=== PATIENT | female | born 1975 | race Caucasian/White ===

== ENCOUNTER → 2018-08-21 13:44 | Outpatient (CLI) | payer MEDICAID, SELFPAY ==
[2017-06-13 12:41] VITALS: BMI 36.0
--- NOTE | 2018-08-21 13:48 | RAD_ITS ---
STUDY: X-RAY - LEFT KNEE REASON FOR EXAM: Female, 43 years old. Pain TECHNIQUE: 5 view(s) of the knee. COMPARISON: 03/28/2015 FINDINGS: Spurring along the lateral femoral tibial compartment, femoral notch and tibial spine. Extensive lateral tilting of the patella. There is demineralization of osseous structures. Normal proximal tibiofibular articulation. There is mild degenerative arthrosis of the medial femorotibial compartment. There is mild degenerative arthrosis of the lateral femorotibial compartment. There is moderate degenerative arthrosis of the patellofemoral articulation. There is a soft tissue prominence in the suprapatellar region suggesting a small volume joint effusion. The soft tissue structures are unremarkable. RAD/Knee 4 or More Views IMPRESSION: Extensive tilting of the patella laterally with subluxation, significant degenerative changes of the lateral patellar femoral joint, small effusion without significant interval change. Electronically Signed: Marce Olivier MD at 4:30 EST , Service support ,
--- OUTSIDE RECORDS SUMMARY | 2018-10-16 18:20 | XMS RPT_ITS | Clinical Summary ---
:1975 Author Organization [employer] [facility], [facility] Address [address] [place] [address] Phone Care Team Providers Name Role Phone Lucretia Peña Unavailable Conditions or Problems Problem Name Problem Onset Status Entry Provider Comment Standard Annotate Code Date Date Description History of 30180835048 Active Linus Smiley History of total knee 05 (SNOMED 11/13 Ish total knee arthroplasty CT) arthroplasty Orthopaedic 556755127 Active Linus Smiley Aftercare aftercare (SNOMED CT) 11/13 Ish Knee pain, 55354073 Active Linus Smiley Knee pain right (SNOMED CT) 09/25 Ish OA of right 786857737 Active Linus Smiley Localized, knee (SNOMED CT) 09/25 Ish primary osteoarthritis Knee pain, 86383800 Resolved Taye A Knee pain right (SNOMED CT) 09/25 09/25 Millie DO Tobacco use 553953748 Active Taye A Tobacco user (SNOMED CT) 06/08 06/08 Millie DO COPD 66427151 Active Taye A Chronic (SNOMED CT) 06/08 06/08 [facility] obstructive DO lung disease Substance 59950057 Active Taye A Substance abuse abuse (SNOMED CT) 05/19 05/19 Millie DO Menorrhagia 003851705 Resolved Taye A Menorrhagia (SNOMED CT) 04/01 04/01 Millie DO Constipation 94223727 Active Taye A Constipation (SNOMED CT) 05/09 05/09 Millie DO Pelvic pain 25197029 Active Taye A Pain in pelvis (SNOMED CT) 05/09 05/09 Millie DO Obesity 960530120 Active Taye A Obesity (SNOMED CT) 04/01 04/01 Millie DO Menorrhagia 522878399 Removed Taye A Menorrhagia (SNOMED CT) 04/01 04/01 Millie DO Degenerative 59602776 Active Taye A Intervertebral disc (SNOMED CT) 04/01 04/01 Millie disc disorder disease, 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, with myelopathy myelopathy Biceps 268885907 Active Linus S Biceps tendinitis (SNOMED CT) 02/02 02/02 Ish tendinitis Rotator cuff S43.429A Active Lara E Sprain of (capsule) (ICD-10-CM) 01/24 01/31 Frase unspecified sprain rotator cuff capsule, initial encounter IMPINGEMENT, 726.2 Active Lara E Other SHOULDER (ICD-9-CM) 01/24 01/31 Frase affections of shoulder region, not elsewhere classified Shoulder 719.41 Active Sandra Stoner Pain in joint pain, left (ICD-9-CM) 01/24 01/24 Gaviria involving shoulder region OTHER 509714034 Active Linus Smiley Follow-up ORTHOPEDIC (SNOMED CT) 10/13 10/16 Ish orthopedic AFTERCARE assessment Unspecified 41466127 Active Linus Smiley Derangement of internal (SNOMED CT) 09/25 09/25 Ish knee derangement of knee OSTEOARTHRIT 684744457 Active Linus S Osteoarthritis IS, KNEE (SNOMED CT) 09/25 09/25 Ish of knee Knee pain, 01747242 Removed Linus S Knee pain right (SNOMED CT) 09/25 09/25 Ish Medications Medication Instructions Start Stop Generic Name NDC Provider Date Date AZITHROMYCIN 250 2 PO on day 1 AZITHROMYCIN 74758800770 Taye A MG TABS then 1 PO daily /11/02 Millie on days 2-5 DO GABAPENTIN 300 MG One tablet by GABAPENTIN 51501158435 Taye A CAPS mouth three Millie times daily as DO needed for pain CYCLOBENZAPRINE One tablet by CYCLOBENZAPRINE 84520961383 Taye A HCL 10 MG TABS mouth daily at HCL Millie night as needed DO for muscle pain COMMIT 2 MG LOZG 1 PO hourly as NICOTINE 04014902685 Taye A needed for POLACRILEX Millie cravings DO BUPROPION HCL ER One tablet by BUPROPION HCL 51752600094 Taye A (SMOKING DET) 150 mouth twice / (SMOKING DETER) Millie MG [id number] daily for DO smoking cessation OXYCODONE-ACETAMIN One tablet as OXYCODONE-ACETAMI 47035552143 Taye A OPHEN 10-325 MG [facility] 05/[facility] TABS hours for DO severe pain CYCLOBENZAPRINE 1-2 tablets CYCLOBENZAPRINE 23901499198 Taye A HCL 5 MG TABS three times a HCL day as needed DO OXYCODONE-ACETAMIN One tablet as OXYCODONE-ACETAMI 04901593759 Taye A OPHEN 10-325 MG needed every 04/16 NOPHEN Millie TABS hours for DO severe pain up to 5 tablets daily OXYCODONE-ACETAMIN One tablet by OXYCODONE-ACETAMI 05938464313 Taye A OPHEN 7.5-325 MG mouth every 04/06 NOPHEN Millie TABS hours as needed DO for severe pain NAPROSYN 500 MG One tablet by NAPROXEN 10507573897 Linus S TABS mouth Ish times daily NAPROSYN 500 MG One tablet by NAPROXEN 52112656370 Taye A TABS mouth 04/08 Millie times daily DO CYCLOBENZAPRINE 1-2 tablets CYCLOBENZAPRINE 78684677827 Taye A HCL 5 MG TABS three times 04/08 HCL Millie day as needed DO TRAMADOL HCL 50 MG One tablet by TRAMADOL HCL 93362797095 Taye A TABS mouth four Millie times daily DO TRAMADOL HCL 50 MG One tablet by TRAMADOL HCL 77231583755 Taye A TABS mouth 05/19 Millie times daily DO IBUPROFEN 200 MG 4 tablets three IBUPROFEN 27863873893 Taye A TABS times a day / Millie DO Medications Administered No information available. Allergies, Adverse Reactions, Alerts Allergy Name Reaction Description Start Date Severity Status Provider MICHAELLE Itchy rash Moderate Active Taye A Millie DO Results Date Name Value Unit Range Flag Description Lab Report: CBCD ABS PMNS 7.0 X10 3/UL {Cells}/uL 2.0-7.7 N Absolute Neutrophil count Lab Report: Prothrombin Time w/INR INR 0.9 international normalized ratio (INR) PT RATIO 12.3 SECONDS 11.7-14.9 prothrombin time, actual/normal, ratio Lab Report: Partial Thromboplast Time ACTIV PTT 33.0 s 24.1-36.2 activated partial thromboplastin time (aPTT) Lab Report: CBC W/Diff, Automated LYMPHCT AUTO 1.15 X10 3/UL 10*3/mm3 0.83-4.51 lymphocyte count, blood, automated ANC 3.4 X10 3/UL 10*3/mm3 2.0-7.7 neutrophil count, blood IMM GRANU % 0.000 % 0.0-0.9 immature granulocytes, percentage of total cells, blood BASOPHIL % 1.0 % 0-1 basophils as percent of blood leukocytes EOSINOPHIL % 4.2 % 0-5 eosinophils as percent of blood leukocytes MONOCYTE % 7.1 % 0-10 monocytes as percent of blood leukocytes LYMPHS % 22.1 % 19-41 lymphocytes as percent of blood leukocytes PMN % 65.6 % 47-70 neutrophils as percent of blood leukocytes Lab Report: Alcohol, Blood (Medical)-Serum ALCOHOL, BLD 6.0 mg/dL alcohol, blood Replaced Document: (P) ,Serum,hCG Quali. BETA-HCG QL NEGATIVE 0-9 Nonpreg beta HCG, serum, qualitative Lab Report: ,Serum,hCG Quali. BETA-HCG QN < 1 mIU/mL m[iU]/mL =>Qualitative beta HCG, serum, quantitative Lab Report: Urinalysis, Complete CAITLYN SED UR 3+ amorphous sediment, urine MUCUS URINE 0 SEEN <or=2+ mucus on urinalysis BACTURMICRO 0 SEEN /hpf /[HPF] None Seen bacteria, urine, microscopic EPI CELL UR 0-5 SEEN /[LPF] 5-10 epithelial cells, urine RBCS MICRO U 0 SEEN 0-5 RBC urine by microscopy U/A,WBS,C&S 0 SEEN 0-5 Urinalysis, white blood cells, culture and sensitivity Lab Report: Urine Drug Screen (VISTA) THC URINE POSITIVE ng/mL < 50 ng/mL H cannabinoid screen, urine PHENCY SCR U NEGATIVE < 25 ng/mL phencyclidine screen, urine OPIATES UR POSITIVE < 300 ng/mL H opiates, urine, semiquantitative METHADONEURN NEGATIVE < 300 ng/mL Methadone screen, urine ECSTASYURINE NEGATIVE < 500 ng/mL Ecstasy (MDMA) Screen, urine COCAINE UR POSITIVE < 300 ng/mL H cocaine, urine BENZODIAZ UR NEGATIVE < 200 ng/mL benzodiazepine screen, urine BARBITURA UR NEGATIVE < 200 ng/mL barbiturates screen, urine AMPHETAMI UR NEGATIVE <1000 ng/mL amphetamine screen, urine Lab Report: Urinalysis, Routine (Dipstick) WBC DIPSTK U Negative Negative leukocyte esterase, urine, by dipstick OCC BLD UR Negative Negative Occult Blood, urine NITRITE UA Negative Negative Nitrite Urine UROBILIURDIP Normal mg/dL Normal urobilinogen, urine, by dipstick PROTEIN, URN Negative Negative Albumin [Presence] in Urine PH URINE 6.0 5.0 - 8.0 pH, urine, semiquantitative SPEC GR URIN 1.015 1.002-1.030 specific gravity, urine KETONES URN Negative Negative ketones, urine, by test strip BILIRUBIN UR Negative Negative bilirubin, urine GLUCOSE UA Normal mg/dL Normal Glucose Urine CLARITY UR Clear Clear clarity, urine, point UA COLOR Yellow Yellow urine color Microbiology: MRSA/SAID SCREEN [id number] . GE use only - for [employer] import when terms are not otherwise specified Lab Report: CBC-Complete Blood Cnt No Diff MPV 9.3 fL 6.2-12.0 mean platelet volume PLATELETS 294 10*3/mm3 150-450 platelet count RDW-SD 46.9 fL 35.1-43.9 H red blood cell distribution width, size density RDW 13.5 % 11.6-14.6 red blood cell distribution width MCHC RBC 33.1 G/GL g/dL 32-36 mean corpuscular hemoglobin concentration, RBC MCH 31.8 pg 27.0-32.0 mean corpuscular hemoglobin, RBC MCV 96.1 fL 81-99 mean corpuscular volume, RBC HCT 36.9 % 37-47 L hematocrit, blood HGB 12.2 g/dL 12.0-15.0 hemoglobin, blood RBC M/UL 3.84 10*6/uL 4.2-5.4 L red blood count WBC BLOOD 14.6 10*9/L 4.4-11.0 H leukocyte (white blood cells) count, blood Lab Report: Basic Metabolic Profile (BMP) ANION GAP 9 5-15 anion gap, serum CO2 27.0 mmol/L 21.0-32.0 carbon dioxide, venous blood CHLORIDE 98 mmol/L 98-107 chloride, serum POTASSIUM 3.7 mmol/L 3.5-5.1 potassium, serum SODIUM 134 mmol/L 136-145 L sodium, serum CALCIUM 7.7 mg/dL 8.5-10.1 L calcium, serum BUN/CREAT 12.2 RATIO 10-20 urea nitrogen/creatinine ratio, serum CCVCREABSA 92.00 mL/min calculated corrected value of creatinine clearance with body surface area GFRAA 99 mL/min >60 Glomerular Filtration rate GFR EST 82 mL/min >60 estimated glomerular filtration rate CREATININE 0.82 mg/dL 0.55-1.02 creatinine, serum BUN 10 mg/dL 7-18 urea nitrogen, blood GLUCOSE SER 109 mg/dL 70-110 blood glucose Office Visit MEDS REVIEW Done Documentation of current medications (procedure) 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 Dietary management education, guidance, and counseling (procedure) SMOK ADVICE yes Smoking cessation education (procedure) ORALTOBACUSE Never Tobacco smoking status NHIS SMOK STATUS Current every day smoker Tobacco use [facility] Plan of Care Type Date Detail Referral Transition of Care Florecita Johnson MD, [address] [facility], [address], [place], [address] Referral Transition of Care Florecita Johnson MD, [address] [facility], [facility] [address], [place], [address] Referral Physical [facility], [address] [place] [address], [address] Referral [facility] Therapy [facility], [address] [place] [address], [address] Referral [facility] Therapy [facility], [address] [place] [address], [address] Referral Physical Therapy [facility] [address] [place] [address], [address] Referral Pain Management Traci Solano, [address] [place] [address], [address], [place], [address] Referral [facility] Therapy [facility], [address] [place] [address], [address] Pending order X-Ray, Knee Pending order X-Ray, Knee Pending order X-Ray, Knee Pending order MRI Joint Upper Extremity Pending order X-Ray, Shoulder Pending order X-Ray, Knee Procedures Code Procedure Name Date Entry Date CPT-19135 X-Ray, Knee Pain Management Pain Management Physical Therapy Physical Therapy General CPT-57016 MRI Joint Upper Extremity CPT-06190 X-Ray, Shoulder CPT-93524 Arthrocentesis, aspiration/injection; major joint shoulder, hip, knee CPT-27453 X-Ray, Knee Vital Signs Date Name Value Unit Description BMI (Body Mass Index) 32.63 kg/m2 Body Mass Index [Ratio] Body Temperature 98.4 [degF] temperature E&M BP Diastolic 82 mm[Hg] blood pressure, diastolic - 8462-4 BP Systolic 136 mm[Hg] blood pressure, systolic - 8480-6 Heart Rate 70 /min pulse rate E&M - 8867-4 Respiratory Rate 16 /min respiratory rate E&M - 9279-1 Weight Measured 214.6 [lb_av] weight E&M - 3141-9 BSA (Body Surface Area) 2.14 body surface area O2 % BldC Oximetry 100 % oxygen saturation, oximetry Height 68 [in_us] height E&M - 8302-2
--- OUTSIDE RECORDS SUMMARY | 2018-10-16 18:20 | XMS RPT_ITS ---
:1975 Author Organization [facility] Care Team Providers Name Role Phone MARQUES OJEDA MD Attending Unavailable DR. DARREL PINTO DO Primary Care Unavailable Samantha Allen Attending Unavailable Darrel Pinto Referring Unavailable Samantha Allen Attending Unavailable Samantha Allen Referring Unavailable Darrel Pinto Primary Care Unavailable PROBLEMS PROBLEMS DATE TYPE CONDITION / CODE ATTENDING STATUS SOURCE 08/21/2018 Unknown M25.562 - Pain in [place], Active [place] left knee / [facility] M25.562(ICD-10) Hospital Repository 08/21/2018 Unknown M17.12 - [place], Active [place] Unilateral [facility] osteoarthritis, Repository left knee / M17.12(ICD-10) PROCEDURES PROCEDURES No Procedure Records FoundRESULTS RESULTS ORTHOPEDIC VISIT Observed: 09/03/2018 Status: F Source: [place] REPORT 5:46 PM [facility] REPOSITORY [facility] [address] [place] [address] Road [address] [place] [address] OFFICE VISIT Date of Service: 08/21/18 MR#: [id number] Acct: [id number] Name: KATARZYNA GRIMM Rep #: [id number] : 1975 Provider: Samantha Allen DO Age/Sex: 43/F Location: [facility] Status: Signed Intake Intake Visit Reasons: LEFT KNEE Is patient in pain?: Yes Allergies hydrocodone bitartrate [From Vicodin] Allergy (Verified 08/21/18 13:37) Itching PFSH Social History Smoking Status: Never smoker HPI LEFT KNEE: Details: KATARZYNA GRIMM is a 43 year old F here today for left knee pain. She states she has had knee pain for the past 6 weeks. She denies any known injury. Patient has increased pain over her anterior knee and around her patella. Patient has popping and clicking. She is unable to squat or kneel due to her pain. Patient denies any xrays, MRI, injections or physical therapy. She states that she takes ibuprofen for pain. ROS Const Reports system reviewed and no additional complaints, except as docu Eyes Reports system reviewed and no additional complaints, except as docu ENT Reports system reviewed and no additional complaints, except as docu Card Reports system reviewed and no additional complaints, except as docu Resp Reports system reviewed and no additional complaints, except as docu GI Reports system reviewed and no additional complaints, except as docu Reports system reviewed and no additional complaints, except as docu Musc Reports joint pain, Reports joint swelling, Reports limited joint movement Skin/Breast Reports system reviewed and no additional complaints, except as docu Neuro Yes system reviewed and no additional complaints, except as docu Psych Reports system reviewed and no additional complaints, except as docu Endo Reports system reviewed and no additional complaints, except as docu Ortho Exam Left Knee Skin/Wound: Yes CDI Contralateral Normal: No Swelling: Yes Homans Sign: No Knee ROM: Yes ROM-Extension -20 to 0, Yes ROM-Flexion 0-140 (120) Examination: Yes med jt line tenderness, No Balaji's Test, Yes Lat jt line tenderness, Yes Pain with flexion, No Crepitus Office Procedures Ortho Injections Injections Yes Knee Left Details: Obtained consent for injection. Under sterile conditions, aspirated 4cc and injected the patients left knee with a 10cc cocktail of 8cc bupivacaine and 2cc kenalog . The patient tolerated the injection well without any noted complication. Patient should call our office if redness develops, pain worsens or if they have any concerns. Office Freddys Mayra Performing Provider: Samantha Allen DO Administered by: Samantha Allen DO on 08/21/18 14:00 Dose Route Admin Location Lot Number Expiration DateNDC Sewage Screen Operator 80 mg Intra-Articularleft knee [id number] 08/23/19 4431-2077-31 [facility] Assessment AND Plan 1. Primary osteoarthritis of left knee M17.12 Plan xrays show left knee oa, see chart for further details. Explained that her treatment options are do nothing, injections, PT or bracing. Reviewed the risks and benefits of injection today. Patient elects to proceed with injection today. Explained that Dr Orozco can consult with her if the injection fails. Gave the [facility] knee program for HEP. Follow up as needed or sooner if pain, swelling, numbness or associated symptoms, or concerns develop. All questions answered. Patient in agreement of plan. Orders Orders: Medications Discontinued: Kenalog Discontinued Reason: Office Medic80 mg (2 mL) Intra-Articular ONCE 2 mL 0RF NS ation has been Documented as given Plan Detail Other Orders Orders: Coding Level of Care Code Off vis,est,level 4 Diagnoses Primary osteoarthritis of left knee M17.12 Osteoarthritis type: primary Additional Codes railroad hand.knee (01801) 09/03/18 6616 <Electronically signed by Samantha Allen DO> Date Samantha Allen DO Cosigner Signature: Date (if applicable) CC: KNEE 4 OR MORE Observed: 08/21/2018 Status: F Source: MARIAMA RAPP 1:48 PM [facility] REPOSITORY [facility] Imaging Services [facility] [place] [address] Knee 4 or More Views MR#: [id number] Acct: [id number] Name: KATARZYNA GRIMM Rep #: [id number] : 1975 F 43 From: Marce Olivier MD PCP: Darrel Pinto DO Status: REG CLI Study: Knee 4 or More Views Date of Exam: 08/21/18 Exam# [id number] Ordering Dr: Samantha Allen DO STUDY: X-RAY - LEFT KNEE REASON FOR EXAM: Female, 43 years old. Pain TECHNIQUE: 5 view(s) of the knee. COMPARISON: 03/28/2015 FINDINGS: Spurring along the lateral femoral tibial compartment, femoral notch and tibial spine. Extensive lateral tilting of the patella. There is demineralization of osseous structures. Normal proximal tibiofibular articulation. There is mild degenerative arthrosis of the medial femorotibial compartment. There is mild degenerative arthrosis of the lateral femorotibial compartment. There is moderate degenerative arthrosis of the patellofemoral articulation. There is a soft tissue prominence in the suprapatellar region suggesting a small volume joint effusion. The soft tissue structures are unremarkable. RAD/Knee 4 or More Views IMPRESSION: Extensive tilting of the patella laterally with subluxation, significant degenerative changes of the lateral patellar femoral joint, small effusion without significant interval change. Electronically Signed: Marce Olivier MD at 4:30 EST , Service support , CC: Samantha Allen DO; Darrel Pinto DO Car Sealer: Signed ALLERGIES ALLERGIES DATE TYPE / CODE NAME / CODE REACTION SEVERITY SOURCE 08/21/2018 Drug hydrocodone Itching Unknown [place] Allergy/416 bitartrate/[id number] [facility] 393143[facility] ED CT) Repository ENCOUNTERS ENCOUNTERS ADMIT/DISCHARGE ACCOUNT NUMBER ADMITTING ENCOUNTER LOCATION SOURCE CLASS 08/21/2018 [id number] Ambulatory [place] Mari[facility] ding:HPRAD Repository 08/21/2018/08/21/20 [id number] [place] [address] [facility] Repository 08/12/2018/08/12/20 [id number] Emergency BBuilding:ER [address] Repository PAYERS PAYERS ENCOUNTER GUARANTOR PAYER SUBSCRIBER SOURCE 08/21/2018 KATARZYNA Osorio Primary KATARZYNA Osorio [place] [id number] [place] Insurance:CARESOURCEP WEAVERDOB: [facility] Number: [id number] [id number] Repository [address]Omz: (330) Date:2018-08-21P O [phone] () [address]ATTN: [place] [address]JY: 08/21/2018 Secondary NOT GIVENUNK [place] Insurance:SELF PAY [facility] [place] Number: Effective Repository Date:2018-08-21 08/21/2018 KATARZYNA Osorio [facility] KATARZYNA [facility] [id number] [place] Insurance:CARESOURCEP WEAVERDOB: [facility] Number: [id number] [id number] Repository [address]Ztu: ([phone]) Date:2018-07-30 O [phone] () [address]ATTN: [place] [address]CU: 08/21/2018 Secondary NOT GIVENUNK [place] Insurance:SELF PAY [facility] [place] Number: Effective Repository Date:2018-08-21 08/12/2018 KATARZYNA Osorio [facility] Insurance:CARESOURCE WEAVERDOB: [facility] [id number] [employer] Number: [id number] Repository [place] [id number] 2 [place] [facility] [place] Date:2018-08-12 - [place], [place] [address]Ecf: [phone] [id number]: () Name:[phone] [place] [address] ()Tel: [phone]: () [phone]
== END ==
PROVIDERS: Family Provider Family Medicine; PCP Family Medicine; Referring Provider Orthopaedic Surgery; Visit Provider Orthopaedic Surgery
DX: M25.562 Pain in left knee (principal)
CPT/HCPCS: 73564

== ENCOUNTER 2019-02-13 01:37 | Inpatient (IN) | payer SELFPAY ==
[2019-02-13] VITALS (15 sets, daily range): BP systolic 122–144; BP diastolic 78–86; PULSE 66–85; RESP 15–21; TEMP 36.4–36.9; O2SAT 96–100; BMI 32.0
--- NOTE | 2019-02-13 01:45 | ED.RN ---
CALLED FOR EKG PER RN REQUEST, PULLED OLD EKGS FOR
--- NOTE | 2019-02-13 01:54 | EKG12_ITS ---
Test Reason : CHEST PAIN Blood Pressure : / mmHG Vent. Rate : 080 BPM Atrial Rate : 080 BPM P-R Int : 120 ms QRS Dur : 108 ms QT Int : 380 ms P-R-T Axes : 082 078 064 degrees QTc Int : 438 ms Normal sinus rhythm Normal ECG Confirmed by HANNAH HERMOSILLO ([id number]), development editor DALILA RICE ([id number]) on 02/19/2019 8:48:18 AM Referred By: CHULA Confirmed By:HANNAH HERMOSILLO
--- NOTE | 2019-02-13 01:54 | RAD_ITS ---
STUDY: X-RAY CHEST REASON FOR EXAM: Female, 44 years old. Chest pain. TECHNIQUE: PA and lateral views of the chest. COMPARISON: Chest radiograph dated May 07, 2017. FINDINGS: Cardiac monitoring leads are present. The lungs are clear and hyperexpanded. There is no demonstrated pleural abnormality. Normal size heart. Normal mediastinum and lissa. There is prominence of the pulmonary hilar arteries without peripheral pulmonary vascular congestion, suggesting pulmonary hypertension. There is atherosclerotic tortuosity of the aortic arch and descending thoracic aorta. There is demineralization of the osseous structures. Normal visualized ribs, clavicles, and shoulders. There is no demonstrated abnormality of the visualized soft tissue structures of the upper abdomen. RAD/Chest PA and Lateral IMPRESSION: No radiographic evidence of acute cardiopulmonary disease. Electronically Signed: Dary Hadley MD at 3:23 EDT , Service support ,
[2019-02-13] MEDS: LORazepam 2 MG/ML Syringe IV (02:05)
[2019-02-13] MEDS: Aspirin 81 MG TAB.CHEW 324 MG PO (02:05)
[2019-02-13 02:15] LABS: Absolute Lymphocyte Count 2.59 X10^3/ul (0.83-4.51); Basophil# 0.06 X10^3/uL; Basophil% 0.8 % (0-1); Eosinophils% 2.7 % (0-5); Hematocrit 37.3 % (37-47); Hemoglobin 13.3 g/dl (12.0-15.0); Lymphocyte # 2.59 X10^3/ul (4.0); Mean Corp Hgb Conc 35.7 g/gl (32-36); Mean Corpuscular Hgb 32.4 pg (27.0-32.0); Mean Platelet Vol. 10.1 fl (6.2-12.0); Monocyte# 0.57 X10^3/uL; Monocyte% 7.7 % (0-10); Neutrophil # 3.97 X10^3/uL (2.7-7.7); Neutrophil % 53.7 % (47-70); Platelet Count 221 K/mm3 (150-450); RBC Distribution Width CV 12.4 % (11.6-14.6); RBC Distribution Width SD 40.8 fl (35.1-43.9); White Blood Count 7.4 K/mm3 (4.4-11.0)
[2019-02-13 02:16] LABS: POSITIVE COUNT NO; POSITIVE DIFFERENTIAL NO; POSITIVE MORPHOLOGY NO
[2019-02-13 02:28] LABS: AST(SGOT) 12 U/L (15-37); Alanine Aminotransfer ALT/SGPT 16 U/L (13-56); Albumin, Serum 3.3 g/dL (3.2-5.0); Alkaline Phosphatase 89 U/L (45-117); Anion Gap 7 (5-15); BUN 14 mg/dL (7-18); BUN/Creat Ratio 18.6 RATIO (10-20); Bilirubin, Direct 0.13 mg/dL (0.00-0.30); Calcium,Total 8.2 mg/dL (8.5-10.1); Chloride 108 mmol/L (98-107); Creatinine, Serum 0.75 mg/dL (0.55-1.02); EST Glomerular Filtration Rate 90 mL/min (>60); Est Glom Filt Rate - Afr Amer 108 mL/min (>60); Estimated Creatinine Clearance 97.57 ml/min; Globulin 3.2 g/dL (2.2-4.2); Glucose 119 mg/dL (74-106); Potassium 3.5 mmol/L (3.5-5.1); Protein, Total 6.5 g/dL (6.4-8.2); Sodium Level 140 mmol/L (136-145)
[2019-02-13 02:42] LABS: Alcohol, Blood (Medical)-Serum < 3.0 mg/dL
--- NOTE | 2019-02-13 02:44 | ED.VISSUMM ---
- ER Visit Summary Date of Service: 02/13/19 Chief Complaint: Chest pain History of Present Illness: The patient is a 44 F who presents with chest pain. This began about 18 hours before presentation. She states she first noticed pain around 9 AM yesterday. She describes it as a heaviness in the center of her chest. She also reports nausea and dry heaving and diarrhea. She is an alcoholic and normally drinks 20-30 beers a day. Her last drink was 9 AM yesterday. She also had reported possible seizure. She states that she woke up on the floor. However this was actually prior to her most recent drink and she states she drank normally the day before and that night. Physical Examination: Afebrile vitals normal Patient tremulous and anxious Mild diaphoresis Heart regular rate and rhythm Lungs clear Abdomen soft 2+ radial pulses Test Results: EKG shows sinus rhythm at a rate of 80. Alcohol is negative. CBC BMP hepatic function unremarkable and troponin is negative. Chest x-ray shows no acute process. Emergency Department Course and Treatment: Work-up as above unremarkable. Patient does appear to be in alcohol withdrawal. Her CIWA score is 22. I do feel she requires medical hospitalization for alcohol withdrawal. Patient will be discussed with the hospitalist and admitted. Treatment Plan: [] Disposition: Admit Impression: Alcohol withdrawal Chest pain This note was generated with [employer] dictation software. It may contain incorrect words, spelling, and punctuation that were not noted in review of the chart prior to signing ED Disposition - Plan for ED Patient: Referrals: Taye Pinto DO [Primary Care Provider] -
--- NOTE | 2019-02-13 03:22 | HP.PCM_ITS ---
Problem List (1) Chest pain Status: Acute (2) Dental abscess Status: Resolved (3) Suicidal ideation Status: Resolved (4) Depression Status: Chronic (5) Alcohol withdrawal Status: Acute (6) Alcohol abuse Status: Chronic History of Present Illness Date of Admission: 02/13/19 Chief Complaint: Chest pain with alcohol withdrawal symptoms The patient is a 44 year old F with history of severe alcohol use and dependence about 20-30 beers daily, last drink was 9 AM on 02/12 came to ER initially with chest pain, persistent, midsternal with radiation to back. It was soon found that patient is in alcohol withdrawal with nausea, dry heaving and diarrhea. She also reported possible seizure. This all history is from the ER physician note and RN who took care of patient. As by the time I went to see the patient, she was already given Ativan and sedated. Patient hardly wakes up with a strong voice and tactile stools but soon falls to sleep. She was last admitted in 2017 for alcohol withdrawal when she left the hospital peripheral IV line and montserrat Story was called. On she herself removed IV line and was located by the police walking on the street. She has history of multiple ER visits for suicidal ideation, depression and alcohol use and withdrawal. Past Medical History Past Medical History (Chronic Problems): Chronic Problems Depression (Chronic) Alcohol abuse (Chronic) Allergies hydrocodone bitartrate [From Vicodin] Allergy (Verified 02/13/19 01:41) Itching Home Medications: Ambulatory Orders Medication Instructions Recorded NK 02/13/19 Surgical History: cholecystectomy, - - section. 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 Alcohol withdrawal syndrome VTE Information - Inpt Only VTE Present on Admission: No VTE Mechan Device Prophylaxis: None VTE Pharm Prophylaxis ordered?: Yes Patient Problems: Active and Suspected Problems Chest pain (Acute) - Physical Exam General: - - Sedated with Ativan. Obtunded HEENT: Atraumatic, PERRLA, EOMI, Normocephalic Oral: Dry Mucosa Neck: Supple, No JVD, Negative Carotid Bruits Lungs: Clear to auscultation, Normal air movement, No rhonchi, No wheeze, No rales Cardiovascular: Regular rate, Regular Rhythm, Normal S1, Normal S2, No murmurs Abdomen: Bowel Sounds Present, Soft, Non Tender, Non-Distended Extremities: No edema, Capillary Refill Less than 3 Seconds Skin: No rashes, No breakdown Musculoskeletal: No Tenderness to Palpation of Joints or Extremities Neurological: Cranial nerves II-XII grossly intact Psych/Mental Status: Agitated, Anxious, Depressed, Restless Vital Signs Temp Pulse Resp BP Pulse Ox 98.2 F 78 19 H 138/80 H 100 02/13/19 01:38 02/13/19 03:00 02/13/19 03:00 02/13/19 03:00 02/13/19 03:00 Oxygen Flow Rate (L/min) 2 Oxygen Delivery Method Nasal Cannula Weight: 210 lb 12.191 oz Body Mass Index (BMI) 32.0 Laboratory Tests Past 24 Hrs 02/13/19 02/13/19 02/13/19 01:50 01:50 02:09 WBC 7.4 RBC 4.10 L Hgb 13.3 Hct 37.3 MCV 91.0 MCH 32.4 H MCHC 35.7 RDW 12.4 RDW Differential 40.8 Plt Count 221 MPV 10.1 Immature Gran % (Auto) 0.100 Neut % (Auto) 53.7 Lymph % (Auto) 35.0 [place] % (Auto) 7.7 Eos % (Auto) 2.7 Baso % (Auto) 0.8 Absolute Neuts (auto) 4.0 Absolute Lymphs (auto) 2.59 Total Counted Not Reportable Sodium 140 Potassium 3.5 Chloride 108 H Carbon Dioxide 25.0 Anion Gap 7 BUN 14 Creatinine 0.75 Estim Creat Clear Calc 97.57 Est GFR (MDRD) Af Amer 108 Est GFR (MDRD) Non-Af 90 BUN/Creatinine Ratio 18.6 Glucose 119 H Calcium 8.2 L Total Bilirubin 0.40 Direct Bilirubin 0.13 AST 12 L ALT 16 Alkaline Phosphatase 89 Troponin I < 0.015 Total Protein 6.5 Albumin 3.3 Globulin 3.2 Ethyl Alcohol < 3.0 Assessment/Plan All Active Problems Chest pain (Acute) Dental abscess (Resolved) Suicidal ideation (Resolved) Alcohol withdrawal (Acute) The patient is a 44 year old F with history of severe alcohol use and dependence about 20-30 beers daily, last drink was 9 AM on 02/12 came to ER initially with chest pain, persistent, midsternal with radiation to back. It was soon found that patient is in alcohol withdrawal with nausea, dry heaving and diarrhea. She also reported possible seizure. In ED, she was found to have CIWA score 22. EKG shows normal sinus rhythm at 80 bpm with no significant change from previous EKG of May 07, 2017. Troponin is normal. 1. Acute alcohol withdrawal syndrome and seizure with history of chronic alcohol use and dependence: Patient is being admitted in PCU as she had chest pain. On CIWA protocol with Ativan as needed and Librium p.o. schedule and then taper as per [facility] protocol. On IV fluid normal saline. Repeat electrolytes tomorrow morning. GGT ordered. Right upper quadrant sonogram ordered. 2. Atypical chest pain, persistent most probably related to anxiety/panic attack: Serial troponin enzymes. 2D echo is ordered patient is chronic alcoholic with dependence and to rule out wall motion abnormality. Patient is is in alcohol withdrawal and not stable and cognitive intact for stress test 3. Alcohol withdrawal seizure: Ativan protocol. 4. Anxiety, depression with history of suicidal ideation in the past. Consult [facility] correctional case manager, Lara. Patient will need further rehab. Patient relapsed after she was last admitted in 2016 for alcohol withdrawal syndrome. DVT prophylaxis: On Lovenox 40 mg subcu daily. Discontinue if platelet count drops less than 50,000 or hemoglobin less than 8 g% Code Visit Inpatient E&M: 36250 Init Hosp L3
--- NOTE | 2019-02-13 03:29 | EKG12_ITS ---
Test Reason : CP ADMIT Blood Pressure : / mmHG Vent. Rate : 071 BPM Atrial Rate : 071 BPM P-R Int : 126 ms QRS Dur : 100 ms QT Int : 380 ms P-R-T Axes : 076 076 058 degrees QTc Int : 412 ms Normal sinus rhythm Normal ECG When compared with ECG of 13-FEB-2019 01:42, MANUAL COMPARISON REQUIRED, DATA IS UNCONFIRMED Confirmed by KAROLINA IRELAND, RONALD ([id number]), editor continuity and script JESSE ROMERO ([id number]) on 02/18/2019 12:07:36 PM Referred By: DR SILVERIO Confirmed By:RONALD TURCIOS MD
[2019-02-13 03:45] LABS: Internal QC Validated? YES +Cl - CLEAR BKGD; Pregnancy, Serum, hCG Quali. NEGATIVE Negative
[2019-02-13] MEDS: 0.9% Normal Saline 1,000 ML 100 ML IV ×2 (04:13→14:28)
--- NOTE | 2019-02-13 04:22 | NURSING ---
This RN was unable to assess patients CIWA due to her not being able to stay awake long enough to answer questions or assess patient.
[2019-02-13] MEDS: chlordiazePOXIDE 25 MG Capsule 50 MG PO ×3 (04:29→15:15)
[2019-02-13 05:13] LABS: Absolute Lymphocyte Count 2.47 X10^3/ul (0.83-4.51); Absolute Neutrophil Count 3.3 X10^3/uL (2.0-7.7); Basophil# 0.05 X10^3/uL; Basophil% 0.8 % (0-1); Eosinophil# 0.23 X10^3/uL; Eosinophils% 3.5 % (0-5); Hematocrit 36.9 % (37-47); Hemoglobin 12.8 g/dl (12.0-15.0); Lymphocyte # 2.47 X10^3/ul (4.0); Lymphocyte % 37.4 % (19-41); Mean Corp Hgb Conc 34.7 g/gl (32-36); Mean Corpuscular Hgb 31.8 pg (27.0-32.0); Mean Corpuscular Volume 91.8 fL (81-99); Mean Platelet Vol. 9.7 fl (6.2-12.0); Monocyte# 0.58 X10^3/uL; Monocyte% 8.8 % (0-10); Neutrophil # 3.25 X10^3/uL (2.7-7.7); Neutrophil % 49.2 % (47-70); Platelet Count 191 K/mm3 (150-450); RBC Distribution Width CV 12.7 % (11.6-14.6); RBC Distribution Width SD 41.9 fl (35.1-43.9); Red Blood Count 4.02 M/mm3 (4.2-5.4); White Blood Count 6.6 K/mm3 (4.4-11.0)
[2019-02-13 05:14] LABS: POSITIVE COUNT NO; POSITIVE DIFFERENTIAL NO; POSITIVE MORPHOLOGY NO
[2019-02-13 05:24] LABS: Prothrombin Time (Protime)PT. 13.4 SECONDS (11.7-14.9)
[2019-02-13 05:38] LABS: Cholesterol 147 mg/dL (200); GGTP 16 U/L (5-55); High Density Lipoprotein 49 mg/dL; Magnesium 2.4 mg/dL (1.6-2.6); Thyroid Stim Hormone (TSH) 1.51 uIU/mL (0.358-3.74); Triglycerides 114 mg/dL; Very Low Density Lipoprotein 23 mg/dL (5-40)
--- NOTE | 2019-02-13 05:55 | US_ITS ---
STUDY: ABDOMINAL ULTRASOUND - RIGHT UPPER QUADRANT REASON FOR VISIT: Female, 44 years old. History of alcoholic hepatitis. TECHNIQUE: Ultrasound evaluation of the right upper quadrant was performed with real-time and static sharma-scale imaging. TECHNICAL QUALITY: Adequate. COMPARISON: None. FINDINGS: Liver: The liver measures 13.1 cm. There is increased echogenicity consistent with fatty infiltration. The bile ducts are within normal limits. There is hepatic color flow. The direction of portal flow is hepatopetal. There is no demonstrated mass lesion. Gallbladder: The patient is status post cholecystectomy. Common Bile Duct (C.B.D.): The common bile duct is dilated and measures 9.8 mm. Pancreas: Normal size of the head, body and tail of the pancreas. There is normal echogenicity of the pancreas. There is no demonstrated pancreatic mass or cyst. Right Kidney: Normal size of the right kidney. The right kidney measures 10.7 cm x 4.4 cm x 4.4 cm. Normal renal cortex. The right cortex measures 1.3 cm. There is no demonstrated renal mass or cyst. There is no right hydronephrosis. US/Abdomen Limited IMPRESSION: Heterogeneous appearance of the liver. Status post cholecystectomy. Dilated common bile duct. Electronically Signed: David Laird, at 10:57 EDT , Service support ,
--- NOTE | 2019-02-13 05:55 | ECHOD_ITS ---
Reason For Study: Chest Pain Procedure This was a 2D Doppler, Color Flow transthoracic echocardiogram. Technically difficult study, patient was unable to hold still for testing. The study was technically difficult. Exam performed portable in patient room. Left Ventricle Normal LV size. Left ventricular systolic function is normal. The estimated ejection fraction is 60 %. No evidence for diastolic dysfunction. No regional wall motion abnormalities noted. Right Ventricle Normal RV size. Normal systolic function. Atria Normal left atrium. Normal right atrium. No doppler evidence for ASD. Mitral Valve There is no mitral annular calcification. Normal mitral valve. Trivial mitral valve insufficiency. Tricuspid Valve Normal tricuspid valve. Trivial tricuspid valve insufficiency. Right ventricular systolic pressure estimated to be 29 mmHg. Aortic Valve Trisinus/trileaflet aortic valve. Normal aortic valve. Pulmonic Valve The pulmonic valve is not well visualized. Great Vessels The aortic root is not well visualized. Pericardium/Pleural No pericardial effusion. MMode/2D Measurements & Calculations LVIDd: 4.7 cm IVSd: 1.1 cm LA dimension: 2.9 cm LVIDs: 3.1 cm LVPWd: 0.93 cm FS: 33.4 % LAV(MOD-sp4): 27.6 ml LA A4 area: 13.6 cm2 RA A4 area: 12.2 cm2 Time Measurements MV dec time: 0.19 sec Doppler Measurements & Calculations MV E max harjit: 87.2 cm/sec Lat Peak E' Harjit: 14.5 cm/sec Med Peak E' Harjit: 12.8 cm/sec MV A max harjit: 73.2 cm/sec E/E' lat: 6.0 E/E' med: 6.8 MV E/A: 1.2 MV V2 max: 102.1 cm/sec MV P1/2t max harjit: 101.1 cm/sec Ao V2 max: 126.2 cm/sec MV max P.2 mmHg MV P1/2t: 114.0 msec Ao max P.4 mmHg MV V2 mean: 62.0 cm/sec MV dec slope: 259.9 cm/sec2 MV mean P.8 mmHg MVA(P1/2t): 1.9 cm2 MV V2 VTI: 31.9 cm LV V1 max: 98.9 cm/sec PA V2 max: 88.6 cm/sec TR max harjit: 253.3 cm/sec LV V1 max P.9 mmHg TR max P.7 mmHg Interpretation Summary The study was technically difficult. Left ventricular systolic function is normal. The estimated ejection fraction is 60 %. Trivial mitral valve insufficiency. Trivial tricuspid valve insufficiency. Right ventricular systolic pressure estimated to be 29 mmHg. No evidence for diastolic dysfunction. Ordering Physician: Sathish Pike Referring Physician: Taye Pinto Performed By: Hubert Kemp RCS
[2019-02-13 06:21] LABS: Bedside Glucose 86 mg/dL (70-110)
[2019-02-13] MEDS: Folic Acid 1 MG Tablet PO (10:41)
[2019-02-13] MEDS: Enoxaparin 40 MG/0.4 ML Syringe SC (10:41)
[2019-02-13] MEDS: Pantoprazole Sodium 40 MG Tablet PO (10:41)
[2019-02-13] MEDS: Multivitamins,Therapeutic Tablet 1 TABLET PO (10:42)
[2019-02-13] MEDS: Thiamine Hydrochloride 100 MG Tablet PO (10:42)
--- NOTE | 2019-02-13 13:23 | PN_ITS ---
<Sandra Cardoso - Last Filed: 02/13/19 13:24> Patient Problems: Active and Suspected Problems Chest pain (Acute) Subjective: Patient seen and examined. Lethargic. Arouses briefly. Nursing reports patient arouses intermittently and is mildly combative. - Physical Exam General: Lethargic HEENT: Atraumatic, PERRLA, EOMI, Normocephalic Oral: Dry Mucosa Neck: Supple, No JVD, Negative Carotid Bruits Lungs: Clear to auscultation, Normal air movement Cardiovascular: Regular rate, Regular Rhythm, Normal S1, Normal S2, No murmurs Abdomen: Bowel Sounds Present, Soft, Non Tender, Non-Distended, Obese Extremities: No clubbing, No cyanosis, No edema, Capillary Refill Less than 3 Seconds Skin: No rashes, No breakdown Musculoskeletal: No Tenderness to Palpation of Joints or Extremities Neurological: Cranial nerves II-XII grossly intact, Neuro grossly intact Psych/Mental Status: Impulsive, - - Intermittently agitated Vital Signs Temp Pulse Resp BP Pulse Ox 98.0 F 68 18 142/80 H 96 02/13/19 11:09 02/13/19 11:09 02/13/19 11:09 02/13/19 11:09 02/13/19 11:09 Oxygen Flow Rate (L/min) 2.5 Oxygen Delivery Method Room Air Weight: 210 lb 8.663 oz Body Mass Index (BMI) 32.0 Intake and Output for Last 24 Hours 02/11/19 02/12/19 02/13/19 23:59 23:59 23:59 Intake Total 223 / 223 Balance 223 / 223 Laboratory Tests Past 24 Hrs 02/13/19 02/13/19 02/13/19 01:50 01:50 02:09 WBC 7.4 RBC 4.10 L Hgb 13.3 Hct 37.3 MCV 91.0 MCH 32.4 H MCHC 35.7 RDW 12.4 RDW Differential 40.8 Plt Count 221 MPV 10.1 Immature Gran % (Auto) 0.100 Neut % (Auto) 53.7 Lymph % (Auto) 35.0 [place] % (Auto) 7.7 Eos % (Auto) 2.7 Baso % (Auto) 0.8 Absolute Neuts (auto) 4.0 Absolute Lymphs (auto) 2.59 Total Counted Not Reportable PT INR Sodium 140 Potassium 3.5 Chloride 108 H Carbon Dioxide 25.0 Anion Gap 7 BUN 14 Creatinine 0.75 Estim Creat Clear Calc 97.57 Est GFR (MDRD) Af Amer 108 Est GFR (MDRD) Non-Af 90 BUN/Creatinine Ratio 18.6 Glucose 119 H Calcium 8.2 L Magnesium Total Bilirubin 0.40 Direct Bilirubin 0.13 GGT AST 12 L ALT 16 Alkaline Phosphatase 89 Troponin I < 0.015 Total Protein 6.5 Albumin 3.3 Globulin 3.2 Triglycerides Cholesterol LDL Cholesterol VLDL Cholesterol HDL Cholesterol TSH Serum , Qual Ethyl Alcohol < 3.0 02/13/19 02/13/19 02/13/19 02:09 05:04 05:04 WBC 6.6 RBC 4.02 L Hgb 12.8 Hct 36.9 L MCV 91.8 MCH 31.8 MCHC 34.7 RDW 12.7 RDW Differential 41.9 Plt Count 191 MPV 9.7 Immature Gran % (Auto) 0.300 Neut % (Auto) 49.2 Lymph % (Auto) 37.4 [place] % (Auto) 8.8 Eos % (Auto) 3.5 Baso % (Auto) 0.8 Absolute Neuts (auto) 3.3 Absolute Lymphs (auto) 2.47 Total Counted Not Reportable PT 13.4 INR 1.0 Sodium Potassium Chloride Carbon Dioxide Anion Gap BUN Creatinine Estim Creat Clear Calc Est GFR (MDRD) Af Amer Est GFR (MDRD) Non-Af BUN/Creatinine Ratio Glucose Calcium Magnesium Total Bilirubin Direct Bilirubin GGT AST ALT Alkaline Phosphatase Troponin I Total Protein Albumin Globulin Triglycerides Cholesterol LDL Cholesterol VLDL Cholesterol HDL Cholesterol TSH Serum , Qual NEGATIVE Ethyl Alcohol 02/13/19 02/13/19 05:04 07:33 WBC RBC Hgb Hct MCV MCH MCHC RDW RDW Differential Plt Count MPV Immature Gran % (Auto) Neut % (Auto) Lymph % (Auto) [place] % (Auto) Eos % (Auto) Baso % (Auto) Absolute Neuts (auto) Absolute Lymphs (auto) Total Counted PT INR Sodium Potassium Chloride Carbon Dioxide Anion Gap BUN Creatinine Estim Creat Clear Calc Est GFR (MDRD) Af Amer Est GFR (MDRD) Non-Af BUN/Creatinine Ratio Glucose Calcium Magnesium 2.4 Total Bilirubin Direct Bilirubin GGT 16 AST ALT Alkaline Phosphatase Troponin I < 0.015 < 0.015 Total Protein Albumin Globulin Triglycerides 114 Cholesterol 147 LDL Cholesterol 75 VLDL Cholesterol 23 HDL Cholesterol 49 TSH 1.51 Serum , Qual Ethyl Alcohol POC Glucose 02/13/19 06:13 POC Glucose 86 Medical Necessity - Tobacco Use Smoking Status: Current every day smoker Tobacco Use: Cigarettes Assessment/Plan All Active Problems Chest pain (Acute) Dental abscess (Resolved) Suicidal ideation (Resolved) Alcohol withdrawal (Acute) 1. Acute alcohol withdrawal on chronic alcohol abuse with acute alcohol withdrawal seizure- CIWA/Ativan protocol. Abdominal ultrasound completed due to history of alcoholic hepatitis and showed heterogeneous appearance of the liver, status post cholecystectomy, dilated common bile duct. Medical stabilization per protocol. Continue Librium taper, as needed somatic regimen, thiamine, folic acid, multivitamin supplementation. Seizure precautions. GGT within normal limits. 2. Chest pain-suspect secondary to #1. EKG without ST-T changes. Troponin negative. Echocardiogram ordered. Pending echo results, patient may require further stress test when she is through alcohol withdrawal. 3. History of multiple ER visits for suicidal ideation-no current suicidal ideations. 4. Depression-untreated, not on regimen. Recommend outpatient follow-up. 5. Obesity- encouraged diet and lifestyle modifications. DVT prophylaxis-Lovenox subcu This patient was seen by KARAN Can under the supervision of Dr. Chahal. <Cari Chahal - Last Filed: 02/13/19 16:59> - Physical Exam Vital Signs Temp Pulse Resp BP Pulse Ox 98.0 F 68 18 142/80 H 96 02/13/19 11:09 02/13/19 11:09 02/13/19 11:09 02/13/19 11:09 02/13/19 11:09 Oxygen Flow Rate (L/min) 2.5 Oxygen Delivery Method Room Air Weight: 210 lb 8.663 oz Body Mass Index (BMI) 32.0 Intake and Output for Last 24 Hours 02/11/19 02/12/19 02/13/19 23:59 23:59 23:59 Intake Total 919 / 919 Balance 919 / 919 Laboratory Tests Past 24 Hrs 02/13/19 02/13/19 02/13/19 01:50 01:50 02:09 WBC 7.4 RBC 4.10 L Hgb 13.3 Hct 37.3 MCV 91.0 MCH 32.4 H MCHC 35.7 RDW 12.4 RDW Differential 40.8 Plt Count 221 MPV 10.1 Immature Gran % (Auto) 0.100 Neut % (Auto) 53.7 Lymph % (Auto) 35.0 [place] % (Auto) 7.7 Eos % (Auto) 2.7 Baso % (Auto) 0.8 Absolute Neuts (auto) 4.0 Absolute Lymphs (auto) 2.59 Total Counted Not Reportable PT INR Sodium 140 Potassium 3.5 Chloride 108 H Carbon Dioxide 25.0 Anion Gap 7 BUN 14 Creatinine 0.75 Estim Creat Clear Calc 97.57 Est GFR (MDRD) Af Amer 108 Est GFR (MDRD) Non-Af 90 BUN/Creatinine Ratio 18.6 Glucose 119 H Calcium 8.2 L Magnesium Total Bilirubin 0.40 Direct Bilirubin 0.13 GGT AST 12 L ALT 16 Alkaline Phosphatase 89 Troponin I < 0.015 Total Protein 6.5 Albumin 3.3 Globulin 3.2 Triglycerides Cholesterol LDL Cholesterol VLDL Cholesterol HDL Cholesterol TSH Serum , Qual Ethyl Alcohol < 3.0 02/13/19 02/13/19 02/13/19 02:09 05:04 05:04 WBC 6.6 RBC 4.02 L Hgb 12.8 Hct 36.9 L MCV 91.8 MCH 31.8 MCHC 34.7 RDW 12.7 RDW Differential 41.9 Plt Count 191 MPV 9.7 Immature Gran % (Auto) 0.300 Neut % (Auto) 49.2 Lymph % (Auto) 37.4 [place] % (Auto) 8.8 Eos % (Auto) 3.5 Baso % (Auto) 0.8 Absolute Neuts (auto) 3.3 Absolute Lymphs (auto) 2.47 Total Counted Not Reportable PT 13.4 INR 1.0 Sodium Potassium Chloride Carbon Dioxide Anion Gap BUN Creatinine Estim Creat Clear Calc Est GFR (MDRD) Af Amer Est GFR (MDRD) Non-Af BUN/Creatinine Ratio Glucose Calcium Magnesium Total Bilirubin Direct Bilirubin GGT AST ALT Alkaline Phosphatase Troponin I Total Protein Albumin Globulin Triglycerides Cholesterol LDL Cholesterol VLDL Cholesterol HDL Cholesterol TSH Serum , Qual NEGATIVE Ethyl Alcohol 02/13/19 02/13/19 05:04 07:33 WBC RBC Hgb Hct MCV MCH MCHC RDW RDW Differential Plt Count MPV Immature Gran % (Auto) Neut % (Auto) Lymph % (Auto) [place] % (Auto) Eos % (Auto) Baso % (Auto) Absolute Neuts (auto) Absolute Lymphs (auto) Total Counted PT INR Sodium Potassium Chloride Carbon Dioxide Anion Gap BUN Creatinine Estim Creat Clear Calc Est GFR (MDRD) Af Amer Est GFR (MDRD) Non-Af BUN/Creatinine Ratio Glucose Calcium Magnesium 2.4 Total Bilirubin Direct Bilirubin GGT 16 AST ALT Alkaline Phosphatase Troponin I < 0.015 < 0.015 Total Protein Albumin Globulin Triglycerides 114 Cholesterol 147 LDL Cholesterol 75 VLDL Cholesterol 23 HDL Cholesterol 49 TSH 1.51 Serum , Qual Ethyl Alcohol POC Glucose 02/13/19 06:13 POC Glucose 86 Assessment/Plan Patient seen by Sandra RUSSO under my supervision. Patient was admitted for acute alcohol withdrawal. Patient seen and examined. Patient pulled her sheets tightly over her head and refused to answer any questions or to that she is overhead. Unable to do review of systems. She however did allow examination. o/e: Vital Signs Height 5 ft 8 in Weight: 210 lb 8.663 oz Weight in Pounds 210.5 lbs Pulse Ox 98 Temperature 98.5 F Pulse Rate 74 Respiratory Rate 21 Blood Pressure 138/81 Blood Pressure Position Supine - Physical Exam General: Lethargic HEENT: Atraumatic, PERRLA, EOMI, Normocephalic Oral: Dry Mucosa Neck: Supple, No JVD, Negative Carotid Bruits Lungs: Clear to auscultation, Normal air movement Cardiovascular: Regular rate, Regular Rhythm, Normal S1, Normal S2, No murmurs Abdomen: Bowel Sounds Present, Soft, Non Tender, Non-Distended, Obese Extremities: No clubbing, No cyanosis, No edema, Capillary Refill Less than 3 Seconds Skin: No rashes, No breakdown Musculoskeletal: No Tenderness to Palpation of Joints or Extremities Neurological: Cranial nerves II-XII grossly intact, Neuro grossly intact Psych/Mental Status: Impulsive, not very cooperative Plan is continue acute alcohol withdrawal protocol with Ativan. Chest pain which she also came in with has resolved. EKG showed no acute ST changes and troponins were negative. Echocardiogram ordered and is pending. She may benefit from stress test when she is through acute alcohol withdrawal phase. Rest of management as per KARAN Can's note which I have reviewed and endorsed. Code Visit Inpatient E&M: 70237 Subs Hosp L2
[2019-02-13 18:04] LABS: Amphetamine Urine VISTA POSITIVE (<1000 ng/mL); Barbiturate Urine VISTA NEGATIVE (< 200 ng/mL); Benzodiazepine Urine VISTA POSITIVE (< 200 ng/mL); Cocaine Urine VISTA NEGATIVE (< 300 ng/mL); Ecstacy Urine VISTA NEGATIVE (< 500 ng/mL); Methadone Urine VISTA NEGATIVE (< 300 ng/mL); PCP Urine VISTA NEGATIVE (< 25 ng/mL); THC Urine VISTA POSITIVE (< 50 ng/mL); Vista UDS pH Range 6
[2019-02-13] MEDS: LORazepam 2 MG/ML Syringe 1 MG IV ×2 (18:38→23:55)
[2019-02-13] MEDS: 0.9% NaCl Peripheral Flush Adult/Peds IV ×2 (18:40→23:53)
[2019-02-13] MEDS: Methocarbamol 750 MG Tablet PO (20:19)
[2019-02-13] MEDS: Loperamide 2 MG Capsule PO (20:19)
--- NOTE | 2019-02-13 21:51 | NURSING ---
This RN went in to administer librium per the MAR, the patient refused the medication. This RN attempted to explain the reason for the medication but the patient began yelling/screaming. The staff has reapplied the cardiac tele monitor on the patient numerous times but she refuses to keep it on. The patient threw the cardiac tele on the floor. This RN tried to do patients vital signs but the patient refused to allow this RN to asses her at this time. The patient also tore her IV out and refused to have another one inserted.
[2019-02-14] VITALS (8 sets, daily range): BP systolic 115–150; BP diastolic 68–82; PULSE 66–82; RESP 16–20; TEMP 36.4–36.8; O2SAT 95–100
[2019-02-14] MEDS: Buprenorphine HCl 2 MG TAB.SUBL SL ×2 (00:47→17:31)
[2019-02-14 06:47] LABS: Anion Gap 2 (5-15); BUN 11 mg/dL (7-18); BUN/Creat Ratio 18.8 RATIO (10-20); Chloride 112 mmol/L (98-107); Creatinine, Serum 0.58 mg/dL (0.55-1.02); EST Glomerular Filtration Rate 119 mL/min (>60); Est Glom Filt Rate - Afr Amer 145 mL/min (>60); Estimated Creatinine Clearance 126.16 ml/min; Glucose 91 mg/dL (74-106); Magnesium 2.1 mg/dL (1.6-2.6); Potassium 3.9 mmol/L (3.5-5.1); Sodium Level 142 mmol/L (136-145)
[2019-02-14] MEDS: 0.9% Normal Saline 1,000 ML 100 ML IV ×2 (08:48→19:10)
--- NOTE | 2019-02-14 09:00 | NURSING ---
pt lethargic will respond with touch/shaking and loud verbal but will fall back to sleep with snoring. VSS. Morning medications held. will continue to monitor.
--- NOTE | 2019-02-14 10:34 | CASEMGMT ---
SOCIAL WORK DISCUSSED CASE WITH PATIENT'S NURSE. PATIENT LETHARGIC AND UNABLE TO COMPLETE SOCIAL WORK ASSESSMENT AT THIS TIME. EDWARD HAHN, ONSITE HEALTH COACH, EDUCATIONAL AID.
--- NOTE | 2019-02-14 10:35 | PCM.PROGNOTE ---
<Sandra Cardoso - Last Filed: 02/14/19 10:39> Patient Problems: Active and Suspected Problems Chest pain (Acute) Subjective: Patient seen and examined. Remains lethargic. Arouses briefly with light touch and verbal cues. No acute events overnight per nursing. - Physical Exam General: Lethargic HEENT: Atraumatic, PERRLA, EOMI, Normocephalic Oral: Dry Mucosa Neck: Supple, No JVD, Negative Carotid Bruits Lungs: Clear to auscultation, Normal air movement Cardiovascular: Regular rate, Regular Rhythm, Normal S1, Normal S2, No murmurs Abdomen: Bowel Sounds Present, Soft, Non Tender, Non-Distended, Obese Extremities: No clubbing, No cyanosis, No edema, Capillary Refill Less than 3 Seconds Skin: No rashes, No breakdown Musculoskeletal: No Tenderness to Palpation of Joints or Extremities Neurological: Cranial nerves II-XII grossly intact, Neuro grossly intact Psych/Mental Status: Restless - Intermittent Vital Signs Temp Pulse Resp BP Pulse Ox 98.2 F 72 18 121/68 H 97 02/14/19 08:50 02/14/19 08:50 02/14/19 08:50 02/14/19 08:50 02/14/19 08:50 Oxygen Flow Rate (L/min) 2.5 Oxygen Delivery Method Room Air Weight: 210 lb 8.663 oz Body Mass Index (BMI) 32.0 Intake and Output for Last 24 Hours 02/12/19 02/13/19 02/14/19 23:59 23:59 23:59 Intake Total 1374 / 1374 959 / 959 Balance 1374 / 1374 959 / 959 Laboratory Tests Past 24 Hrs 02/13/19 02/14/19 17:22 05:50 Sodium 142 Potassium 3.9 Chloride 112 H Carbon Dioxide 28.0 Anion Gap 2 L BUN 11 Creatinine 0.58 Estim Creat Clear Calc 126.16 Est GFR (MDRD) Af Amer 145 Est GFR (MDRD) Non-Af 119 BUN/Creatinine Ratio 18.8 Glucose 91 Calcium 8.0 L Magnesium 2.1 Urine Opiates Screen POSITIVE H Urine Methadone Screen NEGATIVE Ur Barbiturates Screen NEGATIVE Ur Phencyclidine Scrn NEGATIVE Ur Amphetamines Screen POSITIVE H U Methamphetamin-MDMA NEGATIVE U Benzodiazepines Scrn POSITIVE H Urine Cocaine Screen NEGATIVE U Cannabinoids Screen POSITIVE H Ur Drug Screen Comment Medical Necessity - Tobacco Use Smoking Status: Current every day smoker Tobacco Use: Cigarettes Assessment/Plan All Active Problems Chest pain (Acute) Dental abscess (Resolved) Suicidal ideation (Resolved) Alcohol withdrawal (Acute) 1. Acute alcohol withdrawal on chronic alcohol abuse with acute alcohol withdrawal seizure- CIWA/Ativan protocol. Abdominal ultrasound completed due to history of alcoholic hepatitis and showed heterogeneous appearance of the liver, status post cholecystectomy, dilated common bile duct. Medical stabilization per protocol. Continue Librium taper, as needed somatic regimen, thiamine, folic acid, multivitamin supplementation. Seizure precautions. GGT within normal limits. Urine tox screen positive for opiates, amphetamines, benzodiazepines, cannabinoids. 2. Chest pain-suspect secondary to #1. EKG without ST-T changes. Troponin negative. Echocardiogram showed EF of 60%, RVSP estimated be 29 mmHg. Patient may require further stress test when she is through alcohol withdrawal. 3. History of multiple ER visits for suicidal ideation-no current suicidal ideations. 4. Depression-untreated, not on regimen. Recommend outpatient follow-up. 5. Obesity- encouraged diet and lifestyle modifications. DVT prophylaxis-Lovenox subcu This patient was seen by KARAN Can under the supervision of Dr. Chahal. <Cari Chahal - Last Filed: 02/14/19 13:15> - Physical Exam Vital Signs Temp Pulse Resp BP Pulse Ox 98.0 F 66 16 137/82 H 95 02/14/19 12:18 02/14/19 12:18 02/14/19 12:18 02/14/19 12:18 02/14/19 12:18 Oxygen Flow Rate (L/min) 2.5 Oxygen Delivery Method Room Air Weight: 210 lb 8.663 oz Body Mass Index (BMI) 32.0 Intake and Output for Last 24 Hours 02/12/19 02/13/19 02/14/19 23:59 23:59 23:59 Intake Total 1374 / 1374 1583 / 1583 Balance 1374 / 1374 1583 / 1583 Laboratory Tests Past 24 Hrs 02/13/19 02/14/19 17:22 05:50 Sodium 142 Potassium 3.9 Chloride 112 H Carbon Dioxide 28.0 Anion Gap 2 L BUN 11 Creatinine 0.58 Estim Creat Clear Calc 126.16 Est GFR (MDRD) Af Amer 145 Est GFR (MDRD) Non-Af 119 BUN/Creatinine Ratio 18.8 Glucose 91 Calcium 8.0 L Magnesium 2.1 Urine Opiates Screen POSITIVE H Urine Methadone Screen NEGATIVE Ur Barbiturates Screen NEGATIVE Ur Phencyclidine Scrn NEGATIVE Ur Amphetamines Screen POSITIVE H U Methamphetamin-MDMA NEGATIVE U Benzodiazepines Scrn POSITIVE H Urine Cocaine Screen NEGATIVE U Cannabinoids Screen POSITIVE H Ur Drug Screen Comment Assessment/Plan Patient seen by Sandra RUSSO under my supervision. Patient was admitted for acute alcohol withdrawal. Patient seen and examined. Patient is still uncooperative and would not remove his sheets from his face just like yesterday. She wanted to be left alone to sleep. However allowed for physical examination. Review of systems otherwise negative. o/e: Vital Signs Height 5 ft 8 in Weight: 210 lb 8.663 oz Weight in Pounds 210.5 lbs Pulse Ox 95 Temperature 98.0 F Pulse Rate 66 Respiratory Rate 16 Blood Pressure 137/82 Blood Pressure Position Semi-Fowlers - Physical Exam General: alert, uncooperative HEENT: Atraumatic, PERRLA, EOMI, Normocephalic Oral: Dry Mucosa Neck: Supple, No JVD, Negative Carotid Bruits Lungs: Clear to auscultation, Normal air movement Cardiovascular: Regular rate, Regular Rhythm, Normal S1, Normal S2, No murmurs Abdomen: Bowel Sounds Present, Soft, Non Tender, Non-Distended, Obese Extremities: No clubbing, No cyanosis, No edema, Capillary Refill Less than 3 Seconds Skin: No rashes, No breakdown Musculoskeletal: No Tenderness to Palpation of Joints or Extremities Neurological: Cranial nerves II-XII grossly intact, Neuro grossly intact Psych/Mental Status: Impulsive, not very cooperative Plan is continue acute alcohol withdrawal protocol with librium. . Echocardiogram done showed EF of 60% with RVSP of 20 mmHg and normal left ventricular function and systolic function. To complete acute alcohol withdrawal protocol. Rest of management as per KARAN Can's note which I have reviewed and endorsed. Code Visit Inpatient E&M: 78055 Subs Hosp L2
[2019-02-14] MEDS: Multivitamins,Therapeutic Tablet 1 TABLET PO (12:28)
[2019-02-14] MEDS: Folic Acid 1 MG Tablet PO (12:28)
[2019-02-14] MEDS: Thiamine Hydrochloride 100 MG Tablet PO (12:28)
[2019-02-14] MEDS: Enoxaparin 40 MG/0.4 ML Syringe SC (12:28)
[2019-02-14] MEDS: Ibuprofen 400 MG Tablet PO (12:28)
[2019-02-14] MEDS: Pantoprazole Sodium 40 MG Tablet PO (12:28)
--- NOTE | 2019-02-14 15:56 | NURSING ---
pt lethargic did not wake while taking vital signs. Will open eye with light pain touch but falls back to sleep, snoring. will continue to monitor.
[2019-02-14] MEDS: Ondansetron ODT 4 MG Tablet PO (17:30)
[2019-02-14] MEDS: Methocarbamol 750 MG Tablet PO (17:30)
[2019-02-14] MEDS: Acetaminophen 500 MG Tablet PO (17:31)
--- NOTE | 2019-02-14 20:12 | NURSING ---
Patient refusing telemetry monitoring at this time. sales and marketing specialist aware
[2019-02-15] VITALS (10 sets, daily range): BP systolic 99–135; BP diastolic 50–73; PULSE 72–80; RESP 14–18; TEMP 36.3–36.9; O2SAT 97–100
[2019-02-15] MEDS: Buprenorphine HCl 2 MG TAB.SUBL SL ×3 (00:07→16:14)
[2019-02-15] MEDS: 0.9% Normal Saline 1,000 ML 100 ML IV ×2 (04:42→16:14)
--- NOTE | 2019-02-15 07:32 | NURSING ---
PATIENT REMAINS ASLEEP, AROUSABLE TO VOICE, ORIENTED X4. PATIENT CONTINUES TO REFUSE TELEMETRY. KNIFE SETTER GRINDER MACHINE IS AWARE.
[2019-02-15] MEDS: Multivitamins,Therapeutic Tablet 1 TABLET PO (09:24)
[2019-02-15] MEDS: Folic Acid 1 MG Tablet PO (09:24)
[2019-02-15] MEDS: Thiamine Hydrochloride 100 MG Tablet PO (09:25)
[2019-02-15] MEDS: Pantoprazole Sodium 40 MG Tablet PO (09:25)
[2019-02-15] MEDS: Enoxaparin 40 MG/0.4 ML Syringe SC (09:25)
--- NOTE | 2019-02-15 12:49 | PN_ITS ---
<Sandra Cardoso - Last Filed: 02/15/19 12:49> Patient Problems: Active and Suspected Problems Chest pain (Acute) Subjective: Patient seen and examined. Awake and alert today. Very tearful and states she does not have any vertigo at discharge and wants to maintain sobriety. States she is currently homeless and has no family that she can stay with. Denies any current withdrawal symptoms. - Physical Exam General: Alert, Oriented x3, Cooperative HEENT: Atraumatic, PERRLA, EOMI, Normocephalic Oral: - - Poor dentition Neck: Supple, No JVD, Negative Carotid Bruits Lungs: Clear to auscultation, Normal air movement Cardiovascular: Regular rate, Regular Rhythm, Normal S1, Normal S2, No murmurs Abdomen: Bowel Sounds Present, Soft, Non Tender, Non-Distended, Obese Extremities: No clubbing, No cyanosis, No edema, Capillary Refill Less than 3 Seconds Skin: No rashes, No breakdown Musculoskeletal: No Tenderness to Palpation of Joints or Extremities Neurological: Cranial nerves II-XII grossly intact, Neuro grossly intact Psych/Mental Status: Depressed, - - Tearful Vital Signs Temp Pulse Resp BP Pulse Ox 98.1 F 79 14 135/73 H 100 02/15/19 09:58 02/15/19 09:58 02/15/19 09:58 02/15/19 09:58 02/15/19 09:31 Oxygen Flow Rate (L/min) 2.5 Oxygen Delivery Method Room Air Weight: 210 lb 8.663 oz Body Mass Index (BMI) 32.0 Intake and Output for Last 24 Hours 02/13/19 02/14/19 02/15/19 23:59 23:59 23:59 Intake Total 1374 / 1374 2543 / 2543 4511 / 4511 Balance 1374 / 1374 2543 / 2543 4511 / 4511 Medical Necessity - Tobacco Use Smoking Status: Current every day smoker Tobacco Use: Cigarettes Assessment/Plan All Active Problems Chest pain (Acute) Dental abscess (Resolved) Suicidal ideation (Resolved) Alcohol withdrawal (Acute) 1. Acute alcohol withdrawal on chronic alcohol abuse with acute alcohol withdrawal seizure/opioid withdrawal- CIWA/Ativan protocol. Abdominal ultrasound completed due to history of alcoholic hepatitis and showed heterogeneous appearance of the liver, status post cholecystectomy, dilated common bile duct. Medical stabilization per protocol. Continue Librium taper, as needed somatic regimen, thiamine, folic acid, multivitamin supplementation. Seizure precautions. GGT within normal limits. Urine tox screen positive for opiates, amphetamines, benzodiazepines, cannabinoids. Now that patient is more alert, she reports to using IV heroin over the past 2 months as well. Tearful during assessment today and states that she is homeless and has no where to go at discharge. Will offer resources including [facility] as well as [employer]. Librium taper, [facility] protocol will complete tomorrow. 2. Chest pain-suspect secondary to #1. EKG without ST-T changes. Troponin negative. Echocardiogram showed EF of 60%, RVSP estimated be 29 mmHg. Patient may require further stress test when she is through alcohol withdrawal. Patient now states she came to the emergency room due to having no vertigo and denies previous chest pain. Do not feel the stress test is necessary. 3. History of multiple ER visits for suicidal ideation-now that she is alert today, reports she wants to although she reports she is not going to commit suicide and has no suicidal ideations. 4. Depression-untreated, not on regimen. Recommend outpatient follow-up. 5. Obesity- encouraged diet and lifestyle modifications. DVT prophylaxis-Lovenox subcu Discharge planning: Discharge tomorrow with outpatient resources. This patient was seen by KARAN Can under the supervision of Dr. Chahal. <Cari Chahal - Last Filed: 02/15/19 15:07> - Physical Exam Vital Signs Temp Pulse Resp BP Pulse Ox 98.1 F 79 14 135/73 H 100 02/15/19 14:00 02/15/19 14:00 02/15/19 14:02/15/19 14:00 02/15/19 09:31 Oxygen Flow Rate (L/min) 2.5 Oxygen Delivery Method Room Air Weight: 210 lb 8.663 oz Body Mass Index (BMI) 32.0 Intake and Output for Last 24 Hours 02/13/19 02/14/19 02/15/19 23:59 23:59 23:59 Intake Total 1374 / 1374 2543 / 2543 4511 / 4511 Balance 1374 / 1374 2543 / 2543 4511 / 4511 Assessment/Plan Patient seen by Sandra Walker DORMITORY COUNSELOR-C under my supervision. Patient was admitted for acute alcohol withdrawal. Patient seen and examined. Patient is much more cooperative today. She had no complaints. Review of systems otherwise negative. Labs and vitals reviewed. o/e: Vital Signs Height 5 ft 8 in Weight: 210 lb 8.663 oz Weight in Pounds 210.5 lbs Pulse Ox 100 Temperature 98.1 F Pulse Rate 79 Respiratory Rate 14 Blood Pressure 135/73 Blood Pressure Position Semi-Fowlers - Physical Exam General: alert, uncooperative HEENT: Atraumatic, PERRLA, EOMI, Normocephalic Oral: Dry Mucosa Neck: Supple, No JVD, Negative Carotid Bruits Lungs: Clear to auscultation, Normal air movement Cardiovascular: Regular rate, Regular Rhythm, Normal S1, Normal S2, No murmurs Abdomen: Bowel Sounds Present, Soft, Non Tender, Non-Distended, Obese Extremities: No clubbing, No cyanosis, No edema, Capillary Refill Less than 3 Seconds Skin: No rashes, No breakdown Musculoskeletal: No Tenderness to Palpation of Joints or Extremities Neurological: Cranial nerves II-XII grossly intact, Neuro grossly intact Psych/Mental Status: Impulsive, not very cooperative Plan is continue acute alcohol withdrawal protocol with librium. . Echocardiogram done showed EF of 60% with RVSP of 20 mmHg and normal left ventricular function and systolic function. To complete acute alcohol withdrawal protocol tomorrow; for likely discharge tomorrow Rest of management as per KARAN Can's note which I have reviewed and endorsed. Code Visit Inpatient E&M: 62059 Subs Hosp L2
[2019-02-15] MEDS: Ibuprofen 400 MG Tablet PO (16:21)
--- NOTE | 2019-02-15 18:00 | NURSING ---
PATIENT IS AGITATED, STATES THAT STAFF IS STANDING OUTSIDE OF HER ROOM LAUGHING AND POINTING FINGERS. PATIENT STATES THAT EVERYONE IN THIS TOWN JUDGES HER. PATIENT STATES THAT SHE NEEDS ATIVAN FOR HER 20-YEAR HISTORY OF ALCOHOL ABUSE. PATIENT STATES THAT SHE WANTS TO SIGN OUT AMA. I TOLD PATIENT THAT I WOULD PAGE THE DOCTOR AND NOTIFY HER OF THIS. PATIENT IS AGREEABLE TO STAYING AT LEAST UNTIL I HEAR BACK FROM DR. FERRIS.
[2019-02-15] MEDS: hydrOXYzine PAM 25 MG Capsule 50 MG PO (20:29)
--- NOTE | 2019-02-15 20:30 | NURSING ---
Pt still refusing to wear tele monitor at this time. rn case manager hospice aware.
[2019-02-16] VITALS (10 sets, daily range): BP systolic 106–119; BP diastolic 51–65; PULSE 65–77; RESP 14–20; TEMP 36.6–37.2; O2SAT 96–99
[2019-02-16] MEDS: 0.9% Normal Saline 1,000 ML 100 ML IV (00:41)
[2019-02-16] MEDS: Buprenorphine HCl 2 MG TAB.SUBL SL ×2 (03:21→16:33)
--- NOTE | 2019-02-16 07:27 | NURSING ---
pt still refusing to wear heart monitor at this time.
--- NOTE | 2019-02-16 07:45 | NURSING ---
Patient very angry in room. Verbally abusive to Dr. Chahal and Ryan RN. Patient yelling she wants to stay and get better but they are releasing her Patient yelling that she is homeless with nowhere to go and is going to leave and score some heroin because we won't help her Patient is calling Dr. Chahal and Ryan inappropriate names and is using very inappropriate language. Dr. Chahal tried to reason with patient that she is not discharging her today and that [facility] staff would not be able to see pt until tomorrow because of today being a holiday. Patient unreasonable, irrational, angry, still yelling, and refusing any care. Patient has ripped out her IV and is throwing things. Security called. Patient getting dressed. This RN and charge nurse Tyra RN with patient, and able to get patient to calm down and stay to see [facility] staff tomorrow in hopes to have help for current living situation. Patient states she is scared because she has never been this angry and aggressive with previous withdrawals and is concerned it is the medicine. patient agreeable to have assessment completed now and will take Vistaril. Patient wants to sleep and have nothing else done for a while. This RN will assume as primary nurse and will let patient rest and try to give daily medicine and get vitals at lunchtime.
[2019-02-16] MEDS: hydrOXYzine PAM 25 MG Capsule 50 MG PO (08:19)
[2019-02-16] MEDS: Pantoprazole Sodium 40 MG Tablet PO (13:42)
[2019-02-16] MEDS: Multivitamins,Therapeutic Tablet 1 TABLET PO (13:43)
--- NOTE | 2019-02-16 14:10 | PCM.PN.HOSP ---
Patient Problems: Active and Suspected Problems Chest pain (Acute) Subjective: Patient seen and examined. Patient has completed 3 days of acute alcohol withdrawal with Librium protocol. Patient however refuses to leave as she has not been evaluated by [facility] wants to go to an inpatient rehab unit because she is homeless and has no vertigo. During review patient got very aggressive and racially and verbally abused hospitalist because she was upset that the [facility] staff would not be here to evaluate her. Despite attempts to explain to patient that because it was a holiday and had been the weekend, [facility] staff were not available, patient would not understand and got very agitated and aggressive. Security had to be called to calm patient down. Patient threatened to leave AMA even though she stated that she had no way to go and hence was her reason for refusing to be discharged. Patient was having counseled that she could follow-up with [facility] on outpatient basis to be set up for an inpatient rehab facility but patient would be no mind and continued abusing hospitalist verbally and racially. Charge nurse managed to convince patient to stay in the best interest of her own health. Vitals/I&O's: Vital Signs Temp Pulse Resp BP Pulse Ox 98.1 F 77 20 H 119/65 98 02/16/19 13:40 02/16/19 13:40 02/16/19 13:40 02/16/19 13:40 02/16/19 13:40 Oxygen Flow Rate (L/min) 2.5 Oxygen Delivery Method Room Air Weight: 210 lb 8.663 oz Body Mass Index (BMI) 32.0 Intake and Output for Last 24 Hours 02/14/19 02/15/19 02/16/19 23:59 23:59 23:59 Intake Total 2543 / 2543 6051 / 6051 1838 183 Balance 2543 / 2543 6051 / 6051 1838 General: alert, uncooperative, very combative, aggressive and abusive HEENT: Atraumatic, PERRLA, EOMI, Normocephalic Oral: Dry Mucosa Neck: Supple, No JVD, Negative Carotid Bruits Lungs: Clear to auscultation, Normal air movement Cardiovascular: Regular rate, Regular Rhythm, Normal S1, Normal S2, No murmurs Abdomen: Bowel Sounds Present, Soft, Non Tender, Non-Distended, Obese Extremities: No clubbing, No cyanosis, No edema, Capillary Refill Less than 3 Seconds Skin: No rashes, No breakdown Musculoskeletal: No Tenderness to Palpation of Joints or Extremities Neurological: Cranial nerves II-XII grossly intact, Neuro grossly intact Psych/Mental Status: Impulsive, agitated, combative, aggressive, not cooperative. Current Medications Acetaminophen (Tylenol) 500 mg PO Q4H PRN PRN PRN Reason: Temp > 100.4 F Last Admin: 02/14/19 17:31 Dose: 500 mg Al Hydroxide/Mg Hydroxide (Mylanta Ii) 30 ml PO Q6H PRN PRN PRN Reason: dyspesia Bisacodyl (Dulcolax) 10 mg RECTAL DAILY PRN PRN PRN Reason: Constipation Buprenorphine HCl (Buprenorphine Hcl) 2 mg SL Q12H [facility]; Taper Stop: 02/17/19 04:14 Last Admin: 02/16/19 03:21 Dose: 2 mg Clonidine (Catapres) 0.1 mg PO Q2H PRN PRN PRN Reason: Hot/Cold Sweats or Anxiety Dicyclomine HCl (Bentyl) 20 mg PO Q6H PRN PRN PRN Reason: abdominal discomfort Enoxaparin Sodium (Lovenox) 40 mg SC DAILY [facility] Last Admin: 02/16/19 13:43 Dose: Not Given Hydroxyzine HCl (Vistaril Vial) 50 mg IM Q6H PRN PRN PRN Reason: Breakthrough Anxiety Hydroxyzine Pamoate (Vistaril Pamoate Capsule) 50 mg PO Q6H PRN PRN PRN Reason: Mild Anxiety Last Admin: 02/16/19 08:19 Dose: 50 mg Sodium Chloride () 1,000 mls @ 100 mls/hr IV .Q10H CLARA Last Admin: 02/16/19 11:32 Dose: Not Given Ibuprofen (Motrin) 400 mg PO Q8H PRN PRN PRN Reason: Mild-Moderate Pain (1-5/10) Last Admin: 02/15/19 16:21 Dose: 400 mg Loperamide HCl (Imodium) 2 - 4 mg PO UD PRN PRN Reason: LOOSE STOOLS Last Admin: 02/13/19 20:19 Dose: 2 mg Lorazepam (Ativan) 2 mg IV X1 PRN PRN Reason: Seizure Lorazepam (Ativan) 1 mg IV Q2H PRN PRN PRN Reason: Severe Anxiety Last Admin: 02/13/19 23:55 Dose: 1 mg Methocarbamol (Methocarbamol) 750 mg PO Q6H PRN PRN PRN Reason: Muscle Aches Last Admin: 02/14/19 17:30 Dose: 750 mg [facility]it[facility] ([facility]itamin) [facility] Last Admin: 02/16/19 13:43 Dose: 1 tablet Nicotine (Nicoderm Cq (Pbkc)) 21 mg TRANSDERM. DAILY [facility] Last Admin: 02/16/19 13:42 Dose: 21 mg Ondansetron HCl (Zofran Odt) 4 mg PO Q6H PRN PRN PRN Reason: NAUSEA Last Admin: 02/14/19 17:30 Dose: 4 mg Pantoprazole Sodium (Protonix) 40 mg PO DAILY [facility] Last Admin: 02/16/19 13:42 Dose: 40 mg Pramipexole Dihydrochloride (Mirapex) 0.25 mg PO Q12H PRN PRN PRN Reason: Restless Legs Senna (Senokot) 1 tablet PO QHS PRN PRN PRN Reason: Constipation Sodium Chloride () 5 - 15 ml IV UD PRN PRN Reason: SALINE FLUSH Last Admin: 02/13/19 23:53 Dose: 10 ml Trazodone HCl (Desyrel) 50 mg PO QHS [facility] Last Admin: 02/15/19 20:49 Dose: Not Given Medical Necessity - Tobacco Use Smoking Status: Current every day smoker Tobacco Use: Cigarettes Assessment/Plan All Active Problems Chest pain (Acute) Dental abscess (Resolved) Suicidal ideation (Resolved) Alcohol withdrawal (Acute) 1. Acute alcohol withdrawal has completed 3 days of alcohol abuse patient refusing to leave, and is angry that the [facility] staff are not available to see her over the weekend. Patient says it is because people like us dont care about drug addicts like her, that is why the town is in the state it is in. Patient counseled that she would not be discharged till she is evaluated by [facility] tomorrow. Patient is even more agitated, and verbally and racially abusive to hospitalist. patient to be evaluated by [facility] tomorrow, for inpatient rehab placement. urine tox was positive for opiates, amphetamines, benzodiazepines and cannabinoids 2. Chest pain: Resolved on admission it was likely due to acute alcohol withdrawal. Echo done showed EF of 60% was essentially normal. Patient has not had any chest pain since admission has been completely stable. To follow-up with her primary care doctor for further work-up and outpatient stress test as needed. 3. Depression: not on any treatment: to follow up with her PCP. DVT prophylaxis: lovenox Code Visit Inpatient E&M: 98566 Subs Hosp L2
--- NOTE | 2019-02-16 14:14 | PN_ITS ---
Patient Problems: Active and Suspected Problems Chest pain (Acute) Subjective: Patient seen and examined. Patient has completed 3 days of acute alcohol withdrawal with Librium protocol. Patient however refuses to leave as she has not been evaluated by [facility] wants to go to an inpatient rehab unit because she is homeless and has no vertigo. During review patient got very aggressive and racially and verbally abused hospitalist because she was upset that the [facility] staff would not be here to evaluate her. Despite attempts to explain to patient that because it was a holiday and had been the weekend, [facility] staff were not available, patient would not understand and got very agitated and aggressive. Security had to be called to calm patient down. Patient threatened to leave AMA even though she stated that she had no way to go and hence was her reason for refusing to be discharged. Patient was having counseled that she could follow-up with [facility] on outpatient basis to be set up for an inpatient rehab facility but patient would be no mind and continued abusing hospitalist verbally and racially. Charge nurse managed to convince patient to stay in the best interest of her own health. Vitals/I&O's: Vital Signs Temp Pulse Resp BP Pulse Ox 98.1 F 77 20 H 119/65 98 02/16/19 13:40 02/16/19 13:40 02/16/19 13:40 02/16/19 13:40 02/16/19 13:40 Oxygen Flow Rate (L/min) 2.5 Oxygen Delivery Method Room Air Weight: 210 lb 8.663 oz Body Mass Index (BMI) 32.0 Intake and Output for Last 24 Hours 02/14/19 02/15/19 02/16/19 23:59 23:59 23:59 Intake Total 2543 / 2543 6051 / 6051 1838 183 Balance 2543 / 2543 6051 / 6051 1838 General: alert, uncooperative, very combative, aggressive and abusive HEENT: Atraumatic, PERRLA, EOMI, Normocephalic Oral: Dry Mucosa Neck: Supple, No JVD, Negative Carotid Bruits Lungs: Clear to auscultation, Normal air movement Cardiovascular: Regular rate, Regular Rhythm, Normal S1, Normal S2, No murmurs Abdomen: Bowel Sounds Present, Soft, Non Tender, Non-Distended, Obese Extremities: No clubbing, No cyanosis, No edema, Capillary Refill Less than 3 Seconds Skin: No rashes, No breakdown Musculoskeletal: No Tenderness to Palpation of Joints or Extremities Neurological: Cranial nerves II-XII grossly intact, Neuro grossly intact Psych/Mental Status: Impulsive, agitated, combative, aggressive, not cooperative. Current Medications Acetaminophen (Tylenol) 500 mg PO Q4H PRN PRN PRN Reason: Temp > 100.4 F Last Admin: 02/14/19 17:31 Dose: 500 mg Al Hydroxide/Mg Hydroxide (Mylanta Ii) 30 ml PO Q6H PRN PRN PRN Reason: dyspesia Bisacodyl (Dulcolax) 10 mg RECTAL DAILY PRN PRN PRN Reason: Constipation Buprenorphine HCl (Buprenorphine Hcl) 2 mg SL Q12H [facility]; Taper Stop: 02/17/19 04:14 Last Admin: 02/16/19 03:21 Dose: 2 mg Clonidine (Catapres) 0.1 mg PO Q2H PRN PRN PRN Reason: Hot/Cold Sweats or Anxiety Dicyclomine HCl (Bentyl) 20 mg PO Q6H PRN PRN PRN Reason: abdominal discomfort Enoxaparin Sodium (Lovenox) 40 mg SC DAILY [facility] Last Admin: 02/16/19 13:43 Dose: Not Given Hydroxyzine HCl (Vistaril Vial) 50 mg IM Q6H PRN PRN PRN Reason: Breakthrough Anxiety Hydroxyzine Pamoate (Vistaril Pamoate Capsule) 50 mg PO Q6H PRN PRN PRN Reason: Mild Anxiety Last Admin: 02/16/19 08:19 Dose: 50 mg Sodium Chloride () 1,000 mls @ 100 mls/hr IV .Q10H [facility] Last Admin: 02/16/19 11:32 Dose: Not Given Ibuprofen (Motrin) 400 mg PO Q8H PRN PRN PRN Reason: Mild-Moderate Pain (1-5/10) Last Admin: 02/15/19 16:21 Dose: 400 mg Loperamide HCl (Imodium) 2 - 4 mg PO UD PRN PRN Reason: LOOSE STOOLS Last Admin: 02/13/19 20:19 Dose: 2 mg Lorazepam (Ativan) 2 mg IV X1 PRN PRN Reason: Seizure Lorazepam (Ativan) 1 mg IV Q2H PRN PRN PRN Reason: Severe Anxiety Last Admin: 02/13/19 23:55 Dose: 1 mg Methocarbamol (Methocarbamol) 750 mg PO Q6H PRN PRN PRN Reason: Muscle Aches Last Admin: 02/14/19 17:30 Dose: 750 mg [facility]) [facility] Last Admin: 02/16/19 13:43 Dose: 1 tablet Nicotine (Nicoderm Cq (Pbkc)) 21 mg TRANSDERM. DAILY [facility] Last Admin: 02/16/19 13:42 Dose: 21 mg Ondansetron HCl (Zofran Odt) 4 mg PO Q6H PRN PRN PRN Reason: NAUSEA Last Admin: 02/14/19 17:30 Dose: 4 mg Pantoprazole Sodium (Protonix) 40 mg PO DAILY [facility] Last Admin: 02/16/19 13:42 Dose: 40 mg Pramipexole Dihydrochloride (Mirapex) 0.25 mg PO Q12H PRN PRN PRN Reason: Restless Legs Senna (Senokot) 1 tablet PO QHS PRN PRN PRN Reason: Constipation Sodium Chloride () 5 - 15 ml IV UD PRN PRN Reason: SALINE FLUSH Last Admin: 02/13/19 23:53 Dose: 10 ml Trazodone HCl (Desyrel) 50 mg PO QHS [facility] Last Admin: 02/15/19 20:49 Dose: Not Given Medical Necessity - Tobacco Use Smoking Status: Current every day smoker Tobacco Use: Cigarettes Assessment/Plan All Active Problems Chest pain (Acute) Dental abscess (Resolved) Suicidal ideation (Resolved) Alcohol withdrawal (Acute) 1. Acute alcohol withdrawal * has completed 3 days of alcohol abuse * patient refusing to leave, and is angry that the [facility] staff are not available to see her over the weekend. Patient says it is because people like us dont care about drug addicts like her, that is why the town is in the state it is in. Patient counseled that she would not be discharged till she is evaluated by [facility] tomorrow. Patient is even more agitated, and verbally and racially abusive to hospitalist. * patient to be evaluated by [facility] tomorrow, for inpatient rehab placement. * urine tox was positive for opiates, amphetamines, benzodiazepines and cannabinoids 2. Chest pain: * Resolved on admission it was likely due to acute alcohol withdrawal. Echo done showed EF of 60% was essentially normal. Patient has not had any chest pain since admission has been completely stable. * To follow-up with her primary care doctor for further work-up and outpatient stress test as needed. * 3. Depression: not on any treatment: to follow up with her PCP. DVT prophylaxis: lovenox Code Visit Inpatient E&M: 95921 Subs Hosp L2
--- NOTE | 2019-02-16 18:00 | NURSING ---
Went to do another CIWA and withdrawal assessment on patient and to get an additional set of vital signs. Also brought in a PRN dose of Senokot the pt had requested previously in the day. Patient stated to get the hell out of her room and let her sleep. Told her I had the Senokot and she said I don't want that shit, just leave me alone. Senokot returned to Accudose.
--- NOTE | 2019-02-17 01:00 | NURSING ---
Pt refusing vital sign assessment at this time. Not cooperative with CIWA assessment, refusing ativan. Drowsy at this time. Respirations are even and unlabored. No s/s of distress, will continue to monitor.
--- NOTE | 2019-02-17 02:00 | NURSING ---
Pt refusing vital sign assessment at this time. Not coooperative with CIWA assessment, refusing ativan.
--- NOTE | 2019-02-17 05:00 | NURSING ---
Pt refusing vital signs at this time. Wants to sleep. Will attempt prior to going off shift. Appears to be in no distress, respirations appear even and unlabored.
[2019-02-17 07:40] VITALS: O2SAT 96
--- NOTE | 2019-02-17 08:24 | DCINST_ITS ---
- Discharge Diagnoses Current Active Problems: Current Active and Chronic Problems Chest pain (Acute) You will use the following diet at home:: Regular Your food should be the consistency of: Regular Your liquids should be the consistency of: Regular/Thin Discharge Activity: Return to Normal Activity, No Restrictions Call your doctor if you observe: Fever of 101 or Higher, Shortness of breath, Dizziness, Fainting spells, Swelling in the ankles, Chest pain, Increased palpitations (irregular heartbeat) Additional Instructions: Follow-up with a mental and behavioral health specialist if an inpatient rehab unit cannot be located. Allergies/Adverse Reactions: Allergies hydrocodone bitartrate [From Vicodin] Allergy (Verified 02/13/19 01:41) Itching Medications to take at Discharge NK 02/13/19 Primary Care Physician: Taye Pinto DO [Primary Care Provider] - Please follow up with your Primary Care Physician in: 3-5 days Test Results: Test results from this visit will be discussed in further detail at your follow- up appointment, if applicable.
--- NOTE | 2019-02-17 08:26 | PCM.DC.SUM ---
Discharge Date and Diagnosis - Problem List Patient Problems: Active and Suspected Problems Chest pain (Acute) Date of Admission: 02/13/19 Date of Discharge: 02/17/19 - Primary Discharge Diagnosis Active and Suspected Problems Chest pain (Acute) - Secondary Discharge Diagnosis Chronic Problems Depression (Chronic) Alcohol abuse (Chronic) Hospital Course and Treatment Imaging Results: CXR: IMPRESSION: No radiographic evidence of acute cardiopulmonary disease. US of Abdomen: IMPRESSION: Heterogeneous appearance of the liver. Status post cholecystectomy. Dilated common bile duct. Consultations 02/15/19 12:58 Consult: Mental Health/Crisis Routine Reason for consult?: severe depression Date Notified:: 02/15/19 Time notified:: 13:00 Operations: None, - - MARISSA/RSO Procedures: 2-D Echocardiogram - Interpretation Summary The study was technically difficult. Left ventricular systolic function is normal. The estimated ejection fraction is 60 %. Trivial mitral valve insufficiency. Trivial tricuspid valve insufficiency. Right ventricular systolic pressure estimated to be 29 mmHg. No evidence for diastolic dysfunction. Summary of Care Provided: Per HPI: The patient is a 44 year old F with history of severe alcohol use and dependence about 20-30 beers daily, last drink was 9 AM on 02/12 came to ER initially with chest pain, persistent, midsternal with radiation to back. It was soon found that patient is in alcohol withdrawal with nausea, dry heaving and diarrhea. She also reported possible seizure. This all history is from the ER physician note and RN who took care of patient. As by the time I went to see the patient, she was already given Ativan and sedated. Patient hardly wakes up with a strong voice and tactile stools but soon falls to sleep. She was last admitted in 2017 for alcohol withdrawal when she left the hospital peripheral IV line and montserrat Story was called. On she herself removed IV line and was located by the police walking on the street. She has history of multiple ER visits for suicidal ideation, depression and alcohol use and withdrawal. Hospital Course: 1. Acute alcohol withdrawal/chest [id number]-old female with a history of alcohol abuse drinking 20-30 beers a day, presented to the ER with withdrawal-like symptoms and wanted to go through detox. She completed the alcohol withdrawal protocol over the weekend however she became extremely abusive both verbally and physically because she had not seen [facility] and it was explained to her that [facility] would likely not be available on the weekend. She was kept an extra day after her last dose so she could see [facility] and attempt to get her placed in an inpatient unit. However today she kicked the [facility] mill representative out of her room and was externally combative inversely verbally abusive again and threw multiple things around her room. She decided to leave without speaking with [facility]. Of note her chest pain resolved as her withdrawal symptoms improved. She had an echo performed which was normal and an abdominal ultrasound for pain which was also normal, and her common bile duct was dilated but this is not abnormal after having a cholecystectomy. Patient Problems: Active and Suspected Problems Chest pain (Acute) - Physical Exam General: Alert, Oriented x3, Cooperative, No apparent distress HEENT: Atraumatic, PERRLA, EOMI, Normocephalic Oral: Moist Mucosa Neck: Supple, No JVD Lungs: Clear to auscultation, Normal air movement, No rhonchi, No wheeze, No rales Cardiovascular: Regular rate, Regular Rhythm, Normal S1, Normal S2, No murmurs Abdomen: Soft, Non Tender, Non-Distended, No Hepato-splenomegaly, Obese Extremities: No edema, Capillary Refill Less than 3 Seconds Skin: No rashes, No breakdown Neurological: Neuro grossly intact, Sensory exam intact to light touch and pain Psych/Mental Status: Normal Affect, Agitated Vital Signs Temp Pulse Resp BP Pulse Ox 98.9 F 71 16 115/65 96 02/16/19 21:03 02/16/19 21:03 02/16/19 21:03 02/16/19 21:03 02/17/19 07:40 Oxygen Flow Rate (L/min) 2.5 Oxygen Delivery Method Room Air Weight: 210 lb 8.663 oz Body Mass Index (BMI) 32.0 Intake and Output for Last 24 Hours 02/15/19 02/16/19 02/17/19 23:59 23:59 23:59 Intake Total 6051 / 6051 2078 Balance 6051 / 6051 2078 Discharge Activity: Return to Normal Activity, No Restrictions Call your doctor if you observe: Fever of 101 or Higher, Shortness of breath, Dizziness, Fainting spells, Swelling in the ankles, Chest pain, Increased palpitations (irregular heartbeat) Home Medications: Medications to take at Discharge NK 02/13/19 Primary Care Physician: Taye Pinto DO [Primary Care Provider] - Please follow up with your Primary Care Physician in: 3-5 days Minutes spent on discharge:: 35 Patient Condition:: Stable Medical Necessity - Tobacco Use Smoking Status: Current every day smoker Tobacco Use: Cigarettes Meaningful Use Info Meaningful Use Diagnoses (Choose all that apply): None applicable Code Visit Inpatient E&M: 68731 Disch Hosp
--- NOTE | 2019-02-17 09:15 | CASEMGMT ---
Lara from [facility] did go to see pt, however pt is not willing to make a phone call to look into going to [facility]. SW did give RN a brochure for [facility] [employer] to give to pt, SW available should pt express more interest in getting assist with resources for recovery. GINA Paula
--- NOTE | 2019-02-17 13:30 | [facility] ---
[facility] discussed aftercare planning. Patient quickly became upset, using profanity. Patient was offered the phone number and instructions on use of the white phone in her room to call [facility] for emergency residential care at the woman's long term and or to enter into [facility]. Patient stated that no one cares about her, no one would help her ignoring the options given. Patient was also offered the phone number for [facility] to re-establish her Medicaid, patient refused again complaining of incompetence of [facility] agency and reported that she was leaving the hospital immediately.
== END 2019-02-17 09:30 | disposition home or self-care (01) | DRG 897 ==
LOC: ED 02:09 → PCU 03:17
PROVIDERS: Admitting Provider Internal Medicine; Emergency Provider Emergency Medicine; Family Provider Family Medicine; PCP Family Medicine; Visit Provider Family Medicine
DX: F10.239 Alcohol dependence with withdrawal, unspecified (principal); F17.210 Nicotine dependence, cigarettes, uncomplicated; R07.89 Other chest pain; F32.9 Major depressive disorder, single episode, unspecified; F41.9 Anxiety disorder, unspecified; E66.9 Obesity, unspecified; Z68.32 Body mass index [BMI] 32.0-32.9, adult; Z71.3 Dietary counseling and surveillance; Z59.0 Homelessness
CPT/HCPCS: 36415; 71046; 76705; 80048; 80061; 80076; 80307; 80320; 82962; 82977; 83735; 84443; 84484; 84703; 85025; 85610; 93005; 93306; 99285; 99406; J7030; Q9957; A4216; G0480; J3490

== ENCOUNTER 2019-03-18 07:27 | Observation (INO) | payer SELFPAY ==
[2019-03-18] VITALS (9 sets, daily range): BP systolic 98–140; BP diastolic 69–83; PULSE 80–94; RESP 17–25; TEMP 36.6–36.8; O2SAT 98–100; BMI 31.9; BMI 31.1; BMI 31.2
--- NOTE | 2019-03-18 07:45 | CT_ITS ---
STUDY: CT BRAIN WITHOUT CONTRAST REASON FOR EXAM: Female, 44 years old. RADIATION DOSAGE (If Supplied By Facility): CTDIvol = ( 44.99 ) mGy, DLP = ( 745.49 ) mGycm TECHNIQUE: Transaxial CT imaging of the brain was performed without administration of intravenous contrast material. Individualized dose optimization techniques were used for this CT. COMPARISON: No relevant priors. FINDINGS: Normal soft tissue structures. Normal calvarium. Normal size ventricles and extra-axial spaces for the patient's age. Normal white matter tracts of the cerebral hemispheres. Normal basal ganglia and thalami. Normal brainstem. Normal cerebellum. There is no intracranial hemorrhage. There are no findings of an acute ischemic infarction. Normal visualized paranasal sinuses and mastoid air cells The skull base and cranial vault are intact. CT/Brain/Head without Contrast IMPRESSION: Normal unenhanced CT scan of the brain. Electronically Signed: Glenda Lopez, at 9:20 EDT Tel , Service support ,
--- NOTE | 2019-03-18 07:45 | EKG12_ITS ---
Test Reason : CP Blood Pressure : / mmHG Vent. Rate : 091 BPM Atrial Rate : 091 BPM P-R Int : 122 ms QRS Dur : 098 ms QT Int : 370 ms P-R-T Axes : 082 072 061 degrees QTc Int : 455 ms Normal sinus rhythm Incomplete right bundle branch block Borderline ECG Confirmed by JEFFREY IRELAND, MARILU ([id number]), graphic editor CHAVA ESTES ([id number]) on 03/20/2019 10:38:07 AM Referred By: ANJELICA Confirmed By:GAY MURPHY MD
--- NOTE | 2019-03-18 07:47 | ED.VIS.CHEST ---
History of Present Illness Chief Complaint: Chest Pain Informant: Patient, Friend Onset: Today - 3-4 hrs ago Timing: Continuous Quality: Pressure Location: Substernal Current Severity: Moderate Maximum Severity: Moderate Worsened By: Nothing Relieved By: Nothing Associated Symptoms: Nausea. Negative for: Vomiting, Diaphoresis, Dyspnea, Cough, Fever Narrative: Patient states she was walking through her kitchen at 4 AM this morning when she suddenly woke up on the floor with chest discomfort that has persisted. It is nonpleuritic. She is admittedly an alcoholic and states that she stopped drinking cold turkey yesterday because she is trying to detox herself, she has never been through any official detox before. She feels like she is in withdrawal now, very shaky. She is concerned that she may have had a seizure. She did not soil her pants or bite her tongue, nor has she necessarily had a seizure before. She denies a headache. She denies pain elsewhere. She does not feel well. She is tearful and regretful about her drug use. States she has had an itchy rash since she used methamphetamine a week ago with her roommate. Prior Similar Symptoms: No Recent Illness/Hospitalization: No CVD Risk Factors: Smoking. Negative for: Hypertension, Diabetes, Hypercholesterolemia, Family History 1' </=55 PE Risk Factors: Negative for: Recent Travel/Surgery, Recenet Immobilization, Prior DVT or PE, Cancer, OCP + Smoking + >/=35 Past Medical History - Allergies and Home Meds Allergies/Adverse Reactions: Allergies No Known Allergies Allergy (Verified 03/18/19 07:32) Primary Care Physician: Care Physician,No Primary [Primary Care Provider] - Past Medical History: None - but doesn't see outpt physicians Surgical History: no surgical history Lives: Roommate Smoking Status: Current every day smoker Alcohol: Heavy - 30-pk of beer per day for 20-30 years Drugs: Heroin - daily for about 1 month, last use last night, - - methamphetamine - last use 1 week ago Review of Systems General: Reports: Malaise. Denies: Chills, Fever, Sweats Eyes: Denies: Visual changes - bilaterally, Diplopia ENT: Denies: Rhinorrhea, Sore throat Cardiovascular: Denies: Chest pain, Palpitations Respiratory: Denies: Dyspnea, Cough, Dyspnea on exertion Gastrointestinal: Reports: Nausea. Denies: Abdominal pain, Vomiting, Diarrhea, Melena, Hematochezia Genitourinary: Denies: Dysuria, Hematuria, Frequency Musculoskeletal: Reports: Myalgias. Denies: Back pain, Swelling, Extremity Pain Skin: Reports: Rash - pruritic x 1 week - started on left foot, now on breasts also. Denies: Wounds Neurological: Denies: Headache, Weakness, Numbness Psych: Reports: Anxiety. Denies: Suicidal thoughts, Suicidal ideations Hematologic: Denies: Easy bruising, Easy bleeding Physical Exam Vital Signs/Narrative: Vital Signs Temp Pulse Resp BP Pulse Ox 03/18/19 07:28 98.2 F 94 25 H 113/73 99 Diagnostic/Tx/Re-eval Laboratory Tests 03/18/19 03/18/19 03/18/19 Range/Units 09:20 09:20 08:36 WBC (4.4-11.0) K/mm3 RBC (4.2-5.4) M/mm3 Hgb (12.0-15.0) g/dl Hct (37-47) % MCV (81-99) fL MCH (27.0-32.0) pg MCHC (32-36) g/gl RDW (11.6-14.6) % RDW Differential (35.1-43.9) fl Plt Count (150-450) K/mm3 MPV (6.2-12.0) fl Immature Gran % (Auto) (0.0-0.9) % Neut % (Auto) (47-70) % Lymph % (Auto) (19-41) % Charles % (Auto) (0-10) % Eos % (Auto) (0-5) % Baso % (Auto) (0-1) % Absolute Neuts (auto) (2.0-7.7) X10^3/uL Absolute Lymphs (auto) (0.83-4.51) X10^3/ul Total Counted Sodium 139 Potassium 3.5 Chloride 106 Carbon Dioxide 28.0 Anion Gap 5 BUN 7 Creatinine 0.68 Estim Creat Clear Calc 107.61 Est GFR (MDRD) Af Amer 121 Est GFR (MDRD) Non-Af 100 BUN/Creatinine Ratio 10.2 Glucose 94 Calcium 8.5 Troponin I < 0.015 Urine Test Negative Negative Urine Opiates Screen NEGATIVE (< 300 ng/mL) Urine Methadone Screen NEGATIVE (< 300 ng/mL) Ur Barbiturates Screen NEGATIVE (< 200 ng/mL) Ur Phencyclidine Scrn NEGATIVE (< 25 ng/mL) Ur Amphetamines Screen POSITIVE H (<1000 ng/mL) U Methamphetamin-MDMA NEGATIVE (< 500 ng/mL) U Benzodiazepines Scrn NEGATIVE (< 200 ng/mL) Urine Cocaine Screen NEGATIVE (< 300 ng/mL) U Cannabinoids Screen POSITIVE H (< 50 ng/mL) Ur Drug Screen Comment Ethyl Alcohol 03/18/19 03/18/19 03/18/19 Range/Units 08:36 08:00 08:00 WBC (4.4-11.0) K/mm3 RBC (4.2-5.4) M/mm3 Hgb (12.0-15.0) g/dl Hct (37-47) % MCV (81-99) fL MCH (27.0-32.0) pg MCHC (32-36) g/gl RDW (11.6-14.6) % RDW Differential (35.1-43.9) fl Plt Count (150-450) K/mm3 MPV (6.2-12.0) fl Immature Gran % (Auto) (0.0-0.9) % Neut % (Auto) (47-70) % Lymph % (Auto) (19-41) % Charles % (Auto) (0-10) % Eos % (Auto) (0-5) % Baso % (Auto) (0-1) % Absolute Neuts (auto) (2.0-7.7) X10^3/uL Absolute Lymphs (auto) (0.83-4.51) X10^3/ul Total Counted Sodium Cancelled Potassium Cancelled Chloride Cancelled Carbon Dioxide Cancelled Anion Gap Cancelled BUN Cancelled Creatinine Cancelled Estim Creat Clear Calc Cancelled Est GFR (MDRD) Af Amer Cancelled Est GFR (MDRD) Non-Af Cancelled BUN/Creatinine Ratio Cancelled Glucose Cancelled Calcium Cancelled Troponin I Cancelled Urine Test Negative Urine Opiates Screen (< 300 ng/mL) Urine Methadone Screen (< 300 ng/mL) Ur Barbiturates Screen (< 200 ng/mL) Ur Phencyclidine Scrn (< 25 ng/mL) Ur Amphetamines Screen (<1000 ng/mL) U Methamphetamin-MDMA (< 500 ng/mL) U Benzodiazepines Scrn (< 200 ng/mL) Urine Cocaine Screen (< 300 ng/mL) U Cannabinoids Screen (< 50 ng/mL) Ur Drug Screen Comment Ethyl Alcohol 5.0 Cancelled 03/18/19 Range/Units 08:00 WBC 6.3 (4.4-11.0) K/mm3 RBC 4.41 (4.2-5.4) M/mm3 Hgb 14.1 (12.0-15.0) g/dl Hct 41.0 (37-47) % MCV 93.0 (81-99) fL MCH 32.0 (27.0-32.0) pg MCHC 34.4 (32-36) g/gl RDW 12.4 (11.6-14.6) % RDW Differential 41.8 (35.1-43.9) fl Plt Count 242 (150-450) K/mm3 MPV 9.5 (6.2-12.0) fl Immature Gran % (Auto) 0.200 (0.0-0.9) % Neut % (Auto) 59.5 (47-70) % Lymph % (Auto) 30.2 (19-41) % Charles % (Auto) 6.6 (0-10) % Eos % (Auto) 3.0 (0-5) % Baso % (Auto) 0.5 (0-1) % Absolute Neuts (auto) 3.8 (2.0-7.7) X10^3/uL Absolute Lymphs (auto) 1.91 (0.83-4.51) X10^3/ul Total Counted Not Reportable Sodium Potassium Chloride Carbon Dioxide Anion Gap BUN Creatinine Estim Creat Clear Calc Est GFR (MDRD) Af Amer Est GFR (MDRD) Non-Af BUN/Creatinine Ratio Glucose Calcium Troponin I Urine Test Negative Urine Opiates Screen (< 300 ng/mL) Urine Methadone Screen (< 300 ng/mL) Ur Barbiturates Screen (< 200 ng/mL) Ur Phencyclidine Scrn (< 25 ng/mL) Ur Amphetamines Screen (<1000 ng/mL) U Methamphetamin-MDMA (< 500 ng/mL) U Benzodiazepines Scrn (< 200 ng/mL) Urine Cocaine Screen (< 300 ng/mL) U Cannabinoids Screen (< 50 ng/mL) Ur Drug Screen Comment Ethyl Alcohol Clinical Impression(s) from Imaging Studies Brain CT 03/18/19 07:45 IMPRESSION: Normal unenhanced CT scan of the brain. Electronically Signed: Glenda Lopez, at 9:20 EDT Tel , Service support , Chest X-Ray 03/18/19 09:10 IMPRESSION: Normal x-ray examination of the chest. Electronically Signed: Glenda Lopez, at 10:14 EDT Tel , Service support , - Rhythm Strip Rhythm Strip: Sinus Rhythm Rate: 91 Ectopy: None - EKG Initial EKG Interpretation: Sinus Rhythm, No Acute Injury Pattern, RBBB - incomplete Prior: No Prior Treatment: GI Cocktail Repeat Eval: Pain Free - Medical Decision Making Patient is feeling somewhat improved after Ativan. Her chest discomfort is gone after a GI cocktail. Her EKG shows no acute injury, there is no old for comparison of her incomplete right bundle branch block, her troponin is negative. She had no seizure activity in the emergency department. Her alcohol level is almost 0, her drug screen is showing substances she admitted to using recently. Plan is for medical admission for alcohol withdrawal and also consult detox as well. I spoke with [facility], as well as a hospital social work. I filled out a CIWA, her score is 24. Social work discussed with her because she has no insurance, and gave her a phone number to call. ED Disposition - Plan for ED Patient: Disposition: Acute Care Hospital [facility] Diagnosis: Alcohol withdrawal, Chest pain, unspecified, Alcohol withdrawal seizure Referrals: Care Physician,No Primary [Primary Care Provider] -
[2019-03-18 08:11] LABS: Absolute Lymphocyte Count 1.91 X10^3/ul (0.83-4.51); Absolute Neutrophil Count 3.8 X10^3/uL (2.0-7.7); Basophil# 0.03 X10^3/uL; Basophil% 0.5 % (0-1); Eosinophil# 0.19 X10^3/uL; Hemoglobin 14.1 g/dl (12.0-15.0); Lymphocyte # 1.91 X10^3/ul (4.0); Lymphocyte % 30.2 % (19-41); Mean Corp Hgb Conc 34.4 g/gl (32-36); Mean Platelet Vol. 9.5 fl (6.2-12.0); Monocyte# 0.42 X10^3/uL; Monocyte% 6.6 % (0-10); Neutrophil # 3.76 X10^3/uL (2.7-7.7); Neutrophil % 59.5 % (47-70); POSITIVE COUNT NO; POSITIVE DIFFERENTIAL NO; POSITIVE MORPHOLOGY NO; Platelet Count 242 K/mm3 (150-450); RBC Distribution Width CV 12.4 % (11.6-14.6); RBC Distribution Width SD 41.8 fl (35.1-43.9); Red Blood Count 4.41 M/mm3 (4.2-5.4); White Blood Count 6.3 K/mm3 (4.4-11.0)
[2019-03-18] MEDS: Mag Hydrox/Al Hydrox/Simeth 30 ML UDC PO (08:53)
[2019-03-18] MEDS: Aspirin 81 MG TAB.CHEW 324 MG PO (08:53)
[2019-03-18] MEDS: Ondansetron 4 MG/2 ML Vial IV (08:53)
[2019-03-18] MEDS: 0.9% Normal Saline 1,000 ML 1000 ML IV (08:53)
[2019-03-18] MEDS: LORazepam 2 MG/ML Syringe 1 MG IV ×2 (08:53→12:22)
[2019-03-18 08:59] LABS: Anion Gap 5 (5-15); BUN 7 mg/dL (7-18); BUN/Creat Ratio 10.2 RATIO (10-20); Calcium,Total 8.5 mg/dL (8.5-10.1); Chloride 106 mmol/L (98-107); Creatinine, Serum 0.68 mg/dL (0.55-1.02); EST Glomerular Filtration Rate 100 mL/min (>60); Est Glom Filt Rate - Afr Amer 121 mL/min (>60); Estimated Creatinine Clearance 107.61 ml/min; Glucose 94 mg/dL (74-106); Potassium 3.5 mmol/L (3.5-5.1); Sodium Level 139 mmol/L (136-145)
--- NOTE | 2019-03-18 09:10 | RAD_ITS ---
STUDY: X-RAY CHEST REASON FOR EXAM: Female, 44 years old. - TECHNIQUE: 2 views COMPARISON: None. FINDINGS: The lungs are clear and expanded. There is no demonstrated pleural abnormality. Normal size heart. Normal mediastinum and lissa. Normal visualized pulmonary arteries. Normal visualized aortic arch and descending thoracic aorta. There is mild scoliosis of the thoracolumbar junction convexity to the right could be position. Normal visualized ribs, clavicles, and shoulders. There is no demonstrated abnormality of the visualized soft tissue structures of the upper abdomen. RAD/Chest PA and Lateral IMPRESSION: Normal x-ray examination of the chest. Electronically Signed: Glenda Lopez, at 10:14 EDT Tel , Service support ,
[2019-03-18 09:32] LABS: Internal QC Validated? YES +Cl - CLEAR BKGD; Pregnancy, Urine Negative Negative
[2019-03-18 09:48] LABS: Amphetamine Urine VISTA POSITIVE (<1000 ng/mL); Barbiturate Urine VISTA NEGATIVE (< 200 ng/mL); Benzodiazepine Urine VISTA NEGATIVE (< 200 ng/mL); Cocaine Urine VISTA NEGATIVE (< 300 ng/mL); Ecstacy Urine VISTA NEGATIVE (< 500 ng/mL); Methadone Urine VISTA NEGATIVE (< 300 ng/mL); PCP Urine VISTA NEGATIVE (< 25 ng/mL); THC Urine VISTA POSITIVE (< 50 ng/mL); Vista UDS pH Range 7
--- NOTE | 2019-03-18 10:02 | HP.PCM_ITS ---
Problem List (1) Polysubstance (including opioids) dependence, daily use Status: Chronic (2) Nicotine dependence Status: Chronic Qualifiers: Nicotine product type: cigarettes Substance use status: unspecified nicotine-induced disorder Qualified Code(s): F17.219 - Nicotine dependence, cigarettes, with unspecified nicotine-induced disorders (3) Alcohol abuse Status: Chronic (4) Alcohol withdrawal Status: Acute Qualifiers: Complication of substance-induced condition: uncomplicated Qualified Code(s): F10.230 - Alcohol dependence with withdrawal, uncomplicated History of Present Illness Date of Admission: 03/18/19 Chief Complaint: Seizure, chest pain - 1 day The patient is a 44 year old F with past medical history of polysubstance use, alcohol use disorder who comes in with complaints of possible seizure, as well as chest discomfort. Patient states she stopped drinking cold turkey. She drinks about 30 pack of beer every day. She admits to snorting a long row of heroin daily. She cannot tell me how many grams. She also smokes 1/2 - 1 pack per day. She was in her kitchen at 4 AM in the morning when she suddenly woke up on the floor. She is not sure how she got to the floor. She also has some chest discomfort which was nonpleuritic, and was relieved in the emergency department with Mylanta. She is saying she is tired of being in an overdosed state and is looking for help for substance withdrawal. He complains of leg cramps, nausea but no vomiting. Chest discomfort is improved. Vitals in the ED showed temperature of 98.2 F, heart rate 94, blood pressure 11 3/73, RR 25, SPO2 is 99% on room air. Admitting blood work was unremarkable. Troponins was negative. Urine test negative. Urine tox positive for amphetamines and cannabinoids Past Medical History Past Medical History (Chronic Problems): Chronic Problems Polysubstance (including opioids) dependence, daily use (Chronic) Nicotine dependence (Chronic) Alcohol abuse (Chronic) Allergies No Known Allergies Allergy (Verified 03/18/19 07:32) Home Medications: Ambulatory Orders Medication Instructions Recorded NK 03/18/19 Surgical History: no surgical history Psychiatric History: No pertinent psych hx [employer] History: No pertinent [employer] history Lives: With Family, Roommate Smoking Status: Current every day smoker Alcohol: Heavy - 30-pk of beer per day for 20-30 years Drugs: Heroin - daily for about 1 month, last use last night, - - methamphetamine - last use 1 week ago Review of Systems Constitutional: Reports: Anorexia, Malaise, Weakness, Fatigue. Denies: Chills, Fever, Weight Change Eyes: Denies: Blurred vision, Cataracts, Conjunctivae Inflammation, Pain, Redness HEENT: Denies: Difficulty Hearing, Difficulty Swallowing, Head Aches, Hearing Changes, Sinus Congestion, Sinus Drainage Cardiovascular: Reports: Chest Pain. Denies: Claudication, Orthopnea, Palpitations, Paroxysmal Noc. Dyspnea Respiratory: Denies: Cough, Hemoptysis, Shortness of breath at rest, Shortness of breath upon exertion, Sputum production Gastrointestinal: Reports: Nausea, Vomiting. Denies: Abdominal Pain, Constipation Genitourinary: Denies: Dysuria, Frequency Musculoskeletal: Denies: Joint Pain, Joint Tenderness Skin: Denies: Rash, Wounds Neurological: Reports: Tremor. Denies: Focal weakness, Numbness, Tingling Psychiatric: Denies: Anxiety, Depression, Homicidal Ideations, Suicidal Ideations Hematologic/ Lymphatic: Denies: Easy Bruising, Easy Bleeding VTE Information - Inpt Only VTE Present on Admission: No VTE Pharm Prophylaxis ordered?: Yes Patient Problems: Active and Suspected Problems Alcohol withdrawal (Acute) Chest pain, unspecified (Acute) Alcohol withdrawal seizure (Acute) - Physical Exam General: Alert, Oriented x3, Cooperative, No apparent distress, - - restless HEENT: Atraumatic, PERRLA, EOMI, Normocephalic Oral: Moist Mucosa Neck: Supple Lungs: Clear to auscultation, Normal air movement Cardiovascular: Regular rate, Regular Rhythm, Normal S1, Normal S2, No murmurs Abdomen: Bowel Sounds Present, Soft, Non Tender, Non-Distended, No Hepato- splenomegaly Extremities: No edema Skin: No rashes, No breakdown Musculoskeletal: No Tenderness to Palpation of Joints or Extremities Lymphatic: No Cervical, Supraclavicular, or Inguinal Adenopathy Neurological: Cranial nerves II-XII grossly intact Psych/Mental Status: Normal Affect, Anxious, Restless Vital Signs Temp Pulse Resp BP Pulse Ox 98.2 F 89 21 H 110/71 100 03/18/19 07:28 03/18/19 09:00 03/18/19 09:00 03/18/19 09:00 03/18/19 09:00 Oxygen Delivery Method Room Air Weight: 95.254 kg Body Mass Index (BMI) 31.9 Laboratory Tests Past 24 Hrs 03/18/19 03/18/19 03/18/19 08:00 08:00 08:00 WBC 6.3 RBC 4.41 Hgb 14.1 Hct 41.0 MCV 93.0 MCH 32.0 MCHC 34.4 RDW 12.4 RDW Differential 41.8 Plt Count 242 MPV 9.5 Immature Gran % (Auto) 0.200 Neut % (Auto) 59.5 Lymph % (Auto) 30.2 [place] % (Auto) 6.6 Eos % (Auto) 3.0 Baso % (Auto) 0.5 Absolute Neuts (auto) 3.8 Absolute Lymphs (auto) 1.91 Total Counted Not Reportable Sodium Cancelled Potassium Cancelled Chloride Cancelled Carbon Dioxide Cancelled Anion Gap Cancelled BUN Cancelled Creatinine Cancelled Estim Creat Clear Calc Cancelled Est GFR (MDRD) Af Amer Cancelled Est GFR (MDRD) Non-Af Cancelled BUN/Creatinine Ratio Cancelled Glucose Cancelled Calcium Cancelled Troponin I Cancelled Urine Test Urine Opiates Screen Urine Methadone Screen Ur Barbiturates Screen Ur Phencyclidine Scrn Ur Amphetamines Screen U Methamphetamin-MDMA U Benzodiazepines Scrn Urine Cocaine Screen U Cannabinoids Screen Ur Drug Screen Comment Ethyl Alcohol Cancelled 03/18/19 03/18/19 03/18/19 08:36 08:36 09:20 WBC RBC Hgb Hct MCV MCH MCHC RDW RDW Differential Plt Count MPV Immature Gran % (Auto) Neut % (Auto) Lymph % (Auto) [place] % (Auto) Eos % (Auto) Baso % (Auto) Absolute Neuts (auto) Absolute Lymphs (auto) Total Counted Sodium 139 Potassium 3.5 Chloride 106 Carbon Dioxide 28.0 Anion Gap 5 BUN 7 Creatinine 0.68 Estim Creat Clear Calc 107.61 Est GFR (MDRD) Af Amer 121 Est GFR (MDRD) Non-Af 100 BUN/Creatinine Ratio 10.2 Glucose 94 Calcium 8.5 Troponin I < 0.015 Urine Test Urine Opiates Screen NEGATIVE Urine Methadone Screen NEGATIVE Ur Barbiturates Screen NEGATIVE Ur Phencyclidine Scrn NEGATIVE Ur Amphetamines Screen POSITIVE H U Methamphetamin-MDMA NEGATIVE U Benzodiazepines Scrn NEGATIVE Urine Cocaine Screen NEGATIVE U Cannabinoids Screen POSITIVE H Ur Drug Screen Comment Ethyl Alcohol 5.0 03/18/19 09:20 WBC RBC Hgb Hct MCV MCH MCHC RDW RDW Differential Plt Count MPV Immature Gran % (Auto) Neut % (Auto) Lymph % (Auto) [place] % (Auto) Eos % (Auto) Baso % (Auto) Absolute Neuts (auto) Absolute Lymphs (auto) Total Counted Sodium Potassium Chloride Carbon Dioxide Anion Gap BUN Creatinine Estim Creat Clear Calc Est GFR (MDRD) Af Amer Est GFR (MDRD) Non-Af BUN/Creatinine Ratio Glucose Calcium Troponin I Urine Test Negative Urine Opiates Screen Urine Methadone Screen Ur Barbiturates Screen Ur Phencyclidine Scrn Ur Amphetamines Screen U Methamphetamin-MDMA U Benzodiazepines Scrn Urine Cocaine Screen U Cannabinoids Screen Ur Drug Screen Comment Ethyl Alcohol Assessment/Plan All Active Problems Alcohol withdrawal (Acute) Chest pain, unspecified (Acute) Alcohol withdrawal seizure (Acute) 44 year old F with past medical history of polysubstance use, alcohol use disorder who comes in with complaints of possible seizure, as well as chest discomfort. Patient states she stopped drinking cold turkey. She drinks about 30 pack of beer every day. She admits to snorting a long row of heroin daily. She also smokes 1/2 - 1 pack per day. 1. Acute alcohol withdrawal in a patient with chronic alcohol use disorder, admitting CIWA score in the ED was 24, Reportedly possible seizure, likely alcohol related Patient is not a candidate for [facility] as she has no insurance. Plan: Admit to MedSurg, seizure precaution, monitor per alcohol withdrawal protocol, Ativan taper, thiamine, folic acid, 2. Possible seizure disorder likely alcohol-related, on Ativan taper, seizure precautions in place, continue to monitor 3. Reported heroin use disorder, urine tox negative for opioids, will resume clonidine and other medications for symptom management, will hold off treating with buprenorphine for now, we will continue to monitor 4. Nicotine dependence, on replacement 5. DVt PPx- early ambulation Code Visit OBSV E&M: 79492 Initial observation care L3
--- NOTE | 2019-03-18 10:05 | NURSING ---
MED SURG SEIZURE/ALCOHOL WITHDRAWAL, CP PAINTSIL
--- NOTE | 2019-03-18 10:30 | CM.ED ---
Social Work Assessment Referral Date: 03/18/19 Date of Assessment: 03/18/19 Informant: DR. DEJESUS Reason for Consult: NO INSURANCE/NO PCP Information obtained from: PATIENT Living Arrangements: PATIENT REPORTS LIVES HOME WITH FRIEND IN AN APARTMENT DME: NONE Employment/Financial: UNEMPLOYED/NO INCOME PER PATIENT Supports: PATIENT REPORTS LIMITED SUPPORT Mental Health History: PATIENT REPORTS HX OF ANXIETY AND DEPRESSION, NOT TREATED. PATIENT STATES, IT'S WHY I DRINK. Substance Abuse History: PATIENT ADMITS TO HX OF SUBSTANCE ABUSE. Substance(s) of choice: ALCOHOL, HEROIN Last use: DAILY USE Interventions: SOCIAL SERVICE ASSESSMENT EDUCATION ON TREATMENT OPTIONS EDUCATION ON MEDICAID PATIENT DOES NOT HAVE INSURANCE. PATIENT REPORTS HAS APPLIED FOR MEDICAID, I'M WAITING ON SOMETHING. PATIENT PROVIDED WITH CONTACT NUMBER FOR MEDICAID HOTLINE, AND ENCOURAGED TO CALL TO FOLLOW UP ON STATUS. Assessment: PATIENT IS A 44 Y/O FEMALE WHO PRESENTS TO ED WITH CHEST PAIN. PATIENT IS SELF-PAY. INTRODUCED ROLE AND REASON FOR REFERRAL BY ED PHYSICIAN. PATIENT EDUCATED ON MEDICAID PROCESS AND PROVIDED WITH CONTACT INFORMATION FOR MEDICAID. PATIENT REPORTS LIVES HOME WITH FRIEND IN AN APARTMENT. PATIENT STATES FRIEND HELPS SUPPORT HER. PATIENT ADMITS TO DAILY USE OF ALCOHOL AND HEROIN. OPTIONS DISCUSSED. PER PHYSICIAN, PATIENT WILL BE ADMITTED. ENCOURAGED PATIENT TO FOLLOW UP WITH MEDICAID TO CHECK ON STATUS OF APPLICATION, PATIENT REPORTS HAS ALREADY APPLIED. PLAN: ADMIT
[2019-03-18] MEDS: Ketorolac 15 MG/ML Vial IV (10:52)
[2019-03-18] MEDS: 0.9% Normal Saline 1,000 ML 100 ML IV ×2 (11:39→20:52)
[2019-03-18] MEDS: Acetaminophen 325 MG Tablet 650 MG PO (11:39)
[2019-03-18] MEDS: Methocarbamol 750 MG Tablet PO (12:23)
[2019-03-18] MEDS: hydrOXYzine PAM 25 MG Capsule 50 MG PO (12:23)
[2019-03-18] MEDS: LORazepam 1 MG Tablet PO ×2 (12:43→15:01)
[2019-03-18] MEDS: Thiamine Hydrochloride 100 MG Tablet PO (12:44)
[2019-03-18] MEDS: Folic Acid 1 MG Tablet PO (12:44)
--- NOTE | 2019-03-18 12:54 | NEWVISION ---
Patient does not have medical insurance. Patient reports that having mental health and or AOD counseling is probably useless because the moment I am stressed I use something to not have to deal with it. Patient unsure if she wants any other help other than social work to help her obtain insurance.
[2019-03-18] MEDS: Buprenorphine HCl 2 MG TAB.SUBL 4 MG SL (15:00)
[2019-03-18] MEDS: cloNIDine HCl 0.1 MG Tablet PO (15:01)
[2019-03-18] MEDS: Dicyclomine 10 MG Capsule 20 MG PO (15:01)
[2019-03-18] MEDS: Pramipexole Di-HCl 0.25 MG Tablet PO (15:01)
--- NOTE | 2019-03-18 21:08 | NURSING ---
Pt very drowsy at this time. Allowed this RN to do a set of vitals, but yelled get the fuck out of here, let me sleep when trying to give scheduled medications and do assessment. Charted against scheduled meds, will continue to monitor.
[2019-03-19] VITALS (13 sets, daily range): BP systolic 109–131; BP diastolic 67–82; PULSE 75–88; RESP 16–18; TEMP 36.6–37.2; O2SAT 98–100
[2019-03-19] MEDS: LORazepam 1 MG Tablet PO ×4 (01:20→20:36)
[2019-03-19] MEDS: cloNIDine HCl 0.1 MG Tablet PO ×2 (01:20→20:35)
[2019-03-19] MEDS: Pramipexole Di-HCl 0.25 MG Tablet PO (03:44)
[2019-03-19] MEDS: Ibuprofen 600 MG Tablet PO (03:44)
[2019-03-19] MEDS: 0.9% Normal Saline 1,000 ML 100 ML IV ×2 (06:13→17:51)
--- NOTE | 2019-03-19 09:13 | PN_ITS ---
Patient Problems: Active and Suspected Problems Alcohol withdrawal (Acute) Chest pain, unspecified (Acute) Alcohol withdrawal seizure (Acute) Subjective: Patient was seen and examined. She complains of feeling lousy, has generalised aches, strongly says she is withdrawing from snorting and using IV heroin. She feels restless, cannot get comfortable, has cramps. Objective: Physical Exam General: Alert, Oriented x3, Cooperative, No apparent distress, - - restless HEENT: Atraumatic, PERRLA, EOMI, Normocephalic Oral: Moist Mucosa Neck: Supple Lungs: Clear to auscultation, Normal air movement Cardiovascular: Regular rate, Regular Rhythm, Normal S1, Normal S2, No murmurs Abdomen: Bowel Sounds Present, Soft, Non Tender, Non-Distended, No Hepato- splenomegaly Extremities: No edema Skin: No rashes, No breakdown Musculoskeletal: No Tenderness to Palpation of Joints or Extremities Lymphatic: No Cervical, Supraclavicular, or Inguinal Adenopathy Neurological: Cranial nerves II-XII grossly intact Psych/Mental Status: Normal Affect, Anxious, Restless Vitals/I&O's: Vital Signs Temp Pulse Resp BP Pulse Ox 97.8 F 78 16 116/67 99 03/19/19 01:17 03/19/19 07:27 03/19/19 01:17 03/19/19 01:17 03/18/19 18:00 Oxygen Delivery Method Room Air Weight: 92.4 kg Body Mass Index (BMI) 31.1 Intake and Output for Last 24 Hours 03/17/19 03/18/19 03/19/19 23:59 23:59 23:59 Intake Total 1216 / 1216 636 / 636 Output Total 500 / 500 Balance 1216 / 1216 136 / 136 Laboratory Results 03/18/19 09:20: Urine Opiates Screen NEGATIVE, Urine Methadone Screen NEGATIVE, Ur Barbiturates Screen NEGATIVE, Ur Phencyclidine Scrn NEGATIVE, Ur Amphetamines Screen POSITIVE H, U Methamphetamin-MDMA NEGATIVE, U Benzodiazepines Scrn NEGATIVE, Urine Cocaine Screen NEGATIVE, U Cannabinoids Screen POSITIVE H, Ur Drug Screen Comment 03/18/19 09:20: Urine Test Negative 03/18/19 11:50: Troponin I < 0.015 03/18/19 14:50: Troponin I < 0.015 Current Medications Acetaminophen (Tylenol) 500 mg PO Q4H PRN PRN PRN Reason: Temp > 100.4 F Aspirin (Ecotrin) 81 mg PO DAILY@0800 [facility] Bisacodyl (Dulcolax) 10 mg RECTAL DAILY PRN PRN Reason: Constipation Clonidine (Catapres) 0.1 mg PO Q2H PRN PRN PRN Reason: Hot/Cold Sweats or Anxiety Last Admin: 03/19/19 01:20 Dose: 0.1 mg Documented by: Dicyclomine HCl (Bentyl) 20 mg PO Q6H PRN PRN PRN Reason: abdominal discomfort Last Admin: 03/18/19 15:01 Dose: 20 mg Documented by: Folic Acid (Folic Acid) 1 mg PO DAILYCM [facility] Stop: 03/20/19 08:01 Last Admin: 03/18/19 12:44 Dose: 1 mg Documented by: Hydroxyzine Pamoate (Vistaril Pamoate Capsule) 50 mg PO Q6H PRN PRN PRN Reason: Mild Anxiety (score 1/3) Last Admin: 03/18/19 12:23 Dose: 50 mg Documented by: Sodium Chloride () 1,000 mls @ 100 mls/hr IV .Q10H [facility]ARA Last Admin: 03/19/19 06:13 Dose: 100 mls/hr Documented by: Ibuprofen (Motrin) 600 mg PO Q8H PRN PRN PRN Reason: Mild-Moderate Pain (1-5/10) Last Admin: 03/19/19 03:44 Dose: 600 mg Documented by: Loperamide HCl (Imodium) 2 - 4 mg PO UD PRN PRN Reason: LOOSE STOOLS Lorazepam (Ativan) 1 mg IV Q4H PRN PRN PRN Reason: Severe Anxiety Last Admin: 03/18/19 12:22 Dose: 1 mg Documented by: Lorazepam (Ativan) 2 mg IV X1 PRN PRN Reason: Seizure Lorazepam (Ativan) 1 mg PO Q6H [facility]ARA; Taper Stop: 03/21/19 15:59 Last Admin: 03/19/19 03:45 Dose: 1 mg Documented by: Methocarbamol (Methocarbamol) 750 mg PO Q6H PRN PRN PRN Reason: Muscle Aches Last Admin: 03/18/19 12:23 Dose: 750 mg Documented by: [facility] Nicotine (Nicoderm Cq (Pbkc)) 21 mg TRANSDERM. DAILY [facility] Last Admin: 03/18/19 15:03 Dose: 21 mg Documented by: Nitroglycerin (Nitrostat) 0.4 mg SUBLINGUAL Q5M PRN PRN Reason: CHEST PAIN Pramipexole Dihydrochloride (Mirapex) 0.25 mg PO Q12H PRN PRN PRN Reason: Restless Legs Last Admin: 03/19/19 03:44 Dose: 0.25 mg Documented by: Senna (Senokot) 1 tablet PO QHS PRN PRN Reason: Constipation Sodium Chloride () 5 - 15 ml IV UD PRN PRN Reason: SALINE FLUSH Thiamine HCl (Vitamin B1) [facility] Stop: 03/20/19 08:01 Last Admin: 03/18/19 12:44 Dose: 100 mg Documented by: Trazodone HCl (Desyrel) 50 mg PO QHS [facility] Last Admin: 03/19/19 00:26 Dose: Not Given Documented by: Medical Necessity - Tobacco Use Smoking Status: Current every day smoker Assessment/Plan All Active Problems Alcohol withdrawal (Acute) Chest pain, unspecified (Acute) Alcohol withdrawal seizure (Acute) 44 year old F with past medical history of polysubstance use, alcohol use disorder who comes in with complaints of possible seizure, as well as chest discomfort. Patient states she stopped drinking cold turkey. She drinks about 30 pack of beer every day. She admits to snorting a long row of heroin daily. She also smokes 1/2 - 1 pack per day. 1. Acute alcohol withdrawal in a patient with chronic alcohol use disorder, admitting CIWA score in the ED was 24, Reportedly possible seizure, likely alcohol related, patient is not a candidate for [facility] as she has no insurance. CIWA score today is 3. Continue with seizure precaution, monitor per alcohol withdrawal protocol, Ativan taper, thiamine, folic acid, 2. Possible seizure disorder likely alcohol-related, on Ativan taper, seizure precautions in place, continue to monitor 3. Reported heroin use disorder, urine tox negative for opioids, will continue on opioid withdrawal protocol, Subutex taper 4. Nicotine dependence, on replacement 5. DVt PPx- early ambulation Code Visit Inpatient E&M: 43834 Subs Hosp L2
[2019-03-19] MEDS: Multivitamins,Therapeutic Tablet 1 TABLET PO (09:30)
[2019-03-19] MEDS: Aspirin E.C. 81 MG Tablet PO (09:31)
[2019-03-19] MEDS: Folic Acid 1 MG Tablet PO (09:31)
[2019-03-19] MEDS: Buprenorphine HCl 2 MG TAB.SUBL SL ×2 (11:37→20:35)
[2019-03-19] MEDS: Thiamine Hydrochloride 100 MG Tablet PO (14:13)
--- NOTE | 2019-03-19 15:24 | CASEMGMT ---
SW went to check in with patient. She was sleeping sitting up in bed with her lunch tray in front of her. Her hand was actually on her sandwich. SW said her name and she did wake up. PAPITO introduced self. PAPITO asked her about Medicaid application and phone number given to her by ED SW. She said this is the most she has been awake since she has been here. She did not have much to say other than this is the most I have been awake. SW will attempt to stop by another time to see if she has any other needs. Saadia HARRIS [employer]
[2019-03-19] MEDS: Acetaminophen 500 MG Tablet PO (20:36)
[2019-03-19] MEDS: Nitroglycerin (INPATIENT USE) 0.4 MG TAB.SUBL SUBLINGUAL (21:05)
[2019-03-20 02:25] VITALS: BP 113/70; PULSE 72; RESP 20; TEMP 36.3
[2019-03-20] MEDS: LORazepam 1 MG Tablet PO ×4 (02:28→23:43)
[2019-03-20] MEDS: Buprenorphine HCl 2 MG TAB.SUBL SL ×3 (02:28→18:03)
[2019-03-20] MEDS: 0.9% NaCl Peripheral Flush Adult/Peds IV (02:28)
[2019-03-20 02:58] VITALS: PULSE 79
[2019-03-20] MEDS: 0.9% Normal Saline 1,000 ML 100 ML IV (03:30)
[2019-03-20 07:59] VITALS: PULSE 63
[2019-03-20 08:35] VITALS: BP 110/72; PULSE 76; RESP 14; TEMP 36.4
[2019-03-20] MEDS: Acetaminophen 500 MG Tablet PO ×2 (08:40→21:36)
[2019-03-20] MEDS: hydrOXYzine PAM 25 MG Capsule 50 MG PO ×2 (08:40→15:56)
[2019-03-20] MEDS: Aspirin E.C. 81 MG Tablet PO (08:41)
[2019-03-20] MEDS: Folic Acid 1 MG Tablet PO (08:41)
[2019-03-20] MEDS: cloNIDine HCl 0.1 MG Tablet PO ×2 (08:41→21:36)
--- NOTE | 2019-03-20 09:45 | PN_ITS ---
Patient Problems: Active and Suspected Problems Alcohol withdrawal (Acute) Chest pain, unspecified (Acute) Alcohol withdrawal seizure (Acute) Subjective: Patient was seen and examined. She is feeling much better. Denies any nausea or vomiting. Seen sitting up in her bed and eating breakfast. Objective: Physical Exam General: Alert, Oriented x3, Cooperative, No apparent distress, - - restless HEENT: Atraumatic, PERRLA, EOMI, Normocephalic Oral: Moist Mucosa Neck: Supple Lungs: Clear to auscultation, Normal air movement Cardiovascular: Regular rate, Regular Rhythm, Normal S1, Normal S2, No murmurs Abdomen: Bowel Sounds Present, Soft, Non Tender, Non-Distended, No Hepato- splenomegaly Extremities: No edema Skin: No rashes, No breakdown Musculoskeletal: No Tenderness to Palpation of Joints or Extremities Lymphatic: No Cervical, Supraclavicular, or Inguinal Adenopathy Neurological: Cranial nerves II-XII grossly intact Psych/Mental Status: Normal Affect, Anxious, Restless Vitals/I&O's: Vital Signs Temp Pulse Resp BP Pulse Ox 97.3 F L 79 20 H 113/70 98 03/20/19 02:25 03/20/19 02:58 03/20/19 02:25 03/20/19 02:25 03/19/19 18:02 Oxygen Delivery Method Room Air Weight: 91.8 kg Body Mass Index (BMI) 31.1 Intake and Output for Last 24 Hours 03/18/19 03/19/19 03/20/19 23:59 23:59 23:59 Intake Total 1216 / 1216 3497 / 3497 616 / 616 Output Total 1800 / 1800 Balance 1216 / 1216 1697 / 1697 616 / 616 Current Medications Acetaminophen (Tylenol) 500 mg PO Q4H PRN PRN PRN Reason: Temp > 100.4 F Last Admin: 03/20/19 08:40 Dose: 500 mg Documented by: Aspirin (Ecotrin) 81 mg PO DAILY@0800 [facility] Last Admin: 03/20/19 08:41 Dose: 81 mg Documented by: Bisacodyl (Dulcolax) 10 mg RECTAL DAILY PRN PRN Reason: Constipation Buprenorphine HCl (Buprenorphine Hcl) 4 mg SL Q8H [facility]ARA; Taper Stop: 03/22/19 14:14 Last Admin: 03/20/19 02:28 Dose: 4 mg Documented by: Clonidine (Catapres) 0.1 mg PO Q2H PRN PRN PRN Reason: Hot/Cold Sweats or Anxiety Last Admin: 03/20/19 08:41 Dose: 0.1 mg Documented by: Dicyclomine HCl (Bentyl) 20 mg PO Q6H PRN PRN PRN Reason: abdominal discomfort Last Admin: 03/18/19 15:01 Dose: 20 mg Documented by: Hydroxyzine Pamoate (Vistaril Pamoate Capsule) 50 mg PO Q6H PRN PRN PRN Reason: Mild Anxiety (score 1/3) Last Admin: 03/20/19 08:40 Dose: 50 mg Documented by: Sodium Chloride () 1,000 mls @ 100 mls/hr IV .Q10H [facility] Last Admin: 03/20/19 03:30 Dose: 100 mls/hr Documented by: Ibuprofen (Motrin) 600 mg PO Q8H PRN PRN PRN Reason: Mild-Moderate Pain (1-5/10) Last Admin: 03/19/19 03:44 Dose: 600 mg Documented by: Loperamide HCl (Imodium) 2 - 4 mg PO UD PRN PRN Reason: LOOSE STOOLS Lorazepam (Ativan) 1 mg IV Q4H PRN PRN PRN Reason: Severe Anxiety Last Admin: 03/18/19 12:22 Dose: 1 mg Documented by: Lorazepam (Ativan) 2 mg IV X1 PRN PRN Reason: Seizure Lorazepam (Ativan) 1 mg PO Q8H [facility]; Taper Stop: 03/21/19 15:59 Last Admin: 03/20/19 08:41 Dose: 1 mg Documented by: Methocarbamol (Methocarbamol) 750 mg PO Q6H PRN PRN PRN Reason: Muscle Aches Last Admin: 03/18/19 12:23 Dose: 750 mg Documented by: Multivitamins (Multivitamin) 1 tablet PO DAILYCM [facility] Last Admin: 03/19/19 09:30 Dose: 1 tablet Documented by: Nicotine (Nicoderm Cq (Pbkc)) 21 mg TRANSDERM. DAILY [facility] Last Admin: 03/20/19 08:40 Dose: 21 mg Documented by: Nitroglycerin (Nitrostat) 0.4 mg SUBLINGUAL Q5M PRN PRN Reason: CHEST PAIN Last Admin: 03/19/19 21:05 Dose: 0.4 mg Documented by: Pramipexole Dihydrochloride (Mirapex) 0.25 mg PO Q12H PRN PRN PRN Reason: Restless Legs Last Admin: 03/19/19 03:44 Dose: 0.25 mg Documented by: Senna (Senokot) 1 tablet PO QHS PRN PRN Reason: Constipation Sodium Chloride () 5 - 15 ml IV UD PRN PRN Reason: SALINE FLUSH Last Admin: 03/20/19 02:28 Dose: 10 ml Documented by: Trazodone HCl (Desyrel) 50 mg PO QHS [facility] Last Admin: 03/19/19 21:58 Dose: Not Given Documented by: Medical Necessity - Tobacco Use Smoking Status: Current every day smoker Assessment/Plan All Active Problems Alcohol withdrawal (Acute) Chest pain, unspecified (Acute) Alcohol withdrawal seizure (Acute) 44 year old F with past medical history of polysubstance use, alcohol use d isorder who comes in with complaints of possible seizure, as well as chest discomfort. Patient states she stopped drinking cold turkey. She drinks about 30 pack of beer every day. She admits to snorting a long row of heroin daily. She also smokes 1/2 - 1 pack per day. 1. Acute alcohol withdrawal in a patient with chronic alcohol use disorder, improving, continue with seizure precaution, monitor per alcohol withdrawal protocol, Ativan taper, thiamine, folic acid, 2. Possible seizure disorder likely alcohol-related, on Ativan taper, seizure precautions in place, continue to monitor 3. Reported heroin use disorder, urine tox negative for opioids, on Subutex taper 4. Nicotine dependence, on replacement 5. DVt PPx- early ambulation Code Visit Inpatient E&M: 37834 Subs Hosp L2
[2019-03-20] MEDS: Methocarbamol 750 MG Tablet PO (10:07)
[2019-03-20] MEDS: Dicyclomine 10 MG Capsule 20 MG PO (10:07)
--- NOTE | 2019-03-20 12:26 | CASEMGMT ---
Addendum entered by Rachele Diaz 03/20/19 15:03: Pt is still soundly sleeping at this time. SW spoke w/Lara from [facility], Lara did give pt resources in regard to her substance abuse. SW will try to see pt again if time allows. GINA Paula Original Note: SW did attempt to speak w/pt today, she is sleeping soundly and not waking to SW voice. SW will try again later today to see pt as time allows. GINA Paula
--- NOTE | 2019-03-20 15:49 | CASEMGMT ---
SW spoke w/pt briefly in the room in regard to financial status and assist for drug and alcohol use. SW gave pt resources including [employer], [employer], [facility], [facility] assist, and food [place] in the area. SW also gave pt information on [facility]. SW explained that they have a sliding scale at [facility]. SW inquired if she has ever been there before, pt states she has, states it's been a long time. Pt tearful, saying she wants to go somewhere away from [place] or she is just going to keep using. Though she has an [place] address she stays in [place]. SW explained that unfortunately since she does not have insurance there are not many options of inpt places to go. SW explained that if she follows up w/[facility] they may be able to assist, explained that they do have a correction house. SW also asked pt about [facility], if she would be interested in going there. Pt states no, it's on [facility], she does not want to go there. She also is not interested in going to a [place] with [facility]. Pt states nobody will help her because she is poor, and that everyone just wants her go back to using drugs. SW attempted to encourage pt to follow up on her Medicaid, as she had told the ED SW she needed to follow up on something with it, and had not done so. Pt did state she has not really followed through. SW tried to explain to pt that it may be good to follow up w/Medicaid as this may open up more opportunities for her. Pt then told SW that SW is making her feel worse and asked SW to leave. RN did follow up on w/pt regarding her mental status, pt denies to RN being suicidal. SW did call [facility], message left to see if they know of any other options for someone who is self pay. GINA Paula
[2019-03-20] MEDS: Ibuprofen 600 MG Tablet PO (15:56)
[2019-03-20] MEDS: Thiamine Hydrochloride 100 MG Tablet PO (15:57)
[2019-03-20] MEDS: Multivitamins,Therapeutic Tablet 1 TABLET PO (15:57)
[2019-03-20 16:00] VITALS: BP 126/66; PULSE 79; RESP 18; TEMP 36.4
[2019-03-20 21:20] VITALS: BP 114/71; PULSE 83; RESP 18; TEMP 36.6
[2019-03-20] MEDS: Senna Tablet 1 TABLET PO (21:36)
--- NOTE | 2019-03-21 00:58 | NURSING ---
pt set off bed exit nurse in to assist asked to wait for assist as we dont wont her to fall. pt yelled im gonna go off! Get the fuck out of here, get the other nurse! shut the bathroom door now! continues to yell swear words at staff and not allow staff to monitor her for safety, primary rn aware. call light in bathroom in reach.
[2019-03-21 02:37] VITALS: BP 106/61; PULSE 89; RESP 16; TEMP 36.6
[2019-03-21] MEDS: Buprenorphine HCl 2 MG TAB.SUBL SL (02:41)
[2019-03-21] MEDS: Ibuprofen 600 MG Tablet PO (02:41)
--- NOTE | 2019-03-21 07:50 | DCINST_ITS ---
- Discharge Diagnoses Current Active Problems: Current Active and Chronic Problems Alcohol withdrawal (Acute) Chest pain, unspecified (Acute) Alcohol withdrawal seizure (Acute) Polysubstance (including opioids) dependence, daily use (Chronic) Nicotine dependence (Chronic) Alcohol abuse (Chronic) Reason(s) for Visit for Discharge Instructions: Acute alcohol withdrawal You will use the following diet at home:: Regular Your food should be the consistency of: Regular Your liquids should be the consistency of: Regular/Thin Discharge Activity: Return to Normal Activity Additional Instructions: You are strongly advised to quit drinking and using heroin, methamphetamines. Continue with an outpatient drug rehab program from resources given to you. Allergies/Adverse Reactions: Allergies No Known Allergies Allergy (Verified 03/18/19 07:32) Medications to take at Discharge NK 03/18/19 Primary Care Physician: Care Physician,No Primary [Primary Care Provider] - Please follow up with your Primary Care Physician in: within 1-2 weeks Test Results: Test results from this visit will be discussed in further detail at your follow- up appointment, if applicable. Proposed Discharge Date: 03/21/19
--- NOTE | 2019-03-21 07:52 | DS.PCM_ITS ---
Discharge Date and Diagnosis Date of Admission: 03/18/19 Date of Discharge: 03/21/19 - Primary Discharge Diagnosis Active and Suspected Problems Alcohol withdrawal (Acute) Chest pain, unspecified (Acute) Alcohol withdrawal seizure (Acute) Nicotine dependence Acute opiate withdrawal - Secondary Discharge Diagnosis Chronic Problems Polysubstance (including opioids) dependence, daily use (Chronic) Nicotine dependence (Chronic) Alcohol abuse (Chronic) Hospital Course and Treatment Imaging Results: Clinical Impression(s) from Imaging Studies Brain CT 03/18/19 07:45 IMPRESSION: Normal unenhanced CT scan of the brain. Electronically Signed: Glenda Lopez, at 9:20 EDT Tel , Service support , Chest X-Ray 03/18/19 09:10 IMPRESSION: Normal x-ray examination of the chest. Electronically Signed: Glenda Lopez, at 10:14 EDT Tel , Service support , Soft Tissue Ultrasound 03/21/19 09:58 IMPRESSION: Large mildly complex left popliteal cyst. Electronically Signed: Jeff Marie MD at 10:39 EDT , Service support , None Operations: None Procedures: None Summary of Care Provided: 44 year old F with past medical history of polysubstance use, alcohol use disorder who comes in with complaints of possible seizure, as well as chest discomfort. Patient states she stopped drinking cold turkey. She drinks about 30 pack of beer every day. She admits to snorting a long row of heroin daily. She also smokes 1/2 - 1 pack per day. Her management was as follows: Acute alcohol withdrawal in a patient with chronic alcohol use disorder, managed with seizure precaution,alcohol withdrawal protocol, Ativan taper, thiamine, folic acid, with improvement. Suggest with noted. She was also treated for opioid withdrawal with Subutex. She had intermittent episodes of agitation on the floor. She did not require security intervention. On the day of discharge patient complains of swelling in the left popliteal fossa, that has been present for weeks. Ultrasound of the knee showed complex popliteal cyst. Patient was started to be agitated and had walked out of the floor before showing her the results of her ultrasound. Subjective: On the day of discharge, patient complains of pain in the left popliteal knee, which has been going on for weeks. She states she cannot stand on it. Asked PT and OT to see her, but patient was seen ambulating in the halls with no issues. Objective: Physical Exam General: Alert, Oriented x3, Cooperative, No apparent distress Oral: Moist Mucosa Neck: Supple Lungs: Clear to auscultation, Normal air movement Cardiovascular: Regular rate, Regular Rhythm, Normal S1, Normal S2, No murmurs Abdomen: Bowel Sounds Present, Soft, Non Tender, Non-Distended, No Hepato- splenomegaly Extremities: No edema Skin: No rashes, No breakdown Musculoskeletal: No Tenderness to Palpation of Joints or Extremities Lymphatic: No Cervical, Supraclavicular, or Inguinal Adenopathy Neurological: Cranial nerves II-XII grossly intact Psych/Mental Status: Normal Affect, Anxious, Restless - Physical Exam Vital Signs Temp Pulse Resp BP Pulse Ox 98 F 89 16 106/61 98 03/21/19 02:37 03/21/19 02:37 03/21/19 02:37 03/21/19 02:37 03/19/19 18:02 Oxygen Delivery Method Room Air Weight: 91.8 kg Body Mass Index (BMI) 31.1 Intake and Output for Last 24 Hours 03/19/19 03/20/19 03/21/19 23:59 23:59 23:59 Intake Total 3497 / 3497 2300 / 2300 400 / 400 Output Total 1800 / 1800 Balance 1697 / 1697 2300 / 2300 400 / 400 Discharge Diet: No Restrictions Discharge Activity: Return to Normal Activity Home Medications: Medications to take at Discharge NK 03/18/19 Primary Care Physician: Care Physician,No Primary [Primary Care Provider] - Please follow up with your Primary Care Physician in: within 1-2 weeks Disposition: Home Minutes spent on discharge:: 40 Patient Condition:: Stable Medical Necessity - Tobacco Use Smoking Status: Current every day smoker Tobacco Use: Cigarettes Meaningful Use Info Meaningful Use Diagnoses (Choose all that apply): None applicable Code Visit Inpatient E&M: 26170 Disch Hosp
[2019-03-21 08:24] VITALS: BP 98/61; PULSE 75; RESP 14; TEMP 36.4; O2SAT 100
[2019-03-21 08:27] VITALS: BP 106/61; PULSE 75; RESP 14; TEMP 36.4
--- NOTE | 2019-03-21 08:37 | NURSING ---
back into room to give scheduled and prn meds as pt requests something for headache-. pt labile with mood. just get out of my fucking room. I don't want any of my fucking meds, other than my tylenol. reinforced med ordered and inquired about pt nicotine patch, pt replies i dont want any of my fucking my meds, why does everyone have to be so fucking member service representative around here. I don't even want my fucking tylenol now, just get the fuck out of my room. informed pt she has discharge orders/papers if she would like to leave due to displeasure.
--- NOTE | 2019-03-21 09:47 | NURSING ---
in to provide discharge teaching- pt declines any teaching, instructions. informs nurse to get out my room. i want to see my doctor. informed pt will page md and let her know pt would like to speak with her.
--- NOTE | 2019-03-21 09:58 | US_ITS ---
STUDY: SUPERFICIAL ULTRASOUND - POPLITEAL FOSSA REASON FOR EXAM: Female, 44 years old. Palpable abnormality of the popliteal fossa TECHNIQUE: A superficial ultrasound was performed with real-time and static sharma-scale imaging. COMPARISON: None. FINDINGS: There is a large (7.8 x 5.6 x 4.8 cm) cystic mass with internal spectral foci, minimal septations. However, no solid vascular component is seen. US/Ext Non Vasc Limited/Soft Tiss IMPRESSION: Large mildly complex left popliteal cyst. Electronically Signed: Jeff Marie MD at 10:39 EDT , Service support ,
--- NOTE | 2019-03-21 11:15 | NURSING ---
physical therapy in to see pt- pt asks him to leave. pt states she needs to go to restroom, physical therapy offers to assist her, pt refuses. P.T. informs pt they will get nurse to assist. Said nurse to room. pt yells you are the bitch who was in here earlier. informed pt i am here to assist as pt reports she needs to use the bathroom pt yells again you are the bitch, like i said. side rail put down. pt ambulates to bathroom per self, gait steady. Karen Fernández at bedside as well for nurse safety d/t pt yelling. pt continues to yell at nurses while pt is in the bathroom. Pt states she would like to speak the doctor- Karen Rn notified Dr. Cuello. pt comes out of the bathroom and yells to nurses i didn't wash my hands, now see me hands, i bet you don't want me to touch you pt holding hands up to her face palm side out towards nurses and takes step towards nurse. pt states i want my clothes. pt ambulates to the side of room where closet is, pt gets her pants out of closet. pt states my stuff is locked up. pt moves to side of bed. said nurse unlocks top cupboard and belongings given to pt. pt continues to yell and argumentative with staff. staff closed pt door- call to security and call to md. able to hear pt yelling even with door closed.
--- NOTE | 2019-03-21 11:17 | NURSING ---
Koby with therapy attempted to enter room. Pt refused to work with him and stated she needs to go to the bathroom and requested staff. Gretchen RN in room when this RN walked up. Pt yelling at Gretchen upon her entry into room. pt stomping around room and into bathroom. Requested her belongings, which Gretchen assisted with getting to her. Pt yelled and stated that she doesn't need any help and that she will dress herself and demanded that we get out. Pt states that this could easily happen to anyone including you and gestured to both Gretchen and this RN. She then yelled- and I hope that it does happen to you!! She states she worked for 20years before this and didn't plan to be this way. For staff safety- both Gretchen and this RN in room with pt and left together. Security was called and Emiliano came to unit to be here when pt exited building. During shift superintendent caustic cresylate report that pt was attempting to say that one staff member was saying rude things to her- while Alecia was reminding pt that never happened. Pt paranoid during shift superintendent caustic cresylate per report and exhibited same behavior this morning prior to d/c. Pt yelling in her room while changing and again stomping her feet. Upon entering room exited wrong way and this RN notified pt that exit was the other way. Pt continued to yell at staff and say that she hopes it does happen to you! Pt then entered elevator and left unit. Emiliano here observing exit from [facility].
--- NOTE | 2019-03-21 11:37 | NURSING ---
see notes entered from both AFSANEH Godinez and this RN---
--- NOTE | 2019-03-21 12:05 | NURSING ---
This RN called patient's cell phone number and left a message that she had left before results of Ultrasound of knee returned. Notified that she could call back to hospital, gave charge nurse cell phone #, but that she needs to follow up with her primary care physician.
[2019-03-30 09:51] VITALS: BMI 30.1
== END 2019-03-21 11:26 | disposition home or self-care (01) ==
LOC: ED 10:02 → MS2 10:50
PROVIDERS: Admitting Provider Internal Medicine; Emergency Provider Emergency Medicine; Family Provider Family Medicine; PCP Family Medicine; Visit Provider Internal Medicine
DX: R07.89 Other chest pain (principal); F11.23 Opioid dependence with withdrawal; F10.239 Alcohol dependence with withdrawal, unspecified; F17.210 Nicotine dependence, cigarettes, uncomplicated; I45.19 Other right bundle-branch block
CPT/HCPCS: 36415; 70450; 71046; 76882; 80048; 80307; 80320; 81025; 84484; 85025; 93005; 96361; 96374; 96375; 96376; 99218; 99282; J7030; A4216; G0378; G0480; J2405

== ENCOUNTER 2019-03-30 03:16 | Observation (INO) | payer MEDICAID, SELFPAY ==
[2019-02-13 03:39] VITALS: BMI 32.0
[2019-03-30 03:18] VITALS: BP 137/122; PULSE 84; RESP 22; TEMP 36.5; O2SAT 96; BMI 30.4
--- NOTE | 2019-03-30 05:24 | CT_ITS ---
STUDY: CT BRAIN WITHOUT CONTRAST REASON FOR EXAM: Female, 44 years old. Patient fell RADIATION DOSAGE (If Supplied By Facility): CTDIvol = ( 44.99 ) mGy, DLP = ( 745.49 ) mGycm TECHNIQUE: Transaxial CT imaging of the brain was performed without administration of intravenous contrast material. Individualized dose optimization techniques were used for this CT. COMPARISON: No relevant priors. FINDINGS: Normal soft tissue structures. Normal calvarium. Normal size ventricles and extra-axial spaces for the patient's age. Normal white matter tracts of the cerebral hemispheres. Normal basal ganglia and thalami. Normal brainstem. Normal cerebellum. There is no intracranial hemorrhage. There are no findings of an acute ischemic infarction. Normal visualized paranasal sinuses. CT/Brain/Head without Contrast IMPRESSION: Normal unenhanced CT scan of the brain. No acute findings in the brain Electronically Signed: Douglas Long MD at 6:27 EDT Tel , Service support ,
--- NOTE | 2019-03-30 05:25 | EKG12_ITS ---
Test Reason : SYNCOPE Blood Pressure : / mmHG Vent. Rate : 088 BPM Atrial Rate : 088 BPM P-R Int : 124 ms QRS Dur : 100 ms QT Int : 380 ms P-R-T Axes : 078 065 062 degrees QTc Int : 459 ms Normal sinus rhythm RSR' or QR pattern in V1 suggests right ventricular conduction delay Borderline ECG Confirmed by KAROLINA IRELNAD, RONALD ([id number]), editor publications CHAVA ESTES ([id number]) on 03/31/2019 1:35:27 PM Referred By: ANJELICA Confirmed By:RONALD TURCIOS MD
[2019-03-30] MEDS: 0.9% Normal Saline 1,000 ML 1000 ML IV (05:47)
[2019-03-30] MEDS: LORazepam 2 MG/ML Syringe 1 MG IV ×2 (05:47→07:17)
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
[2019-03-30 06:07] LABS: Bacteria 0 SEEN /hpf (None Seen); Red Blood Cells-Urine 0 SEEN /hpf (0-5); White Blood Cells 0 SEEN /hpf (0-5)
[2019-03-30 06:12] LABS: Absolute Lymphocyte Count 1.16 X10^3/ul (0.83-4.51); Absolute Neutrophil Count 3.8 X10^3/uL (2.0-7.7); Basophil# 0.03 X10^3/uL; Basophil% 0.6 % (0-1); Eosinophil# 0.14 X10^3/uL; Eosinophils% 2.6 % (0-5); Hemoglobin 12.1 g/dl (12.0-15.0); Lymphocyte # 1.16 X10^3/ul (4.0); Lymphocyte % 21.4 % (19-41); Mean Corp Hgb Conc 34.6 g/gl (32-36); Mean Corpuscular Hgb 31.4 pg (27.0-32.0); Mean Corpuscular Volume 90.9 fL (81-99); Mean Platelet Vol. 9.5 fl (6.2-12.0); Monocyte# 0.26 X10^3/uL; Monocyte% 4.8 % (0-10); Neutrophil # 3.82 X10^3/uL (2.7-7.7); Neutrophil % 70.6 % (47-70); Platelet Count 223 K/mm3 (150-450); RBC Distribution Width CV 12.3 % (11.6-14.6); RBC Distribution Width SD 40.1 fl (35.1-43.9); Red Blood Count 3.85 M/mm3 (4.2-5.4); White Blood Count 5.4 K/mm3 (4.4-11.0)
[2019-03-30 06:13] LABS: Color, Urine Yellow (Yellow); Glucose, Dipstick Normal (Normal); Ketone-Dipstick 5 mg/dl (Negative); Leukocyte Esterase-Dipstick 25 /ul (Negative); Nitrite-Dipstick Negative (Negative); Occult Blood-Urine Negative /ul (Negative); Protein-Dipstick Negative (Negative); Urine Bilirubin Dipstick Negative (Negative); Urine Clarity Sl. Cloudy (Clear); Urine Urobilinogen Normal (Normal)
[2019-03-30 06:16] LABS: International Normalized Ratio 1.1; Prothrombin Time (Protime)PT. 14.1 SECONDS (11.7-14.9)
[2019-03-30 06:18] LABS: POSITIVE COUNT NO; POSITIVE DIFFERENTIAL NO; POSITIVE MORPHOLOGY NO
[2019-03-30 06:24] LABS: Mucous, Urine 2+ /hpf (<or=2+); Squamous Epithelial Cells - UA 50-100 SEEN /hpf (5-10)
[2019-03-30 06:28] LABS: ALB/GLOB Ratio 1.1 RATIO (0.9-2.4); AST(SGOT) 150 U/L (15-37); Alanine Aminotransfer ALT/SGPT 105 U/L (13-56); Albumin, Serum 3.1 g/dL (3.2-5.0); Alkaline Phosphatase 146 U/L (45-117); Anion Gap 10 (5-15); BUN 5 mg/dL (7-18); BUN/Creat Ratio 7.2 RATIO (10-20); Chloride 112 mmol/L (98-107); Creatinine, Serum 0.69 mg/dL (0.55-1.02); EST Glomerular Filtration Rate 99 mL/min (>60); Est Glom Filt Rate - Afr Amer 119 mL/min (>60); Estimated Creatinine Clearance 106.05 ml/min; Globulin 2.9 g/dL (2.2-4.2); Glucose 79 mg/dL (74-106); Potassium 3.4 mmol/L (3.5-5.1); Sodium Level 145 mmol/L (136-145)
[2019-03-30 06:43] LABS: Amphetamine Urine VISTA POSITIVE (<1000 ng/mL); Barbiturate Urine VISTA NEGATIVE (< 200 ng/mL); Benzodiazepine Urine VISTA NEGATIVE (< 200 ng/mL); Cocaine Urine VISTA NEGATIVE (< 300 ng/mL); Ecstacy Urine VISTA POSITIVE (< 500 ng/mL); Methadone Urine VISTA NEGATIVE (< 300 ng/mL); PCP Urine VISTA NEGATIVE (< 25 ng/mL); THC Urine VISTA POSITIVE (< 50 ng/mL); Vista UDS pH Range 6
[2019-03-30 07:41] VITALS: RESP 18
[2019-03-30 09:51] VITALS: BMI 30.1
[2019-03-30 09:52] VITALS: BP 133/83; PULSE 94; RESP 18; TEMP 36.9; O2SAT 99
--- NOTE | 2019-03-30 10:14 | CASEMGMT ---
Social Work Note Per Lara with [facility] pt doesn't have insurance so pt is not [facility]. SW will follow up with pt tomorrow in regards to substance abuse. Coco Mendez HISTOTECHNOLOGIST, ANALYST [employer]
[2019-03-30 10:19] VITALS: RESP 20
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
--- NOTE | 2019-03-30 10:25 | NURSING ---
Patient very familiar to this RN- after assessing pt, noticed cyst behind left knee. Reviewed census sheet as this RN remembered what room pt had been in. This RN assisted in discharging this patient on 03/21/19 after pt stayed in this same room. Patient was confronted regarding situation and states that she used her mother's maiden name for her last stay and that she changed it to her real name this stay because she didn't think we would admit her if she didn't. Dr. Bender was notified, John, construction administrative assistant for [facility] notified (stated he would notify Deo Clement), Lara with [facility] notified, case management notified and central registration notified.
--- NOTE | 2019-03-30 10:30 | NURSING ---
charge auditor admitted pt and pt seemingly familiar to staff. denies being just here but in more interrogation with pt stated that cheney is maiden name and that used mothers maiden name at last admission and used different name this time because didnt think would take her again charge aware and dr. barnes and myrtle morton. pt became aggitated and stated, 'well hell i may as well just leave then
[2019-03-30] MEDS: Methocarbamol 750 MG Tablet PO (10:52)
[2019-03-30] MEDS: Pramipexole Di-HCl 0.25 MG Tablet PO (10:52)
[2019-03-30] MEDS: chlordiazePOXIDE 25 MG Capsule 50 MG PO (10:52)
--- NOTE | 2019-03-30 10:57 | SUR.OPER ---
pt given meds for withdrawal score accordingly and stated, dont you get subutex for heroin withdrawal? i was given that last time . charge nurse aware. rufino from [facility] up to floor and unable to admit under [facility]. wade called and registration to see how to proceed. dr. barnes aware that pt was upset over not getting subutex.
--- NOTE | 2019-03-30 11:03 | CASEMGMT ---
RN CM Note: call to PAPITO Hernandez to notify pt admitted for ETOH withdrawal and is not under [facility]. Therese LANDRYN RN ACM
--- NOTE | 2019-03-30 11:26 | NURSING ---
pt called out and states that the medication made her legs worse. notified pt that she received her medications and that she needs to give it time for them to work. Pt became angry and began yelling. She said at least the last time you weren't a bunch of jackasses. I am laying here in misery, is this what I have to do lay in here in misery? Again reminded pt that she received her medications ordered by physician. This RN offered snacks, warm blanket and asked if she needed anything- pt denied. Notified Minda, primary RN.
--- NOTE | 2019-03-30 11:32 | [facility] ---
[facility] met with patient and asked her if she was aware that her [employer] / ?.?? insurance was inactive. Patient reported that she is aware. Patient was very restless and anxious. [facility] to provide referral options later today once patient is feeling better.
--- NOTE | 2019-03-30 11:58 | NURSING ---
pt called out and c/o legs hurting and said, at least last time you guys treated me with respect. 10 morphine is not going to hurt anyone. told pt that noone being treated for withdrawal would ever be prescribed moprhine and that has protocol that follows. stated, yea i need subutex for heroin withdrawal not alcholol! pt offered motrin or tylenol as ordered prn for pain but stated, that aint going to fucking do anything pt then closed eyes and refusing to talk to rn any further.
--- NOTE | 2019-03-30 12:53 | NURSING ---
pt out in hallway pacing and looking for staff. this rn and charge put pt back in room. pt demanding to talk with someone about how being treated and dissrespected. stated, the way you all look at me makes me feel like im a piece of shit and its worse than when im out on the streets pt kicked ashvin out of room stating that wants to talk to someone other than her and that i dont want her back in my room pt again refusing any further meds for pain as ordered and wanting to be treated for heroin withdrawal like last time pt changing story now about how much alcholol consumes and stated, since doing heroin i dont drink like that anymore dr. barnes aware and to room. pt crying and wanting to just leave because you people keep looking at me like that and im sitting here and im not going to be just miserable! pt wanting to leave ama but refusing to sign ama form. stated, im not signing shit sharifa sharp rn unit and aware. pt dressing and left out of main elevators off unit at [id number]. and churn operator aware.
--- NOTE | 2019-03-30 13:12 | PCM.DC.SUM ---
Discharge Date and Diagnosis - Problem List Patient Problems: Active and Suspected Problems Alcohol dependence (Acute) Opiate dependence (Acute) Opiate withdrawal (Acute) Alcohol withdrawal (Acute) Date of Admission: 03/30/19 Date of Discharge: 03/30/19 - Primary Discharge Diagnosis Active and Suspected Problems Alcohol dependence (Acute) Opiate dependence (Acute) Opiate withdrawal (Acute) Alcohol withdrawal (Acute) - Secondary Discharge Diagnosis Chronic Problems Alcoholism (Chronic) Depression (Chronic) Alcohol abuse (Chronic) Hospital Course and Treatment Imaging Results: 03/30/19 05:24 Brain/Head without Contrast [CT] Stat Operations: None, - - MARISSA/RSO Summary of Care Provided: The patient is a 44 year old F Leena seeking treatment for polysubstance abuse. Patient had stated initially that she was drinking 30 beers per day and then injecting heroin. Patient was started on a Librium taper. Later, patient was asking about something for pain in her legs and was offered Tylenol as well as ibuprofen but stated that would not be sufficient was want to be put on buprenorphine. Explained to the patient that we would not be giving her the buprenorphine as she was already on Librium and the risk of overdose be very concerning for that. Patient then changed her story saying that she does not drink every day and that she would really want to be on the buprenorphine. Again did state that she would not be receiving that and I would continue with the Librium. Patient became very upset and tearful and stated that she was going to be leaving AGAINST MEDICAL ADVICE. Of note, patient was admitted to at the end of February with last negative normal [place], same first name and date of . [] Patient Problems: Active and Suspected Problems Alcohol dependence (Acute) Opiate dependence (Acute) Opiate withdrawal (Acute) Alcohol withdrawal (Acute) - Physical Exam Vital Signs Temp Pulse Resp BP Pulse Ox 36.9 C 94 20 H 133/83 H 99 03/30/19 09:52 03/30/19 09:52 03/30/19 10:19 03/30/19 09:52 03/30/19 09:52 Oxygen Delivery Method Room Air Weight: 89.9 kg Body Mass Index (BMI) 30.1 Finger Stick Blood Glucose 223 Laboratory Tests Past 24 Hrs 03/30/19 03/30/19 03/30/19 05:50 05:50 05:50 WBC 5.4 RBC 3.85 L Hgb 12.1 Hct 35.0 L MCV 90.9 MCH 31.4 MCHC 34.6 RDW 12.3 RDW Differential 40.1 Plt Count 223 MPV 9.5 Immature Gran % (Auto) 0.000 Neut % (Auto) 70.6 H Lymph % (Auto) 21.4 [place] % (Auto) 4.8 Eos % (Auto) 2.6 Baso % (Auto) 0.6 Absolute Neuts (auto) 3.8 Absolute Lymphs (auto) 1.16 Total Counted Not Reportable PT 14.1 INR 1.1 Sodium 145 Potassium 3.4 L Chloride 112 H Carbon Dioxide 23.0 Anion Gap 10 BUN 5 L Creatinine 0.69 Estim Creat Clear Calc 106.05 Est GFR (MDRD) Af Amer 119 Est GFR (MDRD) Non-Af 99 BUN/Creatinine Ratio 7.2 L Glucose 79 Calcium 8.0 L Total Bilirubin 0.40 AST 150 H ALT 105 H Alkaline Phosphatase 146 H Troponin I < 0.015 Total Protein 6.0 L Albumin 3.1 L Globulin 2.9 Albumin/Globulin Ratio 1.1 Urine Color Urine Clarity Urine pH Ur Specific [place] Urine Protein Urine Glucose (UA) Urine Ketones Urine Occult Blood Urine Nitrite Urine Bilirubin Urine Urobilinogen Ur Leukocyte Esterase Urine RBC Urine WBC Ur Squamous Epith Cells Urine Bacteria Urine Mucus Urine Opiates Screen Urine Methadone Screen Ur Barbiturates Screen Ur Phencyclidine Scrn Ur Amphetamines Screen U Methamphetamin-MDMA U Benzodiazepines Scrn Urine Cocaine Screen U Cannabinoids Screen Ur Drug Screen Comment Ethyl Alcohol 03/30/19 03/30/19 03/30/19 05:50 05:55 05:55 WBC RBC Hgb Hct MCV MCH MCHC RDW RDW Differential Plt Count MPV Immature Gran % (Auto) Neut % (Auto) Lymph % (Auto) [place] % (Auto) Eos % (Auto) Baso % (Auto) Absolute Neuts (auto) Absolute Lymphs (auto) Total Counted PT INR Sodium Potassium Chloride Carbon Dioxide Anion Gap BUN Creatinine Estim Creat Clear Calc Est GFR (MDRD) Af Amer Est GFR (MDRD) Non-Af BUN/Creatinine Ratio Glucose Calcium Total Bilirubin AST ALT Alkaline Phosphatase Troponin I Total Protein Albumin Globulin Albumin/Globulin Ratio Urine Color Yellow Urine Clarity Sl. Cloudy Urine pH 6.0 Ur Specific [place] 1.020 Urine Protein Negative Urine Glucose (UA) Normal Urine Ketones 5 H Urine Occult Blood Negative Urine Nitrite Negative Urine Bilirubin Negative Urine Urobilinogen Normal Ur Leukocyte Esterase 25 H Urine RBC 0 SEEN Urine WBC 0 SEEN Ur Squamous Epith Cells 50-100 SEEN Urine Bacteria 0 SEEN Urine Mucus 2+ Urine Opiates Screen NEGATIVE Urine Methadone Screen NEGATIVE Ur Barbiturates Screen NEGATIVE Ur Phencyclidine Scrn NEGATIVE Ur Amphetamines Screen POSITIVE H U Methamphetamin-MDMA POSITIVE H U Benzodiazepines Scrn NEGATIVE Urine Cocaine Screen NEGATIVE U Cannabinoids Screen POSITIVE H Ur Drug Screen Comment Ethyl Alcohol 35.0 Home Medications: Medications to take at Discharge NK 02/13/19 Primary Care Physician: Taye Pinto DO [Primary Care Provider] - Minutes spent on discharge:: 40 Patient Condition:: Stable Medical Necessity - Tobacco Use Smoking Status: Light Smoker (<10/day) Tobacco Use: Cigarettes Meaningful Use Info Meaningful Use Diagnoses (Choose all that apply): None applicable Code Visit OBSV E&M: 10443 Observ/hosp same date L3
== END 2019-03-30 12:58 | disposition left against medical advice (07) | DRG 894 ==
LOC: ED 07:35 → MS2 09:12
PROVIDERS: Emergency Provider Emergency Medicine; Family Provider Family Medicine; PCP Family Medicine
DX: F10.239 Alcohol dependence with withdrawal, unspecified (principal); F11.23 Opioid dependence with withdrawal; F32.9 Major depressive disorder, single episode, unspecified; F15.90 Other stimulant use, unspecified, uncomplicated; F12.90 Cannabis use, unspecified, uncomplicated; F17.210 Nicotine dependence, cigarettes, uncomplicated
CPT/HCPCS: 70450; 80053; 80307; 80320; 81001; 84484; 85025; 85610; 93005; 99218; 99285; A4216; G0378; G0480

== ENCOUNTER 2019-08-05 09:05 | Inpatient (IN) | payer MEDICAID, SELFPAY ==
[2019-08-05 09:05] VITALS: BMI 31.1
[2019-08-05 09:06] VITALS: BP 117/82; PULSE 105; RESP 20; TEMP 36.7; O2SAT 99; BMI 27.3
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
[2019-08-05 10:04] LABS: Internal QC Validated? YES +Cl - CLEAR BKGD; Pregnancy, Serum, hCG Quali. NEGATIVE Negative
[2019-08-05 10:12] LABS: AST(SGOT) 86 U/L (15-37); Alanine Aminotransfer ALT/SGPT 101 U/L (13-56); Albumin, Serum 3.4 g/dL (3.2-5.0); Alkaline Phosphatase 278 U/L (45-117); Anion Gap 6 (5-15); BUN 10 mg/dL (7-18); BUN/Creat Ratio 12.9 RATIO (10-20); Calcium,Total 8.5 mg/dL (8.5-10.1); Chloride 102 mmol/L (98-107); Creatinine, Serum 0.78 mg/dL (0.55-1.02); EST Glomerular Filtration Rate 86 mL/min (>60); Est Glom Filt Rate - Afr Amer 104 mL/min (>60); Estimated Creatinine Clearance 93.81 ml/min; Globulin 4.2 g/dL (2.2-4.2); Glucose 82 mg/dL (74-106); Potassium 3.3 mmol/L (3.5-5.1); Protein, Total 7.6 g/dL (6.4-8.2); Sodium Level 137 mmol/L (136-145)
[2019-08-05 10:18] LABS: Color, Urine Yellow (Yellow); Glucose, Dipstick Normal (Normal); Ketone-Dipstick 5 mg/dl (Negative); Leukocyte Esterase-Dipstick 500 /ul (Negative); Nitrite-Dipstick Negative (Negative); Occult Blood-Urine 10 /ul (Negative); Protein-Dipstick 15 mg/dl (Negative); Urine Clarity Cloudy (Clear); Urine Urobilinogen 4 mg/dl (Normal)
[2019-08-05 10:18] LABS: Absolute Neutrophil Count 2.7 X10^3/uL (2.0-7.7); Basophil# 0.03 X10^3/uL; Basophil% 0.7 % (0-1); Eosinophil# 0.11 X10^3/uL; Eosinophils% 2.7 % (0-5); Hematocrit 48.2 % (37-47); Hemoglobin 16.2 g/dL (12.0-15.0); Lymphocyte % 24.8 % (19-41); Mean Corp Hgb Conc 33.6 g/dL (32-36); Mean Corpuscular Hgb 31.3 pg (27.0-32.0); Mean Corpuscular Volume 93.1 fL (81-99); Monocyte# 0.22 X10^3/uL; Monocyte% 5.5 % (0-10); NRBC Flagged by Analyzer 0 % (0-5); Neutrophil # 2.66 X10^3/uL (2.7-7.7); Neutrophil % 66.1 % (47-70); Platelet Count 159 K/mm3 (150-450); RBC Distribution Width CV 13.1 % (11.6-14.6); RBC Distribution Width SD 44.4 fl (35.1-43.9); Red Blood Count 5.18 M/mm3 (4.2-5.4)
[2019-08-05 10:22] LABS: Urine Bilirubin Dipstick 1 mg/dL (Negative)
[2019-08-05 10:25] LABS: Alcohol, Blood (Medical)-Serum < 3.0 mg/dL
[2019-08-05 10:31] LABS: Red Blood Cells-Urine 0-5 SEEN /hpf (0-5); Squamous Epithelial Cells - UA 5-10 SEEN /hpf (5-10); White Blood Cells 25-50 SEEN /hpf (0-5)
[2019-08-05 10:32] LABS: Bacteria 1+ /hpf (None Seen); Calcium Oxalate Crystals Ur RARE /hpf (<or=2+); Mucous, Urine 2+ /hpf (<or=2+)
[2019-08-05 10:38] LABS: Amphetamine Urine VISTA POSITIVE (<1000 ng/mL); Barbiturate Urine VISTA POSITIVE (< 200 ng/mL); Benzodiazepine Urine VISTA NEGATIVE (< 200 ng/mL); Cocaine Urine VISTA NEGATIVE (< 300 ng/mL); Ecstacy Urine VISTA NEGATIVE (< 500 ng/mL); Methadone Urine VISTA NEGATIVE (< 300 ng/mL); PCP Urine VISTA NEGATIVE (< 25 ng/mL); THC Urine VISTA POSITIVE (< 50 ng/mL); Vista UDS pH Range 6
[2019-08-05] MEDS: 0.9% Normal Saline 1,000 ML 150 ML IV (10:45)
[2019-08-05 11:16] VITALS: RESP 18
--- NOTE | 2019-08-05 11:24 | NURSING ---
DR MCDANIEL FOR DR MCCAULEY
--- NOTE | 2019-08-05 11:28 | NURSING ---
MED SURG DETOX [facility]
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
[2019-08-05] MEDS: Smz/Tmp Ds Tablet 1 TABLET PO (11:49)
[2019-08-05] MEDS: Ceftriaxone 500 MG Vial 250 MG IM (11:49)
[2019-08-05] MEDS: Azithromycin 250 MG Tablet 1000 MG PO (11:49)
[2019-08-05 12:24] VITALS: BMI 26.9
[2019-08-05] MEDS: Buprenorphine HCl 2 MG TAB.SUBL SL ×2 (12:57→22:08)
[2019-08-05] MEDS: Dicyclomine 10 MG Capsule 20 MG PO (12:57)
[2019-08-05] MEDS: cloNIDine HCl 0.1 MG Tablet PO (12:57)
[2019-08-05] MEDS: Ondansetron 4 MG/2 ML Vial IV (12:57)
[2019-08-05] MEDS: hydrOXYzine PAM 25 MG Capsule 50 MG PO (12:58)
[2019-08-05 13:08] VITALS: BP 106/64; PULSE 79; RESP 16; TEMP 36.7; O2SAT 100
[2019-08-05 13:31] LABS: Chlamydia Trachomatis by PCR Negative (Negative); Neisserai gonorrhoeae by PCR Negative (Negative); Probe Check PASS; Sample Adequacy Control PASS; Specimen Processing Control PASS
[2019-08-05 14:22] LABS: HIV - WCH Non-Reactive (Nonreactive)
[2019-08-05 17:57] VITALS: BP 94/54; PULSE 77; RESP 14; TEMP 36.9; O2SAT 100
[2019-08-05] MEDS: 0.9% Normal Saline 1,000 ML 100 ML IV (18:02)
[2019-08-05 22:00] VITALS: BP 103/56; PULSE 85; RESP 18; TEMP 36.8; O2SAT 97
[2019-08-05] MEDS: Pramipexole Di-HCl 0.25 MG Tablet PO (22:08)
[2019-08-05] MEDS: Methocarbamol 750 MG Tablet PO (22:09)
[2019-08-06 02:00] VITALS: BP 126/65; PULSE 67; RESP 18; TEMP 36.7; O2SAT 95
[2019-08-06] MEDS: 0.9% Normal Saline 1,000 ML 100 ML IV ×2 (04:02→13:24)
[2019-08-06 05:00] VITALS: BP 104/62; PULSE 72; RESP 18; TEMP 36.6; O2SAT 97
[2019-08-06 05:06] LABS: Hepatitis A IgM Antibody Negative (Negative); Hepatitis B Core AB IgM Positive (Negative)
[2019-08-06] MEDS: Methocarbamol 750 MG Tablet PO (05:32)
[2019-08-06] MEDS: Buprenorphine HCl 2 MG TAB.SUBL SL ×3 (05:33→20:37)
[2019-08-06 09:33] VITALS: BP 111/55; PULSE 72; RESP 14; TEMP 36.5; O2SAT 95
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
--- NOTE | 2019-08-06 11:20 | CASEMGMT ---
Social Work Note Pt is at [facility] for detox. SW reviewed chart and pt has history of fentanyl, Heroin, Methamphetamine and alcohol use. SW met with pt and introduced self and role at [facility]. Pt is sleeping but woke up when this worker entered the room. SW asked pt emotional and mentally how she is doing and handling recent events. Pt states I am doing ok. SW asked pt about plans for treatment for drug use after she leaves [facility]. Pt states well I had an appointment with Gabriella today but will need to reschedule that. SW provided pt with [facility] number and brochure and encouraged pt to call and reschedule appointment. Pt states she plans on following up with Gabriella at discharge. SW also provided pt with additional treatment options and packet of information. SW asked pt about mental health history. Pt states that she has a history of depression. Pt states she thinks that her depression is part of the reason why she uses drugs. SW informed pt that mental health and substance abuse use does coincide with each other. SW asked pt about any history of suicidal thoughts/plans/ideations. Pt states she does have history of suicidal thoughts/plans/ideations and attempts but denied any current suicidal thoughts/plans/ideations. Pt then states you know I really don't like talking to people who haven't been through what I have been through like drug use. Pt states you are too bubbly and preppy and bobbing your pony tail and you are irritating me. Pt then asked this worker to leave her room and states she doesn't want to talk to this worker anymore. SW then left pt's room. SW to remain available if pt wishes to speak with this worker again but at this time pt doesn't want to speak to this worker anymore. Pt was provided resources for treatment options and does plan to follow up with Gabriella at discharge. Coco Mendez MOTOR BLOCK MECHANIC, CIRCUIT MANAGER
[2019-08-06 11:36] LABS: HEPATITIS B SURFACE AG Positive (Negative); Hep C Antibodies >11.0 s/co ratio (0.0-0.9)
--- NOTE | 2019-08-06 11:45 | NURSING ---
This RN heard objects hitting newby and yelling. Entered room and found patient visibly upset. Patient complained of Boppy Blonde with a ponytail and very upset with how she was treated. Was upset that this person was too friendly and smiling too much to be in her room and that this upset her. Objects observed to be laying around room. Asked patient to stop throwing items and offered medication intervention. Lights also dimmed, and room temperature turned down. Music turned on TV to promote relaxation.
[2019-08-06 12:08] VITALS: BP 109/62; PULSE 74; RESP 18; TEMP 36.6; O2SAT 100
[2019-08-06] MEDS: cloNIDine HCl 0.1 MG Tablet PO (12:10)
[2019-08-06] MEDS: Pramipexole Di-HCl 0.25 MG Tablet PO (12:10)
--- NOTE | 2019-08-06 12:15 | NURSING ---
While doing med pass, I noted a pill cup with a pill in it. The pill had the same number markings as the subutex I was about to give. This pill was removed from the room and with homa Jones RN and we wasted the pill in the pharmacological disposal in med room. Current dose of subutex was observed to dissolve in patient's mouth.
[2019-08-06 17:38] VITALS: BP 97/60; PULSE 71; RESP 18; TEMP 36.5; O2SAT 100
--- NOTE | 2019-08-06 17:55 | PCA ---
answered patient call light. Went in to see patient and she was upset and crying because they forgot butter on tray. so i went to get patinet some butter came back into her room and she was mad and throwing her sour cream packets cause she cant open them, I reasurred patient that i will assist her which then she was more calm.
[2019-08-06] MEDS: 0.9% Saline Lock 10 ML Syringe IV (18:18)
[2019-08-06 20:45] VITALS: BP 102/58; PULSE 80; RESP 16; TEMP 37; O2SAT 98
[2019-08-07] MEDS: 0.9% Normal Saline 1,000 ML 100 ML IV ×2 (00:15→09:38)
[2019-08-07] MEDS: Buprenorphine HCl 2 MG TAB.SUBL SL ×2 (05:15→17:14)
[2019-08-07 05:16] VITALS: BP 112/63; PULSE 66; RESP 16; TEMP 36.7; O2SAT 99
[2019-08-07 09:03] VITALS: BP 103/57; PULSE 72; RESP 16; TEMP 36.7; O2SAT 97
--- NOTE | 2019-08-07 10:49 | NURSING ---
Efraín Darden called in at this time stating that pt is not answering her phone and would like to leave a message. He states that he is a volunteer with the counseling center and that he will be providing pt with transportation tomorrow after discharge. He states his phone number is [phone]. He states that when she is discharged we may fax discharge information to [facility] at [phone] and that she has a follow up appointment with [facility] on Saturday at 1030.
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
[2019-08-07] MEDS: Fluconazole 100 MG Tablet 200 MG PO (13:14)
[2019-08-07] MEDS: hydrOXYzine PAM 25 MG Capsule 50 MG PO (13:16)
--- NOTE | 2019-08-07 13:35 | US_ITS ---
STUDY: ABDOMINAL ULTRASOUND - RIGHT UPPER QUADRANT REASON FOR VISIT: Female, 44 years old elevated LFTs TECHNIQUE: Ultrasound evaluation of the right upper quadrant was performed with real-time and static sharma-scale imaging. TECHNICAL QUALITY: Adequate. COMPARISON: None. FINDINGS: Liver: The liver measures 18.3 cm. There is normal echogenicity of the liver. The bile ducts are within normal limits. There is hepatic color flow. The direction of portal flow is hepatopetal. There is no demonstrated mass lesion. Gallbladder: The patient is status post cholecystectomy. Common Bile Duct (C.B.D.): The common bile duct measures 9 mm. Pancreas: Normal size of the head, body and tail of the pancreas. There is normal echogenicity of the pancreas. There is no demonstrated pancreatic mass or cyst. Right Kidney: Normal size of the right kidney. The right kidney measures 10.5 x 4.5 x 3.8 cm. Normal renal cortex. The right cortex measures 1.4 cm. There is no demonstrated renal mass or cyst. There is no right hydronephrosis. US/Liver IMPRESSION: Borderline hepatomegaly, no discrete lesion Previous cholecystectomy Electronically Signed: Jose Elias Verduzco MD at 15:53 EST , Service support ,
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
--- NOTE | 2019-08-07 13:44 | CASEMGMT ---
Social Work Note SW asked RN to ask pt if pt would like to speak to this worker again or not. RN Will do so. SW to follow in the event pt wishes to speak to this worker again. Coco Mendez ACOUSTICAL TILE [employer]ENTERS SUPERVISOR, INDEX CLERK
--- NOTE | 2019-08-07 14:22 | NURSING ---
Hannah called from Ultrasound- requesting to know if pt has been NPO for a liver US. Jennifer primary RN states pt has not eaten anything all day but has had some water and cheryl bob throughout AM. US plans to complete liver US at 1700
[2019-08-07 14:24] VITALS: BP 105/61; PULSE 72; RESP 16; TEMP 36.6; O2SAT 99
--- NOTE | 2019-08-07 15:05 | NURSING ---
pt to u/s in bed.
--- NOTE | 2019-08-07 15:07 | NURSING ---
Pt off unit at this time for liver US
--- NOTE | 2019-08-07 15:10 | CHAPLAIN ---
Type of Pastoral Visit _x__ Initial Visit ___ Follow-up Visit ___ On-call Visit ___ General Patient Visit ___ Spiritual Assessment ___ Family Conference ___ Bereavement ___ Rapid Response ___ Code Blue ___ Other (describe below) Pastoral Care Referral From _x__ Patient ___ Family ___ Nurse ___ Physician ___ Digital Photographic Printer ___ Dairy Store Manager ___ Other (describe below) Sacrament/Intervention ___ Active listening ___ Anointing ___ Taoism ___ Bereavement ___ Communion ___ Phuong exploration ___ ___ Life review ___ Prayer ___ Reconciliation ___ Sacrament of Sick ___ Supportive presence ___ Wedding ___ Other (describe below) Pastoral Comments attempt to visit; patient was on telephone and stated that I don't want to talk right now
[2019-08-07 20:37] VITALS: BP 111/51; PULSE 72; RESP 14; TEMP 36.6; O2SAT 99
[2019-08-08 04:34] VITALS: BP 105/53; PULSE 68; RESP 18; TEMP 36.8; O2SAT 96
[2019-08-08] MEDS: Buprenorphine HCl 2 MG TAB.SUBL SL (04:37)
[2019-08-08] MEDS: hydrOXYzine PAM 25 MG Capsule 50 MG PO (04:37)
--- NOTE | 2019-08-08 07:29 | DCINST_ITS ---
- Discharge Diagnoses Current Active Problems: Current Active and Chronic Problems (This Medical Record has been edited. Action required.) Desire for detoxification (Acute) STD (female) (Acute) Cystitis (Acute) You will use the following diet at home:: Regular Your food should be the consistency of: Regular Your liquids should be the consistency of: Regular/Thin Discharge Activity: Return to Normal Activity Call your doctor if you observe: Fever of 101 or Higher, Shortness of breath, Dizziness, Fainting spells, Swelling in the ankles, Chest pain, Increased palpitations (irregular heartbeat) Allergies/Adverse Reactions: Allergies hydrocodone bitartrate [From Vicodin] Allergy (Verified 08/05/19 09:05) Itching Medications to take at Discharge NK 02/13/19 Primary Care Physician: Taye Pinto DO [Primary Care Provider] - Please follow up with your Primary Care Physician in: 3-5 days Test Results: Test results from this visit will be discussed in further detail at your follow- up appointment, if applicable. Please Follow Up With: [facility] When: OLGA Please Follow Up With: Yvon Aquino MD When: 4 weeks
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
--- NOTE | 2019-08-08 09:46 | NURSING ---
This nurse called [phone] which was the number provided to this nurse to call when pt discharged. Despite pt not wanting to stay until Volunteer from [facility] notified, this nurse attempted to notify of this. When called above number, it said the mailbox was full and could not leave a message and then hung up automatically.
[2019-08-09 04:09] LABS: HCV Quant. RNA PCR 20 IU/mL (.)
[2019-08-10 13:48] LABS: Hepatitis A AB, Total Negative (Negative)
[2019-08-10 14:39] LABS: HCV log 10 1.301 (.)
--- NOTE | 2019-08-10 15:41 | CASEMGMT ---
AFSANEH CM DC PHONE CALL DC DATE: 08.08.19 DC Disposition: Home Diagnosis on Discharge: Desire for Detox LACE/STRATA: 03/01 Phone call deferred. SW gave pt resources. Therese LANDRYN RN ACM
[2019-08-10 16:24] LABS: Hepatitis Be Ag Positive (Negative)
== END 2019-08-08 08:30 | disposition home or self-care (01) | DRG 773 ==
LOC: ED 11:34 → MS3 11:47
PROVIDERS: Internal Medicine Infectious Disease; Admitting Provider Family Medicine; Emergency Provider Emergency Medicine; Family Provider Family Medicine; PCP Family Medicine; Referring Provider Family Medicine; Visit Provider Family Medicine
DX: F11.23 Opioid dependence with withdrawal (principal); F17.210 Nicotine dependence, cigarettes, uncomplicated; B19.10 Unspecified viral hepatitis B without hepatic coma; F32.9 Major depressive disorder, single episode, unspecified; F10.10 Alcohol abuse, uncomplicated; N89.8 Other specified noninflammatory disorders of vagina; N30.90 Cystitis, unspecified without hematuria; A64 Unspecified sexually transmitted disease; F19.20 Other psychoactive substance dependence, uncomplicated; B19.20 Unspecified viral hepatitis C without hepatic coma; T76.21XA Adult sexual abuse, suspected, initial encounter
CPT/HCPCS: 36415; 76705; 80048; 80074; 80076; 80307; 80320; 81001; 84703; 85025; 86703; 86708; 87350; 87491; 87522; 87591; 97802; 99285; 99406; J7030; A4216; G0480; J2405

== ENCOUNTER 2019-08-15 12:27 | Inpatient (IN) | payer MEDICAID, SELFPAY ==
[2019-08-05 12:24] VITALS: BMI 26.9
[2019-08-15] VITALS (7 sets, daily range): BP systolic 99–155; BP diastolic 59–77; PULSE 63–104; RESP 18–20; TEMP 36.3–38.9; O2SAT 91–99; BMI 27.3; BMI 28.7
--- NOTE | 2019-08-15 12:40 | EKG12_ITS ---
Test Reason : ILLNESS Blood Pressure : / mmHG Vent. Rate : 065 BPM Atrial Rate : 065 BPM P-R Int : 126 ms QRS Dur : 096 ms QT Int : 368 ms P-R-T Axes : 078 073 076 degrees QTc Int : 382 ms Normal sinus rhythm Normal ECG Confirmed by KAROLINA IRELAND, RONALD ([id number]), commercial production editor CHAVA ESTES ([id number]) on 08/18/2019 10:02:20 AM Referred By: Cari Chahal Confirmed By:RONALD TURCIOS MD
--- NOTE | 2019-08-15 12:40 | RAD_ITS ---
STUDY: X-RAY CHEST REASON FOR EXAM: Female, 44 years old. Cyanosis TECHNIQUE: AP COMPARISON: 02/13/2019 FINDINGS: EKG leads project over the chest. The lungs are clear and expanded. There is no demonstrated pleural abnormality. Normal size heart. Normal mediastinum and lissa. Normal visualized pulmonary arteries. Normal visualized aortic arch and descending thoracic aorta. Normal visualized thoracic spine. Normal visualized ribs, clavicles, and shoulders. There is no demonstrated abnormality of the visualized soft tissue structures of the upper abdomen. RAD/Chest 1 View (Portable) IMPRESSION: Stable, nonacute portable x-ray examination of the chest. Electronically Signed: Jeff Marie MD (Brooks) at 13:15 EST , Service support ,
[2019-08-15 13:16] LABS: Absolute Lymphocyte Count 0.52 X10^3/uL (0.83-4.51); Basophil# 0.03 X10^3/uL; Basophil% 0.6 % (0-1); Differential Indicated SCAN CRITERIA MET; Eosinophil# 0.03 X10^3/uL; Eosinophils% 0.6 % (0-5); Hematocrit 40.7 % (37-47); Hemoglobin 13.6 g/dL (12.0-15.0); Lymphocyte # 0.52 X10^3/ul (4.0); Lymphocyte % 11.1 % (19-41); Mean Corp Hgb Conc 33.4 g/dL (32-36); Mean Corpuscular Hgb 31.3 pg (27.0-32.0); Mean Corpuscular Volume 93.6 fL (81-99); Mean Platelet Vol. 9.6 fl (6.2-12.0); Monocyte# 0.06 X10^3/uL; Monocyte% 1.3 % (0-10); NRBC Flagged by Analyzer 0 % (0-5); Neutrophil # 4.01 X10^3/uL (2.7-7.7); POSITIVE DIFFERENTIAL YES; POSITIVE MORPHOLOGY YES; Platelet Count 137 K/mm3 (150-450); RBC Distribution Width CV 12.6 % (11.6-14.6); RBC Distribution Width SD 43.2 fl (35.1-43.9); Red Blood Count 4.35 M/mm3 (4.2-5.4); White Blood Count 4.7 K/mm3 (4.4-11.0)
[2019-08-15 13:23] LABS: Internal QC Validated? YES +Cl - CLEAR BKGD; Pregnancy, Serum, hCG Quali. NEGATIVE Negative
[2019-08-15 13:24] LABS: International Normalized Ratio 1.3; Prothrombin Time (Protime)PT. 15.8 SECONDS (11.7-14.9)
[2019-08-15 13:25] LABS: Partial Thromboplast Time 33.8 Seconds (24.1-36.2)
--- NOTE | 2019-08-15 13:27 | ED.DCSUM_ITS ---
History of Present Illness Chief Complaint: Overdose Informant: Patient, Significant Other Onset: Today Context: Sudden Onset Timing: Continuous Quality: Not feeling well after injecting fentanyl Location: [facility] Current Severity: Moderate Maximum Severity: Severe Worsened by: Intravenous fentanyl Relieved by: Nothing Associated Symptoms: Cold, nausea, trouble breathing, paresthesia Narrative: Patient is a 44-year-old woman who within the past week was discharged from a detox program. She apparently lives on [address] and when she is not on the she is at a drug house according to . They are non-domicile. She does admit to smoking and drug use. She occasionally uses alcohol. She states she has hepatitis C. She is HIV negative. States she injected left antecubital fossa. She denies headache, visual, ocular auditory symptoms. She denies neck pain. Denies back pain. She denies chest pain. She does report mild shortness of breath. She does report nausea without vomiting. She denies diarrhea. She denies black or maroon-colored stool. She denies urinary symptoms. She was unaware that her extremities are purple and mottled. Prior similar symptoms: Yes Recent Illness/Hospitalization: Yes - Past Medical History (1) Alcohol dependence Status: Acute (2) Opiate dependence Status: Acute (3) STD (female) Status: Acute (4) Nicotine dependence Status: Chronic Past Medical History - Allergies and Home Meds Allergies/Adverse Reactions: Allergies hydrocodone bitartrate [From Vicodin] Allergy (Verified 08/05/19 09:05) Itching Primary Care Physician: Taye Pinto DO [Primary Care Provider] - Prior records reviewed: Yes Surgical History: cholecystectomy, hysterectomy Lives: Spouse/ Significant Other, Homeless Smoking Status: Current every day smoker Alcohol: Rare Drugs: Heroin - Family History Maternal Family History: Reports: No pertinent history Paternal Family History: Reports: No pertinent history Review of Systems General: Reports: Chills, Malaise, Sweats, Weight loss. Denies: Fever, Subjective Eyes: Denies: Visual changes - bilaterally, Blurred Vision - bilaterally ENT: Reports: - - Decreased hearing or ringing or ears.. Denies: Bilateral ear pain, Rhinorrhea, Sore throat Cardiovascular: Denies: Chest pain, Palpitations, Heart racing Respiratory: Reports: Dyspnea, Cough. Denies: Sputum, Dyspnea on exertion, Orthopnea Gastrointestinal: Reports: Nausea. Denies: Abdominal pain, Vomiting, Diarrhea, Melena, Hematochezia Genitourinary: Denies: Dysuria, Hematuria, Frequency Musculoskeletal: Reports: Extremity Pain. Denies: Myalgias, Arthralgias, Neck pain, Back pain, Swelling Skin: Denies: Rash, Wounds Neurological: Reports: Weakness, Parasthesia. Denies: Headache, Numbness Psych: Reports: Depression Endocrine: Denies: Polyuria, Polydipsia Hematologic: Denies: Easy bruising, Easy bleeding Physical Exam Vital Signs/Narrative: Vital Signs Temp Pulse Resp BP Pulse Ox 08/15/19 12:28 97.4 F L 63 20 H 155/77 H 99 Inital Vital Signs reviewed: Yes General: Well developed, Cachectic, - - Melchor looks much older than age. She is cyanotic. She does not appear well.. Negative for: Well nourished Eyes: Perrl, EOMI. Negative for: Pale conjunctiva, Scleral icterus ENT: No rhinorrhea, TM's clear, Dry mucous membranes, - - Heel is midline. Posterior pharynx unremarkable.. Negative for: Moist mucous membranes, Nasal congestion, Sinus tenderness Neck: Supple, Nontender, No lymphadenopathy, No JVD, - - Is midline. There is no stridor. Cardiovascular: Regular rate, Regular rhythm, No murmurs, Normal S1, Normal S2 Respiratory: No distress, CTA bilaterally, Chest nontender Abdomen: Soft, Nontender, Nondistended, No masses, Hypoactive bowel sounds. Negative for: Normal bowel sounds Rectal: Deferred Back: Nontender Extremities: Nontender, No edema Skin: Cyanosis, No Trauma, - - Melchor has cyanosis distal upper and lower extremities. There is mottling. Skin is cold to touch. Capillary refill is de layed.. Negative for: Normal color, No rash, Diaphoresis, Jaundice Neurological: Alert, Oriented x3, Cranial nerves II-XII grossly intact, Normal Strength, Normal Sensation, Normal DTR - No clonus or Babinski sign.. Negative for: Normal Gait - Gait was not tested Psychological: Depressed Diagnostic/Tx/Re-eval Chest X-Ray - ED: 1 View, Read by ED Physician, Normal, Heart, Mediastinum, Bony Structures, No Acute Disease, Chronic Changes Total bili is up at 1.5. ALT and AST are greater than 900. Alk phos is also elevated. Patient states she was recently diagnosed with the hepatitis C. He states she drank heavily yesterday. This may be secondary to alcohol use versus combination of all of her problems. There is no coagulopathy. The PT/INR and PTT were normal. Lactate elevated 2.3. Also lactic acidosis uncertain. Presently there is no evidence of infection. Impressions Chest X-Ray 08/15/19 12:40 IMPRESSION: Stable, nonacute portable x-ray examination of the chest. Electronically Signed: Jeff Marie MD (Brooks) at 13:15 EST , Service support , 08/15/19 12:40 Chest 1 View (Portable) [RAD] Stat Laboratory Results 08/15/19 08/15/19 08/15/19 13:01 13:01 13:01 WBC 4.7 RBC 4.35 Hgb 13.6 Hct 40.7 MCV 93.6 MCH 31.3 MCHC 33.4 RDW Std Deviation 43.2 RDW Coeff of Katie 12.6 Plt Count 137 L MPV 9.6 Immature Gran % (Auto) 0.400 Neut % (Auto) 86.0 H Lymph % (Auto) 11.1 L [place] % (Auto) 1.3 Eos % (Auto) 0.6 Baso % (Auto) 0.6 Absolute Neuts (auto) 4.0 Absolute Lymphs (auto) 0.52 L Nucleated RBC % 0 PT 15.8 H INR 1.3 APTT 33.8 Specimen Type Sample Site VBG pH VBG pO2 VBG O2 Sat (Calc) VBG O2 Content VBG Base Excess POC Mix VBG pCO2 Pt Tmp O2 Delivery Device Blood Gas Notified Whom Blood Gas Notified Time Sodium 135 L Potassium 3.2 L Chloride 101 Carbon Dioxide 26.0 Anion Gap 8 BUN 8 Creatinine 0.65 Estim Creat Clear Calc 112.58 Est GFR (MDRD) Af Amer 128 Est GFR (MDRD) Non-Af 106 BUN/Creatinine Ratio 12.4 Glucose 84 Lactic Acid Calcium 7.8 L Total Bilirubin 1.50 H AST 919 H ALT 866 H Alkaline Phosphatase 442 H Total Protein 6.9 Albumin 3.1 L Globulin 3.8 Albumin/Globulin Ratio 0.8 L Serum , Qual Urine Color Urine Clarity Urine pH Ur Specific [place] Urine Protein Urine Glucose (UA) Urine Ketones Urine Occult Blood Urine Nitrite Urine Bilirubin Urine Urobilinogen Ur Leukocyte Esterase Urine RBC Urine WBC Ur Squamous Epith Cells Urine Bacteria Urine Mucus Urine Opiates Screen Urine Methadone Screen Ur Barbiturates Screen Ur Phencyclidine Scrn Ur Amphetamines Screen U Methamphetamin-MDMA U Benzodiazepines Scrn Urine Cocaine Screen U Cannabinoids Screen Ur Drug Screen Comment Ethyl Alcohol 08/15/19 08/15/19 08/15/19 13:01 13:01 13:01 WBC RBC Hgb Hct MCV MCH MCHC RDW Std Deviation RDW Coeff of Katie Plt Count MPV Immature Gran % (Auto) Neut % (Auto) Lymph % (Auto) [place] % (Auto) Eos % (Auto) Baso % (Auto) Absolute Neuts (auto) Absolute Lymphs (auto) Nucleated RBC % PT INR APTT Specimen Type Sample Site VBG pH VBG pO2 VBG O2 Sat (Calc) VBG O2 Content VBG Base Excess POC Mix VBG pCO2 Pt Tmp O2 Delivery Device Blood Gas Notified Whom Blood Gas Notified Time Sodium Potassium Chloride Carbon Dioxide Anion Gap BUN Creatinine Estim Creat Clear Calc Est GFR (MDRD) Af Amer Est GFR (MDRD) Non-Af BUN/Creatinine Ratio Glucose Lactic Acid 2.3 H Calcium Total Bilirubin AST ALT Alkaline Phosphatase Total Protein Albumin Globulin Albumin/Globulin Ratio Serum , Qual NEGATIVE Urine Color Urine Clarity Urine pH Ur Specific [place] Urine Protein Urine Glucose (UA) Urine Ketones Urine Occult Blood Urine Nitrite Urine Bilirubin Urine Urobilinogen Ur Leukocyte Esterase Urine RBC Urine WBC Ur Squamous Epith Cells Urine Bacteria Urine Mucus Urine Opiates Screen Urine Methadone Screen Ur Barbiturates Screen Ur Phencyclidine Scrn Ur Amphetamines Screen U Methamphetamin-MDMA U Benzodiazepines Scrn Urine Cocaine Screen U Cannabinoids Screen Ur Drug Screen Comment Ethyl Alcohol < 3.0 08/15/19 08/15/19 08/15/19 13:26 14:03 14:03 WBC RBC Hgb Hct MCV MCH MCHC RDW Std Deviation RDW Coeff of Katie Plt Count MPV Immature Gran % (Auto) Neut % (Auto) Lymph % (Auto) [place] % (Auto) Eos % (Auto) Baso % (Auto) Absolute Neuts (auto) Absolute Lymphs (auto) Nucleated RBC % PT INR APTT Specimen Type WU Sample Site OTHER VBG pH 7.38 VBG pO2 24 L VBG O2 Sat (Calc) 41 L VBG O2 Content 27 VBG Base Excess 1 POC Mix VBG pCO2 Pt Tmp 43.4 O2 Delivery Device Room Air Blood Gas Notified Whom ED Blood Gas Notified Time 1324 Sodium Potassium Chloride Carbon Dioxide Anion Gap BUN Creatinine Estim Creat Clear Calc Est GFR (MDRD) Af Amer Est GFR (MDRD) Non-Af BUN/Creatinine Ratio Glucose Lactic Acid Calcium Total Bilirubin AST ALT Alkaline Phosphatase Total Protein Albumin Globulin Albumin/Globulin Ratio Serum , Qual Urine Color Yellow Urine Clarity Clear Urine pH 6.0 Ur Specific [place] 1.020 Urine Protein 30 H Urine Glucose (UA) Normal Urine Ketones 5 H Urine Occult Blood 10 H Urine Nitrite Negative Urine Bilirubin 1 H Urine Urobilinogen 4 H Ur Leukocyte Esterase 500 H Urine RBC 0 SEEN Urine WBC 25-50 SEEN Ur Squamous Epith Cells 0-5 SEEN Urine Bacteria 0 SEEN Urine Mucus 0 SEEN Urine Opiates Screen POSITIVE H Urine Methadone Screen NEGATIVE Ur Barbiturates Screen POSITIVE H Ur Phencyclidine Scrn NEGATIVE Ur Amphetamines Screen POSITIVE H U Methamphetamin-MDMA POSITIVE H U Benzodiazepines Scrn NEGATIVE Urine Cocaine Screen NEGATIVE U Cannabinoids Screen POSITIVE H Ur Drug Screen Comment Ethyl Alcohol Tox is markedly positive. This probably is contributed to how she feels and may contribute to some of her findings. Urine is a good specimen and reveals pyuria with leukoesterase and blood. There is no nitrites. Bilirubin is elevated. Urine culture was sent. Will give 1 dose of Rocephin. Since she appears ill mottled cyanotic with elevated lactate will contact hospitalist for observation PCU - Rhythm Strip Rhythm Strip: Sinus Rhythm Rate: 71 Ectopy: None - EKG Initial EKG Interpretation: Sinus Rhythm - Sinus rhythm with a ventricular rate of 65. SD interval 126 ms. QS duration 96 ms. QT duration 368 ms. [place] is normal. EKG is normal. Prior: Unchanged - Medical Decision Making With cyanosis ill appearance metabolic infectious work-up was undertaken. ABG was ordered. Respiratory therapist is unable to get ABG. This was changed to a VBG. EKG was obtained to assess for ischemia. Chest x-ray was obtained to assess for pneumonia/aspiration etc. Patient has lactic acidosis presented mottled with cyanosis hospitalist was called for admission/observation status to PCU. ED Disposition - Plan for ED Patient: Disposition: [facility] Diagnosis: Lactic acidosis, Acrocyanosis, Pyuria, IVDU (intravenous drug user), Elevated liver enzymes Referrals: Taye Pinto DO [Primary Care Provider] -
[2019-08-15 13:28] LABS: ALB/GLOB Ratio 0.8 RATIO (0.9-2.4); AST(SGOT) 919 U/L (15-37); Alanine Aminotransfer ALT/SGPT 866 U/L (13-56); Albumin, Serum 3.1 g/dL (3.2-5.0); Alkaline Phosphatase 442 U/L (45-117); Anion Gap 8 (5-15); BUN 8 mg/dL (7-18); BUN/Creat Ratio 12.4 RATIO (10-20); Calcium,Total 7.8 mg/dL (8.5-10.1); Chloride 101 mmol/L (98-107); Creatinine, Serum 0.65 mg/dL (0.55-1.02); EST Glomerular Filtration Rate 106 mL/min (>60); Est Glom Filt Rate - Afr Amer 128 mL/min (>60); Estimated Creatinine Clearance 112.58 ml/min; Globulin 3.8 g/dL (2.2-4.2); Glucose 84 mg/dL (74-106); Potassium 3.2 mmol/L (3.5-5.1); Protein, Total 6.9 g/dL (6.4-8.2); Sodium Level 135 mmol/L (136-145)
[2019-08-15 13:31] LABS: Blood Gas Specimen Type VEN; O2 Delivery Device Room Air; SITE OTHER; Time Given 1324; VBG BASE EXCESS 1 mmol/L (-1.0-3.5); VBG Bicarbonate 26 mmol/L (22-26); VBG Oxygen Content 27 mmol/L (23-33); VBG PO2 24 mmHg (25-40); VBG SO2 41 % (50-70); VBG pCO2 43.4 mmHg (41-51); VBG pH 7.38 (7.32-7.42)
[2019-08-15 14:11] LABS: Bacteria 0 SEEN /hpf (None Seen); Mucous, Urine 0 SEEN /hpf (<or=2+); Red Blood Cells-Urine 0 SEEN /hpf (0-5)
[2019-08-15 14:14] LABS: Color, Urine Yellow (Yellow); Glucose, Dipstick Normal (Normal); Ketone-Dipstick 5 mg/dl (Negative); Leukocyte Esterase-Dipstick 500 /ul (Negative); Nitrite-Dipstick Negative (Negative); Occult Blood-Urine 10 /ul (Negative); Protein-Dipstick 30 mg/dl (Negative); Urine Clarity Clear (Clear); Urine Urobilinogen 4 mg/dl (Normal)
[2019-08-15 14:20] LABS: Urine Bilirubin Dipstick 1 mg/dL (Negative)
[2019-08-15 14:21] LABS: Alcohol, Blood (Medical)-Serum < 3.0 mg/dL
[2019-08-15 14:23] LABS: Squamous Epithelial Cells - UA 0-5 SEEN /hpf (5-10); White Blood Cells 25-50 SEEN /hpf (0-5)
[2019-08-15 14:26] LABS: Amphetamine Urine VISTA POSITIVE (<1000 ng/mL); Barbiturate Urine VISTA POSITIVE (< 200 ng/mL); Benzodiazepine Urine VISTA NEGATIVE (< 200 ng/mL); Cocaine Urine VISTA NEGATIVE (< 300 ng/mL); Ecstacy Urine VISTA POSITIVE (< 500 ng/mL); Methadone Urine VISTA NEGATIVE (< 300 ng/mL); PCP Urine VISTA NEGATIVE (< 25 ng/mL); THC Urine VISTA POSITIVE (< 50 ng/mL); Vista UDS pH Range 6
--- NOTE | 2019-08-15 14:36 | HP.PCM_ITS ---
History of Present Illness Date of Admission: 08/15/19 Chief Complaint: Abdominal pain The patient is a 44 year old F with a past medical history of polysubstance abuse including alcohol, heroin and barbiturates. She was admitted through the ED on 08/15/2019 complaint of abdominal pain and general feeling of unwellness. Patient states she took short of what she felt was heroin today, and is not really sure that it was heroin because she started feeling very unwell afterwards. She felt nauseous and lightheaded and started having right upper quadrant abdominal pain so he decided to come into the ED. She has not had such pain before. She had assisted fever and chills and nausea as well as vomiting but denied any diarrhea. Review of systems otherwise negative. Patient is currently homeless and denies any history of hepatitis. In the ED, vitals were essentially stable. Chemistry showed sodium of 135 and potassium of 3.2. Lactic acid was 2.3 and calcium was 7.8 with total bilirubin of 1.5, AST of 919 and ALT of 866 with ALP of 442. Lipase was not checked. CBC showed normal leukocytosis. Chest x-ray showed no acute cardiopulmonary process. She has been admitted to be managed for acute hepatitis. [] Past Medical History Past Medical History (Chronic Problems): Chronic Problems (This Medical Record has been edited. Action required.) Alcoholism (Chronic) Polysubstance (including opioids) dependence, daily use (Chronic) Nicotine dependence (Chronic) Alcohol abuse (Chronic) Polysubstance (including opioids) dependence, daily use (Chronic) Nicotine dependence (Chronic) Alcohol abuse (Chronic) Depression (Chronic) Alcohol abuse (Chronic) Allergies hydrocodone bitartrate [From Vicodin] Allergy (Verified 08/05/19 09:05) Itching Home Medications: Ambulatory Orders Medication Instructions Recorded NK 02/13/19 Surgical History: cholecystectomy, hysterectomy Psychiatric History: Depression, No pertinent psych hx, Prior suicide attempt 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 Denies: Night Sweats Eyes: Denies: Blurred vision HEENT: Denies: Head Aches, Sinus Congestion, Sinus Drainage Cardiovascular: Denies: Chest Pain, Orthopnea, Palpitations Respiratory: Denies: Cough, Shortness of Breath, Shortness of breath at rest, Shortness of breath upon exertion, Sputum production Gastrointestinal: Reports: Abdominal Pain, Nausea, Vomiting. Denies: Diarrhea, Dyspepsia, Hematemesis, Hematochezia Genitourinary: Denies: Dysuria Musculoskeletal: Denies: Joint Pain, Joint Tenderness Skin: Denies: Rash, Wounds Neurological: Denies: Numbness, Tingling, Focal weakness Psychiatric: Denies: Anxiety, Depression, Homicidal Ideations, Suicidal Ideations Hematologic/ Lymphatic: Denies: Easy Bruising, Easy Bleeding VTE Information - Inpt Only VTE Present on Admission: No VTE Pharm Prophylaxis ordered?: No Reason prophylaxis not ordered:: Medical Contraindication - deranged liver enzymes Patient Problems: Active and Suspected Problems (This Medical Record has been edited. Action required.) Lactic acidosis (Acute) Acrocyanosis (Acute) Pyuria (Acute) IVDU (intravenous drug user) (Acute) Elevated liver enzymes (Acute) - Physical Exam Vitals/I&O's: Vital Signs Temp Pulse Resp BP Pulse Ox 97.4 F L 63 20 H 155/77 H 99 08/15/19 12:28 08/15/19 12:28 08/15/19 12:28 08/15/19 12:28 08/15/19 12:28 Weight: 180 lb Body Mass Index (BMI) 27.3 Finger Stick Blood Glucose 223 General: Alert, Oriented x3, Cooperative, - - in moderate distress due to pain HEENT: Atraumatic, PERRLA, EOMI, Normocephalic, - - tinge of jaundice in sclera Oral: Dry Mucosa Neck: Supple, No JVD, Negative Carotid Bruits Lungs: Clear to auscultation, Normal air movement, No rhonchi, No wheeze, No rales Cardiovascular: Regular rate, Regular Rhythm, Normal S1, Normal S2, No murmurs Abdomen: Bowel Sounds Present, Soft, - - marked RUQ tenderness, with guarding. unable to check for Jordan's sign o.a of severe abdominal tenderness Extremities: No edema, Capillary Refill Less than 3 Seconds Skin: No rashes, No breakdown Musculoskeletal: No Tenderness to Palpation of Joints or Extremities Lymphatic: No Cervical, Supraclavicular, or Inguinal Adenopathy Neurological: Cranial nerves II-XII grossly intact, Neuro grossly intact, Motor Exam 5/5 strength throughout Psych/Mental Status: Agitated, Anxious, Alert and oriented to time, place, person, mood and affect Laboratory Results 08/15/19 13:01: WBC 4.7, RBC 4.35, Hgb 13.6, Hct 40.7, MCV 93.6, MCH 31.3, MCHC 33.4, RDW Std Deviation 43.2, RDW Coeff of Katie 12.6, Plt Count 137 L, MPV 9.6, Immature Gran % (Auto) 0.400, Neut % (Auto) 86.0 H, Lymph % (Auto) 11.1 L, [place] % (Auto) 1.3, Eos % (Auto) 0.6, Baso % (Auto) 0.6, Absolute Neuts (auto) 4.0, A bsolute Lymphs (auto) 0.52 L, Nucleated RBC % 0 08/15/19 13:01: PT 15.8 H, INR 1.3, APTT 33.8 08/15/19 13:01: Sodium 135 L, Potassium 3.2 L, Chloride 101, Carbon Dioxide 26.0, Anion Gap 8, BUN 8, Creatinine 0.65, Estim Creat Clear Calc 112.58, Est GFR (MDRD) Af Amer 128, Est GFR (MDRD) Non-Af 106, BUN/Creatinine Ratio 12.4, Glucose 84, Calcium 7.8 L, Total Bilirubin 1.50 H, AST 919 H, ALT 866 H, A lkaline Phosphatase 442 H, Total Protein 6.9, Albumin 3.1 L, Globulin 3.8, Albumin/Globulin Ratio 0.8 L 08/15/19 13:01: Lactic Acid 2.3 H 08/15/19 13:01: Serum , Qual NEGATIVE 08/15/19 13:01: Ethyl Alcohol < 3.0 08/15/19 13:26: Specimen Type WU, Sample Site OTHER, VBG pH 7.38, VBG pO2 24 L, VBG O2 Sat (Calc) 41 L, VBG O2 Content 27, VBG Base Excess 1, POC Mix VBG pCO2 Pt Tmp 43.4, O2 Delivery Device Room Air, Blood Gas Notified Whom ED MD, Blood Gas Notified Time 1324 08/15/19 14:03: Urine Color Yellow, Urine Clarity Clear, Urine pH 6.0, Ur Specific [place] 1.020, Urine Protein 30 H, Urine Glucose (UA) Normal, Urine Ketones 5 H, Urine Occult Blood 10 H, Urine Nitrite Negative, Urine Bilirubin 1 H, Urine Urobilinogen 4 H, Ur Leukocyte Esterase 500 H, Urine RBC 0 SEEN, Urine WBC 25-50 SEEN, Ur Squamous Epith Cells 0-5 SEEN, Urine Bacteria 0 SEEN, Urine Mucus 0 SEEN 08/15/19 14:03: Urine Opiates Screen POSITIVE H, Urine Methadone Screen NEGATIVE, Ur Barbiturates Screen POSITIVE H, Ur Phencyclidine Scrn NEGATIVE, Ur Amphetamines Screen POSITIVE H, U Methamphetamin-MDMA POSITIVE H, U Benzodiazepines Scrn NEGATIVE, Urine Cocaine Screen NEGATIVE, U Cannabinoids Screen POSITIVE H, Ur Drug Screen Comment Diagnostic Data Chest X-Ray 08/15/19 12:40 IMPRESSION: Stable, nonacute portable x-ray examination of the chest. Electronically Signed: Jeff Marie MD (Brooks) at 13:15 EST , Service support , Current Medications Ceftriaxone Sodium (Rocephin) 1 gm in 50 mls @ 100 mls/hr IV X1 ONE Stop: 08/15/19 14:59 Assessment/Plan All Active Problems (This Medical Record has been edited. Action required.) Chest pain (Acute) Alcohol dependence (Acute) Opiate dependence (Acute) Opiate withdrawal (Acute) Desire for detoxification (Acute) STD (female) (Acute) Cystitis (Acute) Lactic acidosis (Acute) Acrocyanosis (Acute) Pyuria (Acute) IVDU (intravenous drug user) (Acute) Elevated liver enzymes (Acute) Alcohol withdrawal (Acute) Chest pain, unspecified (Acute) Alcohol withdrawal seizure (Acute) Alcohol withdrawal (Acute) Chest pain, unspecified (Acute) Alcohol withdrawal seizure (Acute) Dental abscess (Resolved) Suicidal ideation (Resolved) Alcohol withdrawal (Acute) 44 y/o female admitted with a complaint of abdominal pain 1. Acute hepatitis likely due to acute hepatitis B * admit to PCU with telemetry * total bilirubin is 1.5, AST/ALT is 919/866, with ALP of 442. AST/ALT were 86/101 two weeks ago, ALP was 278 2 weeks ago. * lactic acid is 2.3 * INR is 1.3, urine tox was positive for opiates, barbiturates, amphetamines, cannabinoids. alcohol level was <3 * keep NPO; hydrate with IVF NS * hepatitis serology (08/07/19): positive HepB surface antigen, HepB e antigen, and positive IgM, indicating acute Hep B infection. Hep C antibody elevated. * stat CT abdomen with contrast: diffuse periportal edema with trace amount of ascites adjacent liver, with surgical clips consistent with prior cholecystectomy. No intrahepatic bile duct dilation; portal vein is patent, normal spleen and pancreas. * give IV cefepime * acute hepatitis B has 95% chance of spontaneous recovery, so I think it is reasonable to admit patient here and monitor. * patient counseled that if liver enzymes worsen, or she deteriorates, she will need to be emergently transferred to tertiary center for hepatology and gastroenterology evaluation * * 2. Sepsis * likely due to acute hepatitis. * serology positive for acute hepatitis B picture * on admission to floor, temperature spiked, and SIRS criteria was 3/4 (fever, tachypnea and leucocytosis) * will order blood cultures * urine culture pending * will start IV vancomycin and IV cefepime, though I do think the symptoms are due to a systemic reaction from acute hepatitis * low threshold for transfer if patient deteriorates * 3. Hypokalemia: K is 3.2. will replace and monitor 4. polysubstance abuse * urine tox as under 1 * will put on opiate withdrawal protocol. monitor CINA score * DVT prophylaxis: SCDs Code Visit Inpatient E&M: 80056 Init Hosp L3
[2019-08-15] MEDS: Ceftriaxone 1 GM/50 ML BAG IV (14:43)
--- NOTE | 2019-08-15 14:58 | CT_ITS ---
STUDY: CT ABDOMEN WITH CONTRAST REASON FOR EXAM: Female, 44 years old. Hepatitis, acute; polysubstance abuse RADIATION DOSAGE (If Supplied By Facility): CTDIvol = ( 14.57 ) mGy, DLP = ( 851.69 ) mGycm TECHNIQUE: Transaxial images were obtained post I.V. administration of IV Isovue 300 100, and without oral contrast. Sagittal and coronal images were reconstructed. Individualized dose optimization techniques were used for this CT. COMPARISON: None. FINDINGS: The visualized lung bases are unremarkable. The visualized portions of the heart are within normal limits. No hepatic masses. Periportal edema noted diffusely. Trace amount of ascites adjacent to the liver and in the upper visualized pelvis. There are surgical clips in the gallbladder fossa consistent with a prior cholecystectomy. No intrahepatic bile duct dilation. Portal vein is patent. Normal spleen. Normal pancreas. Normal bilateral adrenal glands. Normal right kidney. Normal left kidney. Normal visualized stomach. Normal small intestine. Normal colon. The appendix is visualized and appears normal. Minimal atherosclerosis of the lower abdominal aorta. Normal inferior vena cava. Normal retroperitoneum. Normal abdominal wall. There are diffuse degenerative changes of the visualized lumbar spine. Mild levoscoliosis. There is a Schmorl's node at superior L2 endplate. CT/Abdomen WITH IV Contrast IMPRESSION: 1. Periportal edema in the liver with trace ascites compatible with history provided of hepatitis. No biliary dilation. No hepatic masses. Electronically Signed: Jeff Marie MD (Brooks) at 16:32 EST , Service support ,
[2019-08-15] MEDS: 0.9% Normal Saline 1,000 ML 150 ML IV (17:38)
--- NOTE | 2019-08-15 18:50 | NURSING ---
Attempted to give patient medications x several attempts. Patient will cry and call out for when she needs to use the bathroom. When she returns to bed and RN attempts to give patient medications, she will not respond to RN.
[2019-08-15 19:28] LABS: Lactic Acid 1.1 mmol/L (0.4-2.0)
--- NOTE | 2019-08-15 20:15 | NURSING ---
Addendum entered by Trish Lebron 08/15/19 20:43: Offered oral swabs to moisten mouth, pt refused. Original Note: Pt agitated and demanding something to drink. This RN explained why she is npo, ensured pt is getting appropriate hydration. Pt states she is going to pull out her iv and leave. Then closes eyes and begins snoring. Wakes up to tell this RN to leave her alone and leave. No further needs at this time.
[2019-08-15] MEDS: Potassium Chloride 10mEq/100mL 10 MEQ/100 ML IV.SOLN. 100 MEQ IV BOLUS ×2 (20:40→21:59)
[2019-08-15] MEDS: Buprenorphine HCl 2 MG TAB.SUBL 4 MG SL (23:39)
[2019-08-15] MEDS: Potassium Chloride 10mEq/100mL 10 MEQ/100 ML IV.SOLN. 75 MEQ IV BOLUS (23:40)
[2019-08-16] MEDS: 0.9% Normal Saline 1,000 ML 150 ML IV ×2 (01:15→08:23)
[2019-08-16] MEDS: Potassium Chloride 10mEq/100mL 10 MEQ/100 ML IV.SOLN. 75 MEQ IV BOLUS (01:16)
[2019-08-16 03:00] VITALS: BP 107/54; PULSE 76; PULSE 81; RESP 18; TEMP 37; O2SAT 96
--- NOTE | 2019-08-16 06:05 | NURSING ---
Pt belligerent with supervisor laboratory, refusing lab draw. This RN explained importance of lab tests this am. Pt speaking inappropriately with expletives to supervisor laboratory. Discussed with pt that her behavior is not acceptable. Pt agreed to have supervisor laboratory attempt lab draw one time only. biomedical technician successful.
[2019-08-16 06:31] LABS: Absolute Neutrophil Count 2.4 X10^3/uL (2.0-7.7); Basophil# 0.05 X10^3/uL; Basophil% 1.3 % (0-1); Hematocrit 34.3 % (37-47); Hemoglobin 11.5 g/dL (12.0-15.0); Lymphocyte % 28.6 % (19-41); Mean Corp Hgb Conc 33.5 g/dL (32-36); Mean Corpuscular Hgb 31.3 pg (27.0-32.0); Mean Corpuscular Volume 93.5 fL (81-99); Monocyte# 0.26 X10^3/uL; Monocyte% 6.8 % (0-10); NRBC Flagged by Analyzer 0 % (0-5); Neutrophil # 2.42 X10^3/uL (2.7-7.7); POSITIVE MORPHOLOGY YES; Platelet Count 121 K/mm3 (150-450); RBC Distribution Width CV 13.2 % (11.6-14.6); RBC Distribution Width SD 45.4 fl (35.1-43.9); Red Blood Count 3.67 M/mm3 (4.2-5.4); White Blood Count 3.8 K/mm3 (4.4-11.0)
[2019-08-16 06:47] LABS: Differential Indicated SCAN CRITERIA MET
[2019-08-16 07:07] LABS: ALB/GLOB Ratio 0.8 RATIO (0.9-2.4); AST(SGOT) 1012 U/L (15-37); Alanine Aminotransfer ALT/SGPT 855 U/L (13-56); Albumin, Serum 2.3 g/dL (3.2-5.0); Alkaline Phosphatase 325 U/L (45-117); Anion Gap 5 (5-15); BUN 8 mg/dL (7-18); BUN/Creat Ratio 17.4 RATIO (10-20); Calcium,Total 7.5 mg/dL (8.5-10.1); Chloride 107 mmol/L (98-107); Creatinine, Serum 0.46 mg/dL (0.55-1.02); EST Glomerular Filtration Rate 157 mL/min (>60); Est Glom Filt Rate - Afr Amer 190 mL/min (>60); Estimated Creatinine Clearance 159.07 ml/min; Glucose 65 mg/dL (74-106); Potassium 3.8 mmol/L (3.5-5.1); Protein, Total 5.3 g/dL (6.4-8.2); Sodium Level 136 mmol/L (136-145)
[2019-08-16 07:29] VITALS: PULSE 75
[2019-08-16] MEDS: Buprenorphine HCl 2 MG TAB.SUBL 4 MG SL (08:23)
[2019-08-16 08:30] VITALS: BP 108/68; PULSE 71; RESP 14; TEMP 36.1; O2SAT 97
[2019-08-16 12:24] LABS: AST(SGOT) 1171 U/L (15-37); Alanine Aminotransfer ALT/SGPT 950 U/L (13-56); Albumin, Serum 2.2 g/dL (3.2-5.0); Alkaline Phosphatase 324 U/L (45-117); Bilirubin, Direct 1.97 mg/dL (0.00-0.30); Globulin 3.2 g/dL (2.2-4.2); Protein, Total 5.4 g/dL (6.4-8.2)
[2019-08-16 12:51] VITALS: BP 105/56; PULSE 77; RESP 14; TEMP 37.1; O2SAT 97
--- NOTE | 2019-08-16 13:35 | DS.PCM_ITS ---
Discharge Date and Diagnosis - Problem List Patient Problems: Active and Suspected Problems (This Medical Record has been edited. Action required.) Lactic acidosis (Acute) Acrocyanosis (Acute) Pyuria (Acute) IVDU (intravenous drug user) (Acute) Elevated liver enzymes (Acute) Date of Admission: 08/15/19 Date of Discharge: 08/16/19 - Primary Discharge Diagnosis Active and Suspected Problems (This Medical Record has been edited. Action required.) Lactic acidosis (Acute) Acrocyanosis (Acute) Pyuria (Acute) IVDU (intravenous drug user) (Acute) Elevated liver enzymes (Acute) acute hepatitis B infection sepsis - Secondary Discharge Diagnosis Chronic Problems (This Medical Record has been edited. Action required.) Alcoholism (Chronic) Polysubstance (including opioids) dependence, daily use (Chronic) Nicotine dependence (Chronic) Alcohol abuse (Chronic) Polysubstance (including opioids) dependence, daily use (Chronic) Nicotine dependence (Chronic) Alcohol abuse (Chronic) Depression (Chronic) Alcohol abuse (Chronic) Hospital Course and Treatment Imaging Results: Diagnostic Data Chest X-Ray 08/15/19 12:40 IMPRESSION: Stable, nonacute portable x-ray examination of the chest. Electronically Signed: Jeff Marie MD (Brooks) at 13:15 EST , Service support , Abdomen CT 08/15/19 14:58 IMPRESSION: 1. Periportal edema in the liver with trace ascites compatible with history provided of hepatitis. No biliary dilation. No hepatic masses. Electronically Signed: Jeff Marie MD (Brooks) at 16:32 EST , Service support , Operations: None Procedures: None Summary of Care Provided: The patient is a 44 year old F with a past medical history of polysubstance abuse including alcohol, heroin and barbiturates. She was admitted through the ED on 08/15/2019 complaint of abdominal pain and general feeling of unwellness. Patient states she took short of what she felt was heroin today, and is not really sure that it was heroin because she started feeling very unwell afterwards. She felt nauseous and lightheaded and started having right upper quadrant abdominal pain so he decided to come into the ED. She has not had such pain before. She had assisted fever and chills and nausea as well as vomiting but denied any diarrhea. Review of systems otherwise negative. Patient is currently homeless and denies any history of hepatitis. In the ED, vitals were essentially stable. Chemistry showed sodium of 135 and potassium of 3.2. Lactic acid was 2.3 and calcium was 7.8 with total bilirubin of 1.5, AST of 919 and ALT of 866 with ALP of 442. Lipase was not checked. CBC showed normal leukocytosis. Chest x-ray showed no acute cardiopulmonary process. She was admitted to be managed for acute hepatitis B infection. Labs show that test done August 07, 2019 showed acute hepatitis B infection with positive E antigen and positive IgM antibody. On admission to the floor, patient triggered sepsis criteria with temperature peaking at 102 Fahrenheit she also became tachypneic has some tachycardia. She was started on IV vancomycin and Zosyn and blood cultures were obtained. Source of infection was not clear but in light of her history of IV use she was started on broad-spectrum antibiotics. Patient symptoms improved by the next day and had abdominal pain had improved. However liver enzymes worsened with total bilirubin trending up to 2. and AST and ALT also trending upwards. AST peaked at 1171 and ALT peaked at 950 with ALP being 324. In light of the be no engineering test specialist and patient being at risk of fulminant liver failure if liver enzymes were sent, decision was made to transfer patient to facility with gastroenterology and hepatology service. [facility] accepted patient that she was admitted under the care of Dr. Vides. Patient seen and examined prior to discharge. She did feel better, and abdominal pain had improved. She denied any nausea or vomiting. Review of systems otherwise negative. Labs and vitals reviewed. Home medication reviewed and reconciled. o/e: Vital Signs Height 5 ft 8.11 in Weight: 189 lb 6.033 oz Weight in Pounds 189.4 lbs Pulse Ox 97 Temperature 98.8 F Pulse Rate 77 Respiratory Rate 14 Blood Pressure 105/56 Blood Pressure Position Semi-Fowlers General: Alert, Oriented x3, Cooperative, HEENT: Atraumatic, PERRLA, EOMI, Normocephalic, - - tinge of jaundice in sclera Oral: Dry Mucosa Neck: Supple, No JVD, Negative Carotid Bruits Lungs: Clear to auscultation, Normal air movement, No rhonchi, No wheeze, No rales Cardiovascular: Regular rate, Regular Rhythm, Normal S1, Normal S2, No murmurs Abdomen: Bowel Sounds Present, Soft, - -minimal RUQ tenderness, no guarding or rebound tenderness. Extremities: No edema, Capillary Refill Less than 3 Seconds Skin: No rashes, No breakdown Musculoskeletal: No Tenderness to Palpation of Joints or Extremities Lymphatic: No Cervical, Supraclavicular, or Inguinal Adenopathy Neurological: Cranial nerves II-XII grossly intact, Neuro grossly intact, Motor Exam 5/5 strength throughout Psych/Mental Status: Agitated, Anxious, Alert and oriented to time, place, person, mood and affect Plan is for transfer to [facility] for gastroenterology and hepatology evaluation. Patient Problems: Active and Suspected Problems (This Medical Record has been edited. Action required.) Lactic acidosis (Acute) Acrocyanosis (Acute) Pyuria (Acute) IVDU (intravenous drug user) (Acute) Elevated liver enzymes (Acute) - Physical Exam Vitals/I&O's: Vital Signs Temp Pulse Resp BP Pulse Ox 98.8 F 77 14 105/56 L 97 08/16/19 12:51 08/16/19 12:51 08/16/19 12:51 08/16/19 12:51 08/16/19 12:51 Oxygen Delivery Method Room Air Weight: 189 lb 6.033 oz Body Mass Index (BMI) 28.7 Finger Stick Blood Glucose 223 Intake and Output for Last 24 Hours 08/14/19 08/15/19 08/16/19 23:59 23:59 23:59 Intake Total 2040.75 / 2040.75 2324.25 / 2324.25 Balance 2040.75 / 2040.75 2324.25 / 2324.25 Laboratory Results 08/15/19 13:01: Lactic Acid Cancelled 08/15/19 13:01: Ethyl Alcohol < 3.0 08/15/19 14:03: Urine Color Yellow, Urine Clarity Clear, Urine pH 6.0, Ur Specific Buchanan 1.020, Urine Protein 30 H, Urine Glucose (UA) Normal, Urine Ketones 5 H, Urine Occult Blood 10 H, Urine Nitrite Negative, Urine Bilirubin 1 H, Urine Urobilinogen 4 H, Ur Leukocyte Esterase 500 H, Urine RBC 0 SEEN, Urine WBC 25-50 SEEN, Ur Squamous Epith Cells 0-5 SEEN, Urine Bacteria 0 SEEN, Urine Mucus 0 SEEN 08/15/19 14:03: Urine Opiates Screen POSITIVE H, Urine Methadone Screen NEGATIVE, Ur Barbiturates Screen POSITIVE H, Ur Phencyclidine Scrn NEGATIVE, Ur Amphetamines Screen POSITIVE H, U Methamphetamin-MDMA POSITIVE H, U Benzodiazepines Scrn NEGATIVE, Urine Cocaine Screen NEGATIVE, U Cannabinoids Screen POSITIVE H, Ur Drug Screen Comment 08/15/19 17:30: Lactic Acid Cancelled 08/15/19 18:54: Lactic Acid 1.1 08/16/19 05:54: WBC 3.8 L, RBC 3.67 L, Hgb 11.5 L, Hct 34.3 L, MCV 93.5, MCH 31.3, MCHC 33.5, RDW Std Deviation 45.4 H, RDW Coeff of Katie 13.2, Plt Count 121 L, MPV 10.0, Immature Gran % (Auto) 0.300, Neut % (Auto) 63.0, Lymph % (Auto) 28.6, Tyler % (Auto) 6.8, Eos % (Auto) 0.0, Baso % (Auto) 1.3 H, Absolute Neuts (auto) 2.4, Absolute Lymphs (auto) 1.10, Nucleated RBC % 0 08/16/19 05:54: Sodium 136, Potassium 3.8, Chloride 107, Carbon Dioxide 24.0, Anion Gap 5, BUN 8, Creatinine 0.46 L, Estim Creat Clear Calc 159.07, Est GFR (MDRD) Af Amer 190, Est GFR (MDRD) Non-Af 157, BUN/Creatinine Ratio 17.4, Glucose 65 L, Calcium 7.5 L, Total Bilirubin 2.50 H, AST 1012 H, ALT 855 H, Alkaline Phosphatase 325 H, Total Protein 5.3 L, Albumin 2.3 L, Globulin 3.0, Albumin/Globulin Ratio 0.8 L 08/16/19 11:20: Total Bilirubin 2.50 H, Direct Bilirubin 1.97 H, AST 1171 H, ALT 950 H, Alkaline Phosphatase 324 H, Total Protein 5.4 L, Albumin 2.2 L, Globulin 3.2 Current Medications Buprenorphine HCl (Buprenorphine Hcl) 4 mg SL Q8H CLARA; Taper Stop: 08/18/19 20:29 Last Admin: 08/16/19 08:23 Dose: 4 mg Documented by: Clonidine (Catapres) 0.1 mg PO Q2H PRN PRN PRN Reason: Hot/Cold Sweats or Anxiety Dextrose (D50w Syringe) 0 gm IV X1 PRN; Protocol PRN Reason: Hypoglycemia Dicyclomine HCl (Bentyl) 20 mg PO Q6H PRN PRN PRN Reason: Abdomnial Discomfort Glucagon () 1 mg IM .X1 PRN PRN Reason: Hypoglycemia Hydroxyzine HCl (Vistaril Vial) 50 mg IM Q6H PRN PRN PRN Reason: Breakthrough Anxiety Hydroxyzine Pamoate (Vistaril Pamoate Capsule) 50 mg PO Q6H PRN PRN PRN Reason: Mild Anxiety Sodium Chloride () 250 mls @ 15 mls/hr IV .[id number] PRN PRN Reason: Saline Flush Last Infusion: 08/16/19 05:38 Dose: 0 mls/hr Documented by: Cefepime HCl 1 gm/ Sodium (Chloride) 50 mls @ 100 mls/hr IV Q8 CLARA Last Infusion: 08/16/19 06:08 Dose: Infused Documented by: Vancomycin IV Pharmacy to Dose (1 ea/ Sodium Chloride) 500 mls @ 250 mls/hr IV X1 PRN; Protocol PRN Reason: Rx to Dose Ibuprofen (Motrin) 400 mg PO Q6H PRN PRN PRN Reason: FEVER Methocarbamol (Methocarbamol) 750 mg PO Q6H PRN PRN PRN Reason: Muscle Aches Ondansetron HCl (Zofran) 4 mg IV Q8H PRN PRN PRN Reason: NAUSEA/VOMITING Pramipexole Dihydrochloride (Mirapex) 0.25 mg PO Q12H PRN PRN PRN Reason: Restless Legs Sodium Chloride () 10 - 40 ml IV UD PRN PRN Reason: SALINE FLUSH Discharge Diet: Low fat/ Low Cholesterol Home Medications: Medications to take at Discharge NK 02/13/19 Primary Care Physician: Taye Pinto DO [Primary Care Provider] - Please follow up with your Primary Care Physician in: one week Disposition: Acute care Hospital Minutes spent on discharge:: 40 Patient Condition:: Fair Medical Necessity - Tobacco Use Smoking Status: Current every day smoker Tobacco Use: Cigarettes Meaningful Use Info Meaningful Use Diagnoses (Choose all that apply): None applicable Code Visit Inpatient E&M: 08155 Disch Hosp
== END 2019-08-16 13:42 | disposition short-term general hospital (02) | DRG 720 ==
LOC: ED 14:38 → PCU 14:56
PROVIDERS: Admitting Provider Student in an Organized Health Care Education/Training Program; Emergency Provider Emergency Medicine; Family Provider Family Medicine; PCP Family Medicine; Referring Provider Student in an Organized Health Care Education/Training Program; Visit Provider Student in an Organized Health Care Education/Training Program
DX: A41.9 Sepsis, unspecified organism (principal); B16.9 Acute hepatitis B without delta-agent and without hepatic coma; E87.6 Hypokalemia; E87.2 Acidosis; I73.89 Other specified peripheral vascular diseases; F32.9 Major depressive disorder, single episode, unspecified; Z59.0 Homelessness; F19.20 Other psychoactive substance dependence, uncomplicated; F17.210 Nicotine dependence, cigarettes, uncomplicated
CPT/HCPCS: 36415; 71045; 74160; 80053; 80076; 80307; 80320; 81001; 82803; 83605; 84703; 85025; 85610; 85730; 87040; 87086; 93005; 99285; J7030; J7040; J7050; Q9967; A4216; G0480

== ENCOUNTER 2019-08-25 09:31 | Emergency (ER) | payer MEDICAID, SELFPAY ==
[2019-08-15 15:37] VITALS: BMI 28.7
[2019-08-25] VITALS (13 sets, daily range): BP systolic 102–145; BP diastolic 60–87; PULSE 77–92; RESP 15–18; TEMP 36.5; O2SAT 93–100; BMI 26.6
--- NOTE | 2019-08-25 09:46 | EKG12_ITS ---
Test Reason : CP Blood Pressure : / mmHG Vent. Rate : 083 BPM Atrial Rate : 083 BPM P-R Int : 116 ms QRS Dur : 104 ms QT Int : 384 ms P-R-T Axes : 081 053 054 degrees QTc Int : 451 ms Normal sinus rhythm Inferior-posterior infarct , age undetermined , cannot be excluded Abnormal ECG Confirmed by BRAIN IRELAND, SANDER ([id number]), editor managing newspaper DALILA RICE ([id number]) on 08/26/2019 1:05:43 PM Referred By: TRACEY/YA Confirmed By:SANDER DE LA PAZ MD
--- NOTE | 2019-08-25 09:47 | ED.VISSUMM ---
- ER Visit Summary Date of Service: 08/25/19 Chief Complaint: Feels well. Indigestion. Nausea vomiting. History of Present Illness: The patient is a 44 F history of hepatitis B and C secondary to IV drug abuse and 2 weeks of jaundice. Recent was admitted here and and sent to [facility] and discharged from there. They listed her chest pain she states she had indigestion. States she just has not felt well since she was discharged in the hospital. She has known liver disease. States that chest pain was across her chest. Not associated with exertion. She has no cardiac history. No history of DVT or PE. No leg pain or swelling. No hemoptysis. Is not pleuritic. Physical Examination: Middle-aged female obviously jaundiced. Vital signs are stable afebrile. Pulse ox 100% on room air no signs of hypoxia. Heart rate 86. HEENT exam scleral icterus. Poor dentition multiple missing teeth. Neck nontender. No JVD. No lymphadenopathy. Lungs clear to auscultation bilaterally. Heart regular rhythm no murmur. Abdomen is soft and nontender normal bowel sounds no peritoneal signs. Chest wall nontender. Patient is moving all 4 extremities. Neurovascular intact. Calves are nontender without edema or cords. Neurologically she is awake and alert with no focal motor deficits. Skin jaundice. Test Results: See normal white count of 5. Hemoglobin 13. Electrolytes show potassium of 2.9 which is most likely the cause of her chest discomfort. BUN/creatinine normal. Troponin normal. EKG sinus rhythm rate 83 no acute signs of [place] or ischemia. Chest x-ray chronic changes no acute process read both by myself and the radiologist. His portable 1 view. Liver enzymes all elevated worse than they have been before. Her total bilirubin 17 and direct is 13. Emergency Department Course and Treatment: Clinically I do not think this is cardiac even though she had chest discomfort last time she had just discovered due to her potassium being low. She undergo cardiac work-up. I will also do hepatic enzymes due to her jaundice. Treatment Plan: I discussed with the patient she is being treated with IV potassium and oral potassium for her hypokalemia. Otherwise she is resting comfortably. She and I discussed further evaluation and work-up for her fulminant liver failure and she would like to be transferred to a tertiary or quaternary center. Given options she wanted me to try [facility]. Disposition: Spoke to the [facility] transfer line. The patient's been accepted and we are awaiting transfer for. Impression: Acute liver failure Hypokalemia Atypical chest pain Jaundice secondary to hepatitis B and C History of IV heroin abuse This note was generated with [employer] dictation software. It may contain incorrect words, spelling, and punctuation that were not noted in review of the chart prior to signing ED Disposition - Plan for ED Patient: Referrals: Taye Pinto DO [Primary Care Provider] -
[2019-08-25 09:58] LABS: Absolute Lymphocyte Count 1.68 X10^3/uL (0.83-4.51); Absolute Neutrophil Count 3.2 X10^3/uL (2.0-7.7); Basophil# 0.07 X10^3/uL; Basophil% 1.3 % (0-1); Eosinophil# 0.09 X10^3/uL; Eosinophils% 1.6 % (0-5); Hematocrit 41.6 % (37-47); Hemoglobin 13.9 g/dL (12.0-15.0); Lymphocyte # 1.68 X10^3/ul (4.0); Lymphocyte % 30.5 % (19-41); Mean Corp Hgb Conc 33.4 g/dL (32-36); Mean Corpuscular Hgb 31.5 pg (27.0-32.0); Mean Corpuscular Volume 94.3 fL (81-99); Mean Platelet Vol. 10.6 fl (6.2-12.0); Monocyte# 0.48 X10^3/uL; Monocyte% 8.7 % (0-10); NRBC Flagged by Analyzer 0 % (0-5); Neutrophil # 3.16 X10^3/uL (2.7-7.7); Neutrophil % 57.4 % (47-70); POSITIVE MORPHOLOGY YES; Platelet Count 171 K/mm3 (150-450); RBC Distribution Width CV 14.6 % (11.6-14.6); RBC Distribution Width SD 50.6 fl (35.1-43.9); Red Blood Count 4.41 M/mm3 (4.2-5.4); White Blood Count 5.5 K/mm3 (4.4-11.0)
[2019-08-25 10:03] LABS: Differential Indicated SCAN CRITERIA MET
[2019-08-25 10:20] LABS: AST(SGOT) 841 U/L (15-37); Alanine Aminotransfer ALT/SGPT 920 U/L (13-56); Albumin, Serum 2.7 g/dL (3.2-5.0); Alkaline Phosphatase 282 U/L (45-117); Anion Gap 7 (5-15); BUN 7 mg/dL (7-18); BUN/Creat Ratio 8.1 RATIO (10-20); Bilirubin, Direct 13.11 mg/dL (0.00-0.30); Calcium,Total 8.5 mg/dL (8.5-10.1); Chloride 98 mmol/L (98-107); Creatinine, Serum 0.86 mg/dL (0.55-1.02); EST Glomerular Filtration Rate 76 mL/min (>60); Est Glom Filt Rate - Afr Amer 92 mL/min (>60); Estimated Creatinine Clearance 85.09 ml/min; Globulin 4.2 g/dL (2.2-4.2); Glucose 124 mg/dL (74-106); Potassium 2.9 mmol/L (3.5-5.1); Protein, Total 6.9 g/dL (6.4-8.2); Sodium Level 135 mmol/L (136-145)
[2019-08-25 10:22] LABS: Atypical Lymphocyte RARE %
--- NOTE | 2019-08-25 10:25 | RAD_ITS ---
STUDY: X-RAY CHEST REASON FOR EXAM: Female, 44 years old. Chest pain. TECHNIQUE: Single AP portable view of the chest. COMPARISON: Comparison is made with prior study dated August 15, 2019. FINDINGS: EKG electrodes are seen. Hyperinflation. The lungs are clear. There is no demonstrated pleural abnormality. Normal size heart. Normal mediastinum and lissa. Normal visualized pulmonary arteries. Normal visualized aortic arch and descending thoracic aorta. There are mild degenerative changes of the visualized thoracic spine. Normal visualized ribs, clavicles, and shoulders. There is no demonstrated abnormality of the visualized soft tissue structures of the upper abdomen. RAD/Chest 1 View (Portable) IMPRESSION: Hyperinflation. The lungs are clear. Electronically Signed: David Laird, at 10:43 EST , Service support ,
[2019-08-25] MEDS: Potassium Chloride 10mEq/100mL 10 MEQ/100 ML IV.SOLN. 100 MEQ IV BOLUS ×4 (10:55→14:16)
--- NOTE | 2019-08-25 11:08 | NURSING ---
CALLING [facility] FOR TRANSFER
--- NOTE | 2019-08-25 11:31 | NURSING ---
WAS ON HOLD 22 MIN WITH [facility]. HUNG UP
--- NOTE | 2019-08-25 11:38 | NURSING ---
DR WEBB TALKING TO [facility] TRANSFER LINE
--- NOTE | 2019-08-25 11:39 | NURSING ---
ASK RADIOLOGY TO PUSH RADS TO [facility]
--- NOTE | 2019-08-25 11:41 | NURSING ---
ACCEPTED AT [facility] ER
[2019-08-25 11:48] LABS: International Normalized Ratio 1.4; Prothrombin Time (Protime)PT. 17.4 SECONDS (11.7-14.9)
[2019-08-25 11:49] LABS: Partial Thromboplast Time 45.1 Seconds (24.1-36.2)
--- NOTE | 2019-08-25 12:40 | NURSING ---
CALLED NUMEROUS COMPANIES FOR TRANSPORT. [facility] WILL COME FOR PATIENT AOBUT 1900
[2019-08-25] MEDS: Acetaminophen 325 MG Tablet 650 MG PO (19:24)
--- NOTE | 2019-08-25 19:51 | ED.RN ---
[facility] CONTACTED AND INFORMED OF PT DEPARTURE.
== END 2019-08-25 19:50 | disposition short-term general hospital (02) ==
PROVIDERS: Emergency Provider Emergency Medicine; Family Provider Family Medicine; PCP Family Medicine
DX: K72.00 Acute and subacute hepatic failure without coma (principal); E87.6 Hypokalemia; R07.89 Other chest pain; B19.10 Unspecified viral hepatitis B without hepatic coma; B19.20 Unspecified viral hepatitis C without hepatic coma; F11.10 Opioid abuse, uncomplicated; Z72.0 Tobacco use
CPT/HCPCS: 71045; 80048; 80076; 84484; 85025; 85610; 85730; 93005; 96365; 96366; 99284; A4216

== ENCOUNTER 2019-09-09 21:20 | Emergency (ER) | payer MEDICAID, SELFPAY ==
[2019-08-25 09:32] VITALS: BMI 26.6
[2019-09-09 21:21] VITALS: BP 149/69; PULSE 80; RESP 18; TEMP 36.4; O2SAT 97; BMI 28.5
--- NOTE | 2019-09-09 22:02 | ED.VIS.GEN ---
History of Present Illness Chief Complaint: Edema Detail of Chief Complaint: Hepatitis A, B and C Informant: Patient, Significant Other Onset: Weeks Context: Gradual Onset Timing: Continuous Quality: Liver failure secondary to hepatitis with jaundice and lymphedema Location: Hepatic/lower extremity Current Severity: Moderate Maximum Severity: Moderate Worsened by: History of alcohol use, hepatitis and drug use Relieved by: Nothing Associated Symptoms: Leg pain secondary to swelling and difficulty ambulating Narrative: Patient is a 44-year-old woman with liver failure secondary to hepatitis A, B and C due to alcoholism and IV drug use. She presents because of increased swelling of her legs, difficulty ambulating and malaise. She was recently discharged from [facility]. She denies fever, chills night sweats. She denies ocular, visual auditory symptoms. She denies cardiac respiratory symptoms. She does have history of ascites. She denies abdominal pain. She denies dysuria, frequency or hematuria. She denies bruising easily. Prior similar symptoms: Yes Recent Illness/Hospitalization: Yes - Past Medical History (1) Jaundice due to hepatitis Status: Acute (2) Liver failure Status: Acute (3) Alcohol dependence Status: Acute (4) Opiate dependence Status: Acute (5) Alcohol abuse Status: Chronic (6) Depression Status: Chronic Past Medical History - Allergies and Home Meds Allergies/Adverse Reactions: Allergies hydrocodone bitartrate [From Vicodin] Allergy (Verified 08/25/19 09:35) Itching Primary Care Physician: Taye Pinto DO [Primary Care Provider] - Prior records reviewed: Yes Surgical History: cholecystectomy, hysterectomy Lives: Spouse/ Significant Other, Homeless, - Smoking Status: Current every day smoker Alcohol: Occasional Drugs: - - History of polysubstance abuse - Family History Maternal Family History: Reports: No pertinent history Paternal Family History: Reports: No pertinent history Review of Systems General: Reports: Malaise. Denies: Chills, Fever, Sweats Eyes: Denies: Visual changes - bilaterally, Blurred Vision - bilaterally ENT: Denies: Rhinorrhea, Sore throat Cardiovascular: Denies: Chest pain, Palpitations Respiratory: Denies: Dyspnea, Cough, Dyspnea on exertion Gastrointestinal: Denies: Abdominal pain, Nausea, Vomiting, Diarrhea, Melena, Hematochezia Genitourinary: Denies: Dysuria, Hematuria, Frequency Musculoskeletal: Reports: Swelling, Extremity Pain. Denies: Back pain Skin: Denies: Rash, Wounds Neurological: Reports: Weakness. Denies: Parasthesia, Numbness Psych: Reports: Depression Hematologic: Denies: Easy bruising, Easy bleeding Physical Exam Vital Signs/Narrative: Vital Signs Temp Pulse Resp BP Pulse Ox 09/09/19 21:21 97.5 F L 80 18 149/69 H 97 Inital Vital Signs reviewed: Yes General: Well developed, - - Patient is jaundiced and appears ill Head: Normocephalic, Atraumatic Eyes: Perrl, EOMI, Pale conjunctiva, Scleral icterus ENT: Moist mucous membranes, No rhinorrhea Neck: Supple, Nontender, No lymphadenopathy, No JVD Cardiovascular: Regular rate, Regular rhythm, No murmurs, Normal S1, Normal S2 Respiratory: No distress, CTA bilaterally, Chest nontender Abdomen: Soft, Nontender, Nondistended, Normal bowel sounds, No masses Rectal: Deferred Back: Nontender, Normal Inspection Extremities: Tenderness, Edema Skin: No rash, Jaundice, No Trauma. Negative for: Cyanosis, Diaphoresis Neurological: Alert, Oriented x3, Cranial nerves II-XII grossly intact, Normal Strength, Normal Sensation. Negative for: Normal Gait Psychological: Depressed Diagnostic/Tx/Re-eval Laboratory Results 09/09/19 09/09/19 09/09/19 22:05 22:05 22:10 WBC 5.7 RBC 3.73 L Hgb 11.5 L Hct 33.0 L MCV 88.5 MCH 30.8 MCHC 34.8 RDW Std Deviation 53.3 H RDW Coeff of Katie 16.3 H Plt Count 218 MPV 9.9 Immature Gran % (Auto) 0.500 Neut % (Auto) 60.8 Lymph % (Auto) 20.1 [place]eton % (Auto) 13.7 H Eos % (Auto) 3.5 Baso % (Auto) 1.4 H Absolute Neuts (auto) 3.5 Absolute Lymphs (auto) 1.15 Nucleated RBC % 0 PT 18.8 H INR 1.6 APTT 43.3 H Sodium 135 L Potassium 2.7 L* Chloride 99 Carbon Dioxide 29.0 Anion Gap 7 BUN 10 Creatinine 0.58 Estim Creat Clear Calc 126.16 Est GFR (MDRD) Af Amer 145 Est GFR (MDRD) Non-Af 120 BUN/Creatinine Ratio 17.2 Glucose 102 Lactic Acid Calcium 7.5 L Total Bilirubin 22.60 H* AST 228 H ALT 211 H Alkaline Phosphatase 179 H Total Protein 6.4 Albumin 2.4 L Globulin 4.0 Albumin/Globulin Ratio 0.6 L 09/09/19 22:10 WBC RBC Hgb Hct MCV MCH MCHC RDW Std Deviation RDW Coeff of Katie Plt Count MPV Immature Gran % (Auto) Neut % (Auto) Lymph % (Auto) [place]eton % (Auto) Eos % (Auto) Baso % (Auto) Absolute Neuts (auto) Absolute Lymphs (auto) Nucleated RBC % PT INR APTT Sodium Potassium Chloride Carbon Dioxide Anion Gap BUN Creatinine Estim Creat Clear Calc Est GFR (MDRD) Af Amer Est GFR (MDRD) Non-Af BUN/Creatinine Ratio Glucose Lactic Acid 1.5 Calcium Total Bilirubin AST ALT Alkaline Phosphatase Total Protein Albumin Globulin Albumin/Globulin Ratio Potassium was 2.7. She was given 40 mEq p.o. Bilirubin is 22.6. AST ALT and alk phos are also elevated. - Medical Decision Making Baseline blood work was obtained to assess liver function, liver enzymes and electrolytes. Also to assess albumin and total protein which may be contributing to her bilateral lymphedema. Patient's meld score is 23. Her 3-month mortality is 52.3%. Meld score using sodium adjust her 3-month mortality 19.6%. ED Disposition - Plan for ED Patient: Disposition: Home or Assisted Living Diagnosis: Jaundice, Liver failure, Hypokalemia, Hepatitis A, History of hepatitis B, History of hepatitis C, History of polysubstance abuse Instructions: Lymphedema, Hypokalemia Prescriptions: Potassium Cloride Effervescent [Potassium Chl 25 Meq Eff (For Liquid)] 25 meq PO DAILY #30 tablet.eff Prescription Printed Referrals: Taye Pinto DO [Primary Care Provider] - 3-5 Days
[2019-09-09 22:11] LABS: Absolute Lymphocyte Count 1.15 X10^3/uL (0.83-4.51); Absolute Neutrophil Count 3.5 X10^3/uL (2.0-7.7); Basophil# 0.08 X10^3/uL; Basophil% 1.4 % (0-1); Eosinophils% 3.5 % (0-5); Hemoglobin 11.5 g/dL (12.0-15.0); Lymphocyte # 1.15 X10^3/ul (4.0); Lymphocyte % 20.1 % (19-41); Mean Corp Hgb Conc 34.8 g/dL (32-36); Mean Corpuscular Hgb 30.8 pg (27.0-32.0); Mean Corpuscular Volume 88.5 fL (81-99); Mean Platelet Vol. 9.9 fl (6.2-12.0); Monocyte# 0.78 X10^3/uL; Monocyte% 13.7 % (0-10); NRBC Flagged by Analyzer 0 % (0-5); Neutrophil # 3.47 X10^3/uL (2.7-7.7); Neutrophil % 60.8 % (47-70); Platelet Count 218 K/mm3 (150-450); RBC Distribution Width CV 16.3 % (11.6-14.6); RBC Distribution Width SD 53.3 fl (35.1-43.9); Red Blood Count 3.73 M/mm3 (4.2-5.4); White Blood Count 5.7 K/mm3 (4.4-11.0)
[2019-09-09 22:28] LABS: International Normalized Ratio 1.6; Prothrombin Time (Protime)PT. 18.8 SECONDS (11.7-14.9)
[2019-09-09 22:29] LABS: Partial Thromboplast Time 43.3 Seconds (24.1-36.2)
[2019-09-09 22:37] VITALS: BP 120/74; PULSE 90; RESP 16; O2SAT 93
[2019-09-09 22:42] LABS: Lactic Acid 1.5 mmol/L (0.4-1.9)
[2019-09-09 22:47] LABS: ALB/GLOB Ratio 0.6 RATIO (0.9-2.4); AST(SGOT) 228 U/L (15-37); Alanine Aminotransfer ALT/SGPT 211 U/L (13-56); Albumin, Serum 2.4 g/dL (3.2-5.0); Alkaline Phosphatase 179 U/L (45-117); Anion Gap 7 (5-15); BUN 10 mg/dL (7-18); BUN/Creat Ratio 17.2 RATIO (10-20); Calcium,Total 7.5 mg/dL (8.5-10.1); Chloride 99 mmol/L (98-107); Creatinine, Serum 0.58 mg/dL (0.55-1.02); EST Glomerular Filtration Rate 120 mL/min (>60); Est Glom Filt Rate - Afr Amer 145 mL/min (>60); Estimated Creatinine Clearance 126.16 ml/min; Glucose 102 mg/dL (74-106); Potassium 2.7 mmol/L (3.5-5.1); Protein, Total 6.4 g/dL (6.4-8.2); Sodium Level 135 mmol/L (136-145)
[2019-09-09 23:45] VITALS: BP 119/77; PULSE 70; O2SAT 93
--- NOTE | 2019-09-10 00:09 | ED.RN ---
pt in room yelling at nurse to get out of room when attempting to help pt get dressed. pt yelling at volunteer, Donny who brought her in. states she can get dressed per self and does not want any help from nurse. pt refusing all medication. fire control officer at room to escort pt out of depart.
== END 2019-09-10 00:20 | disposition home or self-care (01) ==
PROVIDERS: Emergency Provider Emergency Medicine; Family Provider Family Medicine; PCP Family Medicine
DX: K70.40 Alcoholic hepatic failure without coma (principal); F10.20 Alcohol dependence, uncomplicated; Y90.9 Presence of alcohol in blood, level not specified; B15.9 Hepatitis A without hepatic coma; B19.10 Unspecified viral hepatitis B without hepatic coma; B19.20 Unspecified viral hepatitis C without hepatic coma; E87.6 Hypokalemia; I89.0 Lymphedema, not elsewhere classified; F32.9 Major depressive disorder, single episode, unspecified; F17.200 Nicotine dependence, unspecified, uncomplicated; F11.20 Opioid dependence, uncomplicated; Z59.0 Homelessness
CPT/HCPCS: 36415; 80053; 83605; 85025; 85610; 85730; 99285; A4216

== ENCOUNTER 2019-10-26 09:43 | Inpatient (IN) | payer MEDICAID, SELFPAY ==
[2019-10-26] VITALS (7 sets, daily range): BP systolic 127–131; BP diastolic 56–90; PULSE 74–93; RESP 16–18; TEMP 36.9–38.1; O2SAT 96–100; BMI 27.3; BMI 25.7
--- NOTE | 2019-10-26 10:06 | ED.VISSUMM ---
- ER Visit Summary Date of Service: 10/26/19 Chief Complaint: Right facial swelling and pain History of Present Illness: The patient is a 44 F to liver failure and hepatitis. Patient states that she had a pimple on the right corner of her mouth and she popped that on Saturday. Started having right facial pain, redness and swelling on Saturday is progressively gotten worse. Mother states she had a fever as high as 101. She denies no trauma. She is on no blood pressure medications. Physical Examination: White female no acute distress. Vital signs are stable afebrile. Does not EENT exam right facial swelling around her right eye cheek and right face. Is a prior area where she expressed pus from an abscess in the corner of her mouth. She saw she is swelling of her right cheek. Currently that she has no trouble breathing or swallowing. Neck is nontender without lymphadenopathy. Lungs clear to auscultation. Heart regular rhythm no murmur rate about 90. Abdomen soft. Nondistended. Normal bowel sounds. No peritoneal signs. She reportedly has liver failure but currently there is no significant amount of abdominal ascites. Remedies moves all 4. Trace edema in her lower extremities which is her baseline. Neurologically she is awake alert with no focal motor deficits. Back nontender. Test Results: CBC shows no acute abnormality. White count 7. Hemoglobin 12. No bands. Electrolytes unremarkable normal creatinine and gap. Emergency Department Course and Treatment: Patient has right facial swelling secondary to cellulitis. She is immunocompromise due to liver failure. She was started on IV Unasyn. Due to the amount of swelling and timeline of progression I do think she will need to be admitted. Repeat exam patient is doing well at 10:56 AM. She is currently receiving her IV antibiotics. I have the hospitalist on page. Treatment Plan: Speak to the hospitalist about admission. Disposition: Admission Impression: Acute right facial swelling secondary to acute cellulitis History hepatitis with liver failure This note was generated with [employer] dictation software. It may contain incorrect words, spelling, and punctuation that were not noted in review of the chart prior to signing ED Disposition - Plan for ED Patient: Referrals: Taye Pinto DO [Primary Care Provider] -
[2019-10-26 10:35] LABS: Absolute Lymphocyte Count 1.11 X10^3/uL (0.83-4.51); Absolute Neutrophil Count 5.9 X10^3/uL (2.0-7.7); Basophil# 0.05 X10^3/uL; Basophil% 0.6 % (0-1); Eosinophil# 0.14 X10^3/uL; Eosinophils% 1.8 % (0-5); Hematocrit 36.9 % (37-47); Hemoglobin 12.8 g/dL (12.0-15.0); Lymphocyte # 1.11 X10^3/ul (4.0); Lymphocyte % 14.2 % (19-41); Mean Corp Hgb Conc 34.7 g/dL (32-36); Mean Corpuscular Hgb 33.4 pg (27.0-32.0); Mean Corpuscular Volume 96.3 fL (81-99); Mean Platelet Vol. 9.8 fl (6.2-12.0); Monocyte# 0.62 X10^3/uL; Monocyte% 7.9 % (0-10); NRBC Flagged by Analyzer 0 % (0-5); Neutrophil # 5.89 X10^3/uL (2.7-7.7); Neutrophil % 75.2 % (47-70); Platelet Count 182 K/mm3 (150-450); RBC Distribution Width SD 49.6 fl (35.1-43.9); Red Blood Count 3.83 M/mm3 (4.2-5.4); White Blood Count 7.8 K/mm3 (4.4-11.0)
[2019-10-26 10:54] LABS: Anion Gap 3 (5-15); BUN 6 mg/dL (7-18); BUN/Creat Ratio 8.8 RATIO (10-20); Calcium,Total 8.7 mg/dL (8.5-10.1); Chloride 107 mmol/L (98-107); Creatinine, Serum 0.68 mg/dL (0.55-1.02); EST Glomerular Filtration Rate 100 mL/min (>60); Est Glom Filt Rate - Afr Amer 121 mL/min (>60); Estimated Creatinine Clearance 107.61 ml/min; Glucose 117 mg/dL (74-106); Sodium Level 136 mmol/L (136-145)
--- NOTE | 2019-10-26 11:53 | HP.PCM_ITS ---
Problem List (1) Acute right facial cellulitis Status: Acute (2) Opiate dependence Status: Chronic (3) Opiate withdrawal Status: Acute (4) IVDU (intravenous drug user) Status: Chronic (5) Elevated liver enzymes Status: Chronic (6) Liver failure Status: Chronic (7) Polysubstance (including opioids) dependence, daily use Status: Chronic (8) Depression Status: Chronic (9) Alcohol abuse Status: Chronic History of Present Illness Date of Admission: 10/26/19 Chief Complaint: Right facial pain and swelling. The patient is a 44 year old F patient with past medical history as mentioned above presented to the emergency room because of swelling and pain on the right side of her face. Her symptoms started 2 days ago with small pimple at the right corner of the mouth, started having dull aching pain on the right side of her face, mild pain, 3-4 out of 10 in severity, not radiating, associated with rapidly progressive increasing of the right side of the face and without aggravating relieving factors. Yesterday, swelling Significantly worse and she had a fever of 101 Fahrenheit. She denied tooth ache or discharge. She denied ear pain or discharge. Patient history of opiate abuse and she underwent medical stabilization in the past but she relapsed. She was admitted to the hospital on August 15, 2019 for acute hepatic failure due to infectious hepatitis and she was transferred to [facility]. Patient mentioned that she quit drinking alcohol 4 months ago but she is still using IV fentanyl. She showed interest in getting detoxification and medical stabilization for acute opiate withdrawal. She mentioned that she used IV fentanyl yesterday and that was her last use. In the emergency department, her vital signs were stable. Her routine blood work was unremarkable. She is being admitted for acute right facial cellulitis and acute opioid withdrawal for medical stabilization. Past Medical History Past Medical History (Chronic Problems): Chronic Problems Opiate dependence (Chronic) IVDU (intravenous drug user) (Chronic) Elevated liver enzymes (Chronic) Liver failure (Chronic) Polysubstance (including opioids) dependence, daily use (Chronic) Polysubstance (including opioids) dependence, daily use (Chronic) Nicotine dependence (Chronic) Depression (Chronic) Alcohol abuse (Chronic) Allergies hydrocodone bitartrate [From Vicodin] Allergy (Verified 10/26/19 09:44) Itching Surgical History: cholecystectomy, hysterectomy Psychiatric History: Depression, No pertinent psych hx, Prior suicide attempt 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 Denies: Anorexia, Chills, Weakness Eyes: Denies: Blurred vision, Cataracts, Double vision, Drainage, Redness HEENT: Denies: Difficulty Hearing, Dysphasia, Ear Pain, Eye Pain, Nasal Congestion, Sore Throat Cardiovascular: Denies: Chest Pain, Claudication, Chest Pressure, Chest Tightness, Heaviness, Light Headedness, Palpitations, Syncope Respiratory: Denies: Cough, Pleuritic Pain, Shortness of Breath, Sputum production, Wheezing Gastrointestinal: Denies: Abdominal Pain, Constipation, Diarrhea, Nausea, Vomiting Genitourinary: Denies: Dysuria, Frequency, Hematuria Musculoskeletal: Denies: Arm Pain, Back Pain, Foot Pain Skin: Denies: Dryness, Rash Neurological: Denies: Balance problems, Blurred vision, Double vision, Change in Speech, Slurred speech, Confusion, Headaches, Incoordination, Numbness Psychiatric: Reports: Depression. Denies: Anxiety Endocrine: Denies: Change in Body Habitus, Polydipsia, Polyuria VTE Information - Inpt Only VTE Present on Admission: No VTE Mechan Device Prophylaxis: None VTE Pharm Prophylaxis ordered?: No Patient Problems: Active and Suspected Problems (This Medical Record has been edited. Action required.) Acute right facial cellulitis (Acute) - Physical Exam Vitals/I&O's: Vital Signs Temp Pulse Resp BP Pulse Ox 98.7 F 78 18 130/82 H 96 10/26/19 11:48 10/26/19 11:48 10/26/19 11:48 10/26/19 11:48 10/26/19 11:48 Oxygen Delivery Method Room Air Weight: 169 lb 1.513 oz Body Mass Index (BMI) 25.7 Finger Stick Blood Glucose 223 Intake and Output for Last 24 Hours 10/24/19 10/25/19 10/26/19 23:59 23:59 23:59 Intake Total 112 / 112 Balance 112 / 112 General: Alert, Oriented x3, Cooperative, No apparent distress HEENT: Atraumatic, PERRLA, EOMI, Normocephalic, - - Right face: Diffuse swelling involving the whole right face from the right thigh down to the angle of the mandible and right side of the mouth, small pimple on the right corner of the mouth, mild erythema around it. Oral: Moist Mucosa, No Gingival or Mucosal Lesions/ Ulcerations Neck: Supple, No JVD, Negative Carotid Bruits, Trachea Midline, Thyroid Normal Size and Texture Lungs: Clear to auscultation, Normal air movement, No rhonchi, No wheeze, No rales, Diminished Cardiovascular: Regular rate, Regular Rhythm, Normal S1, Normal S2, No murmurs, PMI Normal Abdomen: Bowel Sounds Present, Soft, Non Tender, Non-Distended, No Hepato- splenomegaly Extremities: No clubbing, No cyanosis, No edema Skin: No rashes, No breakdown Lymphatic: No Cervical, Supraclavicular, or Inguinal Adenopathy Neurological: Cranial nerves II-XII grossly intact, Motor Exam 5/5 strength throughout Psych/Mental Status: Normal Affect, Appropriate, Alert and oriented to time, place, person, mood and affect Laboratory Results 10/26/19 10:20: WBC 7.8, RBC 3.83 L, Hgb 12.8, Hct 36.9 L, MCV 96.3, MCH 33.4 H, MCHC 34.7, RDW Std Deviation 49.6 H, RDW Coeff of Katie 14.0, Plt Count 182, MPV 9.8, Immature Gran % (Auto) 0.300, Neut % (Auto) 75.2 H, Lymph % (Auto) 14.2 L, Stark % (Auto) 7.9, Eos % (Auto) 1.8, Baso % (Auto) 0.6, Absolute Neuts (auto) 5.9, Absolute Lymphs (auto) 1.11, Nucleated RBC % 0 10/26/19 10:20: Sodium 136, Potassium 4.0, Chloride 107, Carbon Dioxide 26.0, Anion Gap 3 L, BUN 6 L, Creatinine 0.68, Estim Creat Clear Calc 107.61, Est GFR (MDRD) Af Amer 121, Est GFR (MDRD) Non-Af 100, BUN/Creatinine Ratio 8.8 L, Glucose 117 H, Calcium 8.7 Current Medications Sodium Chloride () 250 mls @ 15 mls/hr IV .[id number] PRN PRN Reason: Saline Flush Sodium Chloride () 250 mls @ 15 mls/hr IV .[id number] PRN PRN Reason: Additional IVPB Infusion Sodium Chloride () 10 - 40 ml IV UD PRN PRN Reason: SALINE FLUSH Assessment/Plan All Active Problems (This Medical Record has been edited. Action required.) Acute right facial cellulitis (Acute) Opiate withdrawal (Acute) This is a 44 years old female patient presented to the emergency room because of right facial pain and swelling, being admitted for acute right facial cellulitis for treatment and she showed interest in getting detoxification and medical stabilization for acute opioid withdrawal. #1 acute right facial cellulitis: Without evidence of sepsis or severe sepsis. Her vital signs are stable, afebrile. She has significant and massive swelling on the right side of her face, right eye almost closed because of swelling. Plan: Admit to Medr floor, start IV Unasyn, Motrin PRN for pain, IV antiemetics PRN, cold compresses if needed. #2 acute opiate withdrawal: Patient has been using IV fentanyl, last used yesterday. She was admitted in the past for medical stabilization but she relapsed. She mentioned that when she had the liver failure, she was informed that she has 3 months to live and she mentioned that since then, she has been not caring. Plan: Blood alcohol level, urine drug screen, serum test, check LFT, serum lipase, initiate protocol with tapering course of Subutex, PRN Catapres, Bentyl, Vistaril, methocarbamol, Zofran, Mirapex and trazodone. #3 recent history of acute liver failure: Due to hepatitis B and C as well as alcohol abuse. Patient stated that she has been sober and did not drink for the last 4 months. She was transferred recently to [facility] for treatment for full metabolic failure, she was treated conservatively. Plan: Check LFT, serum lipase, avoid Tylenol, antiemetics if needed. #4 hepatitis B/hepatitis C: Due to IV drug use. Never been treated for it. Recommend follow-up with infectious disease as outpatient after treatment of opiate abuse. #5 polysubstance abuse: Plan as above, urine drug screen, blood alcohol level. #6 alcohol abuse: Patient said that she is sober for the last 4 months, will check blood alcohol level. #7 depression: She is not on medications. Will start trazodone as above. #8 DVT prophylaxis: Low risk patient, no prophylaxis indicated. This note was generated with OSIX dictation software. It may contain incorrect words, spelling, and punctuation that were not noted in checking the note before signing. Code Visit Inpatient E&M: 93702 Init Hosp L2
--- NOTE | 2019-10-26 11:57 | NURSING ---
Pt reports using fentanyl and meth last night around 2200.
[2019-10-26 15:30] LABS: International Normalized Ratio 1.1
[2019-10-26 15:39] LABS: Internal QC Validated? YES +Cl - CLEAR BKGD; Pregnancy, Serum, hCG Quali. NEGATIVE Negative
[2019-10-26 15:40] LABS: AST(SGOT) 25 U/L (15-37); Alanine Aminotransfer ALT/SGPT 24 U/L (13-56); Albumin, Serum 2.9 g/dL (3.2-5.0); Alkaline Phosphatase 105 U/L (45-117); Amylase 25 U/L (25-115); Globulin 4.3 g/dL (2.2-4.2); Protein, Total 7.2 g/dL (6.4-8.2)
[2019-10-26 15:45] LABS: Alcohol, Blood (Medical)-Serum < 3.0 mg/dL
[2019-10-26] MEDS: Buprenorphine HCl 2 MG TAB.SUBL SL ×2 (16:09→22:40)
[2019-10-26] MEDS: 0.9% Saline Lock 10 ML Syringe IV ×2 (16:13→16:26)
[2019-10-26 17:03] LABS: Amphetamine Urine VISTA POSITIVE (<1000 ng/mL); Barbiturate Urine VISTA NEGATIVE (< 200 ng/mL); Benzodiazepine Urine VISTA NEGATIVE (< 200 ng/mL); Cocaine Urine VISTA NEGATIVE (< 300 ng/mL); Ecstacy Urine VISTA NEGATIVE (< 500 ng/mL); Methadone Urine VISTA NEGATIVE (< 300 ng/mL); PCP Urine VISTA NEGATIVE (< 25 ng/mL); THC Urine VISTA POSITIVE (< 50 ng/mL); Vista UDS pH Range 7
[2019-10-26 18:26] LABS: Bacteria 0 SEEN /hpf (None Seen); Mucous, Urine 0 SEEN /hpf (<or=2+)
[2019-10-26 18:28] LABS: Color, Urine Yellow (Yellow); Glucose, Dipstick Normal (Normal); Ketone-Dipstick Negative (Negative); Leukocyte Esterase-Dipstick 500 /ul (Negative); Nitrite-Dipstick Negative (Negative); Occult Blood-Urine Negative /ul (Negative); Protein-Dipstick Negative (Negative); Urine Bilirubin Dipstick Negative (Negative); Urine Clarity Sl. Cloudy (Clear); Urine Urobilinogen Normal (Normal)
[2019-10-26 18:42] LABS: Red Blood Cells-Urine 0-5 SEEN /hpf (0-5); Squamous Epithelial Cells - UA 0-5 SEEN /hpf (5-10); White Blood Cells 5-10 SEEN /hpf (0-5)
[2019-10-26] MEDS: Dicyclomine 10 MG Capsule 20 MG PO (21:06)
[2019-10-26] MEDS: Ibuprofen 400 MG Tablet PO (21:06)
[2019-10-26] MEDS: cloNIDine HCl 0.1 MG Tablet PO (21:07)
[2019-10-27 03:14] VITALS: BP 99/58; PULSE 80; RESP 16; TEMP 36.6; O2SAT 99
[2019-10-27] MEDS: Buprenorphine HCl 2 MG TAB.SUBL SL ×3 (06:09→22:19)
[2019-10-27 07:57] VITALS: O2SAT 95
--- NOTE | 2019-10-27 09:19 | PN_ITS ---
Patient Problems: Active and Suspected Problems (This Medical Record has been edited. Action required.) Acute right facial cellulitis (Acute) Subjective: Chief complaint: Follow-up after admission for acute right facial cellulitis and acute opioid withdrawal. Patient seen and examined. No acute events overnight. She complained of dull aching pain on the right side of her face, swelling on the right side of the face is slightly worsened than yesterday. She is having spikes of low-grade fever. Other vital signs are stable. - Physical Exam Vitals/I&O's: Vital Signs Temp Pulse Resp BP Pulse Ox 98 F 80 16 99/58 L 95 10/27/19 03:14 10/27/19 03:14 10/27/19 03:14 10/27/19 03:14 10/27/19 07:57 Oxygen Delivery Method Room Air Weight: 169 lb 1.513 oz Body Mass Index (BMI) 25.7 Finger Stick Blood Glucose 223 Intake and Output for Last 24 Hours 10/25/19 10/26/19 10/27/19 23:59 23:59 23:59 Intake Total 936.25 / 936.25 809.5 / 809.5 Balance 936.25 / 936.25 809.5 / 809.5 General: Alert, Oriented x3, Cooperative, No apparent distress HEENT: Atraumatic, PERRLA, EOMI, Normocephalic, - - Face: Right side is swollen, firm, minimal tenderness. Oral: Moist Mucosa, No Gingival or Mucosal Lesions/ Ulcerations Neck: Supple, No JVD, Negative Carotid Bruits, Trachea Midline, Thyroid Normal Size and Texture Lungs: Clear to auscultation, Normal air movement, No rhonchi, No wheeze, No rales Cardiovascular: Regular rate, Regular Rhythm, Normal S1, Normal S2, PMI Normal Abdomen: Bowel Sounds Present, Soft, Non Tender, Non-Distended, No Hepato- splenomegaly Extremities: No clubbing, No cyanosis, No edema Skin: No rashes, No breakdown Lymphatic: No Cervical, Supraclavicular, or Inguinal Adenopathy Neurological: Cranial nerves II-XII grossly intact, Motor Exam 5/5 strength throughout Psych/Mental Status: Normal Affect, Appropriate, Alert and oriented to time, place, person, mood and affect Laboratory Results 10/26/19 10:20: WBC 7.8, RBC 3.83 L, Hgb 12.8, Hct 36.9 L, MCV 96.3, MCH 33.4 H, MCHC 34.7, RDW Std Deviation 49.6 H, RDW Coeff of Katie 14.0, Plt Count 182, MPV 9.8, Immature Gran % (Auto) 0.300, Neut % (Auto) 75.2 H, Lymph % (Auto) 14.2 L, Placer % (Auto) 7.9, Eos % (Auto) 1.8, Baso % (Auto) 0.6, Absolute Neuts (auto) 5.9, Absolute Lymphs (auto) 1.11, Nucleated RBC % 0 10/26/19 10:20: Sodium 136, Potassium 4.0, Chloride 107, Carbon Dioxide 26.0, Anion Gap 3 L, BUN 6 L, Creatinine 0.68, Estim Creat Clear Calc 107.61, Est GFR (MDRD) Af Amer 121, Est GFR (MDRD) Non-Af 100, BUN/Creatinine Ratio 8.8 L, Glucose 117 H, Calcium 8.7 10/26/19 15:10: Total Bilirubin 2.10 H, Direct Bilirubin 1.30 H, AST 25, ALT 24, Alkaline Phosphatase 105, Total Protein 7.2, Albumin 2.9 L, Globulin 4.3 H, Amylase 25 10/26/19 15:10: Ethyl Alcohol < 3.0 10/26/19 15:10: Serum , Qual NEGATIVE 10/26/19 15:10: PT 14.0, INR 1.1 10/26/19 16:20: Urine Opiates Screen NEGATIVE, Urine Methadone Screen NEGATIVE, Ur Barbiturates Screen NEGATIVE, Ur Phencyclidine Scrn NEGATIVE, Ur Amphetamines Screen POSITIVE H, U Methamphetamin-MDMA NEGATIVE, U Benzodiazepines Scrn NEGATIVE, Urine Cocaine Screen NEGATIVE, U Cannabinoids Screen POSITIVE H, Ur Drug Screen Comment 10/26/19 16:20: Urine Color Yellow, Urine Clarity Sl. Cloudy, Urine pH 8.0, Ur Specific Enterprise 1.010, Urine Protein Negative, Urine Glucose (UA) Normal, Urine Ketones Negative, Urine Occult Blood Negative, Urine Nitrite Negative, Urine Bilirubin Negative, Urine Urobilinogen Normal, Ur Leukocyte Esterase 500 H, Urine RBC 0-5 SEEN, Urine WBC 5-10 SEEN, Ur Squamous Epith Cells 0-5 SEEN, Urine Bacteria 0 SEEN, Urine Mucus 0 SEEN Current Medications Buprenorphine HCl (Buprenorphine Hcl) 4 mg SL Q8H CLRAA; Taper Stop: 10/29/19 18:59 Last Admin: 10/27/19 06:09 Dose: 4 mg Documented by: Clonidine (Catapres) 0.1 mg PO Q2H PRN PRN PRN Reason: Hot/Cold Sweats or Anxiety Last Admin: 10/26/19 21:07 Dose: 0.1 mg Documented by: Dicyclomine HCl (Bentyl) 20 mg PO Q6H PRN PRN PRN Reason: Abdomnial Discomfort Last Admin: 10/26/19 21:06 Dose: 20 mg Documented by: Hydroxyzine Pamoate (Vistaril Pamoate Capsule) 50 mg PO Q6H PRN PRN PRN Reason: Mild Anxiety Ampicillin Sodium/Sulbactam (Sodium 3 gm/ Sodium Chloride) 112 mls @ 150 mls/hr IV Q8 CLARA Last Infusion: 10/27/19 07:04 Dose: Infused Documented by: Sodium Chloride () 250 mls @ 15 mls/hr IV .[id number] PRN PRN Reason: Saline Flush Last Infusion: 10/27/19 07:04 Dose: 15 mls/hr Documented by: Ibuprofen (Motrin) 400 mg PO Q4H PRN PRN PRN Reason: Pain Score 1-3/Temp > 100.7 F Last Admin: 10/26/19 21:06 Dose: 400 mg Documented by: Methocarbamol (Methocarbamol) 750 mg PO Q6H PRN PRN PRN Reason: Muscle Aches Nicotine (Nicoderm Cq (Pbkc)) 21 mg TRANSDERM. DAILY [facility] Last Admin: 10/26/19 16:10 Dose: Not Given Documented by: Ondansetron HCl (Zofran Odt) 4 mg PO Q6H PRN PRN PRN Reason: NAUSEA Pramipexole Dihydrochloride (Mirapex) 0.25 mg PO Q12H PRN PRN PRN Reason: Restless Legs Senna/Docusate Sodium (Senokot-S, Rosalinda-Colace) 2 tablet PO BID PRN PRN PRN Reason: Constipation Sodium Chloride () 10 - 40 ml IV UD PRN PRN Reason: SALINE FLUSH Last Admin: 10/26/19 16:26 Dose: 10 ml Documented by: Trazodone HCl (Desyrel) 50 mg PO QHS CLARA Last Admin: 10/26/19 21:01 Dose: Not Given Documented by: Zolpidem Tartrate (Ambien (Generic)) 5 mg PO QHS PRN PRN PRN Reason: INSOMNIA Medical Necessity - Tobacco Use Smoking Status: Current every day smoker Tobacco Use: Cigarettes Assessment/Plan All Active Problems (This Medical Record has been edited. Action required.) Acute right facial cellulitis (Acute) Opiate withdrawal (Acute) This is a 44 years old female patient presented to the emergency room because of right facial pain and swelling, being admitted for acute right facial cellulitis for treatment and she showed interest in getting detoxification and medical stabilization for acute opioid withdrawal. #1 acute right facial cellulitis: She is on IV Unasyn. She still having spikes of low-grade fever, other vital signs are stable. Swelling on the right face slightly worsened than yesterday. Plan: Continue same treatment, will do CT scan of the facial bones. #2 acute opiate withdrawal: She is on tapering Subutex, PRN Catapres, Bentyl, Vistaril, methocarbamol, Zofran, Mirapex and trazodone. Patient has been using IV fentanyl, last used the day before admission. Urine drug screen is positive for amphetamines and cannabinoids. Blood alcohol level less than 3. Serum is negative. Plan to continue same treatment. #3 recent history of acute liver failure: Due to hepatitis B and C as well as alcohol abuse. Patient stated that she has been sober and did not drink for the last 4 months. She was transferred recently to [facility] for treatment for full metabolic failure, she was treated conservatively. LFT revealed total bilirubin of 2.1, direct bili was 1.3, liver transaminases and alkaline phosphatase are normal. Pro time and INR were normal. Her LFT s ignificantly improved compared to LFT that was done on August,. #4 hepatitis B/hepatitis C: Due to IV drug use. Never been treated for it. Recommend follow-up with infectious disease as outpatient after treatment of opiate abuse. #5 polysubstance abuse: Plan as above, urine drug screen and blood alcohol level reviewed as above. #6 alcohol abuse: Patient said that she is sober for the last 4 months, blood alcohol of less than 3. #7 depression: She is not on medications. Continue trazodone. #8 DVT prophylaxis: Low risk patient, no prophylaxis indicated. This note was generated with PPTV dictation software. It may contain incorrect words, spelling, and punctuation that were not noted in checking the note before signing. Code Visit Inpatient E&M: 77180 Subs Hosp L2
--- NOTE | 2019-10-27 09:25 | CT_ITS ---
STUDY: CT FACIAL BONES WITH CONTRAST REASON FOR EXAM: Female, 44 years old. RT SIDE FACIAL CELLULITIS, RT FACIAL PAIN AND SWELLING, HX-IV DRUG USE/ALCOHOL ABUSE, ACUTE OPIATE WITHDRAWAL RADIATION DOSAGE (If Supplied By Facility): CTDIvol = ( 29.38 ) mGy, DLP = ( 584.19 ) mGycm TECHNIQUE: The patient was scanned in a multi detector CT scanner. Transaxial imaging was performed following the intravenous administration of IV 100mL Isovue-300. Sagittal and coronal images were reconstructed. Individualized dose optimization techniques were used for this CT. COMPARISON: None. FINDINGS: Diffuse soft tissue swelling overlying the mandible as well as the right mandibular and maxillary regions. There is evidence of a 1.4 cm x 0.8 cm hypodensity with thickened rim suggestive of focal abscess. Anterior to this, there is a similar appearing hypodensity measuring 8 mm. Findings are in keeping with the small abscesses within an area of diffuse skin thickening and subcutaneous swelling. No bony destruction is seen. Normal orbital newby and orbital contents. Normal nasal bones and anterior nasal spine. Normal facial bones. There is no demonstrated fracture. Normal visualized paranasal sinuses. CT/Sinus/Facial Bone WITH Contras IMPRESSION: Soft tissue swelling along the mandibular as well as the right maxillary region with the findings suggestive of 2 circumscribed abscesses within the subcutaneous tissues. No bony destruction is seen. Electronically Signed: David Laird, at 11:08 EST , Service support ,
[2019-10-27 09:59] VITALS: BP 104/59; PULSE 72; RESP 16; TEMP 36.6; O2SAT 99
[2019-10-27] MEDS: 0.9% Saline Lock 10 ML Syringe IV ×2 (10:02→13:48)
--- NOTE | 2019-10-27 11:48 | CASEMGMT ---
Social Work Note Pt reports to RN using Fentanyl and Meth. Pt listed as self-pay. SW in to speak with pt. SW asked pt about insurance. Pt states [facility] have [facility], [facility] that [facility] up my insurance. SW informed pt that this worker had called [facility] to come speak with pt regarding self-pay status. SW asked pt about recent substance abuse use. Pt confirms that she used Fentanyl and Meth the day before she was admitted to [facility]. Pt states that she is not currently seeing a counselor at [facility] but is agreeable to this worker calling [facility] to arrange an appointment with a counselor. SW informed pt that this worker will call [facility] to make appointment. Pt denied additional needs or concerns at this time. PAPITO placed a call to [facility] and arranged appointment with pt's counselor Thien for SaturdayNovember 02 at 11:00am. PAPITO wrote down pt's appointment and left appointment on pt's table in room as when this worker went back to update pt on appointment, pt was sleeping and didn't wake up when this worker entered the room. Plan: Pt as an appointment with [facility] to get linked up with a counselor. Coco Mendez SENIOR SECURITY ANALYST, MEMORIAL ADVISER
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
[2019-10-27 13:52] VITALS: BP 111/61; PULSE 81; RESP 16; TEMP 36.9; O2SAT 98
--- NOTE | 2019-10-27 15:50 | NURSING ---
This nurse into room to give 1500 scheduled dose of buprenorphine. Pt was awakened by this nurse, had previously been sleeping soundly. When awakened, pt agitated and raising voice at this nurse. While this nurse was logging into computer, patient states Are you going to give it to me already? This nurse informed patient of need to log into computer and scan her wristband, medication and verify everything was accurate for safety. When given the medication, patient upset that she is only receiving 2mg dose now, as per taper order. Patient threw med cup on floor after taking pill. Pt stated that the room was too hot, this nurse adjusted thermostat for comfort. Patient asked. What are they going to do about my fing face? This nurse reminded patient we were waiting for Dr. Guthrie to see the patient. Pt stated if You aren't going to fing do anything, I'm just to fing leave. This nurse educated patient on IV antibiotics. Patient then got out of bed, trying to find an outlet to charge her cell phone. Then patient states, I don't know why no one won't help me tie my gown. You like to see me looking like a fool. This nurse offered to tie patient's lower tie on gown, pt declined. Pt offered prn vistaril for anxiety, pt declined stating It won't help, you'll just be wasting the pills. Pt yelling at this nurse as a visitor had brought her a frappe from [facility] and that he didn't wake her up. Also yelling that she cannot drink thru the straw. This nurse suggested patient could try to use a spoon. No further needs voiced, will monitor.
--- NOTE | 2019-10-27 17:20 | PCM.CONS.GEN ---
Reason for Consult Date of Consultation: 10/27/19 Reason for Consultation: Acute right facial cellulitus History of Present Illness: The patient is a 44 year old Female admitted yesterday for what she describes as a small pimple starting in the right commissure of the lip. She states her swelling went upto the right eye but this has decreased since admission. Past Medical History Past Medical History (Chronic Problems): Chronic Problems Opiate dependence (Chronic) IVDU (intravenous drug user) (Chronic) Elevated liver enzymes (Chronic) Liver failure (Chronic) Polysubstance (including opioids) dependence, daily use (Chronic) Polysubstance (including opioids) dependence, daily use (Chronic) Nicotine dependence (Chronic) Depression (Chronic) Alcohol abuse (Chronic) Allergies hydrocodone bitartrate [From Vicodin] Allergy (Verified 10/26/19 09:44) Itching Surgical History: cholecystectomy, hysterectomy Psychiatric History: Depression, No pertinent psych hx, Prior suicide attempt 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 Action required.) Acute right facial cellulitis (Acute) - Physical Exam Vitals/I&O's: Vital Signs Temp Pulse Resp BP Pulse Ox 98.4 F 81 16 111/61 98 10/27/19 13:52 10/27/19 13:52 10/27/19 13:52 10/27/19 13:52 10/27/19 13:52 Oxygen Delivery Method Room Air Weight: 76.7 kg Body Mass Index (BMI) 25.7 Finger Stick Blood Glucose 223 Intake and Output for Last 24 Hours 10/25/19 10/26/19 10/27/19 23:59 23:59 23:59 Intake Total 936.25 / 936.25 1011.75 / 1011.75 Balance 936.25 / 936.25 1011.75 / 1011.75 General: Alert, Oriented x3, Cooperative, No apparent distress HEENT: Atraumatic, PERRLA, EOMI, Normocephalic Oral: Moist Mucosa Neck: Supple, No Nodes, Trachea Midline Neurological: Cranial nerves II-XII grossly intact Psych/Mental Status: Normal Affect Laboratory Results 10/26/19 16:20: Urine Color Yellow, Urine Clarity Sl. Cloudy, Urine pH 8.0, Ur Specific [place] 1.010, Urine Protein Negative, Urine Glucose (UA) Normal, Urine Ketones Negative, Urine Occult Blood Negative, Urine Nitrite Negative, Urine Bilirubin Negative, Urine Urobilinogen Normal, Ur Leukocyte Esterase 500 H, Urine RBC 0-5 SEEN, Urine WBC 5-10 SEEN, Ur Squamous Epith Cells 0-5 SEEN, Urine Bacteria 0 SEEN, Urine Mucus 0 SEEN Current Medications Buprenorphine HCl (Buprenorphine Hcl) 2 mg SL Q8H CLARA; Taper Stop: 10/29/19 18:59 Last Admin: 10/27/19 15:50 Dose: 2 mg Documented by: Clonidine (Catapres) 0.1 mg PO Q2H PRN PRN PRN Reason: Hot/Cold Sweats or Anxiety Last Admin: 10/26/19 21:07 Dose: 0.1 mg Documented by: Dicyclomine HCl (Bentyl) 20 mg PO Q6H PRN PRN PRN Reason: Abdomnial Discomfort Last Admin: 10/26/19 21:06 Dose: 20 mg Documented by: Hydroxyzine Pamoate (Vistaril Pamoate Capsule) 50 mg PO Q6H PRN PRN PRN Reason: Mild Anxiety Ampicillin Sodium/Sulbactam (Sodium 3 gm/ Sodium Chloride) 112 mls @ 150 mls/hr IV Q8 CLARA Last Admin: 10/27/19 13:46 Dose: 150 mls/hr Documented by: Sodium Chloride () 250 mls @ 15 mls/hr IV .[id number] PRN PRN Reason: Saline Flush Last Infusion: 10/27/19 10:33 Dose: Infused Documented by: Ibuprofen (Motrin) 400 mg PO Q4H PRN PRN PRN Reason: Pain Score 1-3/Temp > 100.7 F Last Admin: 10/26/19 21:06 Dose: 400 mg Documented by: Methocarbamol (Methocarbamol) 750 mg PO Q6H PRN PRN PRN Reason: Muscle Aches Nicotine (Nicoderm Cq (Pbkc)) 21 mg TRANSDERM. DAILY CLARA Last Admin: 10/27/19 10:02 Dose: Not Given Documented by: Ondansetron HCl (Zofran Odt) 4 mg PO Q6H PRN PRN PRN Reason: NAUSEA Pramipexole Dihydrochloride (Mirapex) 0.25 mg PO Q12H PRN PRN PRN Reason: Restless Legs Senna/Docusate Sodium (Senokot-S, Rosalinda-Colace) 2 tablet PO BID PRN PRN PRN Reason: Constipation Sodium Chloride () 10 - 40 ml IV UD PRN PRN Reason: SALINE FLUSH Last Admin: 10/27/19 13:48 Dose: 10 ml Documented by: Trazodone HCl (Desyrel) 50 mg PO QHS CLARA Last Admin: 10/26/19 21:01 Dose: Not Given Documented by: Zolpidem Tartrate (Ambien (Generic)) 5 mg PO QHS PRN PRN PRN Reason: INSOMNIA Assessment/Plan All Active Problems (This Medical Record has been edited. Action required.) Acute right facial cellulitis (Acute) Opiate withdrawal (Acute) The swelling is mostly localized to the right cheek and right commissure of the lip where I believe the infectious process has started. I do not feel as though this is dental in origin. The patients teeth are not in good repair but she has no dental pain. Maybe a insect bite etc. At this time there is no ocular extension or significant fear of orbital involvement with impending cavernous sinus involvement. I would continue present management of antibiotics and fluids. Would only apply heat only no ice at this time. If no noticeable improvement over the next day then consider OR for I and D
[2019-10-27] MEDS: hydrOXYzine PAM 25 MG Capsule 50 MG PO (17:26)
[2019-10-27] MEDS: Methocarbamol 750 MG Tablet PO (17:26)
[2019-10-27] MEDS: Pramipexole Di-HCl 0.25 MG Tablet PO (17:27)
[2019-10-27] MEDS: Ibuprofen 400 MG Tablet PO (17:27)
[2019-10-27] MEDS: cloNIDine HCl 0.1 MG Tablet PO ×2 (17:27→22:19)
[2019-10-27 18:34] VITALS: BP 120/68; PULSE 88; RESP 18; TEMP 37.2; O2SAT 98
[2019-10-27] MEDS: Zolpidem Tartrate 5 MG Tablet PO (22:19)
[2019-10-27 22:27] VITALS: BP 149/95; PULSE 82; RESP 16; TEMP 37.1; O2SAT 100
[2019-10-28] MEDS: 0.9% Saline Lock 10 ML Syringe IV (06:21)
[2019-10-28] MEDS: Buprenorphine HCl 2 MG TAB.SUBL SL (06:21)
--- NOTE | 2019-10-28 06:34 | NURSING ---
Addendum entered by Ayanna Troncoso 10/28/19 07:27: Ede RN was going to remove IV but patient removed it herself. Original Note: When this RN went into room for am rounding and medications, pt yelling and being rude to staff. PT became more upset and irrational. She started throwing things in her room and demanding that staff pick it up. PT refused to have vitals taken or IV antibiotic given. PT later called out want to leave AMA, IV removed by Ede SHELBY. PT refused to sign AMA form. Hospitalist Dr. Heard notified.
--- NOTE | 2019-10-28 06:36 | PCM.PN.BLA ---
Progress Note Was notified but patient has left AMA
--- NOTE | 2019-10-28 06:37 | NURSING ---
Patient yelling at staff at this time. Refused am labs, refused am antibiotics. She was yelling my room is a mess and threw everything off of her bedside table onto the floor. Pulled out her own IV and refused to sign AMA paperwork. Kept yelling, If i were anyone else they would treat my face swelling, but not me because I am a junkie. Dr. Heard aware of AMA
--- NOTE | 2019-10-28 10:50 | PCM.DC.SUM ---
Discharge Date and Diagnosis Date of Admission: 10/26/19 Date of Discharge: 10/28/19 - Primary Discharge Diagnosis #1 acute right submandibular/right maxillary abscess/facial cellulitis. #2 acute opiate withdrawal. - Secondary Discharge Diagnosis Chronic Problems Opiate dependence (Chronic) IVDU (intravenous drug user) (Chronic) Elevated liver enzymes (Chronic) Liver failure (Chronic) Polysubstance (including opioids) dependence, daily use (Chronic) Polysubstance (including opioids) dependence, daily use (Chronic) Nicotine dependence (Chronic) Depression (Chronic) Alcohol abuse (Chronic) Hospital Course and Treatment Imaging Results: Clinical Impression(s) from Imaging Studies Facial/Sinus 10/27/19 09:25 IMPRESSION: Soft tissue swelling along the mandibular as well as the right maxillary region with the findings suggestive of 2 circumscribed abscesses within the subcutaneous tissues. No bony destruction is seen. Electronically Signed: David Sisi, at 11:08 EST , Service support , Dr. SEQUEIRA, maxillofacial surgery. Operations: None Procedures: None Summary of Care Provided: The patient is a 44 year old F patient presented to the emergency room because of swelling and pain on the right side of her face. She was admitted because of acute right facial cellulitis, started on IV antibiotics. Patient has been using IV fentanyl and she was interested in starting detoxification program. She was started on tapering course of Subutex. She was continued on IV antibiotics for right facial cellulitis. Her routine blood work was unremarkable. 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 LFT during this admission revealed slightly related to the bilirubin which is significantly better than her LFTs on August,. Her liver transaminases were normal as well as pro time and INR. CT scan of the facial bones done and revealed right mandibular/right maxillary abscess without evidence of bony destruction. Dr. Guthrie, the oral surgeon, consulted and recommended to continue IV antibiotics and patient may need to go for surgery if no improvement. Today morning and before patient was evaluated, she was upset and she left AGAINST MEDICAL ADVICE. - Physical Exam Vitals/I&O's: Vital Signs Temp Pulse Resp BP Pulse Ox 98.7 F 82 16 149/95 H 100 10/27/19 22:27 10/27/19 22:27 10/27/19 22:27 10/27/19 22:27 10/27/19 22:27 Oxygen Delivery Method Room Air Weight: 169 lb 1.513 oz Body Mass Index (BMI) 25.7 Finger Stick Blood Glucose 223 Intake and Output for Last 24 Hours 10/26/19 10/27/19 10/28/19 23:59 23:59 23:59 Intake Total 936.25 / 936.25 1585.75 / 1585.75 Balance 936.25 / 936.25 1585.75 / 1585.75 Primary Care Physician: Taye Pinto DO [Primary Care Provider] - Disposition: Against Medical Advice Medical Necessity - Tobacco Use Smoking Status: Current every day smoker Tobacco Use: Cigarettes Meaningful Use Info Meaningful Use Diagnoses (Choose all that apply): None applicable
== END 2019-10-28 06:35 | disposition left against medical advice (07) | DRG 603 ==
LOC: ED 10:41 → MS3 11:34
PROVIDERS: Admitting Provider Hospitalist; Emergency Provider Emergency Medicine; PCP Family Medicine; Visit Provider Hospitalist
DX: L03.211 Cellulitis of face (principal); B19.10 Unspecified viral hepatitis B without hepatic coma; F11.23 Opioid dependence with withdrawal; F17.210 Nicotine dependence, cigarettes, uncomplicated; B19.20 Unspecified viral hepatitis C without hepatic coma; F32.9 Major depressive disorder, single episode, unspecified; R74.8 Abnormal levels of other serum enzymes; F10.10 Alcohol abuse, uncomplicated; Z87.19 Personal history of other diseases of the digestive system; Y90.0 Blood alcohol level of less than 20 mg/100 ml
CPT/HCPCS: 36415; 70487; 80048; 80076; 80307; 80320; 81001; 82150; 84703; 85025; 85610; 97802; 99285; J7030; J7050; Q9967; A4216; G0480; J0295

== ENCOUNTER 2020-02-06 14:04 | Observation (INO) | payer MEDICAID, SELFPAY ==
[2019-10-26 11:40] VITALS: BMI 25.7
[2020-02-06 14:05] VITALS: BP 136/96; PULSE 104; RESP 16; TEMP 36.9; O2SAT 93; BMI 28.3
[2020-02-06 14:14] VITALS: O2SAT 100
--- NOTE | 2020-02-06 15:00 | ED.RN ---
pt continues to be uncomfortable in bed.
--- NOTE | 2020-02-06 15:02 | ED.VISSUMM ---
- ER Visit Summary Date of Service: 02/06/20 Chief Complaint: Opiate overdose History of Present Illness: The patient is a [address] Pinto. She reports that she injected what she thought was heroin intravenously. Next thing she knew she was on her way here. Police gave 2 doses of 2 mg of Narcan nasally. EMS gave a third nasally. She is now awake and appropriate. Review of systems: General: No fever, cold sweats. Cardiovascular: No chest pain, palpitations. Respiratory: No cough, shortness of breath, dyspnea on exertion. Gastrointestinal: No abdominal pain, nausea, vomiting, diarrhea, melena, or hematochezia. Genitourinary: No dysuria, frequency, hematuria. Skin: No rash. Neuro: No headache, numbness, weakness. Physical Examination: Vitals: Stable. Afebrile. General: Well-nourished and well-developed. Head: Normocephalic atraumatic. Neck: Supple, no lymphadenopathy. No JVD. Nontender. Cardiovascular: Tachycardic regular rhythm. No murmurs. Respiratory: No respiratory distress. Clear to auscultation bilaterally. Abdominal: Soft, nontender, nondistended, normal bowel sounds. No guarding, rebound, or peritoneal signs. Back: Nontender. Extremities: Nontender, no edema. Injection sites the right forearm with no evidence of infection. There is no erythema, warmth, or induration. Skin: Normal color, no rash. Neurologic: Alert and oriented ?3. Cranial nerves II through XII are intact. Normal strength and sensation. Psych: Normal affect. Emergency Department Course and Treatment: Patient was observed over the course of an hour in the emergency department. When I went back and talked her about going home and following up at 180 she asked to be admitted for opiate abuse. Treatment Plan: Patient was discussed with Dr. Slaughter. She will be admitted to the hospital for further evaluation and treatment. Disposition: Admitted in improved condition. Impression: 1. Opiate overdose. 2. Opiate abuse. This note was generated with [employer] software. It may contain incorrect words, spelling, and punctuation that were not noted in review of the chart prior to signing ED Disposition - Plan for ED Patient: Instructions: ED Overdose Opiate Referrals: Taye Pinto DO [Primary Care Provider] - [facility] [STAFF PHYSICIAN] - As soon as possible
[2020-02-06 15:50] VITALS: BP 129/74; PULSE 89; RESP 15; TEMP 36.5; O2SAT 98
--- NOTE | 2020-02-06 15:56 | PCM.HP.STD ---
Problem List (1) Opiate dependence Status: Chronic (2) Opiate withdrawal Status: Acute (3) IVDU (intravenous drug user) Status: Chronic (4) Polysubstance (including opioids) dependence, daily use Status: Chronic (5) Nicotine dependence Status: Chronic Qualifiers: (6) Depression Status: Chronic (7) Alcohol abuse Status: Chronic History of Present Illness Date of Admission: 02/06/20 Chief Complaint: Opioid overdose. The patient is a 44 year old F with past medical history as mentioned above presented to the emergency room by police because of opioid overdose. Reportedly, police gave the patient 2 doses of Narcan nasally and she received another dose of nasal Narcan by EMS and upon arrival to ED, she was alert, oriented and appropriate. Patient informed the ER physician that she used IV heroin today and next thing she knows that she is on her way to the hospital. She told me that she used half a gram of IV fentanyl and she has been using IV fentanyl daily for the 6 months. She was admitted in the past for medical stabilization for opioid withdrawal as well as alcohol withdrawal but she relapsed using IV opioids. She has been supple and not drinking alcohol for the last several months. Although she came in for overdose of IV fentanyl, she complained of shakiness, restlessness and she mentioned that her withdrawal symptoms can come back very quick even within couple of hours and she is interested and admission for medical stabilization. I had a discussion with the patient regarding admission for medical stabilization/detoxification given her history of admission for the same problem and same treatment but she relapsed using IV opioids. Patient started crying and she mentioned that she is not interested in using drugs anymore and she is interested and residential treatment at [address] [place] [address]. During her last admission on October,, she was admitted for acute right facial cellulitis as well as acute opioid withdrawal but she left the hospital AGAINST MEDICAL ADVICE. She will history of alcohol abuse and she mentioned that she has been sober for the last several months. She has history of depression and currently, she is not taking any medications. She tested hepatitis B and hepatitis C due to IV drug use and also history of liver failure, she never been treated for B and C and her LFT returning back to normal on October,. In the emergency department, her vital signs were stable. No routine blood work done in the ED. She is being admitted for acute opioid overdose/withdrawal for medical stabilization. Past Medical History Past Medical History (Chronic Problems): Chronic Problems Opiate dependence (Chronic) IVDU (intravenous drug user) (Chronic) Elevated liver enzymes (Chronic) Liver failure (Chronic) Polysubstance (including opioids) dependence, daily use (Chronic) Nicotine dependence (Chronic) Depression (Chronic) Alcohol abuse (Chronic) Allergies hydrocodone bitartrate [From Vicodin] Allergy (Verified 02/06/20 14:09) Itching Home Medications: Ambulatory Orders Medication Instructions Recorded NK 02/06/20 Surgical History: cholecystectomy, hysterectomy Psychiatric History: Depression, No pertinent psych hx, Prior suicide attempt [employer]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 Denies: Anorexia, Chills, Fever, Weakness Eyes: Denies: Blurred vision, Double vision, Drainage, Redness HEENT: Denies: Difficulty Hearing, Ear Pain, Eye Pain, Nasal Congestion, Sore Throat Cardiovascular: Denies: Chest Pain, Claudication, Chest Pressure, Edema, Heaviness, Palpitations, Syncope Respiratory: Denies: Cough, Pleuritic Pain, Shortness of Breath, Sputum production, Wheezing Gastrointestinal: Reports: Abdominal Pain. Denies: Constipation, Diarrhea, Nausea, Vomiting Genitourinary: Denies: Dysuria, Frequency, Hematuria Musculoskeletal: Denies: Arm Pain, Back Pain, Foot Pain Skin: Denies: Dryness, Rash Neurological: Reports: Tremor. Denies: Balance problems, Double vision, Change in Speech, Slurred speech, Confusion, Headaches, Numbness Psychiatric: Reports: Depression. Denies: Anxiety Endocrine: Denies: Change in Body Habitus, Polydipsia, Polyuria VTE Information - Inpt Only VTE Present on Admission: Yes VTE Mechan Device Prophylaxis: None VTE Pharm Prophylaxis ordered?: No - Physical Exam Vitals/I&O's: Vital Signs Temp Pulse Resp BP Pulse Ox 97.7 F L 89 15 129/74 H 98 02/06/20 15:50 02/06/20 15:50 02/06/20 15:50 02/06/20 15:50 02/06/20 15:50 Oxygen Delivery Method Room Air Weight: 186 lb 8.177 oz Body Mass Index (BMI) 28.3 Finger Stick Blood Glucose 223 General: Alert, Oriented x3, Cooperative, - - Restless, anxious. HEENT: Atraumatic, PERRLA, EOMI, Normocephalic Oral: Moist Mucosa, No Gingival or Mucosal Lesions/ Ulcerations Neck: Supple, No JVD, Negative Carotid Bruits, Trachea Midline, Thyroid Normal Size and Texture Lungs: Clear to auscultation, Normal air movement, No rhonchi, No wheeze, No rales Cardiovascular: Regular rate, Regular Rhythm, Normal S1, Normal S2, PMI Normal Abdomen: Bowel Sounds Present, Soft, Non Tender, Non-Distended, No Hepato-splenomegaly Extremities: No clubbing, No cyanosis, No edema Skin: No rashes, No breakdown Lymphatic: No Cervical, Supraclavicular, or Inguinal Adenopathy Neurological: Cranial nerves II-XII grossly intact, Motor Exam 5/5 strength throughout Psych/Mental Status: Anxious, Restless, Alert and oriented to time, place, person, mood and affect Assessment/Plan All Active Problems (This Medical Record has been edited. Action required.) Opiate withdrawal (Acute) This is a 44 years old female patient presented to the emergency room by police because she overdosed on opioids, she informed the ER physician that she used IV heroin and informed me that she used IV fentanyl and she mentioned that her withdrawal symptoms comes in very quickly probably within couple of hours and she is interested for admission for medical stabilization. #1 acute opiate withdrawal: Patient overdosed on IV fentanyl/? IV heroin this morning, received nasal Narcan x3 and now she is alert and oriented. Patient has history of admission to the hospital for detoxification but she relapsed. She stated that her withdrawal symptoms comes on very quickly and she was crying and very anxious to be admitted for detoxification. Plan: Admit to [facility] floor, stat CBC, CMP, blood alcohol level, urine drug screen, serum assist, start opioid stabilization program with tapering Subutex, PRN Tylenol, Catapres, Bentyl, Neurontin, Vistaril, Imodium, methocarbamol, Zofran and trazodone nightly. Patient is interested in residential treatment at [facility], they will be contacted. #2 History of liver failure: Due to hepatitis B and C as well as alcohol abuse. During the last admission, LFT revealed slightly elevated bilirubin but liver transaminases and alkaline phosphatase was normal. Will check LFT. 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 Never been treated for it. Recommend follow-up with infectious disease as outpatient after treatment of opiate abuse. #4 polysubstance abuse: Plan as above, urine drug screen, blood alcohol level. #5 alcohol abuse: Currently, she is not drinking, has been sober for several months. will check blood alcohol level. #6 depression: She is not on medications. Will start trazodone as above. #7 DVT prophylaxis: Low risk patient, no prophylaxis indicated. This note was generated with [employer] dictation software. It may contain incorrect words, spelling, and punctuation that were not noted in checking the note before signing. Inpatient E&M: [id number] Init Hosp L2
[2020-02-06 16:07] VITALS: BP 135/87; PULSE 87; RESP 18; O2SAT 95
[2020-02-06 16:53] VITALS: BMI 27.4
[2020-02-06 16:57] VITALS: BMI 27.4
[2020-02-06 17:10] VITALS: BP 126/74; PULSE 84; RESP 16; TEMP 36.6; O2SAT 96
[2020-02-06 17:26] LABS: Absolute Lymphocyte Count 0.96 X10^3/uL (0.83-4.51); Absolute Neutrophil Count 3.6 X10^3/uL (2.0-7.7); Basophil# 0.03 X10^3/uL; Basophil% 0.6 % (0-1); Eosinophil# 0.21 X10^3/uL; Hematocrit 34.5 % (37-47); Hemoglobin 11.4 g/dL (12.0-15.0); Lymphocyte # 0.96 X10^3/ul (4.0); Lymphocyte % 18.5 % (19-41); Mean Corpuscular Hgb 31.8 pg (27.0-32.0); Mean Corpuscular Volume 96.4 fL (81-99); Mean Platelet Vol. 9.2 fl (6.2-12.0); Monocyte# 0.36 X10^3/uL; Monocyte% 6.9 % (0-10); NRBC Flagged by Analyzer 0 % (0-5); Neutrophil # 3.62 X10^3/uL (2.7-7.7); Neutrophil % 69.8 % (47-70); Platelet Count 162 K/mm3 (150-450); RBC Distribution Width CV 12.6 % (11.6-14.6); Red Blood Count 3.58 M/mm3 (4.2-5.4); White Blood Count 5.2 K/mm3 (4.4-11.0)
[2020-02-06 17:39] LABS: Internal QC Validated? YES +Cl - CLEAR BKGD; Pregnancy, Serum, hCG Quali. NEGATIVE Negative
[2020-02-06 17:48] LABS: ALB/GLOB Ratio 0.7 RATIO (0.9-2.4); AST(SGOT) 49 U/L (15-37); Alanine Aminotransfer ALT/SGPT 46 U/L (13-56); Alkaline Phosphatase 139 U/L (45-117); Anion Gap 5 (5-15); BUN 11 mg/dL (7-18); BUN/Creat Ratio 20.9 RATIO (10-20); Calcium,Total 8.4 mg/dL (8.5-10.1); Chloride 103 mmol/L (98-107); Creatinine, Serum 0.53 mg/dL (0.55-1.02); EST Glomerular Filtration Rate 134 mL/min (>60); Est Glom Filt Rate - Afr Amer 162 mL/min (>60); Estimated Creatinine Clearance 138.06 ml/min; Globulin 4.1 g/dL (2.2-4.2); Glucose 95 mg/dL (74-106); Potassium 3.5 mmol/L (3.5-5.1); Protein, Total 7.1 g/dL (6.4-8.2); Sodium Level 137 mmol/L (136-145)
[2020-02-06 17:56] LABS: Alcohol, Blood (Medical)-Serum < 3.0 mg/dL
[2020-02-06 19:48] VITALS: BP 110/61; PULSE 81; RESP 18; TEMP 36.8; O2SAT 98
[2020-02-07 02:00] LABS: Amphetamine Urine VISTA POSITIVE (<1000 ng/mL); Barbiturate Urine VISTA NEGATIVE (< 200 ng/mL); Benzodiazepine Urine VISTA NEGATIVE (< 200 ng/mL); Cocaine Urine VISTA NEGATIVE (< 300 ng/mL); Ecstacy Urine VISTA NEGATIVE (< 500 ng/mL); Methadone Urine VISTA NEGATIVE (< 300 ng/mL); PCP Urine VISTA NEGATIVE (< 25 ng/mL); THC Urine VISTA POSITIVE (< 50 ng/mL); Vista UDS pH Range 6
[2020-02-07 02:13] VITALS: BP 95/62; PULSE 70; RESP 17; TEMP 36.6; O2SAT 96
[2020-02-07] MEDS: Buprenorphine HCl 2 MG TAB.SUBL SL ×3 (02:15→18:18)
--- NOTE | 2020-02-07 07:49 | PN_ITS ---
Subjective: Chief complaint: Follow-up after admission for acute opioid withdrawal. Patient seen and examined. No acute events overnight. Small, she is feeling better, was able to sleep last night. Still having some abdominal cramps and shakiness but started to improve. Her vital signs are stable. - Physical Exam Vitals/I&O's: Vital Signs Temp Pulse Resp BP Pulse Ox 97.9 F 70 17 95/62 96 02/07/20 02:13 02/07/20 02:13 02/07/20 02:13 02/07/20 02:13 02/07/20 02:13 Oxygen Delivery Method Room Air Weight: 180 lb 5.41 oz Body Mass Index (BMI) 27.4 Finger Stick Blood Glucose 223 Intake and Output for Last 24 Hours 02/05/20 02/06/20 02/07/20 23:59 23:59 23:59 Intake Total 720 / 720 Output Total 900 / 900 Balance -180 / -180 General: Alert, Oriented x3, Cooperative, No apparent distress HEENT: Atraumatic, PERRLA, EOMI, Normocephalic Oral: Moist Mucosa, No Gingival or Mucosal Lesions/ Ulcerations Neck: Supple, No JVD, Negative Carotid Bruits, Trachea Midline, Thyroid Normal Size and Texture Lungs: Clear to auscultation, Normal air movement, No rhonchi, No wheeze, No rales Cardiovascular: Regular rate, Regular Rhythm, Normal S1, Normal S2, PMI Normal Abdomen: Bowel Sounds Present, Soft, Non Tender, Non-Distended, No Hepato- splenomegaly Extremities: No clubbing, No cyanosis, No edema Skin: No rashes, No breakdown Lymphatic: No Cervical, Supraclavicular, or Inguinal Adenopathy Neurological: Cranial nerves II-XII grossly intact, Neuro grossly intact Psych/Mental Status: Normal Affect, Appropriate, Alert and oriented to time, place, person, mood and affect Laboratory Results 02/06/20 17:18: Serum , Qual NEGATIVE 02/06/20 17:18: WBC 5.2, RBC 3.58 L, Hgb 11.4 L, Hct 34.5 L, MCV 96.4, MCH 31.8, MCHC 33.0, RDW Std Deviation 45.0 H, RDW Coeff of Katie 12.6, Plt Count 162, MPV 9.2, Immature Gran % (Auto) 0.200, Neut % (Auto) 69.8, Lymph % (Auto) 18.5 L, [place] % (Auto) 6.9, Eos % (Auto) 4.0, Baso % (Auto) 0.6, Absolute Neuts (auto) 3.6, Absolute Lymphs (auto) 0.96, Nucleated RBC % 0 02/06/20 17:18: Sodium 137, Potassium 3.5, Chloride 103, Carbon Dioxide 29.0, Anion Gap 5, BUN 11, Creatinine 0.53 L, Estim Creat Clear Calc 138.06, Est GFR (MDRD) Af Amer 162, Est GFR (MDRD) Non-Af 134, BUN/Creatinine Ratio 20.9 H, Glucose 95, Calcium 8.4 L, Total Bilirubin 0.70, AST 49 H, ALT 46, Alkaline Phosphatase 139 H, Total Protein 7.1, Albumin 3.0 L, Globulin 4.1, Albumin/G lobulin Ratio 0.7 L 02/06/20 17:18: Ethyl Alcohol < 3.0 02/06/20 23:05: Urine Opiates Screen NEGATIVE, Urine Methadone Screen NEGATIVE, Ur Barbiturates Screen NEGATIVE, Ur Phencyclidine Scrn NEGATIVE, Ur Amphetamines Screen POSITIVE H, U Methamphetamin-MDMA NEGATIVE, U Benzodiazepines Scrn NEGATIVE, Urine Cocaine Screen NEGATIVE, U Cannabinoids Screen POSITIVE H, Ur Drug Screen Comment Current Medications Acetaminophen (Tylenol) 500 mg PO Q4H PRN PRN PRN Reason: Temp > 100.4 F Buprenorphine HCl (Buprenorphine Hcl) 4 mg SL Q8H CLARA; Taper Stop: 02/10/20 01:29 Last Admin: 02/07/20 02:15 Dose: 4 mg Documented by: Clonidine (Catapres) 0.1 mg PO Q8H PRN PRN PRN Reason: RESTLESSNESS Dicyclomine HCl (Bentyl) 20 mg PO Q6H PRN PRN PRN Reason: Abdominal Discomfort Gabapentin (Neurontin) 300 mg PO Q8H PRN PRN PRN Reason: moderate to severe anxiety Hydroxyzine Pamoate (Vistaril Pamoate Capsule) 50 mg PO Q6H PRN PRN PRN Reason: mild anxiety Loperamide HCl (Imodium) 2 mg PO Q4H PRN PRN PRN Reason: LOOSE STOOLS Methocarbamol (Methocarbamol) 1,500 mg PO Q6H PRN PRN PRN Reason: MUSCLE SPASM Nicotine (Nicoderm Cq (Pbkc)) 21 mg TRANSDERM. DAILY CLARA Ondansetron HCl (Zofran) 8 mg PO Q8H PRN PRN PRN Reason: NAUSEA Trazodone HCl (Desyrel) 100 mg PO QHS PRN PRN PRN Reason: INSOMNIA Medical Necessity - Tobacco Use Smoking Status: Heavy Smoker (>10/day) Tobacco Use: Cigarettes Assessment/Plan All Active Problems (This Medical Record has been edited. Action required.) Opiate withdrawal (Acute) This is a 44 years old female patient presented to the emergency room by police because she overdosed on opioids, she informed the ER physician that she used IV heroin and informed me that she used IV fentanyl and she mentioned that her withdrawal symptoms comes in very quickly probably within couple of hours and she is interested for admission for medical stabilization. #1 acute opiate withdrawal: She is on tapering course of Subutex, PRN Tylenol, Catapres, Bentyl, Neurontin, Vistaril, Imodium, methocarbamol, Zofran and trazodone nightly. Routine blood work was remarkable for hemoglobin of 11.4 g/dL, otherwise normal. LFT was unremarkable. Serum test was negative. Urine drug screen was positive for amphetamines and cannabinoids. Blood alcohol level is less than 3. Patient is interested in residential treatment at [facility] after she completes the medical stabilization. Plan to continue same treatment. #2 History of liver failure: Due to hepatitis B and C as well as alcohol abuse. LFT was unremarkable, stable. 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 Never been treated for it. Recommend follow-up with infectious disease as outpatient after treatment of opiate abuse. #4 polysubstance abuse: Urine drug screen was positive for amphetamines and cannabinoids. Blood alcohol level was less than 3. #5 alcohol abuse: Currently, she is not drinking, has been sober for several months. Blood alcohol level was less than 3. #6 depression: She is not on medications. She is on trazodone. #7 DVT prophylaxis: Low risk patient, no prophylaxis indicated. This note was generated with SecureAlertation software. It may contain incorrect words, spelling, and punctuation that were not noted in checking the note before signing. Inpatient E&M: 84663 Subs Hosp L2
[2020-02-07 10:24] VITALS: BP 107/60; PULSE 81; RESP 16; TEMP 36.7; O2SAT 98
[2020-02-07] MEDS: cloNIDine HCl 0.1 MG Tablet PO (10:34)
[2020-02-07] MEDS: Methocarbamol 750 MG Tablet 1500 MG PO (10:34)
[2020-02-07] MEDS: hydrOXYzine PAM 25 MG Capsule 50 MG PO (10:35)
--- NOTE | 2020-02-07 16:03 | NURSING ---
Offered prn's, pt refused.
--- NOTE | 2020-02-07 18:42 | NURSING ---
Scheduled subutex given. This nurse attempted to give Catapress, Vistaril, and methocarbanol but pt refused.
[2020-02-07 20:05] VITALS: BP 108/64; PULSE 78; RESP 16; TEMP 37; O2SAT 100
[2020-02-07 20:07] VITALS: RESP 16; O2SAT 100
[2020-02-08] MEDS: Buprenorphine HCl 2 MG TAB.SUBL SL ×3 (01:45→16:42)
[2020-02-08 01:46] VITALS: BP 104/59; PULSE 69; RESP 16; TEMP 36.9; O2SAT 99
[2020-02-08 09:00] VITALS: BP 109/64; PULSE 74; RESP 16; TEMP 36.6; O2SAT 98
--- NOTE | 2020-02-08 09:01 | CASEMGMT ---
Social Work Note Pt is at [facility] for Opiate withdrawal. SW placed a call to Sarah at [facility] and left message that pt will need to be seen. Coco Mendez SALES TRAINER, [employer]ACER
--- NOTE | 2020-02-08 12:20 | PN_ITS ---
Subjective: Seen and examined. She has no complaints. He has been managed for acute opioid withdrawal. Review systems otherwise negative. Vitals/I&O's: Vital Signs Temp Pulse Resp BP Pulse Ox 97.9 F 74 16 109/64 98 02/08/20 09:00 02/08/20 09:00 02/08/20 09:00 02/08/20 09:00 02/08/20 09:00 Oxygen Delivery Method Room Air Weight: 180 lb 5.41 oz Body Mass Index (BMI) 27.4 Finger Stick Blood Glucose 223 Intake and Output for Last 24 Hours 02/06/20 02/07/20 02/08/20 23:59 23:59 23:59 Intake Total 1500 / 1700 300 / 300 Output Total 900 / 900 Balance 600 / 800 300 / 300 General: Alert, Oriented x3, Cooperative, No apparent distress HEENT: Atraumatic, PERRLA, EOMI, Normocephalic Oral: Moist Mucosa Neck: Supple, No JVD, Negative Carotid Bruits Lungs: Clear to auscultation, Normal air movement, No rhonchi, No wheeze, No rales Cardiovascular: Regular rate, Regular Rhythm, Normal S1, Normal S2, No murmurs Abdomen: Bowel Sounds Present, Soft, Non Tender, Non-Distended, No Hepato- splenomegaly Extremities: No clubbing, No cyanosis, No edema, Capillary Refill Less than 3 Seconds Skin: No rashes, No breakdown Musculoskeletal: No Tenderness to Palpation of Joints or Extremities Lymphatic: No Cervical, Supraclavicular, or Inguinal Adenopathy Neurological: Cranial nerves II-XII grossly intact, Neuro grossly intact, Motor Exam 5/5 strength throughout Psych/Mental Status: Normal Affect, Appropriate, Alert and oriented to time, place, person, mood and affect Current Medications Acetaminophen (Tylenol) 500 mg PO Q4H PRN PRN PRN Reason: Temp > 100.4 F Buprenorphine HCl (Buprenorphine Hcl) 2 mg SL Q8H CLARA; Taper Stop: 02/10/20 01:29 Last Admin: 02/08/20 08:53 Dose: 2 mg Documented by: Clonidine (Catapres) 0.1 mg PO Q8H PRN PRN PRN Reason: RESTLESSNESS Last Admin: 02/07/20 10:34 Dose: 0.1 mg Documented by: Dicyclomine HCl (Bentyl) 20 mg PO Q6H PRN PRN PRN Reason: Abdominal Discomfort Gabapentin (Neurontin) 300 mg PO Q8H PRN PRN PRN Reason: moderate to severe anxiety Hydroxyzine Pamoate (Vistaril Pamoate Capsule) 50 mg PO Q6H PRN PRN PRN Reason: mild anxiety Last Admin: 02/07/20 10:35 Dose: 50 mg Documented by: Loperamide HCl (Imodium) 2 mg PO Q4H PRN PRN PRN Reason: LOOSE STOOLS Methocarbamol (Methocarbamol) 1,500 mg PO Q6H PRN PRN PRN Reason: MUSCLE SPASM Last Admin: 02/07/20 10:34 Dose: 1,500 mg Documented by: Nicotine (Nicoderm Cq (Pbkc)) 21 mg TRANSDERM. DAILY CLARA Last Admin: 02/08/20 08:53 Dose: Not Given Documented by: Ondansetron HCl (Zofran) 8 mg PO Q8H PRN PRN PRN Reason: NAUSEA Trazodone HCl (Desyrel) 100 mg PO QHS PRN PRN PRN Reason: INSOMNIA STROKE Vital Signs/Narrative: Vital Signs Temp Pulse Resp BP Pulse Ox 02/08/20 09:00 97.9 F 74 16 109/64 98 Medical Necessity - Tobacco Use Smoking Status: Heavy Smoker (>10/day) Tobacco Use: Cigarettes Assessment/Plan All Active Problems (This Medical Record has been edited. Action required.) Opiate withdrawal (Acute) 1. Acute opioid withdrawal * Opioid withdrawal protocol was repeated often. * Urine tox screen was positive for cannabinoids and amphetamines. * Patient wishes to go to [facility] residential treatment after she is done with medical stabilization. * Case management on board. * CINA score today is 2 * . History of liver failure: Due to hepatitis B and C as well as alcohol abuse. Currently stable. 3. Hepatitis B and C: Due to IV drug use. Is treatment na?ve. Counseled that she would need to quit using IV drugs to qualify for treatment. 4. Depression: Not on any medications on outpatient basis. Follow-up with primary care doctor as needed. DVT prophylaxis: Low risk. Encourage ambulation. Inpatient E&M: 42371 Subs Hosp L2
--- NOTE | 2020-02-08 14:33 | ADDICTION ---
This telegraphic typewriter mechanic attempted to meet with patient, in her room, to complete ASAM assessment and begin discharge planning. Patient stated that I just want to get out of here and reported that she is feeling increasing symptoms of anxiety. She reported willingness to engage with [facility] upon discharge and verbally consented to Residential referral following medical withdrawal management. patient shared that if she leaves the hospital today, she will likely use heroin despite her overdose//Narcan episode on 02/06/2020. She requested to end this conversation prior to completed full assessment/discharge planning because I need to get out of here. I need to get meds for anxiety. my nurse needs to get in here!. This telegraphic typewriter mechanic attempted to keep patient engaged but patient was emotionally dysregulated and did not respond positively to this telegraphic typewriter mechanic's attempts at engagement. Patient reported the following active withdrawal symptoms: cramping, nausea, severe anxiety, restless leg, sweating, agitation. She appears appropriate for the 4.0 Medically Managed Intensive Inpatient LOC at this time based on active withdrawal symptoms. This telegraphic typewriter mechanic will inform hospital drug abuse social worker that client declined further participation in this meeting and that this telegraphic typewriter mechanic will attempt to engage tomorrow.
[2020-02-08] MEDS: Gabapentin 300 MG Capsule PO (14:36)
[2020-02-08] MEDS: Dicyclomine 10 MG Capsule 20 MG PO (14:36)
[2020-02-08 15:00] VITALS: BP 104/70; PULSE 75; RESP 16; TEMP 36.6; O2SAT 98
[2020-02-08] MEDS: hydrOXYzine PAM 25 MG Capsule 50 MG PO (16:42)
[2020-02-09 00:47] VITALS: BP 100/53; PULSE 79; RESP 18; TEMP 36.7; O2SAT 97
[2020-02-09] MEDS: Buprenorphine HCl 2 MG TAB.SUBL SL (00:50)
[2020-02-09] MEDS: Gabapentin 300 MG Capsule PO (00:52)
[2020-02-09] MEDS: Dicyclomine 10 MG Capsule 20 MG PO (00:52)
[2020-02-09 01:00] VITALS: PULSE 79
[2020-02-09 11:52] VITALS: BP 137/79; PULSE 90; RESP 18; TEMP 36.6; O2SAT 99
--- NOTE | 2020-02-09 11:52 | PCM.DC.SUM ---
Discharge Date and Diagnosis Date of Admission: 02/06/20 Date of Discharge: 02/09/20 - Primary Discharge Diagnosis acute opioid withdrawal - Secondary Discharge Diagnosis Chronic Problems Opiate dependence (Chronic) IVDU (intravenous drug user) (Chronic) Elevated liver enzymes (Chronic) Liver failure (Chronic) Polysubstance (including opioids) dependence, daily use (Chronic) Nicotine dependence (Chronic) Depression (Chronic) Alcohol abuse (Chronic) Hospital Course and Treatment Operations: None Procedures: None Summary of Care Provided: The patient is a 45 year old F with a past medical history as above who was admitted through the ED by police because of opiate overdose. She was found unresponsive and received 2 doses of Narcan nasally which revived her. On arrival in the ED, she was alert and oriented and to the ED physician she had used IV heroine the day of admission. She also used half a gram of IV fentanyl. She was admitted and managed for acute opioid withdrawal. She has been admitted in the past for opioid withdrawal as well as alcohol withdrawal. She was started on opioid withdrawal protocol with buprenorphine. Patient tolerated detox process and was due to be discharged on 02/09/2020 go to [facility]. However she had refused to talk to the [facility] rehab route salesperson when they came in to talk to her and was awaiting them to come in and talk to her on the day of discharge.. However before patient could be discharged to go to the [facility] rehab facility, patient signed out AGAINST MEDICAL ADVICE. She was seen and examined prior to discharge. She had no complaints plan and felt well. Review of systems otherwise negative. Labs and vitals reviewed. Home medication reviewed and reconciled. o/e: Vital Signs Temp Pulse Resp BP Pulse Ox 97.9 F 90 18 137/79 H 99 02/09/20 11:52 02/09/20 11:52 02/09/20 11:52 02/09/20 11:52 02/09/20 11:52 [] General: Alert, Oriented x3, Cooperative, No apparent distress HEENT: Atraumatic, PERRLA, EOMI, Normocephalic Oral: Moist Mucosa Neck: Supple, No JVD, Negative Carotid Bruits Lungs: Clear to auscultation, Normal air movement, No rhonchi, No wheeze, No rales Cardiovascular: Regular rate, Regular Rhythm, Normal S1, Normal S2, No murmurs Abdomen: Bowel Sounds Present, Soft, Non Tender, Non-Distended, No Hepato-splenomegaly Extremities: No clubbing, No cyanosis, No edema, Capillary Refill Less than 3 Seconds Skin: No rashes, No breakdown Musculoskeletal: No Tenderness to Palpation of Joints or Extremities Lymphatic: No Cervical, Supraclavicular, or Inguinal Adenopathy Neurological: Cranial nerves II-XII grossly intact, Neuro grossly intact, Motor Exam 5/5 strength throughout Psych/Mental Status: Normal Affect, Appropriate, Alert and oriented to time, place, person, mood and affect Patient Signed out AGAINST MEDICAL ADVICE. - Physical Exam Vitals/I&O's: Vital Signs Temp Pulse Resp BP Pulse Ox 98.1 F 79 18 100/53 L 97 02/09/20 00:47 02/09/20 01:00 02/09/20 00:47 02/09/20 00:47 02/09/20 00:47 Oxygen Delivery Method Room Air Weight: 180 lb 5.41 oz Body Mass Index (BMI) 27.4 Finger Stick Blood Glucose 223 Intake and Output for Last 24 Hours 02/07/20 02/08/20 02/09/20 23:59 23:59 23:59 Intake Total 1500 / 1700 300 / 500 200 / 200 Output Total 900 / 900 Balance 600 / 800 300 / 500 200 / 200 Home Medications: Medications to take at Discharge NK 02/06/20 Primary Care Physician: Taye Pinto DO [Primary Care Provider] - [employer] [STAFF PHYSICIAN] - As soon as possible Patient Instructions: ED Overdose Opiate Disposition: Against Medical Advice Minutes spent on discharge:: 35 Patient Condition:: Stable Medical Necessity - Tobacco Use Smoking Status: Heavy Smoker (>10/day) Tobacco Use: Cigarettes Meaningful Use Info Meaningful Use Diagnoses (Choose all that apply): None applicable Inpatient E&M: 50216 Disch Hosp
== END 2020-02-09 10:38 | disposition left against medical advice (07) | DRG 770 ==
LOC: ED 15:41 → MS3 02-08 07:38
PROVIDERS: Admitting Provider Hospitalist; Emergency Provider Emergency Medicine; PCP Family Medicine; Visit Provider Student in an Organized Health Care Education/Training Program
DX: F11.23 Opioid dependence with withdrawal (principal); T40.2X1A Poisoning by other opioids, accidental (unintentional), initial encounter; R40.20 Unspecified coma; K70.40 Alcoholic hepatic failure without coma; B19.10 Unspecified viral hepatitis B without hepatic coma; B19.20 Unspecified viral hepatitis C without hepatic coma; F10.10 Alcohol abuse, uncomplicated; Y90.9 Presence of alcohol in blood, level not specified; F32.9 Major depressive disorder, single episode, unspecified; F15.10 Other stimulant abuse, uncomplicated; F12.10 Cannabis abuse, uncomplicated; F17.210 Nicotine dependence, cigarettes, uncomplicated
CPT/HCPCS: 36415; 80053; 80307; 80320; 84703; 85025; 99218; 99285; 99406; H0012; G0378; G0480

== ENCOUNTER 2020-04-11 03:08 | Emergency (ER) | payer MEDICAID, SELFPAY ==
[2020-04-11 03:11] VITALS: BP 150/95; PULSE 84; RESP 11; TEMP 37; O2SAT 97; BMI 26.6
--- NOTE | 2020-04-11 03:24 | EKG12_ITS ---
Test Reason : CP Blood Pressure : / mmHG Vent. Rate : 078 BPM Atrial Rate : 078 BPM P-R Int : 132 ms QRS Dur : 102 ms QT Int : 396 ms P-R-T Axes : 059 062 057 degrees QTc Int : 451 ms Normal sinus rhythm Normal ECG Confirmed by HANNAH HERMOSILLO ([id number]), television news video editor CHAVA ESTES ([id number]) on 04/14/2020 2:46:54 PM Referred By: YA Confirmed By:HANNAH HERMOSILLO
--- NOTE | 2020-04-11 03:24 | RAD_ITS ---
STUDY: X-RAY CHEST REASON FOR EXAM: Female, 45 years old. lt sided cp for one day TECHNIQUE: Frontal view COMPARISON: August 25, 2019 FINDINGS: The lungs are clear and expanded. There is no demonstrated pleural abnormality. Normal size heart. Normal mediastinum and lissa. Normal visualized pulmonary arteries. Normal visualized aortic arch and descending thoracic aorta. Normal visualized thoracic spine. Normal visualized ribs, clavicles, and shoulders. There is no demonstrated abnormality of the visualized soft tissue structures of the upper abdomen. RAD/Chest 1 View (Portable) IMPRESSION: Normal x-ray examination of the chest. Electronically Signed: Alex Sanchez MD at 3:51 EDT , Service support ,
--- NOTE | 2020-04-11 03:25 | ED.DCSUM_ITS ---
History of Present Illness Chief Complaint: Chest Pain Informant: Patient Narrative: Stated last 24 hours she has had sharp left upper chest pain. Seems to be per patient that is in her chest wall. She has muscle spasms. She is felt like warm for the last few days but has not taken her temperature. She denies any cough. She denies any shortness of breath. She went to [facility] and had a chest x-ray and work-up. She stated the remainder of her and she does not know the results of her testing. She denies any history of acute coronary syndrome PE or dissection. She does have a history of hepatitis and liver failure. She is an IV drug abuser. Her last usage of heroin was yesterday afternoon. Comes in for further evaluation - Past Medical History (1) Opiate withdrawal Status: Acute (2) Alcohol abuse Status: Chronic (3) Depression Status: Chronic (4) Elevated liver enzymes Status: Chronic (5) IVDU (intravenous drug user) Status: Chronic (6) Liver failure Status: Chronic (7) Nicotine dependence Status: Chronic (8) Opiate dependence Status: Chronic (9) Polysubstance (including opioids) dependence, daily use Status: Chronic Past Medical History - Allergies and Home Meds Allergies/Adverse Reactions: Allergies hydrocodone bitartrate [From Vicodin] Allergy (Verified 04/11/20 03:16) Itching Primary Care Physician: Taye Pinto DO [Primary Care Provider] - Prior records reviewed: Yes Past Medical History: - - See problem list Surgical History: cholecystectomy, hysterectomy Smoking Status: Current every day smoker Alcohol: None Drugs: Heroin - Family History Maternal Family History: Reports: No pertinent history Paternal Family History: Reports: No pertinent history Review of Systems General: Reports: Chills. Denies: Fever, Sweats Eyes: Denies: Visual changes - bilaterally, Diplopia ENT: Denies: Rhinorrhea, Sore throat Cardiovascular: Reports: Chest pain. Denies: Palpitations Respiratory: Denies: Dyspnea, Cough, Dyspnea on exertion Gastrointestinal: Denies: Abdominal pain, Nausea, Vomiting, Diarrhea, Melena, Hematochezia Genitourinary: Denies: Dysuria, Hematuria, Frequency Musculoskeletal: Denies: Back pain, Extremity Pain Skin: Denies: Rash, Wounds Neurological: Reports: Weakness. Denies: Headache, Numbness Physical Exam Vital Signs/Narrative: Vital Signs Temp Pulse Resp BP Pulse Ox 04/11/20 03:11 98.6 F 84 11 L 150/95 H 97 General: Well nourished, Well developed, No Acute Distress Head: Normocephalic, Atraumatic Eyes: Perrl, EOMI ENT: Moist mucous membranes, No rhinorrhea Neck: Supple, Nontender Cardiovascular: Regular rate, Regular rhythm, No murmurs Respiratory: No distress, CTA bilaterally, Chest nontender Abdomen: Soft, Nontender, Nondistended, Normal bowel sounds Back: Nontender, Normal Inspection Extremities: Nontender, No edema Skin: Normal color, No rash Neurological: Alert, Oriented x3, Cranial nerves II-XII grossly intact, Normal Strength, Normal Sensation Psychological: Normal affect, Normal Mood Diagnostic/Tx/Re-eval - Medical Decision Making Patient given a dose of Norflex for what she feels is muscle spasms in her whole body. Lab work EKG and chest x-ray obtained. She took aspirin and ibuprofen today. EKG obtained shows sinus rhythm at a rate of 80 with no acute ischemia or arrhythmia. Troponin negative. CBC shows no significant acute abnormalities. BMP shows mildly low potassium. I do not feel it needs replaced. At this time chest x-ray was negative as well. I do not think she is having acute coronary syndrome PE or dissection. She is PERC negative. I feel she can follow-up as an outpatient. She will take anti-inflammatories On discharge the patient asked if she could detox from opiates again. I do not feel she is in withdrawal. This was discussed with the hospitalist however. Hospitalist and I feel that the patient can follow-up with [facility] as an outpatient. This was discussed with the patient. She will return if she goes through withdrawal however. She has used narcotics yesterday and shows no signs of withdrawal. ED Disposition - Plan for ED Patient: Diagnosis: Chest pain, Narcotic addiction Instructions: ED Chest Pain NonCardiac Referrals: Taye Pinto DO [Primary Care Provider] -
[2020-04-11 03:31] LABS: Absolute Lymphocyte Count 1.27 X10^3/uL (0.83-4.51); Basophil# 0.03 X10^3/uL; Basophil% 0.4 % (0-1); Eosinophil# 0.13 X10^3/uL; Eosinophils% 1.8 % (0-5); Hematocrit 34.6 % (37-47); Hemoglobin 11.9 g/dL (12.0-15.0); Lymphocyte # 1.27 X10^3/ul (4.0); Lymphocyte % 17.8 % (19-41); Mean Corp Hgb Conc 34.4 g/dL (32-36); Mean Corpuscular Hgb 31.3 pg (27.0-32.0); Mean Corpuscular Volume 91.1 fL (81-99); Mean Platelet Vol. 10.1 fl (6.2-12.0); Monocyte# 0.68 X10^3/uL; Monocyte% 9.5 % (0-10); NRBC Flagged by Analyzer 0 % (0-5); Neutrophil # 4.99 X10^3/uL (2.7-7.7); Neutrophil % 70.1 % (47-70); Platelet Count 151 K/mm3 (150-450); RBC Distribution Width SD 39.9 fl (35.1-43.9); White Blood Count 7.1 K/mm3 (4.4-11.0)
[2020-04-11] MEDS: Orphenadrine 60 MG/2 ML Ampul IM (03:32)
[2020-04-11 03:46] LABS: Anion Gap 5 (5-15); BUN 12 mg/dL (7-18); BUN/Creat Ratio 20.8 RATIO (10-20); Calcium,Total 8.1 mg/dL (8.5-10.1); Chloride 108 mmol/L (98-107); Creatinine, Serum 0.58 mg/dL (0.55-1.02); EST Glomerular Filtration Rate 121 mL/min (>60); Est Glom Filt Rate - Afr Amer 146 mL/min (>60); Estimated Creatinine Clearance 124.86 ml/min; Glucose 103 mg/dL (74-106); Potassium 3.4 mmol/L (3.5-5.1); Sodium Level 137 mmol/L (136-145)
--- NOTE | 2020-04-11 04:10 | ED.RN ---
pt requesting detox services at this time. made aware.
--- NOTE | 2020-04-11 04:17 | PCM.HP.STD ---
History of Present Illness Date of Admission: 04/11/20 Chief Complaint: Acute Opiate Withdrawal The patient is a 45 year old F [] Past Medical History Past Medical History (Chronic Problems): Chronic Problems Opiate dependence (Chronic) IVDU (intravenous drug user) (Chronic) Elevated liver enzymes (Chronic) Liver failure (Chronic) Polysubstance (including opioids) dependence, daily use (Chronic) Nicotine dependence (Chronic) Depression (Chronic) Alcohol abuse (Chronic) Allergies hydrocodone bitartrate [From Vicodin] Allergy (Verified 04/11/20 03:16) Itching Home Medications: Ambulatory Orders Medication Instructions Recorded NK 02/06/20 Surgical History: cholecystectomy, hysterectomy Psychiatric History: Depression, No pertinent psych hx, Prior suicide attempt NON DESTRUCTIVE TESTING ENGINEER History: No pertinent NON DESTRUCTIVE TESTING ENGINEER history Smoking Status: Current every day smoker Alcohol: None Drugs: Heroin - *Family History Maternal History Items: No pertinent history Paternal History Items: No pertinent history Patient Problems: Active and Suspected Problems (This Medical Record has been edited. Action required.) Chest pain (Acute) - Physical Exam Vitals/I&O's: Vital Signs Temp Pulse Resp BP Pulse Ox 98.6 F 84 11 L 150/95 H 97 04/11/20 03:11 04/11/20 03:11 04/11/20 03:11 04/11/20 03:11 04/11/20 03:11 Oxygen Delivery Method Room Air Weight: 175 lb 0.752 oz Body Mass Index (BMI) 26.6 Finger Stick Blood Glucose 223 Laboratory Results 04/11/20 03:18: WBC 7.1, RBC 3.80 L, Hgb 11.9 L, Hct 34.6 L, MCV 91.1, MCH 31.3, MCHC 34.4, RDW Std Deviation 39.9, RDW Coeff of Katie 12.0, Plt Count 151, MPV 10.1, Immature Gran % (Auto) 0.400, Neut % (Auto) 70.1 H, Lymph % (Auto) 17.8 L, [place] % (Auto) 9.5, Eos % (Auto) 1.8, Baso % (Auto) 0.4, Absolute Neuts (auto) 5.0, Absolute Lymphs (auto) 1.27, Nucleated RBC % 0 04/11/20 03:18: Sodium 137, Potassium 3.4 L, Chloride 108 H, Carbon Dioxide 24.0, Anion Gap 5, BUN 12, Creatinine 0.58, Estim Creat Clear Calc 124.86, Est GFR (MDRD) Af Amer 146, Est GFR (MDRD) Non-Af 121, BUN/Creatinine Ratio 20.8 H, Glucose 103, Calcium 8.1 L, Troponin I < 0.015 Assessment/Plan All Active Problems (This Medical Record has been edited. Action required.) Chest pain (Acute) Opiate withdrawal (Acute)
[2020-04-11 04:41] VITALS: BP 137/84; PULSE 86; RESP 17; O2SAT 98
--- NOTE | 2020-04-11 04:42 | ED.RN ---
site observed no reaction noted by this rn. pt d/c.
== END 2020-04-11 04:42 | disposition home or self-care (01) ==
PROVIDERS: Emergency Provider Emergency Medicine; PCP Family Medicine
DX: R07.9 Chest pain, unspecified (principal); F11.20 Opioid dependence, uncomplicated; F10.10 Alcohol abuse, uncomplicated; M62.838 Other muscle spasm; K72.90 Hepatic failure, unspecified without coma; R74.8 Abnormal levels of other serum enzymes; F17.200 Nicotine dependence, unspecified, uncomplicated; F32.9 Major depressive disorder, single episode, unspecified; Z86.19 Personal history of other infectious and parasitic diseases; Z90.710 Acquired absence of both cervix and uterus; Z90.49 Acquired absence of other specified parts of digestive tract
CPT/HCPCS: 71045; 80048; 84484; 85025; 93005; 96372; 99284; A4216

== ENCOUNTER 2020-04-12 16:24 | Emergency (ER) | payer MEDICAID, SELFPAY ==
[2020-04-11 03:11] VITALS: BMI 26.6
[2020-04-12] VITALS (8 sets, daily range): BP systolic 121–151; BP diastolic 66–100; PULSE 75–95; RESP 19–28; TEMP 36.4; O2SAT 95–100; BMI 29.5
--- NOTE | 2020-04-12 16:29 | EKG12_ITS ---
Test Reason : CP Blood Pressure : / mmHG Vent. Rate : 080 BPM Atrial Rate : 080 BPM P-R Int : 126 ms QRS Dur : 104 ms QT Int : 382 ms P-R-T Axes : 085 065 065 degrees QTc Int : 440 ms Normal sinus rhythm Normal ECG Confirmed by KAROLINA IRELAND, RONALD ([id number]), editorial manager DALILA RICE ([id number]) on 04/13/2020 9:05:56 AM Referred By: AMY Confirmed By:RONALD TURCIOS MD
--- NOTE | 2020-04-12 16:33 | ED.VIS.GEN ---
History of Present Illness Chief Complaint: Chest Pain Informant: Patient Onset: Days Context: Gradual Onset Timing: Continuous Current Severity: Severe Maximum Severity: Severe Narrative: The patient is a 45-year-old female with medical history significant for alcohol abuse, heroin abuse and dependence, and hepatitis that presents to the emergency department chest pain. Patient states she is been having chest pain for the past 4 days. She describes a sharp, stabbing sensation in her central chest that radiates everywhere. The patient states that she stopped using yesterday. She is been mildly nauseated. She denies fever chills. She denies having history of heart disease. The patient was actually seen here on the and evaluated for her chest pain. Her work-up was rather unremarkable. She was discharged home to follow-up with outpatient detox services. She states she has not followed up yet. Prior similar symptoms: Yes Recent Illness/Hospitalization: Yes Past Medical History - Allergies and Home Meds Allergies/Adverse Reactions: Allergies hydrocodone bitartrate [From Vicodin] Allergy (Verified 04/11/20 03:16) Itching Primary Care Physician: Taye Pinto DO [Primary Care Provider] - Prior records reviewed: Yes Past Medical History: - - Hepatitis, drug dependence Surgical History: cholecystectomy, hysterectomy Smoking Status: Current every day smoker - Family History Maternal Family History: Reports: No pertinent history Paternal Family History: Reports: No pertinent history Review of Systems General: Denies: Chills, Fever, Sweats Eyes: Denies: Visual changes - bilaterally, Diplopia ENT: Denies: Rhinorrhea, Sore throat Cardiovascular: Reports: Chest pain. Denies: Palpitations Respiratory: Denies: Dyspnea, Cough, Dyspnea on exertion Gastrointestinal: Reports: Nausea. Denies: Abdominal pain, Vomiting, Diarrhea, Melena, Hematochezia Genitourinary: Denies: Dysuria, Hematuria, Frequency Musculoskeletal: Denies: Back pain, Extremity Pain Skin: Denies: Rash, Wounds Neurological: Denies: Headache, Weakness, Numbness Physical Exam Vital Signs/Narrative: Vital Signs Temp Pulse Resp BP Pulse Ox 04/12/20 16:26 97.5 F L 78 20 H 148/80 H 98 Inital Vital Signs reviewed: Yes General: Well nourished, Well developed, No Acute Distress Head: Normocephalic, Atraumatic Eyes: Perrl, EOMI ENT: Moist mucous membranes, No rhinorrhea Neck: Supple, Nontender Cardiovascular: Regular rate, Regular rhythm, No murmurs Respiratory: No distress, CTA bilaterally, Chest nontender Abdomen: Soft, Nontender, Nondistended, Normal bowel sounds Back: Nontender, Normal Inspection Extremities: Nontender, No edema Skin: Normal color, No rash Neurological: Alert, Oriented x3, Cranial nerves II-XII grossly intact, Normal Strength, Normal Sensation Psychological: Normal affect, Normal Mood Diagnostic/Tx/Re-eval Clinical Impression(s) from Imaging Studies Chest X-Ray 04/12/20 16:50 IMPRESSION: Left basilar alveolar disease and atelectasis. Electronically Signed: Hasmukh Felix MD at 17:05 EDT Tel , Service support , Chest CTA 04/12/20 17:24 IMPRESSION: No pulmonary embolus. Confluent ill-defined soft tissue attenuation is noted extending throughout the mediastinum and lissa, not present on prior study. This does not have the appearance of a single distinct mass or adenopathy. Differential could include entities such as mediastinitis (acute or fibrosing) and lymphoma. Mild multifocal right lower lobe and left upper lobe pneumonia. More confluent left lower lobe pneumonia. Left pleural effusion. Electronically Signed: Hasmukh Felix MD at 18:51 EDT Tel , Service support , ADDENDUM: 04/12/20 191 IMPRESSION: No pulmonary embolus. Confluent ill-defined soft tissue attenuation is noted extending throughout the mediastinum and lissa, not present on prior study. This does not have the appearance of a single distinct mass or adenopathy. Differential could include entities such as mediastinitis (acute or fibrosing) and lymphoma. Mild multifocal right lower lobe and left upper lobe pneumonia. More confluent left lower lobe pneumonia. Left pleural effusion. N.B. : The above information has been verbally conveyed by Hasmukh Felix MD to Linus Lagos MD, on 04/12/2020 19:04:15 (ET). Electronically Signed: Hasmukh Felix MD at 18:51 EDT Tel , Service support , Abnormal Lab Results 04/12/20 04/12/20 04/12/20 16:40 16:40 16:40 WBC 13.0 H RBC 3.86 L Hgb 12.1 Hct 35.3 L MCV 91.5 MCH 31.3 MCHC 34.3 RDW Std Deviation 41.1 RDW Coeff of Katie 12.3 Plt Count 134 L MPV 9.9 Immature Gran % (Auto) 0.400 Neut % (Auto) 90.9 H Lymph % (Auto) 3.9 L Comanche % (Auto) 4.1 Eos % (Auto) 0.2 Baso % (Auto) 0.5 Absolute Neuts (auto) 11.8 H Absolute Lymphs (auto) 0.51 L Nucleated RBC % 0 Differential Comment SEE COMMENT Platelet Estimate SLT DEC RBC Morphology N CHROM Anisocytosis RARE Macrocytosis RARE D-Dimer Quant (PE/DVT) 1.97 H* Sodium 137 Potassium 3.0 L Chloride 106 Carbon Dioxide 25.0 Anion Gap 6 BUN 12 Creatinine 0.73 Estim Creat Clear Calc 88.49 Est GFR (MDRD) Af Amer 112 Est GFR (MDRD) Non-Af 93 BUN/Creatinine Ratio 16.5 Glucose 206 H Calcium 8.0 L Total Bilirubin 1.00 AST 19 ALT 24 Alkaline Phosphatase 172 H Troponin I < 0.015 Total Protein 7.1 Albumin 2.6 L Globulin 4.5 H Albumin/Globulin Ratio 0.6 L - Medical Decision Making The patient presents with recurrent chest pain. She does have history of IV drug abuse. She is markedly tender palpation along the chest. EKG was obtained which was sinus rhythm without acute ischemia. Screening labs do show leukocytosis of 13,000. She is also mildly hypokalemic which was replaced orally. I did obtain a d-dimer which was elevated. With this, the patient underwent CTA of chest. This does show patchy bilateral upper lobe infiltrates, consolidation in the left lower lobe, and atypical mediastinal mass which is concerning for mediastinitis. With her history of IV drug abuse, she was covered with broad-spectrum antibiotics. I do feel the patient is going to require tertiary care facility. She has been admitted at [facility] before and is requesting to go there. I have talked with the transfer line. Impression 1. Chest pain 2. Multifocal pneumonia 3. Mediastinitis 4. History of IV drug abuse ED Disposition - Plan for ED Patient: Referrals: Taye Pinto DO [Primary Care Provider] -
[2020-04-12 16:48] LABS: Absolute Lymphocyte Count 0.51 X10^3/uL (0.83-4.51); Absolute Neutrophil Count 11.8 X10^3/uL (2.0-7.7); Basophil# 0.07 X10^3/uL; Basophil% 0.5 % (0-1); Eosinophil# 0.03 X10^3/uL; Eosinophils% 0.2 % (0-5); Hematocrit 35.3 % (37-47); Hemoglobin 12.1 g/dL (12.0-15.0); Lymphocyte # 0.51 X10^3/ul (4.0); Lymphocyte % 3.9 % (19-41); Mean Corp Hgb Conc 34.3 g/dL (32-36); Mean Corpuscular Hgb 31.3 pg (27.0-32.0); Mean Corpuscular Volume 91.5 fL (81-99); Mean Platelet Vol. 9.9 fl (6.2-12.0); Monocyte# 0.54 X10^3/uL; Monocyte% 4.1 % (0-10); NRBC Flagged by Analyzer 0 % (0-5); Neutrophil # 11.84 X10^3/uL (2.7-7.7); Neutrophil % 90.9 % (47-70); POSITIVE DIFFERENTIAL YES; POSITIVE MORPHOLOGY YES; Platelet Count 134 K/mm3 (150-450); RBC Distribution Width CV 12.3 % (11.6-14.6); RBC Distribution Width SD 41.1 fl (35.1-43.9); Red Blood Count 3.86 M/mm3 (4.2-5.4)
--- NOTE | 2020-04-12 16:50 | RAD_ITS ---
STUDY: X-RAY CHEST REASON FOR EXAM: Female, 45 years old. Chest pain. TECHNIQUE: Frontal and lateral views of the chest. COMPARISON: 04/11/2020 FINDINGS: Left basilar alveolar disease and atelectasis. There is no demonstrated pleural abnormality. Normal size heart. Normal mediastinum and lissa. Normal visualized pulmonary arteries. Normal visualized aortic arch and descending thoracic aorta. Normal visualized thoracic spine. Normal visualized ribs, clavicles, and shoulders. Cholecystectomy clips. RAD/Chest PA and Lateral IMPRESSION: Left basilar alveolar disease and atelectasis. Electronically Signed: Hasmukh Felix MD at 17:05 EDT Tel , Service support ,
[2020-04-12 16:51] LABS: Differential Indicated SCAN CRITERIA MET
[2020-04-12] MEDS: 0.9% Normal Saline 1,000 ML 1000 ML IV (16:55)
[2020-04-12] MEDS: Ketorolac 15 MG/ML Vial IV (16:55)
[2020-04-12 17:07] LABS: ALB/GLOB Ratio 0.6 RATIO (0.9-2.4); AST(SGOT) 19 U/L (15-37); Alanine Aminotransfer ALT/SGPT 24 U/L (13-56); Albumin, Serum 2.6 g/dL (3.2-5.0); Alkaline Phosphatase 172 U/L (45-117); Anion Gap 6 (5-15); BUN 12 mg/dL (7-18); BUN/Creat Ratio 16.5 RATIO (10-20); Chloride 106 mmol/L (98-107); Creatinine, Serum 0.73 mg/dL (0.55-1.02); EST Glomerular Filtration Rate 93 mL/min (>60); Est Glom Filt Rate - Afr Amer 112 mL/min (>60); Estimated Creatinine Clearance 88.49 ml/min; Globulin 4.5 g/dL (2.2-4.2); Glucose 206 mg/dL (74-106); Protein, Total 7.1 g/dL (6.4-8.2); Sodium Level 137 mmol/L (136-145)
[2020-04-12 17:17] LABS: D-Dimer Quantitative (DVT/PE) 1.97 FEU/ug/m (0.27-0.49)
--- NOTE | 2020-04-12 17:24 | CT_ITS ---
We are attempting to reach an attending provider to discuss findings. An addendum with communication details will be sent when the communication is complete. STUDY: CTA CHEST REASON FOR EXAM: Female, 45 years old. PE? CHEST PAIN. POLYSUBSTANCE ABUSE RADIATION DOSAGE (If Supplied By Facility): CTDIvol = ( 11.75 ) mGy, DLP = ( 373.92 ) mGycm TECHNIQUE: The examination was performed with the intravenous administration of 100ML ISOVUE. Post-processing of the angiographic images was performed, with multiplanar reformation and 3D reconstruction. Individualized dose optimization techniques were used for this CT. COMPARISON: 05/07/2017 FINDINGS: Normal enhancement of the main pulmonary artery and right and left pulmonary arteries. Normal enhancement of the bilateral peripheral pulmonary arteries. There is no demonstrated pulmonary embolism. Normal thoracic aorta and visualized great vessels. There is no demonstrated aortic dissection. Normal heart and pericardium. Confluent ill-defined soft tissue attenuation is noted extending throughout the mediastinum and lissa, not present on prior study. This does not have the appearance of a single distinct mass or adenopathy. Of note, the great vessels remain patent. Normal visualized trachea and bronchi. Mild multifocal right lower lobe and left upper lobe pneumonia. More confluent left lower lobe pneumonia with associated atelectasis. Left pleural effusion. Normal pleura. Normal chest wall structures. Normal osseous structures. Normal visualized upper abdomen. CT/CTA Chest W/WO Contrast IMPRESSION: No pulmonary embolus. Confluent ill-defined soft tissue attenuation is noted extending throughout the mediastinum and lissa, not present on prior study. This does not have the appearance of a single distinct mass or adenopathy. Differential could include entities such as mediastinitis (acute or fibrosing) and lymphoma. Mild multifocal right lower lobe and left upper lobe pneumonia. More confluent left lower lobe pneumonia. Left pleural effusion. Electronically Signed: Hasmukh Felix MD at 18:51 EDT Tel , Service support ,
[2020-04-12 17:39] LABS: Platelet Estimate SLT DEC (ADEQ); Red Cell Morphology N CHROM NORMAL (NORM C&C)
[2020-04-12 17:40] LABS: Anisocytosis RARE; Macrocytosis RARE
[2020-04-12] MEDS: Morphine 4 MG/ML Syringe IV ×2 (19:17→20:21)
[2020-04-12 20:14] LABS: Lactic Acid 3.5 mmol/L (0.4-1.9)
[2020-04-12] MEDS: HYDROmorphone 0.5 MG/0.5 ML SYRINGE IV (21:32)
[2020-04-12 23:32] LABS: Reflex Lactate? Y
[2020-04-12] MEDS: fentaNYL 100 MCG/2 ML Ampul 50 MCG IV (23:40)
[2020-04-12] MEDS: LORazepam 2 MG/ML Syringe 1 MG IV (23:40)
--- NOTE | 2020-04-13 11:02 | ED.RN ---
MICROBIOLOGY CALLED WITH POSITIVE BLOOD CULTURES. PT WAS TRANSFERRED TO [facility]. [facility] CALLED AND TALKED TO ED CHARGE NURSE WHERE PT IS CURRENTLY BEING HELD AND INFORMED OF RESULTS.
--- NOTE | 2020-04-13 13:18 | ED.RN ---
microbiology called to inform that pt's blood culture was positive for mrsa. [facility] called and pt's nurse cesar was informed of results.
== END 2020-04-12 23:50 | disposition short-term general hospital (02) ==
PROVIDERS: Emergency Provider Emergency Medicine; PCP Family Medicine
DX: J18.9 Pneumonia, unspecified organism (principal); R07.9 Chest pain, unspecified; J98.51 Mediastinitis; F11.20 Opioid dependence, uncomplicated; F10.10 Alcohol abuse, uncomplicated; F17.200 Nicotine dependence, unspecified, uncomplicated; Z86.19 Personal history of other infectious and parasitic diseases
CPT/HCPCS: 71046; 71275; 80053; 83605; 84484; 85025; 85379; 87040; 87077; 87149; 87186; 87635; 93005; 96361; 96365; 96366; 96367; 96375; 96376; 99285; G2023; J7030; J7050; Q9967; A4216; U0003

== ENCOUNTER 2020-05-04 00:43 | Emergency (ER) | payer MEDICAID, SELFPAY ==
[2020-04-12 16:26] VITALS: BMI 29.5
[2020-05-04 00:44] VITALS: BP 119/78; PULSE 103; RESP 18; TEMP 36.6; O2SAT 98; BMI 26.9
--- NOTE | 2020-05-04 00:49 | ED.RN ---
PT STATES SHE WAS RELEASED FROM [facility] INTO A CUSTODIAL WHERE SHE WAS TO CONTINUE VANCOMYCIN AND OTHER MEDS. SHE SIGNED OUT AMA D/T POOR TREATMENT. PT HASN'T HAD SUBOXONE SINCE SHE LEFT THE CUSTODIAL. PT IS WORKING WITH [employer], SHE IS HOMELESS. PT ADMITS TO IV DRUG USE.
--- NOTE | 2020-05-04 03:13 | ED.DCSUM_ITS ---
- ER Visit Summary Date of Service: 05/04/20 Chief Complaint: Abnormal laboratory studies History of Present Illness: The patient is a 45 F who comes in with a complaint of abnormal laboratory studies. She states that somebody from [facility] called her emergency contact today looking for her. Apparently she had abnormal laboratory studies and needed to return to [facility]. The emergency contact was not sure what was abnormal. He states that the patient is homeless and he found her today and they came in here. The patient has a history of IV drug abuse. She was admitted at the end of March at [facility] for thoracic spine osteomyelitis, MRSA bacteremia, vertebral abscess and mediastinal abscess. It appears that she did not have any surgeries. She was discharged on April 30 with instructions to continue vancomycin through a PICC line until into May. She went to a jail. On May 01 she went to another hospital telling them that she did not want the PICC line anymore. She had this PICC line removed at [facility] and came back to the [facility]. She states that she is now taking oral clindamycin instead of the IV vancomycin. She denies having fevers. She feels weak and achy all over. She states that she has not used any IV drugs recently. She has not taken her Suboxone since she left the jail. Physical Examination: Vital signs reviewed. HEENT exam unremarkable. Heart is tachycardic and regular rhythm without murmurs. Lungs are clear to auscultation. Abdomen is soft and nontender. Extremities reveal no edema. Skin exam shows evidence of previous IV drug use. Neurologic exam normal. She moves all extremities equally. Her GCS is 15. Test Results: CBC and basic are pending Emergency Department Course and Treatment: I called the [facility] transfer line. They were able to see that the patient was called by the infectious disease clinic. However, they are not sure what the abnormal lab results were and I cannot find them in the system. This is a very complex patient who likely still needs for IV vancomycin. The suggestion from the transfer line was to wait until the morning when the clinic opens and we can find out some more information from the staff there. The patient is hemodynamically stable. She is afebrile. I will obtain basic laboratory studies. I will sign this patient out to the oncoming physician to contact to the infectious disease clinic at [facility] for further disposition Disposition: Pending Impression: Medication noncompliance, abnormal laboratory studies from outside facility This note was generated with [employer] dictation software. It may contain incorrect words, spelling, and punctuation that were not noted in review of the chart prior to signing ED Disposition - Plan for ED Patient: Referrals: Taye Pinto DO [Primary Care Provider] -
[2020-05-04 03:15] VITALS: BP 112/64; PULSE 84; RESP 16; O2SAT 97
[2020-05-04 03:54] LABS: Anion Gap 6 (5-15); BUN 13 mg/dL (7-18); BUN/Creat Ratio 21.1 RATIO (10-20); Calcium,Total 8.3 mg/dL (8.5-10.1); Chloride 101 mmol/L (98-107); Creatinine, Serum 0.62 mg/dL (0.55-1.02); EST Glomerular Filtration Rate 112 mL/min (>60); Est Glom Filt Rate - Afr Amer 135 mL/min (>60); Estimated Creatinine Clearance 116.81 ml/min; Glucose 90 mg/dL (74-106); Potassium 3.3 mmol/L (3.5-5.1); Sodium Level 136 mmol/L (136-145)
[2020-05-04 04:00] LABS: Basophil# 0.04 X10^3/uL; Eosinophil# 0.29 X10^3/uL; Hematocrit 29.6 % (37-47); Hemoglobin 9.8 g/dL (12.0-15.0); Lymphocyte % 33.7 % (19-41); Mean Corp Hgb Conc 33.1 g/dL (32-36); Mean Corpuscular Hgb 30.9 pg (27.0-32.0); Mean Corpuscular Volume 93.4 fL (81-99); Monocyte% 9.6 % (0-10); NRBC Flagged by Analyzer 0 % (0-5); Neutrophil # 2.02 X10^3/uL (2.7-7.7); Neutrophil % 48.5 % (47-70); Platelet Count 230 K/mm3 (150-450); RBC Distribution Width CV 13.1 % (11.6-14.6); RBC Distribution Width SD 44.9 fl (35.1-43.9); Red Blood Count 3.17 M/mm3 (4.2-5.4); White Blood Count 4.2 K/mm3 (4.4-11.0)
[2020-05-04 05:00] VITALS: RESP 18
--- NOTE | 2020-05-04 08:16 | ED.VISSUMM ---
- ER Visit Summary Date of Service: 05/04/20 Chief Complaint: [Addendum to initial dictation by Dr. Cardenas] History of Present Illness: The patient is a 45 F [who presented at the request of her infectious disease specialist out of [place] for possibly abnormal labs. Patient apparently had a complicated history of osteomyelitis of her spine and mediastinal abscess for which she was admitted and treated in [place] and subsequently patient was given a PICC line and transferred to a snf facility which she left. Patient then was admitted to another hospital and left AMA. Her work-up in the department was essentially unremarkable but there was no way to know what the lab abnormalities that were of concern to infectious disease without calling this morning at 8 AM to find out. Evening physician turned over care to me to discuss with her infectious disease specialist to their concerns. Nursing staff did call the office and they were told that there were no lab abnormalities only that they wanted to make sure the patient's PICC line had been removed which patient has had already removed. If there were no further concerns I was told patient could be discharged to home by the initial evaluating physician.] Physical Examination: [See primary physician's dictation] Test Results: [The primary physician's dictation] Emergency Department Course and Treatment: [See primary physician's dictation] Treatment Plan: [] Disposition: [Discharged home in stable condition. Patient advised to continue with her current medications. Patient to follow-up with her infectious disease specialist as instructed.] Impression: [Concern for abnormal labs-none Concern for PICC line removal-removal had already taken place.] This note was generated with [employer] dictation software. It may contain incorrect words, spelling, and punctuation that were not noted in review of the chart prior to signing ED Disposition - Plan for ED Patient: Referrals: Taye Pinto DO [Primary Care Provider] -
--- NOTE | 2020-05-04 08:21 | ED.DEP ---
ED Disposition - Plan for ED Patient: Instructions: ED Screening Exam Medical Nonurgent Referrals: Taye Pinto DO [Primary Care Provider] - 5-7 Days
[2020-05-04 09:51] VITALS: BP 102/60; O2SAT 100
== END 2020-05-04 09:52 | disposition home or self-care (01) ==
LOC: ED 02:17
PROVIDERS: Emergency Provider Emergency Medicine; PCP Family Medicine
DX: Z91.14 Patient's other noncompliance with medication regimen (principal); Z86.14 Personal history of Methicillin resistant Staphylococcus aureus infection; Z72.0 Tobacco use
CPT/HCPCS: 36415; 80048; 85025; 99282

== ENCOUNTER 2021-01-18 15:28 | Emergency (ER) | payer MEDICAID, SELFPAY ==
[2020-12-28 08:22] VITALS: BMI 25.8
[2021-01-18] VITALS (14 sets, daily range): BP systolic 121–154; BP diastolic 60–72; PULSE 79–102; RESP 17–24; TEMP 36.6–39.4; O2SAT 18–100; BMI 26.6
--- NOTE | 2021-01-18 15:50 | MRI_ITS ---
STUDY: MRI LUMBAR SPINE WITH AND WITHOUT CONTRAST REASON FOR EXAM: Female, 45 years old. IV drug use, neurologic deficit as previously desc TECHNIQUE: Standardized fat and water weighted pulse sequences were obtained in the sagittal and axial planes. iv dotarem 15 cc was administered for the contrast portion of the examination. COMPARISON: None FINDINGS: T12-L1: Normal endplates. Normal disc height, hydration and morphology. Normal bilateral facet joints. Normal central canal and bilateral lateral recesses. Normal bilateral intervertebral neural foramina. Normal lumbar lordosis. There is moderate to severe levo scoliosis. Normal conus medullaris that terminates at T12-L1 L1-2: Normal endplates. Narrowed disc space with desiccation of the disc and minor annular bulge.. Normal bilateral facet joints. Normal central canal and bilateral lateral recesses. Normal bilateral intervertebral neural foramina. L2-3: Normal endplates. Normal disc height, hydration and mild annular bulge.. Normal bilateral facet joints. Normal central canal and bilateral lateral recesses. Mild bilateral neuroforaminal encroachment. L3-4: Degenerative endplate changes.. Normal disc height, hydration and minor annular bulge with small right posterolateral/foraminal disc protrusion.. Bilateral facet arthropathy greater on the right. Normal central canal and bilateral lateral recesses. Mild left neuroforaminal stenosis and moderate to severe narrowing on the right L4-5: Normal endplates. Normal disc height, desiccation and minor bulging annulus. Bilateral facet arthropathy and thickening of ligamenta flava greater on the left. Normal central canal. Moderate left lateral recess and neuroforaminal stenosis with mild narrowing of the right nerve root foramen L5-S1: Normal endplates. Normal disc height, hydration and morphology. Facet arthropathy and mild thickening of ligamenta flava on the left.. Normal central canal and bilateral lateral recesses. Normal bilateral intervertebral neural foramina. Normal visualized sacral ala. Normal visualized paraspinous soft tissue structures. No abnormal enhancement following contrast administration. MRI/Spine Lumbar W/WO Contrast IMPRESSION: Scoliosis and degenerative changes. Multilevel spinal stenosis secondary to disc disease and bony hypertrophy most severe at L3-4 and L4-5. Findings as above Electronically Signed: Dmitri Genao MD at 21:44 EDT , Service support ,
--- NOTE | 2021-01-18 15:50 | MRI_ITS ---
STUDY: MRI CERVICAL SPINE WITH AND WITHOUT CONTRAST REASON FOR EXAM: Female, 45 years old. Areflexia, no rectal tone, bilateral Babinski and TECHNIQUE: Standardized fat and water weighted pulse sequences were obtained in the sagittal and axial following administration of 15cc iv dotarem. COMPARISON: None FINDINGS: Normal foramen magnum and brainstem-cervical cord junction. Normal craniovertebral junction. Normal anterior atlantoaxial articulation. Normal odontoid process. Decreased cervical lordosis. Normal vertebral bodies and posterior osseous elements. C2-3: Normal endplates. Normal disc height, signal and morphology. Normal central canal and intervertebral neural foramina. C3-4: Grade 1 spondylolisthesis. Narrowed disc space and minor bulging disc osteophyte complex.. Normal central canal and intervertebral neural foramina. C4-5: Normal endplates. Normal disc height, signal and minor bulging disc osteophyte complex.. Mild narrowing of the central canal. Moderate bilateral neuroforaminal stenosis secondary to bony hypertrophy. C5-6: Normal endplates. Narrowed disc space and minor bulging disc osteophyte complex with small central disc protrusion.. Narrowing of the central canal and impingement upon the cord.. Severe right neuroforaminal stenosis and moderate narrowing on the left C6-7: Narrowed disc space with minor bulging disc osteophyte complex and tiny central disc protrusion. Mild narrowing of the central canal. Mild to moderate right neuroforaminal stenosis C7-T1: Normal endplates. Normal disc height, signal and morphology. Normal central canal and intervertebral neural foramina. Normal cervical cord. No abnormal enhancement following contrast administration. Normal visualized soft tissue structures. MRI/Spine Cervical W/WO Contrast IMPRESSION: No evidence for acute fracture or other significant bony pathology.. Moderate spondylosis and multilevel spinal stenosis secondary to disc disease and bony hypertrophy. No significant cord compression or focal cord lesions. Electronically Signed: Dmitri Genao MD at 21:35 EDT , Service support ,
--- NOTE | 2021-01-18 15:50 | MRI_ITS ---
STUDY: MRI THORACIC SPINE WITH AND WITHOUT CONTRAST REASON FOR EXAM: Female, 45 years old. No pinprick until T4 dermatome TECHNIQUE: IV 15 cc dotarem was administered for the contrast portion of the examination. COMPARISON: None. FINDINGS: Normal kyphosis of the thoracic spine. There is no substantial scoliosis. T1-2, T2-3, T3-4, T4-5, T5-6, T6-7, T7-8, T8-9, T9-10, T10-11, T11-12: Normal endplates. Mild multilevel disc degeneration but no significant disc protrusion. Normal central canal and intervertebral neural foramina at the corresponding levels. Normal visualized thoracic cord. Normal conus medullaris that terminates at T12-L1 The soft tissue structures are unremarkable. There is no enhancing abnormality. MRI/Spine Thoracic W/WO Contrast IMPRESSION: No evidence for acute fracture or other significant bony pathology. Mild multilevel disc degeneration but no focal disc protrusion or spinal stenosis Normal thoracic cord Electronically Signed: Dmitri Genao MD at 21:38 EDT , Service support ,
--- NOTE | 2021-01-18 15:51 | EKG12_ITS ---
Test Reason : Blood Pressure : / mmHG Vent. Rate : 092 BPM Atrial Rate : 092 BPM P-R Int : 116 ms QRS Dur : 096 ms QT Int : 372 ms P-R-T Axes : 072 065 063 degrees QTc Int : 460 ms Normal sinus rhythm Normal ECG Confirmed by BRAIN IRELAND, SANDER ([id number]), senior technical editor DALILA RICE ([id number]) on 01/20/2021 10:03:39 AM Referred By: SLICK Confirmed By:SANDER DE LA PAZ MD
--- NOTE | 2021-01-18 15:58 | EX.ED.DYSGE1 ---
HPI History of Present Illness Chief Complaint: Lower Extremity Injury Informant: patient Onset/Context/Timing Onset: Yesterday Context: Sudden Onset Timing: Continuous Quality: No feeling in the legs and cannot move her legs Location: Lower extremity Current Severity: Severe Worsened by: Unknown Relieved by: Nothing Associated Symptoms Associated Symptoms: Severe neck pain and low back pain Narrative Narrative: Patient is a 45-year-old woman who has history of alcohol and drug dependency. She does admit to IV drug use. She does admit to sweats. She denies weight gain or weight loss. She states since last evening she has had no sensation in her legs and she cannot move her legs. She does not recall the last time she had a bowel movement or urinated. She reports severe neck pain and also reports low back pain. She denies cough but does complain of shortness of breath. She denies tingling of her face or hands. She denies chest pain. She does have a cough which is nonproductive. She denies nausea, vomiting or diarrhea. She denies rash. Prior similar symptoms: No Recent Illness/Hospitalization: Yes [facility] Medical History Alcohol abuse Asthma Depression Hepatitis IVDU (intravenous drug user) Opiate dependence Polysubstance (including opioids) dependence, daily use Smoker Home Medications NK 02/06/20 [History Last Taken Unknown] Allergy/AdvReac Type Severity Reaction Status Date / Time hydrocodone bitartrate Allergy Itching Verified 12/28/20 08:21 [From Vicodin] Surgical History (Updated 01/18/21 @ 16:51 by Alana Mejia) History of cholecystectomy Social History Smoking Status: Current every day smoker ROS ROS ED Review of Systems ROS Unobtainable: due to mental condition Constitutional Constitutional ED: Reports sweats; Denies chills, fever(s) or subjective Eyes Eyes: Denies blurry vision, change in vision or diplopia ENT ENT ED: Denies ear pain, rhinorrhea or sore throat Cardiovascular Cardiovascular: Denies chest pain, orthopnea, palpitations or racing heartbeat Respiratory/Chest Respiratory/Chest: Reports cough and dyspnea; Denies dyspnea on exertion, orthopnea or sputum Gastrointestinal Gastrointestinal: Denies abdominal pain, constipation, diarrhea, nausea or vomiting Genitourinary Genitourinary ED: Denies dysuria, hematuria or urinary frequency Musculoskeletal Musculoskeletal: Denies arthralgias, myalgias or neck pain Integumentary Denies abscess or rash Neurologic Neurologic: Reports paresthesias, weakness and other Details: Patient states she is not able to move her legs. She denies loss of bowel control or inability to urinate. ; Denies headache(s) Psychiatric Psychiatric: Reports depression; Denies suicidal thoughts Endocrine Endocrinology: Denies polydipsia, polyphagia or polyuria Allergic/Immunologic Allergic/Immunologic ED: Denies mouth swelling, tongue swelling or urticaria EXAM Physical Exam Const Vital Signs: 01/18/21 15:29 01/18/21 16:47 01/18/21 16:56 Temperature 97.8 F 102.8 F H 103 F H Temperature Source Temporal Core Core Pulse Rate 98 91 Respiratory Rate 24 H 23 H Blood Pressure 121/61 H 154/72 H Blood Pressure Mean 81 99 Pulse Ox 100 98 Oxygen Delivery Method Room Air Room Air 01/18/21 17:15 01/18/21 17:32 01/18/21 17:34 Temperature 101.8 F H 103 F H Temperature Source Oral Core Pulse Rate 89 102 H Respiratory Rate 17 18 Blood Pressure 147/72 H 153/70 H Blood Pressure Mean 97 97 Pulse Ox 97 97 Oxygen Delivery Method Room Air Room Air 01/18/21 18:00 01/18/21 19:12 01/18/21 19:57 Temperature Temperature Source Pulse Rate 90 84 80 Respiratory Rate 22 H 18 18 Blood Pressure 144/71 H 132/68 H 132/60 H Blood Pressure Mean 95 89 84 Pulse Ox 95 94 93 Oxygen Delivery Method Room Air Room Air Room Air 01/18/21 21:00 01/18/21 21:52 Temperature 101 F H Temperature Source Core Pulse Rate 86 Respiratory Rate 18 Blood Pressure 132/67 H Blood Pressure Mean 88 Pulse Ox 18 97 Oxygen Delivery Method Room Air Room Air Positive well nourished and well developed General Appearance ED: well developed and other Patient does not appear well. She is tachypneic. ; Negative for cyanotic or diaphoretic HEENT Reports TM's clear and dry mucous membranes HEENT Narrative: Negative Chvostek sign. Negative for trauma or tenderness Tympanic Membrane ED: Yes TM's clear Mouth ED: Yes dry mucous membranes Mouth: dry mucous membranes Eyes PERRL and EOMs intact bilaterally General Eye ED: Yes other Other Details: There is no nystagmus. ; Negative for pale conjunctiva or scleral icterus Neck no lymphadenopathy and no JVD Neck Narrative: Patient has pain to percussion over the spinous process of C6 and 7. Patient complains of pain with passive flexion extension. General: other; Negative for tenderness Lymph Lymphatic Narrative: There is no cervical lymphadenopathy. Trachea is midline. Chest Wall inspection of chest normal and palpation of chest normal Resp No normal respiratory effort and clear to auscultation bilaterally Auscultation: diminished lung sounds Cardio regular rate, regular rhythm, S1 normal heart sound, S2 normal heart sound and no murmurs GI non-tender, non-distended and no masses Auscultation: normoactive bowel sounds Palpation: soft Narrative: External genitalia normal. Back/Spine no CVA tenderness Cervical Spine: cervical spine tenderness Thoracic Spine / Upper Back: thoracic spinal tenderness Extremity Extremity Narrative: Patient has several tattoos lower extremity. DP and PT pulse are palpable. General Extremety ED: Yes edema and other findings General Extremity: edema and other findings Neuro oriented x3 and CN's II-XII intact bilaterally Neuro Narrative: Patient has no strength lower extremity and no sensation to pinprick Sensorium / Orientation: alert and other Patella and ankle reflexes are absent. Bilateral Babinski sign. No rectal tone. No perineal sensation to pinprick. She does have weakness in the upper extremities as well. Possible plus minus bicep reflex right and left. Sensory Exam: sensory level loss detected Location: T4 Motor Exam: strength abnormal; Negative for strength 5/5 throughout Psych Mood & Affect: depressed Skin no rashes or lesions noted MDM MDM MDM Narrative Medical decision making narrative: With history of IV drug use absent reflexes bilateral Pinsky sign no rectal tone need to rule out epidural abscess. Since patient has severe pain to percussion over the cervical as well as lumbar region MRI with and without contrast of the cervical, thoracic and lumbar spine were obtained. Blood cultures were obtained. Patient was treated with Zosyn and vancomycin. If patient does have an epidural abscess she will require transfer to a tertiary center. Also need to evaluate for transverse myelitis, with dyspnea and need to evaluate for Guillain-Dillard?. Since patient's MRI of the cervical, thoracic and lumbar spine revealed no hope abnormality to explain her neurologic deficits CT of the head was obtained to evaluate for abscess. CT of the head with and without contrast was ordered. Lab Data Labs: Laboratory Results - last 24 hr 01/18/21 01/18/21 01/18/21 16:10 16:10 16:10 WBC 10.7 RBC 3.83 L Hgb 11.4 L Hct 33.9 L MCV 88.5 MCH 29.8 MCHC 33.6 RDW Std Deviation 45.3 H RDW Coeff of Katie 14.1 Plt Count 210 MPV 9.4 Immature Gran % (Auto) 0.600 Neut % (Auto) 89.7 H Lymph % (Auto) 3.0 L [place] % (Auto) 6.2 Eos % (Auto) 0.0 Baso % (Auto) 0.5 Absolute Neuts (auto) 9.6 H Absolute Lymphs (auto) 0.32 L Nucleated RBC % 0 Differential Comment SCANNED PT 15.2 H INR 1.3 APTT 30.3 Sodium 125 L Potassium 3.7 Chloride 94 L Carbon Dioxide 25.0 Anion Gap 6 BUN 14 Creatinine 0.68 Estim Creat Clear Calc 106.50 Est GFR (MDRD) Af Amer 120 Est GFR (MDRD) Non-Af 99 BUN/Creatinine Ratio 20.5 H Glucose 116 H Lactic Acid Calcium 8.3 L Total Bilirubin 1.20 H AST 50 H ALT 28 Alkaline Phosphatase 127 H Total Protein 7.4 Albumin 2.9 L Globulin 4.5 H Albumin/Globulin Ratio 0.6 L Serum , Qual Urine Color Urine Clarity Urine pH Ur Specific [place] Urine Protein Urine Glucose (UA) Urine Ketones Urine Occult Blood Urine Nitrite Urine Bilirubin Urine Urobilinogen Ur Leukocyte Esterase Urine RBC Urine WBC Ur Squamous Epith Cells Urine Bacteria Urine Mucus Urine Opiates Screen Urine Methadone Screen Ur Barbiturates Screen Ur Phencyclidine Scrn Ur Amphetamines Screen U Methamphetamin-MDMA U Benzodiazepines Scrn Urine Cocaine Screen U Cannabinoids Screen Ur Drug Screen Comment Ethyl Alcohol 01/18/21 01/18/21 01/18/21 16:10 16:10 16:10 WBC RBC Hgb Hct MCV MCH MCHC RDW Std Deviation RDW Coeff of Katie Plt Count MPV Immature Gran % (Auto) Neut % (Auto) Lymph % (Auto) [place] % (Auto) Eos % (Auto) Baso % (Auto) Absolute Neuts (auto) Absolute Lymphs (auto) Nucleated RBC % Differential Comment PT INR APTT Sodium Potassium Chloride Carbon Dioxide Anion Gap BUN Creatinine Estim Creat Clear Calc Est GFR (MDRD) Af Amer Est GFR (MDRD) Non-Af BUN/Creatinine Ratio Glucose Lactic Acid 2.3 H* Calcium Total Bilirubin AST ALT Alkaline Phosphatase Total Protein Albumin Globulin Albumin/Globulin Ratio Serum , Qual NEGATIVE Urine Color Urine Clarity Urine pH Ur Specific [place] Urine Protein Urine Glucose (UA) Urine Ketones Urine Occult Blood Urine Nitrite Urine Bilirubin Urine Urobilinogen Ur Leukocyte Esterase Urine RBC Urine WBC Ur Squamous Epith Cells Urine Bacteria Urine Mucus Urine Opiates Screen Urine Methadone Screen Ur Barbiturates Screen Ur Phencyclidine Scrn Ur Amphetamines Screen U Methamphetamin-MDMA U Benzodiazepines Scrn Urine Cocaine Screen U Cannabinoids Screen Ur Drug Screen Comment Ethyl Alcohol 9.0 01/18/21 01/18/21 01/18/21 16:45 16:45 21:06 WBC RBC Hgb Hct MCV MCH MCHC RDW Std Deviation RDW Coeff of Katie Plt Count MPV Immature Gran % (Auto) Neut % (Auto) Lymph % (Auto) [place] % (Auto) Eos % (Auto) Baso % (Auto) Absolute Neuts (auto) Absolute Lymphs (auto) Nucleated RBC % Differential Comment PT INR APTT Sodium Potassium Chloride Carbon Dioxide Anion Gap BUN Creatinine Estim Creat Clear Calc Est GFR (MDRD) Af Amer Est GFR (MDRD) Non-Af BUN/Creatinine Ratio Glucose Lactic Acid 1.0 Calcium Total Bilirubin AST ALT Alkaline Phosphatase Total Protein Albumin Globulin Albumin/Globulin Ratio Serum , Qual Urine Color Yellow Urine Clarity Clear Urine pH 7.0 Ur Specific [place] 1.010 Urine Protein 30 H Urine Glucose (UA) Normal Urine Ketones Negative Urine Occult Blood 25 H Urine Nitrite Negative Urine Bilirubin Negative Urine Urobilinogen 1 H Ur Leukocyte Esterase Negative Urine RBC 0 SEEN Urine WBC 0 SEEN Ur Squamous Epith Cells 0 SEEN Urine Bacteria 1+ Urine Mucus 0 SEEN Urine Opiates Screen POSITIVE H Urine Methadone Screen NEGATIVE Ur Barbiturates Screen NEGATIVE Ur Phencyclidine Scrn NEGATIVE Ur Amphetamines Screen POSITIVE H U Methamphetamin-MDMA NEGATIVE U Benzodiazepines Scrn NEGATIVE Urine Cocaine Screen NEGATIVE U Cannabinoids Screen POSITIVE H Ur Drug Screen Comment Ethyl Alcohol Arterial blood gases performed on room air reveals a pH of 7.53, PCO2 27.7, PaO2 98.9, bicarb 23.2, base excess of 0.5 and saturation of 98.5% blood gas reveals a respiratory alkalosis. ABG Data ABG results: ABG 01/18/21 16:32 Specimen Type ART Sample Site L Radial pH 7.53 H Bicarbonate Actual 23.2 Total CO2 24 Base Excess 1 O2 Saturation 99 ABG pCO2 27.7 L ABG pO2 99 Gee Test Positive O2 Delivery Device Room Air Radiography Diagnostic Testing: Radiology Impression Cervical Spine MRI 01/18/21 15:50 IMPRESSION: No evidence for acute fracture or other significant bony pathology.. Moderate spondylosis and multilevel spinal stenosis secondary to disc disease and bony hypertrophy. No significant cord compression or focal cord lesions. Electronically Signed: Dmitri Genao MD at 21:35 EDT , Service support , Lumbar Spine MRI 01/18/21 15:50 IMPRESSION: Scoliosis and degenerative changes. Multilevel spinal stenosis secondary to disc disease and bony hypertrophy most severe at L3-4 and L4-5. Findings as above Electronically Signed: Dmitri Genao MD at 21:44 EDT , Service support , Thoracic Spine MRI 01/18/21 15:50 IMPRESSION: No evidence for acute fracture or other significant bony pathology. Mild multilevel disc degeneration but no focal disc protrusion or spinal stenosis Normal thoracic cord Electronically Signed: Dmitri Genao MD at 21:38 EDT , Service support , EKG Initial EKG: Interpretation: Sinus Rhythm (Normal sinus rhythm with ventricular rate 92. ME interval 216 ms. Cures duration 96 ms. QT duration 3 and 72 ms. [place] is normal.) Critical Care Time Critical Care Time: Yes Critical care time (excluding procedures): 30-74 minutes (Total time 37 minutes which includes obtaining history, physical exam, documentation, review of prior records, initiation of care), Discussing w/Patient &/or Family/[facility]eterans Services Specialist, Discussing w/Consultants and Arranging Admission or Transfer Discharge Plan Triage Chief Complaint: Lower Extremity Injury ED Provider: Bradly Eden Dx/Rx/DC Orders Clinical Impression: Fever of unknown origin (FUO), Active intravenous drug use, Upper motor neuron lesion, Acute hyponatremia Prescriptions: No Action NK RF: 0 Primary Care Provider: Taye Pinto Referrals: Taye Pinto DO [Primary Care Provider] - Disposition Disposition: Acute Care Hospital Discharge Location: Other Acute Care Hospital
[2021-01-18] MEDS: 0.9% Normal Saline 1,000 ML 1000 ML IV (16:11)
[2021-01-18] MEDS: Ondansetron 4 MG/2 ML Vial IV (16:11)
[2021-01-18 16:38] LABS: Absolute Lymphocyte Count 0.32 X10^3/uL (0.83-4.51); Absolute Neutrophil Count 9.6 X10^3/uL (2.0-7.7); Basophil# 0.05 X10^3/uL; Basophil% 0.5 % (0-1); Hematocrit 33.9 % (37-47); Hemoglobin 11.4 g/dL (12.0-15.0); Lymphocyte # 0.32 X10^3/ul (0.83-4.51); Mean Corp Hgb Conc 33.6 g/dL (32-36); Mean Corpuscular Hgb 29.8 pg (27.0-32.0); Mean Corpuscular Volume 88.5 fL (81-99); Mean Platelet Vol. 9.4 fl (6.2-12.0); Monocyte# 0.66 X10^3/uL; Monocyte% 6.2 % (0-10); NRBC Flagged by Analyzer 0 % (0-5); Neutrophil # 9.62 X10^3/uL (2.7-7.7); Neutrophil % 89.7 % (47-70); POSITIVE DIFFERENTIAL YES; Platelet Count 210 K/mm3 (150-450); RBC Distribution Width CV 14.1 % (11.6-14.6); RBC Distribution Width SD 45.3 fl (35.1-43.9); Red Blood Count 3.83 M/mm3 (4.2-5.4); White Blood Count 10.7 K/mm3 (4.4-11.0)
[2021-01-18 16:40] LABS: Allen Test Positive; Base Excess 1 mmol/L (-2 to +2); Bicarbonate 23.2 mmol/L (22-26); Blood Gas Specimen Type ART; O2 Delivery Device Room Air; PO2 99 mmHG (75-100); SITE L Radial; SO2 99 % (95-99); Total Carbon Dioxide 24 mmol/L; pCO2 27.7 mmHg (35-45); pH 7.53 (7.35-7.45)
[2021-01-18 16:40] LABS: Internal QC Validated? YES +Cl - CLEAR BKGD; Pregnancy, Serum, hCG Quali. NEGATIVE Negative
[2021-01-18 16:46] LABS: ALB/GLOB Ratio 0.6 RATIO (0.9-2.4); AST(SGOT) 50 U/L (15-37); Alanine Aminotransfer ALT/SGPT 28 U/L (13-56); Albumin, Serum 2.9 g/dL (3.2-5.0); Alkaline Phosphatase 127 U/L (45-117); Anion Gap 6 (5-15); BUN 14 mg/dL (7-18); BUN/Creat Ratio 20.5 RATIO (10-20); Calcium,Total 8.3 mg/dL (8.5-10.1); Chloride 94 mmol/L (98-107); Creatinine, Serum 0.68 mg/dL (0.55-1.02); EST Glomerular Filtration Rate 99 mL/min (>60); Est Glom Filt Rate - Afr Amer 120 mL/min (>60); Globulin 4.5 g/dL (2.2-4.2); Glucose 116 mg/dL (74-106); Potassium 3.7 mmol/L (3.5-5.1); Protein, Total 7.4 g/dL (6.4-8.2); Sodium Level 125 mmol/L (136-145)
[2021-01-18 16:54] LABS: Lactic Acid 2.3 mmol/L (0.4-1.9)
[2021-01-18 17:03] LABS: International Normalized Ratio 1.3; Prothrombin Time (Protime)PT. 15.2 SECONDS (11.7-14.9)
[2021-01-18 17:04] LABS: Partial Thromboplast Time 30.3 Seconds (24.1-36.2)
[2021-01-18] MEDS: Acetaminophen 650 MG Suppository RC (17:05)
[2021-01-18 17:10] LABS: Amphetamine Urine VISTA POSITIVE (<1000 ng/mL); Barbiturate Urine VISTA NEGATIVE (< 200 ng/mL); Benzodiazepine Urine VISTA NEGATIVE (< 200 ng/mL); Cocaine Urine VISTA NEGATIVE (< 300 ng/mL); Ecstacy Urine VISTA NEGATIVE (< 500 ng/mL); Methadone Urine VISTA NEGATIVE (< 300 ng/mL); PCP Urine VISTA NEGATIVE (< 25 ng/mL); THC Urine VISTA POSITIVE (< 50 ng/mL); Vista UDS pH Range 6
[2021-01-18 17:15] LABS: Differential Indicated SCAN CRITERIA MET
[2021-01-18 17:36] LABS: Differential Comment SCANNED
[2021-01-18] MEDS: HYDROmorphone 1 MG/ML Syringe IV ×3 (18:33→19:55)
[2021-01-18 20:13] LABS: Reflex Lactate? Y
--- NOTE | 2021-01-18 21:48 | CT_ITS ---
STUDY: CT BRAIN WITH AND WITHOUT CONTRAST REASON FOR EXAM: Female, 45 years old. Temperature 103.2, IV drug use and neural deficits -- MRI of the cervical, thoracic and lumbar spine neg RADIATION DOSAGE (If Supplied By Facility): CTDIvol = ( 44.99 ) mGy, DLP = ( 1547.23 ) mGycm TECHNIQUE: Transaxial CT imaging of the brain was performed pre and post contrast administration. The examination was performed with intravenous administration of IV 50mL Isovue-370. Individualized dose optimization techniques were used for this CT. COMPARISON: None. FINDINGS: Normal soft tissue structures. Normal calvarium. Normal size ventricles and extra-axial spaces for the patient''s age. Normal white matter tracts of the cerebral hemispheres. Normal basal ganglia and thalami. Normal brainstem. Normal cerebellum. There is no intracranial hemorrhage. There are no findings of an acute ischemic infarction. Normal visualized paranasal sinuses. CT/Brain/Head W/WO Contrast IMPRESSION: Normal unenhanced and enhanced CT scan of the brain. MRI of the brain may be helpful for further evaluation if clinically warranted. Electronically Signed: Dmitri Genao MD at 22:59 EDT , Service support ,
[2021-01-18 21:57] LABS: Mucous, Urine 0 SEEN /hpf (<or=2+); Red Blood Cells-Urine 0 SEEN /hpf (0-5); Squamous Epithelial Cells - UA 0 SEEN /hpf (5-10); White Blood Cells 0 SEEN /hpf (0-5)
[2021-01-18 22:00] LABS: Color, Urine Yellow (Yellow); Glucose, Dipstick Normal (Normal); Ketone-Dipstick Negative (Negative); Leukocyte Esterase-Dipstick Negative /ul (Negative); Nitrite-Dipstick Negative (Negative); Occult Blood-Urine 25 /ul (Negative); Protein-Dipstick 30 mg/dl (Negative); Urine Bilirubin Dipstick Negative (Negative); Urine Clarity Clear (Clear); Urine Urobilinogen 1 mg/dl (Normal)
[2021-01-18 22:08] LABS: Bacteria 1+ /hpf (None Seen)
--- NOTE | 2021-01-19 05:03 | ED.RN ---
spoke with rohit turn machine operator nurse at [facility] and notifed of positive blood cultures results. copy of results faxed to [facility] at this time
== END 2021-01-18 23:35 | disposition short-term general hospital (02) ==
PROVIDERS: Emergency Provider Emergency Medicine; PCP Family Medicine
DX: R50.9 Fever, unspecified (principal); E87.1 Hypo-osmolality and hyponatremia; G12.29 Other motor neuron disease; F11.20 Opioid dependence, uncomplicated; F10.20 Alcohol dependence, uncomplicated; J45.909 Unspecified asthma, uncomplicated; F17.200 Nicotine dependence, unspecified, uncomplicated
CPT/HCPCS: 36600; 51702; 70470; 72156; 72157; 72158; 80053; 80307; 81001; 82077; 82803; 83605; 84703; 85025; 85610; 85730; 87040; 87077; 87086; 87088; 87149; 87186; 87426; 93005; 96365; 96368; 96374; 96375; 99285; A9575; J7030; J7040; A4216; J2405

== ENCOUNTER → 2022-10-08 | Outpatient (REF) | payer MEDICAID, SELFPAY ==
[2022-10-08 09:01] LABS: Hematocrit 45.1 % (37-47); Hemoglobin 14.7 g/dL (12.0-15.0); Mean Corp Hgb Conc 32.6 g/dL (32-36); Mean Corpuscular Hgb 32.7 pg (27.0-32.0); Mean Corpuscular Volume 100.2 fL (81-99); Mean Platelet Vol. 10.9 fl (6.2-12.0); Platelet Count 216 K/mm3 (150-450); RBC Distribution Width CV 13.4 % (11.6-14.6); RBC Distribution Width SD 49.8 fl (35.1-43.9); White Blood Count 6.6 K/mm3 (4.4-11.0)
[2022-10-08 09:14] LABS: Anion Gap 8 (5-15); BUN 15 mg/dL (7-18); BUN/Creat Ratio 18.9 RATIO (10-20); Calcium,Total 8.9 mg/dL (8.5-10.1); Chloride 105 mmol/L (98-107); Creatinine, Serum 0.79 mg/dL (0.55-1.02); EST Glomerular Filtration Rate 83 mL/min (>60); Est Glom Filt Rate - Afr Amer 100 mL/min (>60); Glucose 92 mg/dL (74-106); Potassium 3.6 mmol/L (3.5-5.1); Sodium Level 142 mmol/L (136-145)
== END | disposition home or self-care (01) ==
LOC: OLS.SW 04:00
PROVIDERS: PCP Family Medicine; Referring Provider Family Medicine; Visit Provider Family Medicine
DX: Z47.33 Aftercare following explantation of knee joint prosthesis (principal); M17.11 Unilateral primary osteoarthritis, right knee; I82.409 Acute embolism and thrombosis of unspecified deep veins of unspecified lower extremity
CPT/HCPCS: 36415; 80048; 85027

== ENCOUNTER → 2022-11-05 | Outpatient (REF) | payer MEDICAID, SELFPAY ==
[2022-11-05 08:54] LABS: Hematocrit 42.1 % (37-47); Hemoglobin 13.8 g/dL (12.0-15.0); Mean Corp Hgb Conc 32.8 g/dL (32-36); Mean Corpuscular Hgb 32.4 pg (27.0-32.0); Mean Corpuscular Volume 98.8 fL (81-99); Mean Platelet Vol. 11.4 fl (6.2-12.0); Platelet Count 178 K/mm3 (150-450); RBC Distribution Width CV 13.1 % (11.6-14.6); RBC Distribution Width SD 46.7 fl (35.1-43.9); Red Blood Count 4.26 M/mm3 (4.2-5.4); White Blood Count 6.6 K/mm3 (4.4-11.0)
[2022-11-05 09:06] LABS: Anion Gap 4 (5-15); BUN 24 mg/dL (7-18); BUN/Creat Ratio 28.8 RATIO (10-20); Calcium,Total 9.1 mg/dL (8.5-10.1); Chloride 107 mmol/L (98-107); Creatinine, Serum 0.83 mg/dL (0.55-1.02); EST Glomerular Filtration Rate 78 mL/min (>60); Est Glom Filt Rate - Afr Amer 95 mL/min (>60); Glucose 104 mg/dL (74-106); Potassium 3.4 mmol/L (3.5-5.1); Sodium Level 144 mmol/L (136-145)
== END | disposition home or self-care (01) ==
LOC: OLS.SW 04:00
PROVIDERS: PCP Family Medicine; Referring Provider Family Medicine; Visit Provider Family Medicine
DX: B17.10 Acute hepatitis C without hepatic coma (principal); B18.1 Chronic viral hepatitis B without delta-agent; R53.81 Other malaise; I82.409 Acute embolism and thrombosis of unspecified deep veins of unspecified lower extremity; Z86.16 Personal history of COVID-19
CPT/HCPCS: 36415; 80048; 85027

== ENCOUNTER → 2022-12-03 | Outpatient (REF) | payer MEDICAID, SELFPAY ==
[2022-12-03 08:00] LABS: Hematocrit 45.8 % (37-47); Mean Corp Hgb Conc 32.8 g/dL (32-36); Mean Corpuscular Hgb 32.5 pg (27.0-32.0); Mean Corpuscular Volume 99.3 fL (81-99); Mean Platelet Vol. 11.5 fl (6.2-12.0); Platelet Count 171 K/mm3 (150-450); RBC Distribution Width CV 12.8 % (11.6-14.6); RBC Distribution Width SD 46.7 fl (35.1-43.9); Red Blood Count 4.61 M/mm3 (4.2-5.4); White Blood Count 6.9 K/mm3 (4.4-11.0)
[2022-12-03 08:19] LABS: Anion Gap 5 (5-15); BUN 20 mg/dL (7-18); BUN/Creat Ratio 26.7 RATIO (10-20); Calcium,Total 8.9 mg/dL (8.5-10.1); Chloride 105 mmol/L (98-107); Creatinine, Serum 0.75 mg/dL (0.55-1.02); EST Glomerular Filtration Rate 88 mL/min (>60); Est Glom Filt Rate - Afr Amer 107 mL/min (>60); Glucose 95 mg/dL (74-106); Potassium 3.9 mmol/L (3.5-5.1); Sodium Level 140 mmol/L (136-145)
== END | disposition home or self-care (01) ==
LOC: OLS.SW 05:00
PROVIDERS: PCP Family Medicine; Visit Provider Family Medicine
DX: B17.10 Acute hepatitis C without hepatic coma (principal); B18.1 Chronic viral hepatitis B without delta-agent
CPT/HCPCS: 36415; 80048; 85027

== ENCOUNTER → 2022-12-31 | Outpatient (REF) | payer MEDICAID, SELFPAY ==
[2022-12-31 07:46] LABS: Anion Gap 2 (5-15); BUN 17 mg/dL (7-18); BUN/Creat Ratio 19.8 RATIO (10-20); Chloride 104 mmol/L (98-107); Creatinine, Serum 0.86 mg/dL (0.55-1.02); EST Glomerular Filtration Rate 76 mL/min (>60); Est Glom Filt Rate - Afr Amer 91 mL/min (>60); Glucose 104 mg/dL (74-106); Hematocrit 41.6 % (37-47); Hemoglobin 13.6 g/dL (12.0-15.0); Mean Corp Hgb Conc 32.7 g/dL (32-36); Mean Corpuscular Hgb 32.4 pg (27.0-32.0); Mean Platelet Vol. 11.1 fl (6.2-12.0); Platelet Count 182 K/mm3 (150-450); Potassium 3.4 mmol/L (3.5-5.1); RBC Distribution Width SD 47.3 fl (35.1-43.9); Sodium Level 140 mmol/L (136-145); White Blood Count 6.1 K/mm3 (4.4-11.0)
== END | disposition home or self-care (01) ==
LOC: OLS.SW 05:00
PROVIDERS: PCP Family Medicine; Visit Provider Family Medicine
DX: B18.1 Chronic viral hepatitis B without delta-agent (principal); B17.10 Acute hepatitis C without hepatic coma
CPT/HCPCS: 36415; 80048; 85027

== ENCOUNTER → 2023-01-28 | Outpatient (REF) | payer MEDICAID, SELFPAY ==
[2023-01-28 09:25] LABS: Hematocrit 42.4 % (37-47); Hemoglobin 14.1 g/dL (12.0-15.0); Mean Corp Hgb Conc 33.3 g/dL (32-36); Mean Corpuscular Hgb 32.5 pg (27.0-32.0); Mean Corpuscular Volume 97.7 fL (81-99); Mean Platelet Vol. 11.4 fl (6.2-12.0); Platelet Count 173 K/mm3 (150-450); RBC Distribution Width SD 46.4 fl (35.1-43.9); Red Blood Count 4.34 M/mm3 (4.2-5.4); White Blood Count 7.4 K/mm3 (4.4-11.0)
[2023-01-28 09:40] LABS: Anion Gap 7 (5-15); BUN 16 mg/dL (7-18); BUN/Creat Ratio 23.4 RATIO (10-20); Calcium,Total 8.6 mg/dL (8.5-10.1); Chloride 109 mmol/L (98-107); Creatinine, Serum 0.68 mg/dL (0.55-1.02); EST Glomerular Filtration Rate 98 mL/min (>60); Est Glom Filt Rate - Afr Amer 119 mL/min (>60); Glucose 111 mg/dL (74-106); Sodium Level 139 mmol/L (136-145)
== END | disposition home or self-care (01) ==
LOC: OLS.SW 05:00
PROVIDERS: PCP Family Medicine; Visit Provider Family Medicine
DX: B18.1 Chronic viral hepatitis B without delta-agent (principal); B17.10 Acute hepatitis C without hepatic coma
CPT/HCPCS: 36415; 80048; 85027

== ENCOUNTER 2023-02-06 21:11 | Emergency (ER) | payer MEDICAID, SELFPAY ==
[2023-02-06 21:12] VITALS: BP 114/75; PULSE 99; RESP 18; TEMP 36.4; O2SAT 102; BMI 42.7
--- NOTE | 2023-02-06 21:42 | RAD_ITS ---
INDICATION: trauma EXAMINATION/TECHNIQUE: X-RAY - LEFT XR Tibia/Fibula 2 Views : AP and lateral tibia-fibula COMPARISON: Ankle radiograph on same day FINDINGS: SOFT TISSUES: No soft tissue swelling or gas. No radiopaque foreign body. BONES/JOINTS: Comminuted nondisplaced proximal tibial fracture extending vertically from the medial tibial plateau into the metadiaphysis. Comminuted fracture proximal fibular metadiaphysis. No distal tibial or fibular fracture.. Normal alignment. Preservation of the joint space.. No sclerotic or destructive changes observed.
--- NOTE | 2023-02-06 21:50 | RAD_ITS ---
INDICATION: trauma EXAMINATION/TECHNIQUE: X-RAY - LEFT XR Ankle Min 3 Views 3 VIEWS COMPARISON: Tibiofibular radiograph on same day FINDINGS: SOFT TISSUES: Mild ankle edema. No radiopaque foreign body. BONES/JOINTS: No acute fracture or talar osteochondral defect.. Normal alignment and mortise spacing. Calcaneal plantar enthesophyte. . No sclerotic or destructive changes observed. RAD/Ankle min 3 Views IMPRESSION: Ankle edema without evidence of underlying osseous injury fracture.. Electronically Signed: Sotero Hanna MD at 22:41 EDT ,
--- NOTE | 2023-02-06 22:33 | EDS_ITS ---
HPI History of Present Illness Chief Complaint: Lower Extremity Injury Informant: patient Narrative Narrative: Patient was sent in for tib-fib fracture seen on x-ray. This patient is at [facility]. 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 She is slowly improving. She occasionally can walk a few steps with a walker. On Saturday she was walking and she put weight down on her leg and just fell on it. She states she has pain somewhere in the left lower extremity a little bit above the ankle. She does still have sensation in the legs but is not totally normal. She denies any other pain. She never hit her head. She is not on any anticoagulation. Evidently x-rays were done as an outpatient but I do not have access to these. [facility] Medical History Alcohol abuse Asthma Depression Hepatitis IVDU (intravenous drug user) Opiate dependence Polysubstance (including opioids) dependence, daily use Smoker Home Medications NK 02/06/20 [History Last Taken Unknown] Allergy/AdvReac Type Severity Reaction Status Date / Time hydrocodone bitartrate Allergy Itching Verified 02/06/23 21:17 [From Vicodin] Surgical History History of cholecystectomy Social History Smoking Status: Current every day smoker tobacco type: cigarettes ROS ROS ED Constitutional Constitutional ED: Denies chills or fever(s) ENT ENT ED: Denies sore throat Cardiovascular Cardiovascular: Denies chest pain Respiratory/Chest Respiratory/Chest: Denies cough or dyspnea Gastrointestinal Gastrointestinal: Denies nausea or vomiting Musculoskeletal Musculoskeletal: Reports arthralgias; Denies back pain or neck pain Integumentary Denies rash Neurologic Neurologic: Reports paresthesias, weakness and other Details: History of paraplegia Hematologic/Lymphatic Hematologic/Lymphatic: Denies easy bleeding or easy bruising Allergic/Immunologic Allergic/Immunologic ED: Denies urticaria EXAM Physical Exam Narrative Exam Narrative: Patient with alert no acute distress sitting in bed. HEENT shows no sign of trauma mucous membranes are moist. Neck is nontender. Lungs are clear bilaterally. She is running about 96 to 7% saturation on room air on the monitor showing no hypoxia. Heart is regular with a rate about 90. Monitor shows a rate of about 85-95 with no ectopy. Abdomen is obese but otherwise benign Extremities do not show any deformity. He is hard to isolate where she actually has focal tenderness but it seems to be in the mid shins area. She feels that it is lower but it seems to be tender higher. No tenderness or pain in the foot knee or above. Neurologically she is awake alert appropriate. She does have some degree of expected weakness and slight sensory changes consistent with her paraplegia. Const Vital Signs: 02/06/23 21:12 02/06/23 21:12 02/06/23 22:44 Temperature 97.5 F L Temperature Source Temporal Pulse Rate 99 Respiratory Rate 18 Blood Pressure 114/75 Blood Pressure Mean 88 Pulse Ox 102 84 Oxygen Delivery Method Room Air Room Air Oxygen Flow Rate (L/min) 02/06/23 22:44 Temperature Temperature Source Pulse Rate Respiratory Rate Blood Pressure Blood Pressure Mean Pulse Ox 94 Oxygen Delivery Method Nasal Cannula Oxygen Flow Rate (L/min) 2 MDM MDM MDM Narrative Medical decision making narrative: My independent interpretation of the three-view x-ray of the ankle shows no acute process. My independent interpretation of her 3 view tib-fib does show a proximal tibia- fibula fracture. Tibia fracture extends into the knee. But positioning is excellent. Final reading of x-rays is pending. Final reading comes back showing proximal fibular fracture and proximal tibial fracture with intra-articular component consistent with my reading. Ankle does not show any acute process. I discussed the case, the patient's unique condition, and the x-ray findings with Dr. Hadley on-call for orthopedics. Our concern about doing surgery is that she has had MRSA, she has decreased sensation and paraplegia, and she also has some osteopenia because of this. Her bones are in excellent position. If we can splint these and hold these in position she should heal quite well. I discussed this with her also. She was okay with this plan. We will work to get her in a posterior splint and then sugar-tong. She does not have the smallest leg and this is a somewhat difficult process. We will get several people to help to avoid moving her leg is much as possible. Procedure: Posterior and sugar-tong long-leg splint left lower extremity: We received help from nurses Sim and Mily. This was done to minimize motion of her leg. We placed a 5 inch posterior splint and wrapped it with gauze gently. We then used a 3 inch sugar-tong from each side of the leg wrapping around the ankle going as high as we could on the thigh. It is difficult to get high up on her leg due to shape and size. The final wrapping was done with orestes wrap. She tolerated this quite well. During the exam we did note that it seemed like she had a slightly shorter leg on the left. Patient did have good capillary refill and her baseline sensation checked after splint placement. There is no deformity below the knee. She is denying hip pain but I am going to get an x-ray of the hip just to make sure there is no other acute issue. As long as this is okay, she will go back to the [facility] facility and follow-up with orthopedics. Independent interpretation the patient's three-view left hip shows no hip/femur fracture. But she does appear to have superior and inferior pubic rami fracture. There seems to be significant callus formation around superior pubic ramus. Inferior could be new or old. But patient denies pain in this area even with weightbearing. Although her sensation is decreased she still does have sensation there. She has more in that area than she does in the lower extremities. In either case, this would be conservative management. With her lower extremity already splinted, this does not alter her care even if acute. Of note, I did look back over multiple films including prior spine films and abdominal CTs and none of these show this area for comparison views. Radiography Diagnostic Testing: Clinical Impression(s) from Imaging Studies Tibia/Fibula X-Ray 02/06/23 21:42 IMPRESSION: Proximal intra-articular tibial fracture extending into the medial tibial plateau. Proximal fibular metadiaphyseal fracture.. Electronically Signed: Sotero Hanna MD at 22:40 EDT , Ankle X-Ray 02/06/23 21:50 IMPRESSION: Ankle edema without evidence of underlying osseous injury fracture.. Electronically Signed: Sotero Hanna MD at 22:41 EDT , Procedures Lower Extremity Splints Lower Extremity Splint: Orthoglass and Long leg Splint Fabrication: Fabricated Location: Left (See MDM.) Discharge Plan Triage Chief Complaint: Lower Extremity Injury ED Provider: Iron Keith Dx/Rx/DC Orders Clinical Impression: Fall at correction, Fracture of proximal end of tibia and fibula, Paraplegia, incomplete, Osteopenia Instructions: ED Fracture, Lower Extremity Prescriptions: No Action NK Primary Care Provider: Dawit Abreu Referrals: Dawit Abreu MD [Primary Care Provider] - Jaden Hadley MD [Med Staff - Active Staff] - As soon as possible Disposition Disposition: Shelter Facility Discharge Location: [facility]
[2023-02-06 22:44] VITALS: O2SAT 84; O2SAT 94
--- NOTE | 2023-02-07 00:30 | RAD_ITS ---
INDICATION: trauma EXAMINATION/TECHNIQUE: X-RAY - XR Hip Unilateral with Pelvis when performed; 2-3 Views COMPARISON: August 15, 2019. FINDINGS: PELVIC BONES: Age-indeterminate, likely subacute left superior and inferior pubic ramus fracture, new from August 15, 2019, with suggested callus at the superior pubic ramus. No visible iliac or sacral fracture. Note that overlapping bowel shadows may however obscure fine detail. No sacroiliac joint displacement. No widening of the pubic symphysis. HIPS: Normal bilateral hip alignment with preserved joint spacing and minimal osteophyte formation. . SOFT TISSUES: No soft tissue swelling or gas. Right pelvic coarse calcification. RAD/HIP, UNI W/ Pelvis 2-3 Views IMPRESSION: Age-indeterminate left superior and inferior pubic ramus fracture with suggestion of callus at the superior pubic ramus fracture. CT could further characterize as indicated. Electronically Signed: Sotero Hanna MD at 1:46 EDT ,
[2023-02-07 00:57] VITALS: BP 101/67; PULSE 75; RESP 18; O2SAT 95
--- NOTE | 2023-02-07 01:24 | ED.RN ---
0124: Report called to Komal SHELBY at [facility].
== END 2023-02-07 02:56 | disposition skilled nursing facility (03) ==
PROVIDERS: Emergency Provider Emergency Medicine; PCP Family Medicine; Visit Provider Emergency Medicine
DX: S82.102A Unspecified fracture of upper end of left tibia, initial encounter for closed fracture (principal); G82.22 Paraplegia, incomplete; F17.210 Nicotine dependence, cigarettes, uncomplicated; M85.80 Other specified disorders of bone density and structure, unspecified site; W18.39XA Other fall on same level, initial encounter; Y92.129 Unspecified place in nursing home as the place of occurrence of the external cause; S82.832A Other fracture of upper and lower end of left fibula, initial encounter for closed fracture; Z90.49 Acquired absence of other specified parts of digestive tract; F10.10 Alcohol abuse, uncomplicated; J45.909 Unspecified asthma, uncomplicated; F32.9 Major depressive disorder, single episode, unspecified
CPT/HCPCS: 29505; 73502; 73590; 73610; 99284

== ENCOUNTER → 2023-02-25 04:00 | Outpatient (REF) | payer MEDICAID, SELFPAY ==
[2023-02-25 09:06] LABS: Hematocrit 40.7 % (37-47); Hemoglobin 13.2 g/dL (12.0-15.0); Mean Corp Hgb Conc 32.4 g/dL (32-36); Mean Corpuscular Hgb 33.2 pg (27.0-32.0); Mean Corpuscular Volume 102.3 fL (81-99); Mean Platelet Vol. 10.7 fl (6.2-12.0); Platelet Count 213 K/mm3 (150-450); RBC Distribution Width CV 13.3 % (11.6-14.6); RBC Distribution Width SD 50.1 fl (35.1-43.9); Red Blood Count 3.98 M/mm3 (4.2-5.4); White Blood Count 6.2 K/mm3 (4.4-11.0)
[2023-02-25 09:14] LABS: Anion Gap 2 (5-15); BUN 14 mg/dL (7-18); BUN/Creat Ratio 26.4 RATIO (10-20); Calcium,Total 8.4 mg/dL (8.5-10.1); Chloride 109 mmol/L (98-107); Creatinine, Serum 0.53 mg/dL (0.55-1.02); EST Glomerular Filtration Rate 131 mL/min (>60); Est Glom Filt Rate - Afr Amer 159 mL/min (>60); Glucose 85 mg/dL (74-106); Potassium 3.5 mmol/L (3.5-5.1); Sodium Level 143 mmol/L (136-145)
== END ==
LOC: OLS.SW 04:00
PROVIDERS: PCP Family Medicine; Referring Provider Family Medicine; Visit Provider Family Medicine
DX: G82.50 Quadriplegia, unspecified (principal); Z79.899 Other long term (current) drug therapy
CPT/HCPCS: 36415; 80048; 85027

== ENCOUNTER → 2023-03-03 | Outpatient (REF) | payer MEDICAID, SELFPAY ==
[2023-03-03 11:23] LABS: Mucous, Urine 0 SEEN /hpf (<or=2+); Red Blood Cells-Urine 0 SEEN /hpf (0-5); Squamous Epithelial Cells - UA 0 SEEN /hpf (5-10)
[2023-03-03 11:43] LABS: Color, Urine Yellow (Yellow); Glucose, Dipstick Normal (Normal); Ketone-Dipstick Negative (Negative); Leukocyte Esterase-Dipstick 500 /ul (Negative); Nitrite-Dipstick Positive (Negative); Occult Blood-Urine Negative /ul (Negative); Protein-Dipstick 15 mg/dl (Negative); Specific Gravity, Urine 1.015 (1.002-1.030); Urine Bilirubin Dipstick Negative (Negative); Urine Clarity Clear (Clear); Urine Urobilinogen Normal (Normal)
[2023-03-03 12:00] LABS: Bacteria 1+ /hpf (None Seen); White Blood Cells 5-10 SEEN /hpf (0-5)
== END | disposition home or self-care (01) ==
LOC: OLS.SW 04:00
PROVIDERS: PCP Family Medicine; Visit Provider Family Medicine
DX: N39.0 Urinary tract infection, site not specified (principal)
CPT/HCPCS: 81001; 87077; 87086; 87088; 87186

== ENCOUNTER → 2023-03-17 10:41 | Outpatient (REF) | payer MEDICAID, SELFPAY | LOC: OLS.SW 10:41 | PROVIDERS: PCP Family Medicine; Visit Provider Family Medicine | DX: R52 Pain, unspecified (principal) | CPT/HCPCS: 87070; 87077; 87101; 87186; 87205 ==

== ENCOUNTER → 2023-03-25 04:00 | Outpatient (REF) | payer MEDICAID, SELFPAY ==
[2023-03-25 09:28] LABS: Hematocrit 42.2 % (37-47); Hemoglobin 13.9 g/dL (12.0-15.0); Mean Corp Hgb Conc 32.9 g/dL (32-36); Mean Corpuscular Hgb 32.9 pg (27.0-32.0); Mean Platelet Vol. 10.8 fl (6.2-12.0); Platelet Count 195 K/mm3 (150-450); RBC Distribution Width CV 12.4 % (11.6-14.6); RBC Distribution Width SD 45.6 fl (35.1-43.9); Red Blood Count 4.22 M/mm3 (4.2-5.4); White Blood Count 5.4 K/mm3 (4.4-11.0)
[2023-03-25 09:32] LABS: Anion Gap 1 (5-15); BUN 16 mg/dL (7-18); BUN/Creat Ratio 24.2 RATIO (10-20); Calcium,Total 8.3 mg/dL (8.5-10.1); Chloride 108 mmol/L (98-107); Creatinine, Serum 0.66 mg/dL (0.55-1.02); EST Glomerular Filtration Rate 102 mL/min (>60); Est Glom Filt Rate - Afr Amer 123 mL/min (>60); Glucose 88 mg/dL (74-106); Potassium 3.6 mmol/L (3.5-5.1); Sodium Level 141 mmol/L (136-145)
== END ==
LOC: OLS.SW 04:00
PROVIDERS: PCP Family Medicine; Referring Provider Family Medicine; Visit Provider Family Medicine
DX: B18.1 Chronic viral hepatitis B without delta-agent (principal)
CPT/HCPCS: 36415; 80048; 85027

== ENCOUNTER → 2023-04-22 05:00 | Outpatient (REF) | payer MEDICAID, SELFPAY ==
[2023-04-22 08:59] LABS: Hematocrit 42.9 % (37-47); Mean Corp Hgb Conc 32.6 g/dL (32-36); Mean Corpuscular Hgb 32.8 pg (27.0-32.0); Mean Corpuscular Volume 100.5 fL (81-99); Platelet Count 173 K/mm3 (150-450); RBC Distribution Width CV 12.4 % (11.6-14.6); RBC Distribution Width SD 45.8 fl (35.1-43.9); Red Blood Count 4.27 M/mm3 (4.2-5.4); White Blood Count 6.4 K/mm3 (4.4-11.0)
[2023-04-22 09:16] LABS: Anion Gap 2 (5-15); BUN 15 mg/dL (7-18); BUN/Creat Ratio 21.9 RATIO (10-20); Calcium,Total 8.9 mg/dL (8.5-10.1); Chloride 108 mmol/L (98-107); Creatinine, Serum 0.68 mg/dL (0.55-1.02); EST Glomerular Filtration Rate 98 mL/min (>60); Est Glom Filt Rate - Afr Amer 118 mL/min (>60); Glucose 96 mg/dL (74-106); Potassium 3.4 mmol/L (3.5-5.1); Sodium Level 140 mmol/L (136-145)
== END ==
LOC: OLS.SW 05:00
PROVIDERS: PCP Family Medicine; Visit Provider Internal Medicine
DX: B17.10 Acute hepatitis C without hepatic coma (principal)
CPT/HCPCS: 36415; 80048; 85027

== ENCOUNTER → 2023-04-30 03:00 | Outpatient (REF) | payer MEDICAID, SELFPAY | LOC: OLS.SW 03:00 | PROVIDERS: PCP Family Medicine; Visit Provider Family Medicine | DX: N89.8 Other specified noninflammatory disorders of vagina (principal) | CPT/HCPCS: 87070; 87077; 87186; 87205 ==

== ENCOUNTER → 2023-05-01 01:00 | Outpatient (REF) | payer MEDICAID, SELFPAY | LOC: OLS.SW 01:00 | PROVIDERS: PCP Family Medicine; Visit Provider Family Medicine | DX: N89.8 Other specified noninflammatory disorders of vagina (principal) | CPT/HCPCS: 87077; 87086; 87088; 87186 ==

== ENCOUNTER 2023-05-17 06:03 | Emergency (ER) | payer MEDICAID, SELFPAY ==
[2023-05-17 06:04] VITALS: BP 116/74; PULSE 67; RESP 16; TEMP 36; O2SAT 98; BMI 43.8
--- NOTE | 2023-05-17 06:14 | CT_ITS ---
STUDY: CT BRAIN WITHOUT CONTRAST REASON FOR EXAM: Female, 48 years old. Trauma RADIATION DOSAGE (If Supplied By Facility): CTDIvol = ( 44.99 ) mGy, DLP = ( 779.24 ) mGycm TECHNIQUE: Transaxial CT imaging of the brain was performed without administration of intravenous contrast material. Individualized dose optimization techniques were used for this CT. COMPARISON: No relevant priors. FINDINGS: There is right frontal superficial soft tissue edema a small focus of skin irregularity compatible with the given history.. Normal calvarium. Normal size ventricles and extra-axial spaces for the patient''s age. Normal white matter tracts of the cerebral hemispheres. Normal basal ganglia and thalami. Normal brainstem. Normal cerebellum. There is no intracranial hemorrhage. There are no findings of an acute ischemic infarction. Normal visualized paranasal sinuses. CT/Brain/Head without Contrast IMPRESSION: Mild right frontal superficial soft tissue edema. No visualized acute hemorrhage infarct or edema. Electronically Signed: Nia Gonzales MD at 7:25 EDT ,
--- NOTE | 2023-05-17 06:14 | CT_ITS ---
STUDY: CT CERVICAL SPINE WITHOUT CONTRAST REASON FOR EXAM: Female, 48 years old. Rolled out of bed hitting head on trashcan, laceration to right forehead, paraplegia, cervical fusion RADIATION DOSAGE (If Supplied By Facility): CTDIvol = ( 3638 ) mGy, DLP = ( 746.95 ) mGycm TECHNIQUE: High resolution transaxial imaging was performed without contrast material. Sagittal and coronal images were reconstructed. Study is limited. There is visualized substantial motion artifact limiting the study. Individualized dose optimization techniques were used for this CT. COMPARISON: 10/27/2019 CT scan Facial bones partial visualization of the cervical spine, there are no recent postoperative comparisons.. FINDINGS: There is a visualized cervical spine fusion from an anterior approach at the level of C2-C3. There has been a laminectomy from C2 to at least the C5 allowing for motion artifact. There are degenerative changes of the anterior atlantoaxial articulation. Normal odontoid process. There is visualized posterior hardware from the level of the facet at the level of C2-T2. There are bilateral spinal rods. At the left side of C3, and C5 and C6. At the screw extends out beyond the level of the anterior aspect of the cerebellum. On the left side the C3 There is straightening of the normal cervical lordosis. Normal vertebral bodies and posterior osseous elements. C2-3: There is disc space narrowing mild neural foramina narrowing no significant central stenosis. There is bilateral laminectomy. C3-4: Normal endplates. Normal disc height and morphology. Normal central canal and intervertebral neuroforamina. C4-5: There is disc space narrowing. Normal disc height and morphology. Normal central canal and intervertebral neuroforamina. There has been a laminectomy. C5-6: There is disc space narrowing mild right neural foramina narrowing. Narrowing there is no significant neural foramina narrowing or central stenosis. C6-7: There is visualized spondylosis disc space narrowing.. Normal disc height and morphology. Normal central canal and intervertebral neuroforamina. C7-T1: Normal endplates. Normal disc height and morphology. Normal central canal and intervertebral neuroforamina. Normal visualized soft tissue structures. CT/Spine Cervical without Contras IMPRESSION: Interval extensive spinal fusion and laminectomy when compared to prior study January 18, 2021. A more recent postoperative study would be helpful to establish stability.There is no apparent acute loss of height or alignment allowing for technique. Electronically Signed: Nia Gonzales MD at 7:37 EDT Reading Location ID and State: [facility] / [place] Tel , Service support ,
--- NOTE | 2023-05-17 06:16 | EX.ED.GENINJ ---
HPI History of Present Illness Chief Complaint: Head Injury Detail of Chief Complaint: Forehead laceration after rolling out of bed. Informant: patient Onset/Context/Timing Onset: Today and Hours Mechanism/Context: Blunt Injury, Fall and Incised Quality of Pain: Dull and Aching Current Severity: Mild Maximum Severity: Mild Associated Symptoms Associated Symptoms: Negative for Parasthesias, Weakness or Loss of function Length of loss of consciousness: No LOC. Narrative Narrative: 48-year-old female history of IV drug abuse. Paraplegic and unable to walk. She still can move her lower extremities and has sensation. She was asleep in bed rolled out of bed when she fell she lacerated her forehead at the hairline. She is also complaining of neck pain. No LOC. Denies being on a blood. Tetanus Immunization: Unknown Prior similar symptoms: No Recent Illness/Hospitalization: No PFSH PFSH Medical History Alcohol abuse Asthma Bipolar 1 disorder Depression Hepatitis IVDU (intravenous drug user) Muscle weakness (generalized) Opiate dependence Polysubstance (including opioids) dependence, daily use Smoker Home Medications albuterol sulfate 90 mcg/actuation aerosol inhaler (Ventolin HFA) 2 puff inhalation PRN SOB 05/17/23 [History Last Taken Unknown] amitriptyline 10 mg tablet 10 mg PO QHS 05/17/23 [History Last Taken Unknown] baclofen 20 mg tablet 60 mg PO DAILY 05/17/23 [History Last Taken Unknown] clonazepam 0.5 mg tablet (Klonopin) 0.5 mg PO QHS PRN 05/17/23 [History Last Taken Unknown] dantrolene 25 mg capsule 25 mg PO BID 05/17/23 [History Last Taken Unknown] duloxetine 30 mg capsule,delayed release 30 mg PO BID 05/17/23 [History Last Taken Unknown] famotidine 20 mg tablet 20 mg PO BID 05/17/23 [History Last Taken Unknown] fluorometholone 0.1 % eye drops,suspension 1 drp ophthalmic (eye) DAILY 05/17/23 [History Last Taken Unknown] furosemide 20 mg tablet (Lasix) 20 mg PO DAILY 05/17/23 [History Last Taken Unknown] gabapentin 400 mg capsule 400 mg PO DAILY 05/17/23 [History Last Taken Unknown] gabapentin 800 mg tablet 800 mg PO QHS 05/17/23 [History Last Taken Unknown] ibuprofen 800 mg tablet 800 mg PO DAILY PRN pain 05/17/23 [History Last Taken Unknown] loratadine 10 mg tablet 10 mg PO DAILY 05/17/23 [History Last Taken Unknown] methocarbamol 500 mg tablet 1,000 mg PO TID 05/17/23 [History Last Taken Unknown] nystatin 100,000 unit/gram topical powder 1 applic topical DAILY 05/17/23 [History Last Taken Unknown] oxybutynin chloride 10 mg tablet,extended release 24 hr 10 mg PO DAILY 05/17/23 [History Last Taken Unknown] promethazine 25 mg tablet 25 mg PO Q4H PRN 05/17/23 [History Last Taken Unknown] tizanidine 4 mg tablet 8 mg PO QHS 05/17/23 [History Last Taken Unknown] Allergy/AdvReac Type Severity Reaction Status Date / Time hydrocodone bitartrate Allergy Itching Verified 05/17/23 06:09 [From Vicodin] Surgical History History of cholecystectomy Social History Smoking Status: Current every day smoker tobacco type: cigarettes ROS ROS ED ROS Narrative Denies recent illness. Review of Systems ROS Unobtainable: Denies due to encephalopathy Constitutional Constitutional ED: Denies chills or fever(s) Eyes Eyes: Denies blurry vision ENT ENT ED: Denies ear pain Cardiovascular Cardiovascular: Denies chest pain Respiratory/Chest Respiratory/Chest: Denies cough Gastrointestinal Gastrointestinal: Denies abdominal pain, nausea or vomiting Genitourinary Genitourinary ED: Denies dysuria Musculoskeletal Musculoskeletal: Denies arthralgias Integumentary Denies abscess Neurologic Neurologic: Denies headache(s) Psychiatric Psychiatric: Denies anxiety Endocrine Endocrinology: Denies cold intolerance Hematologic/Lymphatic Hematologic/Lymphatic: Denies easy bleeding Allergic/Immunologic Allergic/Immunologic ED: Denies mouth swelling EXAM Physical Exam Narrative Exam Narrative: 48-year-old female vital signs stable afebrile. H EENT exam given reactive to light. She has about 3 inch laceration to the top of her forehead and hairline. I will need suture repaired. There is mild bleeding. Small hematoma. Given reactive light. No other facial trauma. Scalp nontender. She does complain of C-spine discomfort. There is tenderness. Trachea midline. Lungs clear to auscultation bilaterally. Chest wall nontender. Heart regular rate and rhythm no murmur. Rate about 70. No crepitance or subcu air to the chest wall. Abdomen soft nontender. Pelvic girdle intact. She has normal 5 and 5 reproductive endocrinologist strength both hands. Shoulders, elbows and wrists are nontender no deformity. She is able to do dorsi and plantarflexion of both feet. However her legs are weak. There is no deformity or tenderness to the hips, knees or ankles. Neurologically she is awake and alert. Answering questions following commands. Const Vital Signs: 05/17/23 06:04 05/17/23 06:06 Temperature 96.8 F L Temperature Source Temporal Pulse Rate 67 Respiratory Rate 16 Respiratory Effort Normal Blood Pressure 116/74 Blood Pressure Mean 88 Pulse Ox 98 Oxygen Delivery Method Room Air Positive well nourished, well developed and obese; Negative for cachectic, contractures or unkempt General Appearance ED: well developed and NAD; Negative for unkempt, cachectic or contractures Nutritional Appearance: obese; Negative for cachectic HEENT HEENT Narrative: Laceration along the hairline of the anterior scalp. Small bleeding. Small hematoma. trauma and tenderness; Negative for atraumatic Eyes PERRL and EOMs intact bilaterally Neck No full ROM Neck Narrative: C-spine tenderness. General: tenderness Chest Wall inspection of chest normal and palpation of chest normal Breast/Axilla Inspection: Negative for other Resp normal respiratory effort and clear to auscultation bilaterally Effort and Inspection: Negative for pain with movement Auscultation: Negative for rales, rhonchi or wheezes Cardio regular rhythm, S1 normal heart sound, S2 normal heart sound and no murmurs Jugular Venous Distention: Negative for other Palpation: Negative for palpable S3 Rate: regular rate Rhythm: Negative for abnormal rhythm GI normal to inspection, nondistended, normoactive bowel sounds, non-tender and non-distended Auscultation: normoactive bowel sounds Palpation: soft; Negative for tender or guarding Extremity normal to inspection; Negative for full ROM Extremity Narrative: Bilateral lower extremity weakness. Dorsi plantarflexion intact. Does have sensation. Partial paraplegia. No bony tenderness or deformity. Neuro oriented x3, moves all extremities and No no focal motor deficits Neuro Narrative: Bilateral lower extremity we did partial paraplegia. Sensorium / Orientation: alert, oriented to person, oriented to place and oriented to time Motor Exam: strength abnormal Psych mental status grossly normal and thought process normal Appearance: Negative for unkempt Attitude: No agitated Mood & Affect: Negative for depressed, anxious or tearful Skin no rashes or lesions noted, No no wounds, skin turgor normal and no jaundice Skin Narrative: Forehead laceration. PROC Procedures Lacerations Forehead laceration repair:: Length: 3 in Depth: Sub Q Shape: Linear Laceration repair: Lidocaine with epi and Local Number of Sutures/Jesus Alberto: 5 Suture Information: Ethilon, Simple and 5-0 Comment: Forehead laceration at the hairline. Linear. Approximately 3 inches. Small bleeding. Small hematoma. Local anesthetized with lidocaine with epinephrine. Cleaned with Shur-Clens. Washed and irrigated with saline. Explored. Closed using 5 simple interrupted 5-0 Ethilon sutures. Proper hemostasis wound closure obtained. Patient tolerated procedure well. MDM MDM MDM Narrative Medical decision making narrative: 48-year-old female resident of an area jail facility due to paraplegia. Fell to bed as a laceration of her forehead when she will need repaired. She is also complaining neck pain so I will obtain a CT of her brain and neck. Tetanus will be updated. Wound to be locally anesthetized and closed. Patient was placed in a c-collar due to mechanism of the fall and complaining of neck pain. Prior to going to CAT scan. Discharge Plan Triage Chief Complaint: Head Injury ED Provider: Renato Henson Dx/Rx/DC Orders Clinical Impression: History of paraplegia, Closed head injury, Laceration of forehead, Fall Instructions: ED Head Injury (Adult), ED Laceration: All Closures Prescriptions: No Action albuterol sulfate [Ventolin HFA] 90 mcg/actuation HFA aerosol inhaler 2 puff INHALATION PRN (Reason: SOB) amitriptyline 10 mg tablet 10 mg PO QHS baclofen 20 mg tablet 60 mg PO DAILY dantrolene 25 mg capsule 25 mg PO BID duloxetine 30 mg capsule,delayed release(DR/EC) 30 mg PO BID famotidine 20 mg tablet 20 mg PO BID fluorometholone 0.1 % drops,suspension 1 drp ophthalmic (eye) DAILY gabapentin 400 mg capsule 400 mg PO DAILY gabapentin 800 mg tablet 800 mg PO QHS ibuprofen 800 mg tablet 800 mg PO DAILY PRN (Reason: pain) clonazepam [Klonopin] 0.5 mg tablet 0.5 mg PO QHS PRN furosemide [Lasix] 20 mg tablet 20 mg PO DAILY loratadine 10 mg tablet 10 mg PO DAILY methocarbamol 500 mg tablet 1,000 mg PO TID nystatin 100,000 unit/gram powder 1 applic TOPICAL DAILY oxybutynin chloride 10 mg tablet extended release 24hr 10 mg PO DAILY promethazine 25 mg tablet 25 mg PO Q4H PRN tizanidine 4 mg tablet 8 mg PO QHS Primary Care Provider: Dawit Abreu Referrals: Dawit Abreu MD [Primary Care Provider] - 7 Days for suture removal Activity Restrictions/Additional Instructions: Clean wound daily with soap and water or peroxide and water. Stitches out in 7 days. Watch for any signs of infection is seen needs evaluated. Tetanus was updated. Head injury instructions. Tylenol for pain. Ice to the forehead 3 times a day for 30 minutes each time for the next 2 days. Disposition Disposition: Home, Self Care
[2023-05-17] MEDS: Lidocaine 1% /Epi 1:100 (20ml) 20 ML Vial 10 ML INFILT (06:21)
[2023-05-17] MEDS: Diphth,Pertuss(Acell),Tet Vac 0.5 ML Vial IM (06:22)
[2023-05-17] MEDS: Acetaminophen 500 MG Tablet 1000 MG PO (07:09)
[2023-05-17 07:50] VITALS: BP 118/67; PULSE 64; RESP 16; O2SAT 99
--- NOTE | 2023-05-17 07:56 | NURSING ---
called for ride, eta 20 min
== END 2023-05-17 08:38 | disposition home or self-care (01) ==
PROVIDERS: Emergency Provider Emergency Medicine; PCP Family Medicine; Visit Provider Emergency Medicine
DX: S01.81XA Laceration without foreign body of other part of head, initial encounter (principal); G82.20 Paraplegia, unspecified; F17.210 Nicotine dependence, cigarettes, uncomplicated; F32.A Depression, unspecified; Z79.899 Other long term (current) drug therapy; J45.909 Unspecified asthma, uncomplicated; S09.8XXA Other specified injuries of head, initial encounter; W06.XXXA Fall from bed, initial encounter; Y92.129 Unspecified place in nursing home as the place of occurrence of the external cause; Z23 Encounter for immunization
CPT/HCPCS: 12004; 70450; 72125; 90471; 90715; 99285

== ENCOUNTER → 2023-05-20 | Outpatient (REF) | payer MEDICAID, SELFPAY ==
[2023-05-20 07:44] LABS: Hemoglobin 13.9 g/dL (12.0-15.0); Mean Corp Hgb Conc 31.6 g/dL (32-36); Mean Corpuscular Hgb 32.7 pg (27.0-32.0); Mean Corpuscular Volume 103.5 fL (81-99); Platelet Count 170 K/mm3 (150-450); RBC Distribution Width CV 12.9 % (11.6-14.6); RBC Distribution Width SD 49.1 fl (35.1-43.9); Red Blood Count 4.25 M/mm3 (4.2-5.4); White Blood Count 6.4 K/mm3 (4.4-11.0)
[2023-05-20 07:55] LABS: Anion Gap 0 (5-15); BUN 22 mg/dL (7-18); BUN/Creat Ratio 28.2 RATIO (10-20); Calcium,Total 9.1 mg/dL (8.5-10.1); Chloride 108 mmol/L (98-107); Creatinine, Serum 0.78 mg/dL (0.55-1.02); EST Glomerular Filtration Rate 84 mL/min (>60); Est Glom Filt Rate - Afr Amer 102 mL/min (>60); Glucose 95 mg/dL (74-106); Sodium Level 141 mmol/L (136-145)
== END | disposition home or self-care (01) ==
LOC: OLS.SW 05:00
PROVIDERS: PCP Family Medicine; Visit Provider Family Medicine
DX: E66.9 Obesity, unspecified (principal)
CPT/HCPCS: 36415; 80048; 85027

== ENCOUNTER → 2023-06-04 | Outpatient (REF) | payer MEDICAID, SELFPAY ==
[2023-06-04 08:44] LABS: AST(SGOT) 8 U/L (15-37); Alanine Aminotransfer ALT/SGPT 12 U/L (13-56); Alkaline Phosphatase 108 U/L (45-117); Bilirubin, Direct 0.08 mg/dL (0.00-0.30); Globulin 3.9 g/dL (2.2-4.2); Protein, Total 6.9 g/dL (6.4-8.2)
[2023-06-04 08:46] LABS: Hemoglobin A1c 4.9 % (3.8-5.6)
== END | disposition home or self-care (01) ==
LOC: OLS.SW 05:00
PROVIDERS: PCP Family Medicine; Visit Provider Family Medicine
DX: E11.9 Type 2 diabetes mellitus without complications (principal)
CPT/HCPCS: 36415; 80076; 83036

== ENCOUNTER → 2023-06-17 | Outpatient (REF) | payer MEDICAID, SELFPAY ==
[2023-06-17 08:39] LABS: Hematocrit 42.1 % (37-47); Hemoglobin 13.8 g/dL (12.0-15.0); Mean Corp Hgb Conc 32.8 g/dL (32-36); Mean Corpuscular Hgb 32.5 pg (27.0-32.0); Mean Corpuscular Volume 99.3 fL (81-99); Mean Platelet Vol. 10.6 fl (6.2-12.0); Platelet Count 160 K/mm3 (150-450); RBC Distribution Width SD 47.4 fl (35.1-43.9); Red Blood Count 4.24 M/mm3 (4.2-5.4); White Blood Count 6.1 K/mm3 (4.4-11.0)
[2023-06-17 08:54] LABS: Anion Gap 14 (5-15); BUN 15 mg/dL (7-18); BUN/Creat Ratio 21.8 RATIO (10-20); Calcium,Total 7.4 mg/dL (8.5-10.1); Chloride 104 mmol/L (98-107); Creatinine, Serum 0.69 mg/dL (0.55-1.02); EST Glomerular Filtration Rate 97 mL/min (>60); Est Glom Filt Rate - Afr Amer 118 mL/min (>60); Glucose 85 mg/dL (74-106); Potassium 3.4 mmol/L (3.5-5.1); Sodium Level 140 mmol/L (136-145)
== END | disposition home or self-care (01) ==
LOC: OLS.SW 04:00
PROVIDERS: PCP Family Medicine; Visit Provider Family Medicine
DX: B18.1 Chronic viral hepatitis B without delta-agent (principal)
CPT/HCPCS: 36415; 80048; 85027

== ENCOUNTER → 2023-07-15 | Outpatient (REF) | payer MEDICAID, SELFPAY ==
[2023-07-15 08:38] LABS: Hematocrit 44.1 % (37-47); Hemoglobin 14.1 g/dL (12.0-15.0); Mean Corpuscular Hgb 32.4 pg (27.0-32.0); Mean Corpuscular Volume 101.4 fL (81-99); Mean Platelet Vol. 10.7 fl (6.2-12.0); Platelet Count 189 K/mm3 (150-450); RBC Distribution Width CV 13.2 % (11.6-14.6); RBC Distribution Width SD 49.1 fl (35.1-43.9); Red Blood Count 4.35 M/mm3 (4.2-5.4)
[2023-07-15 08:56] LABS: Anion Gap 3 (5-15); BUN 18 mg/dL (7-18); BUN/Creat Ratio 22.8 RATIO (10-20); Calcium,Total 8.7 mg/dL (8.5-10.1); Chloride 105 mmol/L (98-107); Creatinine, Serum 0.79 mg/dL (0.55-1.02); EST Glomerular Filtration Rate 83 mL/min (>60); Est Glom Filt Rate - Afr Amer 100 mL/min (>60); Glucose 123 mg/dL (74-106); Potassium 3.6 mmol/L (3.5-5.1); Sodium Level 141 mmol/L (136-145)
== END | disposition home or self-care (01) ==
LOC: OLS.SW 05:00
PROVIDERS: PCP Family Medicine; Visit Provider Family Medicine
DX: K75.9 Inflammatory liver disease, unspecified (principal)
CPT/HCPCS: 36415; 80048; 85027

== ENCOUNTER → 2023-08-12 | Outpatient (REF) | payer MEDICAID, SELFPAY ==
[2023-08-12 09:00] LABS: Hematocrit 42.5 % (37-47); Hemoglobin 13.7 g/dL (12.0-15.0); Mean Corp Hgb Conc 32.2 g/dL (32-36); Mean Corpuscular Hgb 32.6 pg (27.0-32.0); Mean Corpuscular Volume 101.2 fL (81-99); Platelet Count 172 K/mm3 (150-450); RBC Distribution Width CV 13.1 % (11.6-14.6); RBC Distribution Width SD 48.5 fl (35.1-43.9); White Blood Count 5.9 K/mm3 (4.4-11.0)
[2023-08-12 09:05] LABS: Anion Gap 5 (5-15); BUN 17 mg/dL (7-18); BUN/Creat Ratio 21.7 RATIO (10-20); Calcium,Total 8.6 mg/dL (8.5-10.1); Chloride 107 mmol/L (98-107); Creatinine, Serum 0.78 mg/dL (0.55-1.02); EST Glomerular Filtration Rate 84 mL/min (>60); Est Glom Filt Rate - Afr Amer 101 mL/min (>60); Glucose 102 mg/dL (74-106); Potassium 3.7 mmol/L (3.5-5.1); Sodium Level 145 mmol/L (136-145)
== END | disposition home or self-care (01) ==
LOC: OLS.SW 05:00
PROVIDERS: PCP Family Medicine; Visit Provider Family Medicine
DX: Z79.899 Other long term (current) drug therapy (principal)
CPT/HCPCS: 36415; 80048; 85027

== ENCOUNTER → 2023-11-18 | Outpatient (CLI) | payer MEDICAID, SELFPAY ==
[2023-11-18 15:32] LABS: Absolute Lymphocyte Count 1.97 X10^3/uL (0.83-4.51); Absolute Neutrophil Count 5.5 X10^3/uL (2.0-7.7); Basophil# 0.06 X10^3/uL; Basophil% 0.7 % (0-1); Eosinophil# 0.17 X10^3/uL; Hemoglobin 13.8 g/dL (12.0-15.0); Lymphocyte # 1.97 X10^3/ul (0.83-4.51); Lymphocyte % 23.5 % (19-41); Mean Corp Hgb Conc 32.9 g/dL (32-36); Mean Corpuscular Hgb 31.7 pg (27.0-32.0); Mean Corpuscular Volume 96.3 fL (81-99); Mean Platelet Vol. 10.9 fl (6.2-12.0); Monocyte# 0.59 X10^3/uL; NRBC Flagged by Analyzer 0 % (0-5); Neutrophil # 5.53 X10^3/uL (2.7-7.7); Neutrophil % 66.2 % (47-70); Platelet Count 246 K/mm3 (150-450); RBC Distribution Width CV 12.9 % (11.6-14.6); RBC Distribution Width SD 45.6 fl (35.1-43.9); Red Blood Count 4.36 M/mm3 (4.2-5.4); White Blood Count 8.4 K/mm3 (4.4-11.0)
[2023-11-18 15:43] LABS: Prothrombin Time (Protime)PT. 13.2 SECONDS (11.7-14.9)
[2023-11-18 16:06] LABS: Vitamin B12 403 pg/mL (211-911); Vitamin D,25 Hydroxy 31.2 ng/mL
[2023-11-18 16:24] LABS: ALB/GLOB Ratio 0.8 RATIO (0.9-2.4); AST(SGOT) 16 U/L (15-37); Alanine Aminotransfer ALT/SGPT 14 U/L (13-56); Albumin, Serum 3.4 g/dL (3.2-5.0); Alkaline Phosphatase 122 U/L (45-117); Anion Gap 6 (5-15); BUN 8 mg/dL (7-18); BUN/Creat Ratio 8.4 RATIO (10-20); Chloride 104 mmol/L (98-107); Cholesterol 157 mg/dL (200); Creatinine, Serum 0.95 mg/dL (0.55-1.02); EST Glomerular Filtration Rate 67 mL/min (>60); Est Glom Filt Rate - Afr Amer 81 mL/min (>60); Globulin 4.4 g/dL (2.2-4.2); Glucose 90 mg/dL (74-106); High Density Lipoprotein 48 mg/dL; Potassium 3.1 mmol/L (3.5-5.1); Protein, Total 7.8 g/dL (6.4-8.2); Sodium Level 138 mmol/L (136-145); T4 Free Direct 1.16 ng/dL (0.76-1.46); Triglycerides 147 mg/dL; Very Low Density Lipoprotein 29 mg/dL (5-40)
[2023-11-20 20:08] LABS: AFP, Tumor Marker 2.3 ng/mL (0.0-6.4); HCV Quant. RNA PCR HCV Not Detected IU/mL (.)
== END | disposition home or self-care (01) ==
LOC: BFHLAB 13:59
PROVIDERS: PCP Family Medicine; Visit Provider Family Medicine
DX: K72.90 Hepatic failure, unspecified without coma (principal); G62.9 Polyneuropathy, unspecified; R53.83 Other fatigue; E78.5 Hyperlipidemia, unspecified; B19.20 Unspecified viral hepatitis C without hepatic coma
CPT/HCPCS: 36415; 80053; 80061; 82105; 82306; 82607; 84439; 84443; 85025; 85610; 87522

== ENCOUNTER → 2023-11-22 | Outpatient (CLI) | payer MEDICAID, SELFPAY ==
[2023-11-22 18:12] LABS: AST(SGOT) 17 U/L (15-37); Alanine Aminotransfer ALT/SGPT 19 U/L (13-56); Albumin, Serum 3.3 g/dL (3.2-5.0); Alkaline Phosphatase 106 U/L (45-117); Bilirubin, Direct 0.13 mg/dL (0.00-0.30); Globulin 4.2 g/dL (2.2-4.2); Protein, Total 7.5 g/dL (6.4-8.2)
[2023-11-22 18:17] LABS: Hepatitis B Surface Antibody Reactive; Hepatitis B Surface Antigen Non-Reactive (Nonreactive)
[2023-11-24 08:08] LABS: AFP, Tumor Marker 2.4 ng/mL (0.0-6.4)
== END | disposition home or self-care (01) ==
LOC: MTLAB 15:20
PROVIDERS: PCP Family Medicine; Referring Provider Internal Medicine Gastroenterology; Visit Provider Internal Medicine Gastroenterology
DX: B18.1 Chronic viral hepatitis B without delta-agent (principal); I48.91 Unspecified atrial fibrillation
CPT/HCPCS: 36415; 80076; 82105; 86706; 87340

== ENCOUNTER 2023-12-07 04:38 | Emergency (ER) | payer MEDICAID, SELFPAY ==
[2023-12-07 04:39] VITALS: BP 109/83; PULSE 74; RESP 16; TEMP 35.7; O2SAT 98; BMI 49.9
--- NOTE | 2023-12-07 04:53 | EDS_ITS ---
HPI History of Present Illness Chief Complaint: Lower Extremity Injury Informant: patient Onset/Context/Timing Onset: Yesterday Narrative Narrative: Patient presents via EMS from [facility]. She states she is currently in assisted living and fell yesterday around noon. She states she will usually stand from a chair, turn to pivot, and sit in a wheelchair. As she was doing this yesterday her legs gave out on her and she fell injuring her right ankle. She states she had right tib-fib x-rays done via portable service yesterday afternoon and the report showed a tibia/fibula fracture. Patient states they encouraged her to come to the emergency room but she was afraid that she would be forced to go back to her retirement. She called EMS early this morning secondary to pain. PFSH PFSH Medical History Alcohol abuse Asthma Bipolar 1 disorder Depression Hepatitis IVDU (intravenous drug user) Muscle weakness (generalized) Opiate dependence Polysubstance (including opioids) dependence, daily use Smoker Home Medications albuterol sulfate 90 mcg/actuation aerosol inhaler (Ventolin HFA) 2 puff inhalation PRN SOB 05/17/23 [History Last Taken Unknown] amitriptyline 10 mg tablet 10 mg PO QHS 05/17/23 [History Last Taken Unknown] baclofen 20 mg tablet 60 mg PO DAILY 05/17/23 [History Last Taken Unknown] clonazepam 0.5 mg tablet (Klonopin) 0.5 mg PO QHS PRN 05/17/23 [History Last Taken Unknown] dantrolene 25 mg capsule 25 mg PO BID 05/17/23 [History Last Taken Unknown] duloxetine 30 mg capsule,delayed release 30 mg PO BID 05/17/23 [History Last Taken Unknown] famotidine 20 mg tablet 20 mg PO BID 05/17/23 [History Last Taken Unknown] fluorometholone 0.1 % eye drops,suspension 1 drp ophthalmic (eye) DAILY 05/17/23 [History Last Taken Unknown] furosemide 20 mg tablet (Lasix) 20 mg PO DAILY 05/17/23 [History Last Taken Unknown] gabapentin 400 mg capsule 400 mg PO DAILY 05/17/23 [History Last Taken Unknown] gabapentin 800 mg tablet 800 mg PO QHS 05/17/23 [History Last Taken Unknown] ibuprofen 800 mg tablet 800 mg PO DAILY PRN pain 05/17/23 [History Last Taken Unknown] loratadine 10 mg tablet 10 mg PO DAILY 05/17/23 [History Last Taken Unknown] methocarbamol 500 mg tablet 1,000 mg PO TID 05/17/23 [History Last Taken Unknown] nystatin 100,000 unit/gram topical powder 1 applic topical DAILY 05/17/23 [History Last Taken Unknown] oxybutynin chloride 10 mg tablet,extended release 24 hr 10 mg PO DAILY 05/17/23 [History Last Taken Unknown] promethazine 25 mg tablet 25 mg PO Q4H PRN 05/17/23 [History Last Taken Unknown] tizanidine 4 mg tablet 8 mg PO QHS 05/17/23 [History Last Taken Unknown] oxycodone 5 mg tablet 5 mg PO Q6H PRN pain 3 days #14 tabs 12/07/23 [Rx Last Taken Unknown] Allergy/AdvReac Type Severity Reaction Status Date / Time hydrocodone bitartrate Allergy Itching Verified 12/07/23 04:39 [From Vicodin] Surgical History History of cholecystectomy Social History Smoking Status: Current every day smoker tobacco type: cigarettes ROS ROS ED Constitutional Constitutional ED: Denies chills or fever(s) Eyes Eyes: Denies change in vision or discharge from eye(s) ENT ENT ED: Denies discharge from eye(s), rhinorrhea or sore throat Cardiovascular Cardiovascular: Denies chest pain or palpitations Respiratory/Chest Respiratory/Chest: Denies cough or dyspnea Gastrointestinal Gastrointestinal: Denies abdominal pain, nausea or vomiting Genitourinary Genitourinary ED: Denies dysuria Musculoskeletal Musculoskeletal: Reports extremity pain; Denies back pain Integumentary Denies Abrasions or rash Neurologic Neurologic: Reports weakness; Denies headache(s) Allergic/Immunologic Allergic/Immunologic ED: Denies lip swelling or urticaria EXAM Physical Exam Const Vital Signs: 12/07/23 04:39 12/07/23 05:23 12/07/23 07:59 Temperature 96.3 F L Temperature Source Temporal Pulse Rate 74 68 Respiratory Rate 16 19 H 16 Blood Pressure 109/83 H 98/59 L 106/58 L Blood Pressure Mean 91 72 74 Pulse Ox 98 95 95 Oxygen Delivery Method Room Air Room Air Positive well nourished and well developed General Appearance ED: well developed HEENT Reports moist mucous membranes Eyes EOMs intact bilaterally Chest Wall inspection of chest normal and palpation of chest normal Resp normal respiratory effort and clear to auscultation bilaterally Cardio regular rate and regular rhythm GI non-tender Palpation: soft Extremity Extremity Narrative: Mild edema noted to the left ankle with tenderness. No tenderness of the foot itself. No tenderness at the knee or proximal fibula. No abrasions or open wounds. Psych mental status grossly normal MDM MDM MDM Narrative Medical decision making narrative: Patient given a dose of oxycodone here. Patient does have a history of polysubstance abuse. I did address this with her and she states she has been clean for the last 3 years. We discussed that she has a legitimate reason for pain at this time and she is now in a controlled environment. I am not able to see the x-rays that she had performed yesterday afternoon so right ankle x-rays will be repeated at this time. Radiography Diagnostic Testing: Clinical Impression(s) from Imaging Studies Ankle X-Ray 12/07/23 05:00 IMPRESSION: 1. Moderate soft tissue swelling. 2. At least medial and lateral malleoli acute fractures. 3. Small displaced fracture fragment in the lateral joint. 4. Asymmetry of the tibiotalar joint on the lateral view, but an additional posterior malleolus fracture is not clearly seen. Advanced demineralization for age. Electronically Signed: Janel Mera MD at 6:44 EDT , Treatment and Re-Evaluation :: Right ankle x-rays per my interpretation appear to show medial and lateral malleoli fractures. Radiology interpretation is reviewed and they, that the posterior cannot be seen well. CT scan of the right ankle is obtained and confirms both medial and lateral fractures. I spoke with Dr. Price who reviewed her images. Given her poor bone density and limited mobility at baseline, plan will be to treat this nonoperatively. Patient is placed in a splint at this time and when she follows up in the office will be switched out to a cast. Patient was asked multiple times if she feels that she can get around at home with not putting any weight on her right leg and she is insistent that she can do this. I will give her prescription for analgesics. She is to call Dr. Price's office on Saturday for follow-up. Procedures Lower Extremity Splints Lower Extremity Splint: Orthoglass and - (Posterior splint with sugar-tong) Splint Fabrication: Fabricated Location: Right Discharge Plan Triage Chief Complaint: Lower Extremity Injury ED Provider: Sarah Saucedo Dx/Rx/DC Orders Clinical Impression: Bimalleolar ankle fracture Instructions: ED Ankle Fracture Prescriptions: New oxycodone 5 mg tablet 5 mg PO Q6H PRN (Reason: pain) 3 Days Qty: 14 0RF No Action albuterol sulfate [Ventolin HFA] 90 mcg/actuation HFA aerosol inhaler 2 puff INHALATION PRN (Reason: SOB) amitriptyline 10 mg tablet 10 mg PO QHS baclofen 20 mg tablet 60 mg PO DAILY dantrolene 25 mg capsule 25 mg PO BID duloxetine 30 mg capsule,delayed release(DR/EC) 30 mg PO BID famotidine 20 mg tablet 20 mg PO BID fluorometholone 0.1 % drops,suspension 1 drp ophthalmic (eye) DAILY gabapentin 400 mg capsule 400 mg PO DAILY gabapentin 800 mg tablet 800 mg PO QHS ibuprofen 800 mg tablet 800 mg PO DAILY PRN (Reason: pain) clonazepam [Klonopin] 0.5 mg tablet 0.5 mg PO QHS PRN furosemide [Lasix] 20 mg tablet 20 mg PO DAILY loratadine 10 mg tablet 10 mg PO DAILY methocarbamol 500 mg tablet 1,000 mg PO TID nystatin 100,000 unit/gram powder 1 applic TOPICAL DAILY oxybutynin chloride 10 mg tablet extended release 24hr 10 mg PO DAILY promethazine 25 mg tablet 25 mg PO Q4H PRN tizanidine 4 mg tablet 8 mg PO QHS Primary Care Provider: Taye Pinto Referrals: Linus Price DPM [Med Staff - Active Staff] - 5-7 Days Taye Pinto DO [Primary Care Provider] - Disposition Disposition: Home, Self Care
[2023-12-07] MEDS: oxyCODONE 5 MG Tablet PO (04:58)
--- NOTE | 2023-12-07 05:00 | RAD_ITS ---
EXAM: XR RIGHT ANKLE COMPLETE, 3 OR MORE VIEWS CLINICAL INDICATION: injury TECHNIQUE: Frontal, lateral and oblique views of the right ankle. COMPARISON: No relevant prior studies available. FINDINGS: BONES/JOINTS: Transverse fracture through the mid medial malleolus and short oblique fracture at the base of the lateral malleolus, both best seen on the oblique view. Displaced fragment between the lateral malleolus and the talus on the mortise view. Diffuse prominent demineralization. Asymmetry of the tibiotalar joint on the lateral view, narrowed posteriorly. No sclerotic or destructive changes observed. SOFT TISSUES: Medial and lateral moderate soft tissue swelling at the ankle. No radiopaque foreign body. RAD/Ankle min 3 Views IMPRESSION: 1. Moderate soft tissue swelling. 2. At least medial and lateral malleoli acute fractures. 3. Small displaced fracture fragment in the lateral joint. 4. Asymmetry of the tibiotalar joint on the lateral view, but an additional posterior malleolus fracture is not clearly seen. Advanced demineralization for age. Electronically Signed: Janel Mera MD at 6:44 EDT ,
[2023-12-07 05:23] VITALS: BP 98/59; RESP 19; O2SAT 95
--- NOTE | 2023-12-07 06:54 | CT_ITS ---
STUDY: CT RIGHT ANKLE WITHOUT CONTRAST REASON FOR EXAM: Female, 48 years old. Ankle fracture RADIATION DOSAGE (If Supplied By Facility): CTDIvol = ( 15.35 ) mGy, DLP = ( 326.9 ) mGycm TECHNIQUE: Thin section transaxial imaging of the ankle was obtained, with sagittal and coronal reconstructed images. Individualized dose optimization techniques were used for this CT. COMPARISON: X-ray of the right ankle dated December 07, 2023 FINDINGS: An acute mildly displaced horizontal fracture is present throughout the full width of the proximal medial malleolus. Redemonstration of an acute oblique fracture of the distal one third lateral fibula/lateral malleolar junction with mild displacement/cortical offset. The adjacent soft tissues are mildly to moderately swollen. No additional acute fractures of the remaining ankle bony structures are present. The bony structures are demineralized. Small corticated ossicle at the dorsal surface of the calcaneocuboid articulation is likely an unfused apophysis. Normal tibiotalar articulation and talar dome. Normal talus, calcaneus, navicular and cuboid tarsal bones. Normal subtalar, talonavicular and calcaneocuboid articulations. Normal navicular-cuneiform, cuneiform tarsal bones and intercuneiform articulations. Normal tarsometatarsal articulations and visualized metatarsi. CT/Extremity Lower without Contra IMPRESSION: 1. Acute displaced fracture of the medial malleolus 2. Acute distal one third fibular/lateral malleolar junction fracture Electronically Signed: Masoud Duncan MD at 8:33 EDT ,
[2023-12-07 07:59] VITALS: BP 106/58; PULSE 68; RESP 16; O2SAT 95
--- NOTE | 2023-12-07 08:33 | ED.RN ---
pt unable to maneuver out of a regular wc d/t how low it is. uses elevated scooter at home. now nonweight bearing d/t fractures.
--- NOTE | 2023-12-07 08:36 | ED.RN ---
FRANC CALLEDPREET WITHIN THE HOUR (BEFORE 0935)
[2023-12-07 08:37] VITALS: BP 118/76; PULSE 66; RESP 16; TEMP 36.6; O2SAT 98
== END 2023-12-07 09:29 | disposition home or self-care (01) ==
PROVIDERS: Emergency Provider Emergency Medicine; PCP Family Medicine; Visit Provider Emergency Medicine
DX: S82.841A Displaced bimalleolar fracture of right lower leg, initial encounter for closed fracture (principal); F17.210 Nicotine dependence, cigarettes, uncomplicated; K75.9 Inflammatory liver disease, unspecified; F32.A Depression, unspecified; Z79.899 Other long term (current) drug therapy; Z90.49 Acquired absence of other specified parts of digestive tract; W17.89XA Other fall from one level to another, initial encounter; Y93.89 Activity, other specified; Y92.89 Other specified places as the place of occurrence of the external cause
CPT/HCPCS: 73610; 73700; 99282; A4216

== ENCOUNTER 2024-01-19 21:07 | Emergency (ER) | payer MEDICAID, SELFPAY ==
[2024-01-19 21:07] VITALS: BP 107/73; PULSE 83; RESP 16; TEMP 36.8; O2SAT 98
--- NOTE | 2024-01-19 21:15 | EDS_ITS ---
HPI History of Present Illness Chief Complaint: Schmitt C/O Detail of Chief Complaint: Concern patient's suprapubic catheter is not working well and that she has Informant: patient Onset/Context/Timing Onset: Days Context: Sudden Onset Timing: Intermittent Quality: Incontinence with irritation of the vaginal region. Current Severity: Mild Maximum Severity: Moderate Worsened by: Urinary incontinence Relieved by: Nothing Associated Symptoms Associated Symptoms: Subjective fever yesterday without chills Narrative Narrative: patient is a 48-year-old morbidly obese female who has a suprapubic catheter in place. Has not been changed for 2 months. She states her significant mount of debris. She also reporting concern regarding drainage. She has had incontinence and irritation of the genital region. She reported subjective fever yesterday. She did not have chills. She denies nausea, vomiting diarrhea. She denies low back pain or flank pain. She denies skin rash on her abdomen or back. She has no other complaints. Prior similar symptoms: Yes Recent Illness/Hospitalization: No PFSH PFSH Medical History Acute embolism and thrombosis of unspecified deep veins of left lower extremity Alcohol abuse Arthropathy Asthma Bipolar 1 disorder Cognitive communication deficit Depression Functional dyspepsia Hepatitis IVDU (intravenous drug user) Muscle weakness (generalized) Opiate dependence Polysubstance (including opioids) dependence, daily use Smoker Home Medications albuterol sulfate 90 mcg/actuation aerosol inhaler (Ventolin HFA) 2 puff inhalation PRN SOB 05/17/23 [History Last Taken Unknown] amitriptyline 10 mg tablet 10 mg PO QHS 05/17/23 [History Last Taken Unknown] baclofen 20 mg tablet 60 mg PO DAILY 05/17/23 [History Last Taken Unknown] clonazepam 0.5 mg tablet (Klonopin) 0.5 mg PO QHS PRN 05/17/23 [History Last Taken Unknown] dantrolene 25 mg capsule 25 mg PO BID 05/17/23 [History Last Taken Unknown] duloxetine 30 mg capsule,delayed release 30 mg PO BID 05/17/23 [History Last Taken Unknown] famotidine 20 mg tablet 20 mg PO BID 05/17/23 [History Last Taken Unknown] fluorometholone 0.1 % eye drops,suspension 1 drp ophthalmic (eye) DAILY 05/17/23 [History Last Taken Unknown] furosemide 20 mg tablet (Lasix) 20 mg PO DAILY 05/17/23 [History Last Taken Unknown] gabapentin 400 mg capsule 400 mg PO DAILY 05/17/23 [History Last Taken Unknown] gabapentin 800 mg tablet 800 mg PO QHS 05/17/23 [History Last Taken Unknown] ibuprofen 800 mg tablet 800 mg PO DAILY PRN pain 05/17/23 [History Last Taken Unknown] loratadine 10 mg tablet 10 mg PO DAILY 05/17/23 [History Last Taken Unknown] methocarbamol 500 mg tablet 1,000 mg PO TID 05/17/23 [History Last Taken Unknown] nystatin 100,000 unit/gram topical powder 1 applic topical DAILY 05/17/23 [History Last Taken Unknown] oxybutynin chloride 10 mg tablet,extended release 24 hr 10 mg PO DAILY 05/17/23 [History Last Taken Unknown] promethazine 25 mg tablet 25 mg PO Q4H PRN 05/17/23 [History Last Taken Unknown] tizanidine 4 mg tablet 8 mg PO QHS 05/17/23 [History Last Taken Unknown] oxycodone 5 mg tablet 5 mg PO Q6H PRN pain 3 days #14 tabs 12/07/23 [Rx Last Taken Unknown] atorvastatin 20 mg tablet 20 mg PO DAILY 01/19/24 [History Last Taken Unknown] coenzyme Q10 100 mg capsule 100 mg PO DAILY 01/19/24 [History Last Taken Unknown] docusate sodium 100 mg tablet (DOK) 100 mg PO DAILY 01/19/24 [History Last Taken Unknown] multivitamin 1 tab PO DAILY 01/19/24 [History Last Taken Unknown] pantoprazole 40 mg tablet,delayed release 40 mg PO DAILY 01/19/24 [History Last Taken Unknown] Allergy/AdvReac Type Severity Reaction Status Date / Time hydrocodone bitartrate Allergy Itching Verified 01/19/24 21:10 [From Vicodin] Surgical History Chronic suprapubic catheter History of cholecystectomy Social History Smoking Status: Current every day smoker tobacco type: cigarettes ROS ROS ED Constitutional Constitutional ED: Reports fever(s) and subjective; Denies chills or sweats Eyes Eyes: Denies blurry vision or change in vision Gastrointestinal Gastrointestinal: Denies abdominal pain, nausea or vomiting Genitourinary Genitourinary ED: Reports dysuria, urinary frequency and other Details: Also complains of incontinence. ; Denies hematuria Musculoskeletal Musculoskeletal: Denies arthralgias, back pain or myalgias Integumentary Reports rash Hematologic/Lymphatic Hematologic/Lymphatic: Reports systems reviewed and no addt'l complaints, except as documented EXAM Physical Exam Const Vital Signs: 01/19/24 21:07 01/19/24 22:33 Temperature 98.3 F Temperature Source Temporal Pulse Rate 83 81 Respiratory Rate 16 20 H Blood Pressure 107/73 130/69 H Blood Pressure Mean 84 89 Pulse Ox 98 99 Oxygen Delivery Method Room Air Room Air Positive well nourished, well developed and obese General Appearance ED: well developed and NAD; Negative for cyanotic or diaphoretic Nutritional Appearance: obese HEENT Reports moist mucous membranes HEENT Narrative: Atraumatic normocephalic. Ears normal. Eyes PERRL and EOMs intact bilaterally General Eye ED: Negative for scleral icterus Resp normal respiratory effort and clear to auscultation bilaterally Cardio regular rate and regular rhythm GI normal to inspection, nondistended, normoactive bowel sounds, non-tender, non- distended and no masses; Negative for hepatosplenomegaly Narrative: External genitalia reveals a yeast infection. There is slight irritation of the urethra opening. There is no [place] lymphadenopathy. There is no evidence of cellulitis. 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 Also nurse was asked to get a 24 Bulgarian three-way for me to replace her suprapubic catheter since it is full of debris. Will obtain CBC to assess white count differential. BMP to assess renal function, glucose CO2 anion gap. UA was obtained because of concern for infection. Differential for dysuria is urinary tract infection, chemical dermatitis due to incontinence, vaginal/pelvic infection. Lab Data Attestation: I reviewed the patient's lab results. Lab results narrative: CBC and differential are normal. H&H is normal. Basic metabolic panel reveals elevated CO2. Patient had elevated CO2 in the past. Basic metabolic panel is otherwise unremarkable. Macro urinalysis is remarkable for protein, occult blood and leukoesterase. Negative for nitrites. Microscopic is pending. Microscopic reveals 0-5 RBCs with 50-100 WBCs and 3+ bacteria. Culture was sent. Review of prior culture and sensitivities indicates patient had Pseudomonas aeruginosa, MRSA, Morganella. Review of sensitivity reports for prior infections it was noted that prior organisms were sensitive to Bactrim. Therefore we will treat with Bactrim since she does not have contraindication. Labs: Laboratory Results - last 24 hr 01/19/24 01/19/24 22:11 22:46 WBC 6.9 RBC 4.46 Hgb 14.3 Hct 42.8 MCV 96.0 MCH 32.1 H MCHC 33.4 RDW Std Deviation 43.5 RDW Coeff of Katie 12.3 Plt Count 225 MPV 10.4 Immature Gran % (Auto) 0.300 Neut % (Auto) 58.3 Lymph % (Auto) 30.9 Lyon % (Auto) 7.4 Eos % (Auto) 2.2 Baso % (Auto) 0.9 Absolute Neuts (auto) 4.0 Absolute Lymphs (auto) 2.12 Nucleated RBC % 0 Sodium 138 Potassium 3.3 L Chloride 101 Carbon Dioxide 34.0 H Anion Gap 3 L BUN 16 Creatinine 0.90 Est GFR (MDRD) Af Amer 86 Est GFR (MDRD) Non-Af 71 BUN/Creatinine Ratio 17.9 Glucose 88 Calcium 9.0 Urine Color Yellow Urine Clarity Cloudy Urine pH 7.0 Ur Specific [place] 1.010 Urine Protein 100 H Urine Glucose (UA) Normal Urine Ketones Negative Urine Occult Blood 150 H Urine Nitrite Negative Urine Bilirubin Negative Urine Urobilinogen Normal Ur Leukocyte Esterase 500 H Urine RBC 0-5 SEEN Urine WBC 50-100 SEEN Ur Squamous Epith Cells 0 SEEN Ur Transition Epith Cell 0-5 SEEN Urine Bacteria 3+ Urine Mucus 0 SEEN Procedures Other Procedures Procedure(s): Exchanged suprapubic catheter. Patient had a 24 Bulgarian three-way was replaced with a 24 Bulgarian three-way. This was done with the assistance of the nurse without complication. Discharge Plan Triage Chief Complaint: Schmitt C/O ED Provider: Bradly Eden Dx/Rx/DC Orders Clinical Impression: Encounter for suprapubic catheter care, Yeast vaginitis, Complicated urinary tract infection, History of chronic carbon dioxide retention, Elevated blood pressure reading without diagnosis of hypertension Prescriptions: No Action albuterol sulfate [Ventolin HFA] 90 mcg/actuation HFA aerosol inhaler 2 puff INHALATION PRN (Reason: SOB) amitriptyline 10 mg tablet 10 mg PO QHS baclofen 20 mg tablet 60 mg PO DAILY dantrolene 25 mg capsule 25 mg PO BID duloxetine 30 mg capsule,delayed release(DR/EC) 30 mg PO BID famotidine 20 mg tablet 20 mg PO BID fluorometholone 0.1 % drops,suspension 1 drp ophthalmic (eye) DAILY gabapentin 400 mg capsule 400 mg PO DAILY gabapentin 800 mg tablet 800 mg PO QHS ibuprofen 800 mg tablet 800 mg PO DAILY PRN (Reason: pain) clonazepam [Klonopin] 0.5 mg tablet 0.5 mg PO QHS PRN furosemide [Lasix] 20 mg tablet 20 mg PO DAILY loratadine 10 mg tablet 10 mg PO DAILY methocarbamol 500 mg tablet 1,000 mg PO TID nystatin 100,000 unit/gram powder 1 applic TOPICAL DAILY oxybutynin chloride 10 mg tablet extended release 24hr 10 mg PO DAILY promethazine 25 mg tablet 25 mg PO Q4H PRN tizanidine 4 mg tablet 8 mg PO QHS multivitamin Tablet 1 tab PO DAILY atorvastatin 20 mg tablet 20 mg PO DAILY pantoprazole 40 mg tablet,delayed release (DR/EC) 40 mg PO DAILY docusate sodium [DOK] 100 mg tablet 100 mg PO DAILY coenzyme Q10 100 mg capsule 100 mg PO DAILY oxycodone 5 mg tablet 5 mg PO Q6H PRN (Reason: pain) 3 Days Qty: 14 0RF Primary Care Provider: Taye Pinot Referrals: Taye Pinto DO [Primary Care Provider] - 3-5 Days if not improving Disposition Disposition: Home, Self Care
--- NOTE | 2024-01-19 22:16 | ED.RN ---
2210: SUPRAPUBIC CATHETER PLACED BY David KRUGER REPLACED WITH 3-WAY.
[2024-01-19 22:32] LABS: Anion Gap 3 (5-15); BUN 16 mg/dL (7-18); BUN/Creat Ratio 17.9 RATIO (10-20); Chloride 101 mmol/L (98-107); EST Glomerular Filtration Rate 71 mL/min (>60); Est Glom Filt Rate - Afr Amer 86 mL/min (>60); Glucose 88 mg/dL (74-106); Potassium 3.3 mmol/L (3.5-5.1); Sodium Level 138 mmol/L (136-145)
[2024-01-19 22:33] VITALS: BP 130/69; PULSE 81; RESP 20; O2SAT 99
[2024-01-19 22:34] LABS: Absolute Lymphocyte Count 2.12 X10^3/uL (0.83-4.51); Basophil# 0.06 X10^3/uL; Basophil% 0.9 % (0-1); Eosinophil# 0.15 X10^3/uL; Eosinophils% 2.2 % (0-5); Hematocrit 42.8 % (37-47); Hemoglobin 14.3 g/dL (12.0-15.0); Lymphocyte # 2.12 X10^3/ul (0.83-4.51); Lymphocyte % 30.9 % (19-41); Mean Corp Hgb Conc 33.4 g/dL (32-36); Mean Corpuscular Hgb 32.1 pg (27.0-32.0); Mean Platelet Vol. 10.4 fl (6.2-12.0); Monocyte# 0.51 X10^3/uL; Monocyte% 7.4 % (0-10); NRBC Flagged by Analyzer 0 % (0-5); Neutrophil # 3.99 X10^3/uL (2.7-7.7); Neutrophil % 58.3 % (47-70); Platelet Count 225 K/mm3 (150-450); RBC Distribution Width CV 12.3 % (11.6-14.6); RBC Distribution Width SD 43.5 fl (35.1-43.9); Red Blood Count 4.46 M/mm3 (4.2-5.4); White Blood Count 6.9 K/mm3 (4.4-11.0)
[2024-01-19] MEDS: Fluconazole 100 MG Tablet 200 MG PO (22:44)
[2024-01-19 22:50] LABS: Mucous, Urine 0 SEEN /hpf (<or=2+); Squamous Epithelial Cells - UA 0 SEEN /hpf (5-10)
[2024-01-19 22:52] LABS: Color, Urine Yellow (Yellow); Glucose, Dipstick Normal (Normal); Ketone-Dipstick Negative (Negative); Leukocyte Esterase-Dipstick 500 /ul (Negative); Nitrite-Dipstick Negative (Negative); Occult Blood-Urine 150 /ul (Negative); Protein-Dipstick 100 mg/dl (Negative); Urine Bilirubin Dipstick Negative (Negative); Urine Clarity Cloudy (Clear); Urine Urobilinogen Normal (Normal)
--- NOTE | 2024-01-19 23:19 | ED.RN ---
attempted to call report to [facility] Sahil, no answer. I left a voicemail for a call back
[2024-01-19 23:24] LABS: Bacteria 3+ /hpf (None Seen); Red Blood Cells-Urine 0-5 SEEN /hpf (0-5); Transitional Epithelial - Ur 0-5 SEEN /hpf (0-5); White Blood Cells 50-100 SEEN /hpf (0-5)
--- NOTE | 2024-01-19 23:39 | ED.RN ---
call pt and left message that the pt needs antibiotics and need to notify us reguarding where she would like the rx to be sent if [facility] rx is not to her liking.Advised her to call back.
--- NOTE | 2024-01-19 23:40 | ED.RN ---
2338: patient left prior to discharge instructions, unable to receive antibiotics at this time d/t elopement. 2341: [facility] called, nurses aid answered phone. No nurses in the building at this time. He informed me I will leave a note for the nurses
== END 2024-01-19 23:45 | disposition home or self-care (01) ==
PROVIDERS: Emergency Provider Emergency Medicine; PCP Family Medicine; Visit Provider Emergency Medicine
DX: T83.018A Breakdown (mechanical) of other urinary catheter, initial encounter (principal); E66.01 Morbid (severe) obesity due to excess calories; B37.31 Acute candidiasis of vulva and vagina; F17.210 Nicotine dependence, cigarettes, uncomplicated; F32.A Depression, unspecified; Z90.49 Acquired absence of other specified parts of digestive tract; N39.0 Urinary tract infection, site not specified; R03.0 Elevated blood-pressure reading, without diagnosis of hypertension
CPT/HCPCS: 80048; 81001; 85025; 87077; 87086; 87088; 87186; 99282; A4216

== ENCOUNTER 2024-03-12 16:19 | Emergency (ER) | payer MEDICAID, SELFPAY ==
[2024-03-12 16:20] VITALS: BP 126/90; PULSE 95; RESP 16; TEMP 36.3; O2SAT 95; BMI 45.6
--- NOTE | 2024-03-12 16:50 | EX.ED.DYSGE1 ---
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 Patient denies any systemic symptoms or fever/chills. PFSH PFSH Medical History Functional dyspepsia Acute embolism and thrombosis of unspecified deep veins of left lower extremity Cognitive communication deficit Arthropathy Bipolar 1 disorder Muscle weakness (generalized) Hepatitis Smoker Asthma IVDU (intravenous drug user) Polysubstance (including opioids) dependence, daily use Opiate dependence Depression Alcohol abuse Home Medications ?Medication ?Instructions ?Recorded ?Last Taken ?Type albuterol sulfate 90 mcg/actuation 2 puff inhalation PRN SOB 05/17/23 Unknown History aerosol inhaler (Ventolin HFA) amitriptyline 10 mg tablet 10 mg PO QHS 05/17/23 Unknown History baclofen 20 mg tablet 60 mg PO DAILY 05/17/23 Unknown History clonazepam 0.5 mg tablet (Klonopin) 0.5 mg PO QHS PRN 05/17/23 Unknown History dantrolene 25 mg capsule 25 mg PO BID 05/17/23 Unknown History duloxetine 30 mg capsule,delayed 30 mg PO BID 05/17/23 Unknown History release famotidine 20 mg tablet 20 mg PO BID 05/17/23 Unknown History fluorometholone 0.1 % eye 1 drp ophthalmic (eye) DAILY 05/17/23 Unknown History drops,suspension furosemide 20 mg tablet (Lasix) 20 mg PO DAILY 05/17/23 Unknown History gabapentin 400 mg capsule 400 mg PO DAILY 05/17/23 Unknown History gabapentin 800 mg tablet 800 mg PO QHS 05/17/23 Unknown History ibuprofen 800 mg tablet 800 mg PO DAILY PRN pain 05/17/23 Unknown History loratadine 10 mg tablet 10 mg PO DAILY 05/17/23 Unknown History methocarbamol 500 mg tablet 1,000 mg PO TID 05/17/23 Unknown History nystatin 100,000 unit/gram topical 1 applic topical DAILY 05/17/23 Unknown History powder oxybutynin chloride 10 mg 10 mg PO DAILY 05/17/23 Unknown History tablet,extended release 24 hr promethazine 25 mg tablet 25 mg PO Q4H PRN 05/17/23 Unknown History tizanidine 4 mg tablet 8 mg PO QHS 05/17/23 Unknown History oxycodone 5 mg tablet 5 mg PO Q6H PRN pain 3 days #14 12/07/23 Unknown Rx tabs atorvastatin 20 mg tablet 20 mg PO DAILY 01/19/24 Unknown History coenzyme Q10 100 mg capsule 100 mg PO DAILY 01/19/24 Unknown History docusate sodium 100 mg tablet (DOK) 100 mg PO DAILY 01/19/24 Unknown History multivitamin 1 tab PO DAILY 01/19/24 Unknown History pantoprazole 40 mg tablet,delayed 40 mg PO DAILY 01/19/24 Unknown History release cephalexin 500 mg capsule 500 mg PO Q6 #28 CAPSULES 01/24/24 Unknown Rx sulfamethoxazole 800 1 tab PO BID #20 TABLETS 03/12/24 Unknown Rx mg-trimethoprim 160 mg tablet Allergy/AdvReac Type Severity Reaction Status Date / Time hydrocodone bitartrate (From Allergy Itching Verified 03/12/24 16:20 Vicodin) Surgical History Chronic suprapubic catheter History of cholecystectomy Social History household members: none Smoking Status: Current every day smoker tobacco type: cigarettes ROS ROS ED Constitutional Constitutional ED: Denies chills or fever(s) Gastrointestinal Gastrointestinal: Denies nausea or vomiting Musculoskeletal Musculoskeletal: Reports extremity pain Integumentary Reports abscess EXAM Physical Exam Const Vital Signs: 03/12/24 16:20 Temperature 97.3 F L Temperature Source Temporal Pulse Rate 95 Respiratory Rate 16 Blood Pressure 126/90 H Blood Pressure Mean 102 Pulse Ox 95 Oxygen Delivery Method Room Air Positive well nourished, well developed and obese General Appearance ED: well developed and NAD Nutritional Appearance: obese Eyes PERRL and EOMs intact bilaterally Neck supple Resp normal respiratory effort Extremity Extremity Narrative: Left posterior thigh 5-6 cm indurated fluctuant abscess without spontaneous drainage at this time, surrounding erythema, tender. Neuro oriented x3 Psych mental status grossly normal Skin Skin Narrative: Abscess left posterior thigh oh compartment soft and nondistended MDM MDM MDM Narrative Medical decision making narrative: Abscess was anesthetized and drained see the procedure note, and she was started on Bactrim. Given this cavity which is fairly large it was packed and started on antibiotics to cover MRSA. The foreign body was removed and I ran into no other foreign material in the cavity. Given appropriate discharge instructions for her nursing and LPNs to follow at assisted living. Procedures Other Procedures Procedure(s): Complex abscess I&D: Obtain consent for I&D of abscess on posterior left thigh. The area is prepped and draped in sterile fashion with chlorhexidine, anesthetized locally with 5 cc of plain 1% lidocaine, incised centrally with a #10 blade, compared with the size of the cavity relatively small amount of purulent material was drained, the area was loculated and I deloculated it with Kellys and multiple areas, irrigated the cavity with saline, and packed it with quarter inch sterile gauze. Tolerated well no complications. Dressed with bacitracin. Discharge Plan Triage Chief Complaint: Wound Check ED Provider: Souleymane Fragoso Dx/Rx/DC Orders Clinical Impression: Abscess of left thigh Instructions: ED Abscess Incision And Drainage Prescriptions: New sulfamethoxazole-trimethoprim 800-160 mg tablet 1 tab PO BID Qty: 20 0RF No Action albuterol sulfate [Ventolin HFA] 90 mcg/actuation HFA aerosol inhaler 2 puff INHALATION PRN (Reason: SOB) amitriptyline 10 mg tablet 10 mg PO QHS baclofen 20 mg tablet 60 mg PO DAILY dantrolene 25 mg capsule 25 mg PO BID duloxetine 30 mg capsule,delayed release(DR/EC) 30 mg PO BID famotidine 20 mg tablet 20 mg PO BID fluorometholone 0.1 % drops,suspension 1 drp ophthalmic (eye) DAILY gabapentin 400 mg capsule 400 mg PO DAILY gabapentin 800 mg tablet 800 mg PO QHS ibuprofen 800 mg tablet 800 mg PO DAILY PRN (Reason: pain) clonazepam [Klonopin] 0.5 mg tablet 0.5 mg PO QHS PRN furosemide [Lasix] 20 mg tablet 20 mg PO DAILY loratadine 10 mg tablet 10 mg PO DAILY methocarbamol 500 mg tablet 1,000 mg PO TID nystatin 100,000 unit/gram powder 1 applic TOPICAL DAILY oxybutynin chloride 10 mg tablet extended release 24hr 10 mg PO DAILY promethazine 25 mg tablet 25 mg PO Q4H PRN tizanidine 4 mg tablet 8 mg PO QHS multivitamin Tablet 1 tab PO DAILY atorvastatin 20 mg tablet 20 mg PO DAILY pantoprazole 40 mg tablet,delayed release (DR/EC) 40 mg PO DAILY docusate sodium [DOK] 100 mg tablet 100 mg PO DAILY coenzyme Q10 100 mg capsule 100 mg PO DAILY cephalexin [cephalexin] 500 mg capsule 500 mg PO Q6 Qty: 28 0RF oxycodone 5 mg tablet 5 mg PO Q6H PRN (Reason: pain) 3 Days Qty: 14 0RF Primary Care Provider: Taye Pinto Referrals: Taye Pinto DO [Primary Care Provider] - 3-5 Days if not improving (Or may return to ER for reevaluation if you have any concerns about it not healing) Activity Restrictions/Additional Instructions: Try to leave packing intact for 48 hours and then simply remove by pulling completely out and discard. If it falls out earlier than that, do not worry about it, just continue dressing changes. If there is any water that gets into the area after a shower or what not, you may gently apply pressure to the surrounding area to express it prior to a new dressing change. Antibiotic ointment on the area with these dressing changes okay as well. Dressings may need to be changed frequently in the first 48 hours due to minor bleeding and discharge, may stop dressing changes when there is no more blood or discharge on dressings. If you are concerned about it recurring or getting worse, return to the ER for reevaluation. Print Language: Nepali Disposition Disposition: Home, Self Care
[2024-03-12] MEDS: Lidocaine 1% (20 ml mdv) 20 ML Vial INFILT (16:59)
[2024-03-12] MEDS: Smz/Tmp Ds Tablet 1 TABLET PO (16:59)
[2024-03-12 18:39] VITALS: BP 125/74; PULSE 82; RESP 16; TEMP 37; O2SAT 95
== END 2024-03-12 18:42 | disposition home or self-care (01) ==
PROVIDERS: Emergency Provider Emergency Medicine; PCP Family Medicine; Visit Provider Emergency Medicine
DX: L02.416 Cutaneous abscess of left lower limb (principal); F31.9 Bipolar disorder, unspecified; F17.210 Nicotine dependence, cigarettes, uncomplicated; Z79.899 Other long term (current) drug therapy; Z90.49 Acquired absence of other specified parts of digestive tract
CPT/HCPCS: 10060; 99282

== ENCOUNTER 2024-06-03 15:00 | Outpatient (RCR) | payer MEDICAID, SELFPAY ==
--- NOTE | 2024-05-28 16:14 | HP.PTEVAL_ITS ---
Patient's Visit Information Visit Information Visit Information: KATARZYNA GRIMM is a 49 year old F referred to Physical Therapy by Dr. Taye Pinto DO with a diagnosis of Difficulty in walking.. Date of Evaluation: 05/28/24 Physical Therapist: Nick Solomon, DPT, OCS, CSCS Visit Plan Frequency: 2x /Week Duration: 4-6 Weeks Plan: 2x/week for 4-6 to start for. 1. Teach mat and parallel bar based LE and core strength with pics for HEP 2. Work on standing balance with decreasing support 3. Work on wh walker ambulation distance adn progressions to tolerance. Subjective Subjective: I want to strengthen my legs and walk more. Currently walks in room taking 20 30 steps with wh walker or rollator(has bth), Legs then start to feel weird and legs spasms. Broke each leg in the last couple years when legs gave out and she fell with walker. 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 All of it has come back except requires catheter now and control bowels is tough. Has movement in legs and wants to work on losing weight, lost 30# in 4 months with diet. No regular exercises. Sleep is not great due to spasms but that is normal since 2020, on meds for these spasms. has to wait a second upon standing..4-5 per night interrupted. Sleeps on couch lying on back. Uses WC to get around most of time. Gets on couch in apartment. No stairs to climb. Spends day watching TV. Lives alone in assisted living, Dresses self and bathroom self but help to clean up if has accident. Bathes in handicap shower. , Meals are provided but she cooks her own. Currently walk with wh walker at home 4-5x day to couch about 15 feet each day, does not go without walker. Gets on floor 1x/day adn back up with help of couch , no other active exercises, wathces a lot of tv Objective Objective: Powered wheelchair self propelled back to eval room mod I. Sit to stand trasnfer from chair including getting catheter and footholds out of way, I in two tries with UE. Sit edge of wheelchair I with fair trunk strength. hip strength 3+ abd and ext and flexion B, knee flexiona nd ext 3+ L and 4- R, ankle strength 3+ B all directions. AROM WFL, tightness in psoas and gastroc and HS B but funcitonal. Subjectively able to get on and off the floor at home with UE assist at couch. reflexes 0/3 patella adn achilles B. Sensation LE WNL to gross light touch B. coordination at deficit in reciprocal heel tapping. Stand balance without AD I and good with ec and good with head movements. Does not have a great trust of legs. Can march in place slowly and laboriously with one hand on walker but will not try it without. walks 20 feet self limited today with wh walker mod I, short steps and poor weight shift but able, Limited by distrust of LE. Stand to sit Mod I into WC. Balance/Special Test Scores Lower Extremity Functional Score: 28 Goals Goal 1:: I appropriate standing and mat ex for core and LE strength to maximize funciton. Goal Time Frame: 4-6 Weeks Goal 2:: Walk 100 feet with wh walker mod I consistentlya dn cofiednetly Goal Time Frame: 4-6 Weeks Goal 3:: stand and march I without hesitation 10 steps safely No AD Goal Time Frame: 4-6 Weeks Rehabilitation Potential Physical Therapy Diagnosis: weakness and distrust of LE limiting mobility at home Anticipated Interventions Patient/Client Instruction: Educate patient on: Condition and Plan of Care For the Purpose of:: To improve nutrient delivery to tissue, To increase tolerance to activity/condition/position and To improve gait and locomotor functions Therapeutic Exercise to Include: Strength training and Gait and locomotor training For the Purpose of:: To decrease pain, To increase ROM, To improve nutrient d elivery to tissue and To improve gait and locomotor functions Text: Thank you for the opportunity to evaluate your patient. For Medicare and Medicare HMO plans, please review the plan of care and approve it. It will need to be FAXED BACK to us at [phone] for Medicare purposes. For Medicare only, by signing this I certify the plan of care. Please let me know if there are questions or concerns regarding this plan of care. Physician Signature: Date:
--- NOTE | 2024-07-30 16:30 | HP.PT.NRP ---
Patient Information Patient Information: KATARZYNA GRIMM was seen in my office for initial evaluation on 05/28/24. The following Plan of Care was established for this patient: POC Established Initial Frequency: 2x /Week Initial Duration: 4-6 Weeks Anticipated Interventions Patient/Client Instruction: Educate patient on: Condition and Plan of Care For the Purpose of:: To improve nutrient delivery to tissue, To increase tolerance to activity/condition/position and To improve gait and locomotor functions Therapeutic Exercise to Include: Strength training and Gait and locomotor training For the Purpose of:: To decrease pain, To increase ROM, To improve nutrient delivery to tissue and To improve gait and locomotor functions Last Seen Last Seen: This patient was last seen in our office 05/28/24. Pertinent comments regarding their Physical therapy will appear below: Pt seen for IE and cancelled and no showed the rest stating she was sick at one point and wanting chart to be discharged. At this point I will be discontinuing this patient from physical therapy. I would be happy to see this patient again in the future if found appropriate by the physician. Thank you! Nick Solomon, DPT, OCS, CSCS Balance/Gait/Functional tests Balance/Special Test Scores Lower Extremity Functional Score: 28
== END 2024-06-03 19:00 | disposition home or self-care (01) ==
LOC: PT 15:00
PROVIDERS: PCP Family Medicine; Referring Provider Family Medicine; Visit Provider Family Medicine
DX: R26.2 Difficulty in walking, not elsewhere classified (principal); G62.9 Polyneuropathy, unspecified
CPT/HCPCS: 97110; 97162

== ENCOUNTER → 2024-09-11 | Outpatient (CLI) | payer MEDICAID, SELFPAY ==
[2024-09-11 17:35] LABS: Absolute Lymphocyte Count 1.89 X10^3/uL (0.83-4.51); Basophil# 0.06 X10^3/uL; Basophil% 0.9 % (0-1); Eosinophil# 0.09 X10^3/uL; Eosinophils% 1.4 % (0-5); Hematocrit 46.1 % (37-47); Lymphocyte # 1.89 X10^3/ul (0.83-4.51); Lymphocyte % 28.8 % (19-41); Mean Corp Hgb Conc 32.5 g/dL (32-36); Mean Corpuscular Hgb 31.6 pg (27.0-32.0); Mean Corpuscular Volume 97.3 fL (81-99); Mean Platelet Vol. 10.9 fl (6.2-12.0); Monocyte# 0.53 X10^3/uL; Monocyte% 8.1 % (0-10); NRBC Flagged by Analyzer 0 % (0-5); Neutrophil # 3.99 X10^3/uL (2.7-7.7); Neutrophil % 60.6 % (47-70); Platelet Count 222 K/mm3 (150-450); RBC Distribution Width CV 12.8 % (11.6-14.6); RBC Distribution Width SD 45.7 fl (35.1-43.9); Red Blood Count 4.74 M/mm3 (4.2-5.4); White Blood Count 6.6 K/mm3 (4.4-11.0)
[2024-09-11 18:08] LABS: AST(SGOT) 27 U/L (15-37); Alanine Aminotransfer ALT/SGPT 69 U/L (13-56); Albumin, Serum 3.8 g/dL (3.2-5.0); Alkaline Phosphatase 115 U/L (45-117); Anion Gap 5 (5-15); BUN 12 mg/dL (7-18); BUN/Creat Ratio 12.7 RATIO (10-20); Calcium,Total 9.3 mg/dL (8.5-10.1); Chloride 102 mmol/L (98-107); Creatinine, Serum 0.95 mg/dL (0.55-1.02); EST Glomerular Filtration Rate 67 mL/min (>60); Est Glom Filt Rate - Afr Amer 81 mL/min (>60); Glucose 84 mg/dL (74-106); Potassium 4.2 mmol/L (3.5-5.1); Protein, Total 7.8 g/dL (6.4-8.2); Sodium Level 137 mmol/L (136-145); Thyroid Stim Hormone (TSH) 0.989 uIU/mL (0.358-3.740)
== END | disposition home or self-care (01) ==
LOC: BFHLAB 15:48
PROVIDERS: PCP Family Medicine; Visit Provider Family Medicine
DX: I95.9 Hypotension, unspecified (principal)
CPT/HCPCS: 36415; 80053; 84443; 85025

== ENCOUNTER 2024-09-25 08:45 | Emergency (ER) | payer MEDICAID, SELFPAY ==
[2024-09-25 08:48] VITALS: BP 124/89; PULSE 89; RESP 20; TEMP 36.3; O2SAT 95; BMI 37.0
--- NOTE | 2024-09-25 09:19 | RAD_ITS ---
EXAM: XR CHEST, 1 VIEW CLINICAL INDICATION: chest pain TECHNIQUE: Frontal view of the chest. COMPARISON: XR Chest dated 04/12/2020 FINDINGS: LUNGS AND PLEURAL SPACES: Normal. No consolidation or edema. No pneumothorax. No effusion. HEART: Normal heart size. MEDIASTINUM: No mediastinal or hilar mass. BONES/JOINTS: No acute abnormality. RAD/Chest 1 View (Portable) IMPRESSION: No acute cardiopulmonary abnormality. Electronically Signed: David Domínguez MD at 9:46 EST ,
--- NOTE | 2024-09-25 09:19 | EKG12_ITS ---
Test Reason : Blood Pressure : */* mmHG Vent. Rate : 89 BPM Atrial Rate : 89 BPM P-R Int : 122 ms QRS Dur : 106 ms QT Int : 370 ms P-R-T Axes : 46 73 -6 degrees QTcB Int : 450 ms Normal sinus rhythm Inferior-posterior infarct , age undetermined T wave abnormality, consider lateral ischemia Abnormal ECG Confirmed by KAROLINA IRELAND, RONALD ([id number]), editorial specialist ERICK WIGGINS ([id number]) on 09/28/2024 7:59:44 AM Referred By: Confirmed By: RONALD TURCIOS MD
--- NOTE | 2024-09-25 09:19 | ED.VIS.CHEST ---
HPI History of Present Illness Chief Complaint: Chest Pain Informant: patient and EMS Narrative Narrative: 49-year-old female sent by EMS from residential because of chest discomfort. She states it is gone right now. She states she has been in residential for about a week, but the symptoms have been coming and going for weeks. She states today it went into her left shoulder and upper arm a little. When it occurs in her chest that is on the left side without radiation usually. Sometimes has some mild dyspnea. Today she states someone at the residential checked her blood pressure and it was 70/40, she did not feel presyncopal but maybe a little lightheaded, she states this has happened in the past and not necessarily related to her chest discomfort. She states because of these episodes her doctor's office has been trying to contact her to schedule a stress test. She does not have any history of a heart problem. 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 PFSH PFSH Medical History Functional dyspepsia Acute embolism and thrombosis of unspecified deep veins of left lower extremity Cognitive communication deficit Arthropathy Bipolar 1 disorder Muscle weakness (generalized) Hepatitis Smoker Asthma IVDU (intravenous drug user) Polysubstance (including opioids) dependence, daily use Opiate dependence Depression Alcohol abuse Home Medications ?Medication ?Instructions ?Recorded ?Last Taken ?Type albuterol sulfate 90 mcg/actuation 2 puff inhalation PRN SOB 05/17/23 Unknown History aerosol inhaler (Ventolin HFA) amitriptyline 10 mg tablet 10 mg PO QHS 05/17/23 Unknown History baclofen 20 mg tablet 60 mg PO DAILY 05/17/23 Unknown History clonazepam 0.5 mg tablet (Klonopin) 0.5 mg PO QHS PRN 05/17/23 Unknown History dantrolene 25 mg capsule 25 mg PO BID 05/17/23 Unknown History duloxetine 30 mg capsule,delayed 30 mg PO BID 05/17/23 Unknown History release famotidine 20 mg tablet 20 mg PO BID 05/17/23 Unknown History fluorometholone 0.1 % eye 1 drp ophthalmic (eye) DAILY 05/17/23 Unknown History drops,suspension gabapentin 400 mg capsule 400 mg PO DAILY 05/17/23 Unknown History gabapentin 800 mg tablet 800 mg PO QHS 05/17/23 Unknown History ibuprofen 800 mg tablet 800 mg PO DAILY PRN pain 05/17/23 Unknown History loratadine 10 mg tablet 10 mg PO DAILY 05/17/23 Unknown History methocarbamol 500 mg tablet 1,000 mg PO TID 05/17/23 Unknown History nystatin 100,000 unit/gram topical 1 applic topical DAILY 05/17/23 Unknown History powder oxybutynin chloride 10 mg 10 mg PO DAILY 05/17/23 Unknown History tablet,extended release 24 hr promethazine 25 mg tablet 25 mg PO Q4H PRN 05/17/23 Unknown History tizanidine 4 mg tablet 8 mg PO QHS 05/17/23 Unknown History oxycodone 5 mg tablet 5 mg PO Q6H PRN pain 3 days #14 12/07/23 Unknown Rx tabs atorvastatin 20 mg tablet 20 mg PO DAILY 01/19/24 Unknown History coenzyme Q10 100 mg capsule 100 mg PO DAILY 01/19/24 Unknown History docusate sodium 100 mg tablet (DOK) 100 mg PO DAILY 01/19/24 Unknown History multivitamin 1 tab PO DAILY 01/19/24 Unknown History pantoprazole 40 mg tablet,delayed 40 mg PO DAILY 01/19/24 Unknown History release cephalexin 500 mg capsule 500 mg PO Q6 #28 CAPSULES 01/24/24 Unknown Rx sulfamethoxazole 800 1 tab PO BID #20 TABLETS 03/12/24 Unknown Rx mg-trimethoprim 160 mg tablet potassium chloride 20 mEq 20 meq PO BID #10 tabs 09/25/24 Unknown Rx tablet,extended release Allergy/AdvReac Type Severity Reaction Status Date / Time hydrocodone bitartrate (From Allergy Itching Verified 09/25/24 08:52 Vicodin) Surgical History Chronic suprapubic catheter History of cholecystectomy Social History household members: none Smoking Status: Current every day smoker tobacco type: cigarettes ROS ROS ED Constitutional Constitutional ED: Denies chills or fever(s) Eyes Eyes: Denies change in vision or diplopia ENT ENT ED: Denies rhinorrhea or sore throat Cardiovascular Cardiovascular: Reports as per HPI, chest pain and radiating jaw, neck or arm pain; Denies orthopnea or palpitations Respiratory/Chest Respiratory/Chest: Reports dyspnea; Denies cough, dyspnea on exertion or orthopnea Gastrointestinal Gastrointestinal: Denies abdominal pain, diarrhea, nausea or vomiting Genitourinary Genitourinary ED: Denies dysuria or hematuria Musculoskeletal Musculoskeletal: Denies back pain or neck pain Integumentary Denies abscess or rash Neurologic Neurologic: Reports paresthesias and weakness; Denies headache(s) Psychiatric Psychiatric: Denies anxiety or suicidal thoughts EXAM Physical Exam Const Vital Signs: 09/25/24 08:48 09/25/24 08:52 09/25/24 09:45 Temperature 97.3 F L Temperature Source Oral Pulse Rate 89 84 Respiratory Rate 20 H 18 Respiratory Effort Normal Non-Labored Blood Pressure 124/89 H 117/75 Blood Pressure Mean 100 89 Pulse Ox 95 95 Oxygen Delivery Method Room Air Room Air 09/25/24 09:51 09/25/24 11:00 Temperature Temperature Source Pulse Rate 84 91 Respiratory Rate 19 H 18 Respiratory Effort Blood Pressure 115/82 H 124/78 H Blood Pressure Mean 93 93 Pulse Ox 96 96 Oxygen Delivery Method Room Air Room Air Positive well nourished, well developed and obese General Appearance ED: well developed and NAD Nutritional Appearance: obese HEENT Reports moist mucous membranes normocephalic and atraumatic Eyes PERRL and EOMs intact bilaterally Neck full ROM and supple Resp normal respiratory effort and clear to auscultation bilaterally Cardio regular rate, regular rhythm and no murmurs Peripheral Pulses: pulses 2+ throughout GI non-tender and non-distended Auscultation: normoactive bowel sounds Palpation: soft Back/Spine no CVA tenderness General Back: other FROM Extremity normal to inspection General Extremety ED: Negative for edema, pulses abnormal or tenderness General Extremity: Negative for edema or pulses abnormal Neuro oriented x3 and CN's II-XII intact bilaterally Neuro Narrative: Weak and partial sensory loss in both lower extremities at baseline per patient. No weakness in arms. Sensorium / Orientation: awake and alert Psych mental status grossly normal Skin no rashes or lesions noted and no wounds Heart Score History: Moderately Suspicious ECG: Nonspecific Repolarization Age: >45 - <65 years Risk Factors: 1 or 2 Risk Factors (Smoking) Troponin: </= Normal Limit Score: 4 MDM MDM MDM Narrative Medical decision making narrative: The patient's EKG has some subtle changes. However, she has 2 sequential troponin measurements that are within normal limits and the second actually decreased. She was very hypokalemic, she has been on daily Lasix, and in speaking with her further, she is in assisted living, and states that she has been on the Lasix ever since she was quadriplegic and had edema in her legs and less use of them but she is using them a lot better now. She is concerned about the episodes of hypotension she has had in the past. She developed none of that here. I offered admission for further treatment and evaluation such as a stress test, she refuses and wants to go home. My recommendation would be to discontinue the Lasix until further notice, and prescribing her some additional potassium, we started replacing that here, and she states she will follow-up with her doctor to schedule outpatient stress test as planned. Lab Data Attestation: I reviewed the patient's lab results. Labs: Laboratory Results - last 24 hr 09/25/24 09/25/24 08:56 11:34 WBC 6.6 RBC 5.57 H Hgb 17.7 H Hct 51.7 H MCV 92.8 MCH 31.8 MCHC 34.2 RDW Std Deviation 41.2 RDW Coeff of Katie 12.0 Plt Count 208 MPV 11.8 Immature Gran % (Auto) 0.200 Neut % (Auto) 55.0 Lymph % (Auto) 30.9 [place] % (Auto) 9.8 Eos % (Auto) 2.4 Baso % (Auto) 1.7 H Absolute Neuts (auto) 3.6 Absolute Lymphs (auto) 2.03 Nucleated RBC % 0 Sodium 134 L Potassium 2.6 L* Chloride 92 L Carbon Dioxide 32.0 Anion Gap 10 BUN 8 Creatinine 1.12 H Estim Creat Clear Calc 80.12 Est GFR (MDRD) Af Amer 67 Est GFR (MDRD) Non-Af 55 L BUN/Creatinine Ratio 7.1 L Glucose 77 Calcium 10.4 H Troponin I High Sens 14 13 Radiography Diagnostic Testing: Clinical Impression(s) from Imaging Studies Chest X-Ray 09/25/24 09:19 IMPRESSION: No acute cardiopulmonary abnormality. Electronically Signed: David Domínguez MD at 9:46 EST , 1 view chest x-ray on my interpretation normal with narrow mediastinum Rhythm Strip Rhythm Strip: Sinus Rhythm Rate: 89 Ectopy: None EKG Initial EKG: Attestation: I personally reviewed and interpreted this EKG as follows: Interpretation: Sinus Rhythm, No Acute Injury Pattern and Non-Specific ST Changes (inf and septal precord leads) Prior EKG tracings: available for review Prior: Changed Discharge Plan Triage Chief Complaint: Chest Pain ED Provider: Souleymane Fragoso Dx/Rx/DC Orders Clinical Impression: Intermittent left-sided chest pain, Transient hypotension Instructions: ED Chest Pain, Uncertain Cause Prescriptions: New potassium chloride 20 mEq tablet extended release 20 meq PO BID Qty: 10 0RF Continued albuterol sulfate [Ventolin HFA] 90 mcg/actuation HFA aerosol inhaler 2 puff INHALATION PRN (Reason: SOB) amitriptyline 10 mg tablet 10 mg PO QHS baclofen 20 mg tablet 60 mg PO DAILY dantrolene 25 mg capsule 25 mg PO BID duloxetine 30 mg capsule,delayed release(DR/EC) 30 mg PO BID famotidine 20 mg tablet 20 mg PO BID fluorometholone 0.1 % drops,suspension 1 drp ophthalmic (eye) DAILY gabapentin 400 mg capsule 400 mg PO DAILY gabapentin 800 mg tablet 800 mg PO QHS ibuprofen 800 mg tablet 800 mg PO DAILY PRN (Reason: pain) clonazepam [Klonopin] 0.5 mg tablet 0.5 mg PO QHS PRN loratadine 10 mg tablet 10 mg PO DAILY methocarbamol 500 mg tablet 1,000 mg PO TID nystatin 100,000 unit/gram powder 1 applic TOPICAL DAILY oxybutynin chloride 10 mg tablet extended release 24hr 10 mg PO DAILY promethazine 25 mg tablet 25 mg PO Q4H PRN tizanidine 4 mg tablet 8 mg PO QHS multivitamin Tablet 1 tab PO DAILY atorvastatin 20 mg tablet 20 mg PO DAILY pantoprazole 40 mg tablet,delayed release (DR/EC) 40 mg PO DAILY docusate sodium [DOK] 100 mg tablet 100 mg PO DAILY coenzyme Q10 100 mg capsule 100 mg PO DAILY cephalexin 500 mg capsule 500 mg PO Q6 Qty: 28 0RF oxycodone 5 mg tablet 5 mg PO Q6H PRN (Reason: pain) 3 Days Qty: 14 0RF Held sulfamethoxazole-trimethoprim 800-160 mg tablet 1 tab PO BID Qty: 20 0RF Hold Instructions: while on potassium, unless finished, january d/c Discontinued furosemide [Lasix] 20 mg tablet 20 mg PO DAILY Primary Care Provider: Taye Pinto Referrals: Taye Pinto, [Primary Care Provider] - As soon as possible Print Language: Mongolian Disposition Disposition: Home, Self Care
[2024-09-25 09:31] LABS: Absolute Lymphocyte Count 2.03 X10^3/uL (0.83-4.51); Absolute Neutrophil Count 3.6 X10^3/uL (2.0-7.7); Basophil# 0.11 X10^3/uL; Basophil% 1.7 % (0-1); Eosinophil# 0.16 X10^3/uL; Eosinophils% 2.4 % (0-5); Hematocrit 51.7 % (37-47); Hemoglobin 17.7 g/dL (12.0-15.0); Lymphocyte # 2.03 X10^3/ul (0.83-4.51); Lymphocyte % 30.9 % (19-41); Mean Corp Hgb Conc 34.2 g/dL (32-36); Mean Corpuscular Hgb 31.8 pg (27.0-32.0); Mean Corpuscular Volume 92.8 fL (81-99); Mean Platelet Vol. 11.8 fl (6.2-12.0); Monocyte# 0.64 X10^3/uL; Monocyte% 9.8 % (0-10); NRBC Flagged by Analyzer 0 % (0-5); Neutrophil # 3.61 X10^3/uL (2.7-7.7); Platelet Count 208 K/mm3 (150-450); RBC Distribution Width SD 41.2 fl (35.1-43.9); Red Blood Count 5.57 M/mm3 (4.2-5.4); White Blood Count 6.6 K/mm3 (4.4-11.0)
[2024-09-25 09:45] VITALS: BP 117/75; PULSE 84; RESP 18; O2SAT 95
[2024-09-25 09:51] VITALS: BP 115/82; PULSE 84; RESP 19; O2SAT 96
[2024-09-25 09:59] LABS: Anion Gap 10 (5-15); BUN 8 mg/dL (7-18); BUN/Creat Ratio 7.1 RATIO (10-20); Calcium,Total 10.4 mg/dL (8.5-10.1); Chloride 92 mmol/L (98-107); Creatinine, Serum 1.12 mg/dL (0.55-1.02); EST Glomerular Filtration Rate 55 mL/min (>60); Est Glom Filt Rate - Afr Amer 67 mL/min (>60); Estimated Creatinine Clearance 80.12 ml/min; Glucose 77 mg/dL (74-106); Potassium 2.6 mmol/L (3.5-5.1); Sodium Level 134 mmol/L (136-145); Troponin-I HS (w/2H Reflex) 14 pg/mL (3.0-54.0)
[2024-09-25] MEDS: Potassium Chloride 10mEq/100mL 10 MEQ/100 ML IV.SOLN. 100 MEQ IV BOLUS (10:47)
[2024-09-25] MEDS: Potassium Chloride Oral Tablet 20 MEQ PO (10:47)
[2024-09-25 11:00] VITALS: BP 124/78; PULSE 91; RESP 18; O2SAT 96
[2024-09-25 11:24] LABS: Reflex Troponin-HS? (from REC) Y
[2024-09-25 12:08] LABS: Troponin-I HS 13 pg/mL (3.0-54.0)
== END 2024-09-25 12:30 | disposition home or self-care (01) ==
PROVIDERS: Emergency Provider Emergency Medicine; PCP Family Medicine; Visit Provider Emergency Medicine
DX: R07.9 Chest pain, unspecified (principal); F17.210 Nicotine dependence, cigarettes, uncomplicated; R03.1 Nonspecific low blood-pressure reading; F32.A Depression, unspecified; Z79.899 Other long term (current) drug therapy; Z90.49 Acquired absence of other specified parts of digestive tract
CPT/HCPCS: 71045; 80048; 84484; 85025; 93005; 96365; 99285

== ENCOUNTER → 2024-10-07 | Outpatient (CLI) | payer MEDICAID, SELFPAY ==
--- NOTE | 2024-10-07 12:00 | STRESSREP ---
Stress Test Report Pharmacologic myocardial perfusion stress test. 49-year-old lady with a history of chest pain Resting EKG demonstrates sinus bradycardia with a rate of 54 bpm. Resting blood pressure is 110/70 mmHg. 0.4 mg of regadenoson was infused per usual protocol followed by rapid intravenous saline flush injection. Continuous EKG monitoring was performed. The maximum heart rate was 79 bpm which was 45% of max impacted heart rate the maximum workload was 1 metabolic equivalent. At rest there were no ST or T wave changes noted to suggest ischemia and at peak infusion nonspecific ST changes were noted which did not meet the criteria for ischemia. No clinical angina is noted. The final blood pressure was 104/60 mmHg. Myocardial perfusion protocol. 15 mCi of technetium 99m sestamibi was injected at rest. 0.4 mg of regadenoson was infused per usual protocol. At peak infusion 45.1 mCi of technetium 99m sestamibi was injected stress images were obtained stress and rest images were reconstructed and compared in the short axis vertical long and horizontal long axis. Gated images were also obtained. Perfusion SPECT analysis: Review of the stress images demonstrate normal uptake of tracer noted in all areas of the myocardium. The resting images similar demonstrated normal uptake of tracer noted in all areas of the myocardium. No areas of reversibility are noted to suggest ischemia and no previous infarct is noted. Gated SPECT analysis: The gated ejection fraction is 70%. Conclusion: Normal pharmacologic myocardial perfusion stress test. Preserved ejection fraction.
== END | disposition home or self-care (01) ==
LOC: CVS 07:34
PROVIDERS: PCP Family Medicine; Referring Provider Family Medicine; Visit Provider Family Medicine
DX: R07.9 Chest pain, unspecified (principal)
CPT/HCPCS: 78452; 93017; A9500; A4216; J2785

== ENCOUNTER 2025-03-19 13:40 | Emergency (ER) | payer MEDICAID, SELFPAY ==
[2025-03-19 13:44] VITALS: BP 107/79; PULSE 88; RESP 18; TEMP 37.1; O2SAT 92; BMI 29.3
--- NOTE | 2025-03-19 13:58 | EX.ED.SAOD ---
HPI History of Present Illness Chief Complaint: Substance Abuse Informant: patient Onset/Context/Timing Onset: Days (3) Context: Gradual Onset Timing: Continuous Worsened by: Nothing Relieved by: Nothing Associated Symptoms Associated Symptoms: Negative for vomiting*, diarrhea*, fever*, rash*, seizure, tremor, palpatations, suicidal ideation or homicidal ideation Narrative Narrative: Patient presents with relapse from opioid use. Patient states she used 1 g of opiates 3 days ago. Patient is unsure if it was meth or opiates. Patient states she has not used any since then. Patient denies any nausea or vomiting. Patient denies any seizures or tremors. Patient denies any suicidal or homicidal ideations. Patient admits to some pain in her back. Patient is also concerned that she may be dehydrated or her electrolytes may be abnormal. PFSH PFSH Medical History Functional dyspepsia Acute embolism and thrombosis of unspecified deep veins of left lower extremity Cognitive communication deficit Arthropathy Bipolar 1 disorder Muscle weakness (generalized) Hepatitis Smoker Asthma IVDU (intravenous drug user) Polysubstance (including opioids) dependence, daily use Opiate dependence Depression Alcohol abuse Home Medications ?Medication ?Instructions ?Recorded ?Last Taken ?Type albuterol sulfate 90 mcg/actuation 2 puff inhalation Q4H PRN SOB 05/17/23 Unknown History aerosol inhaler (Ventolin HFA) amitriptyline 10 mg tablet 10 mg PO QHS 05/17/23 Unknown History baclofen 20 mg tablet 20 mg PO DAILY 05/17/23 Unknown History fluorometholone 0.1 % eye 1 drp ophthalmic (eye) BID 05/17/23 Unknown History drops,suspension gabapentin 800 mg tablet 800 mg PO 4X/DAY 05/17/23 Unknown History ibuprofen 800 mg tablet 800 mg PO Q8H PRN pain 05/17/23 Unknown History loratadine 10 mg tablet 10 mg PO DAILY PRN allergy symptoms 05/17/23 Unknown History nystatin 100,000 unit/gram topical 1 applic topical BID 05/17/23 Unknown History powder promethazine 25 mg tablet 12.5 mg PO Q4H PRN allergy symptoms 05/17/23 Unknown History atorvastatin 20 mg tablet 20 mg PO DAILY 01/19/24 Unknown History coenzyme Q10 100 mg capsule 100 mg PO DAILY 01/19/24 Unknown History multivitamin 1 tab PO DAILY 01/19/24 Unknown History pantoprazole 40 mg tablet,delayed 40 mg PO DAILY 01/19/24 Unknown History release acetaminophen 325 mg tablet 650 mg PO Q6H PRN fever or pain 03/19/25 Unknown History aluminum hydrox-magnesium carb 95 30 ml PO Q4H PRN dyspepsia 03/19/25 Unknown History mg-358 mg/15 mL oral suspension (Acid Gone Antacid) benztropine 0.5 mg tablet 0.5 mg PO QHS 03/19/25 Unknown History dextrose 40 % oral gel (Glutose-15) 15 g PO Q15M PRN hypoglycemia 03/19/25 Unknown History diazepam 10 mg tablet 10 mg PO DAILY PRN alcohol 03/19/25 Unknown History withdrawal diazepam 10 mg tablet 10 mg PO QHS 03/19/25 Unknown History duloxetine 60 mg capsule,delayed 120 mg PO BID 03/19/25 Unknown History release furosemide 20 mg tablet 20 mg PO DAILY 03/19/25 Unknown History glucagon 1 mg solution for 1 mg IM Q20M PRN hypoglycemia 03/19/25 Unknown History injection (Glucagon Emergency Kit) guaifenesin 100 mg/5 mL oral 200 mg PO Q4H PRN congestion 03/19/25 Unknown History liquid (Adult Tussin Chest Congestion) loperamide 2 mg capsule 2 mg PO Q6H PRN loose stool 03/19/25 Unknown History (Anti-Diarrheal (loperamide)) melatonin 5 mg tablet 10 mg PO QHS 03/19/25 Unknown History oxybutynin chloride 15 mg 15 mg PO DAILY 03/19/25 Unknown History tablet,extended release 24 hr polyvinyl alcohol-povidone 0.5 1 - 2 drp EACH EYE Q1H PRN dry 03/19/25 Unknown History %-0.6 % eye drops (Clear Eyes eye(s) Natural Tears) sennosides 8.6 mg-docusate sodium 2 tab-cap PO BID 03/19/25 Unknown History 50 mg capsule (Senna Plus) sulfamethoxazole 800 1 tab PO BID #6 TABLETS 03/19/25 Unknown Rx mg-trimethoprim 160 mg tablet Allergy/AdvReac Type Severity Reaction Status Date / Time hydrocodone bitartrate (From Allergy Itching Verified 03/19/25 13:42 Vicodin) Surgical History Chronic suprapubic catheter History of cholecystectomy Social History household members: none Smoking Status: Current every day smoker tobacco type: cigarettes ROS ROS ED Constitutional Constitutional ED: Denies chills or fever(s) Eyes Eyes: Denies blurry vision or change in vision ENT ENT ED: Denies rhinorrhea or sore throat Cardiovascular Cardiovascular: Denies chest pain or palpitations Respiratory/Chest Respiratory/Chest: Denies cough or dyspnea Gastrointestinal Gastrointestinal: Denies nausea or vomiting Genitourinary Genitourinary ED: Denies dysuria or hematuria Musculoskeletal Musculoskeletal: Reports back pain; Denies neck pain Integumentary Denies abscess or rash Neurologic Neurologic: Denies headache(s) or weakness Psychiatric Psychiatric: Denies suicidal ideation or suicidal thoughts Allergic/Immunologic Allergic/Immunologic ED: Denies mouth swelling or urticaria EXAM Physical Exam Const Vital Signs: 03/19/25 13:44 03/19/25 15:08 Temperature 98.7 F Temperature Source Oral Pulse Rate 88 71 Respiratory Rate 18 16 Blood Pressure 107/79 112/70 Blood Pressure Mean 88 84 Pulse Ox 92 99 Oxygen Delivery Method Room Air Room Air Positive well nourished and well developed General Appearance ED: well developed and NAD HEENT Reports moist mucous membranes atraumatic Neck supple and no JVD Resp normal respiratory effort and clear to auscultation bilaterally Cardio regular rate and regular rhythm GI soft to palpation, non-tender and non-distended Neuro oriented x3, CN's II-XII intact bilaterally and no sensory deficits noted Justin Coma Scale: document GCS findings Spontaneous Obeys Commands Oriented 15 Sensorium / Orientation: alert Speech: speech normal Motor Exam: strength 5/5 throughout Psych mental status grossly normal and thought process normal MDM MDM MDM Narrative Medical decision making narrative: Differential diagnosis includes dehydration, electrolyte abnormality, substance abuse, and urinary tract infection. CBC will be obtained to assess for leukocytosis and anemia. Comprehensive metabolic profile will be obtained to assess for hepatic function, renal function, and electrolyte abnormality. Serum hCG will be obtained to assess for . Urinalysis will be obtained to assess for urinary tract infection and hematuria. Serum alcohol level will be obtained to assess for alcohol intoxication. Urine drug screen will be obtained to assess for substance abuse. Lab Data Attestation: I reviewed the patient's lab results. Lab results narrative: CBC was reviewed. There is white blood cell count of 4.2. The remainder is essentially within normal limits. Comprehensive metabolic profile was reviewed and was essentially within normal limits. Serum alcohol level was reviewed and was less than 10.1. Serum hCG was reviewed and was negative. Urinalysis was reviewed. Leukocyte esterase was 500. Nitrites were positive. Labs: Laboratory Results - last 24 hr 03/19/25 03/19/25 14:15 14:30 WBC 4.2 L RBC 4.00 L Hgb 13.6 Hct 38.2 MCV 95.5 MCH 34.0 H MCHC 35.6 RDW Std Deviation 43.7 RDW Coeff of Katie 12.7 Plt Count 257 MPV 10.2 Immature Gran % (Auto) 0.000 Neut % (Auto) 56.7 Lymph % (Auto) 29.3 [place] % (Auto) 8.3 Eos % (Auto) 4.0 Baso % (Auto) 1.7 H Absolute Neuts (auto) 2.4 Absolute Lymphs (auto) 1.24 Nucleated RBC % 0 Sodium 139 Potassium 3.3 Chloride 97 L Carbon Dioxide 26.6 Anion Gap 15 BUN 7 Creatinine 0.62 L Estim Creat Clear Calc 122.96 Est GFR (MDRD) Non-Af 109 BUN/Creatinine Ratio 10.7 Glucose 90 Calcium 8.8 Total Bilirubin 0.62 AST 28 ALT 20 Alkaline Phosphatase 89 Total Protein 6.4 Albumin 3.4 L Globulin 3.0 Albumin/Globulin Ratio 1.1 Serum , Qual NEGATIVE Urine Color Yellow Urine Clarity Cloudy Urine pH 8.0 Ur Specific [place] 1.015 Urine Protein 30 H Urine Glucose (UA) Normal Urine Ketones Negative Urine Occult Blood 50 H Urine Nitrite Positive H Urine Bilirubin Negative Urine Urobilinogen 1 H Ur Leukocyte Esterase 500 H Ethyl Alcohol < 10.1 Treatment and Re-Evaluation Narrative: Patient was advised of her findings. Patient does not want to be admitted for opiate detox at this time. Patient was able to drink fluids. Patient was given a dose of Bactrim here. Patient was given a prescription for Bactrim. Patient was instructed to follow-up with her primary care physician in 5 to 7 days. Patient was also instructed to follow-up with 180 in 3 to 5 days. Patient was instructed to return if worse in any way. Patient understood and was agreeable with the plan. All questions were answered. Discharge Plan Triage Chief Complaint: Substance Abuse ED Provider: Nick Angelo Dx/Rx/DC Orders Clinical Impression: Urinary tract infection, Opiate withdrawal Instructions: ED Cystitis Female Adult Prescriptions: New sulfamethoxazole-trimethoprim 800-160 mg tablet 1 tab PO BID Qty: 6 0RF No Action albuterol sulfate [Ventolin HFA] 90 mcg/actuation HFA aerosol inhaler 2 puff INHALATION Q4H PRN (Reason: SOB) amitriptyline 10 mg tablet 10 mg PO QHS baclofen 20 mg tablet 20 mg PO DAILY fluorometholone 0.1 % drops,suspension 1 drp ophthalmic (eye) BID gabapentin 800 mg tablet 800 mg PO 4X/DAY ibuprofen 800 mg tablet 800 mg PO Q8H PRN (Reason: pain) Rx Instructions: WITH FOOD OR MILK loratadine 10 mg tablet 10 mg PO DAILY PRN (Reason: allergy symptoms) nystatin 100,000 unit/gram powder 1 applic TOPICAL BID promethazine 25 mg tablet 12.5 mg PO Q4H PRN (Reason: allergy symptoms) multivitamin Tablet 1 tab PO DAILY atorvastatin 20 mg tablet 20 mg PO DAILY pantoprazole 40 mg tablet,delayed release (DR/EC) 40 mg PO DAILY coenzyme Q10 100 mg capsule 100 mg PO DAILY benztropine 0.5 mg tablet 0.5 mg PO QHS diazepam 10 mg tablet 10 mg PO QHS duloxetine 60 mg capsule,delayed release(DR/EC) 120 mg PO BID furosemide 20 mg tablet 20 mg PO DAILY guaifenesin [Adult Tussin Chest Congestion] 100 mg/5 mL liquid 200 mg PO Q4H PRN (Reason: congestion) Glucagon Emergency Kit (human) 1 mg recon soln 1 mg IM Q20M PRN (Reason: hypoglycemia) Rx Instructions: until target blood sugar attained dextrose [Glutose-15] 40 % gel 15 g PO Q15M PRN (Reason: hypoglycemia) Rx Instructions: until symptoms of low blood sugar are controlled Acid Gone Antacid 95-358 mg/15 mL suspension 30 ml PO Q4H PRN (Reason: dyspepsia) melatonin 5 mg tablet 10 mg PO QHS oxybutynin chloride 15 mg tablet extended release 24hr 15 mg PO DAILY Senna Plus 8.6-50 mg capsule 2 tab-cap PO BID loperamide [Anti-Diarrheal (loperamide)] 2 mg capsule 2 mg PO Q6H PRN (Reason: loose stool) Rx Instructions: administer after each loose stool until symptoms controlled; do not exceed 8 mg per 24 hrs diazepam 10 mg tablet 10 mg PO DAILY PRN (Reason: alcohol withdrawal) Rx Instructions: IN ADDITION TO ROUTINE DOSE Clear Eyes Natural Tears 0.5-0.6 % drops 1 - 2 drp EACH EYE Q1H PRN (Reason: dry eye(s)) acetaminophen 325 mg tablet 650 mg PO Q6H PRN (Reason: fever or pain) Primary Care Provider: Taye Pinto Referrals: Taye Pinto DO [Primary Care Provider] - 5-7 Days [facility] [Non-Staff] - 3-5 Days Print Language: Pakistani Disposition Disposition: Home, Self Care
[2025-03-19 14:26] LABS: Absolute Lymphocyte Count 1.24 X10^3/uL (0.83-4.51); Absolute Neutrophil Count 2.4 X10^3/uL (2.0-7.7); Basophil# 0.07 X10^3/uL; Basophil% 1.7 % (0-1); Eosinophil# 0.17 X10^3/uL; Hematocrit 38.2 % (37-47); Hemoglobin 13.6 g/dL (12.0-15.0); Lymphocyte # 1.24 X10^3/ul (0.83-4.51); Lymphocyte % 29.3 % (19-41); Mean Corp Hgb Conc 35.6 g/dL (32-36); Mean Corpuscular Volume 95.5 fL (81-99); Mean Platelet Vol. 10.2 fl (6.2-12.0); Monocyte# 0.35 X10^3/uL; Monocyte% 8.3 % (0-10); NRBC Flagged by Analyzer 0 % (0-5); Neutrophil % 56.7 % (47-70); Platelet Count 257 K/mm3 (150-450); RBC Distribution Width CV 12.7 % (11.6-14.6); RBC Distribution Width SD 43.7 fl (35.1-43.9); White Blood Count 4.2 K/mm3 (4.4-11.0)
[2025-03-19 14:38] LABS: Mucous, Urine 0 SEEN /hpf (<or=2+)
[2025-03-19 14:39] LABS: Internal QC Validated? YES +Cl - CLEAR BKGD; Pregnancy, Serum, hCG Quali. NEGATIVE Negative; Record Kit Lot#, Serum Preg. 947241
[2025-03-19 14:57] LABS: ALB/GLOB Ratio 1.1 RATIO (0.9-2.4); AST(SGOT) 28 U/L (<=31); Alanine Aminotransfer ALT/SGPT 20 U/L (<=34); Albumin, Serum 3.4 g/dL (3.5-5.0); Alcohol, Blood (Medical)-Serum < 10.1 mg/dL (<=10.0); Alkaline Phosphatase 89 U/L (35-104); Anion Gap 15 (5-15); BUN 7 mg/dL (4-19); BUN/Creat Ratio 10.7 RATIO (10-20); Calcium,Total 8.8 mg/dL (7.6-11.0); Carbon Dioxide 26.6 mmol/L (21.0-32.0); Chloride 97 mmol/L (98-108); Creatinine, Serum 0.62 mg/dL (0.70-1.20); EST Glomerular Filtration Rate 109 (>60); Estimated Creatinine Clearance 122.96 ml/min (50-250); Glucose 90 mg/dL (70-99); Potassium 3.3 mmol/L (3.3-5.1); Protein, Total 6.4 g/dL (5.9-8.4); Sodium Level 139 mmol/L (133-145); Total Bilirubin 0.62 mg/dL (0.00-1.30)
[2025-03-19 15:08] VITALS: BP 112/70; PULSE 71; RESP 16; O2SAT 99
[2025-03-19 15:47] LABS: Color, Urine Yellow (Yellow); Glucose, Dipstick Normal (Normal); Ketone-Dipstick Negative (Negative); Leukocyte Esterase-Dipstick 500 /ul (Negative); Nitrite-Dipstick Positive (Negative); Occult Blood-Urine 50 /ul (Negative); Protein-Dipstick 30 mg/dl (Negative); Specific Gravity, Urine 1.015 (1.002-1.030); Urine Bilirubin Dipstick Negative (Negative); Urine Clarity Cloudy (Clear); Urine Urobilinogen 1 mg/dl (Normal)
[2025-03-19] MEDS: Smz/Tmp Ds Tablet 1 TABLET PO (16:28)
[2025-03-19 16:40] LABS: Amphetamine Urine PRESUMPTIVE POSITIVE (<1000 ng/mL); Barbiturate Urine NEGATIVE (< 200 ng/mL); Benzodiazepine Urine PRESUMPTIVE POSITIVE (< 200 ng/mL); Buprenorphine Urine NEGATIVE (< 200 ng/mL); Cocaine Urine NEGATIVE (< 300 ng/mL); Fentanyl, Urine NEGATIVE; Methadone Urine NEGATIVE (< 300 ng/mL); Opiates Urine NEGATIVE (< 300 ng/mL); Oxycodone, Urine NEGATIVE (< 100 ng/mL); PCP Urine NEGATIVE (< 25 ng/mL); THC Urine PRESUMPTIVE POSITIVE (< 50 ng/mL)
[2025-03-19 17:03] LABS: Bacteria 3+ /hpf (None Seen); Calcium Oxalate Crystals Ur 2+ /hpf (<or=2+); White Blood Cells 10-25 SEEN /hpf (0-5)
[2025-03-19 17:04] LABS: Amorphous Sediment 2+; Red Blood Cells-Urine 0-5 SEEN /hpf (0-5); Squamous Epithelial Cells - UA 0-5 SEEN /hpf (5-10)
== END 2025-03-19 20:18 | disposition home or self-care (01) ==
PROVIDERS: Emergency Provider Emergency Medicine; PCP Family Medicine; Visit Provider Emergency Medicine
DX: F11.23 Opioid dependence with withdrawal (principal); N39.0 Urinary tract infection, site not specified; F17.210 Nicotine dependence, cigarettes, uncomplicated; F32.A Depression, unspecified; Z79.899 Other long term (current) drug therapy; Z90.49 Acquired absence of other specified parts of digestive tract
CPT/HCPCS: 80053; 80307; 81001; 82077; 84703; 85025; 87077; 87086; 87088; 87186; 99284

== ENCOUNTER 2025-03-28 14:34 | Emergency (ER) | payer MEDICAID, SELFPAY ==
[2025-03-28 14:35] VITALS: BP 155/80; PULSE 86; RESP 16; TEMP 36.4; O2SAT 98
[2025-03-28 15:49] LABS: Hematocrit 33.9 % (37-47); Hemoglobin 12.0 g/dL (12.0-15.0); Immature Granulocytes Count 0.020 X10^3/uL (0.0-0.0); Mean Corp Hgb Conc 35.4 g/dL (32-36); Mean Corpuscular Volume 94.4 fL (81-99); Mean Platelet Vol. 10.4 fl (6.2-12.0); NRBC Flagged by Analyzer 0 % (0-5); Platelet Count 199 K/mm3 (150-450); RBC Distribution Width CV 13.0 % (11.6-14.6); RBC Distribution Width SD 44.5 fl (35.1-43.9); Red Blood Count 3.59 M/mm3 (4.2-5.4); White Blood Count 9.8 K/mm3 (4.4-11.0)
[2025-03-28 16:49] LABS: Anion Gap 18 (5-15); BUN 5 mg/dL (4-19); BUN/Creat Ratio 8.1 RATIO (10-20); Calcium,Total 9.0 mg/dL (7.6-11.0); Carbon Dioxide 21.4 mmol/L (21.0-32.0); Chloride 95 mmol/L (98-108); Glucose 85 mg/dL (70-99); Potassium 3.2 mmol/L (3.3-5.1)
[2025-03-28 17:00] LABS: Barbiturate Urine NEGATIVE (< 200 ng/mL); Benzodiazepine Urine PRESUMPTIVE POSITIVE (< 200 ng/mL); PCP Urine NEGATIVE (< 25 ng/mL); THC Urine PRESUMPTIVE POSITIVE (< 50 ng/mL)
== END 2025-03-28 17:55 | disposition home or self-care (01) ==
LOC: ED 15:50
PROVIDERS: Physician Assistant; Emergency Provider Emergency Medicine; PCP Family Medicine; Visit Provider Emergency Medicine
DX: F19.19 Other psychoactive substance abuse with unspecified psychoactive substance-induced disorder (principal); E87.6 Hypokalemia; F17.210 Nicotine dependence, cigarettes, uncomplicated
CPT/HCPCS: 80048; 80307; 85025; 99285; A4216

== ENCOUNTER 2025-04-01 11:21 | Emergency (ER) | payer MEDICAID, SELFPAY ==
[2025-04-01 11:22] VITALS: BP 92/62; PULSE 84; RESP 79; TEMP 36.5; O2SAT 100; BMI 27.6
--- NOTE | 2025-04-01 11:40 | CT_ITS ---
PROCEDURE: SOFT TISSUE NECK WITH CONTRAST 04/01/2025 REASON FOR EXAM: BILATERAL NECK SWELLING TECHNIQUE: SOFT TISSUE NECK WITH CONTRAST CONTRAST: Isovue-300 VOLUME: 100 mL One or more dose reduction techniques were used (e.g., Automated exposure control, adjustment of the mA and/or kV according to patient size, use of iterative reconstruction technique). RADIATION DOSE SUMMARY: CTDlvol: 18.78 mGy DLP: 530.25 mGycm COMPARISON: None FINDINGS: Airway: Midline and patent. Salivary glands: Fatty replacement of the parotid glands. Lymph nodes: No cervical lymphadenopathy. Thyroid: Unremarkable Vasculature: Unremarkable Orbits: Unremarkable at visualized levels. Paranasal sinuses and mastoids: Grossly clear at visualized levels. Lung apices: Clear. Upper mediastinum: Visualized mediastinum is unremarkable. Bones: Multilevel degenerative changes of the spine. Status post multilevel fusion with screw and plate fixation causing multiple beam hardening artifacts. Other: CT/Soft Tissue Neck WITH Contrast IMPRESSION: Limited study. No acute abnormality is seen. Reading Location: [place] [id number]
--- NOTE | 2025-04-01 11:42 | EX.ED.DYSGE1 ---
HPI History of Present Illness Chief Complaint: Edema Narrative Narrative: Patient is a 50-year-old female with past medical history of polysubstance abuse, bipolar 1 disorder, suprapubic catheter secondary to paraplegia per the patient, alcohol abuse who presented to the emergency department the chief complaint of neck swelling bilaterally. Patient states that she went to bed and when she woke up she had swelling in her neck on both sides and was concerned therefore she came here for further evaluation management. Patient did note that last time she used methamphetamine was on Saturday. She states that she developed paraplegia after developing staph infection in her back after using a dirty needle. Patient states that she feels like she is swallowing normally for self without any difficulty PFSH PFSH Medical History Functional dyspepsia Acute embolism and thrombosis of unspecified deep veins of left lower extremity Cognitive communication deficit Arthropathy Bipolar 1 disorder Muscle weakness (generalized) Hepatitis Smoker Asthma IVDU (intravenous drug user) Polysubstance (including opioids) dependence, daily use Opiate dependence Depression Alcohol abuse Home Medications ?Medication ?Instructions ?Recorded ?Last Taken ?Type albuterol sulfate 90 mcg/actuation 2 puff inhalation Q4H PRN SOB 05/17/23 Unknown History aerosol inhaler (Ventolin HFA) amitriptyline 10 mg tablet 10 mg PO QHS 05/17/23 Unknown History baclofen 20 mg tablet 20 mg PO DAILY 05/17/23 Unknown History fluorometholone 0.1 % eye 1 drp ophthalmic (eye) BID 05/17/23 Unknown History drops,suspension gabapentin 800 mg tablet 800 mg PO 4X/DAY 05/17/23 Unknown History ibuprofen 800 mg tablet 800 mg PO Q8H PRN pain 05/17/23 Unknown History loratadine 10 mg tablet 10 mg PO DAILY PRN allergy symptoms 05/17/23 Unknown History nystatin 100,000 unit/gram topical 1 applic topical BID 05/17/23 Unknown History powder promethazine 25 mg tablet 12.5 mg PO Q4H PRN allergy symptoms 05/17/23 Unknown History atorvastatin 20 mg tablet 20 mg PO DAILY 01/19/24 Unknown History coenzyme Q10 100 mg capsule 100 mg PO DAILY 01/19/24 Unknown History multivitamin 1 tab PO DAILY 01/19/24 Unknown History pantoprazole 40 mg tablet,delayed 40 mg PO DAILY 01/19/24 Unknown History release acetaminophen 325 mg tablet 650 mg PO Q6H PRN fever or pain 03/19/25 Unknown History aluminum hydrox-magnesium carb 95 30 ml PO Q4H PRN dyspepsia 03/19/25 Unknown History mg-358 mg/15 mL oral suspension (Acid Gone Antacid) benztropine 0.5 mg tablet 0.5 mg PO QHS 03/19/25 Unknown History dextrose 40 % oral gel (Glutose-15) 15 g PO Q15M PRN hypoglycemia 03/19/25 Unknown History diazepam 10 mg tablet 10 mg PO DAILY PRN alcohol 03/19/25 Unknown History withdrawal diazepam 10 mg tablet 10 mg PO QHS 03/19/25 Unknown History duloxetine 60 mg capsule,delayed 120 mg PO BID 03/19/25 Unknown History release furosemide 20 mg tablet 20 mg PO DAILY 03/19/25 Unknown History glucagon 1 mg solution for 1 mg IM Q20M PRN hypoglycemia 03/19/25 Unknown History injection (Glucagon Emergency Kit) guaifenesin 100 mg/5 mL oral 200 mg PO Q4H PRN congestion 03/19/25 Unknown History liquid (Adult Tussin Chest Congestion) loperamide 2 mg capsule 2 mg PO Q6H PRN loose stool 03/19/25 Unknown History (Anti-Diarrheal (loperamide)) melatonin 5 mg tablet 10 mg PO QHS 03/19/25 Unknown History oxybutynin chloride 15 mg 15 mg PO DAILY 03/19/25 Unknown History tablet,extended release 24 hr polyvinyl alcohol-povidone 0.5 1 - 2 drp EACH EYE Q1H PRN dry 03/19/25 Unknown History %-0.6 % eye drops (Clear Eyes eye(s) Natural Tears) sennosides 8.6 mg-docusate sodium 2 tab-cap PO BID 03/19/25 Unknown History 50 mg capsule (Senna Plus) sulfamethoxazole 800 1 tab PO BID #6 TABLETS 03/19/25 Unknown Rx mg-trimethoprim 160 mg tablet cephalexin 500 mg capsule 500 mg PO BID 5 days #10 caps 04/01/25 Unknown Rx Allergy/AdvReac Type Severity Reaction Status Date / Time hydrocodone bitartrate (From Allergy Itching Verified 04/01/25 11:22 Vicodin) Surgical History Chronic suprapubic catheter History of cholecystectomy Social History household members: none Smoking Status: Current every day smoker tobacco type: cigarettes ROS ROS ED ROS Narrative Constitutional: Denies any fevers, chills, headaches Eyes, ears, nose, throat: Denies change in vision double vision blurry vision denies and difficulty swallowing Neck: Complains of neck swelling as noted above Cardiovascular: Denies chest pain Respiratory: Denies shortness of breath Abdomen: Denies nausea vomit diarrhea : States that she has suprapubic catheter as noted above Musculoskeletal: Denies back pain Skin: Denies any rashes or lesions EXAM Physical Exam Narrative Exam Narrative: General: Patient lying in bed rest comfortably did not appear to be acute distress Head: Atraumatic, normocephalic Eyes: PERRL bilaterally, EOMI blood, no conjunctival injection noted, mucous membranes dry, posterior visualized uvula midline no concern for peritonsillar abscess, no sublingual swelling, no tenderness to palpation over the mastoids bilaterally Neck: Soft, trachea midline, patient does have swelling bilaterally noted just below her mandibular region no fluctuance noted, no concern for Ludewig's angina Cardiovascular: Regular rate and rhythm no murmurs gallops rubs noted Respiratory: Clear to auscultation bilaterally Abdomen: Soft, nondistended, nontender to palpation Extremities: Radial pulses +2/4 in the bilateral extremities, no pedal edema on exam Neurological: Patient follow commands knew that she was at [facility] year is 2024 Skin: Warm, dry, intact no rashes or lesions noted Const Vital Signs: 04/01/25 11:22 04/01/25 11:29 04/01/25 11:43 Temperature 97.7 F L Temperature Source Oral Pulse Rate 84 Respiratory Rate 79 H Respiratory Effort Normal Non-Labored Blood Pressure 92/62 Blood Pressure Mean 72 Pulse Ox 100 98 Oxygen Delivery Method Room Air Room Air 04/01/25 15:21 Temperature Temperature Source Pulse Rate 77 Respiratory Rate 28 H Respiratory Effort Blood Pressure 111/72 Blood Pressure Mean 85 Pulse Ox 100 Oxygen Delivery Method Room Air MDM MDM MDM Narrative Medical decision making narrative: Patient is a 50-year-old female who presented to the emergency department the chief complaint of swelling to her neck bilaterally. On the differential diagnosis includes but not limited to reactive lymph nodes, abscess, strep throat, dehydration. Once workup is obtained reviewed she will be reevaluated. Patient will given 30 cc/kg bolus of IV fluids 11:40 AM 2500 mL Patient's CBC was reviewed and showed no evidence leukocytosis white blood count 5.5, he was 13.2, platelet count of 212. Patient's INR normal at 1, PT of 13.6. Patient sodium normal 42, potassium is mildly low at 3.1 and she was given 40 mill equivalents orally, creatinine was noted to be 0.62. Patient lactic acid normal at 1.3, AST and ALT are 23 and 15 respectively total bilirubin normal at 0.73. Patient's urinalysis reviewed showed 500 leukocyte esterase positive nitrites with 1+ bacteria this sent for culture she was given a gram Rocephin she will be placed on Keflex. Patient's CT soft tissue neck did not show any acute findings. Social work notified me that her current assisted living facility is sending her to inpatient rehab and she has a bed waiting for her. Per social work she will be transported to the inpatient rehab center. Patient was notified is agreeable this plan all question concerns answered. Lab Data Labs: Laboratory Results - last 24 hr 04/01/25 04/01/25 12:19 14:05 WBC 5.5 RBC 3.96 L Hgb 13.2 Hct 38.9 MCV 98.2 MCH 33.3 H MCHC 33.9 RDW Std Deviation 47.3 H RDW Coeff of Katie 13.2 Plt Count 212 MPV 9.8 Immature Gran % (Auto) 0.400 Neut % (Auto) 78.9 H Lymph % (Auto) 12.1 L [place] % (Auto) 5.5 Eos % (Auto) 2.2 Baso % (Auto) 0.9 Absolute Neuts (auto) 4.3 Absolute Lymphs (auto) 0.66 L Nucleated RBC % 0 PT 13.6 INR 1.0 APTT 33.1 Sodium 142 Potassium 3.1 L Chloride 100 Carbon Dioxide 22.7 Anion Gap 19 H BUN 9 Creatinine 0.62 L Estim Creat Clear Calc 123.55 Est GFR (MDRD) Non-Af 109 BUN/Creatinine Ratio 13.8 Glucose 73 Lactic Acid 1.3 Calcium 8.8 Total Bilirubin 0.73 AST 23 ALT 15 Alkaline Phosphatase 90 Total Protein 6.4 Albumin 3.3 L Globulin 3.1 Albumin/Globulin Ratio 1.1 Urine Color Straw Urine Clarity Sl. Cloudy Urine pH 6.0 Ur Specific [place] 1.010 Urine Protein Negative Urine Glucose (UA) Normal Urine Ketones 50 H Urine Occult Blood 10 H Urine Nitrite Positive H Urine Bilirubin Negative Urine Urobilinogen Normal Ur Leukocyte Esterase 500 H Urine RBC 0 SEEN Urine WBC 5-10 SEEN Ur Squamous Epith Cells 0-5 SEEN Urine Bacteria 1+ Urine Mucus 0 SEEN Radiography Diagnostic Testing: Clinical Impression(s) from Imaging Studies Soft Tissue Neck CT 04/01/25 11:40 IMPRESSION: Limited study. No acute abnormality is seen. Reading Location: [facility] Discharge Plan Triage Chief Complaint: Edema ED Provider: Samuel Hodges Dx/Rx/DC Orders Clinical Impression: UTI (urinary tract infection), Polysubstance abuse, Neck swelling Prescriptions: New cephalexin 500 mg capsule 500 mg PO BID 5 Days Qty: 10 0RF No Action albuterol sulfate [Ventolin HFA] 90 mcg/actuation HFA aerosol inhaler 2 puff INHALATION Q4H PRN (Reason: SOB) amitriptyline 10 mg tablet 10 mg PO QHS baclofen 20 mg tablet 20 mg PO DAILY fluorometholone 0.1 % drops,suspension 1 drp ophthalmic (eye) BID gabapentin 800 mg tablet 800 mg PO 4X/DAY ibuprofen 800 mg tablet 800 mg PO Q8H PRN (Reason: pain) Rx Instructions: WITH FOOD OR MILK loratadine 10 mg tablet 10 mg PO DAILY PRN (Reason: allergy symptoms) nystatin 100,000 unit/gram powder 1 applic TOPICAL BID promethazine 25 mg tablet 12.5 mg PO Q4H PRN (Reason: allergy symptoms) multivitamin Tablet 1 tab PO DAILY atorvastatin 20 mg tablet 20 mg PO DAILY pantoprazole 40 mg tablet,delayed release (DR/EC) 40 mg PO DAILY coenzyme Q10 100 mg capsule 100 mg PO DAILY benztropine 0.5 mg tablet 0.5 mg PO QHS diazepam 10 mg tablet 10 mg PO QHS duloxetine 60 mg capsule,delayed release(DR/EC) 120 mg PO BID furosemide 20 mg tablet 20 mg PO DAILY guaifenesin [Adult Tussin Chest Congestion] 100 mg/5 mL liquid 200 mg PO Q4H PRN (Reason: congestion) Glucagon Emergency Kit (human) 1 mg recon soln 1 mg IM Q20M PRN (Reason: hypoglycemia) Rx Instructions: until target blood sugar attained dextrose [Glutose-15] 40 % gel 15 g PO Q15M PRN (Reason: hypoglycemia) Rx Instructions: until symptoms of low blood sugar are controlled Acid Gone Antacid 95-358 mg/15 mL suspension 30 ml PO Q4H PRN (Reason: dyspepsia) melatonin 5 mg tablet 10 mg PO QHS oxybutynin chloride 15 mg tablet extended release 24hr 15 mg PO DAILY Senna Plus 8.6-50 mg capsule 2 tab-cap PO BID loperamide [Anti-Diarrheal (loperamide)] 2 mg capsule 2 mg PO Q6H PRN (Reason: loose stool) Rx Instructions: administer after each loose stool until symptoms controlled; do not exceed 8 mg per 24 hrs diazepam 10 mg tablet 10 mg PO DAILY PRN (Reason: alcohol withdrawal) Rx Instructions: IN ADDITION TO ROUTINE DOSE Clear Eyes Natural Tears 0.5-0.6 % drops 1 - 2 drp EACH EYE Q1H PRN (Reason: dry eye(s)) acetaminophen 325 mg tablet 650 mg PO Q6H PRN (Reason: fever or pain) sulfamethoxazole-trimethoprim 800-160 mg tablet 1 tab PO BID Qty: 6 0RF Primary Care Provider: Taye Pinto Referrals: Taye Pinto DO [Primary Care Provider] - Activity Restrictions/Additional Instructions: Follow-up with your doctor in the outpatient setting. Take Keflex as prescribed follow-up on urine culture. Return with worsening symptoms or any concerns your blood work showed a mild hypokalemia therefore you were given potassium supplementation in the emergency department. Your CT of your neck did not show any acute findings today. Print Language: [place] Zealander Disposition Disposition: Home, Self Care
[2025-04-01 11:43] VITALS: O2SAT 98
[2025-04-01 12:36] LABS: Hematocrit 38.9 % (37-47); Hemoglobin 13.2 g/dL (12.0-15.0); Immature Granulocytes Count 0.020 X10^3/uL (0.0-0.0); Mean Corp Hgb Conc 33.9 g/dL (32-36); Mean Corpuscular Volume 98.2 fL (81-99); Mean Platelet Vol. 9.8 fl (6.2-12.0); NRBC Flagged by Analyzer 0 % (0-5); Platelet Count 212 K/mm3 (150-450); RBC Distribution Width CV 13.2 % (11.6-14.6); RBC Distribution Width SD 47.3 fl (35.1-43.9); Red Blood Count 3.96 M/mm3 (4.2-5.4); White Blood Count 5.5 K/mm3 (4.4-11.0)
[2025-04-01] MEDS: 0.9% Normal Saline (1000mL) 1,000 ML 999 ML IV ×3 (12:42→16:24)
[2025-04-01 12:54] LABS: Prothrombin Time (Protime)PT. 13.6 SECONDS (11.7-14.9)
[2025-04-01 12:55] LABS: Partial Thromboplast Time 33.1 Seconds (24.1-36.2)
[2025-04-01 13:25] LABS: AST(SGOT) 23 U/L (<=31); Alanine Aminotransfer ALT/SGPT 15 U/L (<=34); Albumin, Serum 3.3 g/dL (3.5-5.0); Alkaline Phosphatase 90 U/L (35-104); Anion Gap 19 (5-15); BUN 9 mg/dL (4-19); BUN/Creat Ratio 13.8 RATIO (10-20); Calcium,Total 8.8 mg/dL (7.6-11.0); Carbon Dioxide 22.7 mmol/L (21.0-32.0); Chloride 100 mmol/L (98-108); Estimated Creatinine Clearance 123.55 ml/min (50-250); Globulin 3.1 g/dL (2.2-4.2); Glucose 73 mg/dL (70-99); Potassium 3.1 mmol/L (3.3-5.1)
[2025-04-01 14:10] LABS: Mucous, Urine 0 SEEN /hpf (<or=2+); Red Blood Cells-Urine 0 SEEN /hpf (0-5)
[2025-04-01 14:19] LABS: Color, Urine Straw (Yellow); Glucose, Dipstick Normal (Normal); Ketone-Dipstick 50 mg/dl (Negative); Leukocyte Esterase-Dipstick 500 /ul (Negative); Nitrite-Dipstick Positive (Negative); Occult Blood-Urine 10 /ul (Negative); Protein-Dipstick Negative (Negative); Specific Gravity, Urine 1.010 (1.002-1.030); Urine Bilirubin Dipstick Negative (Negative)
[2025-04-01 14:40] LABS: Squamous Epithelial Cells - UA 0-5 SEEN /hpf (5-10)
[2025-04-01 15:21] VITALS: BP 111/72; PULSE 77; RESP 28; O2SAT 100
[2025-04-01] MEDS: Potassium Chloride Oral Tablet 20 MEQ 40 MEQ PO (15:40)
--- NOTE | 2025-04-01 15:50 | CM.ED ---
Social work SW received a call from Roxanne So (ph: [phone]) with [facility] and [facility]. Roxanne stated knowing that patient was in the [facility] ED and had been for a couple of hours; this was accurate information at the time of the call. Roxanne stated needing to know information regarding discharge due to patient needing to go to [facility] in [place] for rehabilitation. Reportedly, patient chose to go to rehab and [facility] was the only place that would accommodate patient's power wheelchair. If patient did not go today, then patient would lose the bed. SW expressed understanding the situation, but needing to check with the doctor and nurse regarding discharge timeline as SW was not sure based on patient still needing test results. Roxanne stated needing to drive to [place] to retrieve the bus for transporting patient to [place]. About 1515, SW received knowledge from doctor that patient could be discharged and SW called Roxanne to update. Roxanne stated it would still be about 3 hours before being able to arrive to pick up operator patient and stated patient could be discharged back to [facility]. PAPITO told Elif SHELBY this information and no further needs identified at this time. Rosmery Goode, TALENT MANAGEMENT SPECIALIST, EXCEPTIONAL NEEDS TEACHER
[2025-04-01 16:43] VITALS: BP 119/64; PULSE 62; RESP 25; TEMP 36.6; O2SAT 96
--- NOTE | 2025-04-01 17:14 | CM.ED ---
Social work This SW was approached by Elif SHELBY to verify patient's ride back to [facility]. Per patient to Elif SHELBY, patient provided [facility]'s main desk number (ph: [phone]). This SW called and spoke with Carrie, explaining the other SW note's conversation with Roxanne from [facility] and [facility] earlier. Carrie clarified that patient should be sent back to [facility] where Roxanne will pick patient up and take patient to [place]. Elif SHELBY updated. Patient intends to be picked up via [facility] between [id number]. Rosmery Goode, SWATCH CUTTER, STOCK BLENDER
== END 2025-04-01 19:48 | disposition home or self-care (01) ==
PROVIDERS: Emergency Provider Emergency Medicine; PCP Family Medicine; Referring Provider Emergency Medicine; Visit Provider Emergency Medicine
DX: R22.1 Localized swelling, mass and lump, neck (principal); F19.19 Other psychoactive substance abuse with unspecified psychoactive substance-induced disorder; N39.0 Urinary tract infection, site not specified; F17.210 Nicotine dependence, cigarettes, uncomplicated; F32.A Depression, unspecified; Z79.899 Other long term (current) drug therapy; Z90.49 Acquired absence of other specified parts of digestive tract
CPT/HCPCS: 70491; 80053; 81001; 83605; 85025; 85610; 85730; 87040; 87086; 87088; 87651; 93005; 96361; 96365; 99285; Q9967; A4216

== ENCOUNTER 2025-04-12 16:42 | Emergency (ER) | payer MEDICAID, SELFPAY ==
[2025-04-12 16:44] VITALS: BP 132/102; PULSE 101; RESP 16; TEMP 36.9; O2SAT 100; BMI 27.3
--- NOTE | 2025-04-12 16:57 | EDS_ITS ---
HPI HPI - Female History of Present Illness Chief Complaint: Complaint Informant: patient Narrative Narrative: 50-year-old female history of DVT, history of neurogenic bladder for which is a chronic suprapubic catheter which she has had for years. Follows up with urologist at the [facility]. She also has a history of polysubstance abuse, bipolar and prior MRSA infection for which she has decreased sensation from mid chest down. She is able to ambulate however. Believes a suprapubic catheter may be clogged. States she has had limited output today. She is also had nausea and vomiting. Also complains of her urethra is painful. Prior similar symptoms: Yes Recent Illness/Hospitalization: No PFSH PFSH Medical History Functional dyspepsia Acute embolism and thrombosis of unspecified deep veins of left lower extremity Cognitive communication deficit Arthropathy Bipolar 1 disorder Muscle weakness (generalized) Hepatitis Smoker Asthma IVDU (intravenous drug user) Polysubstance (including opioids) dependence, daily use Opiate dependence Depression Alcohol abuse Home Medications ?Medication ?Instructions ?Recorded ?Last Taken ?Type albuterol sulfate 90 mcg/actuation 2 puff inhalation Q 4H PRN SOB 05/17/23 Unknown History aerosol inhaler (Ventolin HFA) amitriptyline 10 mg tablet 10 mg PO QHS 05/17/23 Unkno wn History baclofen 20 mg tablet 20 mg PO DAILY 05/17/23 Unkn own History fluorometholone 0.1 % eye 1 drp ophthalmic (eye) BID 0 05/17/23 Unknown History drops,suspension gabapentin 800 mg tablet 800 mg PO 4X/DAY 05/17/23 Un known History ibuprofen 800 mg tablet 800 mg PO Q8H PRN pain 05/17 Unknown History loratadine 10 mg tablet 10 mg PO DAILY PRN allergy s ymptoms 05/17/23 Unknown History nystatin 100,000 unit/gram topical 1 applic topical BI D 05/17/23 Unknown History powder promethazine 25 mg tablet 12.5 mg PO Q4H PRN allergy s ymptoms 05/17/23 Unknown History atorvastatin 20 mg tablet 20 mg PO DAILY 01/19/24 Unkn own History coenzyme Q10 100 mg capsule 100 mg PO DAILY 01/19/24 U nknown History multivitamin 1 tab PO DAILY 01/19/24 Unkn own History pantoprazole 40 mg tablet,delayed 40 mg PO DAILY 01/18 Unknown History release acetaminophen 325 mg tablet 650 mg PO Q6H PRN fever or pain 03/19/25 Unknown History aluminum hydrox-magnesium carb 95 30 ml PO Q4H PRN dys pepsia 03/19/25 Unknown History mg-358 mg/15 mL oral suspension (Acid Gone Antacid) benztropine 0.5 mg tablet 0.5 mg PO QHS 03/19/25 Unkno wn History dextrose 40 % oral gel (Glutose-15) 15 g PO Q15M PRN h ypoglycemia 03/19/25 Unknown History diazepam 10 mg tablet 10 mg PO DAILY PRN alcohol 0 03/19/25 Unknown History withdrawal diazepam 10 mg tablet 10 mg PO QHS 03/19/25 Unknow n History duloxetine 60 mg capsule,delayed 120 mg PO BID 5 Unknown History release furosemide 20 mg tablet 20 mg PO DAILY 03/19/25 Unkn own History glucagon 1 mg solution for 1 mg IM Q20M PRN hypoglycem ia 03/19/25 Unknown History injection (Glucagon Emergency Kit) guaifenesin 100 mg/5 mL oral 200 mg PO Q4H PRN congest ion 03/19/25 Unknown History liquid (Adult Tussin Chest Congestion) loperamide 2 mg capsule 2 mg PO Q6H PRN loose stool 03/19/25 Unknown History (Anti-Diarrheal (loperamide)) melatonin 5 mg tablet 10 mg PO QHS 03/19/25 Unknow n History oxybutynin chloride 15 mg 15 mg PO DAILY 03/19/25 Unkn own History tablet,extended release 24 hr polyvinyl alcohol-povidone 0.5 1 - 2 drp EACH EYE Q1H PRN dry 03/19/25 Unknown History %-0.6 % eye drops (Clear Eyes eye(s) Natural Tears) sennosides 8.6 mg-docusate sodium 2 tab-cap PO BID Unknown History 50 mg capsule (Senna Plus) sulfamethoxazole 800 1 tab PO BID #6 TABLETS 02/22 04/16 Unknown Rx mg-trimethoprim 160 mg tablet cephalexin 500 mg capsule 500 mg PO BID 5 days #10 cap s 04/01/25 Unknown Rx cephalexin 500 mg capsule 500 mg PO Q8H 7 days #21 cap s 04/12/25 Unknown Rx Allergy/AdvReac Type Severity Reaction Status Date / Time hydrocodone bitartrate (From Allergy Itching Verified 04/12/25 16:48 Vicodin) Surgical History Chronic suprapubic catheter History of cholecystectomy Social History household members: none Smoking Status: Current every day smoker tobacco type: cigarettes ROS ROS ED ROS Narrative Nausea vomiting. Urethral pain. Constitutional Constitutional ED: Denies chills or fever(s) Eyes Eyes: Denies blurry vision ENT ENT ED: Denies ear pain Cardiovascular Cardiovascular: Denies chest pain Respiratory/Chest Respiratory/Chest: Denies cough Gastrointestinal Gastrointestinal: Reports nausea and vomiting; Denies abdominal pain Genitourinary Genitourinary ED: Denies dysuria or hematuria Musculoskeletal Musculoskeletal: Denies arthralgias Integumentary Denies abscess Neurologic Neurologic: Denies headache(s) Psychiatric Psychiatric: Denies anxiety Endocrine Endocrinology: Denies heat intolerance Hematologic/Lymphatic Hematologic/Lymphatic: Denies easy bleeding Allergic/Immunologic Allergic/Immunologic ED: Denies mouth swelling EXAM Physical Exam Narrative Exam Narrative: 50-year-old female sitting upright in bed. Vital signs stable afebrile. No acute distress. No one is present in the room. H EENT exam pupils round react to light. Moist pink members. Neck nontender no JVD. Back nontender. Lungs clear to auscultation bilaterally. Heart regular rhythm rate about 100 no murmu r. Chest wall ribs nontender. Abdomen soft nondistended normal bowel sounds without peritoneal signs. Suprapubic catheter in place. Clear dark yellow urine about 100 to 200 cc in the catheter. Moves all 4 extremities. Neurologically she is awake and alert. Decreased sensation from the waist down but is able to move her legs. Const Vital Signs: 04/12/25 16:44 Temperature 98.4 F Temperature Source Oral Pulse Rate 101 H Respiratory Rate 16 Blood Pressure 132/102 H Blood Pressure Mean 112 Pulse Ox 100 Oxygen Delivery Method Room Air Positive well nourished, well developed and obese; Negative for cachectic, contractures or unkempt General Appearance ED: well developed and NAD; Negative for unkempt, cachectic or contractures Nutritional Appearance: obese; Negative for cachectic HEENT Reports moist mucous membranes Eyes PERRL and EOMs intact bilaterally Neck no lymphadenopathy, supple and no JVD Chest Wall inspection of chest normal and palpation of chest normal Resp normal respiratory effort and clear to auscultation bilaterally Cardio regular rate, regular rhythm, S1 normal heart sound, no murmurs and no JVD GI normal to inspection, nondistended, normoactive bowel sounds, soft to palpation, non-tender and non-distended GI Narrative: Suprapubic catheter in place. Palpation: Negative for tender, guarding or mass Back/Spine no CVA tenderness Extremity normal to inspection and full ROM Neuro oriented x3, CN's II-XII intact bilaterally and No no sensory deficits noted Sensorium / Orientation: alert, oriented to person, oriented to place and oriented to time Motor Exam: strength 5/5 throughout Psych mental status grossly normal Appearance: Negative for unkempt Skin no rashes or lesions noted and no wounds MDM MDM MDM Narrative Medical decision making narrative: 50-year-old female concerned that her suprapubic catheter may be obstructed. Nu rse will irrigate. Will check a UA chemistries and CBC due to her nausea and vomiting to be given a liter of fluid and Zofran. History & Record Review Discussion w/independent historian: Patient (With a an employee's representative that was with him.) Additional record(s) reviewed:: No prior records Procedures Lacerations Left thumb laceration repair:: Length: 2 in Depth: Sub Q Shape: Linear Laceration repair: Irrigated, Lidocaine, Local and Skin sutures Number of Sutures/[place]: 3 Suture Information: Ethilon, Simple and 4-0 Comment: Left thumb laceration. Dorsum between the MCP and PIP. About 2 inches in length. Locally anesthetized lidocaine. Cleaned with Shur-Clens. Washed and irrigated with saline. Explored. I cannot actually see the tendon because it is a laceration that undermines the skin and it is not wide enough for me to see into the tendon but he cannot extend the distal phalanx I expect he has a laceration of the extensor tendon. Area was irrigated with saline. Closed using 3 simple erupted 4-0 Ethilon sutures. He will be referred to plastic surgery for follow-up. For tendon repair. Discharge Plan Triage Chief Complaint: Complaint ED Provider: Renato Henson Dx/Rx/DC Orders Clinical Impression: Laceration of left thumb, Extensor tendon laceration, finger, open wound, Encounter related to worker's compensation claim Instructions: ED Laceration, Hand: All Closures, ED Tendon Laceration Prescriptions: New cephalexin 500 mg capsule 500 mg PO Q8H 7 Days Qty: 21 0RF No Action albuterol sulfate [Ventolin HFA] 90 mcg/actuation HFA aerosol inhaler 2 puff INHALATION Q4H PRN (Reason: SOB) amitriptyline 10 mg tablet 10 mg PO QHS baclofen 20 mg tablet 20 mg PO DAILY fluorometholone 0.1 % drops,suspension 1 drp ophthalmic (eye) BID gabapentin 800 mg tablet 800 mg PO 4X/DAY ibuprofen 800 mg tablet 800 mg PO Q8H PRN (Reason: pain) Rx Instructions: WITH FOOD OR MILK loratadine 10 mg tablet 10 mg PO DAILY PRN (Reason: allergy symptoms) nystatin 100,000 unit/gram powder 1 applic TOPICAL BID promethazine 25 mg tablet 12.5 mg PO Q4H PRN (Reason: allergy symptoms) multivitamin Tablet 1 tab PO DAILY atorvastatin 20 mg tablet 20 mg PO DAILY pantoprazole 40 mg tablet,delayed release (DR/EC) 40 mg PO DAILY coenzyme Q10 100 mg capsule 100 mg PO DAILY benztropine 0.5 mg tablet 0.5 mg PO QHS diazepam 10 mg tablet 10 mg PO QHS duloxetine 60 mg capsule,delayed release(DR/EC) 120 mg PO BID furosemide 20 mg tablet 20 mg PO DAILY guaifenesin [Adult Tussin Chest Congestion] 100 mg/5 mL liquid 200 mg PO Q4H PRN (Reason: congestion) Glucagon Emergency Kit (human) 1 mg recon soln 1 mg IM Q20M PRN (Reason: hypoglycemia) Rx Instructions: until target blood sugar attained dextrose [Glutose-15] 40 % gel 15 g PO Q15M PRN (Reason: hypoglycemia) Rx Instructions: until symptoms of low blood sugar are controlled Acid Gone Antacid 95-358 mg/15 mL suspension 30 ml PO Q4H PRN (Reason: dyspepsia) melatonin 5 mg tablet 10 mg PO QHS oxybutynin chloride 15 mg tablet extended release 24hr 15 mg PO DAILY Senna Plus 8.6-50 mg capsule 2 tab-cap PO BID loperamide [Anti-Diarrheal (loperamide)] 2 mg capsule 2 mg PO Q6H PRN (Reason: loose stool) Rx Instructions: administer after each loose stool until symptoms controlled; do not exceed 8 mg per 24 hrs diazepam 10 mg tablet 10 mg PO DAILY PRN (Reason: alcohol withdrawal) Rx Instructions: IN ADDITION TO ROUTINE DOSE Clear Eyes Natural Tears 0.5-0.6 % drops 1 - 2 drp EACH EYE Q1H PRN (Reason: dry eye(s)) acetaminophen 325 mg tablet 650 mg PO Q6H PRN (Reason: fever or pain) sulfamethoxazole-trimethoprim 800-160 mg tablet 1 tab PO BID Qty: 6 0RF cephalexin 500 mg capsule 500 mg PO BID 5 Days Qty: 10 0RF Primary Care Provider: Taye Pinto Referrals: Renato Henson MD [Emergency Provider] - Taye Pinto DO [Primary Care Provider] - Yvon Schaeffer MD [Med Staff - Active Staff] - As soon as possible (Call their office tomorrow morning. Tell them you are in the ER. You have a extensor tendon laceration of your left thumb that needs repaired and followed up.) Activity Restrictions/Additional Instructions: Keep the thumb laceration dry and clean. You can clean it off but then it is to be dry thoroughly. Do not soak in any water. Motrin and Tylenol for pain. Ice and elevate. Follow-up with Dr. Yvon Mckay plastic surgery to evaluate your thumb for an extensor tendon laceration. The antibiotic Keflex 3 times a day to prevent infection. Print Language: Icelandic Disposition Disposition: Home, Self Care
[2025-04-12 17:15] LABS: Hematocrit 34.3 % (37-47); Hemoglobin 11.7 g/dL (12.0-15.0); Immature Granulocytes Count 0.050 X10^3/uL (0.0-0.0); Mean Corp Hgb Conc 34.1 g/dL (32-36); Mean Corpuscular Volume 96.3 fL (81-99); Mean Platelet Vol. 10.0 fl (6.2-12.0); NRBC Flagged by Analyzer 0 % (0-5); Platelet Count 260 K/mm3 (150-450); RBC Distribution Width CV 13.0 % (11.6-14.6); RBC Distribution Width SD 45.2 fl (35.1-43.9); Red Blood Count 3.56 M/mm3 (4.2-5.4); White Blood Count 9.2 K/mm3 (4.4-11.0)
[2025-04-12] MEDS: 0.9% Normal Saline (1000mL) 1,000 ML 1000 ML IV (17:33)
[2025-04-12 17:36] LABS: Anion Gap 12 (5-15); BUN 11 mg/dL (4-19); BUN/Creat Ratio 17.2 RATIO (10-20); Calcium,Total 9.0 mg/dL (7.6-11.0); Carbon Dioxide 26.0 mmol/L (21.0-32.0); Chloride 101 mmol/L (98-108); Estimated Creatinine Clearance 117.25 ml/min (50-250); Glucose 101 mg/dL (70-99); Potassium 3.2 mmol/L (3.3-5.1)
[2025-04-12 18:04] LABS: Mucous, Urine 0 SEEN /hpf (<or=2+)
[2025-04-12 18:42] LABS: Color, Urine Straw (Yellow); Glucose, Dipstick Normal (Normal); Ketone-Dipstick Negative (Negative); Leukocyte Esterase-Dipstick 500 /ul (Negative); Nitrite-Dipstick Positive (Negative); Occult Blood-Urine 25 /ul (Negative); Protein-Dipstick 30 mg/dl (Negative); Specific Gravity, Urine 1.005 (1.002-1.030); Urine Bilirubin Dipstick Negative (Negative)
[2025-04-12 18:58] VITALS: BP 121/56; PULSE 62; RESP 16; O2SAT 100
[2025-04-12 18:58] LABS: Red Blood Cells-Urine 0-5 SEEN /hpf (0-5); Squamous Epithelial Cells - UA 0-5 SEEN /hpf (5-10); Transitional Epithelial - Ur 0-5 SEEN /hpf (0-5)
[2025-04-12 19:36] VITALS: BP 121/61; PULSE 64; RESP 18; TEMP 36.9; O2SAT 99
--- OUTSIDE RECORDS SUMMARY | 2025-04-12 21:30 | XMS RPT_ITS | CCD ---
Author Organization [facility] [employer] Care Team Providers Care Bindery Technician Name Role Phone Lucretia Peña Unavailable DARREL VELOZ A Primary Care Unavailable SAM PLATA Attending Unavailable SAM PLATA Referring Unavailable DARREL VELOZ A Primary Care Unavailable SLICK, BRADLY Referring Unavailable CONSULT, NEUROLOGY Consulting Unavailable SAM PLATA Admitting Unavailable SAM PLATA Attending Unavailable Unavailable Primary Care Provider Unavailabl e Unavailable Primary Care Provider Unavailabl e Unavailable Primary Care Provider Unavailabl e Darrel Veloz A Primary Care Provider Geoff Alcatnar MD Unavailable [phone] DARREL VELOZ Primary Care Unavailable GEOFF ALCANTAR Attending Unavailable Unavailable Primary Care Provider Unavailabl e Darrel Veloz DO A Primary Care Provider Darrel Veloz A Primary Care Provider [phone] Dr. Darrel Veloz DO Primary Care Provider Dr. Nick Angelo DO Emergency Provider Dr. Nick Angelo DO Attending Provider [phone] Dr. Renato Henson MD Emergency Provider [phone] Dr. Samuel Hodges DO Referring Provider [phone] Dr. Samuel Hodges DO Emergency Provider DARREL VELOZ A Primary Care Unavailable ROSELIA, DARREL A Primary Care Unavailable ROSELIA, DARREL A Primary Care Unavailable ROSELIA, DARREL A Primary Care Unavailable ROSELIA, DARREL A Primary Care Unavailable RUSH MAXWELL Referring Unavailable ROSELIA, DARREL A Primary Care Unavailable ROSELIA, DARREL A Primary Care Unavailable ROSELIA, DARREL A Primary Care Unavailable ROSELIA, DARREL A Primary Care Unavailable MAXWELL, RUSH Attending Unavailable ROSELIA, DARREL A Primary Care Unavailable Physician, No Pcp Primary Care Provider Unavaila ble Roselia, Darrel Referring Unavailable Homar Wiley Attending Unavailable Roselia, Darrel Primary Care Unavailable Roselia, Darrel Consulting Unavailable Roselia, Darrel Referring Unavailable Roselia, Darrel Primary Care Unavailable Roselia, Darrel Attending Unavailable Roselia, Darrel Primary Care Unavailable Roselia, Darrel Attending Unavailable Roselia, Darrel Attending Unavailable Roselia, Darrel Referring Unavailable Roselia, Darrel Primary Care Unavailable Roselia, Darrel Attending Unavailable Roselia, Darrel Primary Care Unavailable Souleymane Fragoso Attending Unavailable Roselia, Darrel Primary Care Unavailable Nick Angelo Attending Unavailable Roselia, Darrel Primary Care Unavailable Renato Henson Attending Unavailable Roselia, Darrel Primary Care Unavailable Samuel Hodges Referring Unavailable Roselia, Darrel Primary Care Unavailable Samuel Hodges Attending Unavailable PHYSICIAN, NO PCP Primary Care Unavailable KALEY FOUNTAIN [phone] Atte nding Unavailable Sixto IRELAND, Dr. Gross Attending Provider Dr. Samuel Hodges DO Attending Provider [phone] Allergies Allergy Classification Reported Allergen(s) Allergy Type Date of Onset Reaction(s) Facility (1 source) acetaminophen / HYDROcodone drug allergy Itchy rash [facility] [employer] [facility] Work Phone: (20 sources) Acetaminophen / HYDROcodone; Translations: [HYDROCODONE-ACET AMINOPHEN] Drug Allergy 5 Vomiting [facility] Work Phone: (20 sources) traMADol; Translations: [TRAMADOL HCL] Drug Allergy 5 Mental Status Change [facility] (5 sources) HYDROcodone; Translations: [hydrocodone bitartrate] Drug Allergy 1 Itching [facility] (14 sources) traMADol Drug Allergy 5 [facility] Medications Current Medications Medication Drug Class(es) Dates Sig (Normalized) Sig (Original) acetaminophen 325 mg oral tablet (20 sources) Start: 03-19-2025 take 2 tablets by mouth every six hours as needed for pain Acetaminophen 325 mg tablet Active 650 mg PO EVERY 6 HOURS as needed for fever or pain March 19, 2025 12:00am Start: 02-16-2022 take 325-650 mg by m outh every six hours as needed acetaminophen (TYLENOL) 325 mg tablet Take 1-2 tablets by mouth every 6 hours as needed for pain or fever (specify). 02/16/2022 Active take 650 mg rectal r oute every four hours as needed acetaminophen (TYLENOL) 650 mg suppository 650 mg by RECTAL route every 4 hours as needed for fever (specify) or pain. Active take 2 tablets by mo uth every four hours as needed for pain acetaminophen (Tylenol) 325 MG tablet Take 650 mg by mouth every 4 hours as needed for mild pain (1-3). 0 Active Comment on above: Take 1-2 tablets by mouth every 6 hours as needed for pain or fever (specify). 650 mg by RECTAL rou te every 4 hours as needed for fever (specify) or pain. [id number] 200 actuat albuterol 0.09 mg/actuat metered dose inhaler (20 sources) beta2-Adrenergic Agonist Start: 05-17-2023 Albuterol Sulfate (Ventolin Hfa) 90 mcg/actuation HFA aerosol inhaler Active 2 NMA INHALATION Q4H as needed for SOB May 17, 2023 12:00am Start: 05-17-2023 Albuterol Sulf ate (Albuterol Sulfate 90 Mcg/Actuation Aerosol Inhaler) 90 mcg/actuation HFA aerosol inhaler Active 2 PUFF INHALATION May 17, 2023 12:00am take 2 puff(s) by in halation every four hours as needed for wheezing albuterol HFA (PROVENTIL HFA, VENTOLIN HFA) 90 mcg/actuation inhaler Inhale 2 Puffs as instructed every 4 hours as needed for wheezing/shortness of breath. Active Albuterol Sulfat e 108 (90 Base) MCG/ACT aerosol powder Inhale 2 puffs. 0 Active Comment on above: Inhale 2 Puffs as in structed every 4 hours as needed for wheezing/shortness of breath. albuterol 0.833 mg/ml / ipratropium bromide 0.167 mg/ml inhalation solution (20 sources) Anticholinergic, beta2-Adrenergic Agonist Start: 07-31-2022 End: 07-31-2023 ipratropium-albuterol (Duo-Neb) 0.5-2.5 mg/3 mL nebulizer solution Take 3 mL by nebulization every 6 hours as needed for shortness of breath. 180 mL 11 07/31/2022 Active Start: 02-16-2022 take 3 mL by inhalat ion every four hours as needed ipratropium-albuterol (DUONEB) 0.5 mg-3 mg(2.5 mg base)/3 mL nebu Inhale 3 mL as instructed every 4 hours as needed for wheezing/shortness of breath. 02/16/2022 Active Comment on above: Inhale 3 mL as instr ucted every 4 hours as needed for wheezing/shortness of breath. aluminum hydroxide 6.33 mg/ml / magnesium carbonate 23.9 mg/ml oral suspension (4 sources) Start: 03-19-20 take 1 mL by mouth every four hours as needed Aluminum Hydrox-Magnesium Carb (Acid Gone Antacid) 95-358 mg/15 mL suspension Active 30 mL PO Q4H as needed for dyspepsia March 19, 2025 12:00am aluminum hydroxide 40 mg/ml / magnesium hydroxide 40 mg/ml / simethicone 4 mg/ml oral suspension (20 sources) Start: 02-17-20 take 30 mL by mouth every four hours as needed aluminum-magnesium hydroxide-simethic one (MAALOX,MYLANTA,MA G-AL PLUS) 200-200-20 mg/5 mL suspension Take 30 mL by mouth every 4 hours as needed (indigestion). 02/16/2022 Active take 30 mL by mouth every six hours as needed for gastroesophageal reflux disease aluminum & magnesium hydroxide-simethico ne (Mylanta) 200-200-20 MG/5ML oral suspension Take 30 mL by mouth every 6 hours as needed for indigestion or heartburn. 0 Active Comment on above: Take 30 mL by mouth every 4 hours as needed (indigestion). amitriptyline hydrochloride 10 mg oral tablet (20 sources) Tricyclic Antidepressant Start: 05-17-20 23 take 1 tablet by mouth at bedtime Amitriptyline 10 mg tablet Active 10 mg PO AT BEDTIME May 17, 2023 12:00am Start: 11-07-2022 End: 12-07-2022 take 1 tablet by mouth once daily at bedtime amitriptyline (ELAVIL) 10 mg tablet Take 1 tablet by mouth daily at bedtime. 30 tablet 11/07/2022 Active Comment on above: Take 1 tablet by emma th daily at bedtime. ARTIFICIAL TEAR OP (13 sources) ARTIFICIAL TEAR OP Administer 1 drop into affected eye(s). 0 Active atorvastatin 20 mg oral tablet (5 sources) HMG-CoA Reductase Inhibitor Start: 4 take 1 tablet by mouth once daily Atorvastatin 20 mg tablet Active 20 mg PO DAILY January 19, 2024 12:00am baclofen 20 mg oral tablet (20 sources) gamma-Aminobutyric Acid-ergic Agonist Start: 3 take 1 tablet by mouth once daily Baclofen 20 mg tablet Active 20 mg PO DAILY May 17, 2023 12:00am Start: 05-17-2023 take 60 mg by mouth once daily Baclofen Active 60 MG PO DAILY May 17, 2023 12:00am Start: 02-16-2022 take 1 tablet by emma th three times daily, then take 2 tablets by mouth at bedtime baclofen (LIORESAL) 20 mg tablet Take 1 tablet by mouth three times a day and 2 tablets by mouth at bedtime. 150 tablet 2 02/16/2022 Active Comment on above: Take 1 tablet by emma th three times a day and 2 tablets by mouth at bedtime. benztropine mesylate 0.5 mg oral tablet (4 sources) Anticholinergic, Antihistamine Start: 03-19-20 take 1 tablet by mouth at bedtime Benztropine 0.5 mg tablet Active 0.5 mg PO AT BEDTIME March 19, 2025 12:00am bisacodyl 10 mg rectal suppository (20 sources) Stimulant Laxative Start: 02-17-20 bisacodyl (DULCOLAX, BISACODYL,) 10 mg supp 1 Suppository by RECTAL route once daily as needed for constipation. 02/16/2022 Active Comment on above: 1 Suppository by REC LAUREN route once daily as needed for constipation. calcium citrate 1500 mg / cholecalciferol 200 unt oral tablet (20 sources) Vitamin D Start: 02-17-20 take 1 tablet by mouth twice daily at mealtime calcium citrate-vitamin D3 (CALCIUM CITRATE + D) 315 mg-5 mcg (200 unit) tab Take 1 tablet by mouth twice daily with meals. 02/16/2022 Active Comment on above: Take 1 tablet by emma th twice daily with meals. cephalexin 500 mg oral capsule (20 sources) Cephalosporin Antibacterial Start: 04-12-20 take 1 capsule by mouth every eight hours Cephalexin 500 mg capsule Active 500 mg PO Q8H 21 7 0 April 12, 2025 12:00am Start: 04-01-2025 take 1 capsule by mo uth twice daily Cephalexin 500 mg capsule Active 500 mg PO TWICE A DAY 10 5 0 April 01, 2025 12:00am Start: 01-24-2024 End: 03-19-2025 take 1 capsule by mouth every six hours Cephalexin 500 mg capsule Discontinued 500 mg PO EVERY 6 HOURS 28 0 January 24, 2024 12:00am March 19, 2025 2:07pm Start: 06-13-2017 End: 08-21-2018 take 1 capsule by mouth four times daily Cephalexin 500 MG capsule Discontinued 500 mg PO 4 TIMES DAILY 30 0 June 13, 2017 12:00am August 21, 2018 2:38pm cranberry fruit (CRANBERRY) 450 mg tab (20 sources) take 1 tablet by emma th once daily cranberry fruit (CRANBERRY) 450 mg tab Take 450 mg by mouth once daily. Active take 1 tablet by mouth once yohana y cranberry fruit (CRANBERRY) 450 mg tab Take 450 mg by mouth once daily. 0 Active Comment on above: Take 450 mg by mouth once daily. cranberry preparation 450 mg oral capsule (13 sources) Non-Standardized Food Allergenic Extract, Non-Standardized Plant Allergenic Extract take 1 capsule by mouth at bedtime Cranberry 450 MG capsule Take 450 mg by mouth before bedtime. 0 Active dexamethasone 6 mg oral tablet (13 sources) Corticosteroid Start: 07-31-20 take 1 tablet by mouth in the morning dexAMETHasone (Decadron) 6 MG tablet Take 1 tablet (6 mg) by mouth in the morning for 7 days. 7 tablet 0 07/31/2022 Active diazePAM 10 mg oral tablet (20 sources) Benzodiazepine Start: 03-19-20 take 1 tablet by mouth at bedtime Diazepam 10 mg tablet Active 10 mg PO AT BEDTIME March 19, 2025 12:00am Start: 06-14-2024 take 1 tablet by emma th every twenty-four hours as needed diazePAM (VALIUM) 5 mg tablet Take 5 mg by mouth at bedtime as needed. 06/14/2024 Active docusate sodium 50 mg / sennosides, longterm 8.6 mg oral capsule (4 sources) Start: 03-19-2025 Sennosides-Docusate Sodium (Senna Plus) 8.6-50 mg capsule Active 2 NMA PO TWICE A DAY March 19, 2025 12:00am Drainage Bag 2,000 mL misc (17 sources) Start: 12-13-2023 Drainage Bag 2,000 mL misc Indications: Atonic neurogenic bladder 1 Bag every other week. 2 Each 12/13/2023 Active DULoxetine 60 mg delayed release oral capsule (20 sources) Serotonin and Norepinephrine Reuptake Inhibitor Start: 03-19-2025 take 2 capsules by mouth twice daily Duloxetine 60 mg capsule,delayed release(DR/EC) Active 120 mg PO TWICE A DAY March 19, 2025 12:00am Start: 07-31-2022 End: 03-19-2025 take 1 capsule by mouth twice daily Duloxetine 30 mg capsule,delayed release(DR/EC) Discontinued 30 mg PO TWICE A DAY May 17, 2023 12:00am March 19, 2025 1:59pm Start: 02-16-2022 take 1 capsule by [facility] twice daily DULoxetine (DRIZALMA SPRINKLE) 30 mg capsule, delayed release sprinkle Take 1 capsule (30 mg) by mouth twice daily. 02/16/2022 Active Comment on above: Take 1 capsule (30 m g) by mouth twice daily. fluconazole 150 mg oral tablet (13 sources) Azole Antifungal fluconazole (Di flucan) 150 MG tablet Take 200 mg by mouth daily. 0 Active fluorometholone 1 mg/ml ophthalmic suspension (20 sources) Corticosteroid Start: 05-17-2023 Fluorometholone 0.1 % drops,suspension Active 1 NMA OPHTHALMIC TWICE A DAY May 17, 2023 12:00am Start: 05-17-2023 Fluorometholon e Active 1 DRP OPHTHALMIC DAILY May 17, 2023 12:00am fluorometholone (FML) 0.1 % ophthalmic ointment Apply to both eyes 2 times daily. 0 Active fluticasone propionate 0.05 mg/actuat metered dose nasal spray (20 sources) Corticosteroid Start: 02-16-2022 take 2 spray(s) nasal route once daily fluticasone (FLONASE ALLERGY RELIEF) 50 mcg/actuation nasal spray Use 2 Sprays in each nostril once daily. 02/16/2022 Active Comment on above: Use 2 Sprays in each nostril once daily. furosemide 20 mg oral tablet (20 sources) Loop Diuretic Start: 03-19-2025 take 1 tablet by mouth once daily Furosemide 20 mg tablet Active 20 mg PO DAILY March 19, 2025 12:00am Start: 05-17-2023 End: 09-25-2024 take 1 tablet by mouth once daily Furosemide (Lasix) 20 mg tablet Discontinued 20 mg PO DAILY May 17, 2023 12:00am September 25, 2024 1:21pm Comment on above: Take 20 mg by mouth once daily. For edema gabapentin 800 mg oral tablet (20 sources) Anti-epileptic Agent Start: 05-17-2023 take 1 tablet by mouth four times daily Gabapentin 800 mg tablet Active 800 mg PO 4 TIMES DAILY May 17, 2023 12:00am Start: 05-17-2023 take 800 mg by mouth at bedtim e Gabapentin Active 800 MG PO AT BEDTIME May 17, 2023 12:00am Start: 05-17-2023 End: 03-19-2025 take 1 capsule by mouth once daily Gabapentin 400 mg capsule Discontinued 400 mg PO DAILY May 17, 2023 12:00am March 19, 2025 2:07pm Start: 07-31-2022 gabapentin 50 MG tablet Take 400 mg by mouth in the morning and 400 mg at noon and 400 mg in the evening and 400 mg before bedtime. 120 tablet 0 07/31/2022 Active Start: 07-31-2022 End: 07-31-2023 gabapentin 50 MG tablet Take 400 mg by mouth in the morning and 400 mg at noon and 400 mg in the evening and 400 mg before bedtime. 120 tablet 0 07/31/2022 07/31/2023 Active Start: 02-16-2022 End: 05-19-2022 take 1 capsule by mouth three times daily, then take 2 capsules by mouth at bedtime gabapentin (NEURONTIN) 400 mg capsule Take 1 capsule by mouth three times a day and 2 capsules by mouth at bedtime. 150 capsule 2 02/16/2022 Active Start: 06-08-2015 take 1 tablet by emma th three times daily as needed for pain GABAPENTIN 300 MG CAPS One tablet by mouth three times daily as needed for pain GABAPENTIN [id number] Darrel Veloz Comment on above: Take 1 capsule by [facility] three times a day and 2 capsules by mouth at bedtime. Take 800 mg by mouth daily at bedtime. glucagon (rdna) 1 mg injection (20 sources) Antihypoglycemic Agent Start: 03-19-2025 Glucagon (Glucagon Emergency Kit (Human)) 1 mg recon soln Active 1 mg IM Q20M as needed for hypoglycemia March 19, 2025 12:00am until target blood sugar attained glucagon 1 mg/mL injection Inject 1 mg intramuscularly as needed (for symptomatic hypoglycemia). Active Comment on above: Inject 1 mg intramus cularly as needed (for symptomatic hypoglycemia). glucose 0.4 mg/mg oral gel (20 sources) Start: 03-19-2025 Dextrose (Glutose-15) 40 % gel Active 15 g PO Q15M as needed for hypoglycemia March 19, 2025 12:00am until symptoms of low blood sugar are controlled dextrose (GLUCOS E GEL ORAL) Take by mouth as needed (for Hypoglycemic episode). Active dextrose (GLUCOS E GEL ORAL) Take by mouth as needed (for Hypoglycemic episode). 0 Active Comment on above: Take by mouth as nee ded (for Hypoglycemic episode). guaiFENesin 20 mg/ml oral solution (20 sources) Start: 02-17-20 take 200 mg by mouth every four hours as needed for congestion Guaifenesin (Adult Tussin Chest Congestion) 100 mg/5 mL liquid Active 200 mg PO Q4H as needed for congestion March 19, 2025 12:00am Comment on above: Take 10 mL by mouth every 4 hours as needed for cough. ibuprofen 800 mg oral tablet (20 sources) Nonsteroidal Anti-inflammatory Drug Start: 05-17-20 23 take 1 tablet by mouth every eight hours as needed for pain Ibuprofen 800 mg tablet Active 800 mg PO Q8H as needed for pain May 17, 2023 12:00am WITH FOOD OR MILK Start: 05-17-2023 take 800 mg by mouth once yohana y Ibuprofen Active 800 MG PO DAILY May 17, 2023 12:00am Start: 05-29-2016 End: 08-23-2016 take 1 tablet by mouth every six hours as needed Ibuprofen 400 MG tablet Discontinued 400 mg PO EVERY 6 HOURS NEEDED as needed for toothache 0 0 May 29, 2016 12:00am August 23, 2016 10:01am Start: 04-01-2015 IBUPROFEN 200 MG TABS 4 tablets three times a day IBUPROFEN [id number] Darrel Veloz DO Start: 09-11-2005 End: 02-16-2022 MOTRIN 800 MG TAB Take one ( 1) tablet three(3) times daily as needed. 0 09/11/2005 02/16/2022 Discontinued (Discontinued by another Health Care Provider) ibuprofen 800 MG tablet Take 400 mg by mouth 3 times daily. 0 Active Comment on above: Take one (1) tablet three(3) times daily as needed. Take 800 mg by mouth every 8 hours as needed for pain. loperamide hydrochloride 2 mg oral capsule (20 sources) Opioid Agonist Start: 03-19-2025 Loperamide (Anti-Diarrheal (Loperamide)) 2 mg capsule Active 2 mg PO EVERY 6 HOURS as needed for loose stool March 19, 2025 12:00am administer after each loose stool until symptoms controlled; do not exceed 8 mg per 24 hrs Start: 02-16-2022 take 1 tablet by emma th once as needed for diarrhea loperamide HCl (IMODIUM A-D) 2 mg tab Take 1 tablet by mouth as needed (diarrhea). 02/16/2022 Active Comment on above: Take 1 tablet by emma th as needed (diarrhea). loratadine 10 mg oral tablet (20 sources) Start: 02-17-20 take 1 tablet by mouth once daily as needed Loratadine 10 mg tablet Active 10 mg PO DAILY as needed for allergy symptoms May 17, 2023 12:00am Comment on above: Take 1 tablet by emma th once daily. magnesium hydroxide 80 mg/ml oral suspension (20 sources) Start: 02-17-20 take 30 mL by mouth once daily as needed for constipation magnesium hydroxide (MILK OF MAGNESIA) 400 mg/5 mL suspension Take 30 mL by mouth once daily as needed for constipation. 02/16/2022 Active Comment on above: Take 30 mL by mouth once daily as needed for constipation. melatonin 5 mg oral tablet (20 sources) Start: 03-19-20 take 2 tablets by mouth at bedtime Melatonin 5 mg tablet Active 10 mg PO AT BEDTIME March 19, 2025 12:00am Start: 02-16-2022 take 2 capsules by m outh once daily at bedtime Melatonin 5 mg cap Take 2 capsules by mouth daily at bedtime. 02/16/2022 Active take 2 tablets by mo uth once daily as needed melatonin 5 MG tablet Take 10 mg by mouth Nightly as needed. 0 Active Comment on above: Take 2 capsules by m outh daily at bedtime. Multiple Vitamin (multivitamin) tablet (13 sources) take 1 tablet by mouth once daily Multiple Vitamin (multivitamin) tablet Take 1 tablet by mouth daily. 0 Active Multivitamin preparation (1 source) Start: 4 take 1 tablet by mouth once daily Multivitamin Active 1 TABLET PO DAILY January 19, 2024 12:00am multivitamin tablet (20 sources) Start: 2 take 1 tablet by mouth once daily multivitamin tablet Take 1 tablet by mouth once daily. 02/16/2022 Active Start: 02-16-2022 take 1 tablet by emma th once daily multivitamin tablet Take 1 tablet by mouth once daily. 0 02/16/2022 Active Comment on above: Take 1 tablet by emma th once daily. Multivitamin tablet (4 sources) Start: 01-19-2024 Multivitamin tablet Active 1 {tbl} PO DAILY January 19, 2024 12:00am Pearson (Nk) (4 sources) Start: 02-06-2020 Pearson (Nk) Active February 06, 2020 12:00am Start: 02-06-2020 Pearson (Nk) A ctive February 05, 2020 11:00pm Non-Adherent Bandage (EXCILON DRAIN) 4 X 4 spge (20 sources) Start: 09-02-2023 Non-Adherent B andage (EXCILON DRAIN) 4 X 4 spge Indications: Atonic neurogenic bladder , Chronic suprapubic catheter (HCC) Apply 1 application to affected area once daily. 30 Each 09/02/2023 Active Comment on above: Apply 1 application to affected area once daily. nystatin 100 unt/mg topical powder (20 sources) Polyene Antifungal Start: 05-17-2023 Nystatin Ac tive 1 APPLIC TOPICAL DAILY May 17, 2023 12:00am Start: 02-16-2022 Nystatin 100,0 00 unit/gram powder Active 1 NMA TOPICAL TWICE A DAY May 17, 2023 12:00am Comment on above: Apply 1 application to affected area twice daily. 24 hr oxybutynin chloride 15 mg extended release oral tablet (20 sources) Cholinergic Muscarinic Antagonist Start: 08-31-2024 take 1 tablet by mouth once daily Oxybutynin Chloride 15 mg tablet extended release 24hr Active 15 mg PO DAILY March 19, 2025 12:00am Start: 08-25-2024 take 1 tablet by emma th once daily oxybutynin ER (DITROPAN XL) 15 mg 24 hr Extended Rel Tab Indications: Painful bladder spasm Take 1 tablet by mouth once daily. 90 tablet 3 08/25/2024 Active Start: 05-17-2023 End: 03-19-2025 take 1 tablet by mouth once daily Oxybutynin Chloride 10 mg tablet extended release 24hr Discontinued 10 mg PO DAILY May 17, 2023 12:00am March 19, 2025 2:03pm Comment on above: Take 10 mg by mouth once daily. For bladder spasms pantoprazole 40 mg delayed release oral tablet (5 sources) Proton Pump Inhibitor Start: take 1 tablet by mouth once daily Pantoprazole 40 mg tablet,delayed release (DR/EC) Active 40 mg PO DAILY January 19, 2024 12:00am polyvinyl alcohol 0.005 ml/ml / povidone 6 mg/ml ophthalmic solution (20 sources) Start: Polyvinyl Alcohol-Povidone (Clear Eyes Natural Tears) 0.5-0.6 % drops Active 1 - 2 NMA EACH EYE Q1H as needed for dry eye(s) March 19, 2025 12:00am polyvinyl alcoho l/povidone (ARTIFICIAL TEARS OPHTHALMIC) Use in eyes as needed. Active polyvinyl alcoho l/povidone (ARTIFICIAL TEARS OPHTHALMIC) Use in eyes as needed. 0 Active Comment on above: Use in eyes as neede d. promethazine hydrochloride 25 mg oral tablet (20 sources) Phenothiazine Start: 05-17-2023 Promethazine 25 mg tablet Active 12.5 mg PO Q4H as needed for allergy symptoms May 17, 2023 12:00am Start: 02-16-2022 take 1 tablet by emma th every four hours as needed promethazine (PHENERGAN) 25 mg tablet Take 1 tablet by mouth every 4 hours as needed for nausea/vomiting. 02/16/2022 Active take 1 tablet by emma th every six hours as needed for nausea and vomiting promethazine (Phenergan) 25 MG tablet Take 25 mg by mouth every 6 hours as needed for nausea or vomiting. 0 Active Comment on above: Take 1 tablet by emma th every 4 hours as needed for nausea/vomiting. sennosides, longterm 8.6 mg oral tablet (20 sources) Start: 2021 take 2 tablets by mouth once daily senna (SENNA) 8.6 mg tab Take 2 tablets by mouth once daily. 02/16/2022 Active Comment on above: Take 2 tablets by [facility] once daily. sodium chloride 0.154 meq/ml irrigation solution (18 sources) Start: 2022 NaCl 0.9% irrigation solution sodium phosphate, dibasic 59.3 mg/ml / sodium phosphate, monobasic 161 mg/ml enema (20 sources) Start: 2021 take 133 mL rectal route once daily as needed for constipation sodium phosphate-sodium bisphosphate (FLEET ENEMA) enema 133 mL by RECTAL route once daily as needed for constipation. 02/16/2022 Active Comment on above: 133 mL by RECTAL rou te once daily as needed for constipation. sulfamethoxazole 800 mg / trimethoprim 160 mg oral tablet (20 sources) Dihydrofolate Reductase Inhibitor Antibacterial, Sulfonamide Antimicrobial Start: 2023 End: 2024 Sulfamethoxazole- Trimethoprim 800-160 mg tablet Active 1 {tbl} PO TWICE A DAY 6 0 March 19, 2025 12:00am Start: 01-19-2024 take 1 tablet by emma th twice daily Sulfamethoxazole-Trimethoprim Active 1 T ABLET PO TWICE A DAY January 19, 2024 12:00am Start: 06-13-2017 End: 08-21-2018 Sulfamethoxazole-Trimethopri m 1 TABLET tablet Discontinued 1 {tbl} PO TWICE A DAY 14 June 13, 2017 12:00am August 21, 2018 2:38pm Start: 06-13-2017 End: 08-21-2018 take 1 tablet by mouth twice daily Sulfamethoxazole-Trimethoprim Discontinu ed 1 TABLET PO TWICE A DAY June 13, 2017 12:00am August 21, 2018 2:38pm ubidecarenone 100 mg oral capsule (5 sources) Start: 01-19-2024 take 10 capsules by mouth once daily Coenzyme Q10 100 mg capsule Active 100 mg PO DAILY January 19, 2024 12:00am Completed/Discontinued Medications Medication Drug Class(es) Dates Sig (Normalized) Sig (Original) acetaminophen 325 mg / oxyCODONE hydrochloride 5 mg oral tablet (18 sources) Opioid Agonist Start: 06-13-2017 End: 08-21-2018 Oxycodone-Acetamino phen 1 TABLET tablet Discontinued 1 {tbl} PO EVERY 6 HOURS NEEDED as needed for Pain 10 June 13, 2017 12:00am August 21, 2018 2:38pm Start: 06-13-2017 End: 08-21-2018 take 1 tablet by mouth every six hours as needed Oxycodone-Acetaminophen Discontinued 1 TABLET PO EVERY 6 HOURS NEEDED June 13, 2017 12:00am August 21, 2018 2:38pm Start: 05-09-2015 End: 05-17-2015 OXYCODONE-ACETAMINOPHEN 10-3 25 MG TABS One tablet as needed every 4 hours for severe pain OXYCODONE-ACETAMINOPHEN [id number] Darrel Veloz DO Start: 04-08-2015 End: 04-16-2015 OXYCODONE-ACETAMINOPHEN 10-3 25 MG TABS One tablet as needed every 4 hours for severe pain up to 5 tablets daily OXYCODONE-ACETAMINOPHEN [id number] Darrel Veloz DO Start: 04-01-2015 End: 04-06-2015 take 1 tablet by mouth every four hours as needed for pain OXYCODONE-ACETAMINOPHEN 7.5-325 MG TABS One tablet by mouth every 4 hours as needed for severe pain OXYCODONE-ACETAMINOPHEN [id number] Darrel Veloz DO azithromycin 250 mg oral tablet (1 source) Macrolide Antimicrobial Start: 10-28-2015 End: 11-02-2015 take 2 tablets by mouth once, then take 1 tablet by mouth once daily, then take 2-5 tablets by mouth AZITHROMYCIN 250 MG TABS 2 PO on day 1 then 1 PO daily on days 2-5 AZITHROMYCIN [id number] Darrel Veloz DO onabotulinumtoxina 100 unt injection (2 sources) Acetylcholine Release Inhibitor Start: 08-09-2022 End: 08-09-2022 onabotulinum toxin type A 400 Units injection (BOTOX) Start: 03-21-2022 End: 03-21-2022 onabotulinum toxin type A 40 0 Units injection (BOTOX) smoking cessation 12 hr buPROPion hydrochloride 150 mg extended release oral tablet (1 source) Aminoketone Start: 06-08-2015 take 1 tablet by mouth twice daily BUPROPION HCL ER (SMOKING DET) 150 MG [id number] One tablet by mouth twice daily for smoking cessation BUPROPION HCL (SMOKING DETER) [id number] Darrel Veloz DO clonazePAM 0.5 mg oral tablet (20 sources) Benzodiazepine Start: 04-26-2022 End: 03-19-2025 take 1 tablet by mouth at bedtime as needed Clonazepam (Klonopin) 0.5 mg tablet Discontinued 0.5 mg PO AT BEDTIME NEEDED May 17, 2023 12:00am March 19, 2025 2:08pm Comment on above: Take 0.5mg Klonopin QHS PRN cyclobenzaprine hydrochloride 10 mg oral tablet (3 sources) Muscle Relaxant Start: 04-08-2015 take 1 tablet by mouth once daily as needed for pain CYCLOBENZAPRINE HCL 10 MG TABS One tablet by mouth daily at night as needed for muscle pain CYCLOBENZAPRINE HCL [id number] Darrel Veloz DO Start: 04-01-2015 End: 04-08-2015 CYCLOBENZAPRINE HCL 5 MG TAB S 1-2 tablets three times a day as needed CYCLOBENZAPRINE HCL [id number] Darrel Veloz DO dantrolene sodium 25 mg oral capsule (20 sources) Skeletal Muscle Relaxant Start: 04-26-2022 End: 03-19-2025 take 1 capsule by mouth twice daily Dantrolene 25 mg capsule Discontinued 25 mg PO TWICE A DAY May 17, 2023 12:00am March 19, 2025 2:07pm Comment on above: Take 1 capsule by [facility] twice daily. docusate sodium 100 mg oral tablet (20 sources) Start: 01-19-2024 End: 03-19-2025 take 1 tablet by mouth once daily Docusate Sodium (Dok) 100 mg tablet Discontinued 100 mg PO DAILY January 19, 2024 12:00am March 19, 2025 2:07pm take 1 capsule by mouth twice [place] docusate sodium (COLACE) 100 mg capsule Take 100 mg by mouth twice daily. Active Comment on above: Take 100 mg by mouth twice daily. famotidine 20 mg oral tablet (20 sources) Histamine-2 Receptor Antagonist Start: 02-17-20 End: 03-19-20 take 1 tablet by mouth twice daily Famotidine 20 mg tablet Discontinued 20 mg PO TWICE A DAY May 17, 2023 12:00am March 19, 2025 2:07pm Comment on above: Take 1 tablet by [facility] twice daily. LORazepam 1 mg oral tablet (1 source) Benzodiazepine Start: 09-19-20 End: 02-17-20 ATIVAN 1 MG TAB Take one(1) tablet daily at bedtime. 30 2 09/19/2005 02/16/2022 Discontinued (Discontinued by another Health Care Provider) Comment on above: Take one(1) tablet d aily at bedtime. methocarbamol 500 mg oral tablet (20 sources) Muscle Relaxant Start: 05-17-20 take 1000 mg by mouth three times daily Methocarbamol Active 1000 MG PO THREE TIMES A DAY May 17, 2023 12:00am Start: 02-16-2022 End: 03-19-2025 take 2 tablets by mouth three times daily Methocarbamol 500 mg tablet Discontinued 1000 mg PO THREE TIMES A DAY May 17, 2023 12:00am March 19, 2025 2:07pm take 2 tablets by mo ut once daily as needed for muscle spasms methocarbamol (Robaxin) 500 MG tablet Take 1,000 mg by mouth Nightly as needed for muscle spasms. 0 Active Comment on above: Take 2 tablets by mo uth three times daily. naproxen 500 mg oral tablet (2 sources) Nonsteroidal Anti-inflammatory Drug Start: 07-26-20 14 End: 04-08-20 15 take 1 tablet by mouth four times daily NAPROSYN 500 MG TABS One tablet by mouth four times daily NAPROXEN [id number] Linus Deng nicotine 2 mg chewing gum (1 source) Cholinergic Nicotinic Agonist Start: 06-08-20 15 COMMIT 2 MG LOZG 1 PO hourly as needed for cravings NICOTINE POLACRILEX [id number] Darrel Veloz DO oxyCODONE hydrochloride 5 mg oral tablet (20 sources) Opioid Agonist Start: 12-07-19 End: 03-19-20 take 1 tablet by mouth every six hours as needed for pain Oxycodone 5 mg tablet Discontinued 5 mg PO EVERY 6 HOURS as needed for pain 14 3 0 December 07, 2023 March 19, 2025 2:07pm Bimalleolar fracture Start: 08-30-2016 End: 08-30-2016 Oxycodone (Oxycontin) 15 MG tablet Discontinued 30 mg PO Q12H 14 0 August 30, 2016 1:00am August 30, 2016 8:37am potassium chloride 20 meq extended release oral tablet (4 sources) Start: 09-25-2024 End: 03-19-2025 take 1 tablet by mouth twice daily Potassium Chloride 20 mEq tablet extended release Discontinued 20 meq PO TWICE A DAY 10 0 September 25, 2024 1:00am March 19, 2025 2:07pm sertraline 100 mg oral tablet (15 sources) Serotonin Reuptake Inhibitor Start: 06-13-2017 End: 08-21-2018 take 1 tablet by mouth once daily Sertraline 100 MG tablet Discontinued 100 mg PO DAILY June 13, 2017 12:00am August 21, 2018 2:38pm tiZANidine 4 mg oral tablet (20 sources) Central alpha-2 Adrenergic Agonist Start: 05-17-2023 take 8 mg by mouth at bedtime Tizanidine Active 8 MG PO AT BEDTIME May 17, 2023 12:00am Start: 04-26-2022 End: 03-19-2025 take 2 tablets by mouth at bedtime Tizanidine 4 mg tablet Discontinued 8 mg PO AT BEDTIME May 17, 2023 12:00am March 19, 2025 2:03pm Start: 03-21-2022 take 1 tablet by emma th once daily at bedtime tiZANidine (ZANAFLEX) 4 mg tablet Take 1 tablet by mouth daily at bedtime. 30 tablet 0 03/21/2022 Active Comment on above: Take 1 tablet by emma th daily at bedtime. Take 2 tablets by mo uth daily at bedtime. traMADol hydrochloride 50 mg oral tablet (3 sources) Opioid Agonist Start: 5 End: 5 take 1 tablet by mouth four times daily TRAMADOL HCL 50 MG TABS One tablet by mouth four times daily TRAMADOL HCL [id number] Darrel Veloz DO Start: 09-11-2005 End: 02-16-2022 ULTRAM 50 MG TAB Indications : Pain in joint, lower leg Take one tablet every six(6) hours as needed for pain. 40 1 09/11/2005 02/16/2022 Discontinued (Discontinued by another Health Care Provider) Comment on above: Take one tablet ever y six(6) hours as needed for pain. Problems Active Problems Problem Classification Problem Date Documented Date Episodic/Chronic Administrative/social admission (5 sources) Other reduced mobility; Translations: [Other specified conditions influencing health status] Onset: 07-18-2023 Episodic Alcohol-related disorders (20 sources) Alcohol abuse; Translations: [Alcohol abuse, uncomplicated] Onset: 08-17-2019 01-18-2021 Chronic Anxiety disorders (1 source) Anxiety; Translations: [Anxiety disorder, unspecified] Chronic Chronic obstructive pulmonary disease and bronchiectasis (1 source) Chronic obstructive lung disease; Translations: [Chronic obstructive pulmonary disease, unspecified] Onset: 06-08-2015 06-08-2015 Chronic Complication of device; implant or graft (1 source) Disorder of cystostomy catheter; Translations: [Breakdown (mechanical) of cystostomy catheter, initial encounter] 04-12-2025 Episodic E Codes: Fall (20 sources) Fall in group home; Translations: [Unspecified fall, initial encounter] 02-15-2023 Episodic Epilepsy; convulsions (20 sources) Generalized convulsive epilepsy; Translations: [Generalized idiopathic epilepsy and epileptic syndromes, not intractable, without status epilepticus] Onset: 09-19-2005 09-19-2005 Chronic Esophageal disorders (8 sources) Gastroesophageal reflux disease without esophagitis; Translations: [Gastro-esophageal reflux disease without esophagitis] Onset: 07-18-2023 07-18-2023 Chronic Fever of unknown origin (15 sources) Pyrexia of unknown origin; Translations: [Fever, unspecified] 01-19-2021 Episodic Fluid and electrolyte disorders (20 sources) Acute hyponatremia; Translations: [Hypo-osmolality and hyponatremia] Onset: 09-28-2024 01-19-2021 Episodic Fracture of lower limb (18 sources) Fracture of tibia AND fibula ; Translations: [Unspecified fracture of upper end of unspecified tibia, initial encounter for closed fracture] 02-15-2023 Episodic Fracture of upper limb (15 sources) Fracture of greater tuberosity of humerus; Translations: [Displaced fracture of greater tuberosity of unspecified humerus, initial encounter for closed fracture] 12-28-2020 Episodic Gastritis and duodenitis (8 sources) Chronic superficial gastritis; Translations: [Chronic superficial gastritis without bleeding] Onset: 08-11-2023 08-11-2023 Chronic Genitourinary symptoms and ill-defined conditions (8 sources) Patient encounter status; Translations: [Encounter for attention to cystostomy] Onset: 04-08-2025 01-19-2024 Chronic Genitourinary symptoms and ill-defined conditions (5 sources) Blood in urine; Translations: [Hematuria, unspecified] Onset: 02-02-2025 06-30-2024 Episodic Hepatitis (14 sources) Chronic hepatitis C; Translations: [Chronic viral hepatitis C] Onset: 08-17-2019 07-09-2022 Chronic Hepatitis (20 sources) Viral hepatitis, type A; Translations: [Hepatitis A without hepatic coma] Onset: 08-17-2019 09-11-2019 Episodic Joint disorders and dislocations; trauma-related (1 source) Derangement of knee; Translations: [Unspecified internal derangement of unspecified knee] Onset: 07-26-2014 07-26-2014 Chronic Menstrual disorders (2 sources) Menorrhagia; Translations: [Excessive and frequent menstruation with regular cycle] Onset: 04-01-2015 Resolved: 05-09-2015 05-09-2015 Chronic Mood disorders (20 sources) Depressive disorder; Translations: [Depression, unspecified depression type] Onset: 06-02-2017 Chronic Mycoses (5 sources) Candidiasis of vagina; Translations: [Candidiasis of vagina] 01-19-2024 Episodic Nonspecific chest pain (20 sources) Chest pain; Translations: [Chest pain, unspecified] Onset: 11-02-2024 04-12-2020 Episodic Open wounds of head; neck; and trunk (11 sources) Laceration of forehead; Translations: [Laceration without foreign body of other part of head, initial encounter] 05-17-2023 Episodic Osteoarthritis (20 sources) Localized, primary osteoarthritis; Translations: [Osteoarthritis of knee] Onset: 09-19-2005 07-26-2016 Chronic Other acquired deformities (1 source) Contracture of multiple joints; Translations: [Contracture, unspecified joint] Chronic Other bone disease and musculoskeletal deformities (12 sources) Osteopenia; Translations: [Other specified disorders of bone density and structure, unspecified site] 02-15-2023 Episodic Other circulatory disease (5 sources) Elevated blood-pressure reading without diagnosis of hypertension; Translations: [Elevated blood-pressure reading, without diagnosis of hypertension] 01-19-2024 Episodic Other circulatory disease (4 sources) Transient hypotension; Translations: [Hypotension, unspecified] 10-03-2024 Episodic Other connective tissue disease (1 source) History of total knee arthroplasty; Translations: [Presence of unspecified artificial knee joint] Onset: 09-12-2016 09-20-2016 Chronic Other connective tissue disease (2 sources) Spasticity; Translations: [Cramp and spasm] Episodic Other diseases of bladder and urethra (20 sources) Neurogenic bladder; Translations: [Neuromuscular dysfunction of bladder, unspecified] Onset: 11-03-2021 07-09-2022 Chronic Other diseases of bladder and urethra (2 sources) Flaccid neurogenic bladder; 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, not elsewhere classified] 07-26-2023 Chronic Other diseases of bladder and urethra (2 sources) Spasm of bladder; Translations: [Other specified disorders of bladder] 06-30-2024 Chronic Other diseases of bladder and urethra (1 source) Neuromuscular dysfunction of bladder, unspecified; Translations: [Neurogenic bladder] Onset: 08-25-2024 Chronic Other hematologic conditions (15 sources) Raised cardiac enzyme or marker; Translations: [Other specified abnormal findings of blood chemistry] Onset: 07-30-2022 07-30-2022 Episodic Other hereditary and degenerative nervous system conditions (15 sources) Upper motor neuron disease; 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] 01-19-2021 Chronic Other infections; including parasitic (15 sources) History of hepatitis B; Translations: [Personal history of other infectious and parasitic diseases] 09-11-2019 Episodic Other infections; including parasitic (15 sources) History of hepatitis C; Translations: [Personal history of other infectious and parasitic diseases] 09-11-2019 Episodic Other injuries and conditions due to external causes (11 sources) Closed injury of head; Translations: [Unspecified injury of head, initial encounter] 05-17-2023 Episodic Other liver diseases (15 sources) Jaundice; Translations: [Unspecified jaundice] 09-11-2019 Episodic Other liver diseases (15 sources) Elevated liver enzymes level; Translations: [Abnormal levels of other serum enzymes] 10-26-2019 Episodic Other liver diseases (20 sources) Hepatic failure; Translations: [Hepatic failure, unspecified without coma] Onset: 08-17-2019 10-26-2019 Episodic Other nervous system disorders (1 source) Difficulty in walking, not elsewhere classified; Translations: [Difficulty in walking, not elsewhere classified] Onset: 07-31-2024 Chronic Other nervous system disorders (1 source) Polyneuropathy, unspecified; Translations: [Polyneuropathy, unspecified] Onset: 07-31-2024 Chronic Other nervous system disorders (4 sources) Abnormal gait; Translations: [Unspecified abnormalities of gait and mobility] Episodic Other nervous system disorders (11 sources) History of clinical finding in subject; Translations: [Personal history of other diseases of the nervous system and sense organs] 05-17-2023 Episodic Other nutritional; endocrine; and metabolic disorders (1 source) Obesity; Translations: [Obesity, unspecified] Onset: 04-01-2015 04-01-2015 Chronic Other nutritional; endocrine; and metabolic disorders (6 sources) Body mass index 40+ - severely obese; Translations: [Morbid (severe) obesity due to excess calories] 07-18-2023 Chronic Other nutritional; endocrine; and metabolic disorders (13 sources) Morbid obesity; Translations: [Morbid (severe) obesity due to excess calories] Onset: 07-12-2023 07-12-2023 Chronic Other nutritional; endocrine; and metabolic disorders (2 sources) Morbid (severe) obesity due to excess calories; Translations: [Morbid (severe) obesity due to excess calories (HCC)] Onset: 07-18-2023 Chronic Other nutritional; endocrine; and metabolic disorders (2 sources) Body mass index (BMI) 45.0-49.9, adult; Translations: [Body mass index (BMI) 45.0-49.9, adult (HCC)] Onset: 07-18-2023 Chronic Other skin disorders (2 sources) Neck swelling; Translations: [Localized swelling, mass and lump, neck] 04-01-2025 Episodic Other skin disorders (1 source) Localized swelling, mass and lump, neck; Translations: [Localized swelling, mass and lump, neck] Onset: 04-08-2025 Episodic Paralysis (20 sources) Spastic tetraplegia; Translations: [Quadriplegia, unspecified] Onset: 02-22-2022 Chronic Residual codes; unclassified (6 sources) Dependence on wheelchair; Translations: [Dependence on wheelchair] 07-18-2023 Chronic Residual codes; unclassified (2 sources) Dependence on wheelchair; Translations: [Dependence on wheelchair] Onset: 07-18-2023 Chronic Residual codes; unclassified (7 sources) Tobacco use and exposure - finding; Translations: [Tobacco use] Onset: 07-18-2023 07-18-2023 Episodic Residual codes; unclassified (1 source) Tobacco use; Translations: [Tobacco use] Onset: 07-18-2023 Episodic Residual codes; unclassified (5 sources) H/O: respiratory disease; Translations: [Other specified personal risk factors, not elsewhere classified] 01-19-2024 Episodic Screening or history of mental health and substance abuse (1 source) Tobacco user; Translations: [Tobacco use] Onset: 06-08-2015 06-08-2015 Chronic Sexually transmitted infections (not HIV or hepatitis) (15 sources) Sexually transmitted infectious disease; Translations: [Unspecified sexually transmitted disease] 10-26-2019 Episodic Skin and subcutaneous tissue infections (4 sources) Abscess of left thigh; Translations: [Cutaneous abscess of left lower limb] 03-20-2024 Episodic Spondylosis; intervertebral disc disorders; other back problems (1 source) Intervertebral disc disorder of lumbar region with myelopathy; Translations: [Intervertebral disc disorders with myelopathy, lumbar region] Onset: 04-01-2015 04-01-2015 Chronic Spondylosis; intervertebral disc disorders; other back problems (20 sources) Backache; Translations: [Dorsalgia, unspecified] Onset: 07-18-2023 07-18-2023 Episodic Substance-related disorders (20 sources) Substance abuse; Translations: [Nicotine dependence] Onset: 05-19-2015 05-19-2015 Chronic Substance-related disorders (20 sources) Opioid withdrawal; Translations: [Opioid use, unspecified with withdrawal] 03-30-2019 Episodic Suicide and intentional self-inflicted injury (20 sources) Suicidal thoughts; Translations: [Suicidal ideations] 12-28-2020 Episodic Unclassified (1 source) Aftercare ; Translations: [Encounter for other orthopedic aftercare] Onset: 09-12-2016 09-20-2016 Urinary tract infections (11 sources) Urinary tract infectious disease; Translations: [Urinary tract infection, site not specified] 01-19-2024 Episodic Past or Other Problems Problem Classification Problem Date Documented Da te Episodic/Chronic Abdominal pain (1 source) Pain in pelvis; Translations: [Pelvic and perineal pain] Onset: 05-09-2015 05-09-2015 Episodic Other aftercare (1 source) Follow-up orthopedic assessment; Translations: [Encounter for other orthopedic aftercare] Onset: 08-13-2014 08-16-2014 Episodic Other circulatory disease (1 source) Hypotension, unspecified; Translations: [Hypotension, unspecified] Onset: 10-15-2024 Episodic Other MOTORMAN/WOMAN infection and poliomyelitis (20 sources) Spinal epidural abscess; Translations: [Intraspinal abscess and granuloma] Onset: 02-22-2022 Episodic Other connective tissue disease (2 sources) Other affections of shoulder region, not elsewhere classified; Translations: [Biceps tendinitis] Onset: 01-24-2015 01-31-2015 Episodic Other gastrointestinal disorders (1 source) Constipation; Translations: [Constipation, unspecified] Onset: 05-09-2015 05-09-2015 Episodic Other injuries and conditions due to external causes (20 sources) History of spinal cord injury; Translations: [Personal history of other (healed) physical injury and trauma] Onset: 02-22-2022 Episodic Other lower respiratory disease (14 sources) Dyspnea; Translations: [Shortness of breath] Onset: 04-11-2020 07-09-2022 Episodic Other non-traumatic joint disorders (4 sources) Pain in joint, shoulder region; Translations: [Knee pain] Onset: 07-26-2014 Resolved: 06-08-2015 01-24-2015 Episodic Poisoning by other medications and drugs (14 sources) Poisoning by unspecified drugs, medicaments and biological substances, accidental (unintentional), initial encounter; Translations: [Poisoning by unspecified drug or medicinal substance] Onset: 10-25-2021 07-09-2022 Episodic Respiratory failure; insufficiency; arrest (adult) (14 sources) Respiratory arrest; Translations: [Respiratory arrest] Onset: 10-25-2021 07-09-2022 Episodic Sprains and strains (1 source) Sprain of unspecified rotator cuff capsule, initial encounter; Translations: [Sprain of unspecified rotator cuff capsule, initial encounter] Onset: 01-24-2015 01-31-2015 Episodic Results Test Name Value Interpretation Reference Range Facility Absolute lymphocyte countOrd ered By: Renato Henson on 04-12-2025 Lymphocytes Auto (Unsp spec) [#/Vol] 2.22 10*3/uL 0.83-4.51 [facility] Absolute neutrophil countOrd ered By: Renato Henson on 04-12-2025 Neutrophils (Bld) [#/Vol] 6.2 10*3/uL 2.0-7.7 [facility] Anion gap in Serum or Plasma Ordered By: Renato Henson on 04-12-2025 Anion gap [Moles/Vol] 12 mmol/L 5-15 [facility] Automated lymphocyte count a s percentage of total leukocytesOrdered By: Renato Henson on 04-12-2025 Lymphocytes/100 WBC Auto (Unsp spec) 24.0 % 19-41 [facility] BUN/creatinine ratioOrdered By: Renato Henson on 04-12-2025 Urea nitrogen/Creatinine [Mass ratio] 17.2 mg/mg 10-20 [facility] Basophil percentageOrdered B y: Renato Henson on 04-12-2025 Basophils/100 WBC (Bld) 0.6 % 0-1 [facility] Bilirubin Test strip Ql (U)O rdered By: Renato Henson on 04-12-2025 Bilirubin Ql (U) Negative Negative [facility] Carbon dioxide, total [Moles /volume] in Central venous bloodOrdered By: Renato Henson on 04-12-2025 CO2 [Moles/Vol] 26.0 mmol/L 21.0-32.0 [facility] Chloride assayOrdered By: Kwadwo Henson on 04-12-2025 Chloride [Moles/Vol] 101 mmol/L 98-108 [facility] Eosinophil percentageOrdered By: Renato Henson on 04-12-2025 Eosinophils/100 WBC (Bld) 2.5 % 0-5 [facility] Erythrocyte distribution wid th ratioOrdered By: Renato Henson on 04-12-2025 Erythrocyte distribution width (RBC) [Ratio] 13.0 % 11.6-14.6 [facility] Erythrocyte distribution wid th standard deviationOrdered By: Renato Henson on 04-12-2025 Erythrocyte distribution width (RBC) [Ratio] 45.2 fl High 35.1-43.9 [facility] Glomerular filtration rate ( GFR) estimation/1.73 sq m using serum, plasma, or whole bOrdered By: Renato Henson on 04-12-2025 GFR/1.73 sq M.predicted among non-blacks MDRD (S/P/Bld) [Vol rate/Area] 108 mL/min/{1.73_m2} >60 [facility] Comment on above: mL/min/1.73m2 CKD-EP I Creatinine Equation (2020) Hematocrit Auto (Bld) [Volum e fraction]Ordered By: Renato Henson on 04-12-2025 Hematocrit (Bld) [Volume fraction] 34.3 % Low 37-47 [facility] Hemoglobin measurementOrdere d By: Renato Henson on 04-12-2025 Hemoglobin (Bld) [Mass/Vol] 11.7 g/dL Low 12.0-15.0 [facility] Immature granulocytes/100 WB C Auto (Bld)Ordered By: Renato Henson on 04-12-2025 Immature granulocytes/100 WBC (Bld) 0.500 % 0.0-0.9 [facility] Comment on above: IG% - Immature Granu locytes (promyelocytes, myelocytes and metamyelocytes) > 1% indicates that a LEFT SHIFT is Present. Ketones Test strip Ql (U)Ord ered By: Renato Henson on 04-12-2025 Ketones Ql (U) Negative Negative [facility] MCV (mean corpuscular volume ) determinationOrdered By: Renato Henson on 04-12-2025 MCV (RBC) [Entitic vol] 96.3 fL 81-99 [facility] Mean corpuscular hemoglobin (MCH) determinationOrdered By: Renato Henson on 04-12-2025 MCH (RBC) [Entitic mass] 32.9 pg High 27.0-32.0 [facility] Mean corpuscular hemoglobin concentration (MCHC) determinationOrdered By: Renato Henson on 04-12-2025 MCHC (RBC) [Mass/Vol] 34.1 g/dL 32-36 [facility] Mean platelet volume determi nationOrdered By: Renato Henson on 04-12-2025 Platelet mean volume (Bld) [Entitic vol] 10.0 fL 6.2-12.0 [facility] Microscopic analysis of urin e for red blood cells (RBC)Ordered By: Renato Henson on 04-12-2025 Microscopic analysis of urine for red blood cells (RBC) 0-5 SEEN /hpf 0-5 [facility] Monocyte percentageOrdered B y: Renato Henson on 04-12-2025 Monocytes/100 WBC (Bld) 5.6 % 0-10 [facility] Mucus LM Ql (Urine sed)Order ed By: Renato Henson on 04-12-2025 Mucus Ql (Urine sed) 0 SEEN /hpf [facility] Neutrophil percentageOrdered By: Renato Henson on 04-12-2025 Neutrophils/100 WBC (Bld) 66.8 % 47-70 [facility] Nitrite Test strip Ql (U)Ord ered By: Renato Henson on 04-12-2025 Nitrite Ql (U) Positive High Negative [facility] Nucleated red blood cell per centageOrdered By: Renato Henson on 04-12-2025 Nucleated RBC/100 WBC (Bld) [Ratio] 0 % 0-5 [facility] Platelet countOrdered By: Kwadwo Henson on 04-12-2025 Platelets (Bld) [#/Vol] 260 10*3/uL 150-450 [facility] Potassium measurement (mass/ volume)Ordered By: Renato Henson on 04-12-2025 Potassium (Unsp spec) [Mass/Vol] 3.2 mmol/L Low 3.3-5.1 [facility] Protein Test strip Ql (U)Ord ered By: Renato Henson on 04-12-2025 Protein Ql (U) 30 mg/dl High Negative [facility] RBC Auto (Bld) [#/Vol]Ordere d By: Renato Henson on 04-12-2025 RBC (Bld) [#/Vol] 3.56 10*6/uL Low 4.2-5.4 [facility] Serum creatinine measurement (mass/volume)Ordered By: Renato Henson on 04-12-2025 Creatinine [Mass/Vol] 0.65 mg/dL Low 0.70-1.20 [facility] Serum glucose measurement (m ass/volume)Ordered By: Renato Henson on 04-12-2025 Glucose [Mass/Vol] 101 mg/dL High 70-99 [facility] Serum or plasma calcium heena urement (mass/volume)Ordered By: Renato Henson on 04-12-2025 Calcium [Mass/Vol] 9.0 mg/dL 7.6-11.0 [facility] Serum or plasma urea nitroge n measurement (mass/volume)Ordered By: Renato Henson on 04-12-2025 Urea nitrogen [Mass/Vol] 11 mg/dL 4-19 [facility] Sodium levelOrdered By: Renato Henson on 04-12-2025 Sodium [Moles/Vol] 139 mmol/L 133-145 [facility] Squamous epithelial cells de tection in urine sediment by light microscopyOrdered By: Renaot Henson on 04-12-2025 Epithelial cells.squamous LM Ql (Urine sed) 0-5 SEEN /hpf 5-10 [facility] Transitional cells detection in urine sediment by light microscopyOrdered By: Renato Henson on 04-12-2025 Transitional cells LM Ql (Urine sed) 0-5 SEEN /hpf 0-5 [facility] Urine clarityOrdered By: Jono Henson on 04-12-2025 Clarity (U) Clear Clear [facility] Urine color determinationOrd ered By: Renato Henson on 04-12-2025 Color (U) Straw Yellow [facility] Urine glucose detectionOrder ed By: Renato Henson on 04-12-2025 Glucose Ql (U) Normal mg/dl Normal [facility] Urine leukocyte esterase det ection by dipstickOrdered By: Renato Henson on 04-12-2025 Leukocyte esterase Test strip Ql (U) 500 /ul High Negative [facility] Urine pHOrdered By: Renato castañeda on 04-12-2025 pH (U) 7.0 [pH] 5.0 - 8.0 [facility] Urine sediment bacteria coun t by microscopy (number/high power field)Ordered By: Renato Henson on 04-12-2025 Bacteria LM.HPF (Urine sed) [#/Area] 2 /[HPF] None Seen [facility] Urine specific gravity measu rementOrdered By: Renato Henson on 04-12-2025 Specific gravity (U) [Rel density] 1.005 1.002-1.030 [facility] Urine urobilinogen measureme ntOrdered By: Renato Henson on 04-12-2025 Urobilinogen Ql (U) Normal mg/dl Normal [facility] White blood cell (WBC) count Ordered By: Renato Henson on 04-12-2025 WBC (Bld) [#/Vol] 9.2 10*3/uL 4.4-11.0 [facility] White blood cell countOrdere d By: Renato Henson on 04-12-2025 White blood cell count 10-25 SEEN /hpf 0-5 [facility] Laboratory - Specimen inform ationon 04-08-2025 Specimen source Nom (Unsp spec) Hold for add-ons. [employer] Comment on above: Auto resulted. No Panel Informationon 04-08 [employer] Urinalysis dipstick W Reflex Culture panel (U)on 04-08-2025 Bilirubin Ql (U) Negative Negative mg/dL [employer] Clarity (U) Clear Clear [employer] Color (U) Light Yellow Abnormal Yellow [employer] Epithelial cells.squamous LM.HPF (Urine sed) [#/Area] Occasional Abnormal None /LPF [employer] Glucose Ql (U) Normal Normal mg/dL [employer] Hemoglobin Ql (U) 1+ Abnormal Negative, Trace [employer] Interpretation and review of laboratory results Abnormal [employer] Ketones (U) [Mass/Vol] 20 mg/dL Abnormal Negative [employer] Leukocyte esterase Test strip Ql (U) 500 Abnormal Negative WBCs/mcL [employer] Mucus Ql (Urine sed) Rare Abnormal None /LPF [employer] Nitrite Ql (U) Negative Negative [employer] pH (U) 6.5 [pH] 5.0 - 8.0 pH [employer] Protein (U) [Mass/Vol] Negative Negative mg/dL [employer] RBC LM.HPF (Urine sed) [#/Area] 2 /[HPF] [employer] Specific gravity (U) [Rel density] 1.005 1.002 - 1.030 [facility] Urobilinogen (U) [Mass/Vol] Normal Normal mg/dL [facility] WBC LM.HPF (Urine sed) [#/Area] 12 /[HPF] High [facility] Bacteria identified Cx Nom (U) Culture, Urine Status = F See comment Normal [facility] Comment on above: Order Comment: Multi ple organisms greater than 100,000 CFU/ML. Results suggest improper specimen collection or delay in delivery. Performed By: #### 5 7019-2 #### [facility] [address] [place] [address] Culture, Blood (WB)on 2024 CUB Blood cultures x2, f rom two different sites No growth in 5 days. Normal [facility] Comment on above: Performed By: #### L 300.3900, M200.1000, L500.4050, L300.4310, L503.6005, L100.0100 #### [facility] [address] [place], [address] Urine Cultureon 04-02-2025 URC Mixed Gram Pos Gram Neg Org [place] Count >100,000 MIXC Mixed contaminants. Submit a new specimen if indicated. Normal [facility] Comment on above: Performed By: #### M 100.2200 #### [facility] [address] [place] [place], [address] Absolute lymphocyte countOrd ered By: Samuel Hodges on 04-01-2025 Lymphocytes Auto (Unsp spec) [#/Vol] 0.66 10*3/uL Low 0.83-4.51 [facility] Absolute neutrophil countOrd ered By: Samuel Hodges on 04-01-2025 Neutrophils (Bld) [#/Vol] 4.3 10*3/uL 2.0-7.7 [facility] Activated partial thrombopla stin time (aPTT) in platelet poor plasma by coagulation aOrdered By: Samuel Hodges on 04-01-2025 aPTT Coag (PPP) [Time] 33.1 s 24.1-36.2 [facility] Anion gap in Serum or Plasma Ordered By: Samuel Hodges on 04-01-2025 Anion gap [Moles/Vol] 19 mmol/L High 5-15 [facility] Automated lymphocyte count a s percentage of total leukocytesOrdered By: Samuel Hodges on 04-01-2025 Lymphocytes/100 WBC Auto (Unsp spec) 12.1 % Low 19-41 [facility] BUN/creatinine ratioOrdered By: Samuel Hodges on 04-01-2025 Urea nitrogen/Creatinine [Mass ratio] 13.8 mg/mg 10- [facility] Basophil percentageOrdered B y: Samuel Hodges on 04-01-2025 Basophils/100 WBC (Bld) 0.9 % 0- [facility] Bilirubin Test strip Ql (U)O rdered By: Samuel Hodges on 04-01-2025 Bilirubin Ql (U) Negative Negative [facility] Bilirubin, totalOrdered By: Samuel Hodges on 04-01-2025 Bilirubin [Mass/Vol] 0.73 mg/dL 0.00-1.30 [facility] Blood cultureOrdered By: Sandy Hodges on 04-01-2025 Bacteria identified Cx Nom (Bld) No growth in 5 days. [facility] Bacteria identified Cx Nom (Bld) No growth in 5 days. [facility] CBC W/Diff, Automatedon 03-23 Absolute Lymph 0.66 X10 3/uL Low 0.83-4.51 [facility] Comment on above: Performed By: #### L 300.3900, M200.1000, L500.4050, L300.4310, L503.6005, L100.0100 #### [facility] [address] [place], [address] Absolute Neut 4.3 X10 3/uL Normal 2.0-7.7 [facility] Comment on above: Performed By: #### L 300.3900, M200.1000, L500.4050, L300.4310, L503.6005, L100.0100 #### [facility] [address] [place], [address] Basophils/100 WBC (Bld) 0.9 % Normal 0-1 [facility] Comment on above: Performed By: #### L 300.3900, M200.1000, L500.4050, L300.4310, L503.6005, L100.0100 #### [facility] [address] [place], [address] Eosinophils/100 WBC (Bld) 2.2 % Normal 0-5 [facility] Comment on above: Performed By: #### L 300.3900, M200.1000, L500.4050, L300.4310, L503.6005, L100.0100 #### [facility] [address] [place], [address] Erythrocyte distribution width (RBC) [Ratio] 13.2 % Normal 11.6-14.6 [facility] Comment on above: Performed By: #### L 300.3900, M200.1000, L500.4050, L300.4310, L503.6005, L100.0100 #### [facility] [address] [place], [address] Hematocrit (Bld) [Volume fraction] 38.9 % Normal 37-47 [facility] Comment on above: Performed By: #### L 300.3900, M200.1000, L500.4050, L300.4310, L503.6005, L100.0100 #### [facility] [address] [place], [address] Hemoglobin (Bld) [Mass/Vol] 13.2 g/dL Normal 12.0-15.0 [facility] Comment on above: Performed By: #### L 300.3900, M200.1000, L500.4050, L300.4310, L503.6005, L100.0100 #### [facility] [address] [place], [address] IG% 0.400 Normal 0.0-0.9 [facility] Comment on above: Result Comment: IG% - Immature Granulocytes (promyelocytes, myelocytes and metamyelocytes) > 1% indicates that a LEFT SHIFT is Present. Performed By: #### L 300.3900, M200.1000, L500.4050, L300.4310, L503.6005, L100.0100 #### [facility] [address] [place], [address] Lymphocytes/100 WBC (Bld) 12.1 % Low 19-41 [facility] Comment on above: Performed By: #### L 300.3900, M200.1000, L500.4050, L300.4310, L503.6005, L100.0100 #### [facility] [address] [place], [address] MCH (RBC) [Entitic mass] 33.3 pg High 27.0-32.0 [facility] Comment on above: Performed By: #### L 300.3900, M200.1000, L500.4050, L300.4310, L503.6005, L100.0100 #### [facility] [address] [place], [address] MCHC (RBC) [Mass/Vol] 33.9 g/dL Normal 32-36 [facility] Comment on above: Performed By: #### L 300.3900, M200.1000, L500.4050, L300.4310, L503.6005, L100.0100 #### [facility] [address] [place], [address] MCV (RBC) [Entitic vol] 98.2 fL Normal 81-99 [facility] Comment on above: Performed By: #### L 300.3900, M200.1000, L500.4050, L300.4310, L503.6005, L100.0100 #### [facility] [address] [place], [address] Monocytes/100 WBC (Bld) 5.5 % Normal 0-10 [facility] Comment on above: Performed By: #### L 300.3900, M200.1000, L500.4050, L300.4310, L503.6005, L100.0100 #### [facility] [address] [place], [address] Neutrophils/100 WBC (Bld) 78.9 % High 47-70 [facility] Comment on above: Performed By: #### L 300.3900, M200.1000, L500.4050, L300.4310, L503.6005, L100.0100 #### [facility] [address] [place], [address] Nucleated RBC (Bld) [#/Vol] 0 10*3/uL Normal 0-5 [facility] Comment on above: Performed By: #### L 300.3900, M200.1000, L500.4050, L300.4310, L503.6005, L100.0100 #### [facility] [address] [place], [address] Platelet mean volume (Bld) [Entitic vol] 9.8 fL Normal 6.2-12.0 [facility] Comment on above: Performed By: #### L 300.3900, M200.1000, L500.4050, L300.4310, L503.6005, L100.0100 #### [facility] [address] [place], [address] Platelets (Bld) [#/Vol] 212 10*3/uL Normal 150-450 [facility] Comment on above: Performed By: #### L 300.3900, M200.1000, L500.4050, L300.4310, L503.6005, L100.0100 #### [facility] [address] [place], [address] RBC (Bld) [#/Vol] 3.96 10*6/uL Low 4.2-5.4 [facility] Comment on above: Performed By: #### L 300.3900, M200.1000, L500.4050, L300.4310, L503.6005, L100.0100 #### [facility] [address] [place], [address] RDW SD 47.3 fl High 35.1-43.9 [facility] Comment on above: Performed By: #### L 300.3900, M200.1000, L500.4050, L300.4310, L503.6005, L100.0100 #### [facility] [address] [place], [address] WBC (Bld) [#/Vol] 5.5 10*3/uL Normal 4.4-11.0 [facility] Comment on above: Performed By: #### L 300.3900, M200.1000, L500.4050, L300.4310, L503.6005, L100.0100 #### [facility] [address] [place], [address] Carbon dioxide, total [Moles /volume] in Central venous bloodOrdered By: Samuel Hodges on 04-01-2025 CO2 [Moles/Vol] 22.7 mmol/L 21.0-32.0 [facility] Chloride assayOrdered By: Leonard Hodges on 04-01-2025 Chloride [Moles/Vol] 100 mmol/L 98-108 [facility] Comprehensive Metabolic Prof ilon 04-01-2025 Albumin [Mass/Vol] 3.3 g/dL Low 3.5-5.0 [facility] Comment on above: Performed By: #### L 300.3900, M200.1000, L500.4050, L300.4310, L503.6005, L100.0100 #### [facility] [address] [place], [address] Albumin/Globulin [Mass ratio] 1.1 {ratio} Normal 0.9-2.4 [facility] Comment on above: Performed By: #### L 300.3900, M200.1000, L500.4050, L300.4310, L503.6005, L100.0100 #### [facility] [address] [place], [address] ALK PHOS 90 U/L Normal 35-104 [facility] Comment on above: Performed By: #### L 300.3900, M200.1000, L500.4050, L300.4310, L503.6005, L100.0100 #### [facility] [address] [place], [address] ALT [Catalytic activity/Vol] 15 U/L Normal <=34 [facility] Comment on above: Performed By: #### L 300.3900, M200.1000, L500.4050, L300.4310, L503.6005, L100.0100 #### [facility] [address] [place], [address] AST [Catalytic activity/Vol] 23 U/L Normal <=31 [facility] Comment on above: Performed By: #### L 300.3900, M200.1000, L500.4050, L300.4310, L503.6005, L100.0100 #### [facility] [address] [place], [address] Bilirubin [Mass/Vol] 0.73 mg/dL Normal 0.00-1.30 [facility] Comment on above: Performed By: #### L 300.3900, M200.1000, L500.4050, L300.4310, L503.6005, L100.0100 #### [facility] [address] [place], [address] BUN/CRE 13.8 RATIO Normal 10-20 [facility] Comment on above: Performed By: #### L 300.3900, M200.1000, L500.4050, L300.4310, L503.6005, L100.0100 #### [facility] [address] [place], [address] Calcium [Mass/Vol] 8.8 mg/dL Normal 7.6-11.0 [facility] Comment on above: Performed By: #### L 300.3900, M200.1000, L500.4050, L300.4310, L503.6005, L100.0100 #### [facility] [address] [place], [address] Chloride [Moles/Vol] 100 mmol/L Normal 98-108 [facility] Comment on above: Performed By: #### L 300.3900, M200.1000, L500.4050, L300.4310, L503.6005, L100.0100 #### [facility] [address] [place], [address] CO2 [Moles/Vol] 22.7 mmol/L Normal 21.0-32.0 [facility] Comment on above: Performed By: #### L 300.3900, M200.1000, L500.4050, L300.4310, L503.6005, L100.0100 #### [facility] [address] [place], [address] Creatinine [Mass/Vol] 0.62 mg/dL Low 0.70-1.20 [facility] Comment on above: Performed By: #### L 300.3900, M200.1000, L500.4050, L300.4310, L503.6005, L100.0100 #### [facility] [address] [place], [address] ECRCL 123.55 ml/min Normal 50-250 [facility] Comment on above: Performed By: #### L 300.3900, M200.1000, L500.4050, L300.4310, L503.6005, L100.0100 #### [facility] [address] [place], [address] GAP 19 High 5-15 [facility] Comment on above: Performed By: #### L 300.3900, M200.1000, L500.4050, L300.4310, L503.6005, L100.0100 #### [facility] [address] [place], [address] GFR/1.73 sq M.predicted among non-blacks MDRD (S/P/Bld) [Vol rate/Area] 109 mL/min/{1.73_m2} Normal >60 [facility] Comment on above: Result Comment: mL/m in/1.73m2 CKD-EPI Creatinine Equation (2020) Performed By: #### L 300.3900, M200.1000, L500.4050, L300.4310, L503.6005, L100.0100 #### [facility] [address] [place], [address] Globulin (S) [Mass/Vol] 3.1 g/dL Normal 2.2-4.2 [facility] Comment on above: Performed By: #### L 300.3900, M200.1000, L500.4050, L300.4310, L503.6005, L100.0100 #### [facility] [address] [place], [address] Glucose [Mass/Vol] 73 mg/dL Normal 70-99 [facility] Comment on above: Performed By: #### L 300.3900, M200.1000, L500.4050, L300.4310, L503.6005, L100.0100 #### [facility] [address] [place], [address] Potassium [Moles/Vol] 3.1 mmol/L Low 3.3-5.1 [facility] Comment on above: Performed By: #### L 300.3900, M200.1000, L500.4050, L300.4310, L503.6005, L100.0100 #### [facility] [address] [place], [address] Sodium [Moles/Vol] 142 mmol/L Normal 133-145 [facility] Comment on above: Performed By: #### L 300.3900, M200.1000, L500.4050, L300.4310, L503.6005, L100.0100 #### [facility] [address] [place], [address] T PROT 6.4 g/dL Normal 5.9-8.4 [facility] Comment on above: Performed By: #### L 300.3900, M200.1000, L500.4050, L300.4310, L503.6005, L100.0100 #### [facility] [address] [place], [address] Urea nitrogen [Mass/Vol] 9 mg/dL Normal 4-19 [facility] Comment on above: Performed By: #### L 300.3900, M200.1000, L500.4050, L300.4310, L503.6005, L100.0100 #### [facility] [address] [place], [address] Emergency Department Summary on 04-01-2025 Emergency Department Summary [facility] Medical Records Department [address] [place] [address] Emergency Department Summary 04/01/25 MR#: [id number] Acct: [id number] Name: KATARZYNA VARGAS Rep #: [id number] : 1975 50 From: Samuel Hodges DO PCP: Dr. Darrel Veloz DO Status:REG ER Location: ED ADDENDUM by Dr. Samuel Hodges DO on 04/01/25 at 1543 Patient's EKG reviewed showed sinus rhythm with a rate of 78 bpm. 04/01/25 1543 Cosigner Signature (if applicable): cc: Dr. Darrel Veloz DO * Signed HPI History of Present Illness Chief Complaint: Edema Narrative Narrative: Patient is a 50-year-old female with past medical history of polysubstance abuse, bipolar 1 disorder, suprapubic catheter secondary to paraplegia per the patient, alcohol abuse who presented to the emergency department the chief complaint of neck swelling bilaterally. Patient states that she went to bed and when she woke up she had swelling in her neck on both sides and was concerned therefore she came here for further evaluation management. Patient did note that last time she used methamphetamine was on Saturday. She states that she developed paraplegia after developing staph infection in her back after using a dirty needle. Patient states that she feels like she is swallowing normally for self without any difficulty PFSH PFSH Medical History Functional dyspepsia Acute embolism and thrombosis of unspecified deep veins of left lower extremity Cognitive communication deficit Arthropathy Bipolar 1 disorder Muscle weakness (generalized) Hepatitis Smoker Asthma IVDU (intravenous drug user) Polysubstance (including opioids) dependence, daily use Opiate dependence Depression Alcohol abuse Home Medications ???Medication ???Instructions ???Recorded ???Last Taken ???Type albuterol sulfate 90 mcg/actuation 2 puff inhalation Q4H PRN SOB Unknown History aerosol inhaler (Ventolin HFA) amitriptyline 10 mg tablet 10 mg PO QHS 05/17/23 Unknown Hist ory baclofen 20 mg tablet 20 mg PO DAILY 05/17/23 Unknown Hi story fluorometholone 0.1 % eye 1 drp ophthalmic (eye) BID 3 Unknown History drops,suspension gabapentin 800 mg tablet 800 mg PO 4X/DAY 05/17/23 Unknown History ibuprofen 800 mg tablet 800 mg PO Q8H PRN pain 05/17/23 Un known History loratadine 10 mg tablet 10 mg PO DAILY PRN allergy symptom s 05/17/23 Unknown History nystatin 100,000 unit/gram topical 1 applic topical BID 05/17/23 Un known History powder promethazine 25 mg tablet 12.5 mg PO Q4H PRN allergy symptom s 05/17/23 Unknown History atorvastatin 20 mg tablet 20 mg PO DAILY 01/19/24 Unknown Hi story coenzyme Q10 100 mg capsule 100 mg PO DAILY 01/19/24 Unknown H istory multivitamin 1 tab PO DAILY 01/19/24 Unknown Hi story pantoprazole 40 mg tablet,delayed 40 mg PO DAILY 01/19/24 Unknown H istory release acetaminophen 325 mg tablet 650 mg PO Q6H PRN fever or pain Unknown History aluminum hydrox-magnesium carb 95 30 ml PO Q4H PRN dyspepsia Unknown History mg-358 mg/15 mL oral suspension (Acid Gone Antacid) benztropine 0.5 mg tablet 0.5 mg PO QHS 03/19/25 Unknown His tory dextrose 40 % oral gel (Glutose-15) 15 g PO Q15M PRN hypoglycemia 0 03/19/25 Unknown History diazepam 10 mg tablet 10 mg PO DAILY PRN alcohol 5 Unknown History withdrawal diazepam 10 mg tablet 10 mg PO QHS 03/19/25 Unknown Hist ory duloxetine 60 mg capsule,delayed 120 mg PO BID 03/19/25 Unknown His tory release furosemide 20 mg tablet 20 mg PO DAILY 03/19/25 Unknown Hi story glucagon 1 mg solution for 1 mg IM Q20M PRN hypoglycemia 02/22 04/16 Unknown History injection (Glucagon Emergency Kit) guaifenesin 100 mg/5 mL oral 200 mg PO Q4H PRN congestion 03/19 Unknown History liquid (Adult Tussin Chest Congestion) loperamide 2 mg capsule 2 mg PO Q6H PRN loose stool Unknown History (Anti-Diarrheal (loperamide)) melatonin 5 mg tablet 10 mg PO QHS 03/19/25 Unknown Hist ory oxybutynin chloride 15 mg 15 mg PO DAILY 03/19/25 Unknown Hi story tablet,extended release 24 hr polyvinyl alcohol-povidone 0.5 1 - 2 drp EACH EYE Q1H PRN dry Unknown History %-0.6 % eye drops (Clear Eyes eye(s) Natural Tears) sennosides 8.6 mg-docusate sodium 2 tab-cap PO BID 03/19/25 Unknown History 50 mg capsule (Senna Plus) sulfamethoxazole 800 1 tab PO BID #6 TABLETS 03/19/25 U nknown Rx mg-trimethoprim 160 mg tablet cephalexin 500 mg capsule 500 mg PO BID 5 days #10 caps 03/23 Unknown Rx Allergy/AdvReac Type Severity Reaction Status Date / Time hydrocodone bitartrate (From Allergy Itching Verified 04/01/25 11:22 Vicodin) Surgical History ... Normal [facility] Eosinophil percentageOrdered By: Samuel Hodges on 04-01-2025 Eosinophils/100 WBC (Bld) 2.2 % 0-5 [facility] Erythrocyte distribution wid th ratioOrdered By: Samuel Hodges on 04-01-2025 Erythrocyte distribution width (RBC) [Ratio] 13.2 % 11.6-14.6 [facility] Erythrocyte distribution wid th standard deviationOrdered By: Samuel Hodges on 04-01-2025 Erythrocyte distribution width (RBC) [Ratio] 47.3 fl High 35.1-43.9 [facility] Glomerular filtration rate ( GFR) estimation/1.73 sq m using serum, plasma, or whole bOrdered By: Samuel Hodges on 04-01-2025 GFR/1.73 sq M.predicted among non-blacks MDRD (S/P/Bld) [Vol rate/Area] 109 mL/min/{1.73_m2} >60 [facility] Comment on above: mL/min/1.73m2 CKD-EP I Creatinine Equation (2020) Hematocrit Auto (Bld) [Volum e fraction]Ordered By: Samuel Hodges on 04-01-2025 Hematocrit (Bld) [Volume fraction] 38.9 % 37-47 [facility] Hemoglobin measurementOrdere d By: Samuel Hodges on 04-01-2025 Hemoglobin (Bld) [Mass/Vol] 13.2 g/dL 12.0-15.0 [facility] Immature granulocytes/100 WB C Auto (Bld)Ordered By: Samuel Hodges on 04-01-2025 Immature granulocytes/100 WBC (Bld) 0.400 % 0.0-0.9 [facility] Comment on above: IG% - Immature Granu locytes (promyelocytes, myelocytes and metamyelocytes) > 1% indicates that a LEFT SHIFT is Present. International normalized rat io (INR) calculationOrdered By: Samuel Hodges on 04-01-2025 INR Coag (Bld) [Relative time] 1.0 {INR} [facility] Ketones Test strip Ql (U)Ord ered By: Samuel Hodges on 04-01-2025 Ketones Ql (U) 50 mg/dl High Negative [facility] Laboratory - Chemistry and C hemistry - challengeOrdered By: Samuel Hodges on 04-01-2025 AST [Catalytic activity/Vol] 23 U/L <32 [facility] Lactic Acidon 04-01-2025 Lactate [Moles/Vol] 1.3 mmol/L Normal 0.0-2.0 [facility] Comment on above: Order Comment: Y Performed By: #### L 300.3900, M200.1000, L500.4050, L300.4310, L503.6005, L100.0100 #### [facility] Laboratory [address] [place], [address] Lactic acid measurementOrder ed By: Samuel Hodges on 04-01-2025 Lactate [Moles/Vol] 1.3 mmol/L 0.0-2.0 [facility] M100.677on 04-01-2025 M100.677 Negative Normal [facility] Comment on above: Performed By: #### M 100.2200 #### [facility] Laboratory [address] [place], [place], [id number] MCV (mean corpuscular volume ) determinationOrdered By: Samuel Hodges on 04-01-2025 MCV (RBC) [Entitic vol] 98.2 fL 81-99 [facility] Mean corpuscular hemoglobin (MCH) determinationOrdered By: Samuel Hodges on 04-01-2025 MCH (RBC) [Entitic mass] 33.3 pg High 27.0-32.0 [facility] Mean corpuscular hemoglobin concentration (MCHC) determinationOrdered By: Samuel Hodges on 04-01-2025 MCHC (RBC) [Mass/Vol] 33.9 g/dL 32-36 [facility] Mean platelet volume determi nationOrdered By: Samuel Hodges on 04-01-2025 Platelet mean volume (Bld) [Entitic vol] 9.8 fL 6.2-12.0 [facility] Microscopic analysis of urin e for red blood cells (RBC)Ordered By: Samuel Hodges on 04-01-2025 Microscopic analysis of urine for red blood cells (RBC) 0 SEEN /hpf 0- [facility] Monocyte percentageOrdered B y: Samuel Hodges on 04-01-2025 Monocytes/100 WBC (Bld) 5.5 % 0- [facility] Mucus LM Ql (Urine sed)Order ed By: Samuel Hodges on 04-01-2025 Mucus Ql (Urine sed) 0 SEEN /hpf [facility] Neutrophil percentageOrdered By: Samuel Hodges on 04-01-2025 Neutrophils/100 WBC (Bld) 78.9 % High 47-70 [facility] Nitrite Test strip Ql (U)Ord ered By: Samuel Hodges on 04-01-2025 Nitrite Ql (U) Positive High Negative [facility] Nucleated red blood cell per centageOrdered By: Samuel Hodges on 04-01-2025 Nucleated RBC/100 WBC (Bld) [Ratio] 0 % 0- [facility] Partial Thromboplast Timeon 04-01-2025 aPTT Coag (Bld) [Time] 33.1 s Normal 24.1-36.2 [facility] Comment on above: Performed By: #### L 300.3900, M200.1000, L500.4050, L300.4310, L503.6005, L100.0100 #### [facility] [address] [place], [place], [id number] Platelet countOrdered By: Leonard Hodges on 04-01-2025 Platelets (Bld) [#/Vol] 212 10*3/uL 150-450 [facility] Potassium measurement (mass/ volume)Ordered By: Samuel Hodges on 04-01-2025 Potassium (Unsp spec) [Mass/Vol] 3.1 mmol/L Low 3.3-5.1 [facility] Protein Test strip Ql (U)Ord ered By: Samuel Hodges on 04-01-2025 Protein Ql (U) Negative Negative [facility] Prothrombin Time w/INRon INR Coag (PPP) [Relative time] 1.0 {INR} Normal [facility] Comment on above: Performed By: #### L 300.3900, M200.1000, L500.4050, L300.4310, L503.6005, L100.0100 #### [facility] Laboratory [address] [place], [place], [id number] PT Coag (PPP) [Time] 13.6 s Normal 11.7-14.9 [facility] Comment on above: Performed By: #### L 300.3900, M200.1000, L500.4050, L300.4310, L503.6005, L100.0100 #### [facility] [address] [place], [place], [id number] Prothrombin timeOrdered By: Samuel Hodges on 04-01-2025 PT Coag (PPP) [Time] 13.6 s 11.7-14.9 [facility] RBC Auto (Bld) [#/Vol]Ordere d By: Samuel Hodges on 04-01-2025 RBC (Bld) [#/Vol] 3.96 10*6/uL Low 4.2-5.4 [facility] Serum creatinine measurement (mass/volume)Ordered By: Samuel Hodges on 04-01-2025 Creatinine [Mass/Vol] 0.62 mg/dL Low 0.70-1.20 [facility] Serum globulin measurementOr dered By: Samuel Hodges on 04-01-2025 Globulin (S) [Mass/Vol] 3.1 g/dL 2.2-4.2 [facility] Serum glucose measurement (m ass/volume)Ordered By: Samuel Hodges on 04-01-2025 Glucose [Mass/Vol] 73 mg/dL 70-99 [facility] Serum or plasma alanine hensley otransferase (ALT) measurementOrdered By: Samuel Hodges on 04-01-2025 ALT [Catalytic activity/Vol] 15 U/L <35 [facility] Serum or plasma albumin heena urement (mass/volume)Ordered By: Samuel Hodges on 04-01-2025 Albumin [Mass/Vol] 3.3 g/dL Low 3.5-5.0 [facility] Serum or plasma albumin/glob ulin mass ratioOrdered By: Samuel Hodges on 04-01-2025 Albumin/Globulin [Mass ratio] 1.1 {ratio} 0.9-2.4 [facility] Serum or plasma alkaline sandra sphatase measurementOrdered By: Samuel Hodges on 04-01-2025 ALP [Catalytic activity/Vol] 90 U/L 35-104 [facility] Serum or plasma calcium heena urement (mass/volume)Ordered By: Samuel Hodges on 04-01-2025 Calcium [Mass/Vol] 8.8 mg/dL 7.6-11.0 [facility] Serum or plasma urea nitroge n measurement (mass/volume)Ordered By: Samuel Hodges on 04-01-2025 Urea nitrogen [Mass/Vol] 9 mg/dL 4-19 [facility] Sodium levelOrdered By: Justine Hodges on 04-01-2025 Sodium [Moles/Vol] 142 mmol/L 133-145 [facility] Soft Tissue Neck WITH Contra ston 04-01-2025 Soft Tissue Neck WITH Contrast [facility] Imaging Services [facility] [place], [place] [id number] Soft Tissue Neck WITH Contrast MR#: [id number] Acct: [id number] Name: KATARZYNA VARGAS Rep #: [id number] : 1975 F 50 From: David pendleton MD PCP: Dr. Darrel Veloz, Status: REG ER Study: Soft Tissue Neck WITH Contrast Date of Exam: 0 04/01/25 Exam# [id number] Ordering Dr: Samuel Hodges DO PROCEDURE: SOFT TISSUE NECK WITH CONTRAST 04/01/2025 REASON FOR EXAM: BILATERAL NECK SWELLING TECHNIQUE: SOFT TISSUE NECK WITH CONTRAST CONTRAST: Isovue-300 VOLUME: 100 mL One or more dose reduction techniques were used (e.g., Automated exposure control, adjustment of the mA and/or kV according to patient size, use of iterative reconstruction technique). RADIATION DOSE SUMMARY: CTDlvol: 18.78 mGy DLP: 530.25 mGycm COMPARISON: None FINDINGS: Airway: Midline and patent. Salivary glands: Fatty replacement of the parotid glands. Lymph nodes: No cervical lymphadenopathy. Thyroid: Unremarkable Vasculature: Unremarkable Orbits: Unremarkable at visualized levels. Paranasal sinuses and mastoids: Grossly clear at visualized levels. Lung apices: Clear. Upper mediastinum: Visualized mediastinum is unremarkable. Bones: Multilevel degenerative changes of the spine. Status post multilevel fusion with screw and plate fixation causing multiple beam hardening artifacts. Other: CT/Soft Tissue Neck WITH Contrast IMPRESSION: Limited study. No acute abnormality is seen. Reading Location: [place] [address] CC: Dr. Darrel Veloz DO; Dr. Samuel Hodges DO Student Records Specialist: Signed Normal [facility] Squamous epithelial cells de tection in urine sediment by light microscopyOrdered By: Samuel Hodges on 04-01-2025 Epithelial cells.squamous LM Ql (Urine sed) 0-5 SEEN /hpf 01-30 [facility] Streptococcus pyogenes rRNA detection in throat by DNA probeOrdered By: Samuel Hodges on 04-01-2025 S. pyogenes rRNA Probe Ql (Throat) [facility] Total proteinOrdered By: Sandy Hodges on 04-01-2025 Protein [Mass/Vol] 6.4 g/dL 5.9-8.4 [facility] Urinalysis, Completeon 04-01 BACTERIA 1+ /hpf Normal None Seen [facility] Comment on above: Order Comment: COLLE CTOR TO SPECIFY Performed By: #### M 100.0 #### [facility] Laboratory [address] [place], [address] EPI,SQUAMOUS 0-5 SEEN Normal 01-30 [facility] Comment on above: Order Comment: COLLE CTOR TO SPECIFY Performed By: #### M 100.2200 #### [facility] Laboratory [address] [place], [address] WBC 5-10 SEEN Normal 0-5 [facility] Comment on above: Order Comment: KYAW CTOR TO SPECIFY Performed By: #### M 100.2200 #### [facility] Laboratory [address] [place], [address] Mucus Ql (Urine sed) 0 SEEN Normal [facility] Comment on above: Order Comment: KYAW CTOR TO SPECIFY Performed By: #### M 100.2200 #### [facility] [address] [place], [address] RBC 0 SEEN Normal 0-5 [facility] Comment on above: Order Comment: KYAW CTOR TO SPECIFY Performed By: #### M 100.2200 #### [facility] [address] [place], [address] Urine clarityOrdered By: Sandy Hodges on 04-01-2025 Clarity (U) Sl. Cloudy Clear [facility] Urine color determinationOrd ered By: Samuel Hdoges on 04-01-2025 Color (U) Straw Yellow [facility] Urine cultureOrdered By: Sandy Hodges on 04-01-2025 Bacteria identified Cx Nom (U) Mixed Gram Pos & Gram Neg Org Abnormal [facility] Urine glucose detectionOrder ed By: Samuel Hodges on 04-01-2025 Glucose Ql (U) Normal mg/dl Normal [facility] Urine leukocyte esterase det ection by dipstickOrdered By: Samuel Hodges on 04-01-2025 Leukocyte esterase Test strip Ql (U) 500 /ul High Negative [facility] Urine pHOrdered By: Samuel quan on 04-01-2025 pH (U) 6.0 [pH] 5.0 - 8.0 [facility] Urine sediment bacteria coun t by microscopy (number/high power field)Ordered By: Samuel Hodges on 04-01-2025 Bacteria LM.HPF (Urine sed) [#/Area] 1 /[HPF] None Seen [facility] Urine specific gravity measu rementOrdered By: Samuel Hodges on 04-01-2025 Specific gravity (U) [Rel density] 1.010 1.002-1.030 [facility] Urine urobilinogen measureme ntOrdered By: Samuel Hodges on 04-01-2025 Urobilinogen Ql (U) Normal mg/dl Normal [facility] White blood cell (WBC) count Ordered By: Samuel Hodges on 04-01-2025 WBC (Bld) [#/Vol] 5.5 10*3/uL 4.4-11.0 [facility] White blood cell countOrdere d By: Samuel Hodges on 04-01-2025 White blood cell count 5-10 SEEN /hpf 0-5 [facility] CNPNon 03-31-2025 CNPN Telephone (UROLWS) -------- KATARZYNA VARGAS ([id number]) 1975 F U[place] Date Time Provider Department 03/31/25 [facility]WELL During your visit today, we recorded the following information about you: Sarah Hager MA 03/31/2025 3:33 PM Signed Nurse from [facility] phones to request the ability to bead picker a suprapubic catheter for placement prior to patient being transferred to a rehabilitation facility for inpatient treatment tomorrow. Nurse reports asking due to fear that the rehab facility will deny the patient due to the catheter needing to be changed. Return nurse phone call to [phone] YAMILEX Ramos Kimberly, LPN 04/01/2025 8:23 AM Signed Called [facility] and spoke with staff. 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 A nurse from [facility] will be at clinic to bead picker catheter some time today. Order printed for catheter change for bead picker in event order is needed. Bambi Thomas LPN Allergies As of Date: 03/31/2025 Noted Allergy Reaction ULTRAM (TRAMADOL HCL) 09/21/2005 1 - Mental Status Change Comments: SEIZURE VICODIN (HYDROCODONE-ACETAMINOPH E*09/11/2005 11 - Vomiting Date Reviewed: 02/02/2025 Reviewed by: Yessy Mares MA - Fully Assessed Reason for Visit: Patient Question [1477] Prescriptions as of 04/01/2025 - oxybutynin ER (DITROPAN XL) 15 mg 24 hr Extended Rel Tab Take 1 tablet by mouth once daily. - diazePAM (VALIUM) 5 mg tablet Take 5 mg by mouth at bedtime as needed. - Drainage Bag 2,000 mL misc 1 Bag every other week. - Non-Adherent Bandage (EXCILON DRAIN) 4 X 4 spge Apply 1 application to affected area once daily. - gabapentin (NEURONTIN) 800 mg tablet Take 800 mg by mouth daily at bedtime. - acetaminophen (TYLENOL) 650 mg suppository 650 mg by RECTAL route every 4 hours as needed for fever (specify) or pain. - albuterol HFA (PROVENTIL HFA, VENTOLIN HFA) 90 mcg/actuation inhaler Inhale 2 Puffs as instructed every 4 hours as needed for wheezing/shortness of breath. - polyvinyl alcohol/povidone (ARTIFICIAL TEARS OPHTHALMIC) Use in eyes as needed. - cranberry fruit (CRANBERRY) 450 mg tab Take 450 mg by mouth once daily. - docusate sodium (COLACE) 100 mg capsule Take 100 mg by mouth twice daily. - glucagon 1 mg/mL injection Inject 1 mg intramuscularly as needed (for symptomatic hypoglycemia). - dextrose (GLUCOSE GEL ORAL) Take by mouth as needed (for Hypoglycemic episode). - ibuprofen (MOTRIN) 800 mg tablet Take 800 mg by mouth every 8 hours as needed for pain. - furosemide (LASIX) 20 mg tablet Take 20 mg by mouth once daily. For edema - amitriptyline (ELAVIL) 10 mg tablet Take 1 tablet by mouth daily at bedtime. - tiZANidine (ZANAFLEX) 4 mg tablet Take 2 tablets by mouth daily at bedtime. - dantrolene (DANTRIUM) 25 mg capsule Take 1 capsule by mouth twice daily. - clonazePAM (KLONOPIN) 0.5 mg tablet Take 0.5mg Klonopin QHS PRN - baclofen (LIORESAL) 20 mg tablet Take 1 tablet by mouth three times a day and 2 tablets by mouth at bedtime. - gabapentin (NEURONTIN) 400 mg capsule Take 1 capsule by mouth three times a day and 2 capsules by mouth at bedtime. - acetaminophen (TYLENOL) 325 mg tablet Take 1-2 tablets by mouth every 6 hours as needed for pain or fever (specify). - bisacodyl (DULCOLAX, BISACODYL,) 10 mg supp 1 Suppository by RECTAL route once daily as needed for constipation. - calcium citrate-vitamin D3 (CALCIUM CITRATE + D) 315 mg-5 mcg (200 unit) tab Take 1 tablet by mouth twice daily with meals. - DULoxetine (DRIZALMA SPRINKLE) 30 mg capsule, delayed release sprinkle Take 1 capsule (30 mg) by mouth twice daily. - famotidine (PEPCID) 20 mg tablet Take 1 tablet by mouth twice daily. - sodium phosphate-sodium bisphosphate (FLEET ENEMA) enema 133 mL by RECTAL route once daily as needed for constipation. - fluticasone (FLONASE ALLERGY RELIEF) 50 mcg/actuation nasal spray Use 2 Sprays in each nostril once daily. - guaiFENesin (ROBITUSSIN) 100 mg/5 mL syrup Take 10 mL by mouth every 4 hours as needed for cough. - loperamide HCl (IMODIUM A-D) 2 mg tab Take 1 tablet by mouth as needed (diarrhea). - ipratropium-albuterol (DUONEB) 0.5 mg-3 mg(2.5 mg base)/3 mL nebu Inhale 3 mL as instructed every 4 hours as needed for wheezing/shortness of breath. - loratadine (CLARITIN) 10 mg tablet Take 1 tablet by mouth once daily. - Melatonin 5 mg cap Take 2 capsules by mouth daily at bedtime. - methocarbamol (ROBAXIN) 500 mg tablet Take 2 tablets by mouth three times daily. - magnesium hydroxide (MILK OF MAGNESIA) 400 mg/5 mL suspension Take 30 mL by mouth once daily as needed for constipation. - multivitamin tablet Take 1 tablet by mouth once daily. - aluminum-magnesium hydroxide-simethicone (MAALOX,MYLANTA,MAG-AL PLUS) 200-200-20 mg/5 mL susp (more content not included)... Normal [facility] Absolute lymphocyte countOrd ered By: Ijeoma Garzon on 03-28-2025 Lymphocytes Auto (Unsp spec) [#/Vol] 1.04 10*3/uL 0.83-4.51 [facility] Absolute neutrophil countOrd ered By: Ijeoma Garzon on 03-28-2025 Neutrophils (Bld) [#/Vol] 7.7 10*3/uL 2.0-7.7 [facility] Amphetamine detection with 1 000 ng/mL as cutoffOrdered By: Ijeoma Garzon on 03-28-2025 Amphetamines Screen method >1000 ng/mL Ql (U) Positive <1000 ng/mL [facility] Comment on above: If confirmation test ing is needed, a separate order will be required to send out testing to the reference laboratory. Amphetamines Screen method >1000 ng/mL Ql (U) Negative < 200 ng/mL [facility] Anion gap in Serum or Plasma Ordered By: Ijeoma Garzon on 03-28-2025 Anion gap [Moles/Vol] 18 mmol/L High 5-15 [facility] Automated lymphocyte count a s percentage of total leukocytesOrdered By: Ijeoma Garzon on 03-28-2025 Lymphocytes/100 WBC Auto (Unsp spec) 10.6 % Low 19-41 [facility] BUN/creatinine ratioOrdered By: Ijeoma Garzon on 03-28-2025 Urea nitrogen/Creatinine [Mass ratio] 8.1 mg/mg Low 10-20 [facility] Basic Metabolic Profile (BMP )on 03-28-2025 BUN/CRE 8.1 RATIO Low 10-20 [facility] Comment on above: Performed By: #### L 100.0100, L500.2500 ####[facility] [address] [place], [address] Calcium [Mass/Vol] 9.0 mg/dL Normal 7.6-11.0 [facility] Comment on above: Performed By: #### L 100.0100, L500.2500 ####[facility] [address] [place], [address] Chloride [Moles/Vol] 95 mmol/L Low 98-108 [facility] Comment on above: Performed By: #### L 100.0100, L500.2500 ####[facility] [address] [place], [address] CO2 [Moles/Vol] 21.4 mmol/L Normal 21.0-32.0 [facility] Comment on above: Performed By: #### L 100.0100, L500.2500 ####[facility] [address] [place], [address] Creatinine [Mass/Vol] 0.62 mg/dL Low 0.70-1.20 [facility] Comment on above: Performed By: #### L 100.0100, L500.2500 ####[facility] [address] [place], [address] GAP 18 High 5-15 [facility] Comment on above: Performed By: #### L 100.0100, L500.2500 ####[facility] [address] [place], [address] GFR/1.73 sq M.predicted among non-blacks MDRD (S/P/Bld) [Vol rate/Area] 109 mL/min/{1.73_m2} Normal >60 [facility] Comment on above: Result Comment: mL/m in/1.73m2 CKD-EPI Creatinine Equation (2020) Performed By: #### L 100.0100, L500.2500 ####[facility] [address] [place], [address] Glucose [Mass/Vol] 85 mg/dL Normal 70-99 [facility] Comment on above: Performed By: #### L 100.0100, L500.2500 ####[facility] [address] [place], [address] Potassium [Moles/Vol] 3.2 mmol/L Low 3.3-5.1 [facility] Comment on above: Performed By: #### L 100.0100, L500.2500 ####[facility] [address] [place], [address] Sodium [Moles/Vol] 134 mmol/L Normal 133-145 [facility] Comment on above: Performed By: #### L 100.0100, L500.2500 ####[facility] [address] [place], [address] Urea nitrogen [Mass/Vol] 5 mg/dL Normal 4-19 [facility] Comment on above: Performed By: #### L 100.0100, L500.2500 ####[facility] [address] [place], [address] Basophil percentageOrdered B y: Ijeoma Garzon on 03-28-2025 Basophils/100 WBC (Bld) 0.5 % 0-1 [facility] CBC W/Diff, Automatedon 07-0 Absolute Lymph 1.04 X10 3/uL Normal 0.83-4.51 [facility] Comment on above: Performed By: #### L 100.0100, L500.2500 ####[facility] [address] [place], [address] Absolute Neut 7.7 X10 3/uL Normal 2.0-7.7 [facility] Comment on above: Performed By: #### L 100.0100, L500.2500 ####[facility] [address] [place], [address] Basophils/100 WBC (Bld) 0.5 % Normal 0-1 [facility] Comment on above: Performed By: #### L 100.0100, L500.2500 ####[facility] [address] [place], [address] Eosinophils/100 WBC (Bld) 2.4 % Normal 0-5 [facility] Comment on above: Performed By: #### L 100.0100, L500.2500 ####[facility] [address] [place], [address] Erythrocyte distribution width (RBC) [Ratio] 13.0 % Normal 11.6-14.6 [facility] Comment on above: Performed By: #### L 100.0100, L500.2500 ####[facility] [id number] [place], [address] Hematocrit (Bld) [Volume fraction] 33.9 % Low 37-47 [facility] Comment on above: Performed By: #### L 100.0100, L500.2500 ####[facility] [address] [place], [address] Hemoglobin (Bld) [Mass/Vol] 12.0 g/dL Normal 12.0-15.0 [facility] Comment on above: Performed By: #### L 100.0100, L500.2500 ####[facility] [address] [place], [address] IG% 0.200 Normal 0.0-0.9 [facility] Comment on above: Result Comment: IG% - Immature Granulocytes (promyelocytes, myelocytes and metamyelocytes) > 1% indicates that a LEFT SHIFT is Present. Performed By: #### L 100.0100, L500.2500 ####[facility] [address] [place], [address] Lymphocytes/100 WBC (Bld) 10.6 % Low 19-41 [facility] Comment on above: Performed By: #### L 100.0100, L500.2500 ####[facility] [address] [place], [address] MCH (RBC) [Entitic mass] 33.4 pg High 27.0-32.0 [facility] Comment on above: Performed By: #### L 100.0100, L500.2500 ####[facility] [address] [place], [address] MCHC (RBC) [Mass/Vol] 35.4 g/dL Normal 32-36 [facility] Comment on above: Performed By: #### L 100.0100, L500.2500 ####[facility] [address] [place], [address] MCV (RBC) [Entitic vol] 94.4 fL Normal 81-99 [facility] Comment on above: Performed By: #### L 100.0100, L500.2500 ####[facility] [address] [place], [address] Monocytes/100 WBC (Bld) 7.7 % Normal 0-10 [facility] Comment on above: Performed By: #### L 100.0100, L500.2500 ####[facility] [address] [place], [address] Neutrophils/100 WBC (Bld) 78.6 % High 47-70 [facility] Comment on above: Performed By: #### L 100.0100, L500.2500 ####[facility] [address] [place], [address] Nucleated RBC (Bld) [#/Vol] 0 10*3/uL Normal 0-5 [facility] Comment on above: Performed By: #### L 100.0100, L500.2500 ####[facility] [address] [place], [address] Platelet mean volume (Bld) [Entitic vol] 10.4 fL Normal 6.2-12.0 [facility] Comment on above: Performed By: #### L 100.0100, L500.2500 ####[facility] [address] [place], [address] Platelets (Bld) [#/Vol] 199 10*3/uL Normal 150-450 [facility] Comment on above: Performed By: #### L 100.0100, L500.2500 ####[facility] [address] [place], [address] RBC (Bld) [#/Vol] 3.59 10*6/uL Low 4.2-5.4 [facility] Comment on above: Performed By: #### L 100.0100, L500.2500 ####[facility] [address] [place], [address] RDW SD 44.5 fl High 35.1-43.9 [facility] Comment on above: Performed By: #### L 100.0100, L500.2500 ####[facility] [address] [place], [address] WBC (Bld) [#/Vol] 9.8 10*3/uL Normal 4.4-11.0 [facility] Comment on above: Performed By: #### L 100.0100, L500.2500 ####[facility] [address] [place], [address] Carbon dioxide, total [Moles /volume] in Central venous bloodOrdered By: Ijeoma Garzon on 03-28-2025 CO2 [Moles/Vol] 21.4 mmol/L 21.0-32.0 [facility] Chloride assayOrdered By: Julieth Garzon on 03-28-2025 Chloride [Moles/Vol] 95 mmol/L Low 98-108 [facility] Emergency Department Summary on 03-28-2025 Emergency Department Summary [facility] [place] [facility] Medical Records Department [address] [place] [address] Emergency Department Summary 03/28/25 MR#: [id number] Acct: [id number] Name: KATARZYNA VARGAS Rep #: [id number] : 1975 50 From: Ijeoma TENORIO PCP: Dr. Darrel Veloz, DO Status:DEP ER Location: ED HPI History of Present Illness Chief Complaint: Substance Abuse Narrative Narrative: 50-year-old female with past medical history of polysubstance abuse, neurogenic bladder secondary to IV drug use and MRSA spinal infection in 2020 presents after injecting meth. She is crying and it is hard to understand the history. States she is very angry at herself or using drugs. She states her neighbor at the assisted living facility is telling lies about her regarding her drug use. She states she does not want a be here anymore. She is tired of living her assisted living apartment once live somewhere else. She denies being suicidal. She states she has not been eating or drinking for for 5 days since she was using meth and she is worried she is dehydrated or her electrolytes are abnormal. PFSH PFSH Medical History Functional dyspepsia Acute embolism and thrombosis of unspecified deep veins of left lower extremity Cognitive communication deficit Arthropathy Bipolar 1 disorder Muscle weakness (generalized) Hepatitis Smoker Asthma IVDU (intravenous drug user) Polysubstance (including opioids) dependence, daily use Opiate dependence Depression Alcohol abuse Home Medications ???Medication ???Instructions ???Recorded ???Last Taken ???Type albuterol sulfate 90 mcg/actuation 2 puff inhalation Q4H PRN SOB Unknown History aerosol inhaler (Ventolin HFA) amitriptyline 10 mg tablet 10 mg PO QHS 05/17/23 Unknown Hist ory baclofen 20 mg tablet 20 mg PO DAILY 05/17/23 Unknown Hi story fluorometholone 0.1 % eye 1 drp ophthalmic (eye) BID 3 Unknown History drops,suspension gabapentin 800 mg tablet 800 mg PO 4X/DAY 05/17/23 Unknown History ibuprofen 800 mg tablet 800 mg PO Q8H PRN pain 05/17/23 Un known History loratadine 10 mg tablet 10 mg PO DAILY PRN allergy symptom s 05/17/23 Unknown History nystatin 100,000 unit/gram topical 1 applic topical BID 05/17/23 Un known History powder promethazine 25 mg tablet 12.5 mg PO Q4H PRN allergy symptom s 05/17/23 Unknown History atorvastatin 20 mg tablet 20 mg PO DAILY 01/19/24 Unknown Hi story coenzyme Q10 100 mg capsule 100 mg PO DAILY 01/19/24 Unknown H istory multivitamin 1 tab PO DAILY 01/19/24 Unknown Hi story pantoprazole 40 mg tablet,delayed 40 mg PO DAILY 01/19/24 Unknown H istory release acetaminophen 325 mg tablet 650 mg PO Q6H PRN fever or pain Unknown History aluminum hydrox-magnesium carb 95 30 ml PO Q4H PRN dyspepsia Unknown History mg-358 mg/15 mL oral suspension (Acid Gone Antacid) benztropine 0.5 mg tablet 0.5 mg PO QHS 03/19/25 Unknown His tory dextrose 40 % oral gel (Glutose-15) 15 g PO Q15M PRN hypoglycemia 0 03/19/25 Unknown History diazepam 10 mg tablet 10 mg PO DAILY PRN alcohol 5 Unknown History withdrawal diazepam 10 mg tablet 10 mg PO QHS 03/19/25 Unknown Hist ory duloxetine 60 mg capsule,delayed 120 mg PO BID 03/19/25 Unknown His tory release furosemide 20 mg tablet 20 mg PO DAILY 03/19/25 Unknown Hi story glucagon 1 mg solution for 1 mg IM Q20M PRN hypoglycemia 02/22 04/16 Unknown History injection (Glucagon Emergency Kit) guaifenesin 100 mg/5 mL oral 200 mg PO Q4H PRN congestion 03/19 Unknown History liquid (Adult Tussin Chest Congestion) loperamide 2 mg capsule 2 mg PO Q6H PRN loose stool Unknown History (Anti-Diarrheal (loperamide)) melatonin 5 mg tablet 10 mg PO QHS 03/19/25 Unknown Hist ory oxybutynin chloride 15 mg 15 mg PO DAILY 03/19/25 Unknown Hi story tablet,extended release 24 hr polyvinyl alcohol-povidone 0.5 1 - 2 drp EACH EYE Q1H PRN dry Unknown History %-0.6 % eye drops (Clear Eyes eye(s) Natural Tears) sennosides 8.6 mg-docusate sodium 2 tab-cap PO BID 03/19/25 Unknown History 50 mg capsule (Senna Plus) sulfamethoxazole 800 1 tab PO BID #6 TABLETS 03/19/25 U nknown Rx mg-trimethoprim 160 mg tablet Allergy/AdvReac Type Severity Reaction Status Date / Time hydrocodone bitartrate (From Allergy Itching Verified 03/28/25 14:35 Vicodin) Surgical History Chronic suprapubic catheter History of cholecystectomy Social History household members: none Smoking Status: Current every day smoker tobacco type: cigarettes ROS ROS ED ROS Narrative Constitutional: Negative for fever, (more content not included)... Normal [facility] Eosinophil percentageOrdered By: Ijeoma Garzon on 03-28-2025 Eosinophils/100 WBC (Bld) 2.4 % 0-5 [facility] Erythrocyte distribution wid th ratioOrdered By: Ijeoma Garzon on 03-28-2025 Erythrocyte distribution width (RBC) [Ratio] 13.0 % 11.6-14.6 [facility] Erythrocyte distribution wid th standard deviationOrdered By: Ijeoma Garzon on 03-28-2025 Erythrocyte distribution width (RBC) [Ratio] 44.5 fl High 35.1-43.9 [facility] Glomerular filtration rate ( GFR) estimation/1.73 sq m using serum, plasma, or whole bOrdered By: Ijeoma Garzon on 03-28-2025 GFR/1.73 sq M.predicted among non-blacks MDRD (S/P/Bld) [Vol rate/Area] 109 mL/min/{1.73_m2} >60 [facility] Comment on above: mL/min/1.73m2 CKD-EP I Creatinine Equation (2020) Hematocrit Auto (Bld) [Volum e fraction]Ordered By: Ijeoma Garzon on 03-28-2025 Hematocrit (Bld) [Volume fraction] 33.9 % Low 37-47 [facility] Hemoglobin measurementOrdere d By: Ijeoma Garzon on 03-28-2025 Hemoglobin (Bld) [Mass/Vol] 12.0 g/dL 12.0-15.0 [facility] Immature granulocytes/100 WB C Auto (Bld)Ordered By: Ijeoma Garzon on 03-28-2025 Immature granulocytes/100 WBC (Bld) 0.200 % 0.0-0.9 [facility] Comment on above: IG% - Immature Granu locytes (promyelocytes, myelocytes and metamyelocytes) > 1% indicates that a LEFT SHIFT is Present. MCV (mean corpuscular volume ) determinationOrdered By: Ijeoma Garzon on 03-28-2025 MCV (RBC) [Entitic vol] 94.4 fL 81-99 [facility] Mean corpuscular hemoglobin (MCH) determinationOrdered By: Ijeoma Garzon on 03-28-2025 MCH (RBC) [Entitic mass] 33.4 pg High 27.0-32.0 [facility] Mean corpuscular hemoglobin concentration (MCHC) determinationOrdered By: Ijeoma Garzon on 03-28-2025 MCHC (RBC) [Mass/Vol] 35.4 g/dL 32-36 [facility] Mean platelet volume determi nationOrdered By: Ijeoma Garzon on 03-28-2025 Platelet mean volume (Bld) [Entitic vol] 10.4 fL 6.2-12.0 [facility] Monocyte percentageOrdered B y: Ijeoma Garzon on 03-28-2025 Monocytes/100 WBC (Bld) 7.7 % 0-10 [facility] Neutrophil percentageOrdered By: Ijeoma Garzon on 03-28-2025 Neutrophils/100 WBC (Bld) 78.6 % High 47-70 [facility] No Panel InformationOrdered By: Ijeoma Garzon on 03-28-2025 Urine Buprenorphine Qualitative Negative < 200 ng/mL [facility] Urine Oxycodone Screen Negative < 100 ng/mL [facility] Nucleated red blood cell per centageOrdered By: Ijeoma Garzon on 03-28-2025 Nucleated RBC/100 WBC (Bld) [Ratio] 0 % 0-5 [facility] Platelet countOrdered By: Julieth Garzon on 03-28-2025 Platelets (Bld) [#/Vol] 199 10*3/uL 150-450 [facility] Potassium measurement (mass/ volume)Ordered By: Ijeoma Garzon on 03-28-2025 Potassium (Unsp spec) [Mass/Vol] 3.2 mmol/L Low 3.3-5.1 [facility] Quantitative urine opiates m easurementOrdered By: Ijeoma Garzon on 03-28-2025 Opiates Ql (U) Negative < 300 ng/mL [facility] RBC Auto (Bld) [#/Vol]Ordere d By: Ijeoma Garzon on 03-28-2025 RBC (Bld) [#/Vol] 3.59 10*6/uL Low 4.2-5.4 [facility] Screening urine fentanyl annie surementOrdered By: Ijeoma Garzon on 03-28-2025 fentaNYL Screen Ql (U) Negative [facility] Serum creatinine measurement (mass/volume)Ordered By: Ijeoma Garzon on 03-28-2025 Creatinine [Mass/Vol] 0.62 mg/dL Low 0.70-1.20 [facility] Serum glucose measurement (m ass/volume)Ordered By: Ijeoma Garzon on 03-28-2025 Glucose [Mass/Vol] 85 mg/dL 70-99 [facility] Serum or plasma calcium heena urement (mass/volume)Ordered By: Ijeoma Garzon on 03-28-2025 Calcium [Mass/Vol] 9.0 mg/dL 7.6-11.0 [facility] Serum or plasma urea nitroge n measurement (mass/volume)Ordered By: Iejoma Garzon on 03-28-2025 Urea nitrogen [Mass/Vol] 5 mg/dL 4-19 [facility] Sodium levelOrdered By: Ijeoma Garzon on 03-28-2025 Sodium [Moles/Vol] 134 mmol/L 133-145 [facility] Urine Drug Screen (VISTA)on 03-28-2025 AMPHETAMINES Positive Normal <1000 ng/mL [facility] Comment on above: Result Comment: If c onfirmation testing is needed, a separate order will be required to send out testing to the reference laboratory. Performed By: #### L 505.5000 ####[facility] [address] [place], [place], [id number] BARBITIURATES Negative Normal < 200 ng/mL [facility] Comment on above: Performed By: #### L 505.5000 ####[facility] [address] [place], [place], [id number] BENZODIAZIPINE Positive Normal < 200 ng/mL [facility] Comment on above: Result Comment: If c onfirmation testing is needed, a separate order will be required to send out testing to the reference laboratory. Performed By: #### L 505.5000 ####[facility] [address] [place] [address] BUP Ur Drug Scr Negative Normal < 200 ng/mL [facility] Comment on above: Performed By: #### L 505.5000 ####[facility] [address] [place] [address] COCAINE Negative Normal < 300 ng/mL [facility] Comment on above: Performed By: #### L 505.5000 ####[facility] [address] [place] [address] Fentanyl Negative Normal [facility] Comment on above: Performed By: #### L 505.5000 ####[facility] [address] [place] [address] METHADONE Negative Normal < 300 ng/mL [facility] Comment on above: Performed By: #### L 505.5000 ####[facility] [address] [place] [address] OPIATES Negative Normal < 300 ng/mL [facility] Comment on above: Performed By: #### L 505.5000 ####[facility] [address] [place] [address] OXYCODONE Negative Normal < 100 ng/mL [facility] Comment on above: Performed By: #### L 505.5000 ####[facility] [address] [place] [address] PCP Negative Normal < 25 ng/mL [facility] Comment on above: Performed By: #### L 505.5000 ####[facility] [address] [place] [address] THC Positive Normal < 50 ng/mL [facility] Comment on above: Result Comment: If c onfirmation testing is needed, a separate order will be required to send out testing to the reference laboratory. Performed By: #### L 505.5000 ####[facility] [address] [place], [address] Urine benzodiazepine levelOr dered By: Ijeoma Garzon on 03-28-2025 Benzodiazepines Ql (U) Positive < 200 ng/mL [facility] Comment on above: If confirmation test ing is needed, a separate order will be required to send out testing to the reference laboratory. Urine cocaine levelOrdered B y: Ijeoma Garzon on 03-28-2025 Cocaine Ql (U) Negative < 300 ng/mL [facility] Urine qhzrv-7-wecslysecnottl abinol (THC) measurementOrdered By: Ijeoma Garzon on 03-28-2025 Cannabinoids Screen Ql (U) Positive < 50 ng/mL [facility] Comment on above: If confirmation test ing is needed, a separate order will be required to send out testing to the reference laboratory. Urine phencyclidine (PCP) de tectionOrdered By: Ijeoma Garzon on 03-28-2025 Phencyclidine Ql (U) Negative < 25 ng/mL [facility] White blood cell (WBC) count Ordered By: Ijeoma Garzon on 03-28-2025 WBC (Bld) [#/Vol] 9.8 10*3/uL 4.4-11.0 [facility] Urine Cultureon 03-24-2025 URC #6 Gram positive nabila suggestive of a diphtheroid. Schmitt cath urine is not recommended. Growth may represent distal urethral carmela. Urine Culture Citrobacter braakii [place] Count >100,000 Providencia rettgeri Providencia rettgeri MORMOM [place] Count >100,000 Morganella morganii sp morgani [place] Count >100,000 Enterococcus faecalis Pseudomonas aeruginosa GPR [place] Count 1000-10,000 Enterococcus faecalis Cefepime Islt CHLOE <=0.12 cefTRIAXone Islt CHLOE <=0.25 S Gram positive nabila Gentamicin Islt CHLOE <=1 levoFLOXacin Islt CHLOE <=0.12 S Meropenem Islt CHLOE <=0.25 Nitrofurantoin Islt CHLOE <=16 S Pip+Tazo Islt CHLOE <=4 S TMP SMX Islt CHLOE <=20 S Providencia rettgeri: REACTION Ampicillin Islt CHLOE R Ampicillin+Sulbac Islt CHLOE 16 I Cefepime Islt CHLOE <=0.12 S cefTRIAXone Islt CHLOE <=0.25 S Ciprofloxacin Islt CHLOE <=0.06 S Gentamicin Islt CHLOE <=1 levoFLOXacin Islt CHLOE <=0.12 S Meropenem Islt CHLOE <=0.25 S Nitrofurantoin Islt CHLOE 256 R Pip+Tazo Islt CHLOE <=4 S TMP SMX Islt CHLOE <=20 S Morganella morganii sp morgani: REACTION Ampicillin Islt CHLOE R Ampicillin+Sulbac Islt CHLOE 4 S Ciprofloxacin Islt CHLOE <=0.06 S Gentamicin Islt CHLOE <=1 S levoFLOXacin Islt CHLOE <=0.12 S Meropenem Islt CHLOE 0.5 Nitrofurantoin Islt CHLOE 128 R Pip+Tazo Islt CHLOE <=4 S TMP SMX Islt CHLOE <=20 S Pseudomonas aeruginosa: REACTION Cefepime Islt CHLOE 0.25 S Ciprofloxacin Islt CHLOE <=0.06 S levoFLOXacin Islt CHLOE <=0.12 S Meropenem Islt CHLOE <=0.25 S Pip+Tazo Islt CHLOE <=4 S Enterococcus faecalis: REACTION Ampicillin Islt CHLOE <=2 S Ciprofloxacin Islt CHLOE >=8 R Gentamicin Synergy Susc Islt SYN-R R levoFLOXacin Islt CHLOE >=8 R Linezolid Islt CHLOE 2 S Nitrofurantoin Islt CHLOE <=16 Streptomycin High Pot Susc Islt SYN-S S Tetracycline Islt CHLOE >=16 R Vancomycin Islt CHLOE 1 S Normal [facility] Comment on above: Performed By: #### M 100.7593 #### [facility] Laboratory [address] [place], [place], [id number] Absolute lymphocyte countOrd ered By: Nick Angelo on 03-19-2025 Lymphocytes Auto (Unsp spec) [#/Vol] 1.24 10*3/uL 0.83-4.51 [facility] Absolute neutrophil countOrd ered By: Nick Angelo on 03-19-2025 Neutrophils (Bld) [#/Vol] 2.4 10*3/uL 2.0-7.7 [facility] Alcohol, Blood (Medical)-Ser umon 03-19-2025 SERUM ETOH < 10.1 Normal <=10.0 [facility] Comment on above: Result Comment: This test is for medical purposes only. The legal definition of intoxication varies according to local law. Performed By: #### M 100.2200 #### [facility] Laboratory [place], [address] Amorphous sediment detection in urine sediment by light microscopyOrdered By: Nick Angelo on 03-19-2025 Amorphous sediment LM Ql (Urine sed) 2+ [facility] Amphetamine detection with 1 000 ng/mL as cutoffOrdered By: Nick Angelo on 03-19-2025 Amphetamines Screen method >1000 ng/mL Ql (U) Positive <1000 ng/mL [facility] Comment on above: If confirmation test ing is needed, a separate order will be required to send out testing to the reference laboratory. Amphetamines Screen method >1000 ng/mL Ql (U) Negative < 200 ng/mL [facility] Anion gap in Serum or Plasma Ordered By: Nick Angelo on 03-19-2025 Anion gap [Moles/Vol] 15 mmol/L 5-15 [facility] Automated lymphocyte count a s percentage of total leukocytesOrdered By: Nick Angelo on 03-19-2025 Lymphocytes/100 WBC Auto (Unsp spec) 29.3 % 19-41 [facility] BUN/creatinine ratioOrdered By: Nick Angelo on 03-19-2025 Urea nitrogen/Creatinine [Mass ratio] 10.7 mg/mg 10-20 [facility] Basophil percentageOrdered B y: Nick Angelo on 03-19-2025 Basophils/100 WBC (Bld) 1.7 % High 0-1 [facility] Bilirubin Test strip Ql (U)O rdered By: Nick Angelo on 03-19-2025 Bilirubin Ql (U) Negative Negative [facility] Bilirubin, totalOrdered By: Nick Angelo on 03-19-2025 Bilirubin [Mass/Vol] 0.62 mg/dL 0.00-1.30 [facility] CBC W/Diff, Automatedon 02-22 Absolute Lymph 1.24 X10 3/uL Normal 0.83-4.51 [facility] Comment on above: Performed By: #### L 100.0100, L501.9100, L505.5000, L700.6800, L500.4050 ####[facility] [address] [place], [address] Absolute Neut 2.4 X10 3/uL Normal 2.0-7.7 [facility] Comment on above: Performed By: #### L 100.0100, L501.9100, L505.5000, L700.6800, L500.4050 ####[facility] [address] [place], [address] Basophils/100 WBC (Bld) 1.7 % High 0-1 [facility] Comment on above: Performed By: #### L 100.0100, L501.9100, L505.5000, L700.6800, L500.4050 ####[facility] [address] [place], [address] Eosinophils/100 WBC (Bld) 4.0 % Normal 0-5 [facility] Comment on above: Performed By: #### L 100.0100, L501.9100, L505.5000, L700.6800, L500.4050 ####[facility] [address] [place], [address] Erythrocyte distribution width (RBC) [Ratio] 12.7 % Normal 11.6-14.6 [facility] Comment on above: Performed By: #### L 100.0100, L501.9100, L505.5000, L700.6800, L500.4050 ####[facility] [address] [place], [address] Hematocrit (Bld) [Volume fraction] 38.2 % Normal 37-47 [facility] Comment on above: Performed By: #### L 100.0100, L501.9100, L505.5000, L700.6800, L500.4050 ####[facility] [address] [place], [address] Hemoglobin (Bld) [Mass/Vol] 13.6 g/dL Normal 12.0-15.0 [facility] Comment on above: Performed By: #### L 100.0100, L501.9100, L505.5000, L700.6800, L500.4050 ####[facility] [address] [place], [address] IG% 0.000 Normal 0.0-0.9 [facility] Comment on above: Result Comment: IG% - Immature Granulocytes (promyelocytes, myelocytes and metamyelocytes) > 1% indicates that a LEFT SHIFT is Present. Performed By: #### L 100.0100, L501.9100, L505.5000, L700.6800, L500.4050 ####[facility] [address] [place], [address] Lymphocytes/100 WBC (Bld) 29.3 % Normal 19-41 [facility] Comment on above: Performed By: #### L 100.0100, L501.9100, L505.5000, L700.6800, L500.4050 ####[facility] [address] [place], [address] MCH (RBC) [Entitic mass] 34.0 pg High 27.0-32.0 [facility] Comment on above: Performed By: #### L 100.0100, L501.9100, L505.5000, L700.6800, L500.4050 ####[facility] [address] [place], [address] MCHC (RBC) [Mass/Vol] 35.6 g/dL Normal 32-36 [facility] Comment on above: Performed By: #### L 100.0100, L501.9100, L505.5000, L700.6800, L500.4050 ####[facility] [address] [place], [address] MCV (RBC) [Entitic vol] 95.5 fL Normal 81-99 [facility] Comment on above: Performed By: #### L 100.0100, L501.9100, L505.5000, L700.6800, L500.4050 ####[facility] [address] [place], [address] Monocytes/100 WBC (Bld) 8.3 % Normal 0-10 [facility] Comment on above: Performed By: #### L 100.0100, L501.9100, L505.5000, L700.6800, L500.4050 ####[facility] [address] [place], [address] Neutrophils/100 WBC (Bld) 56.7 % Normal 47-70 [facility] Comment on above: Performed By: #### L 100.0100, L501.9100, L505.5000, L700.6800, L500.4050 ####[facility] [address] [place], [address] Nucleated RBC (Bld) [#/Vol] 0 10*3/uL Normal 0-5 [facility] Comment on above: Performed By: #### L 100.0100, L501.9100, L505.5000, L700.6800, L500.4050 ####[facility] [address] [place], [address] Platelet mean volume (Bld) [Entitic vol] 10.2 fL Normal 6.2-12.0 [facility] Comment on above: Performed By: #### L 100.0100, L501.9100, L505.5000, L700.6800, L500.4050 ####[facility] [address] [place], [address] Platelets (Bld) [#/Vol] 257 10*3/uL Normal 150-450 [facility] Comment on above: Performed By: #### L 100.0100, L501.9100, L505.5000, L700.6800, L500.4050 ####[facility] [address] [place], [address] RBC (Bld) [#/Vol] 4.00 10*6/uL Low 4.2-5.4 [facility] Comment on above: Performed By: #### L 100.0100, L501.9100, L505.5000, L700.6800, L500.4050 ####[facility] [address] [place], [address] RDW SD 43.7 fl Normal 35.1-43.9 [facility] Comment on above: Performed By: #### L 100.0100, L501.9100, L505.5000, L700.6800, L500.4050 ####[facility] [address] [place], [address] WBC (Bld) [#/Vol] 4.2 10*3/uL Low 4.4-11.0 [facility] Comment on above: Performed By: #### L 100.0100, L501.9100, L505.5000, L700.6800, L500.4050 ####[facility] [address] [place], [address] Calcium oxalate crystals det ection in urine sediment by light microscopyOrdered By: Nick Angelo on 03-19-2025 Calcium oxalate crystals LM Ql (Urine sed) 2+ /hpf [facility] Carbon dioxide, total [Moles /volume] in Central venous bloodOrdered By: Nick Angelo on 03-19-2025 CO2 [Moles/Vol] 26.6 mmol/L 21.0-32.0 [facility] Chloride assayOrdered By: Antonio Angelo on 03-19-2025 Chloride [Moles/Vol] 97 mmol/L Low 98-108 [facility] Comprehensive Metabolic Prof ilon 03-19-2025 Albumin [Mass/Vol] 3.4 g/dL Low 3.5-5.0 [facility] Comment on above: Performed By: #### L 100.0100, L501.9100, L505.5000, L700.6800, L500.4050 ####[facility] [address] [place], [address] Albumin/Globulin [Mass ratio] 1.1 {ratio} Normal 0.9-2.4 [facility] Comment on above: Performed By: #### L 100.0100, L501.9100, L505.5000, L700.6800, L500.4050 ####[facility] [address] [place], [address] ALK PHOS 89 U/L Normal 35-104 [facility] Comment on above: Performed By: #### L 100.0100, L501.9100, L505.5000, L700.6800, L500.4050 ####[facility] [address] [place], [address] ALT [Catalytic activity/Vol] 20 U/L Normal <=34 [facility] Comment on above: Performed By: #### L 100.0100, L501.9100, L505.5000, L700.6800, L500.4050 ####[facility] [address] [place], [address] AST [Catalytic activity/Vol] 28 U/L Normal <=31 [facility] Comment on above: Performed By: #### L 100.0100, L501.9100, L505.5000, L700.6800, L500.4050 ####[facility] [address] [place], [address] Bilirubin [Mass/Vol] 0.62 mg/dL Normal 0.00-1.30 [facility] Comment on above: Performed By: #### L 100.0100, L501.9100, L505.5000, L700.6800, L500.4050 ####[facility] [address] [place], [address] BUN/CRE 10.7 RATIO Normal 10-20 [facility] Comment on above: Performed By: #### L 100.0100, L501.9100, L505.5000, L700.6800, L500.4050 ####[facility] [address] [place], [address] Calcium [Mass/Vol] 8.8 mg/dL Normal 7.6-11.0 [facility] Comment on above: Performed By: #### L 100.0100, L501.9100, L505.5000, L700.6800, L500.4050 ####[facility] [address] [place], [address] Chloride [Moles/Vol] 97 mmol/L Low 98-108 [facility] Comment on above: Performed By: #### L 100.0100, L501.9100, L505.5000, L700.6800, L500.4050 ####[facility] [address] [place], [address] CO2 [Moles/Vol] 26.6 mmol/L Normal 21.0-32.0 [facility] Comment on above: Performed By: #### L 100.0100, L501.9100, L505.5000, L700.6800, L500.4050 ####[facility] [address] [place], [address] Creatinine [Mass/Vol] 0.62 mg/dL Low 0.70-1.20 [facility] Comment on above: Performed By: #### L 100.0100, L501.9100, L505.5000, L700.6800, L500.4050 ####[facility] [address] [place], [address] ECRCL 122.96 ml/min Normal 50-250 [facility] Comment on above: Performed By: #### L 100.0100, L501.9100, L505.5000, L700.6800, L500.4050 ####[facility] [address] [place], [address] GAP 15 Normal 5-15 [facility] Comment on above: Performed By: #### L 100.0100, L501.9100, L505.5000, L700.6800, L500.4050 ####[facility] [address] [place], [address] GFR/1.73 sq M.predicted among non-blacks MDRD (S/P/Bld) [Vol rate/Area] 109 mL/min/{1.73_m2} Normal >60 [facility] Comment on above: Result Comment: mL/m in/1.73m2 CKD-EPI Creatinine Equation (2020) Performed By: #### L 100.0100, L501.9100, L505.5000, L700.6800, L500.4050 ####[facility] [address] [place], [address] Globulin (S) [Mass/Vol] 3.0 g/dL Normal 2.2-4.2 [facility] Comment on above: Performed By: #### L 100.0100, L501.9100, L505.5000, L700.6800, L500.4050 ####[facility] [address] [place], [address] Glucose [Mass/Vol] 90 mg/dL Normal 70-99 [facility] Comment on above: Performed By: #### L 100.0100, L501.9100, L505.5000, L700.6800, L500.4050 ####[facility] [address] [place], [address] Potassium [Moles/Vol] 3.3 mmol/L Normal 3.3-5.1 [facility] Comment on above: Performed By: #### L 100.0100, L501.9100, L505.5000, L700.6800, L500.4050 ####[facility] [address] [place], [address] Sodium [Moles/Vol] 139 mmol/L Normal 133-145 [facility] Comment on above: Performed By: #### L 100.0100, L501.9100, L505.5000, L700.6800, L500.4050 ####[facility] [address] [place], [address] T PROT 6.4 g/dL Normal 5.9-8.4 [facility] Comment on above: Performed By: #### L 100.0100, L501.9100, L505.5000, L700.6800, L500.4050 ####[facility] [address] [place], [address] Urea nitrogen [Mass/Vol] 7 mg/dL Normal 4-19 [facility] Comment on above: Performed By: #### L 100.0100, L501.9100, L505.5000, L700.6800, L500.4050 ####[facility] [address] [place], [address] Emergency Department Summary on 03-19-2025 Emergency Department Summary [facility] Medical Records Department [address] [place] [address] Emergency Department Summary 03/19/25 MR#: [id number] Acct: [id number] Name: KATARZYNA VARGAS Rep #: [id number] : 1975 50 From: Nick Angelo DO PCP: Dr. Darrel Veloz, DO Status:REG ER Location: ED [facility] History of Present Illness Chief Complaint: Substance Abuse Informant: patient Onset/Context/Timing Onset: Days (3) Context: Gradual Onset Timing: Continuous Worsened by: Nothing Relieved by: Nothing Associated Symptoms Associated Symptoms: Negative for vomiting*, diarrhea*, fever*, rash*, seizure, tremor, palpatations, suicidal ideation or homicidal ideation Narrative Narrative: Patient presents with relapse from opioid use. Patient states she used 1 g of opiates 3 days ago. Patient is unsure if it was meth or opiates. Patient states she has not used any since then. Patient denies any nausea or vomiting. Patient denies any seizures or tremors. Patient denies any suicidal or homicidal ideations. Patient admits to some pain in her back. Patient is also concerned that she may be dehydrated or her electrolytes may be abnormal. PFSH PFSH Medical History Functional dyspepsia Acute embolism and thrombosis of unspecified deep veins of left lower extremity Cognitive communication deficit Arthropathy Bipolar 1 disorder Muscle weakness (generalized) Hepatitis Smoker Asthma IVDU (intravenous drug user) Polysubstance (including opioids) dependence, daily use Opiate dependence Depression Alcohol abuse Home Medications ???Medication ???Instructions ???Recorded ???Last Taken ???Type albuterol sulfate 90 mcg/actuation 2 puff inhalation Q4H PRN SOB Unknown History aerosol inhaler (Ventolin HFA) amitriptyline 10 mg tablet 10 mg PO QHS 05/17/23 Unknown Hist ory baclofen 20 mg tablet 20 mg PO DAILY 05/17/23 Unknown Hi story fluorometholone 0.1 % eye 1 drp ophthalmic (eye) BID 3 Unknown History drops,suspension gabapentin 800 mg tablet 800 mg PO 4X/DAY 05/17/23 Unknown History ibuprofen 800 mg tablet 800 mg PO Q8H PRN pain 05/17/23 Un known History loratadine 10 mg tablet 10 mg PO DAILY PRN allergy symptom s 05/17/23 Unknown History nystatin 100,000 unit/gram topical 1 applic topical BID 05/17/23 Un known History powder promethazine 25 mg tablet 12.5 mg PO Q4H PRN allergy symptom s 05/17/23 Unknown History atorvastatin 20 mg tablet 20 mg PO DAILY 01/19/24 Unknown Hi story coenzyme Q10 100 mg capsule 100 mg PO DAILY 01/19/24 Unknown H istory multivitamin 1 tab PO DAILY 01/19/24 Unknown Hi story pantoprazole 40 mg tablet,delayed 40 mg PO DAILY 01/19/24 Unknown H istory release acetaminophen 325 mg tablet 650 mg PO Q6H PRN fever or pain Unknown History aluminum hydrox-magnesium carb 95 30 ml PO Q4H PRN dyspepsia Unknown History mg-358 mg/15 mL oral suspension (Acid Gone Antacid) benztropine 0.5 mg tablet 0.5 mg PO QHS 03/19/25 Unknown His tory dextrose 40 % oral gel (Glutose-15) 15 g PO Q15M PRN hypoglycemia 0 03/19/25 Unknown History diazepam 10 mg tablet 10 mg PO DAILY PRN alcohol 5 Unknown History withdrawal diazepam 10 mg tablet 10 mg PO QHS 03/19/25 Unknown Hist ory duloxetine 60 mg capsule,delayed 120 mg PO BID 03/19/25 Unknown His tory release furosemide 20 mg tablet 20 mg PO DAILY 03/19/25 Unknown Hi story glucagon 1 mg solution for 1 mg IM Q20M PRN hypoglycemia 02/22 04/16 Unknown History injection (Glucagon Emergency Kit) guaifenesin 100 mg/5 mL oral 200 mg PO Q4H PRN congestion 03/19 Unknown History liquid (Adult Tussin Chest Congestion) loperamide 2 mg capsule 2 mg PO Q6H PRN loose stool Unknown History (Anti-Diarrheal (loperamide)) melatonin 5 mg tablet 10 mg PO QHS 03/19/25 Unknown Hist ory oxybutynin chloride 15 mg 15 mg PO DAILY 03/19/25 Unknown Hi story tablet,extended release 24 hr polyvinyl alcohol-povidone 0.5 1 - 2 drp EACH EYE Q1H PRN dry Unknown History %-0.6 % eye drops (Clear Eyes eye(s) Natural Tears) sennosides 8.6 mg-docusate sodium 2 tab-cap PO BID 03/19/25 Unknown History 50 mg capsule (Senna Plus) sulfamethoxazole 800 1 tab PO BID #6 TABLETS 03/19/25 U nknown Rx mg-trimethoprim 160 mg tablet Allergy/AdvReac Type Severity Reaction Status Date / Time hydrocodone bitartrate (From Allergy Itching Verified 03/19/25 13:42 Vicodin) Surgical History Chronic suprapubic catheter History of cholecystectomy Social History household members: none Smoking Status: Current every day smoker tobacco type: cigarettes ROS RO (more content not included)... Normal [facility] Eosinophil percentageOrdered By: Nick Angelo on 03-19-2025 Eosinophils/100 WBC (Bld) 4.0 % 0-5 [facility] Erythrocyte distribution wid th ratioOrdered By: Nick Angelo on 03-19-2025 Erythrocyte distribution width (RBC) [Ratio] 12.7 % 11.6-14.6 [facility] Erythrocyte distribution wid th standard deviationOrdered By: Nick Angelo on 03-19-2025 Erythrocyte distribution width (RBC) [Ratio] 43.7 fl 35.1-43.9 [facility] Glomerular filtration rate ( GFR) estimation/1.73 sq m using serum, plasma, or whole bOrdered By: Nick Angelo on 03-19-2025 GFR/1.73 sq M.predicted among non-blacks MDRD (S/P/Bld) [Vol rate/Area] 109 mL/min/{1.73_m2} >60 [facility] Comment on above: mL/min/1.73m2 CKD-EP I Creatinine Equation (2020) Hematocrit Auto (Bld) [Volum e fraction]Ordered By: Nick Angelo on 03-19-2025 Hematocrit (Bld) [Volume fraction] 38.2 % 37-47 [facility] Hemoglobin measurementOrdere d By: Nick Angelo on 03-19-2025 Hemoglobin (Bld) [Mass/Vol] 13.6 g/dL 12.0-15.0 [facility] Immature granulocytes/100 WB C Auto (Bld)Ordered By: Nick Angelo on 03-19-2025 Immature granulocytes/100 WBC (Bld) 0.000 % 0.0-0.9 [facility] Comment on above: IG% - Immature Granu locytes (promyelocytes, myelocytes and metamyelocytes) > 1% indicates that a LEFT SHIFT is Present. Ketones Test strip Ql (U)Ord ered By: Nick Angelo on 03-19-2025 Ketones Ql (U) Negative Negative [facility] Laboratory - Chemistry and C hemistry - challengeOrdered By: Nick Angelo on 03-19-2025 AST [Catalytic activity/Vol] 28 U/L <32 [facility] MCV (mean corpuscular volume ) determinationOrdered By: Nick Angelo on 03-19-2025 MCV (RBC) [Entitic vol] 95.5 fL 81-99 [facility] Mean corpuscular hemoglobin (MCH) determinationOrdered By: Nick Angelo on 03-19-2025 MCH (RBC) [Entitic mass] 34.0 pg High 27.0-32.0 [facility] Mean corpuscular hemoglobin concentration (MCHC) determinationOrdered By: Nick Angelo on 03-19-2025 MCHC (RBC) [Mass/Vol] 35.6 g/dL 32-36 [facility] Mean platelet volume determi nationOrdered By: Nick Angelo on 03-19-2025 Platelet mean volume (Bld) [Entitic vol] 10.2 fL 6.2-12.0 [facility] Microscopic analysis of urin e for red blood cells (RBC)Ordered By: Nick Angelo on 03-19-2025 Microscopic analysis of urine for red blood cells (RBC) 0-5 SEEN /hpf 0-5 [facility] Monocyte percentageOrdered B y: Nick Angelo on 03-19-2025 Monocytes/100 WBC (Bld) 8.3 % 0-10 [facility] Mucus LM Ql (Urine sed)Order ed By: Nick Angelo on 03-19-2025 Mucus Ql (Urine sed) 0 SEEN /hpf [facility] Neutrophil percentageOrdered By: Nick Angelo on 03-19-2025 Neutrophils/100 WBC (Bld) 56.7 % 47-70 [facility] Nitrite Test strip Ql (U)Ord ered By: Nick Angelo on 06-27-2025 Nitrite Ql (U) Positive High Negative [facility] No Panel InformationOrdered By: Nick Angelo on 03-19-2025 Urine Buprenorphine Qualitative Negative < 200 ng/mL [facility] Urine Oxycodone Screen Negative < 100 ng/mL [facility] Nucleated red blood cell per centageOrdered By: Nick Angelo on 03-19-2025 Nucleated RBC/100 WBC (Bld) [Ratio] 0 % 0-5 [facility] Platelet countOrdered By: Antonio Angelo on 03-19-2025 Platelets (Bld) [#/Vol] 257 10*3/uL 150-450 [facility] Potassium measurement (mass/ volume)Ordered By: Nick Angelo on 03-19-2025 Potassium (Unsp spec) [Mass/Vol] 3.3 mmol/L 3.3-5.1 [facility] ,Serum,hCG Quali.on 03-19-2025 HCG, SERUM QUAL Negative Normal [facility] Comment on above: Performed By: #### L 100.0100, L501.9100, L505.5000, L700.6800, L500.4050 ####[facility] [address] [place], [address] Protein Test strip Ql (U)Ord ered By: Nick Angelo on 03-19-2025 Protein Ql (U) 30 mg/dl High Negative [facility] Quantitative urine opiates m easurementOrdered By: Nick Angelo on 03-19-2025 Opiates Ql (U) Negative < 300 ng/mL [facility] RBC Auto (Bld) [#/Vol]Ordere d By: Nick Angelo on 03-19-2025 RBC (Bld) [#/Vol] 4.00 10*6/uL Low 4.2-5.4 [facility] Screening urine fentanyl annie surementOrdered By: Nick Angelo on 03-19-2025 fentaNYL Screen Ql (U) Negative [facility] Serum beta-hCG test, qualita tiveOrdered By: Nick Angelo on 03-19-2025 Beta HCG ( test) Ql Negative [facility] Serum creatinine measurement (mass/volume)Ordered By: Nick Angelo on 03-19-2025 Creatinine [Mass/Vol] 0.62 mg/dL Low 0.70-1.20 [facility] Serum globulin measurementOr dered By: Nick Angelo on 03-19-2025 Globulin (S) [Mass/Vol] 3.0 g/dL 2.2-4.2 [facility] Serum glucose measurement (m ass/volume)Ordered By: Nick Angelo on 03-19-2025 Glucose [Mass/Vol] 90 mg/dL 70-99 [facility] Serum or plasma alanine hensley otransferase (ALT) measurementOrdered By: Nick Angelo on 03-19-2025 ALT [Catalytic activity/Vol] 20 U/L <35 [facility] Serum or plasma albumin heena urement (mass/volume)Ordered By: Nick Angelo on 03-19-2025 Albumin [Mass/Vol] 3.4 g/dL Low 3.5-5.0 [facility] Serum or plasma albumin/glob ulin mass ratioOrdered By: Nick Angelo on 03-19-2025 Albumin/Globulin [Mass ratio] 1.1 {ratio} 0.9-2.4 [facility] Serum or plasma alkaline sandra sphatase measurementOrdered By: Nick Angelo 03-19-2025 ALP [Catalytic activity/Vol] 89 U/L 35-104 [facility] Serum or plasma calcium heena urement (mass/volume)Ordered By: Nick Angelo on 03-19-2025 Calcium [Mass/Vol] 8.8 mg/dL 7.6-11.0 [facility] Serum or plasma ethanol heena urement (mass/volume)Ordered By: Nick Angelo on 03-19-2025 Ethanol [Mass/Vol] mg/dL <10.1 [facility] Comment on above: This test is for med ical purposes only. The legal definition of intoxication varies according to local law. Serum or plasma urea nitroge n measurement (mass/volume)Ordered By: Nick Angelo on 03-19-2025 Urea nitrogen [Mass/Vol] 7 mg/dL 4-19 [facility] Sodium levelOrdered By: Nick Angelo on 03-19-2025 Sodium [Moles/Vol] 139 mmol/L 133-145 [facility] Squamous epithelial cells de tection in urine sediment by light microscopyOrdered By: Nick Angelo on 03-19-2025 Epithelial cells.squamous LM Ql (Urine sed) 0-5 SEEN /hpf 5-10 [facility] Total proteinOrdered By: Anamika Angelo on 03-19-2025 Protein [Mass/Vol] 6.4 g/dL 5.9-8.4 [facility] Urinalysis, Completeon 03-19 AMORPHOUS 2+ Normal [facility] Comment on above: Order Comment: CLEAN CATCH Performed By: #### L 400.0001 ####[facility] [address] [place], [address] EPI,SQUAMOUS 0-5 SEEN Normal 5- [facility] Comment on above: Order Comment: CLEAN CATCH Performed By: #### L 400.0001 ####[facility] [address] [facility] [address] RBC 0-5 SEEN Normal 0-5 [facility] Comment on above: Order Comment: CLEAN CATCH Performed By: #### L 400.0001 ####[facility] [address] [place], [address] BACTERIA 3+ /hpf Normal None Seen [facility] Comment on above: Order Comment: CLEAN CATCH Performed By: #### L 400.0001 ####[facility] [address] [place], [address] CA OX CRYSTAL 2+ /hpf Normal [facility] Comment on above: Order Comment: CLEAN CATCH Performed By: #### L 400.0001 ####[facility] [address] [place], [address] WBC 10-25 SEEN Normal 0-5 [facility] Comment on above: Order Comment: CLEAN CATCH Performed By: #### L 400.0001 ####[facility] [address] [place], [address] Mucus Ql (Urine sed) 0 SEEN Normal [facility] Comment on above: Order Comment: CLEAN CATCH Performed By: #### L 400.0001 ####[facility] [address] [place], [address] Urine Drug Screen (VISTA)on 03-19-2025 AMPHETAMINES Positive Normal <1000 ng/mL [facility] Comment on above: Result Comment: If c onfirmation testing is needed, a separate order will be required to send out testing to the reference laboratory. Performed By: #### M 100.2200 #### [facility] [address] [place], [address] BARBITIURATES Negative Normal < 200 ng/mL [facility] Comment on above: Performed By: #### M 100.2200 #### [facility] [address] [place], [address] BENZODIAZIPINE Positive Normal < 200 ng/mL [facility] Comment on above: Result Comment: If c onfirmation testing is needed, a separate order will be required to send out testing to the reference laboratory. Performed By: #### M 100.2200 #### [facility] [address] [place], [address] BUP Ur Drug Scr Negative Normal < 200 ng/mL [facility] Comment on above: Performed By: #### M 100.2200 #### [facility] [address] [place], [address] COCAINE Negative Normal < 300 ng/mL [facility] Comment on above: Performed By: #### M 100.2200 #### [facility] [address] [place], [address] Fentanyl Negative Normal [facility] Comment on above: Performed By: #### M 100.2200 #### [facility] [address] [place], [address] METHADONE Negative Normal < 300 ng/mL [facility] Comment on above: Performed By: #### M 100.2200 #### [facility] [address] [place], [address] OPIATES Negative Normal < 300 ng/mL [facility] Comment on above: Performed By: #### M 100.2200 #### [facility] [address] [place], [address] OXYCODONE Negative Normal < 100 ng/mL [facility] Comment on above: Performed By: #### M 100.2200 #### [facility] [facility] [address] [place], [address] PCP Negative Normal < 25 ng/mL [facility] Comment on above: Performed By: #### M [id number] #### [facility] [address] [place], [address] THC Positive Normal < 50 ng/mL [facility] Comment on above: Result Comment: If c onfirmation testing is needed, a separate order will be required to send out testing to the reference laboratory. Performed By: #### M [id number] #### [facility] [address] [place], [address] Urine benzodiazepine levelOr dered By: Nick Angelo on 03-19-2025 Benzodiazepines Ql (U) Positive < 200 ng/mL [facility] Comment on above: If confirmation test ing is needed, a separate order will be required to send out testing to the reference laboratory. Urine clarityOrdered By: Anamika Angelo on 03-19-2025 Clarity (U) Cloudy Clear [facility] Urine cocaine levelOrdered B y: Nick Angelo on 03-19-2025 Cocaine Ql (U) Negative < 300 ng/mL [facility] Urine color determinationOrd ered By: Nick Angelo on 03-19-2025 Color (U) Yellow Yellow [facility] Urine cultureOrdered By: Anamika Angelo on 03-19-2025 Bacteria identified Cx Nom (U) Citrobacter braakii Abnormal [facility] Bacteria identified Cx Nom (U) Providencia rettgeri Abnormal [facility] Bacteria identified Cx Nom (U) Morganella morganii sp morgani Abnormal [facility] Bacteria identified Cx Nom (U) Pseudomonas aeruginosa Abnormal [facility] Bacteria identified Cx Nom (U) Enterococcus faecalis Abnormal [facility] Bacteria identified Cx Nom (U) Positive Abnormal [facility] Urine [id number] abinol (THC) measurementOrdered By: Nick Angelo on 03-19-2025 Cannabinoids Screen Ql (U) Positive < 50 ng/mL [facility] Comment on above: If confirmation test ing is needed, a separate order will be required to send out testing to the reference laboratory. Urine glucose detectionOrder ed By: Nick Angelo on 03-19-2025 Glucose Ql (U) Normal mg/dl Normal [facility] Urine leukocyte esterase det ection by dipstickOrdered By: Nick Angelo on 03-19-2025 Leukocyte esterase Test strip Ql (U) 500 /ul High Negative [facility] Urine pHOrdered By: Nick jenkins on 03-19-2025 pH (U) 8.0 [pH] 5.0 - 8.0 [facility] Urine phencyclidine (PCP) de tectionOrdered By: Nick Angelo on 03-19-2025 Phencyclidine Ql (U) Negative < 25 ng/mL [facility] Urine sediment bacteria coun t by microscopy (number/high power field)Ordered By: Nick Angelo on 03-19-2025 Bacteria LM.HPF (Urine sed) [#/Area] 3 /[HPF] None Seen [facility] Urine specific gravity measu rementOrdered By: Nick Angelo on 03-19-2025 Specific gravity (U) [Rel density] 1.015 1.002-1.030 [facility] Urine urobilinogen measureme ntOrdered By: Nick Angelo on 03-19-2025 Urobilinogen Ql (U) 1 mg/dl High Normal [facility] White blood cell (WBC) count Ordered By: Nick Angelo on 03-19-2025 WBC (Bld) [#/Vol] 4.2 10*3/uL Low 4.4-11.0 [facility] White blood cell countOrdere d By: Nick Angelo on 03-19-2025 White blood cell count 10-25 SEEN /hpf 0-5 [facility] Ines 03-11-2025 [place] Telephone (UROLWS) -------- SIRISHAKATARZYNA M ([id number]) 1975 F [place] Date Time Provider Department 03/11/25 RUSH MAXWELL During your visit today, we recorded the following information about you: Bambi Thomas LPN 03/11/2025 2:56 PM Signed Received fax from [facility] that patient was concerned about urinary output. Spoke with SILVA Butler who states after she sent fax she was talking with patient and patient was uncertain if she woke up at night and emptied the drainage bag but has had 600 mL and 700 mL today and continues to drink fluids well without any signs/symptoms UTI. Bambi Thomas LPN Allergies As of Date: 03/11/2025 Noted Allergy Reaction ULTRAM (TRAMADOL HCL) 09/21/2005 1 - Mental Status Change Comments: SEIZURE VICODIN (HYDROCODONE-ACETAMINOPH E*09/11/2005 11 - Vomiting Date Reviewed: 02/02/2025 Reviewed by: Yessy Mares MA - Fully Assessed Reason for Visit: Returning Patient's Call [408] Prescriptions as of 03/11/2025 - oxybutynin ER (DITROPAN XL) 15 mg 24 hr Extended Rel Tab Take 1 tablet by mouth once daily. - diazePAM (VALIUM) 5 mg tablet Take 5 mg by mouth at bedtime as needed. - Drainage Bag 2,000 mL misc 1 Bag every other week. - Non-Adherent Bandage (EXCILON DRAIN) 4 X 4 spge Apply 1 application to affected area once daily. - gabapentin (NEURONTIN) 800 mg tablet Take 800 mg by mouth daily at bedtime. - acetaminophen (TYLENOL) 650 mg suppository 650 mg by RECTAL route every 4 hours as needed for fever (specify) or pain. - albuterol HFA (PROVENTIL HFA, VENTOLIN HFA) 90 mcg/actuation inhaler Inhale 2 Puffs as instructed every 4 hours as needed for wheezing/shortness of breath. - polyvinyl alcohol/povidone (ARTIFICIAL TEARS OPHTHALMIC) Use in eyes as needed. - cranberry fruit (CRANBERRY) 450 mg tab Take 450 mg by mouth once daily. - docusate sodium (COLACE) 100 mg capsule Take 100 mg by mouth twice daily. - glucagon 1 mg/mL injection Inject 1 mg intramuscularly as needed (for symptomatic hypoglycemia). - dextrose (GLUCOSE GEL ORAL) Take by mouth as needed (for Hypoglycemic episode). - ibuprofen (MOTRIN) 800 mg tablet Take 800 mg by mouth every 8 hours as needed for pain. - furosemide (LASIX) 20 mg tablet Take 20 mg by mouth once daily. For edema - amitriptyline (ELAVIL) 10 mg tablet Take 1 tablet by mouth daily at bedtime. - tiZANidine (ZANAFLEX) 4 mg tablet Take 2 tablets by mouth daily at bedtime. - dantrolene (DANTRIUM) 25 mg capsule Take 1 capsule by mouth twice daily. - clonazePAM (KLONOPIN) 0.5 mg tablet Take 0.5mg Klonopin QHS PRN - baclofen (LIORESAL) 20 mg tablet Take 1 tablet by mouth three times a day and 2 tablets by mouth at bedtime. - gabapentin (NEURONTIN) 400 mg capsule Take 1 capsule by mouth three times a day and 2 capsules by mouth at bedtime. - acetaminophen (TYLENOL) 325 mg tablet Take 1-2 tablets by mouth every 6 hours as needed for pain or fever (specify). - bisacodyl (DULCOLAX, BISACODYL,) 10 mg supp 1 Suppository by RECTAL route once daily as needed for constipation. - calcium citrate-vitamin D3 (CALCIUM CITRATE + D) 315 mg-5 mcg (200 unit) tab Take 1 tablet by mouth twice daily with meals. - DULoxetine (DRIZALMA SPRINKLE) 30 mg capsule, delayed release sprinkle Take 1 capsule (30 mg) by mouth twice daily. - famotidine (PEPCID) 20 mg tablet Take 1 tablet by mouth twice daily. - sodium phosphate-sodium bisphosphate (FLEET ENEMA) enema 133 mL by RECTAL route once daily as needed for constipation. - fluticasone (FLONASE ALLERGY RELIEF) 50 mcg/actuation nasal spray Use 2 Sprays in each nostril once daily. - guaiFENesin (ROBITUSSIN) 100 mg/5 mL syrup Take 10 mL by mouth every 4 hours as needed for cough. - loperamide HCl (IMODIUM A-D) 2 mg tab Take 1 tablet by mouth as needed (diarrhea). - ipratropium-albuterol (DUONEB) 0.5 mg-3 mg(2.5 mg base)/3 mL nebu Inhale 3 mL as instructed every 4 hours as needed for wheezing/shortness of breath. - loratadine (CLARITIN) 10 mg tablet Take 1 tablet by mouth once daily. - Melatonin 5 mg cap Take 2 capsules by mouth daily at bedtime. - methocarbamol (ROBAXIN) 500 mg tablet Take 2 tablets by mouth three times daily. - magnesium hydroxide (MILK OF MAGNESIA) 400 mg/5 mL suspension Take 30 mL by mouth once daily as needed for constipation. - multivitamin tablet Take 1 tablet by mouth once daily. - aluminum-magnesium hydroxide-simethicone (MAALOX,MYLANTA,MAG-AL PLUS) 200-200-20 mg/5 mL suspension Take 30 mL by mouth every 4 hours as needed (indigestion). - nystatin (MYCOSTATIN) powder Apply 1 application to affected area twice daily. - promethazine (PHENERGAN) 25 mg tablet Take 1 tablet by mouth every 4 hours as needed for nausea/vomiting. - senna (SENNA) 8.6 mg tab Take 2 tablets by mouth once daily. Problem List As Of Date 03/11/2025 (more content not included)... [facility] Nurse [facility] (UROLWS) -------- KATARZYNA VARGAS ([id number]) 1975 F [place] Date Time Provider Department 02/02/25 2:40 PM NURSE UROL [facility] During your visit today, we recorded the following information about you: Yessy Mares MA 02/02/2025 2:56 PM Signed In the supine position, the old suprapubic tube was removed with no difficulty. The area was prepped with betadine, and a new 24 Fr Schmitt with 30ml balloon was inserted through the stoma site into the bladder. The balloon was inflated with 20 cc's of sterile saline. The catheter was irrigated with sterile saline with good return. The pt tolerated the procedure well without complications. Follow up as discussed with ORALIA Ray MA Referring Provider: RUSH MAXWELL [[id number]] Allergies As of Date: 02/02/2025 Noted Allergy Reaction ULTRAM (TRAMADOL HCL) 09/21/2005 1 - Mental Status Change Comments: SEIZURE VICODIN (HYDROCODONE-ACETAMINOPH E*09/11/2005 11 - Vomiting Date Reviewed: 02/02/2025 Reviewed by: Yessy Mares MA - Fully Assessed Reason for Visit: SPT [346] Primary Visit Diagnosis:Neurogenic bladder [N31.9] Other Visit Diagnosis:Urinary retention [R33.9] Prescriptions as of 02/02/2025 - oxybutynin ER (DITROPAN XL) 15 mg 24 hr Extended Rel Tab Take 1 tablet by mouth once daily. - diazePAM (VALIUM) 5 mg tablet Take 5 mg by mouth at bedtime as needed. - Drainage Bag 2,000 mL misc 1 Bag every other week. - Non-Adherent Bandage (EXCILON DRAIN) 4 X 4 spge Apply 1 application to affected area once daily. - gabapentin (NEURONTIN) 800 mg tablet Take 800 mg by mouth daily at bedtime. - acetaminophen (TYLENOL) 650 mg suppository 650 mg by RECTAL route every 4 hours as needed for fever (specify) or pain. - albuterol HFA (PROVENTIL HFA, VENTOLIN HFA) 90 mcg/actuation inhaler Inhale 2 Puffs as instructed every 4 hours as needed for wheezing/shortness of breath. - polyvinyl alcohol/povidone (ARTIFICIAL TEARS OPHTHALMIC) Use in eyes as needed. - cranberry fruit (CRANBERRY) 450 mg tab Take 450 mg by mouth once daily. - docusate sodium (COLACE) 100 mg capsule Take 100 mg by mouth twice daily. - glucagon 1 mg/mL injection Inject 1 mg intramuscularly as needed (for symptomatic hypoglycemia). - dextrose (GLUCOSE GEL ORAL) Take by mouth as needed (for Hypoglycemic episode). - ibuprofen (MOTRIN) 800 mg tablet Take 800 mg by mouth every 8 hours as needed for pain. - furosemide (LASIX) 20 mg tablet Take 20 mg by mouth once daily. For edema - amitriptyline (ELAVIL) 10 mg tablet Take 1 tablet by mouth daily at bedtime. - tiZANidine (ZANAFLEX) 4 mg tablet Take 2 tablets by mouth daily at bedtime. - dantrolene (DANTRIUM) 25 mg capsule Take 1 capsule by mouth twice daily. - clonazePAM (KLONOPIN) 0.5 mg tablet Take 0.5mg Klonopin QHS PRN - baclofen (LIORESAL) 20 mg tablet Take 1 tablet by mouth three times a day and 2 tablets by mouth at bedtime. - gabapentin (NEURONTIN) 400 mg capsule Take 1 capsule by mouth three times a day and 2 capsules by mouth at bedtime. - acetaminophen (TYLENOL) 325 mg tablet Take 1-2 tablets by mouth every 6 hours as needed for pain or fever (specify). - bisacodyl (DULCOLAX, BISACODYL,) 10 mg supp 1 Suppository by RECTAL route once daily as needed for constipation. - calcium citrate-vitamin D3 (CALCIUM CITRATE + D) 315 mg-5 mcg (200 unit) tab Take 1 tablet by mouth twice daily with meals. - DULoxetine (DRIZALMA SPRINKLE) 30 mg capsule, delayed release sprinkle Take 1 capsule (30 mg) by mouth twice daily. - famotidine (PEPCID) 20 mg tablet Take 1 tablet by mouth twice daily. - sodium phosphate-sodium bisphosphate (FLEET ENEMA) enema 133 mL by RECTAL route once daily as needed for constipation. - fluticasone (FLONASE ALLERGY RELIEF) 50 mcg/actuation nasal spray Use 2 Sprays in each nostril once daily. - guaiFENesin (ROBITUSSIN) 100 mg/5 mL syrup Take 10 mL by mouth every 4 hours as needed for cough. - loperamide HCl (IMODIUM A-D) 2 mg tab Take 1 tablet by mouth as needed (diarrhea). - ipratropium-albuterol (DUONEB) 0.5 mg-3 mg(2.5 mg base)/3 mL nebu Inhale 3 mL as instructed every 4 hours as needed for wheezing/shortness of breath. - loratadine (CLARITIN) 10 mg tablet Take 1 tablet by mouth once daily. - Melatonin 5 mg cap Take 2 capsules by mouth daily at bedtime. - methocarbamol (ROBAXIN) 500 mg tablet Take 2 tablets by mouth three times daily. - magnesium hydroxide (MILK OF MAGNESIA) 400 mg/5 mL suspension Take 30 mL by mouth once daily as needed for constipation. - multivitamin tablet Take 1 tablet by mouth once daily. - aluminum-magnesium hydroxide-simethicone (MAALOX,MYLANTA,MAG-AL PLUS) 200-200-20 mg/5 mL suspension Take 30 mL by mouth every 4 hours as needed (indigestion). - nystatin (MYCOSTATIN) powder Apply 1 application to affected area twice (more content not included)... Normal [facility] 01-06-2025 [facility] Telephone (UROLWS) -------- KATARZYNA VARGAS ([id number]) 1975 F [place] Date Time Provider Department 01/06/25 RUSH MAXWELL During your visit today, we recorded the following information about you: Bambi Thomas LPN 01/06/2025 1:27 PM Signed Received fax from [facility] Faxed signed by Rush Maxwell PA-C order for drain bag with double back hanger. Bambi Thomas LPN Allergies As of Date: 01/06/2025 Noted Allergy Reaction ULTRAM (TRAMADOL HCL) 09/21/2005 1 - Mental Status Change Comments: SEIZURE VICODIN (HYDROCODONE-ACETAMINOPH E*09/11/2005 11 - Vomiting Date Reviewed: 01/05/2025 Reviewed by: Yessy Mares MA - Fully Assessed Reason for Visit: Orders [681] Prescriptions as of 01/06/2025 - oxybutynin ER (DITROPAN XL) 15 mg 24 hr Extended Rel Tab Take 1 tablet by mouth once daily. - diazePAM (VALIUM) 5 mg tablet Take 5 mg by mouth at bedtime as needed. - Drainage Bag 2,000 mL misc 1 Bag every other week. - Non-Adherent Bandage (EXCILON DRAIN) 4 X 4 spge Apply 1 application to affected area once daily. - gabapentin (NEURONTIN) 800 mg tablet Take 800 mg by mouth daily at bedtime. - acetaminophen (TYLENOL) 650 mg suppository 650 mg by RECTAL route every 4 hours as needed for fever (specify) or pain. - albuterol HFA (PROVENTIL HFA, VENTOLIN HFA) 90 mcg/actuation inhaler Inhale 2 Puffs as instructed every 4 hours as needed for wheezing/shortness of breath. - polyvinyl alcohol/povidone (ARTIFICIAL TEARS OPHTHALMIC) Use in eyes as needed. - cranberry fruit (CRANBERRY) 450 mg tab Take 450 mg by mouth once daily. - docusate sodium (COLACE) 100 mg capsule Take 100 mg by mouth twice daily. - glucagon 1 mg/mL injection Inject 1 mg intramuscularly as needed (for symptomatic hypoglycemia). - dextrose (GLUCOSE GEL ORAL) Take by mouth as needed (for Hypoglycemic episode). - ibuprofen (MOTRIN) 800 mg tablet Take 800 mg by mouth every 8 hours as needed for pain. - furosemide (LASIX) 20 mg tablet Take 20 mg by mouth once daily. For edema - amitriptyline (ELAVIL) 10 mg tablet Take 1 tablet by mouth daily at bedtime. - tiZANidine (ZANAFLEX) 4 mg tablet Take 2 tablets by mouth daily at bedtime. - dantrolene (DANTRIUM) 25 mg capsule Take 1 capsule by mouth twice daily. - clonazePAM (KLONOPIN) 0.5 mg tablet Take 0.5mg Klonopin QHS PRN - baclofen (LIORESAL) 20 mg tablet Take 1 tablet by mouth three times a day and 2 tablets by mouth at bedtime. - gabapentin (NEURONTIN) 400 mg capsule Take 1 capsule by mouth three times a day and 2 capsules by mouth at bedtime. - acetaminophen (TYLENOL) 325 mg tablet Take 1-2 tablets by mouth every 6 hours as needed for pain or fever (specify). - bisacodyl (DULCOLAX, BISACODYL,) 10 mg supp 1 Suppository by RECTAL route once daily as needed for constipation. - calcium citrate-vitamin D3 (CALCIUM CITRATE + D) 315 mg-5 mcg (200 unit) tab Take 1 tablet by mouth twice daily with meals. - DULoxetine (DRIZALMA SPRINKLE) 30 mg capsule, delayed release sprinkle Take 1 capsule (30 mg) by mouth twice daily. - famotidine (PEPCID) 20 mg tablet Take 1 tablet by mouth twice daily. - sodium phosphate-sodium bisphosphate (FLEET ENEMA) enema 133 mL by RECTAL route once daily as needed for constipation. - fluticasone (FLONASE ALLERGY RELIEF) 50 mcg/actuation nasal spray Use 2 Sprays in each nostril once daily. - guaiFENesin (ROBITUSSIN) 100 mg/5 mL syrup Take 10 mL by mouth every 4 hours as needed for cough. - loperamide HCl (IMODIUM A-D) 2 mg tab Take 1 tablet by mouth as needed (diarrhea). - ipratropium-albuterol (DUONEB) 0.5 mg-3 mg(2.5 mg base)/3 mL nebu Inhale 3 mL as instructed every 4 hours as needed for wheezing/shortness of breath. - loratadine (CLARITIN) 10 mg tablet Take 1 tablet by mouth once daily. - Melatonin 5 mg cap Take 2 capsules by mouth daily at bedtime. - methocarbamol (ROBAXIN) 500 mg tablet Take 2 tablets by mouth three times daily. - magnesium hydroxide (MILK OF MAGNESIA) 400 mg/5 mL suspension Take 30 mL by mouth once daily as needed for constipation. - multivitamin tablet Take 1 tablet by mouth once daily. - aluminum-magnesium hydroxide-simethicone (MAALOX,MYLANTA,MAG-AL PLUS) 200-200-20 mg/5 mL suspension Take 30 mL by mouth every 4 hours as needed (indigestion). - nystatin (MYCOSTATIN) powder Apply 1 application to affected area twice daily. - promethazine (PHENERGAN) 25 mg tablet Take 1 tablet by mouth every 4 hours as needed for nausea/vomiting. - senna (SENNA) 8.6 mg tab Take 2 tablets by mouth once daily. 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 Normal [facility] CNNURSEon 01-05-2025 CNNURSE Nurse Visit (UROLWS) -------- KATARZYNA VARGAS ([id number]) 1975 F [place] Date Time Provider Department 01/05/25 2:40 PM NURSE UROL [facility] During your visit today, we recorded the following information about you: Yessy Mares MA 01/05/2025 2:55 PM Signed Suprapubic catheter change performed as ordered. A [address] catheter with 30ml balloon was replaced using sterile technique without complications. Balloon inflated with 20cc of sterile saline. Patient tolerated procedure well. Irrigation preformed to insure proper placement with good return and without complication. Patient to follow up in 1 month. Patient to call in the interim with any problems or concerns. Yessy Mares Ma Allergies As of Date: 01/05/2025 Noted Allergy Reaction ULTRAM (TRAMADOL HCL) 09/21/2005 1 - Mental Status Change Comments: SEIZURE VICODIN (HYDROCODONE-ACETAMINOPH E*09/11/2005 11 - Vomiting Date Reviewed: 01/05/2025 Reviewed by: Yessy Mares MA - Fully Assessed Reason for Visit: SPT [346] Primary Visit Diagnosis:Neurogenic bladder [N31.9] Prescriptions as of 01/05/2025 - oxybutynin ER (DITROPAN XL) 15 mg 24 hr Extended Rel Tab Take 1 tablet by mouth once daily. - diazePAM (VALIUM) 5 mg tablet Take 5 mg by mouth at bedtime as needed. - Drainage Bag 2,000 mL misc 1 Bag every other week. - Non-Adherent Bandage (EXCILON DRAIN) 4 X 4 spge Apply 1 application to affected area once daily. - gabapentin (NEURONTIN) 800 mg tablet Take 800 mg by mouth daily at bedtime. - acetaminophen (TYLENOL) 650 mg suppository 650 mg by RECTAL route every 4 hours as needed for fever (specify) or pain. - albuterol HFA (PROVENTIL HFA, VENTOLIN HFA) 90 mcg/actuation inhaler Inhale 2 Puffs as instructed every 4 hours as needed for wheezing/shortness of breath. - polyvinyl alcohol/povidone (ARTIFICIAL TEARS OPHTHALMIC) Use in eyes as needed. - cranberry fruit (CRANBERRY) 450 mg tab Take 450 mg by mouth once daily. - docusate sodium (COLACE) 100 mg capsule Take 100 mg by mouth twice daily. - glucagon 1 mg/mL injection Inject 1 mg intramuscularly as needed (for symptomatic hypoglycemia). - dextrose (GLUCOSE GEL ORAL) Take by mouth as needed (for Hypoglycemic episode). - ibuprofen (MOTRIN) 800 mg tablet Take 800 mg by mouth every 8 hours as needed for pain. - furosemide (LASIX) 20 mg tablet Take 20 mg by mouth once daily. For edema - amitriptyline (ELAVIL) 10 mg tablet Take 1 tablet by mouth daily at bedtime. - tiZANidine (ZANAFLEX) 4 mg tablet Take 2 tablets by mouth daily at bedtime. - dantrolene (DANTRIUM) 25 mg capsule Take 1 capsule by mouth twice daily. - clonazePAM (KLONOPIN) 0.5 mg tablet Take 0.5mg Klonopin QHS PRN - baclofen (LIORESAL) 20 mg tablet Take 1 tablet by mouth three times a day and 2 tablets by mouth at bedtime. - gabapentin (NEURONTIN) 400 mg capsule Take 1 capsule by mouth three times a day and 2 capsules by mouth at bedtime. - acetaminophen (TYLENOL) 325 mg tablet Take 1-2 tablets by mouth every 6 hours as needed for pain or fever (specify). - bisacodyl (DULCOLAX, BISACODYL,) 10 mg supp 1 Suppository by RECTAL route once daily as needed for constipation. - calcium citrate-vitamin D3 (CALCIUM CITRATE + D) 315 mg-5 mcg (200 unit) tab Take 1 tablet by mouth twice daily with meals. - DULoxetine (DRIZALMA SPRINKLE) 30 mg capsule, delayed release sprinkle Take 1 capsule (30 mg) by mouth twice daily. - famotidine (PEPCID) 20 mg tablet Take 1 tablet by mouth twice daily. - sodium phosphate-sodium bisphosphate (FLEET ENEMA) enema 133 mL by RECTAL route once daily as needed for constipation. - fluticasone (FLONASE ALLERGY RELIEF) 50 mcg/actuation nasal spray Use 2 Sprays in each nostril once daily. - guaiFENesin (ROBITUSSIN) 100 mg/5 mL syrup Take 10 mL by mouth every 4 hours as needed for cough. - loperamide HCl (IMODIUM A-D) 2 mg tab Take 1 tablet by mouth as needed (diarrhea). - ipratropium-albuterol (DUONEB) 0.5 mg-3 mg(2.5 mg base)/3 mL nebu Inhale 3 mL as instructed every 4 hours as needed for wheezing/shortness of breath. - loratadine (CLARITIN) 10 mg tablet Take 1 tablet by mouth once daily. - Melatonin 5 mg cap Take 2 capsules by mouth daily at bedtime. - methocarbamol (ROBAXIN) 500 mg tablet Take 2 tablets by mouth three times daily. - magnesium hydroxide (MILK OF MAGNESIA) 400 mg/5 mL suspension Take 30 mL by mouth once daily as needed for constipation. - multivitamin tablet Take 1 tablet by mouth once daily. - aluminum-magnesium hydroxide-simethicone (MAALOX,MYLANTA,MAG-AL PLUS) 200-200-20 mg/5 mL suspension Take 30 mL by mouth every 4 hours as needed (indigestion). - nystatin (MYCOSTATIN) powder Apply 1 application to affected area twice daily. - promethazine (PHENERGAN) 25 mg tablet Take 1 tablet by mouth every 4 hours as needed for nause (more content not included)... [facility] KATARZYNA VARGAS ([id number]) 1975 F [place] Date Time Provider Department 12/08/24 2:40 PM NURSE UROL [facility] During your visit today, we recorded the following information about you: Bambi Thomas LPN 12/09/2024 9:57 AM Signed Verified name and date of . CC Supra pubic catheter in Place HPI: Katarzyna Vargas is a 49 year old female. The patient is here now for a supra pubic catheter change with diagnosis of atonic neurogenic bladder. Procedure: Performed a catheter change. Removed fluid from balloon in the schmitt. The indwelling supra pubic schmitt size 24 Fr was removed with catheter tip intact without difficulty. Inserted [address] catheter using aseptic technique. Irrigated with 60 mL 0.9% sodium chloride without difficulties. Very large amount of clear yellow return noted with sediment noted throughout. Bulb inflated with 20 mLs prefilled syringe- sterile water. Covered with t-sponge. Patient does not want secured with statlock. The patient tolerated the procedure well. Assessment/Plan: Successful catheter change. Return for catheter changes as planned. Bambi Thomas LPN Allergies As of Date: 12/08/2024 Noted Allergy Reaction ULTRAM (TRAMADOL HCL) 09/21/2005 1 - Mental Status Change Comments: SEIZURE VICODIN (HYDROCODONE-ACETAMINOPH E*09/11/2005 11 - Vomiting Date Reviewed: 11/03/2024 Reviewed by: Bambi Thomas LPN - Fully Assessed Reason for Visit: Nurse Visit [792] SPT [346] Primary Visit Diagnosis:Neurogenic bladder [N31.9] Prescriptions as of 12/09/2024 - oxybutynin ER (DITROPAN XL) 15 mg 24 hr Extended Rel Tab Take 1 tablet by mouth once daily. - diazePAM (VALIUM) 5 mg tablet Take 5 mg by mouth at bedtime as needed. - Drainage Bag 2,000 mL misc 1 Bag every other week. - Non-Adherent Bandage (EXCILON DRAIN) 4 X 4 spge Apply 1 application to affected area once daily. - gabapentin (NEURONTIN) 800 mg tablet Take 800 mg by mouth daily at bedtime. - acetaminophen (TYLENOL) 650 mg suppository 650 mg by RECTAL route every 4 hours as needed for fever (specify) or pain. - albuterol HFA (PROVENTIL HFA, VENTOLIN HFA) 90 mcg/actuation inhaler Inhale 2 Puffs as instructed every 4 hours as needed for wheezing/shortness of breath. - polyvinyl alcohol/povidone (ARTIFICIAL TEARS OPHTHALMIC) Use in eyes as needed. - cranberry fruit (CRANBERRY) 450 mg tab Take 450 mg by mouth once daily. - docusate sodium (COLACE) 100 mg capsule Take 100 mg by mouth twice daily. - glucagon 1 mg/mL injection Inject 1 mg intramuscularly as needed (for symptomatic hypoglycemia). - dextrose (GLUCOSE GEL ORAL) Take by mouth as needed (for Hypoglycemic episode). - ibuprofen (MOTRIN) 800 mg tablet Take 800 mg by mouth every 8 hours as needed for pain. - furosemide (LASIX) 20 mg tablet Take 20 mg by mouth once daily. For edema - amitriptyline (ELAVIL) 10 mg tablet Take 1 tablet by mouth daily at bedtime. - tiZANidine (ZANAFLEX) 4 mg tablet Take 2 tablets by mouth daily at bedtime. - dantrolene (DANTRIUM) 25 mg capsule Take 1 capsule by mouth twice daily. - clonazePAM (KLONOPIN) 0.5 mg tablet Take 0.5mg Klonopin QHS PRN - baclofen (LIORESAL) 20 mg tablet Take 1 tablet by mouth three times a day and 2 tablets by mouth at bedtime. - gabapentin (NEURONTIN) 400 mg capsule Take 1 capsule by mouth three times a day and 2 capsules by mouth at bedtime. - acetaminophen (TYLENOL) 325 mg tablet Take 1-2 tablets by mouth every 6 hours as needed for pain or fever (specify). - bisacodyl (DULCOLAX, BISACODYL,) 10 mg supp 1 Suppository by RECTAL route once daily as needed for constipation. - calcium citrate-vitamin D3 (CALCIUM CITRATE + D) 315 mg-5 mcg (200 unit) tab Take 1 tablet by mouth twice daily with meals. - DULoxetine (DRIZALMA SPRINKLE) 30 mg capsule, delayed release sprinkle Take 1 capsule (30 mg) by mouth twice daily. - famotidine (PEPCID) 20 mg tablet Take 1 tablet by mouth twice daily. - sodium phosphate-sodium bisphosphate (FLEET ENEMA) enema 133 mL by RECTAL route once daily as needed for constipation. - fluticasone (FLONASE ALLERGY RELIEF) 50 mcg/actuation nasal spray Use 2 Sprays in each nostril once daily. - guaiFENesin (ROBITUSSIN) 100 mg/5 mL syrup Take 10 mL by mouth every 4 hours as needed for cough. - loperamide HCl (IMODIUM A-D) 2 mg tab Take 1 tablet by mouth as needed (diarrhea). - ipratropium-albuterol (DUONEB) 0.5 mg-3 mg(2.5 mg base)/3 mL nebu Inhale 3 mL as instructed every 4 hours as needed for wheezing/shortness of breath. - loratadine (CLARITIN) 10 mg tablet Take 1 tablet by mouth once daily. - Melatonin 5 mg cap Take 2 capsules by mouth daily at bedtime. - methocarbamol (ROBAXIN) 500 mg tablet Take 2 tablets by mouth three times daily. - magnesium hydroxide (MILK OF MAGNESIA) 400 mg/5 mL suspensio (more content not included)... Normal [facility] -------- KATARZYNA VARGAS ([id number]) 1975 F [facility] Date Time Provider Department 11/03/24 2:40 PM NURSE [facility]OL [facility] UR[facility] During your visit today, we recorded the following information about you: Bambi Thomas LPN 11/03/2024 2:42 PM Signed Verified name and date of . CC Supra pubic catheter in Place HPI: Katarzyna Vargas is a 49 year old female. The patient is here now for a supra pubic catheter change with diagnosis of atonic neurogenic bladder. Procedure: Performed a catheter change. Removed fluid from balloon in the schmitt. The indwelling supra pubic schmitt size 24 Fr was removed with catheter tip intact without difficulty. Inserted [address] catheter using aseptic technique. Irrigated with 60 mL 0.9% sodium chloride without difficulties. Very large amount of clear yellow return noted with sediment noted throughout. Bulb inflated with 20 mLs prefilled syringe- sterile water. Covered with t-sponge. Patient does not want secured with statlock. The patient tolerated the procedure well. Assessment/Plan: Successful catheter change. Return for catheter changes as planned. Bambi Thomas LPN Allergies As of Date: 11/03/2024 Noted Allergy Reaction ULTRAM (TRAMADOL HCL) 09/21/2005 1 - Mental Status Change Comments: SEIZURE VICODIN (HYDROCODONE-ACETAMINOPH E*09/11/2005 11 - Vomiting Date Reviewed: 11/03/2024 Reviewed by: Bambi Thomas LPN - Fully Assessed Reason for Visit: Nurse Visit [792] Cmt: SPT change Primary Visit Diagnosis:Neurogenic bladder [N31.9] Prescriptions as of 11/03/2024 - oxybutynin ER (DITROPAN XL) 15 mg 24 hr Extended Rel Tab Take 1 tablet by mouth once daily. - diazePAM (VALIUM) 5 mg tablet Take 5 mg by mouth at bedtime as needed. - Drainage Bag 2,000 mL misc 1 Bag every other week. - Non-Adherent Bandage (EXCILON DRAIN) 4 X 4 spge Apply 1 application to affected area once daily. - gabapentin (NEURONTIN) 800 mg tablet Take 800 mg by mouth daily at bedtime. - acetaminophen (TYLENOL) 650 mg suppository 650 mg by RECTAL route every 4 hours as needed for fever (specify) or pain. - albuterol HFA (PROVENTIL HFA, VENTOLIN HFA) 90 mcg/actuation inhaler Inhale 2 Puffs as instructed every 4 hours as needed for wheezing/shortness of breath. - polyvinyl alcohol/povidone (ARTIFICIAL TEARS OPHTHALMIC) Use in eyes as needed. - cranberry fruit (CRANBERRY) 450 mg tab Take 450 mg by mouth once daily. - docusate sodium (COLACE) 100 mg capsule Take 100 mg by mouth twice daily. - glucagon 1 mg/mL injection Inject 1 mg intramuscularly as needed (for symptomatic hypoglycemia). - dextrose (GLUCOSE GEL ORAL) Take by mouth as needed (for Hypoglycemic episode). - ibuprofen (MOTRIN) 800 mg tablet Take 800 mg by mouth every 8 hours as needed for pain. - furosemide (LASIX) 20 mg tablet Take 20 mg by mouth once daily. For edema - amitriptyline (ELAVIL) 10 mg tablet Take 1 tablet by mouth daily at bedtime. - tiZANidine (ZANAFLEX) 4 mg tablet Take 2 tablets by mouth daily at bedtime. - dantrolene (DANTRIUM) 25 mg capsule Take 1 capsule by mouth twice daily. - clonazePAM (KLONOPIN) 0.5 mg tablet Take 0.5mg Klonopin QHS PRN - baclofen (LIORESAL) 20 mg tablet Take 1 tablet by mouth three times a day and 2 tablets by mouth at bedtime. - gabapentin (NEURONTIN) 400 mg capsule Take 1 capsule by mouth three times a day and 2 capsules by mouth at bedtime. - acetaminophen (TYLENOL) 325 mg tablet Take 1-2 tablets by mouth every 6 hours as needed for pain or fever (specify). - bisacodyl (DULCOLAX, BISACODYL,) 10 mg supp 1 Suppository by RECTAL route once daily as needed for constipation. - calcium citrate-vitamin D3 (CALCIUM CITRATE + D) 315 mg-5 mcg (200 unit) tab Take 1 tablet by mouth twice daily with meals. - DULoxetine (DRIZALMA SPRINKLE) 30 mg capsule, delayed release sprinkle Take 1 capsule (30 mg) by mouth twice daily. - famotidine (PEPCID) 20 mg tablet Take 1 tablet by mouth twice daily. - sodium phosphate-sodium bisphosphate (FLEET ENEMA) enema 133 mL by RECTAL route once daily as needed for constipation. - fluticasone (FLONASE ALLERGY RELIEF) 50 mcg/actuation nasal spray Use 2 Sprays in each nostril once daily. - guaiFENesin (ROBITUSSIN) 100 mg/5 mL syrup Take 10 mL by mouth every 4 hours as needed for cough. - loperamide HCl (IMODIUM A-D) 2 mg tab Take 1 tablet by mouth as needed (diarrhea). - ipratropium-albuterol (DUONEB) 0.5 mg-3 mg(2.5 mg base)/3 mL nebu Inhale 3 mL as instructed every 4 hours as needed for wheezing/shortness of breath. - loratadine (CLARITIN) 10 mg tablet Take 1 tablet by mouth once daily. - Melatonin 5 mg cap Take 2 capsules by mouth daily at bedtime. - methocarbamol (ROBAXIN) 500 mg tablet Take 2 tablets by mouth three times daily. - magnesium hydroxide (MILK OF MAGNESIA) 400 mg/5 mL suspe (more content not included)... Normal [facility] Stress Reporton 10-07-2024 Stress Report [facility] [address] [place] [address] MR#: [id number] Acct: [id number] Name: KATARZYNA VARGAS Rep #: [id number] : 1975 49 From: Homar Wiley MD Primary Care: Dr. Darrel Veloz DO Status: REG CLI Referring Dr: Darrel Veloz DO Sex: F C Stress Test Report Pharmacologic myocardial perfusion stress test. 49-year-old lady with a history of chest pain Resting EKG demonstrates sinus bradycardia with a rate of 54 bpm. Resting blood pressure is 110/70 mmHg. 0.4 mg of regadenoson was infused per usual protocol followed by rapid intravenous saline flush injection. Continuous EKG monitoring was performed. The maximum heart rate was 79 bpm which was 45% of max impacted heart rate the maximum workload was 1 metabolic equivalent. At rest there were no ST or T wave changes noted to suggest ischemia and at peak infusion nonspecific ST changes were noted which did not meet the criteria for ischemia. No clinical angina is noted. The final blood pressure was 104/60 mmHg. Myocardial perfusion protocol. 15 mCi of technetium 99m sestamibi was injected at rest. 0.4 mg of regadenoson was infused per usual protocol. At peak infusion 45.1 mCi of technetium 99m sestamibi was injected stress images were obtained stress and rest images were reconstructed and compared in the short axis vertical long and horizontal long axis. Gated images were also obtained. Perfusion SPECT analysis: Review of the stress images demonstrate normal uptake of tracer noted in all areas of the myocardium. The resting images similar demonstrated normal uptake of tracer noted in all areas of the myocardium. No areas of reversibility are noted to suggest ischemia and no previous infarct is noted. Gated SPECT analysis: The gated ejection fraction is 70%. Conclusion: Normal pharmacologic myocardial perfusion stress test. Preserved ejection fraction. 10/07/24 1202 Date Homar Wiley MD CC: Dr. Darrel Veloz, DO Date Dictated: 10/07/24 1200 Date Transcribed: 10/07/24 1200 Student Records Specialist: CO Signed Normal [facility] CNNURSEon 10-06-2024 CNNURSE Nurse Visit (UROLWS) -------- KATARZYNA VARGAS ([id number]) 1975 F [facility] Date Time Provider Department 10/06/24 2:40 PM NURSE UROL [facility] UROLWS During your visit today, we recorded the following information about you: Yessy Mares MA 10/06/2024 3:19 PM Signed In the modified supine position in the patient's automatic wheelchair, the old 24Fr suprapubic tube was removed without difficulty. The area was prepped with betadine, and a new 24 Fr Schmitt was inserted through the stoma site into the bladder. The balloon was inflated with 20 cc's of sterile saline. The catheter was irrigated with 60ml sterile saline with good return. The pt tolerated the procedure well without complications. 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 - diazePAM (VALIUM) 5 mg tablet Take 5 mg by mouth at bedtime as needed. - Drainage Bag 2,000 mL misc 1 Bag every other week. - Non-Adherent Bandage (EXCILON DRAIN) 4 X 4 spge Apply 1 application to affected area once daily. - gabapentin (NEURONTIN) 800 mg tablet Take 800 mg by mouth daily at bedtime. - acetaminophen (TYLENOL) 650 mg suppository 650 mg by RECTAL route every 4 hours as needed for fever (specify) or pain. - albuterol HFA (PROVENTIL HFA, VENTOLIN HFA) 90 mcg/actuation inhaler Inhale 2 Puffs as instructed every 4 hours as needed for wheezing/shortness of breath. - polyvinyl alcohol/povidone (ARTIFICIAL TEARS OPHTHALMIC) Use in eyes as needed. - cranberry fruit (CRANBERRY) 450 mg tab Take 450 mg by mouth once daily. - docusate sodium (COLACE) 100 mg capsule Take 100 mg by mouth twice daily. - glucagon 1 mg/mL injection Inject 1 mg intramuscularly as needed (for symptomatic hypoglycemia). - dextrose (GLUCOSE GEL ORAL) Take by mouth as needed (for Hypoglycemic episode). - ibuprofen (MOTRIN) 800 mg tablet Take 800 mg by mouth every 8 hours as needed for pain. - furosemide (LASIX) 20 mg tablet Take 20 mg by mouth once daily. For edema - amitriptyline (ELAVIL) 10 mg tablet Take 1 tablet by mouth daily at bedtime. - tiZANidine (ZANAFLEX) 4 mg tablet Take 2 tablets by mouth daily at bedtime. - dantrolene (DANTRIUM) 25 mg capsule Take 1 capsule by mouth twice daily. - clonazePAM (KLONOPIN) 0.5 mg tablet Take 0.5mg Klonopin QHS PRN - baclofen (LIORESAL) 20 mg tablet Take 1 tablet by mouth three times a day and 2 tablets by mouth at bedtime. - gabapentin (NEURONTIN) 400 mg capsule Take 1 capsule by mouth three times a day and 2 capsules by mouth at bedtime. - acetaminophen (TYLENOL) 325 mg tablet Take 1-2 tablets by mouth every 6 hours as needed for pain or fever (specify). - bisacodyl (DULCOLAX, BISACODYL,) 10 mg supp 1 Suppository by RECTAL route once daily as needed for constipation. - calcium citrate-vitamin D3 (CALCIUM CITRATE + D) 315 mg-5 mcg (200 unit) tab Take 1 tablet by mouth twice daily with meals. - DULoxetine (DRIZALMA SPRINKLE) 30 mg capsule, delayed release sprinkle Take 1 capsule (30 mg) by mouth twice daily. - famotidine (PEPCID) 20 mg tablet Take 1 tablet by mouth twice daily. - sodium phosphate-sodium bisphosphate (FLEET ENEMA) enema 133 mL by RECTAL route once daily as needed for constipation. - fluticasone (FLONASE ALLERGY RELIEF) 50 mcg/actuation nasal spray Use 2 Sprays in each nostril once daily. - guaiFENesin (ROBITUSSIN) 100 mg/5 mL syrup Take 10 mL by mouth every 4 hours as needed for cough. - loperamide HCl (IMODIUM A-D) 2 mg tab Take 1 tablet by mouth as needed (diarrhea). - ipratropium-albuterol (DUONEB) 0.5 mg-3 mg(2.5 mg base)/3 mL nebu Inhale 3 mL as instructed every 4 hours as needed for wheezing/shortness of breath. - loratadine (CLARITIN) 10 mg tablet Take 1 tablet by mouth once daily. - Melatonin 5 mg cap Take 2 capsules by mouth daily at bedtime. - methocarbamol (ROBAXIN) 500 mg tablet Take 2 tablets by mouth three times daily. - magnesium hydroxide (MILK OF MAGNESIA) 400 mg/5 mL suspension Take 30 mL by mouth once daily as needed for constipation. - multivitamin tablet Take 1 tablet by mouth once daily. - aluminum-magnesium hydroxide-simethicone (MAALOX,MYLANTA,MAG-AL PLUS) 200-200-20 mg/5 mL suspension Take 30 mL by mouth every 4 hours as needed (indigestion). - nystatin (MYCOSTATIN) powder Apply 1 application to affected area (more content not included)... Normal [facility] 12 Lead EKGon 09-25-2024 12 Lead EKG [facility] Cardi[facility] Services [address] [address] 12 Lead EKG 09/25/24 0900 MR#: [id number] Acct: [id number] Name: KATARZYNA VARGAS Rep #: [id number] : 1975 49 From: Homar Wiley MD Attending Dr: Status: DEP ER Ordering Dr: Souleymane Fragoso MD Date: 09/25/24 Location: ED Sex: F C Admitted: Test Reason : Blood Pressure : */* mmHG Vent. Rate : 89 BPM Atrial Rate : 89 BPM P-R Int : 122 ms QRS Dur : 106 ms QT Int : 370 ms P-R-T Axes : 46 73 -6 degrees QTcB Int : 450 ms Normal sinus rhythm Inferior-posterior infarct , age undetermined T wave abnormality, consider lateral ischemia Abnormal ECG Confirmed by KAROLINA IRELAND, HOMAR ([id number]), online content editor ERICK WIGGINS ([id number]) on 09/28/2024 7:59:44 AM Referred By: Confirmed By: HOMAR WILEY MD 09/28/24 0759 Date Homar Wiley MD CC: Dr. Souleymane Fragoso MD; Dr. Darrel Veloz, DO Signed Normal [facility] Basic Metabolic Profile (BMP )on 09-25-2024 BUN/CRE 7.1 RATIO Low 10-20 [facility] Comment on above: Order Comment: 1Y Performed By: #### L 501.5425, L100.0100, L500.2500 ####[facility] [address] [place], [address] CA,Total 10.4 mg/dL High 8.5-10.1 [facility] Comment on above: Order Comment: 1Y Performed By: #### L 501.5425, L100.0100, L500.2500 ####[facility] [address] [place], [address] Chloride [Moles/Vol] 92 mmol/L Low 98-107 [facility] Comment on above: Order Comment: 1Y Performed By: #### L 501.5425, L100.0100, L500.2500 ####[facility] [address] [place], [address] CO2 [Moles/Vol] 32.0 mmol/L Normal 21.0-32.0 [facility] Comment on above: Order Comment: 1Y Performed By: #### L 501.5425, L100.0100, L500.2500 ####[facility] [address] [place], [address] Creatinine [Mass/Vol] 1.12 mg/dL High 0.55-1.02 [facility] Comment on above: Order Comment: 1Y Result Comment: The validity of the calculated GFR GFRAA in patients over 70 years has not been determined. Clinical correlation is essential. Performed By: #### L 501.5425, L100.0100, L500.2500 ####[facility] [address] [place], [address] ECRCL 80.12 ml/min Normal [facility] Comment on above: Order Comment: 1Y Performed By: #### L 501.5425, L100.0100, L500.2500 ####[facility] [address] [place], [address] EST GFR - AA 67 mL/min Normal >60 [facility] Comment on above: Order Comment: 1Y Result Comment: Afri can Vietnamese GFR Calc Performed By: #### L 501.5425, L100.0100, L500.2500 ####[facility] [address] [place], [address] GAP 10 Normal 5-15 [facility] Comment on above: Order Comment: 1Y Performed By: #### L 501.5425, L100.0100, L500.2500 ####[facility] [address] [place], [address] GFR/1.73 sq M.predicted among non-blacks MDRD (S/P/Bld) [Vol rate/Area] 55 mL/min/{1.73_m2} Low >60 [facility] Comment on above: Order Comment: 1Y Result Comment: Non- GFR Calc Performed By: #### L 501.5425, L100.0100, L500.2500 ####[facility] [address] [place], [address] Glucose [Mass/Vol] 77 mg/dL Normal 74-106 [facility] Comment on above: Order Comment: 1Y Performed By: #### L 501.5425, L100.0100, L500.2500 ####[facility] [address] [place], [address] Potassium [Moles/Vol] 2.6 mmol/L Invalid Interpretation Code 3.5-5.1 [facility] Comment on above: Order Comment: 1Y Performed By: #### L 501.5425, L100.0100, L500.2500 ####[facility] [address] [place], [address] Sodium [Moles/Vol] 134 mmol/L Low 136-145 [facility] Comment on above: Order Comment: 1Y Performed By: #### L 501.5425, L100.0100, L500.2500 ####[facility] [address] [place], [address] Urea nitrogen [Mass/Vol] 8 mg/dL Normal 7-18 [facility] Comment on above: Order Comment: 1Y Performed By: #### L 501.5425, L100.0100, L500.2500 ####[facility] [address] [place], [address] CBC W/Diff, Automatedon 01-0 3-2025 Absolute Lymph 2.03 X10 3/uL Normal 0.83-4.51 [facility] Comment on above: Performed By: #### L 501.5425, L100.0100, L500.2500 #### [facility] [address] [place], [address] Absolute Neut 3.6 X10 3/uL Normal 2.0-7.7 [facility] Comment on above: Performed By: #### L 501.5425, L100.0100, L500.2500 #### [facility] [address] [place], [address] Basophils/100 WBC (Bld) 1.7 % High 0-1 [facility] Comment on above: Performed By: #### L 501.5425, L100.0100, L500.2500 #### [facility] [address] [place], [address] Eosinophils/100 WBC (Bld) 2.4 % Normal 0-5 [facility] Comment on above: Performed By: #### L 501.5425, L100.0100, L500.2500 #### [facility] [address] [place], [address] Erythrocyte distribution width (RBC) [Ratio] 12.0 % Normal 11.6-14.6 [facility] Comment on above: Performed By: #### L 501.5425, L100.0100, L500.2500 #### [facility] [address] [place], [address] Hematocrit (Bld) [Volume fraction] 51.7 % High 37-47 [facility] Comment on above: Performed By: #### L 501.5425, L100.0100, L500.2500 #### [facility] [address] [place], [address] Hemoglobin (Bld) [Mass/Vol] 17.7 g/dL High 12.0-15.0 [facility] Comment on above: Performed By: #### L 501.5425, L100.0100, L500.2500 #### [facility] [address] [place], [address] IG% 0.200 Normal 0.0-0.9 [facility] Comment on above: Result Comment: IG% - Immature Granulocytes (promyelocytes, myelocytes and metamyelocytes) > 1% indicates that a LEFT SHIFT is Present. Performed By: #### L 501.5425, L100.0100, L500.2500 #### [facility] [address] [place], [address] Lymphocytes/100 WBC (Bld) 30.9 % Normal 19-41 [facility] Comment on above: Performed By: #### L 501.5425, L100.0100, L500.2500 #### [facility] [address] [place], [address] MCH (RBC) [Entitic mass] 31.8 pg Normal 27.0-32.0 [facility] Comment on above: Performed By: #### L 501.5425, L100.0100, L500.2500 #### [facility] [address] [place], [address] MCHC (RBC) [Mass/Vol] 34.2 g/dL Normal 32-36 [facility] Comment on above: Performed By: #### L 501.5425, L100.0100, L500.2500 #### [facility] [address] [place], [address] MCV (RBC) [Entitic vol] 92.8 fL Normal 81-99 [facility] Comment on above: Performed By: #### L 501.5425, L100.0100, L500.2500 #### [facility] [address] [place], [address] Monocytes/100 WBC (Bld) 9.8 % Normal 0-10 [facility] Comment on above: Performed By: #### L 501.5425, L100.0100, L500.2500 #### [facility] [address] [place], [address] Neutrophils/100 WBC (Bld) 55.0 % Normal 47-70 [facility] Comment on above: Performed By: #### L 501.5425, L100.0100, L500.2500 #### [facility] [address] [place], [address] Nucleated RBC (Bld) [#/Vol] 0 10*3/uL Normal 0-5 [facility] Comment on above: Performed By: #### L 501.5425, L100.0100, L500.2500 #### [facility] [address] [place], [address] Platelet mean volume (Bld) [Entitic vol] 11.8 fL Normal 6.2-12.0 [facility] Comment on above: Performed By: #### L 501.5425, L100.0100, L500.2500 #### [facility] [address] [place], [address] Platelets (Bld) [#/Vol] 208 10*3/uL Normal 150-450 [facility] Comment on above: Performed By: #### L 501.5425, L100.0100, L500.2500 #### [facility] [address] [place], [address] RBC (Bld) [#/Vol] 5.57 10*6/uL High 4.2-5.4 [facility] Comment on above: Performed By: #### L 501.5425, L100.0100, L500.2500 #### [facility] [address] [place], [address] RDW SD 41.2 fl Normal 35.1-43.9 [facility] Comment on above: Performed By: #### L 501.5425, L100.0100, L500.2500 #### [facility] [address] [place], [address] WBC (Bld) [#/Vol] 6.6 10*3/uL Normal 4.4-11.0 [facility] Comment on above: Performed By: #### L 501.5425, L100.0100, L500.2500 #### [facility] [address] [place], [address] Chest 1 View (Portable)on Chest 1 View (Portable) [facility] [address] [facility] [place] [address] Chest 1 View (Portable) MR#: [id number] Acct: [id number] Name: KATARZYNA VARGAS Rep #: [id number] : 1975 F 49 From: David Domínguez MD PCP: Dr. Darrel Veloz DO Status: REG ER Study: Chest 1 View (Portable) Date of Exam: 09/25/24 Exam# [id number] Ordering Dr: Souleymane Fragoso MD [id number] EXAM: XR CHEST, 1 VIEW CLINICAL INDICATION: chest pain TECHNIQUE: Frontal view of the chest. COMPARISON: XR Chest dated 04/12/2020 FINDINGS: LUNGS AND PLEURAL SPACES: Normal. No consolidation or edema. No pneumothorax. No effusion. HEART: Normal heart size. MEDIASTINUM: No mediastinal or hilar mass. BONES/JOINTS: No acute abnormality. RAD/Chest 1 View (Portable) IMPRESSION: No acute cardiopulmonary abnormality. Electronically Signed: David Domínguez MD at 9:46 EST , CC: Dr. Souleymane Fragoso MD; Dr. Darrel Veloz DO Student Records Specialist: Signed Normal [facility] Emergency Department Summary on 09-25-2024 Emergency Department Summary [facility] Medical Records Department [address] [place] [address] Emergency Department Summary 09/25/24 MR#: [id number] Acct: [id number] Name: KATARZYNA VARGAS Rep #: [id number] : 1975 49 From: Souleymane Fragoso MD PCP: Dr. Darrel Veloz, DO Status:REG ER Location: ED HPI History of Present Illness Chief Complaint: Chest Pain Informant: patient and EMS Narrative Narrative: 49-year-old female sent by EMS from [facility] because of chest discomfort. She states it is gone right now. She states she has been in halfway for about a week, but the symptoms have been coming and going for weeks. She states today it went into her left shoulder and upper arm a little. When it occurs in her chest that is on the left side without radiation usually. Sometimes has some mild dyspnea. Today she states someone at the halfway checked her blood pressure and it was 70/40, she did not feel presyncopal but maybe a little lightheaded, she states this has happened in the past and not necessarily related to her chest discomfort. She states because of these episodes her doctor's office has been trying to contact her to schedule a stress test. She does not have any history of a heart problem. 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 [facility] Medical History Functional dyspepsia Acute embolism and thrombosis of unspecified deep veins of left lower extremity Cognitive communication deficit Arthropathy Bipolar 1 disorder Muscle weakness (generalized) Hepatitis Smoker Asthma IVDU (intravenous drug user) Polysubstance (including opioids) dependence, daily use Opiate dependence Depression Alcohol abuse Home Medications ???Medication ???Instructions ???Recorded ???Last Taken ???Type albuterol sulfate 90 mcg/actuation 2 puff inhalation PRN SOB 05/17/23 Unknown History aerosol inhaler (Ventolin HFA) amitriptyline 10 mg tablet 10 mg PO QHS 05/17/23 Unknown History baclofen 20 mg tablet 60 mg PO DAILY 05/17/23 Unknown History clonazepam 0.5 mg tablet (Klonopin) 0.5 mg PO QHS PRN 05/17/23 Unknown History dantrolene 25 mg capsule 25 mg PO BID 05/17/23 Unknown History duloxetine 30 mg capsule,delayed 30 mg PO BID 05/17/23 Unknown History release famotidine 20 mg tablet 20 mg PO BID 05/17/23 Unknown History fluorometholone 0.1 % eye 1 drp ophthalmic (eye) DAILY 05/17/23 Unknown History drops,suspension gabapentin 400 mg capsule 400 mg PO DAILY 05/17/23 Unknown History gabapentin 800 mg tablet 800 mg PO QHS 05/17/23 Unknown History ibuprofen 800 mg tablet 800 mg PO DAILY PRN pain 05/17/23 Unknown History loratadine 10 mg tablet 10 mg PO DAILY 05/17/23 Unknown History methocarbamol 500 mg tablet 1,000 mg PO TID 05/17/23 Unknown History nystatin 100,000 unit/gram topical 1 applic topical DAILY 05/17/23 Unknown History powder oxybutynin chloride 10 mg 10 mg PO DAILY 05/17/23 Unknown History tablet,extended release 24 hr promethazine 25 mg tablet 25 mg PO Q4H PRN 05/17/23 Unknown History tizanidine 4 mg tablet 8 mg PO QHS 05/17/23 Unknown History oxycodone 5 mg tablet 5 mg PO Q6H PRN pain 3 days #14 12/07/23 Unknown Rx tabs atorvastatin 20 mg tablet 20 mg PO DAILY 01/19/24 Unknown History coenzyme Q10 100 mg capsule 100 mg PO DAILY 01/19/24 Unknown History docusate sodium 100 mg tablet (DOK) 100 mg PO DAILY 01/19/24 Unknown History multivitamin 1 tab PO DAILY 01/19/24 Unknown History pantoprazole 40 mg tablet,delayed 40 mg PO DAILY 01/19/24 Unknown History release cephalexin 500 mg capsule 500 mg PO Q6 #28 CAPSULES 01/24/24 Unknown Rx sulfamethoxazole 800 1 tab PO BID #20 TABLETS 03/12/24 Unknown Rx mg-trimethoprim 160 mg tablet potassium chloride 20 mEq 20 meq PO BID #10 tabs 09/25/24 Unknown Rx tablet,extended release Allergy/AdvReac Type Severity Reaction Status Date / Time hydrocodone bitartrate (From Allergy Itching Verified 09/25/24 08:52 Vicodin) Surgical History Chronic suprapubic catheter History of cholecystectomy Social History household members: none Smoking Status: Current every day smoker tobacco type: cigarettes ROS ROS ED Constitutional Constitutional ED: Denies chills or fever(s) Eyes Eyes: Denies change in vision or diplopia ENT ENT ED: Denies rhinorrhea or sore throat Cardiovascular Cardiovascular: Reports as per HPI, chest pain and radiating jaw, neck or ar (more content not included)... Normal [facility] L501.4020on 09-25-2024 TROPONIN-I HS 13 pg/mL Normal 3.0-54.0 [facility] Comment on above: Result Comment: Plea se Note: New Test Units and Gender Specific Reference Ranges. For more information see Policy Stat Procedure [place] High Sensitivity Troponin (TNIH) and attachments. Performed By: #### L 501.4020 ####[facility] [id number] [place], [address] L501.5425on 09-25-2024 TROPONIN-I HS 14 pg/mL Normal 3.0-54.0 [facility] Comment on above: Order Comment: 1Y Result Comment: Crit ical Result(s) Called at: 09:58:02 09/25/2024 by: Ammy Hamm. Results read back by same. Please Note: New Test Units and Gender Specific Reference Ranges. For more information see Policy Stat Procedure [place] High Sensitivity Troponin (TNIH) and attachments. Performed By: #### L 501.5425, L100.0100, L500.2500 ####[facility] [id number] [place], [address] CBC W/Diff, Automatedon 12-2 Absolute Lymph 1.89 X10 3/uL Normal 0.83-4.51 [facility] Comment on above: Performed By: #### M 100.2200 #### [facility] [address] [place], [address] Absolute Neut 4.0 X10 3/uL Normal 2.0-7.7 [facility] Comment on above: Performed By: #### M 100.2200 #### [facility] [address] [place], [address] Basophils/100 WBC (Bld) 0.9 % Normal 0-1 [facility] Comment on above: Performed By: #### M 100.2200 #### [facility] [address] [place], [address] Eosinophils/100 WBC (Bld) 1.4 % Normal 0-5 [facility] Comment on above: Performed By: #### M 100.2200 #### [facility] [address] [place], [address] Erythrocyte distribution width (RBC) [Ratio] 12.8 % Normal 11.6-14.6 [facility] Comment on above: Performed By: #### M 100.2200 #### [facility] [address] [place], [address] Hematocrit (Bld) [Volume fraction] 46.1 % Normal 37-47 [facility] Comment on above: Performed By: #### M 100.2200 #### [facility] [address] [place], [address] Hemoglobin (Bld) [Mass/Vol] 15.0 g/dL Normal 12.0-15.0 [facility] Comment on above: Performed By: #### M 100.2200 #### [facility] [address] [place], [address] IG% 0.200 Normal 0.0-0.9 [facility] Comment on above: Result Comment: IG% - Immature Granulocytes (promyelocytes, myelocytes and metamyelocytes) > 1% indicates that a LEFT SHIFT is Present. Performed By: #### M 100.2200 #### [facility] [address] [place], [address] Lymphocytes/100 WBC (Bld) 28.8 % Normal 19-41 [facility] Comment on above: Performed By: #### M 100.2200 #### [facility] [address] [place], [address] MCH (RBC) [Entitic mass] 31.6 pg Normal 27.0-32.0 [facility] Comment on above: Performed By: #### M 100.2200 #### [facility] [address] [place], [address] MCHC (RBC) [Mass/Vol] 32.5 g/dL Normal 32-36 [facility] Comment on above: Performed By: #### M 100.2200 #### [facility] [address] [place], [address] MCV (RBC) [Entitic vol] 97.3 fL Normal 81-99 [facility] Comment on above: Performed By: #### M 100.2200 #### [facility] [address] [place], [address] Monocytes/100 WBC (Bld) 8.1 % Normal 0-10 [facility] Comment on above: Performed By: #### M 100.2200 #### [facility] [address] [place], [address] Neutrophils/100 WBC (Bld) 60.6 % Normal 47-70 [facility] Comment on above: Performed By: #### M 100.2200 #### [facility] [address] [place], [address] Nucleated RBC (Bld) [#/Vol] 0 10*3/uL Normal 0-5 [facility] Comment on above: Performed By: #### M 100.2200 #### [facility] [address] [place], [address] Platelet mean volume (Bld) [Entitic vol] 10.9 fL Normal 6.2-12.0 [facility] Comment on above: Performed By: #### M 100.2200 #### [facility] [address] [place], [address] Platelets (Bld) [#/Vol] 222 10*3/uL Normal 150-450 [facility] Comment on above: Performed By: #### M 100.2200 #### [facility] [address] [place], [address] RBC (Bld) [#/Vol] 4.74 10*6/uL Normal 4.2-5.4 [facility] Comment on above: Performed By: #### M 100.2200 #### [facility] [address] [place], [address] RDW SD 45.7 fl High 35.1-43.9 [facility] Comment on above: Performed By: #### M 100.2200 #### [facility] [address] [place], [address] WBC (Bld) [#/Vol] 6.6 10*3/uL Normal 4.4-11.0 [facility] Comment on above: Performed By: #### M 100.2200 #### [facility] [address] [place], [address] Comprehensive Metabolic Prof [facility] 09-11-2024 Albumin [Mass/Vol] 3.8 g/dL Normal 3.2-5.0 [facility] Comment on above: Performed By: #### M 100.2200 #### [facility] [address] [place], [address] Albumin/Globulin [Mass ratio] 1.0 {ratio} Normal 0.9-2.4 [facility] Comment on above: Performed By: #### M 100.2200 #### [facility] [address] [place], [address] ALK P 115 U/L Normal 45-117 [facility] Comment on above: Performed By: #### M 100.2200 #### [facility] [address] [place], [address] ALT [Catalytic activity/Vol] 69 U/L High 13-56 [facility] Comment on above: Performed By: #### M 100.2200 #### [facility] [address] [place], [address] AST [Catalytic activity/Vol] 27 U/L Normal 15-37 [facility] Comment on above: Performed By: #### M 100.2200 #### [facility] [address] [place], [address] Bilirubin [Mass/Vol] 0.80 mg/dL Normal 0.20-1.00 [facility] Comment on above: Result Comment: For patients on eltrombopag therapy, use of Dimension [place] TBIL is not recommended. Performed By: #### M 100.2200 #### [facility] [address] [place], [address] BUN/CRE 12.7 RATIO Normal 10-20 [facility] Comment on above: Performed By: #### M 100.2200 #### [facility] [address] [place], [address] CA,Total 9.3 mg/dL Normal 8.5-10.1 [facility] Comment on above: Performed By: #### M 100.2200 #### [facility] [address] [place], [address] Chloride [Moles/Vol] 102 mmol/L Normal 98-107 [facility] Comment on above: Performed By: #### M 100.2200 #### [facility] [address] [place], [address] CO2 [Moles/Vol] 30.0 mmol/L Normal 21.0-32.0 [facility] Comment on above: Performed By: #### M 100.2200 #### [facility] [address] [place], [address] Creatinine [Mass/Vol] 0.95 mg/dL Normal 0.55-1.02 [facility] Comment on above: Result Comment: The validity of the calculated GFR GFRAA in patients over 70 years has not been determined. Clinical correlation is essential. Performed By: #### M 100.2200 #### [facility] [address] [place], [address] EST GFR - AA 81 mL/min Normal >60 [facility] Comment on above: Result Comment: Afri can Vietnamese GFR Calc Performed By: #### M 100.2200 #### [facility] [address] [place], [address] GAP 5 Normal 5-15 [facility] Comment on above: Performed By: #### M 100.2200 #### [facility] [address] [place], [address] GFR/1.73 sq M.predicted among non-blacks MDRD (S/P/Bld) [Vol rate/Area] 67 mL/min/{1.73_m2} Normal >60 [facility] Comment on above: Result Comment: Non- GFR Calc Performed By: #### M 100.2200 #### [facility] [address] [place], [address] Globulin (S) [Mass/Vol] 4.0 g/dL Normal 2.2-4.2 [facility] Comment on above: Performed By: #### M 100.2200 #### [facility] [address] [place], [address] Glucose [Mass/Vol] 84 mg/dL Normal 74-106 [facility] Comment on above: Performed By: #### M 100.2200 #### [facility] [address] [place], [address] Potassium [Moles/Vol] 4.2 mmol/L Normal 3.5-5.1 [facility] Comment on above: Performed By: #### M 100.2200 #### [facility] [address] [place], [address] Sodium [Moles/Vol] 137 mmol/L Normal 136-145 [facility] Comment on above: Performed By: #### M 100.2200 #### [facility] [address] [place], [address] T PROT 7.8 g/dL Normal 6.4-8.2 [facility] Comment on above: Performed By: #### M 100.2200 #### [facility] [address] [place], [address] Urea nitrogen [Mass/Vol] 12 mg/dL Normal 7-18 [facility] Comment on above: Performed By: #### M 100.2200 #### [facility] [address] [place], [address] Thyroid Stim Hormone (TSH)on 09-11-2024 TSH 0.989 uIU/mL Normal 0.358-3.740 [facility] Comment on above: Performed By: #### M 100.2200 #### [facility] [address] [place], [address] CNNURSEon 08-25-2024 CNNURSE Nurse Visit (UROLWS) -------- KATARZYNA VARGAS ([id number]) 1975 F [facility] Date Time Provider Department 08/25/24 2:40 PM NURSE UROL [facility] UROLWS During your visit today, we recorded the following information about you: Bambi Thomas LPN 08/25/2024 3:12 PM Signed Verified name and date of . CC Supra pubic catheter in Place HPI: Katarzyna Vargas is a 49 year old female. The patient is here now for a supra pubic catheter change with diagnosis of atonic neurogenic bladder. Procedure: Performed a catheter change. Removed fluid from balloon in the schmitt. The indwelling supra pubic schmitt size 24 Fr was removed with catheter tip intact without difficulty. Inserted [address] catheter using aseptic technique. Approximately 30 mL amount of light yellow urine noted with sediment throughout. Irrigated with 60 mL 0.9% sodium chloride without difficulties. Very large amount of clear yellow urine return noted with sediment noted throughout. Bulb inflated with 20 mLs prefilled syringe- sterile water. Covered with t-sponge. Patient does not want secured with statlock. The patient tolerated the procedure well. Assessment/Plan: Successful catheter change. Return for catheter changes as planned. Bambi Thomas LPN Allergies As of Date: 08/25/2024 Noted Allergy Reaction ULTRAM (TRAMADOL HCL) 09/21/2005 1 - Mental Status Change Comments: SEIZURE VICODIN (HYDROCODONE-ACETAMINOPH E*09/11/2005 11 - Vomiting Date Reviewed: 08/25/2024 Reviewed by: Bambi Thomas LPN - Fully Assessed Reason for Visit: Nurse Visit [792] SPT Tube change [Other] Primary Visit Diagnosis:Neurogenic bladder [N31.9] Prescriptions as of 08/25/2024 - diazePAM (VALIUM) 5 mg tablet Take 5 mg by mouth at bedtime as needed. - oxybutynin ER (DITROPAN XL) 10 mg 24 hr tablet Take 1 tablet by mouth once daily. For bladder spasms - Drainage Bag 2,000 mL misc 1 Bag every other week. - Non-Adherent Bandage (EXCILON DRAIN) 4 X 4 spge Apply 1 application to affected area once daily. - gabapentin (NEURONTIN) 800 mg tablet Take 800 mg by mouth daily at bedtime. - acetaminophen (TYLENOL) 650 mg suppository 650 mg by RECTAL route every 4 hours as needed for fever (specify) or pain. - albuterol HFA (PROVENTIL HFA, VENTOLIN HFA) 90 mcg/actuation inhaler Inhale 2 Puffs as instructed every 4 hours as needed for wheezing/shortness of breath. - polyvinyl alcohol/povidone (ARTIFICIAL TEARS OPHTHALMIC) Use in eyes as needed. - cranberry fruit (CRANBERRY) 450 mg tab Take 450 mg by mouth once daily. - docusate sodium (COLACE) 100 mg capsule Take 100 mg by mouth twice daily. - glucagon 1 mg/mL injection Inject 1 mg intramuscularly as needed (for symptomatic hypoglycemia). - dextrose (GLUCOSE GEL ORAL) Take by mouth as needed (for Hypoglycemic episode). - ibuprofen (MOTRIN) 800 mg tablet Take 800 mg by mouth every 8 hours as needed for pain. - furosemide (LASIX) 20 mg tablet Take 20 mg by mouth once daily. For edema - amitriptyline (ELAVIL) 10 mg tablet Take 1 tablet by mouth daily at bedtime. - tiZANidine (ZANAFLEX) 4 mg tablet Take 2 tablets by mouth daily at bedtime. - dantrolene (DANTRIUM) 25 mg capsule Take 1 capsule by mouth twice daily. - clonazePAM (KLONOPIN) 0.5 mg tablet Take 0.5mg Klonopin QHS PRN - baclofen (LIORESAL) 20 mg tablet Take 1 tablet by mouth three times a day and 2 tablets by mouth at bedtime. - gabapentin (NEURONTIN) 400 mg capsule Take 1 capsule by mouth three times a day and 2 capsules by mouth at bedtime. - acetaminophen (TYLENOL) 325 mg tablet Take 1-2 tablets by mouth every 6 hours as needed for pain or fever (specify). - bisacodyl (DULCOLAX, BISACODYL,) 10 mg supp 1 Suppository by RECTAL route once daily as needed for constipation. - calcium citrate-vitamin D3 (CALCIUM CITRATE + D) 315 mg-5 mcg (200 unit) tab Take 1 tablet by mouth twice daily with meals. - DULoxetine (DRIZALMA SPRINKLE) 30 mg capsule, delayed release sprinkle Take 1 capsule (30 mg) by mouth twice daily. - famotidine (PEPCID) 20 mg tablet Take 1 tablet by mouth twice daily. - sodium phosphate-sodium bisphosphate (FLEET ENEMA) enema 133 mL by RECTAL route once daily as needed for constipation. - fluticasone (FLONASE ALLERGY RELIEF) 50 mcg/actuation nasal spray Use 2 Sprays in each nostril once daily. - guaiFENesin (ROBITUSSIN) 100 mg/5 mL syrup Take 10 mL by mouth every 4 hours as needed for cough. - loperamide HCl (IMODIUM A-D) 2 mg tab Take 1 tablet by mouth as needed (diarrhea). - ipratropium-albuterol (DUONEB) 0.5 mg-3 mg(2.5 mg base)/3 mL nebu Inhale 3 mL as instructed every 4 hours as needed for wheezing/shortness of breath. - loratadine (CLARITIN) 10 mg tablet Take 1 tablet by mouth once daily. - Melatonin 5 mg cap Take 2 capsules by mouth daily at bedtime. - methocarbamol (ROBAXIN) 500 mg tabl (more content not included)... Normal [facility] 08-25-2024 [facility] Telephone (UROLWS) -------- KATARZYNA VARGAS ([id number]) 1975 F [facility] Date Time Provider Department 08/25/24 RUSH MAXWELL During your visit today, we recorded the following information about you: Bambi Thomas LPN 08/25/2024 2:52 PM Signed Patient in for SPT tube change. She is asking if there is a medication that she can take along with the Ditropan to help with bladder spasms? She does have concerns about constipation which is ongoing. Patient drinks 192 mL of water daily, sometimes more. Please review and advise. SILVA Tian Brandon, PA-C 08/25/2024 6:03 PM Signed Increase to 15 [facility] SABINE Ray, MOORALIA Kimberly, LPN 08/26/2024 10:12 AM Signed Called patient. No answer- left message that medication increased. SILVA Tian Kimberly, LPN 08/28/2024 11:27 AM Signed Called patient. Verified name and date of . Patient notified- verbalizes understanding. SILVA Tian Jessica, LPN 08/31/2024 1:14 PM Signed Nurse called in from [facility] where this patient is residing and they need the Ditropan Rx sent to their [place] pharmacy at [phone]. SILVA Cook Laurie, MA 08/31/2024 1:27 PM Signed Addended by: YESSY MARES on: 08/31/2024 01:27 PM Modules accepted: Rush German PA-C 08/31/2024 4:27 PM Signed Addended by: RUSH MAXWELL on: 08/31/2024 04:27 PM Modules accepted: Yessy Friend MA 09/01/2024 4:04 PM Signed The following approved medication requests have been transmitted electronically. Requested Prescriptions Signed Prescriptions Disp Refills oxybutynin ER (DITROPAN XL) 15 mg 24 hr Extended Rel Tab 90 tablet 3 Sig: Take 1 tablet by mouth once daily. Authorizing Provider: RUSH MAXWELL MA Allergies As of Date: 08/25/2024 Noted Allergy Reaction ULTRAM (TRAMADOL HCL) 09/21/2005 1 - Mental Status Change Comments: SEIZURE VICODIN (HYDROCODONE-ACETAMINOPH E*09/11/2005 11 - Vomiting Date Reviewed: 08/25/2024 Reviewed by: Bambi Thomas LPN - Fully Assessed Reason for Visit: Patient Question [8737] Medication Problem [65] Orders [681] Primary Visit Diagnosis:Painful bladder spasm [R30.1] Other Visit Diagnosis:Bladder spasm [N32.89] Order(s):oxybutynin ER (DITROPAN XL) 15 mg 24 hr Extended Rel TabTake 1 tablet by mouth once daily.Disp: 90 tabletRfl: 3 Prescriptions as of 09/01/2024 - oxybutynin ER (DITROPAN XL) 15 mg 24 hr Extended Rel Tab Take 1 tablet by mouth once daily. - diazePAM (VALIUM) 5 mg tablet Take 5 mg by mouth at bedtime as needed. - Drainage Bag 2,000 mL misc 1 Bag every other week. - Non-Adherent Bandage (EXCILON DRAIN) 4 X 4 spge Apply 1 application to affected area once daily. - gabapentin (NEURONTIN) 800 mg tablet Take 800 mg by mouth daily at bedtime. - acetaminophen (TYLENOL) 650 mg suppository 650 mg by RECTAL route every 4 hours as needed for fever (specify) or pain. - albuterol HFA (PROVENTIL HFA, VENTOLIN HFA) 90 mcg/actuation inhaler Inhale 2 Puffs as instructed every 4 hours as needed for wheezing/shortness of breath. - polyvinyl alcohol/povidone (ARTIFICIAL TEARS OPHTHALMIC) Use in eyes as needed. - cranberry fruit (CRANBERRY) 450 mg tab Take 450 mg by mouth once daily. - docusate sodium (COLACE) 100 mg capsule Take 100 mg by mouth twice daily. - glucagon 1 mg/mL injection Inject 1 mg intramuscularly as needed (for symptomatic hypoglycemia). - dextrose (GLUCOSE GEL ORAL) Take by mouth as needed (for Hypoglycemic episode). - ibuprofen (MOTRIN) 800 mg tablet Take 800 mg by mouth every 8 hours as needed for pain. - furosemide (LASIX) 20 mg tablet Take 20 mg by mouth once daily. For edema - amitriptyline (ELAVIL) 10 mg tablet Take 1 tablet by mouth daily at bedtime. - tiZANidine (ZANAFLEX) 4 mg tablet Take 2 tablets by mouth daily at bedtime. - dantrolene (DANTRIUM) 25 mg capsule Take 1 capsule by mouth twice daily. - clonazePAM (KLONOPIN) 0.5 mg tablet Take 0.5mg Klonopin QHS PRN - baclofen (LIORESAL) 20 mg tablet Take 1 tablet by mouth three times a day and 2 tablets by mouth at bedtime. - gabapentin (NEURONTIN) 400 mg capsule Take 1 capsule by mouth three times a day and 2 capsules by mouth at bedtime. - acetaminophen (TYLENOL) 325 mg tablet Take 1-2 tablets by mouth every 6 hours as needed for pain or fever (specify). - bisacodyl (DULCOLAX, BISACODYL,) 10 mg supp 1 Suppository by RECTAL route once daily as needed for constipation. - calcium citrate-vitamin D3 (CALCIUM CITRATE + D) 315 mg-5 mcg (200 unit) tab Take 1 tablet by mouth twice daily with meals. - DULoxetine (DRIZALMA SPRINKLE) 30 mg capsule, delayed release sprinkle Take 1 capsule (30 mg) by mouth twice daily. - famotidine (PEPCID) 20 mg tablet Take 1 tablet by mouth twice daily. - sodium phosphate-s (more content not included)... [facility] -------- VARGASKATARZYNA ELLISON Jo ([id number]) 1975 F UPA Date Time Provider Department 07/28/24 2:40 PM NURSE UROL [facility] UROLWS During your visit today, we recorded the following information about you: Bambi Thomas LPN 07/28/2024 2:36 PM Signed Verified name and date of . CC Supra pubic catheter in Place HPI: Katarzyna Vargas is a 49 year old female. The patient is here now for a supra pubic catheter change with diagnosis of atonic neurogenic bladder. Procedure: Performed a catheter change. Removed fluid from balloon in the schmitt. The indwelling supra pubic schmitt size 24 Fr was removed with catheter tip intact without difficulty. Inserted [address] catheter using aseptic technique. Small amount of light yellow urine noted with sediment throughout. Irrigated with 60 mL 0.9% sodium chloride without difficulties. Very large amount of clear yellow urine return noted with sediment noted throughout. Bulb inflated with 20 mLs prefilled syringe- sterile water. Covered with t-sponge. Patient does not want secured with statlock. The patient tolerated the procedure well. Assessment/Plan: Successful catheter change. Return for catheter changes as planned. Bambi Thomas LPN Allergies As of Date: 07/28/2024 Noted Allergy Reaction ULTRAM (TRAMADOL HCL) 09/21/2005 1 - Mental Status Change Comments: SEIZURE VICODIN (HYDROCODONE-ACETAMINOPH E*09/11/2005 11 - Vomiting Date Reviewed: 06/30/2024 Reviewed by: Bambi Thomas LPN - Fully Assessed Reason for Visit: SPT Tube change [Other] Primary Visit Diagnosis:Neurogenic bladder [N31.9] Prescriptions as of 07/28/2024 - diazePAM (VALIUM) 5 mg tablet Take 5 mg by mouth at bedtime as needed. - oxybutynin ER (DITROPAN XL) 10 mg 24 hr tablet Take 1 tablet by mouth once daily. For bladder spasms - Drainage Bag 2,000 mL misc 1 Bag every other week. - Non-Adherent Bandage (EXCILON DRAIN) 4 X 4 spge Apply 1 application to affected area once daily. - gabapentin (NEURONTIN) 800 mg tablet Take 800 mg by mouth daily at bedtime. - acetaminophen (TYLENOL) 650 mg suppository 650 mg by RECTAL route every 4 hours as needed for fever (specify) or pain. - albuterol HFA (PROVENTIL HFA, VENTOLIN HFA) 90 mcg/actuation inhaler Inhale 2 Puffs as instructed every 4 hours as needed for wheezing/shortness of breath. - polyvinyl alcohol/povidone (ARTIFICIAL TEARS OPHTHALMIC) Use in eyes as needed. - cranberry fruit (CRANBERRY) 450 mg tab Take 450 mg by mouth once daily. - docusate sodium (COLACE) 100 mg capsule Take 100 mg by mouth twice daily. - glucagon 1 mg/mL injection Inject 1 mg intramuscularly as needed (for symptomatic hypoglycemia). - dextrose (GLUCOSE GEL ORAL) Take by mouth as needed (for Hypoglycemic episode). - ibuprofen (MOTRIN) 800 mg tablet Take 800 mg by mouth every 8 hours as needed for pain. - furosemide (LASIX) 20 mg tablet Take 20 mg by mouth once daily. For edema - amitriptyline (ELAVIL) 10 mg tablet Take 1 tablet by mouth daily at bedtime. - tiZANidine (ZANAFLEX) 4 mg tablet Take 2 tablets by mouth daily at bedtime. - dantrolene (DANTRIUM) 25 mg capsule Take 1 capsule by mouth twice daily. - clonazePAM (KLONOPIN) 0.5 mg tablet Take 0.5mg Klonopin QHS PRN - baclofen (LIORESAL) 20 mg tablet Take 1 tablet by mouth three times a day and 2 tablets by mouth at bedtime. - gabapentin (NEURONTIN) 400 mg capsule Take 1 capsule by mouth three times a day and 2 capsules by mouth at bedtime. - acetaminophen (TYLENOL) 325 mg tablet Take 1-2 tablets by mouth every 6 hours as needed for pain or fever (specify). - bisacodyl (DULCOLAX, BISACODYL,) 10 mg supp 1 Suppository by RECTAL route once daily as needed for constipation. - calcium citrate-vitamin D3 (CALCIUM CITRATE + D) 315 mg-5 mcg (200 unit) tab Take 1 tablet by mouth twice daily with meals. - DULoxetine (DRIZALMA SPRINKLE) 30 mg capsule, delayed release sprinkle Take 1 capsule (30 mg) by mouth twice daily. - famotidine (PEPCID) 20 mg tablet Take 1 tablet by mouth twice daily. - sodium phosphate-sodium bisphosphate (FLEET ENEMA) enema 133 mL by RECTAL route once daily as needed for constipation. - fluticasone (FLONASE ALLERGY RELIEF) 50 mcg/actuation nasal spray Use 2 Sprays in each nostril once daily. - guaiFENesin (ROBITUSSIN) 100 mg/5 mL syrup Take 10 mL by mouth every 4 hours as needed for cough. - loperamide HCl (IMODIUM A-D) 2 mg tab Take 1 tablet by mouth as needed (diarrhea). - ipratropium-albuterol (DUONEB) 0.5 mg-3 mg(2.5 mg base)/3 mL nebu Inhale 3 mL as instructed every 4 hours as needed for wheezing/shortness of breath. - loratadine (CLARITIN) 10 mg tablet Take 1 tablet by mouth once daily. - Melatonin 5 mg cap Take 2 capsules by mouth daily at bedtime. - methocarbamol (ROBAXIN) 500 mg tablet Take 2 tablets by mouth three (more content not included)... Normal [facility] Bacteria identified Cx Nom ( U)Ordered By: Roxanne Hyatt on 07-02-2024 Interpretation and review of laboratory results Abnormal [facility] CNPNon 07-02-2024 CNPN Telephone (UROLWS) -------- KATARZYNA VARGAS ([id number]) 1975 F UPA Date Time Provider Department 07/02/24 RUSH MAXWELL UROKRISTAL During your visit today, we recorded the following information about you: Yessy Mares MA 07/02/2024 8:16 AM Signed ----- Message from Rush Maxwell PA-C sent at 07/01/2024 5:40 PM EDT ----- No infection in the urine Rush Maxwell [facility] [place], Yessy Patino MA 07/02/2024 8:19 AM Signed Detailed message left to inform of negative results. Yessy Mares MA Allergies As of Date: 07/02/2024 Noted Allergy Reaction ULTRAM (TRAMADOL HCL) 09/21/2005 1 - Mental Status Change Comments: SEIZURE VICODIN (HYDROCODONE-ACETAMINOPH E*09/11/2005 11 - Vomiting Date Reviewed: 06/30/2024 Reviewed by: Bambi Thomas LPN - Fully Assessed Reason for Visit: Results [95] Prescriptions as of 07/02/2024 - diazePAM (VALIUM) 5 mg tablet Take 5 mg by mouth at bedtime as needed. - oxybutynin ER (DITROPAN XL) 10 mg 24 hr tablet Take 1 tablet by mouth once daily. For bladder spasms - Drainage Bag 2,000 mL misc 1 Bag every other week. - Non-Adherent Bandage (EXCILON DRAIN) 4 X 4 spge Apply 1 application to affected area once daily. - gabapentin (NEURONTIN) 800 mg tablet Take 800 mg by mouth daily at bedtime. - acetaminophen (TYLENOL) 650 mg suppository 650 mg by RECTAL route every 4 hours as needed for fever (specify) or pain. - albuterol HFA (PROVENTIL HFA, VENTOLIN HFA) 90 mcg/actuation inhaler Inhale 2 Puffs as instructed every 4 hours as needed for wheezing/shortness of breath. - polyvinyl alcohol/povidone (ARTIFICIAL TEARS OPHTHALMIC) Use in eyes as needed. - cranberry fruit (CRANBERRY) 450 mg tab Take 450 mg by mouth once daily. - docusate sodium (COLACE) 100 mg capsule Take 100 mg by mouth twice daily. - glucagon 1 mg/mL injection Inject 1 mg intramuscularly as needed (for symptomatic hypoglycemia). - dextrose (GLUCOSE GEL ORAL) Take by mouth as needed (for Hypoglycemic episode). - ibuprofen (MOTRIN) 800 mg tablet Take 800 mg by mouth every 8 hours as needed for pain. - furosemide (LASIX) 20 mg tablet Take 20 mg by mouth once daily. For edema - amitriptyline (ELAVIL) 10 mg tablet Take 1 tablet by mouth daily at bedtime. - tiZANidine (ZANAFLEX) 4 mg tablet Take 2 tablets by mouth daily at bedtime. - dantrolene (DANTRIUM) 25 mg capsule Take 1 capsule by mouth twice daily. - clonazePAM (KLONOPIN) 0.5 mg tablet Take 0.5mg Klonopin QHS PRN - baclofen (LIORESAL) 20 mg tablet Take 1 tablet by mouth three times a day and 2 tablets by mouth at bedtime. - gabapentin (NEURONTIN) 400 mg capsule Take 1 capsule by mouth three times a day and 2 capsules by mouth at bedtime. - acetaminophen (TYLENOL) 325 mg tablet Take 1-2 tablets by mouth every 6 hours as needed for pain or fever (specify). - bisacodyl (DULCOLAX, BISACODYL,) 10 mg supp 1 Suppository by RECTAL route once daily as needed for constipation. - calcium citrate-vitamin D3 (CALCIUM CITRATE + D) 315 mg-5 mcg (200 unit) tab Take 1 tablet by mouth twice daily with meals. - DULoxetine (DRIZALMA SPRINKLE) 30 mg capsule, delayed release sprinkle Take 1 capsule (30 mg) by mouth twice daily. - famotidine (PEPCID) 20 mg tablet Take 1 tablet by mouth twice daily. - sodium phosphate-sodium bisphosphate (FLEET ENEMA) enema 133 mL by RECTAL route once daily as needed for constipation. - fluticasone (FLONASE ALLERGY RELIEF) 50 mcg/actuation nasal spray Use 2 Sprays in each nostril once daily. - guaiFENesin (ROBITUSSIN) 100 mg/5 mL syrup Take 10 mL by mouth every 4 hours as needed for cough. - loperamide HCl (IMODIUM A-D) 2 mg tab Take 1 tablet by mouth as needed (diarrhea). - ipratropium-albuterol (DUONEB) 0.5 mg-3 mg(2.5 mg base)/3 mL nebu Inhale 3 mL as instructed every 4 hours as needed for wheezing/shortness of breath. - loratadine (CLARITIN) 10 mg tablet Take 1 tablet by mouth once daily. - Melatonin 5 mg cap Take 2 capsules by mouth daily at bedtime. - methocarbamol (ROBAXIN) 500 mg tablet Take 2 tablets by mouth three times daily. - magnesium hydroxide (MILK OF MAGNESIA) 400 mg/5 mL suspension Take 30 mL by mouth once daily as needed for constipation. - multivitamin tablet Take 1 tablet by mouth once daily. - aluminum-magnesium hydroxide-simethicone (MAALOX,MYLANTA,MAG-AL PLUS) 200-200-20 mg/5 mL suspension Take 30 mL by mouth every 4 hours as needed (indigestion). - nystatin (MYCOSTATIN) powder Apply 1 application to affected area twice daily. - promethazine (PHENERGAN) 25 mg tablet Take 1 tablet by mouth every 4 hours as needed for nausea/vomiting. - senna (SENNA) 8.6 mg tab Take 2 tablets by mouth once daily. Facility-Administered Medications as of 07/02/2024 - NaCl 0.9% irrigation solution Problem List As Of Date 07/02/2024 Noted Resolved GEN CONVUL EPI W/O MENTN INTRAC (more content not included)... Normal [facility] URINE CULTUREOrdered By: Pedro Luis Hyatt on 07-02-2024 Bacteria identified Cx Nom (U) 50,000-<100,000 CFU/ml Mixed microbiota including 5 different colony types, and no one type predominating. No further workup. Abnormal [facility] Bacteria Ur Culton Bacteria identified Cx Nom (U) ORGANISM ID: 1 50,000-<100,000 CFU/ml Mixed microbiota including 5 different colony types, and no one type predominating. No further workup. Normal [facility] Comment on above: Performed By: #### 6 30-4 ####[facility] LABPETER [id number] YEYORosemarie [place] [id number] [place] CNOVon 06-30-2024 CNOV Office Visit (UROLWS ) -------- KATARZYNA VARGAS ([id number]) 1975 F UPA Date Time Provider Department 06/30/24 3:30 PM RUSH MAXWELL UROLWS During your visit today, we recorded the following information about you: Temperature Pulse Respiration Blood pressure 97 degrees 64/minute 16/minute 108/70 Rush Maxwell PA-C 07/30/2024 10:35 PM Signed Verified name and date of . CC Supra pubic catheter in Place HPI: Katarzyna Vargas is a 49 year old female. The patient is here now for a supra pubic catheter change with diagnosis of atonic neurogenic bladder. Procedure: Performed a catheter change. Removed fluid from balloon in the schmitt. The indwelling supra pubic schmitt size 24 Fr was removed with catheter tip intact without difficulty. Inserted [address] catheter using aseptic technique. Large amount of light yellow urine noted with specks of blood throughout. Patient reports having extra amounts of sediment and blood noted throughout tubing and drainage bag. Irrigated with 60 mL 0.9% sodium chloride without difficulties. Very large amount of clear yellow urine return noted. Bulb inflated with 20 mLs prefilled syringe- sterile water. Covered with t-sponge. Patient does not want secured with statlock. The patient tolerated the procedure well. Assessment/Plan: Successful catheter change. Return for catheter changes as planned. Does have appointment scheduled with provider today. Bambi Thomas LPN Discussed SPT exchanges which have been uneventful and ordered [address] catheters Due to patient concerns of mucous and some small amount of blood and will get urine culture Follow-up monthly SPT exchanges as planned > 1 year Appt w/ [place]. SABINE Maxwell, [place], PAJosefinaC for annual follow-up and refills. Allergies As of Date: 06/30/2024 Noted Allergy Reaction ULTRAM (TRAMADOL HCL) 09/21/2005 1 - Mental Status Change Comments: SEIZURE VICODIN (HYDROCODONE-ACETAMINOPH E*09/11/2005 11 - Vomiting Date Reviewed: 06/30/2024 Reviewed by: Bambi Thomas LPN - Fully Assessed Reason for Visit: Follow Up [171] Neurogenic Bladder [397] Primary Visit Diagnosis:Neurogenic bladder [N31.9] Other Visit Diagnoses:Screening for genitourinary condition [Z13.89] Hematuria, unspecified type [R31.9] Bladder spasm [N32.89] Order(s):SUPRAPUBIC TUBE CHANGE [[id number]] Order #: [id number]: 99 STANDING URINE CULTURE [SQURCUL] Order #: [id number]. #:[id number] oxybutynin ER (DITROPAN XL) 10 mg 24 hr tabletTake 1 tablet by mouth once daily. For bladder spasmsDisp: 90 tabletRfl: 3 Prescriptions as of 07/30/2024 - diazePAM (VALIUM) 5 mg tablet Take 5 mg by mouth at bedtime as needed. - oxybutynin ER (DITROPAN XL) 10 mg 24 hr tablet Take 1 tablet by mouth once daily. For bladder spasms - Drainage Bag 2,000 mL misc 1 Bag every other week. - Non-Adherent Bandage (EXCILON DRAIN) 4 X 4 spge Apply 1 application to affected area once daily. - gabapentin (NEURONTIN) 800 mg tablet Take 800 mg by mouth daily at bedtime. - acetaminophen (TYLENOL) 650 mg suppository 650 mg by RECTAL route every 4 hours as needed for fever (specify) or pain. - albuterol HFA (PROVENTIL HFA, VENTOLIN HFA) 90 mcg/actuation inhaler Inhale 2 Puffs as instructed every 4 hours as needed for wheezing/shortness of breath. - polyvinyl alcohol/povidone (ARTIFICIAL TEARS OPHTHALMIC) Use in eyes as needed. - cranberry fruit (CRANBERRY) 450 mg tab Take 450 mg by mouth once daily. - docusate sodium (COLACE) 100 mg capsule Take 100 mg by mouth twice daily. - glucagon 1 mg/mL injection Inject 1 mg intramuscularly as needed (for symptomatic hypoglycemia). - dextrose (GLUCOSE GEL ORAL) Take by mouth as needed (for Hypoglycemic episode). - ibuprofen (MOTRIN) 800 mg tablet Take 800 mg by mouth every 8 hours as needed for pain. - furosemide (LASIX) 20 mg tablet Take 20 mg by mouth once daily. For edema - amitriptyline (ELAVIL) 10 mg tablet Take 1 tablet by mouth daily at bedtime. - tiZANidine (ZANAFLEX) 4 mg tablet Take 2 tablets by mouth daily at bedtime. - dantrolene (DANTRIUM) 25 mg capsule Take 1 capsule by mouth twice daily. - clonazePAM (KLONOPIN) 0.5 mg tablet Take 0.5mg Klonopin QHS PRN - baclofen (LIORESAL) 20 mg tablet Take 1 tablet by mouth three times a day and 2 tablets by mouth at bedtime. - gabapentin (NEURONTIN) 400 mg capsule Take 1 capsule by mouth three times a day and 2 capsules by mouth at bedtime. - acetaminophen (TYLENOL) 325 mg tablet Take 1-2 tablets by mouth every 6 hours as needed for pain or fever (specify). - bisacodyl (DULCOLAX, BISACODYL,) 10 mg supp 1 Suppository by RECTAL route once daily as needed for constipation. - calcium citrate-vitamin D3 (CALCIUM CITRATE + D) 315 mg-5 mcg (200 unit) tab Take 1 tablet by mouth twice daily with meals. - DULoxetine (DRIZALMA SPRINKLE) 3 (more content not included)... Normal [facility] Inital Evaluation (1) - PTon 05-28-2024 Inital Evaluation (1) - PT [facility] Physical Therapy [facility] [address] [place] [address] [address] [place] [address] / REHABILITATION SERVICES INITIAL EVALUATION MR#: [id number] Acct: [id number] Name: KATARZYNA VARGAS Rep #: [id number] : 1975 49 From: Nick Solomon DPT, OCS, CSCS Referring Dr.: Dr. Darrel Veloz DO Status: RE G RCR Insurance: MEDICAID SELF PAY INSURANCE Patient's Visit Information Visit Information Visit Information: KATARZYNA VARGAS is a 49 year old F referred to Physical Therapy by Dr. Darrel Veloz DO with a diagnosis of Difficulty in walking.. Date of Evaluation: 05/28/24 Physical Therapist: Nick Solomon, DPT, OCS, CSCS Visit Plan Frequency: 2x /Week Duration: 4-6 Weeks Plan: 2x/week for 4-6 to start for. 1. Teach mat and parallel bar based LE and core strength with pics for HEP 2. Work on standing balance with decreasing support 3. Work on wh walker ambulation distance adn progressions to tolerance. Subjective Subjective: I want to strengthen my legs and walk more. Currently walks in room taking 20 30 steps with wh walker or rollator(has bth), Legs then start to feel weird and legs spasms. Broke each leg in the last couple years when legs gave out and she fell with walker. 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 All of it has come back except requires catheter now and control bowels is tough. Has movement in legs and wants to work on losing weight, lost 30# in 4 months with diet. No regular exercises. Sleep is not great due to spasms but that is normal since 2020, on meds for these spasms. has to wait a second upon standing..4-5 per night interrupted. Sleeps on couch lying on back. Uses WC to get around most of time. Gets on couch in apartment. No stairs to climb. Spends day watching TV. Lives alone in assisted living, Dresses self and bathroom self but help to clean up if has accident. Bathes in handicap shower. , Meals are provided but she cooks her own. Currently walk with wh walker at home 4-5x day to couch about 15 feet each day, does not go without walker. Gets on floor 1x/day adn back up with help of couch, no other active exercises, wathces a lot of tv Objective Objective: Powered wheelchair self propelled back to eval room mod I. Sit to stand trasnfer from chair including getting catheter and footholds out of way, I in two tries with UE. Sit edge of wheelchair I with fair trunk strength. hip strength 3+ abd and ext and flexion B, knee flexiona nd ext 3+ L and 4- R, ankle strength 3+ B all directions. AROM WFL, tightness in psoas and gastroc and HS B but funcitonal. Subjectively able to get on and off the floor at home with UE assist at couch. reflexes 0/3 patella adn achilles B. Sensation LE WNL to gross light touch B. coordination at deficit in reciprocal heel tapping. Stand balance without AD I and good with ec and good with head movements. Does not have a great trust of legs. Can march in place slowly and laboriously with one hand on walker but will not try it without. walks 20 feet self limited today with wh walker mod I, short steps and poor weight shift but able, Limited by distrust of LE. Stand to sit Mod I into WC. Balance/Special Test Scores Lower Extremity Functional Score: 28 Goals Goal 1:: I appropriate standing and mat ex for core and LE strength to maximize funciton. Goal Time Frame: 4-6 Weeks Goal 2:: Walk 100 feet with wh walker mod I consistentlya dn cofiednetly Goal Time Frame: 4-6 Weeks Goal 3:: stand and march I without hesitation 10 steps safely No AD Goal Time Frame: 4-6 Weeks Rehabilitation Potential Physical Therapy Diagnosis: weakness and distrust of LE limiting mobility at home Anticipated Interventions Patient/Client Instruction: Educate patient on: Condition and Plan of Care For the Purpose of:: To improve nutrient delivery to tissue, To increase tolerance to activity/condition/posit ion and To improve gait and locomotor functions Therapeutic Exercise to Include: Strength training and Gait and locomotor training For the Purpose of:: To decrease pain, To increase ROM, To improve nutrient delivery to tissue and To improve gait and locomotor functions Text: Thank you for the opportunity to evaluate your patient. For Medicare and Medicare HMO plans, please review the plan of care and approve it. It will need to be FAXED BACK to us at [phone] for Medicare purposes. For Medicare only, by signing this I certify the plan of care. Please let me know if there are questions or concerns regarding this plan of care. Physician Signature: Date: ____ 05/28/24 1614 CC: Dr. Darrel Veloz DO LULÚ Signed Normal [facility] CNNURSEon 05-26-2024 CNNURSE Nurse Visit (UROLWS) -------- KATARZYNA VARGAS ([id number]) 1975 F U[place] Date Time Provider Department 05/26/24 2:40 PM [facility]URSE [facility]OL [facility] During your visit today, we recorded the following information about you: Bambi Thomas LPN 05/26/2024 3:11 PM Signed Verified name and date of . CC Supra pubic catheter in Place HPI: Katarzyna Vargas is a 49 year old female. The patient is here now for a supra pubic catheter change with diagnosis of atonic neurogenic bladder. Procedure: Performed a catheter change. Removed fluid from balloon in the schmitt. The indwelling supra pubic schmitt size 24 Fr was removed with catheter tip intact without difficulty. Spoke with supplies personnel and the 24 FR have not arrived due to being on back order. Spoke with provider, Rush Maxwell PA-C and it is okay to use a 22 FR 3-way that we have. Patient aware of use of 22 FR 3-way and reviewed with her how to irrigate and supplies sent home with her. She did validate understanding on how to irrigate if she needs to. Inserted [address] catheter using aseptic technique. Large amount of light yellow urine noted. Irrigated with 60 mL sterile water without difficulties. Very large amount of clear yellow urine return noted. Bulb inflated with 20 mLs prefilled syringe- sterile water. Patient states she does not want the full 30 mL balloon filled as it does cause discomfort. Covered with t-sponge. Patient does not want secured with statlock. The patient tolerated the procedure well. Assessment/Plan: Successful catheter change. Return for catheter changes as planned. Does have appointment scheduled with provider for next visit. Bambi Thomas LPN Allergies As of Date: 05/26/2024 Noted Allergy Reaction ULTRAM (TRAMADOL HCL) 09/21/2005 1 - Mental Status Change Comments: SEIZURE VICODIN (HYDROCODONE-ACETAMINOPH E*09/11/2005 11 - Vomiting Date Reviewed: 10/23/2023 Reviewed by: Sarah Haile RN - Fully Assessed Reason for Visit: Nurse Visit [792] SPT [346] Cmt: SPT change Primary Visit Diagnosis:Neurogenic bladder [N31.9] Prescriptions as of 05/26/2024 - Drainage Bag 2,000 mL misc 1 Bag every other week. - Non-Adherent Bandage (EXCILON DRAIN) 4 X 4 spge Apply 1 application to affected area once daily. - gabapentin (NEURONTIN) 800 mg tablet Take 800 mg by mouth daily at bedtime. - acetaminophen (TYLENOL) 650 mg suppository 650 mg by RECTAL route every 4 hours as needed for fever (specify) or pain. - albuterol HFA (PROVENTIL HFA, VENTOLIN HFA) 90 mcg/actuation inhaler Inhale 2 Puffs as instructed every 4 hours as needed for wheezing/shortness of breath. - polyvinyl alcohol/povidone (ARTIFICIAL TEARS OPHTHALMIC) Use in eyes as needed. - cranberry fruit (CRANBERRY) 450 mg tab Take 450 mg by mouth once daily. - docusate sodium (COLACE) 100 mg capsule Take 100 mg by mouth twice daily. - glucagon 1 mg/mL injection Inject 1 mg intramuscularly as needed (for symptomatic hypoglycemia). - dextrose (GLUCOSE GEL ORAL) Take by mouth as needed (for Hypoglycemic episode). - ibuprofen (MOTRIN) 800 mg tablet Take 800 mg by mouth every 8 hours as needed for pain. - furosemide (LASIX) 20 mg tablet Take 20 mg by mouth once daily. For edema - oxybutynin ER (DITROPAN XL) 10 mg 24 hr tablet Take 10 mg by mouth once daily. For bladder spasms - amitriptyline (ELAVIL) 10 mg tablet Take 1 tablet by mouth daily at bedtime. - tiZANidine (ZANAFLEX) 4 mg tablet Take 2 tablets by mouth daily at bedtime. - dantrolene (DANTRIUM) 25 mg capsule Take 1 capsule by mouth twice daily. - clonazePAM (KLONOPIN) 0.5 mg tablet Take 0.5mg Klonopin QHS PRN - baclofen (LIORESAL) 20 mg tablet Take 1 tablet by mouth three times a day and 2 tablets by mouth at bedtime. - gabapentin (NEURONTIN) 400 mg capsule Take 1 capsule by mouth three times a day and 2 capsules by mouth at bedtime. - acetaminophen (TYLENOL) 325 mg tablet Take 1-2 tablets by mouth every 6 hours as needed for pain or fever (specify). - bisacodyl (DULCOLAX, BISACODYL,) 10 mg supp 1 Suppository by RECTAL route once daily as needed for constipation. - calcium citrate-vitamin D3 (CALCIUM CITRATE + D) 315 mg-5 mcg (200 unit) tab Take 1 tablet by mouth twice daily with meals. - DULoxetine (DRIZALMA SPRINKLE) 30 mg capsule, delayed release sprinkle Take 1 capsule (30 mg) by mouth twice daily. - famotidine (PEPCID) 20 mg tablet Take 1 tablet by mouth twice daily. - sodium phosphate-sodium bisphosphate (FLEET ENEMA) enema 133 mL by RECTAL route once daily as needed for constipation. - fluticasone (FLONASE ALLERGY RELIEF) 50 mcg/actuation nasal spray Use 2 Sprays in each nostril once daily. - guaiFENesin (ROBITUSSIN) 100 mg/5 mL syrup Take 10 mL by mouth every 4 hours as needed for cough. - loperamide HCl (IMODIUM A-D) 2 mg tab Take 1 tablet by mo (more content not included)... Normal [facility] 04-07-2024 CNNURSE Nurse Visit (UROLWS) -------- KATARZYNA VARGAS ([id number]) 1975 F [facility] Date Time Provider Department 04/07/24 3:40 PM NURSE UROL [facility] UROLWS During your visit today, we recorded the following information about you: Bambi Thomas LPN 04/07/2024 4:52 PM Signed Verified name and date of . CC Supra pubic catheter in Place HPI: Katarzyna Vargas is a 49 year old female. The patient is here now for a supra pubic catheter change with diagnosis of atonic neurogenic bladder. Procedure: Performed a catheter change. Removed fluid from balloon in the schmitt. The indwelling supra pubic schmitt size 24 Fr was removed with catheter tip intact without difficulty. Inserted [address] catheter using aseptic technique. Large amount of light yellow urine noted. Irrigated with 60 mL sterile water without difficulties. Very large amount of clear yellow urine return noted. Bulb inflated with 20 mLs prefilled syringe- sterile water. Patient states she does not want the full 30 mL balloon filled as it does cause discomfort. Covered with t-sponge. Encouraged use of t-sponge due to skin folds moist and rubbing around supra pubic catheter. Patient does not want secured with statlock. Verbalizes that she drinks a lot of water and is doing well with catheter size. The patient tolerated the procedure well. Assessment/Plan: Successful catheter change. Return for catheter changes as planned. Bambi Thomas LPN Allergies As of Date: 04/07/2024 Noted Allergy Reaction ULTRAM (TRAMADOL HCL) 09/21/2005 1 - Mental Status Change Comments: SEIZURE VICODIN (HYDROCODONE-ACETAMINOPH E*09/11/2005 11 - Vomiting Date Reviewed: 10/23/2023 Reviewed by: Sarah Haile RN - Fully Assessed Reason for Visit: Nurse Visit [792] SPT Tube change [Other] Neurogenic Bladder [397] Primary Visit Diagnosis:Neurogenic bladder [N31.9] Prescriptions as of 04/07/2024 - Drainage Bag 2,000 mL misc 1 Bag every other week. - Non-Adherent Bandage (EXCILON DRAIN) 4 X 4 spge Apply 1 application to affected area once daily. - gabapentin (NEURONTIN) 800 mg tablet Take 800 mg by mouth daily at bedtime. - acetaminophen (TYLENOL) 650 mg suppository 650 mg by RECTAL route every 4 hours as needed for fever (specify) or pain. - albuterol HFA (PROVENTIL HFA, VENTOLIN HFA) 90 mcg/actuation inhaler Inhale 2 Puffs as instructed every 4 hours as needed for wheezing/shortness of breath. - polyvinyl alcohol/povidone (ARTIFICIAL TEARS OPHTHALMIC) Use in eyes as needed. - cranberry fruit (CRANBERRY) 450 mg tab Take 450 mg by mouth once daily. - docusate sodium (COLACE) 100 mg capsule Take 100 mg by mouth twice daily. - glucagon 1 mg/mL injection Inject 1 mg intramuscularly as needed (for symptomatic hypoglycemia). - dextrose (GLUCOSE GEL ORAL) Take by mouth as needed (for Hypoglycemic episode). - ibuprofen (MOTRIN) 800 mg tablet Take 800 mg by mouth every 8 hours as needed for pain. - furosemide (LASIX) 20 mg tablet Take 20 mg by mouth once daily. For edema - oxybutynin ER (DITROPAN XL) 10 mg 24 hr tablet Take 10 mg by mouth once daily. For bladder spasms - amitriptyline (ELAVIL) 10 mg tablet Take 1 tablet by mouth daily at bedtime. - tiZANidine (ZANAFLEX) 4 mg tablet Take 2 tablets by mouth daily at bedtime. - dantrolene (DANTRIUM) 25 mg capsule Take 1 capsule by mouth twice daily. - clonazePAM (KLONOPIN) 0.5 mg tablet Take 0.5mg Klonopin QHS PRN - baclofen (LIORESAL) 20 mg tablet Take 1 tablet by mouth three times a day and 2 tablets by mouth at bedtime. - gabapentin (NEURONTIN) 400 mg capsule Take 1 capsule by mouth three times a day and 2 capsules by mouth at bedtime. - acetaminophen (TYLENOL) 325 mg tablet Take 1-2 tablets by mouth every 6 hours as needed for pain or fever (specify). - bisacodyl (DULCOLAX, BISACODYL,) 10 mg supp 1 Suppository by RECTAL route once daily as needed for constipation. - calcium citrate-vitamin D3 (CALCIUM CITRATE + D) 315 mg-5 mcg (200 unit) tab Take 1 tablet by mouth twice daily with meals. - DULoxetine (DRIZALMA SPRINKLE) 30 mg capsule, delayed release sprinkle Take 1 capsule (30 mg) by mouth twice daily. - famotidine (PEPCID) 20 mg tablet Take 1 tablet by mouth twice daily. - sodium phosphate-sodium bisphosphate (FLEET ENEMA) enema 133 mL by RECTAL route once daily as needed for constipation. - fluticasone (FLONASE ALLERGY RELIEF) 50 mcg/actuation nasal spray Use 2 Sprays in each nostril once daily. - guaiFENesin (ROBITUSSIN) 100 mg/5 mL syrup Take 10 mL by mouth every 4 hours as needed for cough. - loperamide HCl (IMODIUM A-D) 2 mg tab Take 1 tablet by mouth as needed (diarrhea). - ipratropium-albuterol (DUONEB) 0.5 mg-3 mg(2.5 mg base)/3 mL nebu Inhale 3 mL as instructed every 4 hours as needed for wheezing/shortness of breath. - loratadine (CLARITIN) 10 mg tablet T (more content not included)... Normal [facility] Absolute lymphocyte countOrd ered By: Bradlykiera Eden on 01-19-2024 Lymphocytes Auto (Unsp spec) [#/Vol] 2.12 10*3/uL 0.83-4.51 [facility] Automated lymphocyte count a s percentage of total leukocytesOrdered By: Bradlykiera Eden on 01-19-2024 Lymphocytes/100 WBC Auto (Unsp spec) 30.9 % 19-41 [facility] Basophil percentageOrdered B y: [facility] 01-[facility] Basophil percentage 50-100 SEEN /hpf 0-5 [facility] Basophils/100 WBC (Bld) 0.9 % 0-1 [facility] Chloride [Moles/Vol] 101 mmol/L 98-107 [facility] Eosinophils/100 WBC (Bld) 2.2 % 0-5 [facility] Glucose [Mass/Vol] 88 mg/dL 74-106 [facility] Hemoglobin (Bld) [Mass/Vol] 14.3 g/dL 12.0-15.0 [facility] Monocytes/100 WBC (Bld) 7.4 % 0-10 [facility] Neutrophils (Bld) [#/Vol] 4.0 10*3/uL 2.0-7.7 [facility] Neutrophils/100 WBC (Bld) 58.3 % 47-70 [facility] Potassium [Moles/Vol] 3.3 mmol/L 3.5-5.1 [facility] Sodium [Moles/Vol] 138 mmol/L 136-145 [facility] WBC (Bld) [#/Vol] 6.9 10*3/uL 4.4-11.0 [facility] Bilirubin Test strip Ql (U)O rdered By: Bradly Eden on 01-19-2024 Bilirubin Ql (U) Negative Negative [facility] Determination of erythrocyte mean corpuscular volume (MCV)Ordered By: Bradlykiera Eden on 01-19-2024 MCV (RBC) [Entitic vol] 96.0 fL 81-99 [facility] Erythrocyte distribution wid th ratioOrdered By: [facility] on 01-19-2024 Erythrocyte distribution width (RBC) [Ratio] 12.3 % 11.6-14.6 [facility] Erythrocyte distribution wid th standard deviationOrdered By: [facility] on 01-19-2024 Erythrocyte distribution width (RBC) [Entitic vol] 43.5 fL 35.1-43.9 [facility] Hematocrit Auto (Bld) [Volum e fraction]Ordered By: Bradlykiera Eden on 01-19-2024 Hematocrit (Bld) [Volume fraction] 42.8 % 37-47 [facility] Immature granulocytes/100 WB C Auto (Bld)Ordered By: [facility] Slick on 01-19-2024 Immature granulocytes/100 WBC (Bld) 0.300 % 0.0-0.9 [facility] Comment on above: IG% - Immature Granu locytes (promyelocytes, myelocytes and metamyelocytes) > 1% indicates that a LEFT SHIFT is Present. Ketones Test strip Ql (U)Ord ered By: Bradly Eden on 01-19-2024 Ketones Ql (U) Negative Negative [facility] Laboratory - Chemistry and C hemistry - challengeOrdered By: Bradlykiera Eden on 01-19-2024 CO2 [Moles/Vol] 34.0 mmol/L 21.0-32.0 [facility] Urea nitrogen/Creatinine [Mass ratio] 17.9 mg/mg 10-20 [facility] Laboratory - Hematology and Cell countsOrdered By: Bradlykiera Eden on 01-19-2024 MCH (RBC) [Entitic mass] 32.1 pg 27.0-32.0 [facility] MCHC (RBC) [Mass/Vol] 33.4 g/dL 32-36 [facility] Nucleated RBC/100 WBC (Bld) [Ratio] 0 % 0-5 [facility] Platelet mean volume (Bld) [Entitic vol] 10.4 fL 6.2-12.0 [facility] Platelets (Bld) [#/Vol] 225 10*3/uL 150-450 [facility] Mucus LM Ql (Urine sed)Order ed By: Bradly Eden on 01-19-2024 Mucus Ql (Urine sed) 0 SEEN /hpf [facility] Nitrite Test strip Ql (U)Ord ered By: Bradly Eden on 01-19-2024 Nitrite Ql (U) Negative Negative [facility] No Panel InformationOrdered By: Bradly Eden on 01-19-2024 Urine RBC 0-5 SEEN /hpf 0-5 [facility] Estimated GFR (MDRD) Amer 86 mL/min >60 [facility] Comment on above: GFR Calc Estimated GFR (MDRD) Non-Af Amer 71 mL/min >60 [facility] Comment on above: Non- GFR Calc Protein Test strip Ql (U)Ord ered By: Bradly Eden on 01-19-2024 Protein Ql (U) 100 mg/dl Negative [facility] RBC Auto (Bld) [#/Vol]Ordere d By: Bradly Eden on 01-19-2024 RBC (Bld) [#/Vol] 4.46 10*6/uL 4.2-5.4 [facility] Serum or plasma calcium heena urement (mass/volume)Ordered By: Bradly Eden on 01-19-2024 Calcium [Mass/Vol] 9.0 mg/dL 8.5-10.1 [facility] Serum or plasma creatinine m easurement (mass/volume)Ordered By: Bradly Eden on 01-19-2024 Creatinine [Mass/Vol] 0.90 mg/dL 0.55-1.02 [facility] Comment on above: The validity of the calculated GFR & GFRAA in patients over 70 years has not been determined. Clinical correlation is essential. Serum or plasma urea nitroge n measurement (mass/volume)Ordered By: Bradly Eden on 01-19-2024 Urea nitrogen [Mass/Vol] 16 mg/dL 7-18 [facility] Squamous epithelial cells de tection in urine sediment by light microscopyOrdered By: Bradly Eden on 01-19-2024 Epithelial cells.squamous LM Ql (Urine sed) 0 SEEN /hpf 5-10 [facility] Thin prep Papanicolaou smear with manual screeningOrdered By: Bradly Eden on 01-19-2024 Thin prep Papanicolaou smear with manual screening 3 5-15 [facility] Transitional cells detection in urine sediment by light microscopyOrdered By: Bradly Eden on 01-19-2024 Transitional cells LM Ql (Urine sed) 0-5 SEEN /hpf 0-5 [facility] Urine blood detectionOrdered By: Bradly Eden on 01-19-2024 RBC Ql (U) 150 /ul Negative [facility] Urine clarityOrdered By: Bradly Eden on 01-19-2024 Clarity (U) Cloudy Clear [facility] Urine color determinationOrd ered By: Bradly Eden on 01-19-2024 Color (U) Yellow Yellow [facility] Urine glucose detectionOrder ed By: Bradly Eden on 01-19-2024 Glucose Ql (U) Normal mg/dl Normal [facility] Urine leukocyte esterase det ection by dipstickOrdered By: Bradly Eden on 01-19-2024 Leukocyte esterase Test strip Ql (U) 500 /ul Negative [facility] Urine pHOrdered By: Bradly qureshi on 01-19-2024 pH (U) 7.0 [pH] 5.0 - 8.0 [facility] Urine sediment bacteria coun t by microscopy (number/high power field)Ordered By: Bradly Eden on 01-19-2024 Bacteria LM.HPF (Urine sed) [#/Area] 3 /[HPF] None Seen [facility] Urine specific gravity measu rementOrdered By: Bradly Eden on 01-19-2024 Specific gravity (U) [Rel density] 1.010 1.002-1.030 [facility] Urine urobilinogen measureme ntOrdered By: Bradly Eden on 01-19-2024 Urobilinogen Ql (U) Normal mg/dl Normal [facility] Basophil percentageOrdered B y: Ruddy Minaya on 11-22-2023 Bilirubin [Mass/Vol] 0.80 mg/dL 0.20-1.00 [facility] Comment on above: For patients on eltr ombopag therapy, use of [place] TBIL is not recommended. Protein [Mass/Vol] 7.5 g/dL 6.4-8.2 [facility] Direct bilirubinOrdered By: Ruddy Minaya on 11-22-2023 Bilirubin.direct [Mass/Vol] 0.13 mg/dL 0.00-0.30 [facility] Laboratory - Chemistry and C hemistry - challengeOrdered By: Ruddy Minaya on 11-22-2023 ALP [Catalytic activity/Vol] 106 U/L 45-117 [facility] ALT [Catalytic activity/Vol] 19 U/L 13-56 [facility] Globulin (S) [Mass/Vol] 4.2 g/dL 2.2-4.2 [facility] No Panel InformationOrdered By: Ruddy Minaya on 11-22-2023 Hepatitis B Surface Antigen Non-Reactive Nonreactive [facility] Miscellaneous Test See comment [facility] Comment on above: TEST RESULTS LIMITSH BV Quant PCR Rfx to GenotypeHBV IU/mL HBV DNA not detected IU/mLlog10 HBV as IU/mLUnable to calculate result since non-numeric result obtained for component test.Test Information: The reportable range for this assay is 10 IU/mL to 1 billion IU/mL.HBV Genotype Not indicated TESTING PERFORMED AT [facility]. ORIGINAL REPORT ON FILE IN LAB CONTAINS ADDITIONAL TEST SITE INFORMATION. Tumor Marker Alpha Fetoprotein 2.4 ng/mL 0.0-6.4 [facility] Comment on above: [facility] El ectrochemiluminescence Immunoassay(ECLIA)Values obtained with different assay methods or kits cannotbe used interchangeably. Results cannot be interpreted asabsolute evidence of the presence or absence of malignantdisease.This test is not interpretable in females.Performed at: [facility] [id number] [place], [place] [id number] Director: Ruddy No PhD, Phone: [phone] Serum hepatitis B virus surf orestes antibody IgG detectionOrdered By: Ruddy Minaya on 11-22-2023 HBV surface IgG Ql (S) Reactive [facility] Comment on above: Non Reactive: Incons istent with immunity less than <10 mIU/mL Reactive: Consistent with immunity greater than or equal to 10 mIU/mL Thin prep Papanicolaou smear with manual screeningOrdered By: Ruddy Minaya on 11-22-2023 Thin prep Papanicolaou smear with manual screening 3.3 g/dL 3.2-5.0 [facility] Thin prep Papanicolaou smear with manual screening 17 U/L 15-37 [facility] Absolute lymphocyte countOrd ered By: Darrel Veloz on 11-18-2023 Lymphocytes Auto (Unsp spec) [#/Vol] 1.97 10*3/uL 0.83-4.51 [facility] Automated lymphocyte count a s percentage of total leukocytesOrdered By: Darrel Veloz on 11-18-2023 Lymphocytes/100 WBC Auto (Unsp spec) 23.5 % 19-41 [facility] Basophil percentageOrdered B y: Darrel Veloz on 11-18-[address] [facility] Comment on above: Test not performed Basophils/100 WBC (Bld) 0.7 % 0-1 [facility] Bilirubin [Mass/Vol] 0.70 mg/dL 0.20-1.00 [facility] Comment on above: For patients on eltr ombopag therapy, use of [place] TBIL is not recommended. Chloride [Moles/Vol] 104 mmol/L 98-107 [facility] Cholesterol [Mass/Vol] 157 mg/dL <200 [facility] Comment on above: <200 mg/dL Desirable 200-240 mg/dL Borderline >240 mg/dL High Risk Eosinophils/100 WBC (Bld) 2.0 % 0-5 [facility] Glucose [Mass/Vol] 90 mg/dL 74-106 [facility] Hemoglobin (Bld) [Mass/Vol] 13.8 g/dL 12.0-15.0 [facility] Monocytes/100 WBC (Bld) 7.0 % 0-10 [facility] Neutrophils (Bld) [#/Vol] 5.5 10*3/uL 2.0-7.7 [facility] Neutrophils/100 WBC (Bld) 66.2 % 47-70 [facility] Potassium [Moles/Vol] 3.1 mmol/L 3.5-5.1 [facility] Protein [Mass/Vol] 7.8 g/dL 6.4-8.2 [facility] Sodium [Moles/Vol] 138 mmol/L 136-145 [facility] Triglyceride [Mass/Vol] 147 mg/dL <199 [facility] Comment on above: The drugs N-Acetylcy steine and Metamizole may falsely depress this assay.Serum Triglycerides Reference Interval Normal <150 mg/dL Borderline high 150 - 199 mg/dL High 200 - 499 mg/dL Very High > or = 500 mg/dL WBC (Bld) [#/Vol] 8.4 10*3/uL 4.4-11.0 [facility] Determination of erythrocyte mean corpuscular volume (MCV)Ordered By: Darrel Veloz on 11-18-2023 MCV (RBC) [Entitic vol] 96.3 fL 81-99 [facility] Erythrocyte distribution wid th ratioOrdered By: Darrel Veloz on 11-18-2023 Erythrocyte distribution width (RBC) [Ratio] 12.9 % 11.6-14.6 [facility] Erythrocyte distribution wid th standard deviationOrdered By: Darrel Veloz on 11-18-2023 Erythrocyte distribution width (RBC) [Entitic vol] 45.6 fL 35.1-43.9 [facility] Hematocrit Auto (Bld) [Volum e fraction]Ordered By: Darrel Veloz on 11-18-2023 Hematocrit (Bld) [Volume fraction] 42.0 % 37-47 [facility] Immature granulocytes/100 WB C Auto (Bld)Ordered By: Darrel Veloz on 11-18-2023 Immature granulocytes/100 WBC (Bld) 0.600 % 0.0-0.9 [facility] Comment on above: IG% - Immature Granu locytes (promyelocytes, myelocytes and metamyelocytes) > 1% indicates that a LEFT SHIFT is Present. Laboratory - Chemistry and C hemistry - challengeOrdered By: Darrel Veloz on 11-18-2023 Albumin/Globulin [Mass ratio] 0.8 {ratio} 0.9-2.4 [facility] ALP [Catalytic activity/Vol] 122 U/L 45-117 [facility] ALT [Catalytic activity/Vol] 14 U/L 13-56 [facility] Cholesterol in HDL [Mass/Vol] 48 mg/dL >40 [facility] Comment on above: The drugs N-Acetylcy steine and Metamizole may falsely depress this assay. Reference Range HDL <40 mg/dL Low HDL Cholesterol HDL >or= 60 mg/dL High HDL Cholesterol Cholesterol in LDL [Mass/Vol] 80 mg/dL 0-130 [facility] CO2 [Moles/Vol] 28.0 mmol/L 21.0-32.0 [facility] Cobalamin (Vitamin B12) [Mass/Vol] 403 pg/mL 211-911 [facility] Globulin (S) [Mass/Vol] 4.4 g/dL 2.2-4.2 [facility] Urea nitrogen/Creatinine [Mass ratio] 8.4 mg/mg 10-20 [facility] Laboratory - CoagulationOrde red By: Darrel Veloz on 11-18-2023 INR Coag (Bld) [Relative time] 1.0 {INR} [facility] PT Coag (PPP) [Time] 13.2 s 11.7-14.9 [facility] Laboratory - Hematology and Cell countsOrdered By: Darrel Veloz on 11-18-2023 MCH (RBC) [Entitic mass] 31.7 pg 27.0-32.0 [facility] MCHC (RBC) [Mass/Vol] 32.9 g/dL 32-36 [facility] Nucleated RBC/100 WBC (Bld) [Ratio] 0 % 0-5 [facility] Platelet mean volume (Bld) [Entitic vol] 10.9 fL 6.2-12.0 [facility] Platelets (Bld) [#/Vol] 246 10*3/uL 150-450 [facility] No Panel InformationOrdered By: Darrel Veloz on 11-18-2023 Addendum Document Comment . [facility] Comment on above: The quantitative ran ge of this assay is 15 IU/mL to 100million IU/mL. Estimated GFR (MDRD) Amer 81 mL/min >60 [facility] Comment on above: GFR Calc Estimated GFR (MDRD) Non-Af Amer 67 mL/min >60 [facility] Comment on above: Non- GFR Calc Tumor Marker Alpha Fetoprotein 2.3 ng/mL 0.0-6.4 [facility] [facility] Comment on above: [employer] El ectrochemiluminescence Immunoassay(ECLIA)Values obtained with different assay methods or kits cannotbe used interchangeably. Results cannot be interpreted asabsolute evidence of the presence or absence of malignantdisease.This test is not interpretable in females.Performed at: - [facility] [id number] Director: Twin Moore MD, Phone: [phone] at: - [facility] [id number] Director: Ruddy No PhD, Phone: [phone] Vitamin D 25-Hydroxy 31.2 ng/mL [facility] Comment on above: Vitamin D 25(OH) Sta tus Range Deficiency <20 ng/mL (50nmol/L) Insufficiency 20 - 30 ng/mL (50 - 75 nmol/L) Sufficiency 30 - 100 ng/mL (75 - 250 nmol/L) Toxicity >100 ng/mL (>250 nmol/L) VLDL Cholesterol 29 mg/dL 5-40 [facility] RBC Auto (Bld) [#/Vol]Ordere d By: Darrel Veloz on 11-18-2023 RBC (Bld) [#/Vol] 4.36 10*6/uL 4.2-5.4 [facility] Serum or plasma calcium heena urement (mass/volume)Ordered By: Darrel Veloz on 11-18-2023 Calcium [Mass/Vol] 9.0 mg/dL 8.5-10.1 [facility] Serum or plasma creatinine m easurement (mass/volume)Ordered By: Darrel Veloz on 11-18-2023 Creatinine [Mass/Vol] 0.95 mg/dL 0.55-1.02 [facility] Comment on above: The validity of the calculated GFR & GFRAA in patients over 70 years has not been determined. Clinical correlation is essential. Serum or plasma hepatitis C virus RNA measurement by probe and target amplification mOrdered By: Darrel Veloz on 11-18-2023 HCV RNA CHACE+probe Qn Not detected . [facility] Serum or plasma thyroid stim ulating hormone (TSH) measurement (units/volume)Ordered By: Darrel Veloz on 11-18-2023 TSH Qn 1.70 uIU/mL 0.358-3.74 [facility] Serum or plasma urea nitroge n measurement (mass/volume)Ordered By: Darrel Veloz on 11-18-2023 Urea nitrogen [Mass/Vol] 8 mg/dL 7-18 [facility] Thin prep Papanicolaou smear with manual screeningOrdered By: Darrel Veloz on 11-18-2023 Thin prep Papanicolaou smear with manual screening 3.4 g/dL 3.2-5.0 [facility] Thin prep Papanicolaou smear with manual screening 16 U/L 15-37 [facility] Thin prep Papanicolaou smear with manual screening 6 5-15 [facility] Thin prep Papanicolaou smear with manual screening 1.16 ng/dL 0.76-1.46 [facility] 36on 09-25-2023 36 Left voicemail to se e if patient still interested in program. Normal [facility] 36 Left voicemail to se e if patient still interested in surgical program. Normal [facility] 36 EGD Orders sent back to [facility] after several unsuccessful attempts were made to reach patient to schedule EGD surgery. Routed to Reyna Naylor. Normal [facility] 36on 09-04-2023 36 Called patient left message about missed appointment. Requested a call back to reschedule. Normal [facility] Basophil percentageOrdered B y: Dawit Abreu on 08-12-2023 Chloride [Moles/Vol] 107 mmol/L 98-107 [facility] Glucose [Mass/Vol] 102 mg/dL 74-106 [facility] Comment on above: Fasting Glucose resu lt from 100 to 125 mg/dL suggests IMPAIRED HOMEOSTASIS per A.D.A. criteria. Potassium [Moles/Vol] 3.7 mmol/L 3.5-5.1 [facility] Sodium [Moles/Vol] 145 mmol/L 136-145 [facility] WBC (Bld) [#/Vol] 5.9 10*3/uL 4.4-11.0 [facility] Blood erythrocytes count (nu mber/volume)Ordered By: Dawit Abreu on 08-12-2023 RBC (Bld) [#/Vol] 4.20 10*6/uL 4.2-5.4 [facility] Blood hemoglobin measurement (mass/volume)Ordered By: Dawit Abreu on 08-12-2023 Hemoglobin (Bld) [Mass/Vol] 13.7 g/dL 12.0-15.0 [facility] Blood platelet mean volumeOr dered By: Dawit Abreu on 08-12-2023 Platelet mean volume (Bld) [Entitic vol] 11.0 fL 6.2-12.0 [facility] Determination of erythrocyte mean corpuscular volume (MCV)Ordered By: Dawit Abreu on 08-12-2023 MCV (RBC) [Entitic vol] 101.2 fL 81-99 [facility] Hematocrit Auto (Bld) [Volum e fraction]Ordered By: Dawit Abreu on 08-12-2023 Hematocrit (Bld) [Volume fraction] 42.5 % 37-47 [facility] Laboratory - Chemistry and C hemistry - challengeOrdered By: Dawit Abreu on 08-12-2023 CO2 [Moles/Vol] 33.0 mmol/L 21.0-32.0 [facility] Urea nitrogen/Creatinine [Mass ratio] 21.7 mg/mg - [facility] Laboratory - Hematology and Cell countsOrdered By: Dawit Abreu on 08-12-2023 Erythrocyte distribution width (RBC) [Entitic vol] 48.5 fL 35.1-43.9 [facility] Erythrocyte distribution width (RBC) [Ratio] 13.1 % 11.6-14.6 [facility] MCH (RBC) [Entitic mass] 32.6 pg 27.0-32.0 [facility] MCHC Auto (RBC) [Mass/Vol]Or dered By: Dawit Abreu on 08-12-2023 MCHC (RBC) [Mass/Vol] 32.2 g/dL 32-36 [facility] No Panel InformationOrdered By: Dawit Abreu on 08-12-2023 Estimated GFR (MDRD) Amer 101 mL/min >60 [facility] Comment on above: GFR Calc Estimated GFR (MDRD) Non-Af Amer 84 mL/min >60 [facility] Comment on above: Non- GFR Calc Platelets bldOrdered By: Yesica Abreu on 08-12-2023 Platelets (Bld) [#/Vol] 172 10*3/uL 150-450 [facility] Serum or plasma calcium heena urement (mass/volume)Ordered By: Dawit Abreu on 08-12-2023 Calcium [Mass/Vol] 8.6 mg/dL 8.5-10.1 [facility] Serum or plasma creatinine m easurement (mass/volume)Ordered By: Dawit Abreu on 08-12-2023 Creatinine [Mass/Vol] 0.78 mg/dL 0.55-1.02 [facility] Comment on above: The validity of the calculated GFR & GFRAA in patients over 70 years has not been determined. Clinical correlation is essential. Serum or plasma urea nitroge n measurement (mass/volume)Ordered By: Dawit Abreu on 08-12-2023 Urea nitrogen [Mass/Vol] 17 mg/dL 7-18 [facility] Thin prep Papanicolaou smear with manual screeningOrdered By: Dawit Abreu on 08-12-2023 Thin prep Papanicolaou smear with manual screening 5 5-15 [facility] 36on 07-24-2023 36 Pre op check list scanned to media, orders mailed. Normal [facility] 36on 07-23-2023 36 Orders added. EGD documentation encounter created. Checklist completed and provided with orders with clinical team for processing. BARIATRIC AND METABOLIC SURGERY [facility] PATIENT SUMMARY Katarzyna Alcantar 48 y.o. female with Body mass index is 47.1 kg/m?. Planned Procedures: Laparoscopic Sleeve Gastrectomy DM[] HTN[] MODESTO[] GERD[x] HL[] OA[] TOB[x] Date of Surgery: TBD ARABELLA ROJO Jennifer CASTROROSELIA INITIAL PRE-OP TESTING ORDERS/ RESULTS Labwork [x] CMP, TSH, Fasting Lipid Profile, Mg, Zinc, Vit B1 (whole blood), Vit B12, 25-OH Vit D, Fe, Ferritin, Folate, Hgb A1c EGD [x] Dx: [x] GERD [] Dyspepsia [] Other [] Not ordered Pathology [x] H. pylori [] Negative [] Positive [] Stool Antigen UGI [x] US Abdomen [] [x] S/p lisa [] Not ordered MODESTO eval [x] [] On CPAP / Obtain settings Toxicology [x] [x] Urine drug screen/ETOH [x] Nicotine Additional [] INITIAL CONSULTATIONS ORDERED CLEARANCE / MANAGEMENT Psychology [x] Dietitian [x] Cardiology [x] Pulmonary [x] Others [] []Heme/Onc []Pain mgmt []Other: PSD [x] Physician supervised diet: []None []3 mos [x]6 mos Preop diet [x] Preop low calorie diet: []1 wk [x]2 wks [] Other: FINAL PRE-OP TESTING ORDERS RESULTS Labwork [x] [x] CBC [x]BMP [x]Serum Nicotine / Cotinine EKG [x] CXR [] POST-OP MEDICATIONS Ulcer Ppx [] Omeprazole 20 mg PO []QD Gallstone Ppx [] Ursodiol 300 mg []BID DVT Ppx [] DVT prophylaxis per final preop visit estimated risk Estimated calculated risk: % Schedule final pre-operative office visit with surgeon, pre-operative education class, and pre-operative exercise class prior to date of surgery She has a daily tobacco user and as a result we will proceed with sleeve gastrectomy [facility] Progress Noteon 07-23-2023 Progress Note LVM #3 sending back to [facility] Progress Note LVM asking pt to dede french back to schedule EGD [facility] Progress Note EGD W BIOPSY schedul ed Date: 08/13 Time: 11:15 Place: [address] [place] [address] Patient notified via phone and MAIL [facility] Progress Note ENDOSCOPY ORDERS To be scheduled with: Dr. Alcantar Patient is: Pre-op/Pre-Bariatric Surgery CPT code: EGD with biopsy- CPT 06292 Diagnosis: GERD- K21.9 If pre-op, Diet & Exercise Requirements are, and started/scheduled on 09/04/23: 6 months Home O2: No Known Difficult Intubation: No Normal [facility] Progress Note LVM #2 Normal [facility] Progress Note Jo Mejia [facility] Clinical [employer] Att[employer] No show for EGD - please call to r/s - thanks! Normal [facility] Progress Note 09/17/23 Printed. NF Normal [facility] Progress Note printed [facility] Office Visiton 07-18-2023 Follow-up visit [id number] Lm Vargas Jo 1975 F Date Provider Department Center 07/18/2023 [id number] ALCANTAR BCC SURG None Family History Problem Relation Age of Onset Hypertension Mother Substance Abuse Mother Comments: Unintentional overdose Obesity Mother Alcohol abuse Father Stroke Maternal Grandmother Hypertension Maternal Grandmother Family Status - Relation Status Age at Mother Father Alive Other Notes: Committed Suicide Maternal Grandmother Alive Level of Service:38022 IN OFFICE/OUTPATIENT NEW MODERATE MDM 45-59 MINUTES Reason for Visit and Comments: Surgical Consult [878] - NEW [facility] Progress Noteon 07-18-2023 Progress [address] SURGICAL WEIGHT LOSS MANAGEMENT PROGRAM Rooming Note - INITIAL CONSULTATION Patient: Katarzyna Vargas Date of : 1975 Service Date: 07/18/2023 Patient is here today to discuss the possibility of weight loss surgery. This patient is alone for the evaluation today she is interested in discussing weight loss surgery. Physician Supervised D/E: 6 Weight Metrics: Vitals BP: 90/60 Heart Rate: 73 Resp: 16 Temp: 36.5 ?C (97.7 ?F) Baseline Measures Initial Height: 5' 8 (172.7 cm) Initial Weight: 309 lb 12.8 oz (141 kg) Initial BMI: 47.2 Initial EBW: 169 lb 12.8 oz (77 kg) Initial Waist Cricumference: 62 Initial Neck Circumference: 17.75 Falls Risk Assessment Patient does nottake medications which affect BP or mental status Patient does not have newly prescribed or changed dosage of medications within past 30 days which affect BP or mental status Patient has not fallen in the past 2 months Patient does demonstrate unsteady gait Patient uses the following ambulatory assistive devices: wheelchair, spinal cord injury Patient is moderate risk for falls. If high or moderate risk, patient instructed not to ambulate independently in the Center, and cord for call light placed within reach of patient. History of Difficult Intubation: No Patient is not on home O2 Completed by: Danielle Chambers LPN [facility] Progress Note [facility] SURGICAL PROGRAM INITIAL EVALUATION Patient: Katarzyna Vargas Date of : 1975 Service Date: 07/18/23 Patient History: The patient is a pleasant 48 y.o. year old female with morbid obesity, who stands Height: 5' 8 (172.7 cm) (per patient) tall with a weight of Weight: (!) 309 lb 12.8 oz (141 kg) , resulting in a BMI of Body mass index is 47.1 kg/m?.. She is interested in discussing weight loss surgery. The patient suffers from multiple co-morbidities as a result of morbid obesity, including: Office notes reviewed: Morenita - 06/18/23 PMHx: Past Medical History: Diagnosis Date Anxiety Arthritis Arthritis Asthma Back pain Depression Hepatitis Joint pain Morbid obesity, unspecified obesity type (HCC) 07/12/2023 Paralytic syndrome (CMS/HCC) (HCC) Co-Morbidity Assessment Co-Morbidity Initial Evaluation Today?s Visit Type 2 DM N HTN N MODESTO N GERD Y Elevated CHO/Lipids N Depression Y The patient denies a history of myocardia infarction, deep vein thrombosis, pulmonary embolism, renal failure, hepatic failure, stroke, and seizure. 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 PSHx: Past Surgical History: Procedure Laterality Date SECTION, LOW TRANSVERSE 2001 pfannenstiel HYSTERECTOMY [facility] - [place] KNEE ARTHROPLASTY 2005 [facility] LAP,CHOLECYSTECTOMY (HISTORICAL) 2003 SPINE SURGERY 01/19/2021 Social History: This patient is unaccompanied for the evaluation today, She does smoke, and does not drink alcohol. ROS: General: negative for - chills, fatigue, fever or malaise Ophthalmic: negative for - blurry vision, double vision or dry eyes ENT: negative for - headaches, hearing change, nasal congestion, sinus pain or sore throat Endocrine: negative for - hot flashes, polydipsia/polyuria or skin changes Respiratory: negative for - cough, shortness of breath or wheezing Cardiovascular: negative for - chest pain, dyspnea on exertion, irregular heartbeat, murmur, rapid heart rate or shortness of breath Gastrointestinal: negative for - change in bowel habits, hemoptysis, hematemesis, hematochezia, dysphagia, nausea, vomiting, diarrhea, constipation, weight loss Genito-Urinary: negative for - dysuria, hematuria, incontinence or nocturia Musculoskeletal: positive for - joint pain, joint stiffness, joint swelling, muscle pain or muscular weakness Neurological: negative for - confusion, dizziness, headaches or numbness/tingling Physical Examination: BP 90/60 Pulse 73 Temp 36.5 ?C (97.7 ?F) Resp 16 Ht 5' 8 (1.727 m) Comment: per patient Wt (!) 309 lb 12.8 oz (141 kg) BMI 47.10 kg/m? General: This patient is awake, alert, and oriented, and is in no apparent distress. Respiratory: Non-labored breathing Abdomen: Obese, soft, non-tender, non-distended, without masses. Incisions consistent with previous surgeries. Prior peg site, scars from lap lisa and pfannenstiel from hysterectomy and -suprapubic catheter in place. Head and Neck: Obese, normocephalic and atraumatic. Soft and supple. Healed tracheostomy site. Extremities: No cyanosis, clubbing, bilateral LE edema/ No calf tenderness/is in wheelchair, unable to stand Neurological: In wheelchair, LE weakness and spasticity - unable to walk - only bear weight with walker. Skin: No rashes or lesions noted. Rectal: Not Done Hernia: no hernias found on exam Assessment: The patient has failed multiple attempts at non-surgical weight loss, and is now seeking surgical intervention to promote permanent and consistent weight loss. She has chosen Laparoscopic Sleeve Gastrectomy. She is well educated regarding it, as she has recently viewed our weight loss surgery informational seminar . In anticipation of weight reductive surgery now or in the future, we spent a great deal of time discussing the risks and benefits of, including but not limited to injury to intra-abdominal organs, breakdown of the gastric staple line, the need for re-operative therapy, prolonged hospitalization, mechanical ventilation, and . We discussed the possibility of bleeding, the need for blood transfusions, blood clots, hospital-acquired and intra-abdominal infection, anastomotic stricture, and worsening GERD. And we discussed the need for post-operative visit compliance, behavior modifications and diet changes, protein and vitamin supplementation, as well as routine scheduled and dedicated exercise. We discussed the potential weight loss benefit of approximately 60-70% of her excess body weight at 12-18 months post-op (LRYGB) and 50% of her excess body weight loss at 12-18 months after a LSG, as well as the possibility of insufficient weight loss or weight gain after 2 years post-operative time. Upon completion of all required pre-operative testing we will submit for insurance pre-a (more content not included)... Normal [facility] Basophil percentageOrdered B y: Dawit Abreu on 07-15-2023 Chloride [Moles/Vol] 105 mmol/L 98-107 [facility] Glucose [Mass/Vol] 123 mg/dL 74-106 [facility] Comment on above: Fasting Glucose resu lt from 100 to 125 mg/dL suggests IMPAIRED HOMEOSTASIS per A.D.A. criteria. Potassium [Moles/Vol] 3.6 mmol/L 3.5-5.1 [facility] Sodium [Moles/Vol] 141 mmol/L 136-145 [facility] WBC (Bld) [#/Vol] 7.0 10*3/uL 4.4-11.0 [facility] Blood erythrocytes count (nu mber/volume)Ordered By: Dawit Abreu on 07-15-2023 RBC (Bld) [#/Vol] 4.35 10*6/uL 4.2-5.4 [facility] Blood hemoglobin measurement (mass/volume)Ordered By: Dawit Abreu on 07-15-2023 Hemoglobin (Bld) [Mass/Vol] 14.1 g/dL 12.0-15.0 [facility] Blood platelet mean volumeOr dered By: Dawit Abreu on 07-15-2023 Platelet mean volume (Bld) [Entitic vol] 10.7 fL 6.2-12.0 [facility] Determination of erythrocyte mean corpuscular volume (MCV)Ordered By: Dawit Abreu on 07-15-2023 MCV (RBC) [Entitic vol] 101.4 fL 81-99 [facility] Hematocrit Auto (Bld) [Volum e fraction]Ordered By: Dawit Abreu on 07-15-2023 Hematocrit (Bld) [Volume fraction] 44.1 % 37-47 [facility] Laboratory - Chemistry and C hemistry - challengeOrdered By: Dawit Abreu on 07-15-2023 CO2 [Moles/Vol] 33.0 mmol/L 21.0-32.0 [facility] Urea nitrogen/Creatinine [Mass ratio] 22.8 mg/mg 10-20 [facility] Laboratory - Hematology and Cell countsOrdered By: Dawit Abreu on 07-15-2023 Erythrocyte distribution width (RBC) [Entitic vol] 49.1 fL 35.1-43.9 [facility] Erythrocyte distribution width (RBC) [Ratio] 13.2 % 11.6-14.6 [facility] MCH (RBC) [Entitic mass] 32.4 pg 27.0-32.0 [facility] MCHC Auto (RBC) [Mass/Vol]Or dered By: Dawit Abreu on 07-15-2023 MCHC (RBC) [Mass/Vol] 32.0 g/dL 32-36 [facility] No Panel InformationOrdered By: Dawit Abreu on 07-15-2023 Estimated GFR (MDRD) Amer 100 mL/min >60 [facility] Comment on above: GFR Calc Estimated GFR (MDRD) Non-Af Amer 83 mL/min >60 [facility] Comment on above: Non- GFR Calc Platelets bldOrdered By: Yesica Abreu on 07-15-2023 Platelets (Bld) [#/Vol] 189 10*3/uL 150-450 [facility] Serum or plasma calcium heena urement (mass/volume)Ordered By: Dawit Abreu on 07-15-2023 Calcium [Mass/Vol] 8.7 mg/dL 8.5-10.1 [facility] Serum or plasma creatinine m easurement (mass/volume)Ordered By: Dawit Abreu on 07-15-2023 Creatinine [Mass/Vol] 0.79 mg/dL 0.55-1.02 [facility] Comment on above: The validity of the calculated GFR & GFRAA in patients over 70 years has not been determined. Clinical correlation is essential. Serum or plasma urea nitroge n measurement (mass/volume)Ordered By: Dawit Abreu on 07-15-2023 Urea nitrogen [Mass/Vol] 18 mg/dL 7-18 [facility] Thin prep Papanicolaou smear with manual screeningOrdered By: Dawit Abreu on 07-15-2023 Thin prep Papanicolaou smear with manual screening 3 5-15 [facility] Basophil percentageOrdered B y: Dawit Abreu on 06-17-2023 Chloride [Moles/Vol] 104 mmol/L 98-107 [facility] Glucose [Mass/Vol] 85 mg/dL 74-106 [facility] Potassium [Moles/Vol] 3.4 mmol/L 3.5-5.1 [facility] Sodium [Moles/Vol] 140 mmol/L 136-145 [facility] WBC (Bld) [#/Vol] 6.1 10*3/uL 4.4-11.0 [facility] Blood erythrocytes count (nu mber/volume)Ordered By: Dawit Abreu on 06-17-2023 RBC (Bld) [#/Vol] 4.24 10*6/uL 4.2-5.4 [facility] Blood hemoglobin measurement (mass/volume)Ordered By: Dawit Abreu on 06-17-2023 Hemoglobin (Bld) [Mass/Vol] 13.8 g/dL 12.0-15.0 [facility] Blood platelet mean volumeOr dered By: Dawit Abreu on 06-17-2023 Platelet mean volume (Bld) [Entitic vol] 10.6 fL 6.2-12.0 [facility] Determination of erythrocyte mean corpuscular volume (MCV)Ordered By: Dawit Abreu on 06-17-2023 MCV (RBC) [Entitic vol] 99.3 fL 81-99 [facility] Hematocrit Auto (Bld) [Volum e fraction]Ordered By: Dawit Abreu on 06-17-2023 Hematocrit (Bld) [Volume fraction] 42.1 % 37-47 [facility] Laboratory - Chemistry and C hemistry - challengeOrdered By: Dawit Abreu on 06-17-2023 CO2 [Moles/Vol] 22.0 mmol/L 21.0-32.0 [facility] Urea nitrogen/Creatinine [Mass ratio] 21.8 mg/mg 10-20 [facility] Laboratory - Hematology and Cell countsOrdered By: Dawit Abreu on 06-17-2023 Erythrocyte distribution width (RBC) [Entitic vol] 47.4 fL 35.1-43.9 [facility] Erythrocyte distribution width (RBC) [Ratio] 13.0 % 11.6-14.6 [facility] MCH (RBC) [Entitic mass] 32.5 pg 27.0-32.0 [facility] MCHC Auto (RBC) [Mass/Vol]Or dered By: Dawit Abreu on 06-17-2023 MCHC (RBC) [Mass/Vol] 32.8 g/dL 32-36 [facility] No Panel InformationOrdered By: Dawit Abreu on 06-17-2023 Estimated GFR (MDRD) Amer 118 mL/min >60 [facility] Comment on above: GFR Calc Estimated GFR (MDRD) Non-Af Amer 97 mL/min >60 [facility] Comment on above: Non- GFR Calc Platelets bldOrdered By: Yesica Abreu on 06-17-2023 Platelets (Bld) [#/Vol] 160 10*3/uL 150-450 [facility] Serum or plasma calcium heena urement (mass/volume)Ordered By: Dawit Abreu on 06-17-2023 Calcium [Mass/Vol] 7.4 mg/dL 8.5-10.1 [facility] Serum or plasma creatinine m easurement (mass/volume)Ordered By: Dawit Abreu on 06-17-2023 Creatinine [Mass/Vol] 0.69 mg/dL 0.55-1.02 [facility] Comment on above: The validity of the calculated GFR & GFRAA in patients over 70 years has not been determined. Clinical correlation is essential. Serum or plasma urea nitroge n measurement (mass/volume)Ordered By: Dawit Abreu on 06-17-2023 Urea nitrogen [Mass/Vol] 15 mg/dL 7-18 [facility] Thin prep Papanicolaou smear with manual screeningOrdered By: Dawit Abreu on 06-17-2023 Thin prep Papanicolaou smear with manual screening 14 5-15 [facility] Basophil percentageOrdered B y: Dawit Abreu on 06-04-2023 Bilirubin [Mass/Vol] 0.30 mg/dL 0.20-1.00 [facility] Comment on above: For patients on eltr ombopag therapy, use of [employer] [place] TBIL is not recommended. Protein [Mass/Vol] 6.9 g/dL 6.4-8.2 [facility] Direct bilirubinOrdered By: Dawit Abreu on 06-04-2023 Bilirubin.direct [Mass/Vol] 0.08 mg/dL 0.00-0.30 [facility] Laboratory - Chemistry and C hemistry - challengeOrdered By: Dawit Abreu on 06-04-2023 ALP [Catalytic activity/Vol] 108 U/L 45-117 [facility] ALT [Catalytic activity/Vol] 12 U/L 13-56 [facility] Globulin (S) [Mass/Vol] 3.9 g/dL 2.2-4.2 [facility] Serum or plasma albumin heena urement (mass/volume)Ordered By: Dawit Abreu on 06-04-2023 Albumin [Mass/Vol] 3.0 g/dL 3.2-5.0 [facility] Thin prep Papanicolaou smear with manual screeningOrdered By: Dawit Abreu on 06-04-2023 Thin prep Papanicolaou smear with manual screening 8 U/L 15-37 [facility] Whole blood hemoglobin A1c/t otal hemoglobin ratio (mass fraction)Ordered By: Dawit Abreu on 06-04-2023 HbA1c (Bld) [Mass fraction] 4.9 % 3.8-5.6 [facility] Comment on above: Normal < 5.7 % Predi abetic 5.7 - 6.4 % Diabetic >or= 6.5 % Please note range changes. Basophil percentageOrdered B y: Dawit Abreu on 05-20-2023 Chloride [Moles/Vol] 108 mmol/L 98-107 [facility] Glucose [Mass/Vol] 95 mg/dL 74-106 [facility] Potassium [Moles/Vol] 5.0 mmol/L 3.5-5.1 [facility] Comment on above: Slight Hemolysis, Re sult may be falsely increased. Sodium [Moles/Vol] 141 mmol/L 136-145 [facility] WBC (Bld) [#/Vol] 6.4 10*3/uL 4.4-11.0 [facility] Blood erythrocytes count (nu mber/volume)Ordered By: Dawit Abreu on 05-20-2023 RBC (Bld) [#/Vol] 4.25 10*6/uL 4.2-5.4 [facility] Blood hemoglobin measurement (mass/volume)Ordered By: Dawit Abreu on 05-20-2023 Hemoglobin (Bld) [Mass/Vol] 13.9 g/dL 12.0-15.0 [facility] Blood platelet mean volumeOr dered By: Dawit Abreu on 05-20-2023 Platelet mean volume (Bld) [Entitic vol] 11.0 fL 6.2-12.0 [facility] Determination of erythrocyte mean corpuscular volume (MCV)Ordered By: Dawit Abreu on 05-20-2023 MCV (RBC) [Entitic vol] 103.5 fL 81-99 [facility] Hematocrit Auto (Bld) [Volum e fraction]Ordered By: Dawit Abreu on 05-20-2023 Hematocrit (Bld) [Volume fraction] 44.0 % 37-47 [facility] Laboratory - Chemistry and C hemistry - challengeOrdered By: Dawit Abreu on 05-20-2023 CO2 [Moles/Vol] 33.0 mmol/L 21.0-32.0 [facility] Urea nitrogen/Creatinine [Mass ratio] 28.2 mg/mg 10-20 [facility] Laboratory - Hematology and Cell countsOrdered By: Dawit Abreu on 05-20-2023 Erythrocyte distribution width (RBC) [Entitic vol] 49.1 fL 35.1-43.9 [facility] Erythrocyte distribution width (RBC) [Ratio] 12.9 % 11.6-14.6 [facility] MCH (RBC) [Entitic mass] 32.7 pg 27.0-32.0 [facility] MCHC Auto (RBC) [Mass/Vol]Or dered By: Dawit Abreu on 05-20-2023 MCHC (RBC) [Mass/Vol] 31.6 g/dL 32-36 [facility] No Panel InformationOrdered By: Dawit Abreu on 05-20-2023 Estimated GFR (MDRD) Amer 102 mL/min >60 [facility] Comment on above: GFR Calc Estimated GFR (MDRD) Non-Af Amer 84 mL/min >60 [facility] Comment on above: Non- GFR Calc Platelets bldOrdered By: Yesica Abreu on 05-20-2023 Platelets (Bld) [#/Vol] 170 10*3/uL 150-450 [facility] Serum or plasma calcium heena urement (mass/volume)Ordered By: Dawit Abreu on 05-20-2023 Calcium [Mass/Vol] 9.1 mg/dL 8.5-10.1 [facility] Serum or plasma creatinine m easurement (mass/volume)Ordered By: Dawit Abreu on 05-20-2023 Creatinine [Mass/Vol] 0.78 mg/dL 0.55-1.02 [facility] Comment on above: The validity of the calculated GFR & GFRAA in patients over 70 years has not been determined. Clinical correlation is essential. Serum or plasma urea nitroge n measurement (mass/volume)Ordered By: Dawit Abreu on 05-20-2023 Urea nitrogen [Mass/Vol] 22 mg/dL 7-18 [facility] Thin prep Papanicolaou smear with manual screeningOrdered By: Dawit Abreu on 05-20-2023 Thin prep Papanicolaou smear with manual screening 0 5-15 [facility] Culture, urineOrdered By: Jona Abreu on 05-01-2023 Bacteria identified Cx Nom (U) Morganella morganii sp morgani [facility] Bacteria identified Cx Nom ( Wound)Ordered By: Dawit Abreu on 04-30-2023 Wound Culture Pseudomonas aeruginosa [facility] Wound Culture Achromobacter xylosoxidans [facility] Wound Culture Corynebacterium striatum [facility] Wound Culture Enterococcus faecalis [facility] Gram stain for investigation of transfusion reactionOrdered By: Dawit Abreu on 04-30-2023 Microscopic observation Gram stain Nom (Unsp spec) [facility] Basophil percentageOrdered B y: Iron Kimball on 04-22-2023 Chloride [Moles/Vol] 108 mmol/L 98-107 [facility] Glucose [Mass/Vol] 96 mg/dL 74-106 [facility] Potassium [Moles/Vol] 3.4 mmol/L 3.5-5.1 [facility] Sodium [Moles/Vol] 140 mmol/L 136-145 [facility] WBC (Bld) [#/Vol] 6.4 10*3/uL 4.4-11.0 [facility] Blood erythrocytes count (nu mber/volume)Ordered By: Iron Kimball on 04-22-2023 RBC (Bld) [#/Vol] 4.27 10*6/uL 4.2-5.4 [facility] Blood hemoglobin measurement (mass/volume)Ordered By: Iron Kimball on 04-22-2023 Hemoglobin (Bld) [Mass/Vol] 14.0 g/dL 12.0-15.0 [facility] Blood platelet mean volumeOr dered By: Iron Kimball on 04-22-2023 Platelet mean volume (Bld) [Entitic vol] 11.0 fL 6.2-12.0 [facility] Determination of erythrocyte mean corpuscular volume (MCV)Ordered By: Iron Kimball on 04-22-2023 MCV (RBC) [Entitic vol] 100.5 fL 81-99 [facility] Hematocrit Auto (Bld) [Volum e fraction]Ordered By: Iron Kimball on 04-22-2023 Hematocrit (Bld) [Volume fraction] 42.9 % 37-47 [facility] Laboratory - Chemistry and C hemistry - challengeOrdered By: Iron Kimball on 04-22-2023 CO2 [Moles/Vol] 30.0 mmol/L 21.0-32.0 [facility] Urea nitrogen/Creatinine [Mass ratio] 21.9 mg/mg 10-20 [facility] Laboratory - Hematology and Cell countsOrdered By: Iron Kimball on 04-22-2023 Erythrocyte distribution width (RBC) [Entitic vol] 45.8 fL 35.1-43.9 [facility] Erythrocyte distribution width (RBC) [Ratio] 12.4 % 11.6-14.6 [facility] MCH (RBC) [Entitic mass] 32.8 [facility].0-[facility] [[facility]/Vol]Or dered By: Iron Kimball on 04-22-2023 MCHC (RBC) [Mass/Vol] 32.6 g/dL 32-36 [facility] No Panel InformationOrdered By: Iron Kimball on 04-22-2023 Estimated GFR (MDRD) Amer 118 mL/min >60 [facility] Comment on above: GFR Calc Estimated GFR (MDRD) Non-Af Amer 98 mL/min >60 [facility] Comment on above: Non- GFR Calc Platelets bldOrdered By: Pet antonio Kimball on 04-22-2023 Platelets (Bld) [#/Vol] 173 10*3/uL 150-450 [facility] Serum or plasma calcium heena urement (mass/volume)Ordered By: Iron Kimball on 04-22-2023 Calcium [Mass/Vol] 8.9 mg/dL 8.5-10.1 [facility] Serum or plasma creatinine m easurement (mass/volume)Ordered By: Iron Kimball on 04-22-2023 Creatinine [Mass/Vol] 0.68 mg/dL 0.55-1.02 [facility] Comment on above: The validity of the calculated GFR & GFRAA in patients over 70 years has not been determined. Clinical correlation is essential. Serum or plasma urea nitroge n measurement (mass/volume)Ordered By: Iron Kimball on 04-22-2023 Urea nitrogen [Mass/Vol] 15 mg/dL 7-18 [facility] Thin prep Papanicolaou smear with manual screeningOrdered By: Iron Kimball on 04-22-2023 Thin prep Papanicolaou smear with manual screening 2 5-15 [facility] Basophil percentageOrdered B y: Dawit Abreu on 03-25-2023 Chloride [Moles/Vol] 108 mmol/L 98-107 [facility] Glucose [Mass/Vol] 88 mg/dL 74-106 [facility] Potassium [Moles/Vol] 3.6 mmol/L 3.5-5.1 [facility] Sodium [Moles/Vol] 141 mmol/L 136-145 [facility] WBC (Bld) [#/Vol] 5.4 10*3/uL 4.4-11.0 [facility] Blood erythrocytes count (nu mber/volume)Ordered By: Dawit Abreu on 03-25-2023 RBC (Bld) [#/Vol] 4.22 10*6/uL 4.2-5.4 [facility] Blood hemoglobin measurement (mass/volume)Ordered By: Dawit Abreu on 03-25-2023 Hemoglobin (Bld) [Mass/Vol] 13.9 g/dL 12.0-15.0 [facility] Blood platelet mean volumeOr dered By: Dawit Abreu on 03-25-2023 Platelet mean volume (Bld) [Entitic vol] 10.8 fL 6.2-12.0 [facility] Determination of erythrocyte mean corpuscular volume (MCV)Ordered By: Dwait Abreu on 03-25-2023 MCV (RBC) [Entitic vol] 100.0 fL 81-99 [facility] Hematocrit Auto (Bld) [Volum e fraction]Ordered By: Dawit Abreu on 03-25-2023 Hematocrit (Bld) [Volume fraction] 42.2 % 37-47 [facility] Laboratory - Chemistry and C hemistry - challengeOrdered By: Dawit Abreu on 03-25-2023 CO2 [Moles/Vol] 32.0 mmol/L 21.0-32.0 [facility] Urea nitrogen/Creatinine [Mass ratio] 24.2 mg/mg 10-20 [facility] Laboratory - Hematology and Cell countsOrdered By: Dawit Abreu on 03-25-2023 Erythrocyte distribution width (RBC) [Entitic vol] 45.6 fL 35.1-43.9 [facility] Erythrocyte distribution width (RBC) [Ratio] 12.4 % 11.6-14.6 [facility] MCH (RBC) [Entitic mass] 32.9 pg 27.0-32.0 [facility] MCHC Auto (RBC) [Mass/Vol]Or dered By: Dawit Abreu on 03-25-2023 MCHC (RBC) [Mass/Vol] 32.9 g/dL 32-36 [facility] No Panel InformationOrdered By: Dawit Abreu on 03-25-2023 Estimated GFR (MDRD) Amer 123 mL/min >60 [facility] Comment on above: GFR Calc Estimated GFR (MDRD) Non-Af Amer 102 mL/min >60 [facility] Comment on above: Non- GFR Calc Platelets bldOrdered By: Yesica Abreu on 03-25-2023 Platelets (Bld) [#/Vol] 195 10*3/uL 150-450 [facility] Serum or plasma calcium heena urement (mass/volume)Ordered By: Dawit Abreu on 03-25-2023 Calcium [Mass/Vol] 8.3 mg/dL 8.5-10.1 [facility] Serum or plasma creatinine m easurement (mass/volume)Ordered By: Dawit Abreu on 03-25-2023 Creatinine [Mass/Vol] 0.66 mg/dL 0.55-1.02 [facility] Comment on above: The validity of the calculated GFR & GFRAA in patients over 70 years has not been determined. Clinical correlation is essential. Serum or plasma urea nitroge n measurement (mass/volume)Ordered By: Dawit Abreu on 03-25-2023 Urea nitrogen [Mass/Vol] 16 mg/dL 7-18 [facility] Thin prep Papanicolaou smear with manual screeningOrdered By: Dawit Abreu on 03-25-2023 Thin prep Papanicolaou smear with manual screening 1 5-15 [facility] Bacteria identified Cx Nom ( Wound)Ordered By: Dawit Abreu on 03-17-2023 Wound Culture Pseudomonas aeruginosa [facility] Wound Culture Staphylococcus species [facility] Wound Culture Enterococcus faecalis [facility] Fungus cultureOrdered By: Jona Abreu on 03-17-2023 Fungus identified Cx Nom (Unsp spec) [facility] Gram stain for investigation of transfusion reactionOrdered By: Dawit Abreu on 03-17-2023 Microscopic observation Gram stain Nom (Unsp spec) [facility] Culture, urineOrdered By: Jona Abreu on 03-06-2023 Bacteria identified Cx Nom (U) Providencia rettgeri [facility] Bacteria identified Cx Nom (U) Pseudomonas aeruginosa [facility] Basophil percentageOrdered B y: Dawit Abreu on 03-03-2023 Basophil percentage 5-10 SEEN /hpf 0-5 [facility] Bilirubin Test strip Ql (U)O rdered By: Dawit Abreu on 03-03-2023 Bilirubin Ql (U) Negative Negative [facility] Culture, urineOrdered By: Jona Abreu on 03-03-2023 Bacteria identified Cx Nom (U) Providencia rettgeri [facility] Bacteria identified Cx Nom (U) Pseudomonas aeruginosa [facility] Ketones Test strip Ql (U)Ord ered By: Dawit Abreu on 03-03-2023 Ketones Ql (U) Negative Negative [facility] Mucus LM Ql (Urine sed)Order ed By: Dawit Abrue on 03-03-2023 Mucus Ql (Urine sed) 0 SEEN /hpf [facility] Nitrite Test strip Ql (U)Ord ered By: Dawit Abreu on 03-03-2023 Nitrite Ql (U) Positive Negative [facility] Protein Test strip Ql (U)Ord ered By: Dawit Abreu on 03-03-2023 Protein Ql (U) 15 mg/dl Negative [facility] Squamous epithelial cells de tection in urine sediment by light microscopyOrdered By: Dawit Abreu on 03-03-2023 Epithelial cells.squamous LM Ql (Urine sed) 0 SEEN /hpf 5-10 [facility] Urine blood detectionOrdered By: Dawit Abreu on 03-03-2023 RBC Ql (U) Negative Negative [facility] RBC Ql (U) 0 SEEN /hpf 0-5 [facility] Urine clarityOrdered By: Yesica Abreu on 03-03-2023 Clarity (U) Clear Clear [facility] Urine color determinationOrd ered By: Dawit Abreu on 03-03-2023 Color (U) Yellow Yellow [facility] Urine glucose detectionOrder ed By: Dawit Abreu on 03-03-2023 Glucose Ql (U) Normal mg/dl Normal [facility] Urine leukocyte esterase det ection by dipstickOrdered By: Dawit Abreu on 03-03-2023 Leukocyte esterase Test strip Ql (U) 500 /ul Negative [facility] Urine pHOrdered By: Dawit wen on 03-03-2023 pH (U) 8.0 [pH] 5.0 - 8.0 [facility] Urine sediment bacteria coun t by microscopy (number/high power field)Ordered By: Dawit Abreu on 03-03-2023 Bacteria LM.HPF (Urine sed) [#/Area] 1 /[HPF] None Seen [facility] Urine specific gravity measu rementOrdered By: Dawit Abreu on 03-03-2023 Specific gravity (U) [Rel density] 1.015 1.002-1.030 [facility] Urobilinogen Auto test strip Ql (U)Ordered By: Dawit Abreu on 03-03-2023 Urobilinogen Ql (U) Normal mg/dl Normal [facility] Basophil percentageOrdered B y: Dawit Abreu on 02-25-2023 Chloride [Moles/Vol] 109 mmol/L 98-107 [facility] Glucose [Mass/Vol] 85 mg/dL 74-106 [facility] Potassium [Moles/Vol] 3.5 mmol/L 3.5-5.1 [facility] Sodium [Moles/Vol] 143 mmol/L 136-145 [facility] WBC (Bld) [#/Vol] 6.2 10*3/uL 4.4-11.0 [facility] Blood erythrocytes count (nu mber/volume)Ordered By: Dawit Abreu on 02-25-2023 RBC (Bld) [#/Vol] 3.98 10*6/uL 4.2-5.4 [facility] Blood hemoglobin measurement (mass/volume)Ordered By: Dawit Abreu on 02-25-2023 Hemoglobin (Bld) [Mass/Vol] 13.2 g/dL 12.0-15.0 [facility] Blood platelet mean volumeOr dered By: Dawit Abreu on 02-25-2023 Platelet mean volume (Bld) [Entitic vol] 10.7 fL 6.2-12.0 [facility] Determination of erythrocyte mean corpuscular volume (MCV)Ordered By: Dawit Abreu on 02-25-2023 MCV (RBC) [Entitic vol] 102.3 fL 81-99 [facility] Hematocrit Auto (Bld) [Volum e fraction]Ordered By: Dawit Abreu on 02-25-2023 Hematocrit (Bld) [Volume fraction] 40.7 % 37-47 [facility] Laboratory - Chemistry and C hemistry - challengeOrdered By: Dawit Abreu on 02-25-2023 CO2 [Moles/Vol] 32.0 mmol/L 21.0-32.0 [facility] Urea nitrogen/Creatinine [Mass ratio] 26.4 mg/mg 10-20 [facility] Laboratory - Hematology and Cell countsOrdered By: Dawit Abreu on 02-25-2023 Erythrocyte distribution width (RBC) [Entitic vol] 50.1 fL 35.1-43.9 [facility] Erythrocyte distribution width (RBC) [Ratio] 13.3 % 11.6-14.6 [facility] MCH (RBC) [Entitic mass] 33.2 pg 27.0-32.0 [facility] MCHC Auto (RBC) [Mass/Vol]Or dered By: Dawit Abreu on 02-25-2023 MCHC (RBC) [Mass/Vol] 32.4 g/dL 32-36 [facility] No Panel InformationOrdered By: Dawit Abreu on 02-25-2023 Estimated GFR (MDRD) Amer 159 mL/min >60 [facility] Comment on above: GFR Calc Estimated GFR (MDRD) Non-Af Amer 131 mL/min >60 [facility] Comment on above: Non- GFR Calc Platelets bldOrdered By: Yesica Abreu on 02-25-2023 Platelets (Bld) [#/Vol] 213 10*3/uL 150-450 [facility] Serum or plasma calcium heena urement (mass/volume)Ordered By: Dawit Abreu on 02-25-2023 Calcium [Mass/Vol] 8.4 mg/dL 8.5-10.1 [facility] Serum or plasma creatinine m easurement (mass/volume)Ordered By: Dawit Abreu on 02-25-2023 Creatinine [Mass/Vol] 0.53 mg/dL 0.55-1.02 [facility] Comment on above: The validity of the calculated GFR & GFRAA in patients over 70 years has not been determined. Clinical correlation is essential. Serum or plasma urea nitroge n measurement (mass/volume)Ordered By: Dawit Abreu on 02-25-2023 Urea nitrogen [Mass/Vol] 14 mg/dL 7-18 [facility] Thin prep Papanicolaou smear with manual screeningOrdered By: Dawit Abreu on 02-25-2023 Thin prep Papanicolaou smear with manual screening 2 5-15 [facility] Basophil percentageOrdered B y: Dawit Abreu on 01-28-2023 Chloride [Moles/Vol] 109 mmol/L 98-107 [facility] Glucose [Mass/Vol] 111 mg/dL 74-106 [facility] Comment on above: Fasting Glucose resu lt from 100 to 125 mg/dL suggests IMPAIRED HOMEOSTASIS per A.D.A. criteria. Potassium [Moles/Vol] 4.0 mmol/L 3.5-5.1 [facility] Sodium [Moles/Vol] 139 mmol/L 136-145 [facility] WBC (Bld) [#/Vol] 7.4 10*3/uL 4.4-11.0 [facility] Blood erythrocytes count (nu mber/volume)Ordered By: Dawit Abreu on 01-28-2023 RBC (Bld) [#/Vol] 4.34 10*6/uL 4.2-5.4 [facility] Blood hemoglobin measurement (mass/volume)Ordered By: Dawit Abreu on 01-28-2023 Hemoglobin (Bld) [Mass/Vol] 14.1 g/dL 12.0-15.0 [facility] Blood platelet mean volumeOr dered By: Dawit Abreu on 01-28-2023 Platelet mean volume (Bld) [Entitic vol] 11.4 fL 6.2-12.0 [facility] Determination of erythrocyte mean corpuscular volume (MCV)Ordered By: Dawit Abreu on 01-28-2023 MCV (RBC) [Entitic vol] 97.7 fL 81-99 [facility] Hematocrit Auto (Bld) [Volum e fraction]Ordered By: Dawit Abreu on 01-28-2023 Hematocrit (Bld) [Volume fraction] 42.4 % 37-47 [facility] Laboratory - Chemistry and C hemistry - challengeOrdered By: Dawit Abreu on 01-28-2023 CO2 [Moles/Vol] 23.0 mmol/L 21.0-32.0 [facility] Urea nitrogen/Creatinine [Mass ratio] 23.4 mg/mg 10-20 [facility] Laboratory - Hematology and Cell countsOrdered By: Dawit Abreu on 01-28-2023 Erythrocyte distribution width (RBC) [Entitic vol] 46.4 fL 35.1-43.9 [facility] Erythrocyte distribution width (RBC) [Ratio] 13.0 % 11.6-14.6 [facility] MCH (RBC) [Entitic mass] 32.5 pg 27.0-32.0 [facility] MCHC Auto (RBC) [Mass/Vol]Or dered By: Dawit Abreu on 01-28-2023 MCHC (RBC) [Mass/Vol] 33.3 g/dL 32-36 [facility] No Panel InformationOrdered By: Dawit Abreu on 01-28-2023 Estimated GFR (MDRD) Amer 119 mL/min >60 [facility] Comment on above: GFR Calc Estimated GFR (MDRD) Non-Af Amer 98 mL/min >60 [facility] Comment on above: Non- GFR Calc Platelets bldOrdered By: Yesica Abreu on 01-28-2023 Platelets (Bld) [#/Vol] 173 10*3/uL 150-450 [facility] Serum or plasma calcium heena urement (mass/volume)Ordered By: Dawit Aberu on 01-28-2023 Calcium [Mass/Vol] 8.6 mg/dL 8.5-10.1 [facility] Serum or plasma creatinine m easurement (mass/volume)Ordered By: Dawit Abreu on 01-28-2023 Creatinine [Mass/Vol] 0.68 mg/dL 0.55-1.02 [facility] Comment on above: The validity of the calculated GFR & GFRAA in patients over 70 years has not been determined. Clinical correlation is essential. Serum or plasma urea nitroge n measurement (mass/volume)Ordered By: Dawit Abreu on 01-28-2023 Urea nitrogen [Mass/Vol] 16 mg/dL 7-18 [facility] Thin prep Papanicolaou smear with manual screeningOrdered By: Dawit Abreu on 01-28-2023 Thin prep Papanicolaou smear with manual screening 7 5-15 [facility] Basophil percentageOrdered B y: Dawit Abreu on 12-31-2022 Chloride [Moles/Vol] 104 mmol/L 98-107 [facility] Glucose [Mass/Vol] 104 mg/dL 74-106 [facility] Comment on above: Fasting Glucose resu lt from 100 to 125 mg/dL suggests IMPAIRED HOMEOSTASIS per A.D.A. criteria. Potassium [Moles/Vol] 3.4 mmol/L 3.5-5.1 [facility] Sodium [Moles/Vol] 140 mmol/L 136-145 [facility] WBC (Bld) [#/Vol] 6.1 10*3/uL 4.4-11.0 [facility] Blood erythrocytes count (nu mber/volume)Ordered By: Dawit Abreu on 12-31-2022 RBC (Bld) [#/Vol] 4.20 10*6/uL 4.2-5.4 [facility] Blood hemoglobin measurement (mass/volume)Ordered By: Dawit Abreu on 12-31-2022 Hemoglobin (Bld) [Mass/Vol] 13.6 g/dL 12.0-15.0 [facility] Blood platelet mean volumeOr dered By: Dawit Abreu on 12-31-2022 Platelet mean volume (Bld) [Entitic vol] 11.1 fL 6.2-12.0 [facility] Determination of erythrocyte mean corpuscular volume (MCV)Ordered By: Dawit Abreu on 12-31-2022 MCV (RBC) [Entitic vol] 99.0 fL 81-99 [facility] Hematocrit Auto (Bld) [Volum e fraction]Ordered By: Dawit Abreu on 12-31-2022 Hematocrit (Bld) [Volume fraction] 41.6 % 37-47 [facility] Laboratory - Chemistry and C hemistry - challengeOrdered By: Dwait Abreu on 12-31-2022 CO2 [Moles/Vol] 34.0 mmol/L 21.0-32.0 [facility] Urea nitrogen/Creatinine [Mass ratio] 19.8 mg/mg 10-20 [facility] Laboratory - Hematology and Cell countsOrdered By: Dawit Abreu on 12-31-2022 Erythrocyte distribution width (RBC) [Entitic vol] 47.3 fL 35.1-43.9 [facility] Erythrocyte distribution width (RBC) [Ratio] 13.0 % 11.6-14.6 [facility] MCH (RBC) [Entitic mass] 32.4 pg 27.0-32.0 [facility] [Mass/Vol]Or dered By: Dawit Abreu on 12-31-2022 MCHC (RBC) [Mass/Vol] 32.7 g/dL 32-36 [facility] No Panel InformationOrdered By: Dawit Abreu on 12-31-2022 Estimated GFR (MDRD) Amer 91 mL/min >60 [facility] Comment on above: GFR Calc Estimated GFR (MDRD) Non-Af Amer 76 mL/min >60 [facility] Comment on above: Non- GFR Calc Platelets bldOrdered By: Yesica Abreu on 12-31-2022 Platelets (Bld) [#/Vol] 182 10*3/uL 150-450 [facility] Serum or plasma calcium heena urement (mass/volume)Ordered By: Dawit Abreu on 12-31-2022 Calcium [Mass/Vol] 9.0 mg/dL 8.5-10.1 [facility] Serum or plasma creatinine m easurement (mass/volume)Ordered By: Dawit Abreu on 12-31-2022 Creatinine [Mass/Vol] 0.86 mg/dL 0.55-1.02 [facility] Comment on above: The validity of the calculated GFR & GFRAA in patients over 70 years has not been determined. Clinical correlation is essential. Serum or plasma urea nitroge n measurement (mass/volume)Ordered By: Dawit Abreu on 12-31-2022 Urea nitrogen [Mass/Vol] 17 mg/dL 7-18 [facility] Thin prep Papanicolaou smear with manual screeningOrdered By: Dawit Abreu on 12-31-2022 Thin prep Papanicolaou smear with manual screening 2 5-15 [facility] Basophil percentageOrdered B y: Dawit Abreu on 12-03-2022 Chloride [Moles/Vol] 105 mmol/L 98-107 [facility] Glucose [Mass/Vol] 95 mg/dL 74-106 [facility] Potassium [Moles/Vol] 3.9 mmol/L 3.5-5.1 [facility] Comment on above: Moderate Hemolysis, Result may be falsely increased. Sodium [Moles/Vol] 140 mmol/L 136-145 [facility] WBC (Bld) [#/Vol] 6.9 10*3/uL 4.4-11.0 [facility] Blood erythrocytes count (nu mber/volume)Ordered By: Dawit Abreu on 12-03-2022 RBC (Bld) [#/Vol] 4.61 10*6/uL 4.2-5.4 [facility] Blood hemoglobin measurement (mass/volume)Ordered By: Dawit Abreu on 12-03-2022 Hemoglobin (Bld) [Mass/Vol] 15.0 g/dL 12.0-15.0 [facility] Blood platelet mean volumeOr dered By: Dawit Abreu on 12-03-2022 Platelet mean volume (Bld) [Entitic vol] 11.5 fL 6.2-12.0 [facility] Determination of erythrocyte mean corpuscular volume (MCV)Ordered By: Dawit Abreu on 12-03-2022 MCV (RBC) [Entitic vol] 99.3 fL 81-99 [facility] Hematocrit Auto (Bld) [Volum e fraction]Ordered By: Dawit Abreu on 12-03-2022 Hematocrit (Bld) [Volume fraction] 45.8 % 37-47 [facility] Laboratory - Chemistry and C hemistry - challengeOrdered By: Dawit Abreu on 12-03-2022 CO2 [Moles/Vol] 30.0 mmol/L 21.0-32.0 [facility] Urea nitrogen/Creatinine [Mass ratio] 26.7 mg/mg 10-20 [facility] Laboratory - Hematology and Cell countsOrdered By: Dawit Abreu on 12-03-2022 Erythrocyte distribution width (RBC) [Entitic vol] 46.7 fL 35.1-43.9 [facility] Erythrocyte distribution width (RBC) [Ratio] 12.8 % 11.6-14.6 [facility] MCH (RBC) [Entitic mass] 32.5 pg 27.0-32.0 [facility] MCHC Auto (RBC) [Mass/Vol]Or dered By: Dawit Abreu on 12-03-2022 MCHC (RBC) [Mass/Vol] 32.8 g/dL 32-36 [facility] No Panel InformationOrdered By: Dawit Abreu on 12-03-2022 Estimated GFR (MDRD) Amer 107 mL/min >60 [facility] Comment on above: GFR Calc Estimated GFR (MDRD) Non-Af Amer 88 mL/min >60 [facility] Comment on above: Non- GFR Calc Platelets bldOrdered By: Yesica Abreu on 12-03-2022 Platelets (Bld) [#/Vol] 171 10*3/uL 150-450 [facility] Serum or plasma calcium heena urement (mass/volume)Ordered By: Dawit Abreu on 12-03-2022 Calcium [Mass/Vol] 8.9 mg/dL 8.5-10.1 [facility] Serum or plasma creatinine m easurement (mass/volume)Ordered By: Dawit Abreu on 12-03-2022 Creatinine [Mass/Vol] 0.75 mg/dL 0.55-1.02 [facility] Comment on above: The validity of the calculated GFR & GFRAA in patients over 70 years has not been determined. Clinical correlation is essential. Serum or plasma urea nitroge n measurement (mass/volume)Ordered By: Dawit Abreu on 12-03-2022 Urea nitrogen [Mass/Vol] 20 mg/dL 7-18 [facility] Thin prep Papanicolaou smear with manual screeningOrdered By: Dawit Abreu on 12-03-2022 Thin prep Papanicolaou smear with manual screening 5 5-15 [facility] Basophil percentageOrdered B y: Dawit Abreu on 11-05-2022 Chloride [Moles/Vol] 107 mmol/L 98-107 [facility] Glucose [Mass/Vol] 104 mg/dL 74-106 [facility] Comment on above: Fasting Glucose resu lt from 100 to 125 mg/dL suggests IMPAIRED HOMEOSTASIS per A.D.A. criteria. Potassium [Moles/Vol] 3.4 mmol/L 3.5-5.1 [facility] Sodium [Moles/Vol] 144 mmol/L 136-145 [facility] WBC (Bld) [#/Vol] 6.6 10*3/uL 4.4-11.0 [facility] Blood erythrocytes count (nu mber/volume)Ordered By: Dawit Abreu on 11-05-2022 RBC (Bld) [#/Vol] 4.26 10*6/uL 4.2-5.4 [facility] Blood hemoglobin measurement (mass/volume)Ordered By: Dawit Abreu on 11-05-2022 Hemoglobin (Bld) [Mass/Vol] 13.8 g/dL 12.0-15.0 [facility] Blood platelet mean volumeOr dered By: Dawit Abreu on 11-05-2022 Platelet mean volume (Bld) [Entitic vol] 11.4 fL 6.2-12.0 [facility] Determination of erythrocyte mean corpuscular volume (MCV)Ordered By: Dawit Abreu on 11-05-2022 MCV (RBC) [Entitic vol] 98.8 fL 81-99 [facility] Hematocrit Auto (Bld) [Volum e fraction]Ordered By: Dawit Abreu on 11-05-2022 Hematocrit (Bld) [Volume fraction] 42.1 % 37-47 [facility] Laboratory - Chemistry and C hemistry - challengeOrdered By: Dawit Abreu on 11-05-2022 CO2 [Moles/Vol] 33.0 mmol/L 21.0-32.0 [facility] Urea nitrogen/Creatinine [Mass ratio] 28.8 mg/mg 10-20 [facility] Laboratory - Hematology and Cell countsOrdered By: Dawit Abreu on 11-05-2022 Erythrocyte distribution width (RBC) [Entitic vol] 46.7 fL 35.1-43.9 [facility] Erythrocyte distribution width (RBC) [Ratio] 13.1 % 11.6-14.6 [facility] MCH (RBC) [Entitic mass] 32.4 pg 27.0-32.0 [facility] MCHC Auto (RBC) [Mass/Vol]Or dered By: Dawit Abreu on 11-05-2022 MCHC (RBC) [Mass/Vol] 32.8 g/dL 32-36 [facility] No Panel InformationOrdered By: Dawit Abreu on 11-05-2022 Estimated GFR (MDRD) Amer 95 mL/min >60 [facility] Comment on above: GFR Calc Estimated GFR (MDRD) Non-Af Amer 78 mL/min >60 [facility] Comment on above: Non- GFR Calc Platelets bldOrdered By: Yesica Abreu on 11-05-2022 Platelets (Bld) [#/Vol] 178 10*3/uL 150-450 [facility] Serum or plasma calcium heena urement (mass/volume)Ordered By: Dawit Abreu on 11-05-2022 Calcium [Mass/Vol] 9.1 mg/dL 8.5-10.1 [facility] Serum or plasma creatinine m easurement (mass/volume)Ordered By: Dawit Abreu on 11-05-2022 Creatinine [Mass/Vol] 0.83 mg/dL 0.55-1.02 [facility] Comment on above: The validity of the calculated GFR & GFRAA in patients over 70 years has not been determined. Clinical correlation is essential. Serum or plasma urea nitroge n measurement (mass/volume)Ordered By: Dawit Abreu on 11-05-2022 Urea nitrogen [Mass/Vol] 24 mg/dL 7-18 [facility] Thin prep Papanicolaou smear with manual screeningOrdered By: Dawit Abreu on 11-05-2022 Thin prep Papanicolaou smear with manual screening 4 5-15 [facility] 36on 10-31-2022 36 Recevied call from patient's nurse Carrie. She states they have to cancel patient's appointment due to lack of transportation. They are unable to secure transportation via transport services and patient's emergency contact is unable to transfer her as well. She states they are able to change SPT at facility and have an order to do so. Patient has no needs at this time. Appointment cancelled. Normal [facility] Basophil percentageOrdered B y: Dawit Abreu on 10-08-2022 Chloride [Moles/Vol] 105 mmol/L 98-107 [facility] Glucose [Mass/Vol] 92 mg/dL 74-106 [facility] Potassium [Moles/Vol] 3.6 mmol/L 3.5-5.1 [facility] Sodium [Moles/Vol] 142 mmol/L 136-145 [facility] WBC (Bld) [#/Vol] 6.6 10*3/uL 4.4-11.0 [facility] Blood erythrocytes count (nu mber/volume)Ordered By: Dawit Abreu on 10-08-2022 RBC (Bld) [#/Vol] 4.50 10*6/uL 4.2-5.4 [facility] Blood hemoglobin measurement (mass/volume)Ordered By: Dawit Abreu on 10-08-2022 Hemoglobin (Bld) [Mass/Vol] 14.7 g/dL 12.0-15.0 [facility] Blood platelet mean volumeOr dered By: Dawit Abreu on 10-08-2022 Platelet mean volume (Bld) [Entitic vol] 10.9 fL 6.2-12.0 [facility] Determination of erythrocyte mean corpuscular volume (MCV)Ordered By: Dawit Abreu on 10-08-2022 MCV (RBC) [Entitic vol] 100.2 fL 81-99 [facility] Hematocrit Auto (Bld) [Volum e fraction]Ordered By: Dawit Abreu on 10-08-2022 Hematocrit (Bld) [Volume fraction] 45.1 % 37-47 [facility] Laboratory - Chemistry and C hemistry - challengeOrdered By: Dawit Abreu on 10-08-2022 CO2 [Moles/Vol] 29.0 mmol/L 21.0-32.0 [facility] Urea nitrogen/Creatinine [Mass ratio] 18.9 mg/mg 10-20 [facility] Laboratory - Hematology and Cell countsOrdered By: Dawit Abreu on 10-08-2022 Erythrocyte distribution width (RBC) [Entitic vol] 49.8 fL 35.1-43.9 [facility] Erythrocyte distribution width (RBC) [Ratio] 13.4 % 11.6-14.6 [facility] MCH (RBC) [Entitic mass] 32.7 pg 27.0-32.0 [facility] MCHC Auto (RBC) [Mass/Vol]Or dered By: Dawit Abreu on 10-08-2022 MCHC (RBC) [Mass/Vol] 32.6 g/dL 32-36 [facility] No Panel InformationOrdered By: Dawit Abreu on 10-08-2022 Estimated GFR (MDRD) Amer 100 mL/min >60 [facility] Comment on above: GFR Calc Estimated GFR (MDRD) Non-Af Amer 83 mL/min >60 [facility] Comment on above: Non- GFR Calc Platelets bldOrdered By: Yesica Abreu on 10-08-2022 Platelets (Bld) [#/Vol] 216 10*3/uL 150-450 [facility] Serum or plasma calcium heena urement (mass/volume)Ordered By: Dawit Abreu on 10-08-2022 Calcium [Mass/Vol] 8.9 mg/dL 8.5-10.1 [facility] Serum or plasma creatinine m easurement (mass/volume)Ordered By: Daiwt Abreu on 10-08-2022 Creatinine [Mass/Vol] 0.79 mg/dL 0.55-1.02 [facility] Comment on above: The validity of the calculated GFR & GFRAA in patients over 70 years has not been determined. Clinical correlation is essential. Serum or plasma urea nitroge n measurement (mass/volume)Ordered By: Dawit Abreu on 10-08-2022 Urea nitrogen [Mass/Vol] 15 mg/dL 7-18 [facility] Thin prep Papanicolaou smear with manual screeningOrdered By: Dawit Abreu on 10-08-2022 Thin prep Papanicolaou smear with manual screening 8 5-15 [facility] 36on 10-02-2022 36 Phone call placed to facility spoke to Jhonathan. Appointment scheduled with JOSE . [facility] 36on 10-01-2022 36 Called [facility]. Sliver Cutter answered phone and transferred call to nurse Johnathan. Phone rang for 1 minute with no answer. Routing back to clinical to call again. Normal [facility] Calculi Analysis(Stone)on Calculi Composition See Note Normal [facility] Comment on above: Result Comment: Calc merly composed primarily of calcium phosphate (hydroxy- and carbonate- apatite). INTERPRETIVE INFORMATION: Calculi (Stone) analysis Calculi are the products of physiological processes that yield crystalline compounds in a matrix of biological compounds and blood. Matrix components are not reported. The clinically significant crystalline components identified in calculi specimens are reported. Gross description may not be consistent with composition determined by FTIR analysis. Performed By: [employer] [address] [place] [address] Pipe Caulker: Carolyne Siu MD Performed By: #### P T, APTT #### [address] [id number] Calculi Description See Note Normal [facility] Comment on above: Result Comment: Spec imen consists of numerous cespedes calculi fragments. Specimen was not received in the preferred dry state. The presence of liquid, blood, gel, or adhesive often delays analysis. The total weight is 1567 mg. Performed By: #### P T, APTT #### [facility] [address], [place] Calculi Mass 1567 mg Normal [facility] Comment on above: Performed By: #### P T, APTT #### [facility] [address], [place] Basic Metabolic Panelon 10-24-2021 Anion gap [Moles/Vol] 3 mmol/L Normal 3-13 [facility] Comment on above: Performed By: #### H EMOG BMP3M #### [place] [address] [address], [place] Calcium [Mass/Vol] 8.7 mg/dL Normal 8.4-10.4 [facility] Comment on above: Performed By: #### H EMOG BMP3M #### [facility] [address], [place] CO2 [Moles/Vol] 29 mmol/L Normal 22-30 [facility] Comment on above: Performed By: #### H EMOG BMP3M #### [place] [address] [address], [place] Glucose [Mass/Vol] 87 mg/dL Normal 70-100 [facility] Comment on above: Performed By: #### H EMOG BMP3M #### [place] [address] [address], [place] Urea nitrogen [Mass/Vol] 13 mg/dL Normal 9-20 [facility] Comment on above: Performed By: #### H EMOG BMP3M #### [place] [address] [address] [place], [place] Creatinine [Mass/Vol] 0.69 mg/dL Normal 0.52-1.25 [facility] Comment on above: Performed By: #### H EMOG BMP3M #### [address] eGFR OTHER > 90.0 Normal >60 [facility] Comment on above: Result Comment: KDIG O guidelines provide the following GFR categories: Stage GFR(ml/min/1.73 m2) Terms G1 >=90 Normal or high G2 60-89 Mildly decreased* G3a 45-59 Mildly to moderately decreased G3b 30-44 Moderately to severely decreased G4 15-29 Severely decreased G5 <15 Kidney failure *Relative to young adult level. In the absence of evidence of kidney damage, neither GFR category G1 nor G2 fulfill the criteria for CKD. The CKD-EPI equation is validated in individuals 18 years of age and older. Currently the best equation for estimating glomerular filtration rate (GFR) from serum creatinine in children is the Bedside Allen equation. It is less accurate in patients with extremes of muscle mass, restriction of dietary protein, ingestion of creatine, extra-renal metabolism of creatinine, or treatment with medications that affect renal tubular creatinine secretion. Performed By: #### H GAVI LOYOLA #### [address] GFR/1.73 sq M.predicted among blacks MDRD (S/P/Bld) [Vol rate/Area] mL/min/{1.73_m2} Normal >60 [facility] Comment on above: Performed By: #### H MOSES [id number] #### [address] Potassium [Moles/Vol] 3.7 mmol/L Normal 3.5-5.1 [facility] Comment on above: Performed By: #### H MOSES LOYOLA3M #### [address] Sodium [Moles/Vol] 136 mmol/L Normal 135-145 [facility] Comment on above: Performed By: #### H MOSES LOYOLA3M #### [address] Chloride [Moles/Vol] 103 mmol/L Normal 98-107 [facility] Comment on above: Performed By: #### H MOSES LOYOLA3M #### [facility] [address], [place] CULTURE URINEon 11-06-2021 CULTURE URINE CULTURE URINE --> Status: F No growth (<1,000 CFU/ml). Normal [facility] Comment on above: Performed By: #### P T, APTT #### [place] [address] [place], [place] Hemogramon 11-06-2021 Erythrocyte distribution width (RBC) [Ratio] 13.7 % Normal 11.5-14.5 [facility] Comment on above: Performed By: #### H EMOG BMP3M #### [address] Hematocrit (Bld) [Volume fraction] 35.9 % Normal 35.0-47.0 [facility] Comment on above: Performed By: #### H EMOG BMP3M #### [place] [address] [place], [place] Hemoglobin (Bld) [Mass/Vol] 11.9 g/dL Normal 11.7-16.0 [facility] Comment on above: Performed By: #### H EMOG BMP3M #### [address] MCH (RBC) [Entitic mass] 30.3 pg Normal 26.0-34.0 [facility] Comment on above: Performed By: #### H EMOG BMP3M #### [place] [address] [place], [place] MCHC 33.2 % Normal 32.0-36.0 [facility] Comment on above: Performed By: #### H EMOG BMP3M #### [address] MCV (RBC) [Entitic vol] 91.1 fL Normal 79.0-98.0 [facility] Comment on above: Performed By: #### H EMOG BMP3M #### [address] Platelet mean volume (Bld) [Entitic vol] 8.3 fL Normal 7.4-10.4 [facility] Comment on above: Performed By: #### H MOSES [id number] #### [facility] [address], [place] Platelets (Bld) [#/Vol] 200 10*3/uL Normal 140-440 [facility] Comment on above: Performed By: #### H MOSES [id number] #### [place] [address] [address] [place], [place] RBC (Bld) [#/Vol] 3.94 10*6/uL Normal 3.80-5.20 [facility] Comment on above: Performed By: #### H MOSES [id number] #### [place] [address] [address] [place], [place] WBC (Bld) [#/Vol] 4.4 10*3/uL Normal 3.6-10.7 [facility] Comment on above: Performed By: #### H MOSES [id number] #### [place] [address] [address] [place], [place] Basic Metabolic Panelon 10-24 Anion gap [Moles/Vol] 6 mmol/L Normal 3-13 [facility] Comment on above: Performed By: #### MOSES Daniel3Jo, HEMOG #### [place] [address] [address] [place], [place] Calcium [Mass/Vol] 8.9 mg/dL Normal 8.4-10.4 [facility] Comment on above: Performed By: #### Jo Orellana BMP3Jo, HEMOG #### [place] [address] [address], [place] CO2 [Moles/Vol] 28 mmol/L Normal 22-30 [facility] Comment on above: Performed By: #### Jo Orellana BMP3Jo, HEMOG #### [place] [address] [address] [place], [place] Glucose [Mass/Vol] 91 mg/dL Normal 70-100 [facility] Comment on above: Performed By: #### Jo Orellana BMP3M, HEMOG #### [facility] [address], [place] Urea nitrogen [Mass/Vol] 13 mg/dL Normal 9-20 [facility] Comment on above: Performed By: #### M MOSES Orellana3Jo, HEMOG #### [facility] [address], [place] Creatinine [Mass/Vol] 0.64 mg/dL Normal 0.52-1.25 [facility] Comment on above: Performed By: #### M GAVI Orellana, HEMOG #### [facility] [address], [place] eGFR OTHER > 90.0 Normal >60 [facility] Comment on above: Result Comment: KDIG O guidelines provide the following GFR categories: Stage GFR(ml/min/1.73 m2) Terms G1 >=90 Normal or high G2 60-89 Mildly decreased* G3a 45-59 Mildly to moderately decreased G3b 30-44 Moderately to severely decreased G4 15-29 Severely decreased G5 <15 Kidney failure *Relative to young adult level. In the absence of evidence of kidney damage, neither GFR category G1 nor G2 fulfill the criteria for CKD. The CKD-EPI equation is validated in individuals 18 years of age and older. Currently the best equation for estimating glomerular filtration rate (GFR) from serum creatinine in children is the Bedside Allen equation. It is less accurate in patients with extremes of muscle mass, restriction of dietary protein, ingestion of creatine, extra-renal metabolism of creatinine, or treatment with medications that affect renal tubular creatinine secretion. Performed By: #### M GAVI Orellana, HEMOG #### [facility] [address], [place] GFR/1.73 sq M.predicted among blacks MDRD (S/P/Bld) [Vol rate/Area] mL/min/{1.73_m2} Normal >60 [facility] Comment on above: Performed By: #### M GAVI Orellana, HEMOG #### [facility] [address], [place] Potassium [Moles/Vol] 3.2 mmol/L Low 3.5-5.1 [facility] Comment on above: Performed By: #### M G3, BMP3M, HEMOG #### [place] [address] [address] [place], [place] Sodium [Moles/Vol] 140 mmol/L Normal 135-145 [facility] Comment on above: Performed By: #### M G3, BMP3M, HEMOG #### [place] [address] [address] [place], [place] Chloride [Moles/Vol] 106 mmol/L Normal 98-107 [facility] Comment on above: Performed By: #### Jo G3, BMP3M, HEMOG #### [place] [address] [address], [place] Hemogramon 11-05-2021 Erythrocyte distribution width (RBC) [Ratio] 13.5 % Normal 11.5-14.5 [facility] Comment on above: Performed By: #### Jo G3, BMP3M, HEMOG #### [place] [address] [address] [place], [place] Hematocrit (Bld) [Volume fraction] 35.3 % Normal 35.0-47.0 [facility] Comment on above: Performed By: #### Jo G3, BMP3M, HEMOG #### [place] [address] [address] [place], [place] Hemoglobin (Bld) [Mass/Vol] 12.0 g/dL Normal 11.7-16.0 [facility] Comment on above: Performed By: #### Jo G3, BMP3M, HEMOG #### [place] [address] [address] [place], [place] MCH (RBC) [Entitic mass] 30.7 pg Normal 26.0-34.0 [facility] Comment on above: Performed By: #### Jo G3, BMP3M, HEMOG #### [place] [address] [address] [place], [place] MCHC 34.1 % Normal 32.0-36.0 [facility] Comment on above: Performed By: #### Jo G3, BMP3M, HEMOG #### [place] [address] [place] [id number] MCV (RBC) [Entitic vol] 90.1 fL Normal 79.0-98.0 [facility] Comment on above: Performed By: #### GAVI Daniel, HEMOG #### [place] [address] [address] [place], [place] Platelet mean volume (Bld) [Entitic vol] 8.5 fL Normal 7.4-10.4 [facility] Comment on above: Performed By: #### GAVI Daniel, HEMOG #### [place] [address] [address] [place], [place] Platelets (Bld) [#/Vol] 208 10*3/uL Normal 140-440 [facility] Comment on above: Performed By: #### GAVI Daniel, HEMOG #### [place] [address] [address] [place], [place] RBC (Bld) [#/Vol] 3.92 10*6/uL Normal 3.80-5.20 [facility] Comment on above: Performed By: #### GAVI Daniel, HEMOG #### [place] [address] [address] [place], [place] WBC (Bld) [#/Vol] 5.9 10*3/uL Normal 3.6-10.7 [facility] Comment on above: Performed By: #### GAVI Daniel, HEMOG #### [place] [address] [address] [place], [place] Magnesiumon 11-05-2021 Magnesium [Mass/Vol] 2.0 mg/dL Normal 1.6-2.3 [facility] Comment on above: Performed By: #### GAVI Daniel, HEMOG #### [place] [address] [address], [place] [id number] 11-05-2021 SARS-CoV-2 (COVID-19) RNA CHACE+probe Ql (Unsp spec) SARS-CoV-2 --> Status: F Not Detected. Expected result: Not Detected _ Method: Real-time, RT-PCR Negative results do not preclude SARS-CoV-2 infection and should not be used as the sole basis for treatment or other patient management decisions. This assay was developed by [employer] and distributed under an Emergency Use Authorization (EUA) granted by the FDA for the qualitative detection of SARS-CoV-2 nucleic acid. Provider and patient fact sheets can be found at https://www.[facility].gov/medi a/417973/download and https://www.[facility].gov/medi a/597300/download. Expected result: Not Detected _ Method: Real-time, RT-PCR Negative results do not preclude SARS-CoV-2 infection and should not be used as the sole basis for treatment or other patient management decisions. This assay was developed by [employer] and distributed under an Emergency Use Authorization (EUA) granted by the FDA for the qualitative detection of SARS-CoV-2 nucleic acid. Provider and patient fact sheets can be found at https://www.[facility].gov/medi a/890336/download and https://www.[facility].gov/medi a/928988/download. Normal [facility] Comment on above: Performed By: #### P T, APTT #### [facility] [facility] [address], [place] Basic Metabolic Panelon 10-24 Calcium [Mass/Vol] 8.6 mg/dL Normal 8.4-10.4 [facility] Comment on above: Performed By: #### B MP3M, HEMOG #### [facility] [address] [place] [address] Glucose [Mass/Vol] 140 mg/dL High 70-100 [facility] Comment on above: Performed By: #### B MP3M, HEMOG #### [facility] [address], [place] Anion gap [Moles/Vol] 5 mmol/L Normal 3-13 [facility] Comment on above: Performed By: #### B MP3M, HEMOG #### [place] [address], [place] CO2 [Moles/Vol] 27 mmol/L Normal 22-30 [facility] Comment on above: Performed By: #### B MP3M, HEMOG #### [address] Creatinine [Mass/Vol] 0.74 mg/dL Normal 0.52-1.25 [facility] Comment on above: Performed By: #### Frederick TILLMAN HEMOG #### [address] eGFR OTHER > 90.0 Normal >60 [facility] Comment on above: Result Comment: KDIG O guidelines provide the following GFR categories: Stage GFR(ml/min/1.73 m2) Terms G1 >=90 Normal or high G2 60-89 Mildly decreased* G3a 45-59 Mildly to moderately decreased G3b 30-44 Moderately to severely decreased G4 15-29 Severely decreased G5 <15 Kidney failure *Relative to young adult level. In the absence of evidence of kidney damage, neither GFR category G1 nor G2 fulfill the criteria for CKD. The CKD-EPI equation is validated in individuals 18 years of age and older. Currently the best equation for estimating glomerular filtration rate (GFR) from serum creatinine in children is the Bedside Allen equation. It is less accurate in patients with extremes of muscle mass, restriction of dietary protein, ingestion of creatine, extra-renal metabolism of creatinine, or treatment with medications that affect renal tubular creatinine secretion. Performed By: #### Frederick TILLMAN HEMOG #### [address] GFR/1.73 sq M.predicted among blacks MDRD (S/P/Bld) [Vol rate/Area] mL/min/{1.73_m2} Normal >60 [facility] Comment on above: Performed By: #### Frederick TILLMAN HEMOG #### [address] Urea nitrogen [Mass/Vol] 21 mg/dL High 9-20 [facility] Comment on above: Performed By: #### Frederick TILLMAN HEMOG #### [address] Chloride [Moles/Vol] 103 mmol/L Normal 98-107 [facility] Comment on above: Performed By: #### Frederick TILLMAN HEMOG #### [address] [place] Potassium [Moles/Vol] 4.0 mmol/L Normal 3.5-5.1 [facility] Comment on above: Performed By: #### B MP3M, HEMOG #### [place] [address], [place] Sodium [Moles/Vol] 135 mmol/L Normal 135-145 [facility] Comment on above: Performed By: #### B MP3M, HEMOG #### [place] [address], [place] Hemogramon 11-04-2021 Erythrocyte distribution width (RBC) [Ratio] 13.5 % Normal 11.5-14.5 [facility] Comment on above: Performed By: #### B MP3M, HEMOG #### [place] [address] [place], [place] Hematocrit (Bld) [Volume fraction] 35.8 % Normal 35.0-47.0 [facility] Comment on above: Performed By: #### B MP3M, HEMOG #### [place] [address], [place] Hemoglobin (Bld) [Mass/Vol] 12.1 g/dL Normal 11.7-16.0 [facility] Comment on above: Performed By: #### B MP3M, HEMOG #### [place] [address], [place] MCH (RBC) [Entitic mass] 30.3 pg Normal 26.0-34.0 [facility] Comment on above: Performed By: #### B MP3M, HEMOG #### [place] [address], [place] MCHC 33.6 % Normal 32.0-36.0 [facility] Comment on above: Performed By: #### B MP3M, HEMOG #### [place] [address], [place] MCV (RBC) [Entitic vol] 89.9 fL Normal 79.0-98.0 [facility] Comment on above: Performed By: #### B MP3M, HEMOG #### [facility] [address], [place] Platelet mean volume (Bld) [Entitic vol] 7.8 fL Normal 7.4-10.4 [facility] Comment on above: Performed By: #### B MP3M, HEMOG #### [facility] [address], [place] Platelets (Bld) [#/Vol] 229 10*3/uL Normal 140-440 [facility] Comment on above: Performed By: #### B MP3M, HEMOG #### [facility] [address], [place] RBC (Bld) [#/Vol] 3.98 10*6/uL Normal 3.80-5.20 [facility] Comment on above: Performed By: #### B MP3M, HEMOG #### [facility] [address], [place] WBC (Bld) [#/Vol] 7.5 10*3/uL Normal 3.6-10.7 [facility] Comment on above: Performed By: #### B MP3M, HEMOG #### [facility] [address], [place] APTTon 11-03-2021 aPTT Coag (Bld) [Time] 32.0 s High 20.0-30.5 [facility] Comment on above: Result Comment: NOTE : The therapeutic time for Heparin anticoagulation, based on Xa activity inhibition, is an APTT of 46-80 seconds. Performed By: #### P T, APTT #### [facility] [address], [place] Op Noteon 11-03-2021 Op Note PreOp Dx neurogenic bladder PostOp Dx Same and bladder stones Operation Cystoscopy, cystolitholapaxy and insertion of suprapubic tube Surgeon Brendon Coello MD Assist Jhon IRELAND EBL Minimal Drains none Schmitt 16 F SPT Specimen none Condition To PACU This is a 46 y.o. patient who presents with a neurogenic bladder, she desires SPT. Patient was brought to the operating room. A thorough time out was performed and everyone present was in agreement. Patient was placed on OR table. Anesthesia and lines were maintained by the anesthesia team. Patient was placed in the dorsal lithotomy position. Prepped and draped in usual fashion. Pressure points were padded. A cystourethroscope was inserted through the urethra and the bladder was inspected. 3 stones were seen in the base of the bladder, all approximately 1.0cm. The 500 micron fiber was needed to laser the stones and fragments them. They were soft, total of 3 stones were lasered approximately 3.0cm total. 2 fingerbreaths above the pubic symphysis a small incision was made. Spinal needle was used locate the tract to the bladder. campbells trocar was used and a 16F schmitt was placed as a Suprapubic tube. Hemostasis looked excellent. The bladder was emptied and patient awoken from anesthesia. Normal [facility] Prothrombin Timeon 2 INR 1.1 Normal 0.9-1.1 [facility] Comment on above: Result Comment: Tulio mmended Anticoagulant Therapy: SEE BELOW ----- INR of 2.0 - 3.0 : - Prophylaxis of Venous Thrombosis (high-risk surgery) - Treatment of Venous Thrombosis - Treatment of Pulmonary Embolism (Includes tissue heart valves, Acute Myocardial Infarction to prevent systemic embolism, Valvular Heart Disease, and Atrial Fibrillation) ----- INR of 2.5 - 3.5 : - Mechanical Prosthetic Valves (high risk) - If oral anticoagulant therapy is used to prevent Myocardial Infarction Performed By: #### P T, APTT #### [facility] [employer] [facility] [address] [place] [address] PT Coag (PPP) [Time] 11.3 s Normal 9.0-12.0 [facility] [employer] [facility] Comment on above: Result Comment: . Performed By: #### P T, APTT #### [facility] [employer] [facility] [address] [place] [address] Basic Metabolic Panelon Calcium [Mass/Vol] 8.6 mg/dL Normal 8.4-10.4 [facility] Comment on above: Performed By: #### P HOS3, MG3, HEMDF, LFT3, BMP3M #### [facility] [address] [place] [address] Anion gap [Moles/Vol] 5 mmol/L Normal 3-13 [facility] Comment on above: Performed By: #### P HOS3, MG3, HEMDF, LFT3, BMP3M #### [facility] [address] [place] [address] CO2 [Moles/Vol] 26 mmol/L Normal 22-30 [facility] Comment on above: Performed By: #### P HOS3, MG3, HEMDF, LFT3, BMP3M #### [facility] [address] [place] [address] Creatinine [Mass/Vol] 0.61 mg/dL Normal 0.52-1.25 [facility] Comment on above: Performed By: #### P HOS3, MG3, HEMDF, LFT3, BMP3M #### [facility] [address] [place] [address] eGFR OTHER > 90.0 Normal >60 [facility] Comment on above: Result Comment: KDIG O guidelines provide the following GFR categories: Stage GFR(ml/min/1.73 m2) Terms G1 >=90 Normal or high G2 60-89 Mildly decreased* G3a 45-59 Mildly to moderately decreased G3b 30-44 Moderately to severely decreased G4 15-29 Severely decreased G5 <15 Kidney failure *Relative to young adult level. In the absence of evidence of kidney damage, neither GFR category G1 nor G2 fulfill the criteria for CKD. The CKD-EPI equation is validated in individuals 18 years of age and older. Currently the best equation for estimating glomerular filtration rate (GFR) from serum creatinine in children is the Bedside Allen equation. It is less accurate in patients with extremes of muscle mass, restriction of dietary protein, ingestion of creatine, extra-renal metabolism of creatinine, or treatment with medications that affect renal tubular creatinine secretion. Performed By: #### P HOS3, MG3, HEMDF, LFT3, BMP3M #### [facility] [address] [place] [address] GFR/1.73 sq M.predicted among blacks MDRD (S/P/Bld) [Vol rate/Area] mL/min/{1.73_m2} Normal >60 [facility] Comment on above: Performed By: #### P HOS3, MG3, HEMDF, LFT3, BMP3M #### [facility] [address] [place] [address] Glucose [Mass/Vol] 74 mg/dL Normal 70-100 [facility] Comment on above: Performed By: #### P HOS3, MG3, HEMDF, LFT3, BMP3M #### [facility] [address] [place] [address] Urea nitrogen [Mass/Vol] 12 mg/dL Normal 9-20 [facility] Comment on above: Performed By: #### P HOS3, MG3, HEMDF, LFT3, BMP3M #### [facility] [address] [place] [address] Potassium [Moles/Vol] 3.4 mmol/L Low 3.5-5.1 [facility] Comment on above: Performed By: #### P HOS3, MG3, HEMDF, LFT3, BMP3M #### [facility] [address] [place] [address] Sodium [Moles/Vol] 137 mmol/L Normal 135-145 [facility] Comment on above: Performed By: #### P HOS3, MG3, HEMDF, LFT3, BMP3M #### [facility] [address] [place] [address] Chloride [Moles/Vol] 106 mmol/L Normal 98-107 [facility] Comment on above: Performed By: #### P HOS3, MG3, HEMDF, LFT3, BMP3M #### [facility] [address] [place] [address] CULTURE URINEon 10-27-2021 CULTURE URINE CULTURE URINE --> Status: F Multiple organisms, no one type predominant, suggestive of collection contamination or delayed transport to laboratory. Recollect if clinically indicated. collection contamination or delayed transport to laboratory. Recollect if clinically indicated. Normal [facility] Comment on above: Performed By: #### M G3, TROPN, LFT3, BMP3M, PHOS3, HEMDF #### [facility] [address] [place] [address] Hemogram w/ Autodiffon 10-27 Abs Baso Cnt 0.0 10*3/uL Normal 0.0-0.2 [facility] Comment on above: Performed By: #### P HOS3, MG3, HEMDF, LFT3, BMP3M #### [facility] [address] [place] [address] Abs Neutrophile Cnt 3.3 10*3/uL Normal 1.8-7.0 [facility] Comment on above: Performed By: #### P HOS3, MG3, HEMDF, LFT3, BMP3M #### [facility] [address] [place] [address] Basophils/100 WBC (Bld) 0.7 % Normal 0.0-2.0 [facility] Comment on above: Performed By: #### P HOS3, MG3, HEMDF, LFT3, BMP3M #### [facility] [address] [place] [address] Eosinophils (Bld) [#/Vol] 0.1 10*3/uL Normal 0.0-0.5 [facility] Comment on above: Performed By: #### P HOS3, MG3, HEMDF, LFT3, BMP3M #### [facility] [address] [place] [address] Eosinophils/100 WBC (Bld) 2.0 % Normal 1.0-6.0 [facility] Comment on above: Performed By: #### P HOS3, MG3, HEMDF, LFT3, BMP3M #### [facility] [address] [place] [address] Erythrocyte distribution width (RBC) [Ratio] 13.9 % Normal 11.5-14.5 [facility] Comment on above: Performed By: #### P HOS3, MG3, HEMDF, LFT3, BMP3M #### [facility] [address] [place] [address] Granulocytes/100 WBC (Bld) 60.7 % Normal 40.0-80.0 [facility] Comment on above: Performed By: #### P HOS3, MG3, HEMDF, LFT3, BMP3M #### [facility] [address] [place] [address] Hematocrit (Bld) [Volume fraction] 31.5 % Low 35.0-47.0 [facility] Comment on above: Performed By: #### P HOS3, MG3, HEMDF, LFT3, BMP3M #### [facility] [address] [place] [address] Hemoglobin (Bld) [Mass/Vol] 10.6 g/dL Low 11.7-16.0 [facility] Comment on above: Performed By: #### P HOS3, MG3, HEMDF, LFT3, BMP3M #### [facility] [address] [place] [address] Lymphocytes (Bld) [#/Vol] 1.7 10*3/uL Normal 1.0-4.3 [facility] Comment on above: Performed By: #### P HOS3, MG3, HEMDF, LFT3, BMP3M #### [place] [address] [place] [address] Lymphocytes/100 WBC (Bld) 31.2 % Normal 20.0-40.0 [facility] Comment on above: Performed By: #### P HOS3, MG3, HEMDF, LFT3, BMP3M #### [place] [address] [place] [address] MCH (RBC) [Entitic mass] 31.3 pg Normal 26.0-34.0 [facility] Comment on above: Performed By: #### P HOS3, MG3, HEMDF, LFT3, BMP3M #### [facility] [address] [place] [address] MCHC 33.7 % Normal 32.0-36.0 [facility] Comment on above: Performed By: #### P HOS3, MG3, HEMDF, LFT3, BMP3M #### [facility] [address] [place] [address] MCV (RBC) [Entitic vol] 93.0 fL Normal 79.0-98.0 [facility] Comment on above: Performed By: #### P HOS3, MG3, HEMDF, LFT3, BMP3M #### [place] [address] [place] [address] Monocytes (Bld) [#/Vol] 0.3 10*3/uL Normal 0.0-0.8 [facility] Comment on above: Performed By: #### P HOS3, MG3, HEMDF, LFT3, BMP3M #### [facility] [address] [place] [address] Monocytes/100 WBC (Bld) 5.4 % Normal 2.0-10.0 [facility] Comment on above: Performed By: #### P HOS3, MG3, HEMDF, LFT3, BMP3M #### [facility] [address] [place] [address] Platelet mean volume (Bld) [Entitic vol] 8.1 fL Normal 7.4-10.4 [facility] Comment on above: Performed By: #### P HOS3, MG3, HEMDF, LFT3, BMP3M #### [facility] [address] [place] [address] Platelets (Bld) [#/Vol] 165 10*3/uL Normal 140-440 [facility] Comment on above: Performed By: #### P HOS3, MG3, HEMDF, LFT3, BMP3M #### [facility] [address] [place] [address] RBC (Bld) [#/Vol] 3.38 10*6/uL Low 3.80-5.20 [facility] Comment on above: Performed By: #### P HOS3, MG3, HEMDF, LFT3, BMP3M #### [facility] [address] [place] [address] WBC (Bld) [#/Vol] 5.5 10*3/uL Normal 3.6-10.7 [facility] Comment on above: Performed By: #### P HOS3, MG3, HEMDF, LFT3, BMP3M #### [facility] [address] [place] [address] Hepatic Functionon 2 ALT [Catalytic activity/Vol] 24 U/L Normal 0-34 [facility] Comment on above: Result Comment: The ALT test is performed by an updated assay method. Please note that the reference intervals have been changed and are now sex specific. Performed By: #### M G3, TROPN, LFT3, BMP3M, PHOS3, HEMDF #### [facility] [address] [place] [address] ALP [Catalytic activity/Vol] 125 U/L Normal 38-126 [facility] Comment on above: Performed By: #### M G3, TROPN, LFT3, BMP3M, PHOS3, HEMDF #### [facility] [address] [place] [address] AST [Catalytic activity/Vol] 39 U/L Normal 15-46 [facility] Comment on above: Performed By: #### M G3, TROPN, LFT3, BMP3M, PHOS3, HEMDF #### [facility] [address] [place] [address] Bilirubin [Mass/Vol] 0.7 mg/dL Normal 0.2-1.3 [facility] Comment on above: Performed By: #### M G3, TROPN, LFT3, BMP3M, PHOS3, HEMDF #### [facility] [address] [place] [address] Bilirubin.indirect [Mass/Vol] 0.0 mg/dL Normal 0.0-0.3 [facility] Comment on above: Performed By: #### M G3, TROPN, LFT3, BMP3M, PHOS3, HEMDF #### [facility] [address] [place] [address] Protein [Mass/Vol] 6.2 g/dL Low 6.3-8.2 [facility] Comment on above: Performed By: #### M G3, TROPN, LFT3, BMP3M, PHOS3, HEMDF #### [facility] [address] [place] [address] Albumin [Mass/Vol] 3.1 g/dL Low 3.5-5.0 [facility] Comment on above: Performed By: #### M G3, TROPN, LFT3, BMP3M, PHOS3, HEMDF #### [facility] [address] [place] [address] Magnesiumon 10-27-2021 Magnesium [Mass/Vol] 1.8 mg/dL Normal 1.6-2.3 [facility] Comment on above: Performed By: #### P HOS3, MG3, HEMDF, LFT3, BMP3M #### [facility] [address] [place] [address] Phosphoruson 10-27-2021 Phosphate [Mass/Vol] 2.3 mg/dL Low 2.5-4.5 [facility] Comment on above: Performed By: #### P HOS3, MG3, HEMDF, LFT3, BMP3M #### [facility] [address] [place] [address] Basic Metabolic Panelon Calcium [Mass/Vol] 8.1 mg/dL Low 8.4-10.4 [facility] Comment on above: Performed By: #### M G3, TROPN, LFT3, BMP3M, PHOS3, HEMDF #### [facility] [address] [place] [address] Anion gap [Moles/Vol] 3 mmol/L Normal 3-13 [facility] Comment on above: Performed By: #### M G3, TROPN, LFT3, BMP3M, PHOS3, HEMDF #### [facility] [address] [place] [address] CO2 [Moles/Vol] 25 mmol/L Normal 22-30 [facility] Comment on above: Performed By: #### M G3, TROPN, LFT3, BMP3M, PHOS3, HEMDF #### [facility] [address] [place] [address] Glucose [Mass/Vol] 95 mg/dL Normal 70-100 [facility] Comment on above: Performed By: #### M G3, TROPN, LFT3, BMP3M, PHOS3, HEMDF #### [facility] [address] [place] [address] Urea nitrogen [Mass/Vol] 17 mg/dL Normal 9-20 [facility] Comment on above: Performed By: #### M G3, TROPN, LFT3, BMP3M, PHOS3, HEMDF #### [facility] [address] [place] [address] Creatinine [Mass/Vol] 0.68 mg/dL Normal 0.52-1.25 [facility] Comment on above: Performed By: #### M G3, TROPN, LFT3, BMP3M, PHOS3, HEMDF #### [facility] [address] [place] [address] eGFR OTHER > 90.0 Normal >60 [facility] Comment on above: Result Comment: KDIG O guidelines provide the following GFR categories: Stage GFR(ml/min/1.73 m2) Terms G1 >=90 Normal or high G2 60-89 Mildly decreased* G3a 45-59 Mildly to moderately decreased G3b 30-44 Moderately to severely decreased G4 15-29 Severely decreased G5 <15 Kidney failure *Relative to young adult level. In the absence of evidence of kidney damage, neither GFR category G1 nor G2 fulfill the criteria for CKD. The CKD-EPI equation is validated in individuals 18 years of age and older. Currently the best equation for estimating glomerular filtration rate (GFR) from serum creatinine in children is the Bedside Allen equation. It is less accurate in patients with extremes of muscle mass, restriction of dietary protein, ingestion of creatine, extra-renal metabolism of creatinine, or treatment with medications that affect renal tubular creatinine secretion. Performed By: #### M G3, TROPN, LFT3, BMP3M, PHOS3, HEMDF #### [facility] [address] [place] [address] GFR/1.73 sq M.predicted among blacks MDRD (S/P/Bld) [Vol rate/Area] mL/min/{1.73_m2} Normal >60 [facility] Comment on above: Performed By: #### M G3, TROPN, LFT3, BMP3M, PHOS3, HEMDF #### [facility] [address] [place] [address] Chloride [Moles/Vol] 106 mmol/L Normal 98-107 [facility] Comment on above: Performed By: #### M G3, TROPN, LFT3, BMP3M, PHOS3, HEMDF #### [facility] [address] [place] [address] Potassium [Moles/Vol] 3.6 mmol/L Normal 3.5-5.1 [facility] Comment on above: Performed By: #### M G3, TROPN, LFT3, BMP3M, PHOS3, HEMDF #### [facility] [address] [place] [address] Sodium [Moles/Vol] 134 mmol/L Low 135-145 [facility] Comment on above: Performed By: #### M G3, TROPN, LFT3, BMP3M, PHOS3, HEMDF #### [facility] [address] [place] [address] Fentanyl Screen, Urineon Fentanyl Screen, Urn Positive Normal Negative [facility] Comment on above: Result Comment: Fent anyl has been screened for by Immunoassay at a 1 ng/ml threshold. POSITIVE results are not confirmed by a more specific alternative method unless requested. If confirmation is needed, request confirmation under separate order. NOTE: These results are for medical treatment only. Analysis performed using non-forensic procedures. Performed By: #### M G3, TROPN, LFT3, BMP3M, PHOS3, HEMDF #### [facility] [address] [place] [address] Hemogram w/ Autodiffon 10-26 Abs Baso Cnt 0.1 10*3/uL Normal 0.0-0.2 [facility] Comment on above: Performed By: #### M G3, TROPN, LFT3, BMP3M, PHOS3, HEMDF #### [facility] [address] [place] [address] Abs Neutrophile Cnt 5.1 10*3/uL Normal 1.8-7.0 [facility] Comment on above: Performed By: #### M G3, TROPN, LFT3, BMP3M, PHOS3, HEMDF #### [facility] [address] [place] [address] Basophils/100 WBC (Bld) 0.6 % Normal 0.0-2.0 [facility] Comment on above: Performed By: #### M G3, TROPN, LFT3, BMP3M, PHOS3, HEMDF #### [facility] [address] [place] [address] Eosinophils (Bld) [#/Vol] 0.0 10*3/uL Normal 0.0-0.5 [facility] Comment on above: Performed By: #### M G3, TROPN, LFT3, BMP3M, PHOS3, HEMDF #### [facility] [address] [place] [address] Eosinophils/100 WBC (Bld) 0.2 % Low 1.0-6.0 [facility] Comment on above: Performed By: #### M G3, TROPN, LFT3, BMP3M, PHOS3, HEMDF #### [facility] [address] [place] [address] Erythrocyte distribution width (RBC) [Ratio] 13.7 % Normal 11.5-14.5 [facility] Comment on above: Performed By: #### M G3, TROPN, LFT3, BMP3M, PHOS3, HEMDF #### [facility] [address] [place] [address] Granulocytes/100 WBC (Bld) 64.2 % Normal 40.0-80.0 [facility] Comment on above: Performed By: #### M G3, TROPN, LFT3, BMP3M, PHOS3, HEMDF #### [facility] [address] [place] [address] Hematocrit (Bld) [Volume fraction] 32.2 % Low 35.0-47.0 [facility] Comment on above: Performed By: #### M G3, TROPN, LFT3, BMP3M, PHOS3, HEMDF #### [facility] [address] [place] [address] Hemoglobin (Bld) [Mass/Vol] 10.8 g/dL Low 11.7-16.0 [facility] Comment on above: Performed By: #### M G3, TROPN, LFT3, BMP3M, PHOS3, HEMDF #### [facility] [address] [place] [address] Lymphocytes (Bld) [#/Vol] 2.3 10*3/uL Normal 1.0-4.3 [facility] Comment on above: Performed By: #### M G3, TROPN, LFT3, BMP3M, PHOS3, HEMDF #### [facility] [address] [place] [address] Lymphocytes/100 WBC (Bld) 28.8 % Normal 20.0-40.0 [facility] Comment on above: Performed By: #### M G3, TROPN, LFT3, BMP3M, PHOS3, HEMDF #### [facility] [address] [place] [address] MCH (RBC) [Entitic mass] 31.0 pg Normal 26.0-34.0 [facility] Comment on above: Performed By: #### M G3, TROPN, LFT3, BMP3M, PHOS3, HEMDF #### [facility] [address] [place] [address] MCHC 33.4 % Normal 32.0-36.0 [facility] Comment on above: Performed By: #### M G3, TROPN, LFT3, BMP3M, PHOS3, HEMDF #### [facility] [address] [place] [address] MCV (RBC) [Entitic vol] 92.7 fL Normal 79.0-98.0 [facility] Comment on above: Performed By: #### M G3, TROPN, LFT3, BMP3M, PHOS3, HEMDF #### [facility] [address] [place] [address] Monocytes (Bld) [#/Vol] 0.5 10*3/uL Normal 0.0-0.8 [facility] Comment on above: Performed By: #### M G3, TROPN, LFT3, BMP3M, PHOS3, HEMDF #### [facility] [address] [place] [address] Monocytes/100 WBC (Bld) 6.2 % Normal 2.0-10.0 [facility] Comment on above: Performed By: #### M G3, TROPN, LFT3, BMP3M, PHOS3, HEMDF #### [facility] [address] [place] [address] Platelet mean volume (Bld) [Entitic vol] 7.9 fL Normal 7.4-10.4 [facility] Comment on above: Performed By: #### M G3, TROPN, LFT3, BMP3M, PHOS3, HEMDF #### [facility] [address] [place] [address] Platelets (Bld) [#/Vol] 222 10*3/uL Normal 140-440 [facility] Comment on above: Performed By: #### M G3, TROPN, LFT3, BMP3M, PHOS3, HEMDF #### [facility] [address] [place] [address] RBC (Bld) [#/Vol] 3.47 10*6/uL Low 3.80-5.20 [facility] Comment on above: Performed By: #### M G3, TROPN, LFT3, BMP3M, PHOS3, HEMDF #### [facility] [address] [place] [address] WBC (Bld) [#/Vol] 8.0 10*3/uL Normal 3.6-10.7 [facility] Comment on above: Performed By: #### M G3, TROPN, LFT3, BMP3M, PHOS3, HEMDF #### [facility] [address] [place] [address] Hepatic Functionon 2 ALP [Catalytic activity/Vol] 143 U/L High 38-126 [facility] Comment on above: Performed By: #### M G3, TROPN, LFT3, BMP3M, PHOS3, HEMDF #### [facility] [address] [place] [address] ALT [Catalytic activity/Vol] 29 U/L Normal 0-34 [facility] Comment on above: Result Comment: The ALT test is performed by an updated assay method. Please note that the reference intervals have been changed and are now sex specific. Performed By: #### M G3, TROPN, LFT3, BMP3M, PHOS3, HEMDF #### [facility] [address] [place] [address] AST [Catalytic activity/Vol] 44 U/L Normal 15-46 [facility] Comment on above: Performed By: #### M G3, TROPN, LFT3, BMP3M, PHOS3, HEMDF #### [facility] [address] [place] [address] Bilirubin [Mass/Vol] 0.3 mg/dL Normal 0.2-1.3 [facility] Comment on above: Performed By: #### M G3, TROPN, LFT3, BMP3M, PHOS3, HEMDF #### [facility] [address] [place] [address] Bilirubin.indirect [Mass/Vol] 0.0 mg/dL Normal 0.0-0.3 [facility] Comment on above: Performed By: #### M G3, TROPN, LFT3, BMP3M, PHOS3, HEMDF #### [facility] [address] [place] [address] Protein [Mass/Vol] 6.2 g/dL Low 6.3-8.2 [facility] Comment on above: Performed By: #### M G3, TROPN, LFT3, BMP3M, PHOS3, HEMDF #### [facility] [address] [place] [address] Albumin [Mass/Vol] 3.2 g/dL Low 3.5-5.0 [facility] Comment on above: Performed By: #### M G3, TROPN, LFT3, BMP3M, PHOS3, HEMDF #### [facility] [address] [place] [address] Lactic Acidon 10-26-2021 Lactate [Moles/Vol] 0.7 mmol/L Normal 0.7-2.0 [facility] Comment on above: Performed By: #### M G3, TROPN, LFT3, BMP3M, PHOS3, HEMDF #### [facility] [address] [place] [address] Magnesiumon 10-26-2021 Magnesium [Mass/Vol] 1.9 mg/dL Normal 1.6-2.3 [facility] Comment on above: Performed By: #### M G3, TROPN, LFT3, BMP3M, PHOS3, HEMDF #### [facility] [address] [place] [address] Phosphoruson 10-26-2021 Phosphate [Mass/Vol] 3.2 mg/dL Normal 2.5-4.5 [facility] Comment on above: Performed By: #### M G3, TROPN, LFT3, BMP3M, PHOS3, HEMDF #### [facility] [address] [place] [address] Troponin Ion 10-26-2021 Troponin I.cardiac [Mass/Vol] 0.314 ng/mL High 0.000-0.034 [facility] Comment on above: Result Comment: . Performed By: #### M G3, TROPN, LFT3, BMP3M, PHOS3, HEMDF #### [facility] [address] [place] [address] Troponin I.cardiac [Mass/Vol] 0.392 ng/mL High 0.000-0.034 [facility] Comment on above: Result Comment: . Performed By: #### Jo G3, TROPN, LFT3, BMP3M, PHOS3, HEMDF #### [facility] [address] [place] [address] CR Chest Portableon 10-25-19 22 CR Chest Portable Patient Name: KATARZYNA VARGAS Diagnostic Radiology ACCESSION EXAM DATE/TIME PROCEDURE ORDERING PROVIDER [id number] 10/25/2021 16:45 EST CR Chest Portable MD MATUTE JESSE CPT code 66785 Reason For Exam (CR Chest Portable) Short of breath Report CLINICAL INDICATION: Short of breath COMPARISON: 04/10/2020, 08/19/2019 TECHNIQUE: Single portable AP radiograph of the chest. FINDINGS: LUNGS/PLEURA:Clear with no acute infiltrate or effusion. No pneumothorax. The trachea is midline. MEDIASTINUM:Heart size and mediastinal contours are normal. VASCULARITY: Mild pulmonary vascular congestion. BONES:Unremarkable SUPPORT LINES: None OTHER: IMPRESSION: Lungs clear with no acute infiltrate or effusion. Mild pulmonary vascular congestion. Report Dictated on Final Dictating Physician: MD LANDA YUN ROBERT Signed Date and Time: 10/25/2021 5:09 pm Signed by: MD LANDA YUN ROBERT Transcribed Date and Time: 10/25/2021 5:11 Normal [facility] CT Head or Brain w/o Contras ton 10-25-2021 CT Head or Brain w/o Contrast [facility]: [id number] ACCESSION EXAM DATE/TIME PROCEDURE ORDERING PROVIDER [id number] 10/25/2021 17:[address] Head or Brain w/o MD GIOVANI, AYAH Contrast CPT code 71033 Reason For Exam (CT Head or Brain w/o Contrast) Headache Report CT BRAIN WITHOUT CONTRAST CLINICAL INDICATION: Headache TECHNIQUE: CT scan of the brain without IV contrast. Multiplanar reformations. COMPARISON: None. FINDINGS: Motion artifact limits examination somewhat. No apparent mass or mass effect, hemorrhage, midline shift or hydrocephalus. No evidence of acute cortical infarct. No abnormal, extra-axial fluid or air collection. Osseous calvarium grossly intact. IMPRESSION: 1. No acute intracranial findings. Report Dictated on Workstation: [id number] Final Dictating Physician: MD FARRELL WENDELL Signed Date and Time: 10/25/2021 5:21 pm Signed by: MD FARRELL WENDELL Transcribed Date and Time: 10/25/2021 5:22 Normal [facility] Comp Metabolic Panelon 10-25 ALT [Catalytic activity/Vol] 40 U/L High 0-34 [facility] Comment on above: Result Comment: The ALT test is performed by an updated assay method. Please note that the reference intervals have been changed and are now sex specific. Performed By: #### M G3, TROPN, LFT3, BMP3M, PHOS3, HEMDF #### [facility] [address] [place] [address] ALP [Catalytic activity/Vol] 169 U/L High 38-126 [facility] Comment on above: Performed By: #### M G3, TROPN, LFT3, BMP3M, PHOS3, HEMDF #### [facility] [address] [place] [address] AST [Catalytic activity/Vol] 66 U/L High 15-46 [facility] Comment on above: Performed By: #### M G3, TROPN, LFT3, BMP3M, PHOS3, HEMDF #### [facility] [address] [place] [address] Calcium [Mass/Vol] 8.9 mg/dL Normal 8.4-10.4 [facility] Comment on above: Performed By: #### M G3, TROPN, LFT3, BMP3M, PHOS3, HEMDF #### [facility] [address] [place] [address] Glucose [Mass/Vol] 243 mg/dL High 70-100 [facility] Comment on above: Performed By: #### M G3, TROPN, LFT3, BMP3M, PHOS3, HEMDF #### [facility] [address] [place] [address] Protein [Mass/Vol] 7.3 g/dL Normal 6.3-8.2 [facility] Comment on above: Performed By: #### M G3, TROPN, LFT3, BMP3M, PHOS3, HEMDF #### [facility] [address] [place] [address] Urea nitrogen [Mass/Vol] 20 mg/dL Normal 9-20 [facility] Comment on above: Performed By: #### M G3, TROPN, LFT3, BMP3M, PHOS3, HEMDF #### [facility] [address] [place] [address] Anion gap [Moles/Vol] 11 mmol/L Normal 3-13 [facility] Comment on above: Performed By: #### M G3, TROPN, LFT3, BMP3M, PHOS3, HEMDF #### [facility] [address] [place] [address] Bilirubin [Mass/Vol] 0.3 mg/dL Normal 0.2-1.3 [facility] Comment on above: Performed By: #### M G3, TROPN, LFT3, BMP3M, PHOS3, HEMDF #### [facility] [address] [place] [address] CO2 [Moles/Vol] 20 mmol/L Low 22-30 [facility] Comment on above: Performed By: #### M G3, TROPN, LFT3, BMP3M, PHOS3, HEMDF #### [facility] [address] [place] [address] Creatinine [Mass/Vol] 0.79 mg/dL Normal 0.52-1.25 [facility] Comment on above: Performed By: #### M G3, TROPN, LFT3, BMP3M, PHOS3, HEMDF #### [facility] [address] [place] [address] GFR/1.73 sq M.predicted among blacks MDRD (S/P/Bld) [Vol rate/Area] mL/min/{1.73_m2} Normal >60 [facility] Comment on above: Performed By: #### M G3, TROPN, LFT3, BMP3M, PHOS3, HEMDF #### [facility] [address] [place] [address] GFR/1.73 sq M.predicted among non-blacks MDRD (S/P/Bld) [Vol rate/Area] 90.0 mL/min/{1.73_m2} Normal >60 [facility] Comment on above: Result Comment: KDIG O guidelines provide the following GFR categories: Stage GFR(ml/min/1.73 m2) Terms G1 >=90 Normal or high G2 60-89 Mildly decreased* G3a 45-59 Mildly to moderately decreased G3b 30-44 Moderately to severely decreased G4 15-29 Severely decreased G5 <15 Kidney failure *Relative to young adult level. In the absence of evidence of kidney damage, neither GFR category G1 nor G2 fulfill the criteria for CKD. The CKD-EPI equation is validated in individuals 18 years of age and older. Currently the best equation for estimating glomerular filtration rate (GFR) from serum creatinine in children is the Bedside Allen equation. It is less accurate in patients with extremes of muscle mass, restriction of dietary protein, ingestion of creatine, extra-renal metabolism of creatinine, or treatment with medications that affect renal tubular creatinine secretion. Performed By: #### M G3, TROPN, LFT3, BMP3M, PHOS3, HEMDF #### [facility] [address] [place] [address] Albumin [Mass/Vol] 3.8 g/dL Normal 3.5-5.0 [facility] Comment on above: Performed By: #### M G3, TROPN, LFT3, BMP3M, PHOS3, HEMDF #### [facility] [address] [place] [address] Chloride [Moles/Vol] 104 mmol/L Normal 98-107 [facility] Comment on above: Performed By: #### M G3, TROPN, LFT3, BMP3M, PHOS3, HEMDF #### [facility] [address] [place] [address] Potassium [Moles/Vol] 3.6 mmol/L Normal 3.5-5.1 [facility] Comment on above: Performed By: #### M G3, TROPN, LFT3, BMP3M, PHOS3, HEMDF #### [facility] [address] [place] [address] Sodium [Moles/Vol] 136 mmol/L Normal 135-145 [facility] Comment on above: Performed By: #### M G3, TROPN, LFT3, BMP3M, PHOS3, HEMDF #### [facility] [address] [place] [address] Complete Urinalysison 2021 Bacteria Moderate (6-50) Abnormal Negative [facility] Comment on above: Result Comment: . Performed By: #### M G3, TROPN, LFT3, BMP3M, PHOS3, HEMDF #### [facility] [address] [place] [address] Mucous Threads Few Normal Negative [facility] Comment on above: Result Comment: . Performed By: #### M G3, TROPN, LFT3, BMP3M, PHOS3, HEMDF #### [facility] [address] [place] [address] RBC, Urine 3 - 5 Abnormal 0-2 [facility] Comment on above: Result Comment: . Performed By: #### M G3, TROPN, LFT3, BMP3M, PHOS3, HEMDF #### [facility] [address] [place] [address] Squamous Epithelial 0 - 2 Normal 3-5 [facility] Comment on above: Result Comment: . Performed By: #### M G3, TROPN, LFT3, BMP3M, PHOS3, HEMDF #### [facility] [address] [place] [address] VOLUME, URINE 8-12 ml Normal [facility] Comment on above: Result Comment: . Performed By: #### M G3, TROPN, LFT3, BMP3M, PHOS3, HEMDF #### [facility] [address] [place] [address] WBC, Urine 11 - 25 Abnormal 0-5 [facility] Comment on above: Result Comment: . Performed By: #### M G3, TROPN, LFT3, BMP3M, PHOS3, HEMDF #### [facility] [address] [place] [address] Appearance (U) Turbid Abnormal Clear [facility] Comment on above: Result Comment: . Performed By: #### M G3, TROPN, LFT3, BMP3M, PHOS3, HEMDF #### [facility] [address] [place] [address] Bilirubin,Urine Negative Normal Negative [facility] Comment on above: Result Comment: . Performed By: #### M G3, TROPN, LFT3, BMP3M, PHOS3, HEMDF #### [facility] [address] [place] [address] Color (U) YELLOW Normal Lt. Yellow [facility] Comment on above: Result Comment: . Performed By: #### M G3, TROPN, LFT3, BMP3M, PHOS3, HEMDF #### [facility] [address] [place] [address] Glucose Ql (U) Normal Normal Normal (<70) [facility] Comment on above: Result Comment: . Performed By: #### M G3, TROPN, LFT3, BMP3M, PHOS3, HEMDF #### [facility] [address] [place] [address] Ketone,Urine Negative Normal Negative [facility] Comment on above: Result Comment: . Performed By: #### M G3, TROPN, LFT3, BMP3M, PHOS3, HEMDF #### [facility] [address] [place] [address] Leukocytes,Urine 500 Natali/uL Abnormal Negative [facility] Comment on above: Result Comment: . Performed By: #### M G3, TROPN, LFT3, BMP3M, PHOS3, HEMDF #### [facility] [address] [place] [address] Nitrites,Urine Positive Abnormal Negative [facility] Comment on above: Result Comment: . Performed By: #### M G3, TROPN, LFT3, BMP3M, PHOS3, HEMDF #### [facility] [address] [place] [address] Occult Blood,Urine Negative Normal Negative [facility] Comment on above: Result Comment: . Performed By: #### M G3, TROPN, LFT3, BMP3M, PHOS3, HEMDF #### [facility] [address] [place] [address] pH,Urine 5.5 Normal 5.0-8.0 [facility] Comment on above: Result Comment: . Performed By: #### M G3, TROPN, LFT3, BMP3M, PHOS3, HEMDF #### [facility] [address] [place] [address] Protein (U) [Mass/Vol] 50 mg/dL Abnormal Negative [facility] Comment on above: Result Comment: . Performed By: #### M G3, TROPN, LFT3, BMP3M, PHOS3, HEMDF #### [facility] [address] [place] [address] Specific [place],Urine 1.016 Normal 1.005 - 1.030 [facility] Comment on above: Result Comment: . Performed By: #### M G3, TROPN, LFT3, BMP3M, PHOS3, HEMDF #### [facility] [address] [place] [address] Urobilinogen,Urine Normal Normal Normal (0-1) [facility] Comment on above: Result Comment: . Performed By: #### M G3, TROPN, LFT3, BMP3M, PHOS3, HEMDF #### [facility] [address] [place] [address] Drugs of Abuseon 10-25-2021 Phencyclidine (PCP), Ur Negative Normal [facility] Comment on above: Result Comment: The expected value for all of the drugs listed above is Negative. The following drugs or drug groups have been screened for by Immunoassay at the following thresholds: Amphetamine class (1000 ng/mL), Barbiturates (200 ng/mL), Benzodiazepines (200 ng/mL), Cocaine (300 ng/mL), Methadone (300 ng/mL), Opiates (300 ng/mL), Oxycodone (100 ng/mL), and PCP (25 ng/mL). NOTE: These results are for medical treatment only. Analysis performed using non-forensic procedures. POSITIVE results are NOT confirmed by a more specific alternative method unless requested. If confirmation is needed, request confirmation under separate order. Performed By: #### M G3, TROPN, LFT3, BMP3M, PHOS3, HEMDF #### [facility] [address] [place] [address] Opiates, Ur Positive Normal [facility] Comment on above: Performed By: #### M G3, TROPN, LFT3, BMP3M, PHOS3, HEMDF #### [facility] [address] [place] [address] Cocaine, Ur Negative Normal [facility] Comment on above: Performed By: #### M G3, TROPN, LFT3, BMP3M, PHOS3, HEMDF #### [facility] [address] [place] [address] Methadone, Ur Negative Normal [facility] Comment on above: Performed By: #### M G3, TROPN, LFT3, BMP3M, PHOS3, HEMDF #### [facility] [address] [place] [address] Barbiturates, Ur Negative Normal [facility] Comment on above: Performed By: #### M G3, TROPN, LFT3, BMP3M, PHOS3, HEMDF #### [facility] [address] [place] [address] Benzodiazepines, Ur Positive Normal [facility] Comment on above: Performed By: #### M G3, TROPN, LFT3, BMP3M, PHOS3, HEMDF #### [facility] [address] [place] [address] Amphetamines, Ur Negative Normal [facility] Comment on above: Performed By: #### M G3, TROPN, LFT3, BMP3M, PHOS3, HEMDF #### [facility] [address] [place] [address] Oxycodone/Oxymorphine ,Ur Negative Normal [facility] Comment on above: Performed By: #### M G3, TROPN, LFT3, BMP3M, PHOS3, HEMDF #### [facility] [address] [place] [address] Ethanol Serum/Plasmaon 10-25 Ethanol-Serum/Plasma < 0.010 Normal 0.000-0.010 [facility] Comment on above: Result Comment: NOTE : This result is for medical treatment only. Analysis performed using non-forensic procedures. Performed By: #### M G3, TROPN, LFT3, BMP3M, PHOS3, HEMDF #### [facility] [address] [place] [address] Hemogram w/ Autodiffon 10-25 Platelets (Bld) [#/Vol] 337 10*3/uL Normal 140-440 [facility] Comment on above: Result Comment: Occa sional large platelets Performed By: #### M G3, TROPN, LFT3, BMP3M, PHOS3, HEMDF #### [facility] [address] [place] [address] Erythrocyte distribution width (RBC) [Ratio] 14.0 % Normal 11.5-14.5 [facility] Comment on above: Performed By: #### M G3, TROPN, LFT3, BMP3M, PHOS3, HEMDF #### [facility] [address] [place] [address] Hematocrit (Bld) [Volume fraction] 41.1 % Normal 35.0-47.0 [facility] Comment on above: Performed By: #### M G3, TROPN, LFT3, BMP3M, PHOS3, HEMDF #### [facility] [address] [place] [address] Hemoglobin (Bld) [Mass/Vol] 13.6 g/dL Normal 11.7-16.0 [facility] Comment on above: Performed By: #### M G3, TROPN, LFT3, BMP3M, PHOS3, HEMDF #### [facility] [address] [place] [address] MCH (RBC) [Entitic mass] 30.8 pg Normal 26.0-34.0 [facility] Comment on above: Performed By: #### M G3, TROPN, LFT3, BMP3M, PHOS3, HEMDF #### [facility] [address] [place] [address] MCHC 33.2 % Normal 32.0-36.0 [facility] Comment on above: Performed By: #### M G3, TROPN, LFT3, BMP3M, PHOS3, HEMDF #### [facility] [address] [place] [address] MCV (RBC) [Entitic vol] 92.8 fL Normal 79.0-98.0 [facility] Comment on above: Performed By: #### M G3, TROPN, LFT3, BMP3M, PHOS3, HEMDF #### [facility] [address] [place] [address] Platelet mean volume (Bld) [Entitic vol] 8.2 fL Normal 7.4-10.4 [facility] Comment on above: Performed By: #### M G3, TROPN, LFT3, BMP3M, PHOS3, HEMDF #### [facility] [address] [place] [address] RBC (Bld) [#/Vol] 4.43 10*6/uL Normal 3.80-5.20 [facility] Comment on above: Performed By: #### M G3, TROPN, LFT3, BMP3M, PHOS3, HEMDF #### [facility] [address] [place] [address] WBC (Bld) [#/Vol] 10.6 10*3/uL Normal 3.6-10.7 [facility] Comment on above: Performed By: #### M G3, TROPN, LFT3, BMP3M, PHOS3, HEMDF #### [facility] [address] [place] [address] Lactic Acidon 10-25-2021 Lactate [Moles/Vol] 3.6 mmol/L Critically high 0.7-2.0 [facility] Comment on above: Performed By: #### M G3, TROPN, LFT3, BMP3M, PHOS3, HEMDF #### [facility] [address] [place] [facility] Lactate [Moles/Vol] 7.1 mmol/L Critically high 0.7-2.0 [facility] Comment on above: Performed By: #### M G3, TROPN, LFT3, BMP3M, PHOS3, HEMDF #### [facility] [address] [place] [address] Manual Diffon 10-25-2021 Abs Baso Cnt 0.0 10*3/uL Normal 0.0-0.2 [facility] Comment on above: Performed By: #### M G3, TROPN, LFT3, BMP3M, PHOS3, HEMDF #### [place] [address] [place] [address] Abs Eosin Cnt 0.0 10*3/uL Normal 0.0-0.5 [facility] Comment on above: Performed By: #### M G3, TROPN, LFT3, BMP3M, PHOS3, HEMDF #### [place] [address] [place] [address] Abs Lymph Cnt 1.6 10*3/uL Normal 1.1-4.5 [facility] Comment on above: Performed By: #### M G3, TROPN, LFT3, BMP3M, PHOS3, HEMDF #### [facility] [address] [place] [address] Abs Monocyte Cnt 0.5 10*3/uL Normal 0.2-1.1 [facility] Comment on above: Performed By: #### M G3, TROPN, LFT3, BMP3M, PHOS3, HEMDF #### [place] [address] [place] [place] [address] Abs Neutrophile Cnt 8.5 10*3/uL High 2.2-8.2 [facility] Comment on above: Performed By: #### M G3, TROPN, LFT3, BMP3M, PHOS3, HEMDF #### [facility] [address] [place] [address] Bands 2 % Normal 0-3 [facility] Comment on above: Performed By: #### M G3, TROPN, LFT3, BMP3M, PHOS3, HEMDF #### [facility] [address] [place] [address] Basophils 0 % Normal 0-2 [facility] Comment on above: Performed By: #### M G3, TROPN, LFT3, BMP3M, PHOS3, HEMDF #### [facility] [address] [place] [address] Cells counted 100 Normal [facility] Comment on above: Performed By: #### M G3, TROPN, LFT3, BMP3M, PHOS3, HEMDF #### [facility] [address] [place] [address] Eosinophils 0 % Low 1-6 [facility] Comment on above: Performed By: #### M G3, TROPN, LFT3, BMP3M, PHOS3, HEMDF #### [facility] [address] [place] [address] Lymphocytes 15 % Low 20-40 [facility] Comment on above: Performed By: #### M G3, TROPN, LFT3, BMP3M, PHOS3, HEMDF #### [facility] [address] [place] [address] Monocytes 5 % Normal 2-10 [facility] Comment on above: Performed By: #### M G3, TROPN, LFT3, BMP3M, PHOS3, HEMDF #### [facility] [address] [place] [address] RBC Morphology Normal Normal [facility] Comment on above: Performed By: #### M G3, TROPN, LFT3, BMP3M, PHOS3, HEMDF #### [facility] [address] [place] [address] Seg Neutrophils 78 % Normal 40-80 [facility] Comment on above: Performed By: #### M G3, TROPN, LFT3, BMP3M, PHOS3, HEMDF #### [facility] [address] [place] [address] THC, Urineon 02-02-2022 THC, Ur Negative Normal [facility] Comment on above: Result Comment: Thre shold= 50 ng/mL Performed By: #### M G3, TROPN, LFT3, BMP3M, PHOS3, HEMDF #### [facility] [address] [place] [address] Troponin Ion 10-25-2021 Troponin I.cardiac [Mass/Vol] 0.464 ng/mL High 0.000-0.034 [facility] Comment on above: Result Comment: . Performed By: #### M G3, TROPN, LFT3, BMP3M, PHOS3, HEMDF #### [facility] [address] [place] [address] Troponin I.cardiac [Mass/Vol] 0.392 ng/mL High 0.000-0.034 [facility] Comment on above: Result Comment: . Performed By: #### M G3, TROPN, LFT3, BMP3M, PHOS3, HEMDF #### [facility] [address] [place] [address] Venous Blood Gas Respiratory on 10-25-2021 Base Excess -5.3 mmol/L Low -3.0-3.0 [facility] Comment on above: Performed By: #### M G3, TROPN, LFT3, BMP3M, PHOS3, HEMDF #### [facility] [address] [place] [address] CO2 [Moles/Vol] 24.9 mmol/L Normal 24.0-28.0 [facility] Comment on above: Result Comment: Perf ormed by PETER ID: [id number] [place], [place] Performed By: #### M G3, TROPN, LFT3, BMP3M, PHOS3, HEMDF #### [facility] [address] [place] [address] HCO3 (Bld) [Moles/Vol] 23.2 mmol/L Normal 23.0-27.0 [facility] Comment on above: Performed By: #### M G3, TROPN, LFT3, BMP3M, PHOS3, HEMDF #### [facility] [address] [place] [address] Oxygen (Bld) [Partial pressure] 116.2 mm[Hg] High 30.0-50.0 [facility] Comment on above: Performed By: #### M G3, TROPN, LFT3, BMP3M, PHOS3, HEMDF #### [facility] [employer] [facility] [address] [place] [address] Oxygen saturation in Blood 97.5 % High 60.0-80.0 [facility] Comment on above: Performed By: #### M G3, TROPN, LFT3, BMP3M, PHOS3, HEMDF #### [facility] [employer] [facility] [address] [place] [address] pCO2 56.2 mm[Hg] High 40.0-55.0 [facility] Comment on above: Performed By: #### M G3, TROPN, LFT3, BMP3M, PHOS3, HEMDF #### [facility] [address] [place] [address] pH 7.223 Low 7.330-7.430 [facility] Comment on above: Performed By: #### M G3, TROPN, LFT3, BMP3M, PHOS3, HEMDF #### [facility] [employer] [facility] [address] [place] [address] ED Provider Noteon ED Provider Note Emergency Department Encounter [facility] EMERGENCY DEPT Patient: Katarzyna Vargas : 1975 Date of Evaluation: 10/20/2021 ED Supervising Physician: Leander Calixto MD I independently examined and evaluated Katarzyna Vargas. This will serve as my Supervisory note and shared attestation. I did perform a substantive portion of the visit including all aspects of the Medical Decision Making. I wore appropriate PPE for the entirety of this encounter. Does this patient come from an ECF, SNF, Rehab, Detention or other Congregate setting: no (If yes to above patient needs a Covid-19 test) In brief, Katarzyna Vargas is a 46 y.o. female that presents to the emergency department complaining of needing a suprapubic catheter placed. Patient is a paraplegic, was sent from [facility] and came in by EMS, she thinks that she should have been taken to the registration area but ended up in the ED by EMS somehow she says. She has no acute complaints. We will help her by calling urology. Focused exam: Awake alert oriented, heart regular rate and rhythm Brief ED course/MDM: We spoke with urology who said that the patient had been rescheduled for date in October but they will talk with Dr. Ureña to see how he wants to proceed. Diagnosis/Plan: Here for suprapubic catheter placement All diagnostic, treatment, and disposition decisions were made by myself in conjunction with the JOSE/Resident. For all further details of the patient's emergency department visit, please see their documentation. Comment: Please note this report has been produced using speech recognition software and may contain errors related to that system including errors in grammar, punctuation, and spelling, as well as words and phrases that may be inappropriate. If there are any questions or concerns please feel free to contact the dictating provider for clarification. Leander Calixto MD [facility] Leander Calixto MD 10/20/21 1312 Normal [facility] Comp Metabolic Panelon 10-11 Calcium [Mass/Vol] 9.0 mg/dL Normal 8.4-10.4 [facility] Comment on above: Performed By: #### P T, APTT #### [place] [address] [address] [place], [place] ALP [Catalytic activity/Vol] 90 U/L Normal 38-126 [facility] Comment on above: Performed By: #### P T, APTT #### [place] [address] [address] [place], [place] ALT [Catalytic activity/Vol] 10 U/L Normal 0-34 [facility] Comment on above: Result Comment: The ALT test is performed by an updated assay method. Please note that the reference intervals have been changed and are now sex specific. Performed By: #### P T, APTT #### [place] [address] [address] [place], [place] Anion gap [Moles/Vol] 8 mmol/L Normal 3-13 [facility] Comment on above: Performed By: #### P T, APTT #### [place] [address] [address] [place], [place] AST [Catalytic activity/Vol] 20 U/L Normal 15-46 [facility] Comment on above: Performed By: #### P T, APTT #### [facility] [address] [place], [place] Bilirubin [Mass/Vol] 0.5 mg/dL Normal 0.2-1.3 [facility] Comment on above: Performed By: #### P T, APTT #### [facility] [address] [place], [place] CO2 [Moles/Vol] 28 mmol/L Normal 22-30 [facility] Comment on above: Performed By: #### P T, APTT #### [facility] [address] [place], [place] Creatinine [Mass/Vol] 0.65 mg/dL Normal 0.52-1.25 [facility] Comment on above: Performed By: #### P T, APTT #### [facility] [address], [place] eGFR OTHER > 90.0 Normal >60 [facility] Comment on above: Result Comment: KDIG O guidelines provide the following GFR categories: Stage GFR(ml/min/1.73 m2) Terms G1 >=90 Normal or high G2 60-89 Mildly decreased* G3a 45-59 Mildly to moderately decreased G3b 30-44 Moderately to severely decreased G4 15-29 Severely decreased G5 <15 Kidney failure *Relative to young adult level. In the absence of evidence of kidney damage, neither GFR category G1 nor G2 fulfill the criteria for CKD. The CKD-EPI equation is validated in individuals 18 years of age and older. Currently the best equation for estimating glomerular filtration rate (GFR) from serum creatinine in children is the Bedside Allen equation. It is less accurate in patients with extremes of muscle mass, restriction of dietary protein, ingestion of creatine, extra-renal metabolism of creatinine, or treatment with medications that affect renal tubular creatinine secretion. Performed By: #### P T, APTT #### [facility] [address] [place], [place] GFR/1.73 sq M.predicted among blacks MDRD (S/P/Bld) [Vol rate/Area] mL/min/{1.73_m2} Normal >60 [facility] Comment on above: Performed By: #### P T, APTT #### [facility] [address] [place] [address] Glucose [Mass/Vol] 86 mg/dL Normal 70-100 [facility] Comment on above: Performed By: #### P T, APTT #### [facility] [address] [place], [place] Protein [Mass/Vol] 7.5 g/dL Normal 6.3-8.2 [facility] Comment on above: Performed By: #### P T, APTT #### [place] [address] [address] [place], [place] Urea nitrogen [Mass/Vol] 15 mg/dL Normal 9-20 [facility] Comment on above: Performed By: #### P T, APTT #### [place] [address] [address] [place], [place] Potassium [Moles/Vol] 3.7 mmol/L Normal 3.5-5.1 [facility] Comment on above: Performed By: #### P T, APTT #### [place] [address] [address] [place], [place] Albumin [Mass/Vol] 3.7 g/dL Normal 3.5-5.0 [facility] Comment on above: Performed By: #### P T, APTT #### [place] [address] [address] [place], [place] Chloride [Moles/Vol] 104 mmol/L Normal 98-107 [facility] Comment on above: Performed By: #### P T, APTT #### [place] [address] [place] [address] Sodium [Moles/Vol] 140 mmol/L Normal 135-145 [facility] Comment on above: Performed By: #### P T, APTT #### [place] [address] [place] [address] Hemogramon 10-11-2021 Erythrocyte distribution width (RBC) [Ratio] 13.8 % Normal 11.5-14.5 [facility] Comment on above: Performed By: #### P T, APTT #### [facility] [address] [place], [place] Hematocrit (Bld) [Volume fraction] 36.8 % Normal 35.0-47.0 [facility] Comment on above: Performed By: #### P T, APTT #### [facility] [address] [place], [place] Hemoglobin (Bld) [Mass/Vol] 12.4 g/dL Normal 11.7-16.0 [facility] Comment on above: Performed By: #### P T, APTT #### [facility] [address], [place] MCH (RBC) [Entitic mass] 30.9 pg Normal 26.0-34.0 [facility] Comment on above: Performed By: #### P T, APTT #### [place] [address] [address] [place], [place] MCHC 33.7 % Normal 32.0-36.0 [facility] Comment on above: Performed By: #### P T, APTT #### [facility] [address] [place], [place] MCV (RBC) [Entitic vol] 91.6 fL Normal 79.0-98.0 [facility] Comment on above: Performed By: #### P T, APTT #### [facility] [address], [place] Platelet mean volume (Bld) [Entitic vol] 8.3 fL Normal 7.4-10.4 [facility] Comment on above: Performed By: #### P T, APTT #### [facility] [address] [place], [place] Platelets (Bld) [#/Vol] 204 10*3/uL Normal 140-440 [facility] Comment on above: Performed By: #### P T, APTT #### [facility] [address] [place], [place] RBC (Bld) [#/Vol] 4.02 10*6/uL Normal 3.80-5.20 [facility] Comment on above: Performed By: #### P T, APTT #### [facility] [employer] [facility] [address] [place], [place] WBC (Bld) [#/Vol] 4.7 10*3/uL Normal 3.6-10.7 [facility] Comment on above: Performed By: #### P T, APTT #### [facility] [employer] [facility] [address], [place] CULTURE URINEon 06-23-2021 CULTURE URINE 1 Organism Morganell a morganii >100,000 CFU/ml For serious infections outside of the urinary tract, third generation cephalosporins may not be effective, even if test results indicate the organism is sensitive. -------- 1 Organism -------- Antibiotic Result Intrp -------- Ampicillin(CHLOE) R Cefazolin(CHLOE) R Ceftriaxone(CHLOE) 2 I Cefepime(CHLOE) <= 1 S Aztreonam(CHLOE) <= 1 S Amoxicillin/Clavulanic Acid(CHLOE) R Ampicillin/Sulbactam(CHLOE ) R Pip/Tazobactam(CHLOE) <= 4 S Meropenem(CHLOE) <= 0.25 S Ciprofloxacin(CHLOE) 1 S Trimeth/Sulfa(CHLOE) >= 320 R Nitrofurantoin(CHLOE) R Gentamicin(CHLOE) >= 16 R Amikacin(CHLOE) <= 2 S Normal [facility] Comment on above: Performed By: #### M G3, TROPN, LFT3, BMP3M, PHOS3, HEMDF #### [facility] [address] [place] [address] Complete Urinalysison 2020 Bacteria Many (51-100) Abnormal Negative [facility] Comment on above: Result Comment: . Performed By: #### M G3, TROPN, LFT3, BMP3M, PHOS3, HEMDF #### [facility] [address] [place] [address] RBC, Urine 0 - 2 Normal 0-2 [facility] Comment on above: Result Comment: . Performed By: #### M G3, TROPN, LFT3, BMP3M, PHOS3, HEMDF #### [facility] [address] [place] [address] Squamous Epithelial 0 - 2 Normal 3-5 [facility] Comment on above: Result Comment: . Performed By: #### M G3, TROPN, LFT3, BMP3M, PHOS3, HEMDF #### [facility] [address] [place] [address] VOLUME, URINE 12 ml Normal [facility] Comment on above: Result Comment: . Performed By: #### M G3, TROPN, LFT3, BMP3M, PHOS3, HEMDF #### [facility] [address] [place] [address] WBC, Urine 51 - 100 Abnormal 0-5 [facility] Comment on above: Result Comment: . Performed By: #### M G3, TROPN, LFT3, BMP3M, PHOS3, HEMDF #### [facility] [address] [place] [address] Appearance (U) Turbid Abnormal Clear [facility] Comment on above: Result Comment: . Performed By: #### M G3, TROPN, LFT3, BMP3M, PHOS3, HEMDF #### [facility] [address] [place] [address] Bilirubin,Urine Negative Normal Negative [facility] Comment on above: Result Comment: . Performed By: #### M G3, TROPN, LFT3, BMP3M, PHOS3, HEMDF #### [facility] [address] [place] [address] Color (U) YELLOW Normal Lt. Yellow [facility] Comment on above: Result Comment: . Performed By: #### M G3, TROPN, LFT3, BMP3M, PHOS3, HEMDF #### [facility] [address] [place] [address] Glucose Ql (U) Normal Normal Normal (<70) [facility] Comment on above: Result Comment: . Performed By: #### M G3, TROPN, LFT3, BMP3M, PHOS3, HEMDF #### [facility] [address] [place] [address] Ketone,Urine Negative Normal Negative [facility] Comment on above: Result Comment: . Performed By: #### M G3, TROPN, LFT3, BMP3M, PHOS3, HEMDF #### [facility] [address] [place] [address] Leukocytes,Urine 500 Natali/uL Abnormal Negative [facility] Comment on above: Result Comment: . Performed By: #### M G3, TROPN, LFT3, BMP3M, PHOS3, HEMDF #### [facility] [address] [place] [address] Nitrites,Urine Negative Normal Negative [facility] Comment on above: Result Comment: . Performed By: #### M G3, TROPN, LFT3, BMP3M, PHOS3, HEMDF #### [facility] [address] [place] [address] Occult Blood,Urine 0.03 mg/dL Abnormal Negative [facility] Comment on above: Result Comment: . Performed By: #### M G3, TROPN, LFT3, BMP3M, PHOS3, HEMDF #### [facility] [address] [place] [address] pH,Urine 7.5 Normal 5.0-8.0 [facility] Comment on above: Result Comment: . Performed By: #### M G3, TROPN, LFT3, BMP3M, PHOS3, HEMDF #### [facility] [address] [place] [address] Protein (U) [Mass/Vol] 10 mg/dL Abnormal Negative [facility] Comment on above: Result Comment: . Performed By: #### M G3, TROPN, LFT3, BMP3M, PHOS3, HEMDF #### [facility] [address] [place] [address] Specific [place],Urine 1.013 Normal 1.005 - 1.030 [facility] Comment on above: Result Comment: . Performed By: #### M G3, TROPN, LFT3, BMP3M, PHOS3, HEMDF #### [facility] [address] [place] [address] Urobilinogen,Urine Normal Normal Normal (0-1) [facility] Comment on above: Result Comment: . Performed By: #### M G3, TROPN, LFT3, BMP3M, PHOS3, HEMDF #### [facility] [address] [place] [address] IR TUNNELED PICC REMOVALon 0 03-20-2021 IR TUNNELED PICC REMOVAL ORIGINAL REMOVAL OF TUNNELED CENTRAL VENOUS CATHETER CLINICAL STATEMENT: Patient no longer requires a tunneled central venous catheter FINDINGS: Patient has an indwelling tunneled RIGHT internal jugular catheter that was inserted at an outside facility. Patient is unsure of how long ago this was inserted. There is no evidence of inflammation or infection at the skin entry site. After sterile preparation and draping, lidocaine 2% with epinephrine was injected at the skin insertion site and along the lower end of the tunnel. The cuff of the catheter was dissected free using gentle traction and a hemostat. It was removed as external pressure was applied at the insertion site at the lower neck. Excellent hemostasis was achieved. A sterile dry dressing was applied over the insertion site. The patient tolerated the procedure well. IMPRESSION: Successful removal of a RIGHT internal jugular tunneled catheter. The procedure was performed by Gina Maza PA-C. I concur with the contents of the report Interpreted By: Trung De La Fuente MD Preliminary Report By: Gina Maza PA-C Electronically Signed By: Trung De La Fuente MD Dictated Date: 03/20/2021 4:04:23 PM Prelim Date: 03/20/2021 4:05:38 PM Sign Date: 03/20/2021 6:01:11 PM Ordering Provider:Dmitri Kim [facility] ([place]) [place] 03-20-2021 Adenovirus Not detected Normal Not Detected [facility] Comment on above: Performed By: #### C BC, ADIFF, ANEU, FERR, FOL, MG, TSH, PHOS, B12, FES, PRALB, GFR, CMP #### [place] [address] [place] Parapertussis Not detected Normal Not Detected [facility] Comment on above: Performed By: #### C BC, ADIFF, ANEU, FERR, FOL, MG, TSH, PHOS, B12, FES, PRALB, GFR, CMP #### [place] [address] [place] Pertussis Not detected Normal Not Detected [facility] [place] Comment on above: Performed By: #### C BC, ADIFF, ANEU, FERR, FOL, MG, TSH, PHOS, B12, FES, PRALB, GFR, CMP #### [place] [address] Chlamydophila pneumoniae Not detected Normal Not Detected [facility] [place] Comment on above: Performed By: #### C BC, ADIFF, ANEU, FERR, FOL, MG, TSH, PHOS, B12, FES, PRALB, GFR, CMP #### [place] [address] Coronavirus 229E (Not COVID-19) Not detected Normal Not Detected [facility] [place] Comment on above: Performed By: #### C BC, ADIFF, ANEU, FERR, FOL, MG, TSH, PHOS, B12, FES, PRALB, GFR, CMP #### [place] [address] Coronavirus HKU1 (Not COVID-19) Not detected Normal Not Detected [facility] [place] Comment on above: Performed By: #### C BC, ADIFF, ANEU, FERR, FOL, MG, TSH, PHOS, B12, FES, PRALB, GFR, CMP #### [place] [address] Coronavirus NL63 (Not COVID-19) Not detected Normal Not Detected [facility] [place] Comment on above: Performed By: #### C BC, ADIFF, ANEU, FERR, FOL, MG, TSH, PHOS, B12, FES, PRALB, GFR, CMP #### [place] [address] Coronavirus OC43 (Not COVID-19) Not detected Normal Not Detected [facility] ([place] Comment on above: Performed By: #### C BC, ADIFF, ANEU, FERR, FOL, MG, TSH, PHOS, B12, FES, PRALB, GFR, CMP #### [place] [address] Date of Onset [id number] Invalid Interpretation Code [facility] ([place] Comment on above: Performed By: #### C BC, ADIFF, ANEU, FERR, FOL, MG, TSH, PHOS, B12, FES, PRALB, GFR, CMP #### [place] [address] Employed in Healthcare No Normal [facility] ([place] Comment on above: Performed By: #### C BC, ADIFF, ANEU, FERR, FOL, MG, TSH, PHOS, B12, FES, PRALB, GFR, CMP #### [place] [address] First Test No Normal [facility] [place] Comment on above: Performed By: #### C BC, ADIFF, ANEU, FERR, FOL, MG, TSH, PHOS, B12, FES, PRALB, GFR, CMP #### [place] [address] Hospitalized Yes Normal [facility] [place] Comment on above: Performed By: #### C BC, ADIFF, ANEU, FERR, FOL, MG, TSH, PHOS, B12, FES, PRALB, GFR, CMP #### [place] [address] Human Metapneumovirus Not detected Normal Not Detected [facility] [place] Comment on above: Performed By: #### C BC, ADIFF, ANEU, FERR, FOL, MG, TSH, PHOS, B12, FES, PRALB, GFR, CMP #### [place] [address] ICU No Normal [facility] [place] Comment on above: Performed By: #### C BC, ADIFF, ANEU, FERR, FOL, MG, TSH, PHOS, B12, FES, PRALB, GFR, CMP #### [place] [address] Influenza A Not detected Normal Not Detected [facility] [place] Comment on above: Performed By: #### C BC, ADIFF, ANEU, FERR, FOL, MG, TSH, PHOS, B12, FES, PRALB, GFR, CMP #### [place] [address] Influenza B Not detected Normal Not Detected [facility] [place] Comment on above: Performed By: #### C BC, ADIFF, ANEU, FERR, FOL, MG, TSH, PHOS, B12, FES, PRALB, GFR, CMP #### [place] [address] Mycoplasma pneumoniae Not detected Normal Not Detected [facility] [place] Comment on above: Performed By: #### C BC, ADIFF, ANEU, FERR, FOL, MG, TSH, PHOS, B12, FES, PRALB, GFR, CMP #### [place] [address] Parainfluenza 1 Not detected Normal Not Detected [facility] ([place]) Comment on above: Performed By: #### C BC, ADIFF, ANEU, FERR, FOL, MG, TSH, PHOS, B12, FES, PRALB, GFR, CMP #### [place] [address] Parainfluenza 2 Not detected Normal Not Detected [facility] ([place]) Comment on above: Performed By: #### C BC, ADIFF, ANEU, FERR, FOL, MG, TSH, PHOS, B12, FES, PRALB, GFR, CMP #### [place] [address] Parainfluenza 3 Not detected Normal Not Detected [facility] ([place]) Comment on above: Performed By: #### C BC, ADIFF, ANEU, FERR, FOL, MG, TSH, PHOS, B12, FES, PRALB, GFR, CMP #### [place] [address] Parainfluenza 4 Not detected Normal Not Detected [facility] ([place]) Comment on above: Performed By: #### C BC, ADIFF, ANEU, FERR, FOL, MG, TSH, PHOS, B12, FES, PRALB, GFR, CMP #### [place] [address] Not Normal [facility] [facility] ([place]) Comment on above: Performed By: #### C BC, ADIFF, ANEU, FERR, FOL, MG, TSH, PHOS, B12, FES, PRALB, GFR, CMP #### [place] [address] Resides in Congregate Care Setting No Normal [facility] ([place]) Comment on above: Performed By: #### C BC, ADIFF, ANEU, FERR, FOL, MG, TSH, PHOS, B12, FES, PRALB, GFR, CMP #### [place] [address] Respiratory Syncytial Virus Not detected Normal Not Detected [facility] ([place]) Comment on above: Performed By: #### C BC, ADIFF, ANEU, FERR, FOL, MG, TSH, PHOS, B12, FES, PRALB, GFR, CMP #### [place] [address] Rhinovirus/Enteroviru s Not detected Normal Not Detected [facility] ([place]) Comment on above: Performed By: #### C BC, ADIFF, ANEU, FERR, FOL, MG, TSH, PHOS, B12, FES, PRALB, GFR, CMP #### [place] [address] SARS-CoV-2 (COVID-19) RNA CHACE+probe Ql (Unsp spec) Not detected Normal Not Detected [facility] ([place]) Comment on above: Result Comment: This test is being used under the FDA EUA procedure. This assay has been validated in the [facility] for use with nasopharyngeal specimens in [facility]. If a non-validated specimen or test collection method was used, please interpret the results with caution, especially if the test result is negative. A positive test result for COVID-19 indicates that RNA from SARS-CoV-2 was detected, and the patient is infected with the virus and presumed to be contagious. Laboratory test results should always be considered in the context of clinical observations and epidemiological data in making a final diagnosis and patient management decisions. Patient management should follow current CDC guidelines. A negative test result for this test means that SARS-CoV-2 RNA was not present in the specimen above the limit of detection. However, a negative result does not rule out COVID-19 and should not be used as the sole basis for treatment or patient management decisions. A negative result does not exclude the possibility of COVID-19. When diagnostic testing is negative, the possibility of a false negative result should be considered in the context of a patient's recent exposures and the presence of clinical signs and symptoms consistent with COVID-19. The possibility of a false negative result should especially be considered if the patient?s recent exposures or clinical presentation indicate that COVID-19 is likely, and diagnostic tests for other causes of illness (e.g., other respiratory illness) are negative. If COVID-19 is still suspected based on exposure history together with other clinical findings, re-testing should be considered by healthcare providers in consultation with public health authorities. Performed By: #### C BC, ADIFF, ANEU, FERR, FOL, MG, TSH, PHOS, B12, FES, PRALB, GFR, CMP #### [place] [address] Symptomatic as Defined by CDC No Normal [facility] ([place]) Comment on above: Performed By: #### C BC, ADIFF, ANEU, FERR, FOL, MG, TSH, PHOS, B12, FES, PRALB, GFR, CMP #### [place] [id number] [facility] 03-18-2021 Barometric Pressure 737 mmHg Normal [facility] ([place]) Comment on above: Performed By: #### C BC, ADIFF, ANEU, FERR, FOL, MG, TSH, PHOS, B12, FES, PRALB, GFR, CMP #### [address] [address] Base excess Calc (Bld) [Moles/Vol] 7.5 mmol/L Normal [facility] ([place]) Comment on above: Performed By: #### C BC, ADIFF, ANEU, FERR, FOL, MG, TSH, PHOS, B12, FES, PRALB, GFR, CMP #### [address] [address] CO2 [Moles/Vol] 33.5 mmol/L High 22.0-30.0 [facility] ([place]) Comment on above: Performed By: #### C BC, ADIFF, ANEU, FERR, FOL, MG, TSH, PHOS, B12, FES, PRALB, GFR, CMP #### [address] [address] HCO3 (Bld) [Moles/Vol] 32.2 mmol/L High 21.0-29.0 [facility] ([place]) Comment on above: Performed By: #### C BC, ADIFF, ANEU, FERR, FOL, MG, TSH, PHOS, B12, FES, PRALB, GFR, CMP #### [address] [address] Oxygen (Bld) [Partial pressure] 93.8 mm[Hg] Normal 74.0-108.0 [facility] ([place]) Comment on above: Performed By: #### C BC, ADIFF, ANEU, FERR, FOL, MG, TSH, PHOS, B12, FES, PRALB, GFR, CMP #### [address] [address] Oxygen saturation in Blood 97.5 % High 92.0-96.0 [facility] ([place]) Comment on above: Performed By: #### C BC, ADIFF, ANEU, FERR, FOL, MG, TSH, PHOS, B12, FES, PRALB, GFR, CMP #### [address] [address] pCO2 44.9 mmHg Normal 32.0-46.0 [facility] ([place]) Comment on above: Performed By: #### C BC, ADIFF, ANEU, FERR, FOL, MG, TSH, PHOS, B12, FES, PRALB, GFR, CMP #### [address] [address] pH (Bld) 7.473 [pH] High 7.380-7.460 [facility] ([place]) Comment on above: Performed By: #### C BC, ADIFF, ANEU, FERR, FOL, MG, TSH, PHOS, B12, FES, PRALB, GFR, CMP #### [address] [address] .Auto Diffon 03-17-2021 Basophil, Absolute 0.00 10 3/mcL Normal 0.00-0.27 [facility] ([place]) Comment on above: Performed By: #### C BC, ADIFF, ANEU, FERR, FOL, MG, TSH, PHOS, B12, FES, PRALB, GFR, CMP #### [place] [address] Basophils/100 WBC (Bld) 1.1 % Normal 0.0-2.5 [facility] ([place]) Comment on above: Performed By: #### C BC, ADIFF, ANEU, FERR, FOL, MG, TSH, PHOS, B12, FES, PRALB, GFR, CMP #### [place] [address] Eosinophil, Absolute 0.20 10 3/mcL Normal 0.00-0.65 [facility] ([place]) Comment on above: Performed By: #### C BC, ADIFF, ANEU, FERR, FOL, MG, TSH, PHOS, B12, FES, PRALB, GFR, CMP #### [address] [address] Eosinophils/100 WBC (Bld) 5.7 % Normal 0.0-6.0 [facility] ([place]) Comment on above: Performed By: #### C BC, ADIFF, ANEU, FERR, FOL, MG, TSH, PHOS, B12, FES, PRALB, GFR, CMP #### [place] [address] Lymphocyte, Absolute 1.80 10 3/mcL Normal 0.90-4.32 [facility] ([place]) Comment on above: Performed By: #### C BC, ADIFF, ANEU, FERR, FOL, MG, TSH, PHOS, B12, FES, PRALB, GFR, CMP #### [address] [address] Lymphocytes/100 WBC (Bld) 41.4 % High 20.0-40.0 [facility] ([place]) Comment on above: Performed By: #### C BC, ADIFF, ANEU, FERR, FOL, MG, TSH, PHOS, B12, FES, PRALB, GFR, CMP #### [address] [address] Monocyte, Absolute 0.40 10 3/mcL Normal 0.09-1.40 [facility] ([place]) Comment on above: Performed By: #### C BC, ADIFF, ANEU, FERR, FOL, MG, TSH, PHOS, B12, FES, PRALB, GFR, CMP #### [address] [address] Monocytes/100 WBC (Bld) 9.4 % Normal 2.0-13.0 [facility] ([place]) Comment on above: Performed By: #### C BC, ADIFF, ANEU, FERR, FOL, MG, TSH, PHOS, B12, FES, PRALB, GFR, CMP #### [address] [address] Neutrophils/100 WBC (Bld) 42.4 % Low 50.0-75.0 [facility] ([place]) Comment on above: Performed By: #### C BC, ADIFF, ANEU, FERR, FOL, MG, TSH, PHOS, B12, FES, PRALB, GFR, CMP #### [address] [address] .GFRon 03-17-2021 GFR >60 Normal [facility] ([place]) Comment on above: Result Comment: GFR Population mean for , Non- Americans Ages 20-29 = 116 mL/min/1.73 sq.m. Ages 30-39 = 107 mL/min/1.73 sq.m. Ages 40-49 = 99 mL/min/1.73 sq.m. Ages 50-59 = 93 mL/min/1.73 sq.m. Ages 60-69 = 85 mL/min/1.73 sq.m. Ages 70+ = 75 mL/min/1.73 sq.m. Chronic Kidney Disease: Less than 60 mL/min/1.73 square meters End Stage Renal Disease: Less than 15 mL/min/1.73 square meters Performed By: #### C BC, ADIFF, ANEU, FERR, FOL, MG, TSH, PHOS, B12, FES, PRALB, GFR, CMP #### [address] [address] GFR Non- >60 Normal [facility] ([place]) Comment on above: Result Comment: GFR Population mean for , Non- Americans Ages 20-29 = 116 mL/min/1.73 sq.m. Ages 30-39 = 107 mL/min/1.73 sq.m. Ages 40-49 = 99 mL/min/1.73 sq.m. Ages 50-59 = 93 mL/min/1.73 sq.m. Ages 60-69 = 85 mL/min/1.73 sq.m. Ages 70+ = 75 mL/min/1.73 sq.m. Chronic Kidney Disease: Less than 60 mL/min/1.73 square meters End Stage Renal Disease: Less than 15 mL/min/1.73 square meters Performed By: #### C BC, ADIFF, ANEU, FERR, FOL, MG, TSH, PHOS, B12, FES, PRALB, GFR, CMP #### [address] [address] .NEUABSon 03-17-2021 Neutrophil, Absolute 1.80 10 3/mcL Low 2.25-8.10 [facility] ([place]) Comment on above: Performed By: #### C BC, ADIFF, ANEU, FERR, FOL, MG, TSH, PHOS, B12, FES, PRALB, GFR, CMP #### [address] [address] BMPon 03-17-2021 BUN/Creatinine Ratio 15.9 ratio Normal 10.0-22.0 [facility] ([place]) Comment on above: Performed By: #### C BC, ADIFF, ANEU, FERR, FOL, MG, TSH, PHOS, B12, FES, PRALB, GFR, CMP #### [address] [address] Calcium [Mass/Vol] 9.3 mg/dL Normal 8.7-10.4 [facility] ([place]) Comment on above: Result Comment: No te - New Reference Range in effect 20 Performed By: #### C BC, ADIFF, ANEU, FERR, FOL, MG, TSH, PHOS, B12, FES, PRALB, GFR, CMP #### [address] [address] Chloride [Moles/Vol] 103 mmol/L Normal 98-110 [facility] ([place]) Comment on above: Performed By: #### C BC, ADIFF, ANEU, FERR, FOL, MG, TSH, PHOS, B12, FES, PRALB, GFR, CMP #### [address] [address] CO2 [Moles/Vol] 38 mmol/L High 22-32 [facility] ([place]) Comment on above: Performed By: #### C BC, ADIFF, ANEU, FERR, FOL, MG, TSH, PHOS, B12, FES, PRALB, GFR, CMP #### [address] [address] Creatinine [Mass/Vol] 0.63 mg/dL Normal 0.50-1.20 [facility] ([place]) Comment on above: Performed By: #### C BC, ADIFF, ANEU, FERR, FOL, MG, TSH, PHOS, B12, FES, PRALB, GFR, CMP #### [address] [address] Electrolyte Balance 1.0 mEq/L Low 4.0-15.0 [facility] ([place]) Comment on above: Performed By: #### C BC, ADIFF, ANEU, FERR, FOL, MG, TSH, PHOS, B12, FES, PRALB, GFR, CMP #### [address] [address] Glucose [Mass/Vol] 86 mg/dL Normal 70-110 [facility] ([place]) Comment on above: Performed By: #### C BC, ADIFF, ANEU, FERR, FOL, MG, TSH, PHOS, B12, FES, PRALB, GFR, CMP #### [place] [id number] Potassium [Moles/Vol] 4.2 mmol/L Normal 3.5-5.0 [facility] ([place]) Comment on above: Performed By: #### C BC, ADIFF, ANEU, FERR, FOL, MG, TSH, PHOS, B12, FES, PRALB, GFR, CMP #### [place] [id number] Sodium [Moles/Vol] 142 mmol/L Normal 136-145 [facility] ([place]) Comment on above: Performed By: #### C BC, ADIFF, ANEU, FERR, FOL, MG, TSH, PHOS, B12, FES, PRALB, GFR, CMP #### [place] [id number] Urea nitrogen [Mass/Vol] 10.0 mg/dL Normal 8.0-22.0 [facility] ([place]) Comment on above: Performed By: #### C BC, ADIFF, ANEU, FERR, FOL, MG, TSH, PHOS, B12, FES, PRALB, GFR, CMP #### [address] [address] CBCon 03-17-2021 Erythrocyte distribution width (RBC) [Ratio] 14.5 % Normal 11.5-15.5 [facility] ([place]) Comment on above: Performed By: #### C BC, ADIFF, ANEU, FERR, FOL, MG, TSH, PHOS, B12, FES, PRALB, GFR, CMP #### [place] [id number] Hematocrit (Bld) [Volume fraction] 27.4 % Low 34.0-46.0 [facility] ([place] Comment on above: Performed By: #### C BC, ADIFF, ANEU, FERR, FOL, MG, TSH, PHOS, B12, FES, PRALB, GFR, CMP #### [place] [address] Hgb 9.5 G/dL Low 12.0-16.0 [facility] ([place] Comment on above: Performed By: #### C BC, ADIFF, ANEU, FERR, FOL, MG, TSH, PHOS, B12, FES, PRALB, GFR, CMP #### [place] [address] MCH (RBC) [Entitic mass] 31.1 pg Normal 27.0-33.0 [facility] ([place] Comment on above: Performed By: #### C BC, ADIFF, ANEU, FERR, FOL, MG, TSH, PHOS, B12, FES, PRALB, GFR, CMP #### [place] [address] MCHC 34.7 G/dL Normal 32.0-36.0 [facility] ([place] Comment on above: Performed By: #### C BC, ADIFF, ANEU, FERR, FOL, MG, TSH, PHOS, B12, FES, PRALB, GFR, CMP #### [place] [address] MCV (RBC) [Entitic vol] 89.7 fL Normal 80.0-99.0 [facility] ([place] Comment on above: Performed By: #### C BC, ADIFF, ANEU, FERR, FOL, MG, TSH, PHOS, B12, FES, PRALB, GFR, CMP #### [place] [address] Platelet 153 10 3/mcL Normal 150-450 [facility] ([place]) Comment on above: Performed By: #### C BC, ADIFF, ANEU, FERR, FOL, MG, TSH, PHOS, B12, FES, PRALB, GFR, CMP #### [place] [id number] Platelet mean volume (Bld) [Entitic vol] 7.3 fL Normal 6.6-10.5 [facility] ([place]) Comment on above: Performed By: #### C BC, ADIFF, ANEU, FERR, FOL, MG, TSH, PHOS, B12, FES, PRALB, GFR, CMP #### [place] [address] RBC 3.05 10 6/mcL Low 4.10-5.30 [facility] ([place] Comment on above: Performed By: #### C BC, ADIFF, ANEU, FERR, FOL, MG, TSH, PHOS, B12, FES, PRALB, GFR, CMP #### [place] [address] WBC 4.30 10 3/mcL Low 4.50-10.80 [facility] ([place]) Comment on above: Performed By: #### C BC, ADIFF, ANEU, FERR, FOL, MG, TSH, PHOS, B12, FES, PRALB, GFR, CMP #### [place] [address] .Auto Diffon 03-15-2020 Basophil, Absolute 0.10 10 3/mcL Normal 0.00-0.27 [facility] ([place]) Comment on above: Performed By: #### C BC, ADIFF, ANEU, FERR, FOL, MG, TSH, PHOS, B12, FES, PRALB, GFR, CMP #### [place] [address] Basophils/100 WBC (Bld) 1.5 % Normal 0.0-2.5 [facility] ([place] Comment on above: Performed By: #### C BC, ADIFF, ANEU, FERR, FOL, MG, TSH, PHOS, B12, FES, PRALB, GFR, CMP #### [place] [address] Eosinophil, Absolute 0.20 10 3/mcL Normal 0.00-0.65 [facility] ([place]) Comment on above: Performed By: #### C BC, ADIFF, ANEU, FERR, FOL, MG, TSH, PHOS, B12, FES, PRALB, GFR, CMP #### [place] [address] Eosinophils/100 WBC (Bld) 4.4 % Normal 0.0-6.0 [facility] ([place]) Comment on above: Performed By: #### C BC, ADIFF, ANEU, FERR, FOL, MG, TSH, PHOS, B12, FES, PRALB, GFR, CMP #### [address] [address] Lymphocyte, Absolute 1.90 10 3/mcL Normal 0.90-4.32 [facility] ([place]) Comment on above: Performed By: #### C BC, ADIFF, ANEU, FERR, FOL, MG, TSH, PHOS, B12, FES, PRALB, GFR, CMP #### [address] [address] Lymphocytes/100 WBC (Bld) 45.5 % High 20.0-40.0 [facility] ([place]) Comment on above: Performed By: #### C BC, ADIFF, ANEU, FERR, FOL, MG, TSH, PHOS, B12, FES, PRALB, GFR, CMP #### [address] [address] Monocyte, Absolute 0.40 10 3/mcL Normal 0.09-1.40 [facility] ([place]) Comment on above: Performed By: #### C BC, ADIFF, ANEU, FERR, FOL, MG, TSH, PHOS, B12, FES, PRALB, GFR, CMP #### [address] [address] Monocytes/100 WBC (Bld) 9.0 % Normal 2.0-13.0 [facility] ([place]) Comment on above: Performed By: #### C BC, ADIFF, ANEU, FERR, FOL, MG, TSH, PHOS, B12, FES, PRALB, GFR, CMP #### [address] [address] Neutrophils/100 WBC (Bld) 39.6 % Low 50.0-75.0 [facility] ([place]) Comment on above: Performed By: #### C BC, ADIFF, ANEU, FERR, FOL, MG, TSH, PHOS, B12, FES, PRALB, GFR, CMP #### [address] [address] .GFRon 03-15-2021 GFR >60 Normal [facility] ([place]) Comment on above: Result Comment: GFR Population mean for , Non- Americans Ages 20-29 = 116 mL/min/1.73 sq.m. Ages 30-39 = 107 mL/min/1.73 sq.m. Ages 40-49 = 99 mL/min/1.73 sq.m. Ages 50-59 = 93 mL/min/1.73 sq.m. Ages 60-69 = 85 mL/min/1.73 sq.m. Ages 70+ = 75 mL/min/1.73 sq.m. Chronic Kidney Disease: Less than 60 mL/min/1.73 square meters End Stage Renal Disease: Less than 15 mL/min/1.73 square meters Performed By: #### C BC, ADIFF, ANEU, FERR, FOL, MG, TSH, PHOS, B12, FES, PRALB, GFR, CMP #### [address] [address] GFR Non- >60 Normal [facility] ([place]) Comment on above: Result Comment: GFR Population mean for , Non- Americans Ages 20-29 = 116 mL/min/1.73 sq.m. Ages 30-39 = 107 mL/min/1.73 sq.m. Ages 40-49 = 99 mL/min/1.73 sq.m. Ages 50-59 = 93 mL/min/1.73 sq.m. Ages 60-69 = 85 mL/min/1.73 sq.m. Ages 70+ = 75 mL/min/1.73 sq.m. Chronic Kidney Disease: Less than 60 mL/min/1.73 square meters End Stage Renal Disease: Less than 15 mL/min/1.73 square meters Performed By: #### C BC, ADIFF, ANEU, FERR, FOL, MG, TSH, PHOS, B12, FES, PRALB, GFR, CMP #### [address] [address] .NEUABSon 06-23-2021 Neutrophil, Absolute 1.60 10 3/mcL Low 2.25-8.10 [facility] ([place]) Comment on above: Performed By: #### C BC, ADIFF, ANEU, FERR, FOL, MG, TSH, PHOS, B12, FES, PRALB, GFR, CMP #### [address] [address] BMPon 03-15-2021 BUN/Creatinine Ratio 13.6 ratio Normal 10.0-22.0 [facility] ([place]) Comment on above: Performed By: #### C BC, ADIFF, ANEU, FERR, FOL, MG, TSH, PHOS, B12, FES, PRALB, GFR, CMP #### [address] [address] Calcium [Mass/Vol] 9.6 mg/dL Normal 8.7-10.4 [facility] ([place]) Comment on above: Result Comment: No te - New Reference Range in effect 20 Performed By: #### C BC, ADIFF, ANEU, FERR, FOL, MG, TSH, PHOS, B12, FES, PRALB, GFR, CMP #### [address] [address] Chloride [Moles/Vol] 103 mmol/L Normal 98-110 [facility] ([place]) Comment on above: Performed By: #### C BC, ADIFF, ANEU, FERR, FOL, MG, TSH, PHOS, B12, FES, PRALB, GFR, CMP #### [address] [address] CO2 [Moles/Vol] 37 mmol/L High 22-32 [facility] ([place]) Comment on above: Performed By: #### C BC, ADIFF, ANEU, FERR, FOL, MG, TSH, PHOS, B12, FES, PRALB, GFR, CMP #### [address] [address] Creatinine [Mass/Vol] 0.59 mg/dL Normal 0.50-1.20 [facility] ([place]) Comment on above: Performed By: #### C BC, ADIFF, ANEU, FERR, FOL, MG, TSH, PHOS, B12, FES, PRALB, GFR, CMP #### [address] [address] Electrolyte Balance 1.0 mEq/L Low 4.0-15.0 [facility] ([place]) Comment on above: Performed By: #### C BC, ADIFF, ANEU, FERR, FOL, MG, TSH, PHOS, B12, FES, PRALB, GFR, CMP #### [address] [address] Glucose [Mass/Vol] 87 mg/dL Normal 70-110 [facility] ([place]) Comment on above: Performed By: #### C BC, ADIFF, ANEU, FERR, FOL, MG, TSH, PHOS, B12, FES, PRALB, GFR, CMP #### [place] [id number] Potassium [Moles/Vol] 3.7 mmol/L Normal 3.5-5.0 [facility] ([place]) Comment on above: Performed By: #### C BC, ADIFF, ANEU, FERR, FOL, MG, TSH, PHOS, B12, FES, PRALB, GFR, CMP #### [place] [id number] Sodium [Moles/Vol] 141 mmol/L Normal 136-145 [facility] ([place]) Comment on above: Performed By: #### C BC, ADIFF, ANEU, FERR, FOL, MG, TSH, PHOS, B12, FES, PRALB, GFR, CMP #### [place] [id number] Urea nitrogen [Mass/Vol] 8.0 mg/dL Normal 8.0-22.0 [facility] ([place]) Comment on above: Performed By: #### C BC, ADIFF, ANEU, FERR, FOL, MG, TSH, PHOS, B12, FES, PRALB, GFR, CMP #### [address] [address] CBCon 03-15-2021 Erythrocyte distribution width (RBC) [Ratio] 14.7 % Normal 11.5-15.5 [facility] ([place]) Comment on above: Performed By: #### C BC, ADIFF, ANEU, FERR, FOL, MG, TSH, PHOS, B12, FES, PRALB, GFR, CMP #### [place] [address] Hematocrit (Bld) [Volume fraction] 28.9 % Low 34.0-46.0 [facility] ([place]) Comment on above: Performed By: #### C BC, ADIFF, ANEU, FERR, FOL, MG, TSH, PHOS, B12, FES, PRALB, GFR, CMP #### [place] [address] Hgb 10.2 G/dL Low 12.0-16.0 [facility] ([place] Comment on above: Performed By: #### C BC, ADIFF, ANEU, FERR, FOL, MG, TSH, PHOS, B12, FES, PRALB, GFR, CMP #### [place] [address] MCH (RBC) [Entitic mass] 31.4 pg Normal 27.0-33.0 [facility] ([place]) Comment on above: Performed By: #### C BC, ADIFF, ANEU, FERR, FOL, MG, TSH, PHOS, B12, FES, PRALB, GFR, CMP #### [place] [address] MCHC 35.5 G/dL Normal 32.0-36.0 [facility] ([place] Comment on above: Performed By: #### C BC, ADIFF, ANEU, FERR, FOL, MG, TSH, PHOS, B12, FES, PRALB, GFR, CMP #### [place] [address] MCV (RBC) [Entitic vol] 88.5 fL Normal 80.0-99.0 [facility] ([place] Comment on above: Performed By: #### C BC, ADIFF, ANEU, FERR, FOL, MG, TSH, PHOS, B12, FES, PRALB, GFR, CMP #### [place] [address] Platelet 152 10 3/mcL Normal 150-450 [facility] ([place]) Comment on above: Performed By: #### C BC, ADIFF, ANEU, FERR, FOL, MG, TSH, PHOS, B12, FES, PRALB, GFR, CMP #### [address] [address] Platelet mean volume (Bld) [Entitic vol] 7.2 fL Normal 6.6-10.5 [facility] ([place]) Comment on above: Performed By: #### C BC, ADIFF, ANEU, FERR, FOL, MG, TSH, PHOS, B12, FES, PRALB, GFR, CMP #### [place] [address] RBC 3.26 10 6/mcL Low 4.10-5.30 [facility] ([place]) Comment on above: Performed By: #### C BC, ADIFF, ANEU, FERR, FOL, MG, TSH, PHOS, B12, FES, PRALB, GFR, CMP #### [place] [address] WBC 4.20 10 3/mcL Low 4.50-10.80 [facility] ([place]) Comment on above: Performed By: #### C BC, ADIFF, ANEU, FERR, FOL, MG, TSH, PHOS, B12, FES, PRALB, GFR, CMP #### [place] [address] MRI SPINE CERVICAL W/ + W/O CONTRASTon 03-11-2021 MRI SPINE CERVICAL W/ + W/O CONTRAST ORIGINAL MRI of the Cervical Spine, 03/11/2021 10:18 AM INDICATION: follow up from [facility] COMPARISON: Outside MR January 2021 TECHNIQUE: 1. Sagittal T1-weighted images. 2. Sagittal T2-weighted images with and without fat saturation. 3. Axial T1-weighted images. 4. Axial T2-weighted images. 5. Axial and sagittal T1-weighted images following uncomplicated administration of gadolinium contrast. FINDINGS: There is C3 T2 instrumented fusion and C3 C6 laminectomy, with extensive metallic artifact. There is complete or near complete loss of disc space at C5-C6, with endplate destruction and irregular signal within the disc space. There is expansion of the anterior epidural space at this level, up to about 7 mm in thickness. Abnormal epidural thickening extending superiorly to the C1-C2. There is a small fluid collection adjacent to the spinous process extending from about C5-C6 through C7-T1, less than a cm in thickness. This may extend to the facet joints, particularly on the RIGHT. There is possibly mild T2 hyperintensity in the cervical cord at the C1 level. Signal within the more inferior cord is within normal limits. No abnormal enhancement is seen, but enhancement is particularly limited by metallic artifact. There is stenosis, most prominently at C1. Specific findings by level: C1-C2: There is mild stenosis with appreciable cord flattening. There is no significant neural foraminal narrowing. C2-C3: Evaluation is limited by metallic artifact. There is a most mild stenosis at this level, but no cord flattening or compression. C3-C4: There is mild spondylosis. C4-C5: There is very mild uncovertebral hypertrophy and very mild spondylosis C5-C6: There is no stenosis. There is possibly mild RIGHT neural foraminal narrowing. C6-C7 there is mild uncovertebral hypertrophy and mild spondylosis. C7-T1: There is mild uncovertebral hypertrophy and mild spondylosis IMPRESSION: 1. C4-C5 discitis with prominent expansion into the anterior epidural space, approximately 7 mm in thickness. This has significantly progressed since the comparison. Extension is not well defined due to metallic artifact but likely extends superior into the C1-C2 level and inferiorly to at least T1-T2. 2. Previously seen anterior epidural fluid at the C2-C3 level has resolved or significantly improved. Evaluation is somewhat limited by metallic artifact. Posterior fluid around the spinous processes and lower cervical sets is mostly unchanged. 3. C3 T2 instrumented fusion with C3 C6 laminectomy. This is seen on the comparison well. 4. Stenosis and mass effect at C1-C2 has improved since the comparison, mainly due to decreasing anterior epidural phlegmon at this level. 5. Milder degenerative changes at the remaining levels, without stenosis, variably evaluated due to metallic artifact. No definite abnormal signal within the cord, however. Interpreted By: Doni Anderson MD Preliminary Report By: Doni Anderson MD Electronically Signed By: Doni Anderson MD Dictated Date: 03/11/2021 3:32:06 PM Prelim Date: 03/11/2021 3:32:06 PM Sign Date: 03/11/2021 3:49:48 PM Ordering Provider:Jeremie Kim [facility] ([place]) MRI SPINE LUMBAR W/ + W/O CO NTRASTon 03-11-2021 MRI SPINE LUMBAR W/ + W/O CONTRAST ORIGINAL Lumbar spine MR 03/11/2021 11:01 AM INDICATION: follow up from [facility] COMPARISON: Outside MR January 2021 TECHNIQUE: 1. Sagittal T1-weighted images. 2. Sagittal T2-weighted images with and without fat saturation. 3. Axial T1-weighted images. 4. Axial T2-weighted images. 5. Axial and sagittal T1-weighted images following uncomplicated administration of intravenous gadolinium contrast. FINDINGS: There are 5 lumbar type vertebral bodies for the purposes of this dictation. There is mild LEFT convex lateral curvature. There is Schmorl's node formation at L2. Remaining vertebral bodies are intact. There is disc desiccation and disc space narrowing, most prominently at L3-L4. The tip of the conus is at the L1-L2 level. There is no abnormal signal within the visualized spinal or. There is no abnormal enhancement of the cord or its coverings there is no stenosis. Specific findings by level: L2-L3: There is a mild posterior disc bulge. There is Schmorl's node formation with mild associated edema and in enhancement. There is mild facet and ligamentum flavum hypertrophy. L3-L4: There is a large RIGHT lateral disc extrusion which extends into the extraforaminal compartment and impinges the exiting nerve root. There is mild edema and enhancement at the RIGHT endplates. There is mild facet and ligamentum flavum hypertrophy. There is lateral recess narrowing on the RIGHT, but no significant neural foraminal narrowing. There is mild enhancement around the facet joints LEFT greater than RIGHT. L4-L5: There is a mild posterior disc bulge. There is moderate LEFT and mild to moderate RIGHT facet hypertrophy. There is mild ligamentum flavum hypertrophy. There is mild enhancement around the facet joints LEFT greater than RIGHT. There is mild edema and enhancement in the RIGHT lateral disc space. There is mild LEFT neural foraminal narrowing. L5-S1: There is mild to moderate LEFT and mild RIGHT facet hypertrophy. There is moderate enhancement around the LEFT facet joint. IMPRESSION: 1. No abnormal epidural or paraspinous fluid collections. 2. Multilevel degenerative changes, without stenosis. There is neural foraminal narrowing, most prominently at L4-L5. 3. This includes a large RIGHT lateral extrusion at L3-L4 and facet degenerative changes in the lower lumbar spine. Interpreted By: Doni Anderson MD Preliminary Report By: Doni Anderson MD Electronically Signed By: Doni Anderson MD Dictated Date: 03/11/2021 3:18:05 PM Prelim Date: 03/11/2021 3:18:05 PM Sign Date: 03/11/2021 3:31:22 PM Ordering Provider:Jeremie Woodbinelaurence [facility] ([place]) MRI SPINE THORACIC W/ + W/O CONTRASTon 03-11-2021 MRI SPINE THORACIC W/ + W/O CONTRAST ORIGINAL Thoracic spine MR 03/11/2021 10:03 AM INDICATION: follow up from [facility] COMPARISON: Outside MR January 2019 TECHNIQUE: 1. Sagittal T1-weighted images. 2. Sagittal T2-weighted images with and without fat saturation. 3. Axial T1-weighted images. 4. Axial T2-weighted images. 5. Axial and sagittal T1-weighted images following uncomplicated administration of intravenous gadolinium contrast FINDINGS: Alignment is within normal limits. There is a cervical fusion extending through T2, with metallic artifact. The more inferior vertebral bodies are intact. Disc spaces are maintained. 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 There is no abnormal signal within the thoracic cord. There is no abnormal enhancement of the cord or its coverings; evaluation at T1 and T2 is limited by metallic artifact. There is no stenosis. There is mild dependent atelectasis and/or consolidation on the LEFT. IMPRESSION: 1. Cervical instrumented fusion extending through T2. Evaluation at T1 and T2 is accordingly limited by metallic artifact. 2. No abnormal fluid collection is seen here. No abnormal enhancement of the thoracic cord or its coverings Interpreted By: Doni Anderson MD Preliminary Report By: Doni Anderson MD Electronically Signed By: Doni Anderson MD Dictated Date: 03/11/2021 10:16:57 AM Prelim Date: 03/11/2021 12:06:39 PM Sign Date: 03/11/2021 1:04:53 PM Ordering Provider:Jeremie Weiss [facility] ([place]) .Auto Diffon 03-08-2021 Basophil, Absolute 0.00 10 3/mcL Normal 0.00-0.27 [facility] ([place]) Comment on above: Performed By: #### C BC, ADIFF, ANEU, FERR, FOL, MG, TSH, PHOS, B12, FES, PRALB, GFR, CMP #### [address] [address] Basophils/100 WBC (Bld) 1.2 % Normal 0.0-2.5 [facility] ([place]) Comment on above: Performed By: #### C BC, ADIFF, ANEU, FERR, FOL, MG, TSH, PHOS, B12, FES, PRALB, GFR, CMP #### [address] [address] Eosinophil, Absolute 0.20 10 3/mcL Normal 0.00-0.65 [facility] ([place]) Comment on above: Performed By: #### C BC, ADIFF, ANEU, FERR, FOL, MG, TSH, PHOS, B12, FES, PRALB, GFR, CMP #### [address] [address] Eosinophils/100 WBC (Bld) 5.2 % Normal 0.0-6.0 [facility] ([place]) Comment on above: Performed By: #### C BC, ADIFF, ANEU, FERR, FOL, MG, TSH, PHOS, B12, FES, PRALB, GFR, CMP #### [address] [address] Lymphocyte, Absolute 1.40 10 3/mcL Normal 0.90-4.32 [facility] ([place]) Comment on above: Performed By: #### C BC, ADIFF, ANEU, FERR, FOL, MG, TSH, PHOS, B12, FES, PRALB, GFR, CMP #### [address] [address] Lymphocytes/100 WBC (Bld) 44.7 % High 20.0-40.0 [facility] ([place]) Comment on above: Performed By: #### C BC, ADIFF, ANEU, FERR, FOL, MG, TSH, PHOS, B12, FES, PRALB, GFR, CMP #### [address] [address] Monocyte, Absolute 0.30 10 3/mcL Normal 0.09-1.40 [facility] ([place]) Comment on above: Performed By: #### C BC, ADIFF, ANEU, FERR, FOL, MG, TSH, PHOS, B12, FES, PRALB, GFR, CMP #### [address] [address] Monocytes/100 WBC (Bld) 8.5 % Normal 2.0-13.0 [facility] ([place]) Comment on above: Performed By: #### C BC, ADIFF, ANEU, FERR, FOL, MG, TSH, PHOS, B12, FES, PRALB, GFR, CMP #### [place] [address] Neutrophils/100 WBC (Bld) 40.4 % Low 50.0-75.0 [facility] ([place]) Comment on above: Performed By: #### C BC, ADIFF, ANEU, FERR, FOL, MG, TSH, PHOS, B12, FES, PRALB, GFR, CMP #### [address] [address] .GFRon 03-08-2021 GFR >60 Normal [facility] ([place]) Comment on above: Result Comment: GFR Population mean for , Non- Americans Ages 20-29 = 116 mL/min/1.73 sq.m. Ages 30-39 = 107 mL/min/1.73 sq.m. Ages 40-49 = 99 mL/min/1.73 sq.m. Ages 50-59 = 93 mL/min/1.73 sq.m. Ages 60-69 = 85 mL/min/1.73 sq.m. Ages 70+ = 75 mL/min/1.73 sq.m. Chronic Kidney Disease: Less than 60 mL/min/1.73 square meters End Stage Renal Disease: Less than 15 mL/min/1.73 square meters Performed By: #### C BC, ADIFF, ANEU, FERR, FOL, MG, TSH, PHOS, B12, FES, PRALB, GFR, CMP #### [address] [address] GFR Non- >60 Normal [facility] ([place]) Comment on above: Result Comment: GFR Population mean for , Non- Americans Ages 20-29 = 116 mL/min/1.73 sq.m. Ages 30-39 = 107 mL/min/1.73 sq.m. Ages 40-49 = 99 mL/min/1.73 sq.m. Ages 50-59 = 93 mL/min/1.73 sq.m. Ages 60-69 = 85 mL/min/1.73 sq.m. Ages 70+ = 75 mL/min/1.73 sq.m. Chronic Kidney Disease: Less than 60 mL/min/1.73 square meters End Stage Renal Disease: Less than 15 mL/min/1.73 square meters Performed By: #### C BC, ADIFF, ANEU, FERR, FOL, MG, TSH, PHOS, B12, FES, PRALB, GFR, CMP #### [address] [address] .NEUABSon 03-08-2021 Neutrophil, Absolute 1.30 10 3/mcL Low 2.25-8.10 [facility] ([place]) Comment on above: Performed By: #### C BC, ADIFF, ANEU, FERR, FOL, MG, TSH, PHOS, B12, FES, PRALB, GFR, CMP #### [address] [address] BMPon 03-08-2021 BUN/Creatinine Ratio 11.1 ratio Normal 10.0-22.0 [facility] ([place]) Comment on above: Performed By: #### C BC, ADIFF, ANEU, FERR, FOL, MG, TSH, PHOS, B12, FES, PRALB, GFR, CMP #### [address] [address] Calcium [Mass/Vol] 9.2 mg/dL Normal 8.7-10.4 [facility] ([place]) Comment on above: Result Comment: No te - New Reference Range in effect 20 Performed By: #### C BC, ADIFF, ANEU, FERR, FOL, MG, TSH, PHOS, B12, FES, PRALB, GFR, CMP #### [address] [address] Chloride [Moles/Vol] 104 mmol/L Normal 98-110 [facility] ([place]) Comment on above: Performed By: #### C BC, ADIFF, ANEU, FERR, FOL, MG, TSH, PHOS, B12, FES, PRALB, GFR, CMP #### [address] [address] CO2 [Moles/Vol] 33 mmol/L High 22-32 [facility] ([place]) Comment on above: Performed By: #### C BC, ADIFF, ANEU, FERR, FOL, MG, TSH, PHOS, B12, FES, PRALB, GFR, CMP #### [address] [address] Creatinine [Mass/Vol] 0.63 mg/dL Normal 0.50-1.20 [facility] ([place]) Comment on above: Performed By: #### C BC, ADIFF, ANEU, FERR, FOL, MG, TSH, PHOS, B12, FES, PRALB, GFR, CMP #### [address] [address] Electrolyte Balance 3.0 mEq/L Low 4.0-15.0 [facility] ([place]) Comment on above: Performed By: #### C BC, ADIFF, ANEU, FERR, FOL, MG, TSH, PHOS, B12, FES, PRALB, GFR, CMP #### [address] [address] Glucose [Mass/Vol] 86 mg/dL Normal 70-110 [facility] ([place]) Comment on above: Performed By: #### C BC, ADIFF, ANEU, FERR, FOL, MG, TSH, PHOS, B12, FES, PRALB, GFR, CMP #### [address] [address] Potassium [Moles/Vol] 3.7 mmol/L Normal 3.5-5.0 [facility] ([place]) Comment on above: Performed By: #### C BC, ADIFF, ANEU, FERR, FOL, MG, TSH, PHOS, B12, FES, PRALB, GFR, CMP #### [address] [address] Sodium [Moles/Vol] 140 mmol/L Normal 136-145 [facility] ([place]) Comment on above: Performed By: #### C BC, ADIFF, ANEU, FERR, FOL, MG, TSH, PHOS, B12, FES, PRALB, GFR, CMP #### [place] [id number] Urea nitrogen [Mass/Vol] 7.0 mg/dL Low 8.0-22.0 [facility] ([place]) Comment on above: Performed By: #### C BC, ADIFF, ANEU, FERR, FOL, MG, TSH, PHOS, B12, FES, PRALB, GFR, CMP #### [address] [address] CBCon 03-08-2021 Erythrocyte distribution width (RBC) [Ratio] 15.1 % Normal 11.5-15.5 [facility] ([place]) Comment on above: Performed By: #### C BC, ADIFF, ANEU, FERR, FOL, MG, TSH, PHOS, B12, FES, PRALB, GFR, CMP #### [place] [id number] Hematocrit (Bld) [Volume fraction] 28.1 % Low 34.0-46.0 [facility] ([place]) Comment on above: Performed By: #### C BC, ADIFF, ANEU, FERR, FOL, MG, TSH, PHOS, B12, FES, PRALB, GFR, CMP #### [address] [address] Hgb 9.5 G/dL Low 12.0-16.0 [facility] ([place]) Comment on above: Performed By: #### C BC, ADIFF, ANEU, FERR, FOL, MG, TSH, PHOS, B12, FES, PRALB, GFR, CMP #### [address] [address] MCH (RBC) [Entitic mass] 30.2 pg Normal 27.0-33.0 [facility] ([place]) Comment on above: Performed By: #### C BC, ADIFF, ANEU, FERR, FOL, MG, TSH, PHOS, B12, FES, PRALB, GFR, CMP #### [address] [address] MCHC 33.9 G/dL Normal 32.0-36.0 [facility] ([place]) Comment on above: Performed By: #### C BC, ADIFF, ANEU, FERR, FOL, MG, TSH, PHOS, B12, FES, PRALB, GFR, CMP #### [place] [address] MCV (RBC) [Entitic vol] 89.2 fL Normal 80.0-99.0 [facility] ([place]) Comment on above: Performed By: #### C BC, ADIFF, ANEU, FERR, FOL, MG, TSH, PHOS, B12, FES, PRALB, GFR, CMP #### [place] [address] Platelet 145 10 3/mcL Low 150-450 [facility] ([place]) Comment on above: Performed By: #### C BC, ADIFF, ANEU, FERR, FOL, MG, TSH, PHOS, B12, FES, PRALB, GFR, CMP #### [place] [address] Platelet mean volume (Bld) [Entitic vol] 6.9 fL Normal 6.6-10.5 [facility] ([place]) Comment on above: Performed By: #### C BC, ADIFF, ANEU, FERR, FOL, MG, TSH, PHOS, B12, FES, PRALB, GFR, CMP #### [place] [address] RBC 3.15 10 6/mcL Low 4.10-5.30 [facility] ([place]) Comment on above: Performed By: #### C BC, ADIFF, ANEU, FERR, FOL, MG, TSH, PHOS, B12, FES, PRALB, GFR, CMP #### [place] [id number] WBC 3.20 10 3/mcL Low 4.50-10.80 [facility] ([place]) Comment on above: Performed By: #### C BC, ADIFF, ANEU, FERR, FOL, MG, TSH, PHOS, B12, FES, PRALB, GFR, CMP #### [address] 03-08-2021 LDose Vancomycin: (random) See eMAR [facility] ([place]) Comment on above: Performed By: #### C BC, ADIFF, ANEU, FERR, FOL, MG, TSH, PHOS, B12, FES, PRALB, GFR, CMP #### [place] [address] Vancomycin Lvl (random) 21.3 mcg/mL Normal [facility] ([place]) Comment on above: Performed By: #### C BC, ADIFF, ANEU, FERR, FOL, MG, TSH, PHOS, B12, FES, PRALB, GFR, CMP #### [address] 03-07-2021 LDose Vancomycin:(trough) See [facility] ([place]) Comment on above: Performed By: #### C BC, ADIFF, ANEU, FERR, FOL, MG, TSH, PHOS, B12, FES, PRALB, GFR, CMP #### [place] [address] Vancomycin Tr 27.0 mcg/mL Critically abnormal 5.0-20.0 [facility] ([place]) Comment on above: Performed By: #### C BC, ADIFF, ANEU, FERR, FOL, MG, TSH, PHOS, B12, FES, PRALB, GFR, CMP #### [address] 03-01-2021 LDose Vancomycin:(trough) See [facility] ([place]) Comment on above: Performed By: #### C BC, ADIFF, ANEU, FERR, FOL, MG, TSH, PHOS, B12, FES, PRALB, GFR, CMP #### [place] [address] Vancomycin Tr 16.3 mcg/mL Normal 5.0-20.0 [facility] ([place]) Comment on above: Performed By: #### C BC, ADIFF, ANEU, FERR, FOL, MG, TSH, PHOS, B12, FES, PRALB, GFR, CMP #### [address] [address] .Auto Diffon 02-27-2020 Basophil, Absolute 0.00 10 3/mcL Normal 0.00-0.27 [facility] ([place]) Comment on above: Performed By: #### C BC, ADIFF, ANEU, FERR, FOL, MG, TSH, PHOS, B12, FES, PRALB, GFR, CMP #### [address] [address] Basophils/100 WBC (Bld) 0.9 % Normal 0.0-2.5 [facility] ([place]) Comment on above: Performed By: #### C BC, ADIFF, ANEU, FERR, FOL, MG, TSH, PHOS, B12, FES, PRALB, GFR, CMP #### [place] [address] Eosinophil, Absolute 0.20 10 3/mcL Normal 0.00-0.65 [facility] ([place]) Comment on above: Performed By: #### C BC, ADIFF, ANEU, FERR, FOL, MG, TSH, PHOS, B12, FES, PRALB, GFR, CMP #### [place] [address] Eosinophils/100 WBC (Bld) 6.8 % High 0.0-6.0 [facility] ([place]) Comment on above: Performed By: #### C BC, ADIFF, ANEU, FERR, FOL, MG, TSH, PHOS, B12, FES, PRALB, GFR, CMP #### [address] [address] Lymphocyte, Absolute 1.20 10 3/mcL Normal 0.90-4.32 [facility] ([place]) Comment on above: Performed By: #### C BC, ADIFF, ANEU, FERR, FOL, MG, TSH, PHOS, B12, FES, PRALB, GFR, CMP #### [address] [address] Lymphocytes/100 WBC (Bld) 37.5 % Normal 20.0-40.0 [facility] ([place]) Comment on above: Performed By: #### C BC, ADIFF, ANEU, FERR, FOL, MG, TSH, PHOS, B12, FES, PRALB, GFR, CMP #### [address] [address] Monocyte, Absolute 0.30 10 3/mcL Normal 0.09-1.40 [facility] ([place]) Comment on above: Performed By: #### C BC, ADIFF, ANEU, FERR, FOL, MG, TSH, PHOS, B12, FES, PRALB, GFR, CMP #### [address] [address] Monocytes/100 WBC (Bld) 8.3 % Normal 2.0-13.0 [facility] ([place]) Comment on above: Performed By: #### C BC, ADIFF, ANEU, FERR, FOL, MG, TSH, PHOS, B12, FES, PRALB, GFR, CMP #### [address] [address] Neutrophils/100 WBC (Bld) 46.5 % Low 50.0-75.0 [facility] ([place]) Comment on above: Performed By: #### C BC, ADIFF, ANEU, FERR, FOL, MG, TSH, PHOS, B12, FES, PRALB, GFR, CMP #### [address] [address] .GFRon 02-27-2021 GFR Non- >60 Normal [facility] ([place]) Comment on above: Result Comment: GFR Population mean for , Non- Americans Ages 20-29 = 116 mL/min/1.73 sq.m. Ages 30-39 = 107 mL/min/1.73 sq.m. Ages 40-49 = 99 mL/min/1.73 sq.m. Ages 50-59 = 93 mL/min/1.73 sq.m. Ages 60-69 = 85 mL/min/1.73 sq.m. Ages 70+ = 75 mL/min/1.73 sq.m. Chronic Kidney Disease: Less than 60 mL/min/1.73 square meters End Stage Renal Disease: Less than 15 mL/min/1.73 square meters Performed By: #### C BC, ADIFF, ANEU, FERR, FOL, MG, TSH, PHOS, B12, FES, PRALB, GFR, CMP #### [address] [address] GFR >60 Normal [facility] ([place]) Comment on above: Result Comment: GFR Population mean for , Non- Americans Ages 20-29 = 116 mL/min/1.73 sq.m. Ages 30-39 = 107 mL/min/1.73 sq.m. Ages 40-49 = 99 mL/min/1.73 sq.m. Ages 50-59 = 93 mL/min/1.73 sq.m. Ages 60-69 = 85 mL/min/1.73 sq.m. Ages 70+ = 75 mL/min/1.73 sq.m. Chronic Kidney Disease: Less than 60 mL/min/1.73 square meters End Stage Renal Disease: Less than 15 mL/min/1.73 square meters Performed By: #### C BC, ADIFF, ANEU, FERR, FOL, MG, TSH, PHOS, B12, FES, PRALB, GFR, CMP #### [address] [address] .NEUABSon 02-27-2021 Neutrophil, Absolute 1.50 10 3/mcL Low 2.25-8.10 [facility] ([place]) Comment on above: Performed By: #### C BC, ADIFF, ANEU, FERR, FOL, MG, TSH, PHOS, B12, FES, PRALB, GFR, CMP #### [address] [address] BMPon 02-27-2021 BUN/Creatinine Ratio 12.9 ratio Normal 10.0-22.0 [facility] ([place]) Comment on above: Performed By: #### C BC, ADIFF, ANEU, FERR, FOL, MG, TSH, PHOS, B12, FES, PRALB, GFR, CMP #### [address] [address] Calcium [Mass/Vol] 8.9 mg/dL Normal 8.7-10.4 [facility] ([place]) Comment on above: Result Comment: No te - New Reference Range in effect 20 Performed By: #### C BC, ADIFF, ANEU, FERR, FOL, MG, TSH, PHOS, B12, FES, PRALB, GFR, CMP #### [address] [address] Chloride [Moles/Vol] 108 mmol/L Normal 98-110 [facility] ([place]) Comment on above: Performed By: #### C BC, ADIFF, ANEU, FERR, FOL, MG, TSH, PHOS, B12, FES, PRALB, GFR, CMP #### [address] [address] CO2 [Moles/Vol] 30 mmol/L Normal 22-32 [facility] ([place]) Comment on above: Performed By: #### C BC, ADIFF, ANEU, FERR, FOL, MG, TSH, PHOS, B12, FES, PRALB, GFR, CMP #### [address] [address] Creatinine [Mass/Vol] 0.62 mg/dL Normal 0.50-1.20 [facility] ([place]) Comment on above: Performed By: #### C BC, ADIFF, ANEU, FERR, FOL, MG, TSH, PHOS, B12, FES, PRALB, GFR, CMP #### [address] [address] Electrolyte Balance 4.0 mEq/L Normal 4.0-15.0 [facility] ([place]) Comment on above: Performed By: #### C BC, ADIFF, ANEU, FERR, FOL, MG, TSH, PHOS, B12, FES, PRALB, GFR, CMP #### [address] [address] Glucose [Mass/Vol] 87 mg/dL Normal 70-110 [facility] ([place]) Comment on above: Performed By: #### C BC, ADIFF, ANEU, FERR, FOL, MG, TSH, PHOS, B12, FES, PRALB, GFR, CMP #### [address] [address] Potassium [Moles/Vol] 3.3 mmol/L Low 3.5-5.0 [facility] ([place]) Comment on above: Performed By: #### C BC, ADIFF, ANEU, FERR, FOL, MG, TSH, PHOS, B12, FES, PRALB, GFR, CMP #### [address] [address] Sodium [Moles/Vol] 142 mmol/L Normal 136-145 [facility] ([place]) Comment on above: Performed By: #### C BC, ADIFF, ANEU, FERR, FOL, MG, TSH, PHOS, B12, FES, PRALB, GFR, CMP #### [address] [address] Urea nitrogen [Mass/Vol] 8.0 mg/dL Normal 8.0-22.0 [facility] ([place]) Comment on above: Performed By: #### C BC, ADIFF, ANEU, FERR, FOL, MG, TSH, PHOS, B12, FES, PRALB, GFR, CMP #### [address] [address] CBCon 02-27-2021 Erythrocyte distribution width (RBC) [Ratio] 16.3 % High 11.5-15.5 [facility] ([place]) Comment on above: Performed By: #### C BC, ADIFF, ANEU, FERR, FOL, MG, TSH, PHOS, B12, FES, PRALB, GFR, CMP #### [address] [address] Hematocrit (Bld) [Volume fraction] 25.6 % Low 34.0-46.0 [facility] ([place]) Comment on above: Performed By: #### C BC, ADIFF, ANEU, FERR, FOL, MG, TSH, PHOS, B12, FES, PRALB, GFR, CMP #### [place] [address] Hgb 8.5 G/dL Low 12.0-16.0 [facility] ([place]) Comment on above: Performed By: #### C BC, ADIFF, ANEU, FERR, FOL, MG, TSH, PHOS, B12, FES, PRALB, GFR, CMP #### [place] [address] MCH (RBC) [Entitic mass] 30.4 pg Normal 27.0-33.0 [facility] ([place]) Comment on above: Performed By: #### C BC, ADIFF, ANEU, FERR, FOL, MG, TSH, PHOS, B12, FES, PRALB, GFR, CMP #### [place] [address] MCHC 33.3 G/dL Normal 32.0-36.0 [facility] ([place]) Comment on above: Performed By: #### C BC, ADIFF, ANEU, FERR, FOL, MG, TSH, PHOS, B12, FES, PRALB, GFR, CMP #### [place] [address] MCV (RBC) [Entitic vol] 91.3 fL Normal 80.0-99.0 [facility] ([place]) Comment on above: Performed By: #### C BC, ADIFF, ANEU, FERR, FOL, MG, TSH, PHOS, B12, FES, PRALB, GFR, CMP #### [place] [address] Platelet 157 10 3/mcL Normal 150-450 [facility] ([place]) Comment on above: Performed By: #### C BC, ADIFF, ANEU, FERR, FOL, MG, TSH, PHOS, B12, FES, PRALB, GFR, CMP #### [place] [address] Platelet mean volume (Bld) [Entitic vol] 7.6 fL Normal 6.6-10.5 [facility] ([place]) Comment on above: Performed By: #### C BC, ADIFF, ANEU, FERR, FOL, MG, TSH, PHOS, B12, FES, PRALB, GFR, CMP #### [place] [address] RBC 2.81 10 6/mcL Low 4.10-5.30 [facility] ([place]) Comment on above: Performed By: #### C BC, ADIFF, ANEU, FERR, FOL, MG, TSH, PHOS, B12, FES, PRALB, GFR, CMP #### [place] [address] WBC 3.20 10 3/mcL Low 4.50-10.80 [facility] ([place]) Comment on above: Performed By: #### C BC, ADIFF, ANEU, FERR, FOL, MG, TSH, PHOS, B12, FES, PRALB, GFR, CMP #### [place] [address] PRALBon 02-27-2021 Prealbumin [Mass/Vol] 9.2 mg/dL Low 10.0-40.0 [facility] ([place]) Comment on above: Result Comment: No te - New Reference Range in effect 20 Performed By: #### C BC, ADIFF, ANEU, FERR, FOL, MG, TSH, PHOS, B12, FES, PRALB, GFR, CMP #### [place] [address] VANCTon 02-24-2021 LDose Vancomycin:(trough) See eMAR Normal [facility] ([place]) Comment on above: Performed By: #### C BC, ADIFF, ANEU, FERR, FOL, MG, TSH, PHOS, B12, FES, PRALB, GFR, CMP #### [place] [address] Vancomycin Tr 17.1 mcg/mL Normal 5.0-20.0 [facility] ([place]) Comment on above: Performed By: #### C BC, ADIFF, ANEU, FERR, FOL, MG, TSH, PHOS, B12, FES, PRALB, GFR, CMP #### [place] [address] .Auto Diffon 02-22-2021 Basophil, Absolute 0.00 10 3/mcL Normal 0.00-0.27 [facility] ([place]) Comment on above: Performed By: #### C BC, ADIFF, ANEU, FERR, FOL, MG, TSH, PHOS, B12, FES, PRALB, GFR, CMP #### [address] [address] Basophils/100 WBC (Bld) 0.7 % Normal 0.0-2.5 [facility] ([place]) Comment on above: Performed By: #### C BC, ADIFF, ANEU, FERR, FOL, MG, TSH, PHOS, B12, FES, PRALB, GFR, CMP #### [address] [address] Eosinophil, Absolute 0.20 10 3/mcL Normal 0.00-0.65 [facility] ([place]) Comment on above: Performed By: #### C BC, ADIFF, ANEU, FERR, FOL, MG, TSH, PHOS, B12, FES, PRALB, GFR, CMP #### [address] [address] Eosinophils/100 WBC (Bld) 4.9 % Normal 0.0-6.0 [facility] ([place]) Comment on above: Performed By: #### C BC, ADIFF, ANEU, FERR, FOL, MG, TSH, PHOS, B12, FES, PRALB, GFR, CMP #### [address] [address] Lymphocyte, Absolute 1.40 10 3/mcL Normal 0.90-4.32 A [facility] ([place]) Comment on above: Performed By: #### C BC, ADIFF, ANEU, FERR, FOL, MG, TSH, PHOS, B12, FES, PRALB, GFR, CMP #### [address] [address] Lymphocytes/100 WBC (Bld) 33.8 % Normal 20.0-40.0 [facility] ([place]) Comment on above: Performed By: #### C BC, ADIFF, ANEU, FERR, FOL, MG, TSH, PHOS, B12, FES, PRALB, GFR, CMP #### [address] [address] Monocyte, Absolute 0.30 10 3/mcL Normal 0.09-1.40 [facility] ([place]) Comment on above: Performed By: #### C BC, ADIFF, ANEU, FERR, FOL, MG, TSH, PHOS, B12, FES, PRALB, GFR, CMP #### [address] [address] Monocytes/100 WBC (Bld) 8.1 % Normal 2.0-13.0 [facility] ([place]) Comment on above: Performed By: #### C BC, ADIFF, ANEU, FERR, FOL, MG, TSH, PHOS, B12, FES, PRALB, GFR, CMP #### [address] [address] Neutrophils/100 WBC (Bld) 52.5 % Normal 50.0-75.0 [facility] ([place]) Comment on above: Performed By: #### C BC, ADIFF, ANEU, FERR, FOL, MG, TSH, PHOS, B12, FES, PRALB, GFR, CMP #### [address] [address] .GFRon 02-22-2021 GFR >60 Normal [facility] ([place]) Comment on above: Result Comment: GFR Population mean for , Non- Americans Ages 20-29 = 116 mL/min/1.73 sq.m. Ages 30-39 = 107 mL/min/1.73 sq.m. Ages 40-49 = 99 mL/min/1.73 sq.m. Ages 50-59 = 93 mL/min/1.73 sq.m. Ages 60-69 = 85 mL/min/1.73 sq.m. Ages 70+ = 75 mL/min/1.73 sq.m. Chronic Kidney Disease: Less than 60 mL/min/1.73 square meters End Stage Renal Disease: Less than 15 mL/min/1.73 square meters Performed By: #### C BC, ADIFF, ANEU, FERR, FOL, MG, TSH, PHOS, B12, FES, PRALB, GFR, CMP #### [address] [address] GFR Non- >60 Normal [facility] ([place]) Comment on above: Result Comment: GFR Population mean for , Non- Americans Ages 20-29 = 116 mL/min/1.73 sq.m. Ages 30-39 = 107 mL/min/1.73 sq.m. Ages 40-49 = 99 mL/min/1.73 sq.m. Ages 50-59 = 93 mL/min/1.73 sq.m. Ages 60-69 = 85 mL/min/1.73 sq.m. Ages 70+ = 75 mL/min/1.73 sq.m. Chronic Kidney Disease: Less than 60 mL/min/1.73 square meters End Stage Renal Disease: Less than 15 mL/min/1.73 square meters Performed By: #### C BC, ADIFF, ANEU, FERR, FOL, MG, TSH, PHOS, B12, FES, PRALB, GFR, CMP #### [address] [address] .NEUABSon 02-22-2021 Neutrophil, Absolute 2.10 10 3/mcL Low 2.25-8.10 [facility] ([place]) Comment on above: Performed By: #### C BC, ADIFF, ANEU, FERR, FOL, MG, TSH, PHOS, B12, FES, PRALB, GFR, CMP #### [address] [address] BMPon 02-22-2021 BUN/Creatinine Ratio 17.4 ratio Normal 10.0-22.0 [facility] ([place]) Comment on above: Performed By: #### C BC, ADIFF, ANEU, FERR, FOL, MG, TSH, PHOS, B12, FES, PRALB, GFR, CMP #### [place] [id number] Calcium [Mass/Vol] 9.0 mg/dL Normal 8.7-10.4 [facility] ([place]) Comment on above: Result Comment: No te - New Reference Range in effect 20 Performed By: #### C BC, ADIFF, ANEU, FERR, FOL, MG, TSH, PHOS, B12, FES, PRALB, GFR, CMP #### [address] [address] Chloride [Moles/Vol] 107 mmol/L Normal 98-110 [facility] ([place]) Comment on above: Performed By: #### C BC, ADIFF, ANEU, FERR, FOL, MG, TSH, PHOS, B12, FES, PRALB, GFR, CMP #### [address] [address] CO2 [Moles/Vol] 31 mmol/L Normal 22-32 [facility] ([place]) Comment on above: Performed By: #### C BC, ADIFF, ANEU, FERR, FOL, MG, TSH, PHOS, B12, FES, PRALB, GFR, CMP #### [address] [address] Creatinine [Mass/Vol] 0.69 mg/dL Normal 0.50-1.20 [facility] ([place]) Comment on above: Performed By: #### C BC, ADIFF, ANEU, FERR, FOL, MG, TSH, PHOS, B12, FES, PRALB, GFR, CMP #### [address] [address] Electrolyte Balance 1.0 mEq/L Low 4.0-15.0 [facility] ([place]) Comment on above: Performed By: #### C BC, ADIFF, ANEU, FERR, FOL, MG, TSH, PHOS, B12, FES, PRALB, GFR, CMP #### [address] [address] Glucose [Mass/Vol] 82 mg/dL Normal 70-110 [facility] ([place]) Comment on above: Performed By: #### C BC, ADIFF, ANEU, FERR, FOL, MG, TSH, PHOS, B12, FES, PRALB, GFR, CMP #### [address] [address] Potassium [Moles/Vol] 3.6 mmol/L Normal 3.5-5.0 [facility] ([place]) Comment on above: Performed By: #### C BC, ADIFF, ANEU, FERR, FOL, MG, TSH, PHOS, B12, FES, PRALB, GFR, CMP #### [place] [id number] Sodium [Moles/Vol] 139 mmol/L Normal 136-145 [facility] ([place]) Comment on above: Performed By: #### C BC, ADIFF, ANEU, FERR, FOL, MG, TSH, PHOS, B12, FES, PRALB, GFR, CMP #### [place] [id number] Urea nitrogen [Mass/Vol] 12.0 mg/dL Normal 8.0-22.0 [facility] ([place]) Comment on above: Performed By: #### C BC, ADIFF, ANEU, FERR, FOL, MG, TSH, PHOS, B12, FES, PRALB, GFR, CMP #### [place] [id number] CBCon 02-22-2021 Erythrocyte distribution width (RBC) [Ratio] 17.0 % High 11.5-15.5 [facility] ([place]) Comment on above: Performed By: #### C BC, ADIFF, ANEU, FERR, FOL, MG, TSH, PHOS, B12, FES, PRALB, GFR, CMP #### [place] [address] Hematocrit (Bld) [Volume fraction] 25.0 % Low 34.0-46.0 [facility] ([place]) Comment on above: Performed By: #### C BC, ADIFF, ANEU, FERR, FOL, MG, TSH, PHOS, B12, FES, PRALB, GFR, CMP #### [place] [id number] Hgb 8.6 G/dL Low 12.0-16.0 [facility] ([place]) Comment on above: Performed By: #### C BC, ADIFF, ANEU, FERR, FOL, MG, TSH, PHOS, B12, FES, PRALB, GFR, CMP #### [place] [id number] MCH (RBC) [Entitic mass] 31.2 pg Normal 27.0-33.0 [facility] ([place]) Comment on above: Performed By: #### C BC, ADIFF, ANEU, FERR, FOL, MG, TSH, PHOS, B12, FES, PRALB, GFR, CMP #### [address] [address] MCHC 34.3 G/dL Normal 32.0-36.0 [facility] ([place]) Comment on above: Performed By: #### C BC, ADIFF, ANEU, FERR, FOL, MG, TSH, PHOS, B12, FES, PRALB, GFR, CMP #### [place] [address] MCV (RBC) [Entitic vol] 90.9 fL Normal 80.0-99.0 [facility] ([place]) Comment on above: Performed By: #### C BC, ADIFF, ANEU, FERR, FOL, MG, TSH, PHOS, B12, FES, PRALB, GFR, CMP #### [place] [address] Platelet 179 10 3/mcL Normal 150-450 [facility] ([place]) Comment on above: Performed By: #### C BC, ADIFF, ANEU, FERR, FOL, MG, TSH, PHOS, B12, FES, PRALB, GFR, CMP #### [place] [address] Platelet mean volume (Bld) [Entitic vol] 7.7 fL Normal 6.6-10.5 [facility] ([place]) Comment on above: Performed By: #### C BC, ADIFF, ANEU, FERR, FOL, MG, TSH, PHOS, B12, FES, PRALB, GFR, CMP #### [place] [id number] RBC 2.75 10 6/mcL Low 4.10-5.30 [facility] ([place]) Comment on above: Performed By: #### C BC, ADIFF, ANEU, FERR, FOL, MG, TSH, PHOS, B12, FES, PRALB, GFR, CMP #### [place] [id number] WBC 4.10 10 3/mcL Low 4.50-10.80 [facility] ([place]) Comment on above: Performed By: #### C BC, ADIFF, ANEU, FERR, FOL, MG, TSH, PHOS, B12, FES, PRALB, GFR, CMP #### [place] [address] VANCTon 02-22-2021 LDose Vancomycin:(trough) See eMAR Normal [facility] ([place]) Comment on above: Performed By: #### C BC, ADIFF, ANEU, FERR, FOL, MG, TSH, PHOS, B12, FES, PRALB, GFR, CMP #### [place] [address] Vancomycin Tr 23.7 mcg/mL Critically abnormal 5.0-20.0 [facility] ([place]) Comment on above: Performed By: #### C BC, ADIFF, ANEU, FERR, FOL, MG, TSH, PHOS, B12, FES, PRALB, GFR, CMP #### [place] [address] PRALBon 02-20-2021 Prealbumin [Mass/Vol] 14.2 mg/dL Normal 10.0-40.0 [facility] ([place]) Comment on above: Result Comment: No te - New Reference Range in effect 20 Performed By: #### C BC, ADIFF, ANEU, FERR, FOL, MG, TSH, PHOS, B12, FES, PRALB, GFR, CMP #### [place] [address] .Auto Diffon 02-17-2021 Basophil, Absolute 0.00 10 3/mcL Normal 0.00-0.27 [facility] ([place]) Comment on above: Performed By: #### C BC, ADIFF, ANEU, FERR, FOL, MG, TSH, PHOS, B12, FES, PRALB, GFR, CMP #### [place] [address] Basophils/100 WBC (Bld) 1.1 % Normal 0.0-2.5 [facility] ([place]) Comment on above: Performed By: #### C BC, ADIFF, ANEU, FERR, FOL, MG, TSH, PHOS, B12, FES, PRALB, GFR, CMP #### [address] [address] Eosinophil, Absolute 0.20 10 3/mcL Normal 0.00-0.65 A [facility] ([place]) Comment on above: Performed By: #### C BC, ADIFF, ANEU, FERR, FOL, MG, TSH, PHOS, B12, FES, PRALB, GFR, CMP #### [address] [address] Eosinophils/100 WBC (Bld) 4.8 % Normal 0.0-6.0 [facility] ([place]) Comment on above: Performed By: #### C BC, ADIFF, ANEU, FERR, FOL, MG, TSH, PHOS, B12, FES, PRALB, GFR, CMP #### [address] [address] Lymphocyte, Absolute 1.10 10 3/mcL Normal 0.90-4.32 A [facility] ([place]) Comment on above: Performed By: #### C BC, ADIFF, ANEU, FERR, FOL, MG, TSH, PHOS, B12, FES, PRALB, GFR, CMP #### [address] [address] Lymphocytes/100 WBC (Bld) 28.3 % Normal 20.0-40.0 [facility] ([place]) Comment on above: Performed By: #### C BC, ADIFF, ANEU, FERR, FOL, MG, TSH, PHOS, B12, FES, PRALB, GFR, CMP #### [address] [address] Monocyte, Absolute 0.40 10 3/mcL Normal 0.09-1.40 [facility] ([place]) Comment on above: Performed By: #### C BC, ADIFF, ANEU, FERR, FOL, MG, TSH, PHOS, B12, FES, PRALB, GFR, CMP #### [address] [address] Monocytes/100 WBC (Bld) 8.9 % Normal 2.0-13.0 [facility] ([place]) Comment on above: Performed By: #### C BC, ADIFF, ANEU, FERR, FOL, MG, TSH, PHOS, B12, FES, PRALB, GFR, CMP #### [address] [address] Neutrophils/100 WBC (Bld) 56.9 % Normal 50.0-75.0 [facility] ([place]) Comment on above: Performed By: #### C BC, ADIFF, ANEU, FERR, FOL, MG, TSH, PHOS, B12, FES, PRALB, GFR, CMP #### [address] [address] .GFRon 02-17-2021 GFR Non- >60 Normal [facility] ([place]) Comment on above: Result Comment: GFR Population mean for , Non- Americans Ages 20-29 = 116 mL/min/1.73 sq.m. Ages 30-39 = 107 mL/min/1.73 sq.m. Ages 40-49 = 99 mL/min/1.73 sq.m. Ages 50-59 = 93 mL/min/1.73 sq.m. Ages 60-69 = 85 mL/min/1.73 sq.m. Ages 70+ = 75 mL/min/1.73 sq.m. Chronic Kidney Disease: Less than 60 mL/min/1.73 square meters End Stage Renal Disease: Less than 15 mL/min/1.73 square meters Performed By: #### C BC, ADIFF, ANEU, FERR, FOL, MG, TSH, PHOS, B12, FES, PRALB, GFR, CMP #### [address] [address] GFR >60 Normal [facility] ([place]) Comment on above: Result Comment: GFR Population mean for , Non- Americans Ages 20-29 = 116 mL/min/1.73 sq.m. Ages 30-39 = 107 mL/min/1.73 sq.m. Ages 40-49 = 99 mL/min/1.73 sq.m. Ages 50-59 = 93 mL/min/1.73 sq.m. Ages 60-69 = 85 mL/min/1.73 sq.m. Ages 70+ = 75 mL/min/1.73 sq.m. Chronic Kidney Disease: Less than 60 mL/min/1.73 square meters End Stage Renal Disease: Less than 15 mL/min/1.73 square meters Performed By: #### C BC, ADIFF, ANEU, FERR, FOL, MG, TSH, PHOS, B12, FES, PRALB, GFR, CMP #### [address] [address] .NEUABSon 02-17-2021 Neutrophil, Absolute 2.30 10 3/mcL Normal 2.25-8.10 A [facility] ([place]) Comment on above: Performed By: #### C BC, ADIFF, ANEU, FERR, FOL, MG, TSH, PHOS, B12, FES, PRALB, GFR, CMP #### [address] [address] [facility] BUN/Creatinine Ratio 29.3 ratio High 10.0-22.0 [facility] ([place]) Comment on above: Performed By: #### C BC, ADIFF, ANEU, FERR, FOL, MG, TSH, PHOS, B12, FES, PRALB, GFR, CMP #### [address] [address] Calcium [Mass/Vol] 8.7 mg/dL Normal 8.7-10.4 [facility] ([place]) Comment on above: Result Comment: No te - New Reference Range in effect 20 Performed By: #### C BC, ADIFF, ANEU, FERR, FOL, MG, TSH, PHOS, B12, FES, PRALB, GFR, CMP #### [address] [address] Chloride [Moles/Vol] 104 mmol/L Normal 98-110 [facility] ([place]) Comment on above: Performed By: #### C BC, ADIFF, ANEU, FERR, FOL, MG, TSH, PHOS, B12, FES, PRALB, GFR, CMP #### [address] [address] CO2 [Moles/Vol] 31 mmol/L Normal 22-32 [facility] ([place]) Comment on above: Performed By: #### C BC, ADIFF, ANEU, FERR, FOL, MG, TSH, PHOS, B12, FES, PRALB, GFR, CMP #### [address] [address] Creatinine [Mass/Vol] 0.58 mg/dL Normal 0.50-1.20 [facility] ([place]) Comment on above: Performed By: #### C BC, ADIFF, ANEU, FERR, FOL, MG, TSH, PHOS, B12, FES, PRALB, GFR, CMP #### [address] [address] Electrolyte Balance 4.0 mEq/L Normal 4.0-15.0 [facility] ([place]) Comment on above: Performed By: #### C BC, ADIFF, ANEU, FERR, FOL, MG, TSH, PHOS, B12, FES, PRALB, GFR, CMP #### [address] [address] Glucose [Mass/Vol] 104 mg/dL Normal 70-110 [facility] ([place] Comment on above: Performed By: #### C BC, ADIFF, ANEU, FERR, FOL, MG, TSH, PHOS, B12, FES, PRALB, GFR, CMP #### [address] [address] Potassium [Moles/Vol] 3.9 mmol/L Normal 3.5-5.0 [facility] ([place]) Comment on above: Performed By: #### C BC, ADIFF, ANEU, FERR, FOL, MG, TSH, PHOS, B12, FES, PRALB, GFR, CMP #### [address] [address] Sodium [Moles/Vol] 139 mmol/L Normal 136-145 [facility] ([place]) Comment on above: Performed By: #### C BC, ADIFF, ANEU, FERR, FOL, MG, TSH, PHOS, B12, FES, PRALB, GFR, CMP #### [address] [address] Urea nitrogen [Mass/Vol] 17.0 mg/dL Normal 8.0-22.0 [facility] ([place]) Comment on above: Performed By: #### C BC, ADIFF, ANEU, FERR, FOL, MG, TSH, PHOS, B12, FES, PRALB, GFR, CMP #### [address] [address] CBCon 02-17-2021 Erythrocyte distribution width (RBC) [Ratio] 16.9 % High 11.5-15.5 [facility] ([place]) Comment on above: Performed By: #### C BC, ADIFF, ANEU, FERR, FOL, MG, TSH, PHOS, B12, FES, PRALB, GFR, CMP #### [place] [id number] Hematocrit (Bld) [Volume fraction] 24.6 % Low 34.0-46.0 [facility] ([place]) Comment on above: Performed By: #### C BC, ADIFF, ANEU, FERR, FOL, MG, TSH, PHOS, B12, FES, PRALB, GFR, CMP #### [place] [id number] Hgb 8.3 G/dL Low 12.0-16.0 [facility] ([place]) Comment on above: Performed By: #### C BC, ADIFF, ANEU, FERR, FOL, MG, TSH, PHOS, B12, FES, PRALB, GFR, CMP #### [address] [address] MCH (RBC) [Entitic mass] 30.7 pg Normal 27.0-33.0 [facility] ([place]) Comment on above: Performed By: #### C BC, ADIFF, ANEU, FERR, FOL, MG, TSH, PHOS, B12, FES, PRALB, GFR, CMP #### [place] [id number] MCHC 33.7 G/dL Normal 32.0-36.0 [facility] ([place]) Comment on above: Performed By: #### C BC, ADIFF, ANEU, FERR, FOL, MG, TSH, PHOS, B12, FES, PRALB, GFR, CMP #### [place] [id number] MCV (RBC) [Entitic vol] 91.1 fL Normal 80.0-99.0 [facility] ([place]) Comment on above: Performed By: #### C BC, ADIFF, ANEU, FERR, FOL, MG, TSH, PHOS, B12, FES, PRALB, GFR, CMP #### [place] [address] Platelet 180 10 3/mcL Normal 150-450 [facility] ([place]) Comment on above: Performed By: #### C BC, ADIFF, ANEU, FERR, FOL, MG, TSH, PHOS, B12, FES, PRALB, GFR, CMP #### [place] [id number] Platelet mean volume (Bld) [Entitic vol] 7.7 fL Normal 6.6-10.5 [facility] ([place]) Comment on above: Performed By: #### C BC, ADIFF, ANEU, FERR, FOL, MG, TSH, PHOS, B12, FES, PRALB, GFR, CMP #### [place] [address] RBC 2.70 10 6/mcL Low 4.10-5.30 [facility] ([place]) Comment on above: Performed By: #### C BC, ADIFF, ANEU, FERR, FOL, MG, TSH, PHOS, B12, FES, PRALB, GFR, CMP #### [place] [address] WBC 4.00 10 3/mcL Low 4.50-10.80 [facility] ([place]) Comment on above: Performed By: #### C BC, ADIFF, ANEU, FERR, FOL, MG, TSH, PHOS, B12, FES, PRALB, GFR, CMP #### [address] 05-27-2021 LDose Vancomycin:(trough) See eMAR Normal [facility] ([place]) Comment on above: Performed By: #### C BC, ADIFF, ANEU, FERR, FOL, MG, TSH, PHOS, B12, FES, PRALB, GFR, CMP #### [place] [address] Vancomycin Tr 20.1 mcg/mL Critically abnormal 5.0-20.0 [facility] ([place]) Comment on above: Performed By: #### C BC, ADIFF, ANEU, FERR, FOL, MG, TSH, PHOS, B12, FES, PRALB, GFR, CMP #### [place] [address] PRALBon 02-13-2021 Prealbumin [Mass/Vol] 13.2 mg/dL Normal 10.0-40.0 [facility] ([place]) Comment on above: Result Comment: No te - New Reference Range in effect 20 Performed By: #### C BC, ADIFF, ANEU, FERR, FOL, MG, TSH, PHOS, B12, FES, PRALB, GFR, CMP #### [place] [address] .Auto Diffon 02-11-2021 Basophil, Absolute 0.10 10 3/mcL Normal 0.00-0.27 [facility] ([place]) Comment on above: Performed By: #### C BC, ADIFF, ANEU, FERR, FOL, MG, TSH, PHOS, B12, FES, PRALB, GFR, CMP #### [place] [address] Basophils/100 WBC (Bld) 1.5 % Normal 0.0-2.5 [facility] ([place]) Comment on above: Performed By: #### C BC, ADIFF, ANEU, FERR, FOL, MG, TSH, PHOS, B12, FES, PRALB, GFR, CMP #### [place] [address] Eosinophil, Absolute 0.20 10 3/mcL Normal 0.00-0.65 [facility] ([place]) Comment on above: Performed By: #### C BC, ADIFF, ANEU, FERR, FOL, MG, TSH, PHOS, B12, FES, PRALB, GFR, CMP #### [address] [address] Eosinophils/100 WBC (Bld) 4.8 % Normal 0.0-6.0 [facility] ([place]) Comment on above: Performed By: #### C BC, ADIFF, ANEU, FERR, FOL, MG, TSH, PHOS, B12, FES, PRALB, GFR, CMP #### [address] [address] Lymphocyte, Absolute 1.20 10 3/mcL Normal 0.90-4.32 [facility] ([place]) Comment on above: Performed By: #### C BC, ADIFF, ANEU, FERR, FOL, MG, TSH, PHOS, B12, FES, PRALB, GFR, CMP #### [address] [address] Lymphocytes/100 WBC (Bld) 33.3 % Normal 20.0-40.0 [facility] ([place]) Comment on above: Performed By: #### C BC, ADIFF, ANEU, FERR, FOL, MG, TSH, PHOS, B12, FES, PRALB, GFR, CMP #### [address] [address] Monocyte, Absolute 0.20 10 3/mcL Normal 0.09-1.40 [facility] ([place]) Comment on above: Performed By: #### C BC, ADIFF, ANEU, FERR, FOL, MG, TSH, PHOS, B12, FES, PRALB, GFR, CMP #### [address] [address] Monocytes/100 WBC (Bld) 6.4 % Normal 2.0-13.0 [facility] ([place]) Comment on above: Performed By: #### C BC, ADIFF, ANEU, FERR, FOL, MG, TSH, PHOS, B12, FES, PRALB, GFR, CMP #### [address] [address] Neutrophils/100 WBC (Bld) 54.0 % Normal 50.0-75.0 [facility] ([place] Comment on above: Performed By: #### C BC, ADIFF, ANEU, FERR, FOL, MG, TSH, PHOS, B12, FES, PRALB, GFR, CMP #### [address] [address] .GFRon 02-11-2021 GFR >60 Normal [facility] ([place]) Comment on above: Result Comment: GFR Population mean for , Non- Americans Ages 20-29 = 116 mL/min/1.73 sq.m. Ages 30-39 = 107 mL/min/1.73 sq.m. Ages 40-49 = 99 mL/min/1.73 sq.m. Ages 50-59 = 93 mL/min/1.73 sq.m. Ages 60-69 = 85 mL/min/1.73 sq.m. Ages 70+ = 75 mL/min/1.73 sq.m. Chronic Kidney Disease: Less than 60 mL/min/1.73 square meters End Stage Renal Disease: Less than 15 mL/min/1.73 square meters Performed By: #### C BC, ADIFF, ANEU, FERR, FOL, MG, TSH, PHOS, B12, FES, PRALB, GFR, CMP #### [address] [address] GFR Non- >60 Normal [facility] ([place]) Comment on above: Result Comment: GFR Population mean for , Non- Americans Ages 20-29 = 116 mL/min/1.73 sq.m. Ages 30-39 = 107 mL/min/1.73 sq.m. Ages 40-49 = 99 mL/min/1.73 sq.m. Ages 50-59 = 93 mL/min/1.73 sq.m. Ages 60-69 = 85 mL/min/1.73 sq.m. Ages 70+ = 75 mL/min/1.73 sq.m. Chronic Kidney Disease: Less than 60 mL/min/1.73 square meters End Stage Renal Disease: Less than 15 mL/min/1.73 square meters Performed By: #### C BC, ADIFF, ANEU, FERR, FOL, MG, TSH, PHOS, B12, FES, PRALB, GFR, CMP #### [address] [address] .NEUABSon 02-11-2021 Neutrophil, Absolute 2.00 10 3/mcL Low 2.25-8.10 [facility] ([place]) Comment on above: Performed By: #### C BC, ADIFF, ANEU, FERR, FOL, MG, TSH, PHOS, B12, FES, PRALB, GFR, CMP #### [address] [address] BMPon 02-11-2021 BUN/Creatinine Ratio 26.2 ratio High 10.0-22.0 [facility] ([place]) Comment on above: Performed By: #### C BC, ADIFF, ANEU, FERR, FOL, MG, TSH, PHOS, B12, FES, PRALB, GFR, CMP #### [address] [address] Calcium [Mass/Vol] 8.4 mg/dL Low 8.7-10.4 [facility] ([place]) Comment on above: Result Comment: No te - New Reference Range in effect 20 Performed By: #### C BC, ADIFF, ANEU, FERR, FOL, MG, TSH, PHOS, B12, FES, PRALB, GFR, CMP #### [address] [address] Chloride [Moles/Vol] 105 mmol/L Normal 98-110 [facility] ([place]) Comment on above: Performed By: #### C BC, ADIFF, ANEU, FERR, FOL, MG, TSH, PHOS, B12, FES, PRALB, GFR, CMP #### [address] [address] CO2 [Moles/Vol] 31 mmol/L Normal 22-32 [facility] ([place]) Comment on above: Performed By: #### C BC, ADIFF, ANEU, FERR, FOL, MG, TSH, PHOS, B12, FES, PRALB, GFR, CMP #### [address] [address] Creatinine [Mass/Vol] 0.61 mg/dL Normal 0.50-1.20 [facility] ([place]) Comment on above: Performed By: #### C BC, ADIFF, ANEU, FERR, FOL, MG, TSH, PHOS, B12, FES, PRALB, GFR, CMP #### [address] [address] Electrolyte Balance 3.0 mEq/L Low 4.0-15.0 [facility] ([place]) Comment on above: Performed By: #### C BC, ADIFF, ANEU, FERR, FOL, MG, TSH, PHOS, B12, FES, PRALB, GFR, CMP #### [address] [address] Glucose [Mass/Vol] 113 mg/dL High 70-110 [facility] ([place]) Comment on above: Performed By: #### C BC, ADIFF, ANEU, FERR, FOL, MG, TSH, PHOS, B12, FES, PRALB, GFR, CMP #### [address] [address] Potassium [Moles/Vol] 4.0 mmol/L Normal 3.5-5.0 [facility] ([place]) Comment on above: Performed By: #### C BC, ADIFF, ANEU, FERR, FOL, MG, TSH, PHOS, B12, FES, PRALB, GFR, CMP #### [address] [address] Sodium [Moles/Vol] 139 mmol/L Normal 136-145 [facility] ([place]) Comment on above: Performed By: #### C BC, ADIFF, ANEU, FERR, FOL, MG, TSH, PHOS, B12, FES, PRALB, GFR, CMP #### [address] [address] Urea nitrogen [Mass/Vol] 16.0 mg/dL Normal 8.0-22.0 [facility] ([place]) Comment on above: Performed By: #### C BC, ADIFF, ANEU, FERR, FOL, MG, TSH, PHOS, B12, FES, PRALB, GFR, CMP #### [address] [address] CBCon 02-11-2021 Erythrocyte distribution width (RBC) [Ratio] 16.4 % High 11.5-15.5 [facility] ([place]) Comment on above: Performed By: #### C BC, ADIFF, ANEU, FERR, FOL, MG, TSH, PHOS, B12, FES, PRALB, GFR, CMP #### [place] [address] Hematocrit (Bld) [Volume fraction] 23.7 % Low 34.0-46.0 [facility] ([place]) Comment on above: Performed By: #### C BC, ADIFF, ANEU, FERR, FOL, MG, TSH, PHOS, B12, FES, PRALB, GFR, CMP #### [place] [address] Hgb 8.0 G/dL Low 12.0-16.0 [facility] ([place]) Comment on above: Performed By: #### C BC, ADIFF, ANEU, FERR, FOL, MG, TSH, PHOS, B12, FES, PRALB, GFR, CMP #### [place] [address] MCH (RBC) [Entitic mass] 30.9 pg Normal 27.0-33.0 [facility] ([place]) Comment on above: Performed By: #### C BC, ADIFF, ANEU, FERR, FOL, MG, TSH, PHOS, B12, FES, PRALB, GFR, CMP #### [place] [id number] MCHC 33.9 G/dL Normal 32.0-36.0 [facility] ([place]) Comment on above: Performed By: #### C BC, ADIFF, ANEU, FERR, FOL, MG, TSH, PHOS, B12, FES, PRALB, GFR, CMP #### [place] [id number] MCV (RBC) [Entitic vol] 91.2 fL Normal 80.0-99.0 [facility] ([place]) Comment on above: Performed By: #### C BC, ADIFF, ANEU, FERR, FOL, MG, TSH, PHOS, B12, FES, PRALB, GFR, CMP #### [place] [id number] [place] 180 10 3/mcL Normal 150-450 [facility] ([place]) Comment on above: Performed By: #### C BC, ADIFF, ANEU, FERR, FOL, MG, TSH, PHOS, B12, FES, PRALB, GFR, CMP #### [place] [address] Platelet mean volume (Bld) [Entitic vol] 7.5 fL Normal 6.6-10.5 [facility] ([place]) Comment on above: Performed By: #### C BC, ADIFF, ANEU, FERR, FOL, MG, TSH, PHOS, B12, FES, PRALB, GFR, CMP #### [place] [address] RBC 2.60 10 6/mcL Low 4.10-5.30 [facility] ([place]) Comment on above: Performed By: #### C BC, ADIFF, ANEU, FERR, FOL, MG, TSH, PHOS, B12, FES, PRALB, GFR, CMP #### [place] [address] WBC 3.70 10 3/mcL Low 4.50-10.80 [facility] ([place]) Comment on above: Performed By: #### C BC, ADIFF, ANEU, FERR, FOL, MG, TSH, PHOS, B12, FES, PRALB, GFR, CMP #### [place] [address] MGon 02-11-2021 Magnesium [Mass/Vol] 1.6 mg/dL Normal 1.6-2.4 [facility] ([place]) Comment on above: Performed By: #### C BC, ADIFF, ANEU, FERR, FOL, MG, TSH, PHOS, B12, FES, PRALB, GFR, CMP #### [place] [id number] VANCTon 02-11-2021 LDose Vancomycin:(trough) See eMAR Normal [facility] ([place]) Comment on above: Performed By: #### C BC, ADIFF, ANEU, FERR, FOL, MG, TSH, PHOS, B12, FES, PRALB, GFR, CMP #### [address] [address] Vancomycin Tr 19.2 mcg/mL Normal 5.0-20.0 [facility] ([place]) Comment on above: Performed By: #### C BC, ADIFF, ANEU, FERR, FOL, MG, TSH, PHOS, B12, FES, PRALB, GFR, CMP #### [address] [address] .GFRon 02-10-2021 GFR >60 Normal [facility] ([place]) Comment on above: Result Comment: GFR Population mean for , Non- Americans Ages 20-29 = 116 mL/min/1.73 sq.m. Ages 30-39 = 107 mL/min/1.73 sq.m. Ages 40-49 = 99 mL/min/1.73 sq.m. Ages 50-59 = 93 mL/min/1.73 sq.m. Ages 60-69 = 85 mL/min/1.73 sq.m. Ages 70+ = 75 mL/min/1.73 sq.m. Chronic Kidney Disease: Less than 60 mL/min/1.73 square meters End Stage Renal Disease: Less than 15 mL/min/1.73 square meters Performed By: #### C BC, ADIFF, ANEU, FERR, FOL, MG, TSH, PHOS, B12, FES, PRALB, GFR, CMP #### [address] [address] GFR Non- >60 Normal [facility] ([place]) Comment on above: Result Comment: GFR Population mean for , Non- Americans Ages 20-29 = 116 mL/min/1.73 sq.m. Ages 30-39 = 107 mL/min/1.73 sq.m. Ages 40-49 = 99 mL/min/1.73 sq.m. Ages 50-59 = 93 mL/min/1.73 sq.m. Ages 60-69 = 85 mL/min/1.73 sq.m. Ages 70+ = 75 mL/min/1.73 sq.m. Chronic Kidney Disease: Less than 60 mL/min/1.73 square meters End Stage Renal Disease: Less than 15 mL/min/1.73 square meters Performed By: #### C BC, ADIFF, ANEU, FERR, FOL, MG, TSH, PHOS, B12, FES, PRALB, GFR, CMP #### [place] [id number] B12on 02-10-2021 Cobalamin (Vitamin B12) [Mass/Vol] 840 pg/mL Normal 211-911 [facility] ([place]) Comment on above: Performed By: #### C BC, ADIFF, ANEU, FERR, FOL, MG, TSH, PHOS, B12, FES, PRALB, GFR, CMP #### [address] [address] CMPon 02-10-2021 Albumin Level 1.8 G/dL Low 3.2-4.8 [facility] ([place]) Comment on above: Performed By: #### C BC, ADIFF, ANEU, FERR, FOL, MG, TSH, PHOS, B12, FES, PRALB, GFR, CMP #### [place] [address] Albumin/Globulin [Mass ratio] 0.5 {ratio} Low 0.9-1.6 [facility] ([place]) Comment on above: Performed By: #### C BC, ADIFF, ANEU, FERR, FOL, MG, TSH, PHOS, B12, FES, PRALB, GFR, CMP #### [address] [address] ALP [Catalytic activity/Vol] 130 U/L High 38-126 [facility] ([place] Comment on above: Performed By: #### C BC, ADIFF, ANEU, FERR, FOL, MG, TSH, PHOS, B12, FES, PRALB, GFR, CMP #### [address] [address] ALT [Catalytic activity/Vol] 15 U/L Normal 10-49 [facility] ([place] Comment on above: Performed By: #### C BC, ADIFF, ANEU, FERR, FOL, MG, TSH, PHOS, B12, FES, PRALB, GFR, CMP #### [place] [id number] AST [Catalytic activity/Vol] 17 U/L Normal 8-34 [facility] ([place] Comment on above: Performed By: #### C BC, ADIFF, ANEU, FERR, FOL, MG, TSH, PHOS, B12, FES, PRALB, GFR, CMP #### [place] [id number] Bili Total 0.30 mg/dL Normal 0.20-1.20 [facility] ([place]) Comment on above: Result Comment: Use of this assay is not recommended for patients undergoing treatment with eltrombopag due to the potential for falsely elevated results. Performed By: #### C BC, ADIFF, ANEU, FERR, FOL, MG, TSH, PHOS, B12, FES, PRALB, GFR, CMP #### [place] [id number] BUN/Creatinine Ratio 32.7 ratio High 10.0-22.0 [facility] ([place]) Comment on above: Performed By: #### C BC, ADIFF, ANEU, FERR, FOL, MG, TSH, PHOS, B12, FES, PRALB, GFR, CMP #### [place] [id number] Calcium [Mass/Vol] 8.5 mg/dL Low 8.7-10.4 [facility] ([place]) Comment on above: Result Comment: No te - New Reference Range in effect 20 Performed By: #### C BC, ADIFF, ANEU, FERR, FOL, MG, TSH, PHOS, B12, FES, PRALB, GFR, CMP #### [place] [id number] Chloride [Moles/Vol] 106 mmol/L Normal 98-110 [facility] ([place]) Comment on above: Performed By: #### C BC, ADIFF, ANEU, FERR, FOL, MG, TSH, PHOS, B12, FES, PRALB, GFR, CMP #### [address] [address] CO2 [Moles/Vol] 29 mmol/L Normal 22-32 [facility] ([place] Comment on above: Performed By: #### C BC, ADIFF, ANEU, FERR, FOL, MG, TSH, PHOS, B12, FES, PRALB, GFR, CMP #### [address] [address] Creatinine [Mass/Vol] 0.52 mg/dL Normal 0.50-1.20 [facility] ([place]) Comment on above: Performed By: #### C BC, ADIFF, ANEU, FERR, FOL, MG, TSH, PHOS, B12, FES, PRALB, GFR, CMP #### [address] [address] Electrolyte Balance 3.0 mEq/L Low 4.0-15.0 [facility] ([place]) Comment on above: Performed By: #### C BC, ADIFF, ANEU, FERR, FOL, MG, TSH, PHOS, B12, FES, PRALB, GFR, CMP #### [address] [address] Globulin 3.4 G/dL Normal 1.5-3.8 [facility] ([place] Comment on above: Performed By: #### C BC, ADIFF, ANEU, FERR, FOL, MG, TSH, PHOS, B12, FES, PRALB, GFR, CMP #### [address] [address] Glucose [Mass/Vol] 72 mg/dL Normal 70-110 [facility] ([place]) Comment on above: Performed By: #### C BC, ADIFF, ANEU, FERR, FOL, MG, TSH, PHOS, B12, FES, PRALB, GFR, CMP #### [address] [address] Potassium [Moles/Vol] 4.0 mmol/L Normal 3.5-5.0 [facility] ([place]) Comment on above: Performed By: #### C BC, ADIFF, ANEU, FERR, FOL, MG, TSH, PHOS, B12, FES, PRALB, GFR, CMP #### [place] [address] Sodium [Moles/Vol] 138 mmol/L Normal 136-145 [facility] ([place]) Comment on above: Performed By: #### C BC, ADIFF, ANEU, FERR, FOL, MG, TSH, PHOS, B12, FES, PRALB, GFR, CMP #### [place] [address] Total Protein 5.2 G/dL Low 5.7-8.2 [facility] ([place] Comment on above: Result Comment: No te - New Reference Range in effect 20 Performed By: #### C BC, ADIFF, ANEU, FERR, FOL, MG, TSH, PHOS, B12, FES, PRALB, GFR, CMP #### [place] [address] Urea nitrogen [Mass/Vol] 17.0 mg/dL Normal 8.0-22.0 [facility] ([place] Comment on above: Performed By: #### C BC, ADIFF, ANEU, FERR, FOL, MG, TSH, PHOS, B12, FES, PRALB, GFR, CMP #### [place] [address] Darshana 02-10-2021 Ferritin [Mass/Vol] 126.6 ng/mL Normal 8.0-252.0 [facility] ([place]) Comment on above: Performed By: #### C BC, ADIFF, ANEU, FERR, FOL, MG, TSH, PHOS, B12, FES, PRALB, GFR, CMP #### [place] [id number] FESon 02-10-2021 Iron [Mass/Vol] 38 ug/dL Low 50-170 [facility] ([place] Comment on above: Performed By: #### C BC, ADIFF, ANEU, FERR, FOL, MG, TSH, PHOS, B12, FES, PRALB, GFR, CMP #### [place] [address] Iron Sat 18 % Normal [facility] ([place] Comment on above: Performed By: #### C BC, ADIFF, ANEU, FERR, FOL, MG, TSH, PHOS, B12, FES, PRALB, GFR, CMP #### [place] [address] TIBC 217 mcg/dL Low 250-500 [facility] ([place] Comment on above: Performed By: #### C BC, ADIFF, ANEU, FERR, FOL, MG, TSH, PHOS, B12, FES, PRALB, GFR, CMP #### [place] [address] FOLon 02-10-2021 Folate 10.11 ng/mL Normal 5.38-24.00 [facility] ([place] Comment on above: Performed By: #### C BC, ADIFF, ANEU, FERR, FOL, MG, TSH, PHOS, B12, FES, PRALB, GFR, CMP #### [place] [address] MGon 02-10-2021 Magnesium [Mass/Vol] 1.6 mg/dL Normal 1.6-2.4 [facility] ([place]) Comment on above: Performed By: #### C BC, ADIFF, ANEU, FERR, FOL, MG, TSH, PHOS, B12, FES, PRALB, GFR, CMP #### [place] [address] PHOSon 02-10-2021 Phosphate [Mass/Vol] 4.2 mg/dL Normal 2.4-5.1 [facility] ([place]) Comment on above: Result Comment: No te - New Reference Range in effect 20 Performed By: #### C BC, ADIFF, ANEU, FERR, FOL, MG, TSH, PHOS, B12, FES, PRALB, GFR, CMP #### [place] [address] PRALBon 02-10-2021 Prealbumin [Mass/Vol] 12.3 mg/dL Normal 10.0-40.0 [facility] ([place] Comment on above: Result Comment: No te - New Reference Range in effect 20 Performed By: #### C BC, ADIFF, ANEU, FERR, FOL, MG, TSH, PHOS, B12, FES, PRALB, GFR, CMP #### [place] [address] TSHon 02-10-2021 TSH 2.084 mIU/mL Normal 0.550-4.780 [facility] ([place] Comment on above: Result Comment: No te - New Reference Range in effect 20 Performed By: #### C BC, ADIFF, ANEU, FERR, FOL, MG, TSH, PHOS, B12, FES, PRALB, GFR, CMP #### [place] [address] VANCRon 02-10-2021 LDose Vancomycin: (random) See eMAR Normal [facility] ([place] Comment on above: Performed By: #### C BC, ADIFF, ANEU, FERR, FOL, MG, TSH, PHOS, B12, FES, PRALB, GFR, CMP #### [place] [address] .Auto Diffon 02-09-2021 Basophil, Absolute 0.10 10 3/mcL Normal 0.00-0.27 [facility] ([place] Comment on above: Performed By: #### C BC, ADIFF, ANEU, FERR, FOL, MG, TSH, PHOS, B12, FES, PRALB, GFR, CMP #### [place] [address] Basophils/100 WBC (Bld) 1.8 % Normal 0.0-2.5 [facility] ([place] Comment on above: Performed By: #### C BC, ADIFF, ANEU, FERR, FOL, MG, TSH, PHOS, B12, FES, PRALB, GFR, CMP #### [place] [address] Eosinophil, Absolute 0.20 10 3/mcL Normal 0.00-0.65 [facility] ([place]) Comment on above: Performed By: #### C BC, ADIFF, ANEU, FERR, FOL, MG, TSH, PHOS, B12, FES, PRALB, GFR, CMP #### [address] [address] Eosinophils/100 WBC (Bld) 4.3 % Normal 0.0-6.0 [facility] ([place]) Comment on above: Performed By: #### C BC, ADIFF, ANEU, FERR, FOL, MG, TSH, PHOS, B12, FES, PRALB, GFR, CMP #### [address] [address] Lymphocyte, Absolute 1.10 10 3/mcL Normal 0.90-4.32 [facility] ([place]) Comment on above: Performed By: #### C BC, ADIFF, ANEU, FERR, FOL, MG, TSH, PHOS, B12, FES, PRALB, GFR, CMP #### [address] [address] Lymphocytes/100 WBC (Bld) 30.2 % Normal 20.0-40.0 [facility] ([place]) Comment on above: Performed By: #### C BC, ADIFF, ANEU, FERR, FOL, MG, TSH, PHOS, B12, FES, PRALB, GFR, CMP #### [address] [address] Monocyte, Absolute 0.20 10 3/mcL Normal 0.09-1.40 [facility] ([place] Comment on above: Performed By: #### C BC, ADIFF, ANEU, FERR, FOL, MG, TSH, PHOS, B12, FES, PRALB, GFR, CMP #### [address] [address] Monocytes/100 WBC (Bld) 5.9 % Normal 2.0-13.0 [facility] ([place]) Comment on above: Performed By: #### C BC, ADIFF, ANEU, FERR, FOL, MG, TSH, PHOS, B12, FES, PRALB, GFR, CMP #### [address] [address] Neutrophils/100 WBC (Bld) 57.8 % Normal 50.0-75.0 [facility] ([place] Comment on above: Performed By: #### C BC, ADIFF, ANEU, FERR, FOL, MG, TSH, PHOS, B12, FES, PRALB, GFR, CMP #### [address] [address] .NEUABSon 02-09-2021 Neutrophil, Absolute 2.00 10 3/mcL Low 2.25-8.10 [facility] ([place] Comment on above: Performed By: #### C BC, ADIFF, ANEU, FERR, FOL, MG, TSH, PHOS, B12, FES, PRALB, GFR, CMP #### [address] [address] CBCon 02-09-2021 Erythrocyte distribution width (RBC) [Ratio] 16.1 % High 11.5-15.5 [facility] ([place] Comment on above: Performed By: #### C BC, ADIFF, ANEU, FERR, FOL, MG, TSH, PHOS, B12, FES, PRALB, GFR, CMP #### [place] [address] Hematocrit (Bld) [Volume fraction] 24.5 % Low 34.0-46.0 [facility] ([place] Comment on above: Performed By: #### C BC, ADIFF, ANEU, FERR, FOL, MG, TSH, PHOS, B12, FES, PRALB, GFR, CMP #### [place] [id number] Hgb 8.1 G/dL Low 12.0-16.0 [facility] ([place] Comment on above: Performed By: #### C BC, ADIFF, ANEU, FERR, FOL, MG, TSH, PHOS, B12, FES, PRALB, GFR, CMP #### [address] [address] MCH (RBC) [Entitic mass] 30.4 pg Normal 27.0-33.0 [facility] ([place] Comment on above: Performed By: #### C BC, ADIFF, ANEU, FERR, FOL, MG, TSH, PHOS, B12, FES, PRALB, GFR, CMP #### [address] [address] MCHC 33.2 G/dL Normal 32.0-36.0 [facility] ([place] Comment on above: Performed By: #### C BC, ADIFF, ANEU, FERR, FOL, MG, TSH, PHOS, B12, FES, PRALB, GFR, CMP #### [place] [id number] MCV (RBC) [Entitic vol] 91.3 fL Normal 80.0-99.0 [facility] ([place] Comment on above: Performed By: #### C BC, ADIFF, ANEU, FERR, FOL, MG, TSH, PHOS, B12, FES, PRALB, GFR, CMP #### [place] [address] Platelet 180 10 3/mcL Normal 150-450 [facility] ([place] Comment on above: Performed By: #### C BC, ADIFF, ANEU, FERR, FOL, MG, TSH, PHOS, B12, FES, PRALB, GFR, CMP #### [place] [id number] Platelet mean volume (Bld) [Entitic vol] 7.8 fL Normal 6.6-10.5 [facility] ([place] Comment on above: Performed By: #### C BC, ADIFF, ANEU, FERR, FOL, MG, TSH, PHOS, B12, FES, PRALB, GFR, CMP #### [place] [id number] RBC 2.68 10 6/mcL Low 4.10-5.30 [facility] ([place] Comment on above: Performed By: #### C BC, ADIFF, ANEU, FERR, FOL, MG, TSH, PHOS, B12, FES, PRALB, GFR, CMP #### [place] [id number] WBC 3.50 10 3/mcL Low 4.50-10.80 [facility] ([place] Comment on above: Performed By: #### C BC, ADIFF, ANEU, FERR, FOL, MG, TSH, PHOS, B12, FES, PRALB, GFR, CMP #### [facility] [address] [place] [address] CBC,PLATELETSon 02-09-2021 Hematocrit (Bld) [Volume fraction] 25.9 % Low 34.9-44.3 [facility] Comment on above: Performed By: #### T YPEC #### [facility] (DEFAULT) [address] [address] Hemoglobin (Bld) [Mass/Vol] 8.5 g/dL Low 11.4-15.2 [facility] Comment on above: Performed By: #### T YPEC #### [facility] (DEFAULT) [address] [address] MCV (RBC) [Entitic vol] 93.2 fL Normal 79.6-97.7 [facility] Comment on above: Performed By: #### T YPEC #### [facility] (DEFAULT) [address] [address] Mean Cell Hgb 30.6 pg Normal 25.9-33.9 [facility] Comment on above: Performed By: #### T YPEC #### [facility] (DEFAULT) [address] [address] Mean Cell Hgb Conc 32.8 g/dL Normal 31.4-35.9 [facility] Comment on above: Performed By: #### T YPEC #### [facility] (DEFAULT) [address] [address] Platelet mean volume (Bld) [Entitic vol] 10.0 fL Normal 8.5-12.2 [facility] Comment on above: Performed By: #### T YPEC #### [facility] (DEFAULT) [address] [address] Platelets (Bld) [#/Vol] 222 10*3/uL Normal 150-393 [facility] Comment on above: Performed By: #### T YPEC #### [facility] (DEFAULT) [address] [place] [address] RBC (Bld) [#/Vol] 2.78 10*6/uL Low 3.91-5.04 [facility] Comment on above: Performed By: #### T YPEC #### [facility] (DEFAULT) [address] [place] [address] RBC Distribution 14.8 % Normal 10.8-14.9 [facility] Comment on above: Performed By: #### T YPEC #### [facility] (DEFAULT) [address] [place] [address] WBC (Bld) [#/Vol] 6.45 10*3/uL Normal 3.99-11.19 [facility] Comment on above: Performed By: #### T YPEC #### [facility] (DEFAULT) [address] [place] [address] CHEM 7 (LYTES,BUN,CREA,GLUC) on 02-09-2021 Anion gap [Moles/Vol] 9 mmol/L Normal 7-17 [facility] Comment on above: Performed By: #### C HM7, MGO, IPB #### [facility] (DEFAULT) [address] [place] [address] Chloride [Moles/Vol] 105 mmol/L Normal 98-108 [facility] Comment on above: Performed By: #### C HM7, MGO, IPB #### [facility] (DEFAULT) [address] [place] [address] CO2 [Moles/Vol] 27 mmol/L Normal 22-30 [facility] Comment on above: Performed By: #### Alice HM7, MGO, IPB #### [facility] (DEFAULT) [address] [place] [address] Creatinine [Mass/Vol] 0.52 mg/dL Normal 0.50-1.20 [facility] Comment on above: Performed By: #### C HM7, MGO, IPB #### [facility] (DEFAULT) [address] [place] [address] EST GFR, >=60 Normal >=60 [facility] Comment on above: Performed By: #### Alice HM7, MGO, IPB #### [facility] (DEFAULT) [address] [place] [address] EST GFR,Non >=60 Normal >=60 [facility] Comment on above: Performed By: #### Alice HM7, MGO, IPB #### [facility] (DEFAULT) [address] [place] [address] Glucose [Mass/Vol] 80 mg/dL Normal 70-99 [facility] Comment on above: Performed By: #### Alice HM7 MGO, IPB #### [facility] (DEFAULT) [address] [place] [address] Osmolality [Osmolality] 288 mosm/kg Normal 278-305 [facility] Comment on above: Performed By: #### Alice HMSwapnil MGO, IPB #### [facility] (DEFAULT) [address] [place] [address] Potassium [Moles/Vol] 3.9 mmol/L Normal 3.5-5.0 [facility] Comment on above: Performed By: #### Alice HM7, MGO, IPB #### [facility] (DEFAULT) [address] [place] [address] Sodium [Moles/Vol] 137 mmol/L Normal 133-143 [facility] Comment on above: Performed By: #### Alice HM7, MGO, IPB #### [facility] (DEFAULT) [address] [place] [address] Urea nitrogen [Mass/Vol] 18 mg/dL Normal 7-22 [facility] Comment on above: Performed By: #### Alice HM7, MGO, IPB #### [facility] (DEFAULT) [address] [place] [address] Urea nitrogen/Creatinine [Mass ratio] 35 mg/mg Normal [facility] Comment on above: Performed By: #### C HM7, MGO, IPB #### [facility] (DEFAULT) [address] [place] [address] CKon 02-09-2021 CK [Catalytic activity/Vol] 32 U/L Normal 30-184 [facility] Comment on above: Order Comment: While on Propofol. Performed By: #### C HM7, MGO, IPB #### [facility] (DEFAULT) [address] [place] [address] IONIZED CALCIUM, INPATIENTon 02-09-2021 ICA 4.55 mg/dL Low 4.60-5.30 [facility] Comment on above: Performed By: #### I CA ####[facility] (DEFAULT)[address] [place], [place] [address] [address] MAGNESIUMon 02-09-2021 Magnesium [Mass/Vol] 1.7 mg/dL Normal 1.6-2.6 [facility] Comment on above: Performed By: #### C HM7, MGO, IPB #### [facility] (DEFAULT) [address] [place] [address] MRI SPINE CERVICAL WITH AND WITHOUT CONTRASTon 02-09-2021 MRI SPINE CERVICAL WITH AND WITHOUT CONTRAST EXAM: MRI SPINE CERVICAL WITH AND WITHOUT CONTRAST, 2021 22:24 PM COMPARISON: MRI cervical spine January 27, 2021. CLINICAL INDICATIONS: 46 years Female abscess s/p OR TECHNIQUE: A series of sagittal and axial multisequence images of the cervical spine were obtained both before and after intravenous administration of gadolinium-based contrast using standard protocol. Study was performed at 1.5 Madalyn. CONTRAST: gadoterate Meglumine (DOTAREM) 5 MMOL/10ML injection 1-80 mL; Route of Administration: Intravenous; Dose: 19 mL. Please see chart for additional information.; Please see chart for additional information.; FINDINGS: As seen previously, posterior fusion and laminectomies at the C2-T2 levels. There are interval postoperative changes following ACDF of C2-C3. There is prevertebral phlegmon along with a rim-enhancing fluid collection abscess in the prevertebral soft tissues at the C2-C3 levels measuring approximately 1.1 x 1.9 x 3.2 cm. Additionally, there is a ventral epidural enhancement and fibrotic changes extending from the foramen magnum to the C7 levels. There is a thick peripheral enhancing ventral epidural collection/abscess at the C2 and C3 levels measuring 0.7 x 1.1 x 3.2 cm. This results in severe mass effect at the foramen magnum extending to the C2-C3 level and severe 4 compression with thecal sac measuring up to 5 mm. There is persistent edema involving the cervical spinal cord extending from the inferior medulla to the C4 level, although appears slightly decreased compared to prior examination. Interval decrease in the visualized soft tissue abscess within the left anterior scalene musculature. Small abscess/phlegmon in the right anterior scalene musculature. Alignment is stable. There is mild anterolisthesis C3 on C4 measuring 3 mm. Vertebral body heights are maintained. There is persistent marrow edema and enhancement involving the C2-C7 vertebral bodies in the T1 vertebral body. There is small amount of intervertebral disc fluid at C5-C6 level with mild enhancement. Degenerative changes in the cervical spine unchanged. Enhancement along the surface of the brainstem. Patient is intubated. IMPRESSION: 1. Interval C2-C3 ACDF. Prevertebral phlegmon with a 3.2 cm abscess at the C2-C3 level as well as epidural phlegmon extending from the foramen magnum to the C7-T1 level with ventral epidural abscess of the C2-C3 level. Findings result in severe canal stenosis and cord compression at the C2-C3 level with the thecal sac measuring up to 5 mm. Persistent cervical spinal cord edema although mildly improved from prior examination. 2. Interval decrease in previously visualized abscess in the left anterior scalene musculature. Small right anterior scalene musculature phlegmon/abscess. 3. Persistent marrow edema and enhancement involving the C2-T1 vertebral bodies, may relate to osteomyelitis. Small amount of fluid and enhancement within the C5-C6 intervertebral disc space, may relate to discitis. 4. Persistent leptomeningeal enhancement along the surface of the brainstem, may relate to meningitis. [facility] MRI SPINE LUMBAR WITH AND WI THOUT CONTRASTon 02-09-2021 MRI SPINE LUMBAR WITH AND WITHOUT CONTRAST EXAM: MRI SPINE LUMBAR WITH AND WITHOUT CONTRAST, 2021 22:24 PM COMPARISON: MRI lumbar spine January 27, 2021. CLINICAL INDICATIONS: 46 years Female abscess s/p OR TECHNIQUE: A series of sagittal and axial multisequence images of the lumbar spine were obtained both before and after intravenous administration of gadolinium-based contrast using standard protocol. Study was performed at 1.5 Madalyn. CONTRAST: gadoterate Meglumine (DOTAREM) 5 MMOL/10ML injection 1-80 mL; Route of Administration: Intravenous; Dose: 19 mL. Please see chart for additional information.; Please see chart for additional information.; FINDINGS: Alignment is stable mild leftward curvature of the lumbar spine. Stable deformity of the superior right L2 vertebral body. Patchy marrow edema with minimal enhancement of the L3-L4 vertebral bodies as well as intradiscal fluid without significant enhancement, likely reactive. No surrounding inflammatory changes. Findings are probably degenerative. There is minimal enhancement surrounding the L3-L4 facets in the left L5-S1 facet with persistent edema within the left L5 pedicle. Findings are probably degenerative. There are multilevel degenerative disc changes. The lumbar spine indication prior examination. Facet arthropathy lower lumbar spine. Severe left foraminal narrowing at L4-L5. Conus and cauda equina are within normal limits in signal and position. Interval resolution of previously visualized extensive enhancement along the cauda equina nerve IMPRESSION: 1. Interval resolution of previously visualized enhancement along the cauda equina nerve roots. 2. Marrow edema with mild enhancement involving the L3-L4 endplates and mild intradiscal fluid without significant associated enhancement, likely degenerative. 3. Stable compressive deformity of the right L2 vertebral body. Degenerative changes are unchanged. Normal [facility] MRI SPINE THORACIC WITH AND WITHOUT CONTRASTon 02-09-2021 MRI SPINE THORACIC WITH AND WITHOUT CONTRAST EXAM: MRI SPINE THORACIC WITH AND WITHOUT CONTRAST, 2021 22:24 PM COMPARISON: MRI thoracic spine January 27, 2021. CLINICAL INDICATIONS: 46 years Female abscess s/p OR; TECHNIQUE: A series of sagittal and axial multisequence images of the thoracic spine were obtained both before and after intravenous administration of gadolinium-based contrast using standard protocol. Study was performed at 1.5 Madalyn. CONTRAST: gadoterate Meglumine (DOTAREM) 5 MMOL/10ML injection 1-80 mL; Route of Administration: Intravenous; Dose: 19 mL. Please see chart for additional information.; Please see chart for additional information.; FINDINGS: Posterior surgical fusion extending from the cervical spine to the T2 level. Interval decrease in previously visualized small amount of ventral epidural enhancement in the upper thoracic spine. Alignment is stable. Vertebral bodies are within normal limits in height and no focal suspicious osseous lesions. Stable superior endplate deformity of T5 vertebral body. Paraspinal soft tissues are within normal limits. Thoracic intervertebral discs are within normal limits in height and signal for age. No significant disc herniation. No significant thoracic canal stenosis or cord compression. Previously visualized enhancement along the nerve roots is not appreciated on current examination Thoracic cord is within normal limits in caliber and signal. Bilateral small pleural effusion. Left posterior consolidative opacity in the lung, may relate to atelectasis or pneumonia. Mild ascites. IMPRESSION: 1. Interval decrease in previously visualized mild ventral epidural phlegmon in the upper thoracic spine. 2. Previously visualized enhancement along the nerve roots is not well appreciated on current examination. 3. Small pleural effusions and mild ascites. Left posterior lung consolidative opacity, may relate to pneumonia or atelectasis. Normal [facility] PHOSPHATE, INORGANICon 02-09 Phosphorous 3.6 mg/dL Normal 2.2-4.6 [facility] Comment on above: Performed By: #### C HUMBERTO STEEL IPB #### [facility] (DEFAULT) [address] [place] [address] TRIGLYCERIDEon 02-09-2021 Triglyceride [Mass/Vol] 381 mg/dL High <150 [facility] Comment on above: Order Comment: While on Propofol. Result Comment: [<15 0 mg/dL: Desirable] [150-199 mg/dL: Borderline] [200-499 mg/dL: High] [>500 mg/dL: Very High] Performed By: #### C HM7, MGO, IPB #### [facility] (DEFAULT) [address] [address] VANCRon 02-09-2021 Vancomycin Lvl (random) 24.2 mcg/mL Normal [facility] ([place] Comment on above: Performed By: #### C BC, ADIFF, ANEU, FERR, FOL, MG, TSH, PHOS, B12, FES, PRALB, GFR, CMP #### [facility] [address] [place] [address] CBC,[facility] 2021 Hematocrit (Bld) [Volume fraction] 24.9 % Low 34.9-44.3 [facility] Comment on above: Performed By: #### T YPEC #### [facility] (DEFAULT) [address] [address] Hemoglobin (Bld) [Mass/Vol] 7.9 g/dL Low 11.4-15.2 [facility] Comment on above: Performed By: #### T YPEC #### [facility] (DEFAULT) [address] [address] MCV (RBC) [Entitic vol] 95.8 fL Normal 79.6-97.7 [facility] Comment on above: Performed By: #### T YPEC #### [facility] (DEFAULT) [address] [address] Mean Cell Hgb 30.4 pg Normal 25.9-33.9 [facility] Comment on above: Performed By: #### T YPEC #### [facility] (DEFAULT) [address] [address] Mean Cell Hgb Conc 31.7 g/dL Normal 31.4-35.9 [facility] Comment on above: Performed By: #### T YPEC #### [facility] (DEFAULT) [address] [address] Platelet mean volume (Bld) [Entitic vol] 10.0 fL Normal 8.5-12.2 [facility] Comment on above: Performed By: #### T YPEC #### [facility] (DEFAULT) [address] [place] [address] Platelets (Bld) [#/Vol] 157 10*3/uL Normal 150-393 [facility] Comment on above: Performed By: #### T YPEC #### [facility] (DEFAULT) [address] [place] [address] RBC (Bld) [#/Vol] 2.60 10*6/uL Low 3.91-5.04 [facility] Comment on above: Performed By: #### T YPEC #### [facility] (DEFAULT) [address] [place] [address] 28500 RBC Distribution 14.8 % Normal 10.8-14.9 [facility] Comment on above: Performed By: #### T YPEC #### [facility] (DEFAULT) [address] [place] [address] WBC (Bld) [#/Vol] 3.43 10*3/uL Low 3.99-11.19 [facility] Comment on above: Performed By: #### T YPEC #### [facility] (DEFAULT) [address] [place] [address] CHEM 7 (LYTES,BUN,CREA,GLUC) on 2021 Anion gap [Moles/Vol] 9 mmol/L Normal 7-17 [facility] Comment on above: Performed By: #### T YPEC #### [facility] (DEFAULT) [address] [place] [address] Chloride [Moles/Vol] 106 mmol/L Normal 98-108 [facility] Comment on above: Performed By: #### T YPEC #### [facility] (DEFAULT) [address] [place] [address] CO2 [Moles/Vol] 27 mmol/L Normal 22-30 [facility] Comment on above: Performed By: #### T YPEC #### [facility] (DEFAULT) [address] [place] [address] Creatinine [Mass/Vol] 0.45 mg/dL Low 0.50-1.20 [facility] Comment on above: Performed By: #### T YPEC #### [facility] (DEFAULT) [address] [place] [address] EST GFR, >=60 Normal >=60 [facility] Comment on above: Performed By: #### T YPEC #### [facility] (DEFAULT) [address] [place] [address]60 EST GFR,Non >=60 Normal >=60 [facility] Comment on above: Performed By: #### T YPEC #### [facility] (DEFAULT) [address] [address] Glucose [Mass/Vol] 104 mg/dL High 70-99 [facility] Comment on above: Performed By: #### T YPEC #### [facility] (DEFAULT) [address] [address] Osmolality [Osmolality] 290 mosm/kg Normal 278-305 [facility] Comment on above: Performed By: #### T YPEC #### [facility] (DEFAULT) [address] [address] Potassium [Moles/Vol] 3.7 mmol/L Normal 3.5-5.0 [facility] Comment on above: Performed By: #### T YPEC #### [facility] (DEFAULT) [address] [place] [address] Sodium [Moles/Vol] 138 mmol/L Normal 133-143 [facility] Comment on above: Performed By: #### T YPEC #### [facility] (DEFAULT) [address] [address] Urea nitrogen [Mass/Vol] 15 mg/dL Normal 7-22 [facility] Comment on above: Performed By: #### T YPEC #### [facility] [address] [place] [address] Urea nitrogen/Creatinine [Mass ratio] 33 mg/mg Normal [facility] Comment on above: Performed By: #### T YPEC #### [facility] (DEFAULT) [address] [place] [address] IONIZED CALCIUM, INPATIENTon 2021 ICA 4.55 mg/dL Low 4.60-5.30 [facility] Comment on above: Performed By: #### T YPEC #### [facility] (DEFAULT) [address] [place] [address] MAGNESIUMon 2021 Magnesium [Mass/Vol] 1.6 mg/dL Normal 1.6-2.6 [facility] Comment on above: Performed By: #### T YPEC #### [facility] (DEFAULT) [address] [place] [address] PHOSPHATE, INORGANICon 02-08 Phosphorous 3.5 mg/dL Normal 2.2-4.6 [facility] Comment on above: Performed By: #### T YPEC #### [facility] (DEFAULT) [address] [place] [address] CBC,PLATELETSon 02-07-2021 Hematocrit (Bld) [Volume fraction] 24.5 % Low 34.9-44.3 [facility] Comment on above: Performed By: #### H EMOGC ####[facility] (DEFAULT)[address] [place] [address] Hemoglobin (Bld) [Mass/Vol] 7.7 g/dL Low 11.4-15.2 [facility] Comment on above: Performed By: #### H EMOGC ####[facility] (DEFAULT)[address] [place] [address] MCV (RBC) [Entitic vol] 94.2 fL Normal 79.6-97.7 [facility] Comment on above: Performed By: #### H EMOGC ####[facility] (DEFAULT)[address] [place] [address] Mean Cell Hgb 29.6 pg Normal 25.9-33.9 [facility] Comment on above: Performed By: #### H EMOGC ####[facility] (DEFAULT)[address] [place] [address] Mean Cell Hgb Conc 31.4 g/dL Normal 31.4-35.9 [facility] Comment on above: Performed By: #### H EMOGC ####[facility] (DEFAULT)[address] [place] [address] Platelet mean volume (Bld) [Entitic vol] 9.8 fL Normal 8.5-12.2 [facility] Comment on above: Performed By: #### H EMOGC ####[facility] (DEFAULT)[address] [place] [address] Platelets (Bld) [#/Vol] 163 10*3/uL Normal 150-393 [facility] Comment on above: Performed By: #### H EMOGC ####[facility] (DEFAULT)[address] [place] [address] RBC (Bld) [#/Vol] 2.60 10*6/uL Low 3.91-5.04 [facility] Comment on above: Performed By: #### H EMOGC ####[facility] (DEFAULT)[address] [place] [address] RBC Distribution 14.9 % Normal 10.8-14.9 [facility] Comment on above: Performed By: #### H EMOGC ####[facility] (DEFAULT)[address] [place] [address] WBC (Bld) [#/Vol] 3.25 10*3/uL Low 3.99-11.19 [facility] Comment on above: Performed By: #### H EMOGC ####[facility] (DEFAULT)[address] [place] [address] CHEM 7 (LYTES,BUN,CREA,GLUC) on 02-07-2021 Anion gap [Moles/Vol] 8 mmol/L Normal 7-17 [facility] Comment on above: Performed By: #### KHALIDA GORDON, CHM7 ####[facility] (DEFAULT)[address] [place] [address] Chloride [Moles/Vol] 104 mmol/L Normal 98-108 [facility] Comment on above: Performed By: #### KHALIDA GORDON, CHM7 ####[facility] (DEFAULT)[address] [place] [address] CO2 [Moles/Vol] 30 mmol/L Normal 22-30 [facility] Comment on above: Performed By: #### KHALIDA GORDON, CHM7 ####[facility] (DEFAULT)[address] [place] [address] Creatinine [Mass/Vol] 0.53 mg/dL Normal 0.50-1.20 [facility] Comment on above: Performed By: #### KHALIDA GORDON, CHM7 ####[facility] (DEFAULT)[address] [place] [address] EST GFR, >=60 Normal >=60 [facility] Comment on above: Performed By: #### KHALIDA GORDON, CHM7 ####[facility] (DEFAULT)[address] [place] [address] EST GFR,Non >=60 Normal >=60 [facility] Comment on above: Performed By: #### KHALIDA GORDON, CHM7 ####[facility] (DEFAULT)[address] [place] [address] Glucose [Mass/Vol] 102 mg/dL High 70-99 [facility] Comment on above: Performed By: #### KHALIDA GORDON, CHM7 ####[facility] (DEFAULT)[address] [facility] [place] [address] Osmolality [Osmolality] 289 mosm/kg Normal 278-305 [facility] Comment on above: Performed By: #### KHALIDA GORDON, CHM7 ####[facility] (DEFAULT)[address] [place] [address] Potassium [Moles/Vol] 3.7 mmol/L Normal 3.5-5.0 [facility] Comment on above: Performed By: #### M KHALIDA BYNUM, CHM7 ####[facility] (DEFAULT)[address] [place] [address] Sodium [Moles/Vol] 138 mmol/L Normal 133-143 [facility] Comment on above: Performed By: #### KHALDIA GORDON, CHM7 ####[facility] (DEFAULT)[address] [place] [address], [place] [address] Urea nitrogen [Mass/Vol] 14 mg/dL Normal 7-22 [facility] Comment on above: Performed By: #### M KHALIDA BYNUM, CHM7 ####[facility] (DEFAULT)[address] [facility] [place] [address] Urea nitrogen/Creatinine [Mass ratio] 26 mg/mg Normal [facility] Comment on above: Performed By: #### M KHALIDA BYNUM, CHM7 ####[facility] (DEFAULT)[address] [facility] [place] [address] IONIZED CALCIUM, INPATIENTon 02-07-2021 ICA 4.66 mg/dL Normal 4.60-5.30 [facility] Comment on above: Performed By: #### T YPEC #### [facility] (DEFAULT) [address] [place] [address] MAGNESIUMon 02-07-2021 Magnesium [Mass/Vol] 1.7 mg/dL Normal 1.6-2.6 [facility] Comment on above: Performed By: #### M KHALIDA BYNUM CHM7 ####[facility] (DEFAULT)[address] [address] NOVEL CORONAVIRUS PCRon 01-21 SARS-CoV-2 (COVID-19) RNA CHACE+probe Ql (Unsp spec) Not detected Normal NOT DETECTED [facility] Comment on above: Order Comment: Viral transport media or BAL specimen - Collection must be done while wearing N-95 mask, eye protection, gown and gloves. Please label ALL specimens as 2019-nCoV rule out and deliver by hand.This test was performed using real time PCR and has been approved for the qualitative detection of SARS-CoV-2 nucleic acid. The test has been authorized by the FDA under an emergency use authorization for use by authorized laboratories. Result Comment: [facility] Negative results do not preclude SARS-CoV-2 infection and should not be used as the sole basis for treatment or other patient management decisions. Optimum specimen types and timing for peak viral levels during infections caused by SARS-CoV-2 has not been determined. The possibility of a false negative result should especially be considered if the patient's recent exposures or clinical presentation suggest that SARS-CoV-2 infection is probable, and diagnostic tests for other causes of illness (e.g., other respiratory illness) are negative. Collection of a new specimen and re-testing may be necessary if the patient is critically ill or clinically deteriorating. Performed By: #### T YPEC #### [facility] (DEFAULT) [address] [address] PHOSPHATE, INORGANICon 02-07 Phosphorous 4.0 mg/dL Normal 2.2-4.6 [facility] Comment on above: Performed By: #### M KHALIDA BYNUM, ERWIN7 ####[facility] (DEFAULT)[address] [address] VANCOMYCIN LEVEL, TROUGH (IN E DRUG LEVEL)on 02-07-2021 Vancomycin, Trough 21.7 mcg/mL High Therapeut ic Range: 10.0-20.0 mcg/mL [facility] Comment on above: Order Comment: Pleas e draw level at specified interval PRIOR to next dose. Performed By: #### V ANCTR ####[facility] (DEFAULT)[address] [place] [address] CBC,PLATELETSon 02-06-2021 Hematocrit (Bld) [Volume fraction] 24.0 % Low 34.9-44.3 [facility] Comment on above: Performed By: #### Alice HMSwapnil MGO, IPB #### [facility] (DEFAULT) [address] [place] [address] Hemoglobin (Bld) [Mass/Vol] 7.6 g/dL Low 11.4-15.2 [facility] Comment on above: Performed By: #### Alice STEEL MGO, IPB #### [facility] (DEFAULT) [address] [place] [address] MCV (RBC) [Entitic vol] 94.1 fL Normal 79.6-97.7 [facility] Comment on above: Performed By: #### Alice HMSwapnil MGO, IPB #### [facility] (DEFAULT) [address] [address] Mean Cell Hgb 29.8 pg Normal 25.9-33.9 [facility] Comment on above: Performed By: #### Alice HM7 MGO, IPB #### [facility] (DEFAULT) [address] [place] [address] Mean Cell Hgb Conc 31.7 g/dL Normal 31.4-35.9 [facility] Comment on above: Performed By: #### Alice HM7, MGO, IPB #### [facility] (DEFAULT) [address] [address] Platelet mean volume (Bld) [Entitic vol] 9.5 fL Normal 8.5-12.2 [facility] Comment on above: Performed By: #### Alice HM7, MGO, IPB #### [facility] (DEFAULT) [address] [place] [address] Platelets (Bld) [#/Vol] 167 10*3/uL Normal 150-393 [facility] Comment on above: Performed By: #### HUMBERTO REESE, IPB #### [facility] (DEFAULT) [address] [place] [address] RBC (Bld) [#/Vol] 2.55 10*6/uL Low 3.91-5.04 [facility] Comment on above: Performed By: #### Alice STEEL MGO, IPB #### [facility] (DEFAULT) [address] [place] [address] RBC Distribution 14.6 % Normal 10.8-14.9 [facility] Comment on above: Performed By: #### Alice STEEL MGO, IPB #### [facility] (DEFAULT) [address] [place] [address] WBC (Bld) [#/Vol] 3.70 10*3/uL Low 3.99-11.19 [facility] Comment on above: Performed By: #### HUMBEROT REESE, IPB #### [facility] (DEFAULT) [address] [place] [address] CHEM 7 (LYTES,BUN,CREA,GLUC) on 02-06-2021 Anion gap [Moles/Vol] 9 mmol/L Normal 7-17 [facility] Comment on above: Performed By: #### Alice HM7 MGO, IPB #### [facility] (DEFAULT) [address] [place] [address] Chloride [Moles/Vol] 104 mmol/L Normal 98-108 [facility] Comment on above: Performed By: #### Alice HM7 MGO, IPB #### [facility] (DEFAULT) [address] [place] [address] CO2 [Moles/Vol] 29 mmol/L Normal 22-30 [facility] Comment on above: Performed By: #### Alice STEEL MGO, IPB #### [facility] (DEFAULT) [address] [place] [address] Creatinine [Mass/Vol] 0.60 mg/dL Normal 0.50-1.20 [facility] Comment on above: Performed By: #### C HM7, MGO, IPB #### [facility] (DEFAULT) [address] [place] [address] EST GFR, >=60 Normal >=60 [facility] Comment on above: Performed By: #### C HM7, MGO, IPB #### [facility] (DEFAULT) [address] [place] [address] EST GFR,Non >=60 Normal >=60 [facility] Comment on above: Performed By: #### C HM7, MGO, IPB #### [facility] (DEFAULT) [address] [place] [address] Glucose [Mass/Vol] 108 mg/dL High 70-99 [facility] Comment on above: Performed By: #### C HM7, MGO, IPB #### [facility] (DEFAULT) [address] [place] [address] Osmolality [Osmolality] 289 mosm/kg Normal 278-305 [facility] Comment on above: Performed By: #### C HM7, MGO, IPB #### [facility] (DEFAULT) [address] [place] [address] Potassium [Moles/Vol] 3.6 mmol/L Normal 3.5-5.0 [facility] Comment on above: Performed By: #### C HM7, MGO, IPB #### [facility] (DEFAULT) [address] [place] [address] Sodium [Moles/Vol] 138 mmol/L Normal 133-143 [facility] Comment on above: Performed By: #### C HM7, MGO, IPB #### [facility] (DEFAULT) [address] [place] [address] Urea nitrogen [Mass/Vol] 14 mg/dL Normal 7-22 [facility] Comment on above: Performed By: #### HUMBERTO REESE, IPB #### [facility] (DEFAULT) [address] [place] [address] Urea nitrogen/Creatinine [Mass ratio] 23 mg/mg Normal [facility] Comment on above: Performed By: #### HUMBERTO REESE, IPB #### [facility] (DEFAULT) [address] [place] [address] IONIZED CALCIUM, INPATIENTon 02-06-2021 ICA 4.58 mg/dL Low 4.60-5.30 [facility] Comment on above: Order Comment: If io nized calcium is less than or equal to 3.0 mg/dL, recheck ionized calcium 2 hours after replacement. Performed By: #### U [id number] #### [facility] (DEFAULT) [address] [place] [address] MAGNESIUMon 02-06-2021 Magnesium [Mass/Vol] 1.6 mg/dL Normal 1.6-2.6 [facility] Comment on above: Performed By: #### HUMBERTO ERESE, IPB #### [facility] (DEFAULT) [address] [place] [address] PHOSPHATE, INORGANICon 02-06 Phosphorous 3.4 mg/dL Normal 2.2-4.6 [facility] Comment on above: Performed By: #### C HUMBERTO STEEL, IPB #### [facility] (DEFAULT) [address] [place] [address] CBC,PLATELETSon 02-05-2021 Hematocrit (Bld) [Volume fraction] 24.0 % Low 34.9-44.3 [facility] Comment on above: Performed By: #### U [id number] #### [facility] (DEFAULT) [address] [place] [address] Hemoglobin (Bld) [Mass/Vol] 7.8 g/dL Low 11.4-15.2 [facility] Comment on above: Performed By: #### U [id number] #### [facility] (DEFAULT) [address] [place] [address] MCV (RBC) [Entitic vol] 92.0 fL Normal 79.6-97.7 [facility] Comment on above: Performed By: #### U [id number] #### [facility] (DEFAULT) [address] [place] [address] Mean Cell Hgb 29.9 pg Normal 25.9-33.9 [facility] Comment on above: Performed By: #### U [id number] #### [facility] (DEFAULT) [address] [address] Mean Cell Hgb Conc 32.5 g/dL Normal 31.4-35.9 [facility] Comment on above: Performed By: #### U [id number] #### [facility] (DEFAULT) [address] [place] [address] Platelet mean volume (Bld) [Entitic vol] 9.1 fL Normal 8.5-12.2 [facility] Comment on above: Performed By: #### U [id number] #### [facility] (DEFAULT) [address] [address] Platelets (Bld) [#/Vol] 174 10*3/uL Normal 150-393 [facility] Comment on above: Performed By: #### U [id number] #### [facility] (DEFAULT) [address] [address] RBC (Bld) [#/Vol] 2.61 10*6/uL Low 3.91-5.04 [facility] Comment on above: Performed By: #### U [id number] #### [facility] (DEFAULT) [address] [address] RBC Distribution 14.6 % Normal 10.8-14.9 [facility] [facility] Comment on above: Performed By: #### U [id number] #### [facility] (DEFAULT) [address] [place] [address] 70442 WBC (Bld) [#/Vol] 4.21 10*3/uL Normal 3.99-11.19 [facility] Comment on above: Performed By: #### U [id number] #### [facility] (DEFAULT) [address] [place] [address] 94965 CHEM 7 (LYTES,BUN,CREA,GLUC) on 02-05-2021 Anion gap [Moles/Vol] 9 mmol/L Normal 7-17 [facility] Comment on above: Performed By: #### T YPEC #### [facility] (DEFAULT) [address] [place] [address] 43361 Chloride [Moles/Vol] 104 mmol/L Normal 98-108 [facility] Comment on above: Performed By: #### T YPEC #### [facility] (DEFAULT) [address] [place] [address] 75289 CO2 [Moles/Vol] 27 mmol/L Normal 22-30 [facility] Comment on above: Performed By: #### T YPEC #### [facility] (DEFAULT) [address] [place] [address] 80309 Creatinine [Mass/Vol] 0.56 mg/dL Normal 0.50-1.20 [facility] Comment on above: Performed By: #### T YPEC #### [facility] (DEFAULT) [address] [place] [address] 54799 EST GFR, >=60 Normal >=60 [facility] Comment on above: Performed By: #### T YPEC #### [facility] (DEFAULT) [address] [address] EST GFR,Non >=60 Normal >=60 [facility] Comment on above: Performed By: #### T YPEC #### [facility] (DEFAULT) [address] [place] [address] 01310 Glucose [Mass/Vol] 115 mg/dL High 70-99 [facility] Comment on above: Performed By: #### T YPEC #### [facility] (DEFAULT) [address] [place] [address] Osmolality [Osmolality] 286 mosm/kg Normal 278-305 [facility] Comment on above: Performed By: #### T YPEC #### [facility] (DEFAULT) [address] [place] [address] 97878 Potassium [Moles/Vol] 3.0 mmol/L Low 3.5-5.0 [facility] Comment on above: Performed By: #### T YPEC #### [facility] (DEFAULT) [address] [place] [address] 33302 Sodium [Moles/Vol] 137 mmol/L Normal 133-143 [facility] Comment on above: Performed By: #### T YPEC #### [facility] (DEFAULT) [address] [place] [address] 67274 Urea nitrogen [Mass/Vol] 11 mg/dL Normal 7-22 [facility] Comment on above: Performed By: #### T YPEC #### [facility] (DEFAULT) [address] [place] [address] 20953 Urea nitrogen/Creatinine [Mass ratio] 20 mg/mg Normal [facility] Comment on above: Performed By: #### T YPEC #### [facility] (DEFAULT) [address] [place] [address] 54084 IONIZED CALCIUM, INPATIENTon 02-05-2021 ICA 4.43 mg/dL Low 4.60-5.30 [facility] Comment on above: Performed By: #### T YPEC #### [facility] (DEFAULT) [address] [place] [address] 19962 MAGNESIUMon 02-05-2021 Magnesium [Mass/Vol] 1.3 mg/dL Low 1.6-2.6 [facility] Comment on above: Performed By: #### T YPEC #### [facility] (DEFAULT) [address] [address] NOVEL CORONAVIRUS PCRon 01-21 SARS-CoV-2 (COVID-19) RNA CHACE+probe Ql (Unsp spec) Not detected Normal NOT DETECTED [facility] Comment on above: Order Comment: Viral transport media or BAL specimen - Collection must be done while wearing N-95 mask, eye protection, gown and gloves. Please label ALL specimens as 2019-nCoV rule out and deliver by hand.Pt does not have to go into isolation. Testing needed for LTAC placementThis test was performed using real time PCR and has been approved for the qualitative detection of SARS-CoV-2 nucleic acid. The test has been authorized by the FDA under an emergency use authorization for use by authorized laboratories. Result Comment: [facility] Negative results do not preclude SARS-CoV-2 infection and should not be used as the sole basis for treatment or other patient management decisions. Optimum specimen types and timing for peak viral levels during infections caused by SARS-CoV-2 has not been determined. The possibility of a false negative result should especially be considered if the patient's recent exposures or clinical presentation suggest that SARS-CoV-2 infection is probable, and diagnostic tests for other causes of illness (e.g., other respiratory illness) are negative. Collection of a new specimen and re-testing may be necessary if the patient is critically ill or clinically deteriorating. Performed By: #### T YPEC #### [facility] (DEFAULT) [address] [address] PHOSPHATE, INORGANICon 02-05 Phosphorous 2.7 mg/dL Normal 2.2-4.6 [facility] Comment on above: Performed By: #### T YPEC #### [facility] (DEFAULT) [address] [address] CBC,PLATELETSon 02-04-2021 Hematocrit (Bld) [Volume fraction] 25.2 % Low 34.9-44.3 [facility] Comment on above: Performed By: #### U [id number] #### [facility] (DEFAULT) [address] [place] [address] 81457 Hemoglobin (Bld) [Mass/Vol] 8.1 g/dL Low 11.4-15.2 [facility] Comment on above: Performed By: #### U [id number] #### [facility] (DEFAULT) [address] [address] MCV (RBC) [Entitic vol] 94.0 fL Normal 79.6-97.7 [facility] Comment on above: Performed By: #### U [id number] #### [facility] (DEFAULT) [address] [address] Mean Cell Hgb 30.2 pg Normal 25.9-33.9 [facility] Comment on above: Performed By: #### U [id number] #### [facility] (DEFAULT) [address] [address] Mean Cell Hgb Conc 32.1 g/dL Normal 31.4-35.9 [facility] Comment on above: Performed By: #### U [id number] #### [facility] (DEFAULT) [address] [address] Platelet mean volume (Bld) [Entitic vol] 9.0 fL Normal 8.5-12.2 [facility] Comment on above: Performed By: #### U [id number] #### [facility] (DEFAULT) [address] [address] Platelets (Bld) [#/Vol] 181 10*3/uL Normal 150-393 [facility] Comment on above: Performed By: #### U [id number] #### [facility] (DEFAULT) [address] [address] RBC (Bld) [#/Vol] 2.68 10*6/uL Low 3.91-5.04 [facility] Comment on above: Performed By: #### U [id number] #### [facility] (DEFAULT) [address] [place] [address] 12547 RBC Distribution 14.7 % Normal 10.8-14.9 [facility] Comment on above: Performed By: #### U [id number] #### [facility] (DEFAULT) [address] [place] [address] 94110 WBC (Bld) [#/Vol] 4.51 10*3/uL Normal 3.99-11.19 [facility] Comment on above: Performed By: #### U [id number] #### [facility] (DEFAULT) [address] [place] [address] 18150 CHEM 7 (LYTES,BUN,CREA,GLUC) on 02-04-2021 Anion gap [Moles/Vol] 12 mmol/L Normal 7-17 [facility] Comment on above: Performed By: #### M NORM BYNUM, IPB ####[facility] (DEFAULT)[address] [place] [address] 67029 Chloride [Moles/Vol] 101 mmol/L Normal 98-108 [facility] Comment on above: Performed By: #### Jo BYNUM CHM7, IPB ####[facility] (DEFAULT)[address] [place] [address] 07697 CO2 [Moles/Vol] 25 mmol/L Normal 22-30 [facility] Comment on above: Performed By: #### M AGUILAR BYNUMM7, IPB ####[facility] (DEFAULT)[address] [place] [address] 30765 Creatinine [Mass/Vol] 0.61 mg/dL Normal 0.50-1.20 [facility] Comment on above: Performed By: #### Jo BYNUM CHM7, IPB ####[facility] (DEFAULT)[address] [place] [address] 32973 EST GFR, >=60 Normal >=60 [facility] Comment on above: Performed By: #### M GO, CHM7, IPB ####[facility] (DEFAULT)[address] [place] [address] EST GFR,Non >=60 Normal >=60 [facility] Comment on above: Performed By: #### M AGUILAR BYNUMM7, IPB ####[facility] (DEFAULT)[address] [place] [address] Glucose [Mass/Vol] 70 mg/dL Normal 70-99 [facility] Comment on above: Performed By: #### M NORM BYNUM, IPB ####[facility] (DEFAULT)[address] [place] [address] Osmolality [Osmolality] 280 mosm/kg Normal 278-305 [facility] Comment on above: Performed By: #### Jo BYNUM CHMSwapnil, IPB ####[facility] (DEFAULT)[address] [place] [address] Potassium [Moles/Vol] 3.3 mmol/L Low 3.5-5.0 [facility] Comment on above: Performed By: #### M NORM BYNUM, IPB ####[facility] (DEFAULT)[address] [place] [address] Sodium [Moles/Vol] 135 mmol/L Normal 133-143 [facility] Comment on above: Performed By: #### M AGUILAR BYNUMM7, IPB ####[facility] (DEFAULT)[address] [place] [address] Urea nitrogen [Mass/Vol] 12 mg/dL Normal 7-22 [facility] Comment on above: Performed By: #### M AGUILAR BYNUMMSwapnil, IPB ####[facility] (DEFAULT)[address] [place] [address] Urea nitrogen/Creatinine [Mass ratio] 20 mg/mg Normal [facility] Comment on above: Performed By: #### M AGUILAR BYNUMMSwapnil, IPB ####[facility] (DEFAULT)[address] [place], [place] [address] [address] IONIZED CALCIUM, INPATIENTon 02-04-2021 ICA 4.41 mg/dL Low 4.60-5.30 [facility] Comment on above: Performed By: #### X M #### [facility] (DEFAULT) [address] [place] [address] 57147 MAGNESIUMon 02-04-2021 Magnesium [Mass/Vol] 1.4 mg/dL Low 1.6-2.6 [facility] Comment on above: Performed By: #### G EN #### [facility] (DEFAULT) [address] [place] [address] 02947 PHOSPHATE, INORGANICon 02-04 Phosphorous 3.4 mg/dL Normal 2.2-4.6 [facility] Comment on above: Performed By: #### G EN #### [facility] (DEFAULT) [address] [place] [address] 06813 CBC,PLATELETSon 02-03-2021 Hematocrit (Bld) [Volume fraction] 24.5 % Low 34.9-44.3 [facility] Comment on above: Performed By: #### HUMBERTO REESE, IPB #### [facility] (DEFAULT) [address] [place] [address] 95557 Hemoglobin (Bld) [Mass/Vol] 7.6 g/dL Low 11.4-15.2 [facility] Comment on above: Performed By: #### HUMBERTO REESE, IPB #### [facility] (DEFAULT) [address] [place] [address] 37481 MCV (RBC) [Entitic vol] 94.6 fL Normal 79.6-97.7 [facility] Comment on above: Performed By: #### HUMBERTO REESE, IPB #### [facility] (DEFAULT) [address] [place] [address] 38909 Mean Cell Hgb 29.3 pg Normal 25.9-33.9 [facility] Comment on above: Performed By: #### C HM7, MGO, IPB #### [facility] (DEFAULT) [address] [place] [address] 07981 Mean Cell Hgb Conc 31.0 g/dL Low 31.4-35.9 [facility] Comment on above: Performed By: #### Alice HM7, MGO, IPB #### [facility] (DEFAULT) [address] [place] [address] 70730 Platelet mean volume (Bld) [Entitic vol] 8.9 fL Normal 8.5-12.2 [facility] Comment on above: Performed By: #### Alice HM7, MGO, IPB #### [facility] (DEFAULT) [address] [place] [address] 10096 Platelets (Bld) [#/Vol] 195 10*3/uL Normal 150-393 [facility] Comment on above: Performed By: #### Alice HM7, MGO, IPB #### [facility] (DEFAULT) [address] [place] [address] 35979 RBC (Bld) [#/Vol] 2.59 10*6/uL Low 3.91-5.04 [facility] Comment on above: Performed By: #### Alice HM7, MGO, IPB #### [facility] (DEFAULT) [address] [place] [address] 79865 RBC Distribution 15.6 % High 10.8-14.9 [facility] Comment on above: Performed By: #### Alice HM7, MGO, IPB #### [facility] (DEFAULT) [address] [place] [address] 49651 WBC (Bld) [#/Vol] 5.16 10*3/uL Normal 3.99-11.19 [facility] Comment on above: Performed By: #### C HM7, MGO, IPB #### [facility] (DEFAULT) [address] [place] [address] 40437 CHEM 7 (LYTES,BUN,CREA,GLUC) on 02-03-2021 Anion gap [Moles/Vol] 12 mmol/L Normal 7-17 [facility] Comment on above: Performed By: #### C HM7, MGO, IPB #### [facility] (DEFAULT) [address] [place] [address] 75336 Chloride [Moles/Vol] 106 mmol/L Normal 98-108 [facility] Comment on above: Performed By: #### C HM7, MGO, IPB #### [facility] (DEFAULT) [address] [place] [address] 04094 CO2 [Moles/Vol] 25 mmol/L Normal 22-30 [facility] Comment on above: Performed By: #### C HM7, MGO, IPB #### [facility] (DEFAULT) [address] [place] [address] 83796 Creatinine [Mass/Vol] 0.62 mg/dL Normal 0.50-1.20 [facility] Comment on above: Performed By: #### C HM7, MGO, IPB #### [facility] (DEFAULT) [address] [place] [address] 62123 EST GFR, >=60 Normal >=60 [facility] Comment on above: Performed By: #### C HM7, MGO, IPB #### [facility] (DEFAULT) [address] [place] [address] 13936 EST GFR,Non >=60 Normal >=60 [facility] Comment on above: Performed By: #### C HM7, MGO, IPB #### [facility] (DEFAULT) [address] [place] [address] 37335 Glucose [Mass/Vol] 70 mg/dL Normal 70-99 [facility] Comment on above: Performed By: #### C HM7, MGO, IPB #### [facility] (DEFAULT) [address] [place] [address] 67533 Osmolality [Osmolality] 289 mosm/kg Normal 278-305 [facility] Comment on above: Performed By: #### HUMBERTO REESE, IPB #### [facility] (DEFAULT) [address] [place] [address] 01539 Potassium [Moles/Vol] 3.4 mmol/L Low 3.5-5.0 [facility] Comment on above: Performed By: #### Alice STEEL MGO, IPB #### [facility] (DEFAULT) [address] [place] [address] 25759 Sodium [Moles/Vol] 140 mmol/L Normal 133-143 [facility] Comment on above: Performed By: #### Alice STEEL MGO, IPB #### [facility] (DEFAULT) [address] [place] [address] 03317 Urea nitrogen [Mass/Vol] 12 mg/dL Normal 7-22 [facility] Comment on above: Performed By: #### HUMBERTO REESE, IPB #### [facility] (DEFAULT) [address] [place] [address] 08043 Urea nitrogen/Creatinine [Mass ratio] 19 mg/mg Normal [facility] Comment on above: Performed By: #### HUMBERTO REESE, IPB #### [facility] (DEFAULT) [address] [place] [address] 41674 HIGH SENSITIVITY TROPONIN I - SINGLE ORDERon 02-03-2021 hs-Troponin I 3 ng/L Normal <34 [facility] Comment on above: Order Comment: Acute Coronary Syndrome (ACS): Initial Evaluation and Management:[email or web address] [email or web address]%20Coronary%20Syndrome.[email or web address]=[email or web address] Performed By: #### U [id number] #### [facility] (DEFAULT) [address] [place] [address] 95435 INSERTION CVC TUNNELEDon INSERTION CVC TUNNELED EXAM: IR INSERTION CVC TUNNELED, 02/03/2021 10:43 AM CLINICAL INDICATIONS: Z79.2:penitentiary (current) use of antibiotics MEDICATIONS: 9:50 AM 02/03/21 fentaNYL (SUBLIMAZE) injection 300 mcg 50 mcg Given Rate: 0 Route: Intravenous ; 9:50 AM 02/03/21 midazolam (VERSED) injection 10 mg 1 mg Given Rate: 0 Route: Intravenous ; 10:00 AM 02/03/21 fentaNYL (SUBLIMAZE) injection 300 mcg 50 mcg Given Rate: 0 Route: Intravenous ; 10:12 AM 02/03/21 midazolam (VERSED) injection 10 mg 1 mg Given Rate: 0 Route: Intravenous ; 10:16 AM 02/03/21 fentaNYL (SUBLIMAZE) injection 300 mcg 50 mcg Given Rate: 0 Route: Intravenous; 10:16 AM 02/03/21 midazolam (VERSED) injection 10 mg 1 mg Given Rate: 0 Route: Intravenous; 10:25 AM 02/03/21 fentaNYL (SUBLIMAZE) injection 300 mcg 50 mcg Given Rate: 0 Route: Intravenous; 10:25 AM 02/03/21 midazolam (VERSED) injection 10 mg 1 mg Given Rate: 0 Route: Intravenous; 10:25 AM 02/03/21 lidocaine-epinephrine 2 %[id number] injection 10 mL Given Rate: 0 Route: Subcutaneous Site: Other ; Total Fluoro Time: 0.9 minutes Operators: STEVE Kimbrough-[employer]TER ---- Consent: Following discussion of the risks, benefits and alternatives of the procedure, written informed consent was obtained. Moderate Sedation: I performed Moderate Sedation which included the presence of a nurse that assisted in monitoring the patients level of consciousness and physiological status. After administration of sedative medication(s), I spent 35 minutes of continuous zyze-yc-ymyc time with the patient. COMPARISON: No prior studies available for comparison. TIME OUT: Prior to the procedure a time out was performed in the presence of the patient and all personnel involved in this case. The patient identity, procedure type, procedure side/site, and allergies were verified. ........................ ........................ .............. Procedure Performed: Ultrasound-guided access of the patent Procedure Performed: 1. Ultrasound-guided access of the patent right internal jugular. 2. Placement of a tunneled central venous catheter (Power Line) under fluoroscopic guidance. Position: The patient was transferred to the IR laboratory and positioned supine on the procedure table. The right neck and chest was prepared and draped using maximum sterile barrier technique. This consisted of cap, mask, hand hygiene, sterile gown, sterile gloves, 2% chlorhexidine solution for cutaneous antisepsis, and occlusive sterile draping of the field. Time Out: A time out was performed prior to the procedure in the presence of the patient and all personnel involved in the case. The patient's identity, procedure type, procedure side/site, and allergies were verified. Procedure Description: After infiltration of the skin and subcutaneous tissue over the target vessel with lidocaine, the patent vessel was accessed under direct sterile sonographic guidance. An image of the target vessel was saved to the image archive system. The guide wire was used to measure the appropriate catheter length, and the access sheath was then flushed and capped. An appropriate subcutaneous tract was selected, the skin and subcutaneous tissue were infiltrated with lidocaine, and the tunneled catheter was brought through the tract using the tunneling device. Next, a peel-away sheath was placed. The catheter was cut to measured length then placed via the peel-away sheath. The catheter tip was positioned in the right atrium, confirmed by fluoroscopy. The catheter was secured to the skin using suture, and the catheter was aspirated and flushed without difficulty. The access area was then cleaned and dressed appropriately. DEVICE: Type: Tunneled Power Line Lumens: Dual Length: Cut to measured length FINDINGS: The tip of the catheter is positioned in the right atrium. IMPRESSION: 1. Placement of a tunneled central venous catheter (Power Line) under sonographic and fluoroscopic guidance via the patent right internal jugular. 2. The catheter is ready for use. Shyam Carpio MD was in the room and participated during all espinal portions of this procedure. I personally viewed and interpreted these images and I have reviewed and approved this report. Most Recent Value Fluoro time: 0.9 Fluoro time measurement: minutes Rad Dose: 4 Rad Dose Measurement: mGy Meds Meds Event Details User 9:36 AM 02/03/21 Timeout: Sign-in Verified by Melba Angeles RN at 02/03/2021 9:36 AM JT 9:50 AM 02/03/21 fentaNYL (SUBLIMAZE) injection 300 mcg 50 mcg Given Rate: 0 Route: Intravenous Comment: verbal order received from Dr. Hardin to administer. Order repeated back. JT 9:50 AM 02/03/21 midazolam (VERSED) injection 10 mg 1 mg Given Rate: 0 Route: Intraveno (more content not included)... Normal [facility] IONIZED CALCIUM, INPATIENTon 02-03-2021 ICA 4.29 mg/dL Low 4.60-5.30 [facility] Comment on above: Performed By: #### C HM7, MGO, IPB #### [facility] (DEFAULT) [address] [place] [address] 95234 MAGNESIUMon 02-03-2021 Magnesium [Mass/Vol] 1.7 mg/dL Normal 1.6-2.6 [facility] Comment on above: Performed By: #### Alice HM7, MGO, IPB #### [facility] (DEFAULT) [address] [place] [address] 38019 PHOSPHATE, INORGANICon 02-03 Phosphorous 3.4 mg/dL Normal 2.2-4.6 [facility] Comment on above: Performed By: #### C HM7, MGO, IPB #### [facility] (DEFAULT) [address] [place] [address] 69998 XR CHEST PORTABLEon 02-04-20 XR CHEST PORTABLE EXAM: XR CHEST RUSSEL BLE, 02/03/2021 08:53 AM COMPARISON: The 2020. CLINICAL INDICATIONS: pleural effusion RELEVANT CLINICAL HISTORY: FINDINGS: (Adequate technique) Tubes, Lines, and life support hardware: The tracheostomy is seen in satisfactory position. Lungs: Triangular-shaped retrocardiac opacity in the left lower lobe. There are no pleural effusions. There is no pneumothorax. Cardiac, mediastinum, and hilum: The cardiomediastinal silhouette is within normal limits. ... Pulmonary Vessels: Normal, without PVH Bones, chest wall, and soft tissues: There are mild degenerative changes of the thoracic spine. Impression: 1. Triangular-shaped consolidative opacity in the left lower lobe. This likely represents left lower lobe pneumonia. Normal [facility] CBC,PLATELETSon 02-02-2021 Hematocrit (Bld) [Volume fraction] 24.6 % Low 34.9-44.3 [facility] Comment on above: Performed By: #### T YPEC #### [facility] (DEFAULT) [address] [place] [address] 07578 Hemoglobin (Bld) [Mass/Vol] 7.8 g/dL Low 11.4-15.2 [facility] Comment on above: Performed By: #### T YPEC #### [facility] (DEFAULT) [address] [address] MCV (RBC) [Entitic vol] 94.3 fL Normal 79.6-97.7 [facility] Comment on above: Performed By: #### T YPEC #### [facility] (DEFAULT) [address] [place] [address] 95102 Mean Cell Hgb 29.9 pg Normal 25.9-33.9 [facility] Comment on above: Performed By: #### T YPEC #### [facility] (DEFAULT) [address] [address] Mean Cell Hgb Conc 31.7 g/dL Normal 31.4-35.9 [facility] Comment on above: Performed By: #### T YPEC #### [facility] (DEFAULT) [address] [place] [address] 04167 Platelet mean volume (Bld) [Entitic vol] 9.2 fL Normal 8.5-12.2 [facility] Comment on above: Performed By: #### T YPEC #### [facility] (DEFAULT) [address] [place] [address] 04403 Platelets (Bld) [#/Vol] 200 10*3/uL Normal 150-393 [facility] Comment on above: Performed By: #### T YPEC #### [facility] (DEFAULT) [address] [place] [address] 73435 RBC (Bld) [#/Vol] 2.61 10*6/uL Low 3.91-5.04 [facility] Comment on above: Performed By: #### T YPEC #### [facility] (DEFAULT) [address] [place] [address] 07652 RBC Distribution 16.3 % High 10.8-14.9 [facility] Comment on above: Performed By: #### T YPEC #### [facility] (DEFAULT) [address] [place] [address] [id number] WBC (Bld) [#/Vol] 4.68 10*3/uL Normal 3.99-11.19 [facility] Comment on above: Performed By: #### T YPEC #### [facility] (DEFAULT) [address] [place] [address] 12073 CHEM 7 (LYTES,BUN,CREA,GLUC) on 02-02-2021 Anion gap [Moles/Vol] 11 mmol/L Normal 7-17 [facility] Comment on above: Performed By: #### C HM7, MGO, IPB #### [facility] (DEFAULT) [address] [place] [address] 06586 Chloride [Moles/Vol] 108 mmol/L Normal 98-108 [facility] Comment on above: Performed By: #### C HM7, MGO, IPB #### [facility] (DEFAULT) [address] [place] [address] 84594 CO2 [Moles/Vol] 27 mmol/L Normal 22-30 [facility] Comment on above: Performed By: #### Alice HM7, MGO, IPB #### [facility] (DEFAULT) [address] [place] [address] 41586 Creatinine [Mass/Vol] 0.69 mg/dL Normal 0.50-1.20 [facility] Comment on above: Performed By: #### C HM7, MGO, IPB #### [facility] (DEFAULT) [address] [place] [address] 65175 EST GFR, >=60 Normal >=60 [facility] Comment on above: Performed By: #### Alice HM7, MGO, IPB #### [facility] (DEFAULT) [address] [place] [address] 39540 EST GFR,Non >=60 Normal >=60 [facility] Comment on above: Performed By: #### C HM7, MGO, IPB #### [facility] (DEFAULT) [address] [place] [address] 99490 Glucose [Mass/Vol] 81 mg/dL Normal 70-99 [facility] Comment on above: Performed By: #### Alice HM7, MGO, IPB #### [facility] (DEFAULT) [address] [place] [address] 75034 Osmolality [Osmolality] 295 mosm/kg Normal 278-305 [facility] Comment on above: Performed By: #### C HM7, MGO, IPB #### [facility] (DEFAULT) [address] [place] [address] 92336 Potassium [Moles/Vol] 3.7 mmol/L Normal 3.5-5.0 [facility] Comment on above: Performed By: #### C HM7, MGO, IPB #### [facility] (DEFAULT) [address] [place] [address] 40136 Sodium [Moles/Vol] 142 mmol/L Normal 133-143 [facility] Comment on above: Performed By: #### C DAMIÁN MGO, IPB #### [facility] (DEFAULT) [address] [place] [address] 99495 Urea nitrogen [Mass/Vol] 13 mg/dL Normal 7-22 [facility] Comment on above: Performed By: #### Alice HMSwapnil, MGO, IPB #### [facility] (DEFAULT) [address] [place] [address] 83680 Urea nitrogen/Creatinine [Mass ratio] 19 mg/mg Normal [facility] Comment on above: Performed By: #### Alice STEEL MGO, IPB #### [facility] (DEFAULT) [address] [place] [address] 60109 IONIZED CALCIUM, INPATIENTon 02-02-2021 ICA 4.61 mg/dL Normal 4.60-5.30 [facility] Comment on above: Performed By: #### T YPEC #### [facility] (DEFAULT) [address] [place] [address] 81523 MAGNESIUMon 02-02-2021 Magnesium [Mass/Vol] 1.9 mg/dL Normal 1.6-2.6 [facility] Comment on above: Performed By: #### Alice HM7, MGO, IPB #### [facility] (DEFAULT) [address] [place] [address] 24352 PHOSPHATE, INORGANICon 02-02 Phosphorous 4.4 mg/dL Normal 2.2-4.6 [facility] Comment on above: Performed By: #### Alice HM7, MGO, IPB #### [facility] (DEFAULT) [address] [place] [address] 11629 CBC,PLATELETSon 02-01-2021 Hematocrit (Bld) [Volume fraction] 25.4 % Low 34.9-44.3 [facility] Comment on above: Performed By: #### T YPEC #### [facility] (DEFAULT) [address] [address] Hemoglobin (Bld) [Mass/Vol] 8.1 g/dL Low 11.4-15.2 [facility] Comment on above: Performed By: #### T YPEC #### [facility] (DEFAULT) [address] [address] MCV (RBC) [Entitic vol] 95.1 fL Normal 79.6-97.7 [facility] Comment on above: Result Comment: Resu lts inconsistent with previous results Performed By: #### T YPEC #### [facility] (DEFAULT) [address] 7[address] Mean Cell Hgb 30.3 pg Normal 25.9-33.9 [facility] Comment on above: Performed By: #### T YPEC #### [facility] (DEFAULT) [address] [address] Mean Cell Hgb Conc 31.9 g/dL Normal 31.4-35.9 [facility] Comment on above: Performed By: #### T YPEC #### [facility] (DEFAULT) [address] 8[address] Platelet mean volume (Bld) [Entitic vol] 8.9 fL Normal 8.5-12.2 [facility] Comment on above: Performed By: #### T YPEC #### [facility] (DEFAULT) [address] [address] Platelets (Bld) [#/Vol] 320 10*3/uL Normal 150-393 [facility] Comment on above: Performed By: #### T YPEC #### [facility] (DEFAULT) [address] [address] RBC (Bld) [#/Vol] 2.67 10*6/uL Low 3.91-5.04 [facility] Comment on above: Performed By: #### T YPEC #### [facility] (DEFAULT) [address] [address] RBC Distribution 15.5 % High 10.8-14.9 [facility] Comment on above: Performed By: #### T YPEC #### [facility] (DEFAULT) [address] [address]21 WBC (Bld) [#/Vol] 8.27 10*3/uL Normal 3.99-11.19 [facility] Comment on above: Performed By: #### T YPEC #### [facility] (DEFAULT) [address] [place] [address] 16974 CHEM 7 (LYTES,BUN,CREA,GLUC) on 02-01-2021 Anion gap [Moles/Vol] 13 mmol/L Normal 7-17 [facility] Comment on above: Performed By: #### T YPEC #### [facility] (DEFAULT) [address] [address] Chloride [Moles/Vol] 106 mmol/L Normal 98-108 [facility] Comment on above: Performed By: #### T YPEC #### [facility] (DEFAULT) [address] [address] CO2 [Moles/Vol] 27 mmol/L Normal 22-30 [facility] Comment on above: Performed By: #### T YPEC #### [facility] (DEFAULT) [address] 0[address]27 Creatinine [Mass/Vol] 0.65 mg/dL Normal 0.50-1.20 [facility] Comment on above: Performed By: #### T YPEC #### [facility] (DEFAULT) [address] [address]257 EST GFR, >=60 Normal >=60 [facility] Comment on above: Performed By: #### T YPEC #### [facility] (DEFAULT) [address] [place] [address] 36892 EST GFR,Non >=60 Normal >=60 [facility] Comment on above: Performed By: #### T YPEC #### [facility] (DEFAULT) [address] [place] [address] 61164 Glucose [Mass/Vol] 121 mg/dL High 70-99 [facility] Comment on above: Performed By: #### T YPEC #### [facility] (DEFAULT) [address] [place] [address] 64635 Osmolality [Osmolality] 298 mosm/kg Normal 278-305 [facility] Comment on above: Performed By: #### T YPEC #### [facility] (DEFAULT) [address] [place] [address] 29328 Potassium [Moles/Vol] 3.5 mmol/L Normal 3.5-5.0 [facility] Comment on above: Performed By: #### T YPEC #### [facility] (DEFAULT) [address] [place] [address] 50676 Sodium [Moles/Vol] 142 mmol/L Normal 133-143 [facility] Comment on above: Performed By: #### T YPEC #### [facility] (DEFAULT) [address] [place] [address] 60477 Urea nitrogen [Mass/Vol] 15 mg/dL Normal 7-22 [facility] Comment on above: Performed By: #### T YPEC #### [facility] (DEFAULT) [address] [place] [address] 31100 Urea nitrogen/Creatinine [Mass ratio] 23 mg/mg Normal [facility] Comment on above: Performed By: #### T YPEC #### [facility] (DEFAULT) [address] [place] [address] 45831 CKon 02-01-2021 CK [Catalytic activity/Vol] 10 U/L Low 30-184 [facility] Comment on above: Order Comment: While on Propofol. Performed By: #### T YPEC #### [facility] (DEFAULT) [address] [place] [address] CHEST WITH CONTRASTon 05- 12-2021 CT CHEST WITH CONTRAST EXAM: CT CHEST WITH CONTRAST, 02/01/2021 18:13 PM COMPARISON: No Available Comparisons. CLINICAL INDICATIONS: follow-up mdiastinal abscess; RELEVANT CLINICAL HISTORY: TECHNIQUE: Following the administration of intravenous contrast, axial CT images were reconstructed from the volumetric data set, from the thoracic inlet through the adrenal glands. Coronal MIP images were also reconstructed. CONTRAST: iohexol (OMNIPAQUE) 350 MG/ML injection 1-171 mL; Route of Administration: Intravenous; Dose: 50 mL. FINDINGS: Lungs and Pleura: Patchy peribronchial consolidative opacities in the left lower lobe. There is no suspicious pulmonary nodule. Trace layering left pleural effusion. There is no pneumothorax. Tracheobronchial tree: The tracheostomy is seen in satisfactory position. Mediastinum/Vielka: There are no enlarged mediastinal or hilar lymph nodes. The visualized inferior aspect of the thyroid gland is unremarkable. The esophagus is decompressed and otherwise unremarkable. Axilla and Supraclavicular Region: No axillary or supraclavicular adenopathy. Cardiovascular: The heart and cardiac chambers are normal in size. There is no pericardial effusion. The thoracic aorta and the great vessels are within normal limits. The visualized central pulmonary arteries are unremarkable. Upper Abdomen: Please refer to the report for the dedicated CT examination of the abdomen performed on January 31, 2021 (1 day prior). Bones and Soft Tissue: There are mild degenerative changes of the thoracic spine. Posterior stabilization of the lower cervical and superior thoracic spine. There are no aggressive osseous lesions. The visualized subcutaneous tissues of the chest wall appear unremarkable. IMPRESSION: 1. Left lower lobe pneumonia. 2. Trace left pleural effusion, likely representing a parapneumonic effusion. 3. No suspicious lung nodule. 4. No mediastinal mass or fluid collection. Normal [facility] HEMOGLOBIN & HEMATOCRITon Hematocrit (Bld) [Volume fraction] 24.3 % Low 34.9-44.3 [facility] Comment on above: Performed By: #### G GANESH #### [facility] (DEFAULT) [address] [place] [address] Hemoglobin (Bld) [Mass/Vol] 7.6 g/dL Low 11.4-15.2 [facility] Comment on above: Performed By: #### G ASALL #### [facility] (DEFAULT) [address] [place] [address] 46180 IONIZED CALCIUM, INPATIENTon 02-01-2021 ICA 4.54 mg/dL Low 4.60-5.30 [facility] Comment on above: Performed By: #### T YPEC #### [facility] (DEFAULT) [address] [place] [address] 50262 MAGNESIUMon 02-01-2021 Magnesium [Mass/Vol] 2.2 mg/dL Normal 1.6-2.6 [facility] Comment on above: Performed By: #### T YPEC #### [facility] (DEFAULT) [address] [place] [address] 30028 PHOSPHATE, INORGANICon 02-01 Phosphorous 5.2 mg/dL High 2.2-4.6 [facility] Comment on above: Performed By: #### T YPEC #### [facility] (DEFAULT) [address] [place] [address] 48584 PT,INR,PTTon 02-01-2021 aPTT Coag (Bld) [Time] 38.1 s High 24.0-34.3 [facility] Comment on above: Performed By: #### T YPEC #### [facility] (DEFAULT) [address] [place] [address] 07825 INR Coag (PPP) [Relative time] 1.3 {INR} High 0.9-1.1 [facility] Comment on above: Performed By: #### T YPEC #### [facility] (DEFAULT) [address] [place] [address] 28157 PT Coag (PPP) [Time] 15.9 s High 11.9-14.2 [facility] Comment on above: Performed By: #### T YPEC #### [facility] (DEFAULT) [address] [place] [address] 99089 TRIGLYCERIDEon 02-01-2021 Triglyceride [Mass/Vol] 96 mg/dL Normal <150 [facility] Comment on above: Order Comment: While on Propofol. Result Comment: [<15 0 mg/dL: Desirable] [150-199 mg/dL: Borderline] [200-499 mg/dL: High] [>500 mg/dL: Very High] Performed By: #### T YPEC #### [facility] (DEFAULT) [address] [place] [address] 83132 TYPE AND SCREENon 02-01-2021 ABO/RH(D) TYPE Negative Normal [facility] Comment on above: Result Comment: @09/12 06:59 by JNN: Performed By: #### T YPEC #### [facility] (DEFAULT) [address] [place] [address] 14376 URINALYSIS REFLEX TO CULTURE PERFORMABLEon 02-01-2021 Appearance (U) Clear Normal Clear [facility] Comment on above: Performed By: #### U [id number] #### [facility] (DEFAULT) [address] [place] [address] 51776 Bacteria ABSENT Normal ABSENT [facility] Comment on above: Performed By: #### U [id number] #### [facility] (DEFAULT) [address] [place] [address] 06210 Blood Urine Large Abnormal Negative [facility] Comment on above: Performed By: #### U [id number] #### [facility] (DEFAULT) [address] [place] [address] 29274 Color (U) Yellow Normal Yellow [facility] Comment on above: Performed By: #### U [id number] #### [facility] (DEFAULT) [address] [address] Glucose Ql (U) Negative Normal Negative [facility] Comment on above: Performed By: #### U [id number] #### [facility] (DEFAULT) [address] [place] [address] 94820 Ketones Ql (U) Negative Normal Negative [facility] Comment on above: Performed By: #### U [id number] #### [facility] (DEFAULT) [address] [place] [address] 85573 Leukocyte esterase Test strip Ql (U) Moderate Abnormal Negative [facility] Comment on above: Performed By: #### U [id number] #### [facility] (DEFAULT) [address] [place] [address] 40989 Nitrites Urine Negative Normal Negative [facility] Comment on above: Performed By: #### U [id number] #### [facility] (DEFAULT) [address] [place] [address] 59863 pH (U) 6.5 [pH] Normal 5.0-7.0 [facility] Comment on above: Performed By: #### U [id number] #### [facility] (DEFAULT) [address] [place] [address] 17611 Protein Urine Trace Abnormal Negative [facility] Comment on above: Performed By: #### U [id number] #### [facility] (DEFAULT) [address] [place] [address] 24787 RBC Urine 6-9 Abnormal 0-2 [facility] Comment on above: Performed By: #### U [id number] #### [facility] (DEFAULT) [address] [place] [address] 70722 Specific [place] Urine 1.010 Normal 1.001-1.035 [facility] Comment on above: Performed By: #### U [id number] #### [facility] (DEFAULT) [address] [place] [address] 47408 Squamous/Epithelial Cells 6-8/hpf = 3+ Abnormal 1/hpf = 1+, 2-5/hpf = 2+, 0/hpf = 0+, ABSENT [facility] Comment on above: Performed By: #### U [id number] #### [facility] (DEFAULT) [address] [place] [address] 23970 Urobilinogen Urine 1.0 E.U./dL Normal 0.2-1.0 [facility] Comment on above: Performed By: #### U [id number] #### [facility] (DEFAULT) [address] [place] [address] 52299 WBC LM.HPF (Urine sed) [#/Area] /[HPF] Abnormal 0-5 [facility] Comment on above: Performed By: #### U [id number] #### [facility] (DEFAULT) [address] [place] [address] 97821 Yeast/Fungi PRESENT Abnormal ABSENT [facility] Comment on above: Performed By: #### U [id number] #### [facility] (DEFAULT) [address] [place] [address] 36365 URINE CULTUREon 02-01-2021 Bacteria identified Cx Nom (U) Normal [facility] Comment on above: Order Comment: Peguero top vacutainer. Urine must be to the fill line to process (4mls). If minimum volume, send urine in a yellow top vacutainer tube.Identification was performed on the MALDI-TOF mass spectrometer [employer] using the FDA, lab-developed, or RUO libraries. The performance characteristics of the lab-developed and RUO libraries were determined by [facility]. They have not been cleared or approved by the FDA. The laboratory is regulated under CLIA as qualified to perform high-complexity testing. This test is used for clinical purposes. It should not be regarded as investigational or for research. Result Comment: Grow 626CANDIDA TROPICALISCANDIDA TROPICALIS 10,000-50,000 CFU/mL Ban tropicalis Performed By: #### T YPEC #### [facility] (DEFAULT) [address] [place] [address] 69689 XR CHEST PORTABLEon 02-02-20 XR CHEST PORTABLE EXAM: XR CHEST RUSSEL BLE, 02/01/2021 16:41 PM COMPARISON: Compared to prior day. CLINICAL INDICATIONS: new trach, confirm no pneumothorax RELEVANT CLINICAL HISTORY: FINDINGS: (Adequate technique) Tubes, Lines, and life support hardware: The tracheostomy is seen in satisfactory position. Lungs: Hazy airspace opacities in the left lower lung zone. The lungs are otherwise clear. There are no pleural effusions. There is no pneumothorax. Cardiac, mediastinum, and hilum: The cardiomediastinal silhouette is within normal limits. ... Pulmonary Vessels: Normal, without PVH Bones, chest wall, and soft tissues: Posterior stabilization of the lower cervical spine. Impression: 1. New tracheostomy tube in appropriate position. 2. Hazy airspace opacities in the left lower lung. Normal [facility] BLOOD CULTUREon 01-31-2021 Bacteria identified Cx Nom (Unsp spec) NO GROWTH DAY 5 OF 5 Normal [facility] Comment on above: Order Comment: 2 Bot tles (1 Set - consists of 1 Aerobic (blue) bottle and 1 Anaerobic (purple) bottle) -1st Peripheral DrawFor syringe method draw:If able to obtain adequate sample (20 ml) inoculate anaerobic bottle firstIf inadequate sample obtained (less than 20 ml) inoculate aerobic bottle firstFor vacutainer method draw: Fill aerobic bottle first, then anaerobic Performed By: #### T YPEC #### [facility] (DEFAULT) [address] [address] Bacteria identified Cx Nom (Unsp spec) NO GROWTH DAY 5 OF 5 Normal [facility] Comment on above: Order Comment: 2 Bot tles (1 Set - consists of 1 Aerobic (blue) bottle and 1 Anaerobic (purple) bottle) -1st Peripheral DrawFor syringe method draw:If able to obtain adequate sample (20 ml) inoculate anaerobic bottle firstIf inadequate sample obtained (less than 20 ml) inoculate aerobic bottle firstFor vacutainer method draw: Fill aerobic bottle first, then anaerobic Performed By: #### T YPEC #### [facility] (DEFAULT) [address] [address] CBC,PLATELETSon 01-31-2021 Hematocrit (Bld) [Volume fraction] 28.1 % Low 34.9-44.3 [facility] Comment on above: Performed By: #### C HM7, MGO, IPB #### [facility] (DEFAULT) [address] [address] Hemoglobin (Bld) [Mass/Vol] 9.1 g/dL Low 11.4-15.2 [facility] Comment on above: Performed By: #### HUMBERTO REESE, IPB #### [facility] (DEFAULT) [address] [place] [address] 18343 MCV (RBC) [Entitic vol] 90.4 fL Normal 79.6-97.7 [facility] Comment on above: Performed By: #### Alice STEEL MGKiera, IPB #### [facility] [address] [place] [address] 32878 Mean Cell Hgb 29.3 pg Normal 25.9-33.9 [facility] Comment on above: Performed By: #### HUMBERTO REESE, IPB #### [facility] (DEFAULT) [address] [place] [address] 14993 Mean Cell Hgb Conc 32.4 g/dL Normal 31.4-35.9 [facility] Comment on above: Performed By: #### HUMBERTO REESE, IPB #### [facility] (DEFAULT) [address] [place] [address] 94997 Platelet mean volume (Bld) [Entitic vol] 8.9 fL Normal 8.5-12.2 [facility] Comment on above: Performed By: #### HUMBERTO REESE, IPB #### [facility] (DEFAULT) [address] [place] [address] 48837 Platelets (Bld) [#/Vol] 469 10*3/uL High 150-393 [facility] Comment on above: Performed By: #### Alice STEEL MGKiera, IPB #### [facility] (DEFAULT) [address] [place] [address] 84958 RBC (Bld) [#/Vol] 3.11 10*6/uL Low 3.91-5.04 [facility] Comment on above: Performed By: #### Alice STEEL MGO, IPB #### [facility] (DEFAULT) [address] [place] [address] 16634 RBC Distribution 15.0 % High 10.8-14.9 [facility] Comment on above: Performed By: #### MG MARY ANNO, IPB #### [facility] (DEFAULT) [address] [place] [address] 25871 WBC (Bld) [#/Vol] 12.98 10*3/uL High 3.99-11.19 [facility] Comment on above: Performed By: #### HUMBERTO REESE, IPB #### [facility] (DEFAULT) [address] [place] [address] 81507 CHEM 7 (LYTES,BUN,CREA,GLUC) on 01-31-2021 Anion gap [Moles/Vol] 13 mmol/L Normal 7-17 [facility] Comment on above: Performed By: #### HUMBERTO REESE, IPB #### [facility] (DEFAULT) [address] [place] [address] 83035 Chloride [Moles/Vol] 104 mmol/L Normal 98-108 [facility] Comment on above: Performed By: #### HUMBERTO REESE, IPB #### [facility] (DEFAULT) [address] [place] [address] 57762 CO2 [Moles/Vol] 25 mmol/L Normal 22-30 [facility] Comment on above: Performed By: #### Alice STEEL MGKiera, IPB #### [facility] (DEFAULT) [address] [place] [address] 92048 Creatinine [Mass/Vol] 0.61 mg/dL Normal 0.50-1.20 [facility] Comment on above: Performed By: #### Alice HM7 MGO, IPB #### [facility] (DEFAULT) [address] [place] [address] 59044 EST GFR, >=60 Normal >=60 [facility] Comment on above: Performed By: #### Alice HM7, MGO, IPB #### [facility] (DEFAULT) [address] [place] [address] 52606 EST GFR,Non >=60 Normal >=60 [facility] Comment on above: Performed By: #### Alice HM7, MGO, IPB #### [facility] (DEFAULT) [address] [place] [address] 80573 Glucose [Mass/Vol] 131 mg/dL High 70-99 [facility] Comment on above: Performed By: #### Alice HM7, MGO, IPB #### [facility] (DEFAULT) [address] [place] [address] 91333 Osmolality [Osmolality] 291 mosm/kg Normal 278-305 [facility] Comment on above: Performed By: #### Alice HM7, MGO, IPB #### [facility] (DEFAULT) [address] [place] [address] 62554 Potassium [Moles/Vol] 3.4 mmol/L Low 3.5-5.0 [facility] Comment on above: Performed By: #### Alice STEEL, MGO, IPB #### [facility] (DEFAULT) [address] [place] [address] 43609 Sodium [Moles/Vol] 139 mmol/L Normal 133-143 [facility] Comment on above: Performed By: #### Alice HM7, MGO, IPB #### [facility] (DEFAULT) [address] [place] [address] 67584 Urea nitrogen [Mass/Vol] 11 mg/dL Normal 7-22 [facility] Comment on above: Performed By: #### Alice HM7, MGO, IPB #### [facility] (DEFAULT) [address] [place] [address] 12809 Urea nitrogen/Creatinine [Mass ratio] 18 mg/mg Normal [facility] Comment on above: Performed By: #### Alice HM7, MGO, IPB #### [facility] (DEFAULT) [address] [place] [address] CT ABDOMEN WITHOUT CONTRASTo n 01-31-2021 CT ABDOMEN WITHOUT CONTRAST EXAM: CT ABDOMEN WITHOUT CONTRAST, 01/31/2021 10:43 AM COMPARISON: No prior studies available for comparison. CLINICAL INDICATIONS: pre op imaging for anatomy for PEG; TECHNIQUE: CT images of the abdomen were performed through the abdomen without the administration of intravenous contrast. PROTOCOL: Standard. CONTRAST: FINDINGS: Lung Bases: Trace left pleural effusion with associated left lower lobe consolidation may been the basis of atelectasis or infection. ABDOMEN Evaluation of the solid organs is limited without intravenous contrast. Liver: Liver is normal in size and CT density. No focal lesions. Biliary/Gallbladder: Status post cholecystectomy. The biliary tree is nondilated. Spleen: Spleen is normal in size and CT density. Pancreas: Pancreas is normal. There is no evidence of pancreatic mass or peripancreatic fluid. Adrenals: Adrenal glands are unremarkable. Kidneys: Kidneys are normal in size. There are no stones or hydronephrosis. Retroperitoneal/Vasculat ure: No retroperitoneal adenopathy is identified. Gastrointestinal/Mesente ry: Enteric tube tip within the stomach. Of note, multiple loops of small and large bowel are seen overlying the stomach. The bowel loops are non-dilated without wall thickening or mass. Bony Structures: Levocurvature of the lumbar spine. Multilevel degenerative disc disease. No aggressive osseous lesions. IMPRESSION: 1. Of note, multiple loops of small and large bowel are seen overlying the stomach. 2. Trace left pleural effusion with left lower lobe consolidation may been the basis of atelectasis or infection. Normal [facility] IONIZED CALCIUM, INPATIENTon 01-31-2021 ICA 4.59 mg/dL Low 4.60-5.30 [facility] Comment on above: Performed By: #### T YPEC #### [facility] (DEFAULT) [address] [place] [address] MAGNESIUMon 01-31-2021 Magnesium [Mass/Vol] 2.7 mg/dL High 1.6-2.6 [facility] Comment on above: Performed By: #### C HM7, MGO, IPB #### [facility] (DEFAULT) [address] [place] [address]305 PHOSPHATE, INORGANICon 01-31 Phosphorous 2.9 mg/dL Normal 2.2-4.6 [facility] Comment on above: Performed By: #### C HM7, MGO, IPB #### [facility] (DEFAULT) [address] [place] [address] 26024 VANCOMYCIN LEVEL, TROUGH (IN E DRUG LEVEL)on 01-31-2021 Vancomycin, Trough 16.4 mcg/mL Normal Therapeut ic Range: 10.0-20.0 mcg/mL [facility] Comment on above: Order Comment: Pleas e draw level at specified interval PRIOR to next dose. Performed By: #### T YPEC #### [facility] (DEFAULT) [address] [place] [address] 06081 Vancomycin, Trough 36.0 mcg/mL Critically high Therap eutic Range: 10.0-20.0 mcg/mL [facility] Comment on above: Order Comment: Draw one hour prior to 0700 dose. Hold for trough >20. Performed By: #### T YPEC #### [facility] (DEFAULT) [address] [place] [address]70 XR CHEST PORTABLEon 02-01-20 XR CHEST PORTABLE EXAM: XR CHEST RUSSEL BLE, 01/31/2021 03:53 AM CLINICAL INDICATIONS: rule out aspiration RELEVANT CLINICAL HISTORY: COMPARISON: Compared to the prior study dated January 29, 2021 FINDINGS: The endotracheal tube is slightly low at less than 2 cm above the dain. It could be retracted up to 2.[address] its tip at the level the clavicular heads. The nasogastric tube and a posterior spinal fusion hardware are again identified. No pneumothorax is seen. Aeration left lung base appears improved. Some volume loss remains there. The right lung appears clear. The heart size is normal. There is no pulmonary edema. IMPRESSION: 1. The endotracheal tube slightly low as described above. There is no pneumothorax. 2. Persistent but improved left basilar volume loss. No new opacities are seen. Normal [facility] CBC,PLATELETSon 01-30-2021 Hematocrit (Bld) [Volume fraction] 27.3 % Low 34.9-44.3 [facility] Comment on above: Performed By: #### HUMBERTO REESE, IPB #### [facility] (DEFAULT) [address] [place] [address] 66328 Hemoglobin (Bld) [Mass/Vol] 9.1 g/dL Low 11.4-15.2 [facility] Comment on above: Performed By: #### HUMBERTO REESE, IPB #### [facility] (DEFAULT) [address] [place] [address] 70640 MCV (RBC) [Entitic vol] 89.5 fL Normal 79.6-97.7 [facility] Comment on above: Performed By: #### HUMBERTO REESE, IPB #### [facility] (DEFAULT) [address] [place] [address] 54982 Mean Cell Hgb 29.8 pg Normal 25.9-33.9 [facility] Comment on above: Performed By: #### HUMBERTO REESE, IPB #### [facility] (DEFAULT) [address] [place] [address] 01478 Mean Cell Hgb Conc 33.3 g/dL Normal 31.4-35.9 [facility] Comment on above: Performed By: #### HUMBERTO REESE, IPB #### [facility] (DEFAULT) [address] [place] [address] 40848 Platelet mean volume (Bld) [Entitic vol] 8.9 fL Normal 8.5-12.2 [facility] Comment on above: Performed By: #### Alice STEEL MGO, IPB #### [facility] (DEFAULT) [address] [place] [address] 52323 Platelets (Bld) [#/Vol] 488 10*3/uL High 150-393 [facility] Comment on above: Performed By: #### HUMBERTO REESE, IPB #### [facility] (DEFAULT) [address] [place] [address] 51134 RBC (Bld) [#/Vol] 3.05 10*6/uL Low 3.91-5.04 [facility] Comment on above: Performed By: #### HUMBERTO REESE, IPB #### [facility] (DEFAULT) [address] [place] [address] 00450 RBC Distribution 14.6 % Normal 10.8-14.9 [facility] Comment on above: Performed By: #### HUMBERTO REESE, IPB #### [facility] (DEFAULT) [address] [place] [address] 67947 WBC (Bld) [#/Vol] 12.96 10*3/uL High 3.99-11.19 [facility] Comment on above: Performed By: #### HUMBERTO REESE, MIGUEB #### [facility] (DEFAULT) [address] [place] [address] 05324 Hematocrit (Bld) [Volume fraction] 28.9 % Low 34.9-44.3 [facility] Comment on above: Performed By: #### Rhonda ANDERSEN #### [facility] (DEFAULT) [address] [place] [address] 44076 Hemoglobin (Bld) [Mass/Vol] 9.5 g/dL Low 11.4-15.2 [facility] Comment on above: Performed By: #### Rhonda ANDERSEN #### [facility] (DEFAULT) [address] [place] [address] 01694 MCV (RBC) [Entitic vol] 90.0 fL Normal 79.6-97.7 [facility] Comment on above: Performed By: #### Rhonda ANDERSEN #### [facility] (DEFAULT) [address] [place] [address] 29229 Mean Cell Hgb 29.6 pg Normal 25.9-33.9 [facility] Comment on above: Performed By: ###Nikki ANDERSEN #### [facility] (DEFAULT) [address] [place] [address] 06769 Mean Cell Hgb Conc 32.9 g/dL Normal 31.4-35.9 [facility] Comment on above: Performed By: ###Nikki ANDERSEN #### [facility] (DEFAULT) [address] [address] Platelet mean volume (Bld) [Entitic vol] 8.8 fL Normal 8.5-12.2 [facility] Comment on above: Performed By: ###Nikki ANDERSEN #### [facility] (DEFAULT) [address] [address] Platelets (Bld) [#/Vol] 438 10*3/uL High 150-393 [facility] Comment on above: Performed By: ###Nikki ANDERSEN #### [facility] (DEFAULT) [address] [address] RBC (Bld) [#/Vol] 3.21 10*6/uL Low 3.91-5.04 [facility] Comment on above: Performed By: ###Nikki ANDERSEN #### [facility] (DEFAULT) [address] [address] RBC Distribution 14.0 % Normal 10.8-14.9 [facility] Comment on above: Performed By: ###Nikki ANDERSEN #### [facility] (DEFAULT) [address] [address] WBC (Bld) [#/Vol] 16.25 10*3/uL High 3.99-11.19 [facility] Comment on above: Performed By: ###Nikki ANDERSEN #### [facility] (DEFAULT) [address] [address] CHEM 7 (LYTES,BUN,CREA,GLUC) on 01-30-2021 Anion gap [Moles/Vol] 14 mmol/L Normal 7-17 [facility] Comment on above: Performed By: #### G EN #### [facility] (DEFAULT) [address] [place] [address] 39066 Chloride [Moles/Vol] 100 mmol/L Normal 98-108 [facility] Comment on above: Performed By: #### G EN #### [facility] (DEFAULT) [address] [place] [address] 95082 CO2 [Moles/Vol] 27 mmol/L Normal 22-30 [facility] Comment on above: Performed By: #### G EN #### [facility] (DEFAULT) [address] [place] [address] 66411 Creatinine [Mass/Vol] 0.30 mg/dL Low 0.50-1.20 [facility] Comment on above: Performed By: #### G EN #### [facility] (DEFAULT) [address] [place] [address] 86448 EST GFR, >=60 Normal >=60 [facility] Comment on above: Performed By: #### G EN #### [facility] (DEFAULT) [address] [place] [address] 82215 EST GFR,Non >=60 Normal >=60 [facility] Comment on above: Performed By: #### G EN #### [facility] (DEFAULT) [address] [place] [address] 61457 Glucose [Mass/Vol] 112 mg/dL High 70-99 [facility] Comment on above: Performed By: #### G EN #### [facility] (DEFAULT) [address] [place] [address] 24314 Osmolality [Osmolality] 287 mosm/kg Normal 278-305 [facility] Comment on above: Performed By: #### G EN #### [facility] (DEFAULT) [address] [place] [address] 64079 Potassium [Moles/Vol] 3.2 mmol/L Low 3.5-5.0 [facility] Comment on above: Performed By: #### G EN #### [facility] (DEFAULT) [address] [place] [address] 75677 Sodium [Moles/Vol] 138 mmol/L Normal 133-143 [facility] Comment on above: Performed By: #### G EN #### [facility] (DEFAULT) [address] [place] [address] 84163 Urea nitrogen [Mass/Vol] 10 mg/dL Normal 7-22 [facility] Comment on above: Performed By: #### G EN #### [facility] (DEFAULT) [address] [place] [address] 64814 Urea nitrogen/Creatinine [Mass ratio] 33 mg/mg Normal [facility] Comment on above: Performed By: #### G EN #### [facility] (DEFAULT) [address] [place] [address] 06212 CKon 01-30-2021 CK [Catalytic activity/Vol] 12 U/L Low 30-184 [facility] Comment on above: Order Comment: While on Propofol. Performed By: #### G EN #### [facility] (DEFAULT) [address] [place] [address] 18584 IONIZED CALCIUM, INPATIENTon 01-30-2021 ICA 4.13 mg/dL Low 4.60-5.30 [facility] Comment on above: Performed By: #### T YPEC #### [facility] (DEFAULT) [address] [place] [address] 62750 MAGNESIUMon 01-30-2021 Magnesium [Mass/Vol] 2.0 mg/dL Normal 1.6-2.6 [facility] Comment on above: Performed By: #### G EN #### [facility] (DEFAULT) [address] [place] [address] 83750 PHOSPHATE, INORGANICon 01-30 Phosphorous 3.1 mg/dL Normal 2.2-4.6 [facility] Comment on above: Performed By: #### G EN #### [facility] (DEFAULT) [address] [place] [address] TRIGLYCERIDEon 01-30-2021 Triglyceride [Mass/Vol] 98 mg/dL Normal <150 [facility] Comment on above: Order Comment: While on Propofol. Result Comment: [<15 0 mg/dL: Desirable] [150-199 mg/dL: Borderline] [200-499 mg/dL: High] [>500 mg/dL: Very High] Performed By: #### G EN #### [facility] (DEFAULT) [address] [place] [address] XR ABDOMEN 1 VIEW PORTABLEon 01-30-2021 XR ABDOMEN 1 VIEW PORTABLE EXAM: XR ABDOMEN 1 VIEW PORTABLE, 01/30/2021 18:50 PM COMPARISON: January 29, 2021 CLINICAL INDICATIONS: f/u ileus FINDINGS: Tubes: Enteric tube with tip and side-port in the stomach, appropriately positioned. Schmitt catheter projects over the pelvis. Vascular catheter projects over the left pelvis. Bowel gas pattern is nonobstructive. Mild scattered formed stool within the colon. Bowel gas extends to the rectum. Osseous structures are unchanged. IMPRESSION: No evidence of bowel obstruction. Normal [facility] XR ABDOMEN 1 VIEW PORTABLE EXAM: XR ABDOMEN 1 VIEW PORTABLE, 01/30/2021 04:05 AM COMPARISON: January 29, 2021 CLINICAL INDICATIONS: ileus FINDINGS: Tubes: Nasogastric tube tip and side port are in the stomach. Bladder catheter in expected position. Left common femoral central venous catheter tip overlies the left pelvis, in the expected location of left external iliac vein. No definite pneumoperitoneum. Decreased bowel gas and stool. Minimal residual gaseous distention of the distal transverse colon and splenic flexure. IMPRESSION: Resolving ileus. Normal [facility] CBC,PLATELETSon 01-29-2021 Hematocrit (Bld) [Volume fraction] 27.1 % Low 34.9-44.3 [facility] Comment on above: Performed By: #### G ASALL #### [facility] [address] [place] [address] 37368 Hemoglobin (Bld) [Mass/Vol] 9.1 g/dL Low 11.4-15.2 [facility] Comment on above: Performed By: #### Rhonda ASALL #### [facility] (DEFAULT) [address] [place] [address] 79269 MCV (RBC) [Entitic vol] 90.0 fL Normal 79.6-97.7 [facility] Comment on above: Performed By: #### Rhonda ASABINTA #### [facility] (DEFAULT) [address] [place] [address] 85405 Mean Cell Hgb 30.2 pg Normal 25.9-33.9 [facility] Comment on above: Performed By: #### Rhonda ANDERSEN #### [facility] (DEFAULT) [address] [place] [address] 66937 Mean Cell Hgb Conc 33.6 g/dL Normal 31.4-35.9 [facility] Comment on above: Performed By: #### Rhonda ANDERSEN #### [facility] (DEFAULT) [address] [place] [address] 79772 Platelet mean volume (Bld) [Entitic vol] 8.8 fL Normal 8.5-12.2 [facility] Comment on above: Performed By: #### Rhonda ASABINTA #### [facility] (DEFAULT) [address] [place] [address] 67292 Platelets (Bld) [#/Vol] 362 10*3/uL Normal 150-393 [facility] Comment on above: Performed By: #### Rhonda ASABINTA #### [facility] (DEFAULT) [address] [place] [address] 55982 RBC (Bld) [#/Vol] 3.01 10*6/uL Low 3.91-5.04 [facility] Comment on above: Performed By: #### Rhonda ASABINTA #### [facility] (DEFAULT) [address] [place] [address] 12169 RBC Distribution 13.9 % Normal 10.8-14.9 [facility] Comment on above: Performed By: #### Rhonda ANDERSEN #### [facility] (DEFAULT) [address] [place] [address] 07002 WBC (Bld) [#/Vol] 14.13 10*3/uL High 3.99-11.19 [facility] Comment on above: Performed By: #### Rhonda ANDERSEN #### [facility] (DEFAULT) [address] [place] [address] 27336 CHEM 7 (LYTES,BUN,CREA,GLUC) on 01-29-2021 Anion gap [Moles/Vol] 9 mmol/L Normal 7-17 [facility] Comment on above: Performed By: #### X M #### [facility] (DEFAULT) [address] [place] [address] 28240 Chloride [Moles/Vol] 100 mmol/L Normal 98-108 [facility] Comment on above: Performed By: #### X M #### [facility] (DEFAULT) [address] [place] [address] 36334 CO2 [Moles/Vol] 29 mmol/L Normal 22-30 [facility] Comment on above: Performed By: #### X M #### [facility] (DEFAULT) [address] [place] [address] 83248 Creatinine [Mass/Vol] 0.29 mg/dL Low 0.50-1.20 [facility] Comment on above: Performed By: #### X M #### [facility] (DEFAULT) [address] [place] [address] 09071 EST GFR, >=60 Normal >=60 [facility] Comment on above: Performed By: #### X M #### [facility] (DEFAULT) [address] [place] [address] 47498 EST GFR,Non >=60 Normal >=60 [facility] Comment on above: Performed By: #### X M #### [facility] (DEFAULT) [address] [place] [address] 81712 Glucose [Mass/Vol] 117 mg/dL High 70-99 [facility] Comment on above: Performed By: #### X M #### [facility] (DEFAULT) [address] [place] [address] 65394 Osmolality [Osmolality] 281 mosm/kg Normal 278-305 [facility] Comment on above: Performed By: #### X M #### [facility] (DEFAULT) [address] [place] [address] 18763 Potassium [Moles/Vol] 3.2 mmol/L Low 3.5-5.0 [facility] Comment on above: Performed By: #### X M #### [facility] (DEFAULT) [address] [place] [address] 42800 Sodium [Moles/Vol] 135 mmol/L Normal 133-143 [facility] Comment on above: Performed By: #### X M #### [facility] (DEFAULT) [address] [place] [address] 83996 Urea nitrogen [Mass/Vol] 7 mg/dL Normal 7-22 [facility] Comment on above: Performed By: #### X M #### [facility] (DEFAULT) [address] [place] [address] 04681 Urea nitrogen/Creatinine [Mass ratio] 24 mg/mg Normal [facility] Comment on above: Performed By: #### X M #### [facility] (DEFAULT) [address] [place] [address] 77651 IONIZED CALCIUM, INPATIENTon 01-29-2021 ICA 4.22 mg/dL Low 4.60-5.30 [facility] Comment on above: Performed By: #### G ASALL #### [facility] (DEFAULT) [address] [place] [address] 58760 MAGNESIUMon 01-29-2021 Magnesium [Mass/Vol] 1.8 mg/dL Normal 1.6-2.6 [facility] Comment on above: Performed By: #### X M #### [facility] (DEFAULT) [address] [place] [address] 91452 PHOSPHATE, INORGANICon 01-29 Phosphorous 2.8 mg/dL Normal 2.2-4.6 [facility] Comment on above: Performed By: #### X M #### [facility] (DEFAULT) [address] [place] [address] XR ABDOMEN 1 VIEW PORTABLEon 01-29-2021 XR ABDOMEN 1 VIEW PORTABLE EXAM: XR ABDOMEN 1 VIEW PORTABLE, 01/29/2021 10:46 AM COMPARISON: Compared to prior study dated January 28, 2021 CLINICAL INDICATIONS: ileus FINDINGS/IMPRESSION: Tubes: NG tube is seen within the stomach. A Schmitt catheter is demonstrated. A right upper quadrant pain is demonstrated. No definite pneumoperitoneum or pneumatosis of the bowel wall. Persistent gaseous distention of both small and large bowel is January 28, 2021. Right upper quadrant surgical clips are noted. Normal [facility] XR CHEST PORTABLEon 01-30-20 XR CHEST PORTABLE EXAM: XR CHEST RUSSEL BLE, 01/29/2021 21:17 PM COMPARISON: January 29, 2021 CLINICAL INDICATIONS: Assess ETT RELEVANT CLINICAL HISTORY: FINDINGS: (Adequate technique) Implanted Devices: Endotracheal tube has been pulled back since prior exam now about 2.8 cm from the dain. Enteric tube passes beyond [id number]. Thorax: Hazy opacity left lower lung slightly improved from prior. No pneumothorax. Prominent interstitium. IMPRESSION: 1. Endotracheal tube projects 2.9 cm from the dain in improved positioning. 2. Persistent left lower lung opacities, though slightly improved from prior. Normal [facility] XR CHEST PORTABLE EXAM: XR CHEST RUSSEL BLE, 01/29/2021 19:33 PM COMPARISON: Compared to earlier exam on the same day. CLINICAL INDICATIONS: s/p intubation RELEVANT CLINICAL HISTORY: FINDINGS: (Adequate technique) ET tube is 7 mm above the dain. Interval progression of hazy opacities in the left base. Small left effusion. Interval widening of the vascular pedicle. Perihilar hazy opacities. IMPRESSION: ET tube is 7 mm above the dain. Interval widening of vascular pedicle and perihilar hazy opacities which can be seen with developing edema. There is a small left effusion and worsening atelectasis or airspace disease in the left base. Normal [facility] XR CHEST PORTABLE EXAM: XR CHEST RUSSEL BLE, 01/29/2021 16:04 PM COMPARISON: January 25, 2021 CLINICAL INDICATIONS: hypoxia RELEVANT CLINICAL HISTORY: FINDINGS: (Adequate technique) Implanted Devices: Postop changes in the neck with skin mirtha in place. The esophagogastric tube terminates beneath the diaphragm, outside the [id number]. Thorax: Improved aeration in volume in the left hemithorax with some persistent dense atelectasis or airspace disease at the base. Right lung is clear. Stable cardiomediastinal silhouette. No interval bone findings. IMPRESSION: Improved left-sided lung volume and aeration with some persistent dense left basilar atelectasis or consolidation. Normal [facility] ACID FAST CULTUREon 01-29-20 21 Bacteria identified Cx Nom (Unsp spec) NO GROWTH DAY 42 OF 42 Normal [facility] Comment on above: Order Comment: Less than 1 ml of specimen received for AFB culture. Suboptimal specimen volume may affect culture results. Performed By: #### T YPEC #### [facility] (DEFAULT) [address] [address] Fluorochrome Stain No acid Fast Bacillu s Seen Normal [facility] Comment on above: Order Comment: Less than 1 ml of specimen received for AFB culture. Suboptimal specimen volume may affect culture results. Performed By: #### T YPEC #### [facility] (DEFAULT) [address] [address] ANAEROBE CULTUREon 1 Bacteria identified Cx Nom (Unsp spec) No anaerobic growth Normal [facility] Comment on above: Order Comment: Colle ct fluids or tissues in a sterile container. If collecting swabs, must be collected in a Port-A-Cul tube. Performed By: #### T YPEC #### [facility] (DEFAULT) [address] [address] BACTERIAL CULTURE AND DIRECT SMEAR, LESION, TISSUE, DEVICEon 01-28-2021 Clindamycin [Susceptibility] 0.25 ug/mL Invalid Interpretation Code [facility] Comment on above: Performed By: #### T YPEC #### [facility] (DEFAULT) [address] [address] Oxacillin [Susceptibility] by Minimum inhibitory concentration (CHLOE) >=[address] [facility] Comment on above: Result Comment: Cont act Isolation is NOT required for inpatients with Methicillin Resistant Staphylococcus aureus (MRSA), use standard precautions and follow the isolation policy in regards to any additional need for isolation (eg. open draining wounds). Performed By: #### T YPEC #### [facility] (DEFAULT) [address] [address] Rifampin [Susceptibility] by Minimum inhibitory concentration (CHLOE) <=0.[address] [facility] Comment on above: Result Comment: Rifa mpin must never be used as monotherapy for Staphylococcal infection because of the rapid emergence of resistance. Performed By: #### T YPEC #### [facility] (DEFAULT) [address] [address] Tetracycline [Susceptibility] >=[address] [facility] Comment on above: Result Comment: Doxy cycline/minocycline S. aureus susceptibility can be inferred from the tetracycline CHLOE when tetracycline susceptible Performed By: #### T YPEC #### [facility] (DEFAULT) [address] [address] Trimethoprim+Sulfamet hoxazole [Susceptibility] <=[address] [facility] Comment on above: Performed By: #### T YPEC #### [facility] (DEFAULT) [address] [address] Vancomycin [Susceptibility] 1 ug/mL Invalid Interpretation Code [facility] Comment on above: Performed By: #### T YPEC #### [facility] (DEFAULT) [address] [place] [address] 48560 BLOOD GAS ARTERIAL PLUS ALL (LYTES,GLUC LACT,HH)on 01-28-2021 Base Excess 4.3 mmol/L High -3.0-3.0 [facility] Comment on above: Performed By: #### Rhonda ANDERSEN #### [facility] (DEFAULT) [address] [place] [address] 79832 [id number] Not Available Normal [facility] Comment on above: Performed By: #### Rhonda ANDERSEN #### [facility] (DEFAULT) [address] [place] [address] 18175 Glucose [Mass/Vol] 121 mg/dL High 70-99 [facility] Comment on above: Performed By: ###Nikki ANDERSEN #### [facility] (DEFAULT) [address] [place] [address] 39861 HCO3 (Bld) [Moles/Vol] 30 mmol/L High 22-26 [facility] Comment on above: Performed By: ###Nikki ANDERSEN #### [facility] [address] [place] [address] 75479 Hematocrit (Bld) [Volume fraction] 31.3 % Low 34.9-44.3 [facility] Comment on above: Performed By: ###Nikki ANDERSEN #### [facility] (DEFAULT) [address] [place] [address] 06019 Hemoglobin (Bld) [Mass/Vol] 10.1 g/dL Low 11.4-15.2 [facility] Comment on above: Performed By: ###Nikki ANDERSEN #### [facility] (DEFAULT) [address] [place] [address] 51735 Oxygen saturation in Blood 99 % High 94-98 [facility] Comment on above: Performed By: #### Rhonda ANDERSEN #### [facility] [address] [place] [address] 07642 pCO2 53 mm Hg High 32-48 [facility] Comment on above: Performed By: #### Rhonda ANDERSEN #### [facility] (DEFAULT) [address] [place] [address] 98857 pH (Bld) 7.37 [pH] Normal 7.35-7.45 [facility] Comment on above: Performed By: #### Rhonda ANDERSEN #### [facility] (DEFAULT) [address] [place] [address] 09255 pO2 139 mm Hg High 83-108 [facility] Comment on above: Performed By: #### Rhonda ANDERSEN #### [facility] (DEFAULT) [address] [place] [address] 28286 Potassium [Moles/Vol] 3.8 mmol/L Normal 3.5-5.0 [facility] Comment on above: Performed By: ###Nikki ANDERSEN #### [facility] (DEFAULT) [address] [place] [address] 04127 Sodium [Moles/Vol] 129 mmol/L Low 133-143 [facility] Comment on above: Performed By: #### Rhonda ANDERSEN #### [facility] (DEFAULT) [address] [place] [address] 08004 Whole Blood ICA 4.71 mg/dL Normal 4.60-5.30 [facility] Comment on above: Performed By: #### Rhonda ANDERSEN #### [facility] (DEFAULT) [address] [place] [address] 93091 Whole Blood Lactate 1.1 mmol/L Normal 0.5-1.6 [facility] Comment on above: Performed By: #### Rhonda ANDERSEN #### [facility] (DEFAULT) [address] [place] [address] 67694 CBC,PLATELETSon 01-28-2021 Hematocrit (Bld) [Volume fraction] 28.3 % Low 34.9-44.3 [facility] Comment on above: Performed By: #### G EN #### [facility] (DEFAULT) [address] [place] [address] 02941 Hemoglobin (Bld) [Mass/Vol] 9.4 g/dL Low 11.4-15.2 [facility] Comment on above: Performed By: #### G EN #### [facility] (DEFAULT) [address] [place] [address] 02311 MCV (RBC) [Entitic vol] 91.0 fL Normal 79.6-97.7 [facility] Comment on above: Performed By: #### G EN #### [facility] (DEFAULT) [address] [place] [address] 74461 Mean Cell Hgb 30.2 pg Normal 25.9-33.9 [facility] Comment on above: Performed By: #### G EN #### [facility] (DEFAULT) [address] [place] [address] 69582 Mean Cell Hgb Conc 33.2 g/dL Normal 31.4-35.9 [facility] Comment on above: Performed By: #### G EN #### [facility] (DEFAULT) [address] [place] [address] 18418 Platelet mean volume (Bld) [Entitic vol] 8.8 fL Normal 8.5-12.2 [facility] Comment on above: Performed By: #### G EN #### [facility] (DEFAULT) [address] [place] [address] 09673 Platelets (Bld) [#/Vol] 331 10*3/uL Normal 150-393 [facility] Comment on above: Performed By: #### G EN #### [facility] (DEFAULT) [address] [place] [address] 73167 RBC (Bld) [#/Vol] 3.11 10*6/uL Low 3.91-5.04 [facility] Comment on above: Performed By: #### G EN #### [facility] (DEFAULT) [address] [place] [address] 77117 RBC Distribution 14.4 % Normal 10.8-14.9 [facility] Comment on above: Performed By: #### G EN #### [facility] (DEFAULT) [address] [place] [address] 53424 WBC (Bld) [#/Vol] 15.52 10*3/uL High 3.99-11.19 [facility] Comment on above: Performed By: #### G EN #### [facility] (DEFAULT) [address] [place] [address] 30480 CHEM 7 (LYTES,BUN,CREA,GLUC) on 01-28-2021 Anion gap [Moles/Vol] 9 mmol/L Normal 7-17 [facility] Comment on above: Performed By: #### Alice HM7, MGO, IPB #### [facility] (DEFAULT) [address] [place] [address] 45984 Chloride [Moles/Vol] 97 mmol/L Low 98-108 [facility] Comment on above: Performed By: #### Alice HM7, MGO, IPB #### [facility] (DEFAULT) [address] [place] [address] 12285 CO2 [Moles/Vol] 29 mmol/L Normal 22-30 [facility] Comment on above: Performed By: #### Alice HM7, MGO, IPB #### [facility] (DEFAULT) [address] [place] [address] 94334 Creatinine [Mass/Vol] 0.30 mg/dL Low 0.50-1.20 [facility] Comment on above: Performed By: #### Alice HM7, MGO, IPB #### [facility] (DEFAULT) [address] [place] [address] 60384 EST GFR, >=60 Normal >=60 [facility] Comment on above: Performed By: #### Alice HM7, MGO, IPB #### [facility] (DEFAULT) [address] [place] [address] 82896 EST GFR,Non >=60 Normal >=60 [facility] Comment on above: Performed By: #### Alice HM7, MGO, IPB #### [facility] (DEFAULT) [address] [place] [address] 95630 Glucose [Mass/Vol] 132 mg/dL High 70-99 [facility] Comment on above: Performed By: #### C HM7, MGO, IPB #### [facility] (DEFAULT) [address] [place] [address] 67343 Osmolality [Osmolality] 275 mosm/kg Low 278-305 [facility] Comment on above: Performed By: #### Alice HM7, MGO, IPB #### [facility] (DEFAULT) [address] [place] [address] 05802 Potassium [Moles/Vol] 3.8 mmol/L Normal 3.5-5.0 [facility] Comment on above: Performed By: #### Alice HM7, MGO, IPB #### [facility] (DEFAULT) [address] [place] [address] 96554 Sodium [Moles/Vol] 131 mmol/L Low 133-143 [facility] Comment on above: Performed By: #### Alice HM7, MGO, IPB #### [facility] (DEFAULT) [address] [place] [address] 80130 Urea nitrogen [Mass/Vol] 6 mg/dL Low 7-22 [facility] Comment on above: Performed By: #### Alice HM7, MGO, IPB #### [facility] (DEFAULT) [address] [place] [address] 56320 Urea nitrogen/Creatinine [Mass ratio] 20 mg/mg Normal [facility] Comment on above: Performed By: #### C HM7, MGO, IPB #### [facility] (DEFAULT) [address] [place] [address] 05294 FUNGUS CULTUREon 01-28-2021 Bacteria identified Cx Nom (Unsp spec) NO GROWTH DAY 28 OF 28 Normal [facility] Comment on above: Performed By: #### T YPEC #### [facility] (DEFAULT) [address] [place] [address] 45104 IONIZED CALCIUM, INPATIENTon 01-28-2021 ICA 4.46 mg/dL Low 4.60-5.30 [facility] Comment on above: Performed By: #### C HM7, MGO, IPB #### [facility] (DEFAULT) [address] [place] [address] 21907 MAGNESIUMon 01-28-2021 Magnesium [Mass/Vol] 1.7 mg/dL Normal 1.6-2.6 [facility] Comment on above: Performed By: #### C HM7, MGO, IPB #### [facility] (DEFAULT) [address] [place] [address] 86177 PHOSPHATE, INORGANICon 01-28 Phosphorous 3.2 mg/dL Normal 2.2-4.6 [facility] Comment on above: Performed By: #### C HM7, MGO, IPB #### [facility] (DEFAULT) [address] [place] [address] 96669 TYPE AND SCREENon 01-28-2021 ABO/RH(D) TYPE Negative Normal [facility] Comment on above: Result Comment: @05/13 09:38 by JB1: Performed By: #### X M #### [facility] (DEFAULT) [address] [place] [address] 57867 XR ABDOMEN 1 VIEW PORTABLEon 01-28-2021 XR ABDOMEN 1 VIEW PORTABLE EXAM: XR ABDOMEN 1 VIEW PORTABLE, 01/28/2021 16:38 PM COMPARISON: Abdominal radiograph dated January 28, 2021. CLINICAL INDICATIONS: NG placement, please also shoot lower to see if ileus FINDINGS: Tubes: Enteric tube with distal tip and sidehole in the anatomical region of the gastric body. Pelvis not included. No definite pneumoperitoneum. Mild gaseous distention of the stomach. Redemonstration of dilated bowel loops and prominent stool burden in the partially visualized right colon. No organomegaly or mass effect. Surgical clips in the right lower quadrant. Visualized osseous structures with degenerative changes in mild levocurvature of the lumbar spine IMPRESSION: 1. Enteric tube with distal tip and sidehole in the anatomical region of the gastric body. 2. Significant gaseous distention/dilatation of bowel loops, could represent ileus versus bowel obstruction. Normal [facility] XR ABDOMEN 1 VIEW PORTABLE EXAM: XR ABDOMEN 1 VIEW PORTABLE, 01/28/2021 14:58 PM COMPARISON: Abdominal radiograph dated January 19, 2021. CLINICAL INDICATIONS: Post-Pyloric Tube Placement Confirmation FINDINGS: Tubes: Enteric tube with distal tip in the proximal stomach and sidehole likely at the gastroesophageal junction. Pelvis not included. No definite pneumoperitoneum. . Mild gaseous distention of the stomach. Partial visualization of dilated bowel loops in the central abdomen and prominent stool burden in the partially visualized right colon. No organomegaly or mass effect. Surgical clips in the right lower quadrant. Visualized osseous structures with degenerative changes in mild levocurvature of the lumbar spine IMPRESSION: 1. Enteric tube with distal tip in the proximal stomach and sidehole likely at the gastroesophageal junction. Further advancement recommended. 2. Significant gaseous distention/dilatation of partially visualized bowel loops in the central abdomen, could represent ileus versus bowel obstruction. Normal [facility] CBC,PLATELETSon 01-27-2021 Hematocrit (Bld) [Volume fraction] 30.3 % Low 34.9-44.3 [facility] Comment on above: Performed By: #### T YPEC #### [facility] (DEFAULT) [address] [address] Hemoglobin (Bld) [Mass/Vol] 10.1 g/dL Low 11.4-15.2 [facility] Comment on above: Performed By: #### T YPEC #### [facility] (DEFAULT) [address] [address] MCV (RBC) [Entitic vol] 91.8 fL Normal 79.6-97.7 [facility] Comment on above: Performed By: #### T YPEC #### [facility] (DEFAULT) [address] [address] Mean Cell Hgb 30.6 pg Normal 25.9-33.9 [facility] Comment on above: Performed By: #### T YPEC #### [facility] (DEFAULT) [address] [address] Mean Cell Hgb Conc 33.3 g/dL Normal 31.4-35.9 [facility] Comment on above: Performed By: #### T YPEC #### [facility] (DEFAULT) [address] [address] Platelet mean volume (Bld) [Entitic vol] 8.8 fL Normal 8.5-12.2 [facility] Comment on above: Performed By: #### T YPEC #### [facility] (DEFAULT) [address] [address] Platelets (Bld) [#/Vol] 347 10*3/uL Normal 150-393 [facility] Comment on above: Performed By: #### T YPEC #### [facility] (DEFAULT) [address] [address] RBC (Bld) [#/Vol] 3.30 10*6/uL Low 3.91-5.04 [facility] Comment on above: Performed By: #### T YPEC #### [facility] (DEFAULT) [address] [address] RBC Distribution 14.3 % Normal 10.8-14.9 [facility] Comment on above: Performed By: #### T YPEC #### [facility] (DEFAULT) [address] [address] WBC (Bld) [#/Vol] 11.84 10*3/uL High 3.99-11.19 [facility] Comment on above: Performed By: #### T YPEC #### [facility] (DEFAULT) [address] [place] [address] 31549 CHEM 7 (LYTES,BUN,CREA,GLUC) on 01-27-2021 Anion gap [Moles/Vol] 12 mmol/L Normal 7-17 [facility] Comment on above: Performed By: #### G EN #### [facility] (DEFAULT) [address] [place] [address] 53916 Chloride [Moles/Vol] 95 mmol/L Low 98-108 [facility] Comment on above: Performed By: #### G EN #### [facility] (DEFAULT) [address] [place] [address] 52286 CO2 [Moles/Vol] 26 mmol/L Normal 22-30 [facility] Comment on above: Performed By: #### G EN #### [facility] (DEFAULT) [address] [place] [address] 19825 Creatinine [Mass/Vol] 0.34 mg/dL Low 0.50-1.20 [facility] Comment on above: Performed By: #### G EN #### [facility] (DEFAULT) [address] [place] [address] 24237 EST GFR, >=60 Normal >=60 [facility] Comment on above: Performed By: #### G EN #### [facility] (DEFAULT) [address] [place] [address] 04992 EST GFR,Non >=60 Normal >=60 [facility] Comment on above: Performed By: #### G EN #### [facility] (DEFAULT) [address] [address] Glucose [Mass/Vol] 145 mg/dL High 70-99 [facility] Comment on above: Performed By: #### G EN #### [facility] (DEFAULT) [address] [place] [address] 78615 Osmolality [Osmolality] 272 mosm/kg Low 278-305 [facility] Comment on above: Performed By: #### G EN #### [facility] (DEFAULT) [address] [place] [address] 34363 Potassium [Moles/Vol] 3.8 mmol/L Normal 3.5-5.0 [facility] Comment on above: Performed By: #### G EN #### [facility] (DEFAULT) [address] [place] [address] 92325 Sodium [Moles/Vol] 129 mmol/L Low 133-143 [facility] Comment on above: Performed By: #### G EN #### [facility] (DEFAULT) [address] [place] [address] 41618 Urea nitrogen [Mass/Vol] 5 mg/dL Low 7-22 [facility] Comment on above: Performed By: #### G EN #### [facility] (DEFAULT) [address] [place] [address] 95196 Urea nitrogen/Creatinine [Mass ratio] 15 mg/mg Normal [facility] Comment on above: Performed By: #### G EN #### [facility] (DEFAULT) [address] [place] [address] 22384 MRI SPINE CERVICAL WITH AND WITHOUT CONTRASTon 01-27-2021 MRI SPINE CERVICAL WITH AND WITHOUT CONTRAST EXAM: MRI SPINE CERVICAL WITH AND WITHOUT CONTRAST, 01/27/2021 17:28 PM COMPARISON: MRI cervical spine January 18, 2021 CLINICAL INDICATIONS: 45 years Female concern for epidural abscess, loss of upper BLE movement; TECHNIQUE: A series of sagittal and axial multisequence images of the cervical spine were obtained both before and after intravenous administration of gadolinium-based contrast using standard protocol. Study was performed at 1.5 Madalyn. CONTRAST: gadoterate Meglumine (DOTAREM) 5 MMOL/10ML injection 3-60 mL; Route of Administration: Intravenous; Dose: 16 mL. FINDINGS: There is motion artifact on multiple sequences. There are previous postoperative changes of posterior instrumented surgical fusion of C2-T2 and posterior laminectomies of C3-C6 levels. This fluid within the posterior paraspinal soft tissues. There is a rim-enhancing the ventral epidural collection relates to an epidural abscess extending from the foramen magnum to the T3-T4 level. This measures approximately 0.7 x 1.6 x 12 cm (AP by TR by CC). This is thickest at the C2 and C3 levels and contribute to severe central canal stenosis and severe cord compression extending from the foramen magnum to the C4 level. There is abnormal spinal cord edema extending from the inferior medial to the C7 level related to cord edema. There is extensive prevertebral soft tissue edema and enhancement related to prevertebral phlegmon. There is a soft tissue abscess within the prevertebral left enterocele musculature at the C5-C7 levels measuring the 1 x 1.8 x 3.1 cm. There is abnormal STIR hyperintensity and marrow edema with mild enhancement involving the C5, C6, C7 and T1 levels. There is intervertebral disc fluid at C5-C6 level without associated enhancement. There is leptomeningeal enhancement along the surface of the brainstem. There is also enhancement along the surface of the cervical spinal cord. There is grade 1 anterolisthesis of C3 on C4 measuring 3 mm and minimal retrolisthesis of C4 on C5 measuring 2 mm. There is no evidence of acute compression fracture. There are multilevel degenerative disc changes with diffuse desiccation. IMPRESSION: 1. Large ventral epidural abscess extending from the foramen magnum to the of T3-T4 level measuring up to 7 mm in thickness. The ventral epidural abscess status of the C2 and C3 levels. This results in severe canal stenosis and cervical spinal cord compression at the C2 through the C4 levels. Abnormal increased cord signal edema extending from the inferior brainstem medulla to the C7-T1 level. Extensive prevertebral phlegmonous changes with a soft tissue abscess in the left anterior scalene musculature at the C5-C7 levels.. 2. Marrow edema and enhancement involving C5, C6, C7 and T1 levels, may relate to osteomyelitis. Intervertebral disc with at C5-C6 without associated enhancement, may relate to early discitis and/or reactive changes. 3. Leptomeningeal enhancement along the surface of the brainstem and surface of the cervical spinal cord, suspicious for meningitis. Normal [facility] MRI SPINE LUMBAR WITH AND WI THOUT CONTRASTon 01-27-2021 MRI SPINE LUMBAR WITH AND WITHOUT CONTRAST EXAM: MRI SPINE LUMBAR WITH AND WITHOUT CONTRAST, 01/27/2021 17:28 PM COMPARISON: MRI lumbar spine January 18, 2021 CLINICAL INDICATIONS: 45 years Female concern for epidural abscess, loss of upper BLE movement; TECHNIQUE: A series of sagittal and axial multisequence images of the lumbar spine were obtained both before and after intravenous administration of gadolinium-based contrast using standard protocol. Study was performed at 1.5 Madalyn. CONTRAST: gadoterate Meglumine (DOTAREM) 5 MMOL/10ML injection 3-60 mL; Route of Administration: Intravenous; Dose: 16 mL. FINDINGS: There is leftward curvature of the lumbar spine. There is superior endplate compression fracture of right L2 vertebral body which appears stable to prior examination. There is stable endplate marrow edema and enhancement at the right L3-L4 levels. There is small amount of fluid within the right L3-L4 intervertebral disc space without significant enhancement, which appears new from prior examination. No surrounding inflammatory changes. There is enhancement involving the left L3-L4 facet without significant surrounding soft tissue and inflammatory changes. Paraspinal soft tissues are within normal limits. There multilevel degenerative disc changes. Conus terminates normally at the L1-L2 level. There is enhancement along multiple cauda equina nerve roots. By levels: L1-L2: No disc herniation or central canal stenosis. Facet arthropathy without foraminal narrowing. L2-L3: Disc bulge, facet arthropathy and ligamentum flavum thickening without central canal stenosis. There is mild bilateral foraminal narrowing. L3-L4: Large right lateral osteophyte, disc bulge facet arthropathy and ligamentum flavum thickening without central canal stenosis. There is moderate narrowing of the right lateral recess. There is moderate to severe right and mild left foraminal narrowing L4-L5: Disc bulge, advanced facet arthropathy without significant central canal stenosis. Moderate right and severe left foraminal narrowing. L5-S1: Mild disc bulge and facet arthropathy. No central canal stenosis. Mild left foraminal narrowing. No right foraminal narrowing. IMPRESSION: 1. Severe endplate degenerative disc changes on the right at L3-L4. Mild intervertebral disc fluid without significant enhancement is new from prior examination, favor reactive degenerative changes, although early discitis is difficult to exclude. Attention on follow-up is recommended. 2. Diffuse enhancement along the cauda equina nerve roots may relate to spinal meningitis, although findings may conceivably be related to recent postoperative changes. 3. Stable compression fracture of right L2 vertebral body. Degenerative changes of the lumbar spine, stable compared to prior examination. Normal [facility] MRI SPINE THORACIC WITH AND WITHOUT CONTRASTon 01-27-2021 MRI SPINE THORACIC WITH AND WITHOUT CONTRAST EXAM: MRI SPINE THORACIC WITH AND WITHOUT CONTRAST, 01/27/2021 17:28 PM COMPARISON: MRI thoracic spine January 18, 2021 CLINICAL INDICATIONS: 45 years Female concern for epidural abscess, loss of upper BLE movement; TECHNIQUE: A series of sagittal and axial multisequence images of the thoracic spine were obtained both before and after intravenous administration of gadolinium-based contrast using standard protocol. Study was performed at 1.5 Madalyn. CONTRAST: gadoterate Meglumine (DOTAREM) 5 MMOL/10ML injection 3-60 mL; Route of Administration: Intravenous; Dose: 16 mL. FINDINGS: There are postoperative changes extending from the cervical spine to the T2 level. As described on same-day MRI cervical spine, there is ventral epidural abscess with a small component extending inferiorly to the T3-T4 level. There is fluid within the posterior upper paraspinal soft tissues. There is moderate canal stenosis at the T1 and T2 levels. As seen on same-day MRI cervical spine, there is STIR hyperintensity and edema within the T1 vertebral body. There is enhancement and edema involving T10-11 facet no surrounding inflammatory changes, favored to be degenerative. Alignment is normal. There is a stable mild superior endplate compression fracture of T5 vertebral body. No evidence of acute compression fracture. There is T1 intrinsic hyperintense lesion within the T11 vertebral body, likely related to the benign osseous hemangioma. Thoracic intervertebral discs are within normal limits in height and signal for age. No significant disc herniation. No evidence of discitis in the thoracic spine. No evidence for acute compression fracture. Thoracic cord is within normal limits in caliber and signal. There is abnormal enhancement throughout the ventral and dorsal thoracic nerve roots. The left lung appears entirely collapsed. Left pleural effusion. IMPRESSION: 1. Ventral epidural abscess extending from the cervical spine with a small component extending inferiorly to the T3-T4 level. Moderate central canal stenosis at the T1 and T2 level. 2. 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 3. Apparent collapse of the left lung with a left pleural effusion. Normal [facility] OSMOLALITY, URINEon 01-28-20 21 Osmolality, Urine 212 mOsm/kg Low 300-900 [facility] Comment on above: Order Comment: The r eference range has not been established for random urine specimens. The test result should be integrated into the clinical context for interpretation. Performed By: #### T YPEC #### [facility] (DEFAULT) [address] [address] SODIUM, RANDOM URINEon 01-27 Sodium (U) [Moles/Vol] 61 mmol/L Normal [facility] Comment on above: Order Comment: The r eference range has not been established for random urine specimens. The test result should be integrated into the clinical context for interpretation. Performed By: #### T YPEC #### [facility] (DEFAULT) [address] [address] TSHon 01-27-2021 TSH 2.522 uIU/mL Normal 0.550-4.780 [facility] Comment on above: Performed By: #### G EN #### [facility] (DEFAULT) [address] [address] CBC,PLATELETSon 01-26-2021 Hematocrit (Bld) [Volume fraction] 30.9 % Low 34.9-44.3 [facility] Comment on above: Performed By: #### X M #### [facility] (DEFAULT) [address] [address] Hemoglobin (Bld) [Mass/Vol] 10.0 g/dL Low 11.4-15.2 [facility] Comment on above: Performed By: #### X M #### [facility] (DEFAULT) [address] [address] MCV (RBC) [Entitic vol] 92.0 fL Normal 79.6-97.7 [facility] Comment on above: Performed By: #### X M #### [facility] (DEFAULT) [address] [address] Mean Cell Hgb 29.8 pg Normal 25.9-33.9 [facility] Comment on above: Performed By: #### X M #### [facility] (DEFAULT) [address] [address] Mean Cell Hgb Conc 32.4 g/dL Normal 31.4-35.9 [facility] Comment on above: Performed By: #### X M #### [facility] (DEFAULT) [address] [address] Platelet mean volume (Bld) [Entitic vol] 8.8 fL Normal 8.5-12.2 [facility] Comment on above: Performed By: #### X M #### [facility] (DEFAULT) [address] [address] Platelets (Bld) [#/Vol] 351 10*3/uL Normal 150-393 [facility] Comment on above: Performed By: #### X M #### [facility] (DEFAULT) [address] [address] RBC (Bld) [#/Vol] 3.36 10*6/uL Low 3.91-5.04 [facility] Comment on above: Performed By: #### X M #### [facility] (DEFAULT) [address] [address] RBC Distribution 14.6 % Normal 10.8-14.9 [facility] Comment on above: Performed By: #### X M #### [facility] (DEFAULT) [address] [address] WBC (Bld) [#/Vol] 11.32 10*3/uL High 3.99-11.19 [facility] Comment on above: Performed By: #### X M #### [facility] (DEFAULT) [address] [place] [address] CHEM 7 (LYTES,BUN,CREA,GLUC) on 01-26-2021 Anion gap [Moles/Vol] 10 mmol/L Normal 7-17 [facility] Comment on above: Performed By: #### Rhonda ANDERSEN #### [facility] (DEFAULT) [address] [place] [address] Chloride [Moles/Vol] 100 mmol/L Normal 98-108 [facility] Comment on above: Performed By: #### Rhonda ANDERSEN #### [facility] (DEFAULT) [address] [place] [address]47 CO2 [Moles/Vol] 26 mmol/L Normal 22-30 [facility] Comment on above: Performed By: #### Rhonda ANDERSEN #### [facility] (DEFAULT) [address] [place] [address] Creatinine [Mass/Vol] 0.35 mg/dL Low 0.50-1.20 [facility] Comment on above: Performed By: #### Rhonda ANDERSEN #### [facility] (DEFAULT) [address] [place] [address] 38783 EST GFR, >=60 Normal >=60 [facility] Comment on above: Performed By: #### Rhonda ANDERSEN #### [facility] (DEFAULT) [address] [place] [address]258 EST GFR,Non >=60 Normal >=60 [facility] Comment on above: Performed By: #### Rhonda ANDERSEN #### [facility] (DEFAULT) [address] [place] [address] Glucose [Mass/Vol] 115 mg/dL High 70-99 [facility] Comment on above: Performed By: #### Rhonda ANDERSEN #### [facility] (DEFAULT) [address] [place] [address] Osmolality [Osmolality] 276 mosm/kg Low 278-305 [facility] Comment on above: Performed By: #### Rhonda ANDERSEN #### [facility] (DEFAULT) [address] [place] [address] Potassium [Moles/Vol] 4.4 mmol/L Normal 3.5-5.0 [facility] Comment on above: Performed By: #### G ASALL #### [facility] (DEFAULT) [address] [place] [address]161 Sodium [Moles/Vol] 132 mmol/L Low 133-143 [facility] Comment on above: Performed By: #### G ASABINTA #### [facility] (DEFAULT) [address] [place] [address] 39168 Urea nitrogen [Mass/Vol] 4 mg/dL Low 7-22 [facility] Comment on above: Performed By: #### G GANESH #### [facility] (DEFAULT) [address] [place] [address]148 Urea nitrogen/Creatinine [Mass ratio] 11 mg/mg Normal [facility] Comment on above: Performed By: #### G GANESH #### [facility] (DEFAULT) [address] [place] [address] VANCOMYCIN LEVEL, TROUGH (IN E DRUG LEVEL)on 01-26-2021 Vancomycin, Trough 13.4 mcg/mL Normal Therapeut ic Range: 10.0-20.0 mcg/mL [facility] Comment on above: Order Comment: Pleas e draw level at specified interval PRIOR to next dose. Performed By: #### U [id number] #### [facility] (DEFAULT) [address] [place] [address] CBC,PLATELETSon 01-25-2021 Hematocrit (Bld) [Volume fraction] 29.3 % Low 34.9-44.3 [facility] Comment on above: Performed By: #### X M #### [facility] (DEFAULT) [address] [place] [address] Hemoglobin (Bld) [Mass/Vol] 9.6 g/dL Low 11.4-15.2 [facility] Comment on above: Performed By: #### X M #### [facility] (DEFAULT) [address] [place] [address] MCV (RBC) [Entitic vol] 91.0 fL Normal 79.6-97.7 [facility] Comment on above: Performed By: #### X M #### [facility] (DEFAULT) [address] [place] [address] Mean Cell Hgb 29.8 pg Normal 25.9-33.9 [facility] Comment on above: Performed By: #### X M #### [facility] (DEFAULT) [address] [place] [address] Mean Cell Hgb Conc 32.8 g/dL Normal 31.4-35.9 [facility] Comment on above: Performed By: #### X M #### [facility] (DEFAULT) [address] [place] [address] Platelet mean volume (Bld) [Entitic vol] 8.9 fL Normal 8.5-12.2 [facility] Comment on above: Performed By: #### X M #### [facility] (DEFAULT) [address] [address] Platelets (Bld) [#/Vol] 347 10*3/uL Normal 150-393 [facility] Comment on above: Performed By: #### X M #### [facility] (DEFAULT) [address] [place] [address] RBC (Bld) [#/Vol] 3.22 10*6/uL Low 3.91-5.04 [facility] Comment on above: Performed By: #### X M #### [facility] (DEFAULT) [address] [place] [address] RBC Distribution 14.2 % Normal 10.8-14.9 [facility] Comment on above: Performed By: #### X M #### [facility] (DEFAULT) [address] [place] [address] WBC (Bld) [#/Vol] 7.91 10*3/uL Normal 3.99-11.19 [facility] Comment on above: Performed By: #### X M #### [facility] (DEFAULT) [address] [place] [address] CHEM 7 (LYTES,BUN,CREA,GLUC) on 01-25-2021 Anion gap [Moles/Vol] 10 mmol/L Normal 7-17 [facility] Comment on above: Performed By: #### T YPEC #### [facility] (DEFAULT) [address] [place] [address] Chloride [Moles/Vol] 109 mmol/L High 98-108 [facility] Comment on above: Performed By: #### T YPEC #### [facility] (DEFAULT) [address] [place] [address] CO2 [Moles/Vol] 22 mmol/L Normal 22-30 [facility] Comment on above: Performed By: #### T YPEC #### [facility] (DEFAULT) [address] [place] [address] Creatinine [Mass/Vol] 0.30 mg/dL Low 0.50-1.20 [facility] Comment on above: Performed By: #### T YPEC #### [facility] (DEFAULT) [address] [place] [address] 41550 EST GFR, >=60 Normal >=60 [facility] Comment on above: Performed By: #### T YPEC #### [facility] (DEFAULT) [address] [place] [address] 8[address]60 EST GFR,Non >=60 Normal >=60 [facility] Comment on above: Performed By: #### T YPEC #### [facility] (DEFAULT) [address] [place] [address] Glucose [Mass/Vol] 146 mg/dL High 70-99 [facility] Comment on above: Performed By: #### T YPEC #### [facility] (DEFAULT) [address] [place] [address] Osmolality [Osmolality] 286 mosm/kg Normal 278-305 [facility] Comment on above: Performed By: #### T YPEC #### [facility] (DEFAULT) [address] [place] [address] Potassium [Moles/Vol] 2.6 mmol/L Critically low 3.5-5.0 [facility] Comment on above: Performed By: #### T YPEC #### [facility] (DEFAULT) [address] [place] [address] Sodium [Moles/Vol] 138 mmol/L Normal 133-143 [facility] Comment on above: Performed By: #### T YPEC #### [facility] (DEFAULT) [address] [place] [address] 8[address]90 Urea nitrogen [Mass/Vol] 3 mg/dL Low 7-22 [facility] Comment on above: Performed By: #### T YPEC #### [facility] (DEFAULT) [address] [place] [address] Urea nitrogen/Creatinine [Mass ratio] 10 mg/mg Normal [facility] Comment on above: Performed By: #### T YPEC #### [facility] (DEFAULT) [address] [place] [address] MAGNESIUMon 01-25-2021 Magnesium [Mass/Vol] 1.5 mg/dL Low 1.6-2.6 [facility] Comment on above: Performed By: #### T YPEC #### [facility] (DEFAULT) [address] [place] [address] POTASSIUMon 01-25-2021 Potassium [Moles/Vol] 4.0 mmol/L Normal 3.5-5.0 [facility] Comment on above: Result Comment: Resu lts inconsistent with previous results Performed By: #### T YPEC #### [facility] (DEFAULT) [address] [address] XR CHEST PORTABLEon 01-26-20 XR CHEST PORTABLE EXAM: XR CHEST RUSSEL BLE, 01/25/2021 18:15 PM COMPARISON: January 22, 2021 CLINICAL INDICATIONS: SOB, desaturations, increased work of breathing RELEVANT CLINICAL HISTORY: FINDINGS: (Adequate technique) Implanted Devices: None Thorax: Suspected small left pleural effusion. Worsening airspace disease and atelectasis at the left base. The right lung remains grossly clear. There is no pneumothorax. IMPRESSION: Worsening atelectasis and airspace disease at the left lung base. Consider aspiration/mucous plugging.. Normal [facility] BLOOD CULTUREon 01-24-2021 Bacteria identified Cx Nom (Unsp spec) NO GROWTH DAY 5 OF 5 Normal [facility] Comment on above: Order Comment: 2 Bot tles (1 Set - consists of 1 Aerobic (blue) bottle and 1 Anaerobic (purple) bottle) -1st Peripheral DrawFor syringe method draw:If able to obtain adequate sample (20 ml) inoculate anaerobic bottle firstIf inadequate sample obtained (less than 20 ml) inoculate aerobic bottle firstFor vacutainer method draw: Fill aerobic bottle first, then anaerobic Performed By: #### T YPEC #### [facility] (DEFAULT) [address] [address] Bacteria identified Cx Nom (Unsp spec) NO GROWTH DAY 5 OF 5 Normal [facility] Comment on above: Order Comment: 2 Bot tles (1 Set - consists of 1 Aerobic (blue) bottle and 1 Anaerobic (purple) bottle) -1st Peripheral DrawFor syringe method draw:If able to obtain adequate sample (20 ml) inoculate anaerobic bottle firstIf inadequate sample obtained (less than 20 ml) inoculate aerobic bottle firstFor vacutainer method draw: Fill aerobic bottle first, then anaerobic Performed By: #### T YPEC #### [facility] (DEFAULT) [address] [address] CBC,PLATELETSon 01-24-2021 Hematocrit (Bld) [Volume fraction] 29.3 % Low 34.9-44.3 [facility] Comment on above: Performed By: #### T YPEC #### [facility] (DEFAULT) [address] [address] Hemoglobin (Bld) [Mass/Vol] 9.6 g/dL Low 11.4-15.2 [facility] Comment on above: Performed By: #### T YPEC #### [facility] (DEFAULT) [address] [address] MCV (RBC) [Entitic vol] 91.0 fL Normal 79.6-97.7 [facility] Comment on above: Performed By: #### T YPEC #### [facility] (DEFAULT) [address] [address] Mean Cell Hgb 29.8 pg Normal 25.9-33.9 [facility] Comment on above: Performed By: #### T YPEC #### [facility] (DEFAULT) [address] [address] Mean Cell Hgb Conc 32.8 g/dL Normal 31.4-35.9 [facility] Comment on above: Performed By: #### T YPEC #### [facility] (DEFAULT) [address] [address] Platelet mean volume (Bld) [Entitic vol] 9.1 fL Normal 8.5-12.2 [facility] Comment on above: Performed By: #### T YPEC #### [facility] (DEFAULT) [address] [address] Platelets (Bld) [#/Vol] 297 10*3/uL Normal 150-393 [facility] Comment on above: Performed By: #### T YPEC #### [facility] (DEFAULT) [address] [address] RBC (Bld) [#/Vol] 3.22 10*6/uL Low 3.91-5.04 [facility] Comment on above: Performed By: #### T YPEC #### [facility] (DEFAULT) [address] [place] [address] RBC Distribution 13.9 % Normal 10.8-14.9 [facility] Comment on above: Performed By: #### T YPEC #### [facility] (DEFAULT) [address] [place] [address] WBC (Bld) [#/Vol] 9.66 10*3/uL Normal 3.99-11.19 [facility] Comment on above: Performed By: #### T YPEC #### [facility] (DEFAULT) [address] [place] [address] CHEM 7 (LYTES,BUN,CREA,GLUC) on 01-24-2021 Anion gap [Moles/Vol] 8 mmol/L Normal 7-17 [facility] Comment on above: Performed By: #### U [id number] #### [facility] (DEFAULT) [address] [place] [address]86 Chloride [Moles/Vol] 101 mmol/L Normal 98-108 [facility] Comment on above: Performed By: #### U [id number] #### [facility] (DEFAULT) [address] [place] [address]14 CO2 [Moles/Vol] 29 mmol/L Normal 22-30 [facility] Comment on above: Performed By: #### U [id number] #### [facility] (DEFAULT) [address] [place] [address] Creatinine [Mass/Vol] 0.31 mg/dL Low 0.50-1.20 [facility] Comment on above: Performed By: #### U [id number] #### [facility] (DEFAULT) [address] [place] [address] 00795 EST GFR, >=60 Normal >=60 [facility] Comment on above: Performed By: #### U [id number] #### [facility] (DEFAULT) [address] [place] [address] 22509 EST GFR,Non >=60 Normal >=60 [facility] Comment on above: Performed By: #### U [id number] #### [facility] (DEFAULT) [address] [place] [address]81 Glucose [Mass/Vol] 136 mg/dL High 70-99 [facility] Comment on above: Performed By: #### U [id number] #### [facility] (DEFAULT) [address] [place] [address]50 Osmolality [Osmolality] 280 mosm/kg Normal 278-305 [facility] Comment on above: Performed By: #### U [id number] #### [facility] (DEFAULT) [address] [place] [address] 6[address]62 Potassium [Moles/Vol] 3.5 mmol/L Normal 3.5-5.0 [facility] Comment on above: Performed By: #### U [id number] #### [facility] (DEFAULT) [address] [place] [address] 56453 Sodium [Moles/Vol] 134 mmol/L Normal 133-143 [facility] Comment on above: Performed By: #### U [id number] #### [facility] (DEFAULT) [address] [place] [address] 25860 Urea nitrogen [Mass/Vol] 3 mg/dL Low 7-22 [facility] Comment on above: Performed By: #### U [id number] #### [facility] (DEFAULT) [address] [place] [address]105 Urea nitrogen/Creatinine [Mass ratio] 10 mg/mg Normal [facility] Comment on above: Performed By: #### U [id number] #### [facility] (DEFAULT) [address] [place] [address] 53882 HEPATITIS B DNAon 01-24-2021 HBV Quantitative, PCR <10 Normal <10 [facility] Comment on above: Order Comment: This test was performed using a real-time HBV PCR assay. The dyanmic range for this assay is 10-1,000,000,000 IU/mL(1.00-9.00 Logs). Results should be interpreted in conjunction with other clinical and laboratory findings. Performed By: #### U [id number] #### [facility] (DEFAULT) [address] [address] HBV Quantitative, PCR (Log) <1.00 Normal <1.00 [facility] Comment on above: Order Comment: This test was performed using a real-time HBV PCR assay. The dyanmic range for this assay is 10-1,000,000,000 IU/mL(1.00-9.00 Logs). Results should be interpreted in conjunction with other clinical and laboratory findings. Performed By: #### U [id number] #### [facility] (DEFAULT) [address] [place] [address] XR SPINE CERVICAL 2 VIEWSon 01-24-2021 XR SPINE CERVICAL 2 VIEWS EXAM: XR SPINE CERVICAL 2 VIEWS, 01/24/2021 13:29 PM COMPARISON: Cervical spine radiographs 04/17/2020 CLINICAL INDICATIONS: s/p C2-T2 fusion please go down to T2 RELEVANT CLINICAL HISTORY: FINDINGS: 2 images obtained. Cervical Vertebral: Seven cervical vertebral bodies identified with interval C2-T2 posterior decompression and instrumented fusion. Hardware is intact and in appropriate alignment. Disc: Multilevel degenerative disc disease is present. Joint: Facet joints appear anatomically aligned. Soft Tissue: There is posterior soft tissue swelling with skin mirtha. IMPRESSION: Interval C2-T2 posterior decompression and instrumented fusion. Hardware is intact and in appropriate alignment. Normal [facility] CBC,PLATELETSon 01-23-2021 Hematocrit (Bld) [Volume fraction] 27.6 % Low 34.9-44.3 [facility] Comment on above: Performed By: #### U [id number] #### [facility] (DEFAULT) [address] [place] [address] Hemoglobin (Bld) [Mass/Vol] 9.3 g/dL Low 11.4-15.2 [facility] Comment on above: Performed By: #### U [id number] #### [facility] (DEFAULT) [address] [address] MCV (RBC) [Entitic vol] 88.5 fL Normal 79.6-97.7 [facility] Comment on above: Performed By: #### U [id number] #### [facility] (DEFAULT) [address] [address] Mean Cell Hgb 29.8 pg Normal 25.9-33.9 [facility] Comment on above: Performed By: #### U [id number] #### [facility] (DEFAULT) [address] [address] Mean Cell Hgb Conc 33.7 g/dL Normal 31.4-35.9 [facility] Comment on above: Performed By: #### U [id number] #### [facility] (DEFAULT) [address] [address] Platelet mean volume (Bld) [Entitic vol] 9.3 fL Normal 8.5-12.2 [facility] Comment on above: Performed By: #### U [id number] #### [facility] (DEFAULT) [address] [address] Platelets (Bld) [#/Vol] 291 10*3/uL Normal 150-393 [facility] Comment on above: Performed By: #### U [id number] #### [facility] (DEFAULT) [address] [address] RBC (Bld) [#/Vol] 3.12 10*6/uL Low 3.91-5.04 [facility] Comment on above: Performed By: #### U [id number] #### [facility] (DEFAULT) [address] [address] RBC Distribution 13.9 % Normal 10.8-14.9 [facility] Comment on above: Performed By: #### U [id number] #### [facility] (DEFAULT) [address] [place] [address]11 WBC (Bld) [#/Vol] 11.01 10*3/uL Normal 3.99-11.19 [facility] Comment on above: Performed By: #### U [id number] #### [facility] (DEFAULT) [address] [place] [address] 8[address]16 CHEM 7 (LYTES,BUN,CREA,GLUC) on 01-23-2021 Anion gap [Moles/Vol] 10 mmol/L Normal 7-17 [facility] Comment on above: Performed By: #### H FP, CHM7 ####[facility] (DEFAULT)[address] [place] [address]772 Chloride [Moles/Vol] 102 mmol/L Normal 98-108 [facility] Comment on above: Performed By: #### H FP, CHM7 ####[facility] (DEFAULT)[address] [place] [address] 5[address]20 CO2 [Moles/Vol] 24 mmol/L Normal 22-30 [facility] Comment on above: Performed By: #### H FP, CHM7 ####[facility] (DEFAULT)[address] [place] [address] 12311 Creatinine [Mass/Vol] 0.44 mg/dL Low 0.50-1.20 [facility] Comment on above: Performed By: #### H FP, CHM7 ####[facility] (DEFAULT)[address] [place] [address] 99043 EST GFR, >=60 Normal >=60 [facility] Comment on above: Performed By: #### H FP, CHM7 ####[facility] (DEFAULT)[address] [place] [address] 87649 EST GFR,Non >=60 Normal >=60 [facility] Comment on above: Performed By: #### H FP, CHM7 ####[facility] (DEFAULT)[address] [place] [address] Glucose [Mass/Vol] 196 mg/dL High 70-99 [facility] Comment on above: Performed By: #### H FP, CHM7 ####[facility] (DEFAULT)[address] [place] [address] Osmolality [Osmolality] 281 mosm/kg Normal 278-305 [facility] Comment on above: Performed By: #### H FP, CHM7 ####[facility] (DEFAULT)[address] [place] [address] Potassium [Moles/Vol] 3.2 mmol/L Low 3.5-5.0 [facility] Comment on above: Performed By: #### H FP, CHM7 ####[facility] (DEFAULT)[address] [place] [address] Sodium [Moles/Vol] 133 mmol/L Normal 133-143 [facility] Comment on above: Performed By: #### H ROSA, CHM7 ####[facility] (DEFAULT)[address] [place] [address], [place] [address] Urea nitrogen [Mass/Vol] 4 mg/dL Low 7-22 [facility] Comment on above: Performed By: #### H FP, CHM7 ####[facility] (DEFAULT)[address] [place] [address], [place] [address] Urea nitrogen/Creatinine [Mass ratio] 9 mg/mg Normal [facility] Comment on above: Performed By: #### H FP, CHM7 ####[facility] (DEFAULT)[address] [place] [address] HEPATIC FUNCTION PANELon Albumin [Mass/Vol] 2.2 g/dL Low 3.5-5.0 [facility] Comment on above: Performed By: #### H FP, CHM7 ####[facility] (DEFAULT)[address] [place] [address] ALP [Catalytic activity/Vol] 124 U/L Normal 32-126 [facility] Comment on above: Performed By: #### H FP, CHM7 ####[facility] (DEFAULT)[address] [place] [address] ALT [Catalytic activity/Vol] 17 U/L Normal 9-48 [facility] Comment on above: Performed By: #### H ROSA, CHM7 ####[facility] (DEFAULT)[address] [place] [address] AST [Catalytic activity/Vol] 15 U/L Normal 14-40 [facility] Comment on above: Performed By: #### H FP, CHM7 ####[facility] (DEFAULT)[address] [place] [address] Bilirubin [Mass/Vol] 0.4 mg/dL Normal <1.5 [facility] Comment on above: Performed By: #### H FP, CHM7 ####[facility] (DEFAULT)[address] [place] [address] Bilirubin.indirect [Mass/Vol] 0.1 mg/dL Normal <0.3 [facility] Comment on above: Performed By: #### H FP, CHM7 ####[facility] (DEFAULT)[address] [place] [address] Protein [Mass/Vol] 5.2 g/dL Low 6.4-8.3 [facility] Comment on above: Performed By: #### H FP, CHM7 ####[facility] (DEFAULT)[address] [facility] [place] [address] PROTIME-INRon 01-23-2021 INR Coag (PPP) [Relative time] 1.4 {INR} High 0.9-1.1 [facility] Comment on above: Performed By: #### U [id number] #### [facility] (DEFAULT) [address] [place] [address] PT Coag (PPP) [Time] 16.5 s High 11.9-14.2 [facility] Comment on above: Performed By: #### U [id number] #### [facility] (DEFAULT) [address] [place] [address] US ABDOMEN RUQ/LIVER/GBon US ABDOMEN RUQ/LIVER/GB EXAM: US ABDOMEN RUQ/LIVER/GB, 01/23/2021 02:18 AM CLINICAL INDICATIONS: History of Hep B and C COMPARISON: Ultrasound abdomen dated August 26, 2019 TECHNIQUE: Real-time ultrasound evaluation of the right upper quadrant was performed utilizing a curved array transducer. Duplex scan is performed. Color flow images and spectral waveforms obtained. FINDINGS: Pancreas: The visualized pancreas shows no discrete focal lesions or ductal dilatation. Small hypoechoic oval-shaped focus along the pancreatic head likely a lymph node measuring 1.6 x 1.3 x 0.8 cm in size. Portal vein confluence is patent. Liver: The liver parenchyma shows heterogeneous slight increased echotexture likely related to underlying liver parenchymal disease/steatosis/hepati tis. Liver is mildly enlarged. Slightly prominent periportal echoes.. There is no evidence of an intrahepatic mass or biliary ductal dilation. No definite perihepatic fluid or collection Doppler ultrasound demonstrates hepatopetal flow in the main portal vein. Flow velocity is 49.0 cm/sec which is normal. Gall Bladder: The gallbladder is surgically absent. No gross abnormality in the gallbladder fossa The common duct is diffusely dilated measuring 15 mm in diameter. No obvious CBD calculi to the extent visualized Right Kidney: Limited evaluation of the right kidney demonstrates no hydronephrosis. Bipolar length is 12.4 cm. No focal abnormalities noted within the right kidney Ascites: There is no interval ascites in the visualized abdomen. IMPRESSION: 1. Mild hepatomegaly with heterogeneous increased echotexture likely related to underlying liver parenchymal disease/steatosis/hepati tis. No definite focal liver lesions. Patent portal vein 2. Postcholecystectomy status. Diffuse dilatation of the common bile duct likely related to prior cholecystectomy. No obvious CBD calculi to the extent visualized. 3. No interval ascites, Normal [facility] XR CHEST PORTABLEon 01-24-20 XR CHEST PORTABLE EXAM: XR CHEST RUSSEL BLE, 01/22/2021 22:29 PM COMPARISON: January 10, 2021. CLINICAL INDICATIONS: persistent hypoxia, productive cough RELEVANT CLINICAL HISTORY: FINDINGS: (Adequate technique) Tubes, Lines, and life support hardware: None. Lungs: The lungs are clear. There are no pleural effusions. There is no pneumothorax. Cardiac, mediastinum, and hilum: The cardiomediastinal silhouette is within normal limits. ... Pulmonary Vessels: Normal, without PVH Bones, chest wall, and soft tissues: Posterior stabilization of the cervical and superior thoracic spine. Impression: 1. No acute disease in the chest. Normal [facility] CBC,PLATELETSon 01-22-2021 Hematocrit (Bld) [Volume fraction] 26.9 % Low 34.9-44.3 [facility] Comment on above: Performed By: #### T YPEC #### [facility] (DEFAULT) [address] [address] Hemoglobin (Bld) [Mass/Vol] 9.1 g/dL Low 11.4-15.2 [facility] Comment on above: Performed By: #### T YPEC #### [facility] (DEFAULT) [address] [address] MCV (RBC) [Entitic vol] 88.8 fL Normal 79.6-97.7 [facility] Comment on above: Performed By: #### T YPEC #### [facility] (DEFAULT) [address] [address] Mean Cell Hgb 30.0 pg Normal 25.9-33.9 [facility] Comment on above: Performed By: #### T YPEC #### [facility] (DEFAULT) [address] [address] Mean Cell Hgb Conc 33.8 g/dL Normal 31.4-35.9 [facility] Comment on above: Performed By: #### T YPEC #### [facility] (DEFAULT) [address] [address] Platelet mean volume (Bld) [Entitic vol] 9.5 fL Normal 8.5-12.2 [facility] Comment on above: Performed By: #### T YPEC #### [facility] (DEFAULT) [address] [place] [address] Platelets (Bld) [#/Vol] 246 10*3/uL Normal 150-393 [facility] Comment on above: Performed By: #### T YPEC #### [facility] (DEFAULT) [address] [address] RBC (Bld) [#/Vol] 3.03 10*6/uL Low 3.91-5.04 [facility] Comment on above: Performed By: #### T YPEC #### [facility] (DEFAULT) [address] [address] RBC Distribution 13.6 % Normal 10.8-14.9 [facility] Comment on above: Performed By: #### T YPEC #### [facility] (DEFAULT) [address] [address] WBC (Bld) [#/Vol] 9.48 10*3/uL Normal 3.99-11.19 [facility] Comment on above: Performed By: #### T YPEC #### [facility] (DEFAULT) [address] [address] CHEM 7 (LYTES,BUN,CREA,GLUC) on 01-22-2021 Anion gap [Moles/Vol] 9 mmol/L Normal 7-17 [facility] Comment on above: Performed By: #### X M #### [facility] (DEFAULT) [address] [address] Chloride [Moles/Vol] 100 mmol/L Normal 98-108 [facility] Comment on above: Performed By: #### X M #### [facility] (DEFAULT) [address] [place] [address] CO2 [Moles/Vol] 23 mmol/L Normal 22-30 [facility] Comment on above: Performed By: #### X M #### [facility] (DEFAULT) [address] [place] [address] Creatinine [Mass/Vol] 0.33 mg/dL Low 0.50-1.20 [facility] Comment on above: Performed By: #### X M #### [facility] (DEFAULT) [address] [place] [address] EST GFR, >=60 Normal >=60 [facility] Comment on above: Performed By: #### X M #### [facility] (DEFAULT) [address] [place] [address] EST GFR,Non >=60 Normal >=60 [facility] Comment on above: Performed By: #### X M #### [facility] (DEFAULT) [address] [place] [address] Glucose [Mass/Vol] 115 mg/dL High 70-99 [facility] Comment on above: Performed By: #### X M #### [facility] (DEFAULT) [address] [place] [address] Osmolality [Osmolality] 270 mosm/kg Low 278-305 [facility] Comment on above: Performed By: #### X M #### [facility] (DEFAULT) [address] [place] [address] Potassium [Moles/Vol] 3.4 mmol/L Low 3.5-5.0 [facility] Comment on above: Performed By: #### X M #### [facility] (DEFAULT) [address] [place] [address] Sodium [Moles/Vol] 129 mmol/L Low 133-143 [facility] Comment on above: Performed By: #### X M #### [facility] (DEFAULT) [address] [place] [address] Urea nitrogen [Mass/Vol] 7 mg/dL Normal 7-22 [facility] Comment on above: Performed By: #### X M #### [facility] (DEFAULT) [address] [place] [address] Urea nitrogen/Creatinine [Mass ratio] 21 mg/mg Normal [facility] Comment on above: Performed By: #### X M #### [facility] (DEFAULT) [address] [place] [address] IONIZED CALCIUM, INPATIENTon 01-22-2021 ICA 4.06 mg/dL Low 4.60-5.30 [facility] Comment on above: Order Comment: If io nized calcium is less than or equal to 3.0 mg/dL, recheck ionized calcium 2 hours after replacement. Performed By: #### T YPEC #### [facility] (DEFAULT) [address] [place] [address] PHOSPHATE, INORGANICon 01-22 Phosphorous 2.3 mg/dL Normal 2.2-4.6 [facility] Comment on above: Order Comment: If ph osphate level is less than or equal to 2.0 mg/dL, recheck phosphate 6 hours after replacement. Performed By: #### X M #### [facility] (DEFAULT) [address] [place] [address] VANCOMYCIN LEVEL, TROUGH (IN E DRUG LEVEL)on 01-22-2021 Vancomycin, Trough 10.9 mcg/mL Normal Therapeut ic Range: 10.0-20.0 mcg/mL [facility] Comment on above: Order Comment: Pleas e draw level 1 hour PRIOR to dose due at 1300 on 01/22/2021. Can give next dose prior to level resulting. Contact pharmacy if level comes back > 20. Thanks! Performed By: #### T YPEC #### [facility] (DEFAULT) [address] [place] [address] VANCOMYCIN, PEAKon Vancomycin, Peak 25.3 mcg/mL Normal Therapeutic Range: 20.0-40.0 mcg/mL [facility] Comment on above: Order Comment: Linda santana draw peak level 60 minutes after the END of vancomycin infusion for dose that is due at 1300 on 01/22/2021. Do not draw less than 60 minutes after completion of infusion. Performed By: #### T YPEC #### [facility] (DEFAULT) [address] [address] BLOOD CULTUREon 01-21-2021 Bacteria identified Cx Nom (Unsp spec) NO GROWTH DAY 5 OF 5 Normal [facility] Comment on above: Order Comment: 2 Bot tles (1 Set - consists of 1 Aerobic (blue) bottle and 1 Anaerobic (purple) bottle) -1st Peripheral DrawFor syringe method draw:If able to obtain adequate sample (20 ml) inoculate anaerobic bottle firstIf inadequate sample obtained (less than 20 ml) inoculate aerobic bottle firstFor vacutainer method draw: Fill aerobic bottle first, then anaerobic Performed By: #### T YPEC #### [facility] (DEFAULT) [address] [address] CBC,PLATELETSon 01-21-2021 Hematocrit (Bld) [Volume fraction] 27.4 % Low 34.9-44.3 [facility] Comment on above: Performed By: #### U [id number] #### [facility] (DEFAULT) [address] [address] Hemoglobin (Bld) [Mass/Vol] 9.6 g/dL Low 11.4-15.2 [facility] Comment on above: Performed By: #### U [id number] #### [facility] (DEFAULT) [address] [address] MCV (RBC) [Entitic vol] 87.8 fL Normal 79.6-97.7 [facility] Comment on above: Performed By: #### U [id number] #### [facility] (DEFAULT) [address] [address] Mean Cell Hgb 30.8 pg Normal 25.9-33.9 [facility] Comment on above: Performed By: #### U [id number] #### [facility] (DEFAULT) [address] [address] Mean Cell Hgb Conc 35.0 g/dL Normal 31.4-35.9 [facility] Comment on above: Performed By: #### U [id number] #### [facility] (DEFAULT) [address] [address] Platelet mean volume (Bld) [Entitic vol] 9.5 fL Normal 8.5-12.2 [facility] Comment on above: Performed By: #### U [id number] #### [facility] (DEFAULT) [address] [address] Platelets (Bld) [#/Vol] 204 10*3/uL Normal 150-393 [facility] Comment on above: Performed By: #### U [id number] #### [facility] (DEFAULT) [address] [address] RBC (Bld) [#/Vol] 3.12 10*6/uL Low 3.91-5.04 [facility] Comment on above: Performed By: #### U [id number] #### [facility] (DEFAULT) [address] [address] RBC Distribution 13.9 % Normal 10.8-14.9 [facility] Comment on above: Performed By: #### U [id number] #### [facility] (DEFAULT) [address] [address] WBC (Bld) [#/Vol] 7.76 10*3/uL Normal 3.99-11.19 [facility] Comment on above: Performed By: #### U [id number] #### [facility] (DEFAULT) [address] [address] CHEM 7 (LYTES,BUN,CREA,GLUC) on 01-21-2021 Anion gap [Moles/Vol] 10 mmol/L Normal 7-17 [facility] Comment on above: Performed By: #### T YPEC #### [facility] (DEFAULT) [address] [place] [address] Chloride [Moles/Vol] 101 mmol/L Normal 98-108 [facility] Comment on above: Performed By: #### T YPEC #### [facility] (DEFAULT) [address] [place] [address] CO2 [Moles/Vol] 22 mmol/L Normal 22-30 [facility] Comment on above: Performed By: #### T YPEC #### [facility] (DEFAULT) [address] [place] [address] Creatinine [Mass/Vol] 0.35 mg/dL Low 0.50-1.20 [facility] Comment on above: Performed By: #### T YPEC #### [facility] (DEFAULT) [address] [place] [address] EST GFR, >=60 Normal >=60 [facility] Comment on above: Performed By: #### T YPEC #### [facility] (DEFAULT) [address] [place] [address] EST GFR,Non >=60 Normal >=60 [facility] Comment on above: Performed By: #### T YPEC #### [facility] (DEFAULT) [address] [place] [address] Glucose [Mass/Vol] 137 mg/dL High 70-99 [facility] Comment on above: Performed By: #### T YPEC #### [facility] (DEFAULT) [address] [place] [address] Osmolality [Osmolality] 272 mosm/kg Low 278-305 [facility] Comment on above: Performed By: #### T YPEC #### [facility] (DEFAULT) [address] [place] [address] Potassium [Moles/Vol] 3.5 mmol/L Normal 3.5-5.0 [facility] Comment on above: Performed By: #### T YPEC #### [facility] (DEFAULT) [address] [address] Sodium [Moles/Vol] 129 mmol/L Low 133-143 [facility] Comment on above: Performed By: #### T YPEC #### [facility] (DEFAULT) [address] [address] Urea nitrogen [Mass/Vol] 9 mg/dL Normal 7-22 [facility] Comment on above: Performed By: #### T YPEC #### [facility] (DEFAULT) [address] [address] Urea nitrogen/Creatinine [Mass ratio] 26 mg/mg Normal [facility] Comment on above: Performed By: #### T YPEC #### [facility] (DEFAULT) [address] [address] CREATININE SERUMon Creatinine [Mass/Vol] 0.38 mg/dL Low 0.50-1.20 [facility] Comment on above: Performed By: #### T YPEC #### [facility] (DEFAULT) [address] [address] EST GFR, >=60 Normal >=60 [facility] Comment on above: Performed By: #### T YPEC #### [facility] (DEFAULT) [address] [address] EST GFR,Non >=60 Normal >=60 [facility] Comment on above: Performed By: #### T YPEC #### [facility] (DEFAULT) [address] [address] CREATININE, 8 HOUR URINEon 0 01-21-2021 Creatinine (U) [Mass/Vol] 92.15 mg/dL Normal [facility] Comment on above: Order Comment: No Pr eservative, refrigerate. Performed By: #### T YPEC #### [facility] (DEFAULT) [address] [place] [address] Creatinine Clearance, Ml/Min, Urine 163.7 mL/min Normal [facility] Comment on above: Order Comment: No Pr eservative, refrigerate. Result Comment: This is a corrected result. Previous result was 54.6 mL/min on 01/21/2021 at 0627 EDT Performed By: #### T YPEC #### [facility] (DEFAULT) [address] [place] [address] Interval [address] [facility] Comment on above: Order Comment: No Pr eservative, refrigerate. Result Comment: This is a corrected result. Previous result was 24 hrs on 01/21/2021 at 0627 EDT Performed By: #### T YPEC #### [facility] (DEFAULT) [address] [place] [address] Urine Volume [address] [facility] Comment on above: Order Comment: No Pr eservative, refrigerate. Performed By: #### T YPEC #### [facility] (DEFAULT) [address] [place] [address] HEPATITIS B DNAon 01-21-2021 HBV Quantitative, PCR <10 Normal <10 [facility] Comment on above: Order Comment: This test was performed using a real-time HBV PCR assay. The dyanmic range for this assay is 10-1,000,000,000 IU/mL(1.00-9.00 Logs). Results should be interpreted in conjunction with other clinical and laboratory findings. Performed By: #### C HM7, MGO, IPB #### [facility] (DEFAULT) [address] [place] [address] HBV Quantitative, PCR (Log) <1.00 Normal <1.00 [facility] Comment on above: Order Comment: This test was performed using a real-time HBV PCR assay. The dyanmic range for this assay is 10-1,000,000,000 IU/mL(1.00-9.00 Logs). Results should be interpreted in conjunction with other clinical and laboratory findings. Performed By: #### C HM7, MGO, IPB #### [facility] (DEFAULT) [address] [address] HEPATITIS C BY PCR, QUANTon 01-21-2021 Hepatitis C By Pcr, Quant. <12 Normal <12 [facility] Comment on above: Order Comment: This test was performed using a real time PCR assay. The dynamic range for this assay is 12-100,000,000 IU/mL. Performed By: #### T YPEC #### [facility] (DEFAULT) [address] [address] Hepatitis C By Pcr,(Log) <1.08 Normal <1.08 [facility] Comment on above: Order Comment: This test was performed using a real time PCR assay. The dynamic range for this assay is 12-100,000,000 IU/mL. Performed By: #### T YPEC #### [facility] (DEFAULT) [address] [address] IONIZED CALCIUM, INPATIENTon 01-21-2021 ICA 4.06 mg/dL Low 4.60-5.30 [facility] Comment on above: Order Comment: If io nized calcium is less than or equal to 3.0 mg/dL, recheck ionized calcium 2 hours after replacement. Performed By: #### X M #### [facility] (DEFAULT) [address] [address] PHOSPHATE, INORGANICon 01-21 Phosphorous 1.5 mg/dL Low 2.2-4.6 [facility] Comment on above: Order Comment: If ph osphate level is less than or equal to 2.0 mg/dL, recheck phosphate 6 hours after replacement. Performed By: #### T YPEC #### [facility] (DEFAULT) [address] [address] POTASSIUMon 01-21-2021 Potassium [Moles/Vol] 3.3 mmol/L Low 3.5-5.0 [facility] Comment on above: Order Comment: If po tassium level is less than or equal to 3.0 mmol/L, recheck potassium 4 hours after replacement. Performed By: #### T YPEC #### [facility] (DEFAULT) [address] [address] VANCOMYCIN LEVEL, TROUGH (IN E DRUG LEVEL)on 01-21-2021 Vancomycin, Trough 8.5 mcg/mL Low Therapeut ic Range: 10.0-20.0 mcg/mL [facility] Comment on above: Order Comment: Pleas e draw level 1 hour PRIOR to dose due at 1300 on 01/21/2021. Please hold dose and contact pharmacy if level > 20. Thanks! Performed By: #### V ANCTR ####[facility] (DEFAULT)[address] [place] [address] BLOOD CULTUREon 01-20-2021 Bacteria identified Cx Nom (Unsp spec) NO GROWTH DAY 5 OF 5 Normal [facility] Comment on above: Order Comment: 2 Bot tles (1 Set - consists of 1 Aerobic (blue) bottle and 1 Anaerobic (purple) bottle) -1st Peripheral DrawFor syringe method draw:If able to obtain adequate sample (20 ml) inoculate anaerobic bottle firstIf inadequate sample obtained (less than 20 ml) inoculate aerobic bottle firstFor vacutainer method draw: Fill aerobic bottle first, then anaerobic Performed By: #### T YPEC #### [facility] (DEFAULT) [address] [address] CBC,PLATELETSon 01-20-2021 Hematocrit (Bld) [Volume fraction] 25.9 % Low 34.9-44.3 [facility] Comment on above: Performed By: #### T YPEC #### [facility] (DEFAULT) [address] [address] Hemoglobin (Bld) [Mass/Vol] 8.9 g/dL Low 11.4-15.2 [facility] Comment on above: Performed By: #### T YPEC #### [facility] (DEFAULT) [address] [address] MCV (RBC) [Entitic vol] 86.9 fL Normal 79.6-97.7 [facility] Comment on above: Performed By: #### T YPEC #### [facility] (DEFAULT) [address] [address] Mean Cell Hgb 29.9 pg Normal 25.9-33.9 [facility] Comment on above: Performed By: #### T YPEC #### [facility] (DEFAULT) [address] [address] Mean Cell Hgb Conc 34.4 g/dL Normal 31.4-35.9 [facility] Comment on above: Performed By: #### T YPEC #### [facility] (DEFAULT) [address] [address] Platelet mean volume (Bld) [Entitic vol] 9.6 fL Normal 8.5-12.2 [facility] Comment on above: Performed By: #### T YPEC #### [facility] (DEFAULT) [address] [address] Platelets (Bld) [#/Vol] 152 10*3/uL Normal 150-393 [facility] Comment on above: Performed By: #### T YPEC #### [facility] (DEFAULT) [address] [address] RBC (Bld) [#/Vol] 2.98 10*6/uL Low 3.91-5.04 [facility] Comment on above: Performed By: #### T YPEC #### [facility] (DEFAULT) [address] [address] RBC Distribution 13.8 % Normal 10.8-14.9 [facility] Comment on above: Performed By: #### T YPEC #### [facility] (DEFAULT) [address] [address] WBC (Bld) [#/Vol] 8.13 10*3/uL Normal 3.99-11.19 [facility] Comment on above: Performed By: #### T YPEC #### [facility] (DEFAULT) [address] [address] CHEM 7 (LYTES,BUN,CREA,GLUC) on 01-20-2021 Anion gap [Moles/Vol] 12 mmol/L Normal 7-17 [facility] Comment on above: Performed By: #### T YPEC #### [facility] (DEFAULT) [address] [place] [address] Chloride [Moles/Vol] 101 mmol/L Normal 98-108 [facility] Comment on above: Performed By: #### T YPEC #### [facility] (DEFAULT) [address] [address] CO2 [Moles/Vol] 22 mmol/L Normal 22-30 [facility] Comment on above: Performed By: #### T YPEC #### [facility] (DEFAULT) [address] [address] Creatinine [Mass/Vol] 0.36 mg/dL Low 0.50-1.20 [facility] Comment on above: Performed By: #### T YPEC #### [facility] (DEFAULT) [address] [address] EST GFR, >=60 Normal >=60 [facility] Comment on above: Performed By: #### T YPEC #### [facility] (DEFAULT) [address] [address] EST GFR,Non >=60 Normal >=60 [facility] Comment on above: Performed By: #### T YPEC #### [facility] (DEFAULT) [address] [address] Glucose [Mass/Vol] 130 mg/dL High 70-99 [facility] Comment on above: Performed By: #### T YPEC #### [facility] (DEFAULT) [address] [address] Osmolality [Osmolality] 278 mosm/kg Normal 278-305 [facility] Comment on above: Performed By: #### T YPEC #### [facility] (DEFAULT) [address] [address] Potassium [Moles/Vol] 3.5 mmol/L Normal 3.5-5.0 [facility] Comment on above: Performed By: #### T YPEC #### [facility] (DEFAULT) [address] [address] Sodium [Moles/Vol] 131 mmol/L Low 133-143 [facility] Comment on above: Performed By: #### T YPEC #### [facility] (DEFAULT) [address] [address] Urea nitrogen [Mass/Vol] 15 mg/dL Normal 7-22 [facility] Comment on above: Performed By: #### T YPEC #### [facility] (DEFAULT) [address] [address] Urea nitrogen/Creatinine [Mass ratio] 42 mg/mg Normal [facility] Comment on above: Performed By: #### T YPEC #### [facility] (DEFAULT) [address] [address] ECHOCARDIOGRAMon 01-20-2021 Echocardiography Technically difficul t study. Normal left ventricular size with low normal to mildly reduced systolic function. EF 45-50%. Normal right ventricular size and function. No significant valvular disease identified. No vegetations identified on this study. Facility [facility] Patient Information Patient Name Katarzyna Vargas Legal Sex Female Indication for Exam Priority: STAT Dx: Bacteremia [R78.81 (ICD-10-CM)] Order Question Reason for Exam eval for endocarditis Interpretation Summary Technically difficult study. Normal left ventricular size with low normal to mildly reduced systolic function. EF 45-50%. Normal right ventricular size and function. No significant valvular disease identified. No vegetations identified on this study. Findings Left Ventricle Chamber size is normal. Normal wall thickness. Normal global wall motion. Regional wall motion is normal. Ejection fraction is mildly reduced (45 - 50%). Diastolic function could not be determined. Right Ventricle Chamber size is normal. Normal wall thickness. Segmental wall motion is normal. Systolic function is normal. Left Atrium Chamber size is normal. Right Atrium Chamber size is normal. Septum The atrial septum is normal. Mitral Valve Normal appearing leaflets. Leaflet mobility is normal. No regurgitation. No valve stenosis. Aortic Valve Trileaflet valve. Leaflet mobility is normal. No regurgitation. No stenosis. Tricuspid Valve Normal leaflets. Leaflet mobility is normal. Trace regurgitation. No stenosis. Pulmonic Valve Normal structure. No regurgitation. No stenosis. Aorta No dilation to extent seen. Pericardium Appears normal. No pericardial effusion. Reading Providers Reading Role Read Date Sherwin Hernández MD Echo [place] 01/20/2021 Left Heart Measurements LV - Systole LVIDD 6.26 cm IVS 0.73 cm LVIDS 4.8 cm PW 0.76 cm LV RWT 0.24 LV Mass Index 95.2 g/m2 LV EDV BP 109 mL LV ESV BP 56 mL BP EF 49 % LV stroke volume BP (ml) 53 mL LV stroke volume index BP 27.46 mL/m2 LV - Diastole MV pk E diya 1.12 m/s MV pk A diya 0.68 m/s E/A ratio 1.65 e' septal pk diya 0.1 m/s e' lateral pk diya 0.12 m/s Avg e' pk diya 0.11 m/s E/e' septal ratio 11.32 E/e' lateral ratio 9.11 Avg E/e' ratio 10.22 LV - HCM AV LVOT peak gradient 6 mmHg Left Atrium LA size 3.8 cm LA ESV SP 4CH (MOD) 45 mL LA ESV SP 2CH (MOD) 49 mL LA ESV BP (MOD) index 26 mL/m2 Right Heart Measurements RV - 2D RV basal diam 3.48 cm RV long diam 7.31 cm RV - Doppler TAPSE 2.65 RV S' 12.6 cm/s Right Atrium RA vol index 4CH (MOD) 21.76 mL/m2 EST RAP 10 mmHg Great Vessels Aortic Root - End Diastolic Sinus 3 cm STJ 2.57 cm Inferior Vena Cava IVC ostium 2.65 cm Doppler Measurements - Aortic Valve Stenosis LVOT diameter 2.1 cm LVOT area 3.46 cm2 LVOT peak diya 1.2 m/s Ao peak diya 1.72 m/s AV peak gradient 12 mmHG DI (Vmax) 0.7 JAY (continuity Vmax) 2.42 cm2 JAY index (continuity Vmax) 1.25 m/s Doppler Measurements - Mitral Valve Stenosis MV pk E diya 1.12 m/s MV pk A diya 0.68 m/s E/A ratio 1.65 MV stenosis pressure 1/2 time 44 ms MV valve area p 1/2 method 5 cm2 PISA-MS MV pk E diya 1.12 m/s Doppler Measurements - Tricuspid Valve Stenosis IVC ostium 2.65 cm Regurgitation EST RAP 10 mmHg Doppler Measurements - Pulmonic Valve Stenosis PV PK DIYA 1.22 m/s PV peak gradient 6 mmHg RVOT peak diya 0.98 m/s RVOT peak gradient 4 mmHg Performing Staff Sandra Echeverria RDCS Study Details Study(s) performed: complete. Overall study quality was fair. Study limitations include patient's inability to turn and technically difficult study. Imaging system used: Kostas. Exam Details Performed Procedure Technologist Supporting Staff Performing Physician IN ECHOCARDIOGRAM W/O 3D Sandra Echeverria RDCS Appointment Date/Status Modality Department 01/20/2021 Arrived ECHO TESTING, [facility] ECHOCARDIOGRAPHY ROSS Begin Exam End Exam 01/20/2021 7:28 AM 01/20/2021 2:53 PM Vitals Height Weight BSA (Calculated - sq m) BP Pulse 1.727 m (5' 7.99) 79.2 kg (174 lb 9.7 oz) 1.93 m2 121/70 83 Signed at 1500 EDT External Results Report Open External Results Report Patient Release Status: This result is scheduled for release on 01/20/2021 3:00 PM. ABN Associated with this Order There is no ABN associated with this order. Normal [facility] HCG QUALITATIVE, URINEon Beta HCG ( test) Ql (U) Negative Normal Negative [facility] Comment on above: Order Comment: Draw with next labs Performed By: #### T YPEC #### [facility] (DEFAULT) [address] [place] [address] MAGNESIUMon 01-20-2021 Magnesium [Mass/Vol] 1.9 mg/dL Normal 1.6-2.6 [facility] Comment on above: Performed By: #### T YPEC #### [facility] (DEFAULT) [address] [place] [address] MRI ANGIO NECK WITH AND WITH OUT CONTRASTon 01-20-2021 MRI ANGIO NECK WITH AND WITHOUT CONTRAST EXAM: MRI ANGIO NECK WITH AND WITHOUT CONTRAST, 01/20/2021 13:02 PM COMPARISON: No previous study is available for comparison. CLINICAL INDICATIONS: 45 years Female rule out mycotic aneurysm, stenoses; RELEVANT CLINICAL HISTORY: TECHNIQUE: MR Angiography of the Neck is performed precontrast 2D Time of Flight technique, with MIP and source images are provided. MR Angiography of the Neck is performed using contrast enhanced MRA (CEMRA) technique, with 3D gradient echo coronal slabs obtained both before and after intravenous administration of gadolinium based contrast, with MIP and source images provided. Time resolved (TWIST) CEMRA acquisition is also performed, reconstructed in a coronal slab MIP and reformatted into axial and sagittal planes. CONTRAST: gadoterate Meglumine (DOTAREM) 5 MMOL/10ML injection 3-60 mL; Route of Administration: Intravenous; Dose: 15 mL. FINDINGS: Aortic Arch: There is conventional origin of the great vessels from the aortic arch, and no stenosis at the origins. Carotid Arteries: Carotid arteries are normal in caliber with no evidence of dissection. Carotid bifurcations show no significant stenosis. Vertebral Arteries: No significant stenosis or evidence of dissection. IMPRESSION: No significant stenosis of the extracranial carotid or vertebral arteries Normal [facility] MRI ARTERIOGRAM BRAIN WITHOU T CONTRASTon 01-20-2021 MRI ARTERIOGRAM BRAIN WITHOUT CONTRAST EXAM: MRI ARTERIOGRAM BRAIN WITHOUT CONTRAST, 01/20/2021 13:00 PM COMPARISON: No previous study is available for comparison. CLINICAL INDICATIONS: 45 years Female rule out mycotic aneurysm, stenoses; RELEVANT CLINICAL HISTORY: TECHNIQUE: MR Angiography of the brain is performed using 3D [id number] technique without intravenous contrast. Source images, as well as MIP images with region of interest cut-outs, are provided. FINDINGS: Visualized cervical, petrous, cavernous, and supraclinoid internal carotid arteries are within normal limits. Visualized anterior cerebral arteries are within normal limits. Visualized middle cerebral arteries are within normal limits. Visualized posterior cerebral arteries appear unremarkable. Basilar artery and visualized vertebral arteries are within normal limits. No significant developmental variants are identified. No evidence of aneurysm or AVM. IMPRESSION: No cerebral artery occlusion or aneurysm Normal [facility] MRI BRAIN WITH AND WITHOUT C [facility] 01-20-2021 MRI BRAIN WITH AND WITHOUT CONTRAST EXAM: MRI BRAIN WITH AND WITHOUT CONTRAST, 01/20/2021 13:02 PM COMPARISON: No prior studies available for comparison. CLINICAL INDICATIONS: 45 years Female rule out meningitis, YUE septic emboli; RELEVANT CLINICAL HISTORY: Katarzyna Vargas?is a 45 y.o.?female?with a past history of IVDU (last used heroin 01/17/21), depression, hepatitis A, B, and C, and known C6-T3 cervical epidural phlegmon (previously evaluated in 03/2020, full strength, recommended abx, and was lost to follow-up) who presented to the [facility] on 01/19/21 as a txfer from an OSH w/ a c/o acute paralysis and loss of sensation in her BLE. MRI w/ and w/o contrast from the OSH revealed progression of the a known epidural phlegmon w/ extension to C1 and new cord compression. CTH was negative for an abscess. BCx at the OSH was positive for GPCs. The patient was taken emergently to the OR for a C2-T2 decompression and fusion and evacuation of the epidural phlegmon. The patient was transferred to the [facility] for continued care.? TECHNIQUE: A series of multisequence, multiplanar images of the brain are obtained both before and after intravenous administration of gadolinium-based contrast using standard protocol. CONTRAST: gadoterate Meglumine (DOTAREM) 5 MMOL/10ML injection 3-60 mL; Route of Administration: Intravenous; Dose: 15 mL. FINDINGS: There is incomplete suppression of fluid signal within many of the cerebral sulci on FLAIR imaging. This finding can be seen with meningitis, but is more commonly related to inhaled anesthetic agents or high oxygen concentration in intubated patient. Subarachnoid blood is also a possible explanation of this, however there is no significant susceptibility artifact on the B0 diffusion weighted images. There is are several small foci of punctate FLAIR hyperintensity within the bilateral frontal subcortical white matter which is very nonspecific. This can be normal for age or due to chronic microvascular change. There is no evidence for acute infarction. No edema pattern or mass effect is seen within the brain. No enhancing brain parenchymal lesions. No intracranial epidural or subdural fluid collections Sellar and parasellar structures are unremarkable. Posterior fossa is unremarkable. Ventricles and sulci are within normal limits. There is edema and enhancement in the left parietal occipital scalp laterally. There is mild fluid signal in the mastoid air cells bilaterally. Paranasal sinuses are generally clear. Orbits appear unremarkable. According to the electronic medical record, patient recently underwent emergent decompressive surgery in the cervical spine with evacuation of epidural phlegmon/abscess is identified on outside imaging. On the current brain MRI, there is partial visualization of cervical spinal fusion hardware extending from C2 inferiorly. There appears to be a ventral epidural fluid collection extending from C1 inferiorly. This measures up to 7 mm in thickness on series 17 image 92 and contributes to severe thecal sac effacement and some degree of cord compression at C1 and C2. IMPRESSION: Partially visualized changes related to recent multilevel decompressive laminectomy in the cervical spine for evacuation of an epidural abscess/phlegmon, and multilevel instrumented fusion. There is partial visualization of a ventral epidural fluid collection extending between C1 and C3 which effaces the ventral thecal sac and compresses the spinal cord. This may reflect residual abscess. Please correlate with available outside spinal imaging, and consider repeating dedicated spine imaging to better evaluate this. No acute infarct, hemorrhage or enhancing lesion in the brain. Incomplete suppression of FLAIR signal within the cerebral sulci which is most commonly related to inhaled anesthetics and or high oxygenation in an intubated patient, although can also be seen with meningitis. If there is a high clinical suspicion for meningitis, correlation with CSF sampling is recommended. Normal [facility] MRI PLAIN FILM FOR NEURO EXA 01-20-2021 MRI PLAIN FILM FOR NEURO EXAM EXAM: MRI PLAIN FILM FOR NEURO EXAM, 01/20/2021 09:24 AM COMPARISON: No prior studies available for comparison. CLINICAL INDICATIONS: Clearance for MRI B FINDINGS 5 images obtained. AP and lateral radiographs of the skull, with AP radiographs of the chest abdomen and pelvis were obtained. A temperature probe is noted overlying the pelvis. Recent surgical changes are noted from cervical fixation, with posterior fixation extending from C2 through 6 T2. Cutaneous staple lines and surgical drains are noted. There is no radiopaque foreign body in the skull. No radiopaque foreign body or an implantable device within the chest. The lungs are clear. Endotracheal tube is noted. An enteric tube is noted, with tip and side-port in the stomach. Surgical clips are noted in the right upper quadrant, likely from prior cholecystectomy. No additional radiopaque foreign body or implantable device is noted within the abdomen/pelvis. No acute osseous abnormality. Degenerative changes of the spine. IMPRESSION: Recent surgical changes in the cervical spine, as noted above No findings to preclude MRI. Normal [facility] PHOSPHATE, INORGANICon 01-20 Phosphorous 1.3 mg/dL Low 2.2-4.6 [facility] Comment on above: Performed By: #### X M #### [facility] (DEFAULT) [address] [place] [address] XR CHEST PORTABLEon 01-21-20 XR CHEST PORTABLE EXAM: XR CHEST RUSSEL BLE, 01/20/2021 16:15 PM COMPARISON: April 20, 2020 CLINICAL INDICATIONS: resp failure RELEVANT CLINICAL HISTORY: FINDINGS: (Adequate technique) Implanted Devices: Probable surgical drains overlying the base of the neck associated with recent cervicothoracic fixation surgery. Thorax: Partially visualized fixation across the cervicothoracic junction. Lungs are clear. No pneumothorax, consolidation or pleural effusion. Normal cardiac and mediastinal silhouettes. IMPRESSION: No active disease in the chest. Normal [facility] ABORH TYPE RECONFIRMATIONon 01-19-2021 ABO/RH(D) TYPE Negative Normal [facility] Comment on above: Performed By: #### T YPEC #### [facility] (DEFAULT) [address] [address] ACID FAST CULTURE, TISSUEon 01-19-2021 Bacteria identified Cx Nom (Unsp spec) NO GROWTH DAY 42 OF 42 Normal [facility] Comment on above: Performed By: #### T YPEC #### [facility] (DEFAULT) [address] [address] Fluorochrome Stain No acid Fast Bacillu s Seen Normal [facility] Comment on above: Performed By: #### T YPEC #### [facility] (DEFAULT) [address] [address] ANAEROBE CULTUREon Bacteria identified Cx Nom (Unsp spec) No anaerobic growth Normal [facility] Comment on above: Order Comment: Colle ct fluids or tissues in a sterile container. If collecting swabs, must be collected in a Port-A-Cul tube. Performed By: #### T YPEC #### [facility] (DEFAULT) [address] [address] BACTERIAL CULTURE AND DIRECT SMEAR, LESION, TISSUE, DEVICEon 01-19-2021 Ceftaroline [Susceptibility] 0.5 ug/mL Invalid Interpretation Code [facility] Comment on above: Performed By: #### G EN #### [facility] (DEFAULT) [address] [address] Clindamycin [Susceptibility] 0.25 ug/mL Invalid Interpretation Code Susceptible <=0.5 ug/mL, Intermediate >.5 ug/mL, Resistant >2 ug/mL [facility] Comment on above: Performed By: #### G EN #### [facility] (DEFAULT) [address] [address] Oxacillin [Susceptibility] by Minimum inhibitory concentration (CHLOE) >=[address] [facility] Comment on above: Result Comment: Cont act Isolation is NOT required for inpatients with Methicillin Resistant Staphylococcus aureus (MRSA), use standard precautions and follow the isolation policy in regards to any additional need for isolation (eg. open draining wounds). Performed By: #### G EN #### [facility] (DEFAULT) [address] [address] Rifampin [Susceptibility] by Minimum inhibitory concentration (CHLOE) <=0.5 Invalid Interpretation Code Susceptible <=1 ug/mL, Intermediate >1 ug/mL, Resistant >2 ug/mL [facility] Comment on above: Result Comment: Rifa mpin must never be used as monotherapy for Staphylococcal infection because of the rapid emergence of resistance. Performed By: #### G EN #### [facility] (DEFAULT) [address] [place] [address] Tetracycline [Susceptibility] >=16 Resistant Susceptible <=4 ug/mL, Intermediate >4 ug/mL, Resistant >8 ug/mL [facility] Comment on above: Result Comment: Doxy cycline/minocycline S. aureus susceptibility can be inferred from the tetracycline CHLOE when tetracycline susceptible Performed By: #### G EN #### [facility] (DEFAULT) [address] [place] [address] Trimethoprim+Sulfamet hoxazole [Susceptibility] <=10 Invalid Interpretation Code Susceptible <=40 ug/mL, Resistant >40 ug/mL [facility] Comment on above: Performed By: #### G EN #### [facility] (DEFAULT) [address] [place] [address] Vancomycin [Susceptibility] 1 ug/mL Invalid Interpretation Code Susceptible <=4 ug/mL, Intermediate >4 ug/mL, Resistant >16 ug/mL [facility] Comment on above: Performed By: #### G EN #### [facility] (DEFAULT) [address] [address] BETA HCG, QUANT, BLOODon HCG (Quant) Serum <2.6 Normal [facility] Comment on above: Result Comment: Non- : <10 mIU/mL Postmenopause: <10 mIU/mL Male: <10 mIU/mL FEMALE GESTATIONAL AGE 2-4 Weeks: 39.1-8,388 mIU/mL 5-6 Weeks: 861-88,769 mIU/mL 6-8 Weeks: 8,636-218,085 mIU/mL 8-10 Weeks: 18,700-244,467 mIU/mL 10-12 Weeks: 23,143-181,899 mIU/mL 13-27 Weeks: 6,303-97,171 mIU/mL 24-40 Weeks: 4,360-74,883 mIU/mL Test results cannot be interpreted as absolute evidence for the presence or absence of malignant disease. Performed By: #### C HM7, MGO, IPB #### [facility] (DEFAULT) [address] [address] BKR GRAM POSITIVE VERIGENESo n 01-19-2021 Gram Positive Verigenes Detected Abnormal Invalid [facility] Comment on above: Order Comment: 2 Bot tles (1 Set - consists of 1 Aerobic (blue) bottle and 1 Anaerobic (purple) bottle) -1st Peripheral DrawFor syringe method draw:If able to obtain adequate sample (20 ml) inoculate anaerobic bottle firstIf inadequate sample obtained (less than 20 ml) inoculate aerobic bottle firstFor vacutainer method draw: Fill aerobic bottle first, then anaerobicThis test was performed using a multiplex gram- positive blood culture nucleic acid method for the following bacterial targets: Staphylococcus aureus, S. epidermidis,S. lugdunensis, other Staphylococcus species, Enterococcus faecalis, Enterococcus faecium, Streptococcus agalactiae, Streptococcus anginosus group, S. pneumoniae,S. pyogenes, other Streptococcus species, mecA (methicillin resistance), Karlee/B (vancomycin resistance). Negative results do not preclude an infection caused by low concentration of these organisms below the limit of detection, or other bacteria or yeast not screened by this test. For mixed cultures containing gram-positive bacteria and other organisms, the test may not identify all the detectable organisms in the specimen depending upon the concentration of each target present. Results should be used in conjunction with other clinical and laboratory findings. Performed By: #### T YPEC #### [facility] (DEFAULT) [address] [address] mecA Detected Abnormal Not Detected [facility] Comment on above: Order Comment: 2 Bot tles (1 Set - consists of 1 Aerobic (blue) bottle and 1 Anaerobic (purple) bottle) -1st Peripheral DrawFor syringe method draw:If able to obtain adequate sample (20 ml) inoculate anaerobic bottle firstIf inadequate sample obtained (less than 20 ml) inoculate aerobic bottle firstFor vacutainer method draw: Fill aerobic bottle first, then anaerobicThis test was performed using a multiplex gram- positive blood culture nucleic acid method for the following bacterial targets: Staphylococcus aureus, S. epidermidis,S. lugdunensis, other Staphylococcus species, Enterococcus faecalis, Enterococcus faecium, Streptococcus agalactiae, Streptococcus anginosus group, S. pneumoniae,S. pyogenes, other Streptococcus species, mecA (methicillin resistance), Karlee/B (vancomycin resistance). Negative results do not preclude an infection caused by low concentration of these organisms below the limit of detection, or other bacteria or yeast not screened by this test. For mixed cultures containing gram-positive bacteria and other organisms, the test may not identify all the detectable organisms in the specimen depending upon the concentration of each target present. Results should be used in conjunction with other clinical and laboratory findings. Result Comment: Cont act Isolation is NOT required for inpatients with Methicillin Resistant Staphylococcus aureus (MRSA), use standard precautions and follow the isolation policy in regards to any additional need for isolation (eg. open draining wounds) Performed By: #### T YPEC #### [facility] (DEFAULT) [address] [place] [address] BLOOD CULTUREon 01-19-2021 Bacteria identified Cx Nom (Unsp spec) Normal [facility] Comment on above: Order Comment: 2 Bot tles (1 Set - consists of 1 Aerobic (blue) bottle and 1 Anaerobic (purple) bottle) -1st Peripheral DrawFor syringe method draw:If able to obtain adequate sample (20 ml) inoculate anaerobic bottle firstIf inadequate sample obtained (less than 20 ml) inoculate aerobic bottle firstFor vacutainer method draw: Fill aerobic bottle first, then anaerobic Result Comment: Grow th [id number] RESISTANT STAPHYLOCOCCUS AUREUSMETHICILLIN RESISTANT STAPHYLOCOCCUS AUREUS Methicillin Resistant Staphylococcus aureus Refer to specimen [id number] on 01/19/21 for susceptibilities. Performed By: #### T YPEC #### [facility] (DEFAULT) [address] [place] [address] Clindamycin [Susceptibility] 0.25 ug/mL Invalid Interpretation Code [facility] Comment on above: Order Comment: 2 Bot tles (1 Set - consists of 1 Aerobic (blue) bottle and 1 Anaerobic (purple) bottle) -1st Peripheral DrawFor syringe method draw:If able to obtain adequate sample (20 ml) inoculate anaerobic bottle firstIf inadequate sample obtained (less than 20 ml) inoculate aerobic bottle firstFor vacutainer method draw: Fill aerobic bottle first, then anaerobic Performed By: #### T YPEC #### [facility] (DEFAULT) [address] [address] Daptomycin [Susceptibility] 0.25 ug/mL Invalid Interpretation Code [facility] Comment on above: Order Comment: 2 Bot tles (1 Set - consists of 1 Aerobic (blue) bottle and 1 Anaerobic (purple) bottle) -1st Peripheral DrawFor syringe method draw:If able to obtain adequate sample (20 ml) inoculate anaerobic bottle firstIf inadequate sample obtained (less than 20 ml) inoculate aerobic bottle firstFor vacutainer method draw: Fill aerobic bottle first, then anaerobic Performed By: #### T YPEC #### [facility] (DEFAULT) [address] [address] Oxacillin [Susceptibility] by Minimum inhibitory concentration (CHLOE) >=[address] [facility] Comment on above: Order Comment: 2 Bot tles (1 Set - consists of 1 Aerobic (blue) bottle and 1 Anaerobic (purple) bottle) -1st Peripheral DrawFor syringe method draw:If able to obtain adequate sample (20 ml) inoculate anaerobic bottle firstIf inadequate sample obtained (less than 20 ml) inoculate aerobic bottle firstFor vacutainer method draw: Fill aerobic bottle first, then anaerobic Result Comment: Cont act Isolation is NOT required for inpatients with Methicillin Resistant Staphylococcus aureus (MRSA), use standard precautions and follow the isolation policy in regards to any additional need for isolation (eg. open draining wounds). Performed By: #### T YPEC #### [facility] (DEFAULT) [address] [address] Penicillin [Susceptibility] >=0.[address] [facility] Comment on above: Order Comment: 2 Bot tles (1 Set - consists of 1 Aerobic (blue) bottle and 1 Anaerobic (purple) bottle) -1st Peripheral DrawFor syringe method draw:If able to obtain adequate sample (20 ml) inoculate anaerobic bottle firstIf inadequate sample obtained (less than 20 ml) inoculate aerobic bottle firstFor vacutainer method draw: Fill aerobic bottle first, then anaerobic Performed By: #### T YPEC #### [facility] (DEFAULT) [address] [address] Rifampin [Susceptibility] by Minimum inhibitory concentration (CHLOE) <=0.[address] [facility] Comment on above: Order Comment: 2 Bot tles (1 Set - consists of 1 Aerobic (blue) bottle and 1 Anaerobic (purple) bottle) -1st Peripheral DrawFor syringe method draw:If able to obtain adequate sample (20 ml) inoculate anaerobic bottle firstIf inadequate sample obtained (less than 20 ml) inoculate aerobic bottle firstFor vacutainer method draw: Fill aerobic bottle first, then anaerobic Result Comment: Rifa mpin must never be used as monotherapy for Staphylococcal infection because of the rapid emergence of resistance. Performed By: #### T YPEC #### [facility] (DEFAULT) [address] [address] Tetracycline [Susceptibility] >=[address] [facility] Comment on above: Order Comment: 2 Bot tles (1 Set - consists of 1 Aerobic (blue) bottle and 1 Anaerobic (purple) bottle) -1st Peripheral DrawFor syringe method draw:If able to obtain adequate sample (20 ml) inoculate anaerobic bottle firstIf inadequate sample obtained (less than 20 ml) inoculate aerobic bottle firstFor vacutainer method draw: Fill aerobic bottle first, then anaerobic Result Comment: Doxy cycline/minocycline S. aureus susceptibility can be inferred from the tetracycline CHLOE when tetracycline susceptible Performed By: #### T YPEC #### [facility] (DEFAULT) [address] [address] Trimethoprim+Sulfamet hoxazole [Susceptibility] <=[address] [facility] Comment on above: Order Comment: 2 Bot tles (1 Set - consists of 1 Aerobic (blue) bottle and 1 Anaerobic (purple) bottle) -1st Peripheral DrawFor syringe method draw:If able to obtain adequate sample (20 ml) inoculate anaerobic bottle firstIf inadequate sample obtained (less than 20 ml) inoculate aerobic bottle firstFor vacutainer method draw: Fill aerobic bottle first, then anaerobic Performed By: #### T YPEC #### [facility] (DEFAULT) [address] [place] [address] Vancomycin [Susceptibility] 1 ug/mL Invalid Interpretation Code [facility] Comment on above: Order Comment: 2 Bot tles (1 Set - consists of 1 Aerobic (blue) bottle and 1 Anaerobic (purple) bottle) -1st Peripheral DrawFor syringe method draw:If able to obtain adequate sample (20 ml) inoculate anaerobic bottle firstIf inadequate sample obtained (less than 20 ml) inoculate aerobic bottle firstFor vacutainer method draw: Fill aerobic bottle first, then anaerobic Performed By: #### T YPEC #### [facility] (DEFAULT) [address] [place] [address] CALCIUMon 01-19-2021 Calcium [Mass/Vol] 7.8 mg/dL Low 8.6-10.5 [facility] Comment on above: Performed By: #### Rhonda ASALL #### [facility] (DEFAULT) [address] [place] [address] CBC AND ELECTRONIC DIFFon Basophils (Bld) [#/Vol] 10*3/uL Normal 0.00-0.15 [facility] Comment on above: Performed By: #### HUMBERTO REESE, IPB #### [facility] (DEFAULT) [address] [place] [address] Basophils/100 WBC (Bld) 0.1 % Normal [facility] Comment on above: Performed By: #### Alice HMSwapnil MGKiera, IPB #### [facility] (DEFAULT) [address] [place] [address] DIFF STATUS Electronic Differential Normal [facility] Comment on above: Performed By: #### Alice HM7HUMBERTO, IPB #### [facility] (DEFAULT) [address] [place] [address] Eosinophils (Bld) [#/Vol] 10*3/uL Normal 0.00-0.42 [facility] Comment on above: Performed By: #### HUMBERTO REESE, IPB #### [facility] (DEFAULT) [address] [place] [address] Eosinophils/100 WBC (Bld) 0.0 % Normal [facility] Comment on above: Performed By: #### HUMBERTO REESE, IPB #### [facility] (DEFAULT) [address] [place] [address] Hematocrit (Bld) [Volume fraction] 28.3 % Low 34.9-44.3 [facility] Comment on above: Performed By: #### HUMBERTO REESE, IPB #### [facility] (DEFAULT) [address] [place] [address] Hemoglobin (Bld) [Mass/Vol] 10.0 g/dL Low 11.4-15.2 [facility] Comment on above: Performed By: #### HUMBERTO REESE, IPB #### [facility] (DEFAULT) [address] [place] [address] Immature Grans % 0.4 % Normal [facility] Comment on above: Performed By: #### HUMBERTO REESE, IPB #### [facility] (DEFAULT) [address] [place] [address] Immature Grans Absolute 0.05 K/uL Normal <=0.09 [facility] Comment on above: Performed By: #### HUMBERTO REESE, IPB #### [facility] (DEFAULT) [address] [place] [address] Lymphocytes (Bld) [#/Vol] 0.62 10*3/uL Low 1.16-3.51 [facility] Comment on above: Performed By: #### HUMBERTO REESE, IPB #### [facility] (DEFAULT) [address] [place] [address] Lymphocytes/100 WBC (Bld) 4.5 % Normal [facility] Comment on above: Performed By: #### HUMBERTO REESE, IPB #### [facility] (DEFAULT) [address] [place] [address] MCV (RBC) [Entitic vol] 88.7 fL Normal 79.6-97.7 [facility] Comment on above: Performed By: #### HUMBERTO REESE, IPB #### [facility] (DEFAULT) [address] [place] [address] Mean Cell Hgb 31.3 pg Normal 25.9-33.9 [facility] Comment on above: Performed By: #### HUMBERTO REESE, IPB #### [facility] (DEFAULT) [address] [place] [address] Mean Cell Hgb Conc 35.3 g/dL Normal 31.4-35.9 [facility] Comment on above: Performed By: #### HUMBERTO REESE, IPB #### [facility] (DEFAULT) [address] [place] [address] Monocytes (Bld) [#/Vol] 0.65 10*3/uL Normal 0.22-0.87 [facility] Comment on above: Performed By: #### HUMBERTO REESE, IPB #### [facility] (DEFAULT) [address] [place] [address] Monocytes/100 WBC (Bld) 4.7 % Normal [facility] Comment on above: Performed By: #### HUMBERTO REESE, IPB #### [facility] (DEFAULT) [address] [place] [address] Nucleated RBC 0.0 /100 WBC Normal <=0.2 [facility] Comment on above: Performed By: #### HUMBERTO REESE, IPB #### [facility] (DEFAULT) [address] [place] [address] Platelet mean volume (Bld) [Entitic vol] 9.6 fL Normal 8.5-12.2 [facility] Comment on above: Performed By: #### Alice STEEL MGO, IPB #### [facility] (DEFAULT) [address] [place] [address] Platelets (Bld) [#/Vol] 214 10*3/uL Normal 150-393 [facility] Comment on above: Performed By: #### Alice STEEL MGO, IPB #### [facility] (DEFAULT) [address] [place] [address] RBC (Bld) [#/Vol] 3.19 10*6/uL Low 3.91-5.04 [facility] Comment on above: Performed By: #### HUMBERTO REESE, IPB #### [facility] (DEFAULT) [address] [place] [address] RBC Distribution 14.0 % Normal 10.8-14.9 [facility] Comment on above: Performed By: #### Alice STEEL MGO, IPB #### [facility] (DEFAULT) [address] [place] [address] Segs + Bands Auto 90.3 % Normal [facility] Comment on above: Performed By: #### Alice STEEL MGO, IPB #### [facility] (DEFAULT) [address] [place] [address] Segs + Bands,Absolute Auto 12.36 K/uL High 1.64-7.28 [facility] Comment on above: Performed By: #### Alice STEEL MGO, IPB #### [facility] (DEFAULT) [address] [place] [address] WBC (Bld) [#/Vol] 13.69 10*3/uL High 3.99-11.19 [facility] Comment on above: Performed By: #### Alice HM7, MGO, IPB #### [facility] (DEFAULT) [address] [place] [address] Basophils (Bld) [#/Vol] 10*3/uL Normal 0.00-0.15 [facility] Comment on above: Performed By: #### T YPEC #### [facility] (DEFAULT) [address] [address] Basophils/100 WBC (Bld) 0.2 % Normal [facility] Comment on above: Performed By: #### T YPEC #### [facility] (DEFAULT) [address] [address] DIFF STATUS Electronic Differential Normal [facility] Comment on above: Performed By: #### T YPEC #### [facility] (DEFAULT) [address] [address] Eosinophils (Bld) [#/Vol] 10*3/uL Normal 0.00-0.42 [facility] Comment on above: Performed By: #### T YPEC #### [facility] (DEFAULT) [address] [address] Eosinophils/100 WBC (Bld) 0.0 % Normal [facility] Comment on above: Performed By: #### T YPEC #### [facility] (DEFAULT) [address] [address] Hematocrit (Bld) [Volume fraction] 29.2 % Low 34.9-44.3 [facility] Comment on above: Performed By: #### T YPEC #### [facility] (DEFAULT) [address] [address] Hemoglobin (Bld) [Mass/Vol] 10.3 g/dL Low 11.4-15.2 [facility] Comment on above: Performed By: #### T YPEC #### [facility] (DEFAULT) [address] [address] Immature Grans % 0.8 % Normal [facility] Comment on above: Performed By: #### T YPEC #### [facility] (DEFAULT) [address] [address] Immature Grans Absolute 0.07 K/uL Normal <=0.09 [facility] Comment on above: Performed By: #### T YPEC #### [facility] (DEFAULT) [address] [address] Lymphocytes (Bld) [#/Vol] 0.55 10*3/uL Low 1.16-3.51 [facility] Comment on above: Performed By: #### T YPEC #### [facility] (DEFAULT) [address] [address] Lymphocytes/100 WBC (Bld) 5.9 % Normal [facility] Comment on above: Performed By: #### T YPEC #### [facility] (DEFAULT) [address] [address] MCV (RBC) [Entitic vol] 87.4 fL Normal 79.6-97.7 [facility] Comment on above: Performed By: #### T YPEC #### [facility] (DEFAULT) [address] [address] Mean Cell Hgb 30.8 pg Normal 25.9-33.9 [facility] Comment on above: Performed By: #### T YPEC #### [facility] (DEFAULT) [address] [address] Mean Cell Hgb Conc 35.3 g/dL Normal 31.4-35.9 [facility] Comment on above: Performed By: #### T YPEC #### [facility] (DEFAULT) [address] [address] Monocytes (Bld) [#/Vol] 0.86 10*3/uL Normal 0.22-0.87 [facility] Comment on above: Performed By: #### T YPEC #### [facility] (DEFAULT) [address] [address] Monocytes/100 WBC (Bld) 9.3 % Normal [facility] Comment on above: Performed By: #### T YPEC #### [facility] (DEFAULT) [address] [address] Nucleated RBC 0.0 /100 WBC Normal <=0.2 [facility] Comment on above: Result Comment: This is an appended report. These results have been appended to a previously preliminary verified report. Performed By: #### T YPEC #### [facility] (DEFAULT) [address] [address] Platelet mean volume (Bld) [Entitic vol] 9.5 fL Normal 8.5-12.2 [facility] Comment on above: Performed By: #### T YPEC #### [facility] (DEFAULT) [address] [address] Platelets (Bld) [#/Vol] 168 10*3/uL Normal 150-393 [facility] Comment on above: Performed By: #### T YPEC #### [facility] (DEFAULT) [address] [address] RBC (Bld) [#/Vol] 3.34 10*6/uL Low 3.91-5.04 [facility] Comment on above: Performed By: #### T YPEC #### [facility] (DEFAULT) [address] [address] RBC Distribution 14.1 % Normal 10.8-14.9 [facility] Comment on above: Performed By: #### T YPEC #### [facility] (DEFAULT) [address] [address] Segs + Bands Auto 83.8 % Normal [facility] Comment on above: Performed By: #### T YPEC #### [facility] (DEFAULT) [address] [address] Segs + Bands,Absolute Auto 7.76 K/uL High 1.64-7.28 [facility] Comment on above: Performed By: #### T YPEC #### [facility] (DEFAULT) [address] [address] WBC (Bld) [#/Vol] 9.26 10*3/uL Normal 3.99-11.19 [facility] Comment on above: Performed By: #### T YPEC #### [facility] (DEFAULT) [address] [place] [address] CHEM 7 (LYTES,BUN,CREA,GLUC) on 01-19-2021 Anion gap [Moles/Vol] 12 mmol/L Normal 7-17 [facility] Comment on above: Performed By: #### T YPEC #### [facility] (DEFAULT) [address] [place] [address] Chloride [Moles/Vol] 98 mmol/L Normal 98-108 [facility] Comment on above: Performed By: #### T YPEC #### [facility] (DEFAULT) [address] [place] [address]74 CO2 [Moles/Vol] 24 mmol/L Normal 22-30 [facility] Comment on above: Performed By: #### T YPEC #### [facility] (DEFAULT) [address] [address] Creatinine [Mass/Vol] 0.55 mg/dL Normal 0.50-1.20 [facility] Comment on above: Performed By: #### T YPEC #### [facility] (DEFAULT) [address] [address] EST GFR, >=60 Normal >=60 [facility] Comment on above: Performed By: #### T YPEC #### [facility] (DEFAULT) [address] [address] EST GFR,Non >=60 Normal >=60 [facility] Comment on above: Performed By: #### T YPEC #### [facility] (DEFAULT) [address] [place] [address] Glucose [Mass/Vol] 147 mg/dL High 70-99 [facility] Comment on above: Performed By: #### T YPEC #### [facility] (DEFAULT) [address] [place] [address] Osmolality [Osmolality] 277 mosm/kg Low 278-305 [facility] Comment on above: Performed By: #### T YPEC #### [facility] (DEFAULT) [address] [place] [address] Potassium [Moles/Vol] 3.7 mmol/L Normal 3.5-5.0 [facility] Comment on above: Performed By: #### T YPEC #### [facility] (DEFAULT) [address] [place] [address] Sodium [Moles/Vol] 130 mmol/L Low 133-143 [facility] Comment on above: Performed By: #### T YPEC #### [facility] (DEFAULT) [address] [place] [address]75 Urea nitrogen [Mass/Vol] 14 mg/dL Normal 7-22 [facility] Comment on above: Performed By: #### T YPEC #### [facility] (DEFAULT) [address] [place] [address]65 Urea nitrogen/Creatinine [Mass ratio] 25 mg/mg Normal [facility] Comment on above: Performed By: #### T YPEC #### [facility] (DEFAULT) [address] [place] [address] [facility] 7 - EDon 01-19-2021 Anion gap [Moles/Vol] 10 mmol/L Normal 7-17 [facility] Comment on above: Performed By: #### Rhonda ANDERSEN #### [facility] (DEFAULT) [address] [place] [address] Chloride [Moles/Vol] 96 mmol/L Low 98-108 [facility] Comment on above: Performed By: #### G GANESH #### [facility] (DEFAULT) [address] [place] [address] CO2 [Moles/Vol] 23 mmol/L Normal 22-30 [facility] Comment on above: Performed By: #### G GANESH #### [facility] (DEFAULT) [address] [place] [address] Creatinine [Mass/Vol] 0.45 mg/dL Low 0.50-1.20 [facility] Comment on above: Performed By: #### G GANESH #### [facility] (DEFAULT) [address] [address] EST GFR, >=60 Normal >=60 [facility] Comment on above: Performed By: #### G GANESH #### [facility] (DEFAULT) [address] [address] EST GFR,Non >=60 Normal >=60 [facility] Comment on above: Performed By: #### G GANESH #### [facility] (DEFAULT) [address] [address] Glucose [Mass/Vol] 123 mg/dL High 70-99 [facility] Comment on above: Performed By: #### G GANESH #### [facility] (DEFAULT) [address] [address] Osmolality [Osmolality] 267 mosm/kg Low 278-305 [facility] Comment on above: Performed By: #### G GANESH #### [facility] (DEFAULT) [address] [address] Potassium [Moles/Vol] 3.6 mmol/L Normal 3.5-5.0 [facility] Comment on above: Performed By: #### G GANESH #### [facility] (DEFAULT) [address] [address] Sodium [Moles/Vol] 125 mmol/L Low 133-143 [facility] Comment on above: Performed By: #### G GANESH #### [facility] (DEFAULT) [address] [place] [address]647 Urea nitrogen [Mass/Vol] 16 mg/dL Normal 7-22 [facility] Comment on above: Performed By: #### Rhonda ANDERSEN #### [facility] (DEFAULT) [address] [place] [address] Urea nitrogen/Creatinine [Mass ratio] 36 mg/mg Normal [facility] Comment on above: Performed By: #### Rhonda ANDERSEN #### [facility] (DEFAULT) [address] [place] [address] FERRITINon 01-19-2021 Ferritin [Mass/Vol] 278.0 ng/mL Normal 10.0-291.0 [facility] Comment on above: Performed By: #### C HM7, MGO, IPB #### [facility] (DEFAULT) [address] [place] [address] FUNGUS CULTUREon 01-19-2021 Bacteria identified Cx Nom (Unsp spec) NO GROWTH DAY 28 OF Normal [facility] Comment on above: Performed By: #### T YPEC #### [facility] (DEFAULT) [address] [place] [address] HEPATIC FUNCTION PANELon Albumin [Mass/Vol] 3.0 g/dL Low 3.5-5.0 [facility] Comment on above: Performed By: #### Rhonda ANDERSEN #### [facility] (DEFAULT) [address] [place] [address] ALP [Catalytic activity/Vol] 90 U/L Normal 32-126 [facility] Comment on above: Performed By: #### Rhonda ANDERSEN #### [facility] (DEFAULT) [address] [place] [address]19 ALT [Catalytic activity/Vol] 21 U/L Normal 9-48 [facility] Comment on above: Performed By: #### Rhonda ANDERSEN #### [facility] (DEFAULT) [address] [place] [address] 93614 AST [Catalytic activity/Vol] 46 U/L High 14-40 [facility] Comment on above: Performed By: #### Rhonda ANDERSEN #### [facility] (DEFAULT) [address] [place] [address] Bilirubin [Mass/Vol] 1.0 mg/dL Normal <1.5 [facility] Comment on above: Performed By: #### Rhonda ANDERSEN #### [facility] (DEFAULT) [address] [place] [address] Bilirubin.indirect [Mass/Vol] 0.2 mg/dL Normal <0.3 [facility] Comment on above: Performed By: #### Rhonda ANDERSEN #### [facility] (DEFAULT) [address] [address] Protein [Mass/Vol] 6.0 g/dL Low 6.4-8.3 [facility] Comment on above: Performed By: #### Rhonda ANDERSEN #### [facility] (DEFAULT) [address] [place] [address] 6[address]95 IRON/IRON BINDING/TRANSFERRI Non 01-19-2021 Iron [Mass/Vol] 12 ug/dL Low 40-174 [facility] Comment on above: Performed By: #### HUMBERTO REESE, IPB #### [facility] (DEFAULT) [address] [place] [address] 93058 Iron Saturation 5 % Low 20-55 [facility] Comment on above: Performed By: #### HUMBERTO REESE, IPB #### [facility] (DEFAULT) [address] [place] [address] 18250 Total Iron Binding Capacity 261 mcg/dL Normal 250-425 [facility] Comment on above: Performed By: #### HUMBERTO REESE, IPB #### [facility] (DEFAULT) [address] [place] [address] 13763 Transferrin [Mass/Vol] 175 mg/dL Low 200-400 [facility] Comment on above: Performed By: #### HUMBERTO REESE, IPB #### [facility] (DEFAULT) [address] [place] [address] MAGNESIUMon 01-19-2021 Magnesium [Mass/Vol] 1.8 mg/dL Normal 1.6-2.6 [facility] Comment on above: Performed By: #### G GANESH #### [facility] (DEFAULT) [address] [place] [address] 99597 NOVEL CORONAVIRUS PCRon 12-23 SARS-CoV-2 (COVID-19) RNA CHACE+probe Ql (Unsp spec) Not detected Normal NOT DETECTED [facility] Comment on above: Order Comment: Viral transport media or BAL specimen - Collection must be done while wearing N-95 mask, eye protection, gown and gloves. Please label ALL specimens as 2019-nCoV rule out and deliver by hand.This test was performed using real time PCR and has been approved for the qualitative detection of SARS-CoV-2 nucleic acid. The test has been authorized by the FDA under an emergency use authorization for use by authorized laboratories. Result Comment: [facility] Negative results do not preclude SARS-CoV-2 infection and should not be used as the sole basis for treatment or other patient management decisions. Optimum specimen types and timing for peak viral levels during infections caused by SARS-CoV-2 has not been determined. The possibility of a false negative result should especially be considered if the patient's recent exposures or clinical presentation suggest that SARS-CoV-2 infection is probable, and diagnostic tests for other causes of illness (e.g., other respiratory illness) are negative. Collection of a new specimen and re-testing may be necessary if the patient is critically ill or clinically deteriorating. Performed By: #### T YPEC #### [facility] (DEFAULT) [address] [place] [address] PHOSPHATE, INORGANICon 01-19 Phosphorous 2.1 mg/dL Low 2.2-4.6 [facility] Comment on above: Performed By: #### G GANESH #### [facility] (DEFAULT) [address] [place] [address] PT,INR,PTTon 01-19-2021 aPTT Coag (Bld) [Time] 37.8 s High 24.0-34.3 [facility] Comment on above: Performed By: #### C HUMBERTO STEEL IPB #### [facility] (DEFAULT) [address] [address] INR Coag (PPP) [Relative time] 1.2 {INR} High 0.9-1.1 [facility] Comment on above: Performed By: #### C HUMBERTO STEEL, MIGUEB #### [facility] (DEFAULT) [address] [place] [address] PT Coag (PPP) [Time] 14.9 s High 11.9-14.2 [facility] Comment on above: Performed By: #### HUMBERTO REESE IPB #### [facility] (DEFAULT) [address] [place] [address] aPTT Coag (Bld) [Time] 41.4 s High 24.0-34.3 [facility] Comment on above: Performed By: #### T YPEC #### [facility] (DEFAULT) [address] [address] INR Coag (PPP) [Relative time] 1.3 {INR} High 0.9-1.1 [facility] Comment on above: Performed By: #### T YPEC #### [facility] (DEFAULT) [address] [place] [address] PT Coag (PPP) [Time] 15.5 s High 11.9-14.2 [facility] Comment on above: Performed By: #### T YPEC #### [facility] (DEFAULT) [address] [address] RAPID HIV-1/HIV-2 AB WITH P2 4 ANTIGENon 01-19-2021 Rapid Hiv-1/Hiv-2 Ab With P24 Antigen Non-Reactive Normal Non Reactive [facility] Comment on above: Performed By: #### T YPEC #### [facility] (DEFAULT) [address] [address] SCREEN: MRSA/MSSAon 01-20-20 21 Methicillin Resistant S. Aureus By Pcr Positive Abnormal Negative [facility] Comment on above: Order Comment: Colle ct with an ESWAB - Anterior Nares for MRSA + MSSAThis test was performed using a real time PCR assay. Results should be interpreted in conjunction with other clinical and laboratory findings. A positive result does not necessarily indicate the presence of viable organism. This test should not be used as a test of cure. For E-swab specimens, this test was developed and its performance characteristics determined by the Clinical Microbiology Laboratory at [facility]. It has not been cleared or approved by the FDA.The laboratory is regulated under CLIA as qualified to perform high-complexity testing. This test is used for clinical purposes. It should not be regarded as investigational or for research. Performed By: #### T YPEC #### [facility] (DEFAULT) [address] [address] Staphylococcus Aureus By Pcr Positive Abnormal Negative [facility] Comment on above: Order Comment: Colle ct with an ESWAB - Anterior Nares for MRSA + MSSAThis test was performed using a real time PCR assay. Results should be interpreted in conjunction with other clinical and laboratory findings. A positive result does not necessarily indicate the presence of viable organism. This test should not be used as a test of cure. For E-swab specimens, this test was developed and its performance characteristics determined by the Clinical Microbiology Laboratory at [facility]. It has not been cleared or approved by the FDA.The laboratory is regulated under CLIA as qualified to perform high-complexity testing. This test is used for clinical purposes. It should not be regarded as investigational or for research. Performed By: #### T YPEC #### [facility] (DEFAULT) [address] [address] SODIUMon 01-19-2021 Sodium [Moles/Vol] 126 mmol/L Low 133-143 [facility] Comment on above: Performed By: #### T YPEC #### [facility] (DEFAULT) [address] [address] Sodium [Moles/Vol] 127 mmol/L Low 133-143 [facility] Comment on above: Performed By: #### C HM7, MGO, IPB #### [facility] (DEFAULT) [address] [place] [address] TYPE AND SCREENon 01-19-2021 ABO/RH(D) TYPE Negative Normal [facility] Comment on above: Result Comment: @ 08:55 by LV1: @01/19/21 09:36 by LV1: Performed By: #### X M #### [facility] (DEFAULT) [address] [place] [address] URINALYSISon 01-19-2021 Appearance (U) Clear Normal Clear [facility] Comment on above: Performed By: #### T YPEC #### [facility] (DEFAULT) [address] [place] [address] Bacteria ABSENT Normal ABSENT [facility] Comment on above: Performed By: #### T YPEC #### [facility] (DEFAULT) [address] [place] [address] Blood Urine Moderate Abnormal Negative [facility] Comment on above: Performed By: #### T YPEC #### [facility] (DEFAULT) [address] [place] [address] Color (U) Yellow Normal Yellow [facility] Comment on above: Performed By: #### T YPEC #### [facility] (DEFAULT) [address] [place] [address] Glucose Ql (U) Negative Normal Negative [facility] Comment on above: Performed By: #### T YPEC #### [facility] (DEFAULT) [address] [address] Ketones Ql (U) Negative Normal Negative [facility] Comment on above: Performed By: #### T YPEC #### [facility] (DEFAULT) [address] [place] [address] Leukocyte esterase Test strip Ql (U) Negative Normal Negative [facility] Comment on above: Performed By: #### T YPEC #### [facility] (DEFAULT) [address] [place] [address] Nitrites Urine Negative Normal Negative [facility] Comment on above: Performed By: #### T YPEC #### [facility] (DEFAULT) [address] [address] pH (U) 6.5 [pH] Normal 5.0-7.0 [facility] Comment on above: Performed By: #### T YPEC #### [facility] (DEFAULT) [address] [address] Protein Urine 30 mg/dL Abnormal Negative [facility] Comment on above: Performed By: #### T YPEC #### [facility] (DEFAULT) [address] [address] RBC Urine 6-9 Abnormal 0-2 [facility] Comment on above: Performed By: #### T YPEC #### [facility] (DEFAULT) [address] [address] Specific [place] Urine 1.039 High 1.001-1.035 [facility] Comment on above: Performed By: #### T YPEC #### [facility] (DEFAULT) [address] [address] Squamous/Epithelial Cells 2-5/hpf = 2+ Normal 1/hpf = 1+, 2-5/hpf = 2+, 0/hpf = 0+, ABSENT [facility] Comment on above: Performed By: #### T YPEC #### [facility] (DEFAULT) [address] [address] Urobilinogen Urine 1.0 E.U./dL Normal 0.2-1.0 [facility] Comment on above: Performed By: #### T YPEC #### [facility] (DEFAULT) [address] [place] [address] WBC Urine 0-5 Normal 0-5 [facility] Comment on above: Performed By: #### T YPEC #### [facility] (DEFAULT) [address] [place] [address] URINE CULTUREon 01-19-2021 Bacteria identified Cx Nom (U) No Growth Normal [facility] Comment on above: Order Comment: Peguero top vacutainer. Urine must be to the fill line to process (4mls). If minimum volume, send urine in a yellow top vacutainer tube. Performed By: #### T YPEC #### [facility] (DEFAULT) [address] [place] [address] XR ABDOMEN 1 VIEWon 01-20-20 21 XR ABDOMEN 1 VIEW EXAM: XR ABDOMEN 1 V IEW, 01/19/2021 16:34 PM COMPARISON: No prior abdominal radiographs available for comparison. CLINICAL INDICATIONS: OG placement FINDINGS: The distal tip and side-port of the orogastric tube are visualized in the stomach body. There is air in the stomach without significant distention seen. Surgical clips are noted in the right upper quadrant from a prior cholecystectomy. No gross free air is identified. The bowel gas pattern is nonobstructive and partially imaged. The lower abdomen/pelvis was excluded. Degenerative changes are identified in the spine and mild lumbar levoscoliosis. IMPRESSION: Appropriate position of the orogastric tube in the stomach. Normal [facility] Chest - Portable APon 2019 Chest - Portable AP ____ Radiology Report Patient: KATARZYNA VARGAS Address: [place] [id number] Date of : 1975 Service Date / Time: 05/01/20135 Visit Number: [id number] Order Number: [id number] Room Number: Attending Physician: Primary Care Physician: Geoff Grant MD Ordering Physician: RASTA CALLOWAY MD Modality: Radiographics Procedure: Chest - Portable AP History / Symptoms: r pic line removal PORTABLE AP CHEST RADIOGRAPH. CLINICAL HISTORY: Right clinical removal COMPARISON: None. FINDINGS: Cardiomediastinal contours within normal limits. No focal consolidative process, pulmonary edema, pleural effusion, or pneumothorax. Osseous structures are intact. IMPRESSION: No acute cardiopulmonary process. Miki Flowers MD Dictation: JAE 05/01/20 0344 [employer] Clippings: POWERSCRIB / [id number] Procedure performed by tech: Shira Hodges [facility] VNOTEon 05-01-2020 [facility] EMERGENCY DEPARTMENT REPORT Patient: KATARZYNA VARGAS Date of : 1975 Unit#: [id number] DOS: 05/01/20 History of Present Illness Initial Date with Physician: May 01, 2020 Initial Time with Physician: 01:38 Chief Compaint Wants PICC line out History of Present Illness This is a 45-year-old female who was transferred by EMS from the local nursing facility wanting her PICC line removed. She reports being at [facility] for about 3 weeks for IV antibiotics and she has been currently getting vancomycin through PICC line they transferred her on Saturday, April 30 2 acute post care and unfortunately they were having issues with pharmacy obtaining her dose of vancomycin and her Suboxone dose. She became upset and then apparently had made threats to the nurse to place needles in her PICC line to end her life patient states that she does not not wish to be in the ECF she wants to be discharged from the ECF she wants her PICC line removed and she is planning on going back home to [facility] for further definitive treatment. She reports to me that she is not suicidal. Patient History Medical History Past Medical History: HTN Surgical History Past Surgical History: Orthopedic Surgery, , Cholecystectomy, Hysterectomy Social History Smoking Status: Light smoker (1-9/day) Hx Alcohol Use: No Hx Substance Use: Yes Substance Use Type: Opiates, Heroin Allergies Allergies: Coded Allergies: No Known Drug Allergies (Unverified , 05/01/20) Home Medications Home Meds Active Scripts Clindamycin Hcl (CLINDAMYCIN HCL) 300 Mg Capsule, 300 MG PO QID, #40 CAP 0 Refills Prov:RASTA CALLOWAY MD 05/01/20 Reported Medications Vancomycin HCl in Dextrose 5 % (Vancomycin 1.5 Gram/500 ml-D5w) 1.5 Gm/500 Ml Plast..bag, 1500 MG IV Q12HR 05/01/20 Tamsulosin Hcl (TAMSULOSIN) 0.4 Mg Cap, 0.4 MG PO DAILY, CAP 05/01/20 Sennosides (SENNOSIDES) 8.6 Mg Tablet, 8.6 MG PO BID, TAB 05/01/20 Polyethylene Glycol 3350 (POLYETHYLENE GLYCOL 3350) 17 Gm Powd.pack, 17 GM PO BID 05/01/20 Nicotine (NICODERM 14 MG) 14 Mg/1 Ea Patch, 14 MG TD DAILY 05/01/20 Melatonin (MELATONIN) 5 Mg Tablet, 5 MG PO HS, TAB 05/01/20 Loperamide Hcl (ANTI-DIARRHEA) 2 Mg Tablet, 2 MG PO Q6HR PRN for DIARRHEA, TAB 05/01/20 Hydroxyzine Hcl (HYDROXYZINE HCL) 10 Mg Tablet, 10 MG PO Q4HR PRN for ANXIETY, TAB 05/01/20 Gabapentin (GABAPENTIN) 300 Mg Capsule, 600 MG PO TID, CAP 05/01/20 Dicyclomine Hcl (DICYCLOMINE HCL) 10 Mg Capsule, 10 MG PO Q6HR, CAP 05/01/20 Buprenorphine Hcl/Naloxone Hcl (SUBOXONE 8 MG-2 MG SL FILM) 1 Each Film, 1 EACH SL Q12HR 05/01/20 Bisacodyl (BISACODYL) 10 Mg Supp.rect, 10 MG RC Q24H PRN for CONSTIPATION, SUP 05/01/20 Albuterol Sulfate (ALBUTEROL SULFATE 2.5 mg/3 ml) 2.5 Mg/3 Ml Vial.neb, 2.5 MG IH Q6H PRN for SHORTNESS OF BREATH, #30 EACH 05/01/20 Review of Systems Constitutional: Negative: Fever, Chills, Sweats, Weakness, Malaise, Other Eyes: Negative Pain, Negative Vision change, Negative Conjunctivae inflammation, Negative Eyelid inflammation, Negative Redness, Negative Other ENT: Negative: Ear pain, Ear discharge, Nose pain, Nose discharge, Nose congestion, Mouth pain, Mouth swelling, Throat pain, Throat swelling, Other Respiratory: Negative: Cough, Dry, Shortness of breath, SOB with exertion, Wheezing, Hemoptysis, Pleuritic Pain, Sputum, Other Cardiovascular: Negative: Chest Pain, Palpitations, Orthopnea, Paroxysmal Noc. Dyspnea, Edema, Lt Headedness, Other Gastrointestinal: Negative: Nausea, Vomiting, Abdominal Pain, Diarrhea, Constipation, Melena, Hematochezia, Other Genitourinary: Negative Dysuria, Negative Frequency, Negative Incontinence, Negative Hematuria, Negative Retention, Negative Flank Pain, Negative Pelvic Pain, Negative Vaginal Bleeding, Negative Discharge, Negative Other Musculoskeletal: Negative ankle pain, Negative arm pain, Negative back pain, Negative elbow pain, Negative foot pain, Negative hand pain, Negative hip pain, Negative leg pain, Negative knee pain, Negative neck pain, Negative shoulder pain, Negative wrist pain, Negative other Skin: Negative Abrasion, Negative Rash, Negative Lesions, Negative Jaundice, Negative Bruising, Negative Laceration, Negative Other Neurological: Negative Weakness, Negative Numbness, Negative Incoordination, Negative Change in speech, Negative Confusion, Negative Seizures, Negative Headache, Negative Other Exam Vital Signs Vital Signs Date Time Temp Pulse Resp B/P (MAP) Pulse Ox O2 Delivery O2 Flow Rate FiO2 05/01/20 01:28 97.7 85 20 128/87 99 Room Air Other Physical Exam Constitutional: Alert and oriented. No distress. EYES: Pupils equal and reactive. No jaundice. ENT: Patient is wearing a mask no difficulty breathing NECK: No JVD. No lymphadenopathy. RESPIRATORY: No distress. No labored respirations. No rales, no wheezes, no rhonchi. No tripod or accessory muscle use. No paradoxical rib movement. CV: Regular rate. No murmurs, no rubs, no gallops. No pulsatile abdominal masses. CHEST: Nontender. GI: Soft, nontender. No masses. No hepatosplenomegaly. SKIN: No rashes. Nontender. MUSCULOSKELTAL: No bony deformity. No joint swelling. Good ROM. NEURO: Gross motor and sensory intact Diagnostic Labs Laboratory Tests Test 05/01/20 01:48 05/01/20 01:54 Urine Opiates Screen Negative Urine Oxycodone Screen Negative (NEGATIVE) Urine Methadone Level Negative (NEGATIVE) Urine Barbiturates Screen Negative (NEGATIVE) Urine Phencyclidine Screen Negative (NEGATIVE) Urine Amphetamines Screen Negative (NEGATIVE) Urine Benzodiazepines Screen Negative (NEGATIVE) Urine Cocaine Screen Negative (NEGATIVE) Urine Cannabinoids Negative (NEGATIVE) Salicylates Level < 1.0 mg/dl (0-20) Acetaminophen Level < 10.0 mcg/mL (10-30) Ethyl Alcohol Level < 10 mg/dL (NONE/0) Exams & Interpretations Portable chest x-ray was reviewed by radiology, I did review the images and agree with the report ED Course Course/Progress I did draw urine drug talk screen and she was evaluated by our mental health provider. It was not deemed that she was actively suicidal with these gestures. I did speak with the patient and she does not wish to have the PICC line in place she wishes to go back to [place]. I did speak with her at length and she understands the risks and the consequences she understands that the bacteremia could get worse that this could seed her heart valves and could cause endocarditis. She reiterates that she understands this. I offered to keep her in the emergency department and have social work contact her and discussed with her and try to find her another alternative to a different group home to continue the IV vancomycin. She declines this option. At this point in time the PICC line was removed I am ordering a chest x-ray just to confirm complete removal the PICC line was measured to 40. Should she change her mind and wish to have further treatment and resume IV antibiotics she can return to any of her local ERs for reevaluation Discussed with: Patient If documented above, the critical care time does not include billable procedures. Impression & Plan Impression & Plan Diagnosis 1 PICC line removal Disposition NELIA CALLOWAY MD May 01, 2020 03:44 Sign dt/tm: 05/01/20 0352 RASTA CALLOWAY MD < > Dict Dr: RASTA CALLOWAY MD Dict dt/tm: 05/01/20 0344 Trans: BZIMMER Trans dt/tm: 05/01/20 0344 ADDE NDUM Addendum: RASTA CALLOWAY MD on 05/01/20 @ 03:54 Addendum Addendum Addendum Portable chest x-ray was preliminarily read by myself I do not see any foreign object along the humerus I do not see any other acute abnormality or any foreign object along the subclavian area or down into the mediastinum no pneumothorax no pleural effusion Addendum signed by RASTA CALLOWAY MD Addendum signed on 05/01/20 0354 D - /RASTA CALLOWAY MD T - /TREVIN Normal [facility] HEPATITIS PROFILEon 05-14-20 19 HEPATITIS C AB Positive Abnormal [facility] HEPATITIS A VIRUS ANTIBODY IGM Negative Normal [facility] HEPATITIS B CORE AB IGM Negative Normal [facility] Comment on above: Result Comment: Test Performed By: [facility] [employer] [address] [place] [address] Pipe Caulker: Sugey Jacinto MD, PhD HEPATITIS B SURFACE ANTIGEN Negative Normal [facility] Comment on above: Result Comment: Test Performed By: [facility] [employer] [address] [place] [address] Pipe Caulker: Sugey Jacinto MD, PhD --- 05/14/19 1056 --- HBsAG previously reported as: Negative RAPID PLASMA REAGINon 2018 RAPID PLASMA REAGIN NONREACTIVE Normal NONREACTIVE [facility] Comment on above: Performed By: #### R IN #### [address] [address] ALCOHOLon 05-11-2019 Ethanol [Mass/Vol] mg/dL Normal [facility] Comment on above: Result Comment: < 3 mg/dl NONE DETECTED 50-100 mg/dl MAY SHOW SIGNS OF INTOXICATION 300-500 mg/dl COMATOSE LEVEL Performed By: #### M N, ALC, HCG #### [facility] [address] [place] [address] CBC with AUTO DIFFon 019 BAS0 % 1.10 % Normal 0-2 [facility] Comment on above: Performed By: #### C BC #### [facility] [address] [facility] [place] [address] Basophils (Bld) [#/Vol] 0.0 10*3/uL Normal 0-0.1 [facility] Comment on above: Performed By: #### C BC #### [facility] [address] [facility] [place] [address] Eosinophils (Bld) [#/Vol] 0.2 10*3/uL Normal 0.0-1.80 [facility] Comment on above: Performed By: #### C BC #### [facility] [address] [facility] [place] [address] Eosinophils/100 WBC (Bld) 3.5 % Normal 0-8 [facility] Comment on above: Performed By: #### C BC #### [facility] [address] [facility] [place] [address] GRAN # 2.0 K/uL Low 2.2-9.1 [facility] Comment on above: Performed By: #### C BC #### [address] [place] [address] GRAN % 46.0 % Normal 42-80 [facility] Comment on above: Performed By: #### C BC #### [address] [place] [address] Hematocrit (Bld) [Volume fraction] 41.6 % Normal 37.0-47.0 [facility] Comment on above: Performed By: #### C BC #### [facility] [address] [facility] [place] [address] Hemoglobin (Bld) [Mass/Vol] 14.5 g/dL Normal 12.0-16.0 [facility] Comment on above: Performed By: #### C BC #### [address] [place] [address] Lymphocytes (Bld) [#/Vol] 1.8 10*3/uL Normal 1.0-4.0 [facility] Comment on above: Performed By: #### C BC #### [facility] [address] [facility] [place] [address] Lymphocytes/100 WBC (Bld) 40.6 % Normal 16-48 [facility] Comment on above: Performed By: #### C BC #### [facility] [address] [facility] [place] [address] MCH (RBC) [Entitic mass] 34.7 g/dL Normal 31.0-36.0 [facility] Comment on above: Performed By: #### C BC #### [facility] [address] [facility] [place] [address] MCV (RBC) [Entitic vol] 92.0 fL Normal 80-97 [facility] Comment on above: Performed By: #### C BC #### [facility] [address] [facility] [place] [address] MEAN CORPUSCULAR HGB 32.0 pg Normal 26.0-32.0 [facility] Comment on above: Performed By: #### C BC #### [facility] [address] [facility] [place] [address] Monocytes (Bld) [#/Vol] 0.4 10*3/uL Normal 0.1-1.7 [facility] Comment on above: Performed By: #### C BC #### [facility] [address] [facility] [place] [address] Monocytes/100 WBC (Bld) 8.8 % Normal 3-9 [facility] Comment on above: Performed By: #### C BC #### [facility] [address] [facility] [place] [address] Platelet mean volume (Bld) [Entitic vol] 8.0 fL Normal 6.6-10.5 [facility] Comment on above: Performed By: #### C BC #### [facility] [address] [facility] [place] [address] Platelets (Bld) [#/Vol] 191 10*3/uL Normal 140-450 [facility] Comment on above: Performed By: #### C BC #### [facility] [address] [facility] [place] [address] RBC (Bld) [#/Vol] 4.52 10*6/uL Normal 4.20-5.50 [facility] Comment on above: Performed By: #### C BC #### [facility] [address] [facility] [place] [address] RED CELL DISTRI WIDTH 13.4 % Normal 11.0-15.5 [facility] Comment on above: Performed By: #### C BC #### [facility] [address] [facility] [place] [address] WBC (Bld) [#/Vol] 4.4 10*3/uL Normal 4.0-11.0 [facility] Comment on above: Performed By: #### C BC #### [facility] [address] [facility] [place] [address] COMPREHENSIVE METABOLIC PANE Moe 05-11-2019 Albumin [Mass/Vol] 3.2 g/dL Normal 3.0-5.0 [facility] Comment on above: Performed By: #### M N, ALC, HCG #### [facility] [address] [facility] [place] [address] Albumin/Globulin [Mass ratio] 0.9 {ratio} Low 1.1-1.8 [facility] Comment on above: Performed By: #### M N, ALC, HCG #### [facility] [address] [facility] [place] [address] ALP [Catalytic activity/Vol] 144 U/L High 45-117 [facility] Comment on above: Performed By: #### M N, ALC, HCG #### [facility] [address] [facility] [place] [address] ALT [Catalytic activity/Vol] 84 U/L High 12-78 [facility] Comment on above: Performed By: #### M N, ALC, HCG #### [facility] [address] [facility] [place] [address] Anion gap [Moles/Vol] 8.0 mmol/L Low 11-23 [facility] [facility] Comment on above: Performed By: #### M N, ALC, HCG #### [facility] [address] [facility] [place] [address] Bilirubin [Mass/Vol] 0.7 mg/dL Normal 0-1.0 [facility] Comment on above: Performed By: #### M N, ALC, HCG #### [facility] [address] [facility] [place] [address] Calcium [Mass/Vol] 8.6 mg/dL Normal 8.5-10.1 [facility] Comment on above: Performed By: #### M N, ALC, HCG #### [facility] [address] [facility] [place] [address] Chloride [Moles/Vol] 105 mmol/L Normal 98-107 [facility] Comment on above: Performed By: #### M N, ALC, HCG #### [facility] [address] [facility] [place] [address] CO2 [Moles/Vol] 30.0 mmol/L Normal 21-32 [facility] Comment on above: Performed By: #### M N, ALC, HCG #### [address] [address] Creatinine [Mass/Vol] 0.70 mg/dL Normal 0.4-1.2 [facility] Comment on above: Performed By: #### M N, ALC, HCG #### [address] [place] [address] GFR AM > 60.0 Normal [facility] Comment on above: Result Comment: THE NORMAL LEVEL OF GFR VARIES ACCORDING TO AGE, SEX, AND BODY SIZE. A GFR LEVEL OF LESS THAN 60 ML/MIN REPRESENTS LOSS OF THE ADULT LEVEL OF NORMAL KIDNEY FUNCTION. Performed By: #### M N, ALC, HCG #### [address] [place] [address] GFR/1.73 sq M.predicted MDRD (S/P/Bld) [Vol rate/Area] mL/min/{1.73_m2} Normal [facility] Comment on above: Performed By: #### M N, ALC, HCG #### [address] [place] [address] Globulin (S) [Mass/Vol] 3.7 g/dL Normal 2.5-4.6 [facility] Comment on above: Performed By: #### M N, ALC, HCG #### [address] [address] Glucose [Mass/Vol] 82 mg/dL Normal 70-100 [facility] Comment on above: Performed By: #### M N, ALC, HCG #### [address] [place] [address] Potassium [Moles/Vol] 3.6 mmol/L Normal 3.6-5.2 [facility] Comment on above: Performed By: #### M N, ALC, HCG #### [address] [address] Protein [Mass/Vol] 6.9 g/dL Normal 6.0-8.3 [facility] Comment on above: Performed By: #### M N, ALC, HCG #### [address] [address] SGOT/AST 64 U/L High 9-34 [facility] Comment on above: Performed By: #### M N, ALC, HCG #### [facility] [address] [place] [address] Sodium [Moles/Vol] 139 mmol/L Normal 136-147 [facility] Comment on above: Performed By: #### M N, ALC, HCG #### [facility] [address] [place] [address] Urea nitrogen [Mass/Vol] 10.0 mg/dL Normal 7-18 [facility] Comment on above: Performed By: #### M N, ALC, HCG #### [facility] [address] [place] [address] ED.PDOCon 05-11-2019 ED.PDOC KATARZYNA VARGAS Female [id number] Attending provider: SAVANNAH STROUD ER [id number] Jimi Trent 1975 44 DOS: 05/11/19 Hx/Exam - History of Present Illness Chief Complaint: DETOX MEDICAL CLEARANCE Symptom Duration: daily heroin use (IV) x several months occasional fentanyl Onset of Symptoms: asymptomatic at this time Quality: desires detox at this time Symptoms Improve with: none Symptoms Worse with: none Assoc Sxs/Pertinent Hx: prior to IV heroin used oral opioids Patient/Family Denies: abd pain/shakes n/v at this time last used 7am today - Review of Systems Constitutional: Denies: Fever, Chills, Sweats, Weakness, Malaise, Weight Gain, Weight Loss, Other Eyes: Denies: Pain, Blurred Vision, Double Vision, Conjunctivae Inflammation, Eyelid Inflammation, Redness, Eye Discharge, Other ENT: Denies: Ear Pain, Ear Discharge, Hearing Impaired, Nose Pain, Nose Discharge, Nose Congestion, Mouth Pain, Mouth Swelling, Throat Pain, Throat Swelling, Other Respiratory: Denies: Cough, Dry, Shortness of Breath, Hemoptysis, SOB with Excertion, Pleuritic Pain, Sputum, Wheezing, Other Cardiovascular: Denies: Chest Pain, Palpitations, Orthopnea, Paroxysmal Noc. Dyspnea, Edema, Light Headedness, Other, 8 Gastrointestinal: Denies: Nausea, Vomiting, Abdominal Pain, Diarrhea, Constipation, Melena, Hematochezia, Other, 9 Genitourinary: Denies: Dysuria, Frequency, Urgency Reproductive: Denies Presumptive Neurological: Denies: Headache, Weakness, Numbness, Incoordination, Change in Speech, Confusion, Seizures, Other Psychiatric: Denies: Anxiety, Depression, Mireya, Dementia, Hallucination, Suicidal Ideation, Other - Physical Exam General Appearance: awake, alert, no apparent distress Eyes: PERRL, EOMI, no scleral icterus Head, Ears, Nose, and Throat: pharynx normal, mucous membranes moist Neck: supple, non-tender Respiratory: lungs clear, no wheezes/rhonchi/rales, no respiratory distress Cardiovascular: regular rate, rhythm, no murmur Abdomen/GI: non tender, soft Extremity: normal range of motion, non-tender, other (track arora arms and hands no abscesses noted) Pulses: Carotid: 1+ Neurologic: no motor/sensory deficits, normal strength Psychiatric: oriented x3, calm, normal affect Skin Exam: warm/dry, normal color Note(s) - Physician Notes Additional Notes, See Orders for Details: 05/11/19 13:21 elevation of LFTs noted medically cleared at this time for detox. EKG - EKG EKG Interpretation: Not Applicable Discharge Screen - Discharge Discharge Problem: Heroin abuse Disposition: COMM QUEST Condition: Stable Referrals: provider (Unknown),Unlisted [Primary Care Provider] - Dictated By: Jimi Trent MD Dictated Date/Time:05/11/19 1204 Electronically Signed Date/Time: 05/11/19 1405 Normal [facility] HCG SERUM,QUALITATIVEon 04-23 HCG SERUM,QUALITATIVE Negative Normal [facility] Comment on above: Performed By: #### M N, ALC, HCG #### [address] [address] Office Visiton 11-19-2016 Dietary management education, guidance, and counseling (procedure) yes Invalid Interpretation Code [employer] Work Phone: Documentation of current medications (procedure) Done Invalid Interpretation Code [employer] Work Phone: Smoking cessation education (procedure) yes Invalid Interpretation Code [employer] Work Phone: Tobacco smoking status NHIS Never Invalid Interpretation Code [employer] Work Phone: Tobacco use [facility] Current every day smoker Invali d Interpretation Code [employer] Work Phone: Lab Report: Basic Metabolic Profile (BMP)on 08-29-2016 Anion gap 9 mmol/L Invalid Interpretation Code 5-15 [employer] [facility] Work Phone: [phone] BUN/Creatinine Ratio 12.2 RATIO Invalid Interpretation Code 10-20 [employer] [facility] Work Phone: [phone] Calcium 7.7 mg/dL Low 8.5-10.1 [employer] [facility] Work Phone: [phone] Chloride 98 mmol/L Invalid Interpretation Code 98-107 [facility] Work Phone: [phone] CO2 27.0 mmol/L Invalid Interpretation Code 21.0-32.0 [facility] Work Phone: [phone] Creatinine 92.00 mL/min Invalid Interpretation Code [facility] Work Phone: [phone] Creatinine 0.82 mg/dL Invalid Interpretation Code 0.55-1.02 [facility] Work Phone: [phone] eGFR (non-black) 99 mL/min/{1.73_m2} Invalid Interpretation Code >60 [employer] [facility] Work Phone: [phone] eGFR (non-black) 82 mL/min/{1.73_m2} Invalid Interpretation Code >60 [employer] [facility] Work Phone: Glucose 109 mg/dL Invalid Interpretation Code 70-110 [employer] [facility] Work Phone: [phone] Potassium 3.7 mmol/L Invalid Interpretation Code 3.5-5.1 [employer] [facility] Work Phone: [phone] Sodium 134 mmol/L Low 136-145 [employer] [facility] Work Phone: [phone] Urea nitrogen 10 mg/dL Invalid Interpretation Code 7-18 [employer] [facility] Work Phone: Lab Report: CBC-Complete Blo od Cnt No Diffon 08-29-2016 Erythrocytes (RBC) 3.84 10*6/uL Low 4.2-5.4 Bloo minon [facility] Work Phone: Hematocrit (HCT) 36.9 % Low 37-47 [facility] Work Phone: [phone] Hemoglobin (HGB) 12.2 g/dL Invalid Interpretation Code 12.0-15.0 [facility] Work Phone: MCH 31.8 pg Invalid Interpretation Code 27.0-32.0 [facility] Work Phone: [phone] MCHC 33.1 G/GL Invalid Interpretation Code 32-36 [facility] Work Phone: MCV 96.1 fL Invalid Interpretation Code 81-99 [facility] Work Phone: [phone] Platelets 294 10*3/mm3 Invalid Interpretation Code 150-450 [facility] Work Phone: PMV by Goldie 9.3 fL Invalid Interpretation Code 6.2-12.0 [facility] Work Phone: [phone] RDW-CA 13.5 % Invalid Interpretation Code 11.6-14.6 [facility] Work Phone: [phone] red blood cell distribution width, size density 46.9 fL High 35.1-43.9 [facility] Work Phone: WBC (Leukocytes) 14.6 10*3/uL High 4.4-11.0 [facility] Work Phone: Microbiology: MRSA/SAID SCRE ENon 08-24-2016 GE use only - for [employer] import when terms are not otherwise specified . Invalid Interpretation Code [facility] Work Phone: Lab Report: Urinalysis, Rout ine (Dipstick)on 08-23-2016 Nitrite Urine Negative Invalid Interpretation Code Negative [facility] Work Phone: Occult Blood, urine Negative Invalid Interpretation Code Negative [facility] Work Phone: specific gravity, urine 1.015 Invalid Interpretation Code 1.002-1.030 [facility] Work Phone: [phone] Urine, bilirubin presence Negative Invalid Interpretation Code Negative [facility] Work Phone: [phone] Urine, clarity Clear Invalid Interpretation Code Clear [employer] [facility] Work Phone: [phone] Urine, color Yellow Invalid Interpretation Code Yellow [employer] [facility] Work Phone: [phone] Urine, glucose presence Normal mg/dl Invalid Interpretation Code Normal [employer] [facility] Work Phone: [phone] Urine, ketones presence Negative Invalid Interpretation Code Negative [employer] [facility] Work Phone: [phone] Urine, leukocyte esterase presence Negative Invalid Interpretation Code Negative [employer] [facility] Work Phone: [phone] Urine, pH 6.0 [pH] Invalid Interpretation Code 5.0 - 8.0 [employer] [facility] Work Phone: [phone] Urine, protein Negative Invalid Interpretation Code Negative [employer] [facility] Work Phone: urobilinogen, urine, by dipstick Normal mg/dl Invalid Interpretation Code Normal [employer] [facility] Work Phone: Lab Report: Alcohol, Blood ( Medical)-Serumon 11-09-2015 Ethanol 6.0 mg/dL Invalid Interpretation Code [employer] [facility] Work Phone: Lab Report: CBC W/Diff, Auto matedon 11-09-2015 Basophils/100 leukocytes 1.0 % Invalid Interpretation Code 0-1 [employer] [facility] Work Phone: [phone] Eosinophils/100 leukocytes 4.2 % Invalid Interpretation Code 0-5 [employer] [facility] Work Phone: immature granulocytes, percentage of total cells, blood 0.000 % Invalid Interpretation Code 0.0-0.9 [employer] [facility] Work Phone: Lymphocytes 1.15 X10 3/UL Invalid Interpretation Code 0.83-4.51 [employer] [facility] Work Phone: [phone] Lymphocytes/100 leukocytes 22.1 % Invalid Interpretation Code 19-41 [employer] [facility] Work Phone: Monocytes/100 leukocytes 7.1 % Invalid Interpretation Code 0-10 [employer] [facility] Work Phone: neutrophil count, blood 3.4 X10 3/UL Invalid Interpretation Code 2.0-7.7 [employer] Work Phone: [phone] Neutrophils/100 leukocytes 65.6 % Invalid Interpretation Code 47-70 [employer] Work Phone: [phone] Lab Report: ,Serum, hCG Quali.on 11-09-2015 B-HCG m[IU]/mL Invalid Interpretation Code =>Qualitative [employer] Work Phone: [phone] Lab Report: Urinalysis, Comp leteon 11-09-2015 amorphous sediment, urine 3+ Invalid Interpretation Code [employer] [facility] Work Phone: [phone] Urine, bacteria in sediment 0 /[HPF] Invalid Interpretation Code None Seen [employer] Work Phone: [phone] Urine, epithelial cells in sediment 0-5 SEEN Invalid Interpretation Code 5-10 [employer] [facility] Work Phone: [phone] Urine, erythrocytes in sediment by volume 0 SEEN Invalid Interpretation Code 0-5 [employer] Work Phone: [phone] Urine, mucus presence in sediment 0 SEEN Invalid Interpretation Code [employer] [facility] Work Phone: [phone] WBC (Leukocytes) 0 SEEN Invalid Interpretation Code 0-5 [employer] Work Phone: [phone] Lab Report: Urine Drug Scree n (VISTA)on 11-09-2015 barbiturates screen, urine Negative Invalid Interpretation Code < 200 ng/mL [employer] [facility] Work Phone: [phone] Ecstasy (MDMA) Screen, urine Negative Invalid Interpretation Code < 500 ng/mL [employer] [facility] Work Phone: [phone] phencyclidine screen, urine Negative Invalid Interpretation Code < 25 ng/mL [employer] Work Phone: [phone] Urine, amphetamines presence Negative Invalid Interpretation Code <1000 ng/mL [employer] Work Phone: [phone] Urine, benzodiazepines presence Negative Invalid Interpretation Code < 200 ng/mL [employer] [facility] Work Phone: Urine, cocaine presence Positive High < 300 ng/mL [employer] [facility] Work Phone: [phone] Urine, methadone presence Negative Invalid Interpretation Code < 300 ng/mL [employer] [facility] Work Phone: [phone] Urine, opiates presence Positive High < 300 ng/mL [employer] [facility] Work Phone: [phone] Urine, tetrahydrocannabinol presence Positive High < 50 ng/mL [employer] [facility] Work Phone: Replaced Document: (P) Pregn shakir,Serum,hCG Quali.on 11-09-2015 beta HCG, serum, qualitative Negative Invalid Interpretation Code 0-9 Nonpreg [employer] [facility] Work Phone: Lab Report: Partial Thrombop last Timeon 04-12-2015 aPTT 33.0 s Invalid Interpretation Code 24.1-36.2 [employer] [facility] Work Phone: Lab Report: Prothrombin Time w/INRon 04-12-2015 Coagulation tissue factor induced in platelet poor plasma 12.3 s Invalid Interpretation Code 11.7-14.9 [employer] [facility] Work Phone: INR in blood by coagulation 0.9 {INR} Invalid Interpretation Code [employer] [facility] Work Phone: Lab Report: CBCDon 4 Absolute Neutrophil count 7.0 X10 3/UL Normal 2.0-7.7 [employer] [facility] Work Phone: Vital Signs Date Time Vital Sign Value Performing Clinician Facility 04-12-2025 19:36-0400 Body temperature 98.4 [degF] Dr. Darrel Veloz DO Work Phone: [facility] 04-12-2025 19:36-0400 Diastolic blood pressure 61 mm[Hg] Dr. Darrel Veloz DO Work Phone: [facility] 04-12-2025 19:36-0400 Heart rate 64 /min Dr. Darrel Veloz DO Work Phone: [facility] 04-12-2025 19:36-0400 Respiratory rate 18 /min Dr. Darrel Veloz DO Work Phone: [facility] 04-12-2025 19:36-0400 SaO2% (BldA) [Mass fraction] 99 % Dr. Darrel Veloz DO Work Phone: [facility] 04-12-2025 19:36-0400 Systolic blood pressure 121 mm[Hg] Dr. Darrel Veloz DO Work Phone: [facility] 04-12-2025 16:44-0400 Body height 172.[address] Darrel Veloz DO Work Phone: [facility] 04-12-2025 16:44-0400 Body mass index (BMI) [Ratio] 27.3 kg/m2 Dr. Darrel Veloz DO Work Phone: [facility] 04-12-2025 16:44-0400 Body weight 81.[address] Darrel Veloz DO Work Phone: [facility] 04-08-2025 18:44-0400 Body height 172.7 cm Kaley Taveras DO Work Phone: [facility] 04-08-2025 18:44-0400 Body mass index (BMI) [Ratio] 27.37 kg/m2 Kaley Taveras DO Work Phone: [facility] 04-08-2025 18:44-0400 Body temperature 99.1 [degF] Kaley Taveras DO Work Phone: [facility] 04-08-2025 18:44-0400 Body weight 81.65 kg Kaley Taveras DO Work Phone: [facility] 04-08-2025 18:44-0400 Diastolic blood pressure 63 mm[Hg] Kaley Taveras DO Work Phone: [facility] 04-08-2025 18:44-0400 Heart rate 89 /min Kaley Taveras DO Work Phone: [facility] 04-08-2025 18:44-0400 Respiratory rate 16 /min Kaley Taveras DO Work Phone: [facility] 04-08-2025 18:44-0400 SaO2% (BldA) [Mass fraction] 99 % Kaley Taveras DO Work Phone: [facility] 04-08-2025 18:44-0400 Systolic blood pressure 108 mm[Hg] Kaley Taveras DO Work Phone: [facility] 04-01-2025 16:43-0400 Body temperature 98 [degF] Dr. Darrel Veloz DO Work Phone: [facility] 04-01-2025 16:43-0400 Diastolic blood pressure 64 mm[Hg] Dr. Darrel Veloz DO Work Phone: [facility] 04-01-2025 16:43-0400 Heart rate 62 /min Dr. Darrel Veloz DO Work Phone: [facility] 04-01-2025 16:43-0400 Respiratory rate 25 /min Dr. Darrel Veloz DO Work Phone: [facility] 04-01-2025 16:43-0400 SaO2% (BldA) [Mass fraction] 96 % Dr. Darrel Veloz DO Work Phone: [facility] 04-01-2025 16:43-0400 Systolic blood pressure 119 mm[Hg] Dr. Darrel Veloz DO Work Phone: [facility] 04-01-2025 11:22-0400 Body height 172.[address] Darrel Veloz DO Work Phone: [facility] 04-01-2025 11:22-0400 Body mass index (BMI) [Ratio] 27.6 kg/m2 Dr. Darrel Veloz DO Work Phone: [facility] 04-01-2025 11:22-0400 Body weight 82.[address] Darrel Veloz DO Work Phone: [facility] 03-28-2025 14:35-0400 Body height 170.[address] Darrel Veloz DO Work Phone: [facility] 03-28-2025 14:35-0400 Body temperature 97.5 [degF] Dr. Darrel Veloz DO Work Phone: [facility] 03-28-2025 14:35-0400 Diastolic blood pressure 80 mm[Hg] Dr. Darrel Veloz DO Work Phone: [facility] 03-28-2025 14:35-0400 Heart rate 86 /min Dr. Darrel Veloz DO Work Phone: [facility] 03-28-2025 14:35-0400 Respiratory rate 16 /min Dr. Darrel Veloz DO Work Phone: [facility] 03-28-2025 14:35-0400 SaO2% (BldA) [Mass fraction] 98 % Dr. Darrel Veloz DO Work Phone: [facility] 03-28-2025 14:35-0400 Systolic blood pressure 155 mm[Hg] Dr. Darrel Veloz DO Work Phone: [facility] 03-19-2025 15:08-0400 Diastolic blood pressure 70 mm[Hg] Dr. Darrel Veloz DO Work Phone: [facility] 03-19-2025 15:08-0400 Heart rate 71 /min Dr. Darrel Veloz DO Work Phone: [facility] 03-19-2025 15:08-0400 Respiratory rate 16 /min Dr. Darrel Veloz DO Work Phone: [facility] 03-19-2025 15:08-0400 SaO2% (BldA) [Mass fraction] 99 % Dr. Darrel Veloz DO Work Phone: [facility] 03-19-2025 15:08-0400 Systolic blood pressure 112 mm[Hg] Dr. Darrel Veloz DO Work Phone: [facility] 03-19-2025 13:44-0400 Body height 170.[address] Darrel Veloz DO Work Phone: [facility] 03-19-2025 13:44-0400 Body mass index (BMI) [Ratio] 29.3 kg/m2 Dr. Darrel Veloz DO Work Phone: [facility] 03-19-2025 13:44-0400 Body temperature 98.7 [degF] Dr. Darrel Veloz DO Work Phone: [facility] 03-19-2025 13:44-0400 Body weight [address] Darrel Veloz DO Work Phone: [facility] 06-30-2024 15:34-0400 Body temperature 97 [degF] Rush Maxwell PA-C Work Phone: [facility] 06-30-2024 15:34-0400 Diastolic blood pressure 70 mm[Hg] Rush Maxwell PA-C Work Phone: [facility] 06-30-2024 15:34-0400 Heart rate 64 /min Rush Maxwell PA-C Work Phone: [facility] 06-30-2024 15:34-0400 Respiratory rate 16 /min Rush Maxwell PA-C Work Phone: [facility] 06-30-2024 15:34-0400 SaO2% (BldA) [Mass fraction] 99 % Rush Maxwell PA-C Work Phone: [facility] 06-30-2024 15:34-0400 Systolic blood pressure 108 mm[Hg] Rush Maxwell PA-C Work Phone: [facility] 01-19-2024 22:33-0400 Diastolic blood pressure 69 mm[Hg] [facility] 01-19-2024 22:33-0400 Heart rate 81 /min [facility] 01-19-2024 22:33-0400 Respiratory rate 20 /min [facility] 01-19-2024 22:33-0400 SaO2% (BldA) [Mass fraction] 99 % [facility] 01-19-2024 22:33-0400 Systolic blood pressure 130 mm[Hg] [facility] 01-19-2024 21:07-0400 Body height 172.72 cm [facility] 01-19-2024 21:07-0400 Body temperature 98.3 [degF] [facility] 12-07-2023 08:37-0400 Body temperature 97.9 [degF] [facility] 12-07-2023 08:37-0400 Diastolic blood pressure 76 mm[Hg] [facility] 12-07-2023 08:37-0400 Heart rate 66 /min [facility] 12-07-2023 08:37-0400 Respiratory rate 16 /min [facility] 12-07-2023 08:37-0400 SaO2% (BldA) [Mass fraction] 98 % [facility] 12-07-2023 08:37-0400 Systolic blood pressure 118 mm[Hg] [facility] 12-07-2023 04:39-0400 Body height 170.18 cm [facility] 12-07-2023 04:39-0400 Body mass index (BMI) [Ratio] 49.9 kg/m2 [facility] 12-07-2023 04:39-0400 Body weight 144.7 kg [facility] 07-18-2023 13:42-0400 Body height 172.7 cm Geoff Alcantar MD Work Phone: [facility] Comment on above: per patient 07-18-2023 13:42-0400 Body mass index (BMI) [Ratio] 47.1 kg/m2 Geoff Alcantar MD Work Phone: [facility] 07-18-2023 13:42-0400 Body temperature 97.7 [degF] Geoff Alcantar MD Work Phone: [facility] 07-18-2023 13:42-0400 Body weight 140.52 kg Geoff Alcantar MD Work Phone: [facility] 07-18-2023 13:42-0400 Diastolic blood pressure 60 mm[Hg] Geoff Alcantar MD Work Phone: [facility] 07-18-2023 13:42-0400 Heart rate 73 /min Geoff Alcantar MD Work Phone: [facility] 07-18-2023 13:42-0400 Respiratory rate 16 /min Geoff Alcatnar MD Work Phone: [facility] 07-18-2023 13:42-0400 Systolic blood pressure 90 mm[Hg] Geoff Alcantar MD Work Phone: [facility] 05-17-2023 07:50-0400 Diastolic blood pressure 67 mm[Hg] [facility] 05-17-2023 07:50-0400 Heart rate 64 /min [facility] 05-17-2023 07:50-0400 Respiratory rate 16 /min [facility] 05-17-2023 07:50-0400 SaO2% (BldA) [Mass fraction] 99 % [facility] 05-17-2023 07:50-0400 Systolic blood pressure 118 mm[Hg] [facility] 05-17-2023 06:04-0400 Body height 170.18 cm [facility] 05-17-2023 06:04-0400 Body mass index (BMI) [Ratio] 43.8 kg/m2 [facility] 05-17-2023 06:04-0400 Body temperature 96.8 [degF] [facility] 05-17-2023 06:04-0400 Body weight 127 kg [facility] 02-07-2023 00:57-0400 Diastolic blood pressure 67 mm[Hg] [facility] 02-07-2023 00:57-0400 Heart rate 75 /min [facility] 02-07-2023 00:57-0400 Respiratory rate 18 /min [facility] 02-07-2023 00:57-0400 SaO2% (BldA) [Mass fraction] 95 % [facility] 02-07-2023 00:57-0400 Systolic blood pressure 101 mm[Hg] [facility] 02-06-2023 22:44-0400 Inhaled oxygen flow rate 2 L/min [facility] 02-06-2023 21:12-0400 Body height 172.72 cm [facility] 02-06-2023 21:12-0400 Body mass index (BMI) [Ratio] 42.7 kg/m2 [facility] 02-06-2023 21:12-0400 Body temperature 97.5 [degF] [facility] 02-06-2023 21:12-0400 Body weight 127.5 kg [facility] 11-07-2022 10:10-0500 Diastolic blood pressure 102 mm[Hg] Nely Cabezas MD Work Phone: [facility] 11-07-2022 10:10-0500 Heart rate 108 /min Nely Cabezas MD Work Phone: [facility] 11-07-2022 10:10-0500 Systolic blood pressure 126 mm[Hg] Nely Cabezas MD Work Phone: [facility] 06-08-2015 09:46-0400 BMI (Body Mass Index) 32.63 kg/m2 Lucretia Peña [facility] [employer] [facility] Work Phone: 06-08-2015 09:46-0400 Body Temperature 98.4 [degF] Lucretia Peña [facility] [employer] [facility] Work Phone: 06-08-2015 09:46-0400 BP Diastolic 82 mm[Hg] Lucretia Peña [facility] [email or web address] [facility] Work Phone: 06-08-2015 09:46-0400 BP Systolic 136 mm[Hg] Lucretia Peña [facility] [employer] [facility] Work Phone: 06-08-2015 09:46-0400 Pulse (Heart Rate) 70 /min Lucretia Peña [facility] [employer] [facility] Work Phone: 06-08-2015 09:46-0400 Respiratory Rate 16 /min Lucretia Peña [facility] [employer] [facility] Work Phone: 06-08-2015 09:46-0400 Weight 97.34 kg Lucretia Peña [employer] [facility] Work Phone: 05-09-2015 10:02-0400 BSA (Body Surface Area) 2.14 m2 [facility] Work Phone: 05-09-2015 10:02-0400 Pulse Oximetry 100 % Lucretia Peña [employer] [facility] Work Phone: 07-26-2014 09:18-0500 Height 172.72 cm Lucretia Peña [employer] [facility] Work Phone: Encounters Encounter Date Encounter Type Care Provider Facility Start: 04-12-2025 End: 04-12-2025 Emergency department patient visit Dr. Darrel Veloz DO Work Phone: -Emergency Department Work Phone: Start: 04-08-2025 End: 04-08-2025 Emergency department patient visit Kaley Taveras DO Work Phone: [facility] Comment on above: Suprapubic catheter (CMS/HCC V24, CMS/HCC V28) (Primary Dx) Start: 04-08-2025 End: 04-08-2025 Evaluation and management of inpatient Kaley Taveras DO Work Phone: [facility] Start: 04-01-2025 End: 04-01-2025 Emergency department patient visit Dr. Darrel Veloz DO Work Phone: -Emergency Department Work Phone: Start: 03-31-2025 End: 04-01-2025 Telephone encounter Rush Maxwell PA-C Work Phone: Urology Comment on above: Patient Question Start: 03-28-2025 End: 03-28-2025 Emergency department patient visit Dr. Darrel Veloz DO Work Phone: -Emergency Department Work Phone: Start: 03-19-2025 End: 03-19-2025 Emergency department patient visit Dr. Darrel Veloz DO Work Phone: -Emergency Department Work Phone: Start: 03-11-2025 End: 03-11-2025 Telephone encounter Rush Maxwell PA-C Work Phone: Urology Comment on above: Returning Patient's Call Start: 02-02-2025 End: 02-02-2025 Nursing evaluation of patient and report Nurse Urol [facility] Work Phone: Urology Comment on above: Neurogenic bladder ( Primary Dx); Urinary retention Start: 02-02-2025 End: 02-02-2025 ambulatory RUSH MAXWELL Facility:[facility] Start: 01-06-2025 End: 01-06-2025 Telephone encounter Rush Maxwell PA-C Work Phone: Urology Comment on above: Orders Start: 01-05-2025 End: 01-05-2025 Nursing evaluation of patient and report Nurse Urol [facility] Work Phone: Urology Comment on above: Neurogenic bladder ( Primary Dx) Start: 01-05-2025 End: 01-05-2025 [facility] Facility:[facility] Start: 12-08-2024 End: 12-08-2024 Nursing evaluation of patient and report Nurse Urol [facility] Work Phone: Urology Comment on above: Neurogenic bladder ( Primary Dx) Start: 12-08-2024 End: 12-08-2024 [facility] Facility:[facility] Start: 11-03-2024 End: 11-03-2024 [facility] Facility:[facility] Start: 11-03-2024 End: 11-03-2024 Nursing evaluation of patient and report Nurse Urol [facility] Work Phone: Urology Comment on above: Neurogenic bladder ( Primary Dx) Start: 10-07-[address] [facility] Facility: [facility] Start: 10-06-2024 End: 10-07-2024 [facility] Facility:[facility] Start: 10-06-2024 End: 10-06-2024 Nursing evaluation of patient and report [facility] Work Phone: [facility] Comment on above: Chronic suprapubic c atheter (HCC) (Primary Dx); Neurogenic bladder Start: 09-28-2024 [facility] Facility: [facility] Start: 09-25-2024 End: 09-25-2024 Emergency department patient visit Souleymane Fouzia Facility:[facility] Start: 09-11-2024 End: 09-11-2024 [facility] Facility:[facility] Start: 08-25-2024 End: 08-25-2024 Nursing evaluation of patient and report Nurse Urol [facility] Work Phone: Urology Comment on above: Neurogenic bladder ( Primary Dx) Start: 08-25-2024 End: 08-25-2024 [facility] Start: 08-25-2024 End: 08-28-2024 Telephone encounter Rush Maxwell PA-C Work Phone: Urology Comment on above: Patient Question; Me dication Problem; Orders Start: 07-28-2024 End: 07-28-2024 [facility] Facility:[facility] Start: 07-28-2024 End: 07-28-2024 Nursing evaluation of patient and report Nurse Urol [facility] Work Phone: Urology Comment on above: Neurogenic bladder ( Primary Dx) Start: 07-02-2024 End: 07-02-2024 Telephone encounter Rush Maxwell PA-C Work Phone: Urology Comment on above: Results Start: 06-30-2024 End: 06-30-2024 [facility] Facility:[facility] Start: 06-30-2024 End: 06-30-2024 Patient encounter procedure Rush Maxwell PA-C Work Phone: Urology Comment on above: Neurogenic bladder ( Primary Dx); Screening for genitourinary condition; Hematuria, unspecified type; Bladder spasm Start: 06-03-2024 End: 06-03-2024 [facility] Facility:[facility] Start: 05-26-2024 End: 05-26-2024 Nursing evaluation of patient and report [facility] Work Phone: Urology Comment on above: Neurogenic bladder ( Primary Dx) Start: 05-26-2024 End: 05-26-2024 [facility] Facility:[facility] Start: 04-07-2024 End: 04-07-2024 [facility] Facility:[facility] Start: 04-07-2024 End: 04-07-2024 Nursing evaluation of patient and report Nurse Urol [facility] Work Phone: Urology Comment on above: Neurogenic bladder ( Primary Dx) Start: 03-03-2024 End: 03-03-2024 Nursing evaluation of patient and report Nurse Urol [facility] Work Phone: Urology Comment on above: Neurogenic bladder ( Primary Dx) Start: 01-19-2024 End: 01-19-2024 Emergency department patient visit [facility]-Emergency Department Work Phone: Start: 01-15-2024 Telephone encounter Rush TENORIO-Alice Work Phone: Urology Comment on above: Appointment Start: 12-13-2023 Telephone encounter Rush TENORIO-C Work Phone: Urology Comment on above: Patient Question (Ne eds bag) Start: 12-07-2023 End: 12-07-2023 Emergency department patient visit [facility]-Emergency Department Work Phone: Start: 12-06-2023 Telephone encounter Rush TENORIO-C Work Phone: OB/Gynecology Comment on above: Results Start: 12-03-2023 End: 12-03-2023 Nursing evaluation of patient and report Nurse Urol [facility] Work Phone: Urology Comment on above: Neurogenic bladder ( Primary Dx) Start: 11-22-2023 End: 11-22-2023 ambulatory [facility] Work Phone: Start: 11-22-2023 End: 11-22-2023 [facility] encounter [facility] Start: 11-18-2023 End: 11-18-2023 ambulatory [facility] Work Phone: Start: 11-18-2023 End: 11-18-2023 Patient encounter procedure [facility] Start: 08-12-2023 End: 08-12-2023 ambulatory [facility] Work Phone: Start: 08-12-2023 End: 08-12-2023 Departed [facility] Start: 07-30-2023 End: 07-30-2023 Nursing evaluation of patient and report Nurse Urol [facility] Work Phone: Urology Comment on above: Atonic neurogenic bl adder (Primary Dx) Start: 07-26-2023 Telephone encounter Rush cunningham PA-C Work Phone: Urology Comment on above: Orders Start: 07-25-2023 ambulatory Minh Zupke PA Work Phone: [facility] Start: 07-23-2023 Documentation procedure Ariasor y Zupke PA Work Phone: [facility] Comment on above: EGD Start: 07-18-2023 End: 07-18-2023 ambulatory [facility] Start: 07-18-2023 Patient encounter status Mallo ry Zupke PA Work Phone: [facility] Start: 07-18-2023 Preoperative state Minh Zup ke PA Work Phone: [facility] Start: 07-18-2023 Telephone encounter Minh Zu pke PA Work Phone: [facility] Comment on above: Financial File (Shirley ncial File 2022); Surgery Scheduling (Initial scheduling-orders placed) Start: 07-18-2023 End: 07-18-2023 Office outpatient new 45 minutes Geoff Alcantar MD Work Phone: [facility] Comment on above: Tobacco use (Primary Dx); Back pain, unspecified back location, unspecified back pain laterality, unspecified chronicity; Gastroesophageal reflux disease without esophagitis; Morbid obesity with BMI of 45.0-49.9, adult ([facility]); long term resident; Wheelchair dependent Start: 07-15-2023 End: 07-15-2023 ambulatory [facility] Work Phone: Start: 07-15-2023 End: 07-15-2023 Departed [facility] Start: 06-21-2023 Telephone encounter Cristina moreno APRN.CNP Work Phone: OB/Gynecology Comment on above: Results Start: 06-17-2023 End: 06-17-2023 Departed [facility] Start: 06-04-2023 End: 06-04-2023 Departed [facility] Start: 05-22-2023 End: 05-22-2023 Patient encounter procedure Nely Cabezas MD Work Phone: [facility] Comment on above: History of spinal co rd injury (Primary Dx); Spastic quadriparesis ([facility]) Start: 05-20-2023 End: 05-20-2023 Departed [facility] Start: 05-17-2023 End: 05-17-2023 Emergency department patient visit [facility]-Emergency Department Work Phone: Start: 04-30-2023 Registered [facility] Start: 04-22-2023 Registered [facility] Start: 03-25-2023 Registered [facility] Start: 03-17-2023 Registered [facility] Start: 03-03-2023 End: 03-03-2023 ambulatory [facility] Work Phone: Start: 03-03-2023 End: 03-03-2023 Departed [facility] Start: 02-25-2023 Registered [facility] Start: 02-06-2023 End: 02-07-2023 Emergency department patient visit [facility]Emergency [facility] Start: 01-28-2023 End: 01-28-2023 Departed [facility] Start: 12-31-2022 End: 12-31-2022 Departed [facility] Start: 12-03-2022 End: 12-03-2022 ambulatory [facility] Work Phone: Start: 12-03-2022 End: 12-03-2022 Departed [facility] Start: 12-03-2022 Registered [facility] Start: 11-07-2022 End: 11-07-2022 Patient encounter procedure Nely Cabezas MD Work Phone: [facility] Comment on above: Spastic quadriparesi s (HCC) (Primary Dx); Spasticity; Abnormality of gait Start: 11-05-2022 End: 11-05-2022 ambulatory [facility] Work Phone: Start: 11-05-2022 End: 11-05-2022 Departed [facility] Start: 10-08-2022 End: 10-08-2022 ambulatory [facility] Work Phone: Start: 10-08-2022 End: 10-08-2022 Departed [facility] Start: 09-27-2022 Telephone encounter Chetan Rocha CNP Work Phone: [facility] Michelle Comment on above: Appointment Request Start: 08-09-2022 End: 08-09-2022 Patient encounter procedure Nely Cabezas MD Work Phone: [facility] Comment on above: Spastic quadriparesi s (HCC) (Primary Dx); Spasticity; Abnormality of gait Start: 03-21-2022 End: 03-21-2022 Patient encounter procedure Nely Cabezas MD Work Phone: [facility] Comment on above: Spastic quadriparesi s (HCC) (Primary Dx); Abnormality of gait; Contracture of joint of multiple sites Start: 03-07-2022 Telephone encounter Deyanira Petersen APRN.[employer] Work Phone: [facility] Comment on above: Insurance Authorizat ion Start: 02-16-2022 End: 02-16-2022 Patient encounter procedure Deyanira Petersen APRN.[employer] Work Phone: [facility] Comment on above: Spastic quadriparesi s (HCC) (Primary Dx); Paraparesis of both lower limbs (HCC); History of spinal cord injury; Spinal epidural abscess; Abnormality of gait; Impaired mobility and ADLs; Anxiety; Depression, unspecified depression type Start: 03-14-2021 ambulatory DARREL VELOZ [facility] y:[facility] Start: 01-19-2021 End: 02-09-2021 Evaluation and management of inpatient DARREL ASTUDILLOUTZMAN Facility:[facility] Procedures Date Procedure Procedure Detail Performing Clinician Start: 04-12-2025 Urnls dip stick/tabl et reagent auto microscopy Dr. Darrel Veloz DO Work Phone: Start: 04-12-[address] Darrel Veloz DO Work Phone: Start: 04-08-2025 HUERTA URINE CULTURE TUBE Kaley Taveras DO Work Phone: Start: 04-08-2025 Urnls dip stick/tabl et reagent auto microscopy Kaley Taveras DO Work Phone: Start: 04-08-2025 YELLOW URINE NO ADDITIVE Kaley Taveras DO Work Phone: Start: 04-01-2025 Urnls dip stick/tabl et reagent auto microscopy Dr. Darrel Veloz DO Work Phone: Start: 04-01-[address] Darrel Veloz DO Work Phone: Start: 04-01-2025 Streptococcus pyogen es rRNA assay Dr. Darrel Veloz DO Work Phone: Start: 04-01-[address] Darrel Veloz DO Work Phone: Start: 04-01-[address] Darrel Veloz DO Work Phone: Start: 04-01-2025 CT of soft tissues o f neck with contrast Dr. Darrel Veloz DO Work Phone: Start: 03-28-2025 Methadone measuremen t, urine Dr. Darrel Veloz DO Work Phone: Start: 03-19-2025 Methadone measuremen t, urine Dr. Darrel Veloz DO Work Phone: Start: 03-19-2025 Urnls dip stick/tabl et reagent auto microscopy Dr. Darrel Veloz DO Work Phone: Start: 03-19-[address] Darrel Veloz DO Work Phone: Start: 03-19-[address] Darrel Veloz DO Work Phone: Start: 06-30-2024 Culture bacterial quanttative colony count urine Rush Maxwell PA-C Work Phone: Start: 12-07-2023 MRI of lower extremity Start: 12-07-2023 Radiography of ankle Start: 05-17-2023 CT cervical spine wi thout contrast Start: 05-17-2023 CT of head without contrast Start: 05-01-2023 Urine culture Start: 04-30-2023 Investigation of transfusion reaction Start: 04-30-2023 Microbial culture, routine Start: 03-17-2023 Investigation of transfusion reaction Start: 03-17-2023 Microbial culture, routine Start: 03-17-2023 Mycology culture Start: 03-03-2023 Urine culture Start: 02-07-2023 Plain x-ray of pelvi s and lower extremity Start: 02-06-2023 Radiography of ankle Start: 02-06-2023 Plain X-ray of tibia and fibula Start: 07-30-2022 Lipid 1996 panel - S tasneem or Plasma Cristina Sellers APRN.CNP Work Phone: Start: 02-01-2021 Antibody screen DARREL GARCIA Comment on above: Performed By: #### T YPEC #### [facility] (DEFAULT) [address] [place] [address] Start: 01-28-2021 Antibody screen DARREL GARCIA Comment on above: Performed By: #### X M #### [facility] (DEFAULT) [address] [place] [address] Start: 01-19-2021 Antibody screen DARREL GARCIA Comment on above: Performed By: #### X M #### [facility] (DEFAULT) [address] [place] [address] Start: 07-20-2016 End: 08-24-2016 X-ray exam, knee, 4 or more Linus S To dd Work Phone: Start: 06-08-2015 End: 06-13-2015 Pain Management Darrel Veloz DO Work Phone: Start: 04-13-2015 End: 04-13-2016 Physical Therapy General Darrel Veloz DO Work Phone: Start: 02-02-2015 End: 08-24-2016 Mri joint upr extrem w/o dye Linus Deng Work Phone: Start: 01-24-2015 End: 08-24-2016 X-ray exam of shoulder Linus Deng Work Phone: Start: 09-27-2014 End: 09-29-2014 Drain/inject, joint/bursa Linus Deng Work Phone: Start: 07-26-2014 End: 08-24-2016 X-ray exam, knee, 4 or more Linus S To dd Work Phone: Urine culture Plan of Treatment Date Care Activity Detail Author Start: 2036 RSV Immunization aged 60 or older (1 - 1-dose 60+ series) RSV Immunization aged 60 or older (1 - 1-dose 60+ series) [facility] Start: 05-17-2033 DTaP,Tdap,and Td Vaccines (3 - Td or Tdap) DTaP,Tdap,and Td Vaccines (3 - Td or Tdap) [facility] Start: 05-17-2033 DTaP/Tdap/Td Vaccines (7 - Td or Tdap) DTaP/Tdap/Td Vaccines (7 - Td or Tdap) [facility] Start: 05-17-2033 Urine microalbumin profile [facility] Start: 07-30-2027 Lipid 1996 panel - Serum or Plasma Lipid Screening [facility] Start: 07-30-2027 Lipid panel [facility] Start: 07-30-2027 LIPID SCREEN LIPID SCREEN [facility] Start: 02-07-2026 Zoster Vaccines (1 of 2) Zoster Vaccines (1 of 2) [facility] Start: 07-30-2025 Diabetes Screening Diabetes Screening [facility] Start: 05-24-2025 Influenza vaccination [facility] Start: 04-12-2025 End: 04-12-2025 [facility] Start: 04-01-2025 [facility] Start: 04-01-2025 [facility] Start: 04-01-2025 Bacteria identified in Blood by Culture Blood Culture [facility] Start: 04-01-2025 Bacteria identified in Urine by Culture Urine Culture [facility] Start: 04-01-2025 End: 04-01-2025 [facility] Start: 03-28-2025 [facility] Start: 03-28-2025 Consultation [facility] Start: 03-28-2025 DTaP/Tdap/Td Vaccines (6 - Tdap) DTaP/Tdap/Td Vaccines (6 - Tdap) [facility] Start: 03-28-2025 Urine microalbumin profile DTaP,Tdap,Td Vaccine (6 - Tdap) [facility] Start: 03-19-2025 End: 03-19-2025 [facility] Start: 03-19-2025 Bacteria identified in Urine by Culture Urine Culture [facility] Start: 03-16-2025 End: 03-16-2025 Nursing evaluation of patient and report 03/16/2025 2:40 PM EDT Nurse Visit Urology [address] [place] [address] Wstr, Nurse Urol [facility] [address] [place] [address] SPT Change. Last changed 02/02/2025. [facility] Urology Comment on above: SPT Change. Last changed 02/02/2025. [facility] Start: 01-05-2025 End: 01-05-2025 Nursing evaluation of patient and report 01/05/2025 2:40 PM EDT Nurse Visit Urology [address] [place] [address] Wstr, Nurse Urol [facility] [address] [place] [address] 4w SPT change Urology Comment on above: 4w SPT change Start: 12-18-2024 End: 12-18-2024 Patient encounter procedure 12/18/2024 2:00 PM EDT Office Visit OB/Gynecology [address] [place] [address] Britni Velazquez APRN.[employer] [address] [place] [address] ANNUAL OB/Gynecology Comment on above: ANNUAL Start: 12-08-2024 End: 12-08-2024 Nursing evaluation of patient and report 12/08/2024 2:40 PM EDT Nurse Visit Urology [address] [place] [address] Wstr, Nurse Urol [facility] [address] [place] [address] 4w SPT change Urology Comment on above: 4w SPT change Start: 11-03-2024 End: 11-03-2024 Nursing evaluation of patient and report 11/03/2024 2:40 PM EST Nurse Visit Urology [address] [place] [address] Wstr, Nurse Urol [facility] [address] [place] [address] 4w SPT change Urology Comment on above: 4w SPT change Start: 10-20-2024 End: 10-20-2024 Nursing evaluation of patient and report 10/20/2024 2:40 PM EST Nurse Visit Urology [address] [place] [address] Wstr, Nurse Urol [facility] [address] [place] [address] SPT change Urology Comment on above: SPT change Start: 09-23-2024 Depression Screening Depression Screening [facility] Start: 09-22-2024 End: 09-22-2024 Nursing evaluation of patient and report 09/22/2024 2:40 PM EST Nurse Visit Urology [address] [place] [address] Wstr, Nurse Urol [facility] [address] [place] [address] SPT change Urology Comment on above: SPT change Start: 08-25-2024 End: 08-25-2024 Nursing evaluation of patient and report 08/25/2024 2:40 PM EST Nurse Visit Urology [address] [place] [address] Wstr, Nurse Urol [facility] [address] [place] [address] SPT change Urology Comment on above: SPT change Start: 07-28-2024 End: 07-28-2024 Nursing evaluation of patient and report 07/28/2024 2:40 PM EST Nurse Visit Urology [address] [place] [address] Wstr, Nurse Urol [facility] [address] [place] [address] SPT change Urology Comment on above: SPT change Start: 06-30-2024 End: 06-30-2024 Patient encounter procedure 06/30/2024 3:30 PM EDT Office Visit Urology [address] [place] [address] Rush Maxwell PA-C [address] [place] [address] Yearly and SPT change Urology Comment on above: Yearly and SPT change Start: 05-24-2024 Covid-19 Vaccine ( season) Covid-19 Vaccine () [facility] Start: 05-24-2024 Covid-19 Vaccine () Covid-19 Vaccine () [facility] Start: 05-24-2024 Influenza vaccination [facility] Start: 05-19-2024 End: 05-19-2024 Nursing evaluation of patient and report 05/19/2024 3:40 PM EDT Nurse Visit Urology [address] [place] [address] Wstr, Nurse Urol [facility] [address] [place] [address] spt cath change Urology Comment on above: spt cath change Start: 04-10-2024 DIABETES SCREEN DIABETES SCREEN [facility] Start: 04-10-2024 Diabetes Screening Diabetes Screening [facility] Start: 04-07-2024 End: 04-07-2024 Nursing evaluation of patient and report 04/07/2024 3:40 PM EDT Nurse Visit Urology [address] [place] [address] Wstr, Nurse Urol [facility] [address] [place] [address] spt cath change Urology Comment on above: spt cath change Start: 01-29-2024 End: 01-29-2024 Patient encounter procedure 01/29/2024 11:15 AM EDT Office Visit [facility] [address] [place] [address] Nely Cabezas MD [address] [place] [address] [facility] Comment on above: BOTOX Start: 01-19-2024 End: 01-19-2024 [facility] Start: 01-19-2024 Bacteria identified in Urine by Culture [facility] Start: 12-03-2023 End: 03-03-2024 Bacteria identified in Urine by Culture [facility] Work Phone: Comment on above: Expected: 12/03/2023 (Approximate), Expi res: 03/03/2024 Ordered: 12/03/2023 Start: 09-04-2023 End: 09-04-2023 Patient encounter procedure 09/04/2023 11:00 AM EST Office Visit [facility] [address] [place] [address] Chelsi Hare MD [address] [facility] [facility] [address] [place], [place] [id number] [facility] Start: 08-13-2023 End: 08-13-2023 Admission to same day surgery center 08/13/2023 11:15 AM EST - 08/13/2023 11:45 AM EST Surgery [facility] [address] [place] [address] Geoff Alcantar MD [address] [place] [address] EGD WITH BIOPSY [38858 (CPT )] [facility] [address] Comment on above: EGD WITH BIOPSY [47158 (CPT )] Start: 08-13-2023 End: 08-13-2023 Egd transoral biopsy single/multiple EGD WITH BIOPSY Gastro-esophageal reflux disease without esophagitis 08/13/2023 11:15 AM EST [facility] Start: 08-13-2023 Subsequent hospital visit by physician 08/13/2023 11:15 AM EST Hospital Encounter [facility] [address] [place] [id number] Geoff Alcantar MD [address] [place] [address] [facility] [address] Start: 07-29-2023 End: 07-29-2023 Clinical Support 07/29/2023 1:00 PM EST Clinical Support [facility] [address] [place] [phone] Geoff Alacntar MD [address] [place] [address] [place], [place] [id number] [facility] Start: 07-23-2023 End: 07-23-2024 25-hydroxyvitamin D3 [Mass/volume] in Serum or Plasma Vitamin D Deficiency Screening (Vit D 25) Lab Routine Back pain, unspecified back location, unspecified back pain laterality, unspecified chronicity Gastroesophageal reflux disease without esophagitis Morbid obesity with BMI of 45.0-49.9, adult (HCC) Tobacco use Wheelchair dependent Pre-operative laboratory examination Expected: 07/23/2023, Expires: 07/23/2024 [facility] Comment on above: Expected: 07/23/2023, Expires: Start: 07-23-2023 End: 07-23-2024 CBC panel - Blood by Automated count CBC Lab Routine Back pain, unspecified back location, unspecified back pain laterality, unspecified chronicity Gastroesophageal reflux disease without esophagitis Morbid obesity with BMI of 45.0-49.9, adult (HCC) Tobacco use Wheelchair dependent Pre-operative laboratory examination Expected: 07/23/2023, Expires: 07/23/2024 [facility] Comment on above: Expected: 07/23/2023, Expires: Start: 07-23-2023 End: 07-23-2024 Cobalamin (Vitamin B12) [Mass/volume] in Serum or Plasma Vitamin B12 Lab Routine Back pain, unspecified back location, unspecified back pain laterality, unspecified chronicity Gastroesophageal reflux disease without esophagitis Morbid obesity with BMI of 45.0-49.9, adult (HCC) Tobacco use Wheelchair dependent Pre-operative laboratory examination Expected: 07/23/2023, Expires: 07/23/2024 [facility] Comment on above: Expected: 07/23/2023, Expires: Start: 07-23-2023 End: 07-23-2024 Comprehensive metabolic 1998 panel - Serum or Plasma Comprehensive metabolic panel Lab Routine Back pain, unspecified back location, unspecified back pain laterality, unspecified chronicity Gastroesophageal reflux disease without esophagitis Morbid obesity with BMI of 45.0-49.9, adult (HCC) Tobacco use Wheelchair dependent Pre-operative laboratory examination Expected: 07/23/2023, Expires: 07/23/2024 [facility] Comment on above: Expected: 07/23/2023, Expires: Start: 07-23-2023 End: 07-23-2024 Ferritin [Mass/volume] in Serum or Plasma Ferritin Lab Routine Back pain, unspecified back location, unspecified back pain laterality, unspecified chronicity Gastroesophageal reflux disease without esophagitis Morbid obesity with BMI of 45.0-49.9, adult (HCC) Tobacco use Wheelchair dependent Pre-operative laboratory examination Expected: 07/23/2023, Expires: 07/23/2024 [facility] Comment on above: Expected: 07/23/2023, Expires: Start: 07-23-2023 End: 07-23-2024 Folate [Mass/volume] in Serum or Plasma Folate Lab Routine Back pain, unspecified back location, unspecified back pain laterality, unspecified chronicity Gastroesophageal reflux disease without esophagitis Morbid obesity with BMI of 45.0-49.9, adult (HCC) Tobacco use Wheelchair dependent Pre-operative laboratory examination Expected: 07/23/2023, Expires: 07/23/2024 [facility] Comment on above: Expected: 07/23/2023, Expires: Start: 07-23-2023 End: 07-23-2024 Hemoglobin A1c measurement Hemoglobin A1c Lab Routine Back pain, unspecified back location, unspecified back pain laterality, unspecified chronicity Gastroesophageal reflux disease without esophagitis Morbid obesity with BMI of 45.0-49.9, adult (HCC) Tobacco use Wheelchair dependent Pre-operative laboratory examination Expected: 07/23/2023, Expires: 07/23/2024 [facility] Work Phone: Comment on above: Expected: 07/23/2023, Expires: Start: 07-23-2023 End: 07-23-2024 Iron and Iron binding capacity panel - Serum or Plasma Iron Lab Routine Back pain, unspecified back location, unspecified back pain laterality, unspecified chronicity Gastroesophageal reflux disease without esophagitis Morbid obesity with BMI of 45.0-49.9, adult (HCC) Tobacco use Wheelchair dependent Pre-operative laboratory examination Expected: 07/23/2023, Expires: 07/23/2024 [facility] Comment on above: Expected: 07/23/2023, Expires: Start: 07-23-2023 End: 07-23-2024 Lipid 1996 panel - Serum or Plasma Lipid panel Lab Routine Back pain, unspecified back location, unspecified back pain laterality, unspecified chronicity Gastroesophageal reflux disease without esophagitis Morbid obesity with BMI of 45.0-49.9, adult (HCC) Tobacco use Wheelchair dependent Pre-operative laboratory examination Expected: 07/23/2023, Expires: 07/23/2024 [facility] Comment on above: Expected: 07/23/2023, Expires: Start: 07-23-2023 End: 07-23-2024 Magnesium [Mass/volume] in Serum or Plasma Magnesium Lab Routine Back pain, unspecified back location, unspecified back pain laterality, unspecified chronicity Gastroesophageal reflux disease without esophagitis Morbid obesity with BMI of 45.0-49.9, adult (HCC) Tobacco use Wheelchair dependent Pre-operative laboratory examination Expected: 07/23/2023, Expires: 07/23/2024 [facility] Comment on above: Expected: 07/23/2023, Expires: Start: 07-23-2023 End: 07-23-2024 Thyrotropin [Units/volume] in Serum or Plasma TSH Lab Routine Back pain, unspecified back location, unspecified back pain laterality, unspecified chronicity Gastroesophageal reflux disease without esophagitis Morbid obesity with BMI of 45.0-49.9, adult (HCC) Tobacco use Wheelchair dependent Pre-operative laboratory examination Expected: 07/23/2023, Expires: 07/23/2024 [facility] Comment on above: Expected: 07/23/2023, Expires: Start: 07-23-2023 End: 07-23-2024 Vitamin B1, whole blood Vitamin B1, whole blood Lab Routine Back pain, unspecified back location, unspecified back pain laterality, unspecified chronicity Gastroesophageal reflux disease without esophagitis Morbid obesity with BMI of 45.0-49.9, adult (HCC) Tobacco use Wheelchair dependent Pre-operative laboratory examination Expected: 07/23/2023, Expires: 07/23/2024 [facility] Comment on above: Expected: 07/23/2023, Expires: Start: 07-23-2023 End: 07-23-2024 XR Abdomen and RF Gastrointestinal tract upper W contrast PO FL upper GI w KUB Imaging Routine Gastroesophageal reflux disease without esophagitis Expected: 07/23/2023, Expires: 07/23/2024 [facility] Comment on above: Expected: 07/23/2023, Expires: Start: 07-23-2023 End: 07-23-2024 Zinc Zinc Lab Routine Back pain, unspecified back location, unspecified back pain laterality, unspecified chronicity Gastroesophageal reflux disease without esophagitis Morbid obesity with BMI of 45.0-49.9, adult (HCC) Tobacco use Wheelchair dependent Pre-operative laboratory examination Expected: 07/23/2023, Expires: 07/23/2024 [facility] Comment on above: Expected: 07/23/2023, Expires: Start: 05-24-2023 Covid-19 Vaccine ( season) Covid-19 Vaccine () [facility] Start: 05-24-2023 Influenza vaccination [facility] Start: 05-17-2023 Simple rpr scalp/neck/ax/genit/trun k 7.6-12.5cm RPR S/N/AX/GEN/TRK7.6-12.5C M [facility] Start: 02-06-2023 Application long leg splint thigh ankle/toes APPLICATION LONG LEG SPLINT [facility] Start: 05-24-2022 Influenza vaccination [facility] Start: 02-07-2021 COLOGUARD (FIT-DNA) COLOGUARD (FIT-DNA) [facility] Start: 02-07-2021 Colonoscopy COLONOSCOPY [facility] Start: 02-07-2021 COLORECTAL CANCER SCREENING COLORECTAL CANCER SCREENING [facility] Start: 02-07-[address] COLONOGRAPHY [facility] Start: 02-07-2021 FECAL OCCULT BLOOD FECAL OCCULT BLOOD [facility] Start: 02-07-2021 LIPID SCREEN LIPID SCREEN [facility] Start: 02-07-2021 Screening for malignant neoplasm of colon [facility] Start: 02-07-2021 SIGMOIDOSCOPY SIGMOIDOSCOPY [facility] Start: 11-21-2016 End: 11-21-2016 Transition of Care Transition of Care Folrecita Johnson MD, [facility], [address], [place], [address] [employer] [facility] Work Phone: Start: 11-19-2016 End: 11-19-2016 X-ray exam, knee, 4 or more X-Ray, Knee [employer] [facility] Work Phone: Start: 10-10-2016 End: 03-15-2017 Physical Therapy General Physical Therapy [facility], [address] [place] [address], [address] [employer] [facility] Work Phone: Start: 10-03-2016 End: 10-03-2016 Physical Therapy General Physical Therapy [facility], [address] [place] [address], [address] [employer] [facility] Work Phone: Start: 09-12-2016 End: 09-12-2016 X-ray exam, knee, 4 or more X-Ray, Knee [employer] [facility] Work Phone: Start: 07-20-2016 End: 08-24-2016 X-ray exam, knee, 4 or more X-Ray, Knee [employer] [facility] Work Phone: Start: 2016 Mammography [facility] Start: 2016 Screening for malignant neoplasm of breast [facility] Start: 06-08-2015 End: 06-13-2015 Pain Management Pain Management Traci Solano, [address] [place] [address], [address], [place], [address] [employer] [facility] Work Phone: Start: 04-13-2015 End: 04-13-2015 Physical Therapy General Physical Therapy [facility], [facility], [place], [address] [employer] [facility] Work Phone: Start: 02-02-2015 End: 08-24-2016 Mri joint upr extrem w/o dye MRI Joint Upper Extremity [employer] [facility] Work Phone: Start: 01-24-2015 End: 08-24-2016 X-ray exam of shoulder X-Ray, Shoulder [facility] [employer] [facility] Work Phone: Start: 07-26-2014 End: 08-24-2016 X-ray exam, knee, 4 or more X-Ray, Knee [employer] [facility] Work Phone: Start: 02-07-2006 HPV TESTING HPV TESTING [facility] Start: 02-07-2006 Screening for malignant neoplasm of cervix [facility] Start: 01-16-2004 Urine microalbumin profile [facility] Start: 02-07-1997 PAP TESTING PAP TESTING [facility] Start: 02-07-1997 Screening for malignant neoplasm of cervix [facility] Start: 02-07-1995 Hepatitis A Vaccines (1 of 2 - Risk 2-dose series) Hepatitis A Vaccines (1 of 2 - Risk 2-dose series) [facility] Start: 02-07-1995 Hepatitis B Vaccine (1 of 3 - 19+ 3-dose series) Hepatitis B Vaccine (1 of 3 - 19+ 3-dose series) [facility] Start: 02-07-1995 Hepatitis B Vaccines (1 of 3 - 19+ 3-dose series) Hepatitis B Vaccines (1 of 3 - 19+ 3-dose series) [facility] Start: 02-07-1994 Anxiety Screening Anxiety Screening [facility] Start: 02-07-1994 Diabetes mellitus screening Diabetes Screening [facility] Start: 02-07-1994 HEPATITIS C SCREENING HEPATITIS C SCREENING [facility] Start: 02-07-1994 HIV SCREENING HIV SCREENING [facility] Start: 1988 Depresssion Monitoring Depresssion Monitoring [facility] Start: 02-22-1982 IPV Vaccines (3 of 3 - 4-dose series) IPV Vaccines (3 of 3 - 4-dose series) [facility] Start: 02-07-1982 PNEUMOCOCCAL (1 - PCV) PNEUMOCOCCAL (1 - PCV) [facility] Start: 02-07-1982 Pneumococcal vaccination Pneumococcal Vaccine (1 - PCV) [facility] Start: 02-07-1982 Pneumococcal Vaccine: Pediatrics (0 to 5 Years) and At-Risk Patients (6 to 64 Years) (1 - PCV) Pneumococcal Vaccine: Pediatrics (0 to 5 Years) and At-Risk Patients (6 to 64 Years) (1 - PCV) [facility] Start: 02-07-1982 Pneumococcal Vaccine: Pediatrics (0 to 5 Years) and At-Risk Patients (6 to 64 Years) (1 of 2 - PCV) Pneumococcal Vaccine: Pediatrics (0 to 5 Years) and At-Risk Patients (6 to 64 Years) (1 of 2 - PCV) [facility] Start: 02-07-1981 COVID-19 VACCINE (#1) COVID-19 VACCINE (#1) [facility] Start: 02-07-1977 Hepatitis A Vaccines (1 of 2 - Risk 2-dose series) Hepatitis A Vaccines (1 of 2 - Risk 2-dose series) [facility] Start: 1976 COVID-19 VACCINE (#1) COVID-19 VACCINE (#1) [facility] Start: 1976 HEPATITIS B (1 of 3 - 3-dose series) HEPATITIS B (1 of 3 - 3-dose series) [facility] Start: 1976 Hepatitis B Vaccine (1 of 3 - 3-dose series) Hepatitis B Vaccine (1 of 3 - 3-dose series) [facility] Start: 1976 Hepatitis B Vaccines (1 of 3 - 3-dose series) Hepatitis B Vaccines (1 of 3 - 3-dose series) [facility] Start: 1976 HIV screening HIV Screening [facility] Start: 1976 Screening for malignant neoplasm of breast Breast Cancer Screening [facility] Start: 1976 Screening for malignant neoplasm of colon [facility] End: 04-08-2025 Bacteria identified in Urine by Culture [facility] Work Phone: Comment on above: Once for 1 Occurrences starting 04/08/20 until 04/08/2025 End: 07-26-2024 SCHMITT CHANGE SCHMITT CHANGE Procedures Routine Atonic neurogenic bladder 99 Occurrences starting 07/29/2023 until 07/26/2024 [facility] Work Phone: Comment on above: 99 Occurrences starting 07/29/2023 until 07/26/2024 Patient Education [facility] Work Phone: Patient referral [facility] Work Phone: End: 06-30-2025 SUPRAPUBIC TUBE CHANGE SUPRAPUBIC TUBE CHANGE Procedures Routine Neurogenic bladder 99 Occurrences starting 06/30/2024 until 06/30/2025 [facility] Work Phone: Comment on above: 99 Occurrences starting 06/30/2024 until 06/30/2025 Urine culture [facility] Urine culture [facility] Urine culture [facility] Immunizations Immunization Date Immunization Notes Care Provider Roel roque 07-09-2023 influenza virus vaccine, unspecified formulation Nurse Wstr Work Phone: [facility] 05-17-2023 tetanus toxoid, reduced diphtheria toxoid, and acellular pertussis vaccine, adsorbed [facility] 08-29-2016 influenza, injectable, quadrivalent, preservative free [facility] 08-29-2016 influenza, seasonal, injectable [facility] 08-29-2016 influenza virus vaccine, unspecified formulation Chetan Rocha CNP Work Phone: [facility] 03-28-2015 tetanus and diphtheria toxoids, adsorbed, preservative free, for adult use (2 Lf of tetanus toxoid and 2 Lf of diphtheria toxoid) [facility] 01-15-1994 diphtheria and tetanus toxoids, adsorbed for pediatric use [employer] Work Phone: [facility] Work Phone: 02-14-1990 diphtheria and tetanus toxoids, adsorbed for pediatric use [employer] Work Phone: [facility] Work Phone: 08-24-1981 DTP-Haemophilus influenzae type b conjugate vaccine [employer] Work Phone: [facility] Work Phone: 08-24-1981 trivalent poliovirus vaccine, live, oral [employer] Work Phone: [facility] Work Phone: 08-24-1981 poliovirus vaccine, unspecified formulation Minh TENORIO Work Phone: [facility] 07-08-1981 tuberculin skin test ; purified protein derivative solution, intradermal Nurse Wstr Work Phone: [facility] 06-29-1981 measles, mumps and rubella virus vaccine [employer] Work Phone: [facility] Work Phone: 06-29-1981 trivalent poliovirus vaccine, live, oral [employer] Work Phone: [facility] Work Phone: 10-13-1978 DTP-Haemophilus influenzae type b conjugate vaccine [employer] Work Phone: [facility] Work Phone: NEGATED: Highlighted row has not occurred!07-30-2022 Influenza, injectable, Madin Christiana Canine Kidney, quadrivalent with preservative Chetan Rodríguez [employer] - [facility] Work Phone: [facility] Comment on above: Deferred: Other - d/ c'd Payers Date Payer Category Payer Self-pay [id number] 2022 Medicaid [place] [id number] 2022-Present [phone] [address] [place] [address] Medicaid [id number] 2021 Medicaid [id number] 2021 Medicaid [id number] 2014 Unknown [id number] 1976 Unknown [id number] 1976 Unknown [id number] 1976 Unknown [id number] Unknown [id number] Unknown [id number] Unknown [id number] Unknown [id number] Unknown [id number] Unknown [id number] Unknown [id number] Unknown [id number] Unknown [id number] Social History Date Type Detail Facility Start: 06-18-2023 End: 04-12-2025 Tobacco smoking status NHIS Smokes tobacco daily [facility] Work Phone: History of tobacco use Cigarette Smoker [facility] Start: 02-22-2022 End: 06-30-2024 Alcohol intake Ex-drinker (finding) [facility] Start: 1975 Sex Assigned At Not on file [facility] Start: 02-06-2022 End: 08-09-2022 Exposure to SARS-CoV-2 (event) Not sure [facility] Start: 01-18-2021 End: 01-19-2024 Tobacco smoking status NYIS Unknown if ever smoked [facility] Start: 04-11-2020 None [facility] Start: 04-11-2020 Heroin [facility] Start: 09-09-2019 Spouse/ Signif icant Other;Homeless;- [facility] Start: 01-18-2021 Cigarettes [facility] Start: 1975 Sex Assigned At Female [facility] Start: 02-22-2022 End: 06-30-2024 History of Social function [facility] Start: 02-22-2022 End: 06-30-2024 Tobacco use panel [facility] National Score (1-100), lower number is lower risk 90 [facility] Start: 06-18-2023 End: 06-30-2024 Tobacco use and exposure Smokeless tobacco non-user [facility] Start: 06-25-2019 Sex Female (finding) [facility] NEGATED: Highlighted row [facility] Mental Status Date Assessment Result Facility 04-01-2025 Cognitive function Level Of Cons ciousness Awake;Alert;Appropriate;Follow s Commands [facility] Work Phone: Clinical Notes 02-12-2021 to 04-12-2025 Note Date & Type Note Facility 04-12-2025 Discharge summary [facility] 04-12-2025 Discharge summary Note Date/Time April 12, 2025 7:19pm [facility] [address] [place] [address] Emergency Department Summary 04/12/25 MR#: [id number] Acct: [id number] Name: KATARZYNA VARGAS Rep #:[id number] : 1975 50 From: Renato Henson MD PCP: Dr. Darrel Veloz, DO Status:REG ER Location: ED HPI HPI - Female History of Present Illness Chief Complaint: Complaint Informant: patient Narrative Narrative: 50-year-old female history of DVT, history of neurogenic bladder for which is a chronic suprapubic catheter which she has had for years. Follows up with urologist at the [facility]. She also has a history of polysubstance abuse, bipolar and prior MRSA infection for which she has decreased sensation from mid chest down. She is able to ambulate however. Believes a suprapubic catheter may be clogged. States she has had limited output today. She is also had nausea and vomiting. Also complains of her urethra is painful. Prior similar symptoms: Yes Recent Illness/Hospitalization: No PFSH PFSH Medical History Functional dyspepsia Acute embolism and thrombosis of unspecified deep veins of left lower extremity Cognitive communication deficit Arthropathy Bipolar 1 disorder Muscle weakness (generalized) Hepatitis Smoker Asthma IVDU (intravenous drug user) Polysubstance (including opioids) dependence, daily use Opiate dependence Depression Alcohol abuse Home Medications ?Medication ?Instructions ?Recorded ?Last Taken ?Type albuterol sulfate 90 mcg/actuation 2 puff inhalation Q 4H PRN SOB 05/17/23 Unknown History aerosol inhaler (Ventolin HFA) amitriptyline 10 mg tablet 10 mg PO QHS 05/17/23 Unkno wn History baclofen 20 mg tablet 20 mg PO DAILY 05/17/23 Unkn own History fluorometholone 0.1 % eye 1 drp ophthalmic (eye) BID 0 05/17/23 Unknown History drops,suspension gabapentin 800 mg tablet 800 mg PO 4X/DAY 05/17/23 Un known History ibuprofen 800 mg tablet 800 mg PO Q8H PRN pain 05/17 Unknown History loratadine 10 mg tablet 10 mg PO DAILY PRN allergy s ymptoms 05/17/23 Unknown History nystatin 100,000 unit/gram topical 1 applic topical BI D 05/17/23 Unknown History powder promethazine 25 mg tablet 12.5 mg PO Q4H PRN allergy s ymptoms 05/17/23 Unknown History atorvastatin 20 mg tablet 20 mg PO DAILY 01/19/24 Unkn own History coenzyme Q10 100 mg capsule 100 mg PO DAILY 01/19/24 U nknown History multivitamin 1 tab PO DAILY 01/19/24 Unkn own History pantoprazole 40 mg tablet,delayed 40 mg PO DAILY 01/18 Unknown History release acetaminophen 325 mg tablet 650 mg PO Q6H PRN fever or pain 03/19/25 Unknown History aluminum hydrox-magnesium carb 95 30 ml PO Q4H PRN dys pepsia 03/19/25 Unknown History mg-358 mg/15 mL oral suspension (Acid Gone Antacid) benztropine 0.5 mg tablet 0.5 mg PO QHS 03/19/25 Unkno wn History dextrose 40 % oral gel (Glutose-15) 15 g PO Q15M PRN h ypoglycemia 03/19/25 Unknown History diazepam 10 mg tablet 10 mg PO DAILY PRN alcohol 0 03/19/25 Unknown History withdrawal diazepam 10 mg tablet 10 mg PO QHS 03/19/25 Unknow n History duloxetine 60 mg capsule,delayed 120 mg PO BID 5 Unknown History release furosemide 20 mg tablet 20 mg PO DAILY 03/19/25 Unkn own History glucagon 1 mg solution for 1 mg IM Q20M PRN hypoglycem ia 03/19/25 Unknown History injection (Glucagon Emergency Kit) guaifenesin 100 mg/5 mL oral 200 mg PO Q4H PRN congest ion 03/19/25 Unknown History liquid (Adult Tussin Chest Congestion) loperamide 2 mg capsule 2 mg PO Q6H PRN loose stool 03/19/25 Unknown History (Anti-Diarrheal (loperamide)) melatonin 5 mg tablet 10 mg PO QHS 03/19/25 Unknow n History oxybutynin chloride 15 mg 15 mg PO DAILY 03/19/25 Unkn own History tablet,extended release 24 hr polyvinyl alcohol-povidone 0.5 1 - 2 drp EACH EYE Q1H PRN dry 03/19/25 Unknown History %-0.6 % eye drops (Clear Eyes eye(s) Natural Tears) sennosides 8.6 mg-docusate sodium 2 tab-cap PO BID Unknown History 50 mg capsule (Senna Plus) sulfamethoxazole 800 1 tab PO BID #6 TABLETS 02/22 04/16 Unknown Rx mg-trimethoprim 160 mg tablet cephalexin 500 mg capsule 500 mg PO BID 5 days #10 cap s 04/01/25 Unknown Rx cephalexin 500 mg capsule 500 mg PO Q8H 7 days #21 cap s 04/12/25 Unknown Rx Allergy/AdvReac Type Severity Reaction Status Date / Time hydrocodone bitartrate (From Allergy Itching Verified 04/12/25 16:48 Vicodin) Surgical History Chronic suprapubic catheter History of cholecystectomy Social History household members: none Smoking Status: Current every day smoker tobacco type: cigarettes ROS ROS ED ROS Narrative Nausea vomiting. Urethral pain. Constitutional Constitutional ED: Denies chills or fever(s) Eyes Eyes: Denies blurry vision ENT ENT ED: Denies ear pain Cardiovascular Cardiovascular: Denies chest pain Respiratory/Chest Respiratory/Chest: Denies cough Gastrointestinal Gastrointestinal: Reports nausea and vomiting; Denies abdominal pain Genitourinary Genitourinary ED: Denies dysuria or hematuria Musculoskeletal Musculoskeletal: Denies arthralgias Integumentary Denies abscess Neurologic Neurologic: Denies headache(s) Psychiatric Psychiatric: Denies anxiety Endocrine Endocrinology: Denies heat intolerance Hematologic/Lymphatic Hematologic/Lymphatic: Denies easy bleeding Allergic/Immunologic Allergic/Immunologic ED: Denies mouth swelling EXAM Physical Exam Narrative Exam Narrative: 50-year-old female sitting upright in bed. Vital signs stable afebrile. No acute distress. No one is present in the room. H EENT exam pupils round react to light. Moist pink members. Neck nontender no JVD. Back nontender. Lungs clear to auscultation bilaterally. Heart regular rhythm rate about 100 no murmur. Chest wall ribs nontender. Abdomen soft nondistended normal bowel sounds without peritoneal signs. Suprapubic catheter in place. Clear dark yellow urine about 100 to 200 cc in the catheter. Moves all 4 extremities. Neurologically she is awake and alert. Decreased sensation from the waist down but is able to move her legs. Const Vital Signs: 04/12/25 16:44 Temperature 98.4 F Temperature Source Oral Pulse Rate 101 H Respiratory Rate 16 Blood Pressure 132/102 H Blood Pressure Mean 112 Pulse Ox 100 Oxygen Delivery Method Room Air Positive well nourished, well developed and obese; Negative for cachectic, contractures or unkempt General Appearance ED: well developed and NAD; Negative for unkempt, cachectic or contractures Nutritional Appearance: obese; Negative for cachectic HEENT Reports moist mucous membranes Eyes PERRL and EOMs intact bilaterally Neck no lymphadenopathy, supple and no JVD Chest Wall inspection of chest normal and palpation of chest normal Resp normal respiratory effort and clear to auscultation bilaterally Cardio regular rate, regular rhythm, S1 normal heart sound, no murmurs and no JVD GI normal to inspection, nondistended, normoactive bowel sounds, soft to palpation,non-tender and non-distended GI Narrative: Suprapubic catheter in place. Palpation: Negative for tender, guarding or mass Back/Spine no CVA tenderness Extremity normal to inspection and full ROM Neuro oriented x3, CN's II-XII intact bilaterally and No no sensory deficits noted Sensorium / Orientation: alert, oriented to person, oriented to place and oriented to time Motor Exam: strength 5/5 throughout Psych mental status grossly normal Appearance: Negative for unkempt Skin no rashes or lesions noted and no wounds MDM MDM MDM Narrative Medical decision making narrative: 50-year-old female concerned that her suprapubic catheter may be obstructed. Nurse will irrigate. Will check a UA chemistries and CBC due to her nausea and vomiting to be given a liter of fluid and Zofran. 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 Dorsum between the MCP and PIP. About 2 inches in length. Locally anesthetized lidocaine. Cleaned with Shur-Clens. Washed and irrigated with saline. Explored. I cannot actually see the tendon because it is a laceration that undermines the skin and it is not wide enough for me to see into the tendon but he cannot extend the distal phalanx I expect he has a laceration of the extensor tendon. Area was irrigated with saline. Closed using 3 simple erupted 4-0 Ethilon sutures. He will be referred to plastic surgery for follow-up. For tendon repair. Discharge Plan Triage Chief Complaint: Complaint ED Provider: Renato Henson Dx/Rx/DC Orders Clinical Impression: Laceration of left thumb, Extensor tendon laceration, finger, open wound, Encounter related to worker's compensation claim Instructions: ED Laceration, Hand: All Closures, ED Tendon Laceration Prescriptions: New cephalexin 500 mg capsule 500 mg PO Q8H 7 Days Qty: 21 0RF No Action albuterol sulfate [Ventolin HFA] 90 mcg/actuation HFA aerosol inhaler 2 puff INHALATION Q4H PRN (Reason: SOB) amitriptyline 10 mg tablet 10 mg PO QHS baclofen 20 mg tablet 20 mg PO DAILY fluorometholone 0.1 % drops,suspension 1 drp ophthalmic (eye) BID gabapentin 800 mg tablet 800 mg PO 4X/DAY ibuprofen 800 mg tablet 800 mg PO Q8H PRN (Reason: pain) Rx Instructions: WITH FOOD OR MILK loratadine 10 mg tablet 10 mg PO DAILY PRN (Reason: allergy symptoms) nystatin 100,000 unit/gram powder 1 applic TOPICAL BID promethazine 25 mg tablet 12.5 mg PO Q4H PRN (Reason: allergy symptoms) multivitamin Tablet 1 tab PO DAILY atorvastatin 20 mg tablet 20 mg PO DAILY pantoprazole 40 mg tablet,delayed release (DR/EC) 40 mg PO DAILY coenzyme Q10 100 mg capsule 100 mg PO DAILY benztropine 0.5 mg tablet 0.5 mg PO QHS diazepam 10 mg tablet 10 mg PO QHS duloxetine 60 mg capsule,delayed release(DR/EC) 120 mg PO BID furosemide 20 mg tablet 20 mg PO DAILY guaifenesin [Adult Tussin Chest Congestion] 100 mg/5 mL liquid 200 mg PO Q4H PRN (Reason: congestion) Glucagon Emergency Kit (human) 1 mg recon soln 1 mg IM Q20M PRN (Reason: hypoglycemia) Rx Instructions: until target blood sugar attained dextrose [Glutose-15] 40 % gel 15 g PO Q15M PRN (Reason: hypoglycemia) Rx Instructions: until symptoms of low blood sugar are controlled Acid Gone Antacid 95-358 mg/15 mL suspension 30 ml PO Q4H PRN (Reason: dyspepsia) melatonin 5 mg tablet 10 mg PO QHS oxybutynin chloride 15 mg tablet extended release 24hr 15 mg PO DAILY Senna Plus 8.6-50 mg capsule 2 tab-cap PO BID loperamide [Anti-Diarrheal (loperamide)] 2 mg capsule 2 mg PO Q6H PRN (Reason: loose stool) Rx Instructions: administer after each loose stool until symptoms controlled; do not exceed 8 mg per 24 hrs diazepam 10 mg tablet 10 mg PO DAILY PRN (Reason: alcohol withdrawal) Rx Instructions: IN ADDITION TO ROUTINE DOSE Clear Eyes Natural Tears 0.5-0.6 % drops 1 - 2 drp EACH EYE Q1H PRN (Reason: dry eye(s)) acetaminophen 325 mg tablet 650 mg PO Q6H PRN (Reason: fever or pain) sulfamethoxazole-trimethoprim 800-160 mg tablet 1 tab PO BID Qty: 6 0RF cephalexin 500 mg capsule 500 mg PO BID 5 Days Qty: 10 0RF Primary Care Provider: Darrel Veloz Referrals: Renato Henson MD [Emergency Provider] - Darrel Veloz DO [Primary Care Provider] - Yvon Schaeffer MD [Med Staff - Active Staff] - As soon as possible (Call their office tomorrow morning. Tell them you are in the ER. You have a extensor tendon laceration of your left thumb that needs repaired and followed up.) Activity Restrictions/Additional Instructions: Keep the thumb laceration dry and clean. You can clean it off but then it is [place] dry thoroughly. Do not soak in any water. Motrin and Tylenol for pain. Ice and elevate. Follow-up with Dr. Yvon Mckay plastic surgery to evaluate your thumb for an extensor tendon laceration. The antibiotic Keflex 3 times a day to prevent infection. Print Language: Finnish Disposition Disposition: Home, Self Care What to do if you have Problems For any increased pain, shortness of breath, bleeding, nausea or vomiting, chestpain, or any unexpected problems, contact your Primary Care Provider. Call [facility] ([phone]) or report to the closest Emergency Room. Call 911 if necessary. 04/12/25 [id number] <Electronically signed by Renato Henson MD> Cosigner Signature (if applicable): CC: Dr. Darrel Veloz, ~ Signed ADDENDUM by Dr. Renato Henson MD on 04/12/25 at 1919 Repeat exam patient is doing well at 7:16 PM. She feels comfortable and discharged home. CBC shows a white count of 9 H&H 11.7 and 34 which is consistent with her baseline. Electrolytes show potassium 3.2 which she has been low before. Gap 12. BUN and creatinine 11.8 and 0.65 again consistent with baseline. Glucose 101. UA shows positive nitrates 10-25 white cells 2+ bacteria since suprapubic catheter however. Last time she had UA look like this it was contaminated. I will not treat this. Urine culture be sent. Patient was given a sandwich and some dry control be discharged to home. The nurse did irrigate her catheter suprapubic catheter and it irrigated well. 04/12/251918<Electronically signed by Renato Henson MD> Cosigner Signature (if applicable): cc: Dr. Darrel Veloz DO ~* Signed [facility] Work Phone: [phone] Hospital Discharge instructions* Discharge Instructions* Kaley Taveras DO - 04/08/2025 8:19 PM EDT Please return to the ED for any new or worsening symptoms. We will contact you by telephone if yoururine culture returns positive for bacterial growth. Otherwise please follow-up with your primary care provider soon as possible. * Attachments The following attachments cannot be sent through Care Everywhere. * Suprapubic Catheter Care ([place]) documented in this encounterMount [facility] [id number] History of Present illness Narrative* Enrique Thompson RN - 04/08/2025 6:41 PM EDT Pt arrives via EMS: from treatment facility. Pt states her suprapubic cath has not been flushed or changed in 3 months. AOx4, resp even and unlabored. documented in this encounterMount [facility]ittany [facility] [id number] Emergency department Note* ED Bed Hold Note - Koki Mcleod RN - 04/08/2025 6:39 PM EDT Bed: [facility] Expected date: Expected time: Means of arrival: Comments: 111 50F suprapubic cath needs changed, hasn't been changed in 2 months, eTA 1 [facility] [id number] Miscellaneous Notes* ED Bed Hold Note - Koki cMleod RN - 04/08/2025 6:39 PM EDT Bed: [facility] Expected date: Expected time: Means of arrival: Comments: 111 50F suprapubic cath needs changed, hasn't been changed in 2 months, eTA 1 documented in this encounterMount [facility]any [facility] [id number] Discharge summary Author Samuel Hodges [facility] Note Date/Time April 01, 2025 3:43 pm [facility] Medical Records Department [address] [place] [address] Emergency Department Summary 04/01/25 MR#: [id number] Acct: [id number] Name: KATARZYNA VARGAS Rep #:[id number] : 1975 50 From: Samuel Hodges DO PCP: Dr. Darrel Veloz DO Status:REG ER Location: ED ADDENDUM by Dr. Samuel Hodges DO on 04/01/25 at 1543 Patient's EKG reviewed showed sinus rhythm with a rate of 78 bpm. 04/01/25 1543<Electronically signed by Samuel Hodges DO> Cosigner Signature (if applicable): cc: Dr. Darrel Veloz DO ~* Signed HPI History of Present Illness Chief Complaint: Edema Narrative Narrative: Patient is a 50-year-old female with past medical history of polysubstance abuse, bipolar 1 disorder, suprapubic catheter secondary to paraplegia per the patient, alcohol abuse who presented to the emergency department the chief complaint of neck swelling bilaterally. Patient states that she went to bed andwhen she woke up she had swelling in her neck on both sides and was concerned therefore she came here for further evaluation management. Patient did note that last time she used methamphetamine was on Saturday. She states that she developed paraplegia after developing staph infection in her back after using a dirty needle. Patient states that she feels like she is swallowing normally forself without any difficulty PFSH PFSH Medical History Functional dyspepsia Acute embolism and thrombosis of unspecified deep veins of left lower extremity Cognitive communication deficit Arthropathy Bipolar 1 disorder Muscle weakness (generalized) Hepatitis Smoker Asthma IVDU (intravenous drug user) Polysubstance (including opioids) dependence, daily use Opiate dependence Depression Alcohol abuse Home Medications ?Medication ?Instructions ?Recorded ?Last Taken ?Type albuterol sulfate 90 mcg/actuation 2 puff inhalation Q 4H PRN SOB 05/17/23 Unknown History aerosol inhaler (Ventolin HFA) amitriptyline 10 mg tablet 10 mg PO QHS 05/17/23 Unkno wn History baclofen 20 mg tablet 20 mg PO DAILY 05/17/23 Unkn own History fluorometholone 0.1 % eye 1 drp ophthalmic (eye) BID 0 05/17/23 Unknown History drops,suspension gabapentin 800 mg tablet 800 mg PO 4X/DAY 05/17/23 Un known History ibuprofen 800 mg tablet 800 mg PO Q8H PRN pain 05/17 Unknown History loratadine 10 mg tablet 10 mg PO DAILY PRN allergy s ymptoms 05/17/23 Unknown History nystatin 100,000 unit/gram topical 1 applic topical BI D 05/17/23 Unknown History powder promethazine 25 mg tablet 12.5 mg PO Q4H PRN allergy s ymptoms 05/17/23 Unknown History atorvastatin 20 mg tablet 20 mg PO DAILY 01/19/24 Unkn own History coenzyme Q10 100 mg capsule 100 mg PO DAILY 01/19/24 U nknown History multivitamin 1 tab PO DAILY 01/19/24 Unkn own History pantoprazole 40 mg tablet,delayed 40 mg PO DAILY 01/18 Unknown History release acetaminophen 325 mg tablet 650 mg PO Q6H PRN fever or pain 03/19/25 Unknown History aluminum hydrox-magnesium carb 95 30 ml PO Q4H PRN dys pepsia 03/19/25 Unknown History mg-358 mg/15 mL oral suspension (Acid Gone Antacid) benztropine 0.5 mg tablet 0.5 mg PO QHS 03/19/25 Unkno wn History dextrose 40 % oral gel (Glutose-15) 15 g PO Q15M PRN h ypoglycemia 03/19/25 Unknown History diazepam 10 mg tablet 10 mg PO DAILY PRN alcohol 0 03/19/25 Unknown History withdrawal diazepam 10 mg tablet 10 mg PO QHS 03/19/25 Unknow n History duloxetine 60 mg capsule,delayed 120 mg PO BID 5 Unknown History release furosemide 20 mg tablet 20 mg PO DAILY 03/19/25 Unkn own History glucagon 1 mg solution for 1 mg IM Q20M PRN hypoglycem ia 03/19/25 Unknown History injection (Glucagon Emergency Kit) guaifenesin 100 mg/5 mL oral 200 mg PO Q4H PRN congest ion 03/19/25 Unknown History liquid (Adult Tussin Chest Congestion) loperamide 2 mg capsule 2 mg PO Q6H PRN loose stool 03/19/25 Unknown History (Anti-Diarrheal (loperamide)) melatonin 5 mg tablet 10 mg PO QHS 03/19/25 Unknow n History oxybutynin chloride 15 mg 15 mg PO DAILY 03/19/25 Unkn own History tablet,extended release 24 hr polyvinyl alcohol-povidone 0.5 1 - 2 drp EACH EYE Q1H PRN dry 03/19/25 Unknown History %-0.6 % eye drops (Clear Eyes eye(s) Natural Tears) sennosides 8.6 mg-docusate sodium 2 tab-cap PO BID Unknown History 50 mg capsule (Senna Plus) sulfamethoxazole 800 1 tab PO BID #6 TABLETS 02/22 04/16 Unknown Rx mg-trimethoprim 160 mg tablet cephalexin 500 mg capsule 500 mg PO BID 5 days #10 cap s 04/01/25 Unknown Rx Allergy/AdvReac Type Severity Reaction Status Date / Time hydrocodone bitartrate (From Allergy Itching Verified 04/01/25 11:22 Vicodin) Surgical History Chronic suprapubic catheter History of cholecystectomy Social History household members: none Smoking Status: Current every day smoker tobacco type: cigarettes ROS ROS ED ROS Narrative Constitutional: Denies any fevers, chills, headaches Eyes, ears, nose, throat: Denies change in vision double vision blurry vision denies and difficulty swallowing Neck: Complains of neck swelling as noted above Cardiovascular: Denies chest pain Respiratory: Denies shortness of breath Abdomen: Denies nausea vomit diarrhea : States that she has suprapubic catheter as noted above Musculoskeletal: Denies back pain Skin: Denies any rashes or lesions EXAM Physical Exam Narrative Exam Narrative: General: Patient lying in bed rest comfortably did not appear to be acute distress Head: Atraumatic, normocephalic Eyes: PERRL bilaterally, EOMI blood, no conjunctival injection noted, mucous membranes dry, posterior visualized uvula midline no concern for peritonsillar abscess, no sublingual swelling, no tenderness to palpation over the mastoids bilaterally Neck: Soft, trachea midline, patient does have swelling bilaterally noted just below her mandibular region no fluctuance noted, no concern for Ludewig's angina Cardiovascular: Regular rate and rhythm no murmurs gallops rubs noted Respiratory: Clear to auscultation bilaterally Abdomen: Soft, nondistended, nontender to palpation Extremities: Radial pulses +2/4 in the bilateral extremities, no pedal edema on exam Neurological: Patient follow commands knew that she was at [facility] 2024 Skin: Warm, dry, intact no rashes or lesions noted Const Vital Signs: 04/01/25 11:22 04/01/25 11:29 04/01/25 11:43 Temperature 97.7 F L Temperature Source Oral Pulse Rate 84 Respiratory Rate 79 H Respiratory Effort Normal Non-Labored Blood Pressure 92/62 Blood Pressure Mean 72 Pulse Ox 100 98 Oxygen Delivery Method Room Air Room Air 04/01/25 15:21 Temperature Temperature Source Pulse Rate 77 Respiratory Rate 28 H Respiratory Effort Blood Pressure 111/72 Blood Pressure Mean 85 Pulse Ox 100 Oxygen Delivery Method Room Air MDM MDM MDM Narrative Medical decision making narrative: Patient is a 50-year-old female who presented to the emergency department the chief complaint of swelling to her neck bilaterally. On the differential diagnosis includes but not limited to reactive lymph nodes, abscess, strep throat, dehydration. Once workup is obtained reviewed she will be reevaluated. Patient will given 30 cc/kg bolus of IV fluids 11:40 AM 2500 mL Patient's CBC was reviewed and showed no evidence leukocytosis white blood count5.5, he was 13.2, platelet count of 212. Patient's INR normal at 1, PT of 13.6. Patient sodium normal 42, potassium is mildly low at 3.1 and she was given 40 mill equivalents orally, creatinine was noted to be 0.62. Patient lactic acid normal at 1.3, AST and ALT are 23 and 15 respectively total bilirubin normal at 0.73. Patient's urinalysis reviewed showed 500 leukocyte esterase positive nitrites with 1+ bacteria this sent for culture she was given a gram Rocephin she will be placed on Keflex. Patient's CT soft tissue neck did not show any acute findings. Social work notified me that her current assisted living facility is sending herto inpatient rehab and she has a bed waiting for her. Per social work she will be transported to the inpatient rehab center. Patient was notified is agreeablethis plan all question concerns answered. Lab Data Labs: Laboratory Results - last 24 hr 04/01/25 04/01/25 12:19 14:05 WBC 5.5 RBC 3.96 L Hgb 13.2 Hct 38.9 MCV 98.2 MCH 33.3 H MCHC 33.9 RDW Std Deviation 47.3 H RDW Coeff of Katie 13.2 Plt Count 212 MPV 9.8 Immature Gran % (Auto) 0.400 Neut % (Auto) 78.9 H Lymph % (Auto) 12.1 L [place] % (Auto) 5.5 Eos % (Auto) 2.2 Baso % (Auto) 0.9 Absolute Neuts (auto) 4.3 Absolute Lymphs (auto) 0.66 L Nucleated RBC % 0 PT 13.6 INR 1.0 APTT 33.1 Sodium 142 Potassium 3.1 L Chloride 100 Carbon Dioxide 22.7 Anion Gap 19 H BUN 9 Creatinine 0.62 L Estim Creat Clear Calc 123.55 Est GFR (MDRD) Non-Af 109 BUN/Creatinine Ratio 13.8 Glucose 73 Lactic Acid 1.3 Calcium 8.8 Total Bilirubin 0.73 AST 23 ALT 15 Alkaline Phosphatase 90 Total Protein 6.4 Albumin 3.3 L Globulin 3.1 Albumin/Globulin Ratio 1.1 Urine Color Straw Urine Clarity Sl. Cloudy Urine pH 6.0 Ur Specific [place] 1.010 Urine Protein Negative Urine Glucose (UA) Normal Urine Ketones 50 H Urine Occult Blood 10 H Urine Nitrite Positive H Urine Bilirubin Negative Urine Urobilinogen Normal Ur Leukocyte Esterase 500 H Urine RBC 0 SEEN Urine WBC 5-10 SEEN Ur Squamous Epith Cells 0-5 SEEN Urine Bacteria 1+ Urine Mucus 0 SEEN Radiography Diagnostic Testing: Clinical Impression(s) from Imaging Studies Soft Tissue Neck CT 04/01/25 11:40 IMPRESSION: Limited study. No acute abnormality is seen. Reading Location: [place] [address] Discharge Plan Triage Chief Complaint: Edema ED Provider: Samuel Hodges Dx/Rx/DC Orders Clinical Impression: UTI (urinary tract infection), Polysubstance abuse, Neck swelling Prescriptions: New cephalexin 500 mg capsule 500 mg PO BID 5 Days Qty: 10 0RF No Action albuterol sulfate [Ventolin HFA] 90 mcg/actuation HFA aerosol inhaler 2 puff INHALATION Q4H PRN (Reason: SOB) amitriptyline 10 mg tablet 10 mg PO QHS baclofen 20 mg tablet 20 mg PO DAILY fluorometholone 0.1 % drops,suspension 1 drp ophthalmic (eye) BID gabapentin 800 mg tablet 800 mg PO 4X/DAY ibuprofen 800 mg tablet 800 mg PO Q8H PRN (Reason: pain) Rx Instructions: WITH FOOD OR MILK loratadine 10 mg tablet 10 mg PO DAILY PRN (Reason: allergy symptoms) nystatin 100,000 unit/gram powder 1 applic TOPICAL BID promethazine 25 mg tablet 12.5 mg PO Q4H PRN (Reason: allergy symptoms) multivitamin Tablet 1 tab PO DAILY atorvastatin 20 mg tablet 20 mg PO DAILY pantoprazole 40 mg tablet,delayed release (DR/EC) 40 mg PO DAILY coenzyme Q10 100 mg capsule 100 mg PO DAILY benztropine 0.5 mg tablet 0.5 mg PO QHS diazepam 10 mg tablet 10 mg PO QHS duloxetine 60 mg capsule,delayed release(DR/EC) 120 mg PO BID furosemide 20 mg tablet 20 mg PO DAILY guaifenesin [Adult Tussin Chest Congestion] 100 mg/5 mL liquid 200 mg PO Q4H PRN (Reason: congestion) Glucagon Emergency Kit (human) 1 mg recon soln 1 mg IM Q20M PRN (Reason: hypoglycemia) Rx Instructions: until target blood sugar attained dextrose [Glutose-15] 40 % gel 15 g PO Q15M PRN (Reason: hypoglycemia) Rx Instructions: until symptoms of low blood sugar are controlled Acid Gone Antacid 95-358 mg/15 mL suspension 30 ml PO Q4H PRN (Reason: dyspepsia) melatonin 5 mg tablet 10 mg PO QHS oxybutynin chloride 15 mg tablet extended release 24hr 15 mg PO DAILY Senna Plus 8.6-50 mg capsule 2 tab-cap PO BID loperamide [Anti-Diarrheal (loperamide)] 2 mg capsule 2 mg PO Q6H PRN (Reason: loose stool) Rx Instructions: administer after each loose stool until symptoms controlled; do not exceed 8 mg per 24 hrs diazepam 10 mg tablet 10 mg PO DAILY PRN (Reason: alcohol withdrawal) Rx Instructions: IN ADDITION TO ROUTINE DOSE Clear Eyes Natural Tears 0.5-0.6 % drops 1 - 2 drp EACH EYE Q1H PRN (Reason: dry eye(s)) acetaminophen 325 mg tablet 650 mg PO Q6H PRN (Reason: fever or pain) sulfamethoxazole-trimethoprim 800-160 mg tablet 1 tab PO BID Qty: 6 0RF Primary Care Provider: Darrel Veloz Referrals: Darrel Veloz DO [Primary Care Provider] - Activity Restrictions/Additional Instructions: Follow-up with your doctor in the outpatient setting. Take Keflex as prescribedfollow-up on urine culture. Return with worsening symptoms or any concerns yourblood work showed a mild hypokalemia therefore you were given potassium supplementation in the emergency department. Your CT of your neck did not show any acute findings today. Print Language: Wolof Disposition Disposition: Home, Self Care What to do if you have Problems For any increased pain, shortness of breath, bleeding, nausea or vomiting, chestpain, or any unexpected problems, contact your Primary Care Provider. Call [facility] ([phone]) or report to the closest Emergency Room. Call 911 if necessary. 04/01/25 1542 <Electronically signed by Samuel Hodges DO> Cosigner Signature (if applicable): CC: Dr. Darrel Veloz DO ~ Signed [facility] Work Phone: [phone] Discharge summary [facility] Medical Records Department [address] [place] [address] Emergency Department Summary 04/01/25 MR#: [id number] Acct: [id number] Name: KATARZYNA VARGAS Rep #:[id number] : 1975 50 From: Samuel Hodges DO PCP: Dr. Darrel Veloz DO Status:REG ER Location: ED ADDENDUM by Dr. Samuel Hodges DO on 04/01/25 at 1543 Patient's EKG reviewed showed sinus rhythm with a rate of 78 bpm. 04/01/25 154 Cosigner Signature (if applicable): cc: Dr. Darrel Veloz DO ~* Signed HPI History of Present Illness Chief Complaint: Edema Narrative Narrative: Patient is a 50-year-old female with past medical history of polysubstance abuse, bipolar 1 disorder, suprapubic catheter secondary to paraplegia per the patient, alcohol abuse who presented to the emergency department the chief complaint of neck swelling bilaterally. Patient states that she went to bed andwhen she woke up she had swelling in her neck on both sides and was concerned therefore shecame here for further evaluation management. Patient did note that last time she used methamphetamine was on Saturday. She states that she developed paraplegia after developing staph infection in her back after using a dirty needle. Patient states that she feels like she is swallowing normally forself without any difficulty PFSH PFS Medical History Functional dyspepsia Acute embolism and thrombosis of unspecified deep veins of left lower extremity Cognitive communication deficit Arthropathy Bipolar 1 disorder Muscle weakness (generalized) Hepatitis Smoker Asthma IVDU (intravenous drug user) Polysubstance (including opioids) dependence, daily use Opiate dependence Depression Alcohol abuse Home Medications ?Medication ?Instructions ?Recorded ?Last Taken ?Type albuterol sulfate 90 mcg/actuation 2 puff inhalation Q 4H PRN SOB 05/17/23 Unknown History aerosol inhaler (Ventolin HFA) amitriptyline 10 mg tablet 10 mg PO QHS 05/17/23 Unkno wn History baclofen 20 mg tablet 20 mg PO DAILY 05/17/23 Unkn own History fluorometholone 0.1 % eye 1 drp ophthalmic (eye) BID 0 05/17/23 Unknown History drops,suspension gabapentin 800 mg tablet 800 mg PO 4X/DAY 05/17/23 Un known History ibuprofen 800 mg tablet 800 mg PO Q8H PRN pain 05/17 Unknown History loratadine 10 mg tablet 10 mg PO DAILY PRN allergy s ymptoms 05/17/23 Unknown History nystatin 100,000 unit/gram topical 1 applic topical BI D 05/17/23 Unknown History powder promethazine 25 mg tablet 12.5 mg PO Q4H PRN allergy s ymptoms 05/17/23 Unknown History atorvastatin 20 mg tablet 20 mg PO DAILY 01/19/24 Unkn own History coenzyme Q10 100 mg capsule 100 mg PO DAILY 01/19/24 U nknown History multivitamin 1 tab PO DAILY 01/19/24 Unkn own History pantoprazole 40 mg tablet,delayed 40 mg PO DAILY 01/18 Unknown History release acetaminophen 325 mg tablet 650 mg PO Q6H PRN fever or pain 03/19/25 Unknown History aluminum hydrox-magnesium carb 95 30 ml PO Q4H PRN dys pepsia 03/19/25 Unknown History mg-358 mg/15 mL oral suspension (Acid Gone Antacid) benztropine 0.5 mg tablet 0.5 mg PO QHS 03/19/25 Unkno wn History dextrose 40 % oral gel (Glutose-15) 15 g PO Q15M PRN h ypoglycemia 03/19/25 Unknown History diazepam 10 mg tablet 10 mg PO DAILY PRN alcohol 0 03/19/25 Unknown History withdrawal diazepam 10 mg tablet 10 mg PO QHS 03/19/25 Unknow n History duloxetine 60 mg capsule,delayed 120 mg PO BID 5 Unknown History release furosemide 20 mg tablet 20 mg PO DAILY 03/19/25 Unkn own History glucagon 1 mg solution for 1 mg IM Q20M PRN hypoglycem ia 03/19/25 Unknown History injection (Glucagon Emergency Kit) guaifenesin 100 mg/5 mL oral 200 mg PO Q4H PRN congest ion 03/19/25 Unknown History liquid (Adult Tussin Chest Congestion) loperamide 2 mg capsule 2 mg PO Q6H PRN loose stool 03/19/25 Unknown History (Anti-Diarrheal (loperamide)) melatonin 5 mg tablet 10 mg PO QHS 03/19/25 Unknow n History oxybutynin chloride 15 mg 15 mg PO DAILY 03/19/25 Unkn own History tablet,extended release 24 hr polyvinyl alcohol-povidone 0.5 1 - 2 drp EACH EYE Q1H PRN dry 03/19/25 Unknown History %-0.6 % eye drops (Clear Eyes eye(s) Natural Tears) sennosides 8.6 mg-docusate sodium 2 tab-cap PO BID Unknown History 50 mg capsule (Senna Plus) sulfamethoxazole 800 1 tab PO BID #6 TABLETS 02/22 04/16 Unknown Rx mg-trimethoprim 160 mg tablet cephalexin 500 mg capsule 500 mg PO BID 5 days #10 cap s 04/01/25 Unknown Rx Allergy/AdvReac Type Severity Reaction Status Date / Time hydrocodone bitartrate (From Allergy Itching Verified 04/01/25 11:22 Vicodin) Surgical History Chronic suprapubic catheter History of cholecystectomy Social History household members: none Smoking Status: Current every day smoker tobacco type: cigarettes ROS ROS ED ROS Narrative Constitutional: Denies any fevers, chills, headaches Eyes, ears, nose, throat: Denies change in vision double vision blurry vision denies and difficultyswallowing Neck: Complains of neck swelling as noted above Cardiovascular: Denies chest pain Respiratory: Denies shortness of breath Abdomen: Denies nausea vomit diarrhea : States that she has suprapubic catheter as noted above Musculoskeletal: Denies back pain Skin: Denies any rashes or lesions EXAM Physical Exam Narrative Exam Narrative: General: Patient lying in bed rest comfortably did not appear to be acute distress Head: Atraumatic, normocephalic Eyes: PERRL bilaterally, EOMI blood, no conjunctival injection noted, mucous membranes dry, posterior visualized uvula midline no concern for peritonsillar abscess, no sublingual swelling, no tenderness to palpation over the mastoids bilaterally Neck: Soft, trachea midline, patient does have swelling bilaterally noted just below her mandibularregion no fluctuance noted, no concern for Ludewig's angina Cardiovascular: Regular rate and rhythm no murmurs gallops rubs noted Respiratory: Clear to auscultation bilaterally Abdomen: Soft, nondistended, nontender to palpation Extremities: Radial pulses +2/4 in the bilateral extremities, no pedal edema on exam Neurological: Patient follow commands knew that she was at [facility] 2024 Skin: Warm, dry, intact no rashes or lesions noted Const Vital Signs: 04/01/25 11:22 04/01/25 11:29 04/01/25 11:43 Temperature 97.7 F L Temperature Source Oral Pulse Rate 84 Respiratory Rate 79 H Respiratory Effort Normal Non-Labored Blood Pressure 92/62 Blood Pressure Mean 72 Pulse Ox 100 98 Oxygen Delivery Method Room Air Room Air 04/01/25 15:21 Temperature Temperature Source Pulse Rate 77 Respiratory Rate 28 H Respiratory Effort Blood Pressure 111/72 Blood Pressure Mean 85 Pulse Ox 100 Oxygen Delivery Method Room Air MDM MDM MDM Narrative Medical decision making narrative: Patient is a 50-year-old female who presented to the emergency department the chief complaint of swelling to her neck bilaterally. On the differential diagnosis includes but not limited to reactive lymph nodes, abscess, strep throat, dehydration. Once workup is obtained reviewed she will be reevaluated. Patient will given 30 cc/kg bolus of IV fluids 11:40 AM 2500 mL Patient's CBC was reviewed and showed no evidence leukocytosis white blood count5.5, he was 13.2, platelet count of 212. Patient's INR normal at 1, PT of 13.6. Patient sodium normal 42, potassium is mildly low at 3.1 and she was given 40 mill equivalents orally, creatinine was noted to be 0.62. Patient lactic acid normal at 1.3, AST and ALT are 23 and 15 respectively total bilirubin normal at 0.73. Patient's urinalysis reviewed showed 500 leukocyte esterase positive nitrites with 1+ bacteria this sent for culture she was given a gram Rocephin she will be placed on Keflex. Patient's CT soft tissue neck did not show any acute findings. Social work notified me that her current assisted living facility is sending herto inpatient rehab and she has a bed waiting for her. Per social work she will be transported to the inpatient rehab center. Patient was notified is agreeablethis plan all question concerns answered. Lab Data Labs: Laboratory Results - last 24 hr 04/01/25 04/01/25 12:19 14:05 WBC 5.5 RBC 3.96 L Hgb 13.2 Hct 38.9 MCV 98.2 MCH 33.3 H MCHC 33.9 RDW Std Deviation 47.3 H RDW Coeff of Katie 13.2 Plt Count 212 MPV 9.8 Immature Gran % (Auto) 0.400 Neut % (Auto) 78.9 H Lymph % (Auto) 12.1 L [place] % (Auto) 5.5 Eos % (Auto) 2.2 Baso % (Auto) 0.9 Absolute Neuts (auto) 4.3 Absolute Lymphs (auto) 0.66 L Nucleated RBC % 0 PT 13.6 INR 1.0 APTT 33.1 Sodium 142 Potassium 3.1 L Chloride 100 Carbon Dioxide 22.7 Anion Gap 19 H BUN 9 Creatinine 0.62 L Estim Creat Clear Calc 123.55 Est GFR (MDRD) Non-Af 109 BUN/Creatinine Ratio 13.8 Glucose 73 Lactic Acid 1.3 Calcium 8.8 Total Bilirubin 0.73 AST 23 ALT 15 Alkaline Phosphatase 90 Total Protein 6.4 Albumin 3.3 L Globulin 3.1 Albumin/Globulin Ratio 1.1 Urine Color Straw Urine Clarity Sl. Cloudy Urine pH 6.0 Ur Specific [place] 1.010 Urine Protein Negative Urine Glucose (UA) Normal Urine Ketones 50 H Urine Occult Blood 10 H Urine Nitrite Positive H Urine Bilirubin Negative Urine Urobilinogen Normal Ur Leukocyte Esterase 500 H Urine RBC 0 SEEN Urine WBC 5-10 SEEN Ur Squamous Epith Cells 0-5 SEEN Urine Bacteria 1+ Urine Mucus 0 SEEN Radiography Diagnostic Testing: Clinical Impression(s) from Imaging Studies Soft Tissue Neck CT 04/01/25 11:40 IMPRESSION: Limited study. No acute abnormality is seen. Reading Location: [facility] Discharge Plan Triage Chief Complaint: Edema ED Provider: Samuel Hodges Dx/Rx/DC Orders Clinical Impression: UTI (urinary tract infection), Polysubstance abuse, Neck swelling Prescriptions: New cephalexin 500 mg capsule 500 mg PO BID 5 Days Qty: 10 0RF No Action albuterol sulfate [Ventolin HFA] 90 mcg/actuation HFA aerosol inhaler 2 puff INHALATION Q4H PRN (Reason: SOB) amitriptyline 10 mg tablet 10 mg PO QHS baclofen 20 mg tablet 20 mg PO DAILY fluorometholone 0.1 % drops,suspension 1 drp ophthalmic (eye) BID gabapentin 800 mg tablet 800 mg PO 4X/DAY ibuprofen 800 mg tablet 800 mg PO Q8H PRN (Reason: pain) Rx Instructions: WITH FOOD OR MILK loratadine 10 mg tablet 10 mg PO DAILY PRN (Reason: allergy symptoms) nystatin 100,000 unit/gram powder 1 applic TOPICAL BID promethazine 25 mg tablet 12.5 mg PO Q4H PRN (Reason: allergy symptoms) multivitamin Tablet 1 tab PO DAILY atorvastatin 20 mg tablet 20 mg PO DAILY pantoprazole 40 mg tablet,delayed release (DR/EC) 40 mg PO DAILY coenzyme Q10 100 mg capsule 100 mg PO DAILY benztropine 0.5 mg tablet 0.5 mg PO QHS diazepam 10 mg tablet 10 mg PO QHS duloxetine 60 mg capsule,delayed release(DR/EC) 120 mg PO BID furosemide 20 mg tablet 20 mg PO DAILY guaifenesin [Adult Tussin Chest Congestion] 100 mg/5 mL liquid 200 mg PO Q4H PRN (Reason: congestion) Glucagon Emergency Kit (human) 1 mg recon soln 1 mg IM Q20M PRN (Reason: hypoglycemia) Rx Instructions: until target blood sugar attained dextrose [Glutose-15] 40 % gel 15 g PO Q15M PRN (Reason: hypoglycemia) Rx Instructions: until symptoms of low blood sugar are controlled Acid Gone Antacid 95-358 mg/15 mL suspension 30 ml PO Q4H PRN (Reason: dyspepsia) melatonin 5 mg tablet 10 mg PO QHS oxybutynin chloride 15 mg tablet extended release 24hr 15 mg PO DAILY Senna Plus 8.6-50 mg capsule 2 tab-cap PO BID loperamide [Anti-Diarrheal (loperamide)] 2 mg capsule 2 mg PO Q6H PRN (Reason: loose stool) Rx Instructions: administer after each loose stool until symptoms controlled; do not exceed 8 mg per 24 hrs diazepam 10 mg tablet 10 mg PO DAILY PRN (Reason: alcohol withdrawal) Rx Instructions: IN ADDITION TO ROUTINE DOSE Clear Eyes Natural Tears 0.5-0.6 % drops 1 - 2 drp EACH EYE Q1H PRN (Reason: dry eye(s)) acetaminophen 325 mg tablet 650 mg PO Q6H PRN (Reason: fever or pain) sulfamethoxazole-trimethoprim 800-160 mg tablet 1 tab PO BID Qty: 6 0RF Primary Care Provider: Darrel Veloz Referrals: Darrel Veloz DO [Primary Care Provider] - Activity Restrictions/Additional Instructions: Follow-up with your doctor in the outpatient setting. Take Keflex as prescribedfollow-up on urine culture. Return with worsening symptoms or any concerns yourblood work showed a mild hypokalemia therefore you were given potassium supplementation in the emergency department. Your CT of your neck did not show any acute findings today. Print Language: Wolof Disposition Disposition: Home, Self Care What to do if you have Problems For any increased pain, shortness of breath, bleeding, nausea or vomiting, chestpain, or any unexpected problems, contact your Primary Care Provider. Call [facility] ([phone]) or report tothe closest Emergency Room. Call 911 if necessary. 04/01/25 1542 Cosigner Signature (if applicable): CC: Dr. Darrel Veloz DO ~ Signed [facility]07-10-2025 Radiology Diagnostic study note [facility] Imaging Services [address] [place] [address] [id number] Soft Tissue Neck WITH Contrast MR#: [id number] Acct: [id number] Name: KATARZYNA VARGAS Rep #: [id number] : 1975 F 50 From: Catracho Laird MD PCP: Dr. Darrel Veloz DO Status: REG ER Study:Soft Tissue Neck WITH Contrast Date of Exam: 04/01/25 Exam# [id number] Ordering Dr: Karen Hodges DO PROCEDURE: SOFT TISSUE NECK WITH CONTRAST 04/01/2025 REASON FOR EXAM: BILATERAL NECK SWELLING TECHNIQUE: SOFT TISSUE NECK WITH CONTRAST CONTRAST: Isovue-300 VOLUME: 100 mL One or more dose reduction techniques were used (e.g., Automated exposure control, adjustment of the mA and/or kV according to patient size, use of iterative reconstruction technique). RADIATION DOSE SUMMARY: CTDlvol: 18.78 mGy DLP: 530.25 mGycm COMPARISON: None FINDINGS: Airway: Midline and patent. Salivary glands: Fatty replacement of the parotid glands. Lymph nodes: No cervical lymphadenopathy. Thyroid: Unremarkable Vasculature: Unremarkable Orbits: Unremarkable at visualized levels. Paranasal sinuses and mastoids: Grossly clear at visualized levels. Lung apices: Clear. Upper mediastinum: Visualized mediastinum is unremarkable. Bones: Multilevel degenerative changes of the spine. Status post multilevel fusion with screw and plate fixation causing multiple beam hardening artifacts. Other: CT/Soft Tissue Neck WITH Contrast IMPRESSION: Limited study. No acute abnormality is seen. Reading Location: [place] [address] CC: Dr. Darrel Veloz, DO; Dr. Samuel Hodges DO ~ Student Records Specialist: Signed [facility]07-10-2025 Telephone encounter Note* Telephone Encounter - Bambi Thomas LPN - 04/01/2025 8:14 AM EDT [facility] with [facility]. States patient has relapsed multiple times and is dueto go to rehab facility today. [facility]er catheter some time today. Order printed for catheter change for bead picker in event order is needed. Bambi Thomas LPN [facility]07-10-2025 Miscellaneous Notes* Telephone Encounter - Bambi Thomas LPN - 04/01/2025 8:14 AM EDT Called [facility] and spoke with staff. [facility] patient has relapsed multiple times and is dueto go to rehab facility today. A nurse from [facility] will be at clinic to bead picker catheter some time today. Order printed for catheter change for bead picker in event order is needed. Bambi Thomas LPN * Telephone Encounter - Sarah Hager MA - 03/31/2025 3:25 PM EDT Nurse from [facility] phones to request the ability to bead picker a suprapubic catheter for placement prior to patient being transferred to a rehabilitation facility for inpatient treatment tomorrow. Nurse reports asking due to fear that the rehab facility will deny the patient due to the catheter needing to be changed. Return nurse phone call to [phone] Sarah Hager MA [facility] Telephone encounter Note * Telephone Encounter - Sarah Hager MA - 03/31/2025 3:25 PM EDT Nurse from [facility] phones to request the ability to bead picker a suprapubic catheter for placement prior to patient being transferred to a rehabilitation facility for inpatient treatment tomorrow. Nurse reports asking due to fear that the rehab facility will deny the patient due to the catheter needing to be changed. Return nurse phone call to [phone] Sarah Hager MA [facility]06-27-2025 Discharge summary Author Nick Angelo [facility] Note Date/Time March 19, 2025 4:45 pm [facility] Medical Records Department [address] [place] [address] Emergency Department Summary 03/19/25 MR#: [id number] Acct: [id number] Name: KATARZYNA VARGAS Rep #:[id number] : 1975 50 From: Nick Qureshi PCP: Dr. Darrel Veloz, DO Status:REG ER Location: ED HPI History of Present Illness Chief Complaint: Substance Abuse Informant: patient Onset/Context/Timing Onset: Days (3) Context: Gradual Onset Timing: Continuous Worsened by: Nothing Relieved by: Nothing Associated Symptoms Associated Symptoms: Negative for vomiting*, diarrhea*, fever*, rash*, seizure, tremor, palpatations, suicidal ideation or homicidal ideation Narrative Narrative: Patient presents with relapse from opioid use. Patient states she used 1 g of opiates 3 days ago. Patient is unsure if it was meth or opiates. Patient states she has not used any since then. Patient denies any nausea or vomiting. Patient denies any seizures or tremors. Patient denies any suicidal or homicidal ideations. Patient admits to some pain in her back. Patient is also concerned that she may be dehydrated or her electrolytes may be abnormal. PFSH PFSH Medical History Functional dyspepsia Acute embolism and thrombosis of unspecified deep veins of left lower extremity Cognitive communication deficit Arthropathy Bipolar 1 disorder Muscle weakness (generalized) Hepatitis Smoker Asthma IVDU (intravenous drug user) Polysubstance (including opioids) dependence, daily use Opiate dependence Depression Alcohol abuse Home Medications ?Medication ?Instructions ?Recorded ?Last Taken ?Type albuterol sulfate 90 mcg/actuation 2 puff inhalation Q 4H PRN SOB 05/17/23 Unknown History aerosol inhaler (Ventolin HFA) amitriptyline 10 mg tablet 10 mg PO QHS 05/17/23 Unkno wn History baclofen 20 mg tablet 20 mg PO DAILY 05/17/23 Unkn own History fluorometholone 0.1 % eye 1 drp ophthalmic (eye) BID 0 05/17/23 Unknown History drops,suspension gabapentin 800 mg tablet 800 mg PO 4X/DAY 05/17/23 Un known History ibuprofen 800 mg tablet 800 mg PO Q8H PRN pain 05/17 Unknown History loratadine 10 mg tablet 10 mg PO DAILY PRN allergy s ymptoms 05/17/23 Unknown History nystatin 100,000 unit/gram topical 1 applic topical BI D 05/17/23 Unknown History powder promethazine 25 mg tablet 12.5 mg PO Q4H PRN allergy s ymptoms 05/17/23 Unknown History atorvastatin 20 mg tablet 20 mg PO DAILY 01/19/24 Unkn own History coenzyme Q10 100 mg capsule 100 mg PO DAILY 01/19/24 U nknown History multivitamin 1 tab PO DAILY 01/19/24 Unkn own History pantoprazole 40 mg tablet,delayed 40 mg PO DAILY 01/18 Unknown History release acetaminophen 325 mg tablet 650 mg PO Q6H PRN fever or pain 03/19/25 Unknown History aluminum hydrox-magnesium carb 95 30 ml PO Q4H PRN dys pepsia 03/19/25 Unknown History mg-358 mg/15 mL oral suspension (Acid Gone Antacid) benztropine 0.5 mg tablet 0.5 mg PO QHS 03/19/25 Unkno wn History dextrose 40 % oral gel (Glutose-15) 15 g PO Q15M PRN h ypoglycemia 03/19/25 Unknown History diazepam 10 mg tablet 10 mg PO DAILY PRN alcohol 0 03/19/25 Unknown History withdrawal diazepam 10 mg tablet 10 mg PO QHS 03/19/25 Unknow n History duloxetine 60 mg capsule,delayed 120 mg PO BID 5 Unknown History release furosemide 20 mg tablet 20 mg PO DAILY 03/19/25 Unkn own History glucagon 1 mg solution for 1 mg IM Q20M PRN hypoglycem ia 03/19/25 Unknown History injection (Glucagon Emergency Kit) guaifenesin 100 mg/5 mL oral 200 mg PO Q4H PRN congest ion 03/19/25 Unknown History liquid (Adult Tussin Chest Congestion) loperamide 2 mg capsule 2 mg PO Q6H PRN loose stool 03/19/25 Unknown History (Anti-Diarrheal (loperamide)) melatonin 5 mg tablet 10 mg PO QHS 03/19/25 Unknow n History oxybutynin chloride 15 mg 15 mg PO DAILY 03/19/25 Unkn own History tablet,extended release 24 hr polyvinyl alcohol-povidone 0.5 1 - 2 drp EACH EYE Q1H PRN dry 03/19/25 Unknown History %-0.6 % eye drops (Clear Eyes eye(s) Natural Tears) sennosides 8.6 mg-docusate sodium 2 tab-cap PO BID Unknown History 50 mg capsule (Senna Plus) sulfamethoxazole 800 1 tab PO BID #6 TABLETS 02/22 04/16 Unknown Rx mg-trimethoprim 160 mg tablet Allergy/AdvReac Type Severity Reaction Status Date / Time hydrocodone bitartrate (From Allergy Itching Verified 03/19/25 13:42 Vicodin) Surgical History Chronic suprapubic catheter History of cholecystectomy Social History household members: none Smoking Status: Current every day smoker tobacco type: cigarettes ROS ROS ED Constitutional Constitutional ED: Denies chills or fever(s) Eyes Eyes: Denies blurry vision or change in vision ENT ENT ED: Denies rhinorrhea or sore throat Cardiovascular Cardiovascular: Denies chest pain or palpitations Respiratory/Chest Respiratory/Chest: Denies cough or dyspnea Gastrointestinal Gastrointestinal: Denies nausea or vomiting Genitourinary Genitourinary ED: Denies dysuria or hematuria Musculoskeletal Musculoskeletal: Reports back pain; Denies neck pain Integumentary Denies abscess or rash Neurologic Neurologic: Denies headache(s) or weakness Psychiatric Psychiatric: Denies suicidal ideation or suicidal thoughts Allergic/Immunologic Allergic/Immunologic ED: Denies mouth swelling or urticaria EXAM Physical Exam Const Vital Signs: 03/19/25 13:44 03/19/25 15:08 Temperature 98.7 F Temperature Source Oral Pulse Rate 88 71 Respiratory Rate 18 16 Blood Pressure 107/79 112/70 Blood Pressure Mean 88 84 Pulse Ox 92 99 Oxygen Delivery Method Room Air Room Air Positive well nourished and well developed General Appearance ED: well developed and NAD HEENT Reports moist mucous membranes atraumatic Neck supple and no JVD Resp normal respiratory effort and clear to auscultation bilaterally Cardio regular rate and regular rhythm GI soft to palpation, non-tender and non-distended Neuro oriented x3, CN's II-XII intact bilaterally and no sensory deficits noted [place] Coma Scale: document GCS findings Spontaneous Obeys Commands Oriented 15 Sensorium / Orientation: alert Speech: speech normal Motor Exam: strength 5/5 throughout Psych mental status grossly normal and thought process normal MDM MDM MDM Narrative Medical decision making narrative: Differential diagnosis includes dehydration, electrolyte abnormality, substance abuse, and urinary tract infection. CBC will be obtained to assess for leukocytosis and anemia. Comprehensive metabolic profile will be obtained to assess for hepatic function, renal function, and electrolyte abnormality. SerumhCG will be obtained to assess for . Urinalysis will be obtained to assess for urinary tract infection and hematuria. Serum alcohol level will be obtained to assess for alcohol intoxication. Urine drug screen will be obtainedto assess for substance abuse. Lab Data Attestation: I reviewed the patient's lab results. Lab results narrative: CBC was reviewed. There is white blood cell count of 4.2. The remainder is essentially within normal limits. Comprehensive metabolic profile was reviewed and was essentially within normal limits. Serum alcohol level was reviewed and was less than 10.1. Serum hCG was reviewed and was negative. Urinalysis was reviewed. Leukocyte esterase was 500. Nitrites were positive. Labs: Laboratory Results - last 24 hr 03/19/25 03/19/25 14:15 14:30 WBC 4.2 L RBC 4.00 L Hgb 13.6 Hct 38.2 MCV 95.5 MCH 34.0 H MCHC 35.6 RDW Std Deviation 43.7 RDW Coeff of Katie 12.7 Plt Count 257 MPV 10.2 Immature Gran % (Auto) 0.000 Neut % (Auto) 56.7 Lymph % (Auto) 29.3 [place] % (Auto) 8.3 Eos % (Auto) 4.0 Baso % (Auto) 1.7 H Absolute Neuts (auto) 2.4 Absolute Lymphs (auto) 1.24 Nucleated RBC % 0 Sodium 139 Potassium 3.3 Chloride 97 L Carbon Dioxide 26.6 Anion Gap 15 BUN 7 Creatinine 0.62 L Estim Creat Clear Calc 122.96 Est GFR (MDRD) Non-Af 109 BUN/Creatinine Ratio 10.7 Glucose 90 Calcium 8.8 Total Bilirubin 0.62 AST 28 ALT 20 Alkaline Phosphatase 89 Total Protein 6.4 Albumin 3.4 L Globulin 3.0 Albumin/Globulin Ratio 1.1 Serum , Qual NEGATIVE Urine Color Yellow Urine Clarity Cloudy Urine pH 8.0 Ur Specific [place] 1.015 Urine Protein 30 H Urine Glucose (UA) Normal Urine Ketones Negative Urine Occult Blood 50 H Urine Nitrite Positive H Urine Bilirubin Negative Urine Urobilinogen 1 H Ur Leukocyte Esterase 500 H Ethyl Alcohol < 10.1 Treatment and Re-Evaluation Narrative: Patient was advised of her findings. Patient does not want to be admitted for opiate detox at this time. Patient was able to drink fluids. Patient was givena dose of Bactrim here. Patient was given a prescription for Bactrim. Patient was instructed to follow-up with her primary care physician in 5 to 7 days. Patient was also instructed to follow-up with 180 in 3 to 5 days. Patient was instructed to return if worse in any way. Patient understood and was agreeable with the plan. All questions were answered. Discharge Plan Triage Chief Complaint: Substance Abuse ED Provider: Nick Angelo Dx/Rx/DC Orders Clinical Impression: Urinary tract infection, Opiate withdrawal Instructions: ED Cystitis Female Adult Prescriptions: New sulfamethoxazole-trimethoprim 800-160 mg tablet 1 tab PO BID Qty: 6 0RF No Action albuterol sulfate [Ventolin HFA] 90 mcg/actuation HFA aerosol inhaler 2 puff INHALATION Q4H PRN (Reason: SOB) amitriptyline 10 mg tablet 10 mg PO QHS baclofen 20 mg tablet 20 mg PO DAILY fluorometholone 0.1 % drops,suspension 1 drp ophthalmic (eye) BID gabapentin 800 mg tablet 800 mg PO 4X/DAY ibuprofen 800 mg tablet 800 mg PO Q8H PRN (Reason: pain) Rx Instructions: WITH FOOD OR MILK loratadine 10 mg tablet 10 mg PO DAILY PRN (Reason: allergy symptoms) nystatin 100,000 unit/gram powder 1 applic TOPICAL BID promethazine 25 mg tablet 12.5 mg PO Q4H PRN (Reason: allergy symptoms) multivitamin Tablet 1 tab PO DAILY atorvastatin 20 mg tablet 20 mg PO DAILY pantoprazole 40 mg tablet,delayed release (DR/EC) 40 mg PO DAILY coenzyme Q10 100 mg capsule 100 mg PO DAILY benztropine 0.5 mg tablet 0.5 mg PO QHS diazepam 10 mg tablet 10 mg PO QHS duloxetine 60 mg capsule,delayed release(DR/EC) 120 mg PO BID furosemide 20 mg tablet 20 mg PO DAILY guaifenesin [Adult Tussin Chest Congestion] 100 mg/5 mL liquid 200 mg PO Q4H PRN (Reason: congestion) Glucagon Emergency Kit (human) 1 mg recon soln 1 mg IM Q20M PRN (Reason: hypoglycemia) Rx Instructions: until target blood sugar attained dextrose [Glutose-15] 40 % gel 15 g PO Q15M PRN (Reason: hypoglycemia) Rx Instructions: until symptoms of low blood sugar are controlled Acid Gone Antacid 95-358 mg/15 mL suspension 30 ml PO Q4H PRN (Reason: dyspepsia) melatonin 5 mg tablet 10 mg PO QHS oxybutynin chloride 15 mg tablet extended release 24hr 15 mg PO DAILY Senna Plus 8.6-50 mg capsule 2 tab-cap PO BID loperamide [Anti-Diarrheal (loperamide)] 2 mg capsule 2 mg PO Q6H PRN (Reason: loose stool) Rx Instructions: administer after each loose stool until symptoms controlled; do not exceed 8 mg per 24 hrs diazepam 10 mg tablet 10 mg PO DAILY PRN (Reason: alcohol withdrawal) Rx Instructions: IN ADDITION TO ROUTINE DOSE Clear Eyes Natural Tears 0.5-0.6 % drops 1 - 2 drp EACH EYE Q1H PRN (Reason: dry eye(s)) acetaminophen 325 mg tablet 650 mg PO Q6H PRN (Reason: fever or pain) Primary Care Provider: Darrel Veloz Referrals: Darrel Veloz DO [Primary Care Provider] - 5-7 Days [facility] [Non-Staff] - 3-5 Days Print Language: Wolof Disposition Disposition: Home, Self Care What to do if you have Problems For any increased pain, shortness of breath, bleeding, nausea or vomiting, chestpain, or any unexpected problems, contact your Primary Care Provider. Call [facility] ([phone]) or report to the closest Emergency Room. Call 911 if necessary. 03/19/25 1645 <Electronically signed by Nick Angelo DO> Cosigner Signature (if applicable): CC: Dr. Darrel Veloz DO ~ Signed [facility] Work Phone: [phone] Discharge summary [facility] Medical Records Department [address] [place] [address] Emergency Department Summary 03/19/25 MR#: [id number] Acct: [id number] Name: KATARZYNA VARGAS Rep #:[id number] : 1975 50 From: Nick Qureshi PCP: Dr. Darrel Veloz DO Status:REG ER Location: ED HPI History of Present Illness Chief Complaint: Substance Abuse Informant: patient Onset/Context/Timing Onset: Days (3) Context: Gradual Onset Timing: Continuous Worsened by: Nothing Relieved by: Nothing Associated Symptoms Associated Symptoms: Negative for vomiting*, diarrhea*, fever*, rash*, seizure, tremor, palpatations, suicidal ideation or homicidal ideation Narrative Narrative: Patient presents with relapse from opioid use. Patient states she used 1 g of opiates 3 days ago. Patient is unsure if it was meth or opiates. Patient states she has not used any since then. Patient denies any nausea or vomiting. Patient denies any seizures or tremors. Patient denies any suicidal or homicidal ideations. Patient admits to some pain in her back. Patient is also concerned that she may be dehydrated or her electrolytes may be abnormal. [facility] Functional dyspepsia Acute embolism and thrombosis of unspecified deep veins of left lower extremity Cognitive communication deficit Arthropathy Bipolar 1 disorder Muscle weakness (generalized) Hepatitis Smoker Asthma IVDU (intravenous drug user) Polysubstance (including opioids) dependence, daily use Opiate dependence Depression Alcohol abuse Home Medications ?Medication ?Instructions ?Recorded ?Last Taken ?Type albuterol sulfate 90 mcg/actuation 2 puff inhalation Q 4H PRN SOB 05/17/23 Unknown History aerosol inhaler (Ventolin HFA) amitriptyline 10 mg tablet 10 mg PO QHS 05/17/23 Unkno wn History baclofen 20 mg tablet 20 mg PO DAILY 05/17/23 Unkn own History fluorometholone 0.1 % eye 1 drp ophthalmic (eye) BID 0 05/17/23 Unknown History drops,suspension gabapentin 800 mg tablet 800 mg PO 4X/DAY 05/17/23 Un known History ibuprofen 800 mg tablet 800 mg PO Q8H PRN pain 05/17 Unknown History loratadine 10 mg tablet 10 mg PO DAILY PRN allergy s ymptoms 05/17/23 Unknown History nystatin 100,000 unit/gram topical 1 applic topical BI D 05/17/23 Unknown History powder promethazine 25 mg tablet 12.5 mg PO Q4H PRN allergy s ymptoms 05/17/23 Unknown History atorvastatin 20 mg tablet 20 mg PO DAILY 01/19/24 Unkn own History coenzyme Q10 100 mg capsule 100 mg PO DAILY 01/19/24 U nknown History multivitamin 1 tab PO DAILY 01/19/24 Unkn own History pantoprazole 40 mg tablet,delayed 40 mg PO DAILY 01/18 Unknown History release acetaminophen 325 mg tablet 650 mg PO Q6H PRN fever or pain 03/19/25 Unknown History aluminum hydrox-magnesium carb 95 30 ml PO Q4H PRN dys pepsia 03/19/25 Unknown History mg-358 mg/15 mL oral suspension (Acid Gone Antacid) benztropine 0.5 mg tablet 0.5 mg PO QHS 03/19/25 Unkno wn History dextrose 40 % oral gel (Glutose-15) 15 g PO Q15M PRN h ypoglycemia 03/19/25 Unknown History diazepam 10 mg tablet 10 mg PO DAILY PRN alcohol 0 03/19/25 Unknown History withdrawal diazepam 10 mg tablet 10 mg PO QHS 03/19/25 Unknow n History duloxetine 60 mg capsule,delayed 120 mg PO BID 5 Unknown History release furosemide 20 mg tablet 20 mg PO DAILY 03/19/25 Unkn own History glucagon 1 mg solution for 1 mg IM Q20M PRN hypoglycem ia 03/19/25 Unknown History injection (Glucagon Emergency Kit) guaifenesin 100 mg/5 mL oral 200 mg PO Q4H PRN congest ion 03/19/25 Unknown History liquid (Adult Tussin Chest Congestion) loperamide 2 mg capsule 2 mg PO Q6H PRN loose stool 03/19/25 Unknown History (Anti-Diarrheal (loperamide)) melatonin 5 mg tablet 10 mg PO QHS 03/19/25 Unknow n History oxybutynin chloride 15 mg 15 mg PO DAILY 03/19/25 Unkn own History tablet,extended release 24 hr polyvinyl alcohol-povidone 0.5 1 - 2 drp EACH EYE Q1H PRN dry 03/19/25 Unknown History %-0.6 % eye drops (Clear Eyes eye(s) Natural Tears) sennosides 8.6 mg-docusate sodium 2 tab-cap PO BID Unknown History 50 mg capsule (Senna Plus) sulfamethoxazole 800 1 tab PO BID #6 TABLETS 02/22 04/16 Unknown Rx mg-trimethoprim 160 mg tablet Allergy/AdvReac Type Severity Reaction Status Date / Time hydrocodone bitartrate (From Allergy Itching Verified 03/19/25 13:42 Vicodin) Surgical History Chronic suprapubic catheter History of cholecystectomy Social History household members: none Smoking Status: Current every day smoker tobacco type: cigarettes ROS ROS ED Constitutional Constitutional ED: Denies chills or fever(s) Eyes Eyes: Denies blurry vision or change in vision ENT ENT ED: Denies rhinorrhea or sore throat Cardiovascular Cardiovascular: Denies chest pain or palpitations Respiratory/Chest Respiratory/Chest: Denies cough or dyspnea Gastrointestinal Gastrointestinal: Denies nausea or vomiting Genitourinary Genitourinary ED: Denies dysuria or hematuria Musculoskeletal Musculoskeletal: Reports back pain; Denies neck pain Integumentary Denies abscess or rash Neurologic Neurologic: Denies headache(s) or weakness Psychiatric Psychiatric: Denies suicidal ideation or suicidal thoughts Allergic/Immunologic Allergic/Immunologic ED: Denies mouth swelling or urticaria EXAM Physical Exam Const Vital Signs: 03/19/25 13:44 03/19/25 15:08 Temperature 98.7 F Temperature Source Oral Pulse Rate 88 71 Respiratory Rate 18 16 Blood Pressure 107/79 112/70 Blood Pressure Mean 88 84 Pulse Ox 92 99 Oxygen Delivery Method Room Air Room Air Positive well nourished and well developed General Appearance ED: well developed and NAD HEENT Reports moist mucous membranes atraumatic Neck supple and no JVD Resp normal respiratory effort and clear to auscultation bilaterally Cardio regular rate and regular rhythm GI soft to palpation, non-tender and non-distended Neuro oriented x3, CN's II-XII intact bilaterally and no sensory deficits noted [place] Coma Scale: document GCS findings Spontaneous Obeys Commands Oriented 15 Sensorium / Orientation: alert Speech: speech normal Motor Exam: strength 5/5 throughout Psych mental status grossly normal and thought process normal MDM MDM MDM Narrative Medical decision making narrative: Differential diagnosis includes dehydration, electrolyte abnormality, substance abuse, and urinary tract infection. CBC will be obtained to assess for leukocytosis and anemia. Comprehensive metabolicprofile will be obtained to assess for hepatic function, renal function, and electrolyte abnormality. SerumhCG will be obtained to assess for . Urinalysis will be obtained to assess for urinary tract infection and hematuria. Serum alcohol level will be obtained to assess for alcohol intoxication. Urine drug screen will be obtainedto assess for substance abuse. Lab Data Attestation: I reviewed the patient's lab results. Lab results narrative: CBC was reviewed. There is white blood cell count of 4.2. The remainder is essentially within normal limits. Comprehensive metabolic profile was reviewed and was essentially within normal limits. Serum alcohol level was reviewed and was less than 10.1. Serum hCG was reviewed and was negative. Urinalysis was reviewed. Leukocyte esterase was 500. Nitrites were positive. Labs: Laboratory Results - last 24 hr 03/19/25 03/19/25 14:15 14:30 WBC 4.2 L RBC 4.00 L Hgb 13.6 Hct 38.2 MCV 95.5 MCH 34.0 H MCHC 35.6 RDW Std Deviation 43.7 RDW Coeff of [place] 12.7 Plt Count 257 MPV 10.2 Immature Gran % (Auto) 0.000 Neut % (Auto) 56.7 Lymph % (Auto) 29.3 [place] % (Auto) 8.3 Eos % (Auto) 4.0 Baso % (Auto) 1.7 H Absolute Neuts (auto) 2.4 Absolute Lymphs (auto) 1.24 Nucleated RBC % 0 Sodium 139 Potassium 3.3 Chloride 97 L Carbon Dioxide 26.6 Anion Gap 15 BUN 7 Creatinine 0.62 L Estim Creat Clear Calc 122.96 Est GFR (MDRD) Non-Af 109 BUN/Creatinine Ratio 10.7 Glucose 90 Calcium 8.8 Total Bilirubin 0.62 AST 28 ALT 20 Alkaline Phosphatase 89 Total Protein 6.4 Albumin 3.4 L Globulin 3.0 Albumin/Globulin Ratio 1.1 Serum , Qual NEGATIVE Urine Color Yellow Urine Clarity Cloudy Urine pH 8.0 Ur Specific [place] 1.015 Urine Protein 30 H Urine Glucose (UA) Normal Urine Ketones Negative Urine Occult Blood 50 H Urine Nitrite Positive H Urine Bilirubin Negative Urine Urobilinogen 1 H Ur Leukocyte Esterase 500 H Ethyl Alcohol < 10.1 Treatment and Re-Evaluation Narrative: Patient was advised of her findings. Patient does not want to be admitted for opiate detox at this time. Patient was able to drink fluids. Patient was givena dose of Bactrim here. Patient was given aprescription for Bactrim. Patient was instructed to follow-up with her primary care physician in 5 to 7 days. Patient was also instructed to follow-up with 180 in 3 to 5 days. Patient was instructed to return if worse in any way. Patient understood and was agreeable with the plan. All questions were answered. Discharge Plan Triage Chief Complaint: Substance Abuse ED Provider: Nick Angelo Dx/Rx/DC Orders Clinical Impression: Urinary tract infection, Opiate withdrawal Instructions: ED Cystitis Female Adult Prescriptions: New sulfamethoxazole-trimethoprim 800-160 mg tablet 1 tab PO BID Qty: 6 0RF No Action albuterol sulfate [Ventolin HFA] 90 mcg/actuation HFA aerosol inhaler 2 puff INHALATION Q4H PRN (Reason: SOB) amitriptyline 10 mg tablet 10 mg PO QHS baclofen 20 mg tablet 20 mg PO DAILY fluorometholone 0.1 % drops,suspension 1 drp ophthalmic (eye) BID gabapentin 800 mg tablet 800 mg PO 4X/DAY ibuprofen 800 mg tablet 800 mg PO Q8H PRN (Reason: pain) Rx Instructions: WITH FOOD OR MILK loratadine 10 mg tablet 10 mg PO DAILY PRN (Reason: allergy symptoms) nystatin 100,000 unit/gram powder 1 applic TOPICAL BID promethazine 25 mg tablet 12.5 mg PO Q4H PRN (Reason: allergy symptoms) multivitamin Tablet 1 tab PO DAILY atorvastatin 20 mg tablet 20 mg PO DAILY pantoprazole 40 mg tablet,delayed release (DR/EC) 40 mg PO DAILY coenzyme Q10 100 mg capsule 100 mg PO DAILY benztropine 0.5 mg tablet 0.5 mg PO QHS diazepam 10 mg tablet 10 mg PO QHS duloxetine 60 mg capsule,delayed release(DR/EC) 120 mg PO BID furosemide 20 mg tablet 20 mg PO DAILY guaifenesin [Adult Tussin Chest Congestion] 100 mg/5 mL liquid 200 mg PO Q4H PRN (Reason: congestion) Glucagon Emergency Kit (human) 1 mg recon soln 1 mg IM Q20M PRN (Reason: hypoglycemia) Rx Instructions: until target blood sugar attained dextrose [Glutose-15] 40 % gel 15 g PO Q15M PRN (Reason: hypoglycemia) Rx Instructions: until symptoms of low blood sugar are controlled Acid Gone Antacid 95-358 mg/15 mL suspension 30 ml PO Q4H PRN (Reason: dyspepsia) melatonin 5 mg tablet 10 mg PO QHS oxybutynin chloride 15 mg tablet extended release 24hr 15 mg PO DAILY Senna Plus 8.6-50 mg capsule 2 tab-cap PO BID loperamide [Anti-Diarrheal (loperamide)] 2 mg capsule 2 mg PO Q6H PRN (Reason: loose stool) Rx Instructions: administer after each loose stool until symptoms controlled; do not exceed 8 mg per 24 hrs diazepam 10 mg tablet 10 mg PO DAILY PRN (Reason: alcohol withdrawal) Rx Instructions: IN ADDITION TO ROUTINE DOSE Clear Eyes Natural Tears 0.5-0.6 % drops 1 - 2 drp EACH EYE Q1H PRN (Reason: dry eye(s)) acetaminophen 325 mg tablet 650 mg PO Q6H PRN (Reason: fever or pain) Primary Care Provider: Darrel Veloz Referrals: Darrel Veloz DO [Primary Care Provider] - 5-7 Days [facility] [Non-Staff] - 3-5 Days Print Language: Wolof Disposition Disposition: Home, Self Care What to do if you have Problems For any increased pain, shortness of breath, bleeding, nausea or vomiting, chestpain, or any unexpected problems, contact your Primary Care Provider. Call [facility] ([phone]) or report tothe closest Emergency Room. Call 911 if necessary. 03/19/25 1645 Cosigner Signature (if applicable): CC: Dr. Darrel Veloz, DO ~ Signed [facility]06-19-2025 Telephone encounter Note* Telephone Encounter - Bambi Thomas LPN - 03/11/2025 2:50 PM EDT [facility] patient was concerned about urinary output.Spoke with SILVA Butler who states after she sent fax she was talking with patient and patient was uncertain if she woke up at night and emptied the drainage bag but has had 600 mL and 700 mL today and continues to drink fluids well without any signs/symptoms UTI. Bambi Thomas LPN [facility]06-19-2025 Miscellaneous Notes* Telephone Encounter - Bambi Thomas LPN - 03/11/2025 2:50 PM EDT [facility] that patient was concerned about urinary output.Spoke with SILVA Butler who states after she sent fax she was talking with patient and patient was uncertain if she woke up at night and emptied the drainage bag but has had 600 mL and 700 mL today and continues to drink fluids well without any signs/symptoms UTI. Bambi Thomas LPN documented in this encounterK[facility]05-[facility]2025 NoteHNO ID: [id number] Author: YESSY MARES MA Service: ? Author Type: Patrol Driver Type: Progress Notes Filed: 02/02/2025 14:56 Note Text: In the supine position, the old suprapubic tube was removed with no difficulty. The area was prepped with betadine, and a new 24 Fr Schmitt with 30ml balloon was inserted through the stoma site into the bladder. The balloon was inflated with 20 cc's of sterile saline. The catheter was irrigated with sterile saline with good return. The pt tolerated the procedure well without complications. Follow up as discussed with ORALIA Ray [facility]05-13-2025 History of Present illness Narrative* Yessy Mares MA - 02/02/2025 2:51 PM EDT In the supine position, the old suprapubic tube was removed with no difficulty. The area was prepped with betadine, and a new 24 Fr Schmitt with 30ml balloon was inserted through the stoma site into the bladder. The balloon was inflated with 20 cc's of sterile saline. The catheter was irrigated with sterile saline with good return. The pt tolerated the procedure well without complications. Follow up as discussed with ORALIA Ray MA documented in this encounterK[facility]04-[facility]-2025 Telephone encounter Note * Telephone Encounter - Bambi Thomas LPN - 01/06/2025 1:24 PM EDT Received fax from [facility] Faxed signed by Rush Maxwell PA-C order for drain bag with double back hanger. Bambi Thomas LPN [facility]04-16-2025 Miscellaneous Notes* Telephone Encounter - Bambi Thomas LPN - 01/06/2025 1:24 PM EDT Received fax from [facility] Faxed signed by Rush Maxwell PA-C order for drain bag with double back hanger. Bambi Thomas LPN documented in this encounterK[facility]04-15-2025 NoteHNO ID: [id number] Author: YESSY MARES MA Service: ? Author Type: Patrol Driver Type: Progress Notes Filed: 01/05/2025 14:55 Note Text: Suprapubic catheter change performed as ordered. A [address] catheter with 30ml balloon was replaced using sterile technique without complications. Balloon inflated with 20cc of sterile saline. Patient tolerated procedure well. Irrigation preformed to insure proper placement with good return and without complication. Patient to follow up in 1 month. Patient to call in the interim with any problems or concerns. Yessy Mares [facility]04-15-2025 History of Present illness Narrative* Yessy Mares MA - 01/05/2025 2:51 PM EDT Suprapubic catheter change performed as ordered. A [address]mitt catheter with 30ml balloon was replaced using sterile technique without complications. Balloon inflated with 20cc of sterile saline. Patient tolerated procedure well. Irrigation preformed to insure proper placement with good return and without complication. Patient to follow up in 1 month. Patient to call in the interim with any problems or concerns. Yessy Mares Ma documented in this encounterK[facility]03-18-2025 NoteHNO ID: [id number] Author: BAMBI THOMAS LPN Service: ? Author Type: LICENSED NURSE Type: Progress Notes Filed: 12/09/2024 09:57 Note Text: Verified name and date of . CC Supra pubic catheter in Place HPI: Katarzyna Vargas is a 49 year old female. The patient is here now for a supra pubic catheter change with diagnosis of atonic neurogenic bladder. Procedure: Performed a catheter change. Removed fluid from balloon in the schmitt. The indwelling supra pubic schmitt size 24 Fr was removed with catheter tip intact without difficulty. Inserted [address] catheter using aseptic technique. Irrigated with 60 mL 0.9% sodium chloride without difficulties. Very large amount of clear yellow return noted with sediment noted throughout. Bulb inflated with 20 mLs prefilled syringe- sterile water. Covered with t-sponge. Patient does not want secured with statlock. The patient tolerated the procedure well. Assessment/Plan: Successful catheter change. Return for catheter changes as planned. [facility] History of Present illness Narrative* Bambi Thomas LPN - 12/08/2024 2:57 PM EDT Verified name and date of . CC Supra pubic catheter in Place HPI: Katarzyna Vargas is a 49 year old female. The patient is here now for a supra pubic catheter change with diagnosis of atonic neurogenic bladder. Procedure: Performed a catheter change. Removed fluid from balloon in the schmitt. The indwelling supra pubic schmitt size 24 Fr was removed with catheter tip intact without difficulty. Inserted [address] catheter using aseptic technique. Irrigated with 60 mL 0.9% sodium chloride without difficulties. Very large amount of clear yellow return noted with sediment noted throughout. Bulb inflated with 20 mLs prefilled syringe- sterile water.Covered with t-sponge. Patient does not want secured with statlock. The patient tolerated the procedure well. Assessment/Plan: Successful catheter change. Return for catheter changes as planned. Bambi Thomas LPN documented in this encounterK[facility]02-11-2025 NoteHNO ID: [id number] Author: BAMBI THOMAS LPN Service: ? Author Type: LICENSED NURSE Type: Progress Notes Filed: 11/03/2024 14:42 Note Text: Verified name and date of . CC Supra pubic catheter in Place HPI: Katarzyna Vargas is a 49 year old female. The patient is here now for a supra pubic catheter change with diagnosis of atonic neurogenic bladder. Procedure: Performed a catheter change. Removed fluid from balloon in the schmitt. The indwelling supra pubic schmitt size 24 Fr was removed with catheter tip intact without difficulty. Inserted [address] catheter using aseptic technique. Irrigated with 60 mL 0.9% sodium chloride without difficulties. Very large amount of clear yellow return noted with sediment noted throughout. Bulb inflated with 20 mLs prefilled syringe- sterile water. Covered with t-sponge. Patient does not want secured with statlock. The patient tolerated the procedure well. Assessment/Plan: Successful catheter change. Return for catheter changes as planned. [facility] History of Present illness Narrative* Bambi Thomas LPN - 11/03/2024 2:30 PM EST Verified name and date of . CC Supra pubic catheter in Place HPI: Katarzyna Vargas is a 49 year old female. The patient is here now for a supra pubic catheter change with diagnosis of atonic neurogenic bladder. Procedure: Performed a catheter change. Removed fluid from balloon in the schmitt. The indwelling supra pubic schmitt size 24 Fr was removed with catheter tip intact without difficulty. Inserted [address] catheter using aseptic technique. Irrigated with 60 mL 0.9% sodium chloride without difficulties. Very large amount of clear yellow return noted with sediment noted throughout. Bulb inflated with 20 mLs prefilled syringe- sterile water.Covered with t-sponge. Patient does not want secured with statlock. The patient tolerated the procedure well. Assessment/Plan: Successful catheter change. Return for catheter changes as planned. Bambi Thomas LPN [facility] NoteHNO ID: [id number] Author: YESSY MARES MA Service: ? Author Type: Patrol Driver Type: Progress Notes Filed: 10/06/2024 15:19 Note Text: In the modified supine position in the patient's automatic wheelchair, the old 24Fr suprapubic tube was removed without difficulty. The area was prepped with betadine, and a new 24 Fr Schmitt was inserted through the stoma site into the bladder. The balloon was inflated with 20 cc's of sterile saline. The catheter was irrigated with 60ml sterile saline with good return. The pt tolerated the procedure well without complications. Follow up as discussed ORALIA Ray [facility]01-14-2025 History of Present illness Narrative* Yessy Mares MA - 10/06/2024 3:15 PM EST In the modified supine position in the patient's automatic wheelchair, the old 24Fr suprapubic tubewas removed without difficulty. The area was prepped with betadine, and a new 24 Fr Schmitt was inserted through the stoma site into the bladder. The balloon was inflated with 20 cc's of sterile saline. The catheter was irrigated with 60ml sterile saline with good return. The pt tolerated the procedure well without complications. Follow up as discussed ORALIA Ray MA documented in this encounterK[facility]12-[facility] Telephone encounter Note * Telephone Encounter - Bambi Thomas LPN - 08/28/2024 11:27 AM EST Called patient. Verified name and date of . Patient notified- verbalizes understanding. Bambi Thomas LPN [facility]12-06-[facility]24 Miscellaneous Notes* Telephone Encounter - Bambi Thomas LPN - 08/28/2024 11:27 AM EST Called patient. Verified name and date of . Patient notified- verbalizes understanding. Bambi Thomas LPN * Telephone Encounter - Bambi Thomas LPN - 08/26/2024 10:11 AM EST Called patient. No answer- left message that medication increased. Bambi Thomas LPN * Telephone Encounter - Rush Maxwell PA-C - 08/25/2024 6:02 PM EST Increase to 15 mg daily [facility] Maxwell MPAS, [place] * Telephone Encounter - Bambi Thomas LPN - 08/25/2024 2:49 PM EST Patient in for SPT tube change. She is asking if there is a medication that she can take along withthe Ditropan to help with bladder spasms? She does have concerns about constipation which is ongoing. Patient drinks 192 mL of water daily, sometimes more. Please review and advise. Bambi Thomas LPN documented in this encounterK[facility]12-04-2024 Telephone encounter Note * Telephone Encounter - Bambi Thomas LPN - 08/26/2024 10:11 AM EST Called patient. No answer- left message that medication increased. Bambi Thomas LPN [facility]12-03-20[facility] Telephone encounter Note* Telephone Encounter - Rush Maxwell PA-C - 08/25/2024 6:02 PM EST Increase to 15 mg daily [facility] SABINE Ray MT, PA-C [facility]12-03-2024 NoteHNO ID: [id number] Author: BAMBI THOMAS LPN Service: ? Author Type: LICENSED NURSE Type: Progress Notes Filed: 08/25/2024 15:12 Note Text: Verified name and date of . CC Supra pubic catheter in Place HPI: Katarzyna Vargas is a 49 year old female. The patient is here now for a supra pubic catheter change with diagnosis of atonic neurogenic bladder. Procedure: Performed a catheter change. Removed fluid from balloon in the schmitt. The indwelling supra pubic schmitt size 24 Fr was removed with catheter tip intact without difficulty. Inserted [address] catheter using aseptic technique. Approximately 30 mL amount of light yellow urine noted with sediment throughout. Irrigated with 60 mL 0.9% sodium chloride without difficulties. Very large amount of clear yellow urine return noted with sediment noted throughout. Bulb inflated with 20 mLs prefilled syringe- sterile water. Covered with t-sponge. Patient does not want secured with statlock. The patient tolerated the procedure well. Assessment/Plan: Successful catheter change. Return for catheter changes as planned. [facility] History of Present illness Narrative* Bambi Thomas LPN - 08/25/2024 2:54 PM EST Verified name and date of . CC Supra pubic catheter in Place HPI: Katarzyna Vargas is a 49 year old female. The patient is here now for a supra pubic catheter change with diagnosis of atonic neurogenic bladder. Procedure: Performed a catheter change. Removed fluid from balloon in the schmitt. The indwelling supra pubic schmitt size 24 Fr was removed with catheter tip intact without difficulty. Inserted [address] catheter using aseptic technique. Approximately 30 mL amount of light yellow urine noted with sediment throughout. Irrigated with 60 mL 0.9% sodium chloride without difficulties. Very large amount of clear yellow urine return noted with sediment noted throughout. Bulb inflated with 20 mLs prefilled syringe- sterile water. Covered witht-sponge. Patient does not want secured with statlock. The patient tolerated the procedure well. Assessment/Plan: Successful catheter change. Return for catheter changes as planned. Bambi Thomas LPN documented in this encounterK[facility]12-[facility]-2024 Telephone encounter Note * Telephone Encounter - Bambi Thomas LPN - 08/25/2024 2:49 PM EST Patient in for SPT tube change. She is asking if there is a medication that she can take along withthe Ditropan to help with bladder spasms? She does have concerns about constipation which is ongoing. Patient drinks 192 mL of water daily, sometimes more. Please review and advise. Bambi Thomas LPN [facility]11-05-2024 NoteHNO ID: [id number] Author: BAMBI THOMAS LPN Service: ? Author Type: LICENSED NURSE Type: Progress Notes Filed: 07/28/2024 14:36 Note Text: Verified name and date of . CC Supra pubic catheter in Place HPI: Katarzyna Vargas is a 49 year old female. The patient is here now for a supra pubic catheter change with diagnosis of atonic neurogenic bladder. Procedure: Performed a catheter change. Removed fluid from balloon in the schmitt. The indwelling supra pubic schmitt size 24 Fr was removed with catheter tip intact without difficulty. Inserted [address] catheter using aseptic technique. Small amount of light yellow urine noted with sediment throughout. Irrigated with 60 mL 0.9% sodium chloride without difficulties. Very large amount of clear yellow urine return noted with sediment noted throughout. Bulb inflated with 20 mLs prefilled syringe- sterile water. Covered with t-sponge. Patient does not want secured with statlock. The patient tolerated the procedure well. Assessment/Plan: Successful catheter change. Return for catheter changes as planned. [facility] History of Present illness Narrative* Bambi Thomas LPN - 07/28/2024 2:22 PM EST Verified name and date of . CC Supra pubic catheter in Place HPI: Katarzyna Vargas is a 49 year old female. The patient is here now for a supra pubic catheter change with diagnosis of atonic neurogenic bladder. Procedure: Performed a catheter change. Removed fluid from balloon in the schmitt. The indwelling supra pubic schmitt size 24 Fr was removed with catheter tip intact without difficulty. Inserted [address] catheter using aseptic technique. Small amount of light yellow urine noted with sediment throughout. Irrigated with 60 mL 0.9% sodium chloride without difficulties. Very large amount of clear yellow urine return noted with sediment noted throughout. Bulb inflated with 20 mLs prefilled syringe- sterile water. Covered with t-sponge. Patient does not want secured with statlock. The patient tolerated the procedure well. Assessment/Plan: Successful catheter change. Return for catheter changes as planned. Bambi Thomas LPN documented in this encounterK[facility]10-[facility] Telephone encounter Note * Telephone Encounter - Yessy Mares MA - 07/02/2024 8:19 AM EDT Detailed message left to inform of negative results. Yessy Mares MA [facility]10-10-2024 Miscellaneous Notes* Telephone Encounter - Yessy Mares MA - 07/02/2024 8:19 AM EDT Detailed message left to inform of negative results. Yessy Mares MA * Telephone Encounter - Yessy Mares MA - 07/02/2024 8:16 AM EDT ----- Message from Rush Maxwell PA-C sent at 07/01/2024 5:40 PM EDT ----- No infection in the urine SABINE Ray MT, PA-C documented in this encounterK[facility]10-10-2024 Telephone encounter Note * Telephone Encounter - Yessy Mares MA - 07/02/2024 8:16 AM EDT ----- Message from Rush Maxwell PA-C sent at 07/01/2024 5:40 PM EDT ----- No infection in the urine SABINE Ray MT, PA-C [facility]10-08-2024 NoteHNO ID: [id number] Author: RUSH MAXWELL PA-C Service: ? Author Type: Physician Atomic Fuel Assembler Type: Progress Notes Filed: 07/30/2024 22:35 Note Text: Verified name and date of . CC Supra pubic catheter in Place HPI: Katarzyna Vargas is a 49 year old female. The patient is here now for a supra pubic catheter change with diagnosis of atonic neurogenic bladder. Procedure: Performed a catheter change. Removed fluid from balloon in the schmitt. The indwelling supra pubic schmitt size 24 Fr was removed with catheter tip intact without difficulty. Inserted [address] catheter using aseptic technique. Large amount of light yellow urine noted with specks of blood throughout. Patient reports having extra amounts of sediment and blood noted throughout tubing and drainage bag. Irrigated with 60 mL 0.9% sodium chloride without difficulties. Very large amount of clear yellow urine return noted. Bulb inflated with 20 mLs prefilled syringe- sterile water. Covered with t-sponge. Patient does not want secured with statlock. The patient tolerated the procedure well. Assessment/Plan: Successful catheter change. Return for catheter changes as planned. Does have appointment scheduled with provider today. Bambi Thomas LPN Discussed SPT exchanges which have been uneventful and ordered [address]mitt catheters Due to patient concerns of mucous and some small amount of blood and will get urine culture Follow-up monthly SPT exchanges as planned > 1 year Appt w/ B. SABINE Maxwell, [place] EPSTEIN for annual follow-up and refills. [facility]10-08-2024 History of Present illness Narrative* Rush Maxwell PA-C - 06/30/2024 3:44 PM EDT Verified name and date of . CC Supra pubic catheter in Place HPI: Katarzyna Vargas is a 49 year old female. The patient is here now for a supra pubic catheter change with diagnosis of atonic neurogenic bladder. Procedure: Performed a catheter change. Removed fluid from balloon in the schmitt. The indwelling supra pubic schmitt size 24 Fr was removed with catheter tip intact without difficulty. Inserted [address] catheter using aseptic technique. Large amount of light yellow urine noted with specks of blood throughout. Patient reports having extraamounts of sediment and blood noted throughout tubing and drainage bag. Irrigated with 60 mL 0.9% so dium chloride without difficulties. Very large amount of clear yellow urine return noted. Bulb inflated with 20 mLs prefilled syringe- sterile water. Covered with t-sponge. Patient does not want secured with statlock. The patient tolerated the procedure well. Assessment/Plan: Successful catheter change. Return for catheter changes as planned. Does have appointment scheduled with provider today. Bambi Thomas LPN Discussed SPT exchanges which have been uneventful and ordered [address]mitt catheters Due to patient concerns of mucous and some small amount of blood and will get urine culture Follow-up monthly SPT exchanges as planned > 1 year Appt w/ B. SABINE Maxwell, [place]ALIA EPSTEIN for annual follow-up and refills. documented in this encounterK[facility]09-[facility]-2024 NoteHNO ID: [id number] Author: BAMBI THOMAS LPN Service: ? Author Type: LICENSED NURSE Type: Progress Notes Filed: 05/26/2024 15:11 Note Text: Verified name and date of . CC Supra pubic catheter in Place HPI: Katarzyna Vargas is a 49 year old female. The patient is here now for a supra pubic catheter change with diagnosis of atonic neurogenic bladder. Procedure: Performed a catheter change. Removed fluid from balloon in the schmitt. The indwelling supra pubic schmitt size 24 Fr was removed with catheter tip intact without difficulty. Spoke with supplies personnel and the 24 FR have not arrived due to being on back order. Spoke with provider, Rush Maxwell PA-C and it is okay to use a 22 FR 3-way that we have. Patient aware of use of 22 FR 3-way and reviewed with her how to irrigate and supplies sent home with her. She did validate understanding on how to irrigate if she needs to. Inserted [address] catheter using aseptic technique. Large amount of light yellow urine noted. Irrigated with 60 mL sterile water without difficulties. Very large amount of clear yellow urine return noted. Bulb inflated with 20 mLs prefilled syringe- sterile water. Patient states she does not want the full 30 mL balloon filled as it does cause discomfort. Covered with t-sponge. Patient does not want secured with statlock. The patient tolerated the procedure well. Assessment/Plan: Successful catheter change. Return for catheter changes as planned. Does have appointment scheduled with provider for next visit. [facility] History of Present illness Narrative* Bambi Thomas LPN - 05/26/2024 2:50 PM EDT Verified name and date of . CC Supra pubic catheter in Place HPI: Katarzyna Vargas is a 49 year old female. The patient is here now for a supra pubic catheter change with diagnosis of atonic neurogenic bladder. Procedure: Performed a catheter change. Removed fluid from balloon in the schmitt. The indwelling supra pubic schmitt size 24 Fr was removed with catheter tip intact without difficulty. Spoke with supplies personnel and the 24 FR have not arrived due to being on back order. Spoke with provider, Rush Maxwell PA-C and it is okay to use a 22FR 3-way that we have. Patient aware of use of 22 FR 3-way and reviewed with her how to irrigate and supplies sent home with her. She did validate understanding on how to irrigate if she needs to. Inserted [address] catheter using aseptic technique. Large amount of light yellow urine noted. Irrigated with 60 mL sterile water without difficulties. Very large amount of clear yellow urine return noted. Bulb inflated with 20 mLs prefilled syringe- sterile water. Patient states she does not want the full 30 mL balloon filled as it does cause discomfort. Covered with t-sponge. Patient does not want secured with statlock. The patient tolerated the procedure well. Assessment/Plan: Successful catheter change. Return for catheter changes as planned. Does have appointment scheduled with provider for next visit. Bambi Thomas LPN documented in this encounterK[facility]07-[facility]-2024 NoteHNO ID: [id number] Author: BAMBI THOMAS LPN Service: ? Author Type: LICENSED NURSE Type: Progress Notes Filed: 04/07/2024 16:52 Note Text: Verified name and date of . CC Supra pubic catheter in Place HPI: Katarzyna Vargas is a 49 year old female. The patient is here now for a supra pubic catheter change with diagnosis of atonic neurogenic bladder. Procedure: Performed a catheter change. Removed fluid from balloon in the schmitt. The indwelling supra pubic schmitt size 24 Fr was removed with catheter tip intact without difficulty. Inserted [address] catheter using aseptic technique. Large amount of light yellow urine noted. Irrigated with 60 mL sterile water without difficulties. Very large amount of clear yellow urine return noted. Bulb inflated with 20 mLs prefilled syringe- sterile water. Patient states she does not want the full 30 mL balloon filled as it does cause discomfort. Covered with t-sponge. Encouraged use of t-sponge due to skin folds moist and rubbing around supra pubic catheter. Patient does not want secured with statlock. Verbalizes that she drinks a lot of water and is doing well with catheter size. The patient tolerated the procedure well. Assessment/Plan: Successful catheter change. Return for catheter changes as planned. [facility] History of Present illness Narrative* Bambi Thomas LPN - 04/07/2024 4:32 PM EDT Verified name and date of . CC Supra pubic catheter in Place HPI: Katarzyna Vargas is a 49 year old female. The patient is here now for a supra pubic catheter change with diagnosis of atonic neurogenic bladder. Procedure: Performed a catheter change. Removed fluid from balloon in the schmitt. The indwelling supra pubic schmitt size 24 Fr was removed with catheter tip intact without difficulty. Inserted [address] catheter using aseptic technique. Large amount of light yellow urine noted. Irrigated with 60 mL sterile water without difficulties. Very large amount of clear yellow urine return noted. Bulb inflated with 20 mLs prefilled syringe- sterile water. Patient states she does not want the full 30 mL balloon filled as it does cause discomfort. Covered with t-sponge. Encouraged use of t-sponge due to skin folds moist and rubbing around supra pubic catheter. Patient does not want secured with statlock. Verbalizes that she drinks a lot of water and is doing well with catheter size. The patient tolerated the procedure well. Assessment/Plan: Successful catheter change. Return for catheter changes as planned. Bambi Thomas LPN documented in this encounterK[facility]06-[facility] History of Present illness Narrative* Bambi Thomas LPN - 03/03/2024 2:41 PM EDT Verified name and date of . CC Supra pubic catheter in Place HPI: Katarzyna Vargas is a 49 year old female. The patient is here now for a supra pubic catheter change with diagnosis of atonic neurogenic bladder. Procedure: Performed a catheter change. Removed fluid from balloon in the schmitt. The indwelling supra pubic schmitt size 24 Fr was removed with catheter tip intact without difficulty. Inserted [address] catheter using aseptic technique. Patient states she wanted two way because ever since she had norwegian increased to 24 she no longer irrigates. Large amount of light yellow urine noted. Irrigated with 60 mL sterile water without difficulties. Very large amount of clear yellow urine return noted. Bulb inflated with 10 mLs prefilled syringe- sterile water. Declined t-sponge to cover. Patient does not want secured with statlock. Verbalizes that she drinks a lot of water and is doing well with catheter size. The patient tolerated the procedure well. Assessment/Plan: Successful catheter change. Return for catheter changes as planned. Bambi Thomas LPN documented in this encounterK[facility]04-28-2024 Discharge summary Author Bradly Eden [facility] January 19, 2024 11:33pm Note Date/Time January 19, 2024 9:1 7pm [facility] Medical Records Department [address] [place] [id number] Emergency Department Summary 01/19/24 MR#: [id number] Acct: [id number] Name: KATARZYNA VARGAS Rep #:[id number] : 1975 48 From: Bradly Eden MD PCP: Dr. Darrel Veloz, DO Status:REG ER Location: ED HPI History of Present Illness Chief Complaint: Schmitt C/O Detail of Chief Complaint: Concern patient's suprapubic catheter is not working well and that she has Informant: patient Onset/Context/Timing Onset: Days Context: Sudden Onset Timing: Intermittent Quality: Incontinence with irritation of the vaginal region. Current Severity: Mild Maximum Severity: Moderate Worsened by: Urinary incontinence Relieved by: Nothing Associated Symptoms Associated Symptoms: Subjective fever yesterday without chills Narrative Narrative: patient is a 48-year-old morbidly obese female who has a suprapubic catheter inplace. Has not been changed for 2 months. She states her significant mount of debris. She also reporting concern regarding drainage. She has had incontinence and irritation of the genital region. She reported subjective fever yesterday. She did not have chills. She denies nausea, vomiting diarrhea. She denies low back pain or flank pain. She denies skin rash on her abdomen or back. She has no other complaints. Prior similar symptoms: Yes Recent Illness/Hospitalization: No PFSH PFSH Medical History Acute embolism and thrombosis of unspecified deep veins of left lower extremity Alcohol abuse Arthropathy Asthma Bipolar 1 disorder Cognitive communication deficit Depression Functional dyspepsia Hepatitis IVDU (intravenous drug user) Muscle weakness (generalized) Opiate dependence Polysubstance (including opioids) dependence, daily use Smoker Home Medications albuterol sulfate 90 mcg/actuation aerosol inhaler (Ventolin HFA) 2 puff inhalation PRN SOB 05/17/23 [History Last Taken Unknown] amitriptyline 10 mg tablet 10 mg PO QHS 05/17/23 [History Last Taken Unknown] baclofen 20 mg tablet 60 mg PO DAILY 05/17/23 [History Last Taken Unknown] clonazepam 0.5 mg tablet (Klonopin) 0.5 mg PO QHS PRN 05/17/23 [History Last Taken Unknown] dantrolene 25 mg capsule 25 mg PO BID 05/17/23 [History Last Taken Unknown] duloxetine 30 mg capsule,delayed release 30 mg PO BID 05/17/23 [History Last Taken Unknown] famotidine 20 mg tablet 20 mg PO BID 05/17/23 [History Last Taken Unknown] fluorometholone 0.1 % eye drops,suspension 1 drp ophthalmic (eye) DAILY 05/17/23[History Last Taken Unknown] furosemide 20 mg tablet (Lasix) 20 mg PO DAILY 05/17/23 [History Last Taken Unknown] gabapentin 400 mg capsule 400 mg PO DAILY 05/17/23 [History Last Taken Unknown] gabapentin 800 mg tablet 800 mg PO QHS 05/17/23 [History Last Taken Unknown] ibuprofen 800 mg tablet 800 mg PO DAILY PRN pain 05/17/23 [History Last Taken Unknown] loratadine 10 mg tablet 10 mg PO DAILY 05/17/23 [History Last Taken Unknown] methocarbamol 500 mg tablet 1,000 mg PO TID 05/17/23 [History Last Taken Unknown] nystatin 100,000 unit/gram topical powder 1 applic topical DAILY 05/17/23 [History Last Taken Unknown] oxybutynin chloride 10 mg tablet,extended release 24 hr 10 mg PO DAILY 05/17/23 [History Last Taken Unknown] promethazine 25 mg tablet 25 mg PO Q4H PRN 05/17/23 [History Last Taken Unknown] tizanidine 4 mg tablet 8 mg PO QHS 05/17/23 [History Last Taken Unknown] oxycodone 5 mg tablet 5 mg PO Q6H PRN pain 3 days #14 tabs 12/07/23 [Rx Last Taken Unknown] atorvastatin 20 mg tablet 20 mg PO DAILY 01/19/24 [History Last Taken Unknown] coenzyme Q10 100 mg capsule 100 mg PO DAILY 01/19/24 [History Last Taken Unknown] docusate sodium 100 mg tablet (DOK) 100 mg PO DAILY 01/19/24 [History Last Taken Unknown] multivitamin 1 tab PO DAILY 01/19/24 [History Last Taken Unknown] pantoprazole 40 mg tablet,delayed release 40 mg PO DAILY 01/19/24 [History Last Taken Unknown] Allergy/AdvReac Type Severity Reaction Status Date / Time hydrocodone bitartrate Allergy Itching Verified 01/19/24 21:10 [From Vicodin] Surgical History Chronic suprapubic catheter History of cholecystectomy Social History Smoking Status: Current every day smoker tobacco type: cigarettes ROS ROS ED Constitutional Constitutional ED: Reports fever(s) and subjective; Denies chills or sweats Eyes Eyes: Denies blurry vision or change in vision Gastrointestinal Gastrointestinal: Denies abdominal pain, nausea or vomiting Genitourinary Genitourinary ED: Reports dysuria, urinary frequency and other Details: Also complains of incontinence. ; Denies hematuria Musculoskeletal Musculoskeletal: Denies arthralgias, back pain or myalgias Integumentary Reports rash Hematologic/Lymphatic Hematologic/Lymphatic: Reports systems reviewed and no addt'l complaints, exceptas documented EXAM Physical Exam Const Vital Signs: 01/19/24 21:07 01/19/24 22:33 Temperature 98.3 F Temperature Source Temporal Pulse Rate 83 81 Respiratory Rate 16 20 H Blood Pressure 107/73 130/69 H Blood Pressure Mean 84 89 Pulse Ox 98 99 Oxygen Delivery Method Room Air Room Air Positive well nourished, well developed and obese General Appearance ED: well developed and NAD; Negative for cyanotic or diaphoretic Nutritional Appearance: obese HEENT Reports moist mucous membranes HEENT Narrative: Atraumatic normocephalic. Ears normal. Eyes PERRL and EOMs intact bilaterally General Eye ED: Negative for scleral icterus Resp normal respiratory effort and clear to auscultation bilaterally Cardio regular rate and regular rhythm GI normal to inspection, nondistended, normoactive bowel sounds, non-tender, non-distended and no masses; Negative for hepatosplenomegaly Narrative: External genitalia reveals a yeast infection. There is slight irritation of theurethra opening. There is no [place] lymphadenopathy. There is no evidence of cellulitis. Back/Spine no CVA tenderness Neuro oriented x3 and CN's II-XII intact bilaterally Sensorium / Orientation: alert Psych mental status grossly normal MDM MDM MDM Narrative Medical decision making narrative: Will have nurse get patient in bed and undressed and clinical services assistant external genital exam. Also nurse was asked to get a 24 [place] three-way for me to replace her suprapubic catheter since it is full of debris. Will obtain CBC to assess white count differential. BMP to assess renal function, glucose CO2 anion gap. UA was obtained because of concern for infection. Differential for dysuria is urinary tract infection, chemical dermatitis due to incontinence, vaginal/pelvic infection. Lab Data Attestation: I reviewed the patient's lab results. Lab results narrative: CBC and differential are normal. H&H is normal. Basic metabolic panel reveals elevated CO2. Patient had elevated CO2 in the past. Basic metabolic panel is otherwise unremarkable. Macro urinalysis is remarkable for protein, occult blood and leukoesterase. Negative for nitrites. Microscopic is pending. Microscopic reveals 0-5 RBCs with 50-100 WBCs and 3+ bacteria. Culture was sent. Review of prior culture and sensitivities indicates patient had Pseudomonas aeruginosa, MRSA, Morganella. Review of sensitivity reports for prior infections it was noted that prior organisms were sensitive to Bactrim. Therefore we will treat with Bactrim since she does not have contraindication. Labs: Laboratory Results - last 24 hr 01/19/24 01/19/24 22:11 22:46 WBC 6.9 RBC 4.46 Hgb 14.3 Hct 42.8 MCV 96.0 MCH 32.1 H MCHC 33.4 RDW Std Deviation 43.5 RDW Coeff of Katie 12.3 Plt Count 225 MPV 10.4 Immature Gran % (Auto) 0.300 Neut % (Auto) 58.3 Lymph % (Auto) 30.9 [place] % (Auto) 7.4 Eos % (Auto) 2.2 Baso % (Auto) 0.9 Absolute Neuts (auto) 4.0 Absolute Lymphs (auto) 2.12 Nucleated RBC % 0 Sodium 138 Potassium 3.3 L Chloride 101 Carbon Dioxide 34.0 H Anion Gap 3 L BUN 16 Creatinine 0.90 Est GFR (MDRD) Af Amer 86 Est GFR (MDRD) Non-Af 71 BUN/Creatinine Ratio 17.9 Glucose 88 Calcium 9.0 Urine Color Yellow Urine Clarity Cloudy Urine pH 7.0 Ur Specific [place] 1.010 Urine Protein 100 H Urine Glucose (UA) Normal Urine Ketones Negative Urine Occult Blood 150 H Urine Nitrite Negative Urine Bilirubin Negative Urine Urobilinogen Normal Ur Leukocyte Esterase 500 H Urine RBC 0-5 SEEN Urine WBC 50-100 SEEN Ur Squamous Epith Cells 0 SEEN Ur Transition Epith Cell 0-5 SEEN Urine Bacteria 3+ Urine Mucus 0 SEEN Procedures Other Procedures Procedure(s): Exchanged suprapubic catheter. Patient had a 24 [place] three-way was replaced with a 24 [place] three-way. This was done with the assistance of the nurse without complication. Discharge Plan Triage Chief Complaint: Schmitt C/O ED Provider: Bradly Eden Dx/Rx/DC Orders Clinical Impression: Encounter for suprapubic catheter care, Yeast vaginitis, Complicated urinary tract infection, History of chronic carbon dioxide retention, Elevated blood pressure reading without diagnosis of hypertension Prescriptions: No Action albuterol sulfate [Ventolin HFA] 90 mcg/actuation HFA aerosol inhaler 2 puff INHALATION PRN (Reason: SOB) amitriptyline 10 mg tablet 10 mg PO QHS baclofen 20 mg tablet 60 mg PO DAILY dantrolene 25 mg capsule 25 mg PO BID duloxetine 30 mg capsule,delayed release(DR/EC) 30 mg PO BID famotidine 20 mg tablet 20 mg PO BID fluorometholone 0.1 % drops,suspension 1 drp ophthalmic (eye) DAILY gabapentin 400 mg capsule 400 mg PO DAILY gabapentin 800 mg tablet 800 mg PO QHS ibuprofen 800 mg tablet 800 mg PO DAILY PRN (Reason: pain) clonazepam [Klonopin] 0.5 mg tablet 0.5 mg PO QHS PRN furosemide [Lasix] 20 mg tablet 20 mg PO DAILY loratadine 10 mg tablet 10 mg PO DAILY methocarbamol 500 mg tablet 1,000 mg PO TID nystatin 100,000 unit/gram powder 1 applic TOPICAL DAILY oxybutynin chloride 10 mg tablet extended release 24hr 10 mg PO DAILY promethazine 25 mg tablet 25 mg PO Q4H PRN tizanidine 4 mg tablet 8 mg PO QHS multivitamin Tablet 1 tab PO DAILY atorvastatin 20 mg tablet 20 mg PO DAILY pantoprazole 40 mg tablet,delayed release (DR/EC) 40 mg PO DAILY docusate sodium [DOK] 100 mg tablet 100 mg PO DAILY coenzyme Q10 100 mg capsule 100 mg PO DAILY oxycodone 5 mg tablet 5 mg PO Q6H PRN (Reason: pain) 3 Days Qty: 14 0RF Primary Care Provider: Darrel Veloz Referrals: Darrel Veloz DO [Primary Care Provider] - 3-5 Days if not improving Disposition Disposition: Home, Self Care What to do if you have Problems For any increased pain, shortness of breath, bleeding, nausea or vomiting, chestpain, or any unexpected problems, contact your Primary Care Provider. Call [facility] ([phone]) or report to the closest Emergency Room. Call 911 if necessary. 01/19/24 4791 <Electronically signed by Bradly Eden MD> Cosigner Signature (if applicable): CC: Dr. Darrel Veloz DO ~ Signed [facility] Work Phone: [phone]) 575-128104-24-2024 Telephone encounter Note* Telephone Encounter - Bambi Thomas LPN - 01/15/2024 4:32 PM EDT Called patient- number has been disconnection or out of service. Patient was scheduled for appointment for SPT change yesterday. Bambi Thoams LPN [facility]04-24-2024 Miscellaneous Notes* Telephone Encounter - Bambi Thomas LPN - 01/15/2024 4:32 PM EDT Called patient- number has been disconnection or out of service. Patient was scheduled for appointment for SPT change yesterday. Bambi Thomas LPN documented in this encounterK[facility]03-25-[facility]24 Miscellaneous Notes* Telephone Encounter - Bambi Thomas LPN - 12/16/2023 11:09 AM EDT Called patient. Verified name and date of . Aware of order for drainage bags at pharmacy. Verbalizes understanding. Bambi Thomas LPN * Telephone Encounter - Bambi Thomas LPN - 12/13/2023 4:38 PM EDT Called patient. No answer- left message. Aware order pending for provider. Bambi Thomas LPN * Telephone Encounter - Sarah Hager MA - 12/13/2023 1:21 PM EDT Patient reports a hole in her bag and no new ones in home. Can she bead picker one in [facility] today,She reports she has done this before. Patient asks that a prescription be sent to [facility] in [facility] Sarah Hager MA documented in this encounterK[facility]03-18-2024 Miscellaneous Notes* Telephone Encounter - Yessy Mares MA - 12/09/2023 2:49 PM EDT Pt notified and verbalizes understanding. Yessy Mares MA * Telephone Encounter - Bambi Thomas LPN - 12/09/2023 1:28 PM EDT Called patient. No answer- left message to call clinic for results. Bambi Thomas LPN * Telephone Encounter - Bambi Thomas LPN - 12/06/2023 4:11 PM EDT Called patient. No answer- left message to call clinic for results. Bambi Thomas LPN * Telephone Encounter - Bambi Thomas LPN - 12/06/2023 4:09 PM EDT ----- Message from Rush Maxwell PA-C sent at 12/06/2023 1:10 PM EDT ----- No infection in the urine SABINE Ray, ORALIA EPSTEIN documented in this encounterK[facility]03-16-2024 Discharge summary Author Sarah Saucedo [facility] December 07, 2023 8:31am Note Date/Time December 07, 2023 4:5 6am [facility] Medical Records Department [address] [place] [address] Emergency Department Summary 12/07/23 MR#: [id number] Acct: [id number] Name: KATARZYNA VARGAS Rep #:[id number] : 1975 48 From: Sarah Saucedo MD PCP: Dr. Darrel Veloz, DO Status:REG ER Location: ED HPI History of Present Illness Chief Complaint: Lower Extremity Injury Informant: patient Onset/Context/Timing Onset: Yesterday Narrative Narrative: Patient presents via EMS from [facility]. She states she is currently inassisted living and fell yesterday around noon. She states she will usually stand from a chair, turn to pivot, and sit in a wheelchair. As she was doing this yesterday her legs gave out on her and she fell injuring her right ankle. She states she had right tib-fib x-rays done via portable service yesterday afternoon and the report showed a tibia/fibula fracture. Patient states they encouraged her to come to the emergency room but she was afraid that she would be forced to go back to her group home. She called EMS early this morning secondary to pain. PFSH PFSH Medical History Alcohol abuse Asthma Bipolar 1 disorder Depression Hepatitis IVDU (intravenous drug user) Muscle weakness (generalized) Opiate dependence Polysubstance (including opioids) dependence, daily use Smoker Home Medications albuterol sulfate 90 mcg/actuation aerosol inhaler (Ventolin HFA) 2 puff inhalation PRN SOB 05/17/23 [History Last Taken Unknown] amitriptyline 10 mg tablet 10 mg PO QHS 05/17/23 [History Last Taken Unknown] baclofen 20 mg tablet 60 mg PO DAILY 05/17/23 [History Last Taken Unknown] clonazepam 0.5 mg tablet (Klonopin) 0.5 mg PO QHS PRN 05/17/23 [History Last Taken Unknown] dantrolene 25 mg capsule 25 mg PO BID 05/17/23 [History Last Taken Unknown] duloxetine 30 mg capsule,delayed release 30 mg PO BID 05/17/23 [History Last Taken Unknown] famotidine 20 mg tablet 20 mg PO BID 05/17/23 [History Last Taken Unknown] fluorometholone 0.1 % eye drops,suspension 1 drp ophthalmic (eye) DAILY 05/17/23[History Last Taken Unknown] furosemide 20 mg tablet (Lasix) 20 mg PO DAILY 05/17/23 [History Last Taken Unknown] gabapentin 400 mg capsule 400 mg PO DAILY 05/17/23 [History Last Taken Unknown] gabapentin 800 mg tablet 800 mg PO QHS 05/17/23 [History Last Taken Unknown] ibuprofen 800 mg tablet 800 mg PO DAILY PRN pain 05/17/23 [History Last Taken Unknown] loratadine 10 mg tablet 10 mg PO DAILY 05/17/23 [History Last Taken Unknown] methocarbamol 500 mg tablet 1,000 mg PO TID 05/17/23 [History Last Taken Unknown] nystatin 100,000 unit/gram topical powder 1 applic topical DAILY 05/17/23 [History Last Taken Unknown] oxybutynin chloride 10 mg tablet,extended release 24 hr 10 mg PO DAILY 05/17/23 [History Last Taken Unknown] promethazine 25 mg tablet 25 mg PO Q4H PRN 05/17/23 [History Last Taken Unknown] tizanidine 4 mg tablet 8 mg PO QHS 05/17/23 [History Last Taken Unknown] oxycodone 5 mg tablet 5 mg PO Q6H PRN pain 3 days #14 tabs 12/07/23 [Rx Last Taken Unknown] Allergy/AdvReac Type Severity Reaction Status Date / Time hydrocodone bitartrate Allergy Itching Verified 12/07/23 04:39 [From Vicodin] Surgical History History of cholecystectomy Social History Smoking Status: Current every day smoker tobacco type: cigarettes ROS ROS ED Constitutional Constitutional ED: Denies chills or fever(s) Eyes Eyes: Denies change in vision or discharge from eye(s) ENT ENT ED: Denies discharge from eye(s), rhinorrhea or sore throat Cardiovascular Cardiovascular: Denies chest pain or palpitations Respiratory/Chest Respiratory/Chest: Denies cough or dyspnea Gastrointestinal Gastrointestinal: Denies abdominal pain, nausea or vomiting Genitourinary Genitourinary ED: Denies dysuria Musculoskeletal Musculoskeletal: Reports extremity pain; Denies back pain Integumentary Denies Abrasions or rash Neurologic Neurologic: Reports weakness; Denies headache(s) Allergic/Immunologic Allergic/Immunologic ED: Denies lip swelling or urticaria EXAM Physical Exam Const Vital Signs: 12/07/23 04:39 12/07/23 05:23 12/07/23 07:59 Temperature 96.3 F L Temperature Source Temporal Pulse Rate 74 68 Respiratory Rate 16 19 H 16 Blood Pressure 109/83 H 98/59 L 106/58 L Blood Pressure Mean 91 72 74 Pulse Ox 98 95 95 Oxygen Delivery Method Room Air Room Air Positive well nourished and well developed General Appearance ED: well developed HEENT Reports moist mucous membranes Eyes EOMs intact bilaterally Chest Wall inspection of chest normal and palpation of chest normal Resp normal respiratory effort and clear to auscultation bilaterally Cardio regular rate and regular rhythm GI non-tender Palpation: soft Extremity Extremity Narrative: Mild edema noted to the left ankle with tenderness. No tenderness of the foot itself. No tenderness at the knee or proximal fibula. No abrasions or open wounds. Psych mental status grossly normal MDM MDM MDM Narrative Medical decision making narrative: Patient given a dose of oxycodone here. Patient does have a history of polysubstance abuse. I did address this with her and she states she has been clean for the last 3 years. We discussed that she has a legitimate reason for pain at this time and she is now in a controlled environment. I am not able to see the x-rays that she had performed yesterday afternoon so right ankle x-rays will be repeated at this time. Radiography Diagnostic Testing: Clinical Impression(s) from Imaging Studies Ankle X-Ray 12/07/23 05:00 IMPRESSION: 1. Moderate soft tissue swelling. 2. At least medial and lateral malleoli acute fractures. 3. Small displaced fracture fragment in the lateral joint. 4. Asymmetry of the tibiotalar joint on the lateral view, but an additional posterior malleolus fracture is not clearly seen. Advanced demineralization for age. Electronically Signed: Janel Mera MD at 6:44 EDT , Treatment and Re-Evaluation :: Right ankle x-rays per my interpretation appear to show medial and lateral malleoli fractures. Radiology interpretation is reviewed and they, that the posterior cannot be seen well. CT scan of the right ankle is obtained and confirms both medial and lateral fractures. I spoke with Dr. Price who reviewed her images. Given her poor bone density and limited mobility at baseline, plan will be to treat this nonoperatively. Patient is placed in a splint at this time and when she follows up in the office will be switched out to a cast. Patient was asked multiple times if she feels that she can get around at home with not putting any weight on her right leg and she is insistentthat she can do this. I will give her prescription for analgesics. She is to call Dr. Price's office on Saturday for follow-up. Procedures Lower Extremity Splints Lower Extremity Splint: Orthoglass and - (Posterior splint with sugar-tong) Splint Fabrication: Fabricated Location: Right Discharge Plan Triage Chief Complaint: Lower Extremity Injury ED Provider: Sarah Saucedo Dx/Rx/DC Orders Clinical Impression: Bimalleolar ankle fracture Instructions: ED Ankle Fracture Prescriptions: New oxycodone 5 mg tablet 5 mg PO Q6H PRN (Reason: pain) 3 Days Qty: 14 0RF No Action albuterol sulfate [Ventolin HFA] 90 mcg/actuation HFA aerosol inhaler 2 puff INHALATION PRN (Reason: SOB) amitriptyline 10 mg tablet 10 mg PO QHS baclofen 20 mg tablet 60 mg PO DAILY dantrolene 25 mg capsule 25 mg PO BID duloxetine 30 mg capsule,delayed release(DR/EC) 30 mg PO BID famotidine 20 mg tablet 20 mg PO BID fluorometholone 0.1 % drops,suspension 1 drp ophthalmic (eye) DAILY gabapentin 400 mg capsule 400 mg PO DAILY gabapentin 800 mg tablet 800 mg PO QHS ibuprofen 800 mg tablet 800 mg PO DAILY PRN (Reason: pain) clonazepam [Klonopin] 0.5 mg tablet 0.5 mg PO QHS PRN furosemide [Lasix] 20 mg tablet 20 mg PO DAILY loratadine 10 mg tablet 10 mg PO DAILY methocarbamol 500 mg tablet 1,000 mg PO TID nystatin 100,000 unit/gram powder 1 applic TOPICAL DAILY oxybutynin chloride 10 mg tablet extended release 24hr 10 mg PO DAILY promethazine 25 mg tablet 25 mg PO Q4H PRN tizanidine 4 mg tablet 8 mg PO QHS Primary Care Provider: Darrel Veloz Referrals: Linus Price DPM [Med Staff - Active Staff] - 5-7 Days Darrel Veloz DO [Primary Care Provider] - Disposition Disposition: Home, Self Care What to do if you have Problems For any increased pain, shortness of breath, bleeding, nausea or vomiting, chestpain, or any unexpected problems, contact your Primary Care Provider. Call [facility] ([phone]) or report to the closest Emergency Room. Call 911 if necessary. 12/07/23 0831 <Electronically signed by Sarah Saucedo MD> Cosigner Signature (if applicable): CC: Dr. Darrel Veloz, DO ~ Signed [facility] Work Phone: [phone]) 523-552803-12-2024 History of Present illness Narrative* Dali Story LPN - 12/03/2023 1:47 PM EDT Verified name and date of . CC Supra pubic catheter in Place HPI: Katarzyna Vargas is a 48 year old female. The patient is here now for a supra pubic catheter change with diagnosis of atonic neurogenic bladder. Patient c/o pain, cloudy, foul smelling urine. Urine collected for lab Procedure: Performed a catheter change. Removed fluid from balloon in the schmitt. The indwelling supra pubic schmitt size 24 Fr was removed with catheter tip intact without difficulty. Inserted [address] catheter using aseptic technique. Large amount of light yellow urine noted. Irrigated with 60 mL sterile water without difficulties.Very large amount of clear yellow urine return noted. Bulb inflated with 20 mLs prefilled syringe- sterile water. Covered SPT with T-Sponge to drainage bag. Patient does not want secured with stat lock Verbalizes that she drinks a lot of water and is doing well with catheter size. The patient tolerated the procedure well. Assessment/Plan: Successful catheter change. Return for catheter changes as planned. Dali Story LPN December 03, 2023 1:47 PM documented in this encounterK[facility]01-[facility]-2024 Telephone encounter Note * Telephone Encounter - Dayday Orellana - 09/25/2023 2:14 PM EST Left voicemail to see if patient still interested in program. [facility] [id number] Miscellaneous Notes* Telephone Encounter - Dayday Orellana - 09/25/2023 2:14 PM EST Left voicemail to see if patient still interested in program. * Telephone Encounter - aDyday Orellana - 09/25/2023 2:13 PM EST Left voicemail to see if patient still interested in surgical program. * Telephone Encounter - Stephenie Rendon - 09/25/2023 2:05 PM EST EGD Orders sent back to [facility] after several unsuccessful attempts were made to reach patient to schedule EGD surgery. Routed to Reyna Naylor. * Telephone Encounter - Danielle Chambers LPN - 07/24/2023 3:26 PM EDT Pre op check list scanned to [facility], orders mailed. * Addendum Note - JONA Quiroz - 07/23/2023 9:57 AM EDTAddended by: MINH LUU on: 07/23/2023 09:57 AM Modules accepted: Orders * Telephone Encounter - JONA Quiroz - 07/23/2023 9:53 AM EDT Orders added. EGD documentation encounter created. Checklist completed and provided with orders with clinical team for processing. BARIATRIC AND METABOLIC SURGERY [facility] PATIENT SUMMARY Katarzyna Alcantar 48 y.o. female with Body mass index is 47.1 kg/m . Planned Procedures: Laparoscopic Sleeve Gastrectomy DM[] HTN[] MODESTO[] GERD[x] HL[] OA[] TOB[x] Date of Surgery: NATAN VELOZ INITIAL PRE-OP TESTING ORDERS/ RESULTS Labwork [x] CMP, TSH, Fasting Lipid Profile, Mg, Zinc, Vit B1 (whole blood), Vit B12, 25-OH Vit D, Fe, Ferritin, Folate, Hgb A1c EGD [x] Dx: [x] GERD [] Dyspepsia [] Other [] Not ordered Pathology [x] H. pylori [] Negative [] Positive [] Stool Antigen UGI [x] US Abdomen [] [x] S/p lisa [] Not ordered MODESTO eval [x] [] On CPAP / Obtain settings Toxicology [x] [x] Urine drug screen/ETOH [x] Nicotine Additional [] INITIAL CONSULTATIONS ORDERED CLEARANCE / MANAGEMENT Psychology [x] Dietitian [x] Cardiology [x] Pulmonary [x] Others [] []Heme/Onc []Pain mgmt []Other: PSD [x] Physician supervised diet: []None []3 mos [x]6 mos Preop diet [x] Preop low calorie diet: []1 wk [x]2 wks [] Other: FINAL PRE-OP TESTING ORDERS RESULTS Labwork [x] [x] CBC [x]BMP [x]Serum Nicotine / Cotinine EKG [x] CXR [] POST-OP MEDICATIONS Ulcer Ppx [] Omeprazole 20 mg PO []QD Gallstone Ppx [] Ursodiol 300 mg []BID DVT Ppx [] DVT prophylaxis per final preop visit estimated risk Estimated calculated risk: % Schedule final pre-operative office visit with surgeon, pre-operative education class, and pre-operative exercise class prior to date of surgery She has a daily tobacco user and as a result we will proceed with sleeve gastrectomy * Telephone Encounter - Valencia Jimenez - 07/18/2023 2:31 PM EDT Initial New [facility] surgical patient Navigation & Financial Counseling Discussion Patient Communication: In office SURGEON: [x] ARABELLA [] AD [] MP [] TB [] LM PROCEDURE: [] LRYGB [] LSG [] LÓPEZ-S [] LÓPEZ [] UNDECIDED [] REV: SPECIFY: Confirmed pt wants to continue with surgical program/plan [x] YES [] NO (complete program withdrawal note/process) CO-MORBIDS: [] NONE [] DM []HTN [] MODESTO []GERD [] OTH: PRIVATE PAY: [] NO []YES DATE OF INITIAL BENEFITS VERIFICATION: TRANSFER FU: [] YES [] NO PRIMARY INSURANCE: Pay[place] - [place] / Plan[place] / Product Type: Medicaid / BENEFIT ON PLAN: [] NO [] YES BENEFIT MAX: [] NO [] YES -- BENEFIT MAX: $ EMPLOYER: DIET AND EXERCISE (DE) REQUIREMENT PRIMARY [] NONE []3M [] 6M []9M [] Medicare 4 Months [] SPR (3M) []OTHER: SECONDARY INSURANCE: BENEFIT ON PLAN: [] NO [] YES BENEFIT MAX: [] NO [] YES -- BENEFIT MAX: $ AUTH REQUIRED FROM SECONDARY [] NO [] YES DIET AND EXERCISE REQUIREMENT SECONDARY [] NONE []3M [] 6M [] Medicare 4 months [] SPR (3M) []OTHER: ___ [x] Discussed with patient: Financial cost overview (document signed and pt given copy at new pt consult visit with surgeon), Initial appointments: Bariatric Nutrition Assessment (BNA) & Diet and Exercise (DE) Patient to look for yellow envelope in mail. This yellow envelope will contain orders for labs, testing and required clearances. Pt encouraged to complete early in program to prevent delays. Encourage blood work to be draw by 1st DE appointment. [x] Reviewed OOP cost, including: [] Optifast cost of approximately $130-140/week x weeks immediately prior to surgery - used to induce rapid weight loss which results in decrease in size of liver and therefore facilitates laparoscopically surgery approach. [x] Overview of inpatient admission benefits - estimated inpatient co-pays, deductibles and/or co-insurance - Estimated OOP costs form reviewed with patient, and copy given to patient at new pt visit. [x] Reviewed next steps with patient: 1) Scheduled at new pt surgeon visit: Mental Health Professional (RD) for a Nutrition Assessment (BNA) and Pre-operative Diet and Exercise (DE)appointment #1. [x] Patient reminded to arrive 15 minutes early for check in. Late arrivals may need to be rescheduled. 2) Schedule: Diet and Exercise Apt #2 only scheduled after initial BNA and DE completed, 3) Behavioral Health apt scheduled after DE started. Reviewed rational and goal of Behavioral Health appointments. 4) [x] Reinforced need to cancel any WMI appointments 48 hours in advance. Cautioned NS/Same day cancellations may result in delay in program or program completion hold. Noted: DE series needs to be a monthly series or insurance company may require repeat of the entire series. 5) [x] Smoker/tobacco products including vaping: reviewed need for cessation before surgery clearance and life long abstinence after surgery for best outcomes. Patient navigation to surgery: [x] Explained to patient that average time from initial consult to date of surgery can be 6-8 months. - Process can take longer if there are cancelled appointments, delays in testing and/or additional clearances that needs to be completed. - Reviewed importance of patient active engagement in making and keeping appointments to keep the process moving. - Reinforced need to cancel appointments at least 48 hours in advance. Reviewed that instances of No Shows and Same Day Appointment Cancellations may result in program/surgery delay or hold. [x] Patient advised of importance of having voicemail and MyChart for office communications and lab/testing results before and after surgery. documented in this [facility]01-03-2024 Telephone encounter Note* Telephone Encounter - Dayday Orellana - 09/25/2023 2:13 PM EST Left voicemail to see if patient still interested in surgical program. [facility] [id number] Telephone encounter Note* Telephone Encounter - Stephenie Rendon - 09/25/2023 2:05 PM EST EGD Orders sent back to [facility] after several unsuccessful attempts were made to reach patient to schedule EGD surgery. Routed to Reyna Naylor. [facility] [id number] NoteNo show for EGD - will call to /[facility]11-07-2023 History of Present illness Narrative* Bambi Thomas LPN - 07/30/2023 3:08 PM EST Verified name and date of . CC Supra pubic catheter in Place HPI: Katarzyna Vargas is a 48 year old female. The patient is here now for a supra pubic catheter change. Patient reports SPT has been changed twice at [facility] due to issues but they did not have 24 FR 3-way available, nor ordered for when issue the second time occured. Currently has a [address]. Procedure: Performed a catheter change. Removed fluid from balloon in the schmitt. The indwelling supra pubic schmitt size 18 Fr was removed with catheter tip intact without difficulty. Inserted [address] catheter using aseptic technique. Small amount of light yellow urine noted. Irrigated with 60 mL sterile water without difficulties.60 mLs clear yellow urine return noted. Bulb inflated with 10 mLs prefilled syringe- sterile water.Covered SPT with T-Sponge to drainage bag. The patient tolerated the procedure well. Reviewed catheter care and verbalizes understanding. Assessment/Plan: Successful catheter change. Return for catheter changes as planned. Bambi Thomas LPN [facility] Miscellaneous Notes* Telephone Encounter - Bambi Thomas LPN - 07/26/2023 3:00 PM EDT Verified name and date of . Patient coming Saturday for SPT Tube. Patient needs order for T-sponges, Flushing solutions (does daily, some times twice daily), order for 24 FR 3-way catheter in event she has to change herself when she moves to [facility] (waiting on her insurance to approve hospital bed so she is still at [facility]. [facility] gives no nursing nursing support and patient reports she can change SPT Tube if she hasto. She needs orders printed to bead picker on Saturday. Bambi Thomas LPN [facility]11-[facility]23 Telephone encounter Note * Telephone Encounter - Danielle Chambers LPN - 07/24/2023 3:26 PM EDT Pre op check list scanned to media, orders mailed. [id number] Miscellaneous Notes* Telephone Encounter - Danielle Chambers LPN - 07/24/2023 3:26 PM EDT Pre op check list scanned to media, orders mailed. * Addendum Note - JONA Quiroz - 07/23/2023 9:57 AM EDTAddended by: MINH LUU on: 07/23/2023 09:57 AM Modules accepted: Orders * Telephone Encounter - JONA Quiroz - 07/23/2023 9:53 AM EDT Orders added. EGD documentation encounter created. Checklist completed and provided with orders with clinical team for processing. BARIATRIC AND METABOLIC SURGERY [facility] PATIENT SUMMARY Katarzyna Alcantar 48 y.o. female with Body mass index is 47.1 kg/m . Planned Procedures: Laparoscopic Sleeve Gastrectomy DM[] HTN[] MODESTO[] GERD[x] HL[] OA[] TOB[x] Date of Surgery: TBRosemarie VELOZ INITIAL PRE-OP TESTING ORDERS/ RESULTS Labwork [x] CMP, TSH, Fasting Lipid Profile, Mg, Zinc, Vit B1 (whole blood), Vit B12, 25-OH Vit D, Fe, Ferritin, Folate, Hgb A1c EGD [x] Dx: [x] GERD [] Dyspepsia [] Other [] Not ordered Pathology [x] H. pylori [] Negative [] Positive [] Stool Antigen UGI [x] US Abdomen [] [x] S/p lisa [] Not ordered MODESTO eval [x] [] On CPAP / Obtain settings Toxicology [x] [x] Urine drug screen/ETOH [x] Nicotine Additional [] INITIAL CONSULTATIONS ORDERED CLEARANCE / MANAGEMENT Psychology [x] Dietitian [x] Cardiology [x] Pulmonary [x] Others [] []Heme/Onc []Pain mgmt []Other: PSD [x] Physician supervised diet: []None []3 mos [x]6 mos Preop diet [x] Preop low calorie diet: []1 wk [x]2 wks [] Other: FINAL PRE-OP TESTING ORDERS RESULTS Labwork [x] [x] CBC [x]BMP [x]Serum Nicotine / Cotinine EKG [x] CXR [] POST-OP MEDICATIONS Ulcer Ppx [] Omeprazole 20 mg PO []QD Gallstone Ppx [] Ursodiol 300 mg []BID DVT Ppx [] DVT prophylaxis per final preop visit estimated risk Estimated calculated risk: % Schedule final pre-operative office visit with surgeon, pre-operative education class, and pre-operative exercise class prior to date of surgery She has a daily tobacco user and as a result we will proceed with sleeve gastrectomy * Telephone Encounter - Valencia Jimenez - 07/18/2023 2:31 PM EDT Initial New [facility] surgical patient Navigation & Financial Counseling Discussion Patient Communication: In office SURGEON: [x] ARABELLA [] AD [] MP [] TB [] LM PROCEDURE: [] LRYGB [] LSG [] LÓPEZ-S [] LÓPEZ [] UNDECIDED [] REV: SPECIFY: Confirmed pt wants to continue with surgical program/plan [x] YES [] NO (complete program withdrawal note/process) CO-MORBIDS: [] NONE [] DM []HTN [] MODESTO []GERD [] OTH: PRIVATE PAY: [] NO []YES DATE OF INITIAL BENEFITS VERIFICATION: TRANSFER FU: [] YES [] NO PRIMARY INSURANCE: Pay[place] / Plan[place] / Product Type: Medicaid / BENEFIT ON PLAN: [] NO [] YES BENEFIT MAX: [] NO [] YES -- BENEFIT MAX: $ EMPLOYER: DIET AND EXERCISE (DE) REQUIREMENT PRIMARY [] NONE []3M [] 6M []9M [] Medicare 4 Months [] SPR (3M) []OTHER: SECONDARY INSURANCE: BENEFIT ON PLAN: [] NO [] YES BENEFIT MAX: [] NO [] YES -- BENEFIT MAX: $ AUTH REQUIRED FROM SECONDARY [] NO [] YES DIET AND EXERCISE REQUIREMENT SECONDARY [] NONE []3M [] 6M [] Medicare 4 months [] SPR (3M) []OTHER: ___ [x] Discussed with patient: Financial cost overview (document signed and pt given copy at new pt consult visit with surgeon), Initial appointments: Bariatric Nutrition Assessment (BNA) & Diet and Exercise (DE) Patient to look for yellow envelope in mail. This yellow envelope will contain orders for labs, testing and required clearances. Pt encouraged to complete early in program to prevent delays. Encourage blood work to be draw by 1st DE appointment. [x] Reviewed OOP cost, including: [] Optifast cost of approximately $130-140/week x weeks immediately prior to surgery - used to induce rapid weight loss which results in decrease in size of liver and therefore facilitates laparoscopically surgery approach. [x] Overview of inpatient admission benefits - estimated inpatient co-pays, deductibles and/or co-insurance - Estimated OOP costs form reviewed with patient, and copy given to patient at new pt visit. [x] Reviewed next steps with patient: 1) Scheduled at new pt surgeon visit: Mental Health Professional (RD) for a Nutrition Assessment (BNA) and Pre-operative Diet and Exercise (DE)appointment #1. [x] Patient reminded to arrive 15 minutes early for check in. Late arrivals may need to be rescheduled. 2) Schedule: Diet and Exercise Apt #2 only scheduled after initial BNA and DE completed, 3) Behavioral Health apt scheduled after DE started. Reviewed rational and goal of Behavioral Health appointments. 4) [x] Reinforced need to cancel any WMI appointments 48 hours in advance. Cautioned NS/Same day cancellations may result in delay in program or program completion hold. Noted: DE series needs to be a monthly series or insurance company may require repeat of the entire series. 5) [x] Smoker/tobacco products including vaping: reviewed need for cessation before surgery clearance and life long abstinence after surgery for best outcomes. Patient navigation to surgery: [x] Explained to patient that average time from initial consult to date of surgery can be 6-8 months. - Process can take longer if there are cancelled appointments, delays in testing and/or additional clearances that needs to be completed. - Reviewed importance of patient active engagement in making and keeping appointments to keep the process moving. - Reinforced need to cancel appointments at least 48 hours in advance. Reviewed that instances of No Shows and Same Day Appointment Cancellations may result in program/surgery delay or hold. [x] Patient advised of importance of having voicemail and MyChart for office communications and lab/testing results before and after surgery. documented in this [facility]10-31-2023 NoteAddended by: MINH LUU on: 07/23/2023 09:57 AM Modules accepted: [facility]10-31-2023 Note* Addendum Note - JONA Quiroz - 07/23/2023 9:57 AM EDTAddended by: MINH LUU on: 07/23/2023 09:57 AM Modules accepted: Orders [id number] Note* Addendum Note - JONA Quiroz - 07/23/2023 9:57 AM EDTAddended by: MINH LUU on: 07/23/2023 09:57 AM Modules accepted: Orders [id number] Note* Addendum Note - JONA Quiroz - 07/23/2023 9:57 AM EDTAddended by: MINH LUU on: 07/23/2023 09:57 AM Modules accepted: Orders [place] [id number] Note* Addendum Note - JONA Quiroz - 07/23/2023 9:57 AM EDTAddended by: MINH LUU on: 07/23/2023 09:57 AM Modules accepted: Orders [facility] [id number] Telephone encounter Note* Telephone Encounter - JONA Quiroz - 07/23/2023 9:53 AM EDT Orders added. EGD documentation encounter created. Checklist completed and provided with orders with clinical team for processing. BARIATRIC AND METABOLIC SURGERY [facility] PATIENT SUMMARY Katarzyna Alcantar 48 y.o. female with Body mass index is 47.1 kg/m . Planned Procedures: Laparoscopic Sleeve Gastrectomy DM[] HTN[] MODESTO[] GERD[x] HL[] OA[] TOB[x] Date of Surgery: TBD ARABELLA VELOZ INITIAL PRE-OP TESTING ORDERS/ RESULTS Labwork [x] CMP, TSH, Fasting Lipid Profile, Mg, Zinc, Vit B1 (whole blood), Vit B12, 25-OH Vit D, Fe, Ferritin, Folate, Hgb A1c EGD [x] Dx: [x] GERD [] Dyspepsia [] Other [] Not ordered Pathology [x] H. pylori [] Negative [] Positive [] Stool Antigen UGI [x] US Abdomen [] [x] S/p lisa [] Not ordered MODESTO eval [x] [] On CPAP / Obtain settings Toxicology [x] [x] Urine drug screen/ETOH [x] Nicotine Additional [] INITIAL CONSULTATIONS ORDERED CLEARANCE / MANAGEMENT Psychology [x] Dietitian [x] Cardiology [x] Pulmonary [x] Others [] []Heme/Onc []Pain mgmt []Other: PSD [x] Physician supervised diet: []None []3 mos [x]6 mos Preop diet [x] Preop low calorie diet: []1 wk [x]2 wks [] Other: FINAL PRE-OP TESTING ORDERS RESULTS Labwork [x] [x] CBC [x]BMP [x]Serum Nicotine / Cotinine EKG [x] CXR [] POST-OP MEDICATIONS Ulcer Ppx [] Omeprazole 20 mg PO []QD Gallstone Ppx [] Ursodiol 300 mg []BID DVT Ppx [] DVT prophylaxis per final preop visit estimated risk Estimated calculated risk: % Schedule final pre-operative office visit with surgeon, pre-operative education class, and pre-operative exercise class prior to date of surgery She has a daily tobacco user and as a result we will proceed with sleeve gastrectomy [facility] [id number] History of Present illness Narrative* JONA Quiroz - 07/23/2023 9:53 AM EDT ENDOSCOPY ORDERS To be scheduled with: Dr. Alcantar Patient is: Pre-op/Pre-Bariatric Surgery CPT code: EGD with biopsy- CPT 17300 Diagnosis: GERD- K21.9 If pre-op, Diet & Exercise Requirements are, and started/scheduled on 09/04/23: 6 months Home O2: No Known Difficult Intubation: No * Rl Moon - 07/23/2023 9:53 AM EDT EGD W BIOPSY scheduled Date: 08/13 Time: 11:15 Place: [address] [place] [address] Patient notified via phone and MAIL * Kaley Parra - 07/23/2023 9:53 AM EDT printed documented in this [facility]10-31-2023 History of Present illness Narrative* JONA Quiroz - 07/23/2023 9:53 AM EDT ENDOSCOPY ORDERS To be scheduled with: Dr. Alcantar Patient is: Pre-op/Pre-Bariatric Surgery CPT code: EGD with biopsy- CPT 19365 Diagnosis: GERD- K21.9 If pre-op, Diet & Exercise Requirements are, and started/scheduled on 09/04/23: 6 months Home O2: No Known Difficult Intubation: No * Rl Moon - 07/23/2023 9:53 AM EDT EGD W BIOPSY scheduled Date: 08/13 Time: 11:15 Place: [address] Patient notified via phone and MAIL * Kaley Parra - 07/23/2023 9:53 AM EDT printed * Ayanna Anderson RN - 07/23/2023 9:53 AM EDT Images from the original note were not included. Geoff Alcantar MD P [facility] Med [address] Clinical [employer] Att[employer] No show for EGD - please call to r/s - thanks! documented in this [facility]10-31-2023 History of Present illness Narrative* JONA Quiroz - 07/23/2023 9:53 AM EDT ENDOSCOPY ORDERS To be scheduled with: Dr. Alcantar Patient is: Pre-op/Pre-Bariatric Surgery CPT code: EGD with biopsy- CPT 98585 Diagnosis: GERD- K21.9 If pre-op, Diet & Exercise Requirements are, and started/scheduled on 09/04/23: 6 months Home O2: No Known Difficult Intubation: No * Rl Moon - 07/23/2023 9:53 AM EDT EGD W BIOPSY scheduled Date: 08/13 Time: 11:15 Place: [address] [facility] Patient notified via phone and MAIL * Kaley Parra - 07/23/2023 9:53 AM EDT printed * Ayanna Anderson RN - 07/23/2023 9:53 AM EDT Images from the original note were not included. Geoff Alcantar MD P [facility] Med [address] Clinical Auto Camp Attendant No show for EGD - please call to r/s - thanks! * Rl Moon - 07/23/2023 9:53 AM EDT LVM asking pt to call back to schedule EGD documented in this [facility]10-31-2023 History of Present illness Narrative* JONA Quiroz - 07/23/2023 9:53 AM EDT ENDOSCOPY ORDERS To be scheduled with: Dr. Alcantar Patient is: Pre-op/Pre-Bariatric Surgery CPT code: EGD with biopsy- CPT 02102 Diagnosis: GERD- K21.9 If pre-op, Diet & Exercise Requirements are, and started/scheduled on 09/04/23: 6 months Home O2: No Known Difficult Intubation: No * Rl Moon - 07/23/2023 9:53 AM EDT EGD W BIOPSY scheduled Date: 08/13 Time: 11:15 Place: [address] [place] [address] Patient notified via phone and MAIL * Kaley Parra - 07/23/2023 9:53 AM EDT printed * Ayanna Anderson RN - 07/23/2023 9:53 AM EDT Images from the original note were not included. [facility] Clinical Auto Camp Attendant No show for EGD - please call to r/s - thanks! * Rl Moon - 07/23/2023 9:53 AM EDT LVM asking pt to call back to schedule EGD * Rl Moon - 07/23/2023 9:53 AM EDT LVM #2 documented in this [facility]10-31-2023 History of Present illness Narrative* JONA Quiroz - 07/23/2023 9:53 AM EDT ENDOSCOPY ORDERS To be scheduled with: Dr. Alcantar Patient is: Pre-op/Pre-Bariatric Surgery CPT code: EGD with biopsy- CPT 60364 Diagnosis: GERD- K21.9 If pre-op, Diet & Exercise Requirements are, and started/scheduled on 09/04/23: 6 months Home O2: No Known Difficult Intubation: No * Rl Moon - 07/23/2023 9:53 AM EDT EGD W BIOPSY scheduled Date: 08/13 Time: 11:15 Place: [address] [place] [address] Patient notified via phone and MAIL * Kaley Parra - 07/23/2023 9:53 AM EDT printed * Ayanna Anderson RN - 07/23/2023 9:53 AM EDT Images from the original note were not included. [facility] Clinical Auto Camp Attendant No show for EGD - please call to r/s - thanks! * Rl Moon - 07/23/2023 9:53 AM EDT LVM asking pt to call back to schedule EGD * Rl Moon - 07/23/2023 9:53 AM EDT LVM #2 * Rl Moon - 07/23/2023 9:53 AM EDT LVM #3 sending back to [facility] documented in this [facility]10-31-2023 History of Present illness Narrative* JONA Quiroz - 07/23/2023 9:53 AM EDT ENDOSCOPY ORDERS To be scheduled with: Dr. Alcantar Patient is: Pre-op/Pre-Bariatric Surgery CPT code: EGD with biopsy- CPT 54803 Diagnosis: GERD- K21.9 If pre-op, Diet & Exercise Requirements are, and started/scheduled on 09/04/23: 6 months Home O2: No Known Difficult Intubation: No * Rl Moon - 07/23/2023 9:53 AM EDT EGD W BIOPSY scheduled Date: 08/13 Time: 11:15 Place: [address] [place] [address] Patient notified via phone and MAIL * Kaley Parra - 07/23/2023 9:53 AM EDT printed * Ayanna Anderson RN - 07/23/2023 9:53 AM EDT Images from the original note were not included. [facility] Clinical Auto Camp Attendant No show for EGD - please call to r/s - thanks! * Rl Moon - 07/23/2023 9:53 AM EDT LVM asking pt to call back to schedule EGD * Rl Moon - 07/23/2023 9:53 AM EDT LVM #2 * Rl Moon - 07/23/2023 9:53 AM EDT LVM #3 sending back to [facility] * Stephenie Rendon - 07/23/2023 9:53 AM EDT 09/17/23 Printed. NF documented in this [facility]10-26-2023 NoteInitial New [facility] surgical patient Navigation & Financial Counseling Discussion Patient Communication: In office SURGEON: [x] JZ [] AD [] MP [] TB [] LM PROCEDURE: [] LRYGB [] LSG [] LÓPEZ-S [] LÓPEZ [] UNDECIDED [] REV: SPECIFY: Confirmed pt wants to continue with surgical program/plan [x] YES [] NO (complete program withdrawal note/process) CO-MORBIDS: [] NONE [] DM []HTN [] MODESTO []GERD [] OTH: PRIVATE PAY: [] NO []YES DATE OF INITIAL BENEFITS VERIFICATION: TRANSFER FU: [] YES [] NO PRIMARY INSURANCE: [place] / Plan[place] / Product Type: Medicaid / BENEFIT ON PLAN: [] NO [] YES BENEFIT MAX: [] NO [] YES -- BENEFIT MAX: $ EMPLOYER: DIET AND EXERCISE (DE) REQUIREMENT PRIMARY [] NONE []3M [] 6M []9M [] Medicare 4 Months [] SPR (3M) []OTHER: SECONDARY INSURANCE: BENEFIT ON PLAN: [] NO [] YES BENEFIT MAX: [] NO [] YES -- BENEFIT MAX: $ AUTH REQUIRED FROM SECONDARY [] NO [] YES DIET AND EXERCISE REQUIREMENT SECONDARY [] NONE []3M [] 6M [] Medicare 4 months [] SPR (3M) []OTHER: ___ [x] Discussed with patient: Financial cost overview (document signed and pt given copy at new pt consult visit with surgeon), Initial appointments: Bariatric Nutrition Assessment (BNA) & Diet and Exercise (DE) Patient to look for yellow envelope in mail. This yellow envelope will contain orders for labs, testing and required clearances. Pt encouraged to complete early in program to prevent delays. Encourage blood work to be draw by 1st DE appointment. [x] Reviewed OOP cost, including: [] Optifast cost of approximately $130-140/week x weeks immediately prior to surgery - used to induce rapid weight loss which results in decrease in size of liver and therefore facilitates laparoscopically surgery approach. [x] Overview of inpatient admission benefits - estimated inpatient co-pays, deductibles and/or co-insurance - Estimated OOP costs form reviewed with patient, and copy given to patient at new pt visit. [x] Reviewed next steps with patient: 1) Scheduled at new pt surgeon visit: Mental Health Professional (RD) for a Nutrition Assessment (BNA) and Pre-operative Diet and Exercise (DE) appointment #1. [x] Patient reminded to arrive 15 minutes early for check in. Late arrivals may need to be rescheduled. 2) Schedule: Diet and Exercise Apt #2 only scheduled after initial BNA and DE completed, 3) Behavioral Health apt scheduled after DE started. Reviewed rational and goal of Behavioral Health appointments. 4) [x] Reinforced need to cancel any WMI appointments 48 hours in advance. Cautioned NS/Same day cancellations may result in delay in program or program completion hold. Noted: DE series needs to be a monthly series or insurance company may require repeat of the entire series. 5) [x] Smoker/tobacco products including vaping: reviewed need for cessation before surgery clearance and life long abstinence after surgery for best outcomes. Patient navigation to surgery: [x] Explained to patient that average time from initial consult to date of surgery can be 6-8 months. - Process can take longer if there are cancelled appointments, delays in testing and/or additional clearances that needs to be completed. - Reviewed importance of patient active engagement in making and keeping appointments to keep the process moving. - Reinforced need to cancel appointments at least 48 hours in advance. Reviewed that instances of No Shows and Same Day Appointment Cancellations may result in program/surgery delay or hold. [x] Patient advised of importance of having voicemail and MyChart for office communications and lab/testing results before and after surgery.[facility]10-[facility] Telephone encounter Note* Telephone Encounter - Valencia Jimenez - 07/18/2023 2:31 PM EDT Initial New [facility] surgical patient Navigation & Financial Counseling Discussion Patient Communication: In office SURGEON: [x] JZ [] AD [] MP [] TB [] LM PROCEDURE: [] LRYGB [] LSG [] LÓPEZ-S [] LÓPEZ [] UNDECIDED [] REV: SPECIFY: Confirmed pt wants to continue with surgical program/plan [x] YES [] NO (complete program withdrawal note/process) CO-MORBIDS: [] NONE [] DM []HTN [] MODESTO []GERD [] OTH: PRIVATE PAY: [] NO []YES DATE OF INITIAL BENEFITS VERIFICATION: TRANSFER FU: [] YES [] NO PRIMARY INSURANCE: [place] / [place] / Product Type: Medicaid / BENEFIT ON PLAN: [] NO [] YES BENEFIT MAX: [] NO [] YES -- BENEFIT MAX: $ EMPLOYER: DIET AND EXERCISE (DE) REQUIREMENT PRIMARY [] NONE []3M [] 6M []9M [] Medicare 4 Months [] SPR (3M) []OTHER: SECONDARY INSURANCE: BENEFIT ON PLAN: [] NO [] YES BENEFIT MAX: [] NO [] YES -- BENEFIT MAX: $ AUTH REQUIRED FROM SECONDARY [] NO [] YES DIET AND EXERCISE REQUIREMENT SECONDARY [] NONE []3M [] 6M [] Medicare 4 months [] SPR (3M) []OTHER: ___ [x] Discussed with patient: Financial cost overview (document signed and pt given copy at new pt consult visit with surgeon), Initial appointments: Bariatric Nutrition Assessment (BNA) & Diet and Exercise (DE) Patient to look for yellow envelope in mail. This yellow envelope will contain orders for labs, testing and required clearances. Pt encouraged to complete early in program to prevent delays. Encourage blood work to be draw by 1st DE appointment. [x] Reviewed OOP cost, including: [] Optifast cost of approximately $130-140/week x weeks immediately prior to surgery - used to induce rapid weight loss which results in decrease in size of liver and therefore facilitates laparoscopically surgery approach. [x] Overview of inpatient admission benefits - estimated inpatient co-pays, deductibles and/or co-insurance - Estimated OOP costs form reviewed with patient, and copy given to patient at new pt visit. [x] Reviewed next steps with patient: 1) Scheduled at new pt surgeon visit: Mental Health Professional (RD) for a Nutrition Assessment (BNA) and Pre-operative Diet and Exercise (DE)appointment #1. [x] Patient reminded to arrive 15 minutes early for check in. Late arrivals may need to be rescheduled. 2) Schedule: Diet and Exercise Apt #2 only scheduled after initial BNA and DE completed, 3) Behavioral Health apt scheduled after DE started. Reviewed rational and goal of Behavioral Health appointments. 4) [x] Reinforced need to cancel any WMI appointments 48 hours in advance. Cautioned NS/Same day cancellations may result in delay in program or program completion hold. Noted: DE series needs to be a monthly series or insurance company may require repeat of the entire series. 5) [x] Smoker/tobacco products including vaping: reviewed need for cessation before surgery clearance and life long abstinence after surgery for best outcomes. Patient navigation to surgery: [x] Explained to patient that average time from initial consult to date of surgery can be 6-8 months. - Process can take longer if there are cancelled appointments, delays in testing and/or additional clearances that needs to be completed. - Reviewed importance of patient active engagement in making and keeping appointments to keep the process moving. - Reinforced need to cancel appointments at least 48 hours in advance. Reviewed that instances of No Shows and Same Day Appointment Cancellations may result in program/surgery delay or hold. [x] Patient advised of importance of having voicemail and MyChart for office communications and lab/testing results before and after surgery. [id number] History of Present illness Narrative* Geoff Alcantar MD - 07/18/2023 1:30 PM EDT Images from the original note were not included. [facility] SURGICAL PROGRAM INITIAL EVALUATION Patient: Katarzyna Vargas Date of : 1975 Service Date: 07/18/23 Patient History: The patient is a pleasant 48 y.o. year old female with morbid obesity, who stands Height: 5' 8 (172.7 cm) (per patient) tall with a weight of Weight: (!) 309 lb 12.8 oz (141 kg) , resulting in a BMIof Body mass index is 47.1 kg/m .. She is interested in discussing weight loss surgery. The patientsuffers from multiple co-morbidities as a result of morbid obesity, including: Office notes reviewed: Morenita - 06/18/23 PMHx: Past Medical History: Diagnosis Date Anxiety Arthritis Arthritis Asthma Back pain Depression Hepatitis Joint pain Morbid obesity, unspecified obesity type (HCC) 07/12/2023 Paralytic syndrome (CMS/HCC) (HCC) Co-Morbidity Assessment Co-Morbidity Initial Evaluation Today s Visit Type 2 DM N HTN N MODESTO N GERD Y Elevated CHO/Lipids N Depression Y The patient denies a history of myocardia infarction, deep vein thrombosis, pulmonary embolism, renal failure, hepatic failure, stroke, and seizure. 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 PSHx: Past Surgical History: Procedure Laterality Date SECTION, LOW TRANSVERSE 2001 pfannenstiel HYSTERECTOMY [facility] - [place] KNEE ARTHROPLASTY 2006 [facility] LAP,CHOLECYSTECTOMY (HISTORICAL) 2003 SPINE SURGERY 01/19/2021 Social History: This patient is unaccompanied for the evaluation today, She does smoke, and does not drink alcohol. ROS: General: negative for - chills, fatigue, fever or malaise Ophthalmic: negative for - blurry vision, double vision or dry eyes ENT: negative for - headaches, hearing change, nasal congestion, sinus pain or sore throat Endocrine: negative for - hot flashes, polydipsia/polyuria or skin changes Respiratory: negative for - cough, shortness of breath or wheezing Cardiovascular: negative for - chest pain, dyspnea on exertion, irregular heartbeat, murmur, rapid heart rate or shortness of breath Gastrointestinal: negative for - change in bowel habits, hemoptysis, hematemesis, hematochezia, dysphagia, nausea, vomiting, diarrhea, constipation, weight loss Genito-Urinary: negative for - dysuria, hematuria, incontinence or nocturia Musculoskeletal: positive for - joint pain, joint stiffness, joint swelling, muscle pain or muscular weakness Neurological: negative for - confusion, dizziness, headaches or numbness/tingling Physical Examination: BP 90/60 Pulse 73 Temp 36.5 C (97.7 F) Resp 16 Ht 5' 8 (1.727 m) Comment: per patient Wt(!) 309 lb 12.8 oz (141 kg) BMI 47.10 kg/m General: This patient is awake, alert, and oriented, and is in no apparent distress. Respiratory: Non-labored breathing Abdomen: Obese, soft, non-tender, non-distended, without masses. Incisions consistent with previoussurgeries. Prior peg site, scars from lap lisa and pfannenstiel from hysterectomy and -suprapubic catheter in place. Head and Neck: Obese, normocephalic and atraumatic. Soft and supple. Healed tracheostomy site. Extremities: No cyanosis, clubbing, bilateral LE edema/ No calf tenderness/is in wheelchair, unableto stand Neurological: In wheelchair, LE weakness and spasticity - unable to walk - only bear weight with walker. Skin: No rashes or lesions noted. Rectal: Not Done Hernia: no hernias found on exam Assessment: The patient has failed multiple attempts at non-surgical weight loss, and is now seeking surgical intervention to promote permanent and consistent weight loss. She has chosen Laparoscopic Sleeve Gastrectomy. She is well educated regarding it, as she has recently viewed our weight loss surgery informational seminar . In anticipation of weight reductive surgery now or in the future, we spent a great deal of time discussing the risks and benefits of, including but not limited to injury to intra-abdominal organs, breakdown of the gastric staple line, the need for re-operative therapy, prolonged hospitalization, mechanical ventilation, and . We discussed the possibility of bleeding, the need for blood transfusions, blood clots, hospital-acquired and intra-abdominal infection, anastomotic stricture, and worsening GERD. And we discussed the need for post-operative visit compliance, behavior modifications and diet changes, protein and vitamin supplementation, as well as routine scheduled and dedicated exercise. We discussed the potential weight loss benefit of approximately 60-70% of her excess body weight at 12-18 months post-op (LRYGB) and 50% of her excess body weight loss at 12-18 months after a LSG, as well as the possibility of insufficient weight loss or weight gain after 2 years post-operative time. Upon completion of all required pre-operative testing we will submit for insurance pre-authorization. All female patients of childbearing age were advised to refrain from becoming for 12-18 months after weight loss surgery. I advised them to discuss with their physician/riveting machine operator automatic regarding contraception to prevent during this period of time after surgery. In addition, all patients were counseled on compliance with prescribed vitamin supplementation, office visit follow-up and compliance with program standards. Plan: I have recommended proceeding with the evaluation, workup and telecom sales consultant preoperative consultationsand testing for the primary procedure as outlined below: BARIATRIC AND METABOLIC SURGERY [facility] PATIENT SUMMARY Katarzyna Alcantar 48 y.o. female with Body mass index is 47.1 kg/m . Planned Procedures: Laparoscopic Sleeve Gastrectomy DM[] HTN[] MODESTO[] GERD[x] HL[] OA[] TOB[x] Date of Surgery: NATAN VELOZ INITIAL PRE-OP TESTING ORDERS/ RESULTS Labwork [x] CMP, TSH, Fasting Lipid Profile, Mg, Zinc, Vit B1 (whole blood), Vit B12, 25-OH Vit D, Fe, Ferritin, Folate, Hgb A1c EGD [x] Dx: [x] GERD [] Dyspepsia [] Other [] Not ordered Pathology [x] H. pylori [] Negative [] Positive [] Stool Antigen UGI [x] US Abdomen [] [x] S/p lisa [] Not ordered MODESTO eval [x] [] On CPAP / Obtain settings Toxicology [x] [x] Urine drug screen/ETOH [x] Nicotine Additional [] INITIAL CONSULTATIONS ORDERED CLEARANCE / MANAGEMENT Psychology [x] Dietitian [x] Cardiology [x] Pulmonary [x] Others [] []Heme/Onc []Pain mgmt []Other: PSD [x] Physician supervised diet: []None []3 mos [x]6 mos Preop diet [x] Preop low calorie diet: []1 wk [x]2 wks [] Other: FINAL PRE-OP TESTING ORDERS RESULTS Labwork [x] [x] CBC [x]BMP [x]Serum Nicotine / Cotinine EKG [x] CXR [] POST-OP MEDICATIONS Ulcer Ppx [] Omeprazole 20 mg PO []QD Gallstone Ppx [] Ursodiol 300 mg []BID DVT Ppx [] DVT prophylaxis per final preop visit estimated risk Estimated calculated risk: % Schedule final pre-operative office visit with surgeon, pre-operative education class, and pre-operative exercise class prior to date of surgery She has a daily tobacco user and as a result we will proceed with sleeve gastrectomy I met with her today to discuss risks and benefits of laparoscopic weight loss surgery, the risks and benefits are outlined as above and visual aids were used to describe the procedure. I personally performed the evaluation and management of Katarzyna Jo Vargas in the development of a treatment plan for this patient. I personally interviewed the patient and performed an individual physical examination. In addition, I discussed the patient's condition and treatment options with them. Ihave also reviewed and agree with the past medical, family and social history unless otherwise noted. All of the patient's questions were answered. I discussed/counseled the patient regarding the risks and benefits of surgery as well as the preoperative and postoperative care plan for this patient. The patient was seen and examined independentlyand relevant data reviewed by myself. A full chart review was performed. Due to the complexity of the patients condition as well as having at least one medical condition as listed above in medical history that is progressing despite medical management, this patient is considered high medical decision making and surgical intervention is necessary to help decrease the risk of continued chronic illness. The patient was seen and examined independently and relevant data reviewed by myself. A full chart review was performed. Patient Care Team: Darrel Veloz as PCP - General Geoff Alcantar MD as Surgeon (General Surgery) * Danielle Chambers LPN - 07/18/2023 1:30 PM EDT [facility] Rooming Note - INITIAL CONSULTATION Patient: Katarzyna Vargas Date of : 1975 Service Date: 07/18/2023 Patient is here today to discuss the possibility of weight loss surgery. This patient is alone for the evaluation today she is interested in discussing weight loss surgery. Physician Supervised D/E: 6 Weight Metrics: Vitals BP: 90/60 Heart Rate: 73 Resp: 16 Temp: 36.5 C (97.7 F) Baseline Measures Initial Height: 5' 8 (172.7 cm) Initial Weight: 309 lb 12.8 oz (141 kg) Initial BMI: 47.2 Initial EBW: 169 lb 12.8 oz (77 kg) Initial Waist Cricumference: 62 Initial Neck Circumference: 17.75 Falls Risk Assessment Patient does nottake medications which affect BP or mental status Patient does not have newly prescribed or changed dosage of medications within past 30 days which affect BP or mental status Patient has not fallen in the past 2 months Patient does demonstrate unsteady gait Patient uses the following ambulatory assistive devices: wheelchair, spinal cord injury Patient is moderate risk for falls. If high or moderate risk, patient instructed not to ambulate independently in the Center, and cord for call light placed within reach of patient. History of Difficult Intubation: No Patient is not on home O2 Completed by: Danielle Chambers LPN documented in this [place] [id number] Miscellaneous Notes* Telephone Encounter - Cristina Sellers APRN.CNP - 06/21/2023 12:37 PM EDT She can continue the Diflucan. Cristina Sellers APRN.CNP * Telephone Encounter - Bambi Mcdonald LPN - 06/21/2023 10:14 AM EDT Pt's nurse called and was given below results. Nurse inquiring if pt is to finish her Diflucan? Only call if pt is to discontinue medication. Bambi Mcdonald LPN * Telephone Encounter - Sylvia Pritchett RN - 06/21/2023 8:56 AM EDT Spoke to nurse in a different unit at [facility] because patient's nurse was not available.She will have nurse call office back regarding results. Results also faxed to facility. Sylvia Pritchett RN * Telephone Encounter - Cristina Sellers APRN.CNP - 06/21/2023 8:33 AM EDT Please let the pt know that her vaginal cultures is negative for infection. She can try RepHresh for the vaginal burning. Cristina Sellers APRN.CNP [facility] Instructions* Patient Instructions* Frankie Lang DO - 05/22/2023 1:03 PM EDT You have received botulinum toxin injections today. The skin around the site of injections should be monitored for a couple of days. If redness or swelling occur, the skin should be examined by a health before and after school daycare worker to rule out infection. Please contact our office via [employer] or by phone at [phone] in 2 weeks to report on the effects of the injections, or any time with any questions or concerns. Please note that your next injections should not be scheduled less than 90 days from today. If your health insurance changes before the next injections, please contact our office at [phone] as soon as possible so we can submit a new pre- authorization if needed. Please note that we may not be able to perform the injections if your insurance changes and the treatment is not pre-authorized. documented in this encounterK[facility]08-30-[facility] History of Present illness Narrative* Nely Cabezas MD - 05/22/2023 12:24 PM EDT BOTULINUM TOXIN THERAPY Patient accompanied by : self Current complaints / history since last visit: most recent botulinum toxin injections on 02/06/23. At that visit the dosage was decreased d/t concerns for weakness secondary to a fall. However, patient reports it did not change her strength and her spasticity was worse following the dosage decrease. She notes the botox does help reduce the stiffness and spasms of her legs. She reports that she has started to notice a sensation change in her BLE from midshin to feet whereher feet feel cold. She is not sure how long this has been occurring and if it has been a chronic issue. Illnesses / hospitalizations since the last visit: no Other updates: had a fractured tibia and fibula from fall mentioned at last visit and was in a castfor 6 weeks. Anticoagulation: no Medications: baclofen, zanaflex - notes they're helpful Home stretching/exercise routine: daily PT/OT: currently in PT following tib/fib fracture BT therapy effective? Yes - stiffness and spasms/cramps Duration of benefit: 12 weeks Side effects: No Spasm scale: 2=Infrequent full spasms occuring less than once per hour Pain related to the purpose of the visit: No 0 on a scale of 0 to 10 Patient Entered Data PROMIS No flowsheet data found. Spasticity NRS No flowsheet data found. Spasm Scale No flowsheet data found. Global Impression of Change No flowsheet data found. Nutritional status: appetite WNL, weight increased but not intentional, swallowing WNL Driving issues: NA does not drive Safety concerns regarding living situations and safety at home: No At risk for falling: Yes . Actual falls since last visit: frequency/number 1 fall 1 week ago, 1 injuries. Scalp laceration requiring 7 sutures Examination: Strength Right Left Shoulder abduction 5 5 Elbow flexion 5 5 Elbow extension 5 5 Wrist extension 5 4 Ug Designer strength (kg) 32 26 Hip flexion 3+ 3 Knee flexion 4 3+ Knee extension 4 3 Plantarflexion 3+ 3 Dorsiflexion 3+ 3+ Spasticity Right Left Shoulder 0 0 Elbow flexion 0 0 Elbow extension 0 0 Wrist flexion 0 0 Wrist extension 0 0 Finger flexion 0 0 Finger extension 0 0 Hip adduction 1 1 Knee extension 0. 1 Knee flexion 1 1 Plantarflexion 1+ 1+ Modified Dillon Scale 0 - No increase in tone 1 - Slight increase in tone (catch and release at end of ROM) 1+ - Slight increase in tone, manifested by a catch, followed by minimal resistance throughout remainder (less than half of ROM) 2 - Marked increase in tone through most of the ROM, but affected part(s) easily moved 3 - Considerable increase in tone; passive movement difficult 4 - Affected part(s) rigid in flexion or extension Spasms observed: RUE: no right upper extremity spasms LUE: no left upper extremity spasms RLE: no right lower extremity spasms LLE: no left lower extremity spasms Assistance required: wheelchair UNIVERSAL PROTOCOL / SAFETY CHECKLIST Procedure to be Performed: botulinum toxin injections Sign In: A Moment of CARE was completed. Personnel directly involved with the procedure wore the appropriate PPE (Personal Protective Equipment). Patient/Surrogate Stated/Verified: PATIENT VERIFIED(optional for EMERGENT procedures): Patient name, Date of , Relevant allergies, and The intended procedure Time Out Communication: Intended patient and procedure match the source documents. Consent documented and matches the intended procedure. Sign Out: SIGN OUT (optional for EMERGENT procedures): All instruments, equipment, possible retained foreign bodies accounted for. Frankie Lang DO UNIVERSAL PROTOCOL / SAFETY CHECKLIST The risks, benefits and alternatives of the procedure were explained. Written Consent Obtained: yes - 03/21/2022 Clinician(s) performing the injections: Nely Cabezas MD Atomic Fuel Assembler: Fariha Jimenez RN Brand of toxin injected: Botox. After skin preparation with alcohol, a total dose of 300 units wereinjected as follows: Muscle Limb/Side Dose Guidance Comments Hip adductor RLE 25 units EMG 1 sites Hamstring RLE 50 units EMG 2 sites EHL RLE 25 units EMG and US 1 sites Gastroc RLE 50 units EMG 2 sites Hip adductor LLE 25 units EMG 1 sites Hamstring LLE 50 units EMG 2 sites EHL LLE 25 units EMG and US 1 sites Gastro LLE 50 units EMG 2 sites Total Dose: 300 Dilution: 100 units / 1 ml LOT #: [id number] Expiration Date: Month: 12 Year: 25 The injections were well tolerated. Minimal bleeding occurred at the injection sites. 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 Botox injections have been effective and well tolerated.We discussed spasticity treatment options and patient was agreeable to continuing botox injections with increased dosage to 300 units which was the same as before her RLE fracture. We repeated botox injections today without immediate complications. We will repeat botox injections in 3 months, same muscles and total dose of 300 units. Continue daily stretching and PT. MS BT PRE AUTH Plan: 1 - Repeat injections in 3 months, 300 units. Transfers independent with slide board 2 - PT/OT - cont PT. Time spent with patient: 45 mn. Patient seen and discussed with attending, Dr. Cabezas, who agrees with plan. Please see attestation for complete plan. Frankie Lang, Physical Medicine and Rehabilitation PGY-4 Staff note: I have reviewed the resident note, and reviewed this information with the patient to confirm its accuracy. I personally repeated the relevant review of systems, and I repeated the espinal elements of thephysical examination, supervised the procedure. I agree with the diagnosis and plan, as outlined above. Nely Cabezas MD documented in this encounterK[facility]08-[facility] Discharge summary Author Souleymanejean paul Fragoso [facility] May 17, 2023 7:44am Note Date/Time May 17, 2023 6: 24am [facility] Medical Records Department [address] [place] [address] Emergency Department Summary 05/17/23 MR#: [id number] Acct: [id number] Name: KATARZYNA VARGAS Rep #:[id number] : 1975 48 From: Renato Henson MD PCP: Dr. Dawit Abreu MD Status:REG E R Location: ED ADDENDUM by Dr. Souleymane Fragoso MD on 05/17/23 at 0744 Clinical Impression(s) from Imaging Studies Brain CT 05/17/23 06:14 IMPRESSION: Mild right frontal superficial soft tissue edema. No visualized acute hemorrhage infarct or edema. Electronically Signed: Nia Gonzales MD at 7:25 EDT , Cervical Spine CT 05/17/23 06:14 IMPRESSION: Interval extensive spinal fusion and laminectomy when compared to prior study January 18, 2021. A more recent postoperative study would be helpful to establish stability.There is no apparent acute loss of height or alignment allowing for technique. Electronically Signed: Nia Gonzales MD at 7:37 EDT , Patient checked out to me for CT results, I reviewed the images and the reportsas noted above, and I agree with them. Essentially the patient has extensive cervical spine fusion, there are no gross traumatic abnormalities on the CT although there is a lot of artifact because there is a lot of hardware. Evaluating the patient, I took off her collar, she is not in severe pain right now and states it is sore everywhere, she can move her head back and forth without any limitations or focal neurologic symptoms/exacerbations. She is tender more on the right than the rest of the neck. Likely strain. I asked thepatient if she had imaging between now and the last study according to the radiologist/01/18/2021, the patient states she has no idea. Therefore at this time I am not able to obtain a more recent comparison view, but I am comfortablewith her being discharged back to the group home. Additional impression: Acute myofascial cervical strain 05/17/23 0744<Electronically signed by Souleymane Fragoso MD> Cosigner Signature (if applicable): cc: Dr. Dawit Abreu MD ~* Signed HPI History of Present Illness Chief Complaint: Head Injury Detail of Chief Complaint: Forehead laceration after rolling out of bed. Informant: patient Onset/Context/Timing Onset: Today and Hours Mechanism/Context: Blunt Injury, Fall and Incised Quality of Pain: Dull and Aching Current Severity: Mild Maximum Severity: Mild Associated Symptoms Associated Symptoms: Negative for Parasthesias, Weakness or Loss of function Length of loss of consciousness: No LOC. Narrative Narrative: 48-year-old female history of IV drug abuse. Paraplegic and unable to walk. She still can move her lower extremities and has sensation. She was asleep in bed rolled out of bed when she fell she lacerated her forehead at the hairline. She is also complaining of neck pain. No LOC. Denies being on a blood. Tetanus Immunization: Unknown Prior similar symptoms: No Recent Illness/Hospitalization: No PFSH PFSH Medical History Alcohol abuse Asthma Bipolar 1 disorder Depression Hepatitis IVDU (intravenous drug user) Muscle weakness (generalized) Opiate dependence Polysubstance (including opioids) dependence, daily use Smoker Home Medications albuterol sulfate 90 mcg/actuation aerosol inhaler (Ventolin HFA) 2 puff inhalation PRN SOB 05/17/23 [History Last Taken Unknown] amitriptyline 10 mg tablet 10 mg PO QHS 05/17/23 [History Last Taken Unknown] baclofen 20 mg tablet 60 mg PO DAILY 05/17/23 [History Last Taken Unknown] clonazepam 0.5 mg tablet (Klonopin) 0.5 mg PO QHS PRN 05/17/23 [History Last Taken Unknown] dantrolene 25 mg capsule 25 mg PO BID 05/17/23 [History Last Taken Unknown] duloxetine 30 mg capsule,delayed release 30 mg PO BID 05/17/23 [History Last Taken Unknown] famotidine 20 mg tablet 20 mg PO BID 05/17/23 [History Last Taken Unknown] fluorometholone 0.1 % eye drops,suspension 1 drp ophthalmic (eye) DAILY 05/17/23[History Last Taken Unknown] furosemide 20 mg tablet (Lasix) 20 mg PO DAILY 05/17/23 [History Last Taken Unknown] gabapentin 400 mg capsule 400 mg PO DAILY 05/17/23 [History Last Taken Unknown] gabapentin 800 mg tablet 800 mg PO QHS 05/17/23 [History Last Taken Unknown] ibuprofen 800 mg tablet 800 mg PO DAILY PRN pain 05/17/23 [History Last Taken Unknown] loratadine 10 mg tablet 10 mg PO DAILY 05/17/23 [History Last Taken Unknown] methocarbamol 500 mg tablet 1,000 mg PO TID 05/17/23 [History Last Taken Unknown] nystatin 100,000 unit/gram topical powder 1 applic topical DAILY 05/17/23 [History Last Taken Unknown] oxybutynin chloride 10 mg tablet,extended release 24 hr 10 mg PO DAILY 05/17/23 [History Last Taken Unknown] promethazine 25 mg tablet 25 mg PO Q4H PRN 05/17/23 [History Last Taken Unknown] tizanidine 4 mg tablet 8 mg PO QHS 05/17/23 [History Last Taken Unknown] Allergy/AdvReac Type Severity Reaction Status Date / Time hydrocodone bitartrate Allergy Itching Verified 05/17/23 06:09 [From Vicodin] Surgical History History of cholecystectomy Social History Smoking Status: Current every day smoker tobacco type: cigarettes ROS ROS ED ROS Narrative Denies recent illness. Review of Systems ROS Unobtainable: Denies due to encephalopathy Constitutional Constitutional ED: Denies chills or fever(s) Eyes Eyes: Denies blurry vision ENT ENT ED: Denies ear pain Cardiovascular Cardiovascular: Denies chest pain Respiratory/Chest Respiratory/Chest: Denies cough Gastrointestinal Gastrointestinal: Denies abdominal pain, nausea or vomiting Genitourinary Genitourinary ED: Denies dysuria Musculoskeletal Musculoskeletal: Denies arthralgias Integumentary Denies abscess Neurologic Neurologic: Denies headache(s) Psychiatric Psychiatric: Denies anxiety Endocrine Endocrinology: Denies cold intolerance Hematologic/Lymphatic Hematologic/Lymphatic: Denies easy bleeding Allergic/Immunologic Allergic/Immunologic ED: Denies mouth swelling EXAM Physical Exam Narrative Exam Narrative: 48-year-old female vital signs stable afebrile. H EENT exam given reactive to light. She has about 3 inch laceration to the top of her forehead and hairline. I will need suture repaired. There is mild bleeding. Small hematoma. Given reactive light. No other facial trauma. Scalp nontender. She does complain ofC-spine discomfort. There is tenderness. Trachea midline. Lungs clear to auscultation bilaterally. Chest wall nontender. Heart regular rate and rhythm no murmur. Rate about 70. No crepitance or subcu air to the chest wall. Abdomen soft nontender. Pelvic girdle intact. She has normal 5 and 5 superintendent stations strength both hands. Shoulders, elbows and wrists are nontender no deformity. She is able to do dorsi and plantarflexion of both feet. However her legs are weak. There is no deformity or tenderness to the hips, knees or ankles. Neurologically she is awake and alert. Answering questions following commands. Const Vital Signs: 05/17/23 06:04 05/17/23 06:06 Temperature 96.8 F L Temperature Source Temporal Pulse Rate 67 Respiratory Rate 16 Respiratory Effort Normal Blood Pressure 116/74 Blood Pressure Mean 88 Pulse Ox 98 Oxygen Delivery Method Room Air Positive well nourished, well developed and obese; Negative for cachectic, contractures or unkempt General Appearance ED: well developed and NAD; Negative for unkempt, cachectic or contractures Nutritional Appearance: obese; Negative for cachectic HEENT HEENT Narrative: Laceration along the hairline of the anterior scalp. Small bleeding. Small hematoma. trauma and tenderness; Negative for atraumatic Eyes PERRL and EOMs intact bilaterally Neck No full ROM Neck Narrative: C-spine tenderness. General: tenderness Chest Wall inspection of chest normal and palpation of chest normal Breast/Axilla Inspection: Negative for other Resp normal respiratory effort and clear to auscultation bilaterally Effort and Inspection: Negative for pain with movement Auscultation: Negative for rales, rhonchi or wheezes Cardio regular rhythm, S1 normal heart sound, S2 normal heart sound and no murmurs Jugular Venous Distention: Negative for other Palpation: Negative for palpable S3 Rate: regular rate Rhythm: Negative for abnormal rhythm GI normal to inspection, nondistended, normoactive bowel sounds, non-tender and non-distended Auscultation: normoactive bowel sounds Palpation: soft; Negative for tender or guarding Extremity normal to inspection; Negative for full ROM Extremity Narrative: Bilateral lower extremity weakness. Dorsi plantarflexion intact. Does have sensation. Partial paraplegia. No bony tenderness or deformity. Neuro oriented x3, moves all extremities and No no focal motor deficits Neuro Narrative: Bilateral lower extremity we did partial paraplegia. Sensorium / Orientation: alert, oriented to person, oriented to place and oriented to time Motor Exam: strength abnormal Psych mental status grossly normal and thought process normal Appearance: Negative for unkempt Attitude: No agitated Mood & Affect: Negative for depressed, anxious or tearful Skin no rashes or lesions noted, No no wounds, skin turgor normal and no jaundice Skin Narrative: Forehead laceration. PROC Procedures Lacerations Forehead laceration repair:: Length: 3 in Depth: Sub Q Shape: Linear Laceration repair: Lidocaine with epi and Local Number of Sutures/[place]: 5 Suture Information: Ethilon, Simple and 5-0 Comment: Forehead laceration at the hairline. Linear. Approximately 3 inches. Small bleeding. Small hematoma. Local anesthetized with lidocaine with epinephrine. Cleaned with Shur-Clens. Washed and irrigated with saline. Explored. Closed using 5 simple interrupted 5-0 Ethilon sutures. Proper hemostasis wound closure obtained. Patient tolerated procedure well. MDM MDM MDM Narrative Medical decision making narrative: 48-year-old female resident of an area [facility] facility due to paraplegia. Fell to bed as a laceration of her forehead when she will need repaired. She is also complaining neck pain so I will obtain a CT of her brain and neck. Tetanus will be updated. Wound to be locally anesthetized and closed. Patient was placed in a c-collar due to mechanism of the fall and complaining of neck pain. Prior to going to CAT scan. Discharge Plan Triage Chief Complaint: Head Injury ED Provider: Renato Henson Dx/Rx/DC Orders Clinical Impression: History of paraplegia, Closed head injury, Laceration of forehead, Fall Instructions: ED Head Injury (Adult), ED Laceration: All Closures Prescriptions: No Action albuterol sulfate [Ventolin HFA] 90 mcg/actuation HFA aerosol inhaler 2 puff INHALATION PRN (Reason: SOB) amitriptyline 10 mg tablet 10 mg PO QHS baclofen 20 mg tablet 60 mg PO DAILY dantrolene 25 mg capsule 25 mg PO BID duloxetine 30 mg capsule,delayed release(DR/EC) 30 mg PO BID famotidine 20 mg tablet 20 mg PO BID fluorometholone 0.1 % drops,suspension 1 drp ophthalmic (eye) DAILY gabapentin 400 mg capsule 400 mg PO DAILY gabapentin 800 mg tablet 800 mg PO QHS ibuprofen 800 mg tablet 800 mg PO DAILY PRN (Reason: pain) clonazepam [Klonopin] 0.5 mg tablet 0.5 mg PO QHS PRN furosemide [Lasix] 20 mg tablet 20 mg PO DAILY loratadine 10 mg tablet 10 mg PO DAILY methocarbamol 500 mg tablet 1,000 mg PO TID nystatin 100,000 unit/gram powder 1 applic TOPICAL DAILY oxybutynin chloride 10 mg tablet extended release 24hr 10 mg PO DAILY promethazine 25 mg tablet 25 mg PO Q4H PRN tizanidine 4 mg tablet 8 mg PO QHS Primary Care Provider: Dawit Abreu Referrals: Dawit Abreu MD [Primary Care Provider] - 7 Days for suture removal Activity Restrictions/Additional Instructions: Clean wound daily with soap and water or peroxide and water. Stitches out in 7 days. Watch for any signs of infection is seen needs evaluated. Tetanus was updated. Head injury instructions. Tylenol for pain. Ice to the forehead 3 times a day for 30 minutes each time for the next 2 days. Disposition Disposition: Home, Self Care What to do if you have Problems For any increased pain, shortness of breath, bleeding, nausea or vomiting, chestpain, or any unexpected problems, contact your Primary Care Provider. Call [facility] ([phone]) or report to the closest Emergency Room. Call 911 if necessary. 05/17/23 0709 <Electronically signed by Renato Henson MD> Cosigner Signature (if applicable): CC: Dr. Dawit Abreu MD ~ Signed [facility] Work Phone: [phone] 719-235502-15-2023 History of Present illness Narrative* Nely Cabezas MD - 11/07/2022 10:05 AM EST BOTULINUM TOXIN THERAPY Patient accompanied by : caregiver from facility Last botulinum toxin injections: 08/09/2022 Current complaints / history since last visit: Changed facility, doing more therapy, able to do standing activities, less spasm. Illnesses / hospitalizations since the last visit: no Other updates: no Anticoagulation: no Home stretching/exercise routine: daily PT/OT: yes BT therapy effective? Yes - stiffness, spasms/cramps and pain/discomfort Duration of benefit: 12 weeks Side effects: No Pain related to the purpose of the visit: yes in the LEs Patient Entered Data PROMIS No flowsheet data found. Spasticity NRS No flowsheet data found. Spasm Scale No flowsheet data found. Global Impression of Change No flowsheet data found. Nutritional status: appetite good, weight stable, swallowing without difficulty Driving issues: NA not driving Safety concerns regarding living situations and safety at home: No lives in facility At risk for falling: Yes . Actual falls since last visit: frequency/number 0, no injuries. Examination: Strength Right Left Shoulder abduction 5 5 Elbow flexion 5 5 Elbow extension 5 5 Wrist extension 5 4 Ug Designer strength (kg) 32 30 Hip flexion 4 3+ Knee flexion 4 3+ Knee extension 4 3 Plantarflexion 3+ 3 Dorsiflexion 3 3+ Spasticity Right Left Shoulder 0 0 Elbow flexion 0 0 Elbow extension 0 0 Wrist flexion 0 0 Wrist extension 0 0 Finger flexion 0 0 Finger extension 0 0 Hip adduction 1 1 Knee extension 1 1 Knee flexion 1 1 Plantarflexion 1 1 Modified Dillon Scale 0 - No increase in tone 1 - Slight increase in tone (catch and release at end of ROM) 1+ - Slight increase in tone, manifested by a catch, followed by minimal resistance throughout remainder (less than half of ROM) 2 - Marked increase in tone through most of the ROM, but affected part(s) easily moved 3 - Considerable increase in tone; passive movement difficult 4 - Affected part(s) rigid in flexion or extension UNIVERSAL PROTOCOL / SAFETY CHECKLIST Procedure to be Performed: botulinum toxin therapy Sign In: A Moment of CARE was completed. Personnel directly involved with the procedure wore the appropriate PPE (Personal Protective Equipment). Patient/Surrogate Stated/Verified: PATIENT VERIFIED(optional for EMERGENT procedures): Patient name, Date of , Relevant allergies and The intended procedure Time Out Communication: Intended patient and procedure match the source documents. Consent documented and matches the intended procedure. Correct side/site marked and visible. Medications required for procedure verified. Sign Out: SIGN OUT (optional for EMERGENT procedures): Post-procedure follow-up management communicated and Plan of Care Visit completed when applicable. Nely Cabezas MD UNIVERSAL PROTOCOL / SAFETY CHECKLIST The risks, benefits and alternatives of the procedure were explained. Written Consent Obtained: yes - 03/21/2022 Clinician(s) performing the injections: Nely Cabezas MD Atomic Fuel Assembler: Fariha Jimenez RN Brand of toxin injected: Botox. After skin preparation with alcohol, a total dose of 300 units wereinjected as follows: Muscle Limb/Side Dose Guidance Comments Hip adductor RLE 25 units EMG 1 sites Hamstring RLE 50 units EMG 2 sites EHL RLE 25 units EMG 1 sites Gastroc RLE 50 units EMG 2 sites Hip adductor LLE 25 units EMG 1 sites Hamstring LLE 50 units EMG 2 sites EHL LLE 25 units EMG 1 sites Gastro LLE 50 units EMG 2 sites Total Dose: 300 Dilution: 100 units / 2 ml LOT #: [id number] Expiration Date: Month: 3 Year: 25 The injections were well tolerated. Minimal bleeding occurred at the injection sites. 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 Spastcity and weakness in the LEs, and botox treatment is effective. After discussion, we repeated botox injection as outlined above with decreased dose, no immediate complications. MS BT PRE AUTH Plan: 1 - Call for any problems 2 - Repeat injections in 3 months, 300 units. Transfers with assistance 3 - PT/OT in facility. 4 - Continue current meds, add elavil 10mg at bedtime for sleep. Time spent with patient: 45 mn. Nely Cabezas MD [facility] Tele[facility] * Telephone Encounter - Jennifer Kaur RN - 10/31/2022 1:39 PM EST Recevied call from patient's nurse Carrie. She states they have to cancel patient's appointment due to lack of transportation. They are unable to secure transportation via transport services and patient's emergency contact is unable to transfer her as well. She states they are able to change SPT at facility and have an order to do so. Patient has no needs at this time. [facility] cancelled. [id number] Miscellaneous Notes* Telephone Encounter - Jennifer Kaur RN - 10/31/2022 1:39 PM EST Recevied call from patient's nurse Carrie. She states they have to cancel patient's appointment due to lack of transportation. They are unable to secure transportation via transport services and patient's emergency contact is unable to transfer her as well. She states they are able to change SPT at facility and have an order to do so. Patient has no needs at this time. Appointment cancelled. * Telephone Encounter - Tony Islas RN - 10/02/2022 3:20 PM EST Phone call placed to facility spoke to Johnathan. Appointment scheduled with JOSE . * Telephone Encounter - Gabriela Hadley RN - 10/01/2022 1:34 PM EST Called [facility]. Sliver Cutter answered phone and transferred call to nurse Johnathan. Phone rang for 1 minute with no answer. Routing back to clinical to call again. * Telephone Encounter - Jennifer Kaur RN - 09/27/2022 9:35 AM EST Received VM from patient's nurse Johnathan at [facility] stating patient needs to move appointment sooner. She states patient has SPT but feeling abdominal pressure. Patient has no appointment scheduled in [facility]. Returned call to patient's facility. Requested to speak with patient's nurse and person answering hung up. Called twice again, and line rang for 2 minutes then disconnected each time. Will need to attempt to contact nurse again. documented in this [facility]01-10-2023 Telephone encounter Note* Telephone Encounter - Tony Islas RN - 10/02/2022 3:20 PM EST Phone call placed to facility spoke to Johnathan. Appointment scheduled with JOSE . [facility] [id number] Telephone encounter Note* Telephone Encounter - Gabriela Hadley RN - 10/01/2022 1:34 PM EST Called [facility]. Sliver Cutter answered phone and transferred call to nurse Johnathan. Phone rang for 1 minute with no answer. Routing back to clinical to call again. [facility] [id number] Telephone encounter Note* Telephone Encounter - Jennifer Kaur RN - 09/27/2022 9:35 AM EST Received VM from patient's nurse Johnathan at [facility] stating patient needs to move appointment sooner. She states patient has SPT but feeling abdominal pressure. Patient has no appointment scheduled in [facility]. Returned call to patient's facility. Requested to speak with patient's nurse and person answering hung up. Called twice again, and line rang for 2 minutes then disconnected each time. Will need to attempt to contact nurse again. [facility] [id number] History of Present illness Narrative* Nely Cabezas MD - 08/09/2022 3:55 PM EST BOTULINUM TOXIN THERAPY Patient accompanied by : caregiver from facility Last botulinum toxin injections: 03/21/2022 Current complaints / history since last visit: Took 2-3 weeks to kick in. Spasm is worse for some times, then improved. Illnesses / hospitalizations since the last visit: no Other updates: no Anticoagulation: no Home stretching/exercise routine: daily PT/OT: yes BT therapy effective? Yes - stiffness, spasms/cramps and pain/discomfort Duration of benefit: 12 weeks Side effects: No Pain related to the purpose of the visit: yes in the LEs Patient Entered Data PROMIS No flowsheet data found. Spasticity NRS No flowsheet data found. Spasm Scale No flowsheet data found. Global Impression of Change No flowsheet data found. Nutritional status: appetite good, weight stable, swallowing without difficulty Driving issues: NA not driving Safety concerns regarding living situations and safety at home: No lives in facility At risk for falling: Yes . Actual falls since last visit: frequency/number 0, no injuries. Examination: Strength Right Left Shoulder abduction 5 5 Elbow flexion 5 5 Elbow extension 5 5 Wrist extension 5 4 Ug Designer strength (kg) 30 30 Hip flexion 4 3+ Knee flexion 4 3+ Knee extension 4 3 Plantarflexion 4 3 Dorsiflexion 4 3 Spasticity Right Left Shoulder 0 0 Elbow flexion 0 0 Elbow extension 0 0 Wrist flexion 0 0 Wrist extension 0 0 Finger flexion 0 0 Finger extension 0 0 Hip adduction 2 2 Knee extension 1 1 Knee flexion 2 3 Plantarflexion 2 3 Modified Dillon Scale 0 - No increase in tone 1 - Slight increase in tone (catch and release at end of ROM) 1+ - Slight increase in tone, manifested by a catch, followed by minimal resistance throughout remainder (less than half of ROM) 2 - Marked increase in tone through most of the ROM, but affected part(s) easily moved 3 - Considerable increase in tone; passive movement difficult 4 - Affected part(s) rigid in flexion or extension UNIVERSAL PROTOCOL / SAFETY CHECKLIST Procedure to be Performed: botulinum toxin therapy Sign In: A Moment of CARE was completed. Personnel directly involved with the procedure wore the appropriate PPE (Personal Protective Equipment). Patient/Surrogate Stated/Verified: PATIENT VERIFIED(optional for EMERGENT procedures): Patient name, Date of , Relevant allergies and The intended procedure Time Out Communication: Intended patient and procedure match the source documents. Consent documented and matches the intended procedure. Correct side/site marked and visible. Medications required for procedure verified. Sign Out: SIGN OUT (optional for EMERGENT procedures): Post-procedure follow-up management communicated and Plan of Care Visit completed when applicable. Nely Cabezas MD UNIVERSAL PROTOCOL / SAFETY CHECKLIST The risks, benefits and alternatives of the procedure were explained. Written Consent Obtained: yes - 03/21/2022 Clinician(s) performing the injections: Nely Cabezas MD Atomic Fuel Assembler: Fariha Jimenez RN Brand of toxin injected: Botox. After skin preparation with alcohol, a total dose of 400 units wereinjected as follows: Muscle Limb/Side Dose Guidance Comments Hip adductor RLE 50 units EMG 1 sites Hamstring RLE 50 units EMG 2 sites EHL RLE 25 units EMG 1 sites . Hip adductor LLE 50 units EMG 1 sites Hamstring LLE 100 units EMG 3 sites EHL LLE 25 units EMG 1 sites Gastro LLE 50 units EMG 2 sites Soleus LLE 50 units EMG 2 sites Total Dose: 400 Dilution: 100 units / 2 ml LOT #: [id number] Expiration Date: Month: 2 Year: 25 The injections were well tolerated. Minimal bleeding occurred at the injection sites. 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 Severe spastcity and weakness in the LEs and botox treatment is effective. After discussion, we repeated botox injection as outlined above, no immediate complications. MS BT PRE AUTH Plan: 1 - Call in 3-4 weeks to report the outcome of the injections. 2 - Repeat injections in 3 months, 500 units, increase dose to left hamstring, add hip flexor. Transfers with assistance 3 - PT/OT in facility. 4 - Continue current meds Time spent with patient: 45 mn. Nely Cabezas MD [facility] History of Present illness Narrative* Nely Cabezas MD - 03/21/2022 9:07 AM EDT BOTULINUM TOXIN THERAPY Patient accompanied by : caregiver from facility Current complaints / history since last visit: patient presents for first botulinum toxin injections. Illnesses / hospitalizations since the last visit: no Other updates: no Anticoagulation: no Home stretching/exercise routine: daily PT/OT: yes Botox Tracking Pain related to the purpose of the visit: yes in the LEs Patient Entered Data PROMIS No flowsheet data found. Spasticity NRS No flowsheet data found. Spasm Scale No flowsheet data found. Global Impression of Change No flowsheet data found. Nutritional status: appetite good, weight stable, swallowing without difficulty Driving issues: NA not driving Safety concerns regarding living situations and safety at home: No lives in facility At risk for falling: Yes . Actual falls since last visit: frequency/number 0, no injuries. Examination: Strength Right Left Shoulder abduction 5 5 Elbow flexion 5 5 Elbow extension 5 5 Wrist extension 5 4 Ug Designer strength (kg) 29 24 Hip flexion 4 3+ Plantarflexion 3 3 Dorsiflexion 3 3 Spasticity Right Left Shoulder 0 0 Elbow flexion 0 0 Elbow extension 0 0 Wrist flexion 0 0 Wrist extension 0 0 Finger flexion 0 0 Finger extension 0 0 Hip adduction 3 3 Knee extension 2 2 Knee flexion 4 4 Plantarflexion 3 3 Modified Dillon Scale 0 - No increase in tone 1 - Slight increase in tone (catch and release at end of ROM) 1+ - Slight increase in tone, manifested by a catch, followed by minimal resistance throughout remainder (less than half of ROM) 2 - Marked increase in tone through most of the ROM, but affected part(s) easily moved 3 - Considerable increase in tone; passive movement difficult 4 - Affected part(s) rigid in flexion or extension UNIVERSAL PROTOCOL / SAFETY CHECKLIST Procedure to be Performed: botulinum toxin therapy Sign In: A Moment of CARE was completed. Personnel directly involved with the procedure wore the appropriate PPE (Personal Protective Equipment). Patient/Surrogate Stated/Verified: PATIENT VERIFIED(optional for EMERGENT procedures): Patient name, Date of , Relevant allergies and The intended procedure Time Out Communication: Intended patient and procedure match the source documents. Consent documented and matches the intended procedure. Correct side/site marked and visible. Medications required for procedure verified. Sign Out: SIGN OUT (optional for EMERGENT procedures): Post-procedure follow-up management communicated and Plan of Care Visit completed when applicable. Nely Cabezas MD UNIVERSAL PROTOCOL / SAFETY CHECKLIST The risks, benefits and alternatives of the procedure were explained. Written Consent Obtained: yes - 03/21/2022 Clinician(s) performing the injections: Nely Cabezas MD Atomic Fuel Assembler: Fariha Jimenez RN Brand of toxin injected: Botox. After skin preparation with alcohol, a total dose of 400 unitswere injected as follows: Muscle Limb/Side Dose Guidance Comments Hip adductor RLE 50 units EMG 1 sites Hamstring RLE 150 units EMG 3 sites . . Hip adductor LLE 50 units EMG 1 sites Hamstring LLE 150 units EMG 3 sites Total Dose: 400 Dilution: 100 units / 2 ml LOT #: [id number] Expiration Date: Month: 9 Year: 23 The injections were well tolerated. Minimal bleeding occurred at the injection sites. 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 Severe spastcity and weakness in the LEs. After discussion, we performed botox injection as outlined above, no immediate complications. Hip flexors were not injected due to severe rash. Repeat injection in 3 months, increase dose to 600 units, add hip flexors and gastrorcnemius (as knee flexor muscle). <BTPREAUTH> Plan: 1 - Follow-up visit in 3-4 weeks to assess the outcome of the injections. 2 - Repeat injections in 3 months, 600 units. Transfers with assistance 3 - PT/OT in facility. 4 - add zanaflex 4mg at night time Time spent with patient: 45 mn. Nely Cabezas MD [facility] Miscellaneous Notes* Telephone Encounter - Sena Jimenez RN - 03/07/2022 1:35 PM EDT Images from the original note were not included. Called patient Confirmed appointment for botox injections Faxed reminder to facility * Telephone Encounter - Sena Jimenez RN - 03/07/2022 11:04 AM EDT Called patient, rang, no answer, mailbox not set up, unable to leave a message Resides at [facility] SPECIALTY CARE COORDINATION QUICK NOTE Called talked with departmental secretary at [facility] Patient identified by name and date of : Yes She confirms they arrange transportation for patient Confirmed insurance is Medicaid, [place] Agreed on 03/21 appointment at 945am with Dr Cabezas; slot put on hold, page sent to add on pool Address given to facility Will also fax appointment reminder to [phone] Patient has Medicaid, [place] No PA needed * Telephone Encounter - Sanots Figueroa - 03/07/2022 8:12 AM EDT Dorcas Call Name of caller : Katarzyna Vargas Relationship to patient: Self Return call phone number : [phone] Reason for call : Botox : Brief description of concern : Wanted to know if she was approved for b[facility] of Present illness Narrative* Deyanira Petersen APRN.GRASS CUTTER - 02/16/2022 2:30 PM EDT REFERRAL SOURCE: Traci Solano MD [facility] - Medical Office Building [address] [place] [address] FOLLOWED BY: No primary care provider on file. REASON FOR CONSULTATION: rehabilitation consult. 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 The patient was accompanied by a caregiver from her nursing facility, who waited in the lobby. Medical records were reviewed. Pt. has a PMH significant for hepatitis C, IVDU (heroin, last in 2020 per records), depression/anxiety. She also has a history of C6-T3 epidural phlegmon. Antibiotics were recommended for treatment of the phlegmon, but records indicate she did not follow-up for these to be initiated. She subsequently developed acute onset of BLE paralysis on 01/19/21. She presented to an outside hospital and MRI imaging done at the time showed progression of the epidural phlegmon, with acute cord compression. She underwent emergent surgeries to address the issues in her spine and developed quadriplegia post-op. She was admitted to [facility] in 02/2021 following acute hospital stay. Events of the above hospitalization as per rehab admission note: Patient presented to [facility] on 01/19/2021 as a transfer from an outside hospital with complaints of acute paralysis and loss of sensation in bilateral lower extremities. MRI revealed progression of the known epidural phlegmon with extension to C1 and new cord compression. CTH was negative for abscess.Blood cultures were positive for GPC. Patient was taken emergently to the OR for a C2- T2 decompression and fusion and evacuation of the phlegmon. MRI on 01/27 demonstrated progression of cervical spineabscess with cord compression and possible concern for osteomyelitis.. She went to OR on 01/28 for ACDF and abscess evacuation.Her hospital stay was significant for ileus management, tracheostomy on 02/01, and PEG on 02/04. She was treated for chronic pain, anxiety, and depression. She was discharged to [facility] on 02/09/21 for continued IV antibiotics and weaning of mechanical ventilation. Decannulate on 02/24/2021. Diet was upgraded on 02/27 to minced moist. Patient completed antibiotics on 03/10/2021. Repeat MRI on 03/11 without any abnormal fluid collection or enhancement. Patient was seen by PT/OT and recommended for acute rehabilitation. Notes indicate that, at the time of discharge, pt. was a total assist and required a mechanical lift for transfers. She was discharged from rehab to SNF in March,. Pt. states that she regained the use of her trunk and upper body as she got farther out from surgery and with OP therapies. She has regained some voluntary movement in her legs, but the limbs have had persistent, significant weakness and she has not been able to ambulate since before the acute onset of symptoms and subsequent hospitalization/surgeries in 2020. She has not had any repeat imaging/MRIs since the hospitalization last year. She reports she has to be sedated for imaging due to her inability to lay flat/still for long periods. She is also unsure of what type or how much hardware is in her spine (no one explained anything, I just had to go to surgery so I didn't ). She has developed significant spasms and muscle stiffness in the legs over the course of the last year. The spasms occur constantly and interfere with ADLs, her ability to do therapy/stretch, with sleep, and her overall QOL. The spasms occur in both hips and radiate into the legs. They are made worse by sitting in one position for too long, when transferring, or when anything touches/bumps into her legs. Her legs are generally stuck in a flexed position and it is very difficult for them to straighten. She states that her legs can be forced staright when she is laying supine, but only for a short time, then the knees lock up again. She is currently on oral baclofen 20 mg QID and gabapentin 400 mg QID, both of which she has been on since her hospitalization last year. She feels that the medications provide some relief and she denies side effects. She is also on robaxin 1000 mg TID, which has been added more recently. She does not feel this provides much relief. She has continued to reside in a SNF and has been in her current facility since rehab discharge in 03/2021. She has gained 60 lbs over the last year due to her immobility. There is PT/OT at her facility and she reports getting some therapy/stretching everyday, although stretching can be difficult because of the spasms and rigidity in the legs. The therapists are mostlyworking on upper body strength. She does have concerns that her Left hand has become deformed- her fingers tend to stay flexed and the hand feels weaker (she is Right handed as above). She reports an improvement in her trunk strength and is now able to roll over in bed with little anastacia assistance. She is dependent for transfers and requires use of a mechanical lift. She has tried a transfer board, but this is difficult to use due to spasms. She obtained a power chair at the beginning of the year and relies on this for mobility. Prior to this, she was transported around her facility in an old dialysis chair, as the manual wheelchairs didnot accommodate her body habitus. The spasms and tightness in the legs are also associated with pain. The pain is severe and negatively impacts her QOL (sleep, mood) as the spasticity does. The pain is described as sharp, severe, aching. The legs also feel heavy at times and there can be a sensation of cold in the legs and feet. She had issues with Right knee pain in the past, but underwent a Right knee replacement about 8 years ago with an improvement in symptoms. She states she was previously on opioids at the SNF, but medications were weaned and she is now offof these entirely- currently only prescribed tylenol for pain. She has a history of IVDU use and alcohol use/abuse. Records indicate she was admitted to a local hospital in [place], [place] in 10/2021 for management of respiratory arrest related to a fentanyl overdose. Hospital discharge notes indicate: HOSPITAL COURSE: Pt admitted to icu for fentanyl overdose, found unresponsive in snf, had cpr done, naloxone given, ROSC obtained. Addiction medicine was consutled for the same, pt did not have any further issues. Ptwas on dilaudid and valium taper at snf, which needs to be continued. Discharged on tapering dose of dilaudid and valium per ADM instructions. Denied any suicidal ideations. Pt supposed to see pain management as an outpt. She has been seen by Pain Management in [place] (Dr. Jimmy Solano with ) and was reportedly told they couldn't do anything for me because of the surgeries and hardware in her back. Opioid medications were not prescribed/recommended. Pt. was advised that an intrathecal pump could be an option, but the evaluation and initiation of this would need to [facility]. She was told the pump could be managed at their practice if it was placed. IT therapy was also mentioned in notes from acute rehab stay in 2020: Chronic pain/ Frequent muscle spasms - Pain management per primary care team - continue current pain regimen- of note: she is requiring a high dose of muscle relaxer and may need baclofen pump - High risk for constipation/ obstruction- monitor bowel closely - follow up pain management When asked about drug/alcohol use today, pt. admitted to marijuana and ETOH use in the past, but denied any current use. She did not mention the recent hospitalization for overdose. She does smoke cigarettes, about 0.5 ppd. She has had issues with neurogenic bladder, recurrent UTIs, and urinary incontinence since her hospitalization in 2020. She required an indwelling catheter, but had problems with UTIs and sediment inthe urine. She also reports staff had difficulty caring for the catheter/changing it/performing pericare due to the spasticity and tightness in her legs. Because of these problems, she underwent SPC placement on 11/03/21. She reports this has helped signicantly and she has had no UTIs since the procedure. She follows with urology locally at [facility] for SPC management/changes (most recent catheter change was in 11/2021). She reports interrupted sleep as above, which is one of her most bothersome problems (pt. became tearful multiple times during the visit discussing this). She states she generally only sleeps in 10-15 min chunks before spasms awaken her. Spasms occur in the legs and hips as above, but can also extend into her back and chest. She is on melatonin, but does not feel this helps her sleep. She has a history of anxiety and depression as above. She is on Cymbalta, which she feels provides some benefit. There is a psychologist at the facility that she sees. Symptoms/Functional Limitations Related to Spasticity: Stiffness: Yes, in both legs, present constantly Spasms: Yes- in the hips and legs, can extend in the back and chest. Present constantly. Spasticity interferes with sleep: Yes- as described Spasticity interferes with function: yes- as described SPASM SCALE: >/- 10 spontaneous spasms/hr.- Pain related to the purpose of the visit: Yes LOCATION: legs, back, hips PAIN SCALE: 7-8 on a scale of 0-10, can be as high as a 10/10 PAIN CHARACTER: aching, severe, sharp, stabbing, stiff and heaviness DURATION: (How long have you had the pain?) chronic FREQUENCY: (How often does the pain occur?) occurs constantly AGGRAVATING FACTORS: sitting in one position for too long, transferring, legs bumping into something Patient Entered Data PROMIS No flowsheet data found. Spasticity NRS No flowsheet data found. Spasm Scale No flowsheet data found. Global Impression of Change No flowsheet data found. Treatments for Spasticity and Results of Treatments: Stretching/exercise: Regular therapy and stretching at nursing facility, but stretching is very difficult due to spasms and ridgidity. Oral medications: baclofen, gabapentin, robaxin as above. Pt. does not recall being on any other muscle relaxants in the past. Botulinum toxin injections: never Intrathecal baclofen therapy: never Evolution of disability: Was ambulatory until 12/2020. Suffered quadriparesis following spinal surgery, but has regained the strength and function in her arms/upper body. She has not walked or stood since 12/2020, uses a motorized wheelchair. Bowels: she feels the urge to defecate, but she can't control the need to go. Has some constipation- usually has a BM every 2 days. She is on senna, but does not use these regularly because it can cause loose stools Skin: skin is intact per pt. report Bladder: neurogenic bladder, s/p recent SPC placement with resolution of recurrent UTIs Nutritional status: appetite is good, she has gained 60 lbs over the course of the last year, swallowing without reported problems Driving issues: NA- does not drive Safety concerns regarding living situations and safety at home: Resides in [place], [place]. History of IVDU (heroin), opiate use/abuse, marijuana use, alcohol abuse (age 14 until about 2 years ago on review of records). She was born in [facility]. Her parents are . She has siblings, but she is not in contactwith them. She doesn't have many friends that she talks to, states that not a lot of them stayed around in light of her medical issues. Risk of falls: low risk, non-ambulatory, no recent falls Review of Systems Constitutional: Positive for fatigue and recent weight gain. Skin: Negative for rash and ulceration. HENT: Negative for trouble swallowing. Musculoskeletal: Positive for arthralgias, back pain, myalgias, muscle weakness and neck pain. Gastrointestinal: Positive for constipation. Genitourinary: Positive for frequent urinary infection, dysuria and indwelling catheter. Neurogenic bladder, s/p SPC placement with resolution of UTIs Neurological: Positive for sleep disturbance. Psychiatric: Positive for nervous/anxious. Review of Diagnostic Studies: MRI C, T, L spines from 01/27/2021: C-spine: IMPRESSION: 1. Large ventral epidural abscess extending from the foramen magnum to the of T3-T4 level measuringup to 7 mm in thickness. The ventral epidural abscess status of the C2 and C3 levels. This results in severe canal stenosis and cervical spinal cord compression at the C2 through the C4 levels. Abnormal increased cord signal edema extending from the inferior brainstem medulla to the C7-T1 level. Extensive prevertebral phlegmonous changes with a soft tissue abscess in the left anterior scalene musculature at the C5-C7 levels. 2. Marrow edema and enhancement involving C5, C6, C7 and T1 levels, may relate to osteomyelitis. Intervertebral disc with at C5-C6 without associated enhancement, may relate to early discitis and/or reactive changes. 3. Leptomeningeal enhancement along the surface of the brainstem and surface of the cervical spinalcord, suspicious for meningitis. T-spine: IMPRESSION: 1. Ventral epidural abscess extending from the cervical spine with a small component extending inferiorly to the T3-T4 level. Moderate central canal stenosis at the T1 and T2 level. 2. 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 3. Apparent collapse of the left lung with a left pleural effusion. L-spine: IMPRESSION: 1. Severe endplate degenerative disc changes on the right at L3-L4. Mild intervertebral disc fluid without significant enhancement is new from prior examination, favor reactive degenerative changes, although early discitis is difficult to exclude. Attention on follow-up is recommended. 2. Diffuse enhancement along the cauda equina nerve roots may relate to spinal meningitis, althoughfindings may conceivably be related to recent postoperative changes. 3. Stable compression fracture of right L2 vertebral body. Degenerative changes of the lumbar spine, stable compared to prior examination. PAST MEDICAL HISTORY Diagnosis Date Anxiety Chronic hepatitis C virus infection (HCC) Depression, recurrent (HCC) H/O spinal cord injury 2/ to epidural phlegmon and abscess requiring surgery Neurogenic bladder s/p supra-pubic catheter placement in 2021 Other chronic pain Phlegmon C6-T3 epidural phlegmon, s/p C2-T2 decompression and fusion with evacuation of phlegmon in 01/2021 Spastic quadriparesis (HCC) Spinal cord abscess S/p ACDF and abscess evauation in 01/2021 PAST SURGICAL HISTORY Procedure Laterality Date SECTION HX N/A 2001 REMOVAL GALLBLADDER 2001 SUPRAPUBIC CATHETER 2021 TOTAL ABDOM HYSTERECTOMY 2015 TOTAL KNEE REPLACEMENT Right 2013 Social History Tobacco Use Smoking status: Current Every Day Smoker Packs/day: 0.50 Types: Cigarettes Smokeless tobacco: Not on file Substance Use Topics Alcohol use: No Drug use: No No family history on file. PHYSICAL EXAMINATION: Musculoskeletal: Muscle atrophy of the Left hand noted. No edema, skin discoloration, temperature changes appreciated in BLE. +ve pedal pulses bilaterally Cognitive/Behavioral: The patient was alert and oriented with normal language and memory. Formal neuropsychological testing was not performed today. Pt. was tearful at times during visit describing her symptoms. Cranial Nerves: Facial sensation was normal. Muscles of mastication and facial expression moved normally, no facialdroop noted. Hearing was intact. Sternocleidomastoid and trapezius power were normal. Tongue movements were normal. There was no dysarthria. Strength Right Left Shoulder abduction 5 5 Elbow flexion 5 5 Elbow extension 5 5 Wrist extension 5 5 Hip flexion 4 3+ Knee flexion 3+ 1 Knee extension 4 3+ Plantarflexion 4+ 4 Dorsiflexion 3+ 3+ Strength: Muscle atrophy of the Left hand Ug Designer strength 5/5 bilaterally . Spasticity Right Left Shoulder 0 0 Elbow flexion 0 0 Elbow extension 0 0 Wrist flexion 0 0 Wrist extension 0 0 Finger flexion 0 0 Finger extension 0 1 Hip adduction 2 2 Knee extension 2 3 Knee flexion 0 1 Plantarflexion 3 3 Modified Dillon Scale 0 - No increase in tone 1 - Slight increase in tone (catch and release at end of ROM) 1+ - Slight increase in tone, manifested by a catch, followed by minimal resistance throughout remainder (less than half of ROM) 2 - Marked increase in tone through most of the ROM, but affected part(s) easily moved 3 - Considerable increase in tone; passive movement difficult 4 - Affected part(s) rigid in flexion or extension Spasms observed: RLE: right lower extremity spasms spasms elicited during exam LLE: left lower extremity spasms spasms elicited during exam Timed 25 foot walk: N/A Assistance required: wheelchair Ambulation Index Score: 9 - Restricted to wheelchair, dependent for transfers Sensory: Sensation to light touch was intact throughout ASSESSMENT: (G82.50) Spastic quadriparesis (HCC) (primary encounter diagnosis) (G82.20) Paraparesis of both lower limbs (HCC) (Z87.828) History of spinal cord injury (G06.1) Spinal epidural abscess (R26.9) Abnormality of gait (Z74.09, Z78.9) Impaired mobility and ADLs (F41.9) Anxiety (F32.A) Depression, unspecified depression type 47 yo female with a complex medical history, including quadriparesis stemming from epidural phlegmon and spinal abscess requiring extensive spinal surgeries in 12/2020. She has regained strength and function of her trunk and upper extremities, but she has persistent weakness in both legs and has not been able to stand or walk since her surgeries in 12/2020. She has developed severe spasticity in the legs in the setting of her immobility, which have been progressive and are now interfering with ADLs, sleep, her ability to do therapy/stretch, and her overall QOL. Spasms have largely been refractory to oral anti-spasticity medications and intensive rehabi litation. She also has issues with chronic pain in the setting of history of IVDU and opiate abuse. She was previously on opioid pain medication at [facility], but has been weaned off of these. Review of records shows a recent hospitalization for respiratory arrest related to fentanyl overdose as detailed above. She is following with pain management locally, who suggested she be evaluated for possible IT pump for management of her symptoms. On exam, pt. has full strength in BUE without significant tone. She has voluntary movements in both legs. Diminished strength is noted in BLE, L>R. Moderate to severe tone appreciated in both legs, the most prominent of which is in the hip adductors, knee flexors, and plantar flexors. Options discussed with patient. Reviewed the utility of continuing with conservative measures to ensure that all of these treatments are optimized and she agrees with this. Since she has had minimal improvement with treatments thus far and based on symptoms and exam, discussed that she would be a good candidate for botox injections. Goals of therapy were discussed, including less stiffness, spasms and discomfort with improved passive range of motion, ease of care, prevention of pressure sores and muscle contractures. I explainedthat botox will not treat her underlying medical issues and may not improve function/strength. She verbalizes understanding of above and is agreeable to trying this. Initial plan would be to target the bilateral hamstrings (100 units, 2 sites in each leg) and bilateral gastroc (25 units in the medial gastroc and 25 units in the lateral gastroc of each leg) with atotal of 300 units. Would ideally increase the dose to 600 units if needed/if insurance allows. Will submit authorization to her insurance and contact her to schedule initial botox appointment in4-6 weeks. In regards to her oral medications- reviewed that she may benefit from increased doses of the baclofen and gabapentin. Recommended that the night time dose of both be increased, as this may help withsleep in addition to spasms. Side effects of both meds reviewed and she is agreeable to trying the increased doses. New Rx written for baclofen 20/20/20/40 and gabapentin 400/400/400/800 (lab work reviewed, calculated CrCl on labs from 10/2021 supports these medication doses). Asked that she provide an update on how she is doing in a few weeks (and information provided on how she can set up her [employer] account). She knows to contact the office sooner if she develops any side effects or with any problems or concerns. Can consider further dose increase(s) v. trial of a different medication (ie- tizanidine) based on how she tolerates/how she is feeling. Encouraged her to continue with therapy at her nursing facility and also with regular stretching assfeli is able. Advised that this will be even more important after botox is initiated, as these will help augment the effects of the injections. Initial pre-authorization Medication: Botox [id number] Dose (units every 90 days): 300-400 If initial pre-authorization; list treatments failed: PT/OT, Baclofen and Other CPT Codes: Limbs: 86535 and 51042 EMG guidance: [id number] Educational materials provided: botox pamphlet Checklist for botulinum toxin or intrathecal baclofen therapy Severe spinal deformity: yes moderate to severe levo scoliosis reported on imaging from 2020 History of trauma to the spine: yes spinal phlegmon requiring surgery History of spinal surgery: yes C2-T2 decompression and fusion and evacuation of the phlegmon 12/2020, ACDF aand abscess evacuation in 01/2021 History of seizures: yes documented h/o epilepsy, not on any medications currently, denies recent seizures. Had seizures when she took ultram in the past, medication is listed as an allergy Pacemaker: no Anticoagulation: no Bleeding disorder: no elevated INR in the past while ill with acute hepatitis, this was also felt to be r/t nutritional vit. K def Ability to provide consent: yes Allergy to lidocaine: no Allergy to betadine: no Transportation problems: yes lives in [facility], does not drive, transport is provided by [place] staff Other: yes documented h/o of IVDU, hospitlized in 10/2021 with fentanyl overdose. She is not in contact with any family members (parents , does not speak with her siblings) PLAN: 1. Initiate botox therapy- insurance auth will be submitted. Start with above described muscle distribution and dose. Schedule for first visit in 4-6 weeks. Is dependent for transfers (transfers via lift at SNF), can hopefully do these in her wheelchair if it can be reclined. 2. Increase oral baclofen and gabapentin. Consider further dose adjustment v. trial of tizanidine based on how she tolerates the changes 3. Continue therapy and regular stretching at SNF 4. Continue to follow with psychology at [facility]. Can consider a referral to health psychology in the future if indicated/pt. agreeable 5. Continue to follow with pain management locally. 6. F/u: pt. will be contacted to schedule first botox appointment I spent a total of 70 minutes on the date of the service which included preparing to see the patient, [id number] patient care, completing clinical documentation, obtaining and/or reviewing separately obtained history, performing a medically appropriate examination, counseling and educating the pat ient/family/caregiver, ordering medications, tests, or procedures, communicating with other HCPs (not separately reported), independently interpreting results (not separately reported), communicatingresults to the patient/family/caregiver and care coordination (not separately reported). Deyanira Petersen APRN.CNP February 16, 2022 6:11 PM documented [facility] NoteDischarge Summary Katarzyna Vargas : 1975 ADMIT DATE: 11/03/2021 DISCHARGE DATE: 11/06/2021 PRIMARY CARE PHYSICIAN: DARREL VELOZ VISIT STATUS: Admission CODE STATUS: Prior DISCHARGE DIAGNOSES: Active Problems: Neurogenic bladder Resolved Problems: * No resolved hospital problems. * HOSPITAL COURSE: Katarzyna Vargas is a 46 y.o. female who presented on 11/03/2021 for treatment of neurogenic bladder and bladder stones. She underwent a suprapubic tube insertion and cystolitholapaxy on 11/03/2021. She tolerated the procedure well, and post-operatively was transferred to a regular nursing floor. Diet was advanced as tolerated. Activity was gradually increased. She was deemed fit for discharge on 11/04/21. Discharge was held due to communication issues with facility. She was discharged on 11/05/21 with 5 day course of ciprofloxacin. CONSULTANTS: N/a DISCHARGE MEDICATIONS: Medication List START taking these medications ciprofloxacin 500 MG tablet Commonly known as: CIPRO Take 1 tablet by mouth 2 times daily for 5 days CONTINUE taking these medications baclofen 20 MG tablet Commonly known as: LIORESAL bisacodyl 10 MG suppository Commonly known as: DULCOLAX calcium citrate-vitamin D 315-250 MG-UNIT Tabs per tablet Commonly known as: CITRICAL + D DULoxetine HCl 30 MG Csdr famotidine 20 MG tablet Commonly known as: PEPCID gabapentin 400 MG capsule Commonly known as: NEURONTIN ipratropium-albuterol 0.5-2.5 (3) MG/3ML Soln nebulizer solution Commonly known as: DUONEB loratadine 10 MG capsule Commonly known as: CLARITIN melatonin 3 MG Tabs tablet senna 8.6 MG tablet Commonly known as: SENOKOT therapeutic multivitamin-minerals tablet Where to Get Your Medications These medications were sent to [facility], [place] - [address] [facility] - P [phone] - F [phone] [address] ciprofloxacin 500 MG tablet DIET: No diet orders on file ACTIVITY: No heavy lifting > 10 lbs, no driving while on pain medications SIGNIFICANT DIAGNOSTIC STUDIES: Lab Results Component Value Date WBC 4.4 11/06/2021 HGB 11.9 11/06/2021 HCT 35.9 11/06/2021 MCV 91.1 11/06/2021 PLT 200 11/06/2021 Lab Results Component Value Date NA 136 11/06/2021 K 3.7 11/06/2021 CL 103 11/06/2021 CO2 29 11/06/2021 BUN 13 11/06/2021 CREATININE 0.69 11/06/2021 GLUCOSE 87 11/06/2021 CALCIUM 8.7 11/06/2021 Pathology: n/a RECOMMENDED NEXT STEPS: Outpatient follow up with Dr. Coello, office will schedule appointment. DISPOSITION: Home Follow up with Brendon Coello MD INSTRUCTIONS TO MA/SW: Please call patient on day after discharge (must document patient contacted within 2 business days of discharge). FOLLOW UP QUESTIONS FOR MA/SW: 1. Did you get medications filled and taking them as instructed from discharge? 2. Are you following your discharge instructions from your hospital stay? 3. Please confirm patient is scheduled for a follow up appointment within the above time frame. DISCHARGE TIME: < 30 minutes SIGNED: Britni Meraz MD 11/09/2021, 4:04 [facility]02-04-2022 NoteDischarge Summary Katarzyna Vargas : 1975 ADMIT DATE: 10/25/2021 DISCHARGE DATE: 10/27/2021 PRIMARY CARE PHYSICIAN: DARREL VELOZ VISIT STATUS: Admission CODE STATUS: Prior DISCHARGE DIAGNOSES: Active Problems: Drug overdose, accidental or unintentional, initial encounter Respiratory arrest (HCC) Resolved Problems: * No resolved hospital problems. * fentanyl overdose Cardio pulm arrest Chronic pain syn Obesity Quadriplegia HOSPITAL COURSE: Pt admitted to icu for fentanyl overdose, found unresponsive in snf, had cpr done, naloxone given, ROSC obtained. Addiction medicine was consutled for the same, pt did not have any further issues. Pt was on dilaudid and valium taper at snf, which needs to be continued. Discharged on tapering dose of dilaudid and valium per ADM instructions. Denied any suicidal ideations. Pt supposed to see pain management as an outpt. Patient is alert, awake, oriented x 3 No pallor, Icterus No JVD Heart S1 S2 No murmurs Lungs clear to auscultation Abdomen soft non distended no organomegaly No pedal edema, no cyanosis No focal neurological deficits ] CONSULTANTS: ADM DISCHARGE MEDICATIONS: Medication List CHANGE how you take these medications HYDROmorphone 2 MG tablet Commonly known as: DILAUDID Take 1 tablet by mouth every 6 hours as needed for Pain for up to 4 days. What changed: when to take this CONTINUE taking these medications baclofen 20 MG tablet Commonly known as: LIORESAL bisacodyl 10 MG suppository Commonly known as: DULCOLAX calcium citrate-vitamin D 315-250 MG-UNIT Tabs per tablet Commonly known as: CITRICAL + D DULoxetine HCl 30 MG Csdr enoxaparin 40 MG/0.4ML injection Commonly known as: LOVENOX famotidine 20 MG tablet Commonly known as: PEPCID gabapentin 400 MG capsule Commonly known as: NEURONTIN ipratropium-albuterol 0.5-2.5 (3) MG/3ML Soln nebulizer solution Commonly known as: DUONEB loratadine 10 MG capsule Commonly known as: CLARITIN melatonin 3 MG Tabs tablet senna 8.6 MG tablet Commonly known as: SENOKOT therapeutic multivitamin-minerals tablet STOP taking these medications acetaminophen 325 MG tablet Commonly known as: TYLENOL diazePAM 5 MG tablet Commonly known as: VALIUM docusate sodium 100 MG capsule Commonly known as: COLACE hydrocortisone 1 % lotion Menthol (Topical Analgesic) 4 % Gel methocarbamol 500 MG tablet Commonly known as: ROBAXIN polyvinyl alcohol 1.4 % ophthalmic solution Commonly known as: LIQUIFILM TEARS ProbioMax Daily DF Caps ASK your doctor about these medications diazePAM 5 MG tablet Commonly known as: VALIUM Take 1 tablet by mouth nightly as needed for Anxiety for up to 1 day. Ask about: Should I take this medication? Where to Get Your Medications Information about where to get these medications is not yet available Ask your nurse or doctor about these medications ? diazePAM 5 MG tablet ? HYDROmorphone 2 MG tablet DIET: No diet orders on file ACTIVITY: No restriction. up with assist SIGNIFICANT DIAGNOSTIC STUDIES: COMPLEXITY OF FOLLOW UP: [] Moderate Complexity: follow up within 7-14 calendar days (00155) [] Severe Complexity: follow up within 7 calendar days (72796) FOLLOW UP TESTING, PENDING RESULTS OR REFERRALS AT TRANSITIONAL CARE VISIT: [] Yes [] No PENDING STUDIES: @LABRRPENDINGTESTS@ RECOMMENDED NEXT STEPS: Taper dilaudid and valium DISPOSITION: To a non-[facility] facility FACILITY/HOME CARE AGENCY NAME: Follow up with DARREL VELOZ in 1 week INSTRUCTIONS TO MA/SW: Please call patient on day after discharge (must document patient contacted within 2 business days of discharge). FOLLOW UP QUESTIONS FOR MA/SW: 1. Did you get medications filled and taking them as instructed from discharge? 2. Are you following your discharge instructions from your hospital stay? 3. Please confirm patient is scheduled for a follow up appointment within the above time frame. DISCHARGE TIME: > 30 minutes SIGNED: Kamila White MD 10/31/2021, 9:39 [facility]05-23-2021 Note. MICRO - Microbiology PROCEDURE: Clostridium difficile PCR [^1 *1] SOURCE: Stool BODY SITE: COLLECTED DATE/TIME: 02/12/2021 15:06 EDT RECEIVED DATE/TIME: 02/12/2021 15:13 EDT START DATE/TIME: 02/12/2021 15:13 EDT FREE TEXT SOURCE: FINAL REPORTS Final Report [] Verified Date/Time/Personnel: 02/12/2021 21:47 EDT NEGATIVE. No tcdB gene DNA detected. Negative test results may occur from improper collection, handling or storage of specimen, technical error, or number of organisms below the analytical sensitivity of the test. Interpretive Data ^1: Clostridium difficile PCR As with all in vitro diagnostic tests, positive and negative predictive values are highly dependent on prevalence. The RevoLaze C. difficile PCR Assay performance may vary depending on the prevalence and population tested. Performing Locations *1: This test was performed at: [facility], [address] [place] [address], [facility]- , [facility] ([place])Comment on above:Performed By: #### CBC, ADIFF, ANEU, FERR, FOL, MG, TSH, PHOS, B12, FES, PRALB, GFR, CMP #### [place] [id number] note* Diagnosis Spastic quadriparesis (HCC)- Primary Quadriplegia, unspecified Paraparesis of both lower limbs (HCC) Paraplegia History of spinal cord injury Personal history of other disorders of nervous system and sense organs Spinal epidural abscess Intraspinal abscess Abnormality of gait Impaired mobility and ADLs Other ill-defined conditions Anxiety Anxiety state, unspecified Depression, unspecified depression type [facility] [place] [facility]* Diagnosis Spastic quadriparesis (HCC)- Primary Quadriplegia, unspecified Abnormality of gait Contracture of joint of multiple sites [facility]* Diagnosis Spastic quadriparesis (HCC)- Primary Quadriplegia, unspecified Spasticity Abnormal involuntary movements Abnormality of gait documented in [facility] [place] noteNo assessment information availableWProvidence Hospital Work Phone: Evaluation note* Diagnosis History of spinal cord injury- Primary Personal history of other disorders of nervous system and sense organs Spastic quadriparesis (HCC) Quadriplegia, unspecified [facility]* Diagnosis Tobacco use- Primary Back pain, unspecified back location, unspecified back pain laterality, unspecified chronicity Gastroesophageal reflux disease without esophagitis Esophageal reflux Morbid obesity with BMI of 45.0-49.9, adult (HCC) long term resident Wheelchair dependent Wheelchair dependence documented in this encounter [facility] note* Diagnosis Back pain, unspecified back location, unspecified back pain laterality, unspecified chronicity- Primary Gastroesophageal reflux disease without esophagitis Esophageal reflux Morbid obesity with BMI of 45.0-49.9, adult (HCC) Tobacco use Wheelchair dependent Wheelchair dependence Pre-operative laboratory examination Pre-procedural laboratory examination Pre-operative clearance Unspecified pre-operative examination Gastro-esophageal reflux disease without esophagitis documented in this encounter [facility] note* Diagnosis Atonic neurogenic bladder- Primary Neurogenic bladder, NOS [facility] [place] [facility]* Diagnosis Atonic neurogenic bladder- Primary Neurogenic bladder, NOS [facility] [place] [facility]* Diagnosis Back pain, unspecified back location, unspecified back pain laterality, unspecified chronicity- Primary Gastroesophageal reflux disease without esophagitis Esophageal reflux Morbid obesity with BMI of 45.0-49.9, adult (HCC) Tobacco use Wheelchair dependent Wheelchair dependence Pre-operative laboratory examination Pre-procedural laboratory examination Pre-operative clearance Unspecified pre-operative examination documented in this encounter [facility] note* Diagnosis Neurogenic bladder- Primary Neurogenic bladder, NOS [facility] [place] [facility]* Diagnosis Neurogenic bladder- Primary Neurogenic bladder, NOS [facility] [place] [facility]* Diagnosis Neurogenic bladder- Primary Neurogenic bladder, NOS documented [facility] [place] [facility]* Diagnosis Neurogenic bladder- Primary Neurogenic bladder, NOS documented [facility] [place] [facility]* Diagnosis Neurogenic bladder- Primary Neurogenic bladder, NOS documented [facility] [place] [facility]* Diagnosis Neurogenic bladder- Primary Neurogenic bladder, NOS Screening for genitourinary condition Screening for other and unspecified genitourinary condition Hematuria, unspecified type Bladder spasm Other specified disorders of bladder [facility] [place] [facility]* Diagnosis Neurogenic bladder- Primary Neurogenic bladder, NOS documented [facility] [place] [facility]* Diagnosis Painful bladder spasm- Primary Other symptoms involving urinary system Bladder spasm Other specified disorders of bladder [facility] [place] [facility]* Diagnosis Chronic suprapubic catheter (HCC)- Primary Unspecified cystostomy status Neurogenic bladder Neurogenic bladder, NOS [facility]* Diagnosis Neurogenic bladder- Primary Neurogenic bladder, NOS documented in [facility] [place] [facility]* Diagnosis Neurogenic bladder- Primary Neurogenic bladder, NOS documented [facility] [place] [facility]* Diagnosis Neurogenic bladder- Primary Neurogenic bladder, NOS Urinary retention Retention of urine, unspecified documented [facility] this [facility]* Diagnosis Suprapubic catheter ([facility] V24, [facility] V28)- Primary Other cystostomy status documented in this encounter [facility] Discharge instructions Additional Instructions Clean wound daily with soap and water or peroxide and water. Stitches out in 7 days. Watch for any signs of infection is seen needs evaluated. Tetanus was updated. Head injury instructions. Tylenol for pain. Ice to the forehead 3 times a day for 30 minutes each time for the next 2 days.[facility] Work Phone: Hospital Discharge instructionsAdditional Instructions Your potassium was slightly low. I recommend you follow-up with your primary care doctor.[facility] Work Phone: Hospital Discharge instructionsAdditional Instructions Follow-up with your doctor in the outpatient setting. Take Keflex as prescribed follow-up on urine culture. Return with worsening symptoms or any concerns your blood work showed a mild hypokalemia therefore you were given potassium supplementation in the emergency department. Your CT of your neck did not show any acute findings today.[facility] Work Phone: Hospital Discharge instructionsAdditional Instructions Your labs look good. Your urine had white cells in it but that is common for suprapubic catheter. A culture will be sent if that shows an infection we will notify you. Your catheter appears to be working well. If there is further problems follow-up with your urologist.[facility] Work Phone: Reason for referral (narrative)* Consultation (Routine) - Pending Review Specialty Diagnoses / Procedures Referred By Miguelina galvan Referred To Contact Pulmonary Disease / Pulmonology Diagnoses Morbid obesity with BMI of 45.0-49.9, adult ([facility]) Tobacco use Pre-operative clearance Procedures IN OFFICE/OUTPATIENT NEW HIGH MDM 60-74 MINUTES Minh Luu PA [address] [place] [address] [facility] [address] [place] [address] Referral ID Status Reason Start Date Expiration Date Visits Requested Visits Authorized [id number] Pending Review Specialty Services Required 3 07/22/2024 1 1 * Consultation (Elective) - Pending Review Specialty Diagnoses / Procedures Referred By Contac t Referred To Contact Cardiology Diagnoses Morbid obesity with BMI of 45.0-49.9, adult (HCC) Tobacco use Pre-operative clearance Procedures IN OFFICE/OUTPATIENT NEW HIGH MDM 60-74 MINUTES Minh Luu PA [address] [place] [address] [address] [place] [address] Referral ID Status Reason Start Date Expiration Date Visits Requested Visits Authorized [id number] Pending Review Specialty Services Required 3 07/22/2024 1 1 [facility] for referral (narrative)* Outpatient Procedure (Routine) - New Request Specialty Diagnoses / Procedures Referred By Contbernardo t Referred To Contact [facility] Diagnoses Neurogenic bladder Procedures SUPRAPUBIC TUBE CHANGE ASPIRATION BLADDER INSERT SUPRAPUBIC CATHETER Rush Maxwell PA-C [address] [place] [address] [facility] [address] [place] [address] Referral ID Status Reason Start Date Expiration Date Visits Requested Visits Authorized [id number] New Request Auto-Generat ed Referral 06/30/2024 06/30/2025 99 1 [facility] for referral (narrative)No reason for referral information availableWProvidence Hospital Work Phone: Summary Purpose Family History Relationship Condition Age at Onset Recorded Date/T karoline Unknown Family History?No pe rtinent history Unknown May 24, 2016 5:12pm Family History?No pe rtinent history Unknown February 13, 2019 2:30am Relationship Condition Age at Onset Recorded Date/T karoline Unknown Family History?No pe rtinent history Unknown May 24, 2016 6:12pm Family History?No pe rtinent history Unknown February 13, 2019 3:30am Advance Directives Advance Directive Response Recorded Date/ Time Advance Directives No August 29, 2016 9:15am Living Will No January 18, 2021 3:47pm Power of Stock Feeder No January 18 3:47pm Advance Directive Response Recorded Date/ Time Advance Directives No August 29, 2016 10:15am Living Will No January 18, 2021 4:47pm Power of Stock Feeder No January 18 4:47pm Advance Directive Response Recorded Date/ Time Advance Directives No August 29, 2016 10:15am Living Will No February 06, 2023 9 :17pm Power of Stock Feeder No February 06, 2023 9:17pm Advance Directive Response Recorded Date/ Time Name of Medical Power of Stock Feeder SURYA MORRISSEY May 17, 2023 6:07am Advance Directives No August 29, 2016 10:15am Living Will No May 17 6:07am Power of Stock Feeder Yes May 17, 2 023 6:07am Latest Code Status on File Code Status Date Activated Date Inactivated Comments Full Code 07/30/2022 4:48 PM 07/31/2022 1:52 PM Latest Code Status on File Code Status Date Activated Date Inactivated Comments Full Code 07/30/2022 4:48 PM 07/31/2022 1:52 PM Advance Directive Response Recorded Date/ Time Name of Medical Power of Stock Feeder SURYA MORRISSEY May 17, 2023 5:07am Advance Directives No August 29, 2016 9:15am Living Will No May 17 5:07am Power of Stock Feeder Yes May 17, 2 023 5:07am Advance Directive Response Recorded Date/ Time Advance Directives No August 29, 2016 9:15am Living Will No May 17 5:07am Power of Stock Feeder Yes May 17, 2 023 5:07am Advance Directive Response Recorded Date/ Time Advance Directives No August 29, 2016 10:15am Living Will No December 07, 2023 4:43am Power of Stock Feeder No December 06 4:43am Advance Directive Response Recorded Date/ Time Advance Directives No August 29, 2016 10:15am Living Will No January 19, 2024 9:22pm Power of Stock Feeder No January 18 9:22pm Advance Directive Response Recorded Date/ Time Do you have a Healthcare Power of Stock Feeder? No March 19, 2025 1:42pm Advance Directives No August 29, 2016 10:15am Advance Directive Response Recorded Date/ Time Do you have a Healthcare Power of Stock Feeder? No March 19, 2025 1:42pm Do you have a Healthcare Power of Stock Feeder? No March 28, 2025 2:35pm Advance Directives No August 29, 2016 10:15am Advance Directive Response Recorded Date/ Time Do you have a Healthcare Power of Stock Feeder? No March 19, 2025 1:42pm Do you have a Healthcare Power of Stock Feeder? No March 28, 2025 2:35pm Do you have a Healthcare Power of Stock Feeder? No April 01, 2025 11:30am Advance Directives No August 29, 2016 10:15am Advance Directive Response Recorded Date/ Time Do you have a Healthcare Power of Stock Feeder? No March 19, 2025 1:42pm Do you have a Healthcare Power of Stock Feeder? No March 28, 2025 2:35pm Do you have a Healthcare Power of Stock Feeder? No April 01, 2025 11:30am Do you have a Healthcare Power of Stock Feeder? No April 12, 2025 4:48pm Advance Directives No August 29, 2016 10:15am Medications Administered Section Inactive Administered Medications - up to 3 most recent administrations Medication Order MAR Action Action Date Dose Rate Site onabotulinum toxin type A 400 Units injection (BOTOX) 400 Units, INTRAMUSCULAR, ONCE, 1 dose, On Lauren 08/09/22 at 1630, Reconstitute with 1.2 mL 0.9% NaCl. This record documents the total dose provided to patient. See progress note for specific locations and amounts administered. REFRIGERATE - Pharmaceutical Waste: Lab Pack - Given 08/09/2022 4:30 PM EST 400 Units Other Inactive Administered Medications - up to 3 most recent administrations Medication Order MAR Action Action Date Dose Rate Site onabotulinum toxin type A 100 Units in NaCl (PF) 0.9% 10 mL Syringe 100 Units, INTRADERMAL, ONCE, 1 dose, On Sat11/07/22 at 1100, EXPIRATION: 24 HOURS: - Mixed in 0.9% NaCl 100 units/mL REFRIGERATE Given 11/07/2022 11:00 AM EST 100 Units Othe r Chief Complaint and Reason for Visit Chief Complaint [facility] LAB WOR K Chief Complaint [facility] LAB WOR K [facility] LAB WORK Chief Complaint [facility] LAB WOR K [facility] WORK LABWORK Chief Complaint LABWORK LABWORK LABWORK LEFT TIB/FIB FX LABWORK Chief Complaint LABWORK LEFT TIB/FIB FX [facility] WORK LABWORK LABWORK [facility] WORK LABWORK [facility] WORK LABWORK HEAD INJURY Chief Complaint LABWORK [facility] LAB WORK LABWORK HEAD INJURY LABWORK FPC LABWORK [facility] LAB WORK FPC LABWORK Chief Complaint HEAD INJURY LABWORK FPC LABWORK [facility] LAB WORK FPC LABWORK FPC LABWROK Chief Complaint [facility] LABWROK Chief Complaint [facility]WROK SEE ORDER Chief Complaint [facility]WR[facility] SEE ORDER leg fx Chief Complaint SEE ORDER leg fx SCHMITT PROBLEM Chief Complaint Admit Date substance abuse March 19, 2025 1:40 pm Chief Complaint Admit Date substance abuse March 19, 2025 1:40 pm substance abuse March 28, 2025 2:34p m Chief Complaint Admit Date substance abuse March 19, 2025 1:40 pm substance abuse March 28, 2025 2:34p m FACE April 01, 2025 11:2 1am Chief Complaint Admit Date substance abuse March 19, 2025 1:40 pm substance abuse March 28, 2025 2:34p m FACE April 01, 2025 11:2 1am suprapubic cath April 12, 2025 4:42 pm Additional Source Comments INFORMATION SOURCE (unrecogn ized section and content) DATE CREATED AUTHOR 05/18/2019 [facility] DATE CREATED AUTHOR AUTHOR'S ORGANIZ ATION 05/27/2020 [facility] DATE CREATED AUTHOR AUTHOR'S ORGANIZ ATION 03/24/2021 [facility] ([place]) DATE CREATED AUTHOR AUTHOR'S ORGANIZ ATION 10/02/2021 [facility] DATE CREATED AUTHOR AUTHOR'S ORGANIZ ATION 11/11/2021 [facility] DATE CREATED AUTHOR AUTHOR'S ORGANIZ ATION 04/11/2022 [facility] DATE CREATED AUTHOR AUTHOR'S ORGANIZ ATION 09/27/2023 [facility] DATE CREATED AUTHOR AUTHOR'S ORGANIZ ATION 04/05/2025 [facility] DATE CREATED AUTHOR AUTHOR'S ORGANIZ ATION 04/10/2025 [facility] DATE CREATED AUTHOR AUTHOR'S ORGANIZ ATION 04/12/2025 [facility] Comments (unrecognize d section and content) In the event this informatio n is protected by the Federal Confidentiality of Alcohol and Drug Abuse Patient Records regulations: The Federal rules restrict any use of the information to criminally investigate or prosecute any alcohol or drug abuse patient.[facility] the event this information is protected by the Federal Confidentiality of Alcohol and Drug Abuse Patient Records regulations: The Federal rules restrict any use of the information to criminally investigate or prosecute any alcohol or drug abuse patient.[facility] CenterIn the event this information is protected by the Federal Confidentiality of Alcohol and Drug Abuse Patient Records regulations: The Federal rules restrict any use of the information to criminally investigate or prosecute any alcohol or drug abuse patient.[facility] CenterIn the event this information is protected by the Federal Confidentiality of Alcohol and Drug Abuse Patient Records regulations: The Federal rules restrict any use of the information to criminally investigate or prosecute any alcohol or drug abuse patient.[facility] CenterIn the event this information is protected by the Federal Confidentiality of Alcohol and Drug Abuse Patient Records regulations: The Federal rules restrict any use of the information to criminally investigate or prosecute any alcohol or drug abuse patient.[facility] CenterIn the event this information is protected by the Federal Confidentiality of Alcohol and Drug Abuse Patient Records regulations: The Federal rules restrict any use of the information to criminally investigate or prosecute any alcohol or drug abuse patient.[facility] CenterIn the event this information is protected by the Federal Confidentiality of Alcohol and Drug Abuse Patient Records regulations: The Federal rules restrict any use of the information to criminally investigate or prosecute any alcohol or drug abuse patient.[facility] CenterIn the event this information is protected by the Federal Confidentiality of Alcohol and Drug Abuse Patient Records regulations: The Federal rules restrict any use of the information to criminally investigate or prosecute any alcohol or drug abuse patient.[facility] CenterIn the event this information is protected by the Federal Confidentiality of Alcohol and Drug Abuse Patient Records regulations: The Federal rules restrict any use of the information to criminally investigate or prosecute any alcohol or drug abuse patient.[facility] CenterIn the event this information is protected by the Federal Confidentiality of Alcohol and Drug Abuse Patient Records regulations: The Federal rules restrict any use of the information to criminally investigate or prosecute any alcohol or drug abuse patient.[facility] CenterIn the event this information is protected by the Federal Confidentiality of Alcohol and Drug Abuse Patient Records regulations: The Federal rules restrict any use of the information to criminally investigate or prosecute any alcohol or drug abuse patient.[facility] CenterIn the event this information is protected by the Federal Confidentiality of Alcohol and Drug Abuse Patient Records regulations: The Federal rules restrict any use of the information to criminally investigate or prosecute any alcohol or drug abuse patient.[facility] CenterIn the event this information is protected by the Federal Confidentiality of Alcohol and Drug Abuse Patient Records regulations: The Federal rules restrict any use of the information to criminally investigate or prosecute any alcohol or drug abuse patient.[facility] CenterIn the event this information is protected by the Federal Confidentiality of Alcohol and Drug Abuse Patient Records regulations: The Federal rules restrict any use of the information to criminally investigate or prosecute any alcohol or drug abuse patient.[facility] CenterIn the event this information is protected by the Federal Confidentiality of Alcohol and Drug Abuse Patient Records regulations: The Federal rules restrict any use of the information to criminally investigate or prosecute any alcohol or drug abuse patient.[facility] CenterIn the event this information is protected by the Federal Confidentiality of Alcohol and Drug Abuse Patient Records regulations: The Federal rules restrict any use of the information to criminally investigate or prosecute any alcohol or drug abuse patient.[facility] CenterIn the event this information is protected by the Federal Confidentiality of Alcohol and Drug Abuse Patient Records regulations: The Federal rules restrict any use of the information to criminally investigate or prosecute any alcohol or drug abuse patient.[facility] CenterIn the event this information is protected by the Federal Confidentiality of Alcohol and Drug Abuse Patient Records regulations: The Federal rules restrict any use of the information to criminally investigate or prosecute any alcohol or drug abuse patient.[facility] CenterIn the event this information is protected by the Federal Confidentiality of Alcohol and Drug Abuse Patient Records regulations: The Federal rules restrict any use of the information to criminally investigate or prosecute any alcohol or drug abuse patient.[facility] CenterIn the event this information is protected by the Federal Confidentiality of Alcohol and Drug Abuse Patient Records regulations: The Federal rules restrict any use of the information to criminally investigate or prosecute any alcohol or drug abuse patient.[facility] CenterIn the event this information is protected by the Federal Confidentiality of Alcohol and Drug Abuse Patient Records regulations: The Federal rules restrict any use of the information to criminally investigate or prosecute any alcohol or drug abuse patient.[facility] CenterIn the event this information is protected by the Federal Confidentiality of Alcohol and Drug Abuse Patient Records regulations: The Federal rules restrict any use of the information to criminally investigate or prosecute any alcohol or drug abuse patient.[facility] CenterIn the event this information is protected by the Federal Confidentiality of Alcohol and Drug Abuse Patient Records regulations: The Federal rules restrict any use of the information to criminally investigate or prosecute any alcohol or drug abuse patient.[facility] CenterIn the event this information is protected by the Federal Confidentiality of Alcohol and Drug Abuse Patient Records regulations: The Federal rules restrict any use of the information to criminally investigate or prosecute any alcohol or drug abuse patient.[facility] CenterIn the event this information is protected by the Federal Confidentiality of Alcohol and Drug Abuse Patient Records regulations: The Federal rules restrict any use of the information to criminally investigate or prosecute any alcohol or drug abuse patient.[facility] CenterIn the event this information is protected by the Federal Confidentiality of Alcohol and Drug Abuse Patient Records regulations: The Federal rules restrict any use of the information to criminally investigate or prosecute any alcohol or drug abuse patient.[facility] CenterIn the event this information is protected by the Federal Confidentiality of Alcohol and Drug Abuse Patient Records regulations: The Federal rules restrict any use of the information to criminally investigate or prosecute any alcohol or drug abuse patient.[facility] CenterIn the event this information is protected by the Federal Confidentiality of Alcohol and Drug Abuse Patient Records regulations: The Federal rules restrict any use of the information to criminally investigate or prosecute any alcohol or drug abuse patient.[facility] CenterIn the event this information is protected by the Federal Confidentiality of Alcohol and Drug Abuse Patient Records regulations: The Federal rules restrict any use of the information to criminally investigate or prosecute any alcohol or drug abuse patient.[facility] Reason for Visit (unrecogniz ed section and content) Reason Comments Insurance Authorization Reason Comments Results Reason Comments Surgical Consult NEW Specialty Diagnoses / Procedures Referred By Contac t Referred To Contact Bariatric Surgery / Bariatrics Diagnoses Obesity, unspecified Procedures eval n treat [facility] [address] [place] [address] Referral ID Status Reason Start Date Expiration Date V isits Requested Visits Authorized [id number] Pending Review 06/24/2023 12/21/2023 1 1 Reason Comments EGD Reason Onset Date Comments Financial File 07/18/2023 Financial File 2 023 Surgery Scheduling 07/18/2023 Initial sched uling-orders placed Reason Comments Orders Reason Comments Nurse Visit SPT Reason Comments Nurse Visit SPT cath change Reason Comments Patient Question Needs bag Reason Comments Appointment Reason Comments Nurse Visit Supra Pubic catheter change Reason Comments Nurse Visit SPT Tube change Neurogenic Bladder Reason Comments Nurse Visit SPT SPT change Reason Comments SPT Tube change Reason Comments Follow Up Neurogenic Bladder Reason Comments Nurse Visit SPT Tube change Reason Comments Patient Question Medication Problem Orders Reason Onset Date Comments Appointment Request 09/27/2022 Reason Comments SPT Reason Comments Nurse Visit SPT change Reason Comments Returning Patient's Call Reason Comments Patient Question Reason Comments Catheter Care Care Teams (unrecognized sec tion and content) Team Status: Active Member Role Status Dates Dr. Darrel Veloz DO Family Provider Active Dr. Darrel Veloz DO Primary Care Provider Active Team Status: Inactive Member Role Status Dates Dr. Darrel Veloz DO Primary Care Provider Active Dawit Abreu Attending Provider, Referring Provider Ac tive Team Status: Inactive Member Role Status Dates Dr. Darrel Veloz DO Primary Care Provider Active Dawit DENNIS Attending Provider, Referring Provide r Active Team Status: Active Member Role Status Dates Dr. Darrel Veloz DO Primary Care Provider Active Dawit DENNIS Attending Provider Active Team Status: Inactive Member Role Status Dates Dr. Darrel Veloz DO Primary Care Provider Active Dawit DENNIS Attending Provider Active Team Status: Active Member Role Status Dates Dr. Darrel Veloz DO Family Provider Active Dr. Dawit Abreu MD Primary Care Provider Active Team Status: Inactive Member Role Status Dates Dr. Dawit Abreu MD Primary Care Provider Active Dr. Iron Keith MD Attending Provider, Emergency Provider Active Team Status: Active Member Role Status Dates Dr. Dawit Abreu MD Primary Care Provider Active Dawit DENNIS Attending Provider Active Team Status: Inactive Member Role Status Dates Dr. Dawit Abreu MD Primary Care Provider Active Dawit DENNIS Attending Provider Active Team Status: Active Member Role Status Dates Dr. Dawit Abreu MD Primary Care Provider Active Dawit DENNIS Attending Provider, Referring Provide r Active Team Status: Active Member Role Status Dates Dr. Dawit Abreu MD Primary Care Provider Active Iron DENNIS Attending Provider Active Team Status: Inactive Member Role Status Dates Dr. Dawit Abreu MD Primary Care Provider Active Dr. Renato Henson MD Emergency Provider Active Bindery Technician Relationship Specialty Start Date End Date Darrel Veloz [address] [place] [address] PCP - General 08/01/19 Geoff Alcantar MD [address] [place] [address] [address] [place] [address] Surgeon General Surgery 07/12/23 Bindery Technician Relationship Specialty Start Date End Date Darrel Veloz [address] [address] PCP - General 08/01/19 Geoff Alcantar MD [address] [place] [address] [address] [place] [address] Surgeon General Surgery 07/12/23 Bindery Technician Relationship Specialty Start Date End Date Darrel Veloz [address] [place] [address] PCP - General 08/01/19 Geoff Alcantar MD [address] [place] [address] [address] [place] [address] Surgeon General Surgery 07/12/23 Bindery Technician Relationship Specialty Start Date End Date Darrel Veloz [address] [address] PCP - General 08/01/19 Geoff Alcantar MD [address] [place], [place] [id number] Surgeon General Surgery 07/12/23 Team Status: Inactive Member Role Status Dates Dr. Dawit Abreu MD Primary Care Provider Active Dr. Renato Henson MD Attending Provider, Emergency Pro vider Active Bindery Technician Relationship Specialty Start Date End Date Darrel Veloz [address] [address] PCP - General 08/01/19 Geoff Alcantar MD [address] [place] [address] [address] [place] [address] Surgeon General Surgery 07/12/23 Bindery Technician Relationship Specialty Start Date End Date RoseliaDarrel contreras Jennifer [address] [place] [address] PCP - General 08/01/19 Geoff Alcantar MD [address] [place] [address] [address] [place] [address] Surgeon General Surgery 07/12/23 Team Status: Inactive Member Role Status Dates Dr. Darrel Veloz DO Primary Care Provider, Attendin g Provider Active Team Status: Inactive Member Role Status Dates Dr. Darrel Veloz DO Primary Care Provider Active Dr. Ruddy Minaya MD Attending Provider, Referring Provider Active Team Status: Inactive Member Role Status Dates Dr. Darrel Veloz DO Primary Care Provider Active Dr. Sarah Saucedo MD Emergency Provider Active Team Status: Inactive Member Role Status Dates Dr. Darrel Veloz DO Primary Care Provider Active Dr. Bradly Eden MD Emergency Provider Active Team Status: Inactive Member Role Status Dates Dr. Darrel Roselia , DO Primary Care Provider Active Dr. Sarah Saucedo MD Attending Provider, Emergency Provider Active Bindery Technician Relationship Specialty Start Date End Date Darrel Veloz DO [address] [place] [address] PCP - General Family Medicine 03/03/24 Bindery Technician Relationship Specialty Start Date End Date Darrel Veloz DO [address] [place] [address] PCP - General Family Medicine 03/03/24 Bindery Technician Relationship Specialty Start Date End Date Darrel Veloz DO [address] [place] [address] PCP - General Family Medicine 03/03/24 Bindery Technician Relationship Specialty Start Date End Date Darrel Veloz DO [address] [place] [address] PCP - General Family Medicine 03/03/24 Bindery Technician Relationship Specialty Start Date End Date Darrel Veloz DO [address] [place] [address] PCP - General Family Medicine 03/03/24 Bindery Technician Relationship Specialty Start Date End Date Darrel Veloz DO [address] [place] [address] PCP - General Family Medicine 03/03/24 Bindery Technician Relationship Specialty Start Date End Date Darrel Veloz [address] [place] [id number] PCP - General 08/01/19 Bindery Technician Relationship Specialty Start Date End Date Darrel Veloz DO [address] [place], [place] [address] PCP - General Family Medicine 03/03/24 Bindery Technician Relationship Specialty Start Date End Date Darrel Veloz DO [address] [place], [place] [id number] PCP - General Family Medicine 03/03/24 Bindery Technician Relationship Specialty Start Date End Date Darrel Veloz DO [address] [place], [place] [id number] PCP - General Family Medicine 03/03/24 Team Status: Active Member Role/Relationship Status Dates Dr. Darrel Veloz DO Primary Care Provider Active Team Status: Inactive Member Role/Relationship Status Dates Dr. Darrel Veloz DO Primary Care Provider Active Start: March 19, 2025 End: March 19, 2025 Dr. Nick Angelo DO Emergency Provider Active Start: March 19, 2025 End: March 19, 2025 Team Status: Inactive Member Role/Relationship Status Dates Dr. Darrel Veloz DO Primary Care Provider Active Start: March 19, 2025 End: March 19, 2025 Dr. Nick Angelo DO Attending Provider Active Start: March 19, 2025 End: March 19, 2025 Dr. Nick Angelo DO Emergency Provider Active Start: March 19, 2025 End: March 19, 2025 Team Status: Inactive Member Role/Relationship Status Dates Dr. Darrel Veloz DO Primary Care Provider Active Start: March 28, 2025 End: March 28, 2025 Dr. Renato Henson MD Emergency Provider Active S tart: March 28, 2025 End: March 28, 2025 Bindery Technician Relationship Specialty Start Date End Date Darrel Veloz DO [address] [place], [place] [id number] PCP - General Family Medicine 03/03/24 Team Status: Inactive Member Role/Relationship Status Dates Dr. Darrel Veloz DO Primary Care Provider Active Start: April 01, 2025 End: April 01, 2025 Dr. Samuel Hodges DO Referring Provider Active Start: April 01, 2025 End: April 01, 2025 Dr. Samuel Hodges DO Emergency Provider Active Start: April 01, 2025 End: April 01, 2025 Bindery Technician Relationship Specialty Start Date End Date Physician, No Pcp PCP - General 04/08/25 Team Status: Inactive Member Role/Relationship Status Dates Dr. Darrel Veloz DO Primary Care Provider Active Start: March 28, 2025 End: March 28, 2025 Dr. Renato Henson MD Attending Provider Active S tart: March 28, 2025 End: March 28, 2025 Dr. Renato Henson MD Emergency Provider Active S tart: March 28, 2025 End: March 28, 2025 Team Status: Inactive Member Role/Relationship Status Dates Dr. Darrel Veloz DO Primary Care Provider Active Start: April 01, 2025 End: April 01, 2025 Dr. Samuel Hodges DO Attending Provider Active Start: April 01, 2025 End: April 01, 2025 Dr. Samuel Hodges DO Referring Provider Active Start: April 01, 2025 End: April 01, 2025 Dr. Samuel Hodges DO Emergency Provider Active Start: April 01, 2025 End: April 01, 2025 Team Status: Inactive Member Role/Relationship Status Dates Dr. Darrel Veloz DO Primary Care Provider Active Start: April 12, 2025 End: April 12, 2025 Dr. Renato Henson MD Emergency Provider Active S tart: April 12, 2025 End: April 12, 2025 Goals (unrecognized section and content) Goals may be documented in a n alternate sectionGoals may be documented in an alternate sectionGoals may be documented in an alternate sectionGoals may be documented in an alternate sectionGoals may be documented in an alternate sectionGoals may be documented in an alternate sectionGoals may be documented in an alternate sectionGoals may be documented in an alternate sectionGoals may be documented in an alternate sectionGoals may be documented in an alternate sectionGoals may be documented in an alternate sectionGoals may be documented in an alternate sectionGoals may be documented in an alternate sectionGoals may be documented in an alternate sectionGoals may be documented in an alternate section FOR RECORDS PERTAINING TO PATIENTS WHO ARE OR HAVE BEEN ENROLLED IN A CHEMICAL DEPENDENCY/SUBSTANCEABUSE PROGRAM, SOME INFORMATION MAY BE OMITTED. This clinical summary was aggregated from multiple sources. Caution should be exercised in using it in the provision of clinical care. This summary normalizes information from multiple sources, and as a consequence, information in this document may materially change the coding, format and clinical context of patient data. In addition, data may be omitted in some cases. CLINICAL DECISIONS SHOULD BE BASED ON THE PRIMARY CLINICAL RECORDS. [facility]. provides no warranty or guarantee of the accuracy or completeness of information in this document.
== END 2025-04-12 19:38 | disposition home or self-care (01) ==
PROVIDERS: Emergency Provider Emergency Medicine; PCP Family Medicine; Visit Provider Emergency Medicine
DX: T83.098A Other mechanical complication of other urinary catheter, initial encounter (principal); F32.A Depression, unspecified; Z79.899 Other long term (current) drug therapy; Z90.49 Acquired absence of other specified parts of digestive tract; F17.210 Nicotine dependence, cigarettes, uncomplicated; R11.2 Nausea with vomiting, unspecified; R30.9 Painful micturition, unspecified
CPT/HCPCS: 80048; 81001; 85025; 87077; 87086; 87088; 87186; 96361; 96374; 99285; J2405

== ENCOUNTER 2025-06-05 14:20 | Emergency (ER) | payer MEDICAID, SELFPAY ==
[2025-06-05 14:20] VITALS: BP 118/92; PULSE 101; RESP 18; TEMP 37.3; O2SAT 98; BMI 25.9
--- NOTE | 2025-06-05 14:45 | EX.ED.DYSGE1 ---
HPI History of Present Illness Chief Complaint: Schmitt C/O Detail of Chief Complaint: Will crawl on the floor she pulled out her suprapubic catheter by accident Informant: patient Onset/Context/Timing Onset: Today and Hours (This occurred several to many hours prior to presentation) Context: Sudden Onset Timing: Continuous Quality: Traumatic displacement of suprapubic catheter Location: Suprapubic catheter Current Severity: Gone Maximum Severity: Moderate Worsened by: Apparently when she was crawling she had her knee on the catheter and dislo Relieved by: Nothing Associated Symptoms Associated Symptoms: None Narrative Narrative: 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 This occurred in 2020. She states the Schmitt came out several hours prior to presentation. She has no other complaints i.e. fever, chills night sweats. She denies any discomfort. Patient has not been seen by any surgeon since . She was seen by Dr. Linus Deng with orthopedic surgeon and Dr. Efraín Kinsey who is REFERRAL AND INFORMATION AIDE orthopedic and gynecologic symptoms. Her urologist affiliated with the [facility]. She was seen in March of this year for an occluded Schmitt. Prior similar symptoms: Yes Recent Illness/Hospitalization: No PFSH PFSH Medical History Functional dyspepsia Acute embolism and thrombosis of unspecified deep veins of left lower extremity Cognitive communication deficit Arthropathy Bipolar 1 disorder Muscle weakness (generalized) Hepatitis Smoker Asthma IVDU (intravenous drug user) Polysubstance (including opioids) dependence, daily use Opiate dependence Depression Alcohol abuse Home Medications ?Medication ?Instructions ?Recorded ?Last Taken ?Type albuterol sulfate 90 mcg/actuation 2 puff inhalation Q4H PRN SOB 05/17/23 Unknown History aerosol inhaler (Ventolin HFA) amitriptyline 10 mg tablet 10 mg PO QHS 05/17/23 Unknown History baclofen 20 mg tablet 20 mg PO DAILY 05/17/23 Unknown History fluorometholone 0.1 % eye 1 drp ophthalmic (eye) BID 05/17/23 Unknown History drops,suspension gabapentin 800 mg tablet 800 mg PO 4X/DAY 05/17/23 Unknown History ibuprofen 800 mg tablet 800 mg PO Q8H PRN pain 05/17/23 Unknown History loratadine 10 mg tablet 10 mg PO DAILY PRN allergy symptoms 05/17/23 Unknown History nystatin 100,000 unit/gram topical 1 applic topical BID 05/17/23 Unknown History powder promethazine 25 mg tablet 12.5 mg PO Q4H PRN allergy symptoms 05/17/23 Unknown History atorvastatin 20 mg tablet 20 mg PO DAILY 01/19/24 Unknown History coenzyme Q10 100 mg capsule 100 mg PO DAILY 01/19/24 Unknown History multivitamin 1 tab PO DAILY 01/19/24 Unknown History pantoprazole 40 mg tablet,delayed 40 mg PO DAILY 01/19/24 Unknown History release acetaminophen 325 mg tablet 650 mg PO Q6H PRN fever or pain 03/19/25 Unknown History aluminum hydrox-magnesium carb 95 30 ml PO Q4H PRN dyspepsia 03/19/25 Unknown History mg-358 mg/15 mL oral suspension (Acid Gone Antacid) benztropine 0.5 mg tablet 0.5 mg PO QHS 03/19/25 Unknown History dextrose 40 % oral gel (Glutose-15) 15 g PO Q15M PRN hypoglycemia 03/19/25 Unknown History diazepam 10 mg tablet 10 mg PO DAILY PRN alcohol 03/19/25 Unknown History withdrawal diazepam 10 mg tablet 10 mg PO QHS 03/19/25 Unknown History duloxetine 60 mg capsule,delayed 120 mg PO BID 03/19/25 Unknown History release furosemide 20 mg tablet 20 mg PO DAILY 03/19/25 Unknown History glucagon 1 mg solution for 1 mg IM Q20M PRN hypoglycemia 03/19/25 Unknown History injection (Glucagon Emergency Kit) guaifenesin 100 mg/5 mL oral 200 mg PO Q4H PRN congestion 03/19/25 Unknown History liquid (Adult Tussin Chest Congestion) loperamide 2 mg capsule 2 mg PO Q6H PRN loose stool 03/19/25 Unknown History (Anti-Diarrheal (loperamide)) melatonin 5 mg tablet 10 mg PO QHS 03/19/25 Unknown History oxybutynin chloride 15 mg 15 mg PO DAILY 03/19/25 Unknown History tablet,extended release 24 hr polyvinyl alcohol-povidone 0.5 1 - 2 drp EACH EYE Q1H PRN dry 03/19/25 Unknown History %-0.6 % eye drops (Clear Eyes eye(s) Natural Tears) sennosides 8.6 mg-docusate sodium 2 tab-cap PO BID 03/19/25 Unknown History 50 mg capsule (Senna Plus) sulfamethoxazole 800 1 tab PO BID #6 TABLETS 03/19/25 Unknown Rx mg-trimethoprim 160 mg tablet cephalexin 500 mg capsule 500 mg PO BID 5 days #10 caps 04/01/25 Unknown Rx cephalexin 500 mg capsule 500 mg PO Q8H 7 days #21 caps 04/12/25 Unknown Rx cephalexin 500 mg capsule 500 mg PO Q6 #28 CAPSULES 06/05/25 Unknown Rx Allergy/AdvReac Type Severity Reaction Status Date / Time hydrocodone bitartrate (From Allergy Itching Verified 06/05/25 14:21 Vicodin) Surgical History Chronic suprapubic catheter History of cholecystectomy Social History household members: none Smoking Status: Current every day smoker tobacco type: cigarettes ROS ROS ED Constitutional Constitutional ED: Denies chills, fever(s), subjective, sweats or weight loss Gastrointestinal Gastrointestinal: Denies abdominal pain, nausea or vomiting Genitourinary Genitourinary ED: Reports other Details: Dislodged suprapubic catheter ; Denies dysuria, hematuria or urinary frequency Musculoskeletal Musculoskeletal: Denies back pain Hematologic/Lymphatic Hematologic/Lymphatic: Reports systems reviewed and no addt'l complaints, except as documented EXAM Physical Exam Const Vital Signs: 06/05/25 14:20 Temperature 99.2 F H Temperature Source Oral Pulse Rate 101 H Respiratory Rate 18 Blood Pressure 118/92 H Blood Pressure Mean 100 Pulse Ox 98 Oxygen Delivery Method Room Air Positive well nourished and well developed General Appearance ED: well developed HEENT Reports moist mucous membranes HEENT Narrative: Head is atraumatic normocephalic. Eyes PERRL and EOMs intact bilaterally Resp normal respiratory effort Cardio regular rate and regular rhythm GI GI Narrative: Surgical scar noted. Suprapubic catheter fistula tract noted. There is no urine noted. She does have panniculus and there is evidence of a yeast infection under the panniculus Back/Spine no CVA tenderness Neuro oriented x3, CN's II-XII intact bilaterally and No no sensory deficits noted Motor Exam: Negative for strength 5/5 throughout Psych mental status grossly normal Skin Skin Narrative: Ban infection of her panniculus MDM MDM MDM Narrative Medical decision making narrative: Patient was prepped draped sterile manner. Attempt to place a suprapubic catheter with prior size was unsuccessful. Used a smaller catheter that came with a Unsuccessful. Nurses been asked to obtain urethral sounds to determine if I can dilate this otherwise she will need transfer since we have no urologist on and we will transfer to [facility] where her urologist practices. History & Record Review Additional record(s) reviewed:: Prior outpatient record and Prior ED visit Lab Data Attestation: I reviewed the patient's lab results. Lab results narrative: Urine is turbid. Macro was positive for ketones, blood, nitrites and leukoesterase. Patient states her hide is on the way and cannot wait any longer. Suspect patient does have an infection. Will place on cephalexin. Labs: Laboratory Results - last 24 hr 06/05/25 16:20 Urine Color Yellow Urine Clarity Turbid Urine pH 6.0 Ur Specific Lula 1.020 Urine Protein 100 H Urine Glucose (UA) Normal Urine Ketones 50 H Urine Occult Blood 250 H Urine Nitrite Positive H Urine Bilirubin Negative Urine Urobilinogen Normal Ur Leukocyte Esterase 500 H Treatment and Re-Evaluation :: I was informed by nurse that she refused the IV to for Rocephin. She received p.o. cephalexin. Awaiting results of UA to determine if she needs more than 1 dose. Procedures Other Procedures Procedure(s): Since I was unable to pass a 24 Maltese and 18 Maltese Schmitt obtain Lolita urethral sounds. Initially started with 12 Maltese. This was tight. Dilated her to 26 Maltese sounds. 24 Maltese Schmitt was placed which she had prior to her traumatic dislodged meant. Will send urine for UA. She said she was instrumented she was treated with 1 g of Rocephin. Will also send urine culture. If the urine reveals evidence of infection antibiotics can be called in. Replacement of suprapubic catheter with 24 Maltese Schmitt after dilation of Ostomy with Mackintosh urethral sounds Discharge Plan Triage Chief Complaint: Schmitt C/O ED Provider: Bradly Eden Dx/Rx/DC Orders Clinical Impression: Mechanical complication of suprapubic catheter, Complicated urinary tract infection, Sinus tachycardia Instructions: Catheter-Linked Urinary Tract ... Prescriptions: New cephalexin 500 mg capsule 500 mg PO Q6 Qty: 28 0RF No Action albuterol sulfate [Ventolin HFA] 90 mcg/actuation HFA aerosol inhaler 2 puff INHALATION Q4H PRN (Reason: SOB) amitriptyline 10 mg tablet 10 mg PO QHS baclofen 20 mg tablet 20 mg PO DAILY fluorometholone 0.1 % drops,suspension 1 drp ophthalmic (eye) BID gabapentin 800 mg tablet 800 mg PO 4X/DAY ibuprofen 800 mg tablet 800 mg PO Q8H PRN (Reason: pain) Rx Instructions: WITH FOOD OR MILK loratadine 10 mg tablet 10 mg PO DAILY PRN (Reason: allergy symptoms) nystatin 100,000 unit/gram powder 1 applic TOPICAL BID promethazine 25 mg tablet 12.5 mg PO Q4H PRN (Reason: allergy symptoms) multivitamin Tablet 1 tab PO DAILY atorvastatin 20 mg tablet 20 mg PO DAILY pantoprazole 40 mg tablet,delayed release (DR/EC) 40 mg PO DAILY coenzyme Q10 100 mg capsule 100 mg PO DAILY benztropine 0.5 mg tablet 0.5 mg PO QHS diazepam 10 mg tablet 10 mg PO QHS duloxetine 60 mg capsule,delayed release(DR/EC) 120 mg PO BID furosemide 20 mg tablet 20 mg PO DAILY guaifenesin [Adult Tussin Chest Congestion] 100 mg/5 mL liquid 200 mg PO Q4H PRN (Reason: congestion) Glucagon Emergency Kit (human) 1 mg recon soln 1 mg IM Q20M PRN (Reason: hypoglycemia) Rx Instructions: until target blood sugar attained dextrose [Glutose-15] 40 % gel 15 g PO Q15M PRN (Reason: hypoglycemia) Rx Instructions: until symptoms of low blood sugar are controlled Acid Gone Antacid 95-358 mg/15 mL suspension 30 ml PO Q4H PRN (Reason: dyspepsia) melatonin 5 mg tablet 10 mg PO QHS oxybutynin chloride 15 mg tablet extended release 24hr 15 mg PO DAILY Senna Plus 8.6-50 mg capsule 2 tab-cap PO BID loperamide [Anti-Diarrheal (loperamide)] 2 mg capsule 2 mg PO Q6H PRN (Reason: loose stool) Rx Instructions: administer after each loose stool until symptoms controlled; do not exceed 8 mg per 24 hrs diazepam 10 mg tablet 10 mg PO DAILY PRN (Reason: alcohol withdrawal) Rx Instructions: IN ADDITION TO ROUTINE DOSE Clear Eyes Natural Tears 0.5-0.6 % drops 1 - 2 drp EACH EYE Q1H PRN (Reason: dry eye(s)) acetaminophen 325 mg tablet 650 mg PO Q6H PRN (Reason: fever or pain) sulfamethoxazole-trimethoprim 800-160 mg tablet 1 tab PO BID Qty: 6 0RF cephalexin 500 mg capsule 500 mg PO BID 5 Days Qty: 10 0RF cephalexin 500 mg capsule 500 mg PO Q8H 7 Days Qty: 21 0RF Primary Care Provider: Taye Pinto Referrals: Taye Pinto, [Primary Care Provider] - 3-5 Days if not improving Activity Restrictions/Additional Instructions: 1. Take antibiotics until gone. Print Language: Czech Disposition Disposition: Home, Self Care
--- OUTSIDE RECORDS SUMMARY | 2025-06-05 14:55 | XMS RPT_ITS | CCD ---
Author Organization [facility] Care Team Providers Care Engineering Group Leader Name Role Phone Lucretia Peña Unavailable DARREL VELOZ Primary Care Unavailable SAM PLATA Attending Unavailable SAM PLATA Referring Unavailable DARREL VELOZ Primary Care Unavailable KRUGERKWASIO Referring Unavailable CONSULT, NEUROLOGY Consulting Unavailable SAM PLATA Admitting Unavailable SAM PLATA Attending Unavailable Unavailable Primary Care Provider Unavailabl e Unavailable Primary Care Provider Unavailabl e Unavailable Primary Care Provider Unavailabl e Darrel Veloz Primary Care Provider Geoff Alcantar MD Unavailable DARREL VELOZ Primary Care Unavailable GEOFF ALCANTAR Attending Unavailable Unavailable Primary Care Provider Unavailabl e Darrel Veloz DO Primary Care Provider Darrel Veloz Primary Care Provider Dr. Darrel Veloz DO Primary Care Provider Dr. Nick Angelo DO Emergency Provider [phone] Dr. Nick Angelo DO Attending Provider Dr. Renato Henson MD Emergency Provider [phone] Dr. Samuel Hodges DO Referring Provider Dr. Samuel Hodges DO Emergency Provider Physician, No Pcp Primary Care Provider Britany Henson MD, Dr. Gross Attending Provider Dr. Samuel Hodges DO Attending Provider [phone] PHYSICIAN, NO PCP Primary Care Unavailable KALEY FOUNTAIN~[phone] Atte nding Unavailable ROSELIA, DARREL A Primary Care Unavailable ROSELIA, DRAREL A Primary Care Unavailable ROSELIA, DARREL A Primary Care Unavailable ROSELIA, DARREL A Primary Care Unavailable MAXWELL, RUSH Attending Unavailable ROSELIA, DARREL A Primary Care Unavailable ROSELIA, DARREL A Primary Care Unavailable ROSELIA, DARREL A Primary Care Unavailable MAXWELL, RUSH Referring Unavailable ROSELIA, DARREL A Primary Care Unavailable ROSELIA, DARREL A Primary Care Unavailable ROSELIA, DARREL A Primary Care Unavailable Roselia, Darrel Consulting Unavailable Roselia, Darrel Primary Care Unavailable Roselia, Darrel Referring Unavailable Homar Wiley Attending Unavailable Roselia, Darrel Attending Unavailable Roselia, Darrel Primary Care Unavailable Roselia, Darrel Referring Unavailable Roselia, Darrel Attending Unavailable Roselia, Darrel Primary Care Unavailable Roselia, Darrel Primary Care Unavailable Roselia, Darrel Attending Unavailable Roselia, Darrel Primary Care Unavailable Renato Henson Attending Unavailable Roselia, Darrel Primary Care Unavailable Nick Angelo Attending Unavailable Roselia, Darrel Primary Care Unavailable Souleymane Fragoso Attending Unavailable Roselia, Darrel Primary Care Unavailable Renato Henson Attending Unavailable Samuel Hodges Referring Unavailable Samuel Hodges Attending Unavailable Roselia, Darrel Primary Care Unavailable Allergies Allergy Classification Reported Allergen(s) Allergy Type Date of Onset Reaction(s) Facility (1 source) acetaminophen / HYDROcodone drug allergy Itchy rash [facility] [employer] [facility] Work Phone: (20 sources) Acetaminophen / HYDROcodone; Translations: [HYDROCODONE-ACET AMINOPHEN] Drug Allergy 5 Vomiting [facility] Work Phone: (20 sources) traMADol; Translations: [TRAMADOL HCL] Drug Allergy 5 Mental Status Change [facility] (5 sources) HYDROcodone; Translations: [hydrocodone bitartrate] Drug Allergy 1 Itching [facility] (14 sources) traMADol Drug Allergy 5 [facility] Medications Current Medications Medication Drug Class(es) Dates [...] as needed for fever (specify) or pain. [id number] actuat albuterol 0.09 mg/actuat metered dose [...] mg/ml oral suspension (4 sources) Start: 03-19-20 25 take 1 mL by mouth every four hours as needed Aluminum Hydrox-Magnesium Carb (Acid Gone Antacid) 95-358 mg/15 mL suspension Active 30 mL PO Q4H as needed for dyspepsia March 19, 2025 12:00am aluminum hydroxide 40 mg/ml / magnesium hydroxide 40 mg/ml / simethicone 4 mg/ml oral suspension (20 sources) Start: 02-17-20 22 take 30 mL by mouth every four [...] oral tablet (20 sources) Tricyclic Antidepressant Start: 11-07-19 End: 12-08-19 take 1 tablet by mouth at bedtime Amitriptyline 10 mg tablet Active 10 mg PO AT BEDTIME May 17, 2023 12:00am Comment on above: Take 1 tablet by emma th daily at bedtime. ARTIFICIAL TEAR OP (13 sources) ARTIFICIAL TEAR OP Administer 1 drop into affected eye(s). 0 Active atorvastatin 20 mg oral tablet (5 sources) HMG-CoA Reductase Inhibitor Start: 01-19-20 take 1 tablet by mouth once daily Atorvastatin 20 mg tablet Active 20 mg PO DAILY January 19, 2024 12:00am baclofen 20 mg oral tablet (20 sources) gamma-Aminobutyric Acid-ergic Agonist Start: 05-17-20 take 1 tablet by mouth once daily [...] on above: Take 1 tablet by emma twice daily with meals. cephalexin 500 mg oral capsule (20 sources) Cephalosporin Antibacterial Start: 04-12-20 take 1 capsule by mouth every eight hours Cephalexin 500 mg capsule Active 500 mg PO Q8H 21 7 April 12, 2025 12:00am Start: 04-01-2025 take 1 capsule by mo [facility] twice daily Cephalexin 500 mg capsule Active 500 mg PO TWICE A DAY 10 5 April 01, 2025 12:00am Start: 01-24-2024 End: [...] 13, 2017 12:00am August 21, 2018 2:38pm clonazePAM 0.5 mg oral tablet (20 sources) Benzodiazepine Start: 04-26-2022 End: 03-19-2025 clonazePAM (KLONOPIN) 0.5 mg tablet Indications: Spasticity Take 0.5mg Klonopin QHS PRN 30 tablet 3 04/26/2022 Active Comment on above: Take 0.5mg Klonopin QHS PRN cranberry fruit (CRANBERRY) 450 mg tab (20 sources) take 1 tablet by mouth once daily cranberry fruit (CRANBERRY) 450 mg [...] mg by mouth before bedtime. 0 Active dantrolene sodium 25 mg oral capsule (20 sources) Skeletal Muscle Relaxant Start: 04-26-20 End: 03-19-20 take 1 capsule by mouth twice daily dantrolene (DANTRIUM) 25 mg capsule Take 1 capsule by mouth twice daily. 04/26/2022 Active Comment on above: Take 1 capsule by [facility] twice daily. dexamethasone 6 mg oral tablet (13 sources) [...] 12:00am Start: 06-14-2024 [facility]four [facility] as needed diazePAM (VALIUM) 5 mg tablet Take 5 mg by mouth at bedtime as needed. 06/14/2024 Active docusate sodium 50 mg / sennosides, detention 8.6 mg oral capsule (4 sources) Start: 03-19-2025 Sennosides-Docusate Sodium (Senna Plus) 8.6-50 mg capsule Active 2 NMA PO TWICE A DAY March 19, 2025 12:00am Drainage Bag 2,000 mL misc (18 sources) Start: 12-13-2023 Drainage Bag 2,000 mL [...] 1:59pm Start: 02-16-2022 take 1 capsule by [facility] twice daily DULoxetine (DRIZALMA SPRINKLE) 30 mg capsule, delayed release sprinkle Take 1 capsule (30 mg) by mouth twice daily. 02/16/2022 Active Comment on above: Take 1 capsule (30 m g) by mouth twice daily. famotidine 20 mg oral tablet (20 sources) Histamine-2 Receptor Antagonist Start: 022 End: 025 take 1 tablet by mouth twice daily famotidine (PEPCID) 20 mg tablet Take 1 tablet by mouth twice daily. 02/16/2022 Active Comment on above: Take 1 tablet by emma twice daily. fluconazole 150 mg oral tablet (13 sources) Azole Antifungal fluconazole (Di flucan) 150 MG tablet Take 200 mg by mouth daily. 0 Active fluorometholone 1 mg/ml ophthalmic suspension (20 sources) Corticosteroid Start: Fluorometholone 0.1 % drops,suspension Active 1 NMA [...] (20 sources) Anti-epileptic Agent Start: 05-17-2023 take 800 mg by mouth at bedtime Gabapentin Active 800 MG PO AT BEDTIME May 17, 2023 12:00am Start: 05-17-2023 take 1 tablet by emma th four times daily Gabapentin 800 mg tablet Active 800 mg PO 4 TIMES DAILY May 17, 2023 12:00am Start: 05-17-2023 End: [...] times daily as needed for pain GABAPENTIN [id number] Darrel Jennifer Roselia COKER Comment on above: Take 1 capsule by mo [facility] three times a day and 2 capsules [...] 20 mg/ml oral solution (20 sources) Start: 2 take 200 mg by mouth every four hours as needed guaiFENesin (ROBITUSSIN) 100 mg/5 mL syrup Take 10 mL by mouth every 4 hours as needed for cough. 02/16/2022 Active Comment on above: Take 10 mL by mouth every 4 hours as needed for cough. ibuprofen 800 mg oral tablet (20 sources) Nonsteroidal Anti-inflammatory Drug Start: 3 take 1 tablet by mouth every eight [...] 4 tablets three times a day IBUPROFEN [id number] Darrel Jennifer Veloz Start: 09-11-2005 End: 02-16-2022 MOTRIN 800 MG [...] take 1 tablet by mouth once daily loratadine (CLARITIN) 10 mg tablet Take 1 tablet by mouth once daily. 02/16/2022 Active Comment [...] {tbl} PO DAILY January 19, 2024 12:00am [place] (Nk) (4 sources) Start: 02-06-2020 [place] (Nk) Active February 06, 2020 12:00am Start: 02-06-2020 [place] (Nk) A ctive February 05, 2020 11:00pm [...] DAILY May 17, 2023 12:00am Start: 02-16-2022 nystatin (MYCO STATIN) powder Apply 1 application to affected area twice daily. 02/16/2022 Active Comment on above: Apply 1 application to affected area twice daily. 24 hr oxybutynin chloride 15 mg extended release oral tablet (20 sources) Cholinergic Muscarinic Antagonist Start: 08-31-2024 take 1 tablet by mouth once daily oxybutynin ER (DITROPAN XL) 15 mg 24 hr Extended Rel Tab Indications: Painful bladder spasm Take 1 tablet by mouth once daily. 90 tablet 3 08/31/2024 Active Start: 08-25-2024 take 1 tablet by emma [...] tablet (5 sources) Proton Pump Inhibitor Start: 4 take 1 tablet by mouth once daily Pantoprazole 40 mg tablet,delayed release (DR/EC) Active 40 mg PO DAILY January 19, 2024 12:00am polyvinyl alcohol 0.005 ml/ml / povidone 6 mg/ml ophthalmic solution (20 sources) Start: 5 Polyvinyl Alcohol-Povidone (Clear Eyes Natural Tears) 0.5-0.6 [...] 4 hours as needed for nausea/vomiting. sennosides, detention 8.6 mg oral tablet (20 sources) Start: 2021 take 2 tablets by mouth once daily senna (SENNA) 8.6 mg tab Take 2 tablets by mouth once daily. 02/16/2022 Active Comment on above: Take 2 tablets by mo nyh once daily. sodium chloride 0.154 meq/ml irrigation [...] 1 T ABLET PO TWICE A DAY 14 January 19, 2024 12:00am Start: 06-13-2017 End: [...] every 4 hours for severe pain OXYCODONE-ACETAMINOPHEN [id number] Darrel Veloz DO Start: 04-08-2015 End: 04-16-2015 OXYCODONE-ACETAMINOPHEN 10-3 25 MG TABS One tablet as needed every 4 hours for severe pain up to 5 tablets daily OXYCODONE-ACETAMINOPHEN [id number] Darrel Veloz DO Start: 04-01-2015 End: 04-06-2015 take 1 tablet by mouth every four hours as needed for pain OXYCODONE-ACETAMINOPHEN 7.5-325 MG TABS One tablet by mouth every 4 hours as needed for severe pain OXYCODONE-ACETAMINOPHEN [id number] Darrel Veloz DO azithromycin 250 mg oral tablet (1 source) Macrolide Antimicrobial Start: 10-28-2015 End: 11-02-2015 take 2 tablets by mouth once, then take 1 tablet by mouth once daily, then take 2-5 tablets by mouth AZITHROMYCIN 250 MG TABS 2 PO on day 1 then 1 PO daily on days 2-5 AZITHROMYCIN [id number] Darrel Veloz DO onabotulinumtoxina 100 unt injection [...] BUPROPION HCL ER (SMOKING DET) 150 MG [id number] One tablet by mouth twice daily for smoking cessation BUPROPION HCL (SMOKING DETER) [id number] Darrel Veloz DO cyclobenzaprine hydrochloride 10 mg oral tablet (3 sources) Muscle Relaxant Start: 04-08-2015 take 1 tablet by mouth once daily as needed for pain CYCLOBENZAPRINE HCL 10 MG TABS One tablet by mouth daily at night as needed for muscle pain CYCLOBENZAPRINE HCL [id number] Darrel Veloz DO Start: 04-01-2015 End: 04-08-2015 CYCLOBENZAPRINE HCL 5 MG TAB S 1-2 tablets three times a day as needed CYCLOBENZAPRINE HCL [id number] Darrel Veloz DO docusate sodium 100 mg oral tablet (20 [...] Take 100 mg by mouth twice daily. LORazepam 1 mg oral tablet (1 source) Benzodiazepine Start: 09-19-20 05 End: 02-17-20 22 ATIVAN 1 MG TAB Take one(1) tablet daily at bedtime. 30 2 09/19/2005 02/16/2022 Discontinued (Discontinued by another Health Care Provider) Comment on above: Take one(1) tablet d aily at bedtime. methocarbamol 500 mg oral tablet (20 sources) Muscle Relaxant Start: 05-17-20 23 take 1000 mg by mouth three times daily Methocarbamol Active 1000 MG PO THREE TIMES A DAY May 17, 2023 12:00am Start: 02-16-2022 End: 03-19-2025 take 2 tablets by mouth three times daily methocarbamol (ROBAXIN) 500 mg tablet Take 2 tablets by mouth three times daily. 02/16/2022 Active take 2 tablets by mo uth once daily as needed for muscle spasms [...] tablet by mouth four times daily NAPROXEN [id number] Linus Deng nicotine 2 mg chewing gum (1 source) Cholinergic Nicotinic Agonist Start: 06-08-20 15 COMMIT 2 MG LOZG 1 PO hourly as needed for cravings NICOTINE POLACRILEX [id number] Darrel Veloz DO oxyCODONE hydrochloride 5 mg oral tablet (20 sources) Opioid Agonist Start: 12-07-19 24 End: 03-19-20 25 take 1 tablet by mouth every six [...] 20 meq PO TWICE A DAY 10 September 25, 2024 1:00am March 19, 2025 [...] End: 03-19-2025 take 2 tablets by mouth once daily at bedtime tiZANidine (ZANAFLEX) 4 mg tablet Take 2 tablets by mouth daily at bedtime. 30 tablet 04/26/2022 Active Start: 03-21-2022 take 1 tablet by emma [...] by mouth four times daily TRAMADOL HCL [id number] Darrel Veloz DO Start: 09-11-2005 End: 02-16-2022 [...] Chronic Complication of device; implant or graft (2 sources) Disorder of cystostomy catheter; Translations: [Breakdown (mechanical) of cystostomy catheter, initial encounter] Onset: 05-21-2025 04-12-2025 Episodic E Codes: Fall (20 sources) Fall in halfway; Translations: [Unspecified fall, initial encounter] 02-15-2023 Episodic Epilepsy; convulsions (20 sources) Generalized convulsive epilepsy; Translations: [Generalized idiopathic epilepsy and epileptic syndromes, not intractable, without status epilepticus] Onset: 09-19-2005 09-19-2005 Chronic Esophageal disorders (8 sources) Gastroesophageal reflux disease without esophagitis; Translations: [Gastro-esophageal reflux disease without esophagitis] Onset: 07-18-2023 3 Chronic Fever of unknown origin (15 sources) Pyrexia of unknown origin; Translations: [Fever, unspecified] 01-19-2021 Episodic Fracture of lower limb (18 [...] attention to cystostomy] Onset: 04-08-2025 01-19-2024 Chronic Hepatitis (14 sources) Chronic hepatitis C; Translations: [...] vagina; Translations: [Candidiasis of vagina] 01-19-2024 Episodic Open wounds of head; neck; and [...] 08-17-2019 10-26-2019 Episodic Other nervous system disorders (4 sources) Abnormal [...] and perineal pain] Onset: 05-09-2015 05-09-2015 Episodic Fluid and electrolyte disorders (20 sources) Acute hyponatremia; Translations: [Hypo-osmolality and hyponatremia] Onset: 09-28-2024 01-19-2021 Episodic Genitourinary symptoms and ill-defined conditions (5 sources) Blood in urine; Translations: [Hematuria, unspecified] Onset: 02-02-2025 06-30-2024 Episodic Nonspecific chest pain (20 sources) Chest pain; Translations: [Chest pain, unspecified] Onset: 11-02-2024 04-12-2020 Episodic Other aftercare (1 source) Follow-up orthopedic assessment; Translations: [Encounter for other orthopedic aftercare] Onset: 08-13-2014 08-16-2014 Episodic Other circulatory disease (1 source) Hypotension, unspecified; Translations: [Hypotension, unspecified] Onset: 10-15-2024 Episodic Other FURNACE MASON infection and poliomyelitis (20 sources) Spinal epidural [...] Test Name Value Interpretation Reference Range Facility [facility] 05-04-2025 CNNURSE Nurse Visit (UROLWS) -------- KATARZYNA VARGAS ([id number]) 1975 F UPA Date Time Provider Department 05/04/25 3:40 PM [facility] During your visit today, we recorded the following information about you: Bambi Thomas LPN 05/04/2025 4:32 PM Signed Verified name and date of . CC Supra pubic catheter in Place HPI: Katarzyna Vargas is a 50 year old female. The patient is here now for a supra pubic catheter change with diagnosis of atonic neurogenic bladder. Procedure: Performed a catheter change. Removed fluid from balloon in the schmitt. The indwelling supra pubic schmitt size [address] latex catheter was removed with catheter tip intact without difficulty. Patient reports having had catheter changed while in rehab in [place]. Inserted [address] catheter using aseptic technique. Irrigated with 60 mL 0.9% sodium chloride without difficulties. Very large amount of yellow urine with sediment throughout return noted. Bulb inflated with 20 mLs prefilled syringe- sterile water. Covered with t-sponge. Patient does not want secured with statlock. The patient tolerated the procedure well. Assessment/Plan: Successful catheter change. Return for catheter changes as planned. Bambi Thomas LPN Allergies As of Date: 05/04/2025 Noted Allergy Reaction ULTRAM (TRAMADOL HCL) 09/21/2005 1 - Mental Status Change Comments: SEIZURE VICODIN (HYDROCODONE-ACETAMINOPH E*09/11/2005 11 - Vomiting Date Reviewed: 02/02/2025 Reviewed by: Yessy Mares MA - Fully Assessed Reason for Visit: Nurse Visit [792] SPT Tube change [Other] Primary Visit Diagnosis:Neurogenic bladder [N31.9] Prescriptions as of 05/04/2025 - oxybutynin ER (DITROPAN XL) 15 mg [...] methocarbamol (ROBAXIN) 500 mg tablet Take 2 (more content not included)... Normal [facility] Urine Cultureon 04-16-2025 [facility] #2 Susceptibility no t normally performed on this organism Pseudomonas aeruginosa [place] Count 11,000-25,000 Corynebacterium striatum Corynebacterium striatum EFAC [place] Count 25,000-50,000 Enterococcus faecalis Cefepime Islt CHLOE 0.5 Ciprofloxacin Islt CHLOE <=0.06 S levoFLOXacin Islt CHLOE <=0.12 Meropenem Islt CHLOE 0.5 S Pip+Tazo Islt CHLOE <=4 S Enterococcus faecalis: REACTION Ampicillin Islt CHLOE <=2 S Ciprofloxacin Islt CHLOE >=8 R Gentamicin Synergy Susc Islt SYN-R levoFLOXacin Islt CHLOE >=8 R Linezolid Islt CHLOE 2 S Nitrofurantoin Islt CHLOE <=16 S Streptomycin High Pot Susc Islt SYN-S S Tetracycline Islt CHLOE >=16 R Vancomycin Islt CHLOE 1 S Normal [facility] Comment on above: Performed By: #### L 400.0001 #### [facility] [address] [place], [place], [id number] Absolute lymphocyte countOrd ered By: Renato Henson on 04-12-2025 Lymphocytes Auto (Unsp spec) [#/Vol] 2.22 10*3/uL 0.83-4.51 [facility] Absolute neutrophil countOrd ered By: Renato Henson on 04-12-2025 Neutrophils (Bld) [#/Vol] 6.2 10*3/uL 2.0-7.7 [facility] Anion gap in Serum or Plasma Ordered By: Renato Henson on 04-12-2025 Anion gap [Moles/Vol] 12 mmol/L 5-15 [facility] Automated lymphocyte count a s percentage of total leukocytesOrdered By: Renato Henson on 04-12-2025 Lymphocytes/100 WBC Auto (Unsp spec) 24.0 % 19-41 [facility] BUN/creatinine ratioOrdered By: Renato Henson on 04-12-2025 Urea nitrogen/Creatinine [Mass ratio] 17.2 mg/mg 10- [facility] Basic Metabolic Profile (BMP )on 04-12-2025 BUN/CRE 17.2 RATIO Normal - [facility] Comment on above: Performed By: #### L 500.2500, L100.0100 #### [facility] [address] [place], [place], [id number] Calcium [Mass/Vol] 9.0 mg/dL Normal 7.6-11.0 [facility] Comment on above: Performed By: #### L 500.2500, L100.0100 #### [facility] [address] [place], [address] Chloride [Moles/Vol] 101 mmol/L Normal 98-108 [facility] Comment on above: Performed By: #### L 500.2500, L100.0100 #### [facility] [address] [place], [address] CO2 [Moles/Vol] 26.0 mmol/L Normal 21.0-32.0 [facility] Comment on above: Performed By: #### L 500.2500, L100.0100 #### [facility] [address] [place], [address] Creatinine [Mass/Vol] 0.65 mg/dL Low 0.70-1.20 [facility] Comment on above: Performed By: #### L 500.2500, L100.0100 #### [facility] [address] [place], [address] ECRCL 117.25 ml/min Normal 50-250 [facility] Comment on above: Performed By: #### L 500.2500, L100.0100 #### [facility] [address] [place], [address] GAP 12 Normal 5-15 [facility] Comment on above: Performed By: #### L 500.2500, L100.0100 #### [facility] [address] [place], [address] GFR/1.73 sq M.predicted among non-blacks MDRD (S/P/Bld) [Vol rate/Area] 108 mL/min/{1.73_m2} Normal >60 [facility] Comment on above: Result Comment: mL/m in/1.73m2 CKD-EPI Creatinine Equation (2020) Performed By: #### L 500.2500, L100.0100 #### [facility] [address] [place], [address] Glucose [Mass/Vol] 101 mg/dL High 70-99 [facility] Comment on above: Performed By: #### L 500.2500, L100.0100 #### [facility] [address] [place], [address] Potassium [Moles/Vol] 3.2 mmol/L Low 3.3-5.1 [facility] Comment on above: Performed By: #### L 500.2500, L100.0100 #### [facility] [address] [place], [address] Sodium [Moles/Vol] 139 mmol/L Normal 133-145 [facility] Comment on above: Performed By: #### L 500.2500, L100.0100 #### [facility] [address] [place], [address] Urea nitrogen [Mass/Vol] 11 mg/dL Normal 4-19 [facility] Comment on above: Performed By: #### L 500.2500, L100.0100 #### [facility] [address] [place], [address] Basophil percentageOrdered B y: Renato Henson on 04-12-2025 Basophils/100 WBC (Bld) 0.6 % 0-1 [facility] Bilirubin Test strip Ql (U)O rdered By: Renato Henson on 04-12-2025 Bilirubin Ql (U) Negative Negative [facility] CBC W/Diff, Automatedon 07-2 Absolute Lymph 2.22 X10 3/uL Normal 0.83-4.51 [facility] Comment on above: Performed By: #### L 500.2500, L100.0100 #### [facility] [address] [place], [address] Absolute Neut 6.2 X10 3/uL Normal 2.0-7.7 [facility] Comment on above: Performed By: #### L 500.2500, L100.0100 #### [facility] [address] [place], [address] Basophils/100 WBC (Bld) 0.6 % Normal 0-1 [facility] Comment on above: Performed By: #### L 500.2500, L100.0100 #### [facility] [address] [place], [address] Eosinophils/100 WBC (Bld) 2.5 % Normal 0-5 [facility] Comment on above: Performed By: #### L 500.2500, L100.0100 #### [facility] [address] [place], [address] Erythrocyte distribution width (RBC) [Ratio] 13.0 % Normal 11.6-14.6 [facility] Comment on above: Performed By: #### L 500.2500, L100.0100 #### [facility] [address] [place], [address] Hematocrit (Bld) [Volume fraction] 34.3 % Low 37-47 [facility] Comment on above: Performed By: #### L 500.2500, L100.0100 #### [facility] [address] [place], [address] Hemoglobin (Bld) [Mass/Vol] 11.7 g/dL Low 12.0-15.0 [facility] Comment on above: Performed By: #### L 500.2500, L100.0100 #### [facility] [address] [place], [address] IG% 0.500 Normal 0.0-0.9 [facility] Comment on above: Result Comment: IG% - Immature Granulocytes (promyelocytes, myelocytes and metamyelocytes) > 1% indicates that a LEFT SHIFT is Present. Performed By: #### L 500.2500, L100.0100 #### [facility] [address] [place], [address] Lymphocytes/100 WBC (Bld) 24.0 % Normal 19-41 [facility] Comment on above: Performed By: #### L 500.2500, L100.0100 #### [facility] [address] [place], [address] MCH (RBC) [Entitic mass] 32.9 pg High 27.0-32.0 [facility] Comment on above: Performed By: #### L 500.2500, L100.0100 #### [facility] [address] [place], [address] MCHC (RBC) [Mass/Vol] 34.1 g/dL Normal 32-36 [facility] Comment on above: Performed By: #### L 500.2500, L100.0100 #### [facility] [address] [place], [address] MCV (RBC) [Entitic vol] 96.3 fL Normal 81-99 [facility] Comment on above: Performed By: #### L 500.2500, L100.0100 #### [facility] [address] [place], [address] Monocytes/100 WBC (Bld) 5.6 % Normal 0-10 [facility] Comment on above: Performed By: #### L 500.2500, L100.0100 #### [facility] [address] [place], [address] Neutrophils/100 WBC (Bld) 66.8 % Normal 47-70 [facility] Comment on above: Performed By: #### L 500.2500, L100.0100 #### [facility] [address] [place], [address] Nucleated RBC (Bld) [#/Vol] 0 10*3/uL Normal 0-5 [facility] Comment on above: Performed By: #### L 500.2500, L100.0100 #### [facility] [address] [place], [address] Platelet mean volume (Bld) [Entitic vol] 10.0 fL Normal 6.2-12.0 [facility] Comment on above: Performed By: #### L 500.2500, L100.0100 #### [facility] [address] [place], [address] Platelets (Bld) [#/Vol] 260 10*3/uL Normal 150-450 [facility] Comment on above: Performed By: #### L 500.2500, L100.0100 #### [facility] [address] [place], [address] RBC (Bld) [#/Vol] 3.56 10*6/uL Low 4.2-5.4 [facility] Comment on above: Performed By: #### L 500.2500, L100.0100 #### [facility] [address] [place], [address] RDW SD 45.2 fl High 35.1-43.9 [facility] Comment on above: Performed By: #### L 500.2500, L100.0100 #### [facility] [address] [place], [address] WBC (Bld) [#/Vol] 9.2 10*3/uL Normal 4.4-11.0 [facility] Comment on above: Performed By: #### L 500.2500, L100.0100 #### [facility] [address] [place], [address] Carbon dioxide, total [Moles /volume] in Central venous bloodOrdered By: Renato Henson on 04-12-2025 CO2 [Moles/Vol] 26.0 mmol/L 21.0-32.0 [facility] Chloride assayOrdered By: Kwadwo Henson on 04-12-2025 Chloride [Moles/Vol] 101 mmol/L 98-108 [facility] Emergency Department Summary on 04-12-2025 Emergency Department Summary [facility] Medical Records Department [address] [place] [address] Emergency Department Summary 04/12/25 MR#: [id number] Acct: [id number] Name: KATARZYNA VARGAS Rep #: [id number] : 1975 50 From: Renato Henson MD [...] PO BID 5 days #10 caps 03/23 0 Unknown Rx cephalexin 500 mg capsule 500 mg PO Q8H 7 days #21 caps 03/24 10/17 Unknown Rx Allergy/AdvReac Type Severity Reaction Status Date / Time hydrocodone bitartrate (From Allergy Itching Verified 04/12/25 16:48 Vicodin) Surgical History Chronic suprapubic catheter History of cholecystectomy Social History household members: none Smoking Status: Current every day smoker tobacco type: cigarettes (more content not included)... Normal [facility] Eosinophil percentageOrdered By: Renato Henson on 04-12-2025 Eosinophils/100 WBC (Bld) 2.5 % 0-5 [facility] Erythrocyte distribution wid th ratioOrdered By: Renato Henson on 04-12-2025 Erythrocyte distribution width (RBC) [Ratio] 13.0 % 11.6-14.6 [facility] Erythrocyte distribution wid th standard deviationOrdered By: Renato Henson on 04-12-2025 Erythrocyte distribution width (RBC) [Ratio] 45.2 fl High 35.1-43.9 [facility] Glomerular filtration rate ( GFR) estimation/1.73 sq m using serum, plasma, or whole bOrdered By: Renato Henson on 04-12-2025 GFR/1.73 sq M.predicted among non-blacks MDRD (S/P/Bld) [Vol rate/Area] 108 mL/min/{1.73_m2} >60 [facility] Comment on above: mL/min/1.73m2 CKD-EP I Creatinine Equation (2020) Hematocrit Auto (Bld) [Volum e fraction]Ordered By: Renato Henson on 04-12-2025 Hematocrit (Bld) [Volume fraction] 34.3 % Low 37-47 [facility] Hemoglobin measurementOrdere d By: Renato Henson on 04-12-2025 Hemoglobin (Bld) [Mass/Vol] 11.7 g/dL Low 12.0-15.0 [facility] Immature granulocytes/100 WB C Auto (Bld)Ordered By: Renato Henson on 04-12-2025 Immature granulocytes/100 WBC (Bld) 0.500 % 0.0-0.9 [facility] Comment on above: IG% - Immature Granu locytes (promyelocytes, myelocytes and metamyelocytes) > 1% indicates that a LEFT SHIFT is Present. Ketones Test strip Ql (U)Ord ered By: Renato Henson on 04-12-2025 Ketones Ql (U) Negative Negative [facility] MCV (mean corpuscular volume ) determinationOrdered By: Renato Henson on 04-12-2025 MCV (RBC) [Entitic vol] 96.3 fL 81-99 [facility] Mean corpuscular hemoglobin (MCH) determinationOrdered By: Renato Henson on 04-12-2025 MCH (RBC) [Entitic mass] 32.9 pg High 27.0-32.0 [facility] Mean corpuscular hemoglobin concentration (MCHC) determinationOrdered By: Renato Henson on 04-12-2025 MCHC (RBC) [Mass/Vol] 34.1 g/dL 32-36 [facility] Mean platelet volume determi nationOrdered By: Renato Henson on 04-12-2025 Platelet mean volume (Bld) [Entitic vol] 10.0 fL 6.2-12.0 [facility] Microscopic analysis of urin e for red blood cells (RBC)Ordered By: Renato Henson on 04-12-2025 Microscopic analysis of urine for red blood cells (RBC) 0-5 SEEN /hpf 0-5 [facility] Monocyte percentageOrdered B y: Renato Henson on 04-12-2025 Monocytes/100 WBC (Bld) 5.6 % 0-10 [facility] Mucus LM Ql (Urine sed)Order ed By: Renato Henson on 04-12-2025 Mucus Ql (Urine sed) 0 SEEN /hpf [facility] Neutrophil percentageOrdered By: Renato Henson on 04-12-2025 Neutrophils/100 WBC (Bld) 66.8 % 47-70 [facility] Nitrite Test strip Ql (U)Ord ered By: Renato Henson on 04-12-2025 Nitrite Ql (U) Positive High Negative [facility] Nucleated red blood cell per centageOrdered By: Renato Henson on 04-12-2025 Nucleated RBC/100 WBC (Bld) [Ratio] 0 % 0-5 [facility] Platelet countOrdered By: Kwadwo Henson on 04-12-2025 Platelets (Bld) [#/Vol] 260 10*3/uL 150-450 [facility] Potassium measurement (mass/ volume)Ordered By: Renato Henson on 04-12-2025 Potassium (Unsp spec) [Mass/Vol] 3.2 mmol/L Low 3.3-5.1 [facility] Protein Test strip Ql (U)Ord ered By: Renato Henson on 04-12-2025 Protein Ql (U) 30 mg/dl High Negative [facility] RBC Auto (Bld) [#/Vol]Ordere d By: Renato Henson on 04-12-2025 RBC (Bld) [#/Vol] 3.56 10*6/uL Low 4.2-5.4 [facility] Serum creatinine measurement (mass/volume)Ordered By: Renato Henson on 04-12-2025 Creatinine [Mass/Vol] 0.65 mg/dL Low 0.70-1.20 [facility] Serum glucose measurement (m ass/volume)Ordered By: Renato Henson on 04-12-2025 Glucose [Mass/Vol] 101 mg/dL High 70-99 [facility] Serum or plasma calcium heena urement (mass/volume)Ordered By: Renato Henson on 04-12-2025 Calcium [Mass/Vol] 9.0 mg/dL 7.6-11.0 [facility] Serum or plasma urea nitroge n measurement (mass/volume)Ordered By: Renato Henson on 04-12-2025 Urea nitrogen [Mass/Vol] 11 mg/dL 4-19 [facility] Sodium levelOrdered By: Renato Henson on 04-12-2025 Sodium [Moles/Vol] 139 mmol/L 133-145 [facility] Squamous epithelial cells de tection in urine sediment by light microscopyOrdered By: Renato Henson on 04-12-2025 Epithelial cells.squamous LM Ql (Urine sed) 0-5 SEEN /hpf 5-10 [facility] Transitional cells detection in urine sediment by light microscopyOrdered By: Renato Henson on 04-12-2025 Transitional cells LM Ql (Urine sed) 0-5 SEEN /hpf 0-5 [facility] Urinalysis, Completeon 04-12 BACTERIA 2+ /hpf Normal None Seen [facility] Comment on above: Order Comment: CLEAN CATCH Performed By: #### L 400.0001 #### [facility] [address] [place], [address] EPI,SQUAMOUS 0-5 SEEN Normal 5-10 [facility] Comment on above: Order Comment: CLEAN CATCH Performed By: #### L 400.0001 #### [facility] [address] [place], [address] EPI,TRANSITION 0-5 SEEN Normal 0-5 [facility] Comment on above: Order Comment: CLEAN CATCH Performed By: #### L 400.0001 #### [facility] [address] [place], [address] RBC 0-5 SEEN Normal 0-5 [facility] Comment on above: Order Comment: CLEAN CATCH Performed By: #### L 400.0001 #### [facility] [address] [place], [address] WBC 10-25 SEEN Normal 0-5 [facility] Comment on above: Order Comment: CLEAN CATCH Performed By: #### L 400.0001 #### [facility] [address] [place], [address] Mucus Ql (Urine sed) 0 SEEN Normal [facility] Comment on above: Order Comment: CLEAN CATCH Performed By: #### L 400.0001 #### [facility] [address] [place], [address] Urine clarityOrdered By: Jono Henson on 04-12-2025 Clarity (U) Clear Clear [facility] Urine color determinationOrd ered By: Renato Henson on 04-12-2025 Color (U) Straw Yellow [facility] Urine glucose detectionOrder ed By: Renato Henson on 04-12-2025 Glucose Ql (U) Normal mg/dl Normal [facility] Urine leukocyte esterase det ection by dipstickOrdered By: Renato Henson on 04-12-2025 Leukocyte esterase Test strip Ql (U) 500 /ul High Negative [facility] Urine pHOrdered By: Renato castañeda on 04-12-2025 pH (U) 7.0 [pH] 5.0 - 8.0 [facility] Urine sediment bacteria coun t by microscopy (number/high power field)Ordered By: Renato Henson on 04-12-2025 Bacteria LM.HPF (Urine sed) [#/Area] 2 /[HPF] None Seen [facility] Urine specific gravity measu rementOrdered By: Renato Henson on 04-12-2025 Specific gravity (U) [Rel density] 1.005 1.002-1.030 [facility] Urine urobilinogen measureme ntOrdered By: Renato Henson on 04-12-2025 Urobilinogen Ql (U) Normal mg/dl Normal [facility] White blood cell (WBC) count Ordered By: Renato Henson on 04-12-2025 WBC (Bld) [#/Vol] 9.2 10*3/uL 4.4-11.0 [facility] White blood cell countOrdere d By: Renato Henson on 04-12-2025 White blood cell count 10-25 SEEN /hpf 0-5 [facility] - Specimen inform ationon 04-08-2025 Specimen source Nom (Unsp spec) Hold for add-ons. [facility] Comment on above: Auto resulted. No Panel Informationon 04-08 [facility] Urinalysis dipstick W Reflex Culture panel (U)on 04-08-2025 Bilirubin Ql (U) Negative Negative mg/dL [facility] Clarity (U) Clear Clear [facility] Color (U) Light Yellow Abnormal Yellow [facility] Epithelial cells.squamous LM.HPF (Urine sed) [#/Area] Occasional Abnormal None /LPF [facility] Glucose Ql (U) Normal Normal mg/dL [facility] Hemoglobin Ql (U) 1+ Abnormal Negative, Trace [facility] Interpretation and review of laboratory results Abnormal [facility] Ketones (U) [Mass/Vol] 20 mg/dL Abnormal Negative [facility] Leukocyte esterase Test strip Ql (U) 500 Abnormal Negative WBCs/mcL [facility] Mucus Ql (Urine sed) Rare Abnormal None /LPF [facility] Nitrite Ql (U) Negative Negative [facility] pH (U) 6.5 [pH] 5.0 - 8.0 pH [facility] Protein (U) [Mass/Vol] Negative Negative mg/dL [facility] RBC LM.HPF (Urine sed) [#/Area] 2 /[HPF] [facility] Specific gravity (U) [Rel density] 1.005 1.002 - 1.030 [facility] Urobilinogen (U) [Mass/Vol] Normal Normal mg/dL [facility] WBC LM.HPF (Urine sed) [#/Area] 12 /[HPF] High [facility] Bacteria identified Cx Nom (U) Culture, Urine Status = F See comment Normal [facility] Comment on above: Order Comment: Multi ple organisms greater than 100,000 CFU/ML. Results suggest improper specimen collection or delay in delivery. Performed By: #### 5 7019-2 #### [facility] [address] [place] [address] Culture, Blood (WB)on 2024 CUB Blood cultures x2, f rom two different sites No growth in 5 days. Normal [facility] Comment on above: Performed By: #### L 500.2500, L100.0100 #### [facility] [address] [place], [address] Urine Cultureon 04-02-2025 URC Mixed Gram Pos Gram Neg [facility] [place] Count >100,000 [facility] Mixed contaminants. Submit a new specimen if indicated. Normal [facility] Comment on above: Performed By: #### L 500.2500, L100.0100 #### [facility] [address] [place], [address] Absolute lymphocyte countOrd ered By: Samuel Hodges on 04-01-2025 Lymphocytes Auto (Unsp spec) [#/Vol] 0.66 10*3/uL Low 0.83-4.51 [facility] Absolute neutrophil countOrd ered By: Samuel Hodges on 04-01-2025 Neutrophils (Bld) [#/Vol] 4.3 10*3/uL 2.0-7.7 [facility] Activated partial thrombopla stin time (aPTT) in platelet poor plasma by coagulation aOrdered By: Samuel Hodges on 04-01-2025 aPTT Coag (PPP) [Time] 33.1 s 24.1-36.2 [facility] Anion gap in Serum or Plasma Ordered By: Samuel Hodges on 04-01-2025 Anion gap [Moles/Vol] 19 mmol/L High 5-15 [facility] Automated lymphocyte count a s percentage of total leukocytesOrdered By: Samuel Hodges on 04-01-2025 Lymphocytes/100 WBC Auto (Unsp spec) 12.1 % Low 19-41 [facility] BUN/creatinine ratioOrdered By: Samuel Hodges on 04-01-2025 Urea nitrogen/Creatinine [Mass ratio] 13.8 mg/mg 10-20 [facility] Basophil percentageOrdered B y: Samuel Hodges on 04-01-2025 Basophils/100 WBC (Bld) 0.9 % 0-1 [facility] Bilirubin Test strip Ql (U)O rdered By: Samuel Hodges on 04-01-2025 Bilirubin Ql (U) Negative Negative [facility] Bilirubin, totalOrdered By: Samuel Hodges on 04-01-2025 Bilirubin [Mass/Vol] 0.73 mg/dL 0.00-1.30 [facility] Blood cultureOrdered By: Sandy Hodges on 04-01-2025 Bacteria identified Cx Nom (Bld) No growth in 5 days. [facility] Bacteria identified Cx Nom (Bld) No growth in 5 days. [facility] CBC W/Diff, Automatedon 03-23 Absolute Lymph 0.66 X10 3/uL Low 0.83-4.51 [facility] Comment on above: Performed By: #### L 500.2500, L100.0100 #### [facility] [address] [place], [address] Absolute Neut 4.3 X10 3/uL Normal 2.0-7.7 [facility] Comment on above: Performed By: #### L 500.2500, L100.0100 #### [facility] [address] [place], [address] Basophils/100 WBC (Bld) 0.9 % Normal 0-1 [facility] Comment on above: Performed By: #### L 500.2500, L100.0100 #### [facility] [address] [place], [address] Eosinophils/100 WBC (Bld) 2.2 % Normal 0-5 [facility] Comment on above: Performed By: #### L 500.2500, L100.0100 #### [facility] [address] [place], [address] Erythrocyte distribution width (RBC) [Ratio] 13.2 % Normal 11.6-14.6 [facility] Comment on above: Performed By: #### L 500.2500, L100.0100 #### [facility] [address] [place], [address] Hematocrit (Bld) [Volume fraction] 38.9 % Normal 37-47 [facility] Comment on above: Performed By: #### L 500.2500, L100.0100 #### [facility] [address] [place], [address] Hemoglobin (Bld) [Mass/Vol] 13.2 g/dL Normal 12.0-15.0 [facility] Comment on above: Performed By: #### L 500.2500, L100.0100 #### [facility] [address] [place], [address] IG% 0.400 Normal 0.0-0.9 [facility] Comment on above: Result Comment: IG% - Immature Granulocytes (promyelocytes, myelocytes and metamyelocytes) > 1% indicates that a LEFT SHIFT is Present. Performed By: #### L 500.2500, L100.0100 #### [facility] [address] [place], [address] Lymphocytes/100 WBC (Bld) 12.1 % Low 19-41 [facility] Comment on above: Performed By: #### L 500.2500, L100.0100 #### [facility] [address] [place], [address] MCH (RBC) [Entitic mass] 33.3 pg High 27.0-32.0 [facility] Comment on above: Performed By: #### L 500.2500, L100.0100 #### [facility] [address] [place], [address] MCHC (RBC) [Mass/Vol] 33.9 g/dL Normal 32-36 [facility] Comment on above: Performed By: #### L 500.2500, L100.0100 #### [facility] [address] [place], [address] MCV (RBC) [Entitic vol] 98.2 fL Normal 81-99 [facility] Comment on above: Performed By: #### L 500.2500, L100.0100 #### [facility] [address] [place], [address] Monocytes/100 WBC (Bld) 5.5 % Normal 0-10 [facility] Comment on above: Performed By: #### L 500.2500, L100.0100 #### [facility] [address] [place], [address] Neutrophils/100 WBC (Bld) 78.9 % High 47-70 [facility] Comment on above: Performed By: #### L 500.2500, L100.0100 #### [facility] [address] [place], [address] Nucleated RBC (Bld) [#/Vol] 0 10*3/uL Normal 0-5 [facility] Comment on above: Performed By: #### L 500.2500, L100.0100 #### [facility] [address] [place], [address] Platelet mean volume (Bld) [Entitic vol] 9.8 fL Normal 6.2-12.0 [facility] Comment on above: Performed By: #### L 500.2500, L100.0100 #### [facility] [address] [place], [address] Platelets (Bld) [#/Vol] 212 10*3/uL Normal 150-450 [facility] Comment on above: Performed By: #### L 500.2500, L100.0100 #### [facility] [address] [place], [address] RBC (Bld) [#/Vol] 3.96 10*6/uL Low 4.2-5.4 [facility] Comment on above: Performed By: #### L 500.2500, L100.0100 #### [facility] [address] [place], [address] RDW SD 47.3 fl High 35.1-43.9 [facility] Comment on above: Performed By: #### L 500.2500, L100.0100 #### [facility] [address] [place], [address] WBC (Bld) [#/Vol] 5.5 10*3/uL Normal 4.4-11.0 [facility] Comment on above: Performed By: #### L 500.2500, L100.0100 #### [facility] [address] [place], [address] Carbon dioxide, total [Moles /volume] in Central venous bloodOrdered By: Samuel Hodges on 04-01-2025 CO2 [Moles/Vol] 22.7 mmol/L 21.0-32.0 [facility] Chloride assayOrdered By: Leonard Hodges on 04-01-2025 Chloride [Moles/Vol] 100 mmol/L 98-108 [facility] Comprehensive Metabolic Prof ilon 04-01-2025 Albumin [Mass/Vol] 3.3 g/dL Low 3.5-5.0 [facility] Comment on above: Performed By: #### L 500.2500, L100.0100 #### [facility] [address] [place], [address] Albumin/Globulin [Mass ratio] 1.1 {ratio} Normal 0.9-2.4 [facility] Comment on above: Performed By: #### L 500.2500, L100.0100 #### [facility] [address] [place], [address] ALK PHOS 90 U/L Normal 35-104 [facility] Comment on above: Performed By: #### L 500.2500, L100.0100 #### [facility] [address] [place], [address] ALT [Catalytic activity/Vol] 15 U/L Normal <=34 [facility] Comment on above: Performed By: #### L 500.2500, L100.0100 #### [facility] [address] [place], [address] AST [Catalytic activity/Vol] 23 U/L Normal <=31 [facility] Comment on above: Performed By: #### L 500.2500, L100.0100 #### [facility] [address] [place], [address] Bilirubin [Mass/Vol] 0.73 mg/dL Normal 0.00-1.30 [facility] Comment on above: Performed By: #### L 500.2500, L100.0100 #### [facility] [address] [place], [address] BUN/CRE 13.8 RATIO Normal 10-20 [facility] Comment on above: Performed By: #### L 500.2500, L100.0100 #### [facility] [address] [place], [address] Calcium [Mass/Vol] 8.8 mg/dL Normal 7.6-11.0 [facility] Comment on above: Performed By: #### L 500.2500, L100.0100 #### [facility] [address] [place], [address] Chloride [Moles/Vol] 100 mmol/L Normal 98-108 [facility] Comment on above: Performed By: #### L 500.2500, L100.0100 #### [facility] [address] [place], [address] CO2 [Moles/Vol] 22.7 mmol/L Normal 21.0-32.0 [facility] Comment on above: Performed By: #### L 500.2500, L100.0100 #### [facility] [address] [place], [address] Creatinine [Mass/Vol] 0.62 mg/dL Low 0.70-1.20 [facility] Comment on above: Performed By: #### L 500.2500, L100.0100 #### [facility] [address] [place], [address] ECRCL 123.55 ml/min Normal 50-250 [facility] Comment on above: Performed By: #### L 500.2500, L100.0100 #### [facility] [address] [place], [address] GAP 19 High 5-15 [facility] Comment on above: Performed By: #### L 500.2500, L100.0100 #### [facility] [address] [place], [address] GFR/1.73 sq M.predicted among non-blacks MDRD (S/P/Bld) [Vol rate/Area] 109 mL/min/{1.73_m2} Normal >60 [facility] Comment on above: Result Comment: mL/m in/1.73m2 CKD-EPI Creatinine Equation (2020) Performed By: #### L 500.2500, L100.0100 #### [facility] [address] [place], [address] Globulin (S) [Mass/Vol] 3.1 g/dL Normal 2.2-4.2 [facility] Comment on above: Performed By: #### L 500.2500, L100.0100 #### [facility] [address] [place], [address] Glucose [Mass/Vol] 73 mg/dL Normal 70-99 [facility] Comment on above: Performed By: #### L 500.2500, L100.0100 #### [facility] [address] [place], [address] Potassium [Moles/Vol] 3.1 mmol/L Low 3.3-5.1 [facility] Comment on above: Performed By: #### L 500.2500, L100.0100 #### [facility] [address] [place], [address] Sodium [Moles/Vol] 142 mmol/L Normal 133-145 [facility] [facility] Comment on above: Performed By: #### L 500.2500, L100.0100 #### [facility] [address] [place], [address] T PROT 6.4 g/dL Normal 5.9-8.4 [facility] Comment on above: Performed By: #### L 500.2500, L100.0100 #### [facility] [address] [place], [address] Urea nitrogen [Mass/Vol] 9 mg/dL Normal 4-19 [facility] Comment on above: Performed By: #### L 500.2500, L100.0100 #### [facility] [address] [place], [address] Emergency Department Summary on 04-01-2025 Emergency Department Summary [facility] Medical Records Department [address] [place] [address] Emergency Department Summary 04/01/25 MR#: [id number] Acct: [id number] Name: KATARZYNA VARGAS Rep #: [id number] : 1975 50 From: Samuel Hodges DO [...] 11:22 Vicodin) Surgical History ... Normal [facility] Eosinophil percentageOrdered By: Samuel Hodges on 04-01-2025 Eosinophils/100 WBC (Bld) 2.2 % 0-5 [facility] Erythrocyte distribution wid th ratioOrdered By: Samuel Hodges on 04-01-2025 Erythrocyte distribution width (RBC) [Ratio] 13.2 % 11.6-14.6 [facility] Erythrocyte distribution wid th standard deviationOrdered By: Samuel Hodges on 04-01-2025 Erythrocyte distribution width (RBC) [Ratio] 47.3 fl High 35.1-43.9 [facility] Glomerular filtration rate ( GFR) estimation/1.73 sq m using serum, plasma, or whole bOrdered By: Samuel Hodges on 04-01-2025 GFR/1.73 sq M.predicted among non-blacks MDRD (S/P/Bld) [Vol rate/Area] 109 mL/min/{1.73_m2} >60 [facility] Comment on above: mL/min/1.73m2 CKD-EP I Creatinine Equation (2020) Hematocrit Auto (Bld) [Volum e fraction]Ordered By: Samuel Hodges on 04-01-2025 Hematocrit (Bld) [Volume fraction] 38.9 % 37-47 [facility] Hemoglobin measurementOrdere d By: Samuel Hodges on 04-01-2025 Hemoglobin (Bld) [Mass/Vol] 13.2 g/dL 12.0-15.0 [facility] Immature granulocytes/100 WB C Auto (Bld)Ordered By: Samuel Hodges on 04-01-2025 Immature granulocytes/100 WBC (Bld) 0.400 % 0.0-0.9 [facility] Comment on above: IG% - Immature Granu locytes (promyelocytes, myelocytes and metamyelocytes) > 1% indicates that a LEFT SHIFT is Present. International normalized rat io (INR) calculationOrdered By: Samuel Hodges on 04-01-2025 INR Coag (Bld) [Relative time] 1.0 {INR} [facility] Ketones Test strip Ql (U)Ord ered By: Samuel Hodges on 04-01-2025 Ketones Ql (U) 50 mg/dl High Negative [facility] - Chemistry and C hemistry - challengeOrdered By: Samuel Hodges on 04-01-2025 AST [Catalytic activity/Vol] 23 U/L <32 [facility] Lactic Acidon 04-01-2025 Lactate [Moles/Vol] 1.3 mmol/L Normal 0.0-2.0 [facility] Comment on above: Order Comment: Y Performed By: #### L 500.2500, L100.0100 #### [facility] [address] [place], [place], [id number] Lactic acid measurementOrder ed By: Samuel Hodges on 04-01-2025 Lactate [Moles/Vol] 1.3 mmol/L 0.0-2.0 [facility] M100.677on 04-01-2025 M100.677 Negative Normal [facility] Comment on above: Performed By: #### L 500.2500, L100.0100 #### [facility] [address] [place], [address] MCV (mean corpuscular volume ) determinationOrdered By: Samuel Hodges on 04-01-2025 MCV (RBC) [Entitic vol] 98.2 fL 81-99 [facility] Mean corpuscular hemoglobin (MCH) determinationOrdered By: Samuel Hodges on 04-01-2025 MCH (RBC) [Entitic mass] 33.3 pg High 27.0-32.0 [facility] Mean corpuscular hemoglobin concentration (MCHC) determinationOrdered By: Samuel Hodges on 04-01-2025 MCHC (RBC) [Mass/Vol] 33.9 g/dL 32-36 [facility] Mean platelet volume determi nationOrdered By: Samuel Hodges on 04-01-2025 Platelet mean volume (Bld) [Entitic vol] 9.8 fL 6.2-12.0 [facility] Microscopic analysis of urin e for red blood cells (RBC)Ordered By: Samuel Hodges on 04-01-2025 Microscopic analysis of urine for red blood cells (RBC) 0 SEEN /hpf 0- [facility] Monocyte percentageOrdered B y: Samuel Hodges on 04-01-2025 Monocytes/100 WBC (Bld) 5.5 % 0- [facility] Mucus LM Ql (Urine sed)Order ed By: Samuel Hodges on 04-01-2025 Mucus Ql (Urine sed) 0 SEEN /hpf [facility] Neutrophil percentageOrdered By: Samuel Hodges on 04-01-2025 Neutrophils/100 WBC (Bld) 78.9 % High 47-70 [facility] Nitrite Test strip Ql (U)Ord ered By: Samuel Hodges on 04-01-2025 Nitrite Ql (U) Positive High Negative [facility] Nucleated red blood cell per centageOrdered By: Samuel Hodges on 04-01-2025 Nucleated RBC/100 WBC (Bld) [Ratio] 0 % 0- [facility] Partial Thromboplast Timeon 04-01-2025 aPTT Coag (Bld) [Time] 33.1 s Normal 24.1-36.2 [facility] Comment on above: Performed By: #### L 500.2500, L100.0100 #### [facility] [address] [place], [address] Platelet countOrdered By: Leonard Hodges on 04-01-2025 Platelets (Bld) [#/Vol] 212 10*3/uL 150-450 [facility] Potassium measurement (mass/ volume)Ordered By: Samuel Hodges on 04-01-2025 Potassium (Unsp spec) [Mass/Vol] 3.1 mmol/L Low 3.3-5.1 [facility] Protein Test strip Ql (U)Ord ered By: Samuel Hodges on 04-01-2025 Protein Ql (U) Negative Negative [facility] Prothrombin Time w/INRon INR Coag (PPP) [Relative time] 1.0 {INR} Normal [facility] Comment on above: Performed By: #### L 500.2500, L100.0100 #### [facility] [address] [place], [address] PT Coag (PPP) [Time] 13.6 s Normal 11.7-14.9 [facility] Comment on above: Performed By: #### L 500.2500, L100.0100 #### [facility] [address] [facility] [place], [address] Prothrombin timeOrdered By: Samuel Hodges on 04-01-2025 PT Coag (PPP) [Time] 13.6 s 11.7-14.9 [facility] RBC Auto (Bld) [#/Vol]Ordere d By: Samuel Hodges on 04-01-2025 RBC (Bld) [#/Vol] 3.96 10*6/uL Low 4.2-5.4 [facility] Serum creatinine measurement (mass/volume)Ordered By: Samuel Hodges on 04-01-2025 Creatinine [Mass/Vol] 0.62 mg/dL Low 0.70-1.20 [facility] Serum globulin measurementOr dered By: Samuel Hodges on 04-01-2025 Globulin (S) [Mass/Vol] 3.1 g/dL 2.2-4.2 [facility] Serum glucose measurement (m ass/volume)Ordered By: Samuel Hodges on 04-01-2025 Glucose [Mass/Vol] 73 mg/dL 70-99 [facility] Serum or plasma alanine hensley otransferase (ALT) measurementOrdered By: Samuel Hodges on 04-01-2025 ALT [Catalytic activity/Vol] 15 U/L <35 [facility] Serum or plasma albumin heena urement (mass/volume)Ordered By: Samuel Hodges on 04-01-2025 Albumin [Mass/Vol] 3.3 g/dL Low 3.5-5.0 [facility] Serum or plasma albumin/glob ulin mass ratioOrdered By: Samuel Hodges on 04-01-2025 Albumin/Globulin [Mass ratio] 1.1 {ratio} 0.9-2.4 [facility] Serum or plasma alkaline sandra sphatase measurementOrdered By: Samuel Hodges on 04-01-2025 ALP [Catalytic activity/Vol] 90 U/L 35-104 [facility] Serum or plasma calcium heena urement (mass/volume)Ordered By: Samuel Hodges on 04-01-2025 Calcium [Mass/Vol] 8.8 mg/dL 7.6-11.0 [facility] Serum or plasma urea nitroge n measurement (mass/volume)Ordered By: Samuel Hodges on 04-01-2025 Urea nitrogen [Mass/Vol] 9 mg/dL 4-19 [facility] Sodium levelOrdered By: Justine Hodges on 04-01-2025 Sodium [Moles/Vol] 142 mmol/L 133-145 [facility] Soft Tissue Neck WITH Contra ston 04-01-2025 Soft Tissue Neck WITH Contrast [facility] Imaging Services [address] [place] [address] Soft Tissue Neck WITH Contrast MR#: [id number] Acct: [id number] Name: KATARZYNA VARGAS Rep #: [id number] : 1975 F 50 From: David pendleton MD PCP: Dr. Darrel Veloz, DO Status: REG ER Study: Soft Tissue Neck WITH Contrast Date of Exam: 0 04/01/25 Exam# [id number] Ordering Dr: Samuel Hodges DO PROCEDURE: SOFT [...] No acute abnormality is seen. Reading Location: [place] [address] CC: Dr. Darrel Veloz DO; Dr. Samuel Hodges DO Hand Slitter: Signed Normal [facility] Squamous epithelial cells de tection in urine sediment by light microscopyOrdered By: Samuel Hodges on 04-01-2025 Epithelial cells.squamous LM Ql (Urine sed) 0-5 SEEN /hpf 5-10 [facility] Streptococcus pyogenes rRNA detection in throat by DNA probeOrdered By: Samuel Hodges on 04-01-2025 S. pyogenes rRNA Probe Ql (Throat) [facility] Total proteinOrdered By: Sandy Hodges on 04-01-2025 Protein [Mass/Vol] 6.4 g/dL 5.9-8.4 [facility] Urinalysis, Completeon 04-01 BACTERIA 1+ /hpf Normal None Seen [facility] Comment on above: Order Comment: COLLE CTOR TO SPECIFY Performed By: #### L 500.2500, L100.0100 #### [facility] [place], [address] EPI,SQUAMOUS 0-5 SEEN Normal 5-10 [facility] Comment on above: Order Comment: KYAW CTOR TO SPECIFY Performed By: #### L 500.2500, L100.0100 #### [facility] [address] [place], [address] WBC 5-10 SEEN Normal 0-5 [facility] Comment on above: Order Comment: KYAW CTOR TO SPECIFY Performed By: #### L 500.2500, L100.0100 #### [facility] [address] [place], [address] Mucus Ql (Urine sed) 0 SEEN Normal [facility] Comment on above: Order Comment: KYAW CTOR TO SPECIFY Performed By: #### L 500.2500, L100.0100 #### [facility] [address] [place], [address] RBC 0 SEEN Normal 0-5 [facility] Comment on above: Order Comment: KYAW CTOR TO SPECIFY Performed By: #### L 500.2500, L100.0100 #### [facility] [address] [place], [address] Urine clarityOrdered By: Sandy Hodges on 04-01-2025 Clarity (U) Sl. Cloudy Clear [facility] Urine color determinationOrd ered By: Samuel Hodges on 04-01-2025 Color (U) Straw Yellow [facility] Urine cultureOrdered By: Sandy Hodges on 04-01-2025 Bacteria identified Cx Nom (U) Mixed Gram Pos & Gram Neg Org Abnormal [facility] Urine glucose detectionOrder ed By: Samuel Hodges on 04-01-2025 Glucose Ql (U) Normal mg/dl Normal [facility] Urine leukocyte esterase det ection by dipstickOrdered By: Samuel Hodges on 04-01-2025 Leukocyte esterase Test strip Ql (U) 500 /ul High Negative [facility] Urine pHOrdered By: Samuel quan on 04-01-2025 pH (U) 6.0 [pH] 5.0 - 8.0 [facility] Urine sediment bacteria coun t by microscopy (number/high power field)Ordered By: Samuel Hodges on 04-01-2025 Bacteria LM.HPF (Urine sed) [#/Area] 1 /[HPF] None Seen [facility] Urine specific gravity measu rementOrdered By: Samuel Hodges on 04-01-2025 Specific gravity (U) [Rel density] 1.010 1.002-1.030 [facility] Urine urobilinogen measureme ntOrdered By: Samuel Hodges on 04-01-2025 Urobilinogen Ql (U) Normal mg/dl Normal [facility] White blood cell (WBC) count Ordered By: Samuel Hodges on 04-01-2025 WBC (Bld) [#/Vol] 5.5 10*3/uL 4.4-11.0 [facility] White blood cell countOrdere d By: Samuel Hodges on 04-01-2025 White blood cell count 5-10 SEEN /hpf 0-5 [facility] CNPNon 03-31-2025 CNPN Telephone (UROLWS) -------- KATARZYNA VARGAS ([id number]) 1975 F [facility] Date Time Provider Department 03/31/25 RUSH MAXWELL During your visit today, we recorded the following information about you: Sarah Hager MA 03/31/2025 3:33 PM Signed Nurse from [facility] to request the ability to steel pickler a suprapubic catheter for placement prior to patient being transferred to a rehabilitation facility for inpatient treatment tomorrow. Nurse reports asking due to fear that the rehab facility will deny the patient due to the catheter needing to be changed. Return nurse phone call to [phone] YAMILEX Ramos Kimberly, LPN 04/01/2025 8:23 AM Signed Called [facility] and spoke with staff. 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 A nurse from [facility] will be at clinic to steel pickler catheter some time today. Order printed for catheter change for steel pickler in event order is needed. Bambi Thomas LPN Allergies As of Date: 03/31/2025 Noted Allergy Reaction ULTRAM (TRAMADOL HCL) 09/21/2005 1 - Mental Status Change Comments: SEIZURE VICODIN (HYDROCODONE-ACETAMINOPH E*09/11/2005 11 - Vomiting Date Reviewed: 02/02/2025 Reviewed by: Yessy Mares MA - Fully Assessed Reason for Visit: Patient Question [7967] Prescriptions as of 04/01/2025 - oxybutynin ER [...] mL susp (more content not included)... Normal [facility] Absolute lymphocyte countOrd ered By: Ijeoma Garzon on 03-28-2025 Lymphocytes Auto (Unsp spec) [#/Vol] 1.04 10*3/uL 0.83-4.51 [facility] Absolute neutrophil countOrd ered By: Ijeoma Garzon on 03-28-2025 Neutrophils (Bld) [#/Vol] 7.7 10*3/uL 2.0-7.7 [facility] Amphetamine detection with 1 000 ng/mL as cutoffOrdered By: Ijeoma Garzon on 03-28-2025 Amphetamines Screen method >1000 ng/mL Ql (U) Positive <1000 ng/mL [facility] Comment on above: If confirmation test ing is needed, a separate order will be required to send out testing to the reference laboratory. Amphetamines Screen method >1000 ng/mL Ql (U) Negative < 200 ng/mL [facility] Anion gap in Serum or Plasma Ordered By: Ijeoma Garzon on 03-28-2025 Anion gap [Moles/Vol] 18 mmol/L High 5-15 [facility] Automated lymphocyte count a s percentage of total leukocytesOrdered By: Ijeoma Garzon on 03-28-2025 Lymphocytes/100 WBC Auto (Unsp spec) 10.6 % Low 19-41 [facility] BUN/creatinine ratioOrdered By: Ijeoma Garzon on 03-28-2025 Urea nitrogen/Creatinine [Mass ratio] 8.1 mg/mg Low 10-20 [facility] Basic Metabolic Profile (BMP )on 03-28-2025 BUN/CRE 8.1 RATIO Low 10- [facility] Comment on above: Performed By: #### L 100.0100, L500.2500 #### [facility] [place], [address] Calcium [Mass/Vol] 9.0 mg/dL Normal 7.6-11.0 [facility] Comment on above: Performed By: #### L 100.0100, L500.2500 #### [facility] [address] [place], [address] Chloride [Moles/Vol] 95 mmol/L Low 98-108 [facility] Comment on above: Performed By: #### L 100.0100, L500.2500 #### [facility] [address] [place], [address] CO2 [Moles/Vol] 21.4 mmol/L Normal 21.0-32.0 [facility] Comment on above: Performed By: #### L 100.0100, L500.2500 #### [facility] [address] [place], [address] Creatinine [Mass/Vol] 0.62 mg/dL Low 0.70-1.20 [facility] Comment on above: Performed By: #### L 100.0100, L500.2500 #### [facility] [address] [place], [address] GAP 18 High 5-15 [facility] Comment on above: Performed By: #### L 100.0100, L500.2500 #### [facility] [address] [place], [address] GFR/1.73 sq M.predicted among non-blacks MDRD (S/P/Bld) [Vol rate/Area] 109 mL/min/{1.73_m2} Normal >60 [facility] Comment on above: Result Comment: mL/m in/1.73m2 CKD-EPI Creatinine Equation (2020) Performed By: #### L 100.0100, L500.2500 #### [facility] [address] [place], [address] Glucose [Mass/Vol] 85 mg/dL Normal 70-99 [facility] Comment on above: Performed By: #### L 100.0100, L500.2500 #### [facility] [address] [place], [address] Potassium [Moles/Vol] 3.2 mmol/L Low 3.3-5.1 [facility] Comment on above: Performed By: #### L 100.0100, L500.2500 #### [facility] [address] [place], [address] Sodium [Moles/Vol] 134 mmol/L Normal 133-145 [facility] Comment on above: Performed By: #### L 100.0100, L500.2500 #### [facility] [address] [place], [address] Urea nitrogen [Mass/Vol] 5 mg/dL Normal 4-19 [facility] Comment on above: Performed By: #### L 100.0100, L500.2500 #### [facility] [address] [place], [address] Basophil percentageOrdered B y: Ijeoma Garzon on 03-28-2025 Basophils/100 WBC (Bld) 0.5 % 0-1 [facility] CBC W/Diff, Automatedon 07-0 Absolute Lymph 1.04 X10 3/uL Normal 0.83-4.51 [facility] Comment on above: Performed By: #### L 100.0100, L500.2500 #### [facility] [address] [place], [address] Absolute Neut 7.7 X10 3/uL Normal 2.0-7.7 [facility] Comment on above: Performed By: #### L 100.0100, L500.2500 #### [facility] [address] [place], [address] Basophils/100 WBC (Bld) 0.5 % Normal 0-1 [facility] Comment on above: Performed By: #### L 100.0100, L500.2500 #### [facility] [address] [place], [address] Eosinophils/100 WBC (Bld) 2.4 % Normal 0-5 [facility] Comment on above: Performed By: #### L 100.0100, L500.2500 #### [facility] [address] [place], [address] Erythrocyte distribution width (RBC) [Ratio] 13.0 % Normal 11.6-14.6 [facility] Comment on above: Performed By: #### L 100.0100, L500.2500 #### [facility] [address] [place], [address] Hematocrit (Bld) [Volume fraction] 33.9 % Low 37-47 [facility] Comment on above: Performed By: #### L 100.0100, L500.2500 #### [facility] [address] [place], [address] Hemoglobin (Bld) [Mass/Vol] 12.0 g/dL Normal 12.0-15.0 [facility] Comment on above: Performed By: #### L 100.0100, L500.2500 #### [facility] [address] [place], [address] IG% 0.200 Normal 0.0-0.9 [facility] Comment on above: Result Comment: IG% - Immature Granulocytes (promyelocytes, myelocytes and metamyelocytes) > 1% indicates that a LEFT SHIFT is Present. Performed By: #### L 100.0100, L500.2500 #### [facility] [address] [place], [address] Lymphocytes/100 WBC (Bld) 10.6 % Low 19-41 [facility] Comment on above: Performed By: #### L 100.0100, L500.2500 #### [facility] [address] [place], [address] MCH (RBC) [Entitic mass] 33.4 pg High 27.0-32.0 [facility] Comment on above: Performed By: #### L 100.0100, L500.2500 #### [facility] [address] [place], [address] MCHC (RBC) [Mass/Vol] 35.4 g/dL Normal 32-36 [facility] Comment on above: Performed By: #### L 100.0100, L500.2500 #### [facility] [address] [place], [address] MCV (RBC) [Entitic vol] 94.4 fL Normal 81-99 [facility] Comment on above: Performed By: #### L 100.0100, L500.2500 #### [facility] [address] [place], [address] Monocytes/100 WBC (Bld) 7.7 % Normal 0-10 [facility] Comment on above: Performed By: #### L 100.0100, L500.2500 #### [facility] [address] [place], [address] Neutrophils/100 WBC (Bld) 78.6 % High 47-70 [facility] Comment on above: Performed By: #### L 100.0100, L500.2500 #### [facility] [address] [place], [address] Nucleated RBC (Bld) [#/Vol] 0 10*3/uL Normal 0-5 [facility] Comment on above: Performed By: #### L 100.0100, L500.2500 #### [facility] [address] [place], [address] Platelet mean volume (Bld) [Entitic vol] 10.4 fL Normal 6.2-12.0 [facility] Comment on above: Performed By: #### L 100.0100, L500.2500 #### [facility] [address] [place], [address] Platelets (Bld) [#/Vol] 199 10*3/uL Normal 150-450 [facility] Comment on above: Performed By: #### L 100.0100, L500.2500 #### [facility] [address] [place], [address] RBC (Bld) [#/Vol] 3.59 10*6/uL Low 4.2-5.4 [facility] Comment on above: Performed By: #### L 100.0100, L500.2500 #### [facility] [address] [place], [address] RDW SD 44.5 fl High 35.1-43.9 [facility] Comment on above: Performed By: #### L 100.0100, L500.2500 #### [facility] [address] [place], [address] WBC (Bld) [#/Vol] 9.8 10*3/uL Normal 4.4-11.0 [facility] Comment on above: Performed By: #### L 100.0100, L500.2500 #### [facility] [address] [place], [address] Carbon dioxide, total [Moles /volume] in Central venous bloodOrdered By: Ijeoma Garzon on 03-28-2025 CO2 [Moles/Vol] 21.4 mmol/L 21.0-32.0 [facility] Chloride assayOrdered By: Julieth Garzon on 03-28-2025 Chloride [Moles/Vol] 95 mmol/L Low 98-108 [facility] Emergency Department Summary on 03-28-2025 Emergency Department Summary [facility] Medical Records Department [address] [place] [address] Emergency Department Summary 03/28/25 MR#: [id number] Acct: [id number] Name: KATARZYNA VARGAS Rep #: [id number] : 1975 50 From: Ijeoma TENORIO PCP: [...] fever, (more content not included)... Normal [facility] Eosinophil percentageOrdered By: Ijeoma Garzon on 03-28-2025 Eosinophils/100 WBC (Bld) 2.4 % 0-5 [facility] Erythrocyte distribution wid th ratioOrdered By: Ijeoma Garzon on 03-28-2025 Erythrocyte distribution width (RBC) [Ratio] 13.0 % 11.6-14.6 [facility] Erythrocyte distribution wid th standard deviationOrdered By: Ijeoma Garzon on 03-28-2025 Erythrocyte distribution width (RBC) [Ratio] 44.5 fl High 35.1-43.9 [facility] Glomerular filtration rate ( GFR) estimation/1.73 sq m using serum, plasma, or whole bOrdered By: Ijeoma Garzon on 03-28-2025 GFR/1.73 sq M.predicted among non-blacks MDRD (S/P/Bld) [Vol rate/Area] 109 mL/min/{1.73_m2} >60 [facility] Comment on above: mL/min/1.73m2 CKD-EP I Creatinine Equation (2020) Hematocrit Auto (Bld) [Volum e fraction]Ordered By: Ijeoma Garzon on 03-28-2025 Hematocrit (Bld) [Volume fraction] 33.9 % Low 37-47 [facility] Hemoglobin measurementOrdere d By: Ijeoma Garzon on 03-28-2025 Hemoglobin (Bld) [Mass/Vol] 12.0 g/dL 12.0-15.0 [facility] Immature granulocytes/100 WB C Auto (Bld)Ordered By: Ijeoma Garzon on 03-28-2025 Immature granulocytes/100 WBC (Bld) 0.200 % 0.0-0.9 [facility] Comment on above: IG% - Immature Granu locytes (promyelocytes, myelocytes and metamyelocytes) > 1% indicates that a LEFT SHIFT is Present. MCV (mean corpuscular volume ) determinationOrdered By: Ijeoma Garzon on 03-28-2025 MCV (RBC) [Entitic vol] 94.4 fL 81-99 [facility] Mean corpuscular hemoglobin (MCH) determinationOrdered By: Ijeoma Garzon on 03-28-2025 MCH (RBC) [Entitic mass] 33.4 pg High 27.0-32.0 [facility] Mean corpuscular hemoglobin concentration (MCHC) determinationOrdered By: Ijeoma Garzon on 03-28-2025 MCHC (RBC) [Mass/Vol] 35.4 g/dL 32-36 [facility] Mean platelet volume determi nationOrdered By: Ijeoma Garzon on 03-28-2025 Platelet mean volume (Bld) [Entitic vol] 10.4 fL 6.2-12.0 [facility] Monocyte percentageOrdered B y: Ijeoma Garzon on 03-28-2025 Monocytes/100 WBC (Bld) 7.7 % 0-10 [facility] Neutrophil percentageOrdered By: Ijeoma Garzon on 03-28-2025 Neutrophils/100 WBC (Bld) 78.6 % High 47-70 [facility] No Panel InformationOrdered By: Ijeoma Garzon on 03-28-2025 Urine Buprenorphine Qualitative Negative < 200 ng/mL [facility] Urine Oxycodone Screen Negative < 100 ng/mL [facility] Nucleated red blood cell per centageOrdered By: Ijeoma Garzon on 03-28-2025 Nucleated RBC/100 WBC (Bld) [Ratio] 0 % 0-5 [facility] Platelet countOrdered By: Julieth Garzon on 03-28-2025 Platelets (Bld) [#/Vol] 199 10*3/uL 150-450 [facility] Potassium measurement (mass/ volume)Ordered By: Ijeoma Garzon on 03-28-2025 Potassium (Unsp spec) [Mass/Vol] 3.2 mmol/L Low 3.3-5.1 [facility] Quantitative urine opiates m easurementOrdered By: Ijeoma Garzon on 03-28-2025 Opiates Ql (U) Negative < 300 ng/mL [facility] RBC Auto (Bld) [#/Vol]Ordere d By: Ijeoma Garzon on 03-28-2025 RBC (Bld) [#/Vol] 3.59 10*6/uL Low 4.2-5.4 [facility] Screening urine fentanyl annie surementOrdered By: Ijeoma Garzon on 03-28-2025 fentaNYL Screen Ql (U) Negative [facility] Serum creatinine measurement (mass/volume)Ordered By: Ijeoma Garzon on 03-28-2025 Creatinine [Mass/Vol] 0.62 mg/dL Low 0.70-1.20 [facility] Serum glucose measurement (m ass/volume)Ordered By: Ijeoma Garzon on 03-28-2025 Glucose [Mass/Vol] 85 mg/dL 70-99 [facility] Serum or plasma calcium heena urement (mass/volume)Ordered By: Ijeoma Garzon on 03-28-2025 Calcium [Mass/Vol] 9.0 mg/dL 7.6-11.0 [facility] Serum or plasma urea nitroge n measurement (mass/volume)Ordered By: Ijeoma Garzon on 03-28-2025 Urea nitrogen [Mass/Vol] 5 mg/dL 4-19 [facility] Sodium levelOrdered By: Ijeoma Garzon on 03-28-2025 Sodium [Moles/Vol] 134 mmol/L 133-145 [facility] Urine Drug Screen (VISTA)on 03-28-2025 AMPHETAMINES Positive Normal <1000 ng/mL [facility] Comment on above: Result Comment: If c onfirmation testing is needed, a separate order will be required to send out testing to the reference laboratory. Performed By: #### L 500.2500, L100.0100 #### [facility] [place], [address] BARBITIURATES Negative Normal < 200 ng/mL [facility] Comment on above: Performed By: #### L 500.2500, L100.0100 #### [facility] [address] [place], [address] BENZODIAZIPINE Positive Normal < 200 ng/mL [facility] Comment on above: Result Comment: If c onfirmation testing is needed, a separate order will be required to send out testing to the reference laboratory. Performed By: #### L 500.2500, L100.0100 #### [facility] [address] [place], [address] BUP Ur Drug Scr Negative Normal < 200 ng/mL [facility] Comment on above: Performed By: #### L 500.2500, L100.0100 #### [facility] [address] [place], [address] COCAINE Negative Normal < 300 ng/mL [facility] Comment on above: Performed By: #### L 500.2500, L100.0100 #### [facility] [address] [place], [address] Fentanyl Negative Normal [facility] Comment on above: Performed By: #### L 500.2500, L100.0100 #### [facility] [address] [place], [address] METHADONE Negative Normal < 300 ng/mL [facility] Comment on above: Performed By: #### L 500.2500, L100.0100 #### [facility] [address] [place], [address] OPIATES Negative Normal < 300 ng/mL [facility] Comment on above: Performed By: #### L 500.2500, L100.0100 #### [facility] [address] [place], [address] OXYCODONE Negative Normal < 100 ng/mL [facility] Comment on above: Performed By: #### L 500.2500, L100.0100 #### [facility] [address] [place], [address] PCP Negative Normal < 25 ng/mL [facility] Comment on above: Performed By: #### L 500.2500, L100.0100 #### [facility] [address] [place], [address] THC Positive Normal < 50 ng/mL [facility] Comment on above: Result Comment: If c onfirmation testing is needed, a separate order will be required to send out testing to the reference laboratory. Performed By: #### L 500.2500, L100.0100 #### [facility] [address] [facility] [place], [address] Urine benzodiazepine levelOr dered By: Ijeoma Garzon on 03-28-2025 Benzodiazepines Ql (U) Positive < 200 ng/mL [facility] Comment on above: If confirmation test ing is needed, a separate order will be required to send out testing to the reference laboratory. Urine cocaine levelOrdered B y: Ijeoma Garzon on 03-28-2025 Cocaine Ql (U) Negative < 300 ng/mL [facility] Urine vmnaj-1-aojjtkmvhnjyjs abinol (THC) measurementOrdered By: Ijeoma Garzon on 03-28-2025 Cannabinoids Screen Ql (U) Positive < 50 ng/mL [facility] Comment on above: If confirmation test ing is needed, a separate order will be required to send out testing to the reference laboratory. Urine phencyclidine (PCP) de tectionOrdered By: Ijeoma Garzon on 03-28-2025 Phencyclidine Ql (U) Negative < 25 ng/mL [facility] White blood cell (WBC) count Ordered By: Ijeoma Garzon on 03-28-2025 WBC (Bld) [#/Vol] 9.8 10*3/uL 4.4-11.0 [facility] Urine Cultureon 03-24-2025 URC #6 Gram positive nabila suggestive of a diphtheroid. Schmitt cath urine is not recommended. Growth may represent distal urethral carmela. Urine Culture Citrobacter braakii [place] Count >100,000 Providencia rettgeri Providencia rettgeri MORMOM [place] Count >100,000 Morganella morganii sp morgani [place] Count >100,000 Enterococcus faecalis Pseudomonas aeruginosa GPR [place] Count 1000-10,000 Enterococcus faecalis Cefepime Islt CHLOE [...] Morganella morganii sp morgani: REACTION Ampicillin Islt CHOLE R Ampicillin+Sulbac Islt CHLOE 4 S Ciprofloxacin [...] >=16 R Vancomycin Islt CHLOE 1 S [facility] Comment on above: Performed By: #### M 100.2200 #### [facility] [address] [place], [place], [id number] Absolute lymphocyte countOrd ered By: Nick Angelo on 03-19-2025 Lymphocytes Auto (Unsp spec) [#/Vol] 1.24 10*3/uL 0.83-4.51 [facility] Absolute neutrophil countOrd ered By: Nick Angelo on 03-19-2025 Neutrophils (Bld) [#/Vol] 2.4 10*3/uL 2.0-7.7 [facility] Alcohol, Blood (Medical)-Ser umon 03-19-2025 SERUM ETOH < 10.1 Normal <=10.0 [facility] Comment on above: Result Comment: This test is for medical purposes only. The legal definition of intoxication varies according to local law. Performed By: #### L 500.2500, L100.0100 #### [facility] [address] [place], [place], [id number] Amorphous sediment detection in urine sediment by light microscopyOrdered By: Nick Angelo on 03-19-2025 Amorphous sediment LM Ql (Urine sed) 2+ [facility] Amphetamine detection with 1 000 ng/mL as cutoffOrdered By: Nick Angelo on 03-19-2025 Amphetamines Screen method >1000 ng/mL Ql (U) Positive <1000 ng/mL [facility] Comment on above: If confirmation test ing is needed, a separate order will be required to send out testing to the reference laboratory. Amphetamines Screen method >1000 ng/mL Ql (U) Negative < 200 ng/mL [facility] Anion gap in Serum or Plasma Ordered By: Nick Angelo on 03-19-2025 Anion gap [Moles/Vol] 15 mmol/L 5-15 [facility] Automated lymphocyte count a s percentage of total leukocytesOrdered By: Nick Angelo on 03-19-2025 Lymphocytes/100 WBC Auto (Unsp spec) 29.3 % 19-41 [facility] BUN/creatinine ratioOrdered By: Nick Angelo on 03-19-2025 Urea nitrogen/Creatinine [Mass ratio] 10.7 mg/mg 10-20 [facility] Basophil percentageOrdered B y: Nick Angelo on 03-19-2025 Basophils/100 WBC (Bld) 1.7 % High 0-1 [facility] Bilirubin Test strip Ql (U)O rdered By: Nick Angelo on 03-19-2025 Bilirubin Ql (U) Negative Negative [facility] Bilirubin, totalOrdered By: Nick Angelo on 03-19-2025 Bilirubin [Mass/Vol] 0.62 mg/dL 0.00-1.30 [facility] CBC W/Diff, Automatedon 02-22 Absolute Lymph 1.24 X10 3/uL Normal 0.83-4.51 [facility] Comment on above: Performed By: #### L 700.6800, L100.0100, L501.9100, L505.5000, L500.4050 #### [facility] [address] [place], [address] Absolute Neut 2.4 X10 3/uL Normal 2.0-7.7 [facility] Comment on above: Performed By: #### L 700.6800, L100.0100, L501.9100, L505.5000, L500.4050 #### [facility] [address] [place], [address] Basophils/100 WBC (Bld) 1.7 % High 0-1 [facility] Comment on above: Performed By: #### L 700.6800, L100.0100, L501.9100, L505.5000, L500.4050 #### [facility] [address] [place], [address] Eosinophils/100 WBC (Bld) 4.0 % Normal 0-5 [facility] Comment on above: Performed By: #### L 700.6800, L100.0100, L501.9100, L505.5000, L500.4050 #### [facility] [address] [place], [address] Erythrocyte distribution width (RBC) [Ratio] 12.7 % Normal 11.6-14.6 [facility] Comment on above: Performed By: #### L 700.6800, L100.0100, L501.9100, L505.5000, L500.4050 #### [facility] [address] [place], [address] Hematocrit (Bld) [Volume fraction] 38.2 % Normal 37-47 [facility] Comment on above: Performed By: #### L 700.6800, L100.0100, L501.9100, L505.5000, L500.4050 #### [facility] [address] [place], [address] Hemoglobin (Bld) [Mass/Vol] 13.6 g/dL Normal 12.0-15.0 [facility] Comment on above: Performed By: #### L 700.6800, L100.0100, L501.9100, L505.5000, L500.4050 #### [facility] [address] [place], [address] IG% 0.000 Normal 0.0-0.9 [facility] Comment on above: Result Comment: IG% - Immature Granulocytes (promyelocytes, myelocytes and metamyelocytes) > 1% indicates that a LEFT SHIFT is Present. Performed By: #### L 700.6800, L100.0100, L501.9100, L505.5000, L500.4050 #### [facility] [address] [place], [address] Lymphocytes/100 WBC (Bld) 29.3 % Normal 19-41 [facility] Comment on above: Performed By: #### L 700.6800, L100.0100, L501.9100, L505.5000, L500.4050 #### [facility] [address] [place], [address] MCH (RBC) [Entitic mass] 34.0 pg High 27.0-32.0 [facility] Comment on above: Performed By: #### L 700.6800, L100.0100, L501.9100, L505.5000, L500.4050 #### [facility] [address] [place], [address] MCHC (RBC) [Mass/Vol] 35.6 g/dL Normal 32-36 [facility] Comment on above: Performed By: #### L 700.6800, L100.0100, L501.9100, L505.5000, L500.4050 #### [facility] [address] [place], [address] MCV (RBC) [Entitic vol] 95.5 fL Normal 81-99 [facility] Comment on above: Performed By: #### L 700.6800, L100.0100, L501.9100, L505.5000, L500.4050 #### [facility] [address] [place], [address] Monocytes/100 WBC (Bld) 8.3 % Normal 0-10 [facility] Comment on above: Performed By: #### L 700.6800, L100.0100, L501.9100, L505.5000, L500.4050 #### [facility] [address] [place], [address] Neutrophils/100 WBC (Bld) 56.7 % Normal 47-70 [facility] Comment on above: Performed By: #### L 700.6800, L100.0100, L501.9100, L505.5000, L500.4050 #### [facility] [address] [place], [address] Nucleated RBC (Bld) [#/Vol] 0 10*3/uL Normal 0-5 [facility] Comment on above: Performed By: #### L 700.6800, L100.0100, L501.9100, L505.5000, L500.4050 #### [facility] [address] [place], [address] Platelet mean volume (Bld) [Entitic vol] 10.2 fL Normal 6.2-12.0 [facility] Comment on above: Performed By: #### L 700.6800, L100.0100, L501.9100, L505.5000, L500.4050 #### [facility] [address] [place], [address] Platelets (Bld) [#/Vol] 257 10*3/uL Normal 150-450 [facility] Comment on above: Performed By: #### L 700.6800, L100.0100, L501.9100, L505.5000, L500.4050 #### [facility] [address] [place], [address] RBC (Bld) [#/Vol] 4.00 10*6/uL Low 4.2-5.4 [facility] Comment on above: Performed By: #### L 700.6800, L100.0100, L501.9100, L505.5000, L500.4050 #### [facility] [address] [place], [address] RDW SD 43.7 fl Normal 35.1-43.9 [facility] Comment on above: Performed By: #### L 700.6800, L100.0100, L501.9100, L505.5000, L500.4050 #### [facility] [address] [place], [address] WBC (Bld) [#/Vol] 4.2 10*3/uL Low 4.4-11.0 [facility] Comment on above: Performed By: #### L 700.6800, L100.0100, L501.9100, L505.5000, L500.4050 #### [facility] [address] [place], [address] Calcium oxalate crystals det ection in urine sediment by light microscopyOrdered By: Nick Angelo on 03-19-2025 Calcium oxalate crystals LM Ql (Urine sed) 2+ /hpf [facility] Carbon dioxide, total [Moles /volume] in Central venous bloodOrdered By: Nick Angelo on 03-19-2025 CO2 [Moles/Vol] 26.6 mmol/L 21.0-32.0 [facility] Chloride assayOrdered By: Luanne Angelo on 03-19-2025 Chloride [Moles/Vol] 97 mmol/L Low 98-108 [facility] Comprehensive Metabolic Prof ilon 03-19-2025 Albumin [Mass/Vol] 3.4 g/dL Low 3.5-5.0 [facility] Comment on above: Performed By: #### L 700.6800, L100.0100, L501.9100, L505.5000, L500.4050 #### [facility] [address] [place], [address] Albumin/Globulin [Mass ratio] 1.1 {ratio} Normal 0.9-2.4 [facility] Comment on above: Performed By: #### L 700.6800, L100.0100, L501.9100, L505.5000, L500.4050 #### [facility] [address] [place], [address] ALK PHOS 89 U/L Normal 35-104 [facility] Comment on above: Performed By: #### L 700.6800, L100.0100, L501.9100, L505.5000, L500.4050 #### [facility] [address] [place], [address] ALT [Catalytic activity/Vol] 20 U/L Normal <=34 [facility] Comment on above: Performed By: #### L 700.6800, L100.0100, L501.9100, L505.5000, L500.4050 #### [facility] [address] [place], [address] AST [Catalytic activity/Vol] 28 U/L Normal <=31 [facility] Comment on above: Performed By: #### L 700.6800, L100.0100, L501.9100, L505.5000, L500.4050 #### [facility] [address] [place], [address] Bilirubin [Mass/Vol] 0.62 mg/dL Normal 0.00-1.30 [facility] Comment on above: Performed By: #### L 700.6800, L100.0100, L501.9100, L505.5000, L500.4050 #### [facility] [address] [place], [address] BUN/CRE 10.7 RATIO Normal 10-20 [facility] Comment on above: Performed By: #### L 700.6800, L100.0100, L501.9100, L505.5000, L500.4050 #### [facility] [address] [place], [address] Calcium [Mass/Vol] 8.8 mg/dL Normal 7.6-11.0 [facility] Comment on above: Performed By: #### L 700.6800, L100.0100, L501.9100, L505.5000, L500.4050 #### [facility] [address] [place], [address] Chloride [Moles/Vol] 97 mmol/L Low 98-108 [facility] Comment on above: Performed By: #### L 700.6800, L100.0100, L501.9100, L505.5000, L500.4050 #### [facility] [address] [place], [address] CO2 [Moles/Vol] 26.6 mmol/L Normal 21.0-32.0 [facility] Comment on above: Performed By: #### L 700.6800, L100.0100, L501.9100, L505.5000, L500.4050 #### [facility] [address] [place], [address] Creatinine [Mass/Vol] 0.62 mg/dL Low 0.70-1.20 [facility] Comment on above: Performed By: #### L 700.6800, L100.0100, L501.9100, L505.5000, L500.4050 #### [facility] [address] [place], [address] ECRCL 122.96 ml/min Normal 50-250 [facility] Comment on above: Performed By: #### L 700.6800, L100.0100, L501.9100, L505.5000, L500.4050 #### [facility] [address] [place], [address] GAP 15 Normal 5-15 [facility] Comment on above: Performed By: #### L 700.6800, L100.0100, L501.9100, L505.5000, L500.4050 #### [facility] [address] [place], [address] GFR/1.73 sq M.predicted among non-blacks MDRD (S/P/Bld) [Vol rate/Area] 109 mL/min/{1.73_m2} Normal >60 [facility] Comment on above: Result Comment: mL/m in/1.73m2 CKD-EPI Creatinine Equation (2020) Performed By: #### L 700.6800, L100.0100, L501.9100, L505.5000, L500.4050 #### [facility] [address] [place], [address] Globulin (S) [Mass/Vol] 3.0 g/dL Normal 2.2-4.2 [facility] Comment on above: Performed By: #### L 700.6800, L100.0100, L501.9100, L505.5000, L500.4050 #### [facility] [address] [place], [address] Glucose [Mass/Vol] 90 mg/dL Normal 70-99 [facility] Comment on above: Performed By: #### L 700.6800, L100.0100, L501.9100, L505.5000, L500.4050 #### [facility] [address] [place], [address] Potassium [Moles/Vol] 3.3 mmol/L Normal 3.3-5.1 [facility] Comment on above: Performed By: #### L 700.6800, L100.0100, L501.9100, L505.5000, L500.4050 #### [facility] [address] [place], [address] Sodium [Moles/Vol] 139 mmol/L Normal 133-145 [facility] Comment on above: Performed By: #### L 700.6800, L100.0100, L501.9100, L505.5000, L500.4050 #### [facility] [address] [place], [address] T PROT 6.4 g/dL Normal 5.9-8.4 [facility] Comment on above: Performed By: #### L 700.6800, L100.0100, L501.9100, L505.5000, L500.4050 #### [facility] [address] [place], [address] Urea nitrogen [Mass/Vol] 7 mg/dL Normal 4-19 [facility] Comment on above: Performed By: #### L 700.6800, L100.0100, L501.9100, L505.5000, L500.4050 #### [facility] [address] [place], [address] Emergency Department Summary on 03-19-2025 Emergency Department Summary [facility] Medical Records Department [address] [place] [address] Emergency Department Summary 03/19/25 MR#: [id number] Acct: [id number] Name: KATARZYNA VARGAS Rep #: [id number] : 1975 50 From: Nick Angelo DO [...] RO (more content not included)... Normal [facility] Eosinophil percentageOrdered By: Nick Angelo on 03-19-2025 Eosinophils/100 WBC (Bld) 4.0 % 0-5 [facility] Erythrocyte distribution wid th ratioOrdered By: Nick Angelo on 03-19-2025 Erythrocyte distribution width (RBC) [Ratio] 12.7 % 11.6-14.6 [facility] Erythrocyte distribution wid th standard deviationOrdered By: Nick Angelo on 03-19-2025 Erythrocyte distribution width (RBC) [Ratio] 43.7 fl 35.1-43.9 [facility] Glomerular filtration rate ( GFR) estimation/1.73 sq m using serum, plasma, or whole bOrdered By: Nick Angelo on 03-19-2025 GFR/1.73 sq M.predicted among non-blacks MDRD (S/P/Bld) [Vol rate/Area] 109 mL/min/{1.73_m2} >60 [facility] Comment on above: mL/min/1.73m2 CKD-EP I Creatinine Equation (2020) Hematocrit Auto (Bld) [Volum e fraction]Ordered By: Nick Angelo on 03-19-2025 Hematocrit (Bld) [Volume fraction] 38.2 % 37-47 [facility] Hemoglobin measurementOrdere d By: Nick Angelo on 03-19-2025 Hemoglobin (Bld) [Mass/Vol] 13.6 g/dL 12.0-15.0 [facility] Immature granulocytes/100 WB C Auto (Bld)Ordered By: Nick Angelo on 03-19-2025 Immature granulocytes/100 WBC (Bld) 0.000 % 0.0-0.9 [facility] Comment on above: IG% - Immature Granu locytes (promyelocytes, myelocytes and metamyelocytes) > 1% indicates that a LEFT SHIFT is Present. Ketones Test strip Ql (U)Ord ered By: Nick Angelo on 03-19-2025 Ketones Ql (U) Negative Negative [facility] Laboratory - Chemistry and C hemistry - challengeOrdered By: Nick Angelo on 03-19-2025 AST [Catalytic activity/Vol] 28 U/L <32 [facility] MCV (mean corpuscular volume ) determinationOrdered By: Nick Angelo on 03-19-2025 MCV (RBC) [Entitic vol] 95.5 fL 81-99 [facility] Mean corpuscular hemoglobin (MCH) determinationOrdered By: Nick Angelo on 03-19-2025 MCH (RBC) [Entitic mass] 34.0 pg High 27.0-32.0 [facility] Mean corpuscular hemoglobin concentration (MCHC) determinationOrdered By: Nick Angelo on 03-19-2025 MCHC (RBC) [Mass/Vol] 35.6 g/dL 32-36 [facility] Mean platelet volume determi nationOrdered By: Nick Angelo on 03-19-2025 Platelet mean volume (Bld) [Entitic vol] 10.2 fL 6.2-12.0 [facility] Microscopic analysis of urin e for red blood cells (RBC)Ordered By: Nick Angelo on 03-19-2025 Microscopic analysis of urine for red blood cells (RBC) 0-5 SEEN /hpf 0-5 [facility] Monocyte percentageOrdered B y: Nick Angelo on 03-19-2025 Monocytes/100 WBC (Bld) 8.3 % 0-10 [facility] Mucus LM Ql (Urine sed)Order ed By: Nick Angelo on 03-19-2025 Mucus Ql (Urine sed) 0 SEEN /hpf [facility] Neutrophil percentageOrdered By: Nick Angelo on 03-19-2025 Neutrophils/100 WBC (Bld) 56.7 % 47-70 [facility] Nitrite Test strip Ql (U)Ord ered By: Nick Angelo on 03-19-2025 Nitrite Ql (U) Positive High Negative [facility] No Panel InformationOrdered By: Nick Angelo on 03-19-2025 Urine Buprenorphine Qualitative Negative < 200 ng/mL [facility] Urine Oxycodone Screen Negative < 100 ng/mL [facility] Nucleated red blood cell per centageOrdered By: Nick Angelo on 03-19-2025 Nucleated RBC/100 WBC (Bld) [Ratio] 0 % 0-5 [facility] Platelet countOrdered By: Luanne Angelo on 03-19-2025 Platelets (Bld) [#/Vol] 257 10*3/uL 150-450 [facility] Potassium measurement (mass/ volume)Ordered By: Nick Angelo on 03-19-2025 Potassium (Unsp spec) [Mass/Vol] 3.3 mmol/L 3.3-5.1 [facility] ,Serum,hCG Quali.on 03-19-2025 HCG, SERUM QUAL Negative Normal [facility] Comment on above: Performed By: #### L 700.6800, L100.0100, L501.9100, L505.5000, L500.4050 #### [facility] [address] [place] [address], [id number] Protein Test strip Ql (U)Ord ered By: Nick Angelo on 03-19-2025 Protein Ql (U) 30 mg/dl High Negative [facility] Quantitative urine opiates m easurementOrdered By: Nick Angelo on 03-19-2025 Opiates Ql (U) Negative < 300 ng/mL [facility] RBC Auto (Bld) [#/Vol]Ordere d By: Nick Angelo on 03-19-2025 RBC (Bld) [#/Vol] 4.00 10*6/uL Low 4.2-5.4 [facility] Screening urine fentanyl annie surementOrdered By: Nick Angelo on 03-19-2025 fentaNYL Screen Ql (U) Negative [facility] Serum beta-hCG test, qualita tiveOrdered By: Nick Angelo on 03-19-2025 Beta HCG ( test) Ql Negative [facility] Serum creatinine measurement (mass/volume)Ordered By: Nick Angelo on 03-19-2025 Creatinine [Mass/Vol] 0.62 mg/dL Low 0.70-1.20 [facility] Serum globulin measurementOr dered By: Nick Angelo on 03-19-2025 Globulin (S) [Mass/Vol] 3.0 g/dL 2.2-4.2 [facility] Serum glucose measurement (m ass/volume)Ordered By: Nick Angelo on 03-19-2025 Glucose [Mass/Vol] 90 mg/dL 70-99 [facility] Serum or plasma alanine hensley otransferase (ALT) measurementOrdered By: Nick Angelo on 03-19-2025 ALT [Catalytic activity/Vol] 20 U/L <35 [facility] Serum or plasma albumin heena urement (mass/volume)Ordered By: Nick Angelo on 03-19-2025 Albumin [Mass/Vol] 3.4 g/dL Low 3.5-5.0 [facility] Serum or plasma albumin/glob ulin mass ratioOrdered By: Nick Angelo on 03-19-2025 Albumin/Globulin [Mass ratio] 1.1 {ratio} 0.9-2.4 [facility] Serum or plasma alkaline sandra sphatase measurementOrdered By: Nick Angelo on 03-19-2025 ALP [Catalytic activity/Vol] 89 U/L 35-104 [facility] Serum or plasma calcium heena urement (mass/volume)Ordered By: Nick Angelo on 03-19-2025 Calcium [Mass/Vol] 8.8 mg/dL 7.6-11.0 [facility] Serum or plasma ethanol heena urement (mass/volume)Ordered By: Nick Angelo on 03-19-2025 Ethanol [Mass/Vol] mg/dL <10.1 [facility] Comment on above: This test is for med ical purposes only. The legal definition of intoxication varies according to local law. Serum or plasma urea nitroge n measurement (mass/volume)Ordered By: Nick Angelo on 03-19-2025 Urea nitrogen [Mass/Vol] 7 mg/dL 4-19 [facility] Sodium levelOrdered By: Nick Angelo on 03-19-2025 Sodium [Moles/Vol] 139 mmol/L 133-145 [facility] Squamous epithelial cells de tection in urine sediment by light microscopyOrdered By: Nick Angelo on 03-19-2025 Epithelial cells.squamous LM Ql (Urine sed) 0-5 SEEN /hpf 5-10 [facility] Total proteinOrdered By: Anamika Angelo on 03-19-2025 Protein [Mass/Vol] 6.4 g/dL 5.9-8.4 [facility] Urinalysis, Completeon 03-19 AMORPHOUS 2+ Normal [facility] Comment on above: Order Comment: CLEAN CATCH Performed By: #### L 400.0001 #### [facility] [address] [place], [address] EPI,SQUAMOUS 0-5 SEEN Normal 5-10 [facility] Comment on above: Order Comment: CLEAN CATCH Performed By: #### L 400.0001 #### [facility] [address] [place], [address] RBC 0-5 SEEN Normal 0-5 [facility] Comment on above: Order Comment: CLEAN CATCH Performed By: #### L 400.0001 #### [facility] [address] [place], [address] BACTERIA 3+ /hpf Normal None Seen [facility] Comment on above: Order Comment: CLEAN CATCH Performed By: #### L 400.0001 #### [facility] [address] [place], [address] CA OX CRYSTAL 2+ /hpf Normal [facility] Comment on above: Order Comment: CLEAN CATCH Performed By: #### L 400.0001 #### [facility] [address] [place], [address] WBC 10-25 SEEN Normal 0-5 [facility] Comment on above: Order Comment: CLEAN CATCH Performed By: #### L 400.0001 #### [facility] [address] [place], [address] Mucus Ql (Urine sed) 0 SEEN Normal [facility] Comment on above: Order Comment: CLEAN CATCH Performed By: #### L 400.0001 #### [facility] [address] [place], [address] Urine Drug Screen (VISTA)on 03-19-2025 AMPHETAMINES Positive Normal <1000 ng/mL [facility] Comment on above: Result Comment: If c onfirmation testing is needed, a separate order will be required to send out testing to the reference laboratory. Performed By: #### L 500.2500, L100.0100 #### [facility] [address] [place], [address] BARBITIURATES Negative Normal < 200 ng/mL [facility] Comment on above: Performed By: #### L 500.2500, L100.0100 #### [facility] [address] [place], [address] BENZODIAZIPINE Positive Normal < 200 ng/mL [facility] Comment on above: Result Comment: If c onfirmation testing is needed, a separate order will be required to send out testing to the reference laboratory. Performed By: #### L 500.2500, L100.0100 #### [facility] [address] [place], [address] BUP Ur Drug Scr Negative Normal < 200 ng/mL [facility] Comment on above: Performed By: #### L 500.2500, L100.0100 #### [facility] [address] [place], [address] COCAINE Negative Normal < 300 ng/mL [facility] Comment on above: Performed By: #### L 500.2500, L100.0100 #### [facility] [address] [place], [address] Fentanyl Negative Normal [facility] Comment on above: Performed By: #### L 500.2500, L100.0100 #### [facility] [address] [place], [address] METHADONE Negative Normal < 300 ng/mL [facility] Comment on above: Performed By: #### L 500.2500, L100.0100 #### [facility] [address] [place], [address] OPIATES Negative Normal < 300 ng/mL [facility] Comment on above: Performed By: #### L 500.2500, L100.0100 #### [facility] [address] [place], [address] OXYCODONE Negative Normal < 100 ng/mL [facility] Comment on above: Performed By: #### L 500.2500, L100.0100 #### [facility] [address] [place], [place], [facility] PCP Negative Normal < 25 ng/mL [facility] Comment on above: Performed By: #### L 500.2500, L100.0100 #### [facility] [address] [place], [address] THC Positive Normal < 50 ng/mL [facility] Comment on above: Result Comment: If c onfirmation testing is needed, a separate order will be required to send out testing to the reference laboratory. Performed By: #### L 500.2500, L100.0100 #### [facility] [address] [place], [address] Urine benzodiazepine levelOr dered By: Nick Angelo on 03-19-2025 Benzodiazepines Ql (U) Positive < 200 ng/mL [facility] Comment on above: If confirmation test ing is needed, a separate order will be required to send out testing to the reference laboratory. Urine clarityOrdered By: Anamika Angelo on 03-19-2025 Clarity (U) Cloudy Clear [facility] Urine cocaine levelOrdered B y: Nick Angelo on 03-19-2025 Cocaine Ql (U) Negative < 300 ng/mL [facility] Urine color determinationOrd ered By: Nick Angelo on 03-19-2025 Color (U) Yellow Yellow [facility] Urine cultureOrdered By: Anamika Angelo on 03-19-2025 Bacteria identified Cx Nom (U) Citrobacter braakii Abnormal [facility] Bacteria identified Cx Nom (U) Providencia rettgeri Abnormal [facility] Bacteria identified Cx Nom (U) Morganella morganii sp morgani Abnormal [facility] Bacteria identified Cx Nom (U) Pseudomonas aeruginosa Abnormal [facility] Bacteria identified Cx Nom (U) Enterococcus faecalis Abnormal [facility] Bacteria identified Cx Nom (U) Positive Abnormal [facility] Urine npgsa-2-vjyqpwbpyzblum abinol (THC) measurementOrdered By: Nick Angelo on 03-19-2025 Cannabinoids Screen Ql (U) Positive < 50 ng/mL [facility] Comment on above: If confirmation test ing is needed, a separate order will be required to send out testing to the reference laboratory. Urine glucose detectionOrder ed By: Nick Angelo on 03-19-2025 Glucose Ql (U) Normal mg/dl Normal [facility] Urine leukocyte esterase det ection by dipstickOrdered By: Nick Angelo on 03-19-2025 Leukocyte esterase Test strip Ql (U) 500 /ul High Negative [facility] Urine pHOrdered By: Nick jenkins on 03-19-2025 pH (U) 8.0 [pH] 5.0 - 8.0 [facility] Urine phencyclidine (PCP) de tectionOrdered By: Nick Angelo on 03-19-2025 Phencyclidine Ql (U) Negative < 25 ng/mL [facility] Urine sediment bacteria coun t by microscopy (number/high power field)Ordered By: Nick Angelo on 03-19-2025 Bacteria LM.HPF (Urine sed) [#/Area] 3 /[HPF] None Seen [facility] Urine specific gravity measu rementOrdered By: Nick Angelo on 03-19-2025 Specific gravity (U) [Rel density] 1.015 1.002-1.030 [facility] Urine urobilinogen measureme ntOrdered By: Nick Angelo on 03-19-2025 Urobilinogen Ql (U) 1 mg/dl High Normal [facility] White blood cell (WBC) count Ordered By: Nick Angelo on 03-19-2025 WBC (Bld) [#/Vol] 4.2 10*3/uL Low 4.4-11.0 [facility] White blood cell countOrdere d By: Nick Angelo on 03-19-2025 White blood cell count 10-25 SEEN /hpf 0-5 [facility] CNPNon 03-11-2025 CNPN Telephone (UROLWS) -------- KATARZYNA VARGAS ([id number]) 1975 F [facility] Date Time Provider Department 03/11/25 RUSH MAXWELL During your visit today, we recorded the following information about you: Bambi Thomas LPN 03/11/2025 2:56 PM Signed Received fax from [facility] that patient was concerned about urinary output. [...] Date 03/11/2025 (more content not included)... Normal [facility] CNNURSEon 02-02-2025 CNNURSE Nurse Visit (UROLWS) -------- KATARZYNA VARGAS ([id number]) 1975 F [facility] Date Time Provider Department 02/02/25 2:40 PM NURSE UROL [facility] UROLWS During your visit today, we [...] ORALIA Ray MA Referring Provider: RUSH MAXWELL [[id number]] Allergies As of Date: 02/02/2025 Noted Allergy [...] area twice (more content not included)... [facility] KATARZYNA VARGAS ([id number]) 1975 F [facility] Date Time Provider Department 01/06/25 RUSH MAXWELL During your visit today, we recorded the following information about you: Bambi Thomas LPN 01/06/2025 1:27 PM Signed Received fax from [facility]. Faxed signed by Rush Maxwell PA-C order for drain bag with double pattern changer. 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 [facility] ([facility] -------- KATARZYNA VARGAS ([id number]) 1975 F [facility] Date Time Provider Department 01/05/25 2:40 PM [facility] During your visit today, we recorded the following information about you: Yessy Mares MA 01/05/2025 2:55 PM Signed Suprapubic catheter change performed as ordered. A [address] schmitt catheter with 30ml balloon [...] for nause (more content not included)... Normal [facility] CNNURSEon 12-08-2024 CNNURSE Nurse Visit (UROLWS) -------- KATARZYNA VARGAS ([id number]) 1975 F [facility] Date Time Provider Department 12/08/24 2:40 PM [facility] During your visit today, we recorded [...] mL suspensio (more content not included)... Normal [facility] KATARZYNA VARGAS ([id number]) 1975 F [facility] Date Time Provider Department 11/03/24 2:40 PM NURSE UROL [facility] UROLWS During your visit today, we [...] mL suspe (more content not included)... Normal [facility] Stress Reporton 10-07-2024 Stress Report [facility] Services [address] [place] [address] MR#: [id number] Acct: [id number] Name: KATARZYNA VARGAS Rep #: [id number] : 1975 49 From: Homar Wiley MD [...] Dictated: 10/07/24 1200 Date Transcribed: 10/07/24 1200 Hand Slitter: CO Signed Normal [facility] CNNURSEon 10-06-2024 CNNURSE Nurse Visit (UROLWS) -------- KATARZYNA VARGAS ([id number]) 1975 F [facility] Date Time Provider Department 10/06/24 2:40 PM NURSE UROL [facility] UROLWS During your visit today, [...] affected area (more content not included)... Normal [facility] 12 Lead EKGon 09-25-2024 12 Lead EKG [facility] Cardiovascular Services [address] [place] [address] 12 Lead EKG 09/25/24 0900 MR#: [id number] Acct: [id number] Name: KATARZYNA VARGAS Rep #: [id number] : 1975 49 From: Homar Wiley MD [...] consider lateral ischemia Abnormal ECG Confirmed by HOMAR WILEY MD ([id number]), editorial director ERICK WIGGINS ([id number]) on 09/28/2024 7:59:44 AM Referred By: Confirmed By: HOMAR WILEY MD 09/28/24 0759 Date Homar Wiley MD CC: Dr. Souleymane Fragoso MD; Dr. Darrel Veloz DO Signed Normal [facility] Basic Metabolic Profile (BMP )on 09-25-2024 BUN/CRE 7.1 RATIO Low 10-20 [facility] Comment on above: Order Comment: 1Y Performed By: #### L 500.2500, L100.0100 #### [facility] [address] [place], [address] CA,Total 10.4 mg/dL High 8.5-10.1 [facility] Comment on above: Order Comment: 1Y Performed By: #### L 500.2500, L100.0100 #### [facility] [address] [place], [address] Chloride [Moles/Vol] 92 mmol/L Low 98-107 [facility] Comment on above: Order Comment: 1Y Performed By: #### L 500.2500, L100.0100 #### [facility] [address] [place], [address] CO2 [Moles/Vol] 32.0 mmol/L Normal 21.0-32.0 [facility] Comment on above: Order Comment: 1Y Performed By: #### L 500.2500, L100.0100 #### [facility] [address] [place], [address] Creatinine [Mass/Vol] 1.12 mg/dL High 0.55-1.02 [facility] Comment on above: Order Comment: 1Y Result Comment: The validity of the calculated GFR GFRAA in patients over 70 years has not been determined. Clinical correlation is essential. Performed By: #### L 500.2500, L100.0100 #### [facility] [address] [place], [address] ECRCL 80.12 ml/min Normal [facility] Comment on above: Order Comment: 1Y Performed By: #### L 500.2500, L100.0100 #### [facility] [address] [place], [address] EST GFR - AA 67 mL/min Normal >60 [facility] Comment on above: Order Comment: 1Y Result Comment: Afri can Lithuanian GFR Calc Performed By: #### L 500.2500, L100.0100 #### [facility] [address] [place], [address] GAP 10 Normal 5-15 [facility] Comment on above: Order Comment: 1Y Performed By: #### L 500.2500, L100.0100 #### [facility] [address] [place], [address] GFR/1.73 sq M.predicted among non-blacks MDRD (S/P/Bld) [Vol rate/Area] 55 mL/min/{1.73_m2} Low >60 [facility] Comment on above: Order Comment: 1Y Result Comment: Non- GFR Calc Performed By: #### L 500.2500, L100.0100 #### [facility] [address] [place], [address] Glucose [Mass/Vol] 77 mg/dL Normal 74-106 [facility] Comment on above: Order Comment: 1Y Performed By: #### L 500.2500, L100.0100 #### [facility] [address] [place], [address] Potassium [Moles/Vol] 2.6 mmol/L Invalid Interpretation Code 3.5-5.1 [facility] Comment on above: Order Comment: 1Y Performed By: #### L 500.2500, L100.0100 #### [facility] [address] [place], [address] Sodium [Moles/Vol] 134 mmol/L Low 136-145 [facility] Comment on above: Order Comment: 1Y Performed By: #### L 500.2500, L100.0100 #### [facility] [address] [place], [address] Urea nitrogen [Mass/Vol] 8 mg/dL Normal 7-18 [facility] Comment on above: Order Comment: 1Y Performed By: #### L 500.2500, L100.0100 #### [facility] [address] [place], [address] CBC W/Diff, Automatedon 01-0 3-5 Absolute Lymph 2.03 X10 3/uL Normal 0.83-4.51 [facility] Comment on above: Performed By: #### L 500.2500, L100.0100 #### [facility] [address] [place], [address] Absolute Neut 3.6 X10 3/uL Normal 2.0-7.7 [facility] Comment on above: Performed By: #### L 500.2500, L100.0100 #### [facility] [address] [place], [address] Basophils/100 WBC (Bld) 1.7 % High 0-1 [facility] Comment on above: Performed By: #### L 500.2500, L100.0100 #### [facility] [address] [place], [address] Eosinophils/100 WBC (Bld) 2.4 % Normal 0-5 [facility] Comment on above: Performed By: #### L 500.2500, L100.0100 #### [facility] [address] [place], [address] Erythrocyte distribution width (RBC) [Ratio] 12.0 % Normal 11.6-14.6 [facility] Comment on above: Performed By: #### L 500.2500, L100.0100 #### [facility] [address] [place], [address] Hematocrit (Bld) [Volume fraction] 51.7 % High 37-47 [facility] Comment on above: Performed By: #### L 500.2500, L100.0100 #### [facility] [address] [place], [address] Hemoglobin (Bld) [Mass/Vol] 17.7 g/dL High 12.0-15.0 [facility] Comment on above: Performed By: #### L 500.2500, L100.0100 #### [facility] [address] [place], [address] IG% 0.200 Normal 0.0-0.9 [facility] Comment on above: Result Comment: IG% - Immature Granulocytes (promyelocytes, myelocytes and metamyelocytes) > 1% indicates that a LEFT SHIFT is Present. Performed By: #### L 500.2500, L100.0100 #### [facility] [address] [place], [address] Lymphocytes/100 WBC (Bld) 30.9 % Normal 19-41 [facility] Comment on above: Performed By: #### L 500.2500, L100.0100 #### [facility] [address] [place], [address] MCH (RBC) [Entitic mass] 31.8 pg Normal 27.0-32.0 [facility] Comment on above: Performed By: #### L 500.2500, L100.0100 #### [facility] [address] [place], [address] MCHC (RBC) [Mass/Vol] 34.2 g/dL Normal 32-36 [facility] Comment on above: Performed By: #### L 500.2500, L100.0100 #### [facility] [address] [place], [address] MCV (RBC) [Entitic vol] 92.8 fL Normal 81-99 [facility] Comment on above: Performed By: #### L 500.2500, L100.0100 #### [facility] [address] [place], [address] Monocytes/100 WBC (Bld) 9.8 % Normal 0-10 [facility] Comment on above: Performed By: #### L 500.2500, L100.0100 #### [facility] [address] [place], [address] Neutrophils/100 WBC (Bld) 55.0 % Normal 47-70 [facility] Comment on above: Performed By: #### L 500.2500, L100.0100 #### [facility] [address] [place], [address] Nucleated RBC (Bld) [#/Vol] 0 10*3/uL Normal 0-5 [facility] Comment on above: Performed By: #### L 500.2500, L100.0100 #### [facility] [address] [place], [address] Platelet mean volume (Bld) [Entitic vol] 11.8 fL Normal 6.2-12.0 [facility] Comment on above: Performed By: #### L 500.2500, L100.0100 #### [facility] [address] [place], [address] Platelets (Bld) [#/Vol] 208 10*3/uL Normal 150-450 [facility] Comment on above: Performed By: #### L 500.2500, L100.0100 #### [facility] [address] [place], [address] RBC (Bld) [#/Vol] 5.57 10*6/uL High 4.2-5.4 [facility] Comment on above: Performed By: #### L 500.2500, L100.0100 #### [facility] [address] [place], [address] RDW SD 41.2 fl Normal 35.1-43.9 [facility] Comment on above: Performed By: #### L 500.2500, L100.0100 #### [facility] [address] [place], [place], [address] WBC (Bld) [#/Vol] 6.6 10*3/uL Normal 4.4-11.0 [facility] Comment on above: Performed By: #### L 500.2500, L100.0100 #### [facility] [address] [place], [address] Chest 1 View (Portable)on Chest 1 View (Portable) [facility] Imaging Services [address] [place], [place] [address] Chest 1 View (Portable) MR#: [id number] Acct: [id number] Name: KATARZYNA VARGAS Rep #: [id number] : 1975 F 49 From: David Domínguez MD PCP: Dr. Darrel Veloz DO Status: REG ER Study: Chest 1 View (Portable) Date of Exam: 09/25/24 Exam# [id number] Ordering Dr: Souleymane Fragoso MD [id number] EXAM: XR CHEST, 1 VIEW CLINICAL INDICATION: [...] Souleymane Fragoso MD; Dr. Darrel Veloz DO Hand Slitter: Signed Normal [facility] Emergency Department Summary on 09-25-2024 Emergency Department Summary [facility] Medical Records Department [address] [place] [address] Emergency Department Summary 09/25/24 MR#: [id number] Acct: [id number] Name: KATARZYNA VARGAS Rep #: [id number] : 1975 49 From: Souleymane Fragoso MD PCP: Dr. Darrel Veloz, DO Status:REG ER Location: ED HPI History of Present Illness Chief Complaint: Chest Pain Informant: patient and EMS Narrative Narrative: 49-year-old female sent by EMS from [facility] because of chest discomfort. She states it is gone right now. She states she has been in [facility] for about a week, but the symptoms have been coming and going for weeks. She states today it went into her left shoulder and upper arm a little. When it occurs in her chest that is on the left side without radiation usually. Sometimes has some mild dyspnea. Today she states someone at the correction checked her blood pressure and it was [...] transition out of wheelchair on her own. PFSH PFS Medical History Functional dyspepsia Acute [...] ar (more content not included)... Normal [facility] L501.4020on 09-25-2024 TROPONIN-I HS 13 pg/mL Normal 3.0-54.0 [facility] Comment on above: Result Comment: Toshia sibley Note: New Test Units and Gender Specific Reference Ranges. For more information see Policy Stat Procedure [place] High Sensitivity Troponin (TNIH) and attachments. Performed By: #### L 500.2500, L100.0100 #### [facility] [address] [place], [address] L501.5425on 09-25-2024 TROPONIN-I HS 14 pg/mL Normal 3.0-54.0 [facility] Comment on above: Order Comment: CLEAN CATCH Result Comment: Crit ical Result(s) Called at: 09:58:02 09/25/2024 by: Ammy Milton to Macrina Hamm. Results read back by same. Please Note: New Test Units and Gender Specific Reference Ranges. For more information see Policy Stat Procedure [place] High Sensitivity Troponin (TNIH) and attachments. Performed By: #### L 400.0001 #### [facility] [address] [place], [address] CBC W/Diff, Automatedon 12-2 Absolute Lymph 1.89 X10 3/uL Normal 0.83-4.51 [facility] Comment on above: Performed By: #### L 500.2500, L100.0100 #### [facility] [address] [place], [address] Absolute Neut 4.0 X10 3/uL Normal 2.0-7.7 [facility] Comment on above: Performed By: #### L 500.2500, L100.0100 #### [facility] [address] [place], [address] Basophils/100 WBC (Bld) 0.9 % Normal 0-1 [facility] Comment on above: Performed By: #### L 500.2500, L100.0100 #### [facility] [address] [place], [address] Eosinophils/100 WBC (Bld) 1.4 % Normal 0-5 [facility] Comment on above: Performed By: #### L 500.2500, L100.0100 #### [facility] [address] [place], [address] Erythrocyte distribution width (RBC) [Ratio] 12.8 % Normal 11.6-14.6 [facility] Comment on above: Performed By: #### L 500.2500, L100.0100 #### [facility] [address] [place], [address] Hematocrit (Bld) [Volume fraction] 46.1 % Normal 37-47 [facility] Comment on above: Performed By: #### L 500.2500, L100.0100 #### [facility] [address] [place], [address] Hemoglobin (Bld) [Mass/Vol] 15.0 g/dL Normal 12.0-15.0 [facility] Comment on above: Performed By: #### L 500.2500, L100.0100 #### [facility] [address] [place], [address] IG% 0.200 Normal 0.0-0.9 [facility] Comment on above: Result Comment: IG% - Immature Granulocytes (promyelocytes, myelocytes and metamyelocytes) > 1% indicates that a LEFT SHIFT is Present. Performed By: #### L 500.2500, L100.0100 #### [facility] [address] [place], [address] Lymphocytes/100 WBC (Bld) 28.8 % Normal 19-41 [facility] Comment on above: Performed By: #### L 500.2500, L100.0100 #### [facility] [address] [place], [address] MCH (RBC) [Entitic mass] 31.6 pg Normal 27.0-32.0 [facility] Comment on above: Performed By: #### L 500.2500, L100.0100 #### [facility] [address] [place], [address] MCHC (RBC) [Mass/Vol] 32.5 g/dL Normal 32-36 [facility] Comment on above: Performed By: #### L 500.2500, L100.0100 #### [facility] [address] [place], [address] MCV (RBC) [Entitic vol] 97.3 fL Normal 81-99 [facility] Comment on above: Performed By: #### L 500.2500, L100.0100 #### [facility] [address] [place], [address] Monocytes/100 WBC (Bld) 8.1 % Normal 0-10 [facility] Comment on above: Performed By: #### L 500.2500, L100.0100 #### [facility] [address] [place], [address] Neutrophils/100 WBC (Bld) 60.6 % Normal 47-70 [facility] Comment on above: Performed By: #### L 500.2500, L100.0100 #### [facility] [address] [place], [address] Nucleated RBC (Bld) [#/Vol] 0 10*3/uL Normal 0-5 [facility] Comment on above: Performed By: #### L 500.2500, L100.0100 #### [facility] [address] [place], [address] Platelet mean volume (Bld) [Entitic vol] 10.9 fL Normal 6.2-12.0 [facility] Comment on above: Performed By: #### L 500.2500, L100.0100 #### [facility] [address] [place], [address] Platelets (Bld) [#/Vol] 222 10*3/uL Normal 150-450 [facility] Comment on above: Performed By: #### L 500.2500, L100.0100 #### [facility] [address] [place], [address] RBC (Bld) [#/Vol] 4.74 10*6/uL Normal 4.2-5.4 [facility] Comment on above: Performed By: #### L 500.2500, L100.0100 #### [facility] [address] [place], [address] RDW SD 45.7 fl High 35.1-43.9 [facility] Comment on above: Performed By: #### L 500.2500, L100.0100 #### [facility] [address] [place], [address] WBC (Bld) [#/Vol] 6.6 10*3/uL Normal 4.4-11.0 [facility] Comment on above: Performed By: #### L 500.2500, L100.0100 #### [facility] [address] [place], [address] Comprehensive Metabolic Prof ilon 09-11-2024 Albumin [Mass/Vol] 3.8 g/dL Normal 3.2-5.0 [facility] Comment on above: Performed By: #### L 500.2500, L100.0100 #### [facility] [address] [place], [address] Albumin/Globulin [Mass ratio] 1.0 {ratio} Normal 0.9-2.4 [facility] Comment on above: Performed By: #### L 500.2500, L100.0100 #### [facility] [address] [place], [address] ALK P 115 U/L Normal 45-117 [facility] Comment on above: Performed By: #### L 500.2500, L100.0100 #### [facility] [address] [place], [address] ALT [Catalytic activity/Vol] 69 U/L High 13-56 [facility] Comment on above: Performed By: #### L 500.2500, L100.0100 #### [facility] [address] [place], [address] AST [Catalytic activity/Vol] 27 U/L Normal 15-37 [facility] Comment on above: Performed By: #### L 500.2500, L100.0100 #### [facility] [address] [place], [address] Bilirubin [Mass/Vol] 0.80 mg/dL Normal 0.20-1.00 [facility] Comment on above: Result Comment: For patients on eltrombopag therapy, use of Dimension [place] TBIL is not recommended. Performed By: #### L 500.2500, L100.0100 #### [facility] [address] [place], [address] BUN/CRE 12.7 RATIO Normal 10-20 [facility] Comment on above: Performed By: #### L 500.2500, L100.0100 #### [facility] [address] [place], [address] CA,Total 9.3 mg/dL Normal 8.5-10.1 [facility] Comment on above: Performed By: #### L 500.2500, L100.0100 #### [facility] [address] [place], [address] Chloride [Moles/Vol] 102 mmol/L Normal 98-107 [facility] Comment on above: Performed By: #### L 500.2500, L100.0100 #### [facility] [address] [place], [address] CO2 [Moles/Vol] 30.0 mmol/L Normal 21.0-32.0 [facility] Comment on above: Performed By: #### L 500.2500, L100.0100 #### [facility] [address] [place], [address] Creatinine [Mass/Vol] 0.95 mg/dL Normal 0.55-1.02 [facility] Comment on above: Result Comment: The validity of the calculated GFR GFRAA in patients over 70 years has not been determined. Clinical correlation is essential. Performed By: #### L 500.2500, L100.0100 #### [facility] [address] [place], [address] EST GFR - AA 81 mL/min Normal >60 [facility] Comment on above: Result Comment: Afri can Lithuanian GFR Calc Performed By: #### L 500.2500, L100.0100 #### [facility] [address] [place], [address] GAP 5 Normal 5-15 [facility] Comment on above: Performed By: #### L 500.2500, L100.0100 #### [facility] [address] [place], [address] GFR/1.73 sq M.predicted among non-blacks MDRD (S/P/Bld) [Vol rate/Area] 67 mL/min/{1.73_m2} Normal >60 [facility] Comment on above: Result Comment: Non- GFR Calc Performed By: #### L 500.2500, L100.0100 #### [facility] [address] [place], [address] Globulin (S) [Mass/Vol] 4.0 g/dL Normal 2.2-4.2 [facility] Comment on above: Performed By: #### L 500.2500, L100.0100 #### [facility] [address] [place], [address] Glucose [Mass/Vol] 84 mg/dL Normal 74-106 [facility] Comment on above: Performed By: #### L 500.2500, L100.0100 #### [facility] [address] [place], [address] Potassium [Moles/Vol] 4.2 mmol/L Normal 3.5-5.1 [facility] Comment on above: Performed By: #### L 500.2500, L100.0100 #### [facility] [address] [place], [address] Sodium [Moles/Vol] 137 mmol/L Normal 136-145 [facility] Comment on above: Performed By: #### L 500.2500, L100.0100 #### [facility] [address] [place], [address] T PROT 7.8 g/dL Normal 6.4-8.2 [facility] Comment on above: Performed By: #### L 500.2500, L100.0100 #### [facility] [address] [place], [address] Urea nitrogen [Mass/Vol] 12 mg/dL Normal 7-18 [facility] Comment on above: Performed By: #### L 500.2500, L100.0100 #### [facility] [address] [place], [place], [address] Thyroid Stim Hormone (TSH)on 09-11-2024 TSH 0.989 uIU/mL Normal 0.358-3.740 [facility] Comment on above: Performed By: #### L 500.2500, L100.0100 #### [facility] [address] [place], [place], [address] CNNURSEon 08-25-2024 CNNURSE Nurse Visit (UROLWS) -------- KATARZYNA VARGAS ([id number]) 1975 F U[place] Date Time Provider Department 08/25/24 2:40 PM [facility] During your visit today, we recorded [...] mg tabl (more content not included)... Normal [facility] Ines 08-25-2024 LOLAN Telephone (UROLWS) -------- KATARZYNA VARGAS ([id number]) 1975 F U[place] Date Time Provider Department 08/25/24 RUSH MAXWELL [...] to 15 mg daily [facility] [place] Kimberly, LPN 08/26/2024 10:12 AM Signed Called patient. No answer- left message that medication increased. SILVA Tian Kimberly, LPN 08/28/2024 11:27 AM Signed Called patient. Verified name and date of . Patient notified- verbalizes understanding. SILVA Tian Jessica, LPN 08/31/2024 1:14 PM Signed Nurse called in from [facility] where this patient is residing and they need the Ditropan Rx sent to their [place] pharmacy at [phone]. SILVA Cook Laurie, MA 08/31/2024 1:27 PM Signed Addended by: YESSY MARES on: 08/31/2024 01:27 PM Modules accepted: Orders Rush Maxwell PA-C 08/31/2024 4:27 PM Signed Addended by: [...] Assessed Reason for Visit: Patient Question [1477] Medication Problem [65] Orders [681] Primary Visit [...] sodium phosphate-s (more content not included)... [facility] -------- KATARZYNA VARGAS ([id number]) 1975 F UPA Date Time Provider Department 07/28/24 2:40 PM NURSE UROL [facility] UROLWS During your visit today, we [...] mouth three (more content not included)... Normal [facility] Bacteria identified Cx Nom ( U)Ordered By: Roxanne Hyatt on 07-02-2024 Interpretation and review of laboratory results Abnormal [facility] CNPNon 07-02-2024 CNPN Telephone (UROLWS) -------- KATARZYNA VARGAS ([id number]) 1975 F U[place] Date Time Provider Department 07/02/24 RUSH MAXWELL During your visit today, we recorded the following information about you: Yessy Mares MA 07/02/2024 8:16 AM Signed ----- Message from Rush Maxwell PA-C sent at 07/01/2024 5:40 PM EDT ----- No infection in the urine Rush Maxwell [facility] [place], Yessy Patino MA 07/02/2024 8:19 AM Signed [...] MENTN INTRAC (more content not included)... Normal [facility] URINE CULTUREOrdered By: Pedro Luis Hyatt on 07-02-2024 Bacteria identified Cx Nom (U) 50,000-<100,000 CFU/ml Mixed microbiota including 5 different colony types, and no one type predominating. No further workup. Abnormal [facility] Bacteria Ur Culton Bacteria identified Cx Nom (U) ORGANISM ID: 1 50,000-<100,000 CFU/ml Mixed microbiota including 5 different colony types, and no one type predominating. No further workup. Normal [facility] Comment on above: Performed By: #### 6 30-4 ####[facility] [id number] [address] CNOVon 06-30-2024 CNOV Office Visit (UROLWS ) -------- KATARZYNA VARGAS ([id number]) 1975 F U[place] Date Time Provider Department [...] as planned > 1 year Appt w/ SABINE Lozano, [place], PAJosefinaC for annual follow-up and refills. [...] [R31.9] Bladder spasm [N32.89] Order(s):SUPRAPUBIC TUBE CHANGE [9337650-30] Order #: [id number]: 99 STANDING URINE CULTURE [SQURCUL] Order #: [id number]. #:[id number] oxybutynin ER (DITROPAN XL) 10 mg 24 [...] SPRINKLE) 3 (more content not included)... Normal [facility] CNNURSEon 05-26-2024 CNNURSE Nurse Visit (UROLWS) -------- KATRAZYNA VARGAS ([id number]) 1975 F U[place] Date Time Provider Department 05/26/24 2:40 PM NURSE UROL [facility] UROLWS During your visit today, [...] by mo (more content not included)... Normal [facility] Absolute lymphocyte countOrd ered By: Bradly Kruger on 01-19-2024 Lymphocytes Auto (Unsp spec) [#/Vol] 2.12 10*3/uL 0.83-4.51 [facility] Automated lymphocyte count a s percentage of total leukocytesOrdered By: Bradly Kruger on 01-19-2024 Lymphocytes/100 WBC Auto (Unsp spec) 30.9 % 19-41 [facility] Basophil percentageOrdered B y: Bradly Kruger on 01-19-2024 Basophil percentage 50-100 SEEN /hpf 0-5 [facility] Basophils/100 WBC (Bld) 0.9 % 0-1 [facility] Chloride [Moles/Vol] 101 mmol/L 98-107 [facility] Eosinophils/100 WBC (Bld) 2.2 % 0-5 [facility] Glucose [Mass/Vol] 88 mg/dL 74-106 [facility] Hemoglobin (Bld) [Mass/Vol] 14.3 g/dL 12.0-15.0 [facility] Monocytes/100 WBC (Bld) 7.4 % 0-10 [facility] Neutrophils (Bld) [#/Vol] 4.0 10*3/uL 2.0-7.7 [facility] Neutrophils/100 WBC (Bld) 58.3 % 47-70 [facility] Potassium [Moles/Vol] 3.3 mmol/L 3.5-5.1 [facility] Sodium [Moles/Vol] 138 mmol/L 136-145 [facility] WBC (Bld) [#/Vol] 6.9 10*3/uL 4.4-11.0 [facility] Bilirubin Test strip Ql (U)O rdered By: Bradlykiera Kruger on 01-19-2024 Bilirubin Ql (U) Negative Negative [facility] Determination of erythrocyte mean corpuscular volume (MCV)Ordered By: Bradlykiera Kruger on 01-19-2024 MCV (RBC) [Entitic vol] 96.0 fL 81-99 [facility] Erythrocyte distribution wid th ratioOrdered By: [facility] Erythrocyte distribution width (RBC) [Ratio] 12.3 % 11.6-14.6 [facility] Erythrocyte distribution wid th standard deviationOrdered By: [facility] on 01-19-2024 Erythrocyte distribution width (RBC) [Entitic vol] 43.5 fL 35.1-43.9 [facility] Hematocrit Auto (Bld) [Volum e fraction]Ordered By: [facility] on 01-19-2024 Hematocrit (Bld) [Volume fraction] 42.8 % 37-47 [facility] Immature granulocytes/100 WB C Auto (Bld)Ordered By: [facility] on 01-19-2024 Immature granulocytes/100 WBC (Bld) 0.300 % 0.0-0.9 [facility] Comment on above: IG% - Immature Granu locytes (promyelocytes, myelocytes and metamyelocytes) > 1% indicates that a LEFT SHIFT is Present. Ketones Test strip Ql (U)Ord ered By: Bradly Kruger on 01-19-2024 Ketones Ql (U) Negative Negative [facility] - Chemistry and C hemistry - challengeOrdered By: Bradly Kruger on 01-19-2024 CO2 [Moles/Vol] 34.0 mmol/L 21.0-32.0 [facility] Urea nitrogen/Creatinine [Mass ratio] 17.9 mg/mg 10-20 [facility] - Hematology and Cell countsOrdered By: Bradly Kruger on 01-19-2024 MCH (RBC) [Entitic mass] 32.1 pg 27.0-32.0 [facility] MCHC (RBC) [Mass/Vol] 33.4 g/dL 32-36 [facility] Nucleated RBC/100 WBC (Bld) [Ratio] 0 % 0-5 [facility] Platelet mean volume (Bld) [Entitic vol] 10.4 fL 6.2-12.0 [facility] Platelets (Bld) [#/Vol] 225 10*3/uL 150-450 [facility] Mucus LM Ql (Urine sed)Order ed By: Bradly Kruger on 01-19-2024 Mucus Ql (Urine sed) 0 SEEN /hpf [facility] Nitrite Test strip Ql (U)Ord ered By: Bradly Kruger on 01-19-2024 Nitrite Ql (U) Negative Negative [facility] No Panel InformationOrdered By: Bradly Kruger on 01-19-2024 Urine RBC 0-5 SEEN /hpf 0-5 [facility] Estimated GFR (MDRD) Amer 86 mL/min >60 [facility] Comment on above: GFR Calc Estimated GFR (MDRD) Non-Af Amer 71 mL/min >60 [facility] Comment on above: Non- GFR Calc Protein Test strip Ql (U)Ord ered By: Bradly Kruger on 01-19-2024 Protein Ql (U) 100 mg/dl Negative [facility] RBC Auto (Bld) [#/Vol]Ordere d By: Bradly Kruger on 01-19-2024 RBC (Bld) [#/Vol] 4.46 10*6/uL 4.2-5.4 [facility] Serum or plasma calcium heena urement (mass/volume)Ordered By: Bradly Kruger on 01-19-2024 Calcium [Mass/Vol] 9.0 mg/dL 8.5-10.1 [facility] Serum or plasma creatinine m easurement (mass/volume)Ordered By: Bradly Kruger on 01-19-2024 Creatinine [Mass/Vol] 0.90 mg/dL 0.55-1.02 [facility] Comment on above: The validity of the calculated GFR & GFRAA in patients over 70 years has not been determined. Clinical correlation is essential. Serum or plasma urea nitroge n measurement (mass/volume)Ordered By: Bradly Kruger on 01-19-2024 Urea nitrogen [Mass/Vol] 16 mg/dL 7-18 [facility] Squamous epithelial cells de tection in urine sediment by light microscopyOrdered By: Bradly Kruger on 01-19-2024 Epithelial cells.squamous LM Ql (Urine sed) 0 SEEN /hpf 5-10 [facility] Thin prep Papanicolaou smear with manual screeningOrdered By: Bradly Kruger on 01-19-2024 Thin prep Papanicolaou smear with manual screening 3 5-15 [facility] Transitional cells detection in urine sediment by light microscopyOrdered By: Bradly Kruger on 01-19-2024 Transitional cells LM Ql (Urine sed) 0-5 SEEN /hpf 0-5 [facility] Urine blood detectionOrdered By: Bradly Kruger on 01-19-2024 RBC Ql (U) 150 /ul Negative [facility] Urine clarityOrdered By: Bradly Kruger on 01-19-2024 Clarity (U) Cloudy Clear [facility] Urine color determinationOrd ered By: Bradly Kruger on 01-19-2024 Color (U) Yellow Yellow [facility] Urine glucose detectionOrder ed By: Bradly Kruger on 01-19-2024 Glucose Ql (U) Normal mg/dl Normal [facility] Urine leukocyte esterase det ection by dipstickOrdered By: Bradly Kruger on 01-19-2024 Leukocyte esterase Test strip Ql (U) 500 /ul Negative [facility] Urine pHOrdered By: Bradly qureshi on 01-19-2024 pH (U) 7.0 [pH] 5.0 - 8.0 [facility] Urine sediment bacteria coun t by microscopy (number/high power field)Ordered By: Bradlykiera Kruger on 01-19-2024 Bacteria LM.HPF (Urine sed) [#/Area] 3 /[HPF] None Seen [facility] Urine specific gravity measu rementOrdered By: Bradlykiera Ramo on 01-19-2024 Specific gravity (U) [Rel density] 1.010 1.002-1.030 [facility] Urine urobilinogen measureme ntOrdered By: Bradlykiera Kruger on 01-19-2024 Urobilinogen Ql (U) Normal mg/dl Normal [facility] Basophil percentageOrdered B y: Ruddy Minaya on 11-22-2023 Bilirubin [Mass/Vol] 0.80 mg/dL 0.20-1.00 [facility] Comment on above: For patients on eltr ombopag therapy, use of Dimension [place] TBIL is not recommended. Protein [Mass/Vol] 7.5 g/dL 6.4-8.2 [facility] Direct bilirubinOrdered By: Ruddy Minaya on 11-22-2023 Bilirubin.direct [Mass/Vol] 0.13 mg/dL 0.00-0.30 [facility] - Chemistry and C hemistry - challengeOrdered By: Ruddy Minaya on 11-22-2023 ALP [Catalytic activity/Vol] 106 U/L 45-117 [facility] ALT [Catalytic activity/Vol] 19 U/L 13-56 [facility] Globulin (S) [Mass/Vol] 4.2 g/dL 2.2-4.2 [facility] No Panel InformationOrdered By: Ruddy Minaya on 11-22-2023 Hepatitis B Surface Antigen Non-Reactive Nonreactive [facility] Miscellaneous Test See comment [facility] Comment on above: TEST RESULTS LIMITSH BV Quant PCR Rfx to GenotypeHBV IU/mL HBV DNA not detected IU/mLlog10 HBV as IU/mLUnable to calculate result since non-numeric result obtained for component test.Test Information: The reportable range for this assay is 10 IU/mL to 1 billion IU/mL.HBV Genotype Not indicated TESTING PERFORMED AT [facility]. ORIGINAL REPORT ON FILE IN LAB CONTAINS ADDITIONAL TEST SITE INFORMATION. Tumor Marker Alpha Fetoprotein 2.4 ng/mL 0.0-6.4 [facility] Comment on above: [employer] El ectrochemiluminescence Immunoassay(ECLIA)Values obtained with different assay methods or kits cannotbe used interchangeably. Results cannot be interpreted asabsolute evidence of the presence or absence of malignantdisease.This test is not interpretable in females.Performed at: [address] [id number] Director: Ruddy No PhD, Phone: [phone] Serum hepatitis B virus surf orestes antibody IgG detectionOrdered By: Ruddy Minaya on 11-22-2023 HBV surface IgG Ql (S) Reactive [facility] Comment on above: Non Reactive: Incons istent with immunity less than <10 mIU/mL Reactive: Consistent with immunity greater than or equal to 10 mIU/mL Thin prep Papanicolaou smear with manual screeningOrdered By: Ruddy Minaya on 11-22-2023 Thin prep Papanicolaou smear with manual screening 3.3 g/dL 3.2-5.0 [facility] Thin prep Papanicolaou smear with manual screening 17 U/L 15-37 [facility] Absolute lymphocyte countOrd ered By: Darrel Veloz on 11-18-2023 Lymphocytes Auto (Unsp spec) [#/Vol] 1.97 10*3/uL 0.83-4.51 [facility] Automated lymphocyte count a s percentage of total leukocytesOrdered By: Darrel Veloz on 11-18-2023 Lymphocytes/100 WBC Auto (Unsp spec) 23.5 % 19-41 [facility] Basophil percentageOrdered B y: Darrel Veloz on 11-18-2023 Basophil percentage [facility] Comment on above: Test not performed Basophils/100 WBC (Bld) 0.7 % 0-1 [facility] Bilirubin [Mass/Vol] 0.70 mg/dL 0.20-1.00 [facility] Comment on above: For patients on eltr ombopag therapy, use of Dimension [place] TBIL is not recommended. Chloride [Moles/Vol] 104 mmol/L 98-107 [facility] Cholesterol [Mass/Vol] 157 mg/dL <200 [facility] Comment on above: <200 mg/dL Desirable 200-240 mg/dL Borderline >240 mg/dL High Risk Eosinophils/100 WBC (Bld) 2.0 % 0-5 [facility] Glucose [Mass/Vol] 90 mg/dL 74-106 [facility] Hemoglobin (Bld) [Mass/Vol] 13.8 g/dL 12.0-15.0 [facility] Monocytes/100 WBC (Bld) 7.0 % 0-10 [facility] Neutrophils (Bld) [#/Vol] 5.5 10*3/uL 2.0-7.7 [facility] Neutrophils/100 WBC (Bld) 66.2 % 47-70 [facility] Potassium [Moles/Vol] 3.1 mmol/L 3.5-5.1 [facility] Protein [Mass/Vol] 7.8 g/dL 6.4-8.2 [facility] Sodium [Moles/Vol] 138 mmol/L 136-145 [facility] Triglyceride [Mass/Vol] 147 mg/dL <199 [facility] Comment on above: The drugs N-Acetylcy steine and Metamizole may falsely depress this assay.Serum Triglycerides Reference Interval Normal <150 mg/dL Borderline high 150 - 199 mg/dL High 200 - 499 mg/dL Very High > or = 500 mg/dL WBC (Bld) [#/Vol] 8.4 10*3/uL 4.4-11.0 [facility] Determination of erythrocyte mean corpuscular volume (MCV)Ordered By: Darrel Veloz on 11-18-2023 MCV (RBC) [Entitic vol] 96.3 fL 81-99 [facility] Erythrocyte distribution wid th ratioOrdered By: Darrel Veloz on 11-18-2023 Erythrocyte distribution width (RBC) [Ratio] 12.9 % 11.6-14.6 [facility] Erythrocyte distribution wid th standard deviationOrdered By: Darrel Veloz on 11-18-2023 Erythrocyte distribution width (RBC) [Entitic vol] 45.6 fL 35.1-43.9 [facility] Hematocrit Auto (Bld) [Volum e fraction]Ordered By: Darrel Veloz on 11-18-2023 Hematocrit (Bld) [Volume fraction] 42.0 % 37-47 [facility] Immature granulocytes/100 WB C Auto (Bld)Ordered By: Darrel Veloz on 11-18-2023 Immature granulocytes/100 WBC (Bld) 0.600 % 0.0-0.9 [facility] Comment on above: IG% - Immature Granu locytes (promyelocytes, myelocytes and metamyelocytes) > 1% indicates that a LEFT SHIFT is Present. Laboratory - Chemistry and C hemistry - challengeOrdered By: Darrel Veloz on 11-18-2023 Albumin/Globulin [Mass ratio] 0.8 {ratio} 0.9-2.4 [facility] ALP [Catalytic activity/Vol] 122 U/L 45-117 [facility] ALT [Catalytic activity/Vol] 14 U/L 13-56 [facility] Cholesterol in HDL [Mass/Vol] 48 mg/dL >40 [facility] Comment on above: The drugs N-Acetylcy steine and Metamizole may falsely depress this assay. Reference Range HDL <40 mg/dL Low HDL Cholesterol HDL >or= 60 mg/dL High HDL Cholesterol Cholesterol in LDL [Mass/Vol] 80 mg/dL 0-130 [facility] CO2 [Moles/Vol] 28.0 mmol/L 21.0-32.0 [facility] Cobalamin (Vitamin B12) [Mass/Vol] 403 pg/mL 211-911 [facility] Globulin (S) [Mass/Vol] 4.4 g/dL 2.2-4.2 [facility] Urea nitrogen/Creatinine [Mass ratio] 8.4 mg/mg 10-20 [facility] Laboratory - CoagulationOrde red By: Darrel Veloz on 11-18-2023 INR Coag (Bld) [Relative time] 1.0 {INR} [facility] PT Coag (PPP) [Time] 13.2 s 11.7-14.9 [facility] Laboratory - Hematology and Cell countsOrdered By: Darrel Veloz on 11-18-2023 MCH (RBC) [Entitic mass] 31.7 pg 27.0-32.0 [facility] MCHC (RBC) [Mass/Vol] 32.9 g/dL 32-36 [facility] Nucleated RBC/100 WBC (Bld) [Ratio] 0 % 0-5 [facility] Platelet mean volume (Bld) [Entitic vol] 10.9 fL 6.2-12.0 [facility] Platelets (Bld) [#/Vol] 246 10*3/uL 150-450 [facility] No Panel InformationOrdered By: Darrel Veloz on 11-18-2023 Addendum Document Comment . [facility] Comment on above: The quantitative ran ge of this assay is 15 IU/mL to 100million IU/mL. Estimated GFR (MDRD) Amer 81 mL/min >60 [facility] Comment on above: GFR Calc Estimated GFR (MDRD) Non-Af Amer 67 mL/min >60 [facility] Comment on above: Non- GFR Calc Tumor Marker Alpha Fetoprotein 2.3 ng/mL 0.0-6.4 [facility] Comment on above: [employer] El ectrochemiluminescence Immunoassay(ECLIA)Values obtained with different assay methods or kits cannotbe used interchangeably. Results cannot be interpreted asabsolute evidence of the presence or absence of malignantdisease.This test is not interpretable in females.Performed at: [address] [id number] Director: Twin Moore MD, Phone: [phone] at: [address] [id number] Director: Ruddy No PhD, Phone: [phone] Vitamin D 25-Hydroxy 31.2 ng/mL [facility] Comment on above: Vitamin D 25(OH) Sta tus Range Deficiency <20 ng/mL (50nmol/L) Insufficiency 20 - 30 ng/mL (50 - 75 nmol/L) Sufficiency 30 - 100 ng/mL (75 - 250 nmol/L) Toxicity >100 ng/mL (>250 nmol/L) VLDL Cholesterol 29 mg/dL 5-40 [facility] RBC Auto (Bld) [#/Vol]Ordere d By: Darrel Veloz on 11-18-2023 RBC (Bld) [#/Vol] 4.36 10*6/uL 4.2-5.4 [facility] Serum or plasma calcium heena urement (mass/volume)Ordered By: Darrel Veloz on 11-18-2023 Calcium [Mass/Vol] 9.0 mg/dL 8.5-10.1 [facility] Serum or plasma creatinine m easurement (mass/volume)Ordered By: Darrel Veloz on 11-18-2023 Creatinine [Mass/Vol] 0.95 mg/dL 0.55-1.02 [facility] Comment on above: The validity of the calculated GFR & GFRAA in patients over 70 years has not been determined. Clinical correlation is essential. Serum or plasma hepatitis C virus RNA measurement by probe and target amplification mOrdered By: Darrel Veloz on 11-18-2023 HCV RNA CHACE+probe Qn Not detected . [facility] Serum or plasma thyroid stim ulating hormone (TSH) measurement (units/volume)Ordered By: Darrel Veloz on 11-18-2023 TSH Qn 1.70 uIU/mL 0.358-3.74 [facility] Serum or plasma urea nitroge n measurement (mass/volume)Ordered By: Darrel Veloz on 11-18-2023 Urea nitrogen [Mass/Vol] 8 mg/dL 7-18 [facility] Thin prep Papanicolaou smear with manual screeningOrdered By: Darrel Veloz on 11-18-2023 Thin prep Papanicolaou smear with manual screening 3.4 g/dL 3.2-5.0 [facility] Thin prep Papanicolaou smear with manual screening 16 U/L 15-37 [facility] Thin prep Papanicolaou smear with manual screening 6 5-15 [facility] Thin prep Papanicolaou smear with manual screening 1.16 ng/dL 0.76-1.46 [facility] 36on 09-25-2023 36 Left voicemail to se e if patient still interested in program. Normal [facility] 36 Left voicemail to se e if patient still interested in surgical program. Normal [facility] 36 EGD Orders sent back to [facility] after several unsuccessful attempts were made to reach patient to schedule EGD surgery. Routed to Reyna Naylor. Normal [facility] 36on 09-04-2023 36 Called patient left message about missed appointment. Requested a call back to reschedule. Normal [facility] Basophil percentageOrdered B y: Dawit Abreu on 08-12-2023 Chloride [Moles/Vol] 107 mmol/L 98-107 [facility] Glucose [Mass/Vol] 102 mg/dL 74-106 [facility] Comment on above: Fasting Glucose resu lt from 100 to 125 mg/dL suggests IMPAIRED HOMEOSTASIS per A.D.A. criteria. Potassium [Moles/Vol] 3.7 mmol/L 3.5-5.1 [facility] Sodium [Moles/Vol] 145 mmol/L 136-145 [facility] WBC (Bld) [#/Vol] 5.9 10*3/uL 4.4-11.0 [facility] Blood erythrocytes count (nu mber/volume)Ordered By: Dawit Abreu on 08-12-2023 RBC (Bld) [#/Vol] 4.20 10*6/uL 4.2-5.4 [facility] Blood hemoglobin measurement (mass/volume)Ordered By: Dawit Abreu on 08-12-2023 Hemoglobin (Bld) [Mass/Vol] 13.7 g/dL 12.0-15.0 [facility] Blood platelet mean volumeOr dered By: Dawit Abreu on 08-12-2023 Platelet mean volume (Bld) [Entitic vol] 11.0 fL 6.2-12.0 [facility] Determination of erythrocyte mean corpuscular volume (MCV)Ordered By: Dawit Abreu on 08-12-2023 MCV (RBC) [Entitic vol] 101.2 fL 81-99 [facility] Hematocrit Auto (Bld) [Volum e fraction]Ordered By: Dawit Abreu on 08-12-2023 Hematocrit (Bld) [Volume fraction] 42.5 % 37-47 [facility] Laboratory - Chemistry and C hemistry - challengeOrdered By: Dawit Abreu on 08-12-2023 CO2 [Moles/Vol] 33.0 mmol/L 21.0-32.0 [facility] Urea nitrogen/Creatinine [Mass ratio] 21.7 mg/mg 10-20 [facility] Laboratory - Hematology and Cell countsOrdered By: Dawit Abreu on 08-12-2023 Erythrocyte distribution width (RBC) [Entitic vol] 48.5 fL 35.1-43.9 [facility] Erythrocyte distribution width (RBC) [Ratio] 13.1 % 11.6-14.6 [facility] MCH (RBC) [Entitic mass] 32.6 pg 27.0-32.0 [facility] MCHC Auto (RBC) [Mass/Vol]Or dered By: Dawit Abreu on 08-12-2023 MCHC (RBC) [Mass/Vol] 32.2 g/dL 32-36 [facility] No Panel InformationOrdered By: Dawit Abreu on 08-12-2023 Estimated GFR (MDRD) Amer 101 mL/min >60 [facility] Comment on above: GFR Calc Estimated GFR (MDRD) Non-Af Amer 84 mL/min >60 [facility] Comment on above: Non- GFR Calc Platelets bldOrdered By: Yesica Abreu on 08-12-2023 Platelets (Bld) [#/Vol] 172 10*3/uL 150-450 [facility] Serum or plasma calcium heena urement (mass/volume)Ordered By: Dawit Abreu on 08-12-2023 Calcium [Mass/Vol] 8.6 mg/dL 8.5-10.1 [facility] Serum or plasma creatinine m easurement (mass/volume)Ordered By: Dawit Abreu on 08-12-2023 Creatinine [Mass/Vol] 0.78 mg/dL 0.55-1.02 [facility] Comment on above: The validity of the calculated GFR & GFRAA in patients over 70 years has not been determined. Clinical correlation is essential. Serum or plasma urea nitroge n measurement (mass/volume)Ordered By: Dawit Abreu on 08-12-2023 Urea nitrogen [Mass/Vol] 17 mg/dL 7-18 [facility] Thin prep Papanicolaou smear with manual screeningOrdered By: Dawit Abreu on 08-12-2023 Thin prep Papanicolaou smear with manual screening 15 [facility] 36on 07-24-2023 36 Pre op check list scanned to media, orders mailed. Normal [facility] 36on 07-23-2023 36 Orders added. EGD documentation encounter created. Checklist completed and provided with orders with clinical team for processing. BARIATRIC AND METABOLIC SURGERY [facility] PATIENT SUMMARY Katarzyna Alcantar 48 [...] will proceed with sleeve gastrectomy [facility] Progress Noteon 07-23-2023 Progress Note LVM #3 sending back to [facility] Progress Note LVM asking pt to dede l back to schedule EGD [facility] Progress Note EGD W BIOPSY schedul ed Date: 08/13 Time: 11:15 Place: [address] [place] [address] Patient notified via phone and MAIL [facility] Progress Note ENDOSCOPY ORDERS To be scheduled with: Dr. Alcantar Patient is: Pre-op/Pre-Bariatric Surgery CPT code: EGD with biopsy- CPT 64009 Diagnosis: GERD- K21.9 If pre-op, Diet & Exercise Requirements are, and started/scheduled on 09/04/23: 6 months Home O2: No Known Difficult Intubation: No [facility] Progress Note LVM #2 [facility] Progress Note Jo [facility] 260 Clinical Contact Lens Blocker No show for EGD - please call to r/s - thanks! [facility] Progress Note 09/17/23 Printed. NF Normal [facility] Progress Note printed [facility] Office Visiton 07-18-2023 Follow-up visit [id number] Lm Vargas devaughn Osorio 1975 F Date Provider Department Center 07/18/2023 [id number] ALCANTAR [facility] SURG None Family History Problem Relation Age of Onset Hypertension Mother Substance Abuse Mother Comments: Unintentional overdose Obesity Mother Alcohol abuse Father Stroke Maternal Grandmother Hypertension Maternal Grandmother Family Status - Relation Status Age at Mother Father Alive Other Notes: Committed Suicide Maternal Grandmother Alive Level of Service:79292 [place] OFFICE/OUTPATIENT NEW MODERATE MDM 45-59 MINUTES Reason for Visit and Comments: Surgical Consult [[id number]] - NEW [facility] Progress Noteon 07-18-2023 Progress Note [facility] WEIGHT LOSS MANAGEMENT PROGRAM Rooming Note [...] home O2 Completed by: Danielle Chambers LPN [facility] Progress Note [facility] SURGICAL PROGRAM INITIAL EVALUATION [...] morbid obesity, including: Office notes reviewed: Morenita Rocha 06/18/23 PMHx: Past Medical History: Diagnosis Date [...] Date SECTION, LOW TRANSVERSE 2001 [facility] HYSTERECTOMY [facility] KNEE ARTHROPLASTY 2005 [facility] LAP,CHOLECYSTECTOMY (HISTORICAL) 2003 SPINE SURGERY 01/19/2021 Social [...] insurance pre-a (more content not included)... Normal [facility] Basophil percentageOrdered B y: Dawit Abreu on 07-15-2023 Chloride [Moles/Vol] 105 mmol/L 98-107 [facility] Glucose [Mass/Vol] 123 mg/dL 74-106 [facility] Comment on above: Fasting Glucose resu lt from 100 to 125 mg/dL suggests IMPAIRED HOMEOSTASIS per A.D.A. criteria. Potassium [Moles/Vol] 3.6 mmol/L 3.5-5.1 [facility] Sodium [Moles/Vol] 141 mmol/L 136-145 [facility] WBC (Bld) [#/Vol] 7.0 10*3/uL 4.4-11.0 [facility] Blood erythrocytes count (nu mber/volume)Ordered By: Dawit Abreu on 07-15-2023 RBC (Bld) [#/Vol] 4.35 10*6/uL 4.2-5.4 [facility] Blood hemoglobin measurement (mass/volume)Ordered By: Dawit Abreu on 07-15-2023 Hemoglobin (Bld) [Mass/Vol] 14.1 g/dL 12.0-15.0 [facility] Blood platelet mean volumeOr dered By: Dawit Abreu on 07-15-2023 Platelet mean volume (Bld) [Entitic vol] 10.7 fL 6.2-12.0 [facility] Determination of erythrocyte mean corpuscular volume (MCV)Ordered By: Dawit Abreu on 07-15-2023 MCV (RBC) [Entitic vol] 101.4 fL 81-99 [facility] Hematocrit Auto (Bld) [Volum e fraction]Ordered By: Dawit Abreu on 07-15-2023 Hematocrit (Bld) [Volume fraction] 44.1 % 37-47 [facility] Laboratory - Chemistry and C hemistry - challengeOrdered By: Dawit Abreu on 07-15-2023 CO2 [Moles/Vol] 33.0 mmol/L 21.0-32.0 [facility] Urea nitrogen/Creatinine [Mass ratio] 22.8 mg/mg 10-20 [facility] Laboratory - Hematology and Cell countsOrdered By: Dawit Abreu on 07-15-2023 Erythrocyte distribution width (RBC) [Entitic vol] 49.1 fL 35.1-43.9 [facility] Erythrocyte distribution width (RBC) [Ratio] 13.2 % 11.6-14.6 [facility] MCH (RBC) [Entitic mass] 32.4 pg 27.0-32.0 [facility] MCHC Auto (RBC) [Mass/Vol]Or dered By: Dawit Abreu on 07-15-2023 MCHC (RBC) [Mass/Vol] 32.0 g/dL 32-36 [facility] No Panel InformationOrdered By: Dawit Abreu on 07-15-2023 Estimated GFR (MDRD) Amer 100 mL/min >60 [facility] Comment on above: GFR Calc Estimated GFR (MDRD) Non-Af Amer 83 mL/min >60 [facility] Comment on above: Non- GFR Calc Platelets bldOrdered By: Yesica Abreu on 07-15-2023 Platelets (Bld) [#/Vol] 189 10*3/uL 150-450 [facility] Serum or plasma calcium heena urement (mass/volume)Ordered By: Dawit Abreu on 07-15-2023 Calcium [Mass/Vol] 8.7 mg/dL 8.5-10.1 [facility] Serum or plasma creatinine m easurement (mass/volume)Ordered By: Dawit Abreu on 07-15-2023 Creatinine [Mass/Vol] 0.79 mg/dL 0.55-1.02 [facility] Comment on above: The validity of the calculated GFR & GFRAA in patients over 70 years has not been determined. Clinical correlation is essential. Serum or plasma urea nitroge n measurement (mass/volume)Ordered By: Dawit Abreu on 07-15-2023 Urea nitrogen [Mass/Vol] 18 mg/dL 7-18 [facility] Thin prep Papanicolaou smear with manual screeningOrdered By: Dawit Abreu on 07-15-2023 Thin prep Papanicolaou smear with manual screening 3 5-15 [facility] Basophil percentageOrdered B y: Dawit Abreu on 06-17-2023 Chloride [Moles/Vol] 104 mmol/L 98-107 [facility] Glucose [Mass/Vol] 85 mg/dL 74-106 [facility] Potassium [Moles/Vol] 3.4 mmol/L 3.5-5.1 [facility] Sodium [Moles/Vol] 140 mmol/L 136-145 [facility] WBC (Bld) [#/Vol] 6.1 10*3/uL 4.4-11.0 [facility] Blood erythrocytes count (nu mber/volume)Ordered By: Dawit Abreu on 06-17-2023 RBC (Bld) [#/Vol] 4.24 10*6/uL 4.2-5.4 [facility] Blood hemoglobin measurement (mass/volume)Ordered By: Dawit Abreu on 06-17-2023 Hemoglobin (Bld) [Mass/Vol] 13.8 g/dL 12.0-15.0 [facility] Blood platelet mean volumeOr dered By: Dawit Abreu on 06-17-2023 Platelet mean volume (Bld) [Entitic vol] 10.6 fL 6.2-12.0 [facility] Determination of erythrocyte mean corpuscular volume (MCV)Ordered By: Dawit Abreu on 06-17-2023 MCV (RBC) [Entitic vol] 99.3 fL 81-99 [facility] Hematocrit Auto (Bld) [Volum e fraction]Ordered By: Dawit Abreu on 06-17-2023 Hematocrit (Bld) [Volume fraction] 42.1 % 37-47 [facility] Laboratory - Chemistry and C hemistry - challengeOrdered By: Dawit Abreu on 06-17-2023 CO2 [Moles/Vol] 22.0 mmol/L 21.0-32.0 [facility] Urea nitrogen/Creatinine [Mass ratio] 21.8 mg/mg 10-20 [facility] Laboratory - Hematology and Cell countsOrdered By: Dawit Abreu on 06-17-2023 Erythrocyte distribution width (RBC) [Entitic vol] 47.4 fL 35.1-43.9 [facility] Erythrocyte distribution width (RBC) [Ratio] 13.0 % 11.6-14.6 [facility] MCH (RBC) [Entitic mass] 32.5 pg 27.0-32.0 [facility] MCHC Auto (RBC) [Mass/Vol]Or dered By: Dawit Abreu on 06-17-2023 MCHC (RBC) [Mass/Vol] 32.8 g/dL 32-36 [facility] No Panel InformationOrdered By: Dawit Abreu on 06-17-2023 Estimated GFR (MDRD) Amer 118 mL/min >60 [facility] Comment on above: GFR Calc Estimated GFR (MDRD) Non-Af Amer 97 mL/min >60 [facility] Comment on above: Non- GFR Calc Platelets bldOrdered By: Yesica Abreu on 06-17-2023 Platelets (Bld) [#/Vol] 160 10*3/uL 150-450 [facility] Serum or plasma calcium heena urement (mass/volume)Ordered By: Dawit Abreu on 06-17-2023 Calcium [Mass/Vol] 7.4 mg/dL 8.5-10.1 [facility] Serum or plasma creatinine m easurement (mass/volume)Ordered By: Dawit Abreu on 06-17-2023 Creatinine [Mass/Vol] 0.69 mg/dL 0.55-1.02 [facility] Comment on above: The validity of the calculated GFR & GFRAA in patients over 70 years has not been determined. Clinical correlation is essential. Serum or plasma urea nitroge n measurement (mass/volume)Ordered By: Dawit Abreu on 06-17-2023 Urea nitrogen [Mass/Vol] 15 mg/dL 7-18 [facility] Thin prep Papanicolaou smear with manual screeningOrdered By: Dawit Abreu on 06-17-2023 Thin prep Papanicolaou smear with manual screening 14 5-15 [facility] Basophil percentageOrdered B y: Dawit Abreu on 06-04-2023 Bilirubin [Mass/Vol] 0.30 mg/dL 0.20-1.00 [facility] Comment on above: For patients on eltr ombopag therapy, use of Dimension [place] TBIL is not recommended. Protein [Mass/Vol] 6.9 g/dL 6.4-8.2 [facility] Direct bilirubinOrdered By: Dawit Abreu on 06-04-2023 Bilirubin.direct [Mass/Vol] 0.08 mg/dL 0.00-0.30 [facility] Laboratory - Chemistry and C hemistry - challengeOrdered By: Dawit Abreu on 06-04-2023 ALP [Catalytic activity/Vol] 108 U/L 45-117 [facility] ALT [Catalytic activity/Vol] 12 U/L 13-56 [facility] Globulin (S) [Mass/Vol] 3.9 g/dL 2.2-4.2 [facility] Serum or plasma albumin heena urement (mass/volume)Ordered By: Dawit Abreu on 06-04-2023 Albumin [Mass/Vol] 3.0 g/dL 3.2-5.0 [facility] Thin prep Papanicolaou smear with manual screeningOrdered By: Dawit Abreu on 06-04-2023 Thin prep Papanicolaou smear with manual screening 8 U/L 15-37 [facility] Whole blood hemoglobin A1c/t otal hemoglobin ratio (mass fraction)Ordered By: Dawit Abreu on 06-04-2023 HbA1c (Bld) [Mass fraction] 4.9 % 3.8-5.6 [facility] Comment on above: Normal < 5.7 % Predi abetic 5.7 - 6.4 % Diabetic >or= 6.5 % Please note range changes. Basophil percentageOrdered B y: Dawit Abreu on 05-20-2023 Chloride [Moles/Vol] 108 mmol/L 98-107 [facility] Glucose [Mass/Vol] 95 mg/dL 74-106 [facility] Potassium [Moles/Vol] 5.0 mmol/L 3.5-5.1 [facility] Comment on above: Slight Hemolysis, Re sult may be falsely increased. Sodium [Moles/Vol] 141 mmol/L 136-145 [facility] WBC (Bld) [#/Vol] 6.4 10*3/uL 4.4-11.0 [facility] Blood erythrocytes count (nu mber/volume)Ordered By: Dawit Abreu on 05-20-2023 RBC (Bld) [#/Vol] 4.25 10*6/uL 4.2-5.4 [facility] Blood hemoglobin measurement (mass/volume)Ordered By: Dawit Abreu on 05-20-2023 Hemoglobin (Bld) [Mass/Vol] 13.9 g/dL 12.0-15.0 [facility] Blood platelet mean volumeOr dered By: Dawit Abreu on 05-20-2023 Platelet mean volume (Bld) [Entitic vol] 11.0 fL 6.2-12.0 [facility] Determination of erythrocyte mean corpuscular volume (MCV)Ordered By: Dawit Abreu on 05-20-2023 MCV (RBC) [Entitic vol] 103.5 fL 81-99 [facility] Hematocrit Auto (Bld) [Volum e fraction]Ordered By: Dawit Abreu on 05-20-2023 Hematocrit (Bld) [Volume fraction] 44.0 % 37-47 [facility] Laboratory - Chemistry and C hemistry - challengeOrdered By: Dawit Abreu on 05-20-2023 CO2 [Moles/Vol] 33.0 mmol/L 21.0-32.0 [facility] Urea nitrogen/Creatinine [Mass ratio] 28.2 mg/mg 10-20 [facility] Laboratory - Hematology and Cell countsOrdered By: Dawit Abreu on 05-20-2023 Erythrocyte distribution width (RBC) [Entitic vol] 49.1 fL 35.1-43.9 [facility] Erythrocyte distribution width (RBC) [Ratio] 12.9 % 11.6-14.6 [facility] MCH (RBC) [Entitic mass] 32.7 pg 27.0-32.0 [facility] MCHC Auto (RBC) [Mass/Vol]Or dered By: Dawit Abreu on 05-20-2023 MCHC (RBC) [Mass/Vol] 31.6 g/dL 32-36 [facility] No Panel InformationOrdered By: Dawit Abreu on 05-20-2023 Estimated GFR (MDRD) Amer 102 mL/min >60 [facility] Comment on above: GFR Calc Estimated GFR (MDRD) Non-Af Amer 84 mL/min >60 [facility] Comment on above: Non- GFR Calc Platelets bldOrdered By: Yesica Abreu on 05-20-2023 Platelets (Bld) [#/Vol] 170 10*3/uL 150-450 [facility] Serum or plasma calcium heena urement (mass/volume)Ordered By: Dawit Abreu on 05-20-2023 Calcium [Mass/Vol] 9.1 mg/dL 8.5-10.1 [facility] Serum or plasma creatinine m easurement (mass/volume)Ordered By: Dawit Abreu on 05-20-2023 Creatinine [Mass/Vol] 0.78 mg/dL 0.55-1.02 [facility] Comment on above: The validity of the calculated GFR & GFRAA in patients over 70 years has not been determined. Clinical correlation is essential. Serum or plasma urea nitroge n measurement (mass/volume)Ordered By: Dawit Abreu on 05-20-2023 Urea nitrogen [Mass/Vol] 22 mg/dL 7-18 [facility] Thin prep Papanicolaou smear with manual screeningOrdered By: Dawit Abreu on 05-20-2023 Thin prep Papanicolaou smear with manual screening 0 5-15 [facility] Culture, urineOrdered By: Jona Abreu on 05-01-2023 Bacteria identified Cx Nom (U) Morganella morganii sp morgani [facility] Bacteria identified Cx Nom ( Wound)Ordered By: Dawit Abreu on 04-30-2023 Wound Culture Pseudomonas aeruginosa [facility] Wound Culture Achromobacter xylosoxidans [facility] Wound Culture Corynebacterium striatum [facility] Wound Culture Enterococcus faecalis [facility] Gram stain for investigation of transfusion reactionOrdered By: Dawit Abreu on 04-30-2023 Microscopic observation Gram stain Nom (Unsp spec) [facility] Basophil percentageOrdered B y: Iron Kimball on 04-22-2023 Chloride [Moles/Vol] 108 mmol/L 98-107 [facility] Glucose [Mass/Vol] 96 mg/dL 74-106 [facility] Potassium [Moles/Vol] 3.4 mmol/L 3.5-5.1 [facility] Sodium [Moles/Vol] 140 mmol/L 136-145 [facility] WBC (Bld) [#/Vol] 6.4 10*3/uL 4.4-11.0 [facility] Blood erythrocytes count (nu mber/volume)Ordered By: Iron Kimball on 04-22-2023 RBC (Bld) [#/Vol] 4.27 10*6/uL 4.2-5.4 [facility] Blood hemoglobin measurement (mass/volume)Ordered By: Iron Kimball on 04-22-2023 Hemoglobin (Bld) [Mass/Vol] 14.0 g/dL 12.0-15.0 [facility] Blood platelet mean volumeOr dered By: Iron Kimball on 04-22-2023 Platelet mean volume (Bld) [Entitic vol] 11.0 fL 6.2-12.0 [facility] Determination of erythrocyte mean corpuscular volume (MCV)Ordered By: Iron Kimball on 04-22-2023 MCV (RBC) [Entitic vol] 100.5 fL 81-99 [facility] Hematocrit Auto (Bld) [Volum e fraction]Ordered By: Iron Kimball on 04-22-2023 Hematocrit (Bld) [Volume fraction] 42.9 % 37-47 [facility] Laboratory - Chemistry and C hemistry - challengeOrdered By: Iron Kimball on 04-22-2023 CO2 [Moles/Vol] 30.0 mmol/L 21.0-32.0 [facility] Urea nitrogen/Creatinine [Mass ratio] 21.9 mg/mg 10-20 [facility] Laboratory - Hematology and Cell countsOrdered By: Iron Kimball on 04-22-2023 Erythrocyte distribution width (RBC) [Entitic vol] 45.8 fL 35.1-43.9 [facility] Erythrocyte distribution width (RBC) [Ratio] 12.4 % 11.6-14.6 [facility] MCH (RBC) [Entitic mass] 32.8 pg 27.0-32.0 [facility] MCHC Auto (RBC) [Mass/Vol]Or dered By: Iron Kimball on 04-22-2023 MCHC (RBC) [Mass/Vol] 32.6 g/dL 32-36 [facility] No Panel InformationOrdered By: Iron Kimball on 04-22-2023 Estimated GFR (MDRD) Amer 118 mL/min >60 [facility] Comment on above: GFR Calc Estimated GFR (MDRD) Non-Af Amer 98 mL/min >60 [facility] Comment on above: Non- GFR Calc Platelets bldOrdered By: Serafin Kimball on 04-22-2023 Platelets (Bld) [#/Vol] 173 10*3/uL 150-450 [facility] Serum or plasma calcium heena urement (mass/volume)Ordered By: Iron Kimball on 04-22-2023 Calcium [Mass/Vol] 8.9 mg/dL 8.5-10.1 [facility] Serum or plasma creatinine m easurement (mass/volume)Ordered By: Iron Kimball on 04-22-2023 Creatinine [Mass/Vol] 0.68 mg/dL 0.55-1.02 [facility] Comment on above: The validity of the calculated GFR & GFRAA in patients over 70 years has not been determined. Clinical correlation is essential. Serum or plasma urea nitroge n measurement (mass/volume)Ordered By: Iron Kimball on 04-22-2023 Urea nitrogen [Mass/Vol] 15 mg/dL 7-18 [facility] Thin prep Papanicolaou smear with manual screeningOrdered By: Iron Kimblal on 04-22-2023 Thin prep Papanicolaou smear with manual screening 2 5-15 [facility] Basophil percentageOrdered B y: Dawit Abreu on 03-25-2023 Chloride [Moles/Vol] 108 mmol/L 98-107 [facility] Glucose [Mass/Vol] 88 mg/dL 74-106 [facility] Potassium [Moles/Vol] 3.6 mmol/L 3.5-5.1 [facility] Sodium [Moles/Vol] 141 mmol/L 136-145 [facility] WBC (Bld) [#/Vol] 5.4 10*3/uL 4.4-11.0 [facility] Blood erythrocytes count (nu mber/volume)Ordered By: Dawit Abreu on 03-25-2023 RBC (Bld) [#/Vol] 4.22 10*6/uL 4.2-5.4 [facility] Blood hemoglobin measurement (mass/volume)Ordered By: Dawit Abreu on 03-25-2023 Hemoglobin (Bld) [Mass/Vol] 13.9 g/dL 12.0-15.0 [facility] Blood platelet mean volumeOr dered By: Dawit Abreu on 03-25-2023 Platelet mean volume (Bld) [Entitic vol] 10.8 fL 6.2-12.0 [facility] Determination of erythrocyte mean corpuscular volume (MCV)Ordered By: Dawit Abreu on 03-25-2023 MCV (RBC) [Entitic vol] 100.0 fL 81-99 [facility] Hematocrit Auto (Bld) [Volum e fraction]Ordered By: Dawit Abreu on 03-25-2023 Hematocrit (Bld) [Volume fraction] 42.2 % 37-47 [facility] Laboratory - Chemistry and C hemistry - challengeOrdered By: Dawit Abreu on 03-25-2023 CO2 [Moles/Vol] 32.0 mmol/L 21.0-32.0 [facility] Urea nitrogen/Creatinine [Mass ratio] 24.2 mg/mg 10-20 [facility] Laboratory - Hematology and Cell countsOrdered By: Dawit Abreu on 03-25-2023 Erythrocyte distribution width (RBC) [Entitic vol] 45.6 fL 35.1-43.9 [facility] Erythrocyte distribution width (RBC) [Ratio] 12.4 % 11.6-14.6 [facility] MCH (RBC) [Entitic mass] 32.9 pg 27.0-32.0 [facility] MCHC Auto (RBC) [Mass/Vol]Or dered By: Dawit Abreu on 03-25-2023 MCHC (RBC) [Mass/Vol] 32.9 g/dL 32-36 [facility] No Panel InformationOrdered By: Dawit Abreu on 03-25-2023 Estimated GFR (MDRD) Amer 123 mL/min >60 [facility] Comment on above: GFR Calc Estimated GFR (MDRD) Non-Af Amer 102 mL/min >60 [facility] Comment on above: Non- GFR Calc Platelets bldOrdered By: Yesica Abreu on 03-25-2023 Platelets (Bld) [#/Vol] 195 10*3/uL 150-450 [facility] Serum or plasma calcium heena urement (mass/volume)Ordered By: Dawit Abreu on 03-25-2023 Calcium [Mass/Vol] 8.3 mg/dL 8.5-10.1 [facility] Serum or plasma creatinine m easurement (mass/volume)Ordered By: Dawit Abreu on 03-25-2023 Creatinine [Mass/Vol] 0.66 mg/dL 0.55-1.02 [facility] Comment on above: The validity of the calculated GFR & GFRAA in patients over 70 years has not been determined. Clinical correlation is essential. Serum or plasma urea nitroge n measurement (mass/volume)Ordered By: Dawit Abreu on 03-25-2023 Urea nitrogen [Mass/Vol] 16 mg/dL 7-18 [facility] Thin prep Papanicolaou smear with manual screeningOrdered By: Dawit Abreu on 03-25-2023 Thin prep Papanicolaou smear with manual screening 1 5-15 [facility] Bacteria identified Cx Nom ( Wound)Ordered By: Dawit Abreu on 03-17-2023 Wound Culture Pseudomonas aeruginosa [facility] Wound Culture Staphylococcus species [facility] Wound Culture Enterococcus faecalis [facility] Fungus cultureOrdered By: Jona Abreu on 03-17-2023 Fungus identified Cx Nom (Unsp spec) [facility] Gram stain for investigation of transfusion reactionOrdered By: Dawit Abreu on 03-17-2023 Microscopic observation Gram stain Nom (Unsp spec) [facility] Culture, urineOrdered By: Jona Abreu on 03-06-2023 Bacteria identified Cx Nom (U) Providencia rettgeri [facility] Bacteria identified Cx Nom (U) Pseudomonas aeruginosa [facility] Basophil percentageOrdered B y: Dawit Abreu on 03-03-2023 Basophil percentage 5-10 SEEN /hpf 0-5 [facility] Bilirubin Test strip Ql (U)O rdered By: Dawit Abreu on 03-03-2023 Bilirubin Ql (U) Negative Negative [facility] Culture, urineOrdered By: Jona Abreu on 03-03-2023 Bacteria identified Cx Nom (U) Providencia rettgeri [facility] Bacteria identified Cx Nom (U) Pseudomonas aeruginosa [facility] Ketones Test strip Ql (U)Ord ered By: Dawit Abreu on 03-03-2023 Ketones Ql (U) Negative Negative [facility] Mucus LM Ql (Urine sed)Order ed By: Dawit Abreu on 03-03-2023 Mucus Ql (Urine sed) 0 SEEN /hpf [facility] Nitrite Test strip Ql (U)Ord ered By: Dawit Abreu on 03-03-2023 Nitrite Ql (U) Positive Negative [facility] Protein Test strip Ql (U)Ord ered By: Dawit Abreu on 03-03-2023 Protein Ql (U) 15 mg/dl Negative [facility] Squamous epithelial cells de tection in urine sediment by light microscopyOrdered By: Dawit Abreu on 03-03-2023 Epithelial cells.squamous LM Ql (Urine sed) 0 SEEN /hpf 5-10 [facility] Urine blood detectionOrdered By: Dawit Abreu on 03-03-2023 RBC Ql (U) Negative Negative [facility] RBC Ql (U) 0 SEEN /hpf 0-5 [facility] Urine clarityOrdered By: Yesica Abreu on 03-03-2023 Clarity (U) Clear Clear [facility] Urine color determinationOrd ered By: Dawit Abreu on 03-03-2023 Color (U) Yellow Yellow [facility] Urine glucose detectionOrder ed By: Dawit Abreu on 03-03-2023 Glucose Ql (U) Normal mg/dl Normal [facility] Urine leukocyte esterase det ection by dipstickOrdered By: Dawit Abreu on 03-03-2023 Leukocyte esterase Test strip Ql (U) 500 /ul Negative [facility] Urine pHOrdered By: Dawit wen on 03-03-2023 pH (U) 8.0 [pH] 5.0 - 8.0 [facility] Urine sediment bacteria coun t by microscopy (number/high power field)Ordered By: Dawit Abreu on 03-03-2023 Bacteria LM.HPF (Urine sed) [#/Area] 1 /[HPF] None Seen [facility] Urine specific gravity measu rementOrdered By: Dawit Abreu on 03-03-2023 Specific gravity (U) [Rel density] 1.015 1.002-1.030 [facility] Urobilinogen Auto test strip Ql (U)Ordered By: Dawit Abreu on 03-03-2023 Urobilinogen Ql (U) Normal mg/dl Normal [facility] Basophil percentageOrdered B y: Dawit Abreu on 02-25-2023 Chloride [Moles/Vol] 109 mmol/L 98-107 [facility] Glucose [Mass/Vol] 85 mg/dL 74-106 [facility] Potassium [Moles/Vol] 3.5 mmol/L 3.5-5.1 [facility] Sodium [Moles/Vol] 143 mmol/L 136-145 [facility] WBC (Bld) [#/Vol] 6.2 10*3/uL 4.4-11.0 [facility] Blood erythrocytes count (nu mber/volume)Ordered By: Dawit Abreu on 02-25-2023 RBC (Bld) [#/Vol] 3.98 10*6/uL 4.2-5.4 [facility] Blood hemoglobin measurement (mass/volume)Ordered By: Dawit Abreu on 02-25-2023 Hemoglobin (Bld) [Mass/Vol] 13.2 g/dL 12.0-15.0 [facility] Blood platelet mean volumeOr dered By: Dawit Abreu on 02-25-2023 Platelet mean volume (Bld) [Entitic vol] 10.7 fL 6.2-12.0 [facility] Determination of erythrocyte mean corpuscular volume (MCV)Ordered By: Dawit Abreu on 02-25-2023 MCV (RBC) [Entitic vol] 102.3 fL 81-99 [facility] Hematocrit Auto (Bld) [Volum e fraction]Ordered By: Dawit Abreu on 02-25-2023 Hematocrit (Bld) [Volume fraction] 40.7 % 37-47 [facility] Laboratory - Chemistry and C hemistry - challengeOrdered By: Dawit Abreu on 02-25-2023 CO2 [Moles/Vol] 32.0 mmol/L 21.0-32.0 [facility] Urea nitrogen/Creatinine [Mass ratio] 26.4 mg/mg 10-20 [facility] Laboratory - Hematology and Cell countsOrdered By: Dawit Abreu on 02-25-2023 Erythrocyte distribution width (RBC) [Entitic vol] 50.1 fL 35.1-43.9 [facility] Erythrocyte distribution width (RBC) [Ratio] 13.3 % 11.6-14.6 [facility] MCH (RBC) [Entitic mass] 33.2 pg 27.0-32.0 [facility] MCHC Auto (RBC) [Mass/Vol]Or dered By: Dawit Abreu on 02-25-2023 MCHC (RBC) [Mass/Vol] 32.4 g/dL 32-36 [facility] No Panel InformationOrdered By: Dawit Abreu on 02-25-2023 Estimated GFR (MDRD) Amer 159 mL/min >60 [facility] Comment on above: GFR Calc Estimated GFR (MDRD) Non-Af Amer 131 mL/min >60 [facility] Comment on above: Non- GFR Calc Platelets bldOrdered By: Yesica Abreu on 02-25-2023 Platelets (Bld) [#/Vol] 213 10*3/uL 150-450 [facility] Serum or plasma calcium heena urement (mass/volume)Ordered By: Dawit Abreu on 02-25-2023 Calcium [Mass/Vol] 8.4 mg/dL 8.5-10.1 [facility] Serum or plasma creatinine m easurement (mass/volume)Ordered By: Dawit Abreu on 02-25-2023 Creatinine [Mass/Vol] 0.53 mg/dL 0.55-1.02 [facility] Comment on above: The validity of the calculated GFR & GFRAA in patients over 70 years has not been determined. Clinical correlation is essential. Serum or plasma urea nitroge n measurement (mass/volume)Ordered By: Dawit Abreu on 02-25-2023 Urea nitrogen [Mass/Vol] 14 mg/dL 7-18 [facility] Thin prep Papanicolaou smear with manual screeningOrdered By: Dawit Abreu on 02-25-2023 Thin prep Papanicolaou smear with manual screening 2 5-15 [facility] Basophil percentageOrdered B y: Dawit Abreu on 01-28-2023 Chloride [Moles/Vol] 109 mmol/L 98-107 [facility] Glucose [Mass/Vol] 111 mg/dL 74-106 [facility] Comment on above: Fasting Glucose resu lt from 100 to 125 mg/dL suggests IMPAIRED HOMEOSTASIS per A.D.A. criteria. Potassium [Moles/Vol] 4.0 mmol/L 3.5-5.1 [facility] Sodium [Moles/Vol] 139 mmol/L 136-145 [facility] WBC (Bld) [#/Vol] 7.4 10*3/uL 4.4-11.0 [facility] Blood erythrocytes count (nu mber/volume)Ordered By: Dawit Abreu on 01-28-2023 RBC (Bld) [#/Vol] 4.34 10*6/uL 4.2-5.4 [facility] Blood hemoglobin measurement (mass/volume)Ordered By: Dawit Abreu on 01-28-2023 Hemoglobin (Bld) [Mass/Vol] 14.1 g/dL 12.0-15.0 [facility] Blood platelet mean volumeOr dered By: Dawit Abreu on 01-28-2023 Platelet mean volume (Bld) [Entitic vol] 11.4 fL 6.2-12.0 [facility] Determination of erythrocyte mean corpuscular volume (MCV)Ordered By: Dawit Abreu on 01-28-2023 MCV (RBC) [Entitic vol] 97.7 fL 81-99 [facility] Hematocrit Auto (Bld) [Volum e fraction]Ordered By: Dawit Abreu on 01-28-2023 Hematocrit (Bld) [Volume fraction] 42.4 % 37-47 [facility] Laboratory - Chemistry and C hemistry - challengeOrdered By: Dawit Abreu on 01-28-2023 CO2 [Moles/Vol] 23.0 mmol/L 21.0-32.0 [facility] Urea nitrogen/Creatinine [Mass ratio] 23.4 mg/mg 10-20 [facility] Laboratory - Hematology and Cell countsOrdered By: Dawit Abreu on 01-28-2023 Erythrocyte distribution width (RBC) [Entitic vol] 46.4 fL 35.1-43.9 [facility] Erythrocyte distribution width (RBC) [Ratio] 13.0 % 11.6-14.6 [facility] MCH (RBC) [Entitic mass] 32.5 pg 27.0-32.0 [facility] MCHC Auto (RBC) [Mass/Vol]Or dered By: Dawit Abreu on 01-28-2023 MCHC (RBC) [Mass/Vol] 33.3 g/dL 32-36 [facility] No Panel InformationOrdered By: Dawit Abreu on 01-28-2023 Estimated GFR (MDRD) Amer 119 mL/min >60 [facility] Comment on above: GFR Calc Estimated GFR (MDRD) Non-Af Amer 98 mL/min >60 [facility] Comment on above: Non- GFR Calc Platelets bldOrdered By: Yesica Abreu on 01-28-2023 Platelets (Bld) [#/Vol] 173 10*3/uL 150-450 [facility] Serum or plasma calcium heena urement (mass/volume)Ordered By: Dawit Abreu on 01-28-2023 Calcium [Mass/Vol] 8.6 mg/dL 8.5-10.1 [facility] Serum or plasma creatinine m easurement (mass/volume)Ordered By: Dawit Abreu on 01-28-2023 Creatinine [Mass/Vol] 0.68 mg/dL 0.55-1.02 [facility] Comment on above: The validity of the calculated GFR & GFRAA in patients over 70 years has not been determined. Clinical correlation is essential. Serum or plasma urea nitroge n measurement (mass/volume)Ordered By: Dawit Abreu on 01-28-2023 Urea nitrogen [Mass/Vol] 16 mg/dL 7-18 [facility] Thin prep Papanicolaou smear with manual screeningOrdered By: Dawit Abreu on 01-28-2023 Thin prep Papanicolaou smear with manual screening 7 5-15 [facility] Basophil percentageOrdered B y: Dawit Abreu on 12-31-2022 Chloride [Moles/Vol] 104 mmol/L 98-107 [facility] Glucose [Mass/Vol] 104 mg/dL 74-106 [facility] Comment on above: Fasting Glucose resu lt from 100 to 125 mg/dL suggests IMPAIRED HOMEOSTASIS per A.D.A. criteria. Potassium [Moles/Vol] 3.4 mmol/L 3.5-5.1 [facility] Sodium [Moles/Vol] 140 mmol/L 136-145 [facility] WBC (Bld) [#/Vol] 6.1 10*3/uL 4.4-11.0 [facility] Blood erythrocytes count (nu mber/volume)Ordered By: Dawit Abreu on 12-31-2022 RBC (Bld) [#/Vol] 4.20 10*6/uL 4.2-5.4 [facility] Blood hemoglobin measurement (mass/volume)Ordered By: Dawit Abreu on 12-31-2022 Hemoglobin (Bld) [Mass/Vol] 13.6 g/dL 12.0-15.0 [facility] Blood platelet mean volumeOr dered By: Dawit Abreu on 12-31-2022 Platelet mean volume (Bld) [Entitic vol] 11.1 fL 6.2-12.0 [facility] Determination of erythrocyte mean corpuscular volume (MCV)Ordered By: Dawit Abreu on 12-31-2022 MCV (RBC) [Entitic vol] 99.0 fL 81-99 [facility] Hematocrit Auto (Bld) [Volum e fraction]Ordered By: Dawit Abreu on 12-31-2022 Hematocrit (Bld) [Volume fraction] 41.6 % 37-47 [facility] Laboratory - Chemistry and C hemistry - challengeOrdered By: Dawit Abreu on 12-31-2022 CO2 [Moles/Vol] 34.0 mmol/L 21.0-32.0 [facility] Urea nitrogen/Creatinine [Mass ratio] 19.8 mg/mg 10 [facility] Laboratory - Hematology and Cell countsOrdered By: Dawit Abreu on 12-31-2022 Erythrocyte distribution width (RBC) [Entitic vol] 47.3 fL 35.1-43.9 [facility] Erythrocyte distribution width (RBC) [Ratio] 13.0 % 11.6-14.6 [facility] MCH (RBC) [Entitic mass] 32.4 pg 27.0-32.0 [facility] MCHC Auto (RBC) [Mass/Vol]Or dered By: Dawit Abreu on 12-31-2022 MCHC (RBC) [Mass/Vol] 32.7 g/dL 32-36 [facility] No Panel InformationOrdered By: Dawit Abreu on 12-31-2022 Estimated GFR (MDRD) Amer 91 mL/min >60 [facility] Comment on above: GFR Calc Estimated GFR (MDRD) Non-Af Amer 76 mL/min >60 [facility] Comment on above: Non- GFR Calc Platelets bldOrdered By: Yesica Abreu on 12-31-2022 Platelets (Bld) [#/Vol] 182 10*3/uL 150-450 [facility] Serum or plasma calcium heena urement (mass/volume)Ordered By: Dawit Abreu on 12-31-2022 Calcium [Mass/Vol] 9.0 mg/dL 8.5-10.1 [facility] Serum or plasma creatinine m easurement (mass/volume)Ordered By: Dawit Abreu on 12-31-2022 Creatinine [Mass/Vol] 0.86 mg/dL 0.55-1.02 [facility] Comment on above: The validity of the calculated GFR & GFRAA in patients over 70 years has not been determined. Clinical correlation is essential. Serum or plasma urea nitroge n measurement (mass/volume)Ordered By: Dawit Abreu on 12-31-2022 Urea nitrogen [Mass/Vol] 17 mg/dL 7- [facility] Thin prep Papanicolaou smear with manual screeningOrdered By: Dawit Abreu on 12-31-2022 Thin prep Papanicolaou smear with manual screening 2 5-15 [facility] Basophil percentageOrdered B y: Dawit Abreu on 12-03-2022 Chloride [Moles/Vol] 105 mmol/L 98-107 [facility] Glucose [Mass/Vol] 95 mg/dL 74-106 [facility] Potassium [Moles/Vol] 3.9 mmol/L 3.5-5.1 [facility] Comment on above: Moderate Hemolysis, Result may be falsely increased. Sodium [Moles/Vol] 140 mmol/L 136-145 [facility] WBC (Bld) [#/Vol] 6.9 10*3/uL 4.4-11.0 [facility] Blood erythrocytes count (nu mber/volume)Ordered By: Dawit Abreu on 12-03-2022 RBC (Bld) [#/Vol] 4.61 10*6/uL 4.2-5.4 [facility] Blood hemoglobin measurement (mass/volume)Ordered By: Dawit Abreu on 12-03-2022 Hemoglobin (Bld) [Mass/Vol] 15.0 g/dL 12.0-15.0 [facility] Blood platelet mean volumeOr dered By: Dawit Abreu on 12-03-2022 Platelet mean volume (Bld) [Entitic vol] 11.5 fL 6.2-12.0 [facility] Determination of erythrocyte mean corpuscular volume (MCV)Ordered By: Dawit Abreu on 12-03-2022 MCV (RBC) [Entitic vol] 99.3 fL 81-99 [facility] Hematocrit Auto (Bld) [Volum e fraction]Ordered By: Dawit Abreu on 12-03-2022 Hematocrit (Bld) [Volume fraction] 45.8 % 37-47 [facility] Laboratory - Chemistry and C hemistry - challengeOrdered By: Dawit Abreu on 12-03-2022 CO2 [Moles/Vol] 30.0 mmol/L 21.0-32.0 [facility] Urea nitrogen/Creatinine [Mass ratio] 26.7 mg/mg 10-20 [facility] Laboratory - Hematology and Cell countsOrdered By: Dawit Abreu on 12-03-2022 Erythrocyte distribution width (RBC) [Entitic vol] 46.7 fL 35.1-43.9 [facility] Erythrocyte distribution width (RBC) [Ratio] 12.8 % 11.6-14.6 [facility] MCH (RBC) [Entitic mass] 32.5 pg 27.0-32.0 [facility] MCHC Auto (RBC) [Mass/Vol]Or dered By: Dawit Abreu on 12-03-2022 MCHC (RBC) [Mass/Vol] 32.8 g/dL 32-36 [facility] No Panel InformationOrdered By: Dawit Abreu on 12-03-2022 Estimated GFR (MDRD) Amer 107 mL/min >60 [facility] Comment on above: GFR Calc Estimated GFR (MDRD) Non-Af Amer 88 mL/min >60 [facility] Comment on above: Non- GFR Calc Platelets bldOrdered By: Yesica Abreu on 12-03-2022 Platelets (Bld) [#/Vol] 171 10*3/uL 150-450 [facility] Serum or plasma calcium heena urement (mass/volume)Ordered By: Dawit Abreu on 12-03-2022 Calcium [Mass/Vol] 8.9 mg/dL 8.5-10.1 [facility] Serum or plasma creatinine m easurement (mass/volume)Ordered By: Dawit Abreu on 12-03-2022 Creatinine [Mass/Vol] 0.75 mg/dL 0.55-1.02 [facility] Comment on above: The validity of the calculated GFR & GFRAA in patients over 70 years has not been determined. Clinical correlation is essential. Serum or plasma urea nitroge n measurement (mass/volume)Ordered By: Dawit Abreu on 12-03-2022 Urea nitrogen [Mass/Vol] 20 mg/dL 7-18 [facility] Thin prep Papanicolaou smear with manual screeningOrdered By: Dawit Abreu on 12-03-2022 Thin prep Papanicolaou smear with manual screening 5 5-15 [facility] Basophil percentageOrdered B y: Dawit Abreu on 11-05-2022 Chloride [Moles/Vol] 107 mmol/L 98-107 [facility] Glucose [Mass/Vol] 104 mg/dL 74-106 [facility] Comment on above: Fasting Glucose resu lt from 100 to 125 mg/dL suggests IMPAIRED HOMEOSTASIS per A.D.A. criteria. Potassium [Moles/Vol] 3.4 mmol/L 3.5-5.1 [facility] Sodium [Moles/Vol] 144 mmol/L 136-145 [facility] WBC (Bld) [#/Vol] 6.6 10*3/uL 4.4-11.0 [facility] Blood erythrocytes count (nu mber/volume)Ordered By: Dawit Abreu on 11-05-2022 RBC (Bld) [#/Vol] 4.26 10*6/uL 4.2-5.4 [facility] Blood hemoglobin measurement (mass/volume)Ordered By: Dawit Abreu on 11-05-2022 Hemoglobin (Bld) [Mass/Vol] 13.8 g/dL 12.0-15.0 [facility] Blood platelet mean volumeOr dered By: Dawit Abreu on 11-05-2022 Platelet mean volume (Bld) [Entitic vol] 11.4 fL 6.2-12.0 [facility] Determination of erythrocyte mean corpuscular volume (MCV)Ordered By: Dawit Abreu on 11-05-2022 MCV (RBC) [Entitic vol] 98.8 fL 81-99 [facility] Hematocrit Auto (Bld) [Volum e fraction]Ordered By: Dawit Abreu on 11-05-2022 Hematocrit (Bld) [Volume fraction] 42.1 % 37-47 [facility] Laboratory - Chemistry and C hemistry - challengeOrdered By: Dawit Abreu on 11-05-2022 CO2 [Moles/Vol] 33.0 mmol/L 21.0-32.0 [facility] Urea nitrogen/Creatinine [Mass ratio] 28.8 mg/mg 10-20 [facility] Laboratory - Hematology and Cell countsOrdered By: Dawit Abreu on 11-05-2022 Erythrocyte distribution width (RBC) [Entitic vol] 46.7 fL 35.1-43.9 [facility] Erythrocyte distribution width (RBC) [Ratio] 13.1 % 11.6-14.6 [facility] MCH (RBC) [Entitic mass] 32.4 pg 27.0-32.0 [facility] ([facility]BC) [Mass/Vol]Or dered By: Dawit Abreu on 11-05-2022 MCHC (RBC) [Mass/Vol] 32.8 g/dL 32-36 [facility] No Panel InformationOrdered By: Dawit Abreu on 11-05-2022 Estimated GFR (MDRD) Amer 95 mL/min >60 [facility] Comment on above: GFR Calc Estimated GFR (MDRD) Non-Af Amer 78 mL/min >60 [facility] Comment on above: Non- GFR Calc Platelets bldOrdered By: Yesica Abreu on 11-05-2022 Platelets (Bld) [#/Vol] 178 10*3/uL 150-450 [facility] Serum or plasma calcium heena urement (mass/volume)Ordered By: Dawit Abreu on 11-05-2022 Calcium [Mass/Vol] 9.1 mg/dL 8.5-10.1 [facility] Serum or plasma creatinine m easurement (mass/volume)Ordered By: Dawit Abreu on 11-05-2022 Creatinine [Mass/Vol] 0.83 mg/dL 0.55-1.02 [facility] Comment on above: The validity of the calculated GFR & GFRAA in patients over 70 years has not been determined. Clinical correlation is essential. Serum or plasma urea nitroge n measurement (mass/volume)Ordered By: Dawit Abreu on 11-05-2022 Urea nitrogen [Mass/Vol] 24 mg/dL 7-18 [facility] Thin prep Papanicolaou smear with manual screeningOrdered By: Dawit Abreu on 11-05-2022 Thin prep Papanicolaou smear with manual screening 4 5-15 [facility] 36on 10-31-2022 36 Recevied call [...] needs at this time. Appointment cancelled. Normal [facility] Basophil percentageOrdered B y: Dawit Abreu on 10-08-2022 Chloride [Moles/Vol] 105 mmol/L 98-107 [facility] Glucose [Mass/Vol] 92 mg/dL 74-106 [facility] Potassium [Moles/Vol] 3.6 mmol/L 3.5-5.1 [facility] Sodium [Moles/Vol] 142 mmol/L 136-145 [facility] WBC (Bld) [#/Vol] 6.6 10*3/uL 4.4-11.0 [facility] Blood erythrocytes count (nu mber/volume)Ordered By: Dawit Abreu on 10-08-2022 RBC (Bld) [#/Vol] 4.50 10*6/uL 4.2-5.4 [facility] Blood hemoglobin measurement (mass/volume)Ordered By: Dawit Abreu on 10-08-2022 Hemoglobin (Bld) [Mass/Vol] 14.7 g/dL 12.0-15.0 [facility] Blood platelet mean volumeOr dered By: Dawit Abreu on 10-08-2022 Platelet mean volume (Bld) [Entitic vol] 10.9 fL 6.2-12.0 [facility] Determination of erythrocyte mean corpuscular volume (MCV)Ordered By: Dawit Abreu on 10-08-2022 MCV (RBC) [Entitic vol] 100.2 fL 81-99 [facility] Hematocrit Auto (Bld) [Volum e fraction]Ordered By: Dawit Abreu on 10-08-2022 Hematocrit (Bld) [Volume fraction] 45.1 % 37-47 [facility] Laboratory - Chemistry and C hemistry - challengeOrdered By: Dawit Abreu on 10-08-2022 CO2 [Moles/Vol] 29.0 mmol/L 21.0-32.0 [facility] Urea nitrogen/Creatinine [Mass ratio] 18.9 mg/mg 10-20 [facility] Laboratory - Hematology and Cell countsOrdered By: Dawit Abreu on 10-08-2022 Erythrocyte distribution width (RBC) [Entitic vol] 49.8 fL 35.1-43.9 [facility] Erythrocyte distribution width (RBC) [Ratio] 13.4 % 11.6-14.6 [facility] MCH (RBC) [Entitic mass] 32.7 pg 27.0-32.0 [facility] (RBC) [Mass/Vol]Or dered By: Dawit Abreu on 10-08-2022 MCHC (RBC) [Mass/Vol] 32.6 g/dL 32-36 [facility] No Panel InformationOrdered By: Dawit Abreu on 10-08-2022 Estimated GFR (MDRD) Amer 100 mL/min >60 [facility] Comment on above: GFR Calc Estimated GFR (MDRD) Non-Af Amer 83 mL/min >60 [facility] Comment on above: Non- GFR Calc Platelets bldOrdered By: Yesica Abreu on 10-08-2022 Platelets (Bld) [#/Vol] 216 10*3/uL 150-450 [facility] Serum or plasma calcium heena urement (mass/volume)Ordered By: Dawit Abreu on 10-08-2022 Calcium [Mass/Vol] 8.9 mg/dL 8.5-10.1 [facility] Serum or plasma creatinine m easurement (mass/volume)Ordered By: Dawit Abreu on 10-08-2022 Creatinine [Mass/Vol] 0.79 mg/dL 0.55-1.02 [facility] Comment on above: The validity of the calculated GFR & GFRAA in patients over 70 years has not been determined. Clinical correlation is essential. Serum or plasma urea nitroge n measurement (mass/volume)Ordered By: Dawit Abreu on 10-08-2022 Urea nitrogen [Mass/Vol] 15 mg/dL 7-18 [facility] Thin prep Papanicolaou smear with manual screeningOrdered By: Dawit Abreu on 10-08-2022 Thin prep Papanicolaou smear with manual screening 8 5-15 [facility] 36on 10-02-2022 36 Phone call placed to facility spoke to Johnathan. Appointment scheduled with JOSE . [facility] 36on 10-01-2022 36 Called [facility]. Vehicle [employer] Maker answered phone and transferred call to nurse Johnathan. Phone rang for 1 minute with no answer. Routing back to clinical to call again. Normal [facility] Calculi Analysis(Stone)on Calculi Composition See Note Normal [facility] Comment on above: Result Comment: Calc merly [...] composition determined by FTIR analysis. Performed By: [employer] [address] [place] [address] Insurance Adviser: Carolyne Siu MD Performed By: #### P T, APTT #### [facility] [address], [place] Calculi Description See Note Normal [facility] Comment on above: Result Comment: Spec imen consists of numerous cespedes calculi fragments. Specimen was not received in the preferred dry state. The presence of liquid, blood, gel, or adhesive often delays analysis. The total weight is 1567 mg. Performed By: #### P T, APTT #### [facility] [address], [place] Calculi Mass 1567 mg Normal [facility] Comment on above: Performed By: #### P T, APTT #### [facility] [address], [place] Basic Metabolic Panelon - Anion gap [Moles/Vol] 3 mmol/L Normal 3-13 [facility] Comment on above: Performed By: #### H EMOG, BMP3M #### [facility] [address], [place] Calcium [Mass/Vol] 8.7 mg/dL Normal 8.4-10.4 [facility] Comment on above: Performed By: #### H EMOG, BMP3M #### [facility] [address], [place] CO2 [Moles/Vol] 29 mmol/L Normal 22-30 [facility] Comment on above: Performed By: #### H EMOG, BMP3M #### [facility] [address], [place] Glucose [Mass/Vol] 87 mg/dL Normal 70-100 [facility] Comment on above: Performed By: #### H MILLA BMP3M #### [facility] [address], [place] Urea nitrogen [Mass/Vol] 13 mg/dL Normal 9-20 [facility] Comment on above: Performed By: #### H MILLA BMP3M #### [facility] [address] [place] [address] Creatinine [Mass/Vol] 0.69 mg/dL Normal 0.52-1.25 [facility] Comment on above: Performed By: #### H MILLA BMP3M #### [facility] [address], [place] eGFR OTHER > 90.0 Normal >60 [facility] Comment on above: Result Comment: KDIG [...] tubular creatinine secretion. Performed By: #### H MILLA BMP3M #### [facility] [address], [place] GFR/1.73 sq M.predicted among blacks MDRD (S/P/Bld) [Vol rate/Area] mL/min/{1.73_m2} Normal >60 [facility] Comment on above: Performed By: #### H MILLA BMP3M #### [facility] [address], [place] Potassium [Moles/Vol] 3.7 mmol/L Normal 3.5-5.1 [facility] Comment on above: Performed By: #### Danielle LOYOLA BMP3M #### [place] [address], [place] Sodium [Moles/Vol] 136 mmol/L Normal 135-145 [facility] Comment on above: Performed By: #### H MILLA BMP3M #### [place] [address] [place], [place] Chloride [Moles/Vol] 103 mmol/L Normal 98-107 [facility] Comment on above: Performed By: #### H MILLA BMP3M #### [place] [address], [place] CULTURE URINEon 11-06-2021 CULTURE URINE CULTURE URINE --> Status: F No growth (<1,000 CFU/ml). Normal [facility] Comment on above: Performed By: #### P T, APTT #### [place] [address], [place] Hemogramon 11-06-2021 Erythrocyte distribution width (RBC) [Ratio] 13.7 % Normal 11.5-14.5 [facility] Comment on above: Performed By: #### Danielle LOYOLA BMP3M #### [place] [address] [place], [place] Hematocrit (Bld) [Volume fraction] 35.9 % Normal 35.0-47.0 [facility] Comment on above: Performed By: #### Danielle LOYOLA BMP3M #### [place] [address] [place], [place] Hemoglobin (Bld) [Mass/Vol] 11.9 g/dL Normal 11.7-16.0 [facility] Comment on above: Performed By: #### Danielle LOYOLA BMP3M #### [place] [address] [place], [place] MCH (RBC) [Entitic mass] 30.3 pg Normal 26.0-34.0 [facility] Comment on above: Performed By: #### Danielle LOYOLA BMP3M #### [place] [address] [place], [place] MCHC 33.2 % Normal 32.0-36.0 [facility] Comment on above: Performed By: #### MOSES HE3Jo #### [place] [address] [place], [place] MCV (RBC) [Entitic vol] 91.1 fL Normal 79.0-98.0 [facility] Comment on above: Performed By: #### Danielle LOYOLA BMP3M #### [place] [address] [place], [place] Platelet mean volume (Bld) [Entitic vol] 8.3 fL Normal 7.4-10.4 [facility] Comment on above: Performed By: #### Danielle LOYOLA BMP3M #### [place] [address] [place], [place] Platelets (Bld) [#/Vol] 200 10*3/uL Normal 140-440 [facility] Comment on above: Performed By: #### Danielle LOYOLA BMP3M #### [place] [address] [place], [place] RBC (Bld) [#/Vol] 3.94 10*6/uL Normal 3.80-5.20 [facility] Comment on above: Performed By: #### Danielle LOYOLA BMP3M #### [place] [address] [place], [place] WBC (Bld) [#/Vol] 4.4 10*3/uL Normal 3.6-10.7 [facility] Comment on above: Performed By: #### Danielle LOYOLA BMP3M #### [place] [address] [place], [place] Basic Metabolic Panelon 02- Anion gap [Moles/Vol] 6 mmol/L Normal 3-13 [facility] Comment on above: Performed By: #### Jo G3 BMP3M, HEMOG #### [place] [address] [place], [place] Calcium [Mass/Vol] 8.9 mg/dL Normal 8.4-10.4 [facility] Comment on above: Performed By: #### M G3, BMP3M, HEMOG #### [facility] [address], [place] CO2 [Moles/Vol] 28 mmol/L Normal 22-30 [facility] Comment on above: Performed By: #### M G3, BMP3M, HEMOG #### [facility] [address], [place] Glucose [Mass/Vol] 91 mg/dL Normal 70-100 [facility] Comment on above: Performed By: #### M G3, BMP3M, HEMOG #### [facility] [address], [place] Urea nitrogen [Mass/Vol] 13 mg/dL Normal 9-20 [facility] Comment on above: Performed By: #### M G3, BMP3M, HEMOG #### [facility] [address], [place] Creatinine [Mass/Vol] 0.64 mg/dL Normal 0.52-1.25 [facility] Comment on above: Performed By: #### M G3, BMP3M, HEMOG #### [facility] [address], [place] eGFR OTHER > 90.0 Normal >60 [facility] Comment on above: Result Comment: KDIG [...] creatinine secretion. Performed By: #### M G3, BMP3M, HEMOG #### [place] [address] [place], [place] GFR/1.73 sq M.predicted among blacks MDRD (S/P/Bld) [Vol rate/Area] mL/min/{1.73_m2} Normal >60 [facility] Comment on above: Performed By: #### Jo G3, BMP3M, HEMOG #### [place] [address] [place], [place] Potassium [Moles/Vol] 3.2 mmol/L Low 3.5-5.1 [facility] Comment on above: Performed By: #### Jo G3, BMP3M, HEMOG #### [place] [address] [place], [place] Sodium [Moles/Vol] 140 mmol/L Normal 135-145 [facility] Comment on above: Performed By: #### Jo G3, BMP3M, HEMOG #### [place] [address] [place], [place] Chloride [Moles/Vol] 106 mmol/L Normal 98-107 [facility] Comment on above: Performed By: #### Jo G3, BMP3M, HEMOG #### [address] Hemogramon 11-05-2021 Erythrocyte distribution width (RBC) [Ratio] 13.5 % Normal 11.5-14.5 [facility] Comment on above: Performed By: #### Jo G3, BMP3M, HEMOG #### [place] [address] [place], [place] Hematocrit (Bld) [Volume fraction] 35.3 % Normal 35.0-47.0 [facility] Comment on above: Performed By: #### Jo G3, BMP3M, HEMOG #### [place] [address] [place], [place] Hemoglobin (Bld) [Mass/Vol] 12.0 g/dL Normal 11.7-16.0 [facility] Comment on above: Performed By: #### Jo G3, BMP3M, HEMOG #### [place] [address] [place], [place] MCH (RBC) [Entitic mass] 30.7 pg Normal 26.0-34.0 [facility] Comment on above: Performed By: #### Jo Orellana BMP3M, HEMOG #### [facility] [address], [place] MCHC 34.1 % Normal 32.0-36.0 [facility] Comment on above: Performed By: #### Jo Orellana BMP3M, HEMOG #### [place] [address] [place], [place] MCV (RBC) [Entitic vol] 90.1 fL Normal 79.0-98.0 [facility] Comment on above: Performed By: #### Jo Orellana BMP3M, HEMOG #### [place] [address] [place], [place] Platelet mean volume (Bld) [Entitic vol] 8.5 fL Normal 7.4-10.4 [facility] Comment on above: Performed By: #### Jo Orellana BMP3M, HEMOG #### [place] [address] [place], [place] Platelets (Bld) [#/Vol] 208 10*3/uL Normal 140-440 [facility] Comment on above: Performed By: #### Jo Orellana, BMP3M, HEMOG #### [place] [address] [place], [place] RBC (Bld) [#/Vol] 3.92 10*6/uL Normal 3.80-5.20 [facility] Comment on above: Performed By: #### Jo G3, BMP3M, HEMOG #### [place] [address] [place], [place] WBC (Bld) [#/Vol] 5.9 10*3/uL Normal 3.6-10.7 [facility] Comment on above: Performed By: #### Jo G3, BMP3M, HEMOG #### [place] [address] [place], [place] Magnesiumon 11-05-2021 Magnesium [Mass/Vol] 2.0 mg/dL Normal 1.6-2.3 [facility] Comment on above: Performed By: #### M G3, BMP3M, HEMOG #### [facility] [address] [place] [address] [id number] 11-05-2021 SARS-CoV-2 (COVID-19) RNA CHACE+probe Ql (Unsp spec) SARS-CoV-2 --> Status: F Not Detected. Expected result: Not Detected _ Method: Real-time, RT-PCR Negative results do not preclude SARS-CoV-2 infection and should not be used as the sole basis for treatment or other patient management decisions. This assay was developed by [employer] and distributed under an Emergency Use Authorization (EUA) granted by the FDA for the qualitative detection of SARS-CoV-2 nucleic acid. Provider and patient fact sheets can be found at https://www.fda.gov/medi a/666140/download and https://www.fda.gov/medi a/108945/download. Expected result: Not Detected _ Method: Real-time, RT-PCR Negative results do not preclude SARS-CoV-2 infection and should not be used as the sole basis for treatment or other patient management decisions. This assay was developed by [employer] and distributed under an Emergency Use Authorization (EUA) granted by the FDA for the qualitative detection of SARS-CoV-2 nucleic acid. Provider and patient fact sheets can be found at https://www.fda.gov/medi a/326019/download and https://www.fda.gov/medi a/105400/download. Normal [facility] Comment on above: Performed By: #### P T, APTT #### [facility] [employer] [facility] [address] [place] [address] Basic Metabolic Panelon 10-24 Calcium [Mass/Vol] 8.6 mg/dL Normal 8.4-10.4 [facility] Comment on above: Performed By: #### B MP3M, HEMOG #### [facility] [address], [place] Glucose [Mass/Vol] 140 mg/dL High 70-100 [facility] Comment on above: Performed By: #### B MP3M, HEMOG #### [facility] [address], [place] Anion gap [Moles/Vol] 5 mmol/L Normal 3-13 [facility] Comment on above: Performed By: #### B MP3M, HEMOG #### [facility] [address], [place] CO2 [Moles/Vol] 27 mmol/L Normal 22-30 [facility] Comment on above: Performed By: #### B MP3M, HEMOG #### [facility] [address], [place] Creatinine [Mass/Vol] 0.74 mg/dL Normal 0.52-1.25 [facility] Comment on above: Performed By: #### B MP3M, HEMOG #### [facility] [address], [place] eGFR OTHER > 90.0 Normal >60 [facility] Comment on above: Result Comment: KDIG [...] renal tubular creatinine secretion. Performed By: #### B MP3M, HEMOG #### [facility] [address], [place] GFR/1.73 sq M.predicted among blacks MDRD (S/P/Bld) [Vol rate/Area] mL/min/{1.73_m2} Normal >60 [facility] Comment on above: Performed By: #### B MP3M, HEMOG #### [facility] [address], [place] Urea nitrogen [Mass/Vol] 21 mg/dL High 9-20 [facility] Comment on above: Performed By: #### B MP3M, HEMOG #### [facility] [address], [place] Chloride [Moles/Vol] 103 mmol/L Normal 98-107 [facility] Comment on above: Performed By: #### B MP3M, HEMOG #### [facility] [address], [place] Potassium [Moles/Vol] 4.0 mmol/L Normal 3.5-5.1 [facility] Comment on above: Performed By: #### B MP3M, HEMOG #### [facility] [address], [place] Sodium [Moles/Vol] 135 mmol/L Normal 135-145 [facility] Comment on above: Performed By: #### B MP3M, HEMOG #### [facility] [address], [place] Hemogramon 11-04-2021 Erythrocyte distribution width (RBC) [Ratio] 13.5 % Normal 11.5-14.5 [facility] Comment on above: Performed By: #### B MP3M, HEMOG #### [facility] [address], [place] Hematocrit (Bld) [Volume fraction] 35.8 % Normal 35.0-47.0 [facility] Comment on above: Performed By: #### B MP3M, HEMOG #### [facility] [address], [place] Hemoglobin (Bld) [Mass/Vol] 12.1 g/dL Normal 11.7-16.0 [facility] Comment on above: Performed By: #### B MP3M, HEMOG #### [facility] [address], [place] MCH (RBC) [Entitic mass] 30.3 pg Normal 26.0-34.0 [facility] Comment on above: Performed By: #### B MP3M, HEMOG #### [place] [address] [place], [place] MCHC 33.6 % Normal 32.0-36.0 [facility] Comment on above: Performed By: #### B MP3M, HEMOG #### [place] [address] [place], [place] MCV (RBC) [Entitic vol] 89.9 fL Normal 79.0-98.0 [facility] Comment on above: Performed By: #### B MP3M, HEMOG #### [place] [address] [place], [place] Platelet mean volume (Bld) [Entitic vol] 7.8 fL Normal 7.4-10.4 [facility] Comment on above: Performed By: #### B MP3M, HEMOG #### [place] [address] [place], [place] Platelets (Bld) [#/Vol] 229 10*3/uL Normal 140-440 [facility] Comment on above: Performed By: #### B MP3M, HEMOG #### [place] [address] [place], [place] RBC (Bld) [#/Vol] 3.98 10*6/uL Normal 3.80-5.20 [facility] Comment on above: Performed By: #### B MP3M, HEMOG #### [place] [address] [place], [place] WBC (Bld) [#/Vol] 7.5 10*3/uL Normal 3.6-10.7 [facility] Comment on above: Performed By: #### B MP3M, HEMOG #### [place] [address] [place], [place] APTTon 11-03-2021 aPTT Coag (Bld) [Time] 32.0 s High 20.0-30.5 [facility] Comment on above: Result Comment: NOTE : The therapeutic time for Heparin anticoagulation, based on Xa activity inhibition, is an APTT of 46-80 seconds. Performed By: #### P T, APTT #### [facility] [address] [place] [address] Op Noteon 11-03-2021 Op Note PreOp Dx [...] emptied and patient awoken from anesthesia. Normal [facility] Prothrombin Timeon 2 INR 1.1 Normal 0.9-1.1 [facility] Comment on above: Result Comment: Tulio mmended [...] Performed By: #### P T, APTT #### [facility] [address] [place] [address] PT Coag (PPP) [Time] 11.3 s Normal 9.0-12.0 [facility] Comment on above: Result Comment: . Performed By: #### P T, APTT #### [facility] [address] [place] Basic Metabolic Panelon 02-0 Calcium [Mass/Vol] 8.6 mg/dL Normal 8.4-10.4 [facility] Comment on above: Performed By: #### P HOS3, MG3, HEMDF, LFT3, BMP3M #### [facility] [address] [place] [address] Anion gap [Moles/Vol] 5 mmol/L Normal 3-13 [facility] Comment on above: Performed By: #### P HOS3, MG3, HEMDF, LFT3, BMP3M #### [facility] [address] [place] [address] CO2 [Moles/Vol] 26 mmol/L Normal 22-30 [facility] Comment on above: Performed By: #### P HOS3, MG3, HEMDF, LFT3, BMP3M #### [facility] [address] [place] [address] Creatinine [Mass/Vol] 0.61 mg/dL Normal 0.52-1.25 [facility] Comment on above: Performed By: #### P HOS3, MG3, HEMDF, LFT3, BMP3M #### [facility] [address] [place] [address] eGFR OTHER > 90.0 Normal >60 [facility] Comment on above: Result Comment: KDIG [...] P HOS3, MG3, HEMDF, LFT3, BMP3M #### [facility] [address] [place] [address] GFR/1.73 sq M.predicted among blacks MDRD (S/P/Bld) [Vol rate/Area] mL/min/{1.73_m2} Normal >60 [facility] Comment on above: Performed By: #### P HOS3, MG3, HEMDF, LFT3, BMP3M #### [facility] [address] [place] [address] Glucose [Mass/Vol] 74 mg/dL Normal 70-100 [facility] Comment on above: Performed By: #### P HOS3, MG3, HEMDF, LFT3, BMP3M #### [facility] [address] [place] [address] Urea nitrogen [Mass/Vol] 12 mg/dL Normal 9-20 [facility] Comment on above: Performed By: #### P HOS3, MG3, HEMDF, LFT3, BMP3M #### [facility] [address] [place] [address] Potassium [Moles/Vol] 3.4 mmol/L Low 3.5-5.1 [facility] Comment on above: Performed By: #### P HOS3, MG3, HEMDF, LFT3, BMP3M #### [facility] [address] [place] [address] Sodium [Moles/Vol] 137 mmol/L Normal 135-145 [facility] Comment on above: Performed By: #### P HOS3, MG3, HEMDF, LFT3, BMP3M #### [facility] [address] [place] [address] Chloride [Moles/Vol] 106 mmol/L Normal 98-107 [facility] Comment on above: Performed By: #### P HOS3, MG3, HEMDF, LFT3, BMP3M #### [facility] [address] [place] [address] CULTURE URINEon 10-27-2021 CULTURE URINE CULTURE URINE --> Status: F Multiple organisms, no one type predominant, suggestive of collection contamination or delayed transport to laboratory. Recollect if clinically indicated. collection contamination or delayed transport to laboratory. Recollect if clinically indicated. Normal [facility] Comment on above: Performed By: #### M G3, TROPN, LFT3, BMP3M, PHOS3, HEMDF #### [facility] [address] [place] [address] Hemogram w/ Autodiffon 10-27 Abs Baso Cnt 0.0 10*3/uL Normal 0.0-0.2 [facility] Comment on above: Performed By: #### P HOS3, MG3, HEMDF, LFT3, BMP3M #### [facility] [address] [place] [address] Abs Neutrophile Cnt 3.3 10*3/uL Normal 1.8-7.0 [facility] Comment on above: Performed By: #### P HOS3, MG3, HEMDF, LFT3, BMP3M #### [facility] [address] [place] [address] Basophils/100 WBC (Bld) 0.7 % Normal 0.0-2.0 [facility] Comment on above: Performed By: #### P HOS3, MG3, HEMDF, LFT3, BMP3M #### [facility] [address] [place] [address] Eosinophils (Bld) [#/Vol] 0.1 10*3/uL Normal 0.0-0.5 [facility] Comment on above: Performed By: #### P HOS3, MG3, HEMDF, LFT3, BMP3M #### [facility] [address] [place] [address] Eosinophils/100 WBC (Bld) 2.0 % Normal 1.0-6.0 [facility] Comment on above: Performed By: #### P HOS3, MG3, HEMDF, LFT3, BMP3M #### [facility] [address] [place] [address] Erythrocyte distribution width (RBC) [Ratio] 13.9 % Normal 11.5-14.5 [facility] Comment on above: Performed By: #### P HOS3, MG3, HEMDF, LFT3, BMP3M #### [facility] [address] [place] [address] Granulocytes/100 WBC (Bld) 60.7 % Normal 40.0-80.0 [facility] Comment on above: Performed By: #### P HOS3, MG3, HEMDF, LFT3, BMP3M #### [place] [address] [place] [address] Hematocrit (Bld) [Volume fraction] 31.5 % Low 35.0-47.0 [facility] Comment on above: Performed By: #### P HOS3, MG3, HEMDF, LFT3, BMP3M #### [place] [address] [place] [address] Hemoglobin (Bld) [Mass/Vol] 10.6 g/dL Low 11.7-16.0 [facility] Comment on above: Performed By: #### P HOS3, MG3, HEMDF, LFT3, BMP3M #### [place] [address] [place] [address] Lymphocytes (Bld) [#/Vol] 1.7 10*3/uL Normal 1.0-4.3 [facility] Comment on above: Performed By: #### P HOS3, MG3, HEMDF, LFT3, BMP3M #### [place] [address] [place] [address] Lymphocytes/100 WBC (Bld) 31.2 % Normal 20.0-40.0 [facility] Comment on above: Performed By: #### P HOS3, MG3, HEMDF, LFT3, BMP3M #### [place] [address] [place] [address] MCH (RBC) [Entitic mass] 31.3 pg Normal 26.0-34.0 [facility] Comment on above: Performed By: #### P HOS3, MG3, HEMDF, LFT3, BMP3M #### [facility] [address] [place] [address] MCHC 33.7 % Normal 32.0-36.0 [facility] Comment on above: Performed By: #### P HOS3, MG3, HEMDF, LFT3, BMP3M #### [facility] [address] [place] [address] MCV (RBC) [Entitic vol] 93.0 fL Normal 79.0-98.0 [facility] Comment on above: Performed By: #### P HOS3, MG3, HEMDF, LFT3, BMP3M #### [facility] [address] [place] [address] Monocytes (Bld) [#/Vol] 0.3 10*3/uL Normal 0.0-0.8 [facility] Comment on above: Performed By: #### P HOS3, MG3, HEMDF, LFT3, BMP3M #### [facility] [address] [place] [address] Monocytes/100 WBC (Bld) 5.4 % Normal 2.0-10.0 [facility] Comment on above: Performed By: #### P HOS3, MG3, HEMDF, LFT3, BMP3M #### [facility] [address] [place] [address] Platelet mean volume (Bld) [Entitic vol] 8.1 fL Normal 7.4-10.4 [facility] Comment on above: Performed By: #### P HOS3, MG3, HEMDF, LFT3, BMP3M #### [facility] [address] [place] [address] Platelets (Bld) [#/Vol] 165 10*3/uL Normal 140-440 [facility] Comment on above: Performed By: #### P HOS3, MG3, HEMDF, LFT3, BMP3M #### [facility] [address] [place] [address] RBC (Bld) [#/Vol] 3.38 10*6/uL Low 3.80-5.20 [facility] Comment on above: Performed By: #### P HOS3, MG3, HEMDF, LFT3, BMP3M #### [facility] [address] [place] [address] WBC (Bld) [#/Vol] 5.5 10*3/uL Normal 3.6-10.7 [facility] Comment on above: Performed By: #### P HOS3, MG3, HEMDF, LFT3, BMP3M #### [facility] [address] [place] [address] Hepatic Functionon 2 ALT [Catalytic activity/Vol] 24 U/L Normal 0-34 [facility] Comment on above: Result Comment: The ALT test is performed by an updated assay method. Please note that the reference intervals have been changed and are now sex specific. Performed By: #### M G3, TROPN, LFT3, BMP3M, PHOS3, HEMDF #### [facility] [address] [place] [address] ALP [Catalytic activity/Vol] 125 U/L Normal 38-126 [facility] Comment on above: Performed By: #### M G3, TROPN, LFT3, BMP3M, PHOS3, HEMDF #### [facility] [address] [place] [address] AST [Catalytic activity/Vol] 39 U/L Normal 15-46 [facility] Comment on above: Performed By: #### M G3, TROPN, LFT3, BMP3M, PHOS3, HEMDF #### [facility] [address] [place] [address] Bilirubin [Mass/Vol] 0.7 mg/dL Normal 0.2-1.3 [facility] Comment on above: Performed By: #### M G3, TROPN, LFT3, BMP3M, PHOS3, HEMDF #### [facility] [address] [place] [address] Bilirubin.indirect [Mass/Vol] 0.0 mg/dL Normal 0.0-0.3 [facility] Comment on above: Performed By: #### M G3, TROPN, LFT3, BMP3M, PHOS3, HEMDF #### [facility] [address] [place] [address] Protein [Mass/Vol] 6.2 g/dL Low 6.3-8.2 [facility] Comment on above: Performed By: #### M G3, TROPN, LFT3, BMP3M, PHOS3, HEMDF #### [facility] [address] [place] [address] Albumin [Mass/Vol] 3.1 g/dL Low 3.5-5.0 [facility] Comment on above: Performed By: #### M G3, TROPN, LFT3, BMP3M, PHOS3, HEMDF #### [facility] [address] [place] [address] Magnesiumon 10-27-2021 Magnesium [Mass/Vol] 1.8 mg/dL Normal 1.6-2.3 [facility] Comment on above: Performed By: #### P HOS3, MG3, HEMDF, LFT3, BMP3M #### [facility] [address] [place] [address] Phosphoruson 10-27-2021 Phosphate [Mass/Vol] 2.3 mg/dL Low 2.5-4.5 [facility] Comment on above: Performed By: #### P HOS3, MG3, HEMDF, LFT3, BMP3M #### [facility] [address] [place] [address] Basic Metabolic Panelon -0 Calcium [Mass/Vol] 8.1 mg/dL Low 8.4-10.4 [facility] Comment on above: Performed By: #### M G3, TROPN, LFT3, BMP3M, PHOS3, HEMDF #### [facility] [address] [place] [address] Anion gap [Moles/Vol] 3 mmol/L Normal 3-13 [facility] Comment on above: Performed By: #### M G3, TROPN, LFT3, BMP3M, PHOS3, HEMDF #### [facility] [address] [place] [address] CO2 [Moles/Vol] 25 mmol/L Normal 22-30 [facility] Comment on above: Performed By: #### M G3, TROPN, LFT3, BMP3M, PHOS3, HEMDF #### [facility] [address] [place] [address] Glucose [Mass/Vol] 95 mg/dL Normal 70-100 [facility] Comment on above: Performed By: #### M G3, TROPN, LFT3, BMP3M, PHOS3, HEMDF #### [facility] [address] [place] [address] Urea nitrogen [Mass/Vol] 17 mg/dL Normal 9-20 [facility] Comment on above: Performed By: #### M G3, TROPN, LFT3, BMP3M, PHOS3, HEMDF #### [facility] [address] [place] [address] Creatinine [Mass/Vol] 0.68 mg/dL Normal 0.52-1.25 [facility] Comment on above: Performed By: #### M G3, TROPN, LFT3, BMP3M, PHOS3, HEMDF #### [facility] [address] [place] [address] eGFR OTHER > 90.0 Normal >60 [facility] Comment on above: Result Comment: KDIG [...] G3, TROPN, LFT3, BMP3M, PHOS3, HEMDF #### [facility] [address] [place] [address] GFR/1.73 sq M.predicted among blacks MDRD (S/P/Bld) [Vol rate/Area] mL/min/{1.73_m2} Normal >60 [facility] Comment on above: Performed By: #### M G3, TROPN, LFT3, BMP3M, PHOS3, HEMDF #### [facility] [address] [place] [address] Chloride [Moles/Vol] 106 mmol/L Normal 98-107 [facility] Comment on above: Performed By: #### M G3, TROPN, LFT3, BMP3M, PHOS3, HEMDF #### [facility] [address] [place] [address] Potassium [Moles/Vol] 3.6 mmol/L Normal 3.5-5.1 [facility] Comment on above: Performed By: #### M G3, TROPN, LFT3, BMP3M, PHOS3, HEMDF #### [facility] [address] [place] [address] Sodium [Moles/Vol] 134 mmol/L Low 135-145 [facility] Comment on above: Performed By: #### Jo G3, TROPN, LFT3, BMP3M, PHOS3, HEMDF #### [facility] [address] [place] [address] Fentanyl Screen, Urineon Fentanyl Screen, Urn Positive Normal Negative [facility] Comment on above: Result Comment: Fent anyl [...] G3, TROPN, LFT3, BMP3M, PHOS3, HEMDF #### [facility] [address] [place] [address] Hemogram w/ Autodiffon 10-26 Abs Baso Cnt 0.1 10*3/uL Normal 0.0-0.2 [facility] Comment on above: Performed By: #### M G3, TROPN, LFT3, BMP3M, PHOS3, HEMDF #### [facility] [address] [place] [address] Abs Neutrophile Cnt 5.1 10*3/uL Normal 1.8-7.0 [facility] Comment on above: Performed By: #### M G3, TROPN, LFT3, BMP3M, PHOS3, HEMDF #### [facility] [address] [place] [address] Basophils/100 WBC (Bld) 0.6 % Normal 0.0-2.0 [facility] Comment on above: Performed By: #### M G3, TROPN, LFT3, BMP3M, PHOS3, HEMDF #### [facility] [address] [place] [address] Eosinophils (Bld) [#/Vol] 0.0 10*3/uL Normal 0.0-0.5 [facility] Comment on above: Performed By: #### M G3, TROPN, LFT3, BMP3M, PHOS3, HEMDF #### [facility] [address] [place] [address] Eosinophils/100 WBC (Bld) 0.2 % Low 1.0-6.0 [facility] Comment on above: Performed By: #### M G3, TROPN, LFT3, BMP3M, PHOS3, HEMDF #### [facility] [address] [place] [address] Erythrocyte distribution width (RBC) [Ratio] 13.7 % Normal 11.5-14.5 [facility] Comment on above: Performed By: #### M G3, TROPN, LFT3, BMP3M, PHOS3, HEMDF #### [facility] [address] [place] [address] Granulocytes/100 WBC (Bld) 64.2 % Normal 40.0-80.0 [facility] Comment on above: Performed By: #### M G3, TROPN, LFT3, BMP3M, PHOS3, HEMDF #### [facility] [address] [place] [address] Hematocrit (Bld) [Volume fraction] 32.2 % Low 35.0-47.0 [facility] Comment on above: Performed By: #### M G3, TROPN, LFT3, BMP3M, PHOS3, HEMDF #### [facility] [address] [place] [address] Hemoglobin (Bld) [Mass/Vol] 10.8 g/dL Low 11.7-16.0 [facility] Comment on above: Performed By: #### M G3, TROPN, LFT3, BMP3M, PHOS3, HEMDF #### [facility] [address] [place] [address] Lymphocytes (Bld) [#/Vol] 2.3 10*3/uL Normal 1.0-4.3 [facility] Comment on above: Performed By: #### M G3, TROPN, LFT3, BMP3M, PHOS3, HEMDF #### [facility] [address] [place] [address] Lymphocytes/100 WBC (Bld) 28.8 % Normal 20.0-40.0 [facility] Comment on above: Performed By: #### M G3, TROPN, LFT3, BMP3M, PHOS3, HEMDF #### [facility] [address] [place] [address] MCH (RBC) [Entitic mass] 31.0 pg Normal 26.0-34.0 [facility] Comment on above: Performed By: #### M G3, TROPN, LFT3, BMP3M, PHOS3, HEMDF #### [facility] [address] [place] [address] MCHC 33.4 % Normal 32.0-36.0 [facility] Comment on above: Performed By: #### M G3, TROPN, LFT3, BMP3M, PHOS3, HEMDF #### [facility] [address] [place] [address] MCV (RBC) [Entitic vol] 92.7 fL Normal 79.0-98.0 [facility] Comment on above: Performed By: #### M G3, TROPN, LFT3, BMP3M, PHOS3, HEMDF #### [facility] [address] [place] [address] Monocytes (Bld) [#/Vol] 0.5 10*3/uL Normal 0.0-0.8 [facility] Comment on above: Performed By: #### M G3, TROPN, LFT3, BMP3M, PHOS3, HEMDF #### [facility] [address] [place] [address] Monocytes/100 WBC (Bld) 6.2 % Normal 2.0-10.0 [facility] Comment on above: Performed By: #### M G3, TROPN, LFT3, BMP3M, PHOS3, HEMDF #### [facility] [address] [place] [address] Platelet mean volume (Bld) [Entitic vol] 7.9 fL Normal 7.4-10.4 [facility] Comment on above: Performed By: #### M G3, TROPN, LFT3, BMP3M, PHOS3, HEMDF #### [facility] [address] [place] [address] Platelets (Bld) [#/Vol] 222 10*3/uL Normal 140-440 [facility] Comment on above: Performed By: #### M G3, TROPN, LFT3, BMP3M, PHOS3, HEMDF #### [facility] [address] [place] [address] RBC (Bld) [#/Vol] 3.47 10*6/uL Low 3.80-5.20 [facility] Comment on above: Performed By: #### M G3, TROPN, LFT3, BMP3M, PHOS3, HEMDF #### [facility] [address] [place] [address] WBC (Bld) [#/Vol] 8.0 10*3/uL Normal 3.6-10.7 [facility] Comment on above: Performed By: #### M G3, TROPN, LFT3, BMP3M, PHOS3, HEMDF #### [facility] [address] [place] [address] Hepatic Functionon 2 ALP [Catalytic activity/Vol] 143 U/L High 38-126 [facility] Comment on above: Performed By: #### M G3, TROPN, LFT3, BMP3M, PHOS3, HEMDF #### [facility] [address] [place] [address] ALT [Catalytic activity/Vol] 29 U/L Normal 0-34 [facility] Comment on above: Result Comment: The ALT test is performed by an updated assay method. Please note that the reference intervals have been changed and are now sex specific. Performed By: #### M G3, TROPN, LFT3, BMP3M, PHOS3, HEMDF #### [facility] [address] [place] [address] AST [Catalytic activity/Vol] 44 U/L Normal 15-46 [facility] Comment on above: Performed By: #### M G3, TROPN, LFT3, BMP3M, PHOS3, HEMDF #### [facility] [address] [place] [address] Bilirubin [Mass/Vol] 0.3 mg/dL Normal 0.2-1.3 [facility] Comment on above: Performed By: #### M G3, TROPN, LFT3, BMP3M, PHOS3, HEMDF #### [facility] [address] [place] [address] Bilirubin.indirect [Mass/Vol] 0.0 mg/dL Normal 0.0-0.3 [facility] Comment on above: Performed By: #### M G3, TROPN, LFT3, BMP3M, PHOS3, HEMDF #### [facility] [address] [place] [address] Protein [Mass/Vol] 6.2 g/dL Low 6.3-8.2 [facility] Comment on above: Performed By: #### M G3, TROPN, LFT3, BMP3M, PHOS3, HEMDF #### [facility] [address] [place] [address] Albumin [Mass/Vol] 3.2 g/dL Low 3.5-5.0 [facility] Comment on above: Performed By: #### M G3, TROPN, LFT3, BMP3M, PHOS3, HEMDF #### [facility] [address] [place] [address] Lactic Acidon 10-26-2021 Lactate [Moles/Vol] 0.7 mmol/L Normal 0.7-2.0 [facility] Comment on above: Performed By: #### M G3, TROPN, LFT3, BMP3M, PHOS3, HEMDF #### [facility] [address] [place] [address] Magnesiumon 10-26-2021 Magnesium [Mass/Vol] 1.9 mg/dL Normal 1.6-2.3 [facility] Comment on above: Performed By: #### M G3, TROPN, LFT3, BMP3M, PHOS3, HEMDF #### [facility] [address] [place] [address] Phosphoruson 10-26-2021 Phosphate [Mass/Vol] 3.2 mg/dL Normal 2.5-4.5 [facility] Comment on above: Performed By: #### M G3, TROPN, LFT3, BMP3M, PHOS3, HEMDF #### [facility] [address] [place] [address] Troponin Ion 10-26-2021 Troponin I.cardiac [Mass/Vol] 0.314 ng/mL High 0.000-0.034 [facility] Comment on above: Result Comment: . Performed By: #### M G3, TROPN, LFT3, BMP3M, PHOS3, HEMDF #### [facility] [address] [place] [address] Troponin I.cardiac [Mass/Vol] 0.392 ng/mL High 0.000-0.034 [facility] Comment on above: Result Comment: . Performed By: #### M G3, TROPN, LFT3, BMP3M, PHOS3, HEMDF #### [facility] [address] [place] [address] CR Chest Portableon 10-25-19 22 CR Chest Portable Patient Name: KATARZYNA VARGAS Diagnostic Radiology ACCESSION EXAM DATE/TIME PROCEDURE ORDERING PROVIDER [id number] 10/25/2021 16:45 EST CR Chest Portable MD MATUTE JESSE CPT code 18713 Reason For Exam (CR Chest Portable) Short [...] Transcribed Date and Time: 10/25/2021 5:11 Normal [facility] CT Head or Brain w/o Contras ton 10-25-2021 CT Head or Brain w/o Contrast Patient Name: KATARZYNA VARGAS Computed Tomography ACCESSION EXAM DATE/TIME PROCEDURE ORDERING PROVIDER [id number] 10/25/2021 17:[address] Head or Brain w/o MD GIOVANI, AYAH Contrast CPT code 61947 Reason For Exam (CT Head or Brain [...] Time: 10/25/2021 5:21 pm Signed by: MD FARRLEL WENDELL Transcribed Date and Time: 10/25/2021 5:22 Normal [facility] Comp Metabolic Panelon 10-25 ALT [Catalytic activity/Vol] 40 U/L High 0-34 [facility] Comment on above: Result Comment: The ALT test is performed by an updated assay method. Please note that the reference intervals have been changed and are now sex specific. Performed By: #### M G3, TROPN, LFT3, BMP3M, PHOS3, HEMDF #### [facility] [address] [place] [address] ALP [Catalytic activity/Vol] 169 U/L High 38-126 [facility] Comment on above: Performed By: #### M G3, TROPN, LFT3, BMP3M, PHOS3, HEMDF #### [facility] [address] [place] [address] AST [Catalytic activity/Vol] 66 U/L High 15-46 [facility] Comment on above: Performed By: #### M G3, TROPN, LFT3, BMP3M, PHOS3, HEMDF #### [facility] [address] [place] [address] Calcium [Mass/Vol] 8.9 mg/dL Normal 8.4-10.4 [facility] Comment on above: Performed By: #### M G3, TROPN, LFT3, BMP3M, PHOS3, HEMDF #### [facility] [address] [place] [address] Glucose [Mass/Vol] 243 mg/dL High 70-100 [facility] Comment on above: Performed By: #### M G3, TROPN, LFT3, BMP3M, PHOS3, HEMDF #### [facility] [address] [place] [address] Protein [Mass/Vol] 7.3 g/dL Normal 6.3-8.2 [facility] Comment on above: Performed By: #### M G3, TROPN, LFT3, BMP3M, PHOS3, HEMDF #### [facility] [address] [place] [address] Urea nitrogen [Mass/Vol] 20 mg/dL Normal 9-20 [facility] Comment on above: Performed By: #### M G3, TROPN, LFT3, BMP3M, PHOS3, HEMDF #### [facility] [address] [place] [address] Anion gap [Moles/Vol] 11 mmol/L Normal 3-13 [facility] Comment on above: Performed By: #### M G3, TROPN, LFT3, BMP3M, PHOS3, HEMDF #### [facility] [address] [place] [address] Bilirubin [Mass/Vol] 0.3 mg/dL Normal 0.2-1.3 [facility] Comment on above: Performed By: #### M G3, TROPN, LFT3, BMP3M, PHOS3, HEMDF #### [facility] [address] [place] [address] CO2 [Moles/Vol] 20 mmol/L Low 22-30 [facility] Comment on above: Performed By: #### M G3, TROPN, LFT3, BMP3M, PHOS3, HEMDF #### [facility] [address] [place] [address] Creatinine [Mass/Vol] 0.79 mg/dL Normal 0.52-1.25 [facility] Comment on above: Performed By: #### M G3, TROPN, LFT3, BMP3M, PHOS3, HEMDF #### [facility] [address] [place] [address] GFR/1.73 sq M.predicted among blacks MDRD (S/P/Bld) [Vol rate/Area] mL/min/{1.73_m2} Normal >60 [facility] Comment on above: Performed By: #### M G3, TROPN, LFT3, BMP3M, PHOS3, HEMDF #### [facility] [address] [place] [address] GFR/1.73 sq M.predicted among non-blacks MDRD (S/P/Bld) [Vol rate/Area] 90.0 mL/min/{1.73_m2} Normal >60 [facility] Comment on above: Result Comment: KDIG O [...] G3, TROPN, LFT3, BMP3M, PHOS3, HEMDF #### [facility] [address] [place] [address] Albumin [Mass/Vol] 3.8 g/dL Normal 3.5-5.0 [facility] Comment on above: Performed By: #### M G3, TROPN, LFT3, BMP3M, PHOS3, HEMDF #### [facility] [address] [place] [address] Chloride [Moles/Vol] 104 mmol/L Normal 98-107 [facility] Comment on above: Performed By: #### M G3, TROPN, LFT3, BMP3M, PHOS3, HEMDF #### [facility] [address] [place] [address] Potassium [Moles/Vol] 3.6 mmol/L Normal 3.5-5.1 [facility] Comment on above: Performed By: #### M G3, TROPN, LFT3, BMP3M, PHOS3, HEMDF #### [facility] [address] [place] [address] Sodium [Moles/Vol] 136 mmol/L Normal 135-145 [facility] Comment on above: Performed By: #### M G3, TROPN, LFT3, BMP3M, PHOS3, HEMDF #### [facility] [address] [place] [address] Complete Urinalysison 2021 Bacteria Moderate (6-50) Abnormal Negative [facility] Comment on above: Result Comment: . Performed By: #### M G3, TROPN, LFT3, BMP3M, PHOS3, HEMDF #### [facility] [address] [place] [address] Mucous Threads Few Normal Negative [facility] Comment on above: Result Comment: . Performed By: #### M G3, TROPN, LFT3, BMP3M, PHOS3, HEMDF #### [facility] [address] [place] [address] RBC, Urine 3 - 5 Abnormal 0-2 [facility] Comment on above: Result Comment: . Performed By: #### M G3, TROPN, LFT3, BMP3M, PHOS3, HEMDF #### [facility] [address] [place] [address] Squamous Epithelial 0 - 2 Normal 3-5 [facility] Comment on above: Result Comment: . Performed By: #### M G3, TROPN, LFT3, BMP3M, PHOS3, HEMDF #### [facility] [address] [place] [address] VOLUME, URINE 8-12 ml Normal [facility] Comment on above: Result Comment: . Performed By: #### M G3, TROPN, LFT3, BMP3M, PHOS3, HEMDF #### [facility] [address] [place] [address] WBC, Urine 11 - 25 Abnormal 0-5 [facility] Comment on above: Result Comment: . Performed By: #### M G3, TROPN, LFT3, BMP3M, PHOS3, HEMDF #### [facility] [address] [place] [address] Appearance (U) Turbid Abnormal Clear [facility] Comment on above: Result Comment: . Performed By: #### M G3, TROPN, LFT3, BMP3M, PHOS3, HEMDF #### [facility] [address] [place] [address] Bilirubin,Urine Negative Normal Negative [facility] Comment on above: Result Comment: . Performed By: #### M G3, TROPN, LFT3, BMP3M, PHOS3, HEMDF #### [facility] [address] [place] [address] Color (U) YELLOW Normal Lt. Yellow [facility] Comment on above: Result Comment: . Performed By: #### M G3, TROPN, LFT3, BMP3M, PHOS3, HEMDF #### [facility] [address] [place] [address] Glucose Ql (U) Normal Normal Normal (<70) [facility] Comment on above: Result Comment: . Performed By: #### M G3, TROPN, LFT3, BMP3M, PHOS3, HEMDF #### [facility] [address] [place] [address] Ketone,Urine Negative Normal Negative [facility] Comment on above: Result Comment: . Performed By: #### M G3, TROPN, LFT3, BMP3M, PHOS3, HEMDF #### [facility] [address] [place] [address] Leukocytes,Urine 500 Natali/uL Abnormal Negative [facility] Comment on above: Result Comment: . Performed By: #### M G3, TROPN, LFT3, BMP3M, PHOS3, HEMDF #### [facility] [address] [place] [address] Nitrites,Urine Positive Abnormal Negative [facility] Comment on above: Result Comment: . Performed By: #### M G3, TROPN, LFT3, BMP3M, PHOS3, HEMDF #### [facility] [address] [place] [address] Occult Blood,Urine Negative Normal Negative [facility] Comment on above: Result Comment: . Performed By: #### M G3, TROPN, LFT3, BMP3M, PHOS3, HEMDF #### [facility] [address] [place] [address] pH,Urine 5.5 Normal 5.0-8.0 [facility] Comment on above: Result Comment: . Performed By: #### M G3, TROPN, LFT3, BMP3M, PHOS3, HEMDF #### [facility] [address] [place] [address] Protein (U) [Mass/Vol] 50 mg/dL Abnormal Negative [facility] Comment on above: Result Comment: . Performed By: #### M G3, TROPN, LFT3, BMP3M, PHOS3, HEMDF #### [facility] [address] [place] [address] Specific [place],Urine 1.016 Normal 1.005 - 1.030 [facility] Comment on above: Result Comment: . Performed By: #### M G3, TROPN, LFT3, BMP3M, PHOS3, HEMDF #### [facility] [address] [place] [address] Urobilinogen,Urine Normal Normal Normal (0-1) [facility] Comment on above: Result Comment: . Performed By: #### M G3, TROPN, LFT3, BMP3M, PHOS3, HEMDF #### [facility] [address] [place] [address] Drugs of Abuseon 10-25-2021 Phencyclidine (PCP), Ur Negative Normal [facility] Comment on above: Result Comment: The expected [...] G3, TROPN, LFT3, BMP3M, PHOS3, HEMDF #### [facility] [address] [place] [address] Opiates, Ur Positive Normal [facility] Comment on above: Performed By: #### M G3, TROPN, LFT3, BMP3M, PHOS3, HEMDF #### [facility] [address] [place] [address] Cocaine, Ur Negative Normal [facility] Comment on above: Performed By: #### M G3, TROPN, LFT3, BMP3M, PHOS3, HEMDF #### [facility] [address] [place] [address] Methadone, Ur Negative Normal [facility] Comment on above: Performed By: #### M G3, TROPN, LFT3, BMP3M, PHOS3, HEMDF #### [facility] [address] [place] [address] Barbiturates, Ur Negative Normal [facility] Comment on above: Performed By: #### M G3, TROPN, LFT3, BMP3M, PHOS3, HEMDF #### [facility] [address] [place] [address] Benzodiazepines, Ur Positive Normal [facility] Comment on above: Performed By: #### M G3, TROPN, LFT3, BMP3M, PHOS3, HEMDF #### [facility] [address] [place] [address] Amphetamines, Ur Negative Normal [facility] Comment on above: Performed By: #### M G3, TROPN, LFT3, BMP3M, PHOS3, HEMDF #### [facility] [address] [place] [address] Oxycodone/Oxymorphine ,Ur Negative Normal [facility] Comment on above: Performed By: #### M G3, TROPN, LFT3, BMP3M, PHOS3, HEMDF #### [facility] [address] [place] [address] Ethanol Serum/Plasmaon 10-25 Ethanol-Serum/Plasma < 0.010 Normal 0.000-0.010 [facility] Comment on above: Result Comment: NOTE : This result is for medical treatment only. Analysis performed using non-forensic procedures. Performed By: #### M G3, TROPN, LFT3, BMP3M, PHOS3, HEMDF #### [facility] [address] [place] [address] Hemogram w/ Autodiffon 10-25 Platelets (Bld) [#/Vol] 337 10*3/uL Normal 140-440 [facility] Comment on above: Result Comment: Occa sional large platelets Performed By: #### M G3, TROPN, LFT3, BMP3M, PHOS3, HEMDF #### [facility] [address] [place] [address] Erythrocyte distribution width (RBC) [Ratio] 14.0 % Normal 11.5-14.5 [facility] Comment on above: Performed By: #### M G3, TROPN, LFT3, BMP3M, PHOS3, HEMDF #### [facility] [address] [place] [address] Hematocrit (Bld) [Volume fraction] 41.1 % Normal 35.0-47.0 [facility] Comment on above: Performed By: #### M G3, TROPN, LFT3, BMP3M, PHOS3, HEMDF #### [facility] [address] [place] [address] Hemoglobin (Bld) [Mass/Vol] 13.6 g/dL Normal 11.7-16.0 [facility] Comment on above: Performed By: #### M G3, TROPN, LFT3, BMP3M, PHOS3, HEMDF #### [facility] [address] [place] [address] MCH (RBC) [Entitic mass] 30.8 pg Normal 26.0-34.0 [facility] Comment on above: Performed By: #### M G3, TROPN, LFT3, BMP3M, PHOS3, HEMDF #### [facility] [address] [place] [address] MCHC 33.2 % Normal 32.0-36.0 [facility] Comment on above: Performed By: #### M G3, TROPN, LFT3, BMP3M, PHOS3, HEMDF #### [facility] [address] [place] [address] MCV (RBC) [Entitic vol] 92.8 fL Normal 79.0-98.0 [facility] Comment on above: Performed By: #### M G3, TROPN, LFT3, BMP3M, PHOS3, HEMDF #### [facility] [address] [place] [address] Platelet mean volume (Bld) [Entitic vol] 8.2 fL Normal 7.4-10.4 [facility] Comment on above: Performed By: #### M G3, TROPN, LFT3, BMP3M, PHOS3, HEMDF #### [facility] [address] [place] [address] RBC (Bld) [#/Vol] 4.43 10*6/uL Normal 3.80-5.20 [facility] Comment on above: Performed By: #### M G3, TROPN, LFT3, BMP3M, PHOS3, HEMDF #### [facility] [address] [place] [address] WBC (Bld) [#/Vol] 10.6 10*3/uL Normal 3.6-10.7 [facility] Comment on above: Performed By: #### M G3, TROPN, LFT3, BMP3M, PHOS3, HEMDF #### [facility] [address] [place] [address] Lactic Acidon 10-25-2021 Lactate [Moles/Vol] 3.6 mmol/L Critically high 0.7-2.0 [facility] Comment on above: Performed By: #### M G3, TROPN, LFT3, BMP3M, PHOS3, HEMDF #### [facility] [address] [place] [address] Lactate [Moles/Vol] 7.1 mmol/L Critically high 0.7-2.0 [facility] Comment on above: Performed By: #### M G3, TROPN, LFT3, BMP3M, PHOS3, HEMDF #### [facility] [address] [place] [address] Manual Diffon 10-25-2021 Abs Baso Cnt 0.0 10*3/uL Normal 0.0-0.2 [facility] Comment on above: Performed By: #### M G3, TROPN, LFT3, BMP3M, PHOS3, HEMDF #### [facility] [address] [place] [address] Abs Eosin Cnt 0.0 10*3/uL Normal 0.0-0.5 [facility] Comment on above: Performed By: #### M G3, TROPN, LFT3, BMP3M, PHOS3, HEMDF #### [facility] [address] [place] [address] Abs Lymph Cnt 1.6 10*3/uL Normal 1.1-4.5 [facility] Comment on above: Performed By: #### M G3, TROPN, LFT3, BMP3M, PHOS3, HEMDF #### [facility] [address] [place] [address] Abs Monocyte Cnt 0.5 10*3/uL Normal 0.2-1.1 [facility] Comment on above: Performed By: #### M G3, TROPN, LFT3, BMP3M, PHOS3, HEMDF #### [facility] [address] [place] [address] Abs Neutrophile Cnt 8.5 10*3/uL High 2.2-8.2 [facility] Comment on above: Performed By: #### M G3, TROPN, LFT3, BMP3M, PHOS3, HEMDF #### [facility] [address] [place] [address] Bands 2 % Normal 0-3 [facility] Comment on above: Performed By: #### M G3, TROPN, LFT3, BMP3M, PHOS3, HEMDF #### [facility] [address] [place] [address] Basophils 0 % Normal 0-2 [facility] Comment on above: Performed By: #### M G3, TROPN, LFT3, BMP3M, PHOS3, HEMDF #### [facility] [address] [place] [address] Cells counted 100 Normal [facility] Comment on above: Performed By: #### M G3, TROPN, LFT3, BMP3M, PHOS3, HEMDF #### [facility] [address] [place] [address] Eosinophils 0 % Low 1-6 [facility] Comment on above: Performed By: #### M G3, TROPN, LFT3, BMP3M, PHOS3, HEMDF #### [facility] [address] [place] [address] Lymphocytes 15 % Low 20-40 [facility] Comment on above: Performed By: #### M G3, TROPN, LFT3, BMP3M, PHOS3, HEMDF #### [facility] [address] [place] [address] Monocytes 5 % Normal 2-10 [facility] Comment on above: Performed By: #### M G3, TROPN, LFT3, BMP3M, PHOS3, HEMDF #### [facility] [address] [place] [address] RBC Morphology Normal Normal [facility] Comment on above: Performed By: #### M G3, TROPN, LFT3, BMP3M, PHOS3, HEMDF #### [facility] [address] [place] [address] Seg Neutrophils 78 % Normal 40-80 [facility] Comment on above: Performed By: #### M G3, TROPN, LFT3, BMP3M, PHOS3, HEMDF #### [facility] [address] [place] [address] THC, Urineon 10-25-2021 THC, Ur Negative Normal [facility] Comment on above: Result Comment: Thre shold= 50 ng/mL Performed By: #### M G3, TROPN, LFT3, BMP3M, PHOS3, HEMDF #### [facility] [address] [place] [address] Troponin Ion 10-25-2021 Troponin I.cardiac [Mass/Vol] 0.464 ng/mL High 0.000-0.034 [facility] Comment on above: Result Comment: . Performed By: #### M G3, TROPN, LFT3, BMP3M, PHOS3, HEMDF #### [facility] [address] [place] [address] Troponin I.cardiac [Mass/Vol] 0.392 ng/mL High 0.000-0.034 [facility] Comment on above: Result Comment: . Performed By: #### M G3, TROPN, LFT3, BMP3M, PHOS3, HEMDF #### [facility] [address] [place] [address] Venous Blood Gas Respiratory on 10-25-2021 Base Excess -5.3 mmol/L Low -3.0-3.0 [facility] Comment on above: Performed By: #### M G3, TROPN, LFT3, BMP3M, PHOS3, HEMDF #### [facility] [address] [place] [address] CO2 [Moles/Vol] 24.9 mmol/L Normal 24.0-28.0 [facility] Comment on above: Result Comment: Perf ormed by CLIA ID: [id number] [place] Performed By: #### M G3, TROPN, LFT3, BMP3M, PHOS3, HEMDF #### [facility] [address] [place] [address] HCO3 (Bld) [Moles/Vol] 23.2 mmol/L Normal 23.0-27.0 [facility] Comment on above: Performed By: #### M G3, TROPN, LFT3, BMP3M, PHOS3, HEMDF #### [facility] [address] [place] [address] Oxygen (Bld) [Partial pressure] 116.2 mm[Hg] High 30.0-50.0 [facility] Comment on above: Performed By: #### M G3, TROPN, LFT3, BMP3M, PHOS3, HEMDF #### [facility] [address] [place] [address] Oxygen saturation in Blood 97.5 % High 60.0-80.0 [facility] Comment on above: Performed By: #### M G3, TROPN, LFT3, BMP3M, PHOS3, HEMDF #### [facility] [address] [place] [address] pCO2 56.2 mm[Hg] High 40.0-55.0 [facility] Comment on above: Performed By: #### M G3, TROPN, LFT3, BMP3M, PHOS3, HEMDF #### [facility] [address] [place] [address] pH 7.223 Low 7.330-7.430 [facility] Comment on above: Performed By: #### M G3, TROPN, LFT3, BMP3M, PHOS3, HEMDF #### [facility] [address] [place] [address] ED Provider Noteon ED Provider Note Emergency Department Encounter [facility] EM[facility]GENCY [facility]PT Patient: Katarzyna Vargas [...] patient come from an ECF, SNF, Rehab, Intermediate or other Congregate setting: no (If yes to above patient needs a Covid-19 test) In brief, Katarzyna Vargas is a 46 y.o. female that presents to the emergency department complaining of needing a suprapubic catheter placed. Patient is a paraplegic, was sent from [facility] and came in by EMS, she thinks [...] for clarification. Leander Calixto MD [employer] Leander Calixto MD 10/20/21 1312 Normal [facility] Comp Metabolic Panelon 10-11 Calcium [Mass/Vol] 9.0 mg/dL Normal 8.4-10.4 [facility] Comment on above: Performed By: #### P T, APTT #### [address] [address] ALP [Catalytic activity/Vol] 90 U/L Normal 38-126 [facility] Comment on above: Performed By: #### P T, APTT #### [address] [address] [place] [address] ALT [Catalytic activity/Vol] 10 U/L Normal 0-34 [facility] Comment on above: Result Comment: The ALT test is performed by an updated assay method. Please note that the reference intervals have been changed and are now sex specific. Performed By: #### P T, APTT #### [facility] [address] [place], [place] Anion gap [Moles/Vol] 8 mmol/L Normal 3-13 [facility] Comment on above: Performed By: #### P T, APTT #### [facility] [address] [place], [place] AST [Catalytic activity/Vol] 20 U/L Normal 15-46 [facility] Comment on above: Performed By: #### P T, APTT #### [facility] [address] [place], [place] Bilirubin [Mass/Vol] 0.5 mg/dL Normal 0.2-1.3 [facility] Comment on above: Performed By: #### P T, APTT #### [facility] [address] [place], [place] CO2 [Moles/Vol] 28 mmol/L Normal 22-30 [facility] Comment on above: Performed By: #### P T, APTT #### [facility] [address] [place], [place] Creatinine [Mass/Vol] 0.65 mg/dL Normal 0.52-1.25 [facility] Comment on above: Performed By: #### P T, APTT #### [facility] [address] [place], [place] eGFR OTHER > 90.0 Normal >60 [facility] Comment on above: Result Comment: KDIG [...] Performed By: #### P T, APTT #### [address] [place], [place] GFR/1.73 sq M.predicted among blacks MDRD (S/P/Bld) [Vol rate/Area] mL/min/{1.73_m2} Normal >60 [facility] Comment on above: Performed By: #### P T, APTT #### [address] [place], [place] Glucose [Mass/Vol] 86 mg/dL Normal 70-100 [facility] Comment on above: Performed By: #### P T, APTT #### [address] [place], [place] Protein [Mass/Vol] 7.5 g/dL Normal 6.3-8.2 [facility] Comment on above: Performed By: #### P T, APTT #### [address] [place], [place] Urea nitrogen [Mass/Vol] 15 mg/dL Normal 9-20 [facility] Comment on above: Performed By: #### P T, APTT #### [address] [place], [place] Potassium [Moles/Vol] 3.7 mmol/L Normal 3.5-5.1 [facility] Comment on above: Performed By: #### P T, APTT #### [address] [address] [place], [place] Albumin [Mass/Vol] 3.7 g/dL Normal 3.5-5.0 [facility] Comment on above: Performed By: #### P T, APTT #### [address] [place], [place] Chloride [Moles/Vol] 104 mmol/L Normal 98-107 [facility] Comment on above: Performed By: #### P T, APTT #### [address] [place], [place] Sodium [Moles/Vol] 140 mmol/L Normal 135-145 [facility] Comment on above: Performed By: #### P T, APTT #### [address] [address] [place], [place] Hemogramon 10-11-2021 Erythrocyte distribution width (RBC) [Ratio] 13.8 % Normal 11.5-14.5 [facility] Comment on above: Performed By: #### P T, APTT #### [address] [place], [place] Hematocrit (Bld) [Volume fraction] 36.8 % Normal 35.0-47.0 [facility] Comment on above: Performed By: #### P T, APTT #### [address] [place], [place] Hemoglobin (Bld) [Mass/Vol] 12.4 g/dL Normal 11.7-16.0 [facility] Comment on above: Performed By: #### P T, APTT #### [address] [place], [place] MCH (RBC) [Entitic mass] 30.9 pg Normal 26.0-34.0 [facility] Comment on above: Performed By: #### P T, APTT #### [address] [address] [place], [place] MCHC 33.7 % Normal 32.0-36.0 [facility] Comment on above: Performed By: #### P T, APTT #### [address] [place], [place] MCV (RBC) [Entitic vol] 91.6 fL Normal 79.0-98.0 [facility] Comment on above: Performed By: #### P T, APTT #### [address] [place], [place] Platelet mean volume (Bld) [Entitic vol] 8.3 fL Normal 7.4-10.4 [facility] Comment on above: Performed By: #### P T, APTT #### [facility] [address], [place] Platelets (Bld) [#/Vol] 204 10*3/uL Normal 140-440 [facility] Comment on above: Performed By: #### P T, APTT #### [facility] [address] [place], [place] RBC (Bld) [#/Vol] 4.02 10*6/uL Normal 3.80-5.20 [facility] Comment on above: Performed By: #### P T, APTT #### [facility] [address] [place], [place] WBC (Bld) [#/Vol] 4.7 10*3/uL Normal 3.6-10.7 [facility] Comment on above: Performed By: #### P T, APTT #### [facility] [address], [place] CULTURE URINEon 06-23-2021 CULTURE URINE 1 [...] 16 R Amikacin(CHLOE) <= 2 S Normal [facility] Comment on above: Performed By: #### M G3, TROPN, LFT3, BMP3M, PHOS3, HEMDF #### [facility] [address] [place] [address] Complete Urinalysison 2020 Bacteria Many (51-100) Abnormal Negative [facility] Comment on above: Result Comment: . Performed By: #### M G3, TROPN, LFT3, BMP3M, PHOS3, HEMDF #### [facility] [address] [place] [address] RBC, Urine 0 - 2 Normal 0-2 [facility] Comment on above: Result Comment: . Performed By: #### M G3, TROPN, LFT3, BMP3M, PHOS3, HEMDF #### [facility] [address] [place] [address] Squamous Epithelial 0 - 2 Normal 3-5 [facility] Comment on above: Result Comment: . Performed By: #### M G3, TROPN, LFT3, BMP3M, PHOS3, HEMDF #### [facility] [address] [place] [address] VOLUME, URINE 12 ml Normal [facility] Comment on above: Result Comment: . Performed By: #### M G3, TROPN, LFT3, BMP3M, PHOS3, HEMDF #### [facility] [address] [place] [address] WBC, Urine 51 - 100 Abnormal 0-5 [facility] Comment on above: Result Comment: . Performed By: #### M G3, TROPN, LFT3, BMP3M, PHOS3, HEMDF #### [facility] [address] [place] [address] Appearance (U) Turbid Abnormal Clear [facility] Comment on above: Result Comment: . Performed By: #### M G3, TROPN, LFT3, BMP3M, PHOS3, HEMDF #### [facility] [address] [place] [address] Bilirubin,Urine Negative Normal Negative [facility] Comment on above: Result Comment: . Performed By: #### M G3, TROPN, LFT3, BMP3M, PHOS3, HEMDF #### [facility] [address] [place] [address] Color (U) YELLOW Normal Lt. Yellow [facility] Comment on above: Result Comment: . Performed By: #### M G3, TROPN, LFT3, BMP3M, PHOS3, HEMDF #### [facility] [address] [place] [address] Glucose Ql (U) Normal Normal Normal (<70) [facility] Comment on above: Result Comment: . Performed By: #### M G3, TROPN, LFT3, BMP3M, PHOS3, HEMDF #### [facility] [address] [place] [address] Ketone,Urine Negative Normal Negative [facility] Comment on above: Result Comment: . Performed By: #### M G3, TROPN, LFT3, BMP3M, PHOS3, HEMDF #### [facility] [address] [place] [address] Leukocytes,Urine 500 Natali/uL Abnormal Negative [facility] Comment on above: Result Comment: . Performed By: #### M G3, TROPN, LFT3, BMP3M, PHOS3, HEMDF #### [facility] [address] [place] [address] Nitrites,Urine Negative Normal Negative [facility] Comment on above: Result Comment: . Performed By: #### M G3, TROPN, LFT3, BMP3M, PHOS3, HEMDF #### [facility] [address] [place] [address] Occult Blood,Urine 0.03 mg/dL Abnormal Negative [facility] Comment on above: Result Comment: . Performed By: #### M G3, TROPN, LFT3, BMP3M, PHOS3, HEMDF #### [facility] [address] [place] [address] pH,Urine 7.5 Normal 5.0-8.0 [facility] Comment on above: Result Comment: . Performed By: #### M G3, TROPN, LFT3, BMP3M, PHOS3, HEMDF #### [facility] [address] [place] [address] Protein (U) [Mass/Vol] 10 mg/dL Abnormal Negative [facility] Comment on above: Result Comment: . Performed By: #### M G3, TROPN, LFT3, BMP3M, PHOS3, HEMDF #### [facility] [address] [place] [address] Specific [place],Urine 1.013 Normal 1.005 - 1.030 [facility] Comment on above: Result Comment: . Performed By: #### M G3, TROPN, LFT3, BMP3M, PHOS3, HEMDF #### [facility] [address] [place] [address] Urobilinogen,Urine Normal Normal Normal (0-1) [facility] Comment on above: Result Comment: . Performed By: #### M G3, TROPN, LFT3, BMP3M, PHOS3, HEMDF #### [facility] [address] [place] [address] IR TUNNELED PICC REMOVALon 0 03-20-2021 IR [...] Sign Date: 03/20/2021 6:01:11 PM Ordering Provider:Dmitri Hadley Normal [facility] ([place]) RESCVIDon 03-20-2021 Adenovirus Not detected Normal Not Detected [facility] ([place]) Comment on above: Performed By: #### C BC, ADIFF, ANEU, FERR, FOL, MG, TSH, PHOS, B12, FES, PRALB, GFR, CMP #### [place] [address] Bordetella Parapertussis Not detected Normal Not Detected [facility] ([place]) Comment on above: Performed By: #### C BC, ADIFF, ANEU, FERR, FOL, MG, TSH, PHOS, B12, FES, PRALB, GFR, CMP #### [place] [address] Bordetella Pertussis Not detected Normal Not Detected [facility] ([place]) Comment on above: Performed By: #### C BC, ADIFF, ANEU, FERR, FOL, MG, TSH, PHOS, B12, FES, PRALB, GFR, CMP #### [place] [id number] Chlamydophila pneumoniae Not detected Normal Not Detected [facility] ([place]) Comment on above: Performed By: #### C BC, ADIFF, ANEU, FERR, FOL, MG, TSH, PHOS, B12, FES, PRALB, GFR, CMP #### [place] [address] Coronavirus 229E (Not COVID-19) Not detected Normal Not Detected [facility] ([place]) Comment on above: Performed By: #### C BC, ADIFF, ANEU, FERR, FOL, MG, TSH, PHOS, B12, FES, PRALB, GFR, CMP #### [place] [address] Coronavirus HKU1 (Not COVID-19) Not detected Normal Not Detected [facility] ([place]) Comment on above: Performed By: #### C BC, ADIFF, ANEU, FERR, FOL, MG, TSH, PHOS, B12, FES, PRALB, GFR, CMP #### [place] [address] Coronavirus NL63 (Not COVID-19) Not detected Normal Not Detected [facility] ([place]) Comment on above: Performed By: #### C BC, ADIFF, ANEU, FERR, FOL, MG, TSH, PHOS, B12, FES, PRALB, GFR, CMP #### [place] [address] Coronavirus OC43 (Not COVID-19) Not detected Normal Not Detected [facility] ([place]) Comment on above: Performed By: #### C BC, ADIFF, ANEU, FERR, FOL, MG, TSH, PHOS, B12, FES, PRALB, GFR, CMP #### [place] [address] Date of Onset [id number] Invalid Interpretation Code [facility] ([place]) Comment on above: Performed By: #### C BC, ADIFF, ANEU, FERR, FOL, MG, TSH, PHOS, B12, FES, PRALB, GFR, CMP #### [place] [address] Employed in Healthcare No Normal [facility] ([place]) Comment on above: Performed By: #### C BC, ADIFF, ANEU, FERR, FOL, MG, TSH, PHOS, B12, FES, PRALB, GFR, CMP #### [place] [address] First Test No Normal [facility] ([place]) Comment on above: Performed By: #### C BC, ADIFF, ANEU, FERR, FOL, MG, TSH, PHOS, B12, FES, PRALB, GFR, CMP #### [place] [address] Hospitalized Yes Normal [facility] ([place]) Comment on above: Performed By: #### C BC, ADIFF, ANEU, FERR, FOL, MG, TSH, PHOS, B12, FES, PRALB, GFR, CMP #### [place] [address] Human Metapneumovirus Not detected Normal Not Detected [facility] ([place]) Comment on above: Performed By: #### C BC, ADIFF, ANEU, FERR, FOL, MG, TSH, PHOS, B12, FES, PRALB, GFR, CMP #### [place] [address] ICU No Normal [facility] ([place]) Comment on above: Performed By: #### C BC, ADIFF, ANEU, FERR, FOL, MG, TSH, PHOS, B12, FES, PRALB, GFR, CMP #### [place] [address] Influenza A Not detected Normal Not Detected [facility] ([place]) Comment on above: Performed By: #### C BC, ADIFF, ANEU, FERR, FOL, MG, TSH, PHOS, B12, FES, PRALB, GFR, CMP #### [place] [address] Influenza B Not detected Normal Not Detected [facility] ([place]) Comment on above: Performed By: #### C BC, ADIFF, ANEU, FERR, FOL, MG, TSH, PHOS, B12, FES, PRALB, GFR, CMP #### [place] [address] Mycoplasma pneumoniae Not detected Normal Not Detected [facility] ([place]) Comment on above: Performed By: #### C BC, ADIFF, ANEU, FERR, FOL, MG, TSH, PHOS, B12, FES, PRALB, GFR, CMP #### [place] [address] Parainfluenza 1 Not detected Normal Not Detected [facility] ([place]) Comment on above: Performed By: #### C BC, ADIFF, ANEU, FERR, FOL, MG, TSH, PHOS, B12, FES, PRALB, GFR, CMP #### [place] [address] Parainfluenza 2 Not detected Normal Not Detected [facility] ([place]) Comment on above: Performed By: #### C BC, ADIFF, ANEU, FERR, FOL, MG, TSH, PHOS, B12, FES, PRALB, GFR, CMP #### [place] [address] Parainfluenza 3 Not detected Normal Not Detected [facility] ([place]) Comment on above: Performed By: #### C BC, ADIFF, ANEU, FERR, FOL, MG, TSH, PHOS, B12, FES, PRALB, GFR, CMP #### [place] [address] Parainfluenza 4 Not detected Normal Not Detected [facility] ([place]) Comment on above: Performed By: #### C BC, ADIFF, ANEU, FERR, FOL, MG, TSH, PHOS, B12, FES, PRALB, GFR, CMP #### [place] [address] Not Normal [facility] ([place]) Comment on above: Performed By: #### C BC, ADIFF, ANEU, FERR, FOL, MG, TSH, PHOS, B12, FES, PRALB, GFR, CMP #### [place] [address] Resides in Congregate Care Setting No Normal [facility] ([place]) Comment on above: Performed By: #### C BC, ADIFF, ANEU, FERR, FOL, MG, TSH, PHOS, B12, FES, PRALB, GFR, CMP #### [place] [address] Respiratory Syncytial Virus Not detected Normal Not Detected [facility] ([place]) Comment on above: Performed By: #### C BC, ADIFF, ANEU, FERR, FOL, MG, TSH, PHOS, B12, FES, PRALB, GFR, CMP #### [place] [address] Rhinovirus/Enteroviru s Not detected Normal Not Detected [facility] ([place]) Comment on above: Performed By: #### C BC, ADIFF, ANEU, FERR, FOL, MG, TSH, PHOS, B12, FES, PRALB, GFR, CMP #### [address] [address] SARS-CoV-2 (COVID-19) RNA CHACE+probe Ql (Unsp spec) Not detected Normal Not Detected [facility] ([place]) Comment on above: Result Comment: This test is being used under the FDA EUA procedure. This assay has been validated in the [facility] for use with nasopharyngeal specimens in [facility]. If a non-validated specimen or test collection [...] PHOS, B12, FES, PRALB, GFR, CMP #### [address] [address] Symptomatic as Defined by CDC No Normal [facility] ([place]) Comment on above: Performed By: #### C BC, ADIFF, ANEU, FERR, FOL, MG, TSH, PHOS, B12, FES, PRALB, GFR, CMP #### [address] [address] BGon 03-18-2021 Barometric Pressure 737 mmHg Normal [facility] ([place]) Comment on above: Performed By: #### C BC, ADIFF, ANEU, FERR, FOL, MG, TSH, PHOS, B12, FES, PRALB, GFR, CMP #### [address] [address] Base excess Calc (Bld) [Moles/Vol] 7.5 mmol/L Normal [facility] ([place]) Comment on above: Performed By: #### C BC, ADIFF, ANEU, FERR, FOL, MG, TSH, PHOS, B12, FES, PRALB, GFR, CMP #### [address] [address] CO2 [Moles/Vol] 33.5 mmol/L High 22.0-30.0 [facility] ([place]) Comment on above: Performed By: #### C BC, ADIFF, ANEU, FERR, FOL, MG, TSH, PHOS, B12, FES, PRALB, GFR, CMP #### [place] [id number] HCO3 (Bld) [Moles/Vol] 32.2 mmol/L High 21.0-29.0 [facility] ([place]) Comment on above: Performed By: #### C BC, ADIFF, ANEU, FERR, FOL, MG, TSH, PHOS, B12, FES, PRALB, GFR, CMP #### [place] [id number] Oxygen (Bld) [Partial pressure] 93.8 mm[Hg] Normal 74.0-108.0 [facility] ([place]) Comment on above: Performed By: #### C BC, ADIFF, ANEU, FERR, FOL, MG, TSH, PHOS, B12, FES, PRALB, GFR, CMP #### [place] [address] Oxygen saturation in Blood 97.5 % High 92.0-96.0 [facility] ([place]) Comment on above: Performed By: #### C BC, ADIFF, ANEU, FERR, FOL, MG, TSH, PHOS, B12, FES, PRALB, GFR, CMP #### [place] [address] pCO2 44.9 mmHg Normal 32.0-46.0 [facility] ([place]) Comment on above: Performed By: #### C BC, ADIFF, ANEU, FERR, FOL, MG, TSH, PHOS, B12, FES, PRALB, GFR, CMP #### [place] [address] pH (Bld) 7.473 [pH] High 7.380-7.460 [facility] ([place]) Comment on above: Performed By: #### C BC, ADIFF, ANEU, FERR, FOL, MG, TSH, PHOS, B12, FES, PRALB, GFR, CMP #### [address] [address] .Auto Diffon 03-17-2020 Basophil, Absolute 0.00 10 3/mcL Normal 0.00-0.27 [facility] ([place]) Comment on above: Performed By: #### C BC, ADIFF, ANEU, FERR, FOL, MG, TSH, PHOS, B12, FES, PRALB, GFR, CMP #### [place] [address] Basophils/100 WBC (Bld) 1.1 % Normal 0.0-2.5 [facility] ([place]) Comment on above: Performed By: #### C BC, ADIFF, ANEU, FERR, FOL, MG, TSH, PHOS, B12, FES, PRALB, GFR, CMP #### [place] [address] Eosinophil, Absolute 0.20 10 3/mcL Normal 0.00-0.65 [facility] ([place]) Comment on above: Performed By: #### C BC, ADIFF, ANEU, FERR, FOL, MG, TSH, PHOS, B12, FES, PRALB, GFR, CMP #### [address] [address] Eosinophils/100 WBC (Bld) 5.7 % Normal 0.0-6.0 [facility] ([place]) Comment on above: Performed By: #### C BC, ADIFF, ANEU, FERR, FOL, MG, TSH, PHOS, B12, FES, PRALB, GFR, CMP #### [address] [address] Lymphocyte, Absolute 1.80 10 3/mcL Normal 0.90-4.32 [facility] ([place]) Comment on above: Performed By: #### C BC, ADIFF, ANEU, FERR, FOL, MG, TSH, PHOS, B12, FES, PRALB, GFR, CMP #### [address] [address] Lymphocytes/100 WBC (Bld) 41.4 % High 20.0-40.0 [facility] ([place]) Comment on above: Performed By: #### C BC, ADIFF, ANEU, FERR, FOL, MG, TSH, PHOS, B12, FES, PRALB, GFR, CMP #### [address] [address] Monocyte, Absolute 0.40 10 3/mcL Normal 0.09-1.40 [facility] ([place]) Comment on above: Performed By: #### C BC, ADIFF, ANEU, FERR, FOL, MG, TSH, PHOS, B12, FES, PRALB, GFR, CMP #### [address] [address] Monocytes/100 WBC (Bld) 9.4 % Normal 2.0-13.0 [facility] ([place]) Comment on above: Performed By: #### C BC, ADIFF, ANEU, FERR, FOL, MG, TSH, PHOS, B12, FES, PRALB, GFR, CMP #### [address] [address] Neutrophils/100 WBC (Bld) 42.4 % Low 50.0-75.0 [facility] ([place]) Comment on above: Performed By: #### C BC, ADIFF, ANEU, FERR, FOL, MG, TSH, PHOS, B12, FES, PRALB, GFR, CMP #### [address] [address] .GFRon 03-17-2021 GFR >60 Normal [facility] ([place]) Comment on above: Result Comment: GFR Population [...] PHOS, B12, FES, PRALB, GFR, CMP #### [address] [address] GFR Non- >60 Normal [facility] ([place]) Comment on above: Result Comment: GFR Population [...] PHOS, B12, FES, PRALB, GFR, CMP #### [address] [address] .NEUABSon 03-17-2021 Neutrophil, Absolute 1.80 10 3/mcL Low 2.25-8.10 [facility] ([place]) Comment on above: Performed By: #### C BC, ADIFF, ANEU, FERR, FOL, MG, TSH, PHOS, B12, FES, PRALB, GFR, CMP #### [address] [address] BMPon 03-17-2021 BUN/Creatinine Ratio 15.9 ratio Normal 10.0-22.0 [facility] ([place]) Comment on above: Performed By: #### C BC, ADIFF, ANEU, FERR, FOL, MG, TSH, PHOS, B12, FES, PRALB, GFR, CMP #### [address] [address] Calcium [Mass/Vol] 9.3 mg/dL Normal 8.7-10.4 [facility] ([place]) Comment on above: Result Comment: No te - New Reference Range in effect 20 Performed By: #### C BC, ADIFF, ANEU, FERR, FOL, MG, TSH, PHOS, B12, FES, PRALB, GFR, CMP #### [address] [address] Chloride [Moles/Vol] 103 mmol/L Normal 98-110 [facility] ([place]) Comment on above: Performed By: #### C BC, ADIFF, ANEU, FERR, FOL, MG, TSH, PHOS, B12, FES, PRALB, GFR, CMP #### [address] [address] CO2 [Moles/Vol] 38 mmol/L High 22-32 [facility] ([place]) Comment on above: Performed By: #### C BC, ADIFF, ANEU, FERR, FOL, MG, TSH, PHOS, B12, FES, PRALB, GFR, CMP #### [address] [address] Creatinine [Mass/Vol] 0.63 mg/dL Normal 0.50-1.20 [facility] ([place]) Comment on above: Performed By: #### C BC, ADIFF, ANEU, FERR, FOL, MG, TSH, PHOS, B12, FES, PRALB, GFR, CMP #### [address] [address] Electrolyte Balance 1.0 mEq/L Low 4.0-15.0 [facility] ([place]) Comment on above: Performed By: #### C BC, ADIFF, ANEU, FERR, FOL, MG, TSH, PHOS, B12, FES, PRALB, GFR, CMP #### [place] [id number] Glucose [Mass/Vol] 86 mg/dL Normal 70-110 [facility] ([place]) Comment on above: Performed By: #### C BC, ADIFF, ANEU, FERR, FOL, MG, TSH, PHOS, B12, FES, PRALB, GFR, CMP #### [place] [id number] Potassium [Moles/Vol] 4.2 mmol/L Normal 3.5-5.0 [facility] ([place]) Comment on above: Performed By: #### C BC, ADIFF, ANEU, FERR, FOL, MG, TSH, PHOS, B12, FES, PRALB, GFR, CMP #### [place] [address] Sodium [Moles/Vol] 142 mmol/L Normal 136-145 [facility] ([place]) Comment on above: Performed By: #### C BC, ADIFF, ANEU, FERR, FOL, MG, TSH, PHOS, B12, FES, PRALB, GFR, CMP #### [place] [id number] Urea nitrogen [Mass/Vol] 10.0 mg/dL Normal 8.0-22.0 [facility] ([place]) Comment on above: Performed By: #### C BC, ADIFF, ANEU, FERR, FOL, MG, TSH, PHOS, B12, FES, PRALB, GFR, CMP #### [place] [id number] CBCon 03-17-2021 Erythrocyte distribution width (RBC) [Ratio] 14.5 % Normal 11.5-15.5 [facility] ([place]) Comment on above: Performed By: #### C BC, ADIFF, ANEU, FERR, FOL, MG, TSH, PHOS, B12, FES, PRALB, GFR, CMP #### [place] [address] Hematocrit (Bld) [Volume fraction] 27.4 % Low 34.0-46.0 [facility] ([place]) Comment on above: Performed By: #### C BC, ADIFF, ANEU, FERR, FOL, MG, TSH, PHOS, B12, FES, PRALB, GFR, CMP #### [place] [address] Hgb 9.5 G/dL Low 12.0-16.0 [facility] ([place]) Comment on above: Performed By: #### C BC, ADIFF, ANEU, FERR, FOL, MG, TSH, PHOS, B12, FES, PRALB, GFR, CMP #### [place] [address] MCH (RBC) [Entitic mass] 31.1 pg Normal 27.0-33.0 [facility] ([place]) Comment on above: Performed By: #### C BC, ADIFF, ANEU, FERR, FOL, MG, TSH, PHOS, B12, FES, PRALB, GFR, CMP #### [place] [address] MCHC 34.7 G/dL Normal 32.0-36.0 [facility] ([place]) Comment on above: Performed By: #### C BC, ADIFF, ANEU, FERR, FOL, MG, TSH, PHOS, B12, FES, PRALB, GFR, CMP #### [place] [address] MCV (RBC) [Entitic vol] 89.7 fL Normal 80.0-99.0 [facility] ([place]) Comment on above: Performed By: #### C BC, ADIFF, ANEU, FERR, FOL, MG, TSH, PHOS, B12, FES, PRALB, GFR, CMP #### [address] [address] Platelet 153 10 3/mcL Normal 150-450 [facility] ([place]) Comment on above: Performed By: #### C BC, ADIFF, ANEU, FERR, FOL, MG, TSH, PHOS, B12, FES, PRALB, GFR, CMP #### [place] [address] Platelet mean volume (Bld) [Entitic vol] 7.3 fL Normal 6.6-10.5 [facility] ([place]) Comment on above: Performed By: #### C BC, ADIFF, ANEU, FERR, FOL, MG, TSH, PHOS, B12, FES, PRALB, GFR, CMP #### [address] [address] RBC 3.05 10 6/mcL Low 4.10-5.30 [facility] ([place]) Comment on above: Performed By: #### C BC, ADIFF, ANEU, FERR, FOL, MG, TSH, PHOS, B12, FES, PRALB, GFR, CMP #### [address] [address] WBC 4.30 10 3/mcL Low 4.50-10.80 [facility] ([place]) Comment on above: Performed By: #### C BC, ADIFF, ANEU, FERR, FOL, MG, TSH, PHOS, B12, FES, PRALB, GFR, CMP #### [address] [address] .Auto Diffon 03-15-2020 Basophil, Absolute 0.10 10 3/mcL Normal 0.00-0.27 [facility] ([place]) Comment on above: Performed By: #### C BC, ADIFF, ANEU, FERR, FOL, MG, TSH, PHOS, B12, FES, PRALB, GFR, CMP #### [place] [address] Basophils/100 WBC (Bld) 1.5 % Normal 0.0-2.5 [facility] ([place]) Comment on above: Performed By: #### C BC, ADIFF, ANEU, FERR, FOL, MG, TSH, PHOS, B12, FES, PRALB, GFR, CMP #### [address] [address] Eosinophil, Absolute 0.20 10 3/mcL Normal 0.00-0.65 [facility] ([place]) Comment on above: Performed By: #### C BC, ADIFF, ANEU, FERR, FOL, MG, TSH, PHOS, B12, FES, PRALB, GFR, CMP #### [address] [address] Eosinophils/100 WBC (Bld) 4.4 % Normal 0.0-6.0 [facility] ([place]) Comment on above: Performed By: #### C BC, ADIFF, ANEU, FERR, FOL, MG, TSH, PHOS, B12, FES, PRALB, GFR, CMP #### [address] [address] Lymphocyte, Absolute 1.90 10 3/mcL Normal 0.90-4.32 [facility] ([place]) Comment on above: Performed By: #### C BC, ADIFF, ANEU, FERR, FOL, MG, TSH, PHOS, B12, FES, PRALB, GFR, CMP #### [address] [address] Lymphocytes/100 WBC (Bld) 45.5 % High 20.0-40.0 [facility] ([place]) Comment on above: Performed By: #### C BC, ADIFF, ANEU, FERR, FOL, MG, TSH, PHOS, B12, FES, PRALB, GFR, CMP #### [address] [address] Monocyte, Absolute 0.40 10 3/mcL Normal 0.09-1.40 [facility] ([place]) Comment on above: Performed By: #### C BC, ADIFF, ANEU, FERR, FOL, MG, TSH, PHOS, B12, FES, PRALB, GFR, CMP #### [address] [address] Monocytes/100 WBC (Bld) 9.0 % Normal 2.0-13.0 [facility] ([place]) Comment on above: Performed By: #### C BC, ADIFF, ANEU, FERR, FOL, MG, TSH, PHOS, B12, FES, PRALB, GFR, CMP #### [address] [address] Neutrophils/100 WBC (Bld) 39.6 % Low 50.0-75.0 [facility] ([place]) Comment on above: Performed By: #### C BC, ADIFF, ANEU, FERR, FOL, MG, TSH, PHOS, B12, FES, PRALB, GFR, CMP #### [address] [address] .GFRon 03-15-2021 GFR >60 Normal [facility] ([place]) Comment on above: Result Comment: GFR Population [...] PHOS, B12, FES, PRALB, GFR, CMP #### [address] [address] GFR Non- >60 Normal [facility] ([place]) Comment on above: Result Comment: GFR Population [...] PHOS, B12, FES, PRALB, GFR, CMP #### [address] [address] .NEUABSon 03-15-2021 Neutrophil, Absolute 1.60 10 3/mcL Low 2.25-8.10 [facility] ([place]) Comment on above: Performed By: #### C BC, ADIFF, ANEU, FERR, FOL, MG, TSH, PHOS, B12, FES, PRALB, GFR, CMP #### [address] [address] BMPon 03-15-2021 BUN/Creatinine Ratio 13.6 ratio Normal 10.0-22.0 [facility] ([place]) Comment on above: Performed By: #### C BC, ADIFF, ANEU, FERR, FOL, MG, TSH, PHOS, B12, FES, PRALB, GFR, CMP #### [place] [id number] Calcium [Mass/Vol] 9.6 mg/dL Normal 8.7-10.4 [facility] ([place]) Comment on above: Result Comment: No te - New Reference Range in effect 20 Performed By: #### C BC, ADIFF, ANEU, FERR, FOL, MG, TSH, PHOS, B12, FES, PRALB, GFR, CMP #### [place] [id number] Chloride [Moles/Vol] 103 mmol/L Normal 98-110 [facility] ([place]) Comment on above: Performed By: #### C BC, ADIFF, ANEU, FERR, FOL, MG, TSH, PHOS, B12, FES, PRALB, GFR, CMP #### [address] [address] CO2 [Moles/Vol] 37 mmol/L High 22-32 [facility] ([place]) Comment on above: Performed By: #### C BC, ADIFF, ANEU, FERR, FOL, MG, TSH, PHOS, B12, FES, PRALB, GFR, CMP #### [address] [address] Creatinine [Mass/Vol] 0.59 mg/dL Normal 0.50-1.20 [facility] ([place]) Comment on above: Performed By: #### C BC, ADIFF, ANEU, FERR, FOL, MG, TSH, PHOS, B12, FES, PRALB, GFR, CMP #### [address] [address] Electrolyte Balance 1.0 mEq/L Low 4.0-15.0 [facility] ([place]) Comment on above: Performed By: #### C BC, ADIFF, ANEU, FERR, FOL, MG, TSH, PHOS, B12, FES, PRALB, GFR, CMP #### [address] [address] Glucose [Mass/Vol] 87 mg/dL Normal 70-110 [facility] ([place]) Comment on above: Performed By: #### C BC, ADIFF, ANEU, FERR, FOL, MG, TSH, PHOS, B12, FES, PRALB, GFR, CMP #### [address] [address] Potassium [Moles/Vol] 3.7 mmol/L Normal 3.5-5.0 [facility] ([place]) Comment on above: Performed By: #### C BC, ADIFF, ANEU, FERR, FOL, MG, TSH, PHOS, B12, FES, PRALB, GFR, CMP #### [address] [address] Sodium [Moles/Vol] 141 mmol/L Normal 136-145 [facility] ([place]) Comment on above: Performed By: #### C BC, ADIFF, ANEU, FERR, FOL, MG, TSH, PHOS, B12, FES, PRALB, GFR, CMP #### [place] [id number] Urea nitrogen [Mass/Vol] 8.0 mg/dL Normal 8.0-22.0 [facility] ([place]) Comment on above: Performed By: #### C BC, ADIFF, ANEU, FERR, FOL, MG, TSH, PHOS, B12, FES, PRALB, GFR, CMP #### [place] [id number] CBCon 03-15-2021 Erythrocyte distribution width (RBC) [Ratio] 14.7 % Normal 11.5-15.5 [facility] ([place]) Comment on above: Performed By: #### C BC, ADIFF, ANEU, FERR, FOL, MG, TSH, PHOS, B12, FES, PRALB, GFR, CMP #### [place] [address] Hematocrit (Bld) [Volume fraction] 28.9 % Low 34.0-46.0 [facility] ([place]) Comment on above: Performed By: #### C BC, ADIFF, ANEU, FERR, FOL, MG, TSH, PHOS, B12, FES, PRALB, GFR, CMP #### [place] [address] Hgb 10.2 G/dL Low 12.0-16.0 [facility] ([place]) Comment on above: Performed By: #### C BC, ADIFF, ANEU, FERR, FOL, MG, TSH, PHOS, B12, FES, PRALB, GFR, CMP #### [place] [id number] MCH (RBC) [Entitic mass] 31.4 pg Normal 27.0-33.0 [facility] ([place]) Comment on above: Performed By: #### C BC, ADIFF, ANEU, FERR, FOL, MG, TSH, PHOS, B12, FES, PRALB, GFR, CMP #### [place] [id number] MCHC 35.5 G/dL Normal 32.0-36.0 [facility] ([place]) Comment on above: Performed By: #### C BC, ADIFF, ANEU, FERR, FOL, MG, TSH, PHOS, B12, FES, PRALB, GFR, CMP #### [place] [id number] MCV (RBC) [Entitic vol] 88.5 fL Normal 80.0-99.0 [facility] ([place]) Comment on above: Performed By: #### C BC, ADIFF, ANEU, FERR, FOL, MG, TSH, PHOS, B12, FES, PRALB, GFR, CMP #### [place] [id number] Platelet 152 10 3/mcL Normal 150-450 [facility] ([place]) Comment on above: Performed By: #### C BC, ADIFF, ANEU, FERR, FOL, MG, TSH, PHOS, B12, FES, PRALB, GFR, CMP #### [place] [id number] Platelet mean volume (Bld) [Entitic vol] 7.2 fL Normal 6.6-10.5 [facility] ([place]) Comment on above: Performed By: #### C BC, ADIFF, ANEU, FERR, FOL, MG, TSH, PHOS, B12, FES, PRALB, GFR, CMP #### [place] [id number] RBC 3.26 10 6/mcL Low 4.10-5.30 [facility] ([place]) Comment on above: Performed By: #### C BC, ADIFF, ANEU, FERR, FOL, MG, TSH, PHOS, B12, FES, PRALB, GFR, CMP #### [place] [address] WBC 4.20 10 3/mcL Low 4.50-10.80 [facility] ([place]) Comment on above: Performed By: #### C BC, ADIFF, ANEU, FERR, FOL, MG, TSH, PHOS, B12, FES, PRALB, GFR, CMP #### [place] [address] MRI SPINE CERVICAL W/ + W/O CONTRASTon [...] Date: 03/11/2021 3:49:48 PM Ordering Provider:Jeremie Kim [facility] ([place]) MRI SPINE LUMBAR W/ + W/O CO [...] Sign Date: 03/11/2021 3:31:22 PM Ordering Provider:Jeremie Weiss [facility] ([place]) MRI SPINE THORACIC W/ + W/O CONTRASTon [...] Sign Date: 03/11/2021 1:04:53 PM Ordering Provider:Jeremie Kim [facility] ([place]) .Auto Diffon 03-08-2021 Basophil, Absolute 0.00 10 3/mcL Normal 0.00-0.27 [facility] ([place]) Comment on above: Performed By: #### C BC, ADIFF, ANEU, FERR, FOL, MG, TSH, PHOS, B12, FES, PRALB, GFR, CMP #### [address] [address] Basophils/100 WBC (Bld) 1.2 % Normal 0.0-2.5 [facility] ([place]) Comment on above: Performed By: #### C BC, ADIFF, ANEU, FERR, FOL, MG, TSH, PHOS, B12, FES, PRALB, GFR, CMP #### [address] [address] Eosinophil, Absolute 0.20 10 3/mcL Normal 0.00-0.65 [facility] ([place]) Comment on above: Performed By: #### C BC, ADIFF, ANEU, FERR, FOL, MG, TSH, PHOS, B12, FES, PRALB, GFR, CMP #### [address] [address] Eosinophils/100 WBC (Bld) 5.2 % Normal 0.0-6.0 [facility] ([place]) Comment on above: Performed By: #### C BC, ADIFF, ANEU, FERR, FOL, MG, TSH, PHOS, B12, FES, PRALB, GFR, CMP #### [address] [address] Lymphocyte, Absolute 1.40 10 3/mcL Normal 0.90-4.32 [facility] ([place]) Comment on above: Performed By: #### C BC, ADIFF, ANEU, FERR, FOL, MG, TSH, PHOS, B12, FES, PRALB, GFR, CMP #### [address] [address] Lymphocytes/100 WBC (Bld) 44.7 % High 20.0-40.0 [facility] ([place]) Comment on above: Performed By: #### C BC, ADIFF, ANEU, FERR, FOL, MG, TSH, PHOS, B12, FES, PRALB, GFR, CMP #### [address] [address] Monocyte, Absolute 0.30 10 3/mcL Normal 0.09-1.40 [facility] ([place]) Comment on above: Performed By: #### C BC, ADIFF, ANEU, FERR, FOL, MG, TSH, PHOS, B12, FES, PRALB, GFR, CMP #### [address] [address] Monocytes/100 WBC (Bld) 8.5 % Normal 2.0-13.0 [facility] ([place]) Comment on above: Performed By: #### C BC, ADIFF, ANEU, FERR, FOL, MG, TSH, PHOS, B12, FES, PRALB, GFR, CMP #### [address] [address] Neutrophils/100 WBC (Bld) 40.4 % Low 50.0-75.0 [facility] ([place]) Comment on above: Performed By: #### C BC, ADIFF, ANEU, FERR, FOL, MG, TSH, PHOS, B12, FES, PRALB, GFR, CMP #### [address] [address] .GFRon 03-08-2021 GFR >60 Normal [facility] ([place]) Comment on above: Result Comment: GFR [...] PHOS, B12, FES, PRALB, GFR, CMP #### [address] [address] GFR Non- >60 Normal [facility] ([place]) Comment on above: Result Comment: GFR Population [...] PHOS, B12, FES, PRALB, GFR, CMP #### [address] [address] .NEUABSon 03-08-2021 Neutrophil, Absolute 1.30 10 3/mcL Low 2.25-8.10 [facility] ([place]) Comment on above: Performed By: #### C BC, ADIFF, ANEU, FERR, FOL, MG, TSH, PHOS, B12, FES, PRALB, GFR, CMP #### [address] [address] BMPon 03-08-2021 BUN/Creatinine Ratio 11.1 ratio Normal 10.0-22.0 [facility] ([place]) Comment on above: Performed By: #### C BC, ADIFF, ANEU, FERR, FOL, MG, TSH, PHOS, B12, FES, PRALB, GFR, CMP #### [address] [address] Calcium [Mass/Vol] 9.2 mg/dL Normal 8.7-10.4 [facility] ([place]) Comment on above: Result Comment: No te - New Reference Range in effect 20 Performed By: #### C BC, ADIFF, ANEU, FERR, FOL, MG, TSH, PHOS, B12, FES, PRALB, GFR, CMP #### [address] [address] Chloride [Moles/Vol] 104 mmol/L Normal 98-110 [facility] ([place]) Comment on above: Performed By: #### C BC, ADIFF, ANEU, FERR, FOL, MG, TSH, PHOS, B12, FES, PRALB, GFR, CMP #### [address] [address] CO2 [Moles/Vol] 33 mmol/L High 22-32 [facility] ([place]) Comment on above: Performed By: #### C BC, ADIFF, ANEU, FERR, FOL, MG, TSH, PHOS, B12, FES, PRALB, GFR, CMP #### [address] [address] Creatinine [Mass/Vol] 0.63 mg/dL Normal 0.50-1.20 [facility] ([place]) Comment on above: Performed By: #### C BC, ADIFF, ANEU, FERR, FOL, MG, TSH, PHOS, B12, FES, PRALB, GFR, CMP #### [address] [address] Electrolyte Balance 3.0 mEq/L Low 4.0-15.0 [facility] ([place]) Comment on above: Performed By: #### C BC, ADIFF, ANEU, FERR, FOL, MG, TSH, PHOS, B12, FES, PRALB, GFR, CMP #### [address] [address] Glucose [Mass/Vol] 86 mg/dL Normal 70-110 [facility] ([place]) Comment on above: Performed By: #### C BC, ADIFF, ANEU, FERR, FOL, MG, TSH, PHOS, B12, FES, PRALB, GFR, CMP #### [place] [address] Potassium [Moles/Vol] 3.7 mmol/L Normal 3.5-5.0 [facility] ([place]) Comment on above: Performed By: #### C BC, ADIFF, ANEU, FERR, FOL, MG, TSH, PHOS, B12, FES, PRALB, GFR, CMP #### [place] [address] Sodium [Moles/Vol] 140 mmol/L Normal 136-145 [facility] ([place]) Comment on above: Performed By: #### C BC, ADIFF, ANEU, FERR, FOL, MG, TSH, PHOS, B12, FES, PRALB, GFR, CMP #### [place] [address] Urea nitrogen [Mass/Vol] 7.0 mg/dL Low 8.0-22.0 [facility] ([place]) Comment on above: Performed By: #### C BC, ADIFF, ANEU, FERR, FOL, MG, TSH, PHOS, B12, FES, PRALB, GFR, CMP #### [address] [address] CBCon 03-08-2021 Erythrocyte distribution width (RBC) [Ratio] 15.1 % Normal 11.5-15.5 [facility] ([place]) Comment on above: Performed By: #### C BC, ADIFF, ANEU, FERR, FOL, MG, TSH, PHOS, B12, FES, PRALB, GFR, CMP #### [place] [address] Hematocrit (Bld) [Volume fraction] 28.1 % Low 34.0-46.0 [facility] ([place]) Comment on above: Performed By: #### C BC, ADIFF, ANEU, FERR, FOL, MG, TSH, PHOS, B12, FES, PRALB, GFR, CMP #### [place] [id number] Hgb 9.5 G/dL Low 12.0-16.0 [facility] ([place]) Comment on above: Performed By: #### C BC, ADIFF, ANEU, FERR, FOL, MG, TSH, PHOS, B12, FES, PRALB, GFR, CMP #### [place] [id number] MCH (RBC) [Entitic mass] 30.2 pg Normal 27.0-33.0 [facility] ([place]) Comment on above: Performed By: #### C BC, ADIFF, ANEU, FERR, FOL, MG, TSH, PHOS, B12, FES, PRALB, GFR, CMP #### [place] [id number] MCHC 33.9 G/dL Normal 32.0-36.0 [facility] ([place]) Comment on above: Performed By: #### C BC, ADIFF, ANEU, FERR, FOL, MG, TSH, PHOS, B12, FES, PRALB, GFR, CMP #### [place] [address] MCV (RBC) [Entitic vol] 89.2 fL Normal 80.0-99.0 [facility] ([place]) Comment on above: Performed By: #### C BC, ADIFF, ANEU, FERR, FOL, MG, TSH, PHOS, B12, FES, PRALB, GFR, CMP #### [place] [address] Platelet 145 10 3/mcL Low 150-450 [facility] ([place]) Comment on above: Performed By: #### C BC, ADIFF, ANEU, FERR, FOL, MG, TSH, PHOS, B12, FES, PRALB, GFR, CMP #### [place] [address] Platelet mean volume (Bld) [Entitic vol] 6.9 fL Normal 6.6-10.5 [facility] ([place]) Comment on above: Performed By: #### C BC, ADIFF, ANEU, FERR, FOL, MG, TSH, PHOS, B12, FES, PRALB, GFR, CMP #### [place] [address] RBC 3.15 10 6/mcL Low 4.10-5.30 [facility] ([place]) Comment on above: Performed By: #### C BC, ADIFF, ANEU, FERR, FOL, MG, TSH, PHOS, B12, FES, PRALB, GFR, CMP #### [place] [address] WBC 3.20 10 3/mcL Low 4.50-10.80 [facility] ([place]) Comment on above: Performed By: #### C BC, ADIFF, ANEU, FERR, FOL, MG, TSH, PHOS, B12, FES, PRALB, GFR, CMP #### [address] 03-08-2021 LDose Vancomycin: (random) See eMAR Normal [facility] ([place]) Comment on above: Performed By: #### C BC, ADIFF, ANEU, FERR, FOL, MG, TSH, PHOS, B12, FES, PRALB, GFR, CMP #### [place] [address] Vancomycin Lvl (random) 21.3 mcg/mL Normal [facility] ([place]) Comment on above: Performed By: #### C BC, ADIFF, ANEU, FERR, FOL, MG, TSH, PHOS, B12, FES, PRALB, GFR, CMP #### [address] 03-07-2021 LDose Vancomycin:(trough) See eMAR Normal [facility] ([place]) Comment on above: Performed By: #### C BC, ADIFF, ANEU, FERR, FOL, MG, TSH, PHOS, B12, FES, PRALB, GFR, CMP #### [place] [address] Vancomycin Tr 27.0 mcg/mL Critically abnormal 5.0-20.0 [facility] ([place]) Comment on above: Performed By: #### C BC, ADIFF, ANEU, FERR, FOL, MG, TSH, PHOS, B12, FES, PRALB, GFR, CMP #### [address] 03-01-2021 LDose Vancomycin:(trough) See eMAR Normal [facility] ([place]) Comment on above: Performed By: #### C BC, ADIFF, ANEU, FERR, FOL, MG, TSH, PHOS, B12, FES, PRALB, GFR, CMP #### [place] [address] Vancomycin Tr 16.3 mcg/mL Normal 5.0-20.0 [facility] ([place]) Comment on above: Performed By: #### C BC, ADIFF, ANEU, FERR, FOL, MG, TSH, PHOS, B12, FES, PRALB, GFR, CMP #### [place] [address] .Auto Diffon 02-27-2021 Basophil, Absolute 0.00 10 3/mcL Normal 0.00-0.27 [facility] ([place]) Comment on above: Performed By: #### C BC, ADIFF, ANEU, FERR, FOL, MG, TSH, PHOS, B12, FES, PRALB, GFR, CMP #### [place] [address] Basophils/100 WBC (Bld) 0.9 % Normal 0.0-2.5 [facility] ([place]) Comment on above: Performed By: #### C BC, ADIFF, ANEU, FERR, FOL, MG, TSH, PHOS, B12, FES, PRALB, GFR, CMP #### [place] [address] Eosinophil, Absolute 0.20 10 3/mcL Normal 0.00-0.65 [facility] ([place]) Comment on above: Performed By: #### C BC, ADIFF, ANEU, FERR, FOL, MG, TSH, PHOS, B12, FES, PRALB, GFR, CMP #### [place] [address] Eosinophils/100 WBC (Bld) 6.8 % High 0.0-6.0 [facility] ([place]) Comment on above: Performed By: #### C BC, ADIFF, ANEU, FERR, FOL, MG, TSH, PHOS, B12, FES, PRALB, GFR, CMP #### [address] [address] Lymphocyte, Absolute 1.20 10 3/mcL Normal 0.90-4.32 [facility] ([place]) Comment on above: Performed By: #### C BC, ADIFF, ANEU, FERR, FOL, MG, TSH, PHOS, B12, FES, PRALB, GFR, CMP #### [address] [address] Lymphocytes/100 WBC (Bld) 37.5 % Normal 20.0-40.0 [facility] ([place]) Comment on above: Performed By: #### C BC, ADIFF, ANEU, FERR, FOL, MG, TSH, PHOS, B12, FES, PRALB, GFR, CMP #### [address] [address] Monocyte, Absolute 0.30 10 3/mcL Normal 0.09-1.40 [facility] ([place]) Comment on above: Performed By: #### C BC, ADIFF, ANEU, FERR, FOL, MG, TSH, PHOS, B12, FES, PRALB, GFR, CMP #### [address] [address] Monocytes/100 WBC (Bld) 8.3 % Normal 2.0-13.0 [facility] ([place]) Comment on above: Performed By: #### C BC, ADIFF, ANEU, FERR, FOL, MG, TSH, PHOS, B12, FES, PRALB, GFR, CMP #### [address] [address] Neutrophils/100 WBC (Bld) 46.5 % Low 50.0-75.0 [facility] ([place]) Comment on above: Performed By: #### C BC, ADIFF, ANEU, FERR, FOL, MG, TSH, PHOS, B12, FES, PRALB, GFR, CMP #### [address] [address] .GFRon 02-27-2021 GFR Non- >60 Normal [facility] ([place]) Comment on above: Result Comment: GFR Population [...] PHOS, B12, FES, PRALB, GFR, CMP #### [place] [id number] GFR >60 Normal [facility] ([place]) Comment on above: Result Comment: GFR Population [...] PHOS, B12, FES, PRALB, GFR, CMP #### [address] [address] .NEUABSon 02-27-2021 Neutrophil, Absolute 1.50 10 3/mcL Low 2.25-8.10 [facility] ([place]) Comment on above: Performed By: #### C BC, ADIFF, ANEU, FERR, FOL, MG, TSH, PHOS, B12, FES, PRALB, GFR, CMP #### [address] [address] BMPon 02-27-2021 BUN/Creatinine Ratio 12.9 ratio Normal 10.0-22.0 [facility] ([place]) Comment on above: Performed By: #### C BC, ADIFF, ANEU, FERR, FOL, MG, TSH, PHOS, B12, FES, PRALB, GFR, CMP #### [address] [address] Calcium [Mass/Vol] 8.9 mg/dL Normal 8.7-10.4 [facility] ([place]) Comment on above: Result Comment: No te - New Reference Range in effect 20 Performed By: #### C BC, ADIFF, ANEU, FERR, FOL, MG, TSH, PHOS, B12, FES, PRALB, GFR, CMP #### [address] [address] Chloride [Moles/Vol] 108 mmol/L Normal 98-110 [facility] ([place]) Comment on above: Performed By: #### C BC, ADIFF, ANEU, FERR, FOL, MG, TSH, PHOS, B12, FES, PRALB, GFR, CMP #### [address] [address] CO2 [Moles/Vol] 30 mmol/L Normal 22-32 [facility] ([place]) Comment on above: Performed By: #### C BC, ADIFF, ANEU, FERR, FOL, MG, TSH, PHOS, B12, FES, PRALB, GFR, CMP #### [address] [address] Creatinine [Mass/Vol] 0.62 mg/dL Normal 0.50-1.20 [facility] ([place]) Comment on above: Performed By: #### C BC, ADIFF, ANEU, FERR, FOL, MG, TSH, PHOS, B12, FES, PRALB, GFR, CMP #### [address] [address] Electrolyte Balance 4.0 mEq/L Normal 4.0-15.0 [facility] ([place]) Comment on above: Performed By: #### C BC, ADIFF, ANEU, FERR, FOL, MG, TSH, PHOS, B12, FES, PRALB, GFR, CMP #### [address] [address] Glucose [Mass/Vol] 87 mg/dL Normal 70-110 [facility] ([place]) Comment on above: Performed By: #### C BC, ADIFF, ANEU, FERR, FOL, MG, TSH, PHOS, B12, FES, PRALB, GFR, CMP #### [place] [address] Potassium [Moles/Vol] 3.3 mmol/L Low 3.5-5.0 [facility] ([place]) Comment on above: Performed By: #### C BC, ADIFF, ANEU, FERR, FOL, MG, TSH, PHOS, B12, FES, PRALB, GFR, CMP #### [place] [address] Sodium [Moles/Vol] 142 mmol/L Normal 136-145 [facility] ([place]) Comment on above: Performed By: #### C BC, ADIFF, ANEU, FERR, FOL, MG, TSH, PHOS, B12, FES, PRALB, GFR, CMP #### [place] [id number] Urea nitrogen [Mass/Vol] 8.0 mg/dL Normal 8.0-22.0 [facility] ([place]) Comment on above: Performed By: #### C BC, ADIFF, ANEU, FERR, FOL, MG, TSH, PHOS, B12, FES, PRALB, GFR, CMP #### [address] [address] CBCon 02-27-2021 Erythrocyte distribution width (RBC) [Ratio] 16.3 % High 11.5-15.5 [facility] ([place]) Comment on above: Performed By: #### C BC, ADIFF, ANEU, FERR, FOL, MG, TSH, PHOS, B12, FES, PRALB, GFR, CMP #### [place] [address] Hematocrit (Bld) [Volume fraction] 25.6 % Low 34.0-46.0 [facility] ([place]) Comment on above: Performed By: #### C BC, ADIFF, ANEU, FERR, FOL, MG, TSH, PHOS, B12, FES, PRALB, GFR, CMP #### [place] [id number] Hgb 8.5 G/dL Low 12.0-16.0 [facility] ([place]) Comment on above: Performed By: #### C BC, ADIFF, ANEU, FERR, FOL, MG, TSH, PHOS, B12, FES, PRALB, GFR, CMP #### [place] [id number] MCH (RBC) [Entitic mass] 30.4 pg Normal 27.0-33.0 [facility] ([place]) Comment on above: Performed By: #### C BC, ADIFF, ANEU, FERR, FOL, MG, TSH, PHOS, B12, FES, PRALB, GFR, CMP #### [place] [id number] MCHC 33.3 G/dL Normal 32.0-36.0 [facility] ([place]) Comment on above: Performed By: #### C BC, ADIFF, ANEU, FERR, FOL, MG, TSH, PHOS, B12, FES, PRALB, GFR, CMP #### [place] [address] MCV (RBC) [Entitic vol] 91.3 fL Normal 80.0-99.0 [facility] ([place]) Comment on above: Performed By: #### C BC, ADIFF, ANEU, FERR, FOL, MG, TSH, PHOS, B12, FES, PRALB, GFR, CMP #### [place] [address] Platelet 157 10 3/mcL Normal 150-450 [facility] ([place]) Comment on above: Performed By: #### C BC, ADIFF, ANEU, FERR, FOL, MG, TSH, PHOS, B12, FES, PRALB, GFR, CMP #### [place] [address] Platelet mean volume (Bld) [Entitic vol] 7.6 fL Normal 6.6-10.5 [facility] ([place]) Comment on above: Performed By: #### C BC, ADIFF, ANEU, FERR, FOL, MG, TSH, PHOS, B12, FES, PRALB, GFR, CMP #### [place] [address] RBC 2.81 10 6/mcL Low 4.10-5.30 [facility] ([place]) Comment on above: Performed By: #### C BC, ADIFF, ANEU, FERR, FOL, MG, TSH, PHOS, B12, FES, PRALB, GFR, CMP #### [place] [address] WBC 3.20 10 3/mcL Low 4.50-10.80 [facility] ([place]) Comment on above: Performed By: #### C BC, ADIFF, ANEU, FERR, FOL, MG, TSH, PHOS, B12, FES, PRALB, GFR, CMP #### [place] [address] PRALBon 02-27-2021 Prealbumin [Mass/Vol] 9.2 mg/dL Low 10.0-40.0 [facility] ([place]) Comment on above: Result Comment: No te - New Reference Range in effect 20 Performed By: #### C BC, ADIFF, ANEU, FERR, FOL, MG, TSH, PHOS, B12, FES, PRALB, GFR, CMP #### [place] [address] VANCTon 02-24-2021 LDose Vancomycin:(trough) See eMAR Normal [facility] ([place]) Comment on above: Performed By: #### C BC, ADIFF, ANEU, FERR, FOL, MG, TSH, PHOS, B12, FES, PRALB, GFR, CMP #### [address] [address] Vancomycin Tr 17.1 mcg/mL Normal 5.0-20.0 [facility] ([place]) Comment on above: Performed By: #### C BC, ADIFF, ANEU, FERR, FOL, MG, TSH, PHOS, B12, FES, PRALB, GFR, CMP #### [address] [address] .Auto Diffon 02-22-2021 Basophil, Absolute 0.00 10 3/mcL Normal 0.00-0.27 [facility] ([place]) Comment on above: Performed By: #### C BC, ADIFF, ANEU, FERR, FOL, MG, TSH, PHOS, B12, FES, PRALB, GFR, CMP #### [address] [address] Basophils/100 WBC (Bld) 0.7 % Normal 0.0-2.5 [facility] ([place]) Comment on above: Performed By: #### C BC, ADIFF, ANEU, FERR, FOL, MG, TSH, PHOS, B12, FES, PRALB, GFR, CMP #### [address] [address] Eosinophil, Absolute 0.20 10 3/mcL Normal 0.00-0.65 [facility] ([place]) Comment on above: Performed By: #### C BC, ADIFF, ANEU, FERR, FOL, MG, TSH, PHOS, B12, FES, PRALB, GFR, CMP #### [address] [address] Eosinophils/100 WBC (Bld) 4.9 % Normal 0.0-6.0 [facility] ([place]) Comment on above: Performed By: #### C BC, ADIFF, ANEU, FERR, FOL, MG, TSH, PHOS, B12, FES, PRALB, GFR, CMP #### [place] [id number] Lymphocyte, Absolute 1.40 10 3/mcL Normal 0.90-4.32 [facility] ([place]) Comment on above: Performed By: #### C BC, ADIFF, ANEU, FERR, FOL, MG, TSH, PHOS, B12, FES, PRALB, GFR, CMP #### [address] [address] Lymphocytes/100 WBC (Bld) 33.8 % Normal 20.0-40.0 [facility] ([place]) Comment on above: Performed By: #### C BC, ADIFF, ANEU, FERR, FOL, MG, TSH, PHOS, B12, FES, PRALB, GFR, CMP #### [address] [address] Monocyte, Absolute 0.30 10 3/mcL Normal 0.09-1.40 [facility] ([place]) Comment on above: Performed By: #### C BC, ADIFF, ANEU, FERR, FOL, MG, TSH, PHOS, B12, FES, PRALB, GFR, CMP #### [address] [address] Monocytes/100 WBC (Bld) 8.1 % Normal 2.0-13.0 [facility] ([place]) Comment on above: Performed By: #### C BC, ADIFF, ANEU, FERR, FOL, MG, TSH, PHOS, B12, FES, PRALB, GFR, CMP #### [address] [address] Neutrophils/100 WBC (Bld) 52.5 % Normal 50.0-75.0 [facility] ([place]) Comment on above: Performed By: #### C BC, ADIFF, ANEU, FERR, FOL, MG, TSH, PHOS, B12, FES, PRALB, GFR, CMP #### [address] [address] .GFRon 02-22-2021 GFR >60 Normal [facility] ([place]) Comment on above: Result Comment: GFR Population [...] PHOS, B12, FES, PRALB, GFR, CMP #### [address] [address] GFR Non- >60 Normal [facility] ([place]) Comment on above: Result Comment: GFR Population [...] PHOS, B12, FES, PRALB, GFR, CMP #### [address] [address] .NEUABSon 02-22-2021 Neutrophil, Absolute 2.10 10 3/mcL Low 2.25-8.10 [facility] ([place]) Comment on above: Performed By: #### C BC, ADIFF, ANEU, FERR, FOL, MG, TSH, PHOS, B12, FES, PRALB, GFR, CMP #### [address] [address] BMPon 02-22-2021 BUN/Creatinine Ratio 17.4 ratio Normal 10.0-22.0 [facility] ([place]) Comment on above: Performed By: #### C BC, ADIFF, ANEU, FERR, FOL, MG, TSH, PHOS, B12, FES, PRALB, GFR, CMP #### [address] [address] Calcium [Mass/Vol] 9.0 mg/dL Normal 8.7-10.4 [facility] ([place]) Comment on above: Result Comment: No te - New Reference Range in effect 20 Performed By: #### C BC, ADIFF, ANEU, FERR, FOL, MG, TSH, PHOS, B12, FES, PRALB, GFR, CMP #### [address] [address] Chloride [Moles/Vol] 107 mmol/L Normal 98-110 [facility] ([place]) Comment on above: Performed By: #### C BC, ADIFF, ANEU, FERR, FOL, MG, TSH, PHOS, B12, FES, PRALB, GFR, CMP #### [address] [address] CO2 [Moles/Vol] 31 mmol/L Normal 22-32 [facility] ([place]) Comment on above: Performed By: #### C BC, ADIFF, ANEU, FERR, FOL, MG, TSH, PHOS, B12, FES, PRALB, GFR, CMP #### [address] [address] Creatinine [Mass/Vol] 0.69 mg/dL Normal 0.50-1.20 [facility] ([place]) Comment on above: Performed By: #### C BC, ADIFF, ANEU, FERR, FOL, MG, TSH, PHOS, B12, FES, PRALB, GFR, CMP #### [address] [address] Electrolyte Balance 1.0 mEq/L Low 4.0-15.0 [facility] ([place]) Comment on above: Performed By: #### C BC, ADIFF, ANEU, FERR, FOL, MG, TSH, PHOS, B12, FES, PRALB, GFR, CMP #### [address] [address] Glucose [Mass/Vol] 82 mg/dL Normal 70-110 [facility] ([place]) Comment on above: Performed By: #### C BC, ADIFF, ANEU, FERR, FOL, MG, TSH, PHOS, B12, FES, PRALB, GFR, CMP #### [address] [address] Potassium [Moles/Vol] 3.6 mmol/L Normal 3.5-5.0 [facility] ([place]) Comment on above: Performed By: #### C BC, ADIFF, ANEU, FERR, FOL, MG, TSH, PHOS, B12, FES, PRALB, GFR, CMP #### [place] [id number] Sodium [Moles/Vol] 139 mmol/L Normal 136-145 [facility] ([place]) Comment on above: Performed By: #### C BC, ADIFF, ANEU, FERR, FOL, MG, TSH, PHOS, B12, FES, PRALB, GFR, CMP #### [place] [id number] Urea nitrogen [Mass/Vol] 12.0 mg/dL Normal 8.0-22.0 [facility] ([place]) Comment on above: Performed By: #### C BC, ADIFF, ANEU, FERR, FOL, MG, TSH, PHOS, B12, FES, PRALB, GFR, CMP #### [address] [address] CBCon 02-22-2021 Erythrocyte distribution width (RBC) [Ratio] 17.0 % High 11.5-15.5 [facility] ([place]) Comment on above: Performed By: #### C BC, ADIFF, ANEU, FERR, FOL, MG, TSH, PHOS, B12, FES, PRALB, GFR, CMP #### [place] [id number] Hematocrit (Bld) [Volume fraction] 25.0 % Low 34.0-46.0 [facility] ([place]) Comment on above: Performed By: #### C BC, ADIFF, ANEU, FERR, FOL, MG, TSH, PHOS, B12, FES, PRALB, GFR, CMP #### [place] [address] Hgb 8.6 G/dL Low 12.0-16.0 [facility] ([place]) Comment on above: Performed By: #### C BC, ADIFF, ANEU, FERR, FOL, MG, TSH, PHOS, B12, FES, PRALB, GFR, CMP #### [place] [address] MCH (RBC) [Entitic mass] 31.2 pg Normal 27.0-33.0 [facility] ([place]) Comment on above: Performed By: #### C BC, ADIFF, ANEU, FERR, FOL, MG, TSH, PHOS, B12, FES, PRALB, GFR, CMP #### [place] [address] MCHC 34.3 G/dL Normal 32.0-36.0 [facility] ([place]) Comment on above: Performed By: #### C BC, ADIFF, ANEU, FERR, FOL, MG, TSH, PHOS, B12, FES, PRALB, GFR, CMP #### [place] [address] MCV (RBC) [Entitic vol] 90.9 fL Normal 80.0-99.0 [facility] ([place]) Comment on above: Performed By: #### C BC, ADIFF, ANEU, FERR, FOL, MG, TSH, PHOS, B12, FES, PRALB, GFR, CMP #### [place] [address] Platelet 179 10 3/mcL Normal 150-450 [facility] ([place]) Comment on above: Performed By: #### C BC, ADIFF, ANEU, FERR, FOL, MG, TSH, PHOS, B12, FES, PRALB, GFR, CMP #### [place] [id number] Platelet mean volume (Bld) [Entitic vol] 7.7 fL Normal 6.6-10.5 [facility] ([place]) Comment on above: Performed By: #### C BC, ADIFF, ANEU, FERR, FOL, MG, TSH, PHOS, B12, FES, PRALB, GFR, CMP #### [place] [address] RBC 2.75 10 6/mcL Low 4.10-5.30 [facility] ([place]) Comment on above: Performed By: #### C BC, ADIFF, ANEU, FERR, FOL, MG, TSH, PHOS, B12, FES, PRALB, GFR, CMP #### [place] [address] WBC 4.10 10 3/mcL Low 4.50-10.80 [facility] ([place]) Comment on above: Performed By: #### C BC, ADIFF, ANEU, FERR, FOL, MG, TSH, PHOS, B12, FES, PRALB, GFR, CMP #### [place] [address] VANCTon 02-22-2021 LDose Vancomycin:(trough) See eMAR Normal [facility] ([place]) Comment on above: Performed By: #### C BC, ADIFF, ANEU, FERR, FOL, MG, TSH, PHOS, B12, FES, PRALB, GFR, CMP #### [place] [address] Vancomycin Tr 23.7 mcg/mL Critically abnormal 5.0-20.0 [facility] ([place]) Comment on above: Performed By: #### C BC, ADIFF, ANEU, FERR, FOL, MG, TSH, PHOS, B12, FES, PRALB, GFR, CMP #### [place] [address] [facility] Prealbumin [Mass/Vol] 14.2 mg/dL Normal 10.0-40.0 [facility] ([place]) Comment on above: Result Comment: No te - New Reference Range in effect 20 Performed By: #### C BC, ADIFF, ANEU, FERR, FOL, MG, TSH, PHOS, B12, FES, PRALB, GFR, CMP #### [address] [address] .Auto Diffon 02-17-2021 Basophil, Absolute 0.00 10 3/mcL Normal 0.00-0.27 [facility] ([place]) Comment on above: Performed By: #### C BC, ADIFF, ANEU, FERR, FOL, MG, TSH, PHOS, B12, FES, PRALB, GFR, CMP #### [address] [address] Basophils/100 WBC (Bld) 1.1 % Normal 0.0-2.5 [facility] ([place]) Comment on above: Performed By: #### C BC, ADIFF, ANEU, FERR, FOL, MG, TSH, PHOS, B12, FES, PRALB, GFR, CMP #### [address] [address] Eosinophil, Absolute 0.20 10 3/mcL Normal 0.00-0.65 [facility] ([place]) Comment on above: Performed By: #### C BC, ADIFF, ANEU, FERR, FOL, MG, TSH, PHOS, B12, FES, PRALB, GFR, CMP #### [address] [address] Eosinophils/100 WBC (Bld) 4.8 % Normal 0.0-6.0 [facility] ([place]) Comment on above: Performed By: #### C BC, ADIFF, ANEU, FERR, FOL, MG, TSH, PHOS, B12, FES, PRALB, GFR, CMP #### [address] [address] Lymphocyte, Absolute 1.10 10 3/mcL Normal 0.90-4.32 [facility] ([place]) Comment on above: Performed By: #### C BC, ADIFF, ANEU, FERR, FOL, MG, TSH, PHOS, B12, FES, PRALB, GFR, CMP #### [address] [address] Lymphocytes/100 WBC (Bld) 28.3 % Normal 20.0-40.0 [facility] ([place]) Comment on above: Performed By: #### C BC, ADIFF, ANEU, FERR, FOL, MG, TSH, PHOS, B12, FES, PRALB, GFR, CMP #### [address] [address] Monocyte, Absolute 0.40 10 3/mcL Normal 0.09-1.40 [facility] ([place]) Comment on above: Performed By: #### C BC, ADIFF, ANEU, FERR, FOL, MG, TSH, PHOS, B12, FES, PRALB, GFR, CMP #### [address] [address] Monocytes/100 WBC (Bld) 8.9 % Normal 2.0-13.0 [facility] ([place]) Comment on above: Performed By: #### C BC, ADIFF, ANEU, FERR, FOL, MG, TSH, PHOS, B12, FES, PRALB, GFR, CMP #### [address] [address] Neutrophils/100 WBC (Bld) 56.9 % Normal 50.0-75.0 [facility] ([place]) Comment on above: Performed By: #### C BC, ADIFF, ANEU, FERR, FOL, MG, TSH, PHOS, B12, FES, PRALB, GFR, CMP #### [address] [address] .GFRon 02-17-2021 GFR Non- >60 Normal [facility] ([place]) Comment on above: Result Comment: GFR Population [...] PHOS, B12, FES, PRALB, GFR, CMP #### [address] [address] GFR >60 Normal [facility] ([place]) Comment on above: Result Comment: GFR Population [...] PHOS, B12, FES, PRALB, GFR, CMP #### [address] [address] .NEUABSon 02-17-2021 Neutrophil, Absolute 2.30 10 3/mcL Normal 2.25-8.10 [facility] ([place]) Comment on above: Performed By: #### C BC, ADIFF, ANEU, FERR, FOL, MG, TSH, PHOS, B12, FES, PRALB, GFR, CMP #### [address] [address] BMPon 02-17-2021 BUN/Creatinine Ratio 29.3 ratio High 10.0-22.0 [facility] ([place]) Comment on above: Performed By: #### C BC, ADIFF, ANEU, FERR, FOL, MG, TSH, PHOS, B12, FES, PRALB, GFR, CMP #### [address] [address] Calcium [Mass/Vol] 8.7 mg/dL Normal 8.7-10.4 [facility] ([place]) Comment on above: Result Comment: No te - New Reference Range in effect 20 Performed By: #### C BC, ADIFF, ANEU, FERR, FOL, MG, TSH, PHOS, B12, FES, PRALB, GFR, CMP #### [address] [address] Chloride [Moles/Vol] 104 mmol/L Normal 98-110 [facility] ([place]) Comment on above: Performed By: #### C BC, ADIFF, ANEU, FERR, FOL, MG, TSH, PHOS, B12, FES, PRALB, GFR, CMP #### [address] [address] CO2 [Moles/Vol] 31 mmol/L Normal 22-32 [facility] ([place]) Comment on above: Performed By: #### C BC, ADIFF, ANEU, FERR, FOL, MG, TSH, PHOS, B12, FES, PRALB, GFR, CMP #### [address] [address] Creatinine [Mass/Vol] 0.58 mg/dL Normal 0.50-1.20 [facility] ([place]) Comment on above: Performed By: #### C BC, ADIFF, ANEU, FERR, FOL, MG, TSH, PHOS, B12, FES, PRALB, GFR, CMP #### [address] [address] Electrolyte Balance 4.0 mEq/L Normal 4.0-15.0 [facility] ([place]) Comment on above: Performed By: #### C BC, ADIFF, ANEU, FERR, FOL, MG, TSH, PHOS, B12, FES, PRALB, GFR, CMP #### [address] [address] Glucose [Mass/Vol] 104 mg/dL Normal 70-110 [facility] ([place]) Comment on above: Performed By: #### C BC, ADIFF, ANEU, FERR, FOL, MG, TSH, PHOS, B12, FES, PRALB, GFR, CMP #### [address] [address] Potassium [Moles/Vol] 3.9 mmol/L Normal 3.5-5.0 [facility] ([place]) Comment on above: Performed By: #### C BC, ADIFF, ANEU, FERR, FOL, MG, TSH, PHOS, B12, FES, PRALB, GFR, CMP #### [place] [id number] Sodium [Moles/Vol] 139 mmol/L Normal 136-145 [facility] ([place]) Comment on above: Performed By: #### C BC, ADIFF, ANEU, FERR, FOL, MG, TSH, PHOS, B12, FES, PRALB, GFR, CMP #### [place] [address] Urea nitrogen [Mass/Vol] 17.0 mg/dL Normal 8.0-22.0 [facility] ([place]) Comment on above: Performed By: #### C BC, ADIFF, ANEU, FERR, FOL, MG, TSH, PHOS, B12, FES, PRALB, GFR, CMP #### [address] [address] CBCon 02-17-2021 Erythrocyte distribution width (RBC) [Ratio] 16.9 % High 11.5-15.5 [facility] ([place]) Comment on above: Performed By: #### C BC, ADIFF, ANEU, FERR, FOL, MG, TSH, PHOS, B12, FES, PRALB, GFR, CMP #### [place] [id number] Hematocrit (Bld) [Volume fraction] 24.6 % Low 34.0-46.0 [facility] ([place]) Comment on above: Performed By: #### C BC, ADIFF, ANEU, FERR, FOL, MG, TSH, PHOS, B12, FES, PRALB, GFR, CMP #### [place] [id number] Hgb 8.3 G/dL Low 12.0-16.0 [facility] ([place]) Comment on above: Performed By: #### C BC, ADIFF, ANEU, FERR, FOL, MG, TSH, PHOS, B12, FES, PRALB, GFR, CMP #### [place] [address] MCH (RBC) [Entitic mass] 30.7 pg Normal 27.0-33.0 [facility] ([place]) Comment on above: Performed By: #### C BC, ADIFF, ANEU, FERR, FOL, MG, TSH, PHOS, B12, FES, PRALB, GFR, CMP #### [place] [id number] MCHC 33.7 G/dL Normal 32.0-36.0 [facility] ([place]) Comment on above: Performed By: #### C BC, ADIFF, ANEU, FERR, FOL, MG, TSH, PHOS, B12, FES, PRALB, GFR, CMP #### [place] [address] MCV (RBC) [Entitic vol] 91.1 fL Normal 80.0-99.0 [facility] ([place]) Comment on above: Performed By: #### C BC, ADIFF, ANEU, FERR, FOL, MG, TSH, PHOS, B12, FES, PRALB, GFR, CMP #### [place] [address] Platelet 180 10 3/mcL Normal 150-450 [facility] ([place]) Comment on above: Performed By: #### C BC, ADIFF, ANEU, FERR, FOL, MG, TSH, PHOS, B12, FES, PRALB, GFR, CMP #### [place] [address] Platelet mean volume (Bld) [Entitic vol] 7.7 fL Normal 6.6-10.5 [facility] ([place]) Comment on above: Performed By: #### C BC, ADIFF, ANEU, FERR, FOL, MG, TSH, PHOS, B12, FES, PRALB, GFR, CMP #### [place] [address] RBC 2.70 10 6/mcL Low 4.10-5.30 [facility] ([place]) Comment on above: Performed By: #### C BC, ADIFF, ANEU, FERR, FOL, MG, TSH, PHOS, B12, FES, PRALB, GFR, CMP #### [place] [address] WBC 4.00 10 3/mcL Low 4.50-10.80 [facility] ([place]) Comment on above: Performed By: #### C BC, ADIFF, ANEU, FERR, FOL, MG, TSH, PHOS, B12, FES, PRALB, GFR, CMP #### [place] [address] VANCTon 02-16-2021 LDose Vancomycin:(trough) See eMAR Normal [facility] ([place]) Comment on above: Performed By: #### C BC, ADIFF, ANEU, FERR, FOL, MG, TSH, PHOS, B12, FES, PRALB, GFR, CMP #### [place] [address] Vancomycin Tr 20.1 mcg/mL Critically abnormal 5.0-20.0 [facility] ([place]) Comment on above: Performed By: #### C BC, ADIFF, ANEU, FERR, FOL, MG, TSH, PHOS, B12, FES, PRALB, GFR, CMP #### [place] [address] PRALBon 02-13-2021 Prealbumin [Mass/Vol] 13.2 mg/dL Normal 10.0-40.0 [facility] ([place]) Comment on above: Result Comment: No te - New Reference Range in effect 20 Performed By: #### C BC, ADIFF, ANEU, FERR, FOL, MG, TSH, PHOS, B12, FES, PRALB, GFR, CMP #### [place] [address] .Auto Diffon 02-11-2021 Basophil, Absolute 0.10 10 3/mcL Normal 0.00-0.27 [facility] ([place]) Comment on above: Performed By: #### C BC, ADIFF, ANEU, FERR, FOL, MG, TSH, PHOS, B12, FES, PRALB, GFR, CMP #### [address] [address] Basophils/100 WBC (Bld) 1.5 % Normal 0.0-2.5 [facility] ([place]) Comment on above: Performed By: #### C BC, ADIFF, ANEU, FERR, FOL, MG, TSH, PHOS, B12, FES, PRALB, GFR, CMP #### [address] [address] Eosinophil, Absolute 0.20 10 3/mcL Normal 0.00-0.65 [facility] ([place]) Comment on above: Performed By: #### C BC, ADIFF, ANEU, FERR, FOL, MG, TSH, PHOS, B12, FES, PRALB, GFR, CMP #### [address] [address] Eosinophils/100 WBC (Bld) 4.8 % Normal 0.0-6.0 [facility] ([place]) Comment on above: Performed By: #### C BC, ADIFF, ANEU, FERR, FOL, MG, TSH, PHOS, B12, FES, PRALB, GFR, CMP #### [address] [address] Lymphocyte, Absolute 1.20 10 3/mcL Normal 0.90-4.32 [facility] ([place]) Comment on above: Performed By: #### C BC, ADIFF, ANEU, FERR, FOL, MG, TSH, PHOS, B12, FES, PRALB, GFR, CMP #### [address] [address] Lymphocytes/100 WBC (Bld) 33.3 % Normal 20.0-40.0 [facility] ([place]) Comment on above: Performed By: #### C BC, ADIFF, ANEU, FERR, FOL, MG, TSH, PHOS, B12, FES, PRALB, GFR, CMP #### [address] [address] Monocyte, Absolute 0.20 10 3/mcL Normal 0.09-1.40 [facility] ([place]) Comment on above: Performed By: #### C BC, ADIFF, ANEU, FERR, FOL, MG, TSH, PHOS, B12, FES, PRALB, GFR, CMP #### [address] [address] Monocytes/100 WBC (Bld) 6.4 % Normal 2.0-13.0 [facility] ([place]) Comment on above: Performed By: #### C BC, ADIFF, ANEU, FERR, FOL, MG, TSH, PHOS, B12, FES, PRALB, GFR, CMP #### [address] [address] Neutrophils/100 WBC (Bld) 54.0 % Normal 50.0-75.0 [facility] ([place]) Comment on above: Performed By: #### C BC, ADIFF, ANEU, FERR, FOL, MG, TSH, PHOS, B12, FES, PRALB, GFR, CMP #### [address] [address] .GFRon 02-11-2021 GFR >60 Normal [facility] ([place]) Comment on above: Result Comment: GFR Population [...] PHOS, B12, FES, PRALB, GFR, CMP #### [address] [address] GFR Non- >60 Normal [facility] ([place]) Comment on above: Result Comment: GFR Population [...] PHOS, B12, FES, PRALB, GFR, CMP #### [address] [address] .NEUABSon 02-11-2021 Neutrophil, Absolute 2.00 10 3/mcL Low 2.25-8.10 [facility] ([place]) Comment on above: Performed By: #### C BC, ADIFF, ANEU, FERR, FOL, MG, TSH, PHOS, B12, FES, PRALB, GFR, CMP #### [address] [address] BMPon 02-11-2021 BUN/Creatinine Ratio 26.2 ratio High 10.0-22.0 [facility] ([place]) Comment on above: Performed By: #### C BC, ADIFF, ANEU, FERR, FOL, MG, TSH, PHOS, B12, FES, PRALB, GFR, CMP #### [address] [address] Calcium [Mass/Vol] 8.4 mg/dL Low 8.7-10.4 [facility] ([place]) Comment on above: Result Comment: No te - New Reference Range in effect 20 Performed By: #### C BC, ADIFF, ANEU, FERR, FOL, MG, TSH, PHOS, B12, FES, PRALB, GFR, CMP #### [address] [address] Chloride [Moles/Vol] 105 mmol/L Normal 98-110 [facility] ([place]) Comment on above: Performed By: #### C BC, ADIFF, ANEU, FERR, FOL, MG, TSH, PHOS, B12, FES, PRALB, GFR, CMP #### [address] [address] CO2 [Moles/Vol] 31 mmol/L Normal 22-32 [facility] ([place]) Comment on above: Performed By: #### C BC, ADIFF, ANEU, FERR, FOL, MG, TSH, PHOS, B12, FES, PRALB, GFR, CMP #### [address] [address] Creatinine [Mass/Vol] 0.61 mg/dL Normal 0.50-1.20 [facility] ([place]) Comment on above: Performed By: #### C BC, ADIFF, ANEU, FERR, FOL, MG, TSH, PHOS, B12, FES, PRALB, GFR, CMP #### [address] [address] Electrolyte Balance 3.0 mEq/L Low 4.0-15.0 [facility] ([place]) Comment on above: Performed By: #### C BC, ADIFF, ANEU, FERR, FOL, MG, TSH, PHOS, B12, FES, PRALB, GFR, CMP #### [address] [address] Glucose [Mass/Vol] 113 mg/dL High 70-110 [facility] ([place]) Comment on above: Performed By: #### C BC, ADIFF, ANEU, FERR, FOL, MG, TSH, PHOS, B12, FES, PRALB, GFR, CMP #### [address] [address] Potassium [Moles/Vol] 4.0 mmol/L Normal 3.5-5.0 [facility] ([place]) Comment on above: Performed By: #### C BC, ADIFF, ANEU, FERR, FOL, MG, TSH, PHOS, B12, FES, PRALB, GFR, CMP #### [address] [address] Sodium [Moles/Vol] 139 mmol/L Normal 136-145 [facility] ([place]) Comment on above: Performed By: #### C BC, ADIFF, ANEU, FERR, FOL, MG, TSH, PHOS, B12, FES, PRALB, GFR, CMP #### [place] [id number] Urea nitrogen [Mass/Vol] 16.0 mg/dL Normal 8.0-22.0 [facility] ([place]) Comment on above: Performed By: #### C BC, ADIFF, ANEU, FERR, FOL, MG, TSH, PHOS, B12, FES, PRALB, GFR, CMP #### [address] [address] CBCon 02-11-2021 Erythrocyte distribution width (RBC) [Ratio] 16.4 % High 11.5-15.5 [facility] ([place]) Comment on above: Performed By: #### C BC, ADIFF, ANEU, FERR, FOL, MG, TSH, PHOS, B12, FES, PRALB, GFR, CMP #### [place] [address] Hematocrit (Bld) [Volume fraction] 23.7 % Low 34.0-46.0 [facility] ([place]) Comment on above: Performed By: #### C BC, ADIFF, ANEU, FERR, FOL, MG, TSH, PHOS, B12, FES, PRALB, GFR, CMP #### [place] [id number] Hgb 8.0 G/dL Low 12.0-16.0 [facility] ([place]) Comment on above: Performed By: #### C BC, ADIFF, ANEU, FERR, FOL, MG, TSH, PHOS, B12, FES, PRALB, GFR, CMP #### [place] [id number] MCH (RBC) [Entitic mass] 30.9 pg Normal 27.0-33.0 [facility] ([place]) Comment on above: Performed By: #### C BC, ADIFF, ANEU, FERR, FOL, MG, TSH, PHOS, B12, FES, PRALB, GFR, CMP #### [address] [address] MCHC 33.9 G/dL Normal 32.0-36.0 [facility] ([place]) Comment on above: Performed By: #### C BC, ADIFF, ANEU, FERR, FOL, MG, TSH, PHOS, B12, FES, PRALB, GFR, CMP #### [place] [id number] MCV (RBC) [Entitic vol] 91.2 fL Normal 80.0-99.0 [facility] ([place]) Comment on above: Performed By: #### C BC, ADIFF, ANEU, FERR, FOL, MG, TSH, PHOS, B12, FES, PRALB, GFR, CMP #### [place] [address] Platelet 180 10 3/mcL Normal 150-450 [facility] ([place]) Comment on above: Performed By: #### C BC, ADIFF, ANEU, FERR, FOL, MG, TSH, PHOS, B12, FES, PRALB, GFR, CMP #### [address] [address] Platelet mean volume (Bld) [Entitic vol] 7.5 fL Normal 6.6-10.5 [facility] ([place]) Comment on above: Performed By: #### C BC, ADIFF, ANEU, FERR, FOL, MG, TSH, PHOS, B12, FES, PRALB, GFR, CMP #### [place] [id number] RBC 2.60 10 6/mcL Low 4.10-5.30 [facility] ([place]) Comment on above: Performed By: #### C BC, ADIFF, ANEU, FERR, FOL, MG, TSH, PHOS, B12, FES, PRALB, GFR, CMP #### [place] [id number] WBC 3.70 10 3/mcL Low 4.50-10.80 [facility] ([place]) Comment on above: Performed By: #### C BC, ADIFF, ANEU, FERR, FOL, MG, TSH, PHOS, B12, FES, PRALB, GFR, CMP #### [address] [address] MGon 02-11-2021 Magnesium [Mass/Vol] 1.6 mg/dL Normal 1.6-2.4 [facility] ([place]) Comment on above: Performed By: #### C BC, ADIFF, ANEU, FERR, FOL, MG, TSH, PHOS, B12, FES, PRALB, GFR, CMP #### [place] [address] VANCTon 02-11-2021 LDose Vancomycin:(trough) See eMAR Normal [facility] ([place]) Comment on above: Performed By: #### C BC, ADIFF, ANEU, FERR, FOL, MG, TSH, PHOS, B12, FES, PRALB, GFR, CMP #### [place] [address] Vancomycin Tr 19.2 mcg/mL Normal 5.0-20.0 [facility] ([place]) Comment on above: Performed By: #### C BC, ADIFF, ANEU, FERR, FOL, MG, TSH, PHOS, B12, FES, PRALB, GFR, CMP #### [place] [address] .GFRon 02-10-2021 GFR >60 Normal [facility] ([place]) Comment on above: Result Comment: GFR Population [...] PHOS, B12, FES, PRALB, GFR, CMP #### [address] [address] GFR Non- >60 Normal [facility] ([place]) Comment on above: Result Comment: GFR Population [...] PHOS, B12, FES, PRALB, GFR, CMP #### [place] [id number] B12on 02-10-2021 Cobalamin (Vitamin B12) [Mass/Vol] 840 pg/mL Normal 211-911 [facility] ([place]) Comment on above: Performed By: #### C BC, ADIFF, ANEU, FERR, FOL, MG, TSH, PHOS, B12, FES, PRALB, GFR, CMP #### [place] [id number] CMPon 02-10-2021 Albumin Level 1.8 G/dL Low 3.2-4.8 [facility] ([place]) Comment on above: Performed By: #### C BC, ADIFF, ANEU, FERR, FOL, MG, TSH, PHOS, B12, FES, PRALB, GFR, CMP #### [place] [address] Albumin/Globulin [Mass ratio] 0.5 {ratio} Low 0.9-1.6 [facility] ([place]) Comment on above: Performed By: #### C BC, ADIFF, ANEU, FERR, FOL, MG, TSH, PHOS, B12, FES, PRALB, GFR, CMP #### [address] [address] ALP [Catalytic activity/Vol] 130 U/L High 38-126 [facility] ([place]) Comment on above: Performed By: #### C BC, ADIFF, ANEU, FERR, FOL, MG, TSH, PHOS, B12, FES, PRALB, GFR, CMP #### [place] [id number] ALT [Catalytic activity/Vol] 15 U/L Normal 10-49 [facility] ([place]) Comment on above: Performed By: #### C BC, ADIFF, ANEU, FERR, FOL, MG, TSH, PHOS, B12, FES, PRALB, GFR, CMP #### [place] [id number] AST [Catalytic activity/Vol] 17 U/L Normal 8-34 [facility] ([place]) Comment on above: Performed By: #### C BC, ADIFF, ANEU, FERR, FOL, MG, TSH, PHOS, B12, FES, PRALB, GFR, CMP #### [address] [address] Bili Total 0.30 mg/dL Normal 0.20-1.20 [facility] ([place]) Comment on above: Result Comment: Use of this assay is not recommended for patients undergoing treatment with eltrombopag due to the potential for falsely elevated results. Performed By: #### C BC, ADIFF, ANEU, FERR, FOL, MG, TSH, PHOS, B12, FES, PRALB, GFR, CMP #### [place] [id number] BUN/Creatinine Ratio 32.7 ratio High 10.0-22.0 [facility] ([place]) Comment on above: Performed By: #### C BC, ADIFF, ANEU, FERR, FOL, MG, TSH, PHOS, B12, FES, PRALB, GFR, CMP #### [place] [id number] Calcium [Mass/Vol] 8.5 mg/dL Low 8.7-10.4 [facility] ([place]) Comment on above: Result Comment: No te - New Reference Range in effect 20 Performed By: #### C BC, ADIFF, ANEU, FERR, FOL, MG, TSH, PHOS, B12, FES, PRALB, GFR, CMP #### [address] [address] Chloride [Moles/Vol] 106 mmol/L Normal 98-110 [facility] ([place]) Comment on above: Performed By: #### C BC, ADIFF, ANEU, FERR, FOL, MG, TSH, PHOS, B12, FES, PRALB, GFR, CMP #### [address] [address] CO2 [Moles/Vol] 29 mmol/L Normal 22-32 [facility] ([place]) Comment on above: Performed By: #### C BC, ADIFF, ANEU, FERR, FOL, MG, TSH, PHOS, B12, FES, PRALB, GFR, CMP #### [place] [address] Creatinine [Mass/Vol] 0.52 mg/dL Normal 0.50-1.20 [facility] ([place]) Comment on above: Performed By: #### C BC, ADIFF, ANEU, FERR, FOL, MG, TSH, PHOS, B12, FES, PRALB, GFR, CMP #### [place] [address] Electrolyte Balance 3.0 mEq/L Low 4.0-15.0 [facility] ([place]) Comment on above: Performed By: #### C BC, ADIFF, ANEU, FERR, FOL, MG, TSH, PHOS, B12, FES, PRALB, GFR, CMP #### [place] [id number] Globulin 3.4 G/dL Normal 1.5-3.8 [facility] ([place]) Comment on above: Performed By: #### C BC, ADIFF, ANEU, FERR, FOL, MG, TSH, PHOS, B12, FES, PRALB, GFR, CMP #### [address] [address] Glucose [Mass/Vol] 72 mg/dL Normal 70-110 [facility] ([place]) Comment on above: Performed By: #### C BC, ADIFF, ANEU, FERR, FOL, MG, TSH, PHOS, B12, FES, PRALB, GFR, CMP #### [address] [address] Potassium [Moles/Vol] 4.0 mmol/L Normal 3.5-5.0 [facility] ([place]) Comment on above: Performed By: #### C BC, ADIFF, ANEU, FERR, FOL, MG, TSH, PHOS, B12, FES, PRALB, GFR, CMP #### [address] [address] Sodium [Moles/Vol] 138 mmol/L Normal 136-145 [facility] ([place]) Comment on above: Performed By: #### C BC, ADIFF, ANEU, FERR, FOL, MG, TSH, PHOS, B12, FES, PRALB, GFR, CMP #### [address] [address] Total Protein 5.2 G/dL Low 5.7-8.2 [facility] ([place]) Comment on above: Result Comment: No te - New Reference Range in effect 20 Performed By: #### C BC, ADIFF, ANEU, FERR, FOL, MG, TSH, PHOS, B12, FES, PRALB, GFR, CMP #### [address] [address] Urea nitrogen [Mass/Vol] 17.0 mg/dL Normal 8.0-22.0 [facility] ([place]) Comment on above: Performed By: #### C BC, ADIFF, ANEU, FERR, FOL, MG, TSH, PHOS, B12, FES, PRALB, GFR, CMP #### [address] [address] [place] 02-10-2021 Ferritin [Mass/Vol] 126.6 ng/mL Normal 8.0-252.0 [facility] ([place]) Comment on above: Performed By: #### C BC, ADIFF, ANEU, FERR, FOL, MG, TSH, PHOS, B12, FES, PRALB, GFR, CMP #### [place] [address] FESon 02-10-2021 Iron [Mass/Vol] 38 ug/dL Low 50-170 [facility] ([place]) Comment on above: Performed By: #### C BC, ADIFF, ANEU, FERR, FOL, MG, TSH, PHOS, B12, FES, PRALB, GFR, CMP #### [place] [address] Iron Sat 18 % Normal [facility] ([place]) Comment on above: Performed By: #### C BC, ADIFF, ANEU, FERR, FOL, MG, TSH, PHOS, B12, FES, PRALB, GFR, CMP #### [place] [address] TIBC 217 mcg/dL Low 250-500 [facility] ([place]) Comment on above: Performed By: #### C BC, ADIFF, ANEU, FERR, FOL, MG, TSH, PHOS, B12, FES, PRALB, GFR, CMP #### [place] [address] FOLon 02-10-2021 Folate 10.11 ng/mL Normal 5.38-24.00 [facility] ([place]) Comment on above: Performed By: #### C BC, ADIFF, ANEU, FERR, FOL, MG, TSH, PHOS, B12, FES, PRALB, GFR, CMP #### [place] [address] MGon 02-10-2021 Magnesium [Mass/Vol] 1.6 mg/dL Normal 1.6-2.4 [facility] ([place]) Comment on above: Performed By: #### C BC, ADIFF, ANEU, FERR, FOL, MG, TSH, PHOS, B12, FES, PRALB, GFR, CMP #### [place] [address] PHOSon 02-10-2021 Phosphate [Mass/Vol] 4.2 mg/dL Normal 2.4-5.1 [facility] ([place]) Comment on above: Result Comment: No te - New Reference Range in effect 20 Performed By: #### C BC, ADIFF, ANEU, FERR, FOL, MG, TSH, PHOS, B12, FES, PRALB, GFR, CMP #### [place] [address] PRALBon 02-10-2021 Prealbumin [Mass/Vol] 12.3 mg/dL Normal 10.0-40.0 [facility] ([place]) Comment on above: Result Comment: No te - New Reference Range in effect 20 Performed By: #### C BC, ADIFF, ANEU, FERR, FOL, MG, TSH, PHOS, B12, FES, PRALB, GFR, CMP #### [place] [address] TSHon 02-10-2021 TSH 2.084 mIU/mL Normal 0.550-4.780 [facility] ([place]) Comment on above: Result Comment: No te - New Reference Range in effect 20 Performed By: #### C BC, ADIFF, ANEU, FERR, FOL, MG, TSH, PHOS, B12, FES, PRALB, GFR, CMP #### [place] [address] VANCRon 02-10-2021 LDose Vancomycin: (random) See eMAR Normal [facility] ([place]) Comment on above: Performed By: #### C BC, ADIFF, ANEU, FERR, FOL, MG, TSH, PHOS, B12, FES, PRALB, GFR, CMP #### [place] [address] .Auto Diffon 02-09-2021 Basophil, Absolute 0.10 10 3/mcL Normal 0.00-0.27 [facility] ([place]) Comment on above: Performed By: #### C BC, ADIFF, ANEU, FERR, FOL, MG, TSH, PHOS, B12, FES, PRALB, GFR, CMP #### [address] [address] Basophils/100 WBC (Bld) 1.8 % Normal 0.0-2.5 [facility] ([place]) Comment on above: Performed By: #### C BC, ADIFF, ANEU, FERR, FOL, MG, TSH, PHOS, B12, FES, PRALB, GFR, CMP #### [address] [address] Eosinophil, Absolute 0.20 10 3/mcL Normal 0.00-0.65 [facility] ([place]) Comment on above: Performed By: #### C BC, ADIFF, ANEU, FERR, FOL, MG, TSH, PHOS, B12, FES, PRALB, GFR, CMP #### [address] [address] Eosinophils/100 WBC (Bld) 4.3 % Normal 0.0-6.0 [facility] ([place]) Comment on above: Performed By: #### C BC, ADIFF, ANEU, FERR, FOL, MG, TSH, PHOS, B12, FES, PRALB, GFR, CMP #### [address] [address] Lymphocyte, Absolute 1.10 10 3/mcL Normal 0.90-4.32 [facility] ([place]) Comment on above: Performed By: #### C BC, ADIFF, ANEU, FERR, FOL, MG, TSH, PHOS, B12, FES, PRALB, GFR, CMP #### [address] [address] Lymphocytes/100 WBC (Bld) 30.2 % Normal 20.0-40.0 [facility] ([place]) Comment on above: Performed By: #### C BC, ADIFF, ANEU, FERR, FOL, MG, TSH, PHOS, B12, FES, PRALB, GFR, CMP #### [address] [address] Monocyte, Absolute 0.20 10 3/mcL Normal 0.09-1.40 [facility] ([place]) Comment on above: Performed By: #### C BC, ADIFF, ANEU, FERR, FOL, MG, TSH, PHOS, B12, FES, PRALB, GFR, CMP #### [address] [address] Monocytes/100 WBC (Bld) 5.9 % Normal 2.0-13.0 [facility] ([place]) Comment on above: Performed By: #### C BC, ADIFF, ANEU, FERR, FOL, MG, TSH, PHOS, B12, FES, PRALB, GFR, CMP #### [address] [address] Neutrophils/100 WBC (Bld) 57.8 % Normal 50.0-75.0 [facility] ([place]) Comment on above: Performed By: #### C BC, ADIFF, ANEU, FERR, FOL, MG, TSH, PHOS, B12, FES, PRALB, GFR, CMP #### [address] [address] .NEUABSon 02-09-2021 Neutrophil, Absolute 2.00 10 3/mcL Low 2.25-8.10 [facility] ([place]) Comment on above: Performed By: #### C BC, ADIFF, ANEU, FERR, FOL, MG, TSH, PHOS, B12, FES, PRALB, GFR, CMP #### [address] [address] CBCon 02-09-2021 Erythrocyte distribution width (RBC) [Ratio] 16.1 % High 11.5-15.5 [facility] ([place]) Comment on above: Performed By: #### C BC, ADIFF, ANEU, FERR, FOL, MG, TSH, PHOS, B12, FES, PRALB, GFR, CMP #### [address] [address] Hematocrit (Bld) [Volume fraction] 24.5 % Low 34.0-46.0 [facility] ([place]) Comment on above: Performed By: #### C BC, ADIFF, ANEU, FERR, FOL, MG, TSH, PHOS, B12, FES, PRALB, GFR, CMP #### [place] [address] Hgb 8.1 G/dL Low 12.0-16.0 [facility] ([place]) Comment on above: Performed By: #### C BC, ADIFF, ANEU, FERR, FOL, MG, TSH, PHOS, B12, FES, PRALB, GFR, CMP #### [place] [address] MCH (RBC) [Entitic mass] 30.4 pg Normal 27.0-33.0 [facility] ([place]) Comment on above: Performed By: #### C BC, ADIFF, ANEU, FERR, FOL, MG, TSH, PHOS, B12, FES, PRALB, GFR, CMP #### [place] [address] MCHC 33.2 G/dL Normal 32.0-36.0 [facility] ([place]) Comment on above: Performed By: #### C BC, ADIFF, ANEU, FERR, FOL, MG, TSH, PHOS, B12, FES, PRALB, GFR, CMP #### [place] [address] MCV (RBC) [Entitic vol] 91.3 fL Normal 80.0-99.0 [facility] ([place]) Comment on above: Performed By: #### C BC, ADIFF, ANEU, FERR, FOL, MG, TSH, PHOS, B12, FES, PRALB, GFR, CMP #### [place] [id number] Platelet 180 10 3/mcL Normal 150-450 [facility] ([place]) Comment on above: Performed By: #### C BC, ADIFF, ANEU, FERR, FOL, MG, TSH, PHOS, B12, FES, PRALB, GFR, CMP #### [place] [id number] Platelet mean volume (Bld) [Entitic vol] 7.8 fL Normal 6.6-10.5 [facility] ([place]) Comment on above: Performed By: #### C BC, ADIFF, ANEU, FERR, FOL, MG, TSH, PHOS, B12, FES, PRALB, GFR, CMP #### [address] [address] RBC 2.68 10 6/mcL Low 4.10-5.30 [facility] ([place]) Comment on above: Performed By: #### C BC, ADIFF, ANEU, FERR, FOL, MG, TSH, PHOS, B12, FES, PRALB, GFR, CMP #### [address] [address] WBC 3.50 10 3/mcL Low 4.50-10.80 [facility] ([place]) Comment on above: Performed By: #### C BC, ADIFF, ANEU, FERR, FOL, MG, TSH, PHOS, B12, FES, PRALB, GFR, CMP #### [address] [address] CBC,PLATELETSon 02-09-2021 Hematocrit (Bld) [Volume fraction] 25.9 % Low 34.9-44.3 [facility] Comment on above: Performed By: #### T YPEC #### [facility] (DEFAULT) [address] [address] Hemoglobin (Bld) [Mass/Vol] 8.5 g/dL Low 11.4-15.2 [facility] Comment on above: Performed By: #### T YPEC #### [facility] (DEFAULT) [address] [address] MCV (RBC) [Entitic vol] 93.2 fL Normal 79.6-97.7 [facility] Comment on above: Performed By: #### T YPEC #### [facility] (DEFAULT) [address] [address] Mean Cell Hgb 30.6 pg Normal 25.9-33.9 [facility] Comment on above: Performed By: #### T YPEC #### [facility] (DEFAULT) [address] [address] Mean Cell Hgb Conc 32.8 g/dL Normal 31.4-35.9 [facility] Comment on above: Performed By: #### T YPEC #### [facility] (DEFAULT) [address] [place] [address] Platelet mean volume (Bld) [Entitic vol] 10.0 fL Normal 8.5-12.2 [facility] Comment on above: Performed By: #### T YPEC #### [facility] (DEFAULT) [address] [place] [address] Platelets (Bld) [#/Vol] 222 10*3/uL Normal 150-393 [facility] Comment on above: Performed By: #### T YPEC #### [facility] (DEFAULT) [address] [place] [address] RBC (Bld) [#/Vol] 2.78 10*6/uL Low 3.91-5.04 [facility] Comment on above: Performed By: #### T YPEC #### [facility] (DEFAULT) [address] [place] [address] RBC Distribution 14.8 % Normal 10.8-14.9 [facility] Comment on above: Performed By: #### T YPEC #### [facility] (DEFAULT) [address] [place] [address] WBC (Bld) [#/Vol] 6.45 10*3/uL Normal 3.99-11.19 [facility] Comment on above: Performed By: #### T YPEC #### [facility] (DEFAULT) [address] [place] [address] CHEM 7 (LYTES,BUN,CREA,GLUC) on 02-09-2021 Anion gap [Moles/Vol] 9 mmol/L Normal 7-17 [facility] Comment on above: Performed By: #### C HM7, MGO, IPB #### [facility] (DEFAULT) [address] [place] [address] Chloride [Moles/Vol] 105 mmol/L Normal 98-108 [facility] Comment on above: Performed By: #### C HM7, MGO, IPB #### [facility] (DEFAULT) [address] [place] [address] CO2 [Moles/Vol] 27 mmol/L Normal 22-30 [facility] Comment on above: Performed By: #### C HM7, MGO, IPB #### [facility] (DEFAULT) [address] [place] [address] Creatinine [Mass/Vol] 0.52 mg/dL Normal 0.50-1.20 [facility] Comment on above: Performed By: #### C HM7, MGO, IPB #### [facility] (DEFAULT) [address] [place] [address] EST GFR, >=60 Normal >=60 [facility] Comment on above: Performed By: #### Alice HM7, MGO, IPB #### [facility] (DEFAULT) [address] [place] [address] EST GFR,Non >=60 Normal >=60 [facility] Comment on above: Performed By: #### Alice HM7, MGO, IPB #### [facility] (DEFAULT) [address] [place] [address] Glucose [Mass/Vol] 80 mg/dL Normal 70-99 [facility] Comment on above: Performed By: #### C HM7, MGO, IPB #### [facility] (DEFAULT) [address] [place] [address] Osmolality [Osmolality] 288 mosm/kg Normal 278-305 [facility] Comment on above: Performed By: #### Alice HM7, MGO, IPB #### [facility] (DEFAULT) [address] [place] [address] Potassium [Moles/Vol] 3.9 mmol/L Normal 3.5-5.0 [facility] Comment on above: Performed By: #### Alice HM7, MGO, IPB #### [facility] (DEFAULT) [address] [place] [address] Sodium [Moles/Vol] 137 mmol/L Normal 133-143 [facility] Comment on above: Performed By: #### C HM7, MGO, IPB #### [facility] (DEFAULT) [address] [place] [address] Urea nitrogen [Mass/Vol] 18 mg/dL Normal 7-22 [facility] Comment on above: Performed By: #### C HM7, MGO, IPB #### [facility] (DEFAULT) [address] [place] [address] Urea nitrogen/Creatinine [Mass ratio] 35 mg/mg Normal [facility] Comment on above: Performed By: #### C HM7, MGO, IPB #### [facility] (DEFAULT) [address] [place] [address] CKon 02-09-2021 CK [Catalytic activity/Vol] 32 U/L Normal 30-184 [facility] Comment on above: Order Comment: While on Propofol. Performed By: #### C DAMIÁN MGO, IPB #### [facility] (DEFAULT) [address] [place] [address] IONIZED CALCIUM, INPATIENTon 02-09-2021 ICA 4.55 mg/dL Low 4.60-5.30 [facility] Comment on above: Performed By: #### I CA ####[facility] (DEFAULT)[address] [place], [place] [address] [address] MAGNESIUMon 02-09-2021 Magnesium [Mass/Vol] 1.7 mg/dL Normal 1.6-2.6 [facility] Comment on above: Performed By: #### C HM7, MGO, IPB #### [facility] (DEFAULT) [address] [place] [address] MRI SPINE CERVICAL WITH AND WITHOUT CONTRASTon [...] of the brainstem, may relate to meningitis. Normal [facility] MRI SPINE LUMBAR WITH AND WI THOUT [...] vertebral body. Degenerative changes are unchanged. Normal [facility] MRI SPINE THORACIC WITH AND WITHOUT CONTRASTon [...] may relate to pneumonia or atelectasis. Normal [facility] PHOSPHATE, INORGANICon 02-09 Phosphorous 3.6 mg/dL Normal 2.2-4.6 [facility] Comment on above: Performed By: #### C HM7, MGO, IPB #### [facility] (DEFAULT) [address] [place] [address] TRIGLYCERIDEon 02-09-2021 Triglyceride [Mass/Vol] 381 mg/dL High <150 [facility] Comment on above: Order Comment: While on Propofol. Result Comment: [<15 0 mg/dL: Desirable] [150-199 mg/dL: Borderline] [200-499 mg/dL: High] [>500 mg/dL: Very High] Performed By: #### C HM7, MGO, IPB #### [facility] (DEFAULT) [address] [place] [address] VANCRon 02-09-2021 Vancomycin Lvl (random) 24.2 mcg/mL Normal [facility] ([place]) Comment on above: Performed By: #### C BC, ADIFF, ANEU, FERR, FOL, MG, TSH, PHOS, B12, FES, PRALB, GFR, CMP #### [facility] [address] [place] [address] CBC,PLATELETSon 2021 Hematocrit (Bld) [Volume fraction] 24.9 % Low 34.9-44.3 [facility] Comment on above: Performed By: #### T YPEC #### [facility] (DEFAULT) [address] [place] [address] Hemoglobin (Bld) [Mass/Vol] 7.9 g/dL Low 11.4-15.2 [facility] Comment on above: Performed By: #### T YPEC #### [facility] (DEFAULT) [address] [place] [address] MCV (RBC) [Entitic vol] 95.8 fL Normal 79.6-97.7 [facility] Comment on above: Performed By: #### T YPEC #### [facility] (DEFAULT) [address] [place] [address] Mean Cell Hgb 30.4 pg Normal 25.9-33.9 [facility] Comment on above: Performed By: #### T YPEC #### [facility] (DEFAULT) [address] [address] Mean Cell Hgb Conc 31.7 g/dL Normal 31.4-35.9 [facility] Comment on above: Performed By: #### T YPEC #### [facility] (DEFAULT) [address] [address] Platelet mean volume (Bld) [Entitic vol] 10.0 fL Normal 8.5-12.2 [facility] Comment on above: Performed By: #### T YPEC #### [facility] (DEFAULT) [address] [address] Platelets (Bld) [#/Vol] 157 10*3/uL Normal 150-393 [facility] Comment on above: Performed By: #### T YPEC #### [facility] (DEFAULT) [address] [address] RBC (Bld) [#/Vol] 2.60 10*6/uL Low 3.91-5.04 [facility] Comment on above: Performed By: #### T YPEC #### [facility] (DEFAULT) [address] [address] RBC Distribution 14.8 % Normal 10.8-14.9 [facility] Comment on above: Performed By: #### T YPEC #### [facility] (DEFAULT) [address] [address] WBC (Bld) [#/Vol] 3.43 10*3/uL Low 3.99-11.19 [facility] Comment on above: Performed By: #### T YPEC #### [facility] (DEFAULT) [address] [address] CHEM 7 (LYTES,BUN,CREA,GLUC) on 2021 Anion gap [Moles/Vol] 9 mmol/L Normal 7-17 [facility] Comment on above: Performed By: #### T YPEC #### [facility] (DEFAULT) [address] [place] [address] Chloride [Moles/Vol] 106 mmol/L Normal 98-108 [facility] Comment on above: Performed By: #### T YPEC #### [facility] (DEFAULT) [address] [place] [address] CO2 [Moles/Vol] 27 mmol/L Normal 22-30 [facility] Comment on above: Performed By: #### T YPEC #### [facility] (DEFAULT) [address] [place] [address] Creatinine [Mass/Vol] 0.45 mg/dL Low 0.50-1.20 [facility] Comment on above: Performed By: #### T YPEC #### [facility] (DEFAULT) [address] [place] [address] EST GFR, >=60 Normal >=60 [facility] Comment on above: Performed By: #### T YPEC #### [facility] (DEFAULT) [address] [place] [address] EST GFR,Non >=60 Normal >=60 [facility] Comment on above: Performed By: #### T YPEC #### [facility] (DEFAULT) [address] [place] [address] Glucose [Mass/Vol] 104 mg/dL High 70-99 [facility] Comment on above: Performed By: #### T YPEC #### [facility] (DEFAULT) [address] [place] [address] Osmolality [Osmolality] 290 mosm/kg Normal 278-305 [facility] Comment on above: Performed By: #### T YPEC #### [facility] (DEFAULT) [address] [place] [address] Potassium [Moles/Vol] 3.7 mmol/L Normal 3.5-5.0 [facility] Comment on above: Performed By: #### T YPEC #### [facility] (DEFAULT) [address] [place] [address] Sodium [Moles/Vol] 138 mmol/L Normal 133-143 [facility] Comment on above: Performed By: #### T YPEC #### [facility] (DEFAULT) [address] [place] [address] Urea nitrogen [Mass/Vol] 15 mg/dL Normal 7-22 [facility] Comment on above: Performed By: #### T YPEC #### [facility] (DEFAULT) [address] [place] [address] Urea nitrogen/Creatinine [Mass ratio] 33 mg/mg Normal [facility] Comment on above: Performed By: #### T YPEC #### [facility] (DEFAULT) [address] [place] [address] IONIZED CALCIUM, INPATIENTon 2021 ICA 4.55 mg/dL Low 4.60-5.30 [facility] Comment on above: Performed By: #### T YPEC #### [facility] (DEFAULT) [address] [place] [address] MAGNESIUMon 2021 Magnesium [Mass/Vol] 1.6 mg/dL Normal 1.6-2.6 [facility] Comment on above: Performed By: #### T YPEC #### [facility] (DEFAULT) [address] [place] [address] PHOSPHATE, INORGANICon 02-08 Phosphorous 3.5 mg/dL Normal 2.2-4.6 [facility] Comment on above: Performed By: #### T YPEC #### [facility] (DEFAULT) [address] [place] [address] CBC,PLATELETSon 02-07-2021 Hematocrit (Bld) [Volume fraction] 24.5 % Low 34.9-44.3 [facility] Comment on above: Performed By: #### H EMO ####[facility] (DEFAULT)[address] [place] [address] Hemoglobin (Bld) [Mass/Vol] 7.7 g/dL Low 11.4-15.2 [facility] Comment on above: Performed By: #### H EMOGC ####[facility] (DEFAULT)[address] [place] [address] MCV (RBC) [Entitic vol] 94.2 fL Normal 79.6-97.7 [facility] Comment on above: Performed By: #### H EMOGC ####[facility] (DEFAULT)[address] [place] [address] Mean Cell Hgb 29.6 pg Normal 25.9-33.9 [facility] Comment on above: Performed By: #### H EMOGC ####[facility] (DEFAULT)[address] [place] [address] Mean Cell Hgb Conc 31.4 g/dL Normal 31.4-35.9 [facility] Comment on above: Performed By: #### H EMOGC ####[facility] (DEFAULT)[address] [place] [address] Platelet mean volume (Bld) [Entitic vol] 9.8 fL Normal 8.5-12.2 [facility] Comment on above: Performed By: #### H EMOGC ####[facility] (DEFAULT)[address] [place] [address] Platelets (Bld) [#/Vol] 163 10*3/uL Normal 150-393 [facility] Comment on above: Performed By: #### H EMOGC ####[facility] (DEFAULT)[address] [place] [address] RBC (Bld) [#/Vol] 2.60 10*6/uL Low 3.91-5.04 [facility] Comment on above: Performed By: #### H EMOGC ####[facility] (DEFAULT)[address] [place] [address] RBC Distribution 14.9 % Normal 10.8-14.9 [facility] Comment on above: Performed By: #### H EMO ####[facility] (DEFAULT)[address] [place] [address] WBC (Bld) [#/Vol] 3.25 10*3/uL Low 3.99-11.19 [facility] Comment on above: Performed By: #### H EMO ####[facility] (DEFAULT)[address] [place] [address] CHEM 7 (LYTES,BUN,CREA,GLUC) on 02-07-2021 Anion gap [Moles/Vol] 8 mmol/L Normal 7-17 [facility] Comment on above: Performed By: #### M KHALIDA BYNUM, CHM7 ####[facility] (DEFAULT)[address] [place] [address] Chloride [Moles/Vol] 104 mmol/L Normal 98-108 [facility] Comment on above: Performed By: #### KHALIDA GORDON, CHM7 ####[facility] (DEFAULT)[address] [place] [address] CO2 [Moles/Vol] 30 mmol/L Normal 22-30 [facility] Comment on above: Performed By: #### KHALIDA GORDON, CHM7 ####[facility] (DEFAULT)[address] [place] [address] Creatinine [Mass/Vol] 0.53 mg/dL Normal 0.50-1.20 [facility] Comment on above: Performed By: #### KHALIDA GORDON, CHM7 ####[facility] (DEFAULT)[address] [place] [address] EST GFR, >=60 Normal >=60 [facility] Comment on above: Performed By: #### M KHALIDA BYNUM, CHM7 ####[facility] (DEFAULT)[address] [place] [address] EST GFR,Non >=60 Normal >=60 [facility] Comment on above: Performed By: #### M KHALIDA BYNUM, CHM7 ####[facility] (DEFAULT)[address] [place] [address] Glucose [Mass/Vol] 102 mg/dL High 70-99 [facility] Comment on above: Performed By: #### M KHALIDA BYNUM, CHM7 ####[facility] (DEFAULT)[address] [place] [address] Osmolality [Osmolality] 289 mosm/kg Normal 278-305 [facility] Comment on above: Performed By: #### KHALIDA GORDON, CHM7 ####[facility] (DEFAULT)[address] [place] [address] Potassium [Moles/Vol] 3.7 mmol/L Normal 3.5-5.0 [facility] on above: Performed By: #### M KHALIDA BYNUM, CHM7 ####[facility] (DEFAULT)[address] [place] [address] Sodium [Moles/Vol] 138 mmol/L Normal 133-143 [facility] Comment on above: Performed By: #### KHALIDA GORDON, CHM7 ####[facility] (DEFAULT)[address] [place] [address] Urea nitrogen [Mass/Vol] 14 mg/dL Normal 7-22 [facility] Comment on above: Performed By: #### KHALIDA GORDON, CHM7 ####[facility] (DEFAULT)[address] [place] [address] Urea nitrogen/Creatinine [Mass ratio] 26 mg/mg Normal [facility] Comment on above: Performed By: #### M KHALIDA BYNUM CHM7 ####[facility] (DEFAULT)[address] [place] [address] IONIZED CALCIUM, INPATIENTon 02-07-2021 ICA 4.66 mg/dL Normal 4.60-5.30 [facility] Comment on above: Performed By: #### T YPEC #### [facility] (DEFAULT) [address] [place] [address] MAGNESIUMon 02-07-2021 Magnesium [Mass/Vol] 1.7 mg/dL Normal 1.6-2.6 [facility] Comment on above: Performed By: #### M KHALIDA BYNUM CHM7 ####[facility] (DEFAULT)[address] [address] NOVEL CORONAVIRUS PCRon 01-21 SARS-CoV-2 (COVID-19) RNA CHACE+probe Ql (Unsp spec) Not detected Normal NOT DETECTED [facility] Comment on above: Order Comment: Viral transport [...] for use by authorized laboratories. Result Comment: [facility] Negative results do not preclude [...] deteriorating. Performed By: #### T YPEC #### [facility] (DEFAULT) [address] [place] [address] 23870 PHOSPHATE, INORGANICon 02-07 Phosphorous 4.0 mg/dL Normal 2.2-4.6 [facility] Comment on above: Performed By: #### KHALIDA GORDON, CHM7 ####[facility] (DEFAULT)[address] [place] [address] 94670 VANCOMYCIN LEVEL, TROUGH ([place] E DRUG LEVEL)on 02-07-2021 Vancomycin, Trough 21.7 mcg/mL High Therapeut ic Range: 10.0-20.0 mcg/mL [facility] Comment on above: Order Comment: Pleas e draw level at specified interval PRIOR to next dose. Performed By: #### V ANCTR ####[facility] (DEFAULT)[address] [place] [address] 89774 CBC,PLATELETSon 02-06-2021 Hematocrit (Bld) [Volume fraction] 24.0 % Low 34.9-44.3 [facility] Comment on above: Performed By: #### HUMBERTO REESE IPB #### [facility] (DEFAULT) [address] [place] [address] 08478 Hemoglobin (Bld) [Mass/Vol] 7.6 g/dL Low 11.4-15.2 [facility] Comment on above: Performed By: #### HUMBERTO REESE IPB #### [facility] (DEFAULT) [address] [place] [address] 70693 MCV (RBC) [Entitic vol] 94.1 fL Normal 79.6-97.7 [facility] Comment on above: Performed By: #### HUMBERTO REESE IPB #### [facility] (DEFAULT) [address] [place] [address] 00685 Mean Cell Hgb 29.8 pg Normal 25.9-33.9 [facility] Comment on above: Performed By: #### HUMBERTO REESE, IPB #### [facility] (DEFAULT) [address] [place] [address] 30708 Mean Cell Hgb Conc 31.7 g/dL Normal 31.4-35.9 [facility] Comment on above: Performed By: #### Alice STEEL MGKiera, IPB #### [facility] (DEFAULT) [address] [place] [address] 93437 Platelet mean volume (Bld) [Entitic vol] 9.5 fL Normal 8.5-12.2 [facility] Comment on above: Performed By: #### Alice STEEL MGO, IPB #### [facility] [address] [place] [address] 21313 Platelets (Bld) [#/Vol] 167 10*3/uL Normal 150-393 [facility] Comment on above: Performed By: #### Alice STEEL MGO, IPB #### [facility] (DEFAULT) [address] [place] [address] 73701 RBC (Bld) [#/Vol] 2.55 10*6/uL Low 3.91-5.04 [facility] Comment on above: Performed By: #### Alice STEEL MGO, IPB #### [facility] (DEFAULT) [address] [place] [address] 55753 RBC Distribution 14.6 % Normal 10.8-14.9 [facility] Comment on above: Performed By: #### Alice HMSwapnil MGO, IPB #### [facility] (DEFAULT) [address] [place] [address] 22717 WBC (Bld) [#/Vol] 3.70 10*3/uL Low 3.99-11.19 [facility] Comment on above: Performed By: #### Alice STEEL MGO, IPB #### [facility] (DEFAULT) [address] [place] [address] 34478 CHEM 7 (LYTES,BUN,CREA,GLUC) on 02-06-2021 Anion gap [Moles/Vol] 9 mmol/L Normal 7-17 [facility] Comment on above: Performed By: #### C HM7, MGO, IPB #### [facility] (DEFAULT) [address] [place] [address] 95583 Chloride [Moles/Vol] 104 mmol/L Normal 98-108 [facility] Comment on above: Performed By: #### C HM7, MGO, IPB #### [facility] (DEFAULT) [address] [place] [address] 29147 CO2 [Moles/Vol] 29 mmol/L Normal 22-30 [facility] Comment on above: Performed By: #### C HM7, MGO, IPB #### [facility] (DEFAULT) [address] [place] [address] 14301 Creatinine [Mass/Vol] 0.60 mg/dL Normal 0.50-1.20 [facility] Comment on above: Performed By: #### Alice HMSwapnil, MGO, IPB #### [facility] (DEFAULT) [address] [place] [address] 74141 EST GFR, >=60 Normal >=60 [facility] Comment on above: Performed By: #### Alice STEEL MGO, IPB #### [facility] (DEFAULT) [address] [place] [address] 07852 EST GFR,Non >=60 Normal >=60 [facility] Comment on above: Performed By: #### Alice HM7, MGO, IPB #### [facility] (DEFAULT) [address] [place] [address] 42089 Glucose [Mass/Vol] 108 mg/dL High 70-99 [facility] Comment on above: Performed By: #### C HM7, MGO, IPB #### [facility] (DEFAULT) [address] [place] [address] 98600 Osmolality [Osmolality] 289 mosm/kg Normal 278-305 [facility] Comment on above: Performed By: #### Alice HM7, MGO, IPB #### [facility] (DEFAULT) [address] [place] [address] 23104 Potassium [Moles/Vol] 3.6 mmol/L Normal 3.5-5.0 [facility] Comment on above: Performed By: #### C HM7, MGO, IPB #### [facility] (DEFAULT) [address] [place] [address] Sodium [Moles/Vol] 138 mmol/L Normal 133-143 [facility] Comment on above: Performed By: #### C HM7, MGO, IPB #### [facility] (DEFAULT) [address] [place] [address] 45137 Urea nitrogen [Mass/Vol] 14 mg/dL Normal 7-22 [facility] Comment on above: Performed By: #### Alice HM7, MGO, IPB #### [facility] (DEFAULT) [address] [place] [address] 43834 Urea nitrogen/Creatinine [Mass ratio] 23 mg/mg Normal [facility] Comment on above: Performed By: #### Alice HM7, MGO, IPB #### [facility] (DEFAULT) [address] [place] [address] 46036 IONIZED CALCIUM, INPATIENTon 02-06-2021 ICA 4.58 mg/dL Low 4.60-5.30 [facility] Comment on above: Order Comment: If io nized calcium is less than or equal to 3.0 mg/dL, recheck ionized calcium 2 hours after replacement. Performed By: #### U [id number] #### [facility] (DEFAULT) [address] [place] [address] 26343 MAGNESIUMon 02-06-2021 Magnesium [Mass/Vol] 1.6 mg/dL Normal 1.6-2.6 [facility] Comment on above: Performed By: #### C HM7, MGO, IPB #### [facility] (DEFAULT) [address] [place] [address] 25526 PHOSPHATE, INORGANICon 02-06 Phosphorous 3.4 mg/dL Normal 2.2-4.6 [facility] Comment on above: Performed By: #### C HM7, MGO, IPB #### [facility] (DEFAULT) [address] [place] [address] 12245 CBC,PLATELETSon 02-05-2021 Hematocrit (Bld) [Volume fraction] 24.0 % Low 34.9-44.3 [facility] Comment on above: Performed By: #### U [id number] #### [facility] (DEFAULT) [address] [place] [address] 12749 Hemoglobin (Bld) [Mass/Vol] 7.8 g/dL Low 11.4-15.2 [facility] Comment on above: Performed By: #### U [id number] #### [facility] (DEFAULT) [address] [place] [address] 79821 MCV (RBC) [Entitic vol] 92.0 fL Normal 79.6-97.7 [facility] Comment on above: Performed By: #### U [id number] #### [facility] (DEFAULT) [address] [place] [address] 26025 Mean Cell Hgb 29.9 pg Normal 25.9-33.9 [facility] Comment on above: Performed By: #### U [id number] #### [facility] (DEFAULT) [address] [place] [address] 84540 Mean Cell Hgb Conc 32.5 g/dL Normal 31.4-35.9 [facility] Comment on above: Performed By: #### U [id number] #### [facility] (DEFAULT) [address] [place] [address] 56125 Platelet mean volume (Bld) [Entitic vol] 9.1 fL Normal 8.5-12.2 [facility] Comment on above: Performed By: #### U [id number] #### [facility] (DEFAULT) [address] [place] [address] 97538 Platelets (Bld) [#/Vol] 174 10*3/uL Normal 150-393 [facility] Comment on above: Performed By: #### U [id number] #### [facility] (DEFAULT) [address] [place] [address] 62738 RBC (Bld) [#/Vol] 2.61 10*6/uL Low 3.91-5.04 [facility] Comment on above: Performed By: #### U [id number] #### [facility] (DEFAULT) [address] [place] [address] 68261 RBC Distribution 14.6 % Normal 10.8-14.9 [facility] Comment on above: Performed By: #### U [id number] #### [facility] (DEFAULT) [address] [place] [address] 92001 WBC (Bld) [#/Vol] 4.21 10*3/uL Normal 3.99-11.19 [facility] Comment on above: Performed By: #### U [id number] #### [facility] (DEFAULT) [address] [place] [address] 40273 CHEM 7 (LYTES,BUN,CREA,GLUC) on 02-05-2021 Anion gap [Moles/Vol] 9 mmol/L Normal 7-17 [facility] Comment on above: Performed By: #### T YPEC #### [facility] (DEFAULT) [address] [place] [address] 97637 Chloride [Moles/Vol] 104 mmol/L Normal 98-108 [facility] Comment on above: Performed By: #### T YPEC #### [facility] (DEFAULT) [address] [place] [address] 95892 CO2 [Moles/Vol] 27 mmol/L Normal 22-30 [facility] Comment on above: Performed By: #### T YPEC #### [facility] (DEFAULT) [address] [place] [address] 48021 Creatinine [Mass/Vol] 0.56 mg/dL Normal 0.50-1.20 [facility] Comment on above: Performed By: #### T YPEC #### [facility] (DEFAULT) [address] [place] [address] 56394 EST GFR, >=60 Normal >=60 [facility] Comment on above: Performed By: #### T YPEC #### [facility] (DEFAULT) [address] [place] [address] 01495 EST GFR,Non >=60 Normal >=60 [facility] Comment on above: Performed By: #### T YPEC #### [facility] (DEFAULT) [address] [place] [address] 20827 Glucose [Mass/Vol] 115 mg/dL High 70-99 [facility] Comment on above: Performed By: #### T YPEC #### [facility] (DEFAULT) [address] [place] [address] 93860 Osmolality [Osmolality] 286 mosm/kg Normal 278-305 [facility] Comment on above: Performed By: #### T YPEC #### [facility] (DEFAULT) [address] [place] [address] 70800 Potassium [Moles/Vol] 3.0 mmol/L Low 3.5-5.0 [facility] Comment on above: Performed By: #### T YPEC #### [facility] (DEFAULT) [address] [place] [address] 78585 Sodium [Moles/Vol] 137 mmol/L Normal 133-143 [facility] Comment on above: Performed By: #### T YPEC #### [facility] (DEFAULT) [address] [place] [address] 33230 Urea nitrogen [Mass/Vol] 11 mg/dL Normal 7-22 [facility] Comment on above: Performed By: #### T YPEC #### [facility] (DEFAULT) [address] [place] [address] 87328 Urea nitrogen/Creatinine [Mass ratio] 20 mg/mg Normal [facility] Comment on above: Performed By: #### T YPEC #### [facility] (DEFAULT) [address] [place] [address] 09696 IONIZED CALCIUM, INPATIENTon 02-05-2021 ICA 4.43 mg/dL Low 4.60-5.30 [facility] Comment on above: Performed By: #### T YPEC #### [facility] (DEFAULT) [address] [place] [address] 97018 MAGNESIUMon 02-05-2021 Magnesium [Mass/Vol] 1.3 mg/dL Low 1.6-2.6 [facility] Comment on above: Performed By: #### T YPEC #### [facility] (DEFAULT) [address] [place] [address] 21307 NOVEL CORONAVIRUS PCRon 01-21 SARS-CoV-2 (COVID-19) RNA CHACE+probe Ql (Unsp spec) Not detected Normal NOT DETECTED [facility] Comment on above: Order Comment: Viral transport [...] for use by authorized laboratories. Result Comment: [facility] Negative results do not preclude [...] deteriorating. Performed By: #### T YPEC #### [facility] (DEFAULT) [address] [place] [address] 65734 PHOSPHATE, INORGANICon 02-05 Phosphorous 2.7 mg/dL Normal 2.2-4.6 [facility] Comment on above: Performed By: #### T YPEC #### [facility] (DEFAULT) [address] [place] [address] 71380 CBC,PLATELETSon 02-04-2021 Hematocrit (Bld) [Volume fraction] 25.2 % Low 34.9-44.3 [facility] Comment on above: Performed By: #### U [id number] #### [facility] (DEFAULT) [address] [address] Hemoglobin (Bld) [Mass/Vol] 8.1 g/dL Low 11.4-15.2 [facility] Comment on above: Performed By: #### U [id number] #### [facility] (DEFAULT) [address] 19643 MCV (RBC) [Entitic vol] 94.0 fL Normal 79.6-97.7 [facility] Comment on above: Performed By: #### U [id number] #### [facility] (DEFAULT) [address] 17457 Mean Cell Hgb 30.2 pg Normal 25.9-33.9 [facility] Comment on above: Performed By: #### U [id number] #### [facility] (DEFAULT) [address] 04600 Mean Cell Hgb Conc 32.1 g/dL Normal 31.4-35.9 [facility] Comment on above: Performed By: #### U [id number] #### [facility] (DEFAULT) [address] [address]351 Platelet mean volume (Bld) [Entitic vol] 9.0 fL Normal 8.5-12.2 [facility] Comment on above: Performed By: #### U [id number] #### [facility] (DEFAULT) [address] [place] [address] 50351 Platelets (Bld) [#/Vol] 181 10*3/uL Normal 150-393 [facility] Comment on above: Performed By: #### U [id number] #### [facility] (DEFAULT) [address] [place] [address] 25477 RBC (Bld) [#/Vol] 2.68 10*6/uL Low 3.91-5.04 [facility] Comment on above: Performed By: #### U [id number] #### [facility] (DEFAULT) [address] [place] [address] 48290 RBC Distribution 14.7 % Normal 10.8-14.9 [facility] Comment on above: Performed By: #### U [id number] #### [facility] (DEFAULT) [address] [place] [address] 40413 WBC (Bld) [#/Vol] 4.51 10*3/uL Normal 3.99-11.19 [facility] Comment on above: Performed By: #### U [id number] #### [facility] (DEFAULT) [address] [place] [address] 58207 CHEM 7 (LYTES,BUN,CREA,GLUC) on 02-04-2021 Anion gap [Moles/Vol] 12 mmol/L Normal 7-17 [facility] Comment on above: Performed By: #### M NORM BYNUM, IPB ####[facility] (DEFAULT)[address] [place] [address] 68271 Chloride [Moles/Vol] 101 mmol/L Normal 98-108 [facility] Comment on above: Performed By: #### M NORM BYNUM, IPB ####[facility] (DEFAULT)[address] [place] [address] 14519 CO2 [Moles/Vol] 25 mmol/L Normal 22-30 [facility] Comment on above: Performed By: #### NORM GORDON, IPB ####[facility] (DEFAULT)[address] [place] [address] Creatinine [Mass/Vol] 0.61 mg/dL Normal 0.50-1.20 [facility] Comment on above: Performed By: #### NORM GORDON, IPB ####[facility] (DEFAULT)[address] [place] [address] EST GFR, >=60 Normal >=60 [facility] Comment on above: Performed By: #### NORM GORDON, IPB ####[facility] (DEFAULT)[address] [place] [address] EST GFR,Non >=60 Normal >=60 [facility] Comment on above: Performed By: #### NORM GORDON, IPB ####[facility] (DEFAULT)[address] [place] [address] Glucose [Mass/Vol] 70 mg/dL Normal 70-99 [facility] Comment on above: Performed By: #### NORM GORDON, IPB ####[facility] (DEFAULT)[address] [place] [address] Osmolality [Osmolality] 280 mosm/kg Normal 278-305 [facility] Comment on above: Performed By: #### NORM GORDON, IPB ####[facility] (DEFAULT)[address] [place] [address] Potassium [Moles/Vol] 3.3 mmol/L Low 3.5-5.0 [facility] Comment on above: Performed By: #### NORM GORDON, IPB ####[facility] (DEFAULT)[address] [place] [address] Sodium [Moles/Vol] 135 mmol/L Normal 133-143 [facility] Comment on above: Performed By: #### NORM GORDON, IPB ####[facility] (DEFAULT)[address] [place] [address] 92293 Urea nitrogen [Mass/Vol] 12 mg/dL Normal 7-22 [facility] Comment on above: Performed By: #### M NORM BYNUM, IPB ####[facility] (DEFAULT)[address] [place] [address] 14142 Urea nitrogen/Creatinine [Mass ratio] 20 mg/mg Normal [facility] Comment on above: Performed By: #### M NORM BYNUM, IPB ####[facility] (DEFAULT)[address] [place] [address] 46145 IONIZED CALCIUM, INPATIENTon 02-04-2021 ICA 4.41 mg/dL Low 4.60-5.30 [facility] Comment on above: Performed By: #### X M #### [facility] (DEFAULT) [address] [place] [address] 46347 MAGNESIUMon 02-04-2021 Magnesium [Mass/Vol] 1.4 mg/dL Low 1.6-2.6 [facility] Comment on above: Performed By: #### G EN #### [facility] (DEFAULT) [address] [place] [address] 99781 PHOSPHATE, INORGANICon 02-04 Phosphorous 3.4 mg/dL Normal 2.2-4.6 [facility] Comment on above: Performed By: #### G EN #### [facility] (DEFAULT) [address] [place] [address] 97570 CBC,PLATELETSon 02-03-2021 Hematocrit (Bld) [Volume fraction] 24.5 % Low 34.9-44.3 [facility] Comment on above: Performed By: #### C HM7, MGO, IPB #### [facility] (DEFAULT) [address] [place] [address] 57484 Hemoglobin (Bld) [Mass/Vol] 7.6 g/dL Low 11.4-15.2 [facility] Comment on above: Performed By: #### Alice HM7, MGO, IPB #### [facility] (DEFAULT) [address] [place] [address] 31319 MCV (RBC) [Entitic vol] 94.6 fL Normal 79.6-97.7 [facility] Comment on above: Performed By: #### Alice HMSwapnil, MGO, IPB #### [facility] (DEFAULT) [address] [place] [address] 08830 Mean Cell Hgb 29.3 pg Normal 25.9-33.9 [facility] Comment on above: Performed By: #### Alice TSEEL MGO, IPB #### [facility] (DEFAULT) [address] [place] [address] 42974 Mean Cell Hgb Conc 31.0 g/dL Low 31.4-35.9 [facility] Comment on above: Performed By: #### Alice HMSwapnil, MGO, IPB #### [facility] (DEFAULT) [address] [place] [address] 16695 Platelet mean volume (Bld) [Entitic vol] 8.9 fL Normal 8.5-12.2 [facility] Comment on above: Performed By: #### Alice HM7, MGO, IPB #### [facility] (DEFAULT) [address] [place] [address] 50423 Platelets (Bld) [#/Vol] 195 10*3/uL Normal 150-393 [facility] Comment on above: Performed By: #### Alice HM7, MGO, IPB #### [facility] (DEFAULT) [address] [place] [address] 94644 RBC (Bld) [#/Vol] 2.59 10*6/uL Low 3.91-5.04 [facility] Comment on above: Performed By: #### Alice HM7, MGO, IPB #### [facility] (DEFAULT) [address] [place] [address] 01786 RBC Distribution 15.6 % High 10.8-14.9 [facility] Comment on above: Performed By: #### C HM7, MGO, IPB #### [facility] (DEFAULT) [address] [place] [address] 45798 WBC (Bld) [#/Vol] 5.16 10*3/uL Normal 3.99-11.19 [facility] Comment on above: Performed By: #### Alice HM7, MGO, IPB #### [facility] (DEFAULT) [address] [place] [address] 09733 CHEM 7 (LYTES,BUN,CREA,GLUC) on 02-03-2021 Anion gap [Moles/Vol] 12 mmol/L Normal 7-17 [facility] Comment on above: Performed By: #### Alice HM7, MGO, IPB #### [facility] (DEFAULT) [address] [place] [address] 09527 Chloride [Moles/Vol] 106 mmol/L Normal 98-108 [facility] Comment on above: Performed By: #### Alice HM7, MGO, IPB #### [facility] (DEFAULT) [address] [place] [address] 23566 CO2 [Moles/Vol] 25 mmol/L Normal 22-30 [facility] Comment on above: Performed By: #### Alice HM7, MGO, IPB #### [facility] (DEFAULT) [address] [place] [address] 38296 Creatinine [Mass/Vol] 0.62 mg/dL Normal 0.50-1.20 [facility] Comment on above: Performed By: #### Alice HM7, MGO, IPB #### [facility] (DEFAULT) [address] [place] [address] 60616 EST GFR, >=60 Normal >=60 [facility] Comment on above: Performed By: #### Alice HM7, MGO, IPB #### [facility] (DEFAULT) [address] [place] [address] 93050 EST GFR,Non >=60 Normal >=60 [facility] Comment on above: Performed By: #### Alice STEEL MGO, IPB #### [facility] (DEFAULT) [address] [place] [address] 11296 Glucose [Mass/Vol] 70 mg/dL Normal 70-99 [facility] Comment on above: Performed By: #### Alice HM7, MGO, IPB #### [facility] (DEFAULT) [address] [place] [address] 52312 Osmolality [Osmolality] 289 mosm/kg Normal 278-305 [facility] Comment on above: Performed By: #### Alice HM7 MGO, IPB #### [facility] (DEFAULT) [address] [place] [address] 89807 Potassium [Moles/Vol] 3.4 mmol/L Low 3.5-5.0 [facility] Comment on above: Performed By: #### Alice HM7, MGO, IPB #### [facility] (DEFAULT) [address] [place] [address] 47384 Sodium [Moles/Vol] 140 mmol/L Normal 133-143 [facility] Comment on above: Performed By: #### Alice HM7, MGO, IPB #### [facility] (DEFAULT) [address] [place] [address] 00422 Urea nitrogen [Mass/Vol] 12 mg/dL Normal 7-22 [facility] Comment on above: Performed By: #### Alice HM7, MGO, IPB #### [facility] (DEFAULT) [address] [place] [address] 42522 Urea nitrogen/Creatinine [Mass ratio] 19 mg/mg Normal [facility] Comment on above: Performed By: #### Alice HM7, MGO, IPB #### [facility] (DEFAULT) [address] [place] [address] 77773 HIGH SENSITIVITY TROPONIN I - SINGLE ORDERon 02-03-2021 hs-Troponin I 3 ng/L Normal <34 [facility] Comment on above: Order Comment: Acute Coronary Syndrome (ACS): Initial Evaluation and Management:[email or web address]/Documents/Guide lines/Acute%20Coronary%20Syndrome.pdf#search=troponin Performed By: #### U [id number] #### [facility] (DEFAULT) [address] [place] [address] INSERTION CVC TUNNELEDon INSERTION CVC TUNNELED EXAM: IR INSERTION CVC TUNNELED, 02/03/2021 10:43 AM 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 Moderate Sedation: I performed Moderate Sedation which included the presence of a nurse that assisted in monitoring the patients level of consciousness and physiological status. After administration of sedative medication(s), I spent 35 minutes of continuous gebu-my-nbtt time with the patient. COMPARISON: No prior [...] Rad Dose: 4 Rad Dose Measurement: mGy Holla@Mes Event Details User 9:36 AM 02/03/21 Timeout: [...] Route: Intraveno (more content not included)... Normal [facility] IONIZED CALCIUM, INPATIENTon 02-03-2021 ICA 4.29 mg/dL Low 4.60-5.30 [facility] Comment on above: Performed By: #### C HM7, MGO, IPB #### [facility] (DEFAULT) [address] [address] MAGNESIUMon 02-03-2021 Magnesium [Mass/Vol] 1.7 mg/dL Normal 1.6-2.6 [facility] Comment on above: Performed By: #### C HM7, MGO, IPB #### [facility] (DEFAULT) [address] [address] PHOSPHATE, INORGANICon 02-03 Phosphorous 3.4 mg/dL Normal 2.2-4.6 [facility] Comment on above: Performed By: #### C HUMBERTO STEEL IPB #### [facility] (DEFAULT) [address] [place] [address] XR CHEST PORTABLEon 02-04-20 XR CHEST PORTABLE [...] likely represents left lower lobe pneumonia. Normal [facility] CBC,PLATELETSon 02-02-2021 Hematocrit (Bld) [Volume fraction] 24.6 % Low 34.9-44.3 [facility] Comment on above: Performed By: #### T YPEC #### [facility] (DEFAULT) [address] [place] [address] Hemoglobin (Bld) [Mass/Vol] 7.8 g/dL Low 11.4-15.2 [facility] Comment on above: Performed By: #### T YPEC #### [facility] (DEFAULT) [address] [place] [address] MCV (RBC) [Entitic vol] 94.3 fL Normal 79.6-97.7 [facility] Comment on above: Performed By: #### T YPEC #### [facility] (DEFAULT) [address] [address] Mean Cell Hgb 29.9 pg Normal 25.9-33.9 [facility] Comment on above: Performed By: #### T YPEC #### [facility] (DEFAULT) [address] [address] Mean Cell Hgb Conc 31.7 g/dL Normal 31.4-35.9 [facility] Comment on above: Performed By: #### T YPEC #### [facility] (DEFAULT) [address] [address] Platelet mean volume (Bld) [Entitic vol] 9.2 fL Normal 8.5-12.2 [facility] Comment on above: Performed By: #### T YPEC #### [facility] (DEFAULT) [address] [address] Platelets (Bld) [#/Vol] 200 10*3/uL Normal 150-393 [facility] Comment on above: Performed By: #### T YPEC #### [facility] (DEFAULT) [address] [address] RBC (Bld) [#/Vol] 2.61 10*6/uL Low 3.91-5.04 [facility] Comment on above: Performed By: #### T YPEC #### [facility] (DEFAULT) [address] [address] RBC Distribution 16.3 % High 10.8-14.9 [facility] Comment on above: Performed By: #### T YPEC #### [facility] (DEFAULT) [address] [address] WBC (Bld) [#/Vol] 4.68 10*3/uL Normal 3.99-11.19 [facility] Comment on above: Performed By: #### T YPEC #### [facility] (DEFAULT) [address] [address] CHEM 7 (LYTES,BUN,CREA,GLUC) on 02-02-2021 Anion gap [Moles/Vol] 11 mmol/L Normal 7-17 [facility] Comment on above: Performed By: #### C HM7, MGO, IPB #### [facility] (DEFAULT) [address] [place] [address] Chloride [Moles/Vol] 108 mmol/L Normal 98-108 [facility] Comment on above: Performed By: #### C HM7, MGO, IPB #### [facility] (DEFAULT) [address] [place] [address] CO2 [Moles/Vol] 27 mmol/L Normal 22-30 [facility] Comment on above: Performed By: #### C HM7, MGO, IPB #### [facility] (DEFAULT) [address] [place] [address] Creatinine [Mass/Vol] 0.69 mg/dL Normal 0.50-1.20 [facility] Comment on above: Performed By: #### C HM7, MGO, IPB #### [facility] (DEFAULT) [address] [place] [address] EST GFR, >=60 Normal >=60 [facility] Comment on above: Performed By: #### C HM7, MGO, IPB #### [facility] (DEFAULT) [address] [place] [address] EST GFR,Non >=60 Normal >=60 [facility] Comment on above: Performed By: #### C HM7, MGO, IPB #### [facility] (DEFAULT) [address] [place] [address] Glucose [Mass/Vol] 81 mg/dL Normal 70-99 [facility] Comment on above: Performed By: #### C HM7, MGO, IPB #### [facility] (DEFAULT) [address] [place] [address] Osmolality [Osmolality] 295 mosm/kg Normal 278-305 [facility] Comment on above: Performed By: #### Alice HM7, MGO, IPB #### [facility] (DEFAULT) [address] [place] [address] Potassium [Moles/Vol] 3.7 mmol/L Normal 3.5-5.0 [facility] Comment on above: Performed By: #### Alice HM7, MGO, IPB #### [facility] (DEFAULT) [address] [place] [address] Sodium [Moles/Vol] 142 mmol/L Normal 133-143 [facility] Comment on above: Performed By: #### Alice HM7, MGO, IPB #### [facility] (DEFAULT) [address] [place] [address] Urea nitrogen [Mass/Vol] 13 mg/dL Normal 7-22 [facility] Comment on above: Performed By: #### Alice HM7, MGO, IPB #### [facility] (DEFAULT) [address] [place] [address] Urea nitrogen/Creatinine [Mass ratio] 19 mg/mg Normal [facility] Comment on above: Performed By: #### Alice HM7, MGO, IPB #### [facility] (DEFAULT) [address] [place] [address] IONIZED CALCIUM, INPATIENTon 02-02-2021 ICA 4.61 mg/dL Normal 4.60-5.30 [facility] Comment on above: Performed By: #### T YPEC #### [facility] (DEFAULT) [address] [place] [address] MAGNESIUMon 02-02-2021 Magnesium [Mass/Vol] 1.9 mg/dL Normal 1.6-2.6 [facility] Comment on above: Performed By: #### Alice HM7, MGO, IPB #### [facility] (DEFAULT) [address] [place] [address] PHOSPHATE, INORGANICon 02-02 Phosphorous 4.4 mg/dL Normal 2.2-4.6 [facility] Comment on above: Performed By: #### C HM7, MGO, IPB #### [facility] (DEFAULT) [address] [address] CBC,PLATELETSon 02-01-2021 Hematocrit (Bld) [Volume fraction] 25.4 % Low 34.9-44.3 [facility] Comment on above: Performed By: #### T YPEC #### [facility] (DEFAULT) [address] [address] Hemoglobin (Bld) [Mass/Vol] 8.1 g/dL Low 11.4-15.2 [facility] Comment on above: Performed By: #### T YPEC #### [facility] (DEFAULT) [address] [address] MCV (RBC) [Entitic vol] 95.1 fL Normal 79.6-97.7 [facility] Comment on above: Result Comment: Resu lts inconsistent with previous results Performed By: #### T YPEC #### [facility] (DEFAULT) [address] [address] Mean Cell Hgb 30.3 pg Normal 25.9-33.9 [facility] Comment on above: Performed By: #### T YPEC #### [facility] (DEFAULT) [address] [address] Mean Cell Hgb Conc 31.9 g/dL Normal 31.4-35.9 [facility] Comment on above: Performed By: #### T YPEC #### [facility] (DEFAULT) [address] [address] Platelet mean volume (Bld) [Entitic vol] 8.9 fL Normal 8.5-12.2 [facility] Comment on above: Performed By: #### T YPEC #### [facility] (DEFAULT) [address] [address] Platelets (Bld) [#/Vol] 320 10*3/uL Normal 150-393 [facility] Comment on above: Performed By: #### T YPEC #### [facility] (DEFAULT) [address] [place] [address] RBC (Bld) [#/Vol] 2.67 10*6/uL Low 3.91-5.04 [facility] Comment on above: Performed By: #### T YPEC #### [facility] (DEFAULT) [address] [place] [address] RBC Distribution 15.5 % High 10.8-14.9 [facility] Comment on above: Performed By: #### T YPEC #### [facility] (DEFAULT) [address] [address] WBC (Bld) [#/Vol] 8.27 10*3/uL Normal 3.99-11.19 [facility] Comment on above: Performed By: #### T YPEC #### [facility] (DEFAULT) [address] [place] [address] CHEM 7 (LYTES,BUN,CREA,GLUC) on 02-01-2021 Anion gap [Moles/Vol] 13 mmol/L Normal 7-17 [facility] Comment on above: Performed By: #### T YPEC #### [facility] (DEFAULT) [address] [place] [address] Chloride [Moles/Vol] 106 mmol/L Normal 98-108 [facility] Comment on above: Performed By: #### T YPEC #### [facility] (DEFAULT) [address] [place] [address] CO2 [Moles/Vol] 27 mmol/L Normal 22-30 [facility] Comment on above: Performed By: #### T YPEC #### [facility] (DEFAULT) [address] [place] [address] Creatinine [Mass/Vol] 0.65 mg/dL Normal 0.50-1.20 [facility] Comment on above: Performed By: #### T YPEC #### [facility] (DEFAULT) [address] [address] EST GFR, >=60 Normal >=60 [facility] Comment on above: Performed By: #### T YPEC #### [facility] (DEFAULT) [address] [address] EST GFR,Non >=60 Normal >=60 [facility] Comment on above: Performed By: #### T YPEC #### [facility] (DEFAULT) [address] [address] Glucose [Mass/Vol] 121 mg/dL High 70-99 [facility] Comment on above: Performed By: #### T YPEC #### [facility] (DEFAULT) [address] [address] Osmolality [Osmolality] 298 mosm/kg Normal 278-305 [facility] Comment on above: Performed By: #### T YPEC #### [facility] (DEFAULT) [address] [address] Potassium [Moles/Vol] 3.5 mmol/L Normal 3.5-5.0 [facility] Comment on above: Performed By: #### T YPEC #### [facility] (DEFAULT) [address] [address] Sodium [Moles/Vol] 142 mmol/L Normal 133-143 [facility] Comment on above: Performed By: #### T YPEC #### [facility] (DEFAULT) [address] [address] Urea nitrogen [Mass/Vol] 15 mg/dL Normal 7-22 [facility] Comment on above: Performed By: #### T YPEC #### [facility] (DEFAULT) [address] [address] Urea nitrogen/Creatinine [Mass ratio] 23 mg/mg Normal [facility] Comment on above: Performed By: #### T YPEC #### [facility] (DEFAULT) [address] [place] [address] CKon 02-01-2021 CK [Catalytic activity/Vol] 10 U/L Low 30-184 [facility] Comment on above: Order Comment: While on Propofol. Performed By: #### T YPEC #### [facility] (DEFAULT) [address] [place] [address] CT CHEST WITH CONTRAST[address] CHEST WITH CONTRAST EXAM: CT CHEST [...] No mediastinal mass or fluid collection. Normal [facility] HEMOGLOBIN & HEMATOCRITon Hematocrit (Bld) [Volume fraction] 24.3 % Low 34.9-44.3 [facility] Comment on above: Performed By: #### G GANESH #### [facility] (DEFAULT) [address] [place] [address] Hemoglobin (Bld) [Mass/Vol] 7.6 g/dL Low 11.4-15.2 [facility] Comment on above: Performed By: #### G GANESH #### [facility] (DEFAULT) [address] [place] [address] IONIZED CALCIUM, INPATIENTon 02-01-2021 ICA 4.54 mg/dL Low 4.60-5.30 [facility] Comment on above: Performed By: #### T YPEC #### [facility] (DEFAULT) [address] [place] [address] MAGNESIUMon 02-01-2021 Magnesium [Mass/Vol] 2.2 mg/dL Normal 1.6-2.6 [facility] Comment on above: Performed By: #### T YPEC #### [facility] (DEFAULT) [address] [place] [address] PHOSPHATE, INORGANICon 02-01 Phosphorous 5.2 mg/dL High 2.2-4.6 [facility] Comment on above: Performed By: #### T YPEC #### [facility] (DEFAULT) [address] [place] [address] PT,INR,PTTon 02-01-2021 aPTT Coag (Bld) [Time] 38.1 s High 24.0-34.3 [facility] Comment on above: Performed By: #### T YPEC #### [facility] (DEFAULT) [address] [place] [address] INR Coag (PPP) [Relative time] 1.3 {INR} High 0.9-1.1 [facility] Comment on above: Performed By: #### T YPEC #### [facility] (DEFAULT) [address] [place] [address] PT Coag (PPP) [Time] 15.9 s High 11.9-14.2 [facility] Comment on above: Performed By: #### T YPEC #### [facility] (DEFAULT) [address] [place] [address] TRIGLYCERIDEon 02-01-2021 Triglyceride [Mass/Vol] 96 mg/dL Normal <150 [facility] Comment on above: Order Comment: While on Propofol. Result Comment: [<15 0 mg/dL: Desirable] [150-199 mg/dL: Borderline] [200-499 mg/dL: High] [>500 mg/dL: Very High] Performed By: #### T YPEC #### [facility] (DEFAULT) [address] [place] [address] TYPE AND SCREENon 02-01-2021 ABO/RH(D) TYPE Negative Normal [facility] Comment on above: Result Comment: @09/12 06:59 by JNN: Performed By: #### T YPEC #### [facility] (DEFAULT) [address] [place] [address] URINALYSIS REFLEX TO CULTURE PERFORMABLEon 02-01-2021 Appearance (U) Clear Normal Clear [facility] Comment on above: Performed By: #### U [id number] #### [facility] (DEFAULT) [address] [place] [address] Bacteria ABSENT Normal ABSENT [facility] Comment on above: Performed By: #### U [id number] #### [facility] (DEFAULT) [address] [place] [address] Blood Urine Large Abnormal Negative [facility] Comment on above: Performed By: #### U [id number] #### [facility] (DEFAULT) [address] [place] [address] Color (U) Yellow Normal Yellow [facility] Comment on above: Performed By: #### U [id number] #### [facility] (DEFAULT) [address] [place] [address] Glucose Ql (U) Negative Normal Negative [facility] Comment on above: Performed By: #### U [id number] #### [facility] (DEFAULT) [address] [place] [address] Ketones Ql (U) Negative Normal Negative [facility] Comment on above: Performed By: #### U [id number] #### [facility] (DEFAULT) [address] [place] [address] Leukocyte esterase Test strip Ql (U) Moderate Abnormal Negative [facility] Comment on above: Performed By: #### U [id number] #### [facility] (DEFAULT) [address] [place] [address] Nitrites Urine Negative Normal Negative [facility] Comment on above: Performed By: #### U [id number] #### [facility] (DEFAULT) [address] [place] [address] pH (U) 6.5 [pH] Normal 5.0-7.0 [facility] Comment on above: Performed By: #### U [id number] #### [facility] (DEFAULT) [address] [place] [address] Protein Urine Trace Abnormal Negative [facility] Comment on above: Performed By: #### U [id number] #### [facility] (DEFAULT) [address] [place] [address] RBC Urine 6-9 Abnormal 0-2 [facility] Comment on above: Performed By: #### U [id number] #### [facility] (DEFAULT) [address] [place] [address] Specific [place] Urine 1.010 Normal 1.001-1.035 [facility] Comment on above: Performed By: #### U [id number] #### [facility] (DEFAULT) [address] [address] Squamous/Epithelial Cells 6-8/hpf = 3+ Abnormal 1/hpf = 1+, 2-5/hpf = 2+, 0/hpf = 0+, ABSENT [facility] Comment on above: Performed By: #### U [id number] #### [facility] (DEFAULT) [address] [address] Urobilinogen Urine 1.0 E.U./dL Normal 0.2-1.0 [facility] Comment on above: Performed By: #### U [id number] #### [facility] (DEFAULT) [address] [address] WBC LM.HPF (Urine sed) [#/Area] /[HPF] Abnormal 0-5 [facility] Comment on above: Performed By: #### U [id number] #### [facility] (DEFAULT) [address] [address] Yeast/Fungi PRESENT Abnormal ABSENT [facility] Comment on above: Performed By: #### U [id number] #### [facility] (DEFAULT) [address] [address] URINE CULTUREon 02-01-2021 Bacteria identified Cx Nom (U) Normal [facility] Comment on above: Order Comment: Peguero top vacutainer. Urine must be to the fill line to process (4mls). If minimum volume, send urine in a yellow top vacutainer tube.Identification was performed on the MALDI-TOF mass spectrometer Biotyper using the FDA, lab-developed, or RUO libraries. The performance characteristics of the lab-developed and RUO libraries were determined by [facility] at [facility]. They have not been cleared or approved by the FDA. The laboratory is regulated under CLIA as qualified to perform high-complexity testing. This test is used for clinical purposes. It should not be regarded as investigational or for research. Result Comment: Grow 62ANDIDA TROPICALISCANDIDA TROPICALIS 10,000-50,000 CFU/mL Ban tropicalis Performed By: #### T YPEC #### [facility] (DEFAULT) [address] [place] [address] XR CHEST PORTABLEon 02-02-20 XR CHEST PORTABLE EXAM: XR CHEST RUSSEL RUBIO, 02/01/2021 16:41 PM COMPARISON: Compared to prior [...] opacities in the left lower lung. Normal [facility] BLOOD CULTUREon 01-31-2021 Bacteria identified Cx Nom (Unsp spec) NO GROWTH DAY 5 OF 5 Normal [facility] Comment on above: Order Comment: 2 [...] Performed By: #### T YPEC #### [facility] (DEFAULT) [address] [place] [address] Bacteria identified Cx Nom (Unsp spec) NO GROWTH DAY 5 OF 5 Normal [facility] Comment on above: Order Comment: 2 [...] Performed By: #### T YPEC #### [facility] (DEFAULT) [address] [place] [address] CBC,PLATELETSon 01-31-2021 Hematocrit (Bld) [Volume fraction] 28.1 % Low 34.9-44.3 [facility] Comment on above: Performed By: #### Alice HMHUMBERTO Kraft, IPB #### [facility] (DEFAULT) [address] [place] [address] Hemoglobin (Bld) [Mass/Vol] 9.1 g/dL Low 11.4-15.2 [facility] Comment on above: Performed By: #### HUMBERTO REESE, IPB #### [facility] (DEFAULT) [address] [place] [address] MCV (RBC) [Entitic vol] 90.4 fL Normal 79.6-97.7 [facility] Comment on above: Performed By: #### HUMBERTO REESE, IPB #### [facility] (DEFAULT) [address] [place] [address] Mean Cell Hgb 29.3 pg Normal 25.9-33.9 [facility] Comment on above: Performed By: #### Alice HMSwapnil MGO, IPB #### [facility] (DEFAULT) [address] [place] [address] Mean Cell Hgb Conc 32.4 g/dL Normal 31.4-35.9 [facility] Comment on above: Performed By: #### Alice HMSwapnil MGO, IPB #### [facility] (DEFAULT) [address] [place] [address] Platelet mean volume (Bld) [Entitic vol] 8.9 fL Normal 8.5-12.2 [facility] Comment on above: Performed By: #### Alice HMSwapnil MGO, IPB #### [facility] (DEFAULT) [address] [place] [address] Platelets (Bld) [#/Vol] 469 10*3/uL High 150-393 [facility] Comment on above: Performed By: #### Alice NG7 MGO, IPB #### [facility] (DEFAULT) [address] [place] [address] RBC (Bld) [#/Vol] 3.11 10*6/uL Low 3.91-5.04 [facility] Comment on above: Performed By: #### Alice HM7, MGO, IPB #### [facility] (DEFAULT) [address] [place] [address] RBC Distribution 15.0 % High 10.8-14.9 [facility] Comment on above: Performed By: #### Alice HMSwapnil, MGO, IPB #### [facility] (DEFAULT) [address] [place] [address] WBC (Bld) [#/Vol] 12.98 10*3/uL High 3.99-11.19 [facility] Comment on above: Performed By: #### HUMBERTO REESE, IPB #### [facility] (DEFAULT) [address] [place] [address] CHEM 7 (LYTES,BUN,CREA,GLUC) on 01-31-2021 Anion gap [Moles/Vol] 13 mmol/L Normal 7-17 [facility] Comment on above: Performed By: #### Alice HM7, MGO, IPB #### [facility] (DEFAULT) [address] [place] [address] Chloride [Moles/Vol] 104 mmol/L Normal 98-108 [facility] Comment on above: Performed By: #### Alice HM7, MGO, IPB #### [facility] (DEFAULT) [address] [place] [address] CO2 [Moles/Vol] 25 mmol/L Normal 22-30 [facility] Comment on above: Performed By: #### Alice HMSwapnil MGO, IPB #### [facility] (DEFAULT) [address] [place] [address] Creatinine [Mass/Vol] 0.61 mg/dL Normal 0.50-1.20 [facility] Comment on above: Performed By: #### Alice STEEL MGO, IPB #### [facility] (DEFAULT) [address] [place] [address] EST GFR, >=60 Normal >=60 [facility] Comment on above: Performed By: #### Alice STEEL MGKiera, IPB #### [facility] (DEFAULT) [address] [place] [address] EST GFR,Non >=60 Normal >=60 [facility] Comment on above: Performed By: #### Alice STEEL MGO, IPB #### [facility] (DEFAULT) [address] [place] [address] 94427 Glucose [Mass/Vol] 131 mg/dL High 70-99 [facility] Comment on above: Performed By: #### Alice STEEL MGO, IPB #### [facility] (DEFAULT) [address] [place] [address] 25675 Osmolality [Osmolality] 291 mosm/kg Normal 278-305 [facility] Comment on above: Performed By: #### Alice STEEL MGO, IPB #### [facility] (DEFAULT) [address] [place] [address] 46345 Potassium [Moles/Vol] 3.4 mmol/L Low 3.5-5.0 [facility] Comment on above: Performed By: #### Alice HMSwapnil MGO, IPB #### [facility] (DEFAULT) [address] [place] [address] 74969 Sodium [Moles/Vol] 139 mmol/L Normal 133-143 [facility] Comment on above: Performed By: #### Alice HM7, MGO, IPB #### [facility] (DEFAULT) [address] [place] [address] Urea nitrogen [Mass/Vol] 11 mg/dL Normal 7-22 [facility] Comment on above: Performed By: #### C HM7, MGO, IPB #### [facility] (DEFAULT) [address] [place] [address] Urea nitrogen/Creatinine [Mass ratio] 18 mg/mg Normal [facility] Comment on above: Performed By: #### C HM7, MGO, IPB #### [facility] (DEFAULT) [address] [place] [address] CT ABDOMEN WITHOUT CONTRASTo n 01-31-2021 CT [...] the basis of atelectasis or infection. Normal [facility] IONIZED CALCIUM, INPATIENTon 01-31-2021 ICA 4.59 mg/dL Low 4.60-5.30 [facility] Comment on above: Performed By: #### T YPEC #### [facility] (DEFAULT) [address] [place] [address] 76750 MAGNESIUMon 01-31-2021 Magnesium [Mass/Vol] 2.7 mg/dL High 1.6-2.6 [facility] Comment on above: Performed By: #### C HM7, MGO, IPB #### [facility] (DEFAULT) [address] [place] [address] 76211 PHOSPHATE, INORGANICon 01-31 Phosphorous 2.9 mg/dL Normal 2.2-4.6 [facility] Comment on above: Performed By: #### C HM7, MGO, IPB #### [facility] (DEFAULT) [address] [place] [address] 49418 VANCOMYCIN LEVEL, TROUGH ([place] E DRUG LEVEL)on 01-31-2021 Vancomycin, Trough 16.4 mcg/mL Normal Therapeut ic Range: 10.0-20.0 mcg/mL [facility] Comment on above: Order Comment: Pleas e draw level at specified interval PRIOR to next dose. Performed By: #### T YPEC #### [facility] (DEFAULT) [address] [place] [address] 83788 Vancomycin, Trough 36.0 mcg/mL Critically high Therap eutic Range: 10.0-20.0 mcg/mL [facility] Comment on above: Order Comment: Draw one hour prior to 0700 dose. Hold for trough >20. Performed By: #### T YPEC #### [facility] (DEFAULT) [address] [place] [address] 62024 XR CHEST PORTABLEon 02-01-20 XR CHEST PORTABLE [...] loss. No new opacities are seen. Normal [facility] CBC,PLATELETSon 01-30-2021 Hematocrit (Bld) [Volume fraction] 27.3 % Low 34.9-44.3 [facility] Comment on above: Performed By: #### HUMBERTO REESE IPB #### [facility] (DEFAULT) [address] [place] [address] 35694 Hemoglobin (Bld) [Mass/Vol] 9.1 g/dL Low 11.4-15.2 [facility] Comment on above: Performed By: #### HUMBERTO REESE IPB #### [facility] (DEFAULT) [address] [place] [address] 20326 MCV (RBC) [Entitic vol] 89.5 fL Normal 79.6-97.7 [facility] Comment on above: Performed By: #### HUMBERTO REESE, IPB #### [facility] (DEFAULT) [address] [place] [address] 30843 Mean Cell Hgb 29.8 pg Normal 25.9-33.9 [facility] Comment on above: Performed By: #### HUMBERTO REESE, IPB #### [facility] (DEFAULT) [address] [place] [address] 53127 Mean Cell Hgb Conc 33.3 g/dL Normal 31.4-35.9 [facility] Comment on above: Performed By: #### Alice HM7 MGO, IPB #### [facility] (DEFAULT) [address] [place] [address] 09062 Platelet mean volume (Bld) [Entitic vol] 8.9 fL Normal 8.5-12.2 [facility] Comment on above: Performed By: #### Alice HM7, MGO, IPB #### [facility] (DEFAULT) [address] [place] [address] 44166 Platelets (Bld) [#/Vol] 488 10*3/uL High 150-393 [facility] Comment on above: Performed By: #### Alice STEEL MGKiera, IPB #### [facility] (DEFAULT) [address] [place] [address] 00163 RBC (Bld) [#/Vol] 3.05 10*6/uL Low 3.91-5.04 [facility] Comment on above: Performed By: #### Alice STEEL MGO, IPB #### [facility] (DEFAULT) [address] [place] [address] 31019 RBC Distribution 14.6 % Normal 10.8-14.9 [facility] Comment on above: Performed By: #### Alice HM7, MGO, IPB #### [facility] (DEFAULT) [address] [place] [address] 12214 WBC (Bld) [#/Vol] 12.96 10*3/uL High 3.99-11.19 [facility] Comment on above: Performed By: #### Alice HM7, MGO, IPB #### [facility] (DEFAULT) [address] [place] [address] 45028 Hematocrit (Bld) [Volume fraction] 28.9 % Low 34.9-44.3 [facility] Comment on above: Performed By: #### G MARIUMLL #### [facility] (DEFAULT) [address] [place] [address] 25078 Hemoglobin (Bld) [Mass/Vol] 9.5 g/dL Low 11.4-15.2 [facility] Comment on above: Performed By: #### Rhonda ANDERSEN #### [facility] (DEFAULT) [address] [address] MCV (RBC) [Entitic vol] 90.0 fL Normal 79.6-97.7 [facility] Comment on above: Performed By: #### Rhonda ANDERSEN #### [facility] (DEFAULT) [address] [address] Mean Cell Hgb 29.6 pg Normal 25.9-33.9 [facility] Comment on above: Performed By: ###Nikki ANDERSEN #### [facility] (DEFAULT) [address] [address] Mean Cell Hgb Conc 32.9 g/dL Normal 31.4-35.9 [facility] Comment on above: Performed By: ###Nikki ANDERSEN #### [facility] (DEFAULT) [address] [address] Platelet mean volume (Bld) [Entitic vol] 8.8 fL Normal 8.5-12.2 [facility] Comment on above: Performed By: ###Nikki ANDERSEN #### [facility] (DEFAULT) [address] [address] Platelets (Bld) [#/Vol] 438 10*3/uL High 150-393 [facility] Comment on above: Performed By: ###Nikki ANDERSEN #### [facility] (DEFAULT) [address] [address] RBC (Bld) [#/Vol] 3.21 10*6/uL Low 3.91-5.04 [facility] Comment on above: Performed By: ###Nikki ANDERSEN #### [facility] (DEFAULT) [address] [address] RBC Distribution 14.0 % Normal 10.8-14.9 [facility] Comment on above: Performed By: #### Rhonda CAUSEYLL #### [facility] (DEFAULT) [address] [place] [address] 96511 WBC (Bld) [#/Vol] 16.25 10*3/uL High 3.99-11.19 [facility] Comment on above: Performed By: #### G GANESH #### [facility] (DEFAULT) [address] [place] [address] 75114 CHEM 7 (LYTES,BUN,CREA,GLUC) on 01-30-2021 Anion gap [Moles/Vol] 14 mmol/L Normal 7-17 [facility] Comment on above: Performed By: #### G EN #### [facility] (DEFAULT) [address] [place] [address] 09737 Chloride [Moles/Vol] 100 mmol/L Normal 98-108 [facility] Comment on above: Performed By: #### G EN #### [facility] (DEFAULT) [address] [place] [address] 84955 CO2 [Moles/Vol] 27 mmol/L Normal 22-30 [facility] Comment on above: Performed By: #### G EN #### [facility] (DEFAULT) [address] [place] [address] 42507 Creatinine [Mass/Vol] 0.30 mg/dL Low 0.50-1.20 [facility] Comment on above: Performed By: #### G EN #### [facility] (DEFAULT) [address] [place] [address] 26931 EST GFR, >=60 Normal >=60 [facility] Comment on above: Performed By: #### G EN #### [facility] (DEFAULT) [address] [address] EST GFR,Non >=60 Normal >=60 [facility] Comment on above: Performed By: #### G EN #### [facility] (DEFAULT) [address] [place] [address] 36839 Glucose [Mass/Vol] 112 mg/dL High 70-99 [facility] Comment on above: Performed By: #### G EN #### [facility] (DEFAULT) [address] [place] [address] 21891 Osmolality [Osmolality] 287 mosm/kg Normal 278-305 [facility] Comment on above: Performed By: #### G EN #### [facility] (DEFAULT) [address] [place] [address] 94897 Potassium [Moles/Vol] 3.2 mmol/L Low 3.5-5.0 [facility] Comment on above: Performed By: #### G EN #### [facility] (DEFAULT) [address] [place] [address] 07801 Sodium [Moles/Vol] 138 mmol/L Normal 133-143 [facility] Comment on above: Performed By: #### G EN #### [facility] (DEFAULT) [address] [place] [address] 11337 Urea nitrogen [Mass/Vol] 10 mg/dL Normal 7-22 [facility] Comment on above: Performed By: #### G EN #### [facility] (DEFAULT) [address] [place] [address] 58514 Urea nitrogen/Creatinine [Mass ratio] 33 mg/mg Normal [facility] Comment on above: Performed By: #### G EN #### [facility] (DEFAULT) [address] [place] [address] 05642 CKon 01-30-2021 CK [Catalytic activity/Vol] 12 U/L Low 30-184 [facility] Comment on above: Order Comment: While on Propofol. Performed By: #### G EN #### [facility] (DEFAULT) [address] [place] [address] 05388 IONIZED CALCIUM, INPATIENTon 01-30-2021 ICA 4.13 mg/dL Low 4.60-5.30 [facility] Comment on above: Performed By: #### T YPEC #### [facility] (DEFAULT) [address] [place] [address] MAGNESIUMon 01-30-2021 Magnesium [Mass/Vol] 2.0 mg/dL Normal 1.6-2.6 [facility] Comment on above: Performed By: #### G EN #### [facility] (DEFAULT) [address] [place] [address] PHOSPHATE, INORGANICon 01-30 Phosphorous 3.1 mg/dL Normal 2.2-4.6 [facility] Comment on above: Performed By: #### G EN #### [facility] (DEFAULT) [address] [place] [address] TRIGLYCERIDEon 01-30-2021 Triglyceride [Mass/Vol] 98 mg/dL Normal <150 [facility] Comment on above: Order Comment: While on Propofol. Result Comment: [<15 0 mg/dL: Desirable] [150-199 mg/dL: Borderline] [200-499 mg/dL: High] [>500 mg/dL: Very High] Performed By: #### G EN #### [facility] (DEFAULT) [address] [place] [address] 35264 XR ABDOMEN 1 VIEW PORTABLEon 01-30-2021 XR [...] IMPRESSION: No evidence of bowel obstruction. Normal [facility] XR ABDOMEN 1 VIEW PORTABLE EXAM: XR [...] and splenic flexure. IMPRESSION: Resolving ileus. Normal [facility] CBC,PLATELETSon 01-29-2021 Hematocrit (Bld) [Volume fraction] 27.1 % Low 34.9-44.3 [facility] Comment on above: Performed By: #### G ASALL #### [facility] (DEFAULT) [address] [address] Hemoglobin (Bld) [Mass/Vol] 9.1 g/dL Low 11.4-15.2 [facility] Comment on above: Performed By: #### G ASALL #### [facility] (DEFAULT) [address] [address] MCV (RBC) [Entitic vol] 90.0 fL Normal 79.6-97.7 [facility] Comment on above: Performed By: #### G ASALL #### [facility] (DEFAULT) [address] 8[address] Mean Cell Hgb 30.2 pg Normal 25.9-33.9 [facility] Comment on above: Performed By: #### G ASALL #### [facility] (DEFAULT) [address] [address] Mean Cell Hgb Conc 33.6 g/dL Normal 31.4-35.9 [facility] Comment on above: Performed By: #### G ASALL #### [facility] (DEFAULT) [address] [address] Platelet mean volume (Bld) [Entitic vol] 8.8 fL Normal 8.5-12.2 [facility] Comment on above: Performed By: #### G ASALL #### [facility] (DEFAULT) [address] [address] Platelets (Bld) [#/Vol] 362 10*3/uL Normal 150-393 [facility] Comment on above: Performed By: #### Rhonda ANDERSEN #### [facility] (DEFAULT) [address] [place] [address] 77665 RBC (Bld) [#/Vol] 3.01 10*6/uL Low 3.91-5.04 [facility] Comment on above: Performed By: #### Rhonda ANDERSEN #### [facility] (DEFAULT) [address] [place] [address] 74091 RBC Distribution 13.9 % Normal 10.8-14.9 [facility] Comment on above: Performed By: ###Nikki ANDERSEN #### [facility] (DEFAULT) [address] [place] [address] 65505 WBC (Bld) [#/Vol] 14.13 10*3/uL High 3.99-11.19 [facility] Comment on above: Performed By: ###Nikki ANDERSEN #### [facility] (DEFAULT) [address] [place] [address] 99675 CHEM 7 (LYTES,BUN,CREA,GLUC) on 01-29-2021 Anion gap [Moles/Vol] 9 mmol/L Normal 7-17 [facility] Comment on above: Performed By: #### X M #### [facility] (DEFAULT) [address] [place] [address] 69689 Chloride [Moles/Vol] 100 mmol/L Normal 98-108 [facility] Comment on above: Performed By: #### X M #### [facility] (DEFAULT) [address] [place] [address] 51906 CO2 [Moles/Vol] 29 mmol/L Normal 22-30 [facility] Comment on above: Performed By: #### X M #### [facility] (DEFAULT) [address] [place] [address] 70997 Creatinine [Mass/Vol] 0.29 mg/dL Low 0.50-1.20 [facility] Comment on above: Performed By: #### X M #### [facility] (DEFAULT) [address] [place] [address] 43574 EST GFR, >=60 Normal >=60 [facility] Comment on above: Performed By: #### X M #### [facility] (DEFAULT) [address] [place] [address] 75447 EST GFR,Non >=60 Normal >=60 [facility] Comment on above: Performed By: #### X M #### [facility] (DEFAULT) [address] [place] [address] 54916 Glucose [Mass/Vol] 117 mg/dL High 70-99 [facility] Comment on above: Performed By: #### X M #### [facility] (DEFAULT) [address] [place] [address] 21815 Osmolality [Osmolality] 281 mosm/kg Normal 278-305 [facility] Comment on above: Performed By: #### X M #### [facility] (DEFAULT) [address] [place] [address] 22177 Potassium [Moles/Vol] 3.2 mmol/L Low 3.5-5.0 [facility] Comment on above: Performed By: #### X M #### [facility] (DEFAULT) [address] [place] [address] 80864 Sodium [Moles/Vol] 135 mmol/L Normal 133-143 [facility] Comment on above: Performed By: #### X M #### [facility] (DEFAULT) [address] [place] [address] 73825 Urea nitrogen [Mass/Vol] 7 mg/dL Normal 7-22 [facility] Comment on above: Performed By: #### X M #### [facility] (DEFAULT) [address] [place] [address] 01777 Urea nitrogen/Creatinine [Mass ratio] 24 mg/mg Normal [facility] Comment on above: Performed By: #### X M #### [facility] (DEFAULT) [address] [place] [address] 28551 IONIZED CALCIUM, INPATIENTon 01-29-2021 ICA 4.22 mg/dL Low 4.60-5.30 [facility] Comment on above: Performed By: #### G ASALL #### [facility] (DEFAULT) [address] [place] [address] 07410 MAGNESIUMon 01-29-2021 Magnesium [Mass/Vol] 1.8 mg/dL Normal 1.6-2.6 [facility] Comment on above: Performed By: #### X M #### [facility] (DEFAULT) [address] [place] [address] 64650 PHOSPHATE, INORGANICon 01-29 Phosphorous 2.8 mg/dL Normal 2.2-4.6 [facility] Comment on above: Performed By: #### X M #### [facility] (DEFAULT) [address] [place] [address] 09922 XR ABDOMEN 1 VIEW PORTABLEon 01-29-2021 XR [...] upper quadrant surgical clips are noted. Normal [facility] XR CHEST PORTABLEon 01-30-20 XR CHEST PORTABLE EXAM: XR CHEST RUSSEL BLE, 01/29/2021 21:17 PM COMPARISON: January 29, 2021 CLINICAL INDICATIONS: Assess ETT RELEVANT CLINICAL HISTORY: FINDINGS: (Adequate technique) Implanted Devices: Endotracheal tube has been pulled back since prior exam now about 2.8 cm from the dain. Enteric tube passes beyond [id number]. Thorax: Hazy opacity left lower lung slightly improved from prior. No pneumothorax. Prominent interstitium. IMPRESSION: 1. Endotracheal tube projects 2.9 cm from the dain in improved positioning. 2. Persistent left lower lung opacities, though slightly improved from prior. Normal [facility] XR CHEST PORTABLE EXAM: XR CHEST RUSSEL [...] airspace disease in the left base. Normal [facility] XR CHEST PORTABLE EXAM: XR CHEST RUSSEL BLE, 01/29/2021 16:04 PM COMPARISON: January 25, 2021 CLINICAL INDICATIONS: hypoxia RELEVANT CLINICAL HISTORY: FINDINGS: (Adequate technique) Implanted Devices: Postop changes in the neck with skin mirtha in place. The esophagogastric tube terminates beneath the diaphragm, outside the [id number]. Thorax: Improved aeration in volume in the left hemithorax with some persistent dense atelectasis or airspace disease at the base. Right lung is clear. Stable cardiomediastinal silhouette. No interval bone findings. IMPRESSION: Improved left-sided lung volume and aeration with some persistent dense left basilar atelectasis or consolidation. Normal [facility] ACID FAST CULTUREon 01-29-20 21 Bacteria identified Cx Nom (Unsp spec) NO GROWTH DAY 42 OF 42 Normal [facility] Comment on above: Order Comment: Less than 1 ml of specimen received for AFB culture. Suboptimal specimen volume may affect culture results. Performed By: #### T YPEC #### [facility] (DEFAULT) [address] [address] Fluorochrome Stain No acid Fast Bacillu s Seen Normal [facility] Comment on above: Order Comment: Less than 1 ml of specimen received for AFB culture. Suboptimal specimen volume may affect culture results. Performed By: #### T YPEC #### [facility] (DEFAULT) [address] [address] ANAEROBE CULTUREon 1 Bacteria identified Cx Nom (Unsp spec) No anaerobic growth Normal [facility] Comment on above: Order Comment: Colle ct fluids or tissues in a sterile container. If collecting swabs, must be collected in a Port-A-Cul tube. Performed By: #### T YPEC #### [facility] (DEFAULT) [address] [address] BACTERIAL CULTURE AND DIRECT SMEAR, LESION, TISSUE, DEVICEon 01-28-2021 Clindamycin [Susceptibility] 0.25 ug/mL Invalid Interpretation Code [facility] Comment on above: Performed By: #### T YPEC #### [facility] (DEFAULT) [address] [address] Oxacillin [Susceptibility] by Minimum inhibitory concentration (CHLOE) >=4 Resistant [facility] Comment on above: Result Comment: Cont act Isolation is NOT required for inpatients with Methicillin Resistant Staphylococcus aureus (MRSA), use standard precautions and follow the isolation policy in regards to any additional need for isolation (eg. open draining wounds). Performed By: #### T YPEC #### [facility] [address] [address] Rifampin [Susceptibility] by Minimum inhibitory concentration (CHLOE) <=0.5 Invalid Interpretation Code [facility] Comment on above: Result Comment: Rifa mpin must never be used as monotherapy for Staphylococcal infection because of the rapid emergence of resistance. Performed By: #### T YPEC #### [facility] (DEFAULT) [address] [address] Tetracycline [Susceptibility] >=16 Resistant [facility] Comment on above: Result Comment: Doxy cycline/minocycline S. aureus susceptibility can be inferred from the tetracycline CHLOE when tetracycline susceptible Performed By: #### T DELMI #### [facility] (DEFAULT) [address] [place] [address] Trimethoprim+Sulfamet hoxazole [Susceptibility] <=10 Invalid Interpretation Code [facility] Comment on above: Performed By: #### T DELMI #### [facility] (DEFAULT) [address] [place] [address] 12071 Vancomycin [Susceptibility] 1 ug/mL Invalid Interpretation Code [facility] Comment on above: Performed By: #### T DELMI #### [facility] (DEFAULT) [address] [place] [address] 52056 BLOOD GAS ARTERIAL PLUS ALL (LYTES,GLUC LACT,HH)on 01-28-2021 Base Excess 4.3 mmol/L High -3.0-3.0 [facility] Comment on above: Performed By: #### G GANESH #### [facility] (DEFAULT) [address] [place] [address]679 FIO2 [id number] Not Available Normal [facility] Comment on above: Performed By: #### G GANESH #### [facility] (DEFAULT) [address] [place] [address] 25950 Glucose [Mass/Vol] 121 mg/dL High 70-99 [facility] Comment on above: Performed By: #### Rhonda ANDERSEN #### [facility] (DEFAULT) [address] [place] [address] 77439 HCO3 (Bld) [Moles/Vol] 30 mmol/L High 22-26 [facility] Comment on above: Performed By: #### G GANESH #### [facility] (DEFAULT) [address] [place] [address] 08829 Hematocrit (Bld) [Volume fraction] 31.3 % Low 34.9-44.3 [facility] Comment on above: Performed By: #### Rhonda ANDERSEN #### [facility] (DEFAULT) [address] [place] [address] 85743 Hemoglobin (Bld) [Mass/Vol] 10.1 g/dL Low 11.4-15.2 [facility] Comment on above: Performed By: #### Rhonda ANDERSEN #### [facility] (DEFAULT) [address] [place] [address] 21774 Oxygen saturation in Blood 99 % High 94-98 [facility] Comment on above: Performed By: #### Rhonda ANDERSEN #### [facility] (DEFAULT) [address] [place] [address] 34958 pCO2 53 mm Hg High 32-48 [facility] Comment on above: Performed By: #### Rhonda ANDERSEN #### [facility] (DEFAULT) [address] [place] [address] 58281 pH (Bld) 7.37 [pH] Normal 7.35-7.45 [facility] Comment on above: Performed By: #### Rhodna ANDERSEN #### [facility] (DEFAULT) [address] [place] [address] 56847 pO2 139 mm Hg High 83-108 [facility] Comment on above: Performed By: #### Rhonda ANDERSEN #### [facility] (DEFAULT) [address] [place] [address] 21430 Potassium [Moles/Vol] 3.8 mmol/L Normal 3.5-5.0 [facility] Comment on above: Performed By: #### Rhonda ANDERSEN #### [facility] (DEFAULT) [address] [place] [address] 56374 Sodium [Moles/Vol] 129 mmol/L Low 133-143 [facility] Comment on above: Performed By: #### Rhonda ANDERSEN #### [facility] (DEFAULT) [address] [place] [address] 06272 Whole Blood ICA 4.71 mg/dL Normal 4.60-5.30 [facility] Comment on above: Performed By: #### G MARIUMLL #### [facility] (DEFAULT) [address] [address] Whole Blood Lactate 1.1 mmol/L Normal 0.5-1.6 [facility] Comment on above: Performed By: #### G GANESH #### [facility] (DEFAULT) [address] [address] CBC,PLATELETSon 01-28-2021 Hematocrit (Bld) [Volume fraction] 28.3 % Low 34.9-44.3 [facility] Comment on above: Performed By: #### G EN #### [facility] (DEFAULT) [address] [address] Hemoglobin (Bld) [Mass/Vol] 9.4 g/dL Low 11.4-15.2 [facility] Comment on above: Performed By: #### G EN #### [facility] (DEFAULT) [address] [address] MCV (RBC) [Entitic vol] 91.0 fL Normal 79.6-97.7 [facility] Comment on above: Performed By: #### G EN #### [facility] (DEFAULT) [address] [address] Mean Cell Hgb 30.2 pg Normal 25.9-33.9 [facility] Comment on above: Performed By: #### G EN #### [facility] (DEFAULT) [address] [address] Mean Cell Hgb Conc 33.2 g/dL Normal 31.4-35.9 [facility] Comment on above: Performed By: #### G EN #### [facility] (DEFAULT) [address] [address] Platelet mean volume (Bld) [Entitic vol] 8.8 fL Normal 8.5-12.2 [facility] Comment on above: Performed By: #### G EN #### [facility] (DEFAULT) [address] [place] [address] 21720 Platelets (Bld) [#/Vol] 331 10*3/uL Normal 150-393 [facility] Comment on above: Performed By: #### G EN #### [facility] (DEFAULT) [address] [place] [address] 28924 RBC (Bld) [#/Vol] 3.11 10*6/uL Low 3.91-5.04 [facility] Comment on above: Performed By: #### G EN #### [facility] (DEFAULT) [address] [place] [address] 45530 RBC Distribution 14.4 % Normal 10.8-14.9 [facility] Comment on above: Performed By: #### G EN #### [facility] (DEFAULT) [address] [place] [address] 39477 WBC (Bld) [#/Vol] 15.52 10*3/uL High 3.99-11.19 [facility] Comment on above: Performed By: #### G EN #### [facility] (DEFAULT) [address] [place] [address] 86312 CHEM 7 (LYTES,BUN,CREA,GLUC) on 01-28-2021 Anion gap [Moles/Vol] 9 mmol/L Normal 7-17 [facility] Comment on above: Performed By: #### C HM7, MGO, IPB #### [facility] (DEFAULT) [address] [place] [address] 75913 Chloride [Moles/Vol] 97 mmol/L Low 98-108 [facility] Comment on above: Performed By: #### C HM7, MGO, IPB #### [facility] (DEFAULT) [address] [place] [address] 86708 CO2 [Moles/Vol] 29 mmol/L Normal 22-30 [facility] Comment on above: Performed By: #### Alice HM7, MGO, IPB #### [facility] (DEFAULT) [address] [place] [address] 49878 Creatinine [Mass/Vol] 0.30 mg/dL Low 0.50-1.20 [facility] Comment on above: Performed By: #### C HM7, MGO, IPB #### [facility] (DEFAULT) [address] [place] [address] 38806 EST GFR, >=60 Normal >=60 [facility] Comment on above: Performed By: #### C HM7, MGO, IPB #### [facility] (DEFAULT) [address] [place] [address] 49125 EST GFR,Non >=60 Normal >=60 [facility] Comment on above: Performed By: #### C HM7, MGO, IPB #### [facility] (DEFAULT) [address] [place] [address] 08294 Glucose [Mass/Vol] 132 mg/dL High 70-99 [facility] Comment on above: Performed By: #### C HM7, MGO, IPB #### [facility] (DEFAULT) [address] [place] [address] 53506 Osmolality [Osmolality] 275 mosm/kg Low 278-305 [facility] Comment on above: Performed By: #### C HM7, MGO, IPB #### [facility] (DEFAULT) [address] [place] [address] 32217 Potassium [Moles/Vol] 3.8 mmol/L Normal 3.5-5.0 [facility] Comment on above: Performed By: #### C HM7, MGO, IPB #### [facility] (DEFAULT) [address] [place] [address] 01322 Sodium [Moles/Vol] 131 mmol/L Low 133-143 [facility] Comment on above: Performed By: #### C HM7, MGO, IPB #### [facility] (DEFAULT) [address] [place] [address] 89872 Urea nitrogen [Mass/Vol] 6 mg/dL Low 7-22 [facility] Comment on above: Performed By: #### C DAMIÁN MGO, IPB #### [facility] (DEFAULT) [address] [place] [address] 60911 Urea nitrogen/Creatinine [Mass ratio] 20 mg/mg Normal [facility] Comment on above: Performed By: #### C HUMBERTO STEEL, IPB #### [facility] (DEFAULT) [address] [place] [address] 63990 FUNGUS CULTUREon 01-28-2021 Bacteria identified Cx Nom (Unsp spec) NO GROWTH DAY 28 OF Normal [facility] Comment on above: Performed By: #### T YPEC #### [facility] (DEFAULT) [address] [place] [address] 35296 IONIZED CALCIUM, INPATIENTon 01-28-2021 ICA 4.46 mg/dL Low 4.60-5.30 [facility] Comment on above: Performed By: #### Alice STEEL MGO, IPB #### [facility]DEFAULT[facility] [address] [place] [address] 43465 MAGNESIUMon 01-28-2021 Magnesium [Mass/Vol] 1.7 mg/dL Normal 1.6-2.6 [facility] Comment on above: Performed By: #### Alice STEEL MGKiera, IPB #### [facility] (DEFAULT) [address] [place] [address] 39588 PHOSPHATE, INORGANICon 01-28 Phosphorous 3.2 mg/dL Normal 2.2-4.6 [facility] Comment on above: Performed By: #### C DAMIÁN MGO, IPB #### [facility] (DEFAULT) [address] [place] [address] 10571 TYPE AND SCREENon 01-28-2021 ABO/RH(D) TYPE Negative Normal [facility] Comment on above: Result Comment: @05/13 09:38 by JB1: Performed By: #### X M #### [facility] (DEFAULT) [address] [place] [address] XR ABDOMEN 1 VIEW PORTABLEon 01-28-2021 XR [...] could represent ileus versus bowel obstruction. Normal [facility] XR ABDOMEN 1 VIEW PORTABLE EXAM: XR [...] could represent ileus versus bowel obstruction. Normal [facility] CBC,PLATELETSon 05-07-2021 Hematocrit (Bld) [Volume fraction] 30.3 % Low 34.9-44.3 [facility] Comment on above: Performed By: #### T YPEC #### [facility] (DEFAULT) [address] [address] Hemoglobin (Bld) [Mass/Vol] 10.1 g/dL Low 11.4-15.2 [facility] Comment on above: Performed By: #### T YPEC #### [facility] (DEFAULT) [address] [address] MCV (RBC) [Entitic vol] 91.8 fL Normal 79.6-97.7 [facility] Comment on above: Performed By: #### T YPEC #### [facility] (DEFAULT) [address] [address] Mean Cell Hgb 30.6 pg Normal 25.9-33.9 [facility] Comment on above: Performed By: #### T YPEC #### [facility] (DEFAULT) [address] [address] Mean Cell Hgb Conc 33.3 g/dL Normal 31.4-35.9 [facility] Comment on above: Performed By: #### T YPEC #### [facility] (DEFAULT) [address] [address] Platelet mean volume (Bld) [Entitic vol] 8.8 fL Normal 8.5-12.2 [facility] Comment on above: Performed By: #### T YPEC #### [facility] (DEFAULT) [address] [address] Platelets (Bld) [#/Vol] 347 10*3/uL Normal 150-393 [facility] Comment on above: Performed By: #### T YPEC #### [facility] (DEFAULT) [address] [address] RBC (Bld) [#/Vol] 3.30 10*6/uL Low 3.91-5.04 [facility] Comment on above: Performed By: #### T YPEC #### [facility] (DEFAULT) [address] [place] [address] 93900 RBC Distribution 14.3 % Normal 10.8-14.9 [facility] Comment on above: Performed By: #### T YPEC #### [facility] (DEFAULT) [address] [place] [address] 69051 WBC (Bld) [#/Vol] 11.84 10*3/uL High 3.99-11.19 [facility] Comment on above: Performed By: #### T YPEC #### [facility] (DEFAULT) [address] [place] [address] 69714 CHEM 7 (LYTES,BUN,CREA,GLUC) on 01-27-2021 Anion gap [Moles/Vol] 12 mmol/L Normal 7-17 [facility] Comment on above: Performed By: #### G EN #### [facility] (DEFAULT) [address] [place] [address] 25097 Chloride [Moles/Vol] 95 mmol/L Low 98-108 [facility] Comment on above: Performed By: #### G EN #### [facility] (DEFAULT) [address] [place] [address] 96812 CO2 [Moles/Vol] 26 mmol/L Normal 22-30 [facility] Comment on above: Performed By: #### G EN #### [facility] (DEFAULT) [address] [place] [address] 41336 Creatinine [Mass/Vol] 0.34 mg/dL Low 0.50-1.20 [facility] Comment on above: Performed By: #### G EN #### [facility] (DEFAULT) [address] [place] [address] 31577 EST GFR, >=60 Normal >=60 [facility] Comment on above: Performed By: #### G EN #### [facility] (DEFAULT) [address] [place] [address] 91607 EST GFR,Non >=60 Normal >=60 [facility] Comment on above: Performed By: #### G EN #### [facility] (DEFAULT) [address] [place] [address] 43127 Glucose [Mass/Vol] 145 mg/dL High 70-99 [facility] Comment on above: Performed By: #### G EN #### [facility] (DEFAULT) [address] [place] [address] 04311 Osmolality [Osmolality] 272 mosm/kg Low 278-305 [facility] Comment on above: Performed By: #### G EN #### [facility] (DEFAULT) [address] [place] [address] 75161 Potassium [Moles/Vol] 3.8 mmol/L Normal 3.5-5.0 [facility] Comment on above: Performed By: #### G EN #### [facility] (DEFAULT) [address] [place] [address] 59716 Sodium [Moles/Vol] 129 mmol/L Low 133-143 [facility] Comment on above: Performed By: #### G EN #### [facility] (DEFAULT) [address] [place] [address] 11923 Urea nitrogen [Mass/Vol] 5 mg/dL Low 7-22 [facility] Comment on above: Performed By: #### G EN #### [facility] (DEFAULT) [address] [place] [address] 21182 Urea nitrogen/Creatinine [Mass ratio] 15 mg/mg Normal [facility] Comment on above: Performed By: #### G EN #### [facility] (DEFAULT) [address] [place] [address] 48784 MRI SPINE CERVICAL WITH AND WITHOUT CONTRASTon [...] cervical spinal cord, suspicious for meningitis. Normal [facility] MRI SPINE LUMBAR WITH AND WI THOUT [...] spine, stable compared to prior examination. Normal [facility] MRI SPINE THORACIC WITH AND WITHOUT CONTRASTon [...] lung with a left pleural effusion. Normal [facility] OSMOLALITY, URINEon 01-28-20 21 Osmolality, Urine 212 mOsm/kg Low 300-900 [facility] Comment on above: Order Comment: The r eference range has not been established for random urine specimens. The test result should be integrated into the clinical context for interpretation. Performed By: #### T YPEC #### [facility] (DEFAULT) [address] [address] SODIUM, RANDOM URINEon 01-27 Sodium (U) [Moles/Vol] 61 mmol/L Normal [facility] Comment on above: Order Comment: The r eference range has not been established for random urine specimens. The test result should be integrated into the clinical context for interpretation. Performed By: #### T YPEC #### [facility] (DEFAULT) [address] [address] TSHon 01-27-2021 TSH 2.522 uIU/mL Normal 0.550-4.780 [facility] Comment on above: Performed By: #### G EN #### [facility] (DEFAULT) [address] [address] CBC,PLATELETSon 01-26-2021 Hematocrit (Bld) [Volume fraction] 30.9 % Low 34.9-44.3 [facility] Comment on above: Performed By: #### X M #### [facility] (DEFAULT) [address] [place] [address] 77393 Hemoglobin (Bld) [Mass/Vol] 10.0 g/dL Low 11.4-15.2 [facility] Comment on above: Performed By: #### X M #### [facility] (DEFAULT) [address] [place] [address] 64501 MCV (RBC) [Entitic vol] 92.0 fL Normal 79.6-97.7 [facility] Comment on above: Performed By: #### X M #### [facility] (DEFAULT) [address] [address] Mean Cell Hgb 29.8 pg Normal 25.9-33.9 [facility] Comment on above: Performed By: #### X M #### [facility] (DEFAULT) [address] [address] Mean Cell Hgb Conc 32.4 g/dL Normal 31.4-35.9 [facility] Comment on above: Performed By: #### X M #### [facility] (DEFAULT) [address] [place] [address] 51615 Platelet mean volume (Bld) [Entitic vol] 8.8 fL Normal 8.5-12.2 [facility] Comment on above: Performed By: #### X M #### [facility] (DEFAULT) [address] [place] [address] 00707 Platelets (Bld) [#/Vol] 351 10*3/uL Normal 150-393 [facility] Comment on above: Performed By: #### X M #### [facility] (DEFAULT) [address] [place] [address] 20173 RBC (Bld) [#/Vol] 3.36 10*6/uL Low 3.91-5.04 [facility] Comment on above: Performed By: #### X M #### [facility] (DEFAULT) [address] [place] [address] 30981 RBC Distribution 14.6 % Normal 10.8-14.9 [facility] Comment on above: Performed By: #### X M #### [facility] (DEFAULT) [address] [place] [address] 28716 WBC (Bld) [#/Vol] 11.32 10*3/uL High 3.99-11.19 [facility] Comment on above: Performed By: #### X M #### [facility] (DEFAULT) [address] [place] [address] 08980 CHEM 7 (LYTES,BUN,CREA,GLUC) on 01-26-2021 Anion gap [Moles/Vol] 10 mmol/L Normal 7-17 [facility] Comment on above: Performed By: #### G GANESH #### [facility] (DEFAULT) [address] [place] [address] 73994 Chloride [Moles/Vol] 100 mmol/L Normal 98-108 [facility] Comment on above: Performed By: #### G GANESH #### [facility] (DEFAULT) [address] [place] [address] 22107 CO2 [Moles/Vol] 26 mmol/L Normal 22-30 [facility] Comment on above: Performed By: #### G GANESH #### [facility] (DEFAULT) [address] [place] [address] 21776 Creatinine [Mass/Vol] 0.35 mg/dL Low 0.50-1.20 [facility] Comment on above: Performed By: #### Rhonda ANDERSEN #### [facility] (DEFAULT) [address] [place] [address] 73522 EST GFR, >=60 Normal >=60 [facility] Comment on above: Performed By: #### G ASABINTA #### [facility] (DEFAULT) [address] [place] [address] 15303 EST GFR,Non >=60 Normal >=60 [facility] Comment on above: Performed By: #### G GANESH #### [facility] (DEFAULT) [address] [place] [address] 41185 Glucose [Mass/Vol] 115 mg/dL High 70-99 [facility] Comment on above: Performed By: #### G GANESH #### [facility] (DEFAULT) [address] [place] [address] 61864 Osmolality [Osmolality] 276 mosm/kg Low 278-305 [facility] Comment on above: Performed By: #### G GANESH #### [facility] (DEFAULT) [address] [place] [address] 35557 Potassium [Moles/Vol] 4.4 mmol/L Normal 3.5-5.0 [facility] Comment on above: Performed By: #### G GANESH #### [facility] (DEFAULT) [address] [place] [address] 26095 Sodium [Moles/Vol] 132 mmol/L Low 133-143 [facility] Comment on above: Performed By: #### G GANESH #### [facility] (DEFAULT) [address] [place] [address] 73262 Urea nitrogen [Mass/Vol] 4 mg/dL Low 7-22 [facility] Comment on above: Performed By: #### G GANESH #### [facility] (DEFAULT) [address] [place] [address] 67713 Urea nitrogen/Creatinine [Mass ratio] 11 mg/mg Normal [facility] Comment on above: Performed By: #### G GANESH #### [facility] (DEFAULT) [address] [place] [address] 06341 VANCOMYCIN LEVEL, TROUGH ([place] E DRUG LEVEL)on 01-26-2021 Vancomycin, Trough 13.4 mcg/mL Normal Therapeut ic Range: 10.0-20.0 mcg/mL [facility] Comment on above: Order Comment: Pleas e draw level at specified interval PRIOR to next dose. Performed By: #### U [id number] #### [facility] (DEFAULT) [address] [place] [address] 52296 CBC,PLATELETSon 01-25-2021 Hematocrit (Bld) [Volume fraction] 29.3 % Low 34.9-44.3 [facility] Comment on above: Performed By: #### X M #### [facility] (DEFAULT) [address] [place] [address] 16210 Hemoglobin (Bld) [Mass/Vol] 9.6 g/dL Low 11.4-15.2 [facility] Comment on above: Performed By: #### X M #### [facility] (DEFAULT) [address] [place] [address] 38718 MCV (RBC) [Entitic vol] 91.0 fL Normal 79.6-97.7 [facility] Comment on above: Performed By: #### X M #### [facility] (DEFAULT) [address] [place] [address] 17869 Mean Cell Hgb 29.8 pg Normal 25.9-33.9 [facility] Comment on above: Performed By: #### X M #### [facility] (DEFAULT) [address] [place] [address] 98949 Mean Cell Hgb Conc 32.8 g/dL Normal 31.4-35.9 [facility] Comment on above: Performed By: #### X M #### [facility] (DEFAULT) [address] [place] [address] 91663 Platelet mean volume (Bld) [Entitic vol] 8.9 fL Normal 8.5-12.2 [facility] Comment on above: Performed By: #### X M #### [facility] (DEFAULT) [address] [place] [address] 81503 Platelets (Bld) [#/Vol] 347 10*3/uL Normal 150-393 [facility] Comment on above: Performed By: #### X M #### [facility] (DEFAULT) [address] [place] [address] 26149 RBC (Bld) [#/Vol] 3.22 10*6/uL Low 3.91-5.04 [facility] Comment on above: Performed By: #### X M #### [facility] (DEFAULT) [address] [place] [address] 39963 RBC Distribution 14.2 % Normal 10.8-14.9 [facility] Comment on above: Performed By: #### X M #### [facility] (DEFAULT) [address] [place] [address] 18017 WBC (Bld) [#/Vol] 7.91 10*3/uL Normal 3.99-11.19 [facility] Comment on above: Performed By: #### X M #### [facility] (DEFAULT) [address] [place] [address] 46193 CHEM 7 (LYTES,BUN,CREA,GLUC) on 01-25-2021 Anion gap [Moles/Vol] 10 mmol/L Normal 7-17 [facility] Comment on above: Performed By: #### T YPEC #### [facility] (DEFAULT) [address] [place] [address] 00488 Chloride [Moles/Vol] 109 mmol/L High 98-108 [facility] Comment on above: Performed By: #### T YPEC #### [facility] (DEFAULT) [address] [place] [address] 70152 CO2 [Moles/Vol] 22 mmol/L Normal 22-30 [facility] Comment on above: Performed By: #### T YPEC #### [facility] (DEFAULT) [address] [place] [address] 94527 Creatinine [Mass/Vol] 0.30 mg/dL Low 0.50-1.20 [facility] Comment on above: Performed By: #### T YPEC #### [facility] (DEFAULT) [address] [place] [address] 60813 EST GFR, >=60 Normal >=60 [facility] Comment on above: Performed By: #### T YPEC #### [facility] (DEFAULT) [address] [address] EST GFR,Non >=60 Normal >=60 [facility] Comment on above: Performed By: #### T YPEC #### [facility] (DEFAULT) [address] [address] Glucose [Mass/Vol] 146 mg/dL High 70-99 [facility] Comment on above: Performed By: #### T YPEC #### [facility] (DEFAULT) [address] [address] Osmolality [Osmolality] 286 mosm/kg Normal 278-305 [facility] Comment on above: Performed By: #### T YPEC #### [facility] (DEFAULT) [address] [address] Potassium [Moles/Vol] 2.6 mmol/L Critically low 3.5-5.0 [facility] Comment on above: Performed By: #### T YPEC #### [facility] (DEFAULT) [address] [address] Sodium [Moles/Vol] 138 mmol/L Normal 133-143 [facility] Comment on above: Performed By: #### T YPEC #### [facility] (DEFAULT) [address] [address]27 Urea nitrogen [Mass/Vol] 3 mg/dL Low 7-22 [facility] Comment on above: Performed By: #### T YPEC #### [facility] (DEFAULT) [address] [address] Urea nitrogen/Creatinine [Mass ratio] 10 mg/mg Normal [facility] Comment on above: Performed By: #### T YPEC #### [facility] (DEFAULT) [address] [address] MAGNESIUMon 01-25-2021 Magnesium [Mass/Vol] 1.5 mg/dL Low 1.6-2.6 [facility] Comment on above: Performed By: #### T YPEC #### [facility] (DEFAULT) [address] [place] [address] POTASSIUMon 01-25-2021 Potassium [Moles/Vol] 4.0 mmol/L Normal 3.5-5.0 [facility] Comment on above: Result Comment: Resu lts inconsistent with previous results Performed By: #### T YPEC #### [facility] [address] [place] [address] 82308 XR CHEST PORTABLEon 01-26-20 XR CHEST PORTABLE [...] left lung base. Consider aspiration/mucous plugging.. Normal [facility] BLOOD CULTUREon 01-24-2021 Bacteria identified Cx Nom (Unsp spec) NO GROWTH DAY 5 OF 5 Normal [facility] Comment on above: Order Comment: 2 [...] Performed By: #### T YPEC #### [facility] (DEFAULT) [address] [place] [address] Bacteria identified Cx Nom (Unsp spec) NO GROWTH DAY 5 OF 5 Normal [facility] Comment on above: Order Comment: 2 [...] Performed By: #### T YPEC #### [facility] (DEFAULT) [address] [address] CBC,PLATELETSon 01-24-2021 Hematocrit (Bld) [Volume fraction] 29.3 % Low 34.9-44.3 [facility] Comment on above: Performed By: #### T YPEC #### [facility] (DEFAULT) [address] [address] Hemoglobin (Bld) [Mass/Vol] 9.6 g/dL Low 11.4-15.2 [facility] Comment on above: Performed By: #### T YPEC #### [facility] (DEFAULT) [address] [address] MCV (RBC) [Entitic vol] 91.0 fL Normal 79.6-97.7 [facility] Comment on above: Performed By: #### T YPEC #### [facility] (DEFAULT) [address] [address] Mean Cell Hgb 29.8 pg Normal 25.9-33.9 [facility] Comment on above: Performed By: #### T YPEC #### [facility] (DEFAULT) [address] [address] Mean Cell Hgb Conc 32.8 g/dL Normal 31.4-35.9 [facility] Comment on above: Performed By: #### T YPEC #### [facility] (DEFAULT) [address] [address] Platelet mean volume (Bld) [Entitic vol] 9.1 fL Normal 8.5-12.2 [facility] Comment on above: Performed By: #### T YPEC #### [facility] (DEFAULT) [address] [place] [address] Platelets (Bld) [#/Vol] 297 10*3/uL Normal 150-393 [facility] Comment on above: Performed By: #### T YPEC #### [facility] (DEFAULT) [address] [place] [address] RBC (Bld) [#/Vol] 3.22 10*6/uL Low 3.91-5.04 [facility] Comment on above: Performed By: #### T YPEC #### [facility] (DEFAULT) [address] [place] [address] 26062 RBC Distribution 13.9 % Normal 10.8-14.9 [facility] Comment on above: Performed By: #### T YPEC #### [facility] (DEFAULT) [address] [place] [address]73 WBC (Bld) [#/Vol] 9.66 10*3/uL Normal 3.99-11.19 [facility] Comment on above: Performed By: #### T YPEC #### [facility] (DEFAULT) [address] [place] [address] CHEM 7 (LYTES,BUN,CREA,GLUC) on 01-24-2021 Anion gap [Moles/Vol] 8 mmol/L Normal 7-17 [facility] Comment on above: Performed By: #### U [id number] #### [facility] (DEFAULT) [address] [place] [address] Chloride [Moles/Vol] 101 mmol/L Normal 98-108 [facility] Comment on above: Performed By: #### U [id number] #### [facility] (DEFAULT) [address] [place] [address] 67887 CO2 [Moles/Vol] 29 mmol/L Normal 22-30 [facility] Comment on above: Performed By: #### U [id number] #### [facility] (DEFAULT) [address] [place] [address] 82082 Creatinine [Mass/Vol] 0.31 mg/dL Low 0.50-1.20 [facility] Comment on above: Performed By: #### U [id number] #### [facility] (DEFAULT) [address] [place] [address] EST GFR, >=60 Normal >=60 [facility] Comment on above: Performed By: #### U [id number] #### [facility] (DEFAULT) [address] [place] [address] EST GFR,Non >=60 Normal >=60 [facility] Comment on above: Performed By: #### U [id number] #### [facility] (DEFAULT) [address] [place] [address]33 Glucose [Mass/Vol] 136 mg/dL High 70-99 [facility] Comment on above: Performed By: #### U [id number] #### [facility] (DEFAULT) [address] [place] [address]79 Osmolality [Osmolality] 280 mosm/kg Normal 278-305 [facility] Comment on above: Performed By: #### U [id number] #### [facility] (DEFAULT) [address] [place] [address] Potassium [Moles/Vol] 3.5 mmol/L Normal 3.5-5.0 [facility] Comment on above: Performed By: #### U [id number] #### [facility] (DEFAULT) [address] [place] [address]75 Sodium [Moles/Vol] 134 mmol/L Normal 133-143 [facility] Comment on above: Performed By: #### U [id number] #### [facility] (DEFAULT) [address] [place] [address] 83775 Urea nitrogen [Mass/Vol] 3 mg/dL Low 7-22 [facility] Comment on above: Performed By: #### U [id number] #### [facility] (DEFAULT) [address] [place] [address] 03282 Urea nitrogen/Creatinine [Mass ratio] 10 mg/mg Normal [facility] Comment on above: Performed By: #### U [id number] #### [facility] (DEFAULT) [address] [place] [address] HEPATITIS B DNAon 01-24-2021 HBV Quantitative, PCR <10 Normal <10 [facility] Comment on above: Order Comment: This test was performed using a real-time HBV PCR assay. The dyanmic range for this assay is 10-1,000,000,000 IU/mL(1.00-9.00 Logs). Results should be interpreted in conjunction with other clinical and laboratory findings. Performed By: #### U [id number] #### [facility] (DEFAULT) [address] [place] [address] HBV Quantitative, PCR (Log) <1.00 Normal <1.00 [facility] Comment on above: Order Comment: This test was performed using a real-time HBV PCR assay. The dyanmic range for this assay is 10-1,000,000,000 IU/mL(1.00-9.00 Logs). Results should be interpreted in conjunction with other clinical and laboratory findings. Performed By: #### U [id number] #### [facility] (DEFAULT) [address] [place] [address]84 XR SPINE CERVICAL 2 VIEWSon 01-24-2021 XR [...] is intact and in appropriate alignment. Normal [facility] CBC,PLATELETSon 01-23-2021 Hematocrit (Bld) [Volume fraction] 27.6 % Low 34.9-44.3 [facility] Comment on above: Performed By: #### U [id number] #### [facility] (DEFAULT) [address] [address] Hemoglobin (Bld) [Mass/Vol] 9.3 g/dL Low 11.4-15.2 [facility] Comment on above: Performed By: #### U [id number] #### [facility] (DEFAULT) [address] [address] MCV (RBC) [Entitic vol] 88.5 fL Normal 79.6-97.7 [facility] Comment on above: Performed By: #### U [id number] #### [facility] (DEFAULT) [address] [address] Mean Cell Hgb 29.8 pg Normal 25.9-33.9 [facility] Comment on above: Performed By: #### U [id number] #### [facility] (DEFAULT) [address] [address] Mean Cell Hgb Conc 33.7 g/dL Normal 31.4-35.9 [facility] Comment on above: Performed By: #### U [id number] #### [facility] (DEFAULT) [address] [address] Platelet mean volume (Bld) [Entitic vol] 9.3 fL Normal 8.5-12.2 [facility] Comment on above: Performed By: #### U [id number] #### [facility] (DEFAULT) [address] [address] Platelets (Bld) [#/Vol] 291 10*3/uL Normal 150-393 [facility] Comment on above: Performed By: #### U [id number] #### [facility] (DEFAULT) [address] [place] [address] RBC (Bld) [#/Vol] 3.12 10*6/uL Low 3.91-5.04 [facility] Comment on above: Performed By: #### U [id number] #### [facility] (DEFAULT) [address] [place] [address] RBC Distribution 13.9 % Normal 10.8-14.9 [facility] Comment on above: Performed By: #### U [id number] #### [facility] (DEFAULT) [address] [place] [address] WBC (Bld) [#/Vol] 11.01 10*3/uL Normal 3.99-11.19 [facility] Comment on above: Performed By: #### U [id number] #### [facility] (DEFAULT) [address] [place] [address] CHEM 7 (LYTES,BUN,CREA,GLUC) on 01-23-2021 Anion gap [Moles/Vol] 10 mmol/L Normal 7-17 [facility] Comment on above: Performed By: #### Danielle LEE CHM7 ####[facility] (DEFAULT)[address] [place] [address] Chloride [Moles/Vol] 102 mmol/L Normal 98-108 [facility] Comment on above: Performed By: #### Danielle LEE CHM7 ####[facility] (DEFAULT)[address] [place] [address] CO2 [Moles/Vol] 24 mmol/L Normal 22-30 [facility] Comment on above: Performed By: #### Danielle LEE, CHM7 ####[facility] (DEFAULT)[address] [place] [address] Creatinine [Mass/Vol] 0.44 mg/dL Low 0.50-1.20 [facility] Comment on above: Performed By: #### H ROSA CHM7 ####[facility] (DEFAULT)[address] [place] [address] EST GFR, >=60 Normal >=60 [facility] Comment on above: Performed By: #### H FP, CHM7 ####[facility] (DEFAULT)[address] [place] [address] EST GFR,Non >=60 Normal >=60 [facility] Comment on above: Performed By: #### H FP, CHM7 ####[facility] (DEFAULT)[address] [place] [address] Glucose [Mass/Vol] 196 mg/dL High 70-99 [facility] Comment on above: Performed By: #### H FP, CHM7 ####[facility] (DEFAULT)[address] [place] [address] Osmolality [Osmolality] 281 mosm/kg Normal 278-305 [facility] Comment on above: Performed By: #### H FP, CHM7 ####[facility] (DEFAULT)[address] [place] [address] Potassium [Moles/Vol] 3.2 mmol/L Low 3.5-5.0 [facility] Comment on above: Performed By: #### H FP, CHM7 ####[facility] (DEFAULT)[address] [place] [address] Sodium [Moles/Vol] 133 mmol/L Normal 133-143 [facility] Comment on above: Performed By: #### H FP, CHM7 ####[facility] (DEFAULT)[address] [place] [address] Urea nitrogen [Mass/Vol] 4 mg/dL Low 7-22 [facility] Comment on above: Performed By: #### H FP, CHM7 ####[facility] (DEFAULT)[address] [place] [address] Urea nitrogen/Creatinine [Mass ratio] 9 mg/mg Normal [facility] Comment on above: Performed By: #### H FP, CHM7 ####[facility] (DEFAULT)[address] [place] [address] HEPATIC FUNCTION PANELon Albumin [Mass/Vol] 2.2 g/dL Low 3.5-5.0 [facility] Comment on above: Performed By: #### H FP, CHM7 ####[facility] (DEFAULT)[address] [place] [address] ALP [Catalytic activity/Vol] 124 U/L Normal 32-126 [facility] Comment on above: Performed By: #### H FP, CHM7 ####[facility] (DEFAULT)[address] [place] [address] ALT [Catalytic activity/Vol] 17 U/L Normal 9-48 [facility] Comment on above: Performed By: #### H FP, CHM7 ####[facility] (DEFAULT)[address] [place] [address] AST [Catalytic activity/Vol] 15 U/L Normal 14-40 [facility] Comment on above: Performed By: #### H FP, CHM7 ####[facility] (DEFAULT)[address] [facility] [place] [address] Bilirubin [Mass/Vol] 0.4 mg/dL Normal <1.5 [facility] Comment on above: Performed By: #### H FP, CHM7 ####[facility] (DEFAULT)[address] [place] [address] Bilirubin.indirect [Mass/Vol] 0.1 mg/dL Normal <0.3 [facility] Comment on above: Performed By: #### H FP, CHM7 ####[facility] (DEFAULT)[address] [place] [address] Protein [Mass/Vol] 5.2 g/dL Low 6.4-8.3 [facility] Comment on above: Performed By: #### H ROSA, CHM7 ####[facility] (DEFAULT)[address] [place] [address] PROTIME-INRon 01-23-2021 INR Coag (PPP) [Relative time] 1.4 {INR} High 0.9-1.1 [facility] Comment on above: Performed By: #### U [id number] #### [facility] (DEFAULT) [address] [place] [address] PT Coag (PPP) [Time] 16.5 s High 11.9-14.2 [facility] Comment on above: Performed By: #### U [id number] #### [facility] (DEFAULT) [address] [place] [address] US ABDOMEN RUQ/LIVER/GBon US ABDOMEN RUQ/LIVER/GB EXAM: [...] extent visualized. 3. No interval ascites, Normal [facility] XR CHEST PORTABLEon 01-24-20 XR CHEST PORTABLE [...] No acute disease in the chest. Normal [facility] CBC,PLATELETSon 01-22-2021 Hematocrit (Bld) [Volume fraction] 26.9 % Low 34.9-44.3 [facility] Comment on above: Performed By: #### T YPEC #### [facility] (DEFAULT) [address] [address] Hemoglobin (Bld) [Mass/Vol] 9.1 g/dL Low 11.4-15.2 [facility] Comment on above: Performed By: #### T YPEC #### [facility] (DEFAULT) [address] [address] MCV (RBC) [Entitic vol] 88.8 fL Normal 79.6-97.7 [facility] Comment on above: Performed By: #### T YPEC #### [facility] (DEFAULT) [address] [address] Mean Cell Hgb 30.0 pg Normal 25.9-33.9 [facility] Comment on above: Performed By: #### T YPEC #### [facility] (DEFAULT) [address] [address] Mean Cell Hgb Conc 33.8 g/dL Normal 31.4-35.9 [facility] Comment on above: Performed By: #### T YPEC #### [facility] (DEFAULT) [address] [address] Platelet mean volume (Bld) [Entitic vol] 9.5 fL Normal 8.5-12.2 [facility] Comment on above: Performed By: #### T YPEC #### [facility] (DEFAULT) [address] [address] Platelets (Bld) [#/Vol] 246 10*3/uL Normal 150-393 [facility] Comment on above: Performed By: #### T YPEC #### [facility] (DEFAULT) [address] [address] RBC (Bld) [#/Vol] 3.03 10*6/uL Low 3.91-5.04 [facility] Comment on above: Performed By: #### T YPEC #### [facility] (DEFAULT) [address] [address] RBC Distribution 13.6 % Normal 10.8-14.9 [facility] Comment on above: Performed By: #### T YPEC #### [facility] (DEFAULT) [address] [address] WBC (Bld) [#/Vol] 9.48 10*3/uL Normal 3.99-11.19 [facility] Comment on above: Performed By: #### T YPEC #### [facility] (DEFAULT) [address] [place] [address] CHEM 7 (LYTES,BUN,CREA,GLUC) on 01-22-2021 Anion gap [Moles/Vol] 9 mmol/L Normal 7-17 [facility] Comment on above: Performed By: #### X M #### [facility] (DEFAULT) [address] [place] [address] Chloride [Moles/Vol] 100 mmol/L Normal 98-108 [facility] Comment on above: Performed By: #### X M #### [facility] (DEFAULT) [address] [place] [address] CO2 [Moles/Vol] 23 mmol/L Normal 22-30 [facility] Comment on above: Performed By: #### X M #### [facility] (DEFAULT) [address] [place] [address] Creatinine [Mass/Vol] 0.33 mg/dL Low 0.50-1.20 [facility] Comment on above: Performed By: #### X M #### [facility] (DEFAULT) [address] [place] [address] EST GFR, >=60 Normal >=60 [facility] Comment on above: Performed By: #### X M #### [facility] (DEFAULT) [address] [place] [address]695 EST GFR,Non >=60 Normal >=60 [facility] Comment on above: Performed By: #### X M #### [facility] (DEFAULT) [address] [place] [address]76 Glucose [Mass/Vol] 115 mg/dL High 70-99 [facility] Comment on above: Performed By: #### X M #### [facility] (DEFAULT) [address] [place] [address] Osmolality [Osmolality] 270 mosm/kg Low 278-305 [facility] Comment on above: Performed By: #### X M #### [facility] (DEFAULT) [address] [place] [address] Potassium [Moles/Vol] 3.4 mmol/L Low 3.5-5.0 [facility] Comment on above: Performed By: #### X M #### [facility] (DEFAULT) [address] [place] [address]27 Sodium [Moles/Vol] 129 mmol/L Low 133-143 [facility] Comment on above: Performed By: #### X M #### [facility] (DEFAULT) [address] [place] [address]271 Urea nitrogen [Mass/Vol] 7 mg/dL Normal 7-22 [facility] Comment on above: Performed By: #### X M #### [facility] (DEFAULT) [address] [place] [address]37 Urea nitrogen/Creatinine [Mass ratio] 21 mg/mg Normal [facility] Comment on above: Performed By: #### X M #### [facility] (DEFAULT) [address] [address] IONIZED CALCIUM, INPATIENTon 01-22-2021 ICA 4.06 mg/dL Low 4.60-5.30 [facility] Comment on above: Order Comment: If io nized calcium is less than or equal to 3.0 mg/dL, recheck ionized calcium 2 hours after replacement. Performed By: #### T YPEC #### [facility] (DEFAULT) [address] [place] [address] PHOSPHATE, INORGANICon 01-22 Phosphorous 2.3 mg/dL Normal 2.2-4.6 [facility] Comment on above: Order Comment: If ph osphate level is less than or equal to 2.0 mg/dL, recheck phosphate 6 hours after replacement. Performed By: #### X M #### [facility] (DEFAULT) [address] [place] [address] VANCOMYCIN LEVEL, TROUGH ([place] E DRUG LEVEL)on 01-22-2021 Vancomycin, Trough 10.9 mcg/mL Normal Therapeut ic Range: 10.0-20.0 mcg/mL [facility] Comment on above: Order Comment: Pleas e draw level 1 hour PRIOR to dose due at 1300 on 01/22/2021. Can give next dose prior to level resulting. Contact pharmacy if level comes back > 20. Thanks! Performed By: #### T YPEC #### [facility] (DEFAULT) [address] [address] VANCOMYCIN, PEAKon Vancomycin, Peak 25.3 mcg/mL Normal Therapeutic Range: 20.0-40.0 mcg/mL [facility] Comment on above: Order Comment: Pleas e draw peak level 60 minutes after the END of vancomycin infusion for dose that is due at 1300 on 01/22/2021. Do not draw less than 60 minutes after completion of infusion. Performed By: #### T YPEC #### [facility] (DEFAULT) [address] [address] BLOOD CULTUREon 01-21-2021 Bacteria identified Cx Nom (Unsp spec) NO GROWTH DAY 5 OF 5 Normal [facility] Comment on above: Order Comment: 2 [...] Performed By: #### T YPEC #### [facility] (DEFAULT) [address] [address] CBC,PLATELETSon 01-21-2021 Hematocrit (Bld) [Volume fraction] 27.4 % Low 34.9-44.3 [facility] Comment on above: Performed By: #### U [id number] #### [facility] [address] [address] Hemoglobin (Bld) [Mass/Vol] 9.6 g/dL Low 11.4-15.2 [facility] Comment on above: Performed By: #### U [id number] #### [facility] (DEFAULT) [address] [address] MCV (RBC) [Entitic vol] 87.8 fL Normal 79.6-97.7 [facility] Comment on above: Performed By: #### U [id number] #### [facility] (DEFAULT) [address] [address] Mean Cell Hgb 30.8 pg Normal 25.9-33.9 [facility] Comment on above: Performed By: #### U [id number] #### [facility] (DEFAULT) [address] [address] Mean Cell Hgb Conc 35.0 g/dL Normal 31.4-35.9 [facility] Comment on above: Performed By: #### U [id number] #### [facility] (DEFAULT) [address] [address] Platelet mean volume (Bld) [Entitic vol] 9.5 fL Normal 8.5-12.2 [facility] Comment on above: Performed By: #### U [id number] #### [facility] (DEFAULT) [address] [address] Platelets (Bld) [#/Vol] 204 10*3/uL Normal 150-393 [facility] Comment on above: Performed By: #### U [id number] #### [facility] (DEFAULT) [address] [address] RBC (Bld) [#/Vol] 3.12 10*6/uL Low 3.91-5.04 [facility] Comment on above: Performed By: #### U [id number] #### [facility] (DEFAULT) [address] [address] RBC Distribution 13.9 % Normal 10.8-14.9 [facility] Comment on above: Performed By: #### U [id number] #### [facility] (DEFAULT) [address] [place] [address] WBC (Bld) [#/Vol] 7.76 10*3/uL Normal 3.99-11.19 [facility] Comment on above: Performed By: #### U [id number] #### [facility] (DEFAULT) [address] [place] [address] CHEM 7 (LYTES,BUN,CREA,GLUC) on 01-21-2021 Anion gap [Moles/Vol] 10 mmol/L Normal 7-17 [facility] Comment on above: Performed By: #### T YPEC #### [facility] (DEFAULT) [address] [address] Chloride [Moles/Vol] 101 mmol/L Normal 98-108 [facility] Comment on above: Performed By: #### T YPEC #### [facility] (DEFAULT) [address] [address] CO2 [Moles/Vol] 22 mmol/L Normal 22-30 [facility] Comment on above: Performed By: #### T YPEC #### [facility] (DEFAULT) [address] [address] Creatinine [Mass/Vol] 0.35 mg/dL Low 0.50-1.20 [facility] Comment on above: Performed By: #### T YPEC #### [facility] (DEFAULT) [address] [address] EST GFR, >=60 Normal >=60 [facility] Comment on above: Performed By: #### T YPEC #### [facility] (DEFAULT) [address] [address] EST GFR,Non >=60 Normal >=60 [facility] Comment on above: Performed By: #### T YPEC #### [facility] (DEFAULT) [address] [address] Glucose [Mass/Vol] 137 mg/dL High 70-99 [facility] Comment on above: Performed By: #### T YPEC #### [facility] (DEFAULT) [address] [place] [address] Osmolality [Osmolality] 272 mosm/kg Low 278-305 [facility] Comment on above: Performed By: #### T YPEC #### [facility] (DEFAULT) [address] [place] [address] Potassium [Moles/Vol] 3.5 mmol/L Normal 3.5-5.0 [facility] Comment on above: Performed By: #### T YPEC #### [facility] (DEFAULT) [address] [place] [address] Sodium [Moles/Vol] 129 mmol/L Low 133-143 [facility] Comment on above: Performed By: #### T YPEC #### [facility] (DEFAULT) [address] [address] Urea nitrogen [Mass/Vol] 9 mg/dL Normal 7-22 [facility] Comment on above: Performed By: #### T YPEC #### [facility] (DEFAULT) [address] [place] [address] Urea nitrogen/Creatinine [Mass ratio] 26 mg/mg Normal [facility] Comment on above: Performed By: #### T YPEC #### [facility] (DEFAULT) [address] [place] [address] CREATININE SERUMon 1 Creatinine [Mass/Vol] 0.38 mg/dL Low 0.50-1.20 [facility] Comment on above: Performed By: #### T YPEC #### [facility] (DEFAULT) [address] [place] [address] EST GFR, >=60 Normal >=60 [facility] Comment on above: Performed By: #### T YPEC #### [facility] [address] [place] [address] EST GFR,Non >=60 Normal >=60 [facility] Comment on above: Performed By: #### T YPEC #### [facility] (DEFAULT) [address] [place] [address] CREATININE, 8 HOUR URINEon 0 01-21-2021 Creatinine (U) [Mass/Vol] 92.15 mg/dL Normal [facility] Comment on above: Order Comment: No Pr eservative, refrigerate. Performed By: #### T YPEC #### [facility] (DEFAULT) [address] [place] [address] Creatinine Clearance, Ml/Min, Urine 163.7 mL/min Normal [facility] Comment on above: Order Comment: No Pr eservative, refrigerate. Result Comment: This is a corrected result. Previous result was 54.6 mL/min on 01/21/2021 at 0627 EDT Performed By: #### T YPEC #### [facility] (DEFAULT) [address] [place] [address]10 Interval 8 hrs Normal [facility] Comment on above: Order Comment: No Pr eservative, refrigerate. Result Comment: This is a corrected result. Previous result was 24 hrs on 01/21/2021 at 0627 EDT Performed By: #### T YPEC #### [facility] (DEFAULT) [address] [address] Urine Volume 324 mL Normal [facility] Comment on above: Order Comment: No Pr eservative, refrigerate. Performed By: #### T YPEC #### [facility] (DEFAULT) [address] [address] HEPATITIS B DNAon 01-21-2021 HBV Quantitative, PCR <10 Normal <10 [facility] Comment on above: Order Comment: This test was performed using a real-time HBV PCR assay. The dyanmic range for this assay is 10-1,000,000,000 IU/mL(1.00-9.00 Logs). Results should be interpreted in conjunction with other clinical and laboratory findings. Performed By: #### HUMBERTO REESE IPB #### [facility] (DEFAULT) [address] [place] [address] HBV Quantitative, PCR (Log) <1.00 Normal <1.00 [facility] Comment on above: Order Comment: This test was performed using a real-time HBV PCR assay. The dyanmic range for this assay is 10-1,000,000,000 IU/mL(1.00-9.00 Logs). Results should be interpreted in conjunction with other clinical and laboratory findings. Performed By: #### HUMBERTO REESE IPB #### [facility] (DEFAULT) [address] [place] [address] HEPATITIS C BY PCR, QUANTon 01-21-2021 Hepatitis C By Pcr, Quant. <12 Normal <12 [facility] Comment on above: Order Comment: This test was performed using a real time PCR assay. The dynamic range for this assay is 12-100,000,000 IU/mL. Performed By: #### T YPEC #### [facility] (DEFAULT) [address] [place] [address] Hepatitis C By Pcr,(Log) <1.08 Normal <1.08 [facility] Comment on above: Order Comment: This test was performed using a real time PCR assay. The dynamic range for this assay is 12-100,000,000 IU/mL. Performed By: #### T YPEC #### [facility] (DEFAULT) [address] [place] [address] IONIZED CALCIUM, INPATIENTon 01-21-2021 ICA 4.06 mg/dL Low 4.60-5.30 [facility] Comment on above: Order Comment: If io nized calcium is less than or equal to 3.0 mg/dL, recheck ionized calcium 2 hours after replacement. Performed By: #### X M #### [facility] (DEFAULT) [address] [address] PHOSPHATE, INORGANICon 01-21 Phosphorous 1.5 mg/dL Low 2.2-4.6 [facility] Comment on above: Order Comment: If ph osphate level is less than or equal to 2.0 mg/dL, recheck phosphate 6 hours after replacement. Performed By: #### T YPEC #### [facility] (DEFAULT) [address] [address] POTASSIUMon 01-21-2021 Potassium [Moles/Vol] 3.3 mmol/L Low 3.5-5.0 [facility] Comment on above: Order Comment: If po tassium level is less than or equal to 3.0 mmol/L, recheck potassium 4 hours after replacement. Performed By: #### T YPEC #### [facility] (DEFAULT) [address] [address] VANCOMYCIN LEVEL, TROUGH ([place] E DRUG LEVEL)on 01-21-2021 Vancomycin, Trough 8.5 mcg/mL Low Therapeut ic Range: 10.0-20.0 mcg/mL [facility] Comment on above: Order Comment: Pleas e draw level 1 hour PRIOR to dose due at 1300 on 01/21/2021. Please hold dose and contact pharmacy if level > 20. Thanks! Performed By: #### V ANCTR ####[facility] (DEFAULT)[address] [place] [address] BLOOD CULTUREon 01-20-2021 Bacteria identified Cx Nom (Unsp spec) NO GROWTH DAY 5 OF 5 Normal [facility] Comment on above: Order Comment: 2 [...] Performed By: #### T YPEC #### [facility] (DEFAULT) [address] [address] CBC,PLATELETSon 01-20-2021 Hematocrit (Bld) [Volume fraction] 25.9 % Low 34.9-44.3 [facility] Comment on above: Performed By: #### T YPEC #### [facility] (DEFAULT) [address] [place] [address] Hemoglobin (Bld) [Mass/Vol] 8.9 g/dL Low 11.4-15.2 [facility] Comment on above: Performed By: #### T YPEC #### [facility] (DEFAULT) [address] [place] [address] MCV (RBC) [Entitic vol] 86.9 fL Normal 79.6-97.7 [facility] Comment on above: Performed By: #### T YPEC #### [facility] (DEFAULT) [address] [address] Mean Cell Hgb 29.9 pg Normal 25.9-33.9 [facility] Comment on above: Performed By: #### T YPEC #### [facility] (DEFAULT) [address] [place] [address] Mean Cell Hgb Conc 34.4 g/dL Normal 31.4-35.9 [facility] Comment on above: Performed By: #### T YPEC #### [facility] (DEFAULT) [address] [place] [address] Platelet mean volume (Bld) [Entitic vol] 9.6 fL Normal 8.5-12.2 [facility] Comment on above: Performed By: #### T YPEC #### [facility] (DEFAULT) [address] [address] Platelets (Bld) [#/Vol] 152 10*3/uL Normal 150-393 [facility] Comment on above: Performed By: #### T YPEC #### [facility] (DEFAULT) [address] [place] [address] RBC (Bld) [#/Vol] 2.98 10*6/uL Low 3.91-5.04 [facility] Comment on above: Performed By: #### T YPEC #### [facility] (DEFAULT) [address] [place] [address] RBC Distribution 13.8 % Normal 10.8-14.9 [facility] Comment on above: Performed By: #### T YPEC #### [facility] (DEFAULT) [address] [place] [address] WBC (Bld) [#/Vol] 8.13 10*3/uL Normal 3.99-11.19 [facility] Comment on above: Performed By: #### T YPEC #### [facility] (DEFAULT) [address] [place] [address] CHEM 7 (LYTES,BUN,CREA,GLUC) on 01-20-2021 Anion gap [Moles/Vol] 12 mmol/L Normal 7-17 [facility] Comment on above: Performed By: #### T YPEC #### [facility] (DEFAULT) [address] [place] [address] Chloride [Moles/Vol] 101 mmol/L Normal 98-108 [facility] Comment on above: Performed By: #### T YPEC #### [facility] (DEFAULT) [address] [place] [address] CO2 [Moles/Vol] 22 mmol/L Normal 22-30 [facility] Comment on above: Performed By: #### T YPEC #### [facility] (DEFAULT) [address] [place] [address] Creatinine [Mass/Vol] 0.36 mg/dL Low 0.50-1.20 [facility] Comment on above: Performed By: #### T YPEC #### [facility] (DEFAULT) [address] [place] [address] EST GFR, >=60 Normal >=60 [facility] Comment on above: Performed By: #### T YPEC #### [facility] (DEFAULT) [address] [place] [address] EST GFR,Non >=60 Normal >=60 [facility] Comment on above: Performed By: #### T YPEC #### [facility] (DEFAULT) [address] [place] [address] Glucose [Mass/Vol] 130 mg/dL High 70-99 [facility] Comment on above: Performed By: #### T YPEC #### [facility] (DEFAULT) [address] [place] [address] Osmolality [Osmolality] 278 mosm/kg Normal 278-305 [facility] Comment on above: Performed By: #### T YPEC #### [facility] (DEFAULT) [address] [address] Potassium [Moles/Vol] 3.5 mmol/L Normal 3.5-5.0 [facility] Comment on above: Performed By: #### T YPEC #### [facility] (DEFAULT) [address] [place] [address] Sodium [Moles/Vol] 131 mmol/L Low 133-143 [facility] Comment on above: Performed By: #### T YPEC #### [facility] (DEFAULT) [address] [address] Urea nitrogen [Mass/Vol] 15 mg/dL Normal 7-22 [facility] Comment on above: Performed By: #### T YPEC #### [facility] (DEFAULT) [address] [place] [address] Urea nitrogen/Creatinine [Mass ratio] 42 mg/mg Normal [facility] Comment on above: Performed By: #### T YPEC #### [facility] (DEFAULT) [address] [address] ECHOCARDIOGRAMon 01-20-2021 Echocardiography Technically difficul t study. Normal left ventricular size with low normal to mildly reduced systolic function. EF 45-50%. Normal right ventricular size and function. No significant valvular disease identified. No vegetations identified on this study. Facility [facility] Patient Information Patient Name Katarzyna Vargas Legal [...] Role Read Date Sherwin Hernández MD Echo [place] 01/20/2021 Left Heart Measurements LV - Systole [...] and technically difficult study. Imaging system used: PopUp. Exam Details Performed Procedure Technologist Supporting Staff Performing Physician [place] ECHOCARDIOGRAM W/O 3D Sandra Echeverria RDCS Appointment Date/Status Modality Department 01/20/2021 Arrived ECHO TESTING, [facility] ECHOCARDIOGRAPHY ROSS Begin Exam End Exam 01/20/2021 [...] no ABN associated with this order. Normal [facility] HCG QUALITATIVE, URINEon Beta HCG ( test) Ql (U) Negative Normal Negative [facility] Comment on above: Order Comment: Draw with next labs Performed By: #### T YPEC #### [facility] (DEFAULT) [address] [place] [address] MAGNESIUMon 01-20-2021 Magnesium [Mass/Vol] 1.9 mg/dL Normal 1.6-2.6 [facility] Comment on above: Performed By: #### T YPEC #### [facility] (DEFAULT) [address] [place] [address] MRI ANGIO NECK WITH AND WITH OUT [...] the extracranial carotid or vertebral arteries Normal [facility] MRI ARTERIOGRAM BRAIN WITHOU T CONTRASTon 01-20-2021 MRI ARTERIOGRAM BRAIN WITHOUT CONTRAST EXAM: MRI ARTERIOGRAM BRAIN WITHOUT CONTRAST, 01/20/2021 13:00 PM COMPARISON: No previous study is available for comparison. CLINICAL INDICATIONS: 45 years Female rule out mycotic aneurysm, stenoses; RELEVANT CLINICAL HISTORY: TECHNIQUE: MR Angiography of the brain is performed using 3D [id number] technique without intravenous contrast. Source images, as [...] No cerebral artery occlusion or aneurysm Normal [facility] MRI BRAIN WITH AND WITHOUT C ONTRASTon 01-20-2021 MRI BRAIN WITH AND WITHOUT CONTRAST [...] lost to follow-up) who presented to the [facility] on 01/19/21 as a txfer from an [...] correlation with CSF sampling is recommended. Normal [facility] MRI PLAIN FILM FOR NEURO EXA 01-20-2021 [...] above No findings to preclude MRI. Normal [facility] PHOSPHATE, INORGANICon 01-20 Phosphorous 1.3 mg/dL Low 2.2-4.6 [facility] Comment on above: Performed By: #### X M #### [facility] (DEFAULT) [address] [place] [address] XR CHEST PORTABLEon 01-21-20 XR CHEST PORTABLE [...] No active disease in the chest. Normal [facility] ABORH TYPE RECONFIRMATIONon 01-19-2021 ABO/RH(D) TYPE Negative Normal [facility] Comment on above: Performed By: #### T YPEC #### [facility] (DEFAULT) [address] [address] ACID FAST CULTURE, TISSUEon 01-19-2021 Bacteria identified Cx Nom (Unsp spec) NO GROWTH DAY 42 OF 42 Normal [facility] Comment on above: Performed By: #### T YPEC #### [facility] (DEFAULT) [address] [address] Fluorochrome Stain No acid Fast Bacillu s Seen Normal [facility] Comment on above: Performed By: #### T YPEC #### [facility] (DEFAULT) [address] [address] ANAEROBE CULTUREon Bacteria identified Cx Nom (Unsp spec) No anaerobic growth Normal [facility] Comment on above: Order Comment: Colle ct fluids or tissues in a sterile container. If collecting swabs, must be collected in a Port-A-Cul tube. Performed By: #### T YPEC #### [facility] (DEFAULT) [address] [address] BACTERIAL CULTURE AND DIRECT SMEAR, LESION, TISSUE, DEVICEon 01-19-2021 Ceftaroline [Susceptibility] 0.5 ug/mL Invalid Interpretation Code [facility] Comment on above: Performed By: #### G EN #### [facility] (DEFAULT) [address] [address] Clindamycin [Susceptibility] 0.25 ug/mL Invalid Interpretation Code Susceptible <=0.5 ug/mL, Intermediate >.5 ug/mL, Resistant >2 ug/mL [facility] Comment on above: Performed By: #### G EN #### [facility] (DEFAULT) [address] [address] Oxacillin [Susceptibility] by Minimum inhibitory concentration (CHLOE) >=4 Resistant [facility] Comment on above: Result Comment: Cont act Isolation is NOT required for inpatients with Methicillin Resistant Staphylococcus aureus (MRSA), use standard precautions and follow the isolation policy in regards to any additional need for isolation (eg. open draining wounds). Performed By: #### G EN #### [facility] (DEFAULT) [address] [place] [address] Rifampin [Susceptibility] by Minimum inhibitory concentration (CHLOE) <=0.5 Invalid Interpretation Code Susceptible <=1 ug/mL, Intermediate >1 ug/mL, Resistant >2 ug/mL [facility] Comment on above: Result Comment: Rifa mpin must never be used as monotherapy for Staphylococcal infection because of the rapid emergence of resistance. Performed By: #### G EN #### [facility] (DEFAULT) [address] [address] Tetracycline [Susceptibility] >=16 Resistant Susceptible <=4 ug/mL, Intermediate >4 ug/mL, Resistant >8 ug/mL [facility] Comment on above: Result Comment: Doxy cycline/minocycline S. aureus susceptibility can be inferred from the tetracycline CHLOE when tetracycline susceptible Performed By: #### G EN #### [facility] (DEFAULT) [address] [place] [address] Trimethoprim+Sulfamet hoxazole [Susceptibility] <=10 Invalid Interpretation Code Susceptible <=40 ug/mL, Resistant >40 ug/mL [facility] Comment on above: Performed By: #### G EN #### [facility] (DEFAULT) [address] [address] Vancomycin [Susceptibility] 1 ug/mL Invalid Interpretation Code Susceptible <=4 ug/mL, Intermediate >4 ug/mL, Resistant >16 ug/mL [facility] Comment on above: Performed By: #### G EN #### [facility] (DEFAULT) [address] [place] [address] BETA HCG, QUANT, BLOODon HCG (Quant) Serum <2.6 Normal [facility] Comment on above: Result Comment: Non- : [...] #### C HM7, MGO, IPB #### [facility] (DEFAULT) [address] [place] [address] BKR GRAM POSITIVE VERIGENESo n 01-19-2021 Gram Positive Verigenes Detected Abnormal Invalid [facility] Comment on above: Order Comment: 2 Bot [...] findings. Performed By: #### T YPEC #### [facility] (DEFAULT) [address] [address] mecA Detected Abnormal Not Detected [facility] Comment on above: Order Comment: 2 Bot [...] wounds) Performed By: #### T YPEC #### [facility] (DEFAULT) [address] [address] BLOOD CULTUREon 01-19-2021 Bacteria identified Cx Nom (Unsp spec) Normal [facility] Comment on above: Order Comment: 2 Bot tles (1 Set - consists of 1 Aerobic (blue) bottle and 1 Anaerobic (purple) bottle) -1st Peripheral DrawFor syringe method draw:If able to obtain adequate sample (20 ml) inoculate anaerobic bottle firstIf inadequate sample obtained (less than 20 ml) inoculate aerobic bottle firstFor vacutainer method draw: Fill aerobic bottle first, then anaerobic Result Comment: Grow 4397METHICILLIN RESISTANT STAPHYLOCOCCUS AUREUSMETHICILLIN RESISTANT STAPHYLOCOCCUS AUREUS Methicillin Resistant Staphylococcus aureus Refer to specimen [id number] on 01/19/21 for susceptibilities. Performed By: #### T YPEC #### [facility] (DEFAULT) [address] [address] Clindamycin [Susceptibility] 0.25 ug/mL Invalid Interpretation Code [facility] Comment on above: Order Comment: 2 Bot [...] Performed By: #### T YPEC #### [facility] (DEFAULT) [address] [address] Daptomycin [Susceptibility] 0.25 ug/mL Invalid Interpretation Code [facility] Comment on above: Order Comment: 2 Bot [...] Performed By: #### T YPEC #### [facility] (DEFAULT) [address] [address] Oxacillin [Susceptibility] by Minimum inhibitory concentration (CHLOE) >=4 Resistant [facility] Comment on above: Order Comment: 2 Bot [...] wounds). Performed By: #### T YPEC #### [facility] (DEFAULT) [address] [address] Penicillin [Susceptibility] >=0.5 Resistant [facility] Comment on above: Order Comment: 2 Bot [...] anaerobic Performed By: #### T YPEC #### [facility] (DEFAULT) [address] [place] [address] Rifampin [Susceptibility] by Minimum inhibitory concentration (CHLOE) <=0.5 Invalid Interpretation Code [facility] Comment on above: Order Comment: 2 Bot [...] resistance. Performed By: #### T YPEC #### [facility] (DEFAULT) [address] [address] Tetracycline [Susceptibility] >=16 Resistant [facility] Comment on above: Order Comment: 2 Bot [...] susceptible Performed By: #### T YPEC #### [facility] (DEFAULT) [address] [address] Trimethoprim+Sulfamet hoxazole [Susceptibility] <=10 Invalid Interpretation Code [facility] Comment on above: Order Comment: 2 Bot [...] anaerobic Performed By: #### T YPEC #### [facility] (DEFAULT) [address] [address] Vancomycin [Susceptibility] 1 ug/mL Invalid Interpretation Code [facility] Comment on above: Order Comment: 2 Bot [...] anaerobic Performed By: #### T YPEC #### [facility] (DEFAULT) [address] [address] CALCIUMon 01-19-2021 Calcium [Mass/Vol] 7.8 mg/dL Low 8.6-10.5 [facility] Comment on above: Performed By: #### G ASALL #### [facility] (DEFAULT) [address] [address] CBC AND ELECTRONIC DIFFon Basophils (Bld) [#/Vol] 10*3/uL Normal 0.00-0.15 [facility] Comment on above: Performed By: #### C HM7, MGO, IPB #### [facility] (DEFAULT) [address] [address] Basophils/100 WBC (Bld) 0.1 % Normal [facility] Comment on above: Performed By: #### HUMBERTO REESE, IPB #### [facility] (DEFAULT) [address] [place] [address] DIFF STATUS Electronic Differential Normal [facility] Comment on above: Performed By: #### HUMBERTO REESE, IPB #### [facility] (DEFAULT) [address] [place] [address] Eosinophils (Bld) [#/Vol] 10*3/uL Normal 0.00-0.42 [facility] Comment on above: Performed By: #### HUMBERTO REESE, IPB #### [facility] (DEFAULT) [address] [place] [address] Eosinophils/100 WBC (Bld) 0.0 % Normal [facility] Comment on above: Performed By: #### HUMBERTO REESE, IPB #### [facility] (DEFAULT) [address] [place] [address] Hematocrit (Bld) [Volume fraction] 28.3 % Low 34.9-44.3 [facility] Comment on above: Performed By: #### HUMBERTO REESE, IPB #### [facility] (DEFAULT) [address] [place] [address] Hemoglobin (Bld) [Mass/Vol] 10.0 g/dL Low 11.4-15.2 [facility] Comment on above: Performed By: #### HUMBERTO REESE, IPB #### [facility] (DEFAULT) [address] [place] [address] Immature Grans % 0.4 % Normal [facility] Comment on above: Performed By: #### HUMBERTO REESE, IPB #### [facility] (DEFAULT) [address] [place] [address] Immature Grans Absolute 0.05 K/uL Normal <=0.09 [facility] Comment on above: Performed By: #### C HM7, MGO, IPB #### [facility] (DEFAULT) [address] [place] [address] Lymphocytes (Bld) [#/Vol] 0.62 10*3/uL Low 1.16-3.51 [facility] Comment on above: Performed By: #### Alice [employer] MGO, IPB #### [facility] (DEFAULT) [address] [place] [address] Lymphocytes/100 WBC (Bld) 4.5 % Normal [facility] Comment on above: Performed By: #### Alice [employer] MGKiera, IPB #### [facility] (DEFAULT) [address] [place] [address] MCV (RBC) [Entitic vol] 88.7 fL Normal 79.6-97.7 [facility] Comment on above: Performed By: #### HUMBERTO REESE, IPB #### [facility] (DEFAULT) [address] [place] [address] Mean Cell Hgb 31.3 pg Normal 25.9-33.9 [facility] Comment on above: Performed By: #### HUMBERTO REESE, IPB #### [facility] (DEFAULT) [address] [place] [address] Mean Cell Hgb Conc 35.3 g/dL Normal 31.4-35.9 [facility] Comment on above: Performed By: #### [employer] MGKiera, IPB #### [facility] (DEFAULT) [address] [place] [address] Monocytes (Bld) [#/Vol] 0.65 10*3/uL Normal 0.22-0.87 [facility] Comment on above: Performed By: #### Alice HM7 MGO, IPB #### [facility] (DEFAULT) [address] [place] [address] 55572 Monocytes/100 WBC (Bld) 4.7 % Normal [facility] Comment on above: Performed By: #### HUMBERTO REESE, IPB #### [facility] [address] [place] [address] 93976 Nucleated RBC 0.0 /100 WBC Normal <=0.2 [facility] Comment on above: Performed By: #### Alice STEEL MGO, IPB #### [facility] (DEFAULT) [address] [place] [address] 24725 Platelet mean volume (Bld) [Entitic vol] 9.6 fL Normal 8.5-12.2 [facility] Comment on above: Performed By: #### HUMBERTO REESE, IPB #### [facility] (DEFAULT) [address] [place] [address] 37222 Platelets (Bld) [#/Vol] 214 10*3/uL Normal 150-393 [facility] Comment on above: Performed By: #### HUMBERTO REESE, IPB #### [facility] (DEFAULT) [address] [place] [address] 56237 RBC (Bld) [#/Vol] 3.19 10*6/uL Low 3.91-5.04 [facility] Comment on above: Performed By: #### HUMBERTO REESE, IPB #### [facility] (DEFAULT) [address] [place] [address] 77054 RBC Distribution 14.0 % Normal 10.8-14.9 [facility] Comment on above: Performed By: #### HUMBERTO REESE, IPB #### [facility] (DEFAULT) [address] [place] [address] 81684 Segs + Bands Auto 90.3 % Normal [facility] Comment on above: Performed By: #### Alice STEEL MGKiera, IPB #### [facility] (DEFAULT) [address] [place] [address] 13682 Segs + Bands,Absolute Auto 12.36 K/uL High 1.64-7.28 [facility] Comment on above: Performed By: #### C HM7, MGO, IPB #### [facility] (DEFAULT) [address] [place] [address] 35174 WBC (Bld) [#/Vol] 13.69 10*3/uL High 3.99-11.19 [facility] Comment on above: Performed By: #### C HM7, MGO, IPB #### [facility] (DEFAULT) [address] [place] [address] 79014 Basophils (Bld) [#/Vol] 10*3/uL Normal 0.00-0.15 [facility] Comment on above: Performed By: #### T YPEC #### [facility] (DEFAULT) [address] [address] Basophils/100 WBC (Bld) 0.2 % Normal [facility] Comment on above: Performed By: #### T YPEC #### [facility] (DEFAULT) [address] [place] [address] 95112 DIFF STATUS Electronic Differential Normal [facility] Comment on above: Performed By: #### T YPEC #### [facility] (DEFAULT) [address] [address] Eosinophils (Bld) [#/Vol] 10*3/uL Normal 0.00-0.42 [facility] Comment on above: Performed By: #### T YPEC #### [facility] (DEFAULT) [address] [address] Eosinophils/100 WBC (Bld) 0.0 % Normal [facility] Comment on above: Performed By: #### T YPEC #### [facility] (DEFAULT) [address] [address] Hematocrit (Bld) [Volume fraction] 29.2 % Low 34.9-44.3 [facility] Comment on above: Performed By: #### T YPEC #### [facility] (DEFAULT) [address] [address] Hemoglobin (Bld) [Mass/Vol] 10.3 g/dL Low 11.4-15.2 [facility] Comment on above: Performed By: #### T YPEC #### [facility] (DEFAULT) [address] [address] Immature Grans % 0.8 % Normal [facility] Comment on above: Performed By: #### T YPEC #### [facility] (DEFAULT) [address] [address] Immature Grans Absolute 0.07 K/uL Normal <=0.09 [facility] Comment on above: Performed By: #### T YPEC #### [facility] (DEFAULT) [address] [address] Lymphocytes (Bld) [#/Vol] 0.55 10*3/uL Low 1.16-3.51 [facility] Comment on above: Performed By: #### T YPEC #### [facility] (DEFAULT) [address] [address] Lymphocytes/100 WBC (Bld) 5.9 % Normal [facility] Comment on above: Performed By: #### T YPEC #### [facility] (DEFAULT) [address] [address] MCV (RBC) [Entitic vol] 87.4 fL Normal 79.6-97.7 [facility] Comment on above: Performed By: #### T YPEC #### [facility] (DEFAULT) [address] [address]67 Mean Cell Hgb 30.8 pg Normal 25.9-33.9 [facility] Comment on above: Performed By: #### T YPEC #### [facility] (DEFAULT) [address] [address] Mean Cell Hgb Conc 35.3 g/dL Normal 31.4-35.9 [facility] Comment on above: Performed By: #### T YPEC #### [facility] (DEFAULT) [address] [address] Monocytes (Bld) [#/Vol] 0.86 10*3/uL Normal 0.22-0.87 [facility] Comment on above: Performed By: #### T YPEC #### [facility] (DEFAULT) [address] [address] Monocytes/100 WBC (Bld) 9.3 % Normal [facility] Comment on above: Performed By: #### T YPEC #### [facility] (DEFAULT) [address] [address] Nucleated RBC 0.0 /100 WBC Normal <=0.2 [facility] Comment on above: Result Comment: This is an appended report. These results have been appended to a previously preliminary verified report. Performed By: #### T YPEC #### [facility] (DEFAULT) [address] [address] Platelet mean volume (Bld) [Entitic vol] 9.5 fL Normal 8.5-12.2 [facility] Comment on above: Performed By: #### T YPEC #### [facility] (DEFAULT) [address] [address] Platelets (Bld) [#/Vol] 168 10*3/uL Normal 150-393 [facility] Comment on above: Performed By: #### T YPEC #### [facility] (DEFAULT) [address] [address] RBC (Bld) [#/Vol] 3.34 10*6/uL Low 3.91-5.04 [facility] Comment on above: Performed By: #### T YPEC #### [facility] (DEFAULT) [address] [address] RBC Distribution 14.1 % Normal 10.8-14.9 [facility] Comment on above: Performed By: #### T YPEC #### [facility] (DEFAULT) [address] [place] [address] 71273 Segs + Bands Auto 83.8 % Normal [facility] Comment on above: Performed By: #### T YPEC #### [facility] (DEFAULT) [address] [place] [address] 16044 Segs + Bands,Absolute Auto 7.76 K/uL High 1.64-7.28 [facility] Comment on above: Performed By: #### T YPEC #### [facility] (DEFAULT) [address] [place] [address] 93942 WBC (Bld) [#/Vol] 9.26 10*3/uL Normal 3.99-11.19 [facility] Comment on above: Performed By: #### T YPEC #### [facility] (DEFAULT) [address] [place] [address] 85381 CHEM 7 (LYTES,BUN,CREA,GLUC) on 01-19-2021 Anion gap [Moles/Vol] 12 mmol/L Normal 7-17 [facility] Comment on above: Performed By: #### T YPEC #### [facility] (DEFAULT) [address] [address] Chloride [Moles/Vol] 98 mmol/L Normal 98-108 [facility] Comment on above: Performed By: #### T YPEC #### [facility] (DEFAULT) [address] [place] [address] 93206 CO2 [Moles/Vol] 24 mmol/L Normal 22-30 [facility] Comment on above: Performed By: #### T YPEC #### [facility] (DEFAULT) [address] [place] [address] 06360 Creatinine [Mass/Vol] 0.55 mg/dL Normal 0.50-1.20 [facility] Comment on above: Performed By: #### T YPEC #### [facility] (DEFAULT) [address] [place] [address] 51799 EST GFR, >=60 Normal >=60 [facility] Comment on above: Performed By: #### T YPEC #### [facility] (DEFAULT) [address] [place] [address] 10264 EST GFR,Non >=60 Normal >=60 [facility] Comment on above: Performed By: #### T YPEC #### [facility] (DEFAULT) [address] [place] [address] 84276 Glucose [Mass/Vol] 147 mg/dL High 70-99 [facility] Comment on above: Performed By: #### T YPEC #### [facility] (DEFAULT) [address] [address] Osmolality [Osmolality] 277 mosm/kg Low 278-305 [facility] Comment on above: Performed By: #### T YPEC #### [facility] (DEFAULT) [address] [place] [address] 13524 Potassium [Moles/Vol] 3.7 mmol/L Normal 3.5-5.0 [facility] Comment on above: Performed By: #### T YPEC #### [facility] (DEFAULT) [address] [address] Sodium [Moles/Vol] 130 mmol/L Low 133-143 [facility] Comment on above: Performed By: #### T YPEC #### [facility] (DEFAULT) [address] [address] Urea nitrogen [Mass/Vol] 14 mg/dL Normal 7-22 [facility] Comment on above: Performed By: #### T YPEC #### [facility] (DEFAULT) [address] [address] Urea nitrogen/Creatinine [Mass ratio] 25 mg/mg Normal [facility] Comment on above: Performed By: #### T YPEC #### [facility] (DEFAULT) [address] [place] [address]87 [facility] 7 - EDon 01-19-2021 Anion gap [Moles/Vol] 10 mmol/L Normal 7-17 [facility] Comment on above: Performed By: ###Nikki ANDERSEN #### [facility] (DEFAULT) [address] [place] [address] 69963 Chloride [Moles/Vol] 96 mmol/L Low 98-108 [facility] Comment on above: Performed By: #### Rhonda ANDERSEN #### [facility] (DEFAULT) [address] [place] [address] 87446 CO2 [Moles/Vol] 23 mmol/L Normal 22-30 [facility] Comment on above: Performed By: ###Nikki ANDERSEN #### [facility] (DEFAULT) [address] [place] [address] 46366 Creatinine [Mass/Vol] 0.45 mg/dL Low 0.50-1.20 [facility] Comment on above: Performed By: ###Nikki ANDERSEN #### [facility] (DEFAULT) [address] [place] [address] 87254 EST GFR, >=60 Normal >=60 [facility] Comment on above: Performed By: ###Nikki ANDERSEN #### [facility] (DEFAULT) [address] [place] [address] 68601 EST GFR,Non >=60 Normal >=60 [facility] Comment on above: Performed By: ###Nikki ANDERSEN #### [facility] (DEFAULT) [address] [place] [address] 72622 Glucose [Mass/Vol] 123 mg/dL High 70-99 [facility] Comment on above: Performed By: #### Rhonda ANDERSEN #### [facility] (DEFAULT) [address] [address] Osmolality [Osmolality] 267 mosm/kg Low 278-305 [facility] Comment on above: Performed By: #### Rhonda ANDERSEN #### [facility] (DEFAULT) [address] [place] [address] 38624 Potassium [Moles/Vol] 3.6 mmol/L Normal 3.5-5.0 [facility] Comment on above: Performed By: #### Rhonda ANDERSEN #### [facility] (DEFAULT) [address] [place] [address] 59244 Sodium [Moles/Vol] 125 mmol/L Low 133-143 [facility] Comment on above: Performed By: #### Rhonda ANDERSEN #### [facility] (DEFAULT) [address] [place] [address] 86081 Urea nitrogen [Mass/Vol] 16 mg/dL Normal 7-22 [facility] Comment on above: Performed By: #### Rhonda ANDERSEN #### [facility] (DEFAULT) [address] [place] [address] 92783 Urea nitrogen/Creatinine [Mass ratio] 36 mg/mg Normal [facility] Comment on above: Performed By: #### Rhonda ANDERSEN #### [facility] (DEFAULT) [address] [place] [address] 28126 FERRITINon 01-19-2021 Ferritin [Mass/Vol] 278.0 ng/mL Normal 10.0-291.0 [facility] Comment on above: Performed By: #### C HM7, MGO, IPB #### [facility] (DEFAULT) [address] [place] [address] 41472 FUNGUS CULTUREon 01-19-2021 Bacteria identified Cx Nom (Unsp spec) NO GROWTH DAY Normal [facility] Comment on above: Performed By: #### T YPEC #### [facility] (DEFAULT) [address] [place] [address] 73227 HEPATIC FUNCTION PANELon Albumin [Mass/Vol] 3.0 g/dL Low 3.5-5.0 [facility] Comment on above: Performed By: #### Rhonda ANDERSEN #### [facility] (DEFAULT) [address] [place] [address] 47679 ALP [Catalytic activity/Vol] 90 U/L Normal 32-126 [facility] Comment on above: Performed By: ###Nikki ANDERSEN #### [facility] (DEFAULT) [address] [address] ALT [Catalytic activity/Vol] 21 U/L Normal 9-48 [facility] Comment on above: Performed By: #### Rhonda ANDERSEN #### [facility] (DEFAULT) [address] [address] AST [Catalytic activity/Vol] 46 U/L High 14-40 [facility] Comment on above: Performed By: ###Nikki ANDERSEN #### [facility] (DEFAULT) [address] [address] Bilirubin [Mass/Vol] 1.0 mg/dL Normal <1.5 [facility] Comment on above: Performed By: ###Nikki ANDERSEN #### [facility] (DEFAULT) [address] [address] Bilirubin.indirect [Mass/Vol] 0.2 mg/dL Normal <0.3 [facility] Comment on above: Performed By: ###Nikki ANDERSEN #### [facility] (DEFAULT) [address] [address] Protein [Mass/Vol] 6.0 g/dL Low 6.4-8.3 [facility] Comment on above: Performed By: ###Nikki ANDERSEN #### [facility] (DEFAULT) [address] [address] IRON/IRON BINDING/TRANSFERRI Non 01-19-2021 Iron [Mass/Vol] 12 ug/dL Low 40-174 [facility] Comment on above: Performed By: #### HUMBERTO REESE IPB #### [facility] (DEFAULT) [address] [address] Iron Saturation 5 % Low 20-55 [facility] Comment on above: Performed By: #### HUMBERTO REESE IPB #### [facility] (DEFAULT) [address] [place] [address] 40537 Total Iron Binding Capacity 261 mcg/dL Normal 250-425 [facility] Comment on above: Performed By: #### C HM7, MGO, IPB #### [facility] (DEFAULT) [address] [place] [address] 51126 Transferrin [Mass/Vol] 175 mg/dL Low 200-400 [facility] Comment on above: Performed By: #### C HM7, MGO, IPB #### [facility] (DEFAULT) [address] [place] [address] 21911 MAGNESIUMon 01-19-2021 Magnesium [Mass/Vol] 1.8 mg/dL Normal 1.6-2.6 [facility] Comment on above: Performed By: #### G ASALL #### [facility] (DEFAULT) [address] [place] [address] 29701 NOVEL CORONAVIRUS PCRon 12-23 SARS-CoV-2 (COVID-19) RNA CHACE+probe Ql (Unsp spec) Not detected Normal NOT DETECTED [facility] Comment on above: Order Comment: Viral transport [...] for use by authorized laboratories. Result Comment: [facility] Negative results do not preclude [...] deteriorating. Performed By: #### T YPEC #### [facility] (DEFAULT) [address] [place] [address] 15571 PHOSPHATE, INORGANICon 01-19 Phosphorous 2.1 mg/dL Low 2.2-4.6 [facility] Comment on above: Performed By: #### G ASALL #### [facility] (DEFAULT) [address] [place] [address] 03423 PT,INR,PTTon 01-19-2021 aPTT Coag (Bld) [Time] 37.8 s High 24.0-34.3 [facility] Comment on above: Performed By: #### C HM7 MGO, IPB #### [facility] (DEFAULT) [address] [place] [address] 33881 INR Coag (PPP) [Relative time] 1.2 {INR} High 0.9-1.1 [facility] Comment on above: Performed By: #### C HM7, MGO, IPB #### [facility] (DEFAULT) [address] [place] [address] 28382 PT Coag (PPP) [Time] 14.9 s High 11.9-14.2 [facility] Comment on above: Performed By: #### C HM7, MGO, IPB #### [facility] (DEFAULT) [address] [place] [address] 43000 aPTT Coag (Bld) [Time] 41.4 s High 24.0-34.3 [facility] Comment on above: Performed By: #### T YPEC #### [facility] (DEFAULT) [address] [place] [address] 10197 INR Coag (PPP) [Relative time] 1.3 {INR} High 0.9-1.1 [facility] Comment on above: Performed By: #### T YPEC #### [facility] (DEFAULT) [address] [place] [address] 63173 PT Coag (PPP) [Time] 15.5 s High 11.9-14.2 [facility] Comment on above: Performed By: #### T YPEC #### [facility] (DEFAULT) [address] [address] RAPID HIV-1/HIV-2 AB WITH P2 4 ANTIGENon 01-19-2021 Rapid Hiv-1/Hiv-2 Ab With P24 Antigen Non-Reactive Normal Non Reactive [facility] Comment on above: Performed By: #### T YPEC #### [facility] (DEFAULT) [address] [address] SCREEN: MRSA/MSSAon 01-20-20 21 Methicillin Resistant S. Aureus By Pcr Positive Abnormal Negative [facility] Comment on above: Order Comment: Colle ct [...] by the Clinical Microbiology Laboratory at The [facility]. It has not been cleared or approved by the FDA.The laboratory is regulated under CLIA as qualified to perform high-complexity testing. This test is used for clinical purposes. It should not be regarded as investigational or for research. Performed By: #### T YPEC #### [facility] (DEFAULT) [address] [address] Staphylococcus Aureus By Pcr Positive Abnormal Negative [facility] Comment on above: Order Comment: Colle ct [...] by the Clinical Microbiology Laboratory at [facility]. It has not been cleared or approved by the FDA.The laboratory is regulated under CLIA as qualified to perform high-complexity testing. This test is used for clinical purposes. It should not be regarded as investigational or for research. Performed By: #### T YPEC #### [facility] (DEFAULT) [address] [place] [address] 04095 SODIUMon 01-19-2021 Sodium [Moles/Vol] 126 mmol/L Low 133-143 [facility] Comment on above: Performed By: #### T YPEC #### [facility] (DEFAULT) [address] [place] [address] 63210 Sodium [Moles/Vol] 127 mmol/L Low 133-143 [facility] Comment on above: Performed By: #### C HM7, MGO, IPB #### [facility] (DEFAULT) [address] [address] TYPE AND SCREENon 01-19-2021 ABO/RH(D) TYPE Negative Normal [facility] Comment on above: Result Comment: @ 08:55 by LV1: @01/19/21 09:36 by LV1: Performed By: #### X M #### [facility] (DEFAULT) [address] [address] URINALYSISon 01-19-2021 Appearance (U) Clear Normal Clear [facility] Comment on above: Performed By: #### T YPEC #### [facility] (DEFAULT) [address] [address] Bacteria ABSENT Normal ABSENT [facility] Comment on above: Performed By: #### T YPEC #### [facility] (DEFAULT) [address] [address] Blood Urine Moderate Abnormal Negative [facility] Comment on above: Performed By: #### T YPEC #### [facility] (DEFAULT) [address] [address] Color (U) Yellow Normal Yellow [facility] Comment on above: Performed By: #### T YPEC #### [facility] (DEFAULT) [address] [place] [address] 26786 Glucose Ql (U) Negative Normal Negative [facility] Comment on above: Performed By: #### T YPEC #### [facility] (DEFAULT) [address] [place] [address] 81914 Ketones Ql (U) Negative Normal Negative [facility] Comment on above: Performed By: #### T YPEC #### [facility] (DEFAULT) [address] [place] [address] 15784 Leukocyte esterase Test strip Ql (U) Negative Normal Negative [facility] Comment on above: Performed By: #### T YPEC #### [facility] (DEFAULT) [address] [place] [address] 48075 Nitrites Urine Negative Normal Negative [facility] Comment on above: Performed By: #### T YPEC #### [facility] (DEFAULT) [address] [place] [address] 91507 pH (U) 6.5 [pH] Normal 5.0-7.0 [facility] Comment on above: Performed By: #### T YPEC #### [facility] (DEFAULT) [address] [place] [address] 68266 Protein Urine 30 mg/dL Abnormal Negative [facility] Comment on above: Performed By: #### T YPEC #### [facility] (DEFAULT) [address] [place] [address] 23652 RBC Urine 6-9 Abnormal 0-2 [facility] Comment on above: Performed By: #### T YPEC #### [facility] (DEFAULT) [address] [place] [address] 72316 Specific [place] Urine 1.039 High 1.001-1.035 [facility] Comment on above: Performed By: #### T YPEC #### [facility] (DEFAULT) [address] [place] [address] 00877 Squamous/Epithelial Cells 2-5/hpf = 2+ Normal 1/hpf = 1+, 2-5/hpf = 2+, 0/hpf = 0+, ABSENT [facility] Comment on above: Performed By: #### T YPEC #### [facility] (DEFAULT) [address] [place] [address] 55379 Urobilinogen Urine 1.0 E.U./dL Normal 0.2-1.0 [facility] Comment on above: Performed By: #### T YPEC #### [facility] (DEFAULT) [address] [place] [address] 86840 WBC Urine 0-5 Normal 0-5 [facility] Comment on above: Performed By: #### T YPEC #### [facility] (DEFAULT) [address] [place] [address] 49884 URINE CULTUREon 01-19-2021 Bacteria identified Cx Nom (U) No Growth Normal [facility] Comment on above: Order Comment: Peguero top vacutainer. Urine must be to the fill line to process (4mls). If minimum volume, send urine in a yellow top vacutainer tube. Performed By: #### T YPEC #### [facility] (DEFAULT) [address] [place] [address] 35922 XR ABDOMEN 1 VIEWon 01-20-20 21 XR [...] the orogastric tube in the stomach. Normal [facility] Chest - Portable APon 2019 Chest - Portable AP ____ Radiology Report Patient: KATARZYNA VARGAS Address: [place] [address] Date of : 1975 Service Date / Time: 05/01/20 0136 Visit Number: [id number] Order Number: [id number] Room Number: Attending Physician: Primary Care Physician: [...] cardiopulmonary process. Miki Flowers MD Dictation: JAE / 05/01/20 0344 Collection Systems Foreman: POWERSCRIB / [id number] Procedure performed by tech: Shira Hodges [facility] VNOTEon 05-01-2020 O[facility] EMERGENCY DEPARTMENT REPORT Patient: KATARZYNA VARGAS Date of : 1975 Unit#: [id number] DOS: 05/01/20 History of Present Illness Initial Date with Physician: May 01, 2020 Initial Time with Physician: 01:38 Chief Compaint Wants PICC line out History of Present Illness This is a 45-year-old female who was transferred by EMS from the local nursing facility wanting her PICC line removed. She reports being at [facility] for about 3 weeks for IV antibiotics and she has been currently getting vancomycin through PICC line they transferred her on April 30 2 acute post care and [...] is planning on going back home to [facility] for further definitive treatment. She reports [...] place she wishes to go back to [place]. I did speak with her at length [...] find her another alternative to a different halfway to continue the IV vancomycin. She declines [...] Plan Diagnosis 1 PICC line removal Disposition AMA RASTA CALLOWAY MD May 01, 2020 03:44 Sign dt/tm: 05/01/20 0352 RASTA CALLOWAY MD < > Dict Dr: RASTA CALLOWAY MD Dict dt/tm: 05/01/20343 Trans: [id number] Trans dt/tm: 05/01/20343 ADDE NDUM Addendum: RASTA CALLOWAY MD on [...] /RASTA CALLOWAY MD T - /TREVIN Normal [facility] HEPATITIS PROFILEon 05-14-20 19 HEPATITIS C AB Positive Abnormal [facility] HEPATITIS A VIRUS ANTIBODY IGM Negative Normal [facility] HEPATITIS B CORE AB IGM Negative Normal [facility] Comment on above: Result Comment: Test Performed By: [facility] [employer] [address] [place] [address] Insurance Adviser: Sugey Jacinto MD, PhD HEPATITIS B SURFACE ANTIGEN Negative Normal [facility] Comment on above: Result Comment: Test Performed By: [facility] [employer] [address] [place] [address] Insurance Adviser: Sugey Jacinto MD, PhD --- 05/14/19 1056 --- HBsAG previously reported as: Negative RAPID PLASMA REAGINon 2018 RAPID PLASMA REAGIN NONREACTIVE Normal NONREACTIVE [facility] Comment on above: Performed By: #### R [place] #### [facility] [place] [facility] [address] [place] [address] ALCOHOLon 05-11-2019 Ethanol [Mass/Vol] mg/dL Normal [facility] Comment on above: Result Comment: < 3 mg/dl NONE DETECTED 50-100 mg/dl MAY SHOW SIGNS OF INTOXICATION 300-500 mg/dl COMATOSE LEVEL Performed By: #### M N, ALC, HCG #### [facility] [place] [facility] [address] [place] [address] CBC with AUTO DIFFon 019 BAS0 % 1.10 % Normal 0-2 [facility] Comment on above: Performed By: #### C BC #### [address] [place] [address] Basophils (Bld) [#/Vol] 0.0 10*3/uL Normal 0-0.1 [facility] Comment on above: Performed By: #### C BC #### [address] [address] Eosinophils (Bld) [#/Vol] 0.2 10*3/uL Normal 0.0-1.80 [facility] Comment on above: Performed By: #### C BC #### [address] [address] Eosinophils/100 WBC (Bld) 3.5 % Normal 0-8 [facility] Comment on above: Performed By: #### C BC #### [address] [address] GRAN # 2.0 K/uL Low 2.2-9.1 [facility] Comment on above: Performed By: #### C BC #### [address] [address] GRAN % 46.0 % Normal 42-80 [facility] Comment on above: Performed By: #### C BC #### [address] [address] Hematocrit (Bld) [Volume fraction] 41.6 % Normal 37.0-47.0 [facility] Comment on above: Performed By: #### C BC #### [address] [address] Hemoglobin (Bld) [Mass/Vol] 14.5 g/dL Normal 12.0-16.0 [facility] Comment on above: Performed By: #### C BC #### [facility] [place] [facility] [address] [place] [address] Lymphocytes (Bld) [#/Vol] 1.8 10*3/uL Normal 1.0-4.0 [facility] Comment on above: Performed By: #### C BC #### [facility] [place] [facility] [address] [facility] [address] Lymphocytes/100 WBC (Bld) 40.6 % Normal 16-48 [facility] Comment on above: Performed By: #### C BC #### [facility] [place] [facility] [address] [place] [address] MCH (RBC) [Entitic mass] 34.7 g/dL Normal 31.0-36.0 [facility] Comment on above: Performed By: #### C BC #### [facility] [place] [facility] [address] [place] [address] MCV (RBC) [Entitic vol] 92.0 fL Normal 80-97 [facility] Comment on above: Performed By: #### C BC #### [facility] [place] [facility] [address] [place] [address] MEAN CORPUSCULAR HGB 32.0 pg Normal 26.0-32.0 [facility] Comment on above: Performed By: #### C BC #### [facility] [place] [facility] [address] [place] [address] Monocytes (Bld) [#/Vol] 0.4 10*3/uL Normal 0.1-1.7 [facility] Comment on above: Performed By: #### C BC #### [facility] [place] [facility] [address] [place] [address] Monocytes/100 WBC (Bld) 8.8 % Normal 3-9 [facility] Comment on above: Performed By: #### C BC #### [facility] [place] [facility] [address] [place] [address] Platelet mean volume (Bld) [Entitic vol] 8.0 fL Normal 6.6-10.5 [facility] Comment on above: Performed By: #### C BC #### [facility] [place] [facility] [address] [place] [address] Platelets (Bld) [#/Vol] 191 10*3/uL Normal 140-450 [facility] Comment on above: Performed By: #### C BC #### [facility] [place] [facility] [address] [place] [address] RBC (Bld) [#/Vol] 4.52 10*6/uL Normal 4.20-5.50 [facility] Comment on above: Performed By: #### C BC #### [facility] [place] [facility] [address] [place] [address] RED CELL DISTRI WIDTH 13.4 % Normal 11.0-15.5 [facility] Comment on above: Performed By: #### C BC #### [facility] [place] [facility] [address] [facility] [address] WBC (Bld) [#/Vol] 4.4 10*3/uL Normal 4.0-11.0 [facility] Comment on above: Performed By: #### C BC #### [facility] [place] [facility] [address] [place] [address] COMPREHENSIVE METABOLIC PANE Moe 05-11-2019 Albumin [Mass/Vol] 3.2 g/dL Normal 3.0-5.0 [facility] Comment on above: Performed By: #### M N, ALC, HCG #### [facility] [place] [facility] [address] [place] [address] Albumin/Globulin [Mass ratio] 0.9 {ratio} Low 1.1-1.8 [facility] Comment on above: Performed By: #### M N, ALC, HCG #### [facility] [address] [facility] [address] ALP [Catalytic activity/Vol] 144 U/L High 45-117 [facility] Comment on above: Performed By: #### M N, ALC, HCG #### [facility] [place] [facility] [address] [place] [address] ALT [Catalytic activity/Vol] 84 U/L High 12-78 [facility] Comment on above: Performed By: #### M N, ALC, HCG #### [facility] [place] [facility] [address] [facility] [place] [address] Anion gap [Moles/Vol] 8.0 mmol/L Low 11-23 [facility] Comment on above: Performed By: #### M N, ALC, HCG #### [address] [address] Bilirubin [Mass/Vol] 0.7 mg/dL Normal 0-1.0 [facility] Comment on above: Performed By: #### M N, ALC, HCG #### [facility] [place] [facility] [address] [facility] [place] [address] Calcium [Mass/Vol] 8.6 mg/dL Normal 8.5-10.1 [facility] Comment on above: Performed By: #### M N, ALC, HCG #### [address] [place] [address] Chloride [Moles/Vol] 105 mmol/L Normal 98-107 [facility] Comment on above: Performed By: #### M N, ALC, HCG #### [address] [place] [address] CO2 [Moles/Vol] 30.0 mmol/L Normal 21-32 [facility] Comment on above: Performed By: #### M N, ALC, HCG #### [address] [place] [address] Creatinine [Mass/Vol] 0.70 mg/dL Normal 0.4-1.2 [facility] Comment on above: Performed By: #### M N, ALC, HCG #### [address] [place] [address] GFR AM > 60.0 Normal [facility] Comment on above: Result Comment: THE NORMAL LEVEL OF GFR VARIES ACCORDING TO AGE, SEX, AND BODY SIZE. A GFR LEVEL OF LESS THAN 60 ML/MIN REPRESENTS LOSS OF THE ADULT LEVEL OF NORMAL KIDNEY FUNCTION. Performed By: #### M N, ALC, HCG #### [address] [place] [address] GFR/1.73 sq M.predicted MDRD (S/P/Bld) [Vol rate/Area] mL/min/{1.73_m2} Normal [facility] Comment on above: Performed By: #### M N, ALC, HCG #### [address] [place] [address] Globulin (S) [Mass/Vol] 3.7 g/dL Normal 2.5-4.6 [facility] Comment on above: Performed By: #### M N, ALC, HCG #### [address] [place] [address] Glucose [Mass/Vol] 82 mg/dL Normal 70-100 [facility] Comment on above: Performed By: #### M N, ALC, HCG #### [facility] [place] [facility] [address] [place] [address] Potassium [Moles/Vol] 3.6 mmol/L Normal 3.6-5.2 [facility] Comment on above: Performed By: #### M N, ALC, HCG #### [facility] [address] [place] [address] Protein [Mass/Vol] 6.9 g/dL Normal 6.0-8.3 [facility] Comment on above: Performed By: #### M N, ALC, HCG #### [facility] [address] [place] [address] SGOT/AST 64 U/L High 9-34 [facility] Comment on above: Performed By: #### M N, ALC, HCG #### [facility] [place] [facility] [address] [place] [address] Sodium [Moles/Vol] 139 mmol/L Normal 136-147 [facility] Comment on above: Performed By: #### M N, ALC, HCG #### [facility] [address] [place] [address] Urea nitrogen [Mass/Vol] 10.0 mg/dL Normal 7-18 [facility] Comment on above: Performed By: #### M N, ALC, HCG #### [facility] [address] [place] [address] ED.PDOCon 05-11-2019 ED.PDOC KATARZYNA VARGAS Female [id number] Attending provider: [facility] LUANNE [id number] Jimi Trent 1975 44 DOS: 05/11/19 Hx/Exam [...] 1204 Electronically Signed Date/Time: 05/11/19 1405 Normal [facility] HCG SERUM,QUALITATIVEon 04-23 HCG SERUM,QUALITATIVE Negative Normal [facility] Comment on above: Performed By: #### M N, ALC, HCG #### [address] [address] Office Visiton 11-19-2016 Dietary management education, guidance, and counseling (procedure) yes Invalid Interpretation Code [facility] Work Phone: Documentation of current medications (procedure) Done Invalid Interpretation Code [facility] Work Phone: Smoking cessation education (procedure) yes Invalid Interpretation Code [facility] Work Phone: Tobacco smoking status NHIS Never Invalid Interpretation Code [facility] Work Phone: Tobacco use [facility] Current every day smoker Invali d Interpretation Code [facility] Work Phone: Lab Report: Basic Metabolic Profile (BMP)on 08-29-2016 Anion gap 9 mmol/L Invalid Interpretation Code 5-15 [facility] Work Phone: BUN/Creatinine Ratio 12.2 RATIO Invalid Interpretation Code 10-20 [facility] Work Phone: Calcium 7.7 mg/dL Low 8.5-10.1 [facility] Work Phone: Chloride 98 mmol/L Invalid Interpretation Code 98-107 [facility] Work Phone: CO2 27.0 mmol/L Invalid Interpretation Code 21.0-32.0 [facility] Work Phone: Creatinine 92.00 mL/min Invalid Interpretation Code [facility] Work Phone: Creatinine 0.82 mg/dL Invalid Interpretation Code 0.55-1.02 [facility] Work Phone: eGFR (non-black) 99 mL/min/{1.73_m2} Invalid Interpretation Code >60 [facility] Work Phone: eGFR (non-black) 82 mL/min/{1.73_m2} Invalid Interpretation Code >60 [facility] Work Phone: Glucose 109 mg/dL Invalid Interpretation Code 70-110 [facility] Work Phone: Potassium 3.7 mmol/L Invalid Interpretation Code 3.5-5.1 [facility] Work Phone: Sodium 134 mmol/L Low 136-145 [facility] Work Phone: Urea nitrogen 10 mg/dL Invalid Interpretation Code 7-18 [facility] Work Phone: Lab Report: CBC-Complete Blo od Cnt No Diffon 08-29-2016 Erythrocytes (RBC) 3.84 10*6/uL Low 4.2-5.4 [facility] Work Phone: Hematocrit (HCT) 36.9 % Low 37-47 [facility] Work Phone: Hemoglobin (HGB) 12.2 g/dL Invalid Interpretation Code 12.0-15.0 [facility] Work Phone: MCH 31.8 pg Invalid Interpretation Code 27.0-32.0 [facility] Work Phone: MCHC 33.1 G/GL Invalid Interpretation Code 32-36 [facility] Work Phone: MCV 96.1 fL Invalid Interpretation Code 81-99 [facility] Work Phone: Platelets 294 10*3/mm3 Invalid Interpretation Code 150-450 [facility] Work Phone: PMV by Goldie 9.3 fL Invalid Interpretation Code 6.2-12.0 [facility] Work Phone: RDW-CA 13.5 % Invalid Interpretation Code 11.6-14.6 [facility] Work Phone: red blood cell distribution width, size density 46.9 fL High 35.1-43.9 [facility] Work Phone: WBC (Leukocytes) 14.6 10*3/uL High 4.4-11.0 [facility] Work Phone: Microbiology: MRSA/SAID SCRE ENon 08-24-2016 GE use only - for [employer] import when terms are not otherwise specified . Invalid Interpretation Code [employer] [facility] Work Phone: Lab Report: Urinalysis, Rout ine (Dipstick)on 08-23-2016 Nitrite Urine Negative Invalid Interpretation Code Negative [facility] [employer] [facility] Work Phone: [phone] Occult Blood, urine Negative Invalid Interpretation Code Negative [facility] [employer] [facility] Work Phone: [phone] specific gravity, urine 1.015 Invalid Interpretation Code 1.002-1.030 [employer] [facility] Work Phone: [phone] Urine, bilirubin presence Negative Invalid Interpretation Code Negative [facility] [employer] [facility] Work Phone: [phone] Urine, clarity Clear Invalid Interpretation Code Clear [employer] [facility] Work Phone: [phone] Urine, color Yellow Invalid Interpretation Code Yellow [facility] [employer] [facility] Work Phone: [phone] Urine, glucose presence Normal mg/dl Invalid Interpretation Code Normal [facility] Work Phone: [phone] Urine, ketones presence Negative Invalid Interpretation Code Negative [facility] Work Phone: [phone] Urine, leukocyte esterase presence Negative Invalid Interpretation Code Negative [facility] [facility] Work Phone: [phone] Urine, pH 6.0 [pH] Invalid Interpretation Code 5.0 - 8.0 [facility] Work Phone: [phone] Urine, protein Negative Invalid Interpretation Code Negative [employer] [facility] Work Phone: [phone] urobilinogen, urine, by dipstick Normal mg/dl Invalid Interpretation Code Normal [employer] [facility] Work Phone: Lab Report: Alcohol, Blood ( Medical)-Serumon 11-09-2015 Ethanol 6.0 mg/dL Invalid Interpretation Code [employer] [facility] Work Phone: Lab Report: CBC W/Diff, Auto matedon 11-09-2015 Basophils/100 leukocytes 1.0 % Invalid Interpretation Code 0-1 [employer] [facility] Work Phone: [phone] Eosinophils/100 leukocytes 4.2 % Invalid Interpretation Code 0-5 [employer] [facility] Work Phone: [phone] immature granulocytes, percentage of total cells, blood 0.000 % Invalid Interpretation Code 0.0-0.9 [facility] [employer] [facility] Work Phone: [phone] Lymphocytes 1.15 X10 3/UL Invalid Interpretation Code 0.83-4.51 [facility] [facility] Work Phone: [phone] Lymphocytes/100 leukocytes 22.1 % Invalid Interpretation Code 19-41 [facility] [facility] Work Phone: [phone] Monocytes/100 leukocytes 7.1 % Invalid Interpretation Code 0-10 [facility] [facility] Work Phone: [phone] neutrophil count, blood 3.4 X10 3/UL Invalid Interpretation Code 2.0-7.7 [facility] [facility] Work Phone: [phone] Neutrophils/100 leukocytes 65.6 % Invalid Interpretation Code 47-70 [facility] [employer] [facility] Work Phone: [phone] Lab Report: ,Serum, hCG Quali.on 11-09-2015 B-HCG m[IU]/mL Invalid Interpretation Code =>Qualitative [facility] [employer] Work Phone: [phone] Lab Report: Urinalysis, Comp leteon 11-09-2015 amorphous sediment, urine 3+ Invalid Interpretation Code [facility] [employer] [facility] Work Phone: [phone] Urine, bacteria in sediment 0 /[HPF] Invalid Interpretation Code None Seen [facility] [facility] Work Phone: [phone] Urine, epithelial cells in sediment 0-5 SEEN Invalid Interpretation Code 5-10 [facility] [facility] Work Phone: [phone] Urine, erythrocytes in sediment by volume 0 SEEN Invalid Interpretation Code 0-5 [facility] [employer] [facility] Work Phone: [phone] Urine, mucus presence in sediment 0 SEEN Invalid Interpretation Code [employer] [facility] Work Phone: WBC (Leukocytes) 0 SEEN Invalid Interpretation Code 0-5 [facility] [employer] [facility] Work Phone: Lab Report: Urine Drug Scree n (VISTA)on 11-09-2015 barbiturates screen, urine Negative Invalid Interpretation Code < 200 ng/mL [facility] [employer] [facility] Work Phone: Ecstasy (MDMA) Screen, urine Negative Invalid Interpretation Code < 500 ng/mL [facility] [facility] Work Phone: [phone] phencyclidine screen, urine Negative Invalid Interpretation Code < 25 ng/mL [facility] [facility] Work Phone: [phone] Urine, amphetamines presence Negative Invalid Interpretation Code <1000 ng/mL [facility] [facility] Work Phone: [phone] Urine, benzodiazepines presence Negative Invalid Interpretation Code < 200 ng/mL [facility] [facility] Work Phone: [phone] Urine, cocaine presence Positive High < 300 ng/mL [facility] [employer] [facility] Work Phone: Urine, methadone presence Negative Invalid Interpretation Code < 300 ng/mL [facility] [employer] [facility] Work Phone: Urine, opiates presence Positive High < 300 ng/mL [facility] [employer] [facility] Work Phone: Urine, tetrahydrocannabinol presence Positive High < 50 ng/mL [facility] [employer] [facility] Work Phone: Replaced Document: (P) Pregn shakir,Serum,hCG Quali.on 11-09-2015 beta HCG, serum, qualitative Negative Invalid Interpretation Code 0-9 Nonpreg [facility] [employer] [facility] Work Phone: Lab Report: Partial Thrombop last Timeon 04-12-2015 aPTT 33.0 s Invalid Interpretation Code 24.1-36.2 [facility] [employer] [facility] Work Phone: Lab Report: Prothrombin Time w/INRon 04-12-2015 Coagulation tissue factor induced in platelet poor plasma 12.3 s Invalid Interpretation Code 11.7-14.9 [facility] [employer] [facility] Work Phone: [phone] INR in blood by coagulation 0.9 {INR} Invalid Interpretation Code [facility] [employer] [facility] Work Phone: Lab Report: CBCDon 4 Absolute Neutrophil count 7.0 X10 3/UL Normal 2.0-7.7 [facility] [employer] [facility] Work Phone: Vital Signs Date Time Vital Sign Value Performing Clinician Facility 04-12-2025 19:36-0400 Body temperature 98.4 [degF] Dr. Darrel Veloz DO Work Phone: [facility] 04-12-2025 19:36-0400 Diastolic blood pressure 61 mm[Hg] Dr. Darrel Veloz DO Work Phone: [facility] 04-12-2025 19:36-0400 Heart rate 64 /min Dr. Darrel Veloz DO Work Phone: [facility] 04-12-2025 19:36-0400 Respiratory rate 18 /min Dr. Darrel Veloz DO Work Phone: [facility] 04-12-2025 19:36-0400 SaO2% (BldA) [Mass fraction] 99 % Dr. Darrel Veloz DO Work Phone: [facility] 04-12-2025 19:36-0400 Systolic blood pressure 121 mm[Hg] Dr. Darrel Veloz DO Work Phone: [facility] 04-12-2025 16:44-0400 Body height 172.[address] Darrel Veloz DO Work Phone: [facility] 04-12-2025 16:44-0400 Body mass index (BMI) [Ratio] 27.3 kg/m2 Dr. Darrel Veloz DO Work Phone: [facility] 04-12-2025 16:44-0400 Body weight 81.[address] Darrel Veloz DO Work Phone: [facility] 04-08-2025 18:44-0400 Body height 172.7 cm Kaley Taveras DO Work Phone: [facility] 04-08-2025 18:44-0400 Body mass index (BMI) [Ratio] 27.37 kg/m2 Kaley Taveras DO Work Phone: [facility] 04-08-2025 18:44-0400 Body temperature 99.1 [degF] Kaley Taveras DO Work Phone: [facility] 04-08-2025 18:44-0400 Body weight 81.65 kg Kaley Taveras DO Work Phone: [facility] 04-08-2025 18:44-0400 Diastolic blood pressure 63 mm[Hg] Kaley Taveras DO Work Phone: [facility] 04-08-2025 18:44-0400 Heart rate 89 /min Kaley Taveras DO Work Phone: [facility] 04-08-2025 18:44-0400 Respiratory rate 16 /min Kaley Taveras DO Work Phone: [facility] 04-08-2025 18:44-0400 SaO2% (BldA) [Mass fraction] 99 % Kaley Taveras DO Work Phone: [facility] 04-08-2025 18:44-0400 Systolic blood pressure 108 mm[Hg] Kaley Taveras DO Work Phone: [facility] 04-01-2025 16:43-0400 Body temperature 98 [degF] Dr. Darrel Veloz DO Work Phone: [facility] 04-01-2025 16:43-0400 Diastolic blood pressure 64 mm[Hg] Dr. Darrel Veloz DO Work Phone: [facility] 04-01-2025 16:43-0400 Heart rate 62 /min Dr. Darrel Veloz DO Work Phone: [facility] 04-01-2025 16:43-0400 Respiratory rate 25 /min Dr. Darrel Veloz DO Work Phone: [facility] 04-01-2025 16:43-0400 SaO2% (BldA) [Mass fraction] 96 % Dr. Darrel Veloz DO Work Phone: [facility] 04-01-2025 16:43-0400 Systolic blood pressure 119 mm[Hg] Dr. Darrel Veloz DO Work Phone: [facility] 04-01-2025 11:22-0400 Body height 172.[address] Darrel Veloz DO Work Phone: [facility] 04-01-2025 11:22-0400 Body mass index (BMI) [Ratio] 27.6 kg/m2 Dr. Darrel Veloz DO Work Phone: [facility] 04-01-2025 11:22-0400 Body weight 82.[address] Darrel Veloz DO Work Phone: [facility] 03-28-2025 14:35-0400 Body height 170.[address] Darrel Veloz DO Work Phone: [facility] 03-28-2025 14:35-0400 Body temperature 97.5 [degF] Dr. Darrel Veloz DO Work Phone: [facility] 03-28-2025 14:35-0400 Diastolic blood pressure 80 mm[Hg] Dr. Darrel Veloz DO Work Phone: [facility] 03-28-2025 14:35-0400 Heart rate 86 /min Dr. Darrel Veloz DO Work Phone: [facility] 03-28-2025 14:35-0400 Respiratory rate 16 /min Dr. Darrel Veloz DO Work Phone: [facility] 03-28-2025 14:35-0400 SaO2% (BldA) [Mass fraction] 98 % Dr. Darrel Veloz DO Work Phone: [facility] 03-28-2025 14:35-0400 Systolic blood pressure 155 mm[Hg] Dr. Darrel Veloz DO Work Phone: [facility] 03-19-2025 15:08-0400 Diastolic blood pressure 70 mm[Hg] Dr. Darrel Veloz DO Work Phone: [facility] 03-19-2025 15:08-0400 Heart rate 71 /min Dr. Darrel Veloz DO Work Phone: [facility] 03-19-2025 15:08-0400 Respiratory rate 16 /min Dr. Darrel Veloz DO Work Phone: [facility] 03-19-2025 15:08-0400 SaO2% (BldA) [Mass fraction] 99 % Dr. Darrel Veloz DO Work Phone: [facility] 03-19-2025 15:08-0400 Systolic blood pressure 112 mm[Hg] Dr. Darrel Veloz DO Work Phone: [facility] 03-19-2025 13:44-0400 Body height 170.[address] Darrel Veloz DO Work Phone: [facility] 03-19-2025 13:44-0400 Body mass index (BMI) [Ratio] 29.3 kg/m2 Dr. Darrel Veloz DO Work Phone: [facility] 03-19-2025 13:44-0400 Body temperature 98.7 [degF] Dr. Darrel Veloz DO Work Phone: [facility] 03-19-2025 13:44-0400 Body weight [address] Darrel Veloz DO Work Phone: [facility] 06-30-2024 15:34-0400 Body temperature 97 [degF] Rush Maxwell PA-C Work Phone: [facility] 06-30-2024 15:34-0400 Diastolic blood pressure 70 mm[Hg] Rush Maxwell PA-C Work Phone: [facility] 06-30-2024 15:34-0400 Heart rate 64 /min Rush Maxwell PA-C Work Phone: [facility] 06-30-2024 15:34-0400 Respiratory rate 16 /min Rush Maxwell PA-C Work Phone: [facility] 06-30-2024 15:34-0400 SaO2% (BldA) [Mass fraction] 99 % Rush Maxwell PA-C Work Phone: [facility] 06-30-2024 15:34-0400 Systolic blood pressure 108 mm[Hg] Rush Maxwell PA-C Work Phone: [facility] 01-19-2024 22:33-0400 Diastolic blood pressure 69 mm[Hg] [facility] 01-19-2024 22:33-0400 Heart rate 81 /min [facility] 01-19-2024 22:33-0400 Respiratory rate 20 /min [facility] 01-19-2024 22:33-0400 SaO2% (BldA) [Mass fraction] 99 % [facility] 01-19-2024 22:33-0400 Systolic blood pressure 130 mm[Hg] [facility] 01-19-2024 21:07-0400 Body height 172.[address] [facility] 01-19-2024 21:07-0400 Body temperature 98.3 [degF] [facility] 12-07-2023 08:37-0400 Body temperature 97.9 [degF] [facility] 12-07-2023 08:37-0400 Diastolic blood pressure 76 mm[Hg] [facility] 12-07-2023 08:37-0400 Heart rate 66 /min [facility] 12-07-2023 08:37-0400 Respiratory rate 16 /min [facility] 12-07-2023 08:37-0400 SaO2% (BldA) [Mass fraction] 98 % [facility] 12-07-2023 08:37-0400 Systolic blood pressure 118 mm[Hg] [facility] 12-07-2023 04:39-0400 Body height 170.[address] [facility] 12-07-2023 04:39-0400 Body mass index (BMI) [Ratio] 49.9 kg/m2 [facility] 12-07-2023 04:39-0400 Body weight 144.[address] [facility] 07-18-2023 13:42-0400 Body height 172.7 cm Geoff Alcantar MD Work Phone: [facility] [place] Comment on above: per patient 07-18-2023 13:42-0400 Body mass index (BMI) [Ratio] 47.1 kg/m2 Geoff Alcantar MD Work Phone: [facility] 07-18-2023 13:42-0400 Body temperature 97.7 [degF] Geoff Alcantar MD Work Phone: [facility] 07-18-2023 13:42-0400 Body weight 140.52 kg Geoff Alcantar MD Work Phone: [facility] 07-18-2023 13:42-0400 Diastolic blood pressure 60 mm[Hg] Geoff Alcantar MD Work Phone: [facility] 07-18-2023 13:42-0400 Heart rate 73 /min Geoff Alcantar MD Work Phone: [facility] 07-18-2023 13:42-0400 Respiratory rate 16 /min Geoff Alcantar MD Work Phone: [facility] 07-18-2023 13:42-0400 Systolic blood pressure 90 mm[Hg] Geoff Alcantar MD Work Phone: [facility] 05-17-2023 07:50-0400 Diastolic blood pressure 67 mm[Hg] [facility] 05-17-2023 07:50-0400 Heart rate 64 /min [facility] 05-17-2023 07:50-0400 Respiratory rate 16 /min [facility] 05-17-2023 07:50-0400 SaO2% (BldA) [Mass fraction] 99 % [facility] 05-17-2023 07:50-0400 Systolic blood pressure 118 mm[Hg] [facility] 05-17-2023 06:04-0400 Body height 170.[address] [facility] 05-17-2023 06:04-0400 Body mass index (BMI) [Ratio] 43.8 kg/m2 [facility] 05-17-2023 06:04-0400 Body temperature 96.8 [degF] [facility] 05-17-2023 06:04-04[address] Body weight [address] [facility] 02-07-2023 00:57-0400 Diastolic blood pressure 67 mm[Hg] [facility] 02-07-2023 00:57-0400 Heart rate 75 /min [facility] 02-07-2023 00:57-0400 Respiratory rate 18 /min [facility] 02-07-2023 00:57-0400 SaO2% (BldA) [Mass fraction] 95 % [facility] 02-07-2023 00:57-0400 Systolic blood pressure 101 mm[Hg] [facility] 02-06-2023 22:44-0400 Inhaled oxygen flow rate 2 L/min [facility] 02-06-2023 21:12-0400 Body height 172.[address] [facility] 02-06-2023 21:12-0400 Body mass index (BMI) [Ratio] 42.7 kg/m2 [facility] 02-06-2023 21:12-0400 Body temperature 97.5 [degF] [facility] 02-06-2023 21:12-0400 Body weight 127.[address] [facility] 11-07-2022 10:10-0500 Diastolic blood pressure 102 mm[Hg] Nely Cabezas MD Work Phone: [facility] 11-07-2022 10:10-0500 Heart rate 108 /min Nely Cabezas MD Work Phone: [facility] 11-07-2022 10:10-0500 Systolic blood pressure 126 mm[Hg] Nely Cabezas MD Work Phone: [facility] 06-08-2015 09:46-0400 BMI (Body Mass Index) 32.63 kg/m2 Lucretia Peña Carnad Work Phone: 06-08-2015 09:46-0400 Body Temperature 98.4 [degF] Lucretia Peña [facility] [employer] [facility] Work Phone: 06-08-2015 09:46-0400 BP Diastolic 82 mm[Hg] Lucretia Peña [facility] [employer] [facility] Work Phone: 06-08-2015 09:46-0400 BP Systolic 136 mm[Hg] Lucretia Peña [facility] [employer] [facility] Work Phone: 06-08-2015 09:46-0400 Pulse (Heart Rate) 70 /min Lucretia Peña [facility] [employer] [facility] Work Phone: 06-08-2015 09:46-0400 Respiratory Rate 16 /min Lucretia Peña [facility] Work Phone: 06-08-2015 09:46-0400 Weight 97.34 kg Lucretia Peña [facility] [employer] [facility] Work Phone: 05-09-2015 10:02-0400 BSA (Body Surface Area) 2.14 m2 [facility] Work Phone: 05-09-2015 10:02-0400 Pulse Oximetry 100 % Lucretiagianna Peña [facility] [employer] [facility] Work Phone: 07-26-2014 09:18-0500 Height 172.72 cm Lucretiagianna Peña [facility] [employer] [facility] Work Phone: Encounters Encounter Date Encounter Type Care Provider Facility Start: 05-04-2025 End: 05-04-2025 Nursing evaluation of patient and report Nurse [facility] Work Phone: Urology Comment on above: Neurogenic bladder ( Primary Dx) Start: 05-04-2025 End: 05-04-2025 ambulatory DARREL VELOZ Facility:[facility] Start: 04-12-2025 End: 04-12-2025 Emergency department patient visit Dr. Darrel Veloz DO Work Phone: -Emergency Department Work Phone: Start: 04-08-2025 End: 04-08-2025 Emergency department patient visit Kaley Taveras DO Work Phone: [facility] Comment on above: Suprapubic catheter (CMS/HCC V24, CMS/HCC V28) (Primary Dx) Start: 04-08-2025 End: 04-08-2025 Evaluation and management of inpatient Kaley Taveras DO Work Phone: [facility] Start: 04-01-2025 End: 04-01-2025 Emergency [...] evaluation of patient and report Nurse [facility] Work Phone: Urology Comment on above: Neurogenic bladder ( Primary Dx); Urinary retention Start: 02-02-2025 End: 02-02-2025 ambulatory DARREL VELOZ Facility:[facility] Start: 01-06-2025 End: 01-06-2025 Telephone encounter Rush Maxwell PA-C Work Phone: Urology Comment on above: Orders Start: 01-05-2025 End: 01-05-2025 Nursing evaluation of patient and report Nurse [facility] Work Phone: Urology Comment on above: Neurogenic bladder ( Primary Dx) Start: 01-05-2025 End: 01-05-2025 [facility] Facility:[facility] Start: 12-08-2024 End: 12-08-2024 Nursing evaluation of patient and report Nurse [facility] Work Phone: Urology Comment on above: Neurogenic bladder ( Primary Dx) Start: 12-08-2024 End: 12-08-2024 [facility] Facility:[facility] Start: 11-03-2024 End: 11-03-2024 [facility] Facility:[facility] Start: 11-03-2024 End: 11-03-2024 Nursing evaluation of patient and report Nurse [facility] Work Phone: Urology Comment on above: Neurogenic bladder ( Primary Dx) Start: 10-07-2024 [facility] Facility: [facility] Start: 10-06-2024 End: 10-07-2024 [facility] Facility:[facility] Start: 10-06-2024 End: 10-06-2024 Nursing evaluation of patient and report Nurse [facility] Work Phone: Urology Comment on above: Chronic suprapubic c atheter (HCC) (Primary Dx); Neurogenic bladder Start: 09-28-2024 [facility] Facility: [facility] Start: 09-25-2024 End: 09-25-2024 Emergency department patient visit [facility] Facility:[facility] Start: 09-11-2024 End: 09-11-2024 [facility] Facility:[facility] Start: 08-25-2024 End: 08-25-2024 Nursing evaluation of patient and report Nurse [facility] Work Phone: Urology Comment on above: Neurogenic bladder ( Primary Dx) Start: 08-25-2024 End: 08-25-2024 [facility] Facility:[facility] Start: 08-25-2024 End: 08-28-2024 Telephone encounter Rush Maxwell PA-C Work Phone: Urology Comment on above: Patient Question; Me dication Problem; Orders Start: 07-28-2024 End: 07-28-2024 [facility] Facility:[facility] Start: 07-28-2024 End: 07-28-2024 Nursing evaluation of patient and report Nurse [facility] Work Phone: Urology Comment on above: Neurogenic bladder ( Primary Dx) Start: 07-02-2024 End: 07-02-2024 Telephone encounter Rush Maxwell PA-C Work Phone: Urology Comment on above: Results Start: 06-30-2024 End: 06-30-2024 [facility] Facility:[facility] Start: 06-30-2024 End: 06-30-2024 Patient encounter procedure Rush Maxwell PA-C Work Phone: Urology Comment on above: Neurogenic bladder ( Primary Dx); Screening for genitourinary condition; Hematuria, unspecified type; Bladder spasm Start: 05-26-2024 End: 05-26-2024 Nursing evaluation of patient and report Nurse [facility] Work Phone: Urology Comment on above: Neurogenic bladder ( Primary Dx) Start: 05-26-2024 End: 05-26-2024 [facility] Start: 04-07-2024 End: 04-07-2024 Nursing evaluation of patient and report Nurse [facility] Work Phone: Urology Comment on above: Neurogenic bladder ( Primary Dx) Start: 03-03-2024 End: 03-03-2024 Nursing evaluation of patient and report Nurse [facility] Work Phone: Urology Comment on above: Neurogenic bladder ( Primary Dx) Start: 01-19-2024 End: 01-19-2024 Emergency department patient visit [facility]-Emergency Department Work Phone: Start: 01-15-2024 Telephone encounter Rush cunningham PA-C Work Phone: Urology Comment on above: Appointment Start: 12-13-2023 Telephone encounter Rush cunningham PA-C Work Phone: Urology Comment on above: Patient Question (Ne eds bag) Start: 12-07-2023 End: 12-07-2023 Emergency department patient visit [facility]-Emergency Department Work Phone: Start: 12-06-2023 Telephone encounter Rush Forde marisa PA-C Work Phone: OB/Gynecology Comment on above: Results Start: 12-03-2023 End: 12-03-2023 Nursing evaluation of patient and report Nurse [facility] Work Phone: Urology Comment on above: Neurogenic bladder ( Primary Dx) Start: 11-22-2023 End: 11-22-2023 ambulatory [facility] Work Phone: Start: 11-22-2023 End: 11-22-2023 Patient encounter procedure [facility] [place] Work Phone: Start: 11-18-2023 End: 11-18-2023 ambulatory [facility] Work Phone: Start: 11-18-2023 End: 11-18-2023 Patient encounter procedure [facility] Regis Jensen [facility] Start: 08-12-2023 End: 08-12-2023 ambulatory [facility] Work Phone: Start: 08-12-2023 End: 08-12-2023 Departed Referred [facility] Start: 07-30-2023 End: 07-30-2023 Nursing evaluation of patient and report Nurse [facility] Work Phone: Urology Comment on above: Atonic neurogenic bl adder (Primary Dx) Start: 07-26-2023 Telephone encounter Rush cunningham PA-C Work Phone: Urology Comment on above: Orders Start: 07-25-2023 ambulatory Minh Zupke PA Work Phone: [facility] Start: 07-23-2023 Documentation procedure Mallor y Zupke PA Work Phone: [facility] Comment on above: EGD Start: 07-18-2023 End: 07-18-2023 ambulatory [facility] Start: 07-18-2023 Patient encounter status Mei sol Kip PA Work Phone: [facility] Start: 07-18-2023 Preoperative state Minh Flynn sudeep PA Work Phone: [facility] Start: 07-18-2023 Telephone encounter Minh Muniznhung PA Work Phone: [facility] Comment on above: Financial File (Shirley ncial File 2022); Surgery Scheduling (Initial scheduling-orders placed) Start: 07-18-2023 End: 07-18-2023 Office outpatient new 45 minutes Geoff Alcantar MD Work Phone: [facility] Comment on above: Tobacco use (Primary Dx); Back pain, unspecified back location, unspecified back pain laterality, unspecified chronicity; Gastroesophageal reflux disease without esophagitis; Morbid obesity with BMI of 45.0-49.9, adult ([facility]); skilled nursing resident; Wheelchair dependent Start: 07-15-2023 End: 07-15-2023 ambulatory [facility] Work Phone: Start: 07-15-2023 End: 07-15-2023 Departed Referred [facility] Start: 06-21-2023 Telephone encounter Cristina moreno APRN.CNP Work Phone: OB/Gynecology Comment on above: Results Start: 06-17-2023 End: 06-17-2023 Departed Referred [facility] Start: 06-04-2023 End: 06-04-2023 Departed Referred [facility] Start: 05-22-2023 End: 05-22-2023 Patient encounter procedure Nely Cabezas MD Work Phone: [facility] Comment on above: History of spinal co rd injury (Primary Dx); Spastic quadriparesis (HCC) Start: 05-20-2023 End: 05-20-2023 Departed Referred [facility] Start: 05-17-2023 End: 05-17-2023 Emergency department patient visit [facility]-Emergency Department Work Phone: Start: 04-30-2023 Registered Referred [facility] Start: 04-22-2023 Registered Referred [facility] Start: 03-25-2023 Registered Referred [facility] Start: 03-17-2023 Registered Referred [facility] Start: 03-03-2023 End: 03-03-2023 ambulatory [facility] Work Phone: Start: 03-03-2023 End: 03-03-2023 Departed Referred [facility] Start: 02-25-2023 Registered Referred [facility] Start: 02-06-2023 End: 02-07-2023 Emergency department patient visit [facility]-Emergency Department Start: 01-28-2023 End: 01-28-2023 Departed Referred [facility] Start: 12-31-2022 End: 12-31-2022 Departed Referred [facility] Start: 12-03-2022 End: 12-03-2022 ambulatory [facility] Work Phone: Start: 12-03-2022 End: 12-03-2022 Departed Referred [facility] Start: 12-03-2022 Registered Referred [facility] Start: 11-07-2022 End: 11-07-2022 Patient encounter procedure Nely Cabezas MD Work Phone: [facility] Comment on above: Spastic quadriparesi s (HCC) (Primary Dx); Spasticity; Abnormality of gait Start: 11-05-2022 End: 11-05-2022 ambulatory [facility] Work Phone: Start: 11-05-2022 End: 11-05-2022 Departed Referred [facility] Start: 10-08-2022 End: 10-08-2022 ambulatory [facility] Work Phone: Start: 10-08-2022 End: 10-08-2022 Departed Referred [facility] Start: 09-27-2022 Telephone encounter Chetan Rodríguez CLASSIFICATION CASE MANAGER - RANGE MOUNTER Work Phone: [facility] [place] Comment on above: Appointment Request Start: 08-09-2022 End: 08-09-2022 Patient encounter procedure Nely Cabezas MD Work Phone: [facility] Comment on above: Spastic quadriparesi s (HCC) (Primary Dx); Spasticity; Abnormality of gait Start: 03-21-2022 End: 03-21-2022 Patient encounter procedure Nely Cabezas MD Work Phone: [facility] Comment on above: Spastic quadriparesi s (HCC) (Primary Dx); Abnormality of gait; Contracture of joint of multiple sites Start: 03-07-2022 Telephone encounter Deyanira Petersen CLASSIFICATION CASE MANAGER.RANGE MOUNTER Work Phone: [facility] Comment on above: Insurance Authorizat ion Start: 02-16-2022 End: 02-16-2022 Patient encounter procedure Deyanira Petersen CLASSIFICATION CASE MANAGER.RANGE MOUNTER Work Phone: [facility] Comment on above: Spastic quadriparesi s (HCC) (Primary Dx); Paraparesis of both lower limbs (HCC); History of spinal cord injury; Spinal epidural abscess; Abnormality of gait; Impaired mobility and ADLs; Anxiety; Depression, unspecified depression type Start: 03-14-2021 ambulatory [place] Jennifer [facility] Facilit y:[facility] Start: 01-19-2021 End: 02-09-2021 Evaluation and management of inpatient DARREL ASTUDILLOUTZMAN Facility:[facility] Procedures Date Procedure Procedure Detail Performing Clinician [...] Start: 04-08-2025 YELLOW URINE NO ADDITIVE Kaley Camposughan DO Work Phone: Start: 04-01-2025 Urnls dip [...] panel - S tasneem or Plasma Cristina Marlo CLASSIFICATION CASE MANAGER.RANGE MOUNTER Work Phone: Start: 02-01-2021 Antibody screen DARREL GARCIA Comment on above: Performed By: #### T YPEC #### [facility] (DEFAULT) [address] [place] [address] Start: 01-28-2021 Antibody screen DARREL GARCIA Comment on above: Performed By: #### X M #### [facility] (DEFAULT) [address] [place] [id number] Start: 01-19-2021 Antibody screen DARREL GARCIA Comment on above: Performed By: #### X M #### [facility] (DEFAULT) [address] [place] [id number] Start: 07-20-2016 End: 08-24-2016 X-ray exam, knee, [...] X-ray exam, knee, 4 or more Linus Blanco dd Work Phone: Urine culture Plan of Treatment Date Care Activity Detail Author Start: 2036 RSV Immunization aged 60 or older (1 - 1-dose 60+ series) RSV Immunization aged 60 or older (1 - 1-dose 60+ series) [facility] Start: 05-17-2033 DTaP,Tdap,and Td Vaccines (3 - Td or Tdap) DTaP,Tdap,and Td Vaccines (3 - Td or Tdap) [facility] Start: 05-17-2033 DTaP/Tdap/Td Vaccines (7 - Td or Tdap) DTaP/Tdap/Td Vaccines (7 - Td or Tdap) [facility] Start: 05-17-2033 Urine microalbumin profile [facility] Start: 07-30-2027 Lipid 1996 panel - Serum or Plasma Lipid Screening [facility] Start: 07-30-2027 Lipid panel [facility] Start: 07-30-2027 LIPID SCREEN LIPID SCREEN [facility] Start: 02-07-2026 Zoster Vaccines (1 of 2) Zoster Vaccines (1 of 2) [facility] Start: 07-30-2025 Diabetes Screening Diabetes Screening [facility] Start: 07-06-2025 End: 07-06-2025 Patient encounter procedure 07/06/2025 3:30 PM EDT Office Visit Urology [address] [place] [address] Rush Maxwell PA-C [address] [place] [address] YEARLY: Neurogenic bladder. Urology Comment on above: YEARLY: Neurogenic bladder. Start: 06-08-2025 End: 06-08-2025 Nursing evaluation of patient and report 06/08/2025 10:40 AM EDT Nurse Visit Urology [address] [place] [address] Wstr, Nurse [facility] [address] [place] [address] SPT Catheter Change. Last change 05/04/2025. Urology Comment on above: SPT Catheter Change. Last change 025. Start: 05-24-2025 Influenza vaccination [facility] Start: 04-12-2025 End: 04-12-2025 [facility] Start: 04-01-2025 [facility] Start: 04-01-2025 [facility] Start: 04-01-2025 Bacteria identified in Blood by Culture Blood Culture [facility] Start: 04-01-2025 Bacteria identified in Urine by Culture Urine Culture [facility] Start: 04-01-2025 End: 04-01-2025 [facility] Start: 03-28-2025 [facility] Start: 03-28-2025 Consultation [facility] Start: 03-28-2025 DTaP/Tdap/Td Vaccines (6 - Tdap) DTaP/Tdap/Td Vaccines (6 - Tdap) [facility] Start: 03-28-2025 Urine microalbumin profile DTaP,Tdap,Td Vaccine (6 - Tdap) [facility] Start: 03-19-2025 End: 03-19-2025 [facility] Start: 03-19-2025 Bacteria identified in Urine by Culture Urine Culture [facility] Start: 03-16-2025 End: 03-16-2025 Nursing evaluation of patient and report 03/16/2025 2:40 PM EDT Nurse Visit Urology [address] [place] [address] Wstr, Nurse [facility] [address] [place] [address] SPT Change. Last changed 02/02/2025. [facility] Urology Comment on above: SPT Change. Last changed 02/02/2025. [facility] Start: 01-05-2025 End: 01-05-2025 Nursing evaluation of patient and report 01/05/2025 2:40 PM EDT Nurse Visit Urology [address] [place] [address] Wstr, Nurse [facility] [address] [place] [address] 4w SPT change Urology Comment on above: 4w SPT change Start: 12-18-2024 End: 12-18-2024 Patient encounter procedure 12/18/2024 2:00 PM EDT Office Visit OB/Gynecology [address] [place] [address] Britni Velazquez APRN.RANGE MOUNTER [address] [place] [address] ANNUAL OB/Gynecology Comment on above: ANNUAL Start: 12-08-2024 End: 12-08-2024 Nursing evaluation of patient and report 12/08/2024 2:40 PM EDT Nurse Visit Urology [address] [place] [address] Wstr, Nurse [facility] [address] [place] [address] 4w SPT change Urology Comment on above: 4w SPT change Start: 11-03-2024 End: 11-03-2024 Nursing evaluation of patient and report 11/03/2024 2:40 PM EST Nurse Visit Urology [address] [place] [address] Wstr, Nurse [facility] [address] [place] [address] 4w SPT change Urology Comment on above: 4w SPT change Start: 10-20-2024 End: 10-20-2024 Nursing evaluation of patient and report 10/20/2024 2:40 PM EST Nurse Visit Urology [address] [place] [address] Wstr, Nurse [facility] [address] [place] [address] SPT change Urology Comment on above: SPT change Start: 09-23-2024 Depression Screening Depression Screening [facility] Start: 09-22-2024 End: 09-22-2024 Nursing evaluation of patient and report 09/22/2024 2:40 PM EST Nurse Visit Urology [address] [place] [address] Wstr, Nurse [facility] [address] [place] [address] SPT change Urology Comment on above: SPT change Start: 08-25-2024 End: 08-25-2024 Nursing evaluation of patient and report 08/25/2024 2:40 PM EST Nurse Visit Urology [address] [place] [address] Wstr, Nurse [facility] [address] [place] [address] SPT change Urology Comment on above: SPT change Start: 07-28-2024 End: 07-28-2024 Nursing evaluation of patient and report 07/28/2024 2:40 PM EST Nurse Visit Urology [address] [place] [address] Wstr, Nurse [facility] [address] [place] [address] SPT change Urology Comment on above: SPT change Start: 06-30-2024 End: 06-30-2024 Patient encounter procedure 06/30/2024 3:30 PM EDT Office Visit Urology [address] [place] [address] Rush Maxwell PA-C [address] [place] [address] Yearly and SPT change Urology Comment on above: Yearly and SPT change Start: 05-24-2024 Covid-19 Vaccine ( season) Covid-19 Vaccine ( season) [facility] Start: 05-24-2024 Covid-19 Vaccine ( season) Covid-19 Vaccine () [facility] Start: 05-24-2024 Influenza vaccination [facility] Start: 05-19-2024 End: 05-19-2024 Nursing evaluation of patient and report 05/19/2024 3:40 PM EDT Nurse Visit Urology [address] [place] [address] Wstr, Nurse [facility] [address] [place] [address] spt cath change Urology Comment on above: spt cath change Start: 04-10-2024 DIABETES SCREEN DIABETES SCREEN [facility] Start: 04-10-2024 Diabetes Screening Diabetes Screening [facility] Start: 04-07-2024 End: 04-07-2024 Nursing evaluation of patient and report 04/07/2024 3:40 PM EDT Nurse Visit Urology [address] [place] [address] Wstr, Nurse [facility] [address] [place] [address] spt cath change Urology Comment on above: spt cath change Start: 01-29-2024 End: 01-29-2024 Patient encounter procedure 01/29/2024 11:15 AM EDT Office Visit [facility] [address] [place] [address] Nely Cabezas MD [address] [place], [place] [phone] [facility] Comment on above: [facility]OX Start: 01-19-2024 End: 01-19-2024 [facility] Start: 01-19-2024 Bacteria identified in Urine by Culture [facility] Start: 12-03-2023 End: 03-03-2024 Bacteria identified in Urine by Culture [facility] Work Phone: Comment on above: Expected: 12/03/2023 (Approximate), Expi res: 03/03/2024 Ordered: 12/03/2023 Start: 09-04-2023 End: 09-04-2023 Patient encounter procedure 09/04/2023 11:00 AM EST Office Visit [facility] [address] [place] [address] Chelsi Hare MD [address] [place] [address] [facility] Start: 08-13-2023 End: 08-13-2023 Admission to same day surgery center 08/13/2023 11:15 AM EST - 08/13/2023 11:45 AM EST Surgery [facility] [address] [place] [address] Geoff Alcantar MD [address] [place], [place] [id number] EGD WITH BIOPSY [15158 (CPT )] [facility] [address] [facility] Comment on above: EGD WITH BIOPSY [65567 (CPT )] Start: 08-13-2023 End: 08-13-2023 Egd transoral biopsy single/multiple EGD WITH BIOPSY Gastro-esophageal reflux disease without esophagitis 08/13/2023 11:15 AM EST [facility] Start: 08-13-2023 Subsequent hospital visit by physician 08/13/2023 11:15 AM EST Hospital Encounter [facility] [address] [place] [address] Geoff Alcantar MD [address] [place], [place] [id number] [facility] [address] Start: 07-29-2023 End: 07-29-2023 Clinical Support 07/29/2023 1:00 PM EST Clinical Support [facility] [address] [place] [phone] Geoff Alcantar MD [address] [facility] [address] [place] [address] [facility] [address] [place] [address] [facility] Start: 07-23-2023 End: 07-23-2024 25-hydroxyvitamin D3 [Mass/volume] in Serum or Plasma Vitamin D Deficiency Screening (Vit D 25) Lab Routine Back pain, unspecified back location, unspecified back pain laterality, unspecified chronicity Gastroesophageal reflux disease without esophagitis Morbid obesity with BMI of 45.0-49.9, adult (HCC) Tobacco use Wheelchair dependent Pre-operative laboratory examination Expected: 07/23/2023, Expires: 07/23/2024 [facility] Comment on above: Expected: 07/23/2023, Expires: Start: 07-23-2023 End: 07-23-2024 CBC panel - Blood by Automated count CBC Lab Routine Back pain, unspecified back location, unspecified back pain laterality, unspecified chronicity Gastroesophageal reflux disease without esophagitis Morbid obesity with BMI of 45.0-49.9, adult (HCC) Tobacco use Wheelchair dependent Pre-operative laboratory examination Expected: 07/23/2023, Expires: 07/23/2024 [facility] Comment on above: Expected: 07/23/2023, Expires: Start: 07-23-2023 End: 07-23-2024 Cobalamin (Vitamin B12) [Mass/volume] in Serum or Plasma Vitamin B12 Lab Routine Back pain, unspecified back location, unspecified back pain laterality, unspecified chronicity Gastroesophageal reflux disease without esophagitis Morbid obesity with BMI of 45.0-49.9, adult (HCC) Tobacco use Wheelchair dependent Pre-operative laboratory examination Expected: 07/23/2023, Expires: 07/23/2024 [facility] Comment on above: Expected: 07/23/2023, Expires: Start: 07-23-2023 End: 07-23-2024 Comprehensive metabolic 1998 panel - Serum or Plasma Comprehensive metabolic panel Lab Routine Back pain, unspecified back location, unspecified back pain laterality, unspecified chronicity Gastroesophageal reflux disease without esophagitis Morbid obesity with BMI of 45.0-49.9, adult (HCC) Tobacco use Wheelchair dependent Pre-operative laboratory examination Expected: 07/23/2023, Expires: 07/23/2024 [facility] Comment on above: Expected: 07/23/2023, Expires: Start: 07-23-2023 End: 07-23-2024 Ferritin [Mass/volume] in Serum or Plasma Ferritin Lab Routine Back pain, unspecified back location, unspecified back pain laterality, unspecified chronicity Gastroesophageal reflux disease without esophagitis Morbid obesity with BMI of 45.0-49.9, adult (HCC) Tobacco use Wheelchair dependent Pre-operative laboratory examination Expected: 07/23/2023, Expires: 07/23/2024 [facility] Comment on above: Expected: 07/23/2023, Expires: Start: 07-23-2023 End: 07-23-2024 Folate [Mass/volume] in Serum or Plasma Folate Lab Routine Back pain, unspecified back location, unspecified back pain laterality, unspecified chronicity Gastroesophageal reflux disease without esophagitis Morbid obesity with BMI of 45.0-49.9, adult (HCC) Tobacco use Wheelchair dependent Pre-operative laboratory examination Expected: 07/23/2023, Expires: 07/23/2024 [facility] Comment on above: Expected: 07/23/2023, Expires: Start: 07-23-2023 End: 07-23-2024 Hemoglobin A1c measurement Hemoglobin A1c Lab Routine Back pain, unspecified back location, unspecified back pain laterality, unspecified chronicity Gastroesophageal reflux disease without esophagitis Morbid obesity with BMI of 45.0-49.9, adult (HCC) Tobacco use Wheelchair dependent Pre-operative laboratory examination Expected: 07/23/2023, Expires: 07/23/2024 [facility] [employer] [facility] Work Phone: Comment on above: Expected: 07/23/2023, Expires: Start: 07-23-2023 End: 07-23-2024 Iron and Iron binding capacity panel - Serum or Plasma Iron Lab Routine Back pain, unspecified back location, unspecified back pain laterality, unspecified chronicity Gastroesophageal reflux disease without esophagitis Morbid obesity with BMI of 45.0-49.9, adult (HCC) Tobacco use Wheelchair dependent Pre-operative laboratory examination Expected: 07/23/2023, Expires: 07/23/2024 [facility] Comment on above: Expected: 07/23/2023, Expires: Start: 07-23-2023 End: 07-23-2024 Lipid 1996 panel - Serum or Plasma Lipid panel Lab Routine Back pain, unspecified back location, unspecified back pain laterality, unspecified chronicity Gastroesophageal reflux disease without esophagitis Morbid obesity with BMI of 45.0-49.9, adult (HCC) Tobacco use Wheelchair dependent Pre-operative laboratory examination Expected: 07/23/2023, Expires: 07/23/2024 [facility] Comment on above: Expected: 07/23/2023, Expires: Start: 07-23-2023 End: 07-23-2024 Magnesium [Mass/volume] in Serum or Plasma Magnesium Lab Routine Back pain, unspecified back location, unspecified back pain laterality, unspecified chronicity Gastroesophageal reflux disease without esophagitis Morbid obesity with BMI of 45.0-49.9, adult (HCC) Tobacco use Wheelchair dependent Pre-operative laboratory examination Expected: 07/23/2023, Expires: 07/23/2024 [facility] Comment on above: Expected: 07/23/2023, Expires: Start: 07-23-2023 End: 07-23-2024 Thyrotropin [Units/volume] in Serum or Plasma TSH Lab Routine Back pain, unspecified back location, unspecified back pain laterality, unspecified chronicity Gastroesophageal reflux disease without esophagitis Morbid obesity with BMI of 45.0-49.9, adult (HCC) Tobacco use Wheelchair dependent Pre-operative laboratory examination Expected: 07/23/2023, Expires: 07/23/2024 [facility] Comment on above: Expected: 07/23/2023, Expires: Start: 07-23-2023 End: 07-23-2024 Vitamin B1, whole blood Vitamin B1, whole blood Lab Routine Back pain, unspecified back location, unspecified back pain laterality, unspecified chronicity Gastroesophageal reflux disease without esophagitis Morbid obesity with BMI of 45.0-49.9, adult (HCC) Tobacco use Wheelchair dependent Pre-operative laboratory examination Expected: 07/23/2023, Expires: 07/23/2024 [facility] Comment on above: Expected: 07/23/2023, Expires: Start: 07-23-2023 End: 07-23-2024 XR Abdomen and RF Gastrointestinal tract upper W contrast PO FL upper GI w KUB Imaging Routine Gastroesophageal reflux disease without esophagitis Expected: 07/23/2023, Expires: 07/23/2024 [facility] Comment on above: Expected: 07/23/2023, Expires: Start: 07-23-2023 End: 07-23-2024 Zinc Zinc Lab Routine Back pain, unspecified back location, unspecified back pain laterality, unspecified chronicity Gastroesophageal reflux disease without esophagitis Morbid obesity with BMI of 45.0-49.9, adult (HCC) Tobacco use Wheelchair dependent Pre-operative laboratory examination Expected: 07/23/2023, Expires: 07/23/2024 [facility] Comment on above: Expected: 07/23/2023, Expires: Start: 05-24-2023 Covid-19 Vaccine ( season) Covid-19 Vaccine ( season) [facility] Start: 05-24-2023 Influenza vaccination [facility] Start: 05-17-2023 Simple rpr scalp/neck/ax/genit/trun k 7.6-12.5cm RPR S/N/AX/GEN/TRK7.6-12.5C M [facility] Start: 02-06-2023 Application long leg splint thigh ankle/toes APPLICATION LONG LEG SPLINT [facility] Start: 05-24-2022 Influenza vaccination [facility] Start: 02-07-2021 COLOGUARD (FIT-DNA) COLOGUARD (FIT-DNA) [facility] Start: 02-07-2021 Colonoscopy COLONOSCOPY [facility] Start: 02-07-2021 COLORECTAL CANCER SCREENING COLORECTAL CANCER SCREENING [facility] Start: 02-07-[address] COLONOGRAPHY [facility] Start: 02-07-2021 FECAL OCCULT BLOOD FECAL OCCULT BLOOD [facility] Start: 02-07-2021 LIPID SCREEN LIPID SCREEN [facility] Start: 02-07-2021 Screening for malignant neoplasm of colon [facility] Start: 02-07-2021 SIGMOIDOSCOPY SIGMOIDOSCOPY [facility] Start: 11-21-2016 End: 11-21-2016 Transition of Care Transition of Care Florecita Johnson MD, [address], [address], [place], [address] [employer] [facility] Work Phone: Start: 11-19-2016 End: 11-19-2016 X-ray exam, knee, 4 or more X-Ray, Knee [employer], [facility] Work Phone: Start: 10-10-2016 End: 03-15-2017 Physical Therapy General [facility], [address] [place] [address], [place], [address] [employer] [facility] Work Phone: Start: 10-03-2016 End: 10-03-2016 Physical Therapy General [facility], [address] [place] [address], [place], [address] [employer] [facility] Work Phone: Start: 09-12-2016 End: 09-12-2016 X-ray exam, knee, 4 or more X-Ray, Knee [employer], [facility] Work Phone: Start: 07-20-2016 End: 08-24-2016 X-ray exam, knee, 4 or more X-Ray, Knee [employer] [facility] Work Phone: Start: 2016 Mammography [facility] Start: 2016 Screening for malignant neoplasm of breast [facility] Start: 06-08-2015 End: 06-13-2015 Pain Management Pain Management Traci Solano, [address] [place] [address], [address], [place], [address] [employer] [facility] Work Phone: Start: 04-13-2015 End: 04-13-2015 Physical Therapy [facility], [address] [place] [address], [address] [employer] [facility] Work Phone: Start: 02-02-2015 End: 08-24-2016 Mri joint upr extrem w/o dye MRI Joint Upper Extremity [employer] [facility] Work Phone: Start: 01-24-2015 End: 08-24-2016 X-ray exam of shoulder X-Ray, Shoulder [facility] Work Phone: Start: 07-26-2014 End: 08-24-2016 X-ray exam, knee, 4 or more X-Ray, Knee [facility] Work Phone: Start: 02-07-2006 HPV TESTING HPV TESTING [facility] Start: 02-07-2006 Screening for malignant neoplasm of cervix [facility] Start: 01-16-2004 Urine microalbumin profile [facility] Start: 02-07-1997 PAP TESTING PAP TESTING [facility] Start: 02-07-1997 Screening for malignant neoplasm of cervix [facility] Start: 02-07-1995 Hepatitis A Vaccines (1 of 2 - Risk 2-dose series) Hepatitis A Vaccines (1 of 2 - Risk 2-dose series) [facility] Start: 02-07-1995 Hepatitis B Vaccine (1 of 3 - 19+ 3-dose series) Hepatitis B Vaccine (1 of 3 - 19+ 3-dose series) [facility] Start: 02-07-1995 Hepatitis B Vaccines (1 of 3 - 19+ 3-dose series) Hepatitis B Vaccines (1 of 3 - 19+ 3-dose series) [facility] Start: 02-07-1994 Anxiety Screening Anxiety Screening [facility] Start: 02-07-1994 Diabetes mellitus screening Diabetes Screening [facility] Start: 02-07-1994 HEPATITIS C SCREENING HEPATITIS C SCREENING [facility] Start: 02-07-1994 HIV SCREENING HIV SCREENING [facility] Start: 1988 Depresssion Monitoring Depresssion Monitoring [facility] Start: 02-22-1982 IPV Vaccines (3 of 3 - 4-dose series) IPV Vaccines (3 of 3 - 4-dose series) [facility] Start: 02-07-1982 PNEUMOCOCCAL (1 - PCV) PNEUMOCOCCAL (1 - PCV) [facility] Start: 02-07-1982 Pneumococcal vaccination Pneumococcal Vaccine (1 - PCV) [facility] Start: 02-07-1982 Pneumococcal Vaccine: Pediatrics (0 to 5 Years) and At-Risk Patients (6 to 64 Years) (1 - PCV) Pneumococcal Vaccine: Pediatrics (0 to 5 Years) and At-Risk Patients (6 to 64 Years) (1 - PCV) [facility] Start: 02-07-1982 Pneumococcal Vaccine: Pediatrics (0 to 5 Years) and At-Risk Patients (6 to 64 Years) (1 of 2 - PCV) Pneumococcal Vaccine: Pediatrics (0 to 5 Years) and At-Risk Patients (6 to 64 Years) (1 of 2 - PCV) [facility] Start: 02-07-1981 COVID-19 VACCINE (#1) COVID-19 VACCINE (#1) [facility] Start: 02-07-1977 Hepatitis A Vaccines (1 of 2 - Risk 2-dose series) Hepatitis A Vaccines (1 of 2 - Risk 2-dose series) [facility] Start: 1976 COVID-19 VACCINE (#1) COVID-19 VACCINE (#1) [facility] Start: 1976 HEPATITIS B (1 of 3 - 3-dose series) HEPATITIS B (1 of 3 - 3-dose series) [facility] Start: 1976 Hepatitis B Vaccine (1 of 3 - 3-dose series) Hepatitis B Vaccine (1 of 3 - 3-dose series) [facility] Start: 1976 Hepatitis B Vaccines (1 of 3 - 3-dose series) Hepatitis B Vaccines (1 of 3 - 3-dose series) [facility] Start: 1976 HIV screening HIV Screening [facility] Start: 1976 Screening for malignant neoplasm of breast Breast Cancer Screening [facility] Start: 1976 Screening for malignant neoplasm of colon [facility] End: 04-08-2025 Bacteria identified in Urine by Culture [facility] Work Phone: Comment on above: Once for 1 Occurrences starting 04/08/20 until 04/08/2025 End: 07-26-2024 SCHMITT CHANGE SCHMITT CHANGE Procedures Routine Atonic neurogenic bladder 99 Occurrences starting 07/29/2023 until 07/26/2024 [facility] Work Phone: Comment on above: 99 Occurrences starting 07/29/2023 until 07/26/2024 Patient Education [facility] Work Phone: Patient referral [facility] Work Phone: End: 06-30-2025 SUPRAPUBIC TUBE CHANGE SUPRAPUBIC TUBE CHANGE Procedures Routine Neurogenic bladder 99 Occurrences starting 06/30/2024 until 06/30/2025 [facility] Work Phone: Comment on above: 99 Occurrences starting 06/30/2024 until 06/30/2025 Urine culture [facility] Urine culture [facility] Urine culture [facility] Immunizations Immunization Date Immunization Notes Care Provider [facility] 07-09-2023 influenza virus vaccine, unspecified formulation Nurse Wstr Work Phone: [facility] 05-17-2023 tetanus toxoid, reduced diphtheria toxoid, and acellular pertussis vaccine, adsorbed [facility] 08-29-2016 influenza, injectable, quadrivalent, preservative free [facility] 08-29-2016 influenza, seasonal, injectable [facility] 08-29-2016 influenza virus vaccine, unspecified formulation Chetan Rodríguez APRN - [employer] Work Phone: [facility] 03-28-2015 tetanus and diphtheria toxoids, adsorbed, preservative free, for adult use (2 Lf of tetanus toxoid and 2 Lf of diphtheria toxoid) [facility] 01-15-1994 diphtheria and tetanus toxoids, adsorbed for pediatric use Deyanira Petersen APRN.[employer] Work Phone: [facility] Work Phone: 02-14-1990 diphtheria and tetanus toxoids, adsorbed for pediatric use Deyanira Petersen CLASSIFICATION CASE MANAGER.[employer] Work Phone: [facility] Work Phone: 08-24-1981 DTP-Haemophilus influenzae type b conjugate vaccine Deyanira [place] CLASSIFICATION CASE MANAGER.[employer] Work Phone: [facility] Work Phone: 08-24-1981 trivalent poliovirus vaccine, live, oral Deyanira [place] CLASSIFICATION CASE MANAGER.[employer] Work Phone: [facility] Work Phone: 08-24-1981 poliovirus vaccine, unspecified formulation Minh TENORIO Work Phone: [facility] 07-08-1981 tuberculin skin test ; purified protein derivative solution, intradermal Nurse Wstr Work Phone: [facility] 06-29-1981 measles, mumps and rubella virus vaccine Deyanira [place] CLASSIFICATION CASE MANAGER.[employer] Work Phone: [facility] Work Phone: 06-29-1981 trivalent poliovirus vaccine, live, oral Deyanira [place] CLASSIFICATION CASE MANAGER.[employer] Work Phone: [facility] Work Phone: 10-13-1978 DTP-Haemophilus influenzae type b conjugate vaccine Deyanira [place] CLASSIFICATION CASE MANAGER.[employer] Work Phone: [facility] Work Phone: NEGATED: Highlighted row has not occurred!07-30-2022 Influenza, injectable, Madin [facility] Canine Kidney, quadrivalent with preservative Chetan Rodríguez CLASSIFICATION CASE MANAGER - [employer] Work Phone: [facility] Comment on above: Deferred: Other - d/ c'd Payers Date Payer Category Payer Self-pay [id number] 2022 Medicaid [place] MED[place] [id number] 2022-Present [phone] [address] [place] [address] Medicaid [id number] 2021 Medicaid [id number] 2021 Medicaid [id number] 2014 Unknown [id number] 1976 Unknown [id number] 1976 Unknown [id number] 1976 Unknown [id number] Unknown [id number] Unknown [id number] Unknown [id number] Unknown [id number] Unknown [id number] Unknown [id number] Unknown [id number] Unknown [id number] Unknown [id number] Social History Date Type Detail Facility Start: 06-18-2023 End: 06-30-2024 Tobacco smoking status OKIS Smokes tobacco daily [facility] Work Phone: History of tobacco use Cigarette Smoker [facility] Start: 02-22-2022 End: 06-30-2024 Alcohol intake Ex-drinker (finding) [facility] Start: 1975 Sex Assigned At Not on file [facility] Start: 02-06-2022 End: 08-09-2022 Exposure to SARS-CoV-2 (event) Not sure [facility] Start: 01-18-2021 End: 01-19-2024 Tobacco smoking status NHIS Unknown if ever smoked [facility] Start: 04-11-2020 None [facility] Start: 04-11-2020 Heroin [facility] Start: 09-09-2019 Spouse/ Signif icant Other;Homeless;- [facility] Start: 01-18-2021 Cigarettes [facility] Start: 1975 Sex Assigned At Female [facility] Start: 02-22-2022 End: 06-30-2024 History of Social function [facility] Start: 02-22-2022 End: 06-30-2024 Tobacco use panel [facility] Start: 08-24-2012 National Score (1-100), lower number is lower risk 90 [facility] Start: 06-18-2023 End: 06-30-2024 Tobacco use and exposure Smokeless tobacco non-user [facility] Start: 06-25-2019 Sex Female (finding) [facility] NEGATED: Highlighted row [facility] Mental Status Date Assessment Result Facility 04-01-2025 Cognitive function Level Of Cons ciousness Awake;Alert;Appropriate;Follow s Commands [facility] Work Phone: Clinical Notes 02-12-2021 to 05-04-2025 Bambi Thomas LPN - 05/04/2025 4:18 PM EDT Note Date & Type Note Facility 05-04-2025 Note HNO ID: [id number] Author: BAMBI THOMAS LPN Service: ? Author Type: LICENSED NURSE Type: Progress Notes Filed: 05/04/2025 16:32 Note Text: Verified name and date of . CC Supra pubic catheter in Place HPI: Katarzyna Vargas is a 50 year old female. The patient is here now for a supra pubic catheter change with diagnosis of atonic neurogenic bladder. Procedure: Performed a catheter change. Removed fluid from balloon in the schmitt. The indwelling supra pubic schmitt size [address] latex catheter was removed with catheter tip intact without difficulty. Patient reports having had catheter changed while in rehab in [place]. Inserted [address] catheter using aseptic technique. Irrigated with 60 mL 0.9% sodium chloride without difficulties. Very large amount of yellow urine with sediment throughout return noted. Bulb inflated with 20 mLs prefilled syringe- sterile water. Covered with t-sponge. Patient does not want secured with statlock. The patient tolerated the procedure well. Assessment/Plan: Successful catheter change. Return for catheter changes as planned. Bambi Thomas LPN [facility] 05-04-2025 History of Present illness Narrative Verified name and date of . CC Supra pubic catheter in Place HPI: Katarzyna Vargas is a 50 year old female. The patient is here now for a supra pubic catheter change with diagnosis of atonic neurogenic bladder. Procedure: Performed a catheter change. Removed fluid from balloon in the schmitt. The indwelling supra pubic schmitt size [address] latex catheter was removed with catheter tip intact without difficulty. Patient reports having had catheter changed while in rehab in [place]. Inserted [address] catheter using aseptic technique. Irrigated with 60 mL 0.9% sodium chloride without difficulties. Very large amount of yellow urine with sediment throughout return noted. Bulb inflated with 20 mLs prefilled syringe- sterile water. Covered with t-sponge. Patient does not want secured with statlock. The patient tolerated the procedure well. Assessment/Plan: Successful catheter change. Return for catheter changes as planned. Bambi Thomas LPN documented in this encounter [facility] 04-12-2025 Discharge summary [facility] 04-12-2025 Discharge summary Note Date/Time April 12, 2025 7:19pm [facility] Medical Records Department [address] [place] [address] Emergency Department Summary 04/12/25 MR#: [id number] Acct: [id number] Name: KATARZYNA VARGAS Rep #:[id number] : [...] Discussion w/independent historian: Patient (With a an cloth stock sorter that was withhim.) Additional record(s) reviewed:: No prior records Procedures Lacerations Left thumb laceration repair:: Length: 2 in Depth: Sub Q Shape: Linear Laceration repair: Irrigated, Lidocaine, Local and Skin sutures Number of Sutures/Mirtha: 3 Suture Information: Ethilon, Simple and 4-0 [...] a day to prevent infection. Print Language: Pashto Disposition Disposition: Home, Self Care What to do if you have Problems For any increased pain, shortness of breath, bleeding, nausea or vomiting, chestpain, or any unexpected problems, contact your Primary Care Provider. Call [facility] ([phone]) or report to the closest Emergency Room. Call 911 if necessary. 04/12/25 1720 <Electronically signed by Renato Henson MD> Cosigner Signature (if applicable): CC: Dr. Darrel Veloz DO ~ Signed ADDENDUM by Dr. Renato Henson [...] Cosigner Signature (if applicable): cc: Dr. Darrel Veloz, ~* Signed [facility] Work Phone: 1(770) 800-349007-17-2025 Hospital Discharge instructions* Discharge Instructions* Kaley Taveras [...] through Care Everywhere. * Suprapubic Catheter Care (Citizen Of [place]) documented in this encounterEagleville [id number] History of Present illness Narrative* Enrique Thompson RN - 04/08/2025 6:41 PM EDT Pt arrives via EMS: from treatment facility. Pt states her suprapubic cath has not been flushed or changed in 3 months. AOx4, resp even and unlabored. documented [place]Ann [place] [address]-17-2025 Emergency department Note* ED Bed Hold Note - Koki Mcleod RN - 04/08/2025 6:39 PM EDT Bed: Z3-31 Expected date: Expected time: Means of arrival: Comments: 111 50F suprapubic cath needs changed, hasn't been changed in 2 months, eTA 1 [facility] [id number] Miscellaneous Notes* ED Bed Hold Note - Koki Mcleod RN - 04/08/2025 6:39 PM EDT Bed: Z3-31 Expected date: Expected time: Means of arrival: Comments: 111 50F suprapubic cath needs changed, hasn't been changed in 2 months, eTA 1 documented in this encounterEagleville [id number] Discharge summary Author Samuel Hodges [facility] Note Date/Time April 01, 2025 3:43 pm [facility] Medical Records Department [address] [place] [address] Emergency Department Summary 04/01/25 MR#: [id number] Acct: [id number] Name: KATARZYNA VARGAS Rep #:[id number] : [...] 78.9 H Lymph % (Auto) 12.1 L Sanborn % (Auto) 5.5 Eos % (Auto) 2.2 [...] Sl. Cloudy Urine pH 6.0 Ur Specific [place] 1.010 Urine Protein Negative Urine Glucose (UA) [...] No acute abnormality is seen. Reading Location: [facility] Discharge Plan Triage Chief Complaint: Edema ED [...] show any acute findings today. Print Language: Citizen Of [place] Disposition Disposition: Home, Self Care What to do if you have Problems For any increased pain, shortness of breath, bleeding, nausea or vomiting, chestpain, or any unexpected problems, contact your Primary Care Provider. Call [facility] [facility] ([phone]) or report to the closest Emergency Room. Call 911 if necessary. 04/01/25 3381 <Electronically signed by Samuel Hodges DO> Cosigner Signature (if applicable): CC: Dr. Darrel Veloz DO ~ Signed [facility] Work Phone: [phone]) 219-279007-10-2025 Discharge summary [facility] Medical Records Department [address] [place] [address] Emergency Department Summary 04/01/25 MR#: [id number] Acct: [id number] Name: KATARZYNA VARGAS Rep #:[id number] : [...] 78.9 H Lymph % (Auto) 12.1 L Sanborn % (Auto) 5.5 Eos % (Auto) 2.2 [...] Sl. Cloudy Urine pH 6.0 Ur Specific [place] 1.010 Urine Protein Negative Urine Glucose (UA) [...] No acute abnormality is seen. Reading Location: [facility] Discharge Plan Triage Chief Complaint: Edema ED [...] show any acute findings today. Print Language: Citizen Of [place] Disposition Disposition: Home, Self Care What to do if you have Problems For any increased pain, shortness of breath, bleeding, nausea or vomiting, chestpain, or any unexpected problems, contact your Primary Care Provider. Call [facility] ([phone]) or report tothe closest Emergency Room. Call 911 if necessary. 04/01/25 1542 Cosigner Signature (if applicable): CC: Dr. Darrel Veloz DO ~ Signed [facility]07-10-2025 Radiology Diagnostic study note [facility] Imaging Services [address] [place] [id number] Soft Tissue Neck WITH Contrast MR#: [id number] Acct: [id number] Name: KATARZYNA VARGAS Rep #: [id number] : 1975 F 50 From: Catracho Laird MD PCP: Dr. Darrel Veloz DO Status: REG ER Study:Soft Tissue Neck WITH Contrast Date of Exam: 04/01/25 Exam# [id number] Ordering Dr: Karen Hodges DO PROCEDURE: SOFT [...] No acute abnormality is seen. Reading Location: [facility] CC: Dr. Darrel Veloz, DO; Dr. Samuel Hodges, DO ~ Hand Slitter: Signed [facility]07-10-2025 Telephone encounter Note* Telephone Encounter - Bambi Thomas LPN - 04/01/2025 8:14 AM EDT Called [facility] and spoke with staff. [facility] patient has relapsed multiple times and is dueto go to rehab facility today. A nurse from [facility] will be at clinic to steel pickler catheter some time today. Order printed for catheter change for steel pickler in event order is needed. Bambi Thomas LPN [facility]07-10-2025 Miscellaneous Notes* Telephone Encounter - Bambi Thomas LPN - 04/01/2025 8:14 AM EDT [facility] patient has relapsed multiple times and is dueto go to rehab facility today. A nurse from [facility] will be at clinic to steel pickler catheter some time today. Order printed for catheter change for steel pickler in event order is needed. Bambi Thomas LPN * Telephone Encounter - Sarah Hager MA - 03/31/2025 3:25 PM EDT Nurse from [facility] phones to request the ability to steel pickler a suprapubic catheter for placement prior to patient being transferred to a rehabilitation facility for inpatient treatment tomorrow. Nurse reports asking due to fear that the rehab facility will deny the patient due to the catheter needing to be changed. Return nurse phone call to [phone] Sarah Hager MA documented in this encounterL[facility]07-[facility] Telephone encounter Note * Telephone Encounter - Sarah Hager MA - 03/31/2025 3:25 PM EDT Nurse from [facility] phones to request the ability to steel pickler a suprapubic catheter for placement prior to patient being transferred to a rehabilitation facility for inpatient treatment tomorrow. Nurse reports asking due to fear that the rehab facility will deny the patient due to the catheter needing to be changed. Return nurse phone call to [phone] Sarah Hager MA [facility]06-27-2025 Discharge summary Author Nick Angelo [facility] Note Date/Time March 19, 2025 4:45 pm [facility] Medical Records Department [address] [place] [address] Emergency Department Summary 03/19/25 MR#: [id number] Acct: [id number] Name: KATARZYNA VARGAS Rep #:[id number] : 1975 50 From: Nick Qureshi PCP: Dr. Darrel Veloz, DO Status:[facility] ER Location: ED HPI History of Present [...] dehydrated or her electrolytes may be abnormal. [facility] Medical History Functional dyspepsia Acute embolism [...] intact bilaterally and no sensory deficits noted Marion Coma Scale: document GCS findings Spontaneous Obeys [...] % (Auto) 56.7 Lymph % (Auto) 29.3 Sanborn % (Auto) 8.3 Eos % (Auto) 4.0 [...] Clarity Cloudy Urine pH 8.0 Ur Specific [place] 1.015 Urine Protein 30 H Urine Glucose [...] Eighty,One [Non-Staff] - 3-5 Days Print Language: Citizen Of [place] Disposition Disposition: Home, Self Care What to do if you have Problems For any increased pain, shortness of breath, bleeding, nausea or vomiting, chestpain, or any unexpected problems, contact your Primary Care Provider. Call [facility] ([phone]) or report to the closest Emergency Room. Call 911 if necessary. 03/19/25 1645 <Electronically signed by Nick Angelo DO> Cosigner Signature (if applicable): CC: Dr. Darrel Veloz DO ~ Signed [facility] Work Phone: 1(720) 926-467206-27-2025 Discharge summary [facility] Medical Records Department [address] [place] [address] Emergency Department Summary 03/19/25 MR#: [id number] Acct: [id number] Name: KATARZYNA VARGAS Rep #:[id number] : [...] dehydrated or her electrolytes may be abnormal. [facility] Medical History Functional dyspepsia Acute embolism [...] intact bilaterally and no sensory deficits noted Justin Coma Scale: document GCS findings Spontaneous Obeys [...] % (Auto) 56.7 Lymph % (Auto) 29.3 Sanborn % (Auto) 8.3 Eos % (Auto) 4.0 [...] Clarity Cloudy Urine pH 8.0 Ur Specific [place] 1.015 Urine Protein 30 H Urine Glucose [...] Eighty,One [Non-Staff] - 3-5 Days Print Language: Citizen Of [place] Disposition Disposition: Home, Self Care What to do if you have Problems For any increased pain, shortness of breath, bleeding, nausea or vomiting, chestpain, or any unexpected problems, contact your Primary Care Provider. Call [facility] ([phone]) or report tothe closest Emergency Room. Call 911 if necessary. 03/19/25 1645 Cosigner Signature (if applicable): CC: Dr. Darrel Veloz, DO ~ Signed [facility]06-19-2025 Telephone encounter Note* Telephone Encounter - Bambi Thomas LPN - 03/11/2025 2:50 PM EDT Received fax from [employer] that patient was concerned about urinary output.Spoke with SILVA Butler who states after she sent fax she was talking with patient and patient was uncertain if she woke up at night and emptied the drainage bag but has had 600 mL and 700 mL today and continues to drink fluids well without any signs/symptoms UTI. Bambi Thomas LPN [facility]06-19-2025 Miscellaneous Notes* Telephone Encounter - Bambi Thomas LPN - 03/11/2025 2:50 PM EDT Received fax from [employer] that patient was concerned about urinary output.Spoke with SILVA Butler who states after she sent fax she was talking with patient and patient was uncertain if she woke up at night and emptied the drainage bag but has had 600 mL and 700 mL today and continues to drink fluids well without any signs/symptoms UTI. Bambi Thomas LPN documented in this encounterLakehealth [facility]05-13-2025 NoteHNO ID: [id number] Author: YESSY MARES MA Service: ? Author Type: Family Advocate Type: Progress Notes Filed: 02/02/2025 14:56 Note [...] Follow up as discussed with ORALIA Ray [facility]05-13-2025 History of Present illness Narrative* Yessy [...] with ORALIA Ray MA documented in this encounterLakehealth [facility]04-16-2025 Telephone encounter Note * Telephone Encounter - Bambi Thomas LPN - 01/06/2025 1:24 PM EDT Received fax from [employer] [facility] Faxed signed by Rush Maxwell PA-C order for drain bag with double pattern changer. Bambi Thomas LPN [facility]04-16-2025 Miscellaneous Notes* Telephone Encounter - Bambi Thomas LPN - 01/06/2025 1:24 PM EDT [facility] from [facility] Faxed signed by Rush Maxwell PA-C order for drain bag with double pattern changer. Bambi Thomas LPN documented in this encounterLakehealth [facility]04-15-2025 NoteHNO ID: [id number] Author: YESSY MARES MA Service: ? Author Type: Family Advocate Type: Progress Notes Filed: 01/05/2025 14:55 Note Text: Suprapubic catheter change performed as ordered. A [address] schmitt catheter with 30ml balloon was replaced using sterile technique without complications. Balloon inflated with 20cc of sterile saline. Patient tolerated procedure well. Irrigation preformed to insure proper placement with good return and without complication. Patient to follow up in 1 month. Patient to call in the interim with any problems or concerns. Yessy Mares [facility]04-15-2025 History of Present illness Narrative* Yessy Mares MA - 01/05/2025 2:51 PM EDT Suprapubic catheter change performed as ordered. A [address] schmitt catheter with 30ml balloon was replaced using sterile technique without complications. Balloon inflated with 20cc of sterile saline. Patient tolerated procedure well. Irrigation preformed to insure proper placement with good return and without complication. Patient to follow up in 1 month. Patient to call in the interim with any problems or concerns. Yessy Mares Ma documented in this encounterLakehealth [facility]03-18-2025 NoteHNO ID: [id number] Author: BAMBI THOMAS LPN Service: ? Author [...] change. Return for catheter changes as planned. [facility] [id number] History of Present illness Narrative* Bambi Thomas [...] planned. Bambi Thomas LPN documented in this encounterLakehealth [facility]02-11-2025 NoteHNO ID: [id number] Author: BAMBI THOMAS LPN Service: ? Author [...] Return for catheter changes as planned. [facility] History of Present illness Narrative* Bambi [...] planned. Bambi Thomas LPN documented in this encounterLakehealth [facility] Center01-14-2025 NoteHNO ID: [id number] Author: YESSY MARES MA Service: ? Author Type: Family Advocate Type: Progress Notes Filed: 10/06/2024 15:19 Note [...] complications. Follow up as discussed ORALIA Ray [facility]01-14-2025 History of Present illness Narrative* Yessy [...] discussed ORALIA Ray MA documented in this encounterLakehealth [facility] Center12-06-2024 Telephone encounter Note * Telephone Encounter - Bambi Thomas LPN - 08/28/2024 11:27 AM EST Called patient. Verified name and date of . Patient notified- verbalizes understanding. Bambi Thomas LPN [facility]12-06-2024 Miscellaneous Notes* Telephone Encounter - [...] [facility], [place] * Telephone Encounter - Bambi Thomas [...] advise. Bambi Thomas LPN documented in this encounterLakehealth [facility] Center12-04-2024 Telephone encounter Note * Telephone Encounter - Bambi Thomas LPN - 08/26/2024 10:11 AM EST Called patient. No answer- left message that medication increased. Bambi Thomas LPN [facility]12-03-2024 Telephone encounter Note* Telephone Encounter - Rush Maxwell PA-C - 08/25/2024 6:02 PM EST Increase to 15 [facility] daily [facility] SABINE Ray MT, PA-C [facility]12-03-2024 NoteHNO ID: [id number] Author: BAMBI THOMAS LPN Service: ? Author [...] change. Removed fluid from balloon in the scmhitt. The indwelling supra pubic schmitt size 24 [...] Return for catheter changes as planned. [facility]12[facility] History of Present illness Narrative* Bambi [...] planned. Bambi Thomas LPN documented in this encounterLakehealth [facility]12-03-2024 Telephone encounter Note * Telephone [...] Please review and advise. Bambi Thomas LPN [facility]11-05-2024 NoteHNO ID: [id number] Author: BAMBI THOMAS LPN Service: ? Author [...] Return for catheter changes as planned. [facility]11[facility] History of Present illness Narrative* Bambi [...] planned. Bambi Thomas LPN documented in this encounterLakehealth [facility] Center10-10-2024 Telephone encounter Note * Telephone Encounter - Yessy Mares MA - 07/02/2024 8:19 AM EDT Detailed message left to inform of negative results. Yessy Mares MA [facility]10-10-2024 Miscellaneous Notes* Telephone Encounter - Yessy Mares MA - 07/02/2024 8:19 AM EDT Detailed message left to inform of negative results. Yessy Mares MA * Telephone Encounter - Yessy Mares MA - 07/02/2024 8:16 AM EDT ----- Message from Rush Maxwell PA-C sent at 07/01/2024 5:40 PM EDT ----- No infection in the urine SABINE Ray MT, PA-C documented in this encounterLakehealth [facility]wood [facility] Center10-10-2024 Telephone encounter Note * Telephone Encounter - Yessy Mares MA - 07/02/2024 8:16 AM EDT ----- Message from Rush Maxwell PA-C sent at 07/01/2024 5:40 PM EDT ----- No infection in the urine SABINE Ray MT, PA-C [facility]10-08-2024 NoteHNO ID: [id number] Author: RUSH MAXWELL PA-C Service: ? Author Type: Physician Machine Set Up Operator [employer] Type: Progress Notes Filed: 07/30/2024 22:35 Note [...] ORALIA EPSTEIN for annual follow-up and refills. [facility]10-08-2024 History of Present illness Narrative* Rush Maxwell [...] annual follow-up and refills. documented in this encounterLakehealth [facility] Center09-03-2024 NoteHNO ID: [id number] Author: BAMBI THOMAS LPN Service: ? Author [...] scheduled with provider for next visit. [facility]09-[facility]-20[facility] History of Present illness Narrative* Bambi [...] visit. Bambi Thomas LPN documented in this encounterLakehealth [facility]07-16-2024 History of Present illness Narrative* Bambi Thomas [...] planned. Bambi Thomas LPN documented in this encounterLakehealth [facility] Center06-11-2024 History of Present illness Narrative* [...] two way because ever since she had somali increased to 24 she no longer irrigates. [...] planned. Bambi Thomas LPN documented in this encounterLakehealth [facility]wood [facility] Center04-28-2024 Discharge summary Author Bradly Kruger [facility] January 19, 2024 11:33pm Note Date/Time January 19, 2024 9:1 7pm [facility] Medical Records Department [address] [place] [address] Emergency Department Summary 01/19/24 MR#: [id number] Acct: [id number] Name: KATARZYNA VARGAS Rep #:[id number] : 1975 48 From: Bradly Kruger MD PCP: Dr. Darrel Veloz, DO Status:REG [...] get patient in bed and undressed and senior web developer external genital exam. Also nurse was asked to get a 24 Uzbek three-way for me to replace her suprapubic [...] % (Auto) 58.3 Lymph % (Auto) 30.9 Sanborn % (Auto) 7.4 Eos % (Auto) 2.2 [...] Clarity Cloudy Urine pH 7.0 Ur Specific [place] 1.010 Urine Protein 100 H Urine Glucose [...] Exchanged suprapubic catheter. Patient had a 24 Uzbek three-way was replaced with a 24 Uzbek three-way. This was done with the assistance of the nurse without complication. Discharge Plan Triage Chief Complaint: Schmitt C/O ED Provider: Bradly Kruger Dx/Rx/DC Orders Clinical Impression: Encounter for suprapubic [...] your Primary Care Provider. Call [facility] ([phone]) or report to the closest Emergency Room. Call 911 if necessary. 01/19/24 2333 <Electronically signed by Bradly Kruger MD> Cosigner Signature (if applicable): CC: Dr. Darrel Veloz, DO ~ Signed [facility] Work Phone: [phone]) 718-552104-24-2024 Telephone encounter Note* Telephone Encounter - Bambi Thomas LPN - 01/15/2024 4:32 PM EDT Called patient- number has been disconnection or out of service. Patient was scheduled for appointment for SPT change yesterday. Bambi Thomas LPN [facility]04-24-2024 Miscellaneous Notes* Telephone Encounter - Bambi Thomas LPN - 01/15/2024 4:32 PM EDT Called patient- number has been disconnection or out of service. Patient was scheduled for appointment for SPT change yesterday. Bambi Thomas LPN documented in this encounterLakehealth [facility] Center03-25-2024 Miscellaneous Notes* Telephone Encounter - [...] no new ones in home. Can she steel pickler [facility],She reports she has done this before. Patient asks that a prescription be sent to [facility] Sarah Hager MA documented in this encounterLakehealth [facility] Center03-18-2024 Miscellaneous Notes* Telephone Encounter - [...] SABINE Ray, ORALIA EPSTEIN documented in this encounterLakehealth [facility] Center03-16-2024 Discharge summary Author Sarah Saucedo [facility] December 07, 2023 8:31am Note Date/Time December 07, 2023 4:5 6am [facility] Medical Records Department [address] [place] [address] Emergency Department Summary 12/07/23 MR#: [id number] Acct: [id number] Name: KATARZYNA VARGAS Rep #:[id number] : 1975 48 From: Sarah Saucedo MD PCP: Dr. Darrel Veloz, DO Status:REG ER Location: ED HPI History of Present Illness Chief Complaint: Lower Extremity Injury Informant: patient Onset/Context/Timing Onset: Yesterday Narrative Narrative: Patient presents via EMS from [facility]. She states she is currently inassisted living [...] be forced to go back to her halfway. She called EMS early this morning secondary [...] your Primary Care Provider. Call [facility] ([phone]) or report to the closest Emergency Room. Call 911 if necessary. 12/07/23 0831 <Electronically signed by Sarah Saucedo MD> Cosigner Signature (if applicable): CC: Dr. Darrel Veloz DO ~ Signed [facility] Work Phone: 1(282) 724-985303-12-2024 History of Present illness Narrative* Dali Story [...] 03, 2023 1:47 PM documented in this encounterLakehealth [facility]01-03-2024 Telephone encounter Note * Telephone Encounter - Dayday Orellana - 09/25/2023 2:14 PM EST Left voicemail to see if patient still interested in program. [id number] Miscellaneous Notes* Telephone Encounter - Dayday Orellana - 09/25/2023 2:14 PM EST Left voicemail to see if patient still interested in program. * Telephone Encounter - Dayday Orellana - 09/25/2023 2:13 PM EST Left voicemail to see if patient still interested in surgical program. * Telephone Encounter - Stephenie Rendon - 09/25/2023 2:05 PM EST EGD Orders sent back to [facility] after several unsuccessful attempts were made to reach patient to schedule EGD surgery. Routed to Reyna Naylor. * Telephone Encounter - Danielle Chambers LPN - 07/24/2023 3:26 PM EDT Pre op check list scanned to [employer], orders mailed. * Addendum Note - JONA Quiroz - 07/23/2023 9:57 AM EDTAddended by: MINH LUU on: 07/23/2023 09:57 AM Modules accepted: Orders * Telephone Encounter - JONA Quiroz - 07/23/2023 9:53 AM EDT Orders added. EGD documentation encounter created. Checklist completed and provided with orders with clinical team for processing. BARIATRIC AND METABOLIC SURGERY [facility] PATIENT SUMMARY Katarzyna Alcantar 48 y.o. [...] - 07/18/2023 2:31 PM EDT Initial New [facility] surgical patient Navigation & Financial Counseling Discussion Patient Communication: In office SURGEON: [x] JPeggy [] AD [] MP [] TB [] [...] 1) Scheduled at new pt surgeon visit: Low Pressure Kettle Operator (RD) for a Nutrition Assessment (BNA) and [...] before and after surgery. documented in this [facility]01-03-2024 Telephone encounter Note* Telephone Encounter - Dayday Orellana - 09/25/2023 2:13 PM EST Left voicemail to see if patient still interested in surgical program. [facility] [id number] Telephone encounter Note* Telephone Encounter - Stephenie Rendon - 09/25/2023 2:05 PM EST EGD Orders sent back to [facility] after several unsuccessful attempts were made to reach patient to schedule EGD surgery. Routed to Reyna Naylor. [facility] [id number] NoteNo show for EGD - will call to [facility]11-07-2023 History of Present illness Narrative* Bambi Thomas LPN - 07/30/2023 3:08 PM EST Verified name and date of . CC Supra pubic catheter in Place HPI: Katarzyna Vargas is a 48 year old female. The patient is here now for a supra pubic catheter change. Patient reports SPT has been changed twice at [facility] due to issues but they did [...] planned. Bambi Thomas LPN documented in this encounterLake[facility]11-03-2023 Miscellaneous Notes* Telephone Encounter - Bambi Thomas LPN - 07/26/2023 3:00 PM EDT Verified name and date of . Patient coming Saturday for SPT Tube. Patient needs order for T-sponges, Flushing solutions (does daily, some times twice daily), order for 24 FR 3-way catheter in event she has to change herself when she moves to [facility] (waiting on her insurance to approve hospital bed so she is still at [facility]. [facility] gives no nursing nursing support and patient reports she can change SPT Tube if she hasto. She needs orders printed to steel pick[employer] on Saturday. Bambi Thomas LPN documented in this encounterLake[facility]11-01-2023 Telephone encounter Note * Telephone Encounter - Danielle Chambers LPN - 07/24/2023 3:26 PM EDT Pre op check list scanned to media, orders mailed. [facility] [id number] Miscellaneous Notes* Telephone Encounter - Danielle Chambers [...] team for processing. BARIATRIC AND METABOLIC SURGERY [facility] PATIENT SUMMARY Katarzyna Alcantar 48 y.o. female with Body mass index is 47.1 kg/m . Planned Procedures: Laparoscopic Sleeve Gastrectomy DM[] HTN[] MODESTO[] GERD[x] HL[] OA[] TOB[x] Date of Surgery: TBD ARABELLA DARREL VELOZ INITIAL PRE-OP TESTING ORDERS/ RESULTS Labwork [...] - 07/18/2023 2:31 PM EDT Initial New [facility] surgical patient Navigation & Financial [...] 1) Scheduled at new pt surgeon visit: Low Pressure Kettle Operator (RD) for a Nutrition Assessment (BNA) and [...] before and after surgery. documented in this [facility]10-31-2023 NoteAddended by: MINH LUU on: 07/23/2023 09:57 AM Modules accepted: [facility]10-31-2023 Note* Addendum Note - JONA Quiroz - 07/23/2023 9:57 AM EDTAddended by: MINH LUU on: 07/23/2023 09:57 AM Modules accepted: Orders [facility] [id number] Note* Addendum Note - JONA Quiroz - 07/23/2023 9:57 AM EDTAddended by: MINH LUU on: 07/23/2023 09:57 AM Modules accepted: Orders [facility] [id number] Note* Addendum Note - JONA Quiroz - 07/23/2023 9:57 AM EDTAddended by: MINH LUU on: 07/23/2023 09:57 AM Modules accepted: Orders [facility] [id number] Note* Addendum Note - JONA Quiroz - 07/23/2023 9:57 AM EDTAddended by: MINH LUU on: 07/23/2023 09:57 AM Modules accepted: Orders [facility] [id number] Telephone encounter Note* Telephone Encounter - JONA Quiroz - 07/23/2023 9:53 AM EDT Orders added. EGD documentation encounter created. Checklist completed and provided with orders with clinical team for processing. BARIATRIC AND METABOLIC SURGERY [facility] PATIENT SUMMARY Katarzyna Alcantar 48 y.o. female with Body mass index is 47.1 kg/m . Planned Procedures: Laparoscopic Sleeve Gastrectomy DM[] HTN[] MODESTO[] GERD[x] HL[] OA[] TOB[x] Date of Surgery: Rosemarie VELOZ INITIAL PRE-OP TESTING ORDERS/ RESULTS Labwork [...] result we will proceed with sleeve gastrectomy [facility] [id number] History of Present illness Narrative* JONA Quiroz - 07/23/2023 9:53 AM EDT ENDOSCOPY ORDERS To be scheduled with: Dr. Alcantar Patient is: Pre-op/Pre-Bariatric Surgery CPT code: EGD with biopsy- CPT 61041 Diagnosis: GERD- K21.9 If pre-op, Diet & Exercise Requirements are, and started/scheduled on 09/04/23: 6 months Home O2: No Known Difficult Intubation: No * Rl Moon - 07/23/2023 9:53 AM EDT EGD W BIOPSY scheduled Date: 08/13 Time: 11:15 Place: [address] [place] [address] Patient notified via phone and MAIL * Kaley Parra - 07/23/2023 9:53 AM EDT printed documented in this [facility]10-31-2023 History of Present illness Narrative* JONA Quiroz - 07/23/2023 9:53 AM EDT ENDOSCOPY ORDERS To be scheduled with: Dr. Alcantar Patient is: Pre-op/Pre-Bariatric Surgery CPT code: EGD with biopsy- CPT 23820 Diagnosis: GERD- K21.9 If pre-op, Diet & Exercise Requirements are, and started/scheduled on 09/04/23: 6 months Home O2: No Known Difficult Intubation: No * Rl Moon - 07/23/2023 9:53 AM EDT EGD W BIOPSY scheduled Date: 08/13 Time: 11:15 Place: [address] [place] [address] Patient notified via phone and MAIL * Kaley Parra - 07/23/2023 9:53 AM EDT printed * Ayanna Anderson RN - 07/23/2023 9:53 AM EDT Images from the original note were not included. [facility] Clinical Contact Lens Blocker No show for EGD - please call to r/s - thanks! documented in this [facility]10-31-2023 History of Present illness Narrative* JONA Quiroz - 07/23/2023 9:53 AM EDT ENDOSCOPY ORDERS To be scheduled with: Dr. Alcantar Patient is: Pre-op/Pre-Bariatric Surgery CPT code: EGD with biopsy- CPT 89763 Diagnosis: GERD- K21.9 If pre-op, Diet & Exercise Requirements are, and started/scheduled on 09/04/23: 6 months Home O2: No Known Difficult Intubation: No * Rl Moon - 07/23/2023 9:53 AM EDT EGD W BIOPSY scheduled Date: 08/13 Time: 11:15 Place: [address] [place] [address] Patient notified via phone and MAIL * Kaley Parra - 07/23/2023 9:53 AM EDT printed * Ayanna Anderson RN - 07/23/2023 9:53 AM EDT Images from the original note were not included. Geoff Alcantar MD [facility] Med 260 Clinical Contact Lens Blocker No show for EGD - please call to r/s - thanks! * Rl Moon - 07/23/2023 9:53 AM EDT LVM asking pt to call back to schedule EGD documented in this [facility]10-31-2023 History of Present illness Narrative* JONA Quiroz - 07/23/2023 9:53 AM EDT ENDOSCOPY ORDERS To be scheduled with: Dr. Alcantar Patient is: Pre-op/Pre-Bariatric Surgery CPT code: EGD with biopsy- CPT 25493 Diagnosis: GERD- K21.9 If pre-op, Diet & Exercise Requirements are, and started/scheduled on 09/04/23: 6 months Home O2: No Known Difficult Intubation: No * Rl Moon - 07/23/2023 9:53 AM EDT EGD W BIOPSY scheduled Date: 08/13 Time: 11:15 Place: [address] [place] [address] Patient notified via phone and MAIL * Kaley Parra - 07/23/2023 9:53 AM EDT printed * Ayanna Anderson RN - 07/23/2023 9:53 AM EDT Images from the original note were not included. Geoff Alcantar MD P [facility] Med 260 Clinical Contact Lens Blocker No show for EGD - please call to r/s - thanks! * Rl Moon - 07/23/2023 9:53 AM EDT LVM asking pt to call back to schedule EGD * Rl Moon - 07/23/2023 9:53 AM EDT LVM #2 documented in this [facility]10-31-2023 History of Present illness Narrative* JONA Quiroz - 07/23/2023 9:53 AM EDT ENDOSCOPY ORDERS To be scheduled with: Dr. Alcantar Patient is: Pre-op/Pre-Bariatric Surgery CPT code: EGD with biopsy- CPT 95259 Diagnosis: GERD- K21.9 If pre-op, Diet & Exercise Requirements are, and started/scheduled on 09/04/23: 6 months Home O2: No Known Difficult Intubation: No * Rl Moon - 07/23/2023 9:53 AM EDT EGD W BIOPSY scheduled Date: 08/13 Time: 11:15 Place: [address] [place] [address] Patient notified via phone and MAIL * Kaley Parra - 07/23/2023 9:53 AM EDT printed * Ayanna Anderson RN - 07/23/2023 9:53 AM EDT Images from the original note were not included. [facility] Clinical Contact Lens Blocker No show for EGD - please call to r/s - thanks! * Rl Moon - 07/23/2023 9:53 AM EDT LVM asking pt to call back to schedule EGD * Rl Moon - 07/23/2023 9:53 AM EDT LVM #2 * Rl Moon - 07/23/2023 9:53 AM EDT LVM #3 sending back to [facility] documented in this [facility]10-31-2023 History of Present illness Narrative* JONA Quiroz - 07/23/2023 9:53 AM EDT ENDOSCOPY ORDERS To be scheduled with: Dr. Alcantar Patient is: Pre-op/Pre-Bariatric Surgery CPT code: EGD with biopsy- CPT 16461 Diagnosis: GERD- K21.9 If pre-op, Diet & Exercise Requirements are, and started/scheduled on 09/04/23: 6 months Home O2: No Known Difficult Intubation: No * Rl Moon - 07/23/2023 9:53 AM EDT EGD W BIOPSY scheduled Date: 08/13 Time: 11:15 Place: [address] [place] [address] Patient notified via phone and MAIL * Kaley Parra - 07/23/2023 9:53 AM EDT printed * Ayanna Anderson RN - 07/23/2023 9:53 AM EDT Images from the original note were not included. Geoff Alcantar MD P [facility] Med 260 Clinical Contact Lens Blocker No show for EGD - please call to r/s - thanks! * Rl Moon - 07/23/2023 9:53 AM EDT LVM asking pt to call back to schedule EGD * Rl Moon - 07/23/2023 9:53 AM EDT LVM #2 * Rl Moon - 07/23/2023 9:53 AM EDT LVM #3 sending back to [facility] * Stephenie Rendon - 07/23/2023 9:53 AM EDT 09/17/23 Printed. NF documented in this [facility]10-26-2023 NoteInitial New [facility] surgical patient Navigation & Financial [...] 1) Scheduled at new pt surgeon visit: Low Pressure Kettle Operator (RD) for a Nutrition Assessment (BNA) and [...] communications and lab/testing results before and after surgery.[facility]10-26-2023 Telephone encounter Note* Telephone Encounter - Valencia Jimenez - 07/18/2023 2:31 PM EDT Initial New [facility] surgical patient Navigation & Financial [...] 1) Scheduled at new pt surgeon visit: Low Pressure Kettle Operator (RD) for a Nutrition Assessment (BNA) and [...] and lab/testing results before and after surgery. [facility] [id number] History of Present illness Narrative* Geoff Alcantar MD - 07/18/2023 1:30 PM EDT Images from the original note were not included. [facility] SURGICAL PROGRAM INITIAL EVALUATION [...] Date SECTION, LOW TRANSVERSE 2001 pfannenstiel HYSTERECTOMY [facility] KNEE ARTHROPLASTY 2005 [facility] LAP,CHOLECYSTECTOMY (HISTORICAL) 2002 SPINE SURGERY 01/19/2021 Social History: This patient [...] I advised them to discuss with their physician/oracle ebs architect regarding contraception to prevent during this period of time after surgery. In addition, all patients were counseled on compliance with prescribed vitamin supplementation, office visit follow-up and compliance with program standards. Plan: I have recommended proceeding with the evaluation, workup and agriculture consultant preoperative consultationsand testing for the primary procedure as outlined below: BARIATRIC AND METABOLIC SURGERY [facility] PATIENT SUMMARY Katarzyna Alcantar 48 y.o. female [...] performed the evaluation and management of Katarzyna Vargas in the development of a treatment [...] MD as Surgeon (General Surgery) * Danielle PantojaSILVA lucas - 07/18/2023 1:30 PM EDT [facility] Rooming [...] by: Danielle Chambers LPN documented in this [facility]09-29-2023 Miscellaneous Notes* Telephone Encounter - Cristina Sellers [...] to nurse in a different unit at [facility] because patient's nurse was not available.She will have nurse call office back regarding results. Results also faxed to facility. Sylvia Pritchett RN * Telephone Encounter - Cristina Sellers APRN.CNP - 06/21/2023 8:33 AM EDT Please let the pt know that her vaginal cultures is negative for infection. She can try RepHresh for the vaginal burning. Cristina Sellers APRN.CNP documented in this encounterLakehealth [facility]08-30-2023 Instructions* Patient Instructions* Frankie Lang DO - 05/22/2023 1:03 PM EDT You have received botulinum toxin injections today. The skin around the site of injections should be monitored for a couple of days. If redness or swelling occur, the skin should be examined by a health companion caregiver to rule out infection. Please contact our office via [employer] or by phone at [phone] in 2 weeks to report on the effects of the injections, or any time with any questions or concerns. Please note that your next injections should not be scheduled less than 90 days from today. If your health insurance changes before the next injections, please contact our office at [phone] as soon as possible so we can submit a new pre- authorization if needed. Please note that we may not be able to perform the injections if your insurance changes and the treatment is not pre-authorized. documented in this encounterLakehealth [facility]wood [facility] Center08-30-2023 History of Present illness Narrative* [...] extension 5 5 Wrist extension 5 4 Coremaker Supervisor strength (kg) 32 26 Hip flexion 3+ [...] Clinician(s) performing the injections: Nely Cabezas MD Machine Set Up Operator Paper Goods: Fariha Jimenez RN Brand of toxin injected: [...] 100 units / 1 ml LOT #: [id number] Expiration Date: Month: 12 Year: 25 The [...] Please see attestation for complete plan. Frankie Lang DO Physical Medicine and Rehabilitation PGY-4 Staff note: I have reviewed the resident note, and reviewed this information with the patient to confirm its accuracy. I personally repeated the relevant review of systems, and I repeated the espinal elements of thephysical examination, supervised the procedure. I agree with the diagnosis and plan, as outlined above. Nely Cabezas MD documented in this encounterLakehealth [facility] Center08-25-2023 Discharge summary Author Souleymane Fragoso [facility] May 17, 2023 7:44am Note Date/Time May 17, 2023 6: 24am [facility] Medical Records Department [address] [place] [address] Emergency Department Summary 05/17/23 MR#: [id number] Acct: [id number] Name: KATARZYNA VARGAS Rep #:[id number] : 1975 48 From: Reanto Henson MD PCP: Dr. Dawit Abreu MD [...] comfortablewith her being discharged back to the halfway. Additional impression: Acute myofascial cervical strain 05/17/23 [...] intact. She has normal 5 and 5 teletypesetter strength both hands. Shoulders, elbows and wrists [...] Lidocaine with epi and Local Number of Sutures/Archer: 5 Suture Information: Ethilon, Simple and 5-0 [...] narrative: 48-year-old female resident of an area fdc facility due to paraplegia. Fell to bed [...] your Primary Care Provider. Call [facility] ([phone]) or report to the closest Emergency Room. Call 911 if necessary. 05/17/23 0709 <Electronically signed by Renato Henson MD> Cosigner Signature (if applicable): CC: Dr. Dawit Abreu MD ~ Signed [facility] Work Phone: 1(764) 178-769202-15-2023 History of Present illness Narrative* Nely Cabezas [...] extension 5 5 Wrist extension 5 4 Coremaker Supervisor strength (kg) 32 30 Hip flexion 4 [...] Clinician(s) performing the injections: Nely Cabezas MD Machine Set Up Operator Paper Goods: Fariha Jimenez RN Brand of toxin injected: [...] 100 units / 2 ml LOT #: [id number] Expiration Date: Month: 3 Year: 25 The [...] mn. Nely Cabezas MD documented in this encounterLakehealth [facility]wood [facility] Center2023 Telephone encounter Note * Telephone [...] no needs at this time. Appointment cancelled. [facility] [id number] Miscellaneous Notes* Telephone Encounter - Jennifer Kaur [...] RN - 10/01/2022 1:34 PM EST Called [facility]. Vehicle Body Maker answered phone and transferred call to nurse Johnathan. Phone rang for 1 minute with no answer. Routing back to clinical to call again. * Telephone Encounter - Jennifer Kaur RN - 09/27/2022 9:35 AM EST Received VM from patient's nurse Johnathan at [facility] stating patient needs to move appointment sooner. She states patient has SPT but feeling abdominal pressure. Patient has no appointment scheduled in [facility]. Returned call to patient's facility. Requested to speak with patient's nurse and person answering hung up. Called twice again, and line rang for 2 minutes then disconnected each time. Will need to attempt to contact nurse again. documented in this encounterSHolzer [id number] Telephone encounter Note* Telephone Encounter - Tony Islas RN - 10/02/2022 3:20 PM EST Phone call placed to facility spoke to Johnathan. Appointment scheduled with JOSE . [facility] [id number] Telephone encounter Note* Telephone Encounter - Gabriela Hadley RN - 10/01/2022 1:34 PM EST Called [facility]. Vehicle Body Maker answered phone and transferred call to nurse Johnathan. Phone rang for 1 minute with no answer. Routing back to clinical to call again. [facility] [id number] Telephone encounter Note* Telephone Encounter - Jennifer Kaur RN - 09/27/2022 9:35 AM EST Received VM from patient's nurse Johnathan at [facility] stating patient needs to move appointment sooner. She states patient has SPT but feeling abdominal pressure. Patient has no appointment scheduled in [facility]. Returned call to patient's facility. Requested to speak with patient's nurse and person answering hung up. Called twice again, and line rang for 2 minutes then disconnected each time. Will need to attempt to contact nurse again. [facility] [id number] History of Present illness Narrative* Nely Cabezas [...] extension 5 5 Wrist extension 5 4 Coremaker Supervisor strength (kg) 30 30 Hip flexion 4 [...] Clinician(s) performing the injections: Nely Cabezas MD Machine Set Up Operator Paper Goods: Fariha Jimenez RN Brand of toxin injected: [...] 100 units / 2 ml LOT #: [id number] Expiration Date: Month: 2 Year: 25 The [...] mn. Nely Cabezas MD documented in this encounterLakehealth [facility]wood [facility] Center06-29-2022 History of Present illness Narrative* [...] extension 5 5 Wrist extension 5 4 Coremaker Supervisor strength (kg) 29 24 Hip flexion 4 [...] Clinician(s) performing the injections: Nely Cabezas MD Machine Set Up Operator Paper Goods: Fariha Jimenez RN Brand of toxin injected: [...] 100 units / 2 ml LOT #: [id number] Expiration Date: Month: 9 Year: 23 The [...] mn. Nely Cabezas MD documented in this encounterLakehealth Beachwood [facility] Center06-15-2022 Miscellaneous Notes* Telephone Encounter - Sena Jimenez RN - 03/07/2022 1:35 PM EDT Images from the original note were not included. Called patient Confirmed appointment for botox injections Faxed reminder to facility * Telephone Encounter - Sena Jimenez RN - 03/07/2022 11:04 AM EDT Called patient, rang, no answer, mailbox not set up, unable to leave a message Resides at [facility] SPECIALTY CARE COORDINATION QUICK NOTE Called talked with assistant secretary at [facility] Patient identified by name and date of : Yes She confirms they arrange transportation for patient Confirmed insurance is Medicaid, [place] Agreed on 03/21 appointment at 945am with Dr Cabezas; slot put on hold, page sent to add on pool Address given to facility Will also fax appointment reminder to [phone] Patient has Medicaid, [place] No PA needed * Telephone Encounter - Santos Figueroa - 03/07/2022 8:12 AM EDT Dorcas Call Name of caller : Katarzyna Vargas Relationship to patient: Self Return call phone number : [phone] Reason for call : Botox : Brief description of concern : Wanted to know if she was approved for botox documented in this encounterLakehealth Beachwood Medical Center05-27-2022 History of Present illness Narrative* Deyanira Petersen APRN.[facility] - 02/16/2022 2:30 PM EDT REFERRAL SOURCE: Traci Solano MD [facility] - Medical Office Building [address] [place] [address] FOLLOWED BY: No primary care provider on [...] developed quadriplegia post-op. She was admitted to [facility] in 02/2021 following acute hospital [...] was admitted to a local hospital in [place], [place] in 10/2021 for management of respiratory [...] has been seen by Pain Management in [place] (Dr. Jimmy Solano with ) and was reportedly told they couldn't do anything for me because of the surgeries and hardware in her back. Opioid medications were not prescribed/recommended. Pt. was advised that an intrathecal pump could be an option, but the evaluation and initiation of this would need to be done [facility]. She was told the pump [...] procedure. She follows with urology locally at [facility] for SPC management/changes (most recent catheter [...] situations and safety at home: Resides in [place], [place]. History of IVDU (heroin), opiate use/abuse, marijuana use, alcohol abuse (age 14 until about 2 years ago on review of records). She was born in [place]. Her parents are . She has siblings, [...] Depression, recurrent (HCC) H/O spinal cord injury 2/2 to epidural phlegmon and abscess requiring surgery Neurogenic bladder s/p supra-pubic catheter placement in 2021 Other chronic pain Phlegmon C6-T3 epidural phlegmon, s/p C2-T2 decompression and fusion with evacuation of phlegmon in 01/2021 Spastic quadriparesis (HCC) Spinal cord abscess S/p ACDF and abscess evauation in 01/2021 PAST SURGICAL HISTORY Procedure Laterality Date SECTION HX N/A 2002 REMOVAL GALLBLADDER 2001 SUPRAPUBIC CATHETER 2021 TOTAL ABDOM HYSTERECTOMY 2015 TOTAL KNEE REPLACEMENT Right 2014 Social History Tobacco Use Smoking status: Current [...] Strength: Muscle atrophy of the Left hand Coremaker Supervisor strength 5/5 bilaterally . Spasticity Right Left [...] was previously on opioid pain medication at [facility], but has been weaned off of these. [...] on how she can set up her [employer] account). She knows to contact the office sooner if she develops any side effects or with any problems or concerns. Can consider further dose increase(s) v. trial of a different medication (ie- tizanidine) based on how she tolerates/how she is feeling. Encouraged her to continue with therapy at her nursing facility and also with regular stretching asshe is able. Advised that this will be even more important after botox is initiated, as these will help augment the effects of the injections. Initial pre-authorization Medication: Botox [id number] Dose (units every 90 days): 300-400 If initial pre-authorization; list treatments failed: PT/OT, Baclofen and Other CPT Codes: Limbs: 92926 and 85085 EMG guidance: 06971 Educational materials provided: botox pamphlet Checklist for [...] betadine: no Transportation problems: yes lives in [place], does not drive, transport is provided by [place] staff Other: yes documented h/o of IVDU, [...] which included preparing to see the patient, [id number] patient care, completing clinical documentation, obtaining and/or reviewing separately obtained history, performing a medically appropriate examination, counseling and educating the pat ient/family/caregiver, ordering medications, tests, or procedures, communicating with other HCPs (not separately reported), independently interpreting results (not separately reported), communicatingresults to the patient/family/caregiver and care coordination (not separately reported). Deyanira Petersen APRN.CNP February 16, 2022 6:11 PM documented in [facility] NoteDischarge Summary Katarzyna Vargas : [...] Your Medications These medications were sent to [facility] [place], [place] - [address] [facility] - P [phone] - F [phone] [id number] [facility] [address], [place] [address] ciprofloxacin 500 MG tablet DIET: No diet [...] minutes SIGNED: Britni Meraz MD 11/09/2021, 4:04 [facility]02-04-2022 NoteDischarge Summary Katarzyna Vargas : 1975 ADMIT [...] Complexity: follow up within 7-14 calendar days (69898) [] Severe Complexity: follow up within 7 calendar days (69208) FOLLOW UP TESTING, PENDING RESULTS OR REFERRALS AT TRANSITIONAL CARE VISIT: [] Yes [] No PENDING STUDIES: @LABRRPENDINGTESTS@ RECOMMENDED NEXT STEPS: Taper dilaudid and valium [facility]ACILITY/HOME CARE AGENCY NAME: Follow up [...] minutes SIGNED: Kamila White MD 10/31/2021, 9:39 [facility]05-23-2021 Note. MICRO - Microbiology PROCEDURE: Clostridium difficile [...] values are highly dependent on prevalence. The [employer] C. difficile PCR Assay performance may vary depending on the prevalence and population tested. Performing Locations *1: This test was performed at: [facility], [address] [place] [address], [phone] , [facility] ([place])Comment on above:Performed By: #### CBC, ADIFF, ANEU, FERR, FOL, MG, TSH, PHOS, B12, FES, PRALB, GFR, CMP #### [address] [address]Laifbdtpul note* Diagnosis Spastic quadriparesis (HCC)- Primary Quadriplegia, unspecified Paraparesis of both lower limbs (HCC) Paraplegia History of spinal cord injury Personal history of other disorders of nervous system and sense organs Spinal epidural abscess Intraspinal abscess Abnormality of gait Impaired mobility and ADLs Other ill-defined conditions Anxiety Anxiety state, unspecified Depression, unspecified depression type [facility]* Diagnosis Spastic quadriparesis (HCC)- Primary Quadriplegia, unspecified Abnormality of gait Contracture of joint of multiple sites documented in this encounter [facility] note* Diagnosis Spastic quadriparesis (HCC)- Primary Quadriplegia, unspecified Spasticity Abnormal involuntary movements Abnormality of gait [facility] noteNo assessment information availableWBlanchard [facility] Work Phone: Evaluation note* Diagnosis History of spinal cord injury- Primary Personal history of other disorders of nervous system and sense organs Spastic quadriparesis (HCC) Quadriplegia, unspecified documented in this encounter [facility] note* Diagnosis Tobacco use- Primary Back pain, unspecified back location, unspecified back pain laterality, unspecified chronicity Gastroesophageal reflux disease without esophagitis Esophageal reflux Morbid obesity with BMI of 45.0-49.9, adult (HCC) skilled nursing resident Wheelchair dependent Wheelchair dependence documented in this encounter [facility] note* Diagnosis Back pain, unspecified back location, unspecified back pain laterality, unspecified chronicity- Primary Gastroesophageal reflux disease without esophagitis Esophageal reflux Morbid obesity with BMI of 45.0-49.9, adult (HCC) Tobacco use Wheelchair dependent Wheelchair dependence Pre-operative laboratory examination Pre-procedural laboratory examination Pre-operative clearance Unspecified pre-operative examination Gastro-esophageal reflux disease without esophagitis documented in this encounter [facility] note* Diagnosis Atonic neurogenic bladder- Primary Neurogenic bladder, NOS documented in this encounter [facility] note* Diagnosis Atonic neurogenic bladder- Primary Neurogenic bladder, NOS documented in this encounter [facility] note* Diagnosis Back pain, unspecified back location, unspecified back pain laterality, unspecified chronicity- Primary Gastroesophageal reflux disease without esophagitis Esophageal reflux Morbid obesity with BMI of 45.0-49.9, adult (HCC) Tobacco use Wheelchair dependent Wheelchair dependence Pre-operative laboratory examination Pre-procedural laboratory examination Pre-operative clearance Unspecified pre-operative examination documented in this encounter [facility] note* Diagnosis Neurogenic bladder- Primary Neurogenic bladder, NOS documented in this encounter [facility] note* Diagnosis Neurogenic bladder- Primary Neurogenic bladder, NOS documented in this encounter [facility] note* Diagnosis Neurogenic bladder- Primary Neurogenic bladder, NOS [facility] Diagnosis Neurogenic bladder- Primary Neurogenic bladder, NOS [facility]* Diagnosis Neurogenic bladder- Primary Neurogenic bladder, NOS [facility]* Diagnosis Neurogenic bladder- Primary Neurogenic bladder, NOS Screening for genitourinary condition Screening for other and unspecified genitourinary condition Hematuria, unspecified type Bladder spasm Other specified disorders of bladder documented in this encounter [facility]* Diagnosis Neurogenic bladder- Primary Neurogenic bladder, NOS documented in this encounter [facility]* Diagnosis Painful bladder spasm- Primary Other symptoms involving urinary system Bladder spasm Other specified disorders of bladder documented in this encounter [facility]* Diagnosis Chronic suprapubic catheter (HCC)- Primary Unspecified cystostomy status Neurogenic bladder Neurogenic bladder, NOS documented in this encounter [facility]* Diagnosis Neurogenic bladder- Primary Neurogenic bladder, NOS documented in this encounter [facility]* Diagnosis Neurogenic bladder- Primary Neurogenic bladder, NOS documented [facility]* Diagnosis Neurogenic bladder- Primary Neurogenic bladder, NOS Urinary retention Retention of urine, unspecified [facility] Diagnosis Suprapubic catheter (CMS/HCC V24, CMS/HCC V28)- Primary Other cystostomy status documented in this encounter [facility] Discharge instructions Additional Instructions Clean wound daily with soap and water or peroxide and water. Stitches out in 7 days. Watch for any signs of infection is seen needs evaluated. Tetanus was updated. Head injury instructions. Tylenol for pain. Ice to the forehead 3 times a day for 30 minutes each time for the next 2 days.[facility] Work Phone: Hospital Discharge instructionsAdditional Instructions Your potassium was slightly low. I recommend you follow-up with your primary care doctor.[facility] Work Phone: Hospital Discharge instructionsAdditional Instructions Follow-up with your doctor in the outpatient setting. Take Keflex as prescribed follow-up on urine culture. Return with worsening symptoms or any concerns your blood work showed a mild hypokalemia therefore you were given potassium supplementation in the emergency department. Your CT of your neck did not show any acute findings today.[facility] Work Phone: Hospital Discharge instructionsAdditional Instructions Your labs look good. Your urine had white cells in it but that is common for suprapubic catheter. A culture will be sent if that shows an infection we will notify you. Your catheter appears to be working well. If there is further problems follow-up with your urologist.[facility] Work Phone: Reason for referral (narrative)* Consultation (Routine) - Pending Review Specialty Diagnoses / Procedures Referred By Contac t Referred To Contact Pulmonary Disease / Pulmonology Diagnoses Morbid obesity with BMI of 45.0-49.9, adult (HCC) Tobacco use Pre-operative clearance Procedures [place] OFFICE/OUTPATIENT NEW HIGH MDM 60-74 MINUTES Minh Luu PA [address] [place] [address] [facility] [address] [place] [address] Referral ID Status Reason Start Date Expiration Date Visits Requested Visits Authorized [id number] Pending Review Specialty Services Required 3 07/22/2024 1 1 * Consultation (Elective) - Pending Review Specialty Diagnoses / Procedures Referred By Maddieac t Referred To Contact Cardiology Diagnoses Morbid obesity with BMI of 45.0-49.9, adult (HCC) Tobacco use Pre-operative clearance Procedures [place] OFFICE/OUTPATIENT NEW HIGH MDM 60-74 MINUTES Minh Luu PA [address] [place] [address] [facility] [address] [place] [address] Referral ID Status Reason Start Date Expiration Date Visits Requested Visits Authorized [id number] Pending Review Specialty Services Required 3 07/22/2024 1 1 [facility] for referral (narrative)* Outpatient Procedure (Routine) - New Request Specialty Diagnoses / Procedures Referred By Contac t Referred To Contact [facility] Diagnoses Neurogenic bladder Procedures SUPRAPUBIC TUBE CHANGE ASPIRATION BLADDER INSERT SUPRAPUBIC CATHETER Rush Maxwell PA-C [address] [place] [address] [facility] [address] [place] [address] Referral ID Status Reason Start Date Expiration Date Visits Requested Visits Authorized [id number] New Request Auto-Generat ed Referral 06/30/2024 06/30/2025 99 1 [facility] (narrative)No reason for referral information availableWBlanchard [facility] Work Phone: Summary Purpose Family History No Family History Records Found Relationship Condition Age at Onset Recorded Date/T karoline Unknown Family History?No pe rtinent history Unknown May 24, 2016 5:12pm Family History?No pe rtinent history Unknown February 13, 2019 2:30am Relationship Condition Age at Onset Recorded Date/T karoline Unknown Family History?No pe rtinent history Unknown May 24, 2016 6:12pm Family History?No pe rtinent history Unknown February 13, 2019 3:30am Advance Directives No Advanced Directives Records Found Advance Directive Response Recorded Date/ Time Advance Directives No August 29, 2016 9:15am Living Will No January 18, 2021 3:47pm Power of Implementation Coordinator No January 18 3:47pm Advance Directive Response Recorded Date/ Time Advance Directives No August 29, 2016 10:15am Living Will No January 18, 2021 4:47pm Power of Implementation Coordinator No January 18 4:47pm Advance Directive Response Recorded Date/ Time Advance Directives No August 29, 2016 10:15am Living Will No February 06, 2023 9 :17pm Power of Implementation Coordinator No February 06, 2023 9:17pm Advance Directive Response Recorded Date/ Time Name of Medical Power of Implementation Coordinator SRUYA GHANSHYAM May 17, 2023 6:07am Advance Directives No August 29, 2016 10:15am Living Will No May 17 6:07am Power of Implementation Coordinator Yes May 17, 2 023 6:07am Latest Code Status on File Code Status Date Activated Date Inactivated Comments Full Code 07/30/2022 4:48 PM 07/31/2022 1:52 PM Latest Code Status on File Code Status Date Activated Date Inactivated Comments Full Code 07/30/2022 4:48 PM 07/31/2022 1:52 PM Advance Directive Response Recorded Date/ Time Name of Medical Power of Implementation Coordinator SURYA MORRISSEY May 17, 2023 5:07am Advance Directives No August 29, 2016 9:15am Living Will No May 17 5:07am Power of Implementation Coordinator Yes May 17, 023 5:07am Advance Directive Response Recorded Date/ Time Advance Directives No August 29, 2016 9:15am Living Will No May 17 5:07am Power of Implementation Coordinator Yes May 17, 023 5:07am Advance Directive Response Recorded Date/ Time Advance Directives No August 29, 2016 10:15am Living Will No December 07, 2023 4:43am Power of Implementation Coordinator No December 06 4:43am Advance Directive Response Recorded Date/ Time Advance Directives No August 29, 2016 10:15am Living Will No January 19, 2024 9:22pm Power of Implementation Coordinator No January 18 9:22pm Advance Directive Response Recorded Date/ Time Do you have a Healthcare Power of Implementation Coordinator? No March 19, 2025 1:42pm Advance Directives No August 29, 2016 10:15am Advance Directive Response Recorded Date/ Time Do you have a Healthcare Power of Implementation Coordinator? No March 19, 2025 1:42pm Do you have a Healthcare Power of Implementation Coordinator? No March 28, 2025 2:35pm Advance Directives No August 29, 2016 10:15am Advance Directive Response Recorded Date/ Time Do you have a Healthcare Power of Implementation Coordinator? No March 19, 2025 1:42pm Do you have a Healthcare Power of Implementation Coordinator? No March 28, 2025 2:35pm Do you have a Healthcare Power of Implementation Coordinator? No April 01, 2025 11:30am Advance Directives No August 29, 2016 10:15am Advance Directive Response Recorded Date/ Time Do you have a Healthcare Power of Implementation Coordinator? No March 19, 2025 1:42pm Do you have a Healthcare Power of Implementation Coordinator? No March 28, 2025 2:35pm Do you have a Healthcare Power of Implementation Coordinator? No April 01, 2025 11:30am Do you have a Healthcare Power of Implementation Coordinator? No April 12, 2025 4:48pm Advance Directives [...] Complaint and Reason for Visit Chief Complaint [facility] K Chief Complaint [facility] WOR K [facility] WORK Chief Complaint [facility] WOR K [facility] LABWORK Chief Complaint LABWORK LABWORK LABWORK LEFT TIB/FIB FX LABWORK Chief Complaint LABWORK LEFT TIB/FIB FX [facility] LABWORK LABWORK [facility] WORK LABWORK [facility] WORK LABWORK HEAD INJURY Chief Complaint LABWORK [facility] WORK LABWORK HEAD INJURY LABWORK [facility] LABWORK [facility] WORK [facility] LABWORK Chief Complaint HEAD INJURY LABWORK [facility] LABWORK [facility] WORK [facility] LABWORK [facility] Chief Complaint [facility] Chief Complaint [facility] SEE ORDER Chief Complaint [facility] SEE ORDER leg fx Chief Complaint SEE ORDER leg fx SCHMITT PROBLEM Chief Complaint Admit Date substance abuse March 19, 2025 1:40 pm Chief Complaint Admit Date substance abuse Jessica 27th, 2025 1:40 pm substance abuse March 28, [...] section and content) DATE CREATED AUTHOR 05/18/2019 [facility] DATE CREATED AUTHOR AUTHOR'S ORGANIZ ATION 05/27/2020 [facility] DATE CREATED AUTHOR AUTHOR'S ORGANIZ ATION 03/24/2021 [facility] ([place]) DATE CREATED AUTHOR AUTHOR'S ORGANIZ ATION 10/02/2021 [facility] DATE CREATED AUTHOR AUTHOR'S ORGANIZ ATION 11/11/2021 [facility] DATE CREATED AUTHOR AUTHOR'S ORGANIZ ATION 04/11/2022 [facility] DATE CREATED AUTHOR AUTHOR'S ORGANIZ ATION 09/27/2023 [facility] DATE CREATED AUTHOR AUTHOR'S ORGANIZ ATION 04/17/2025 [facility] DATE CREATED AUTHOR AUTHOR'S ORGANIZ ATION 05/09/2025 [facility] DATE CREATED AUTHOR AUTHOR'S ORGANIZ ATION 06/04/2025 [facility] Source Comments (unrecognize d section and content) In the event this informatio n is protected by the Federal Confidentiality of Alcohol and Drug Abuse Patient Records regulations: The Federal rules restrict any use of the information to criminally investigate or prosecute any alcohol or drug abuse patient.[facility] CenterIn the event this information is protected by the Federal Confidentiality of Alcohol and Drug Abuse Patient Records regulations: The Federal rules restrict any use of the information to criminally investigate or prosecute any alcohol or drug abuse patient.[facility] CenterIn the event this information is protected by the Federal Confidentiality of Alcohol and Drug Abuse Patient Records regulations: The Federal rules restrict any use of the information to criminally investigate or prosecute any alcohol or drug abuse patient.[facility] CenterIn the event this information is protected by the Federal Confidentiality of Alcohol and Drug Abuse Patient Records regulations: The Federal rules restrict any use of the information to criminally investigate or prosecute any alcohol or drug abuse patient.[facility] CenterIn the event this information is protected by the Federal Confidentiality of Alcohol and Drug Abuse Patient Records regulations: The Federal rules restrict any use of the information to criminally investigate or prosecute any alcohol or drug abuse patient.[facility] CenterIn the event this information is protected by the Federal Confidentiality of Alcohol and Drug Abuse Patient Records regulations: The Federal rules restrict any use of the information to criminally investigate or prosecute any alcohol or drug abuse patient.[facility] CenterIn the event this information is protected by the Federal Confidentiality of Alcohol and Drug Abuse Patient Records regulations: The Federal rules restrict any use of the information to criminally investigate or prosecute any alcohol or drug abuse patient.[facility] CenterIn the event this information is protected by the Federal Confidentiality of Alcohol and Drug Abuse Patient Records regulations: The Federal rules restrict any use of the information to criminally investigate or prosecute any alcohol or drug abuse patient.[facility] CenterIn the event this information is protected by the Federal Confidentiality of Alcohol and Drug Abuse Patient Records regulations: The Federal rules restrict any use of the information to criminally investigate or prosecute any alcohol or drug abuse patient.[facility] CenterIn the event this information is protected by the Federal Confidentiality of Alcohol and Drug Abuse Patient Records regulations: The Federal rules restrict any use of the information to criminally investigate or prosecute any alcohol or drug abuse patient.[facility] CenterIn the event this information is protected by the Federal Confidentiality of Alcohol and Drug Abuse Patient Records regulations: The Federal rules restrict any use of the information to criminally investigate or prosecute any alcohol or drug abuse patient.[facility] CenterIn the event this information is protected by the Federal Confidentiality of Alcohol and Drug Abuse Patient Records regulations: The Federal rules restrict any use of the information to criminally investigate or prosecute any alcohol or drug abuse patient.[facility] CenterIn the event this information is protected by the Federal Confidentiality of Alcohol and Drug Abuse Patient Records regulations: The Federal rules restrict any use of the information to criminally investigate or prosecute any alcohol or drug abuse patient.[facility] CenterIn the event this information is protected by the Federal Confidentiality of Alcohol and Drug Abuse Patient Records regulations: The Federal rules restrict any use of the information to criminally investigate or prosecute any alcohol or drug abuse patient.[facility] CenterIn the event this information is protected by the Federal Confidentiality of Alcohol and Drug Abuse Patient Records regulations: The Federal rules restrict any use of the information to criminally investigate or prosecute any alcohol or drug abuse patient.[facility] CenterIn the event this information is protected by the Federal Confidentiality of Alcohol and Drug Abuse Patient Records regulations: The Federal rules restrict any use of the information to criminally investigate or prosecute any alcohol or drug abuse patient.[facility] CenterIn the event this information is protected by the Federal Confidentiality of Alcohol and Drug Abuse Patient Records regulations: The Federal rules restrict any use of the information to criminally investigate or prosecute any alcohol or drug abuse patient.[facility] CenterIn the event this information is protected by the Federal Confidentiality of Alcohol and Drug Abuse Patient Records regulations: The Federal rules restrict any use of the information to criminally investigate or prosecute any alcohol or drug abuse patient.[facility] CenterIn the event this information is protected by the Federal Confidentiality of Alcohol and Drug Abuse Patient Records regulations: The Federal rules restrict any use of the information to criminally investigate or prosecute any alcohol or drug abuse patient.[facility] CenterIn the event this information is protected by the Federal Confidentiality of Alcohol and Drug Abuse Patient Records regulations: The Federal rules restrict any use of the information to criminally investigate or prosecute any alcohol or drug abuse patient.[facility] CenterIn the event this information is protected by the Federal Confidentiality of Alcohol and Drug Abuse Patient Records regulations: The Federal rules restrict any use of the information to criminally investigate or prosecute any alcohol or drug abuse patient.[facility] CenterIn the event this information is protected by the Federal Confidentiality of Alcohol and Drug Abuse Patient Records regulations: The Federal rules restrict any use of the information to criminally investigate or prosecute any alcohol or drug abuse patient.[facility] CenterIn the event this information is protected by the Federal Confidentiality of Alcohol and Drug Abuse Patient Records regulations: The Federal rules restrict any use of the information to criminally investigate or prosecute any alcohol or drug abuse patient.[facility] CenterIn the event this information is protected by the Federal Confidentiality of Alcohol and Drug Abuse Patient Records regulations: The Federal rules restrict any use of the information to criminally investigate or prosecute any alcohol or drug abuse patient.[facility] CenterIn the event this information is protected by the Federal Confidentiality of Alcohol and Drug Abuse Patient Records regulations: The Federal rules restrict any use of the information to criminally investigate or prosecute any alcohol or drug abuse patient.[facility] CenterIn the event this information is protected by the Federal Confidentiality of Alcohol and Drug Abuse Patient Records regulations: The Federal rules restrict any use of the information to criminally investigate or prosecute any alcohol or drug abuse patient.[facility] CenterIn the event this information is protected by the Federal Confidentiality of Alcohol and Drug Abuse Patient Records regulations: The Federal rules restrict any use of the information to criminally investigate or prosecute any alcohol or drug abuse patient.[facility] CenterIn the event this information is protected by the Federal Confidentiality of Alcohol and Drug Abuse Patient Records regulations: The Federal rules restrict any use of the information to criminally investigate or prosecute any alcohol or drug abuse patient.[facility] CenterIn the event this information is protected by the Federal Confidentiality of Alcohol and Drug Abuse Patient Records regulations: The Federal rules restrict any use of the information to criminally investigate or prosecute any alcohol or drug abuse patient.[facility] CenterIn the event this information is protected by the Federal Confidentiality of Alcohol and Drug Abuse Patient Records regulations: The Federal rules restrict any use of the information to criminally investigate or prosecute any alcohol or drug abuse patient.[facility] Reason for Visit (unrecogniz ed section and content) Reason Comments Insurance Authorization Reason Comments Results Reason Comments Surgical Consult NEW Specialty Diagnoses / Procedures Referred By Miguelina t Referred To Contact Bariatric Surgery / Bariatrics Diagnoses Obesity, unspecified Procedures eval n treat [facility] [address] [place] [address] Referral ID Status Reason Start Date Expiration Date V isits Requested Visits Authorized [id number] Pending Review 06/24/2023 12/21/2023 1 1 Reason [...] Dr. Renato Henson MD Emergency Provider Active Engineering Group Leader Relationship Specialty Start Date End Date Darrel Veloz [facility] [place] [phone] PCP - General 08/01/19 Geoff Alcantar MD [address] [place] [id number] Surgeon General Surgery 07/12/23 Engineering Group Leader Relationship Specialty Start Date End Date Darrel Veloz [address] [place] [address] PCP - General 08/01/19 Geoff Alcantar MD [address] [place], [place] [id number] Surgeon General Surgery 07/12/23 Engineering Group Leader Relationship Specialty Start Date End Date Darrel Veloz [address] [place] [address] PCP - General 08/01/19 Geoff Alcantar MD [address] [place], [place] [phone] Surgeon General Surgery 07/12/23 Engineering Group Leader Relationship Specialty Start Date End Date Darrel Veloz [address] [place] [address] PCP - General 08/01/19 Geoff Alcantar MD [address] [place] [address] Surgeon General Surgery 07/12/23 Team Status: Inactive Member Role Status Dates Dr. Dawit Abreu MD Primary Care Provider Active Dr. Renato Henson MD Attending Provider, Emergency Pro vider Active Engineering Group Leader Relationship Specialty Start Date End Date Darrel Veloz [address] [place] [address] PCP - General 08/01/19 Geoff Alcantar MD [address] [place] [address] Surgeon General Surgery 07/12/23 Engineering Group Leader Relationship Specialty Start Date End Date Darrel Veloz [address] [place] [phone] PCP - General 08/01/19 Geoff Alcantar MD [address] [place] [address] [address] [place] [address] Surgeon General Surgery 07/12/23 Team Status: Inactive [...] DO Primary Care Provider Active Dr. Bradly Kruger MD Emergency Provider Active Team Status: Inactive Member Role Status Dates Dr. Darrel Veloz DO Primary Care Provider Active Dr. Sarah Saucedo MD Attending Provider, Emergency Provider Active Engineering Group Leader Relationship Specialty Start Date End Date Darrel Veloz DO [address] [place] [address] PCP - General Family Medicine 03/03/24 Engineering Group Leader Relationship Specialty Start Date End Date Darrel Veloz DO [address] [place], [place] [phone] PCP - General Family Medicine 03/03/24 Engineering Group Leader Relationship Specialty Start Date End Date Darrel Veloz DO [address] [place] [address] [place], [place] [phone] PCP - General Family Medicine 03/03/24 Engineering Group Leader Relationship Specialty Start Date End Date Darrel Veloz DO [address] [place] [address] [place], [place] [phone] PCP - General Family Medicine 03/03/24 Engineering Group Leader Relationship Specialty Start Date End Date Darrel Veloz DO [address] [place] [address] [place], [place] [phone] PCP - General Family Medicine 03/03/24 Engineering Group Leader Relationship Specialty Start Date End Date Darrel Veloz DO [address] [place], [place] [phone] PCP - General Family Medicine 03/03/24 Engineering Group Leader Relationship Specialty Start Date End Date Darrel Veloz [address] [place] [phone] PCP - General 08/01/19 Engineering Group Leader Relationship Specialty Start Date End Date Darrel Veloz DO [address] [place], [place] [address] PCP - General Family Medicine 03/03/24 Engineering Group Leader Relationship Specialty Start Date End Date Darrel Veloz DO [address] [place], [place] [phone] PCP - General Family Medicine 03/03/24 Engineering Group Leader Relationship Specialty Start Date End Date Darrel Veloz DO [address] [place], [place] [address] PCP - General Family Medicine 03/03/24 Team Status: Active Member Role/Relationship Status Dates Dr. Darrel Veloz DO Primary Care Provider Active Team Status: Inactive Member Role/Relationship Status Dates Dr. Darrel Veloz DO Primary Care Provider Active Start: March 19, 2025 End: March 19, 2025 Dr. Nick Angleo DO Emergency Provider Active Start: March 19, [...] March 28, 2025 End: March 28, 2025 Engineering Group Leader Relationship Specialty Start Date End Date Darrel Veloz DO [address] [place] [address] PCP - General Family Medicine 03/03/24 Team Status: Inactive Member Role/Relationship Status Dates Dr. Darrel Veloz DO Primary Care Provider Active Start: April 01, 2025 End: April 01, 2025 Dr. Samuel Hodges DO Referring Provider Active Start: April 01, 2025 End: April 01, 2025 Dr. Samuel Hodges DO Emergency Provider Active Start: April 01, 2025 End: April 01, 2025 Engineering Group Leader Relationship Specialty Start Date End Date Physician, No Pcp PCP General 04/08/25 Team Status: Inactive Member Role/Relationship [...] End: April 01, 2025 Dr. Samuel Hodges , DO Referring Provider Active Start: April 01, [...] BE BASED ON THE PRIMARY CLINICAL RECORDS. [employer] provides no warranty or guarantee of the accuracy or completeness of information in this document.
[2025-06-05 16:26] LABS: Mucous, Urine 0 SEEN /hpf (<or=2+)
[2025-06-05 16:49] LABS: Color, Urine Yellow (Yellow); Glucose, Dipstick Normal (Normal); Ketone-Dipstick 50 mg/dl (Negative); Leukocyte Esterase-Dipstick 500 /ul (Negative); Nitrite-Dipstick Positive (Negative); Occult Blood-Urine 250 /ul (Negative); Protein-Dipstick 100 mg/dl (Negative); Specific Gravity, Urine 1.020 (1.002-1.030); Urine Bilirubin Dipstick Negative (Negative)
--- NOTE | 2025-06-05 17:17 | ED.RN ---
This RN called to room, pt states she has a ride outside and needs to leave now. Pt refused PO Keflex, refused discharge vitals
[2025-06-05 17:44] LABS: Red Blood Cells-Urine 5-10 SEEN /hpf (0-5); Squamous Epithelial Cells - UA 0-5 SEEN /hpf (5-10)
== END 2025-06-05 17:20 | disposition home or self-care (01) ==
PROVIDERS: Emergency Provider Emergency Medicine; PCP Family Medicine; Visit Provider Emergency Medicine
DX: T83.098A Other mechanical complication of other urinary catheter, initial encounter (principal); R00.0 Tachycardia, unspecified; F17.210 Nicotine dependence, cigarettes, uncomplicated; F32.A Depression, unspecified; Z79.899 Other long term (current) drug therapy; Z90.49 Acquired absence of other specified parts of digestive tract; N39.0 Urinary tract infection, site not specified
CPT/HCPCS: 81001; 99284

== ENCOUNTER 2025-07-01 12:37 | Emergency (ER) | payer MEDICAID, SELFPAY ==
[2025-07-01 12:39] VITALS: BP 129/81; PULSE 97; RESP 18; TEMP 37.2; O2SAT 97; BMI 26.6
--- NOTE | 2025-07-01 12:50 | ED.RN ---
PT ALERT AND ORIENTED WHILE TALKING TO THIS NURSE. THIS NURSE IS LEAVING ROOM,PT STATES THEY CLONED ME AND MY PHONE
--- NOTE | 2025-07-01 13:08 | EX.ED.DYSGE1 ---
HPI History of Present Illness Chief Complaint: Substance Abuse Informant: patient Onset/Context/Timing Onset: Today Timing: Continuous Quality: Paranoid ideations Location: Generalized Worsened by: Nothing Relieved by: Nothing Narrative Narrative: Patient presents with paranoid ideations that began today. Patient states that she used methamphetamines earlier today. Patient states that people have been accusing her of [facility]. Patient adamantly denies this. Patient has been having other paranoid ideations as well. Patient denies any suicidal or homicidal ideations. Patient denies any fevers or chills. Patient denies any chest pain or shortness of breath. Patient denies any nausea or vomiting. PFSH PFSH Medical History Functional dyspepsia Acute embolism and thrombosis of unspecified deep veins of left lower extremity Cognitive communication deficit Arthropathy Bipolar 1 disorder Muscle weakness (generalized) Hepatitis Smoker Asthma IVDU (intravenous drug user) Polysubstance (including opioids) dependence, daily use Opiate dependence Depression Alcohol abuse Home Medications ?Medication ?Instructions ?Recorded ?Last Taken ?Type albuterol sulfate 90 mcg/actuation 2 puff inhalation Q4H PRN SOB 05/17/23 Unknown History aerosol inhaler (Ventolin HFA) amitriptyline 10 mg tablet 10 mg PO QHS 05/17/23 Unknown History baclofen 20 mg tablet 20 mg PO DAILY 05/17/23 Unknown History fluorometholone 0.1 % eye 1 drp ophthalmic (eye) BID 05/17/23 Unknown History drops,suspension gabapentin 800 mg tablet 800 mg PO 4X/DAY 05/17/23 Unknown History ibuprofen 800 mg tablet 800 mg PO Q8H PRN pain 05/17/23 Unknown History loratadine 10 mg tablet 10 mg PO DAILY PRN allergy symptoms 05/17/23 Unknown History nystatin 100,000 unit/gram topical 1 applic topical BID 05/17/23 Unknown History powder promethazine 25 mg tablet 12.5 mg PO Q4H PRN allergy symptoms 05/17/23 Unknown History atorvastatin 20 mg tablet 20 mg PO DAILY 01/19/24 Unknown History coenzyme Q10 100 mg capsule 100 mg PO DAILY 01/19/24 Unknown History multivitamin 1 tab PO DAILY 01/19/24 Unknown History pantoprazole 40 mg tablet,delayed 40 mg PO DAILY 01/19/24 Unknown History release acetaminophen 325 mg tablet 650 mg PO Q6H PRN fever or pain 03/19/25 Unknown History aluminum hydrox-magnesium carb 95 30 ml PO Q4H PRN dyspepsia 03/19/25 Unknown History mg-358 mg/15 mL oral suspension (Acid Gone Antacid) benztropine 0.5 mg tablet 0.5 mg PO QHS 03/19/25 Unknown History dextrose 40 % oral gel (Glutose-15) 15 g PO Q15M PRN hypoglycemia 03/19/25 Unknown History diazepam 10 mg tablet 10 mg PO DAILY PRN alcohol 03/19/25 Unknown History withdrawal diazepam 10 mg tablet 10 mg PO QHS 03/19/25 Unknown History duloxetine 60 mg capsule,delayed 120 mg PO BID 03/19/25 Unknown History release furosemide 20 mg tablet 20 mg PO DAILY 03/19/25 Unknown History glucagon 1 mg solution for 1 mg IM Q20M PRN hypoglycemia 03/19/25 Unknown History injection (Glucagon Emergency Kit) guaifenesin 100 mg/5 mL oral 200 mg PO Q4H PRN congestion 03/19/25 Unknown History liquid (Adult Tussin Chest Congestion) loperamide 2 mg capsule 2 mg PO Q6H PRN loose stool 03/19/25 Unknown History (Anti-Diarrheal (loperamide)) melatonin 5 mg tablet 10 mg PO QHS 03/19/25 Unknown History oxybutynin chloride 15 mg 15 mg PO DAILY 03/19/25 Unknown History tablet,extended release 24 hr polyvinyl alcohol-povidone 0.5 1 - 2 drp EACH EYE Q1H PRN dry 03/19/25 Unknown History %-0.6 % eye drops (Clear Eyes eye(s) Natural Tears) sennosides 8.6 mg-docusate sodium 2 tab-cap PO BID 03/19/25 Unknown History 50 mg capsule (Senna Plus) sulfamethoxazole 800 1 tab PO BID #6 TABLETS 03/19/25 Unknown Rx mg-trimethoprim 160 mg tablet cephalexin 500 mg capsule 500 mg PO BID 5 days #10 caps 04/01/25 Unknown Rx cephalexin 500 mg capsule 500 mg PO Q8H 7 days #21 caps 04/12/25 Unknown Rx cephalexin 500 mg capsule 500 mg PO Q6 #28 CAPSULES 06/05/25 Unknown Rx Allergy/AdvReac Type Severity Reaction Status Date / Time hydrocodone bitartrate (From Allergy Itching Verified 06/05/25 14:21 Vicodin) Surgical History Chronic suprapubic catheter History of cholecystectomy Social History (Updated 07/01/25 @ 13:[address] Nick Angelo, ) household members: none Smoking Status: Current every day smoker tobacco type: cigarettes substance use type: methamphetamine ROS ROS ED Constitutional Constitutional ED: Denies chills or fever(s) Eyes Eyes: Denies blurry vision or change in vision ENT ENT ED: Denies rhinorrhea or sore throat Cardiovascular Cardiovascular: Denies chest pain or palpitations Respiratory/Chest Respiratory/Chest: Denies cough or dyspnea Gastrointestinal Gastrointestinal: Denies nausea or vomiting Genitourinary Genitourinary ED: Denies dysuria or hematuria Musculoskeletal Musculoskeletal: Denies back pain or neck pain Integumentary Denies abscess or rash Neurologic Neurologic: Denies headache(s) or weakness Allergic/Immunologic Allergic/Immunologic ED: Denies mouth swelling or urticaria EXAM Physical Exam Const Vital Signs: 07/01/25 12:39 07/01/25 14:39 Temperature 99 F Temperature Source Oral Pulse Rate 97 85 Respiratory Rate 18 Blood Pressure 129/81 H 114/89 H Blood Pressure Mean 97 97 Pulse Ox 97 100 Oxygen Delivery Method Room Air Room Air Positive well nourished and well developed General Appearance ED: well developed and NAD HEENT Reports dry mucous membranes Mouth ED: Yes dry mucous membranes Mouth: dry mucous membranes Neck supple and no JVD Resp normal respiratory effort and clear to auscultation bilaterally Cardio regular rhythm Rate: tachycardic GI non-tender and non-distended Palpation: soft Extremity normal to inspection General Extremety ED: Negative for edema or tenderness General Extremity: Negative for edema Neuro CN's II-XII intact bilaterally and no sensory deficits noted Sensorium / Orientation: alert Motor Exam: strength 5/5 throughout Psych Appearance: grossly normal Attitude: agitated Activity / Motor Behavior: appropriate eye contact and fidgetting Speech: excessive Mood & Affect: anxious and labile affect Thought Process: illogical Thought Content: No suicidality and No homicidality MDM MDM MDM Narrative Medical decision making narrative: Medical screening labs will be obtained. CBC will be obtained to assess for leukocytosis and anemia. Basic metabolic profile will be obtained to assess for electrolyte abnormality and renal function. Serum hCG will be obtained to assess for . Urinalysis will be obtained to assess for urinary tract infection and hematuria. Serum alcohol level will be obtained to assess for alcohol intoxication. Urine drug screen will be obtained to assess for substance abuse. Lab Data Attestation: I reviewed the patient's lab results. Lab results narrative: CBC was reviewed. There is a mild anemia with a hemoglobin of 11.5 and hematocrit 32.4. The remainder is within normal limits. Basic metabolic profile was reviewed. Potassium slightly low at 3.0. The remainder is within normal limits. Serum hCG was reviewed and was negative. Urinalysis was reviewed. Leukocyte esterase was 500. There are 10-25 white blood cells. There are no bacteria noted. Serum alcohol level was reviewed and was less than 10.1. Urine drug screen was reviewed and was positive for amphetamines, benzodiazepines, and cannabinoids. Labs: Laboratory Results - last 24 hr 07/01/25 07/01/25 14:16 14:35 WBC 4.7 RBC 3.48 L Hgb 11.5 L Hct 32.4 L MCV 93.1 MCH 33.0 H MCHC 35.5 RDW Std Deviation 43.3 RDW Coeff of Katie 12.9 Plt Count 164 MPV 10.0 Immature Gran % (Auto) 0.200 Neut % (Auto) 50.5 Lymph % (Auto) 33.0 [place] % (Auto) 10.9 H Eos % (Auto) 4.3 Baso % (Auto) 1.1 H Absolute Neuts (auto) 2.4 Absolute Lymphs (auto) 1.54 Nucleated RBC % 0 Sodium 137 Potassium 3.0 L Chloride 100 Carbon Dioxide 25.0 Anion Gap 12 BUN 5 Creatinine 0.57 L Estim Creat Clear Calc 132.09 Est GFR (MDRD) Non-Af 111 BUN/Creatinine Ratio 8.4 L Glucose 86 Calcium 9.3 Serum , Qual NEGATIVE Urine Color Yellow Urine Clarity Clear Urine pH 6.5 Ur Specific [place] 1.010 Urine Protein 30 H Urine Glucose (UA) Normal Urine Ketones Negative Urine Occult Blood 50 H Urine Nitrite Positive H Urine Bilirubin Negative Urine Urobilinogen Normal Ur Leukocyte Esterase 500 H Urine RBC 0 SEEN Urine WBC 10-25 SEEN Ur Squamous Epith Cells 0-5 SEEN Amorphous Sediment 1+ Urine Bacteria 0 SEEN Urine Mucus 0 SEEN Urine Opiates Screen NEGATIVE U Buprenorphine Qual NEGATIVE Ur Oxycodone Screen NEGATIVE Urine Methadone Screen NEGATIVE Urine Fentanyl Screen NEGATIVE Ur Barbiturates Screen NEGATIVE Ur Phencyclidine Scrn NEGATIVE Ur Amphetamines Screen PRESUMPTIVE POSITIVE U Benzodiazepines Scrn PRESUMPTIVE POSITIVE Urine Cocaine Screen NEGATIVE U Cannabinoids Screen PRESUMPTIVE POSITIVE Ethyl Alcohol < 10.1 Management Discussion w/another healthcare provider: trailhead construction worker/Case management Treatment and Re-Evaluation :: trailhead construction worker was in to evaluate the patient. She felt the patient is safe for discharge. Patient was advised of her findings. Urine culture was ordered. Patient states her urinalysis always shows an infection. Patient states she is not currently on antibiotics. Patient was advised that if her culture does grow bacteria, she will be contacted for antibiotics at that time. Patient was instructed to follow-up with her primary care physician in 5 to 7 days. Patient was also given referral for 180. Patient was instructed to return if worse in any way. Patient understood and was agreeable with the plan. All questions were answered. Discharge Plan Triage Chief Complaint: Substance Abuse ED Provider: Nick Angelo Dx/Rx/DC Orders Clinical Impression: Paranoid ideation, Methamphetamine use Instructions: ED Drug Abuse Prescriptions: No Action albuterol sulfate [Ventolin HFA] 90 mcg/actuation HFA aerosol inhaler 2 puff INHALATION Q4H PRN (Reason: SOB) amitriptyline 10 mg tablet 10 mg PO QHS baclofen 20 mg tablet 20 mg PO DAILY fluorometholone 0.1 % drops,suspension 1 drp ophthalmic (eye) BID gabapentin 800 mg tablet 800 mg PO 4X/DAY ibuprofen 800 mg tablet 800 mg PO Q8H PRN (Reason: pain) Rx Instructions: WITH FOOD OR MILK loratadine 10 mg tablet 10 mg PO DAILY PRN (Reason: allergy symptoms) nystatin 100,000 unit/gram powder 1 applic TOPICAL BID promethazine 25 mg tablet 12.5 mg PO Q4H PRN (Reason: allergy symptoms) multivitamin Tablet 1 tab PO DAILY atorvastatin 20 mg tablet 20 mg PO DAILY pantoprazole 40 mg tablet,delayed release (DR/EC) 40 mg PO DAILY coenzyme Q10 100 mg capsule 100 mg PO DAILY benztropine 0.5 mg tablet 0.5 mg PO QHS diazepam 10 mg tablet 10 mg PO QHS duloxetine 60 mg capsule,delayed release(DR/EC) 120 mg PO BID furosemide 20 mg tablet 20 mg PO DAILY guaifenesin [Adult Tussin Chest Congestion] 100 mg/5 mL liquid 200 mg PO Q4H PRN (Reason: congestion) Glucagon Emergency Kit (human) 1 mg recon soln 1 mg IM Q20M PRN (Reason: hypoglycemia) Rx Instructions: until target blood sugar attained dextrose [Glutose-15] 40 % gel 15 g PO Q15M PRN (Reason: hypoglycemia) Rx Instructions: until symptoms of low blood sugar are controlled Acid Gone Antacid 95-358 mg/15 mL suspension 30 ml PO Q4H PRN (Reason: dyspepsia) melatonin 5 mg tablet 10 mg PO QHS oxybutynin chloride 15 mg tablet extended release 24hr 15 mg PO DAILY Senna Plus 8.6-50 mg capsule 2 tab-cap PO BID loperamide [Anti-Diarrheal (loperamide)] 2 mg capsule 2 mg PO Q6H PRN (Reason: loose stool) Rx Instructions: administer after each loose stool until symptoms controlled; do not exceed 8 mg per 24 hrs diazepam 10 mg tablet 10 mg PO DAILY PRN (Reason: alcohol withdrawal) Rx Instructions: IN ADDITION TO ROUTINE DOSE Clear Eyes Natural Tears 0.5-0.6 % drops 1 - 2 drp EACH EYE Q1H PRN (Reason: dry eye(s)) acetaminophen 325 mg tablet 650 mg PO Q6H PRN (Reason: fever or pain) sulfamethoxazole-trimethoprim 800-160 mg tablet 1 tab PO BID Qty: 6 0RF cephalexin 500 mg capsule 500 mg PO BID 5 Days Qty: 10 0RF cephalexin 500 mg capsule 500 mg PO Q8H 7 Days Qty: 21 0RF cephalexin 500 mg capsule 500 mg PO Q6 Qty: 28 0RF Primary Care Provider: Taye Pinto Referrals: Taye Pinto DO [Primary Care Provider, Family Practice] - 5-7 Days [facility] [Non-Staff, None] - As soon as possible Print Language: Italian Disposition Disposition: Home, Self Care
--- NOTE | 2025-07-01 14:25 | CM.ED ---
Social Work SW met with patient who was very tearful and emotional. 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 Patient states her mind is starting to clear but she continues to be upset as she feels that people at [facility] think she has given drugs to other residents. Patient denies this, stating she would never give anyone illicit drugs because she would not wish the addict life on anyone else. Patient also states she is worried to go back to [facility] as she has told staff members other patients names of who has drugs and who is dealing drugs and feels that everyone is upset with her. Patient talked at a rapid pace, often repeating self, had a difficult time sitting still, had a flight of ideas. Patient did state that she is interested in ways to keep herself busy as she often feels bored and lonely. Patient expressed starting to attend quaker and wanting to attend AA meetings. Patient was given a list of AA meetings in [place] and information for [facility]. No further needs identified at this time. Kiki Arndt, [employer]PER[employer] ENGINEER, CEREAL MAKER
[2025-07-01 14:30] LABS: Hematocrit 32.4 % (37-47); Hemoglobin 11.5 g/dL (12.0-15.0); Immature Granulocytes Count 0.010 X10^3/uL (0.0-0.0); Mean Corp Hgb Conc 35.5 g/dL (32-36); Mean Corpuscular Volume 93.1 fL (81-99); Mean Platelet Vol. 10.0 fl (6.2-12.0); NRBC Flagged by Analyzer 0 % (0-5); Platelet Count 164 K/mm3 (150-450); RBC Distribution Width CV 12.9 % (11.6-14.6); RBC Distribution Width SD 43.3 fl (35.1-43.9); Red Blood Count 3.48 M/mm3 (4.2-5.4); White Blood Count 4.7 K/mm3 (4.4-11.0)
[2025-07-01 14:35] LABS: Internal QC Validated? YES +Cl - CLEAR BKGD
[2025-07-01 14:36] LABS: Pregnancy, Serum, hCG Quali. NEGATIVE Negative; Record Kit Lot#, Serum Preg. 0000980607
[2025-07-01 14:39] VITALS: BP 114/89; PULSE 85; O2SAT 100
[2025-07-01 14:42] LABS: Mucous, Urine 0 SEEN /hpf (<or=2+); Red Blood Cells-Urine 0 SEEN /hpf (0-5)
--- NOTE | 2025-07-01 14:43 | ED.RN ---
Bag to lomax catheter changed due to leakage of old bag.
[2025-07-01 14:44] LABS: Color, Urine Yellow (Yellow); Glucose, Dipstick Normal (Normal); Ketone-Dipstick Negative (Negative); Leukocyte Esterase-Dipstick 500 /ul (Negative); Nitrite-Dipstick Positive (Negative); Occult Blood-Urine 50 /ul (Negative); Protein-Dipstick 30 mg/dl (Negative); Specific Gravity, Urine 1.010 (1.002-1.030); Urine Bilirubin Dipstick Negative (Negative)
[2025-07-01 14:54] LABS: Squamous Epithelial Cells - UA 0-5 SEEN /hpf (5-10)
[2025-07-01 15:05] LABS: Barbiturate Urine NEGATIVE (< 200 ng/mL); Benzodiazepine Urine PRESUMPTIVE POSITIVE (< 200 ng/mL); PCP Urine NEGATIVE (< 25 ng/mL); THC Urine PRESUMPTIVE POSITIVE (< 50 ng/mL)
[2025-07-01 15:05] LABS: Alcohol, Blood (Medical)-Serum < 10.1 mg/dL (<=10.0)
[2025-07-01 15:06] LABS: Anion Gap 12 (5-15); BUN 5 mg/dL (4-19); BUN/Creat Ratio 8.4 RATIO (10-20); Calcium,Total 9.3 mg/dL (7.6-11.0); Carbon Dioxide 25.0 mmol/L (21.0-32.0); Chloride 100 mmol/L (98-108); Estimated Creatinine Clearance 132.09 ml/min (50-250); Glucose 86 mg/dL (70-99); Potassium 3.0 mmol/L (3.3-5.1)
[2025-07-01 16:00] VITALS: BP 117/83; PULSE 98; O2SAT 98
--- NOTE | 2025-07-01 17:45 | ED.RN ---
Report called to Francis Baxter
[2025-07-01 17:48] VITALS: BP 117/83; PULSE 98; RESP 18; TEMP 37.2; O2SAT 98
--- NOTE | 2025-07-01 17:58 | PCA ---
THIS PHARMACY GRADUATE INTERN CALLED [facility] ABOUT PTS RIDE. PHYSICIANS CHANGED THE ASSIGNMENT OF THE RIDE TO THE ON COMING CREW WHO COMES ON AT 1800. SO NOW ETA FOR PT RIDE IS [phone]
[2025-07-01 18:00] VITALS: BP 110/85; PULSE 98; O2SAT 100
== END 2025-07-01 18:33 | disposition home or self-care (01) ==
PROVIDERS: Emergency Provider Emergency Medicine; PCP Family Medicine; Visit Provider Emergency Medicine
DX: F23 Brief psychotic disorder (principal); F15.90 Other stimulant use, unspecified, uncomplicated; F17.210 Nicotine dependence, cigarettes, uncomplicated; F32.A Depression, unspecified; Z79.899 Other long term (current) drug therapy
CPT/HCPCS: 80048; 80307; 81001; 82077; 84703; 85025; 87086; 87088; 99284